=== PATIENT | male | born 1975 | race Caucasian/White ===

== ENCOUNTER 2016-04-17 16:54 | Inpatient (IN) | payer OTHER ==
[~2016-04-17] VITALS: Ht 180.3 cm; Wt 93.0 kg
[~2016-04-17 16:54] MED LIST: CYCL10TA6 PO; DIME1CAP2 PO; FLUO40CA8 PO; LEVE250T PO; PRED10TA PO; RXC30 PO
[2016-04-17] MEDS ORDERED: METHYLPREDNISOLONE 125 MG VIAL IV STA (17:21)
--- NOTE | 2016-04-17 17:25 | EMERGENCY ROOM VISIT NOTE ---
History Report prepared by Dory: Rebeca Carter Under the Supervision of: Dr. Isaak Benson M.D. First contact with patient: 17:09 Chief Complaint: DIZZY Stated Complaint: DIZZINESS History of Present Illness The patient is a 40 year old male who presents to the Emergency Room with complaints of persistent dizziness starting a few days REHAB THERAPIST. The patient's states that the patient has multiple sclerosis and is currently having a relapse. She states the patient is treated with solumedrol treatment about every 3-5 months as needed for his symptoms. The patient states that he has been having increase dizziness along with vision changes over the last few days causing him to fall today along with yesterday. He denies that he lost consciousness during his fall but states he did hit his head. The patient's states he has been sleeping more recently and that he has had increased weakness in his lower extremities compared to his baseline recently. She states his symptoms are similar to when he needs a solumedrol treatment in the past. The patient states that after receiving his solumedrol treatments his symptoms usually improve in about 3 days. The patient denies any current abdominal pain. Source of History: patient, spouse/significant other () Onset: few days REHAB THERAPIST Position: other (global) Timing: other (persistent) Associated Symptoms: + weakness (lower extermities), No LOC, No abdominal pain Note: Associated symptoms: vision changes Review of Systems All systems have been listed, reviewed, and are negative other than those previously mentioned. Please see Additional Medical History Sheet. Past Medical & Surgical Medical Problems: (1) RUBI (acute kidney injury) (2) Chronic pain syndrome (3) Depression (4) Encephalopathy (5) Exacerbation of multiple sclerosis (6) Hypercalcemia (7) Multiple sclerosis (8) Seizure disorder Family History Diabetes mellitus Hypertension Kidney stones Social History Smoking Status: Never Smoker Alcohol Use: none Drug Use: none Marital Status: Housing Status: lives with family Occupation Status: disabled Current/Historical Medications Scheduled Dimethyl Fumarate (Tecfidera), 240 MG PO Q12 Fluoxetine (Prozac), 40 MG PO DAILY Levetiracetam (Keppra), 2 TAB PO DAILY Oxycodone HCl (Oxycodone HCl), 30 MG PO Q6H Prednisone (Prednisone), 0 PO UD Scheduled PRN Cyclobenzaprine Hcl (Flexeril), 10 MG PO TID PRN for Pain Allergies Coded Allergies: Aspirin (Verified Allergy, Severe, HIVES/JES'S SYNDROME, 04/17/16) Given for fever while pt had varicella Physical Exam Vital Signs Date Time Temp Pulse Resp B/P Pulse Ox O2 Delivery O2 Flow Rate FiO2 04/17/16 21:37 Room Air 04/17/16 21:25 90 18 135/89 94 Room Air 04/17/16 19:51 81 16 143/98 95 Room Air 04/17/16 18:06 87 16 172/102 94 Room Air 04/17/16 17:52 88 04/17/16 17:00 36.8 87 20 140/88 97 Room Air Physical Exam GENERAL: Patient appears to be weak and slow to respond but is oriented and appropriate. SKIN: No erythema, pallor, cyanosis or rash HEENT: Normal head, pupils equal, reactive to light and accommodation. Ears normal. Oral cavity and posterior pharynx appear normal. Neck: Without adenopathy, no neck vein distention. LUNGS: Clear to auscultation. No wheezes, no rales, no rhonchi. HEART: No murmurs. No gallops. No rubs ABDOMEN: No masses, no rebound, no hepatomegaly or splenomegaly. EXTREMITIES: Patient has huma weakness in all four extremities, much more pronounced in lower extremities, and right arm is slightly stronger. NEUROLOGIC: Cranial nerves II-XII within normal limits. No gross motor sensory function deficits. Medical Decision & Procedures ER Provider Diagnostic Interpretation: X ray results are stated below per my interpretation and the radiologist's interpretation. CHEST ONE VIEW PORTABLE CLINICAL HISTORY: MS weakness dyspnea COMPARISON STUDY: January 2016 FINDINGS: Minimal infiltrate medial left base. Mild elevation left hemidiaphragm. Lungs otherwise appear clear. IMPRESSION: Small parenchymal infiltrate medial left base. Electronically signed by: Huma Dumont M.D. 04/17/2016 5:58 PM Dictated Date/Time: 04/17/2016 5:57 PM Laboratory Results 04/17/16 17:35 04/17/16 17:35 Test 04/17/16 17:35 04/17/16 18:50 04/17/16 22:16 Red Blood Count 4.66 M/uL (4.7-6.1) Mean Corpuscular Volume 86.5 fL (80-100) Mean Corpuscular Hemoglobin 30.0 pg (25-34) Mean Corpuscular Hemoglobin Concent 34.7 g/dl (32-36) RDW Standard Deviation 39.6 fL (36.4-46.3) RDW Coefficient of Variation 12.4 % (11.5-14.5) Mean Platelet Volume 10.3 fL (7.4-10.4) Anion Gap 9.0 mmol/L (3-11) Est Creatinine Clear Calc Drug Dose 78.2 ml/min Estimated GFR () 65.6 Estimated GFR (Non- 56.6 BUN/Creatinine Ratio 13.4 (10-20) Calcium Level 13.7 mg/dl (8.5-10.1) Total Bilirubin 0.7 mg/dl (0.2-1) Aspartate Amino Transf (AST/SGOT) 124 U/L (15-37) Alanine Aminotransferase (ALT/SGPT) 174 U/L (12-78) Troponin I < 0.015 ng/ml (0-0.045) Total Protein 7.8 gm/dl (6.4-8.2) Albumin 3.9 gm/dl (3.4-5.0) Globulin 3.9 gm/dl (2.5-4.0) Albumin/Globulin Ratio 1.0 (0.9-2) Urine Color DK YELLOW Urine Appearance CLEAR (CLEAR) Urine pH 6.5 (4.5-7.5) Urine Specific [place] 1.014 (1.000-1.030) Urine Protein NEG (NEG) Urine Glucose (UA) NEG (NEG) Urine Ketones TRACE (NEG) Urine Occult Blood NEG (NEG) Urine Nitrite NEG (NEG) Urine Bilirubin NEG (NEG) Urine Urobilinogen POS (NEG) Urine Leukocyte Esterase NEG (NEG) 25-Hydroxy Vitamin D Total 24.6 ng/ml (30-100) Parathyroid Hormone (Intact) 291.0 pg/mL (11.1-79.5) Hepatitis B Surface Antigen NEG (NEG) Hepatitis C Antibody NEG (NEG) Laboratory results as stated above per my review. Medications Administered Medications (Trade) Dose Ordered Sig/Jas Route Start Time Stop Time Status Last Admin Dose Admin Methylprednisolone Sodium Succinate (Solu-Medrol IV) 125 mg NOW STAT IV 04/17/16 17:21 04/17/16 17:22 DC 04/17/16 18:00 125 MG Ceftriaxone Sodium (Rocephin Inj) 1 gm NOW STAT IV 04/17/16 20:02 04/17/16 20:04 DC 04/17/16 20:41 1 GM ECG Indication: other (dizziness) Rate (beats per minute): 89 Rhythm: normal sinus Findings: no acute ischemic change, no ectopy, other (Minimum voltage criteria for LVH) ED Course 1708: Past medical records reviewed. The patient was evaluated in room B11. A complete history and physical examination was performed. 1720: Ordered Solu-Medrol IV 125 mg IV. 1847: I reevaluated the patient and he still appeared to be confused and the Solu-Medrol has not appeared to have any effect yet. 2001: Ordered Rocephin 1 gm IV. 2004: I reevaluated the patient and discussed his test results and that he would be admitted for further evaluation and management of his symptoms. 2039: I discussed the case with Dr. Perry VUONG Hospitalist. He agreed to evaluate the patient for further management and care. Medical Decision Nurses notes reviewed. Medical history sheet reviewed. Differential diagnosis includes but is not limited to: Metabolic disorder, infection and MS flair. Old records were reviewed. The patient has had multiple bouts similar to this in the past and has required admission with IV steroids. Multiple labs come imaging and EKG were obtained. The patient was given IV Solu -Medrol. Chest x-ray reveals a small left lower lobe infiltrate. White count is slightly elevated but less than it was in the past. Calcium is significantly elevated. The patient will require admission for the above problems. Case was discussed with the patient, and hospitalist. Consults Time Called: 1999 Consulting Physician: Dr. Perry VUONG Hospitalist Returned Call: 2039 I discussed the case with Dr. Perry VUONG Hospitalist. He agreed to evaluate the patient for further management and care. Impression Primary Impression: Exacerbation of multiple sclerosis Additional Impressions: Pneumonia Hyperkalemia Scribe Attestation The scribe's documentation has been prepared under my direction and personally reviewed by me in its entirety. I confirm that the note above accurately reflects all work, treatment, procedures, and medical decision making performed by me. Departure Information Dispostion Being Evaluated By Hospitalist Aryan Quintero M.D. (PCP) Patient Instructions My [facility] Problem Qualifiers
[2016-04-17 17:58] LABS: HEMATOCRIT 40.3 % (42-52); MEAN CELL VOLUME 86.5 fL (80-100); MEAN CORPUSCULAR HGB CONC 34.7 g/dl (32-36); MEAN PLATELET VOLUME 10.3 fL (7.4-10.4); PLATELET COUNT 326 K/uL (130-400); RED BLOOD COUNT 4.66 M/uL (4.7-6.1); WHITE BLOOD COUNT 11.86 K/uL (4.8-10.8)
--- NOTE | 2016-04-17 17:59 | DIAGNOSTIC IMAGING REPORT ---
CHEST ONE VIEW PORTABLE CLINICAL HISTORY: MS weakness dyspnea COMPARISON STUDY: January 2016 FINDINGS: Minimal infiltrate medial left base. Mild elevation left hemidiaphragm. Lungs otherwise appear clear. IMPRESSION: Small parenchymal infiltrate medial left base. Electronically signed by: Enrique Dumont M.D. 04/17/2016 5:58 PM Dictated Date/Time: 04/17/2016 5:57 PM
[2016-04-17] MEDS ORDERED: PRED10TA PO (18:12)
[2016-04-17 18:26] LABS: ALKALINE PHOSPHATASE 116 U/L (45-117); ALT/SGPT 174 U/L (12-78); AST/SGOT 124 U/L (15-37); BLOOD UREA NITROGEN 20 mg/dl (7-18); BUN/CREATININE RATIO 13.4 (10-20); CALCIUM 13.7 mg/dl (8.5-10.1); CARBON DIOXIDE 28 mmol/L (21-32); CHLORIDE 102 mmol/L (98-107); GLUCOSE 157 mg/dl (70-99); POTASSIUM 4.4 mmol/L (3.5-5.1); SODIUM 139 mmol/L (136-145)
[2016-04-17 19:03] LABS: URINE APPEARANCE CLEAR (CLEAR); URINE BILIRUBIN NEG (NEG); URINE COLOR DK YELLOW; URINE NITRITE NEG (NEG); URINE PH 6.5 (4.5-7.5); URINE SPECIFIC GRAVITY 1.014 (1.000-1.030); UROBILINOGEN POS (NEG); ZZUR CULT IF INDIC CLEAN CATCH NO
[2016-04-17 19:06] LABS: MANUAL MICROSCOPIC REQUIRED? NO; REVIEW REQ? NO
[2016-04-17] MEDS ORDERED: CEFTRIAXONE SOD INJ 1 GM ADDVIAL IV STA (20:02)
[2016-04-17 21:37] VITALS: Ht 180.3 cm; Wt 93.0 kg
[2016-04-17] MEDS ORDERED: ALUMINUM/MAGNESIUM/SIMETH (MAALOX MAX) 30 ML UDC PO PRN (22:15)
[2016-04-17] MEDS ORDERED: MAGNESIUM HYDROXIDE SUSP 30 ML UDC PO PRN (22:15)
[2016-04-17] MEDS ORDERED: ACETAMINOPHEN 325 MG TAB PO PRN (22:15)
[2016-04-17] MEDS ORDERED: POLYETHYLENE (MIRALAX) 17 GM PACK PO PRN (22:15)
[2016-04-17] MEDS ORDERED: ONDANSETRON INJ 2 MG/ML 2 ML VIAL IV PRN (22:15)
[2016-04-18] VITALS (7 sets, daily range): BP systolic 143–158; BP diastolic 71–94; PULSE 81–106; TEMP 36.5–37; O2SAT 93–97
--- NOTE | 2016-04-18 00:42 | History and Physical ---
History & Physical Date & Time of Service: Apr 18, 2016 at 00:30 Chief Complaint: Dizziness Primary Care Physician: Aryan Torres M.D. History of Present Illness Source: patient 40-year-old male, with a history of multiple sclerosis, who presents to the emergency department today with worsening lightheadedness and dizziness. He notes that this is been going on for the past 3 weeks, but got especially worse today which led him to come to the emergency department. He describes his dizziness, as "the room is spinning". He denies tinnitus, hearing changes. He notes that he has been having difficulty with balance. He notes that this does worsen with his MS flares. He does have some baseline gait disturbance at baseline, noting that when he walks he does tend to have some imbalance towards the left side. This is also worsened since the past 3 weeks. He does note that he has baseline left-sided weakness in both his upper and lower extremities at baseline. He denies any sensory impairment. With his dizziness, he also has blurred vision, but denies double vision. He feels that his speech is good, and has not had difficulty forming words, articulating words, or understanding speech. Prior to the onset of the symptoms, he feels that he was in his usual state of health. He denies any pain. He denies any fevers chills or night sweats He says that his appetite has been good. He has not had any difficulty with urination. He has not had any diarrhea or constipation. Past Medical/Surgical History Medical Problems: (1) Chronic pain syndrome Status: Chronic (2) Depression Status: Chronic (3) Multiple sclerosis Status: Chronic (4) Seizure disorder Status: Chronic Family History Diabetes mellitus Hypertension Kidney stones Social History Smoking Status: Never Smoker Smokeless Tobacco Use: No Alcohol Use: none Drug Use: none Marital Status: Housing status: lives with family Occupational Status: disabled Immunizations History of Influenza Vaccine: Yes History of Tetanus Vaccine?: UTD Tetanus Immunization Date: Feb 02, 2006 History of Pneumococcal: No History of Hepatitis B Vaccine: No Multi-Drug Resistant Organisms History of MDRO: No Allergies Coded Allergies: Aspirin (Verified Allergy, Severe, HIVES/JES'S SYNDROME, 04/17/16) Given for fever while pt had varicella Home Medications Scheduled Dimethyl Fumarate (Tecfidera), 240 MG PO Q12 Fluoxetine (Prozac), 40 MG PO DAILY Levetiracetam (Keppra), 2 TAB PO DAILY Oxycodone HCl (Oxycodone HCl), 30 MG PO Q6H Prednisone (Prednisone), 0 PO UD Scheduled PRN Cyclobenzaprine Hcl (Flexeril), 10 MG PO TID PRN for Pain Review of Systems A 10 point review of systems was negative unless stated above in the history of present illness Physical Exam Vital Signs Date Time Temp Pulse Resp B/P Pulse Ox O2 Delivery O2 Flow Rate FiO2 04/18/16 00:21 89 18 140/86 94 Room Air 04/17/16 22:38 93 16 147/86 94 Room Air 04/17/16 21:37 Room Air 04/17/16 21:25 90 18 135/89 94 Room Air 04/17/16 19:51 81 16 143/98 95 Room Air 04/17/16 18:06 87 16 172/102 94 Room Air 04/17/16 17:52 88 04/17/16 17:00 36.8 87 20 140/88 97 Room Air General Appearance: WD/WN, no apparent distress, + pertinent finding (patient is overall tired appearing, does fall asleep easily unless stimulated to stay awake but answers questions appropriately) Head: normocephalic, atraumatic Eyes: PERRL (no rapid afferent pupillary defect), + pertinent finding (patient tracks but I'm movements are quite slow and leg behind movement of finger, there is no nystagmus) ENT: hearing grossly normal, pharynx normal Neck: no adenopathy, no JVD Respiratory/Chest: chest non-tender, lungs clear, normal breath sounds Cardiovascular: regular rate, rhythm, no gallop, no murmur Abdomen/GI: normal bowel sounds, non tender, soft Back: normal inspection, no CVA tenderness, no muscle spasm Extremities/Musculoskelatal: no calf tenderness, no pedal edema, + pertinent finding (left-sided weakness in the lower extremity, normal sensation) Neurologic/Psych: alert, normal mood/affect, oriented x 3 (patient is slow to respond, but can eventually answer correctly), + abnormal cerebellar tests ( patient has past pointing, though this may be due to weakness rather than cerebellar dysfunction) Skin: warm/dry, + pallor Lymphatic: no adenopathy Diagnostics Laboratory Results Results Past 24 Hours Test 04/17/16 17:35 04/17/16 18:50 04/17/16 22:16 04/17/16 23:16 Range/Units White Blood Count 11.86 4.8-10.8 K/uL Red Blood Count 4.66 4.7-6.1 M/uL Hemoglobin 14.0 14.0-18.0 g/dL Hematocrit 40.3 42-52 % Mean Corpuscular Volume 86.5 80-100 fL Mean Corpuscular Hemoglobin 30.0 25-34 pg Mean Corpuscular Hemoglobin Concent 34.7 32-36 g/dl RDW Standard Deviation 39.6 36.4-46.3 fL RDW Coefficient of Variation 12.4 11.5-14.5 % Platelet Count 326 130-400 K/uL Mean Platelet Volume 10.3 7.4-10.4 fL Sodium Level 139 136-145 mmol/L Potassium Level 4.4 3.5-5.1 mmol/L Chloride Level 102 98-107 mmol/L Carbon Dioxide Level 28 21-32 mmol/L Anion Gap 9.0 3-11 mmol/L Blood Urea Nitrogen 20 7-18 mg/dl Creatinine 1.50 0.60-1.40 mg/dl Est Creatinine Clear Calc Drug Dose 78.2 ml/min Estimated GFR () 65.6 Estimated GFR (Non- 56.6 BUN/Creatinine Ratio 13.4 10-20 Random Glucose 157 70-99 mg/dl Calcium Level 13.7 8.5-10.1 mg/dl Total Bilirubin 0.7 0.2-1 mg/dl Aspartate Amino Transf (AST/SGOT) 124 15-37 U/L Alanine Aminotransferase (ALT/SGPT) 174 12-78 U/L Alkaline Phosphatase 116 45-117 U/L Troponin I < 0.015 0-0.045 ng/ml Total Protein 7.8 6.4-8.2 gm/dl Albumin 3.9 3.4-5.0 gm/dl Globulin 3.9 2.5-4.0 gm/dl Albumin/Globulin Ratio 1.0 0.9-2 Urine Color DK YELLOW Urine Appearance CLEAR CLEAR Urine pH 6.5 4.5-7.5 Urine Specific [place] 1.014 1.000-1.030 Urine Protein NEG NEG Urine Glucose (UA) NEG NEG Urine Ketones TRACE NEG Urine Occult Blood NEG NEG Urine Nitrite NEG NEG Urine Bilirubin NEG NEG Urine Urobilinogen POS NEG Urine Leukocyte Esterase NEG NEG 25-Hydroxy Vitamin D Total 24.6 30-100 ng/ml Parathyroid Hormone (Intact) 291.0 11.1-79.5 pg/mL Hepatitis B Surface Antigen NEG NEG Lactic Acid Level 1.0 0.4-2.0 mmol/L Ammonia 11.0 11-32 umol/L Microbiology Results 04/17/16 Blood Culture, Received Pending 04/17/16 Blood Culture, Received Pending Diagnostic Radiology CHEST ONE VIEW PORTABLE CLINICAL HISTORY: MS weakness dyspnea COMPARISON STUDY: January 2016 FINDINGS: Minimal infiltrate medial left base. Mild elevation left hemidiaphragm. Lungs otherwise appear clear. IMPRESSION: Small parenchymal infiltrate medial left base. Electronically signed by: Enrique Dumont M.D. 04/17/2016 5:58 PM Dictated Date/Time: 04/17/2016 5:57 PM Impression Assessment and Plan 40-year-old male, with weakness and vertigo He has a background of MS. He also presents with acute kidney injury, hypercalcemia, and transaminitis as well as new left lower lobe pneumonia. Our plan for him is as follows: Dizziness/vertigo - Likely multifactorial ?Demyelination? Patient notes frequent getting dizzy during his MS flares Infective: Left lower lobe pneumonia Metabolic/Endocrine: Uremia, Acute transaminitis, hypercalcemia 13.7, PTH 291 - Based on history, the dizziness can occur with MS flares. However there are other possible etiologies, and as such would hold off on administering high doses of systemic steroids until the patient has been evaluated by neurology. - Continue IV Solumedrol 125 mg until neurology evaluation. - Neurology consultation with Dr. Armijo, who has seen the patient prior Recommendations on whether additional imaging is indicated at this time is appreciated Recommendations on steroid dosing appreciated Multiple sclerosis - Patient takes cyclic prednisone. Currently on day 4/6 of 60 mg prednisone daily. Discontinue, as patient to be getting IV Solu-Medrol - Continue Tecfidera - Continue Keppra Keppra level has been ordered - Neurology consulted for further recommendations on imaging studies and steroid dosing Left lower lobe pneumonia - 1 dose of Rocephin given in the emergency department - We will continue with Rocephin and azithromycin daily - Patient currently saturating well on room air - Administer oxygen by nasal cannula as needed to keep saturations above 94% - Follow daily CBC Acute kidney injury - Creatinine 1.5 Baseline 0.8-0.9 - 1 L normal saline bolus Normal saline 125 ml/hr maintenance - Repeat daily BMP Hypercalcemia - Currently 13.7 Previous calcium levels were reviewed in the EMR. I have never been this high - PTH elevated 291; vitamin D low at 26 - Consistent with primary hyperparathyroidism (possibly secondary though unlikely that he has chronic kidney disease) - IV rehydration as above - Zoledronic acid 4 mg IV stat - Calcitonin 4 mg/kg every 12 hours 48 hours and reassess - Consult endocrinology for further recommendations Transaminitis - AST elevated at 124; ELT elevated at 174 - Normal serum ammonia - Patient denies alcohol use - Serum ammonia level within normal limits - Check hepatitis panel - Consider hepatic ultrasound DVT prophylaxis - Heparin 5000 units subcutaneous twice a day CODE STATUS - Level I full code - Patient has designated Dana Ramirez to make decisions for him if he cannot make him for himself Disposition - Patient requires telemetry monitoring due to elevated calcium levels - OT and PT orders have been placed Resident Physician Supervision Note: I was present with [Name of resident] during the history and exam. I discussed the case with the resident and agree with the findings and plan as documented in the note. Any exceptions or clarifications are listed here: Pt seen examined - case discussed with ER attending and resident He is currently being treated for an MS flare and has had progressive weakness and somnolence Initial labs revealed a calcium level of 13.7 and a markedly elevated PTH with RUBI PNM on initial imaging O/E AAO x 3 although lethargic S1.2 R CTAB NT, ND Globally weak P: Treat hypercalcemia and consult neuro - will hold off on treating an MS flare pending correction of his calcium as this may currently account for the majority of his symptoms IVF and trend BMP Treat for PNM as above Documented By: Lionel Amador Level of Care Telemetry Advanced Directives Existing Living Will: No Existing Power of V/Stol Landing Signal Officer: No Resuscitation Status FULL RESUSCITATION VTE Prophylaxis VTE Risk Assessment Done? Y/N: Yes Risk Level: Moderate Given or contraindicated: Unfractionated heparin SQ
[2016-04-18] MEDS ORDERED: ZOLEDRONIC ACID INJ 4 MG in SODIUM CHLORIDE 0.9% 100ML 100 ML IV ONE (00:45)
[2016-04-18] MEDS ORDERED: AZITHROMYCIN IV 500 MG in DEXTROSE 5% 250ML 250 ML IV ONE (00:45)
[2016-04-18] MEDS ORDERED: SODIUM CHLORIDE 0.9% 1000ML 1,000 ML IV SCH (00:45)
[2016-04-18] MEDS: SODIUM CHLORIDE 0.9% 1000ML 1,000 ML IV SCH ×3 (01:47→17:53)
[2016-04-18] MEDS ORDERED: CALCITONIN SALMON 400 INTER.UNIT/2 ML SQ ONE (04:17)
[2016-04-18 06:40] LABS: BASO % 0.1 %; BASO ABS # 0.01 K/uL (0-0.2); COMPLETE YES; HEMATOCRIT 36.2 % (42-52); IG% 0.6 %; LYMPH % 4.7 %; LYMPH ABS # 0.84 K/uL (1.2-3.4); MEAN CELL VOLUME 87.7 fL (80-100); MEAN CORPUSCULAR HEMOGLOBIN 29.5 pg (25-34); MEAN CORPUSCULAR HGB CONC 33.7 g/dl (32-36); MEAN PLATELET VOLUME 10.3 fL (7.4-10.4); MONO % 6.9 %; NEUT % 87.7 %; PLATELET COUNT 310 K/uL (130-400); RED BLOOD COUNT 4.13 M/uL (4.7-6.1); WHITE BLOOD COUNT 17.77 K/uL (4.8-10.8)
[2016-04-18 06:46] LABS: INR 0.9 (0.9-1.1)
[2016-04-18 07:19] LABS: ALB/GLOB RATIO 1.1 (0.9-2); BUN/CREATININE RATIO 12.6 (10-20); CALCIUM 12.5 mg/dl (8.5-10.1); CREATININE 1.4 mg/dl (0.60-1.40)
[2016-04-18] MEDS: CEFTRIAXONE SOD INJ 1 GM in DEXTROSE 5% ADD-VANTAGE 50ML 50 ML IV SCH (08:03)
[2016-04-18] MEDS: LEVETIRACETAM 250 MG TAB PO SCH (08:04)
[2016-04-18] MEDS: FLUOXETINE HCL 20 MG CAP PO SCH (08:04)
[2016-04-18] MEDS: DIMETHYL FUMARATE 240 MG PO SCH ×2 (08:05→21:02)
[2016-04-18] MEDS: CALCITONIN SALMON 400 INTER.UNIT/2 ML SQ SCH ×2 (08:19→21:02)
[2016-04-18] MEDS: HEPARIN SOD 5000 UNIT/0.5 ML CARP SQ SCH ×2 (08:22→21:00)
[2016-04-18] MEDS ORDERED: METHYLPREDNISOLONE IV 125 MG in SYRINGE 0 ML IV SCH (09:00)
[2016-04-18] MEDS ORDERED: METHYLPREDNISOLONE IV 1,000 MG in DEXTROSE 5% 250ML 250 ML IV SCH (09:00)
[2016-04-18] MEDS ORDERED: OXYCODONE HCL IR 30 MG TAB (IMMEDIATE RELEASE) PO PRN (14:15)
--- NOTE | 2016-04-18 15:42 | CONSULTATION REPORT ---
DATE OF CONSULTATION: 04/18/2016 NEUROLOGY CONSULTATION FOR: Lionel Amador MD. SUBJECTIVE: Mazin is 40 years old, is a former patient of my now retired partner, Dr. Nielson and is known into Dr. Torres's a medical practice in the [place] area. I have seen him episodically over the past [address] Nielson retired and have followed him for 2 problems, i.e., a seizure disorder that was manifested in the remote past and is still a little vague history nowak, but for which he is on Keppra and has done well without any recurrent events. The second and more important issue is his multiple sclerosis which is manifested by a chronic left hemiparesis and occasional flareups of symptoms of worsening hemiparesis and vague disequilibrium over the years, many of which are associated with acute medical illnesses such as infections. He has been on Tecfidera for about 2-3 years now. He has never had any laboratory issues, although unfortunately he is not really very compliant in follow up with outpatient visits or laboratory studies and he is now in for evaluation of disequilibrium, vertigo and apparently contacted his [place] primary care group last week and was placed on some oral prednisone. He has done this in the past, but I was not aware of this. He thinks he got a little better but not at the rate that he usually does on this treatment and brought himself into the ER because of real vertigo sensation without tinnitus, hearing loss, etc. It was felt this might be an MS flare, but again on laboratory studies he was found to have hypercalcemia and elevated PTH level, all consistent with hyperparathyroidism and a mild degree of renal failure and some hepatic dysfunction. Thereis a question of a pneumonia as well. He is now in the hospital on some low dose IV steroids treatment fot his hyperparathyroidism and on certriaxone for assumed pneumonia with an elevated wbc that might reflect eithter the infectionof recent ingestion of steroids. Neurology has been consulted regarding imaging studies and a number of other consultants are getting get involved including endocrinology. PAST MEDICAL HISTORY: Reveals some chronic pain issues due to, I believe lumbar spine surgery; depression, multiple sclerosis and now quiescent seizure disorder. FAMILY HISTORY: Positive for diabetes, hypertension, kidney disease. SOCIAL HISTORY: Reveals him to be a never smoker. He does not consume ethanol. He is . He lives with his family. He is disabled and has not worked in years. IMMUNIZATIONS: Up-to-date. He has no multidrug resistant organism history. ALLERGIES: HE LISTS ALLERGIES TO ASPIRIN. MEDICATIONS: Include Tecfidera 240/12 ours, he has really tolerated this well over the years; fluoxetine; Keppra 500 mg 2 tablets daily; oxycodone 30 mg every 6 hours and prednisone, apparently now on an oral taper, but also on Solu-Medrol, I believe 125 mg daily, after admission. REVIEW OF SYSTEMS: Reveals a vague malaise. No muscle cramping no real fever, sweats or chills. No recent bladder infections, no new issues ____ head, eyes, ears, nose and throat other than the vertigo; no cardiovascular, pulmonary, gastrointestinal, genitourinary, or musculoskeletal problems at least none that he will admit to other than his chronic back pain and left-sided weakness with a footdrop. PHYSICAL EXAMINATION: VITAL SIGNS: On admission, his blood pressure 140/86, pulse was 89 and regular, respirations were 18. He was afebrile. GENERAL: He was well developed, well nourished, appeared his stated age. He appeared to be somewhat fatigued and in the ER was falling asleep readily. HEENT: Revealed no particular nystagmus. I did not find a field cut. He was pretty lethargic last night, so the exam was limited. NECK: There were no carotid bruits. LUNGS: Clear. HEART: Had a regular rhythm. ABDOMEN: Soft, nontender. There is no organomegaly. BACK: Normal to inspection. EXTREMITIES: Free of edema. There was no arthropathy, rash or peripheral pulse issues. NEUROLOGIC: Today, he is awake, alert, has mild dysarthria of speech. No nystagmus. Normal visual gama. Normal facial motility and strength with the exception of perhaps a slight left facial asymmetry. There is no loss of facial sensation. Tongue protrudes in the midline. He has a left hemiparesis with a drift to his left arm and clumsiness and reduced facility of movements in the left leg. He has some hyperreflexia on that side. The toe side is upgoing, but it has been for years and there is increased tone, but none of this looks a whole lot of different than his baseline. On the right, I do not see any particular abnormalities. Reflexes are fine. Toes flexor strength is good. Sensation seems to be intact to all primary modalities with the possible exception of some vibratory loss distally over the left leg. Looking over the chart and the laboratory studies, at this point I am not going to recommend that we do an MRI with and without contrast and I would not even do a noncontrast MRI as I do not think it is going to change what we do. I doubt that this is a true flare of his MS, I think this is a flareup of his old symptoms related to the hypercalcemia. The vertigo however is new so at some point we will likely do imaging but even if that were an MS flare, I do not think there is much is going to take precedence over the hypercalcemia and hyperparathyroidism, at this point. I would not do an aggressive steroid course unless it is felt that part of the treatment of his hypercalcemia is going to be the use of prednisone or IV Solu-Medrol, and I would defer to the envelope sealing machine operator on this particular issue. If only treating assumed ms I would go with solumedrol 125, then 100, then 80, then 60, then 40 then 20 and stop over the next four to five days. The question of what is going on in his liver is not answered. I do not think this is a Tecfidera as he has never had this before, but it is possible that it could be. This needs assessed and if the liver enzymes continue to rise, we may end up having to stop the Tecfidera and see how things go. For now, I continue it, use steroids only as per the needs of endocrinology or as outlined above for his ms and hold imaging studies until renal function becomes more normal. I will check back with him periodically and certainly will see him every day while he is here in the hospital. ERIC
[2016-04-18] MEDS ORDERED: FUROSEMIDE INJ 20 MG in SYRINGE 0 ML IV SCH (18:00)
[2016-04-18 19:10] LABS: BUN/CREATININE RATIO 10.9 (10-20); CALCIUM 11.2 mg/dl (8.5-10.1); CREATININE 1.6 mg/dl (0.60-1.40); POTASSIUM 3.8 mmol/L (3.5-5.1)
--- NOTE | 2016-04-18 21:50 | Family Medicine Progress Note ---
Progress Note Date of Service Apr 18, 2016. Subjective Pt evaluation today including: conversation w/ patient, physical exam, chart review, lab review, review of studies, review of inpatient medication list Voiding: no voiding problems Mr Ramirez was unaware of why he was in hospital. He confirms he has felt dizzy for the last few days but cannot really remember anything. I called his in the evening who confirmed story of generalized muscle weakness, dizziness and they felt he was having another flare of his MS so brought him in to the ER. He has not been eating or drinking well for the last few days. No coughing or shortness of breath to suggest pneumonia. She was concerned about PML given he is on Tecfidera. Reassured that he is improving when she called him therefore much more likely due to hypercalcemia +/- MS. Lymphocytes >500mm3. Constitutional: No chills, No fever Respiratory: No cough All Other Systems: Reviewed and Negative Medications Current Inpatient Medications Medications (Trade) Dose Ordered Sig/Jas Route Start Time Stop Time Status Last Admin Dose Admin Acetaminophen (Tylenol Tab) 650 mg Q4H PRN PO 04/17/16 22:15 05/17/16 22:14 Al Hydrox/Mg Hydrox/Simethicone (Maalox Max Susp) 15 ml Q4H PRN PO 04/17/16 22:15 05/17/16 22:14 Magnesium Hydroxide (Milk Of Magnesia Susp) 30 ml Q6H PRN PO 04/17/16 22:15 05/17/16 22:14 Polyethylene (Miralax Powder Packet) 17 gm DAILY PRN PO 04/17/16 22:15 05/17/16 22:14 Ondansetron HCl (Zofran Inj) 4 mg Q6H PRN IV 04/17/16 22:15 05/17/16 22:14 Heparin Sodium (Porcine) (Heparin Sq 5000 Unit/0.5ml) 5,000 unit Q12 SQ 04/18/16 09:00 05/18/16 08:59 04/18/16 08:22 5,000 UNIT Fluoxetine HCl (Prozac Cap) 40 mg DAILY PO 04/18/16 09:00 05/18/16 08:59 04/18/16 08:04 40 MG Levetiracetam (Keppra Tab) 500 mg DAILY PO 04/18/16 09:00 05/18/16 08:59 04/18/16 08:04 500 MG Non-Formulary Medication 240 mg 240 mg Q12 PO 04/18/16 09:00 05/18/16 08:59 UNV Sodium Chloride 1,000 ml @ 125 mls/hr Q8H IV 04/18/16 01:45 05/18/16 01:44 04/18/16 10:21 125 MLS/HR Azithromycin 500 mg/Dextrose 255 ml @ 125 mls/hr DAILY@2200 IV 04/18/16 22:00 04/25/16 21:59 Ceftriaxone Sodium 1 gm/ Dextrose 50 ml @ 100 mls/hr Q24H IV 04/18/16 09:00 04/25/16 08:59 04/18/16 08:03 100 MLS/HR Methylprednisolone Sodium Succinate/ Syringe (Solu-Medrol IV/ Syringe) 2 ml @ 1.5 mls/min DAILY IV 04/18/16 09:00 05/18/16 08:59 04/18/16 08:03 1.5 MLS/MIN Calcitonin [place] ([place] Inj) 400 inter.unit BID SQ 04/18/16 09:00 04/20/16 09:01 04/18/16 08:19 400 INTER.UNIT Oxycodone HCl (Roxicodone Immediate Rel Tab) 30 mg Q4H PRN PO 04/18/16 14:15 05/02/16 14:14 Objective Vital Signs Date Time Temp Pulse Resp B/P Pulse Ox O2 Delivery O2 Flow Rate FiO2 04/18/16 16:15 36.7 93 16 152/90 94 Room Air 04/18/16 16:00 Room Air 04/18/16 12:04 Room Air 04/18/16 11:24 37.0 103 16 145/89 94 Room Air 04/18/16 08:07 36.7 91 16 156/71 97 Room Air 04/18/16 08:00 Room Air 04/18/16 04:00 Room Air 04/18/16 00:45 Room Air 04/18/16 00:38 36.5 93 16 158/94 93 Room Air 04/18/16 00:21 89 18 140/86 94 Room Air 04/17/16 22:38 93 16 147/86 94 Room Air 04/17/16 21:37 Room Air 04/17/16 21:25 90 18 135/89 94 Room Air 04/17/16 19:51 81 16 143/98 95 Room Air 04/17/16 18:06 87 16 172/102 94 Room Air 04/17/16 17:52 88 Physical Exam General Appearance: WD/WN, no apparent distress Eyes: EOMI (sarccadic movement with dizziness) Respiratory/Chest: chest non-tender, lungs clear, normal breath sounds, no respiratory distress, no accessory muscle use Cardiovascular: regular rate, rhythm, no murmur Abdomen: normal bowel sounds, non tender, soft Extremities: no pedal edema, no calf tenderness, normal capillary refill Neurologic/Psychiatric: senior integration developer II-XII nml as tested (sarccadic eye movements with associated dizziness, no facial numbness, no facial droop), + motor weakness ( left sided chronic upper and lower limbs), + sensory deficit (reduced sensation on left sided), + pertinent finding (chronic left sided foot droop) Skin: normal color, warm/dry, no rash Laboratory Results 04/18/16 06:00 Red Blood Count 4.13, Mean Corpuscular Volume 87.7, Mean Corpuscular Hemoglobin 29.5, Mean Corpuscular Hemoglobin Concent 33.7, Mean Platelet Volume 10.3, Neutrophils (%) (Auto) 87.7, Lymphocytes (%) (Auto) 4.7, Monocytes (%) (Auto) 6.9, Eosinophils (%) (Auto) 0.0, Basophils (%) (Auto) 0.1, Neutrophils # (Auto) 15.60, Lymphocytes # (Auto) 0.84, Monocytes # (Auto) 1.22, Eosinophils # (Auto) 0.00, Basophils # (Auto) 0.01 Test 04/17/16 17:35 04/17/16 18:50 04/17/16 22:16 04/17/16 23:16 Troponin I < 0.015 ng/ml (0-0.045) Urine Color DK YELLOW Urine Appearance CLEAR (CLEAR) Urine pH 6.5 (4.5-7.5) Urine Specific [place] 1.014 (1.000-1.030) Urine Protein NEG (NEG) Urine Glucose (UA) NEG (NEG) Urine Ketones TRACE (NEG) Urine Occult Blood NEG (NEG) Urine Nitrite NEG (NEG) Urine Bilirubin NEG (NEG) Urine Urobilinogen POS (NEG) Urine Leukocyte Esterase NEG (NEG) 25-Hydroxy Vitamin D Total 24.6 ng/ml (30-100) Parathyroid Hormone (Intact) 291.0 pg/mL (11.1-79.5) Hepatitis B Surface Antigen NEG (NEG) Hepatitis C Antibody NEG (NEG) Lactic Acid Level 1.0 mmol/L (0.4-2.0) Ammonia 11.0 umol/L (11-32) Test 04/18/16 06:00 04/18/16 17:23 White Blood Count 17.77 K/uL (4.8-10.8) Red Blood Count 4.13 M/uL (4.7-6.1) Hemoglobin 12.2 g/dL (14.0-18.0) Hematocrit 36.2 % (42-52) Mean Corpuscular Volume 87.7 fL (80-100) Mean Corpuscular Hemoglobin 29.5 pg (25-34) Mean Corpuscular Hemoglobin Concent 33.7 g/dl (32-36) Platelet Count 310 K/uL (130-400) Mean Platelet Volume 10.3 fL (7.4-10.4) Neutrophils (%) (Auto) 87.7 % Lymphocytes (%) (Auto) 4.7 % Monocytes (%) (Auto) 6.9 % Eosinophils (%) (Auto) 0.0 % Basophils (%) (Auto) 0.1 % Neutrophils # (Auto) 15.60 K/uL (1.4-6.5) Lymphocytes # (Auto) 0.84 K/uL (1.2-3.4) Monocytes # (Auto) 1.22 K/uL (0.11-0.59) Eosinophils # (Auto) 0.00 K/uL (0-0.5) Basophils # (Auto) 0.01 K/uL (0-0.2) RDW Standard Deviation 40.1 fL (36.4-46.3) RDW Coefficient of Variation 12.4 % (11.5-14.5) Immature Granulocyte % (Auto) 0.6 % Immature Granulocyte # (Auto) 0.10 K/uL (0.00-0.02) Prothrombin Time 10.0 SECONDS (9.0-12.0) Prothromb Time International Ratio 0.9 (0.9-1.1) Est Creatinine Clear Calc Drug Dose 83.8 ml/min Total Bilirubin 0.5 mg/dl (0.2-1) Aspartate Amino Transf (AST/SGOT) 67 U/L (15-37) Alanine Aminotransferase (ALT/SGPT) 165 U/L (12-78) Alkaline Phosphatase 97 U/L (45-117) Total Protein 6.6 gm/dl (6.4-8.2) Albumin 3.4 gm/dl (3.4-5.0) Globulin 3.2 gm/dl (2.5-4.0) Albumin/Globulin Ratio 1.1 (0.9-2) Assessment and Plan 40-year-old male with multiple sclerosis admitted for muscle weakness and vertigo. Hypercalcemia, PTH elevated suggestive of hyperparathyroidism (new diagnosis). RUBI and transaminitis and possible left lower lobe pneumonia on CXR. Primary hyperparathyroidism - Discussed with Dr Garcia who agreed with below plan. - Aim Ca <11.5 - Zoledronic acid given 04/18/16 - NSS 150 MLS/HR - Calcitonin 4 mg/kg every 12 hours 48 hours - Lasix 20mg IV Q8H (stopped after Ca coming down well) - serial Calcium, BMP measurements Dizziness/vertigo - Hypercalcemia vs. MS. Will treat hypercalcemia and if still present despite Ca coming down. Multiple sclerosis - Patient takes cyclic prednisone. Currently on day 4/6 of 60 mg prednisone daily. Discontinue, as patient to be getting IV Solu-Medrol - Appreciate neurology recommendations - Will taper dose of methylprednisone - solumedrol 125, then 100, then 80, then 60, then 40 then 20 - Continue Tecfidera - Continue Keppra Keppra level has been ordered Left lower lobe pneumonia - stop azithromycin will continue ceftriaxone. Unlikely pneumonia but given patient is immunosuppressed will treat for 5 days. - Patient currently saturating well on room air - Administer oxygen by nasal cannula as needed to keep saturations above 94% Acute kidney injury - Creatinine 1.5 Baseline 0.8-0.9 - Normal saline 150 ml/hr - Repeat daily BMP Transaminitis - AST elevated at 124; ELT elevated at 174 - coming down well. possibly from muscle breakdown from previous fall. Continue to trend. Will investigate further if not returning to normal. DVT prophylaxis - Heparin 5000 units SC switch from BID to TID CODE STATUS - Level I full code - Patient has designated Dana Ramirez (his ) to make decisions for him if he cannot make him for himself Disposition - Continued inpatient stay due to multiple IV medications used - PT and OT. Discharge planning. Resident Physician Supervision Note: I was present with PGY2 Dr. Jean Chau during the history and exam. I discussed the case with the resident and agree with the findings and plan as documented in the note. Any exceptions or clarifications are listed here: none. Pt feels "much better." Vertigo resolved. Eating well. Denies cough or sob. No fever. VSS, afebrile, mildly tachy gen - nad, looks well mouth - MMM heart - tachy, s1, s2 lungs - CTA b/l, scant dry rales left base abd - soft, NT neuro - baseline left foot drop; no tremors; strength 5/5 x 4 exts labs - Calcium now <12.5 PTH 291 A/P: 1. hypercalcemia - improved; looks to be 2nd to primary hyperparathyroidism. Agree with fluids. s/p bisphosphanate. 2. vertigo / dizziness - resolved. Unclear if 2nd to #1 or MS. 3. MS - on tapering IV steroids. 4. ? pneumonia - clinical picture not c/w such. Would d/c abx. Documented By: Jean Briceno MD Resident Tracking Resident Involvement: Resident Care Provided Care Provided: Adult [facility] Medicine
[2016-04-18] MEDS ORDERED: AZITHROMYCIN IV 500 MG in DEXTROSE 5% 250ML 250 ML IV SCH (22:00)
[2016-04-19] MEDS: SODIUM CHLORIDE 0.9% 1000ML 1,000 ML IV SCH ×4 (01:04→20:33)
[2016-04-19 04:10] VITALS: BP 142/81; PULSE 96; O2SAT 97
[2016-04-19 06:43] LABS: BASO % 0.1 %; BASO ABS # 0.02 K/uL (0-0.2); COMPLETE YES; EOS % 0.2 %; HEMATOCRIT 36.7 % (42-52); IG% 0.7 %; LYMPH ABS # 1.57 K/uL (1.2-3.4); MEAN CELL VOLUME 87.8 fL (80-100); MEAN CORPUSCULAR HEMOGLOBIN 30.1 pg (25-34); MEAN CORPUSCULAR HGB CONC 34.3 g/dl (32-36); MEAN PLATELET VOLUME 10.4 fL (7.4-10.4); MONO % 7.6 %; NEUT % 80.4 %; PLATELET COUNT 277 K/uL (130-400); RED BLOOD COUNT 4.18 M/uL (4.7-6.1); WHITE BLOOD COUNT 14.29 K/uL (4.8-10.8)
[2016-04-19 07:28] LABS: ALB/GLOB RATIO 1.1 (0.9-2); BUN/CREATININE RATIO 11.3 (10-20); CALCIUM 10.6 mg/dl (8.5-10.1); CREATININE 1.2 mg/dl (0.60-1.40); POTASSIUM 3.1 mmol/L (3.5-5.1)
[2016-04-19 07:58] VITALS: BP 144/87; PULSE 87; TEMP 36.5; O2SAT 97
[2016-04-19] MEDS: CEFTRIAXONE SOD INJ 1 GM in DEXTROSE 5% ADD-VANTAGE 50ML 50 ML IV SCH (08:12)
[2016-04-19] MEDS: LEVETIRACETAM 250 MG TAB PO SCH (08:19)
[2016-04-19] MEDS: DIMETHYL FUMARATE 240 MG PO SCH ×2 (08:19→20:34)
[2016-04-19] MEDS: FLUOXETINE HCL 20 MG CAP PO SCH (08:20)
[2016-04-19] MEDS: HEPARIN SOD 5000 UNIT/0.5 ML CARP SQ SCH ×2 (08:21→17:18)
[2016-04-19] MEDS: CALCITONIN SALMON 400 INTER.UNIT/2 ML SQ SCH ×2 (08:23→20:34)
[2016-04-19] MEDS ORDERED: METHYLPREDNISOLONE IV 100 MG in SYRINGE 0 ML IV ONE (09:00)
--- NOTE | 2016-04-19 10:35 | DIAGNOSTIC IMAGING REPORT ---
CHEST 2 VIEWS ROUTINE CLINICAL HISTORY: Possible left lower lobe pneumonia. Encephalopathy. COMPARISON STUDY: Chest radiograph April 17, 2016. FINDINGS: Lung volumes are normal. Lungs are clear. There is no pneumothorax or pleural effusion. Cardiac size is normal. Mediastinal contours are normal. Left basilar opacity shown on prior exam has likely resolved. IMPRESSION: No acute cardiopulmonary findings. Electronically signed by: Vinh Varela M.D. 04/19/2016 10:34 AM Dictated Date/Time: 04/19/2016 10:33 AM
--- NOTE | 2016-04-19 11:50 | PROGRESS NOTE ---
DATE: 04/19/2016 DATE: 04/19/2016. Mazin looks to me to be back almost to his baseline. He has had no more vertigo. His left-sided weakness is stable. He is able to ambulate around the room. He feels in general well. His hypercalcemia seems to be responding, and Dr. Garcia's on board. He still has a slight elevation of his creatinine above his normal baseline and until this comes down and the calcium gets more squared away I do not think we really need to do a contrast MRI but at some point during his hospital stay I think we can go ahead with one to settle the issue whether this was truly a flare of the MS or simply a toxic metabolic induced exacerbation of some of his old symptomatology. The vertigo is a little atypical for his typical flareups so I am not sure if it may not have another cause anyway. Whatever the case it is resolved. His exam is back to his baseline. There was some concern on his 's part about PML but I think this has been negated by his improvement and was highly unlikely anyway. While the risk for PML is present with Tecfidera. His last VIDA virus titer was normal and PML is probably not going to present in this fashion particularly with resolution of symptoms. He is on a prednisone taper. He is on IV Solu-Medrol, but this could easily be switched to oral prednisone 100 mg and 80, 60, 40, 20, 10 and stop. I will let this up to his primary care team. I am going to check back with him tomorrow and again if the creatinine gets into his more nearly normal baseline and the calcium level is reasonable then I will probably order and MRI with and without contrast. ERIC
[2016-04-19 12:28] VITALS: BP 143/91; PULSE 87; TEMP 36.8; O2SAT 96
[2016-04-19 15:38] VITALS: BP 156/93; PULSE 89; TEMP 36.5; O2SAT 97
[2016-04-19] MEDS ORDERED: POTASSIUM CHLORIDE 20 MEQ TABCR PO ONE (16:00)
--- NOTE | 2016-04-19 20:43 | Progress Note ---
Subjective Date of Service: Apr 19, 2016. Subjective Pt evaluation today including: conversation w/ patient, physical exam, chart review, lab review, review of inpatient medication list Pain: denies abd pain PO Intake: excellent Voiding: no voiding problems no issues overnight tele stable and w/o dysrhythmia "I feel good" denies any cough, congestion, sob, dyspnea, fever or chills dizziness/vertigo is resolved Problem List Medical Problems: (1) Exacerbation of multiple sclerosis Status: Acute (2) Hyperkalemia Status: Acute (3) Pneumonia Status: Acute Review of Systems Constitutional: No chills, No fever Respiratory: No cough, No sputum Cardiac: No chest pain Abdomen: No nausea, No pain, No vomiting Objective Vital Signs Date Time Temp Pulse Resp B/P Pulse Ox O2 Delivery O2 Flow Rate FiO2 04/19/16 19:47 Room Air 04/19/16 16:00 Room Air 04/19/16 15:38 36.5 89 18 156/93 97 Room Air 04/19/16 12:28 36.8 87 18 143/91 96 Room Air 04/19/16 12:00 Room Air 04/19/16 08:00 Room Air 04/19/16 07:58 36.5 87 18 144/87 97 Room Air 04/19/16 04:27 Room Air 04/19/16 04:10 96 18 142/81 97 Room Air 04/19/16 00:12 Room Air 04/18/16 23:48 36.8 81 18 146/89 97 Room Air Physical Exam General Appearance: no apparent distress ENT: pharynx normal Neck: no JVD Respiratory/Chest: lungs clear, no respiratory distress, no accessory muscle use Cardiovascular: regular rate, rhythm, no gallop, no murmur Abdomen: normal bowel sounds, non tender, soft, no organomegaly Extremities: no pedal edema Neurologic/Psychiatric: alert, oriented x 3, + motor weakness (left foot drop ) Laboratory Results Last 24 Hours Test 04/19/16 05:54 White Blood Count 14.29 K/uL Red Blood Count 4.18 M/uL Hemoglobin 12.6 g/dL Hematocrit 36.7 % Mean Corpuscular Volume 87.8 fL Mean Corpuscular Hemoglobin 30.1 pg Mean Corpuscular Hemoglobin Concent 34.3 g/dl Platelet Count 277 K/uL Mean Platelet Volume 10.4 fL Neutrophils (%) (Auto) 80.4 % Lymphocytes (%) (Auto) 11.0 % Monocytes (%) (Auto) 7.6 % Eosinophils (%) (Auto) 0.2 % Basophils (%) (Auto) 0.1 % Neutrophils # (Auto) 11.48 K/uL Lymphocytes # (Auto) 1.57 K/uL Monocytes # (Auto) 1.09 K/uL Eosinophils # (Auto) 0.03 K/uL Basophils # (Auto) 0.02 K/uL RDW Standard Deviation 41.2 fL RDW Coefficient of Variation 12.8 % Immature Granulocyte % (Auto) 0.7 % Immature Granulocyte # (Auto) 0.10 K/uL Sodium Level 147 mmol/L Potassium Level 3.1 mmol/L Chloride Level 111 mmol/L Carbon Dioxide Level 26 mmol/L Anion Gap 10.0 mmol/L Blood Urea Nitrogen 14 mg/dl Creatinine 1.20 mg/dl Est Creatinine Clear Calc Drug Dose 93.3 ml/min Estimated GFR () 85.9 Estimated GFR (Non- 74.1 BUN/Creatinine Ratio 11.3 Random Glucose 92 mg/dl Calcium Level 10.6 mg/dl Total Bilirubin 0.3 mg/dl Aspartate Amino Transf (AST/SGOT) 21 U/L Alanine Aminotransferase (ALT/SGPT) 119 U/L Alkaline Phosphatase 89 U/L Total Protein 6.8 gm/dl Albumin 3.6 gm/dl Globulin 3.2 gm/dl Albumin/Globulin Ratio 1.1 Assessment and Plan 40yo male: 1. hypercalcemia - labs consistent with primary hyperparathyroidism. Ca nearly normal today. Can cut fluid rate. Will need ENT f/u after discharge for surgical management. Review of the EMR shows his Ca has been high since 2013. He is s/p bisphosphonate therapy on day of admission. 2. acute kidney injury - resolving. Can cut fluid rate but repeat BMP in am. 3. hypokalemia - replace PO. Repeat K in am. 4. MS with ? of flare/exacerbation - defer management to neurology, Dr. Ruiz. He does remain on IV steroids. MRI brain being considered for tomorrow. 5. dizziness/vertigo - resolved. 2nd to #1? 2nd to #4? uncertain, but clearly resolved. 6. seizure d/o - controlled w/ keppra. 7. DVT proph - heparin TID. 8. chronic left foot drop 2nd to MS - continue AFO. PT, OT. 9. concern of LLL pneumonia - repeat cxr today normal. He has no symptoms to suggest pneumonia. d/c IV rocephin. re-eval in AM if Ca is normal and MS is stable consider d/c home with family Continued [facility] stay due to: multiple IV medications needed Discharge planning: home
[2016-04-20 00:29] VITALS: BP 149/81; PULSE 84; TEMP 36.5; O2SAT 96
[2016-04-20] MEDS: HEPARIN SOD 5000 UNIT/0.5 ML CARP SQ SCH ×2 (00:55→07:56)
[2016-04-20 06:45] LABS: BUN/CREATININE RATIO 9.8 (10-20); CALCIUM 10.2 mg/dl (8.5-10.1); CREATININE 1.1 mg/dl (0.60-1.40); POTASSIUM 3.8 mmol/L (3.5-5.1)
[2016-04-20 07:51] VITALS: BP 153/90; PULSE 88; TEMP 36.3; O2SAT 96
[2016-04-20] MEDS: FLUOXETINE HCL 20 MG CAP PO SCH (07:54)
[2016-04-20] MEDS: LEVETIRACETAM 250 MG TAB PO SCH (07:54)
[2016-04-20] MEDS: DIMETHYL FUMARATE 240 MG PO SCH (07:55)
[2016-04-20] MEDS: CALCITONIN SALMON 400 INTER.UNIT/2 ML SQ SCH (08:01)
[2016-04-20] MEDS ORDERED: METHYLPREDNISOLONE IV 80 MG in SYRINGE 0 ML IV ONE (09:00)
--- NOTE | 2016-04-20 11:12 | PROGRESS NOTE ---
DATE: 04/20/2016 DATE: 04/20/2016. Mazin looks back to his baseline and feels as well as he has. There is no more vertigo. He has no cervical paresis, this is stable. His calcium is down low 10s and his BUN and creatinine are now close to his baseline, so an MRI is being scheduled, but has not yet been done. At this point, he is going to need followup with neurology several weeks after the current hospitalization. I am going to check the MRI by computer, but there is nothing about the examination that is going to change our plans so probably discharge him today. He is going to need followup with endocrinology, his primary care group and have laboratory monitoring for calcium and his renal function. All of this can be arranged on an outpatient basis. Luckily, the transaminase levels are also falling and at this point I see no reason to consider stopping his Tecfidera as it is one of the agents that he was able to tolerate and I think we can simply just follow his transaminase levels on an outpatient basis. It is not clear what caused the elevation to begin with, but it seems to be trending downward very nicely. It would be hard to blame an agent that he has been taking for over 2 years for this transient elevation in the liver profile. In summary then from a neurologic point of view, he can be discharged after the MRI, the results of which I can review later but he should have an appointment to see me back in several weeks' time. Unfortunately, his compliance with returns has been less than stellar over the years. Hopefully, the weather will permit him to keep this when as the last one he claims was due to the fact that he did not have transportation in the snow.
[2016-04-20] MEDS ORDERED: GADAVIST IV PRN (13:00)
--- NOTE | 2016-04-20 13:51 | DIAGNOSTIC IMAGING REPORT ---
Brain MRI WITH AND WITHOUT CONTRAST HISTORY: Multiple sclerosis multiple sclerosis, eval for new lesions TECHNIQUE: Multiplanar multisequence MRI of the brain was performed both before and after the intravenous administration of contrast. COMPARISON STUDY: 11/12/2015 FINDINGS: Multiple foci of increased signal within the periventricular deep white matter regions remain stable. There is no evidence currently for postcontrast enhancement. There are findings of mild degree of cerebral atrophy unchanged from the prior study. There are no new or interval lesions. There is no significant postcontrast enhancement on the current study. Several foci of increased signal within the cerebellar and pontine regions are stable. Structures of the sella and parasellar region are unremarkable. Internal artery canals are symmetric. Optic nerves appear unremarkable. IMPRESSION: 1. Stable/slightly improved MRI of the brain compared to the prior study. 2. The number, size, and configuration of all foci of demyelination are unchanged. 3. There are no new or interval lesions. 4. No evidence on the current study for abnormal postcontrast enhancement Electronically signed by: Enrique Dumont M.D. 04/20/2016 1:49 PM Dictated Date/Time: 04/20/2016 1:43 PM
[2016-04-20] MEDS ORDERED: RXC30 PO (14:20)
[2016-04-20] MEDS ORDERED: PRED10TA PO (14:20)
--- NOTE | 2016-04-20 14:32 | Discharge Instructions ---
Discharge Instructions Admission Reason for Admission: Hypercalcemia (high calcium levels) Discharge Discharge Diagnosis / Problem: High calcium levels resolved. Etiology appears to be hyperparathyroidism. Discharge Goals Goal(s): Improve disease control, Learn about illness, Diagnostic testing, Therapeutic intervention Activity Recommendations Activity Limitations: resume your previous activity . Instructions / Follow-Up Instructions / Follow-Up From Dr. Briceno - 1. You were admitted for confusion, weakness, dizziness, and high calcium levels. It appears you may have a condition called "Hyperparathyroidism." In this condition your parathyroid glands (all humans have 4 of them, which sit on the front of the neck) are over-active. 1 or more of the parathyroids may be over-active. Your calcium level on day of discharge is essentially normal. The treatment of this condition is: 1. see ENT (ear/nose/throat) specialist as the primary mode of treatment is surgery. 2. stay well-hydrated day to day. Drink plenty of fluids (water, gatorade, etc). 3. avoid excessive amounts of caffeinated beverages as these dehydrate you. 4. you do not need to be overly restrictive of your calcium intake in your diet. However, I would recommend against taking dedicated calcium supplements/ medications (oscal, tums, etc). 2. You will need to see your family doctor this week to have your calcium level repeated. 3. If you experience any symptoms similar to what you had prior to this hospitalization (dizziness, confusion, abdominal pain, etc) please report back to [facility]. 4. Take prednisone as follows - * 40mg x 1 on 04/21/16 * 20mg x 1 on 04/22/16 * 10mg x 1 on 04/23/16 then stop. 5. MS - your MRI did NOT show any new or active MS lesions. 6. Please see Dr. Torres by Thursday of THIS WEEK to have your calcium level repeated. 7. We will set you up with an ENT appointment to address the parathyroid issue. Current Hospital Diet Patient's current hospital diet: Regular Diet Discharge Diet Recommended Diet: Regular Diet Procedures Procedures Performed: MRI brain with NO new MS lesions. Pending Studies Studies pending at discharge: no Medical Emergencies . Who to Call and When: Medical Emergencies: If at any time you feel your situation is an emergency, please call 911 immediately. . Non-Emergent Contact Non-Emergency issues call your: Primary Care Provider Call Non-Emergent contact if: temperature is above 100.5, your pain is concerning you, you have any medication questions . . "Provider Documentation" section prepared by Jean Briceno. VTE Core Measure Inpt VTE Proph given/why not?: Unfractionated heparin SQ
[2016-04-20 14:43] VITALS: BP 153/90; PULSE 88; TEMP 36.3; O2SAT 96
[2016-04-21] MEDS ORDERED: METHYLPREDNISOLONE IV 60 MG in SYRINGE 0 ML IV ONE (09:00)
--- NOTE | 2016-04-21 10:10 | Discharge Summary ---
Discharge Summary Admission Date: Apr 17, 2016 at 22:35 Discharge Date: Apr 20, 2016 Discharge Disposition: Home Principal Diagnosis: hypercalcemia, likely due to primary hyperparathyroidism Problems/Secondary Diagnoses: 1. acute kidney injury likely 2nd to hypercalcemia 2. multiple sclerosis 3. metabolic encephalopathy - resolved 4. abnormal LFTs - resolving, etiology uncertain 5. hypokalemia - resolved 6. seizure disorder 7. chronic pain syndrome 8. chronic left foot drop 2nd to MS Immunizations: Have You Had Influenza Vaccine: Yes History of Tetanus Vaccine?: UTD Tetanus Immunization Date: Feb 02, 2006 History of Pneumococcal: No History of Hepatitis B Vaccine: No Procedures: MRI brain w/ and w/o contrast: IMPRESSION: 1. Stable/slightly improved MRI of the brain compared to the prior study. 2. The number, size, and configuration of all foci of demyelination are unchanged. 3. There are no new or interval lesions. 4. No evidence on the current study for abnormal postcontrast enhancement Consultations: neurology - Ricky Ruiz MD PT, OT Medication Reconciliation Changed Medications: Oxycodone HCl (Oxycodone HCl) 30 Mg Tab 30 MG PO Q6H PRN for Pain, #1 (Medication details modified) Prednisone (Prednisone) 10 Mg Tab 10 MG PO DIRECTED, #7 TAB 0 Refills (Changed from: 0 ; UD; 1; Refills: ; STERAPRED 10MG 12 DAY) 04/21/16: take 4 tabs po x 1, 04/22/16: take 2 tabs po x 1, 04/23/16: take 1 tab po x 1 then stop. Continued Medications: Cyclobenzaprine Hcl (Flexeril) 10 Mg Tab 10 MG PO TID PRN for Pain, #21 TAB Dimethyl Fumarate (Tecfidera) 240 Mg Cap 240 MG PO Q12 Fluoxetine (Prozac) 40 Mg Cap 40 MG PO DAILY, CAP Levetiracetam (Keppra) 250 Mg Tab 2 TAB PO DAILY, TAB Referrals At Discharge Follow up Referrals: Physician Referral - Please Call For Appointment with Aryan Torres M.D. Discharge Exam Physical Exam: General Appearance: WD/WN, no apparent distress ENT: pharynx normal Neck: no JVD Respiratory/Chest: lungs clear, no respiratory distress, no accessory muscle use Cardiovascular: regular rate, rhythm, no gallop, no murmur, normal peripheral pulses Abdomen / GI: normal bowel sounds, non tender, soft, no organomegaly Extremities: no pedal edema Neurologic/Psychiatric: alert, oriented x 3, + motor weakness (left foot drop) Skin: no rash Hospital Course HISTORY OF PRESENT ILLNESS: 40-year-old male with a history of multiple sclerosis and seizure disorder who presented to the emergency department with worsening lightheadedness and dizziness. He noted that it had been going on for the past 3 weeks, but got especially worse on the day of presentation which led him to come to the emergency department. He describes his dizziness as "the room is spinning". He denied tinnitus, hearing changes. He noted that he had been having difficulty with balance. He noted that this does worsen with his MS flares. He does have some gait disturbance at baseline, noting that when he walks he does tend to have some imbalance towards the left side. This had also worsened over the past 3 weeks. There was some reports of confusion at home as well. He denied any pain, fevers, chills, cough, congestion, dyspnea, or sweats. At time of ER presentation his creatinine was noted to be 1.5 and his total calcium level was 13.7. HOSPITAL COURSE: The patient's intact PTH level was elevated to nearly 300. A review of the EMR showed that his total calcium level had been mildly elevated for the last 2-3 years. It was suspected that he had primary hyperparathyroidism. He was started on IV fluids, given IV bisphosphonate, and begun on calcitonin. With the above measures his calcium quickly improved and on day of discharge his total calcium level was 10.2 All of his presenting symptoms including his dizziness and mild confusion resolved with correction of the hypercalcemia. Furthermore, since his MRI of the brain showed stable MS, this was further evidence that his clinical presentation was due to the hypercalcemia and not MS. Along with the hypercalcemia his acute kidney injury resolved with IV hydration. Discharge creatinine was 1.1. The patient will be referred to [facility] for additional work-up and potential surgical management of his hyperparathyroidism. The patient's seizure disorder was stable while here. PT and OT saw the patient for therapy and he was felt to be at his pre-hospital baseline and thus cleared for home. Lastly, the patient had abnormal ast & alt at presentation. These improved and nearly normalized with supportive care measures. The exact etiology of this was uncertain. PCP: please repeat a BMP and ast/alt at time of hospital follow-up to ensure stability of creatinine, calcium, and ast/alt. Total Time Spent: Greater than 30 minutes This includes examination of the patient, discharge planning, medication reconciliation, and communication with other providers. Discharge Instructions Please refer to the electronic Patient Visit Report (Discharge Instructions) for additional information. Follow-Up 1. see Dr. Torres, PCP, within [address] Aryna Palomino, [facility], first available appointment - dx: primary hyperparathyroidism 3. see Dr. Ruiz in 2-3 weeks for multiple sclerosis Additional Copies To Aryan Palomino MD; Aryan Torres M.D.; Ricky Ruiz M.D. ( MEDICINE)
[2016-04-22] MEDS ORDERED: METHYLPREDNISOLONE IV 40 MG in SYRINGE 0 ML IV ONE (09:00)
[2016-04-23] MEDS ORDERED: METHYLPREDNISOLONE IV 20 MG in SYRINGE 0 ML IV ONE (09:00)
[2016-04-24 02:20] LABS: ALK PHOS ISO-INTESTINE 0 % (1-24); ALK PHOS ISO-LIVER 63 % (25-69); ALK PHOS ISO-PLACENTAL 0 % (<=0); ALK PHOS MACROHEPATIC 0 % (<=0); ALP (ALK P'TASE) 103 U/L (40-115)
[2016-04-25 11:29] LABS: PARATHYR RELATED PROT *34478X 11 pg/mL (14-27)
== END 2016-04-20 15:05 | disposition home or self-care (01) | DRG 643 ==
LOC: ENRESERVTM → CANRESERV → ENRESERVDT → C.EDB 16:58 → C.MED 22:35 → EDBEDREQSVC 23:52
PROVIDERS: ADMIT Student in an Organized Health Care Education/Training Program; ATTEND Internal Medicine
DX: E21.0 Primary hyperparathyroidism (principal); G93.41 Metabolic encephalopathy; N17.9 Acute kidney failure, unspecified; E83.52 Hypercalcemia; G35 Multiple sclerosis; G40.909 Epilepsy, unspecified, not intractable, without status epilepticus; G89.4 Chronic pain syndrome; M21.372 Foot drop, left foot; F32.9 Major depressive disorder, single episode, unspecified; Z83.3 Family history of diabetes mellitus; Z82.49 Family history of ischemic heart disease and other diseases of the circulatory system; Z84.1 Family history of disorders of kidney and ureter; Z79.899 Other long term (current) drug therapy; Z79.52 Long term (current) use of systemic steroids; Z79.891 Long term (current) use of opiate analgesic

== ENCOUNTER 2017-06-13 00:08 | Inpatient (IN) | payer OTHER ==
[~2017-06-13] VITALS: Ht 182.9 cm; Wt 87.8 kg
--- NOTE | 2017-06-13 00:21 | EMERGENCY ROOM VISIT NOTE ---
History Report prepared by Dory: Jeffry Galvan Under the Supervision of: Dr. Any Elias D.O. First contact with patient: 00:11 Chief Complaint: WEAKNESS Stated Complaint: DIZZINESS/LIGHTHEADED/VOMITING History of Present Illness The patient is a 41 year old male who presents to the Emergency Room brought in by EMS with complaints of persistent general vomiting since noon yesterday. He has a history of MS. He states his sister wanted to bring him to the ED earlier by car, but they could not carry him to the car. He notes that he has been vomiting all day. He states that he is also dry heaving. He reports walking when he tripped into a wall and hit his head. He has a brace on his left leg. He uses a cane to ambulate. He is unsure if the vomiting began before or after he hit his head. He denies any LOC. He states that he is treated every six months with Ocrevus IV for his MS. He states that he believes this is an MS flare up and notes that he has not had a flare up for two years since he has been on this treatment regimen. He is due for another treatment dose at the end of June 2017. He states that he has had MS for 10 years. He follows up with Dr. Ruiz of neurology. He reports weakness, blurry vision, dizziness, and soreness in both legs. He reports baseline weakness in his left leg. He denies any nausea or cough. He reports eating and drinking well. He reports living with his sister and notes that he never goes outside. He reports his left him several months ago. He has a history of steroid use. Source of History: patient Onset: noon yesterday Position: other (general ) Quality: other (vomiting) Timing: other (persistent) Associated Symptoms: + weakness, No LOC, No cough, No nausea Note: He notes dry heaving, head injury, blurry vision, dizziness, and soreness in both legs. Review of Systems See HPI for pertinent positives & negatives. A total of 10 systems reviewed and were otherwise negative. Past Medical & Surgical Medical Problems: (1) RUBI (acute kidney injury) (2) Chronic pain syndrome (3) Depression (4) Encephalopathy (5) Exacerbation of multiple sclerosis (6) Hypercalcemia (7) Multiple sclerosis (8) Seizure disorder Family History Diabetes mellitus Hypertension Kidney stones Social History Smoking Status: Never Smoker Alcohol Use: none Drug Use: none Marital Status: Housing Status: lives with family Occupation Status: disabled Current/Historical Medications Scheduled Fluoxetine (Prozac), 40 MG PO DAILY Levetiracetam (Keppra), 2 TAB PO DAILY Prednisone (Prednisone), 10 MG PO DIRECTED Scheduled PRN Cyclobenzaprine Hcl (Flexeril), 10 MG PO TID PRN for Pain Oxycodone HCl (Oxycodone HCl), 30 MG PO Q6H PRN for Pain Miscellaneous Medications Ocrelizumab (Ocrevus) Allergies Coded Allergies: No Known Allergies (Unverified , 06/13/17) Physical Exam Vital Signs Date Time Temp Pulse Resp B/P (MAP) Pulse Ox O2 Delivery O2 Flow Rate FiO2 06/13/17 04:06 99 06/13/17 03:40 103 16 123/82 97 Room Air 06/13/17 02:03 102 20 122/95 97 Room Air 06/13/17 00:15 111 06/13/17 00:15 37.0 111 20 156/107 97 Room Air Physical Exam HEENT: Head - normocephalic and atraumatic. psoriasis about his face. Pupils are equal, round, and reactive to light. Extraocular eye muscles are intact and sclera are anicteric. Ears - bilaterally patent canals with noninjected tympanic membranes and no evidence of hemotympanum. Nose - moist nasal mucosa without discharge. Mouth - moist buccal mucosa. Oropharynx is nonerythematous and there is no tonsillar exudate or edema noted. Neck: Supple; no JVD, nuchal rigidity, cervical lymphadenopathy, or auscultated bruits. Heart: Regular rate and rhythm. There is a normal S1 and S2 with no murmurs, clicks, or gallops appreciated. Lungs: Clear to auscultation bilaterally with no wheezes, rales, or rhonchi. Abdomen: Soft, completely nontender, nondistended, with good bowel sounds. There are no palpable pulsatile masses or hepatosplenomegaly. There is no guarding, rigidity, or rebound noted. Extremities: No evidence of cyanosis, clubbing, or edema. There are easily palpable peripheral pulses. Neuro:The patient is awake and alert, oriented to day, time, and place. Muscle strength is 3/5 in the left leg. Muscle strength is 4/5 in left arm. The right leg and right arm are normal. The patient has equal grades 1 6 tutor strength and equal pedal push and pull. There are no cerebellar signs. Medical Decision & Procedures ER Provider Diagnostic Interpretation: Radiology results as stated below per my review and the radiologist's interpretation: CT HEAD: No acute hemorrhage, hydrocephalus, or mass effect. Radiologist: Teofilo Ramirez MD Study ready at 01:27 and initial results transmitted at 01:28 Laboratory Results 06/13/17 01:58 Red Blood Count 4.43, Mean Corpuscular Volume 86.0, Mean Corpuscular Hemoglobin 29.8, Mean Corpuscular Hemoglobin Concent 34.6, Mean Platelet Volume 9.4, Neutrophils (%) (Auto) 89.1, Lymphocytes (%) (Auto) 5.5, Monocytes (%) (Auto) 4.9, Eosinophils (%) (Auto) 0.1, Basophils (%) (Auto) 0.2, Neutrophils # (Auto) 7.26, Lymphocytes # (Auto) 0.45, Monocytes # (Auto) 0.40, Eosinophils # (Auto) 0.01, Basophils # (Auto) 0.02 06/13/17 00:55 Test 06/13/17 00:55 06/13/17 01:58 06/13/17 02:10 Anion Gap 5.0 mmol/L (3-11) Est Creatinine Clear Calc Drug Dose 85.7 ml/min Estimated GFR () 83.6 Estimated GFR (Non- 72.2 BUN/Creatinine Ratio 10.6 (10-20) Calcium Level 11.6 mg/dl (8.5-10.1) Chemistry Specimen Hemolysis White Blood Count 8.16 K/uL (4.8-10.8) Red Blood Count 4.43 M/uL (4.7-6.1) Hemoglobin 13.2 g/dL (14.0-18.0) Hematocrit 38.1 % (42-52) Mean Corpuscular Volume 86.0 fL (80-100) Mean Corpuscular Hemoglobin 29.8 pg (25-34) Mean Corpuscular Hemoglobin Concent 34.6 g/dl (32-36) Platelet Count 296 K/uL (130-400) Mean Platelet Volume 9.4 fL (7.4-10.4) Neutrophils (%) (Auto) 89.1 % Lymphocytes (%) (Auto) 5.5 % Monocytes (%) (Auto) 4.9 % Eosinophils (%) (Auto) 0.1 % Basophils (%) (Auto) 0.2 % Neutrophils # (Auto) 7.26 K/uL (1.4-6.5) Lymphocytes # (Auto) 0.45 K/uL (1.2-3.4) Monocytes # (Auto) 0.40 K/uL (0.11-0.59) Eosinophils # (Auto) 0.01 K/uL (0-0.5) Basophils # (Auto) 0.02 K/uL (0-0.2) RDW Standard Deviation 39.1 fL (36.4-46.3) RDW Coefficient of Variation 12.5 % (11.5-14.5) Immature Granulocyte % (Auto) 0.2 % Immature Granulocyte # (Auto) 0.02 K/uL (0.00-0.02) Albumin 3.7 gm/dl (3.4-5.0) Urine Color YELLOW Urine Appearance CLOUDY (CLEAR) Urine pH 7.5 (4.5-7.5) Urine Specific Tillman 1.014 (1.000-1.030) Urine Protein NEG (NEG) Urine Glucose (UA) NEG (NEG) Urine Ketones 2+ (NEG) Urine Occult Blood 1+ (NEG) Urine Nitrite NEG (NEG) Urine Bilirubin NEG (NEG) Urine Urobilinogen NEG (NEG) Urine Leukocyte Esterase NEG (NEG) Urine WBC (Auto) 1-5 /hpf (0-5) Urine RBC (Auto) 5-10 /hpf (0-4) Urine Hyaline Casts (Auto) 1-5 /lpf (0-5) Urine Epithelial Cells (Auto) 10-20 /lpf (0-5) Urine Bacteria (Auto) NEG (NEG) Laboratory results per my review. Medications Administered Medications (Trade) Dose Ordered Sig/Jas Route Start Time Stop Time Status Last Admin Dose Admin Sodium Chloride 1,000 ml @ 999 mls/hr Q1H1M STAT IV 06/13/17 00:45 06/13/17 01:45 DC 06/13/17 01:00 999 MLS/HR Methylprednisolone Sodium Succinate (Solu-Medrol IV) 125 mg NOW STAT IV 06/13/17 00:45 06/13/17 00:46 DC 06/13/17 00:59 125 MG Hydromorphone HCl (Dilaudid Inj) 1 mg NOW STAT IV 06/13/17 00:45 06/13/17 00:46 DC 06/13/17 00:59 1 MG Ondansetron HCl (Zofran Inj) 4 mg NOW STAT IV 06/13/17 00:45 06/13/17 00:46 DC 06/13/17 00:59 4 MG Procedure 0045: Ordered Zofran 4 mg IV, Dilaudid 1 mg IV, Solu-Medrol 125 mg IV, and Sodium Chloride 1,000 ml @ 999 mls/hr IV. ED Course 0033: Past medical records reviewed. The patient was evaluated in room A4B. A complete history and physical exam was performed. IV lock was established. Laboratory studies were drawn as above. 0045: Ordered Zofran 4 mg IV, Dilaudid 1 mg IV, Solu-Medrol 125 mg IV, and Sodium Chloride 1,000 ml @ 999 mls/hr IV. He went for CT scan of the brain because of the reported head trauma. This was negative. 0345: I reassessed the patient at this time. I discussed the results and treatment plan with the patient. He states that he is not going home. I answered all pertaining questions that he had. He expressed understanding and verbalized agreement. The patient will be further evaluated. 0403: I spoke with Dr. Larsen, [facility]. We discussed the patient' s case. The patient will be evaluated by the [facility] for further management. Medical Decision The patient is a 41 year old male who presents to the ED with vomiting. Differential diagnosis includes MS flare, closed head injury, concussion, viral illness, and dehydration. Lab results showed: urine has 2+ ketones 1+ blood. No signs of infection. Normal renal function. Normal Glucose. Mildly anemic hemoglobin 13.2. Normal WBC. This is a 41-year-old male patient who presents to the emergency department having exacerbation of his MS. It seems that the patient may have developed an acute viral illness with vomiting. This may have exacerbated his MS symptoms. He has had moderate vomiting throughout the day today. The patient states that he has become quite weak on the left side of the body and is concerned that he will continue to stumble and fall. The patient was treated with IV steroids and saline. I discussed the case with the [facility] and they will evaluate him for further management Medication Reconcilliation Current Medication List: was personally reviewed by me Blood Pressure Screening Patient's blood pressure: Normal blood pressure Consults Time Called: 0350 Consulting Physician: Dr. Larsen [facility] Returned Call: [phone] Larsen, [facility]. We discussed the patient's case. The patient will be evaluated by the [facility] for further management. Impression Primary Impression: Exacerbation of multiple sclerosis Additional Impression: Vomiting Scribe Attestation The scribe's documentation has been prepared under my direction and personally reviewed by me in its entirety. I confirm that the note above accurately reflects all work, treatment, procedures, and medical decision making performed by me. Departure Information Dispostion Being Evaluated By Hospitalist Patient Instructions My [facility] Problem Qualifiers
[2017-06-13] MEDS ORDERED: [UNRECOGNIZED DRUG - OTHER] (00:26)
[2017-06-13] MEDS ORDERED: OCRE300I (00:29)
[2017-06-13] MEDS ORDERED: ONDANSETRON INJ 2 MG/ML 2 ML VIAL IV STA (00:45)
[2017-06-13] MEDS ORDERED: HYDROmorphone INJ 1 MG/ML SYR IV STA (00:45)
[2017-06-13] MEDS ORDERED: METHYLPREDNISOLONE 125 MG VIAL IV STA (00:45)
[2017-06-13] MEDS ORDERED: SODIUM CHLORIDE 0.9% 1000ML 1,000 ML IV STA (00:45)
[2017-06-13 01:50] LABS: CALCIUM 11.6 mg/dl (8.5-10.1); CREATININE 1.22 mg/dl (0.60-1.40); POTASSIUM 4.2 mmol/L (3.5-5.1)
[2017-06-13 02:17] LABS: BASO % 0.2 %; BASO ABS # 0.02 K/uL (0-0.2); EOS % 0.1 %; EOS ABS # 0.01 K/uL (0-0.5); HEMATOCRIT 38.1 % (42-52); HEMOGLOBIN 13.2 g/dL (14.0-18.0); IG# 0.02 K/uL (0.00-0.02); LYMPH % 5.5 %; LYMPH ABS # 0.45 K/uL (1.2-3.4); MEAN CORPUSCULAR HEMOGLOBIN 29.8 pg (25-34); MEAN CORPUSCULAR HGB CONC 34.6 g/dl (32-36); MEAN PLATELET VOLUME 9.4 fL (7.4-10.4); MONO % 4.9 %; NEUT % 89.1 %; NEUT ABS # 7.26 K/uL (1.4-6.5); PLATELET COUNT 296 K/uL (130-400); RED CELL DISTRIBUTION WIDTH CV 12.5 % (11.5-14.5); RED CELL DISTRIBUTION WIDTH SD 39.1 fL (36.4-46.3); WHITE BLOOD COUNT 8.16 K/uL (4.8-10.8)
--- NOTE | 2017-06-13 04:03 | History and Physical ---
History & Physical Date & Time of Service: Jun 13, 2017 at 04:03 Chief Complaint: Dizziness/Lightheaded/Vomiting Primary Care Physician: Solomon Lyons PA-C History of Present Illness Source: patient Patient is a 41-year-old male with past medical history of multiple sclerosis, depression, seizure disorder, chronic pain syndrome and other problems presents with history of nausea and vomiting, dizziness, left leg weakness, intermittent blurry vision and headache since yesterday. Patient was treated in Apr 2016 at [facility] for hypercalcemia which was thought to be secondary to primary hyperparathyroidism. Patient was advised to follow-up with the ENT for further management at the time but patient did not follow up as advised. He started noticing constant lightheadedness and dizziness since yesterday and also developed worsening left lower extremity weakness which resulted him to trip and hit his head to wall. He developed frontal and retrobulbar headache since after the fall. He states his MS has been very well controlled with IV Ocrevus which he takes every 6 months. Follows with as outpatient. CT head done today is normal. He states intermittent blurry vision and left leg weakness is chronic and the symptoms get worse in with his MS flare. Denies any history of chest pain, SOB, cough, fever, chills, numbness, tingling, slurred speech, facial deformity, abdominal pain, diarrhea, dysuria, sick contact, recent change in medications. Past Medical/Surgical History Medical Problems: (1) RUBI (acute kidney injury) (2) Chronic pain syndrome (3) Depression (4) Encephalopathy (5) Exacerbation of multiple sclerosis (6) Exacerbation of multiple sclerosis (7) Hypercalcemia (8) Hyperkalemia (9) Multiple sclerosis (10) Pneumonia (11) Seizure disorder Family History Diabetes mellitus Hypertension Kidney stones Not contributory Social History Smoking Status: Never Smoker Alcohol Use: none Drug Use: none Marital Status: Housing status: lives with family Occupational Status: disabled Immunizations History of Influenza Vaccine: Yes History of Tetanus Vaccine?: UTD Tetanus Immunization Date: Feb 02, 2006 History of Pneumococcal: No History of Hepatitis B Vaccine: No Allergies Coded Allergies: No Known Allergies (Unverified , 06/13/17) Home Medications Scheduled Fluoxetine (Prozac), 40 MG PO DAILY Levetiracetam (Keppra), 2 TAB PO DAILY Prednisone (Prednisone), 10 MG PO DIRECTED Scheduled PRN Cyclobenzaprine Hcl (Flexeril), 10 MG PO TID PRN for Pain Oxycodone HCl (Oxycodone HCl), 30 MG PO Q6H PRN for Pain Miscellaneous Medications Ocrelizumab (Ocrevus) Review of Systems See HPI for pertinent positives & negatives. A total of 10 systems reviewed and were otherwise negative. Physical Exam Vital Signs Date Time Temp Pulse Resp B/P (MAP) Pulse Ox O2 Delivery O2 Flow Rate FiO2 06/13/17 03:40 103 16 123/82 97 Room Air 06/13/17 02:03 102 20 122/95 97 Room Air 06/13/17 00:15 111 06/13/17 00:15 37.0 111 20 156/107 97 Room Air General Appearance: WD/WN, no apparent distress Head: normocephalic, atraumatic Eyes: normal inspection, PERRL, EOMI, sclerae normal ENT: normal ENT inspection, hearing grossly normal Neck: supple, trachea midline Respiratory/Chest: chest non-tender, lungs clear, normal breath sounds, no respiratory distress, no accessory muscle use Cardiovascular: regular rate, rhythm, no edema, no murmur, + tachycardia Abdomen/GI: normal bowel sounds, non tender, soft Back: normal inspection Extremities/Musculoskelatal: normal inspection, no pedal edema, + pertinent finding (LLE in brace) Neurologic/Psych: scorekeeper II-XII nml as tested, alert, oriented x 3, + pertinent finding (LLE strength 3/5, decreased ROM, Grossly no other focal deficits) Skin: normal color, warm/dry Diagnostics Laboratory Results Results Past 24 Hours Test 06/13/17 00:55 06/13/17 01:58 06/13/17 02:10 Range/Units Sodium Level 140 136-145 mmol/L Potassium Level 4.2 3.5-5.1 mmol/L Chloride Level 108 98-107 mmol/L Carbon Dioxide Level 27 21-32 mmol/L Anion Gap 5.0 3-11 mmol/L Blood Urea Nitrogen 13 7-18 mg/dl Creatinine 1.22 0.60-1.40 mg/dl Est Creatinine Clear Calc Drug Dose 85.7 ml/min Estimated GFR () 83.6 Estimated GFR (Non- 72.2 BUN/Creatinine Ratio 10.6 10-20 Random Glucose 98 70-99 mg/dl Calcium Level 11.6 8.5-10.1 mg/dl Chemistry Specimen Hemolysis White Blood Count 8.16 4.8-10.8 K/uL Red Blood Count 4.43 4.7-6.1 M/uL Hemoglobin 13.2 14.0-18.0 g/dL Hematocrit 38.1 42-52 % Mean Corpuscular Volume 86.0 80-100 fL Mean Corpuscular Hemoglobin 29.8 25-34 pg Mean Corpuscular Hemoglobin Concent 34.6 32-36 g/dl Platelet Count 296 130-400 K/uL Mean Platelet Volume 9.4 7.4-10.4 fL Neutrophils (%) (Auto) 89.1 % Lymphocytes (%) (Auto) 5.5 % Monocytes (%) (Auto) 4.9 % Eosinophils (%) (Auto) 0.1 % Basophils (%) (Auto) 0.2 % Neutrophils # (Auto) 7.26 1.4-6.5 K/uL Lymphocytes # (Auto) 0.45 1.2-3.4 K/uL Monocytes # (Auto) 0.40 0.11-0.59 K/uL Eosinophils # (Auto) 0.01 0-0.5 K/uL Basophils # (Auto) 0.02 0-0.2 K/uL RDW Standard Deviation 39.1 36.4-46.3 fL RDW Coefficient of Variation 12.5 11.5-14.5 % Immature Granulocyte % (Auto) 0.2 % Immature Granulocyte # (Auto) 0.02 0.00-0.02 K/uL Urine Color YELLOW Urine Appearance CLOUDY CLEAR Urine pH 7.5 4.5-7.5 Urine Specific Crosby 1.014 1.000-1.030 Urine Protein NEG NEG Urine Glucose (UA) NEG NEG Urine Ketones 2+ NEG Urine Occult Blood 1+ NEG Urine Nitrite NEG NEG Urine Bilirubin NEG NEG Urine Urobilinogen NEG NEG Urine Leukocyte Esterase NEG NEG Urine WBC (Auto) 1-5 0-5 /hpf Urine RBC (Auto) 5-10 0-4 /hpf Urine Hyaline Casts (Auto) 1-5 0-5 /lpf Urine Epithelial Cells (Auto) 10-20 0-5 /lpf Urine Bacteria (Auto) NEG NEG Diagnostic Radiology CT head: No acute findings on Preliminary reading Impression Assessment and Plan Hypercalcemia: Work up on prior admission consistent with Primary Hyperparathyroidism Start on IV fluids Check albumin, Ionized calcium, PTH Dehydration from nausea, vomiting could be contributing One dose of Zometa 4mg IV Needs follow up with ENT as outpatient Possible MS flare: Presents with intermittent blurry vision and worsening of chronic Left leg weakness Started on Solu-medrol On Ocrevus IV every 6 months, next dose due in June 2017 Well controlled since last 2 yrs per patient Neurology consulted MRI Brain done on 04/20/16 showed no signs of MS flare Headache: S/P Fall CT head: No acute process on preliminary reading monitor Depression: Continue Fluoxetine Seizure disorder: Previously on Keppra Currently not on any meds per patient Chronic pain syndrome Continue home meds DVT Px: SCDs Code Status: Full Code Resuscitation Status VTE Prophylaxis Will order VTE Prophylaxis: Yes
[2017-06-13] MEDS ORDERED: ACETAMINOPHEN 325 MG TAB PO PRN (04:45)
[2017-06-13] MEDS ORDERED: ONDANSETRON INJ 2 MG/ML 2 ML VIAL IV PRN (04:45)
[2017-06-13] MEDS ORDERED: CYCLOBENZAPRINE HCL 10 MG TAB PO PRN (04:45)
[2017-06-13] MEDS ORDERED: ZOLEDRONIC ACID INJ 4 MG in SODIUM CHLORIDE 0.9% 100ML 100 ML IV SCH (05:00)
--- NOTE | 2017-06-13 06:22 | DIAGNOSTIC IMAGING REPORT ---
CT HEAD WITHOUT CONTRAST (CT) CLINICAL HISTORY: Head trauma. Confusion. Vomiting. Dizziness. COMPARISON STUDY: 09/29/2013, MRI the brain dated 04/20/2016 TECHNIQUE: Axial CT of the brain is performed from the vertex to the skull base. IV contrast was not administered for this examination. A dose lowering technique was utilized adhering to the principles of ALARA. CT DOSE: 614.27 mGy.cm FINDINGS: No intra or extra-axial mass lesions are visualized. There is no CT evidence of acute cortical infarction. There is no evidence of midline shift. There is no acute hemorrhage. No calvarial fractures are visualized. There are patchy white matter hypodensities likely secondary to the patient's known multiple sclerosis. There is no evidence of pathologic ventricular dilatation. There is no evidence of acute sinusitis IMPRESSION: No acute intracranial findings Electronically signed by: Romeo Humphries M.D. 06/13/2017 6:20 AM Dictated Date/Time: 06/13/2017 6:17 AM
[2017-06-13] MEDS: SODIUM CHLORIDE 0.9% 1000ML 1,000 ML IV SCH ×3 (06:23→20:11)
[2017-06-13 06:32] VITALS: BP 144/87; PULSE 92; TEMP 36.6; Ht 182.9 cm; Wt 87.8 kg
[2017-06-13 07:32] VITALS: BP 133/83; PULSE 96; TEMP 36.5; O2SAT 96
[2017-06-13] MEDS: METHYLPREDNISOLONE IV 40 MG in SYRINGE 0 ML IV SCH (08:38)
[2017-06-13] MEDS: FLUOXETINE HCL 20 MG CAP PO SCH (08:38)
[2017-06-13] MEDS: OXYCODONE HCL IR 5 MG TAB (IMMEDIATE RELEASE) PO PRN ×2 (08:39→22:01)
[2017-06-13 10:34] LABS: CALCIUM 10.9 mg/dl (8.5-10.1); CREATININE 1.3 mg/dl (0.60-1.40); POTASSIUM 3.9 mmol/L (3.5-5.1)
[2017-06-13 12:29] VITALS: BP 135/81; PULSE 103; TEMP 36.6; O2SAT 94
--- NOTE | 2017-06-13 12:47 | NEUROLOGY CONSULTATION ---
DATE OF CONSULTATION: 06/13/2017 REASON FOR CONSULTATION: MS flare. HISTORY OF PRESENT ILLNESS: Ofrba[age]osfr[age]bq[age]-old right-handed male previously diagnosed with MS at age 30 also with depression, query seizure disorder and chronic pain syndrome, presented with increased dizziness, vertigo, instability and worsening left leg weakness. Patient denies any recent illness. He denies headache. In April of 2016, he was found to be mildly hypocalcemic and recommended further evaluation with ENT, but did not followup as advised. Prior to beginning Ocrevus which he has received 3 times and is due to receive his next dose in the coming weeks, he was on Tecfidera, but became JCC-virus antibody positive. He has generally done well since the institution of Ocrevus. His CT of the head noncontrast shows white matter changes. LABORATORY DATA: White count, H&H, platelet count, chemistry profile notable for a calcium of 11.6, chloride 108. Urinalysis, 2+ ketones, 1+ blood, 5-10 red cells, 1-5 whites, epithelial cells 10-20, bacteria negative, nitrite negative. Electrocardiogram: Normal sinus rhythm, prolonged QT. PAST MEDICAL HISTORY: Acute kidney injury, chronic pain, depression, encephalopathy, multiple sclerosis, hypercalcemia, hyperkalemia, pneumonia, seizure disorder. SURGICAL HISTORY: None. FAMILY HISTORY: Diabetes, hypertension, kidney stones. SOCIAL HISTORY: Nonsmoker, nondrinker. Lives with family in an upstairs apartment. ALLERGIES: None. HOME MEDICATIONS: Prozac 40, Keppra, it appears the patient is taking 500 every other day, prednisone as directed, scheduled p.r.n., Flexeril and oxycodone, Ocrevus q. 6 months. PHYSICAL EXAMINATION: VITAL SIGNS: 36.5, 96, 18, 133/83, 96%. GENERAL: The patient is awake and alert, spontaneous speech and language are unremarkable. NECK: Supple. There are no carotid bruits. HEART: No heart murmurs. Heart has regular rate and rhythm. NEUROLOGIC: Pupils are equal. I could not visualize the optic nerves. There is normal gama, motility, mild flattening of left nasolabial fold. MOTOR: Right upper extremity full. Left upper extremity 4/5 with left drift and decreased rapid alternating movements. Right lower extremity about 4/5, left lower extremity less than 3/5. Tone normal. There is dystaxia in bilateral [id number] and [id number]-[id number]. REFLEXES: Symmetric. Toes are mute. Feet were high arched. No sensory abnormalities are noted. IMPRESSION: Presumed flare of multiple sclerosis. PLAN: 1. Three days of IV steroids followed by oral steroid taper 80 mg for 2 days, 60 for 4 days, 40 for 4, 20 for 4, 10 for 4 and then off. Recommend PT and OT evaluation. The patient may well need inpatient rehabilitation. Workup of hypercalcemia recommended. 2. History of possible seizure. It does not appear that the patient is currently receiving Keppra. I will restart it on an every other day basis as he has been taking it and the patient can make a determination with Dr. Pereyra whether to continue on drug. MTDD
--- NOTE | 2017-06-13 12:53 | DIAGNOSTIC IMAGING REPORT ---
MRI OF THE BRAIN WITHOUT AND WITH IV CONTRAST CLINICAL HISTORY: Multiple sclerosis. Increasing symptoms. Dizziness, headaches, blurred vision. Left-sided weakness. COMPARISON STUDY: 04/20/2016 TECHNIQUE: MRI of the brain was performed from the vertex to the skull base utilizing various T1 and T2 weighted sequences. Following the IV administration of 8 mL of Gadavist contrast, additional enhanced images were obtained. FINDINGS: Sagittal T1, axial diffusion, proton density and T2 weighted axial, coronal FLAIR, and pre and post axial T1-weighted images were acquired. These were supplemented with post gadolinium coronal T1 weighted images. No intra or extra-axial mass lesions are visualized. Axial diffusion-weighted images reveal no evidence of acute or subacute infarction. There is no evidence of ventricular dilatation. Proton density T2-weighted and FLAIR images reveal multiple foci of increased T2 and FLAIR signal including lesions involving the cerebellum, javier, periventricular white matter and subcortical U fibers. Several lesions have orientation perpendicular to the ependymal surface, a finding typical for multiple sclerosis plaques. The number of lesions appears similar to the preceding study. There are no abnormal flow voids. Postcontrast images reveal no evidence of pathologic enhancement IMPRESSION: 1. Extensive white matter plaques, similar to the prior study. The findings are consistent with the clinical diagnosis of multiple sclerosis. There is no current evidence of pathologic enhancement. Electronically signed by: Romeo Humphries M.D. 06/13/2017 12:52 PM Dictated Date/Time: 06/13/2017 12:45 PM
[2017-06-13] MEDS: LEVETIRACETAM 500 MG TAB PO SCH (13:39)
[2017-06-13 16:11] VITALS: BP 115/69; PULSE 97; TEMP 36.5; O2SAT 97
[2017-06-13 20:00] VITALS: BP 112/73; PULSE 88; TEMP 36.5; O2SAT 96
[2017-06-14] VITALS (7 sets, daily range): BP systolic 96–123; BP diastolic 61–76; PULSE 72–88; TEMP 36.3–36.5; O2SAT 92–97
[2017-06-14] MEDS: SODIUM CHLORIDE 0.9% 1000ML 1,000 ML IV SCH ×4 (03:06→23:23)
[2017-06-14 07:45] LABS: HEMATOCRIT 36.2 % (42-52); MEAN CELL VOLUME 89.2 fL (80-100); MEAN CORPUSCULAR HEMOGLOBIN 29.6 pg (25-34); MEAN CORPUSCULAR HGB CONC 33.1 g/dl (32-36); MEAN PLATELET VOLUME 9.9 fL (7.4-10.4); PLATELET COUNT 263 K/uL (130-400); RED CELL DISTRIBUTION WIDTH CV 12.7 % (11.5-14.5); RED CELL DISTRIBUTION WIDTH SD 40.7 fL (36.4-46.3); WHITE BLOOD COUNT 11.78 K/uL (4.8-10.8)
[2017-06-14 08:13] LABS: CALCIUM 9.7 mg/dl (8.5-10.1); CREATININE 1.24 mg/dl (0.60-1.40); POTASSIUM 3.9 mmol/L (3.5-5.1)
[2017-06-14] MEDS: METHYLPREDNISOLONE IV 40 MG in SYRINGE 0 ML IV SCH (08:29)
[2017-06-14] MEDS: OXYCODONE HCL IR 5 MG TAB (IMMEDIATE RELEASE) PO PRN ×2 (08:29→19:42)
[2017-06-14] MEDS: FLUOXETINE HCL 20 MG CAP PO SCH (08:29)
--- NOTE | 2017-06-14 12:10 | PROGRESS NOTE ---
DATE: 06/14/2017 I am seeing Mr. Ramirez in followup of a flare of multiple sclerosis. His MRI of the brain showed no new or enhancing lesion, although it did show significant white matter changes. He is feeling much improved today. He has not had any lightheadedness, but he is still having ambulatory difficulty. Physical therapy wants to see him. PHYSICAL EXAM: VITAL SIGNS: 36.3, 72, 18, 115/76. NEUROLOGIC: The patient is awake, alert, minimally dysarthric. Mild flattening of the left nasal labial fold. Modest lower extremity weakness, left greater than right, although he is, which is improved. IMPRESSION: This patient has fairly significant multiple sclerosis, relapsing remitting. Continue steroid taper for three days followed by the previously mentioned oral taper. I believe the patient will need inpatient physical therapy and he is willing to pursue that. He should continue his outpatient therapy with Ocrevus. ERIC
--- NOTE | 2017-06-14 16:49 | Progress Note ---
Subjective Date of Service: Jun 14, 2017. Subjective Pt evaluation today including: conversation w/ patient, physical exam, lab review, review of studies, review of inpatient medication list Saw/examined the patient in room 277 He's doing well +weakness, especially on the L side persists Denies any shortness of breath/chest pain/palpitations Problem List Medical Problems: (1) Exacerbation of multiple sclerosis Status: Acute (2) Hyperkalemia Status: Acute (3) Pneumonia Status: Acute (4) Vomiting Status: Acute Review of Systems Constitutional: + weakness, + fatigue, No fever, No chills Respiratory: No cough, No sputum, No wheezing, No shortness of breath, No dyspnea on exertion, No dyspnea at rest, No hemoptysis Cardiac: No chest pain, No edema, No palpitations Abdomen: No pain, No nausea, No vomiting, No diarrhea, No constipation, No GI bleeding Medications Current Inpatient Medications Medications (Trade) Dose Ordered Sig/Jas Route Start Time Stop Time Status Last Admin Dose Admin Sodium Chloride 1,000 ml @ 150 mls/hr Q6H40M IV 06/13/17 07:00 07/13/17 06:59 06/14/17 08:30 150 MLS/HR Acetaminophen (Tylenol Tab) 650 mg Q4H PRN PO 06/13/17 04:45 07/13/17 04:44 06/13/17 06:27 650 MG Ondansetron HCl (Zofran Inj) 4 mg Q6H PRN IV 06/13/17 04:45 07/13/17 04:44 Methylprednisolone Sodium Succinate 40 mg/Syringe 0.64 ml @ 1.5 mls/min DAILY IV 06/13/17 09:00 07/13/17 08:59 06/14/17 08:29 1.5 MLS/MIN Cyclobenzaprine HCl (Flexeril Tab) 10 mg TID PRN PO 06/13/17 04:45 07/13/17 04:44 Fluoxetine HCl (Prozac Cap) 40 mg DAILY PO 06/13/17 09:00 07/13/17 08:59 06/14/17 08:29 40 MG Oxycodone HCl (Roxicodone Immediate Rel Tab) 30 mg TID PRN PO 06/13/17 04:45 06/27/17 04:44 06/14/17 08:29 30 MG Levetiracetam (Keppra Tab) 500 mg Q2D@0900 PO 06/13/17 12:15 07/13/17 12:14 06/13/17 13:39 500 MG Objective Vital Signs Date Time Temp Pulse Resp B/P (MAP) Pulse Ox O2 Delivery O2 Flow Rate FiO2 06/14/17 16:12 36.5 87 18 123/72 (89) 97 Room Air 06/14/17 16:00 Room Air 06/14/17 12:18 36.5 74 18 102/66 (78) 97 Room Air 06/14/17 12:00 Room Air 06/14/17 08:00 Room Air 06/14/17 07:31 36.3 72 18 115/76 (89) 92 Room Air 06/14/17 04:35 36.3 80 16 96/68 (77) 94 Room Air 06/14/17 04:00 Room Air 06/14/17 00:12 36.4 88 20 109/71 (84) 96 Room Air 06/14/17 00:00 Room Air 06/13/17 20:00 Room Air 06/13/17 20:00 36.5 88 20 112/73 (86) 96 Room Air Physical Exam General Appearance: no apparent distress Respiratory/Chest: lungs clear, normal breath sounds, no respiratory distress, no accessory muscle use Cardiovascular: regular rate, rhythm, no edema, no murmur Extremities: normal inspection, no pedal edema Neurologic/Psychiatric: alert, oriented x 3, + motor weakness Laboratory Results Last 24 Hours Test 06/14/17 07:02 06/14/17 11:38 White Blood Count 11.78 K/uL Red Blood Count 4.06 M/uL Hemoglobin 12.0 g/dL Hematocrit 36.2 % Mean Corpuscular Volume 89.2 fL Mean Corpuscular Hemoglobin 29.6 pg Mean Corpuscular Hemoglobin Concent 33.1 g/dl RDW Standard Deviation 40.7 fL RDW Coefficient of Variation 12.7 % Platelet Count 263 K/uL Mean Platelet Volume 9.9 fL Sodium Level 144 mmol/L Potassium Level 3.9 mmol/L Chloride Level 114 mmol/L Carbon Dioxide Level 27 mmol/L Anion Gap 3.0 mmol/L Blood Urea Nitrogen 15 mg/dl Creatinine 1.24 mg/dl Est Creatinine Clear Calc Drug Dose 84.3 ml/min Estimated GFR () 82.0 Estimated GFR (Non- 70.8 BUN/Creatinine Ratio 12.2 Random Glucose 85 mg/dl Calcium Level 9.7 mg/dl Magnesium Level 2.1 mg/dl Bedside Glucose 116 mg/dl Assessment and Plan This is a 41 year old male with a past medical history of multiple sclerosis, depression, hx. of seizures, chronic pain syndrome, and recurrent hypercalcemia - presents with elevated calcium levels and weakness Hypercalcemia in the setting of Primary Hyperparathyroidism - patient should follow-up with ENT as outpatient - received fluids and Zometa here with good improvement of calcium levels MS Flare - appreciate neurology input - will need one more day of IV steroids, then switch to an oral taper - will need rehab on discharge - [facility] - receives IV injections q6 months for MS Hx. of Seizures - continue Hawk Depression - continue Lexapro DVT ppx - SCDs FULL CODE
[2017-06-15] VITALS (8 sets, daily range): BP systolic 109–135; BP diastolic 68–80; PULSE 75–92; TEMP 36.3–36.5; O2SAT 96–97
[2017-06-15] MEDS: SODIUM CHLORIDE 0.9% 1000ML 1,000 ML IV SCH (05:54)
[2017-06-15] MEDS: LEVETIRACETAM 500 MG TAB PO SCH (07:52)
[2017-06-15] MEDS: METHYLPREDNISOLONE IV 40 MG in SYRINGE 0 ML IV SCH (07:52)
[2017-06-15] MEDS: FLUOXETINE HCL 20 MG CAP PO SCH (07:53)
--- NOTE | 2017-06-15 13:58 | Progress Note ---
Subjective Date of Service: Jun 15, 2017. Subjective Pt evaluation today including: conversation w/ patient, physical exam, lab review, review of studies, review of inpatient medication list Saw/examined the patient in room 277-1 He is doing well, did well with therapy this morning Eager to get to [facility] Problem List Medical Problems: (1) Exacerbation of multiple sclerosis Status: Acute (2) Hyperkalemia Status: Acute (3) Pneumonia Status: Acute (4) Vomiting Status: Acute Review of Systems Constitutional: + weakness, No fever, No chills Respiratory: No cough, No sputum, No shortness of breath Cardiac: No chest pain, No edema, No palpitations Abdomen: No pain, No nausea, No vomiting, No diarrhea Heme: No abnormal bleeding/bruising Medications Current Inpatient Medications Medications (Trade) Dose Ordered Sig/Jas Route Start Time Stop Time Status Last Admin Dose Admin Acetaminophen (Tylenol Tab) 650 mg Q4H PRN PO 06/13/17 04:45 07/13/17 04:44 06/13/17 06:27 650 MG Ondansetron HCl (Zofran Inj) 4 mg Q6H PRN IV 06/13/17 04:45 07/13/17 04:44 Cyclobenzaprine HCl (Flexeril Tab) 10 mg TID PRN PO 06/13/17 04:45 07/13/17 04:44 Fluoxetine HCl (Prozac Cap) 40 mg DAILY PO 06/13/17 09:00 07/13/17 08:59 06/15/17 07:53 40 MG Oxycodone HCl (Roxicodone Immediate Rel Tab) 30 mg TID PRN PO 06/13/17 04:45 06/27/17 04:44 06/14/17 19:42 30 MG Levetiracetam (Keppra Tab) 500 mg Q2D@0900 PO 06/13/17 12:15 07/13/17 12:14 06/15/17 07:52 500 MG Objective Vital Signs Date Time Temp Pulse Resp B/P (MAP) Pulse Ox O2 Delivery O2 Flow Rate FiO2 06/15/17 08:08 36.5 77 16 109/68 (82) 96 Room Air 06/15/17 08:00 97 Room Air 96 06/15/17 04:23 36.5 75 16 114/72 (86) 97 Room Air 06/15/17 04:00 Room Air 06/15/17 00:58 36.3 92 20 124/71 (88) 96 Room Air 06/15/17 00:00 Room Air 06/14/17 20:00 Room Air 06/14/17 19:53 36.3 82 20 120/73 (89) 97 Room Air 06/14/17 16:12 36.5 87 18 123/72 (89) 97 Room Air 06/14/17 16:00 Room Air Physical Exam General Appearance: no apparent distress Eyes: normal inspection Respiratory/Chest: lungs clear, normal breath sounds, no respiratory distress, no accessory muscle use Cardiovascular: regular rate, rhythm, no edema, no murmur Neurologic/Psychiatric: alert, + motor weakness (L side, LLE) Assessment and Plan This is a 41 year old male with a past medical history of multiple sclerosis, depression, hx. of seizures, chronic pain syndrome, and recurrent hypercalcemia - presents with elevated calcium levels and weakness Hypercalcemia in the setting of Primary Hyperparathyroidism 06/15 - calcium is much improved - will likely need vitamin D 400 international units daily on discharge - to stay well hydrated, moderate calcium diet, increase and persistent activity - outpatient ENT follow-up - may need cinacalcet if recurrent calcium 06/14 - patient should follow-up with ENT as outpatient - received fluids and Zometa here with good improvement of calcium levels MS Flare 06/15 - prednisone 80mg on 06/16, 06/17 - then prednisone 60mg x4 days, 40mg x4 days, 20mg x4 days, 10mg x4 days, then stop - outpatient neurology follow-up - continued PT/OT - d/c to rehab when able 06/14 - appreciate neurology input - will need one more day of IV steroids, then switch to an oral taper - will need rehab on discharge - [facility] - receives IV injections q6 months for MS Hx. of Seizures - Keppra every other day for now - outpatient neurology follow-up Depression - continue Lexapro DVT ppx - SCDs FULL CODE
--- NOTE | 2017-06-15 15:29 | Neurology Progress Notes ---
Neurology Progress Note Date of Service Jun 15, 2017. Oscar Retana is a 41 male PMH MS diagnosed at age 30 also with depression, seizure disorder and chronic pain syndrome, presented with increased dizziness, vertigo, instability and worsening left leg weakness. He denies headache. He is currently on Ocrevus which he has received 3 times and is due to receive his next dose next month. Previously he was on Tecfidera but was found to have the VIDA viruse antibody. Over all doing well on Ocrevus. Objective Date Time Temp Pulse Resp B/P (MAP) Pulse Ox O2 Delivery O2 Flow Rate FiO2 06/15/17 08:08 36.5 77 16 109/68 (82) 96 Room Air 06/15/17 08:00 97 Room Air 96 06/15/17 04:23 36.5 75 16 114/72 (86) 97 Room Air 06/15/17 04:00 Room Air 06/15/17 00:58 36.3 92 20 124/71 (88) 96 Room Air 06/15/17 00:00 Room Air 06/14/17 20:00 Room Air 06/14/17 19:53 36.3 82 20 120/73 (89) 97 Room Air 06/14/17 16:12 36.5 87 18 123/72 (89) 97 Room Air 06/14/17 16:00 Room Air no new labs Imaging: MRI brain with and without- . Extensive white matter plaques, similar to the prior study. The findings are consistent with the clinical diagnosis of multiple sclerosis. There is no current evidence of pathologic enhancement. Exam: Physical Exam: Constitutional: appearance nourished, healthy and normal Ears, Nose, Mouth and Throat: mucous membranes moist, no injection and skin normal, eyes normal Cardiovascular: normal S-1 and S-2 and regular rate and rhythm Respiratory: clear to auscultation (CTA) and no rales, rhonchi or wheeze Musculoskeletal: no peripheral edema and good distal pulses Skin: no stigmata of neurocutaneous disease noted and normal and intact Eyes: extraocular muscles intact (EOMI) and pupils equal, round and reactive to light (PERRL) NEUROLOGIC EXAMINATION: Mental status: Alert and interactive Oriented to full date and location Oriented to person Speech fluent with no evidence of aphasia Cranial Nerves smile eye brow raise symmetric Sensory: intact to light touch Coordination: finger to nose no bi pass Gait/Stance: Posture lying in bed Strength: biceps triceps hand solution director 5/5 bilaterally, left hip flex 3/5, plantar flex ext 0/ 5, right hip flex 5/5, plantar flex ext 5/5 Current Inpatient Medications Medications (Trade) Dose Ordered Sig/Jas Route Start Time Stop Time Status Last Admin Dose Admin Acetaminophen (Tylenol Tab) 650 mg Q4H PRN PO 06/13/17 04:45 07/13/17 04:44 06/13/17 06:27 650 MG Ondansetron HCl (Zofran Inj) 4 mg Q6H PRN IV 06/13/17 04:45 07/13/17 04:44 Cyclobenzaprine HCl (Flexeril Tab) 10 mg TID PRN PO 06/13/17 04:45 07/13/17 04:44 Fluoxetine HCl (Prozac Cap) 40 mg DAILY PO 06/13/17 09:00 07/13/17 08:59 06/15/17 07:53 40 MG Oxycodone HCl (Roxicodone Immediate Rel Tab) 30 mg TID PRN PO 06/13/17 04:45 06/27/17 04:44 06/14/17 19:42 30 MG Levetiracetam (Keppra Tab) 500 mg Q2D@0900 PO 06/13/17 12:15 07/13/17 12:14 06/15/17 07:52 500 MG Impression 41 year old male with multiple sclerosis and flare Plan 1. continue Ocrevus for his MS next appointment 06/2017 2. Keppra 500 mg every other day started as self reported 3. currently receiving 3 days IV steroids. He will be discharged on prednisone 60 mg x 4 days, then 40 mg x 4 days, then 20 mg x 4 days, then 10 mg x 4 days then stop 4. waiting for approval for inpatient rehab from insurance [email or web address] 5. chronically NS for appointments in neurology 6. continue mofit boot for left foot droop 7. hyper calcemia work up - elevated parathyroid hormone follow up appointment 2-3 weeks after discharge from rehab- Dr Ricky Ruiz or Rachel Rincon PAC schedule Pt seen and examined, as above. Pt can discuss ongoing anticonvulsant use with Dr Ruiz. RAMAN Olivares MD
[2017-06-15] MEDS ORDERED: CHOL400T PO (16:38)
[2017-06-15] MEDS ORDERED: PRED10TA PO (16:38)
[2017-06-15] MEDS ORDERED: LEVE250T PO (16:38)
--- NOTE | 2017-06-15 16:43 | Discharge Instructions ---
Discharge Instructions Date of Service Jun 15, 2017. Admission Reason for Admission: Exacerbation Of Multiple Sclerosis, Hypercalcemia Discharge Discharge Diagnosis / Problem: MS Flare, Elevated Calcium, Elevated parathyroid hormone levels Discharge Goals Goal(s): Decrease discomfort, Improve function, Diagnostic testing, Therapeutic intervention Activity Recommendations Activity Limitations: resume your previous activity . Instructions / Follow-Up Instructions / Follow-Up Please follow-up with your primary care physician after stay at [facility] Please follow-up with neurology in 2-3 weeks * Prednisone taper as follows * prednisone 80mg on 06/16, 06/17 * then prednisone 60mg x4 days, 40mg x4 days, 20mg x4 days, 10mg x4 days, then stop * Please take vitamin D 400 IU daily * To prevent elevated calcium levels - stay well hydrated, continue ambulation/ therapy, you should be on a moderate calcium diet * Outpatient ENT follow-up regarding elevated parathyroid hormone levels Current Hospital Diet Patient's current hospital diet: AHA Diet (Heart Healthy) Discharge Diet Recommended Diet: AHA Diet (Heart Healthy) Pending Studies Studies pending at discharge: no Medical Emergencies . Who to Call and When: Medical Emergencies: If at any time you feel your situation is an emergency, please call 911 immediately. . Non-Emergent Contact Non-Emergency issues call your: Primary Care Provider, Neurologist . . "Provider Documentation" section prepared by Pascale Esparza. .
[2017-06-15] MEDS: OXYCODONE HCL IR 5 MG TAB (IMMEDIATE RELEASE) PO PRN (16:49)
[2017-06-16] VITALS (11 sets, daily range): BP systolic 118–146; BP diastolic 74–81; PULSE 74–93; TEMP 36.4–36.7; O2SAT 93–100
[2017-06-16] MEDS: OXYCODONE HCL IR 5 MG TAB (IMMEDIATE RELEASE) PO PRN ×3 (06:16→22:32)
[2017-06-16 07:01] LABS: HEMATOCRIT 37.6 % (42-52); HEMOGLOBIN 12.6 g/dL (14.0-18.0); MEAN CELL VOLUME 88.7 fL (80-100); MEAN CORPUSCULAR HEMOGLOBIN 29.7 pg (25-34); MEAN CORPUSCULAR HGB CONC 33.5 g/dl (32-36); MEAN PLATELET VOLUME 9.9 fL (7.4-10.4); PLATELET COUNT 291 K/uL (130-400); RED CELL DISTRIBUTION WIDTH CV 12.7 % (11.5-14.5); RED CELL DISTRIBUTION WIDTH SD 40.5 fL (36.4-46.3); WHITE BLOOD COUNT 8.57 K/uL (4.8-10.8)
[2017-06-16 07:30] LABS: CALCIUM 9.8 mg/dl (8.5-10.1); CREATININE 1.19 mg/dl (0.60-1.40); POTASSIUM 3.1 mmol/L (3.5-5.1)
[2017-06-16 07:42] LABS: PHOSPHORUS 1.8 mg/dl (2.5-4.9)
[2017-06-16] MEDS: FLUOXETINE HCL 20 MG CAP PO SCH (07:54)
[2017-06-16] MEDS ORDERED: POTASSIUM PHOS 3 MMOL/1 ML INFUSION IV STA (10:15)
[2017-06-16] MEDS ORDERED: POTASSIUM CHLORIDE 20 MEQ TABCR PO STA (10:21)
[2017-06-16] MEDS ORDERED: POTASSIUM PHOSPHATE INJ 30 MMOL in SODIUM CHLORIDE 0.9% 500ML 500 ML IV ONE (10:30)
--- NOTE | 2017-06-16 15:21 | Progress Note ---
Internal Med Progress Note Date of Service: Jun 16, 2017. Provider Documentation: SUBJECTIVE: Patient has similar symptoms of left sided weakness as documented in the past and also shaking of left lower extremity which patient says is chronic due to the history of MS. Patient's labs noted for serum potassium of 3.1 and serum phosphate of 1.8. Patient was given 60 meq oral potassium and 30 mmol potassium phosphate. OBJECTIVE: General Appearance: no apparent distress Eyes: normal inspection, EOMI Neck: No JVD Respiratory/Chest: lungs clear, normal breath sounds, no respiratory distress, no accessory muscle use Cardiovascular: regular rate, rhythm, no edema, no murmur Abdomen: soft, nontender, nondistended, + bowel sounds Neurologic/Psychiatric: alert, awake, left sided weakness, shaking of left lower extremity ASSESSMENT & PLAN: This is a 41 year old male with a past medical history of multiple sclerosis, depression, hx. of seizures, chronic pain syndrome, and recurrent hypercalcemia - presents with elevated calcium levels and weakness Hospital Course and Discharge instructions Patient was admitted for correction of electrolytes and physical therapy and neurology evaluation of multiple scleroids flare Neurology service recommends continue Ocrevus for his MS next appointment 06/2017, Keppra 500 mg every other day, patient received IV steroids as inpatient and to discharge on prednisone taper, continue mofit boot for left foot droop, follow up appointment 2-3 weeks after discharge from rehab- Dr Ricky Ruiz or Rachel ZUÑIGA [facility] appointment line [phone] has reported that there is a scheduled appointment on August 13 2017 at 3:25 PM [facility] [address] 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 Patient was given 60 meq oral potassium and 30 mmol potassium phosphate Vital Signs: Date Time Temp Pulse Resp B/P (MAP) Pulse Ox O2 Delivery O2 Flow Rate FiO2 06/16/17 12:17 36.4 76 18 118/80 (93) 93 06/16/17 12:01 98 Room Air 06/16/17 08:00 98 Room Air 06/16/17 07:16 36.5 74 16 123/76 (92) 98 Room Air 06/16/17 04:00 Room Air 06/16/17 03:46 36.5 76 18 127/74 (91) 98 Room Air 06/16/17 00:00 36.7 85 20 125/74 (91) 97 Room Air 06/16/17 00:00 Room Air 06/15/17 20:00 Room Air 06/15/17 19:47 36.5 83 20 135/80 (98) 96 06/15/17 16:00 97 Room Air 96 06/15/17 15:52 36.4 82 20 128/79 (95) 97 Lab Results: Results Past 24 Hours Test 06/16/17 06:30 06/16/17 15:20 Range/Units White Blood Count 8.57 4.8-10.8 K/uL Red Blood Count 4.24 4.7-6.1 M/uL Hemoglobin 12.6 14.0-18.0 g/dL Hematocrit 37.6 42-52 % Mean Corpuscular Volume 88.7 80-100 fL Mean Corpuscular Hemoglobin 29.7 25-34 pg Mean Corpuscular Hemoglobin Concent 33.5 32-36 g/dl RDW Standard Deviation 40.5 36.4-46.3 fL RDW Coefficient of Variation 12.7 11.5-14.5 % Platelet Count 291 130-400 K/uL Mean Platelet Volume 9.9 7.4-10.4 fL Sodium Level 142 136-145 mmol/L Potassium Level 3.1 3.5-5.1 mmol/L Chloride Level 109 98-107 mmol/L Carbon Dioxide Level 31 21-32 mmol/L Anion Gap 2.0 3-11 mmol/L Blood Urea Nitrogen 16 7-18 mg/dl Creatinine 1.19 0.60-1.40 mg/dl Est Creatinine Clear Calc Drug Dose 87.9 ml/min Estimated GFR () 86.2 Estimated GFR (Non- 74.4 BUN/Creatinine Ratio 13.7 10-20 Random Glucose 85 70-99 mg/dl Calcium Level 9.8 8.5-10.1 mg/dl Phosphorus Level 1.8 2.5-4.9 mg/dl Magnesium Level 2.2 1.8-2.4 mg/dl 25-Hydroxy Vitamin D Total 14.0 30-100 ng/ml Thyroid Stimulating Hormone (TSH) 1.110 0.300-4.500 uIu/ml
--- NOTE | 2017-06-16 15:44 | Discharge Summary ---
Discharge Summary Date of Service Jun 16, 2017. Discharge Summary Admission Date: Jun 13, 2017 at 04:41 Discharge Date: Jun 15, 2017 Discharge Disposition: Home Principal Diagnosis: Multiple Sclerosis flare, Hypercalcemia with elevated parathyroid hormone and vitamin D insufficiency, Hypokalemia, Hypophosphatemia, Ambulatory dysfunction with history of falls Medication Reconciliation New Medications: Cholecalciferol (Vitamin D) 400 Unit Tab 400 INTER.UNIT PO DAILY for 30 Days, TABS Prednisone Tab (Prednisone) 10 Mg Tab 10 MG PO UD for 18 Days, #68 TAB Changed Medications: Levetiracetam (Keppra) 250 Mg Tab 2 TAB PO Q2D for 30 Days, #30 TAB (Changed from: DAILY) Continued Medications: Cyclobenzaprine Hcl (Flexeril) 10 Mg Tab 10 MG PO TID PRN for Pain, #21 TAB Fluoxetine (Prozac) 40 Mg Cap 40 MG PO DAILY, CAP Ocrelizumab (Ocrevus) 300 Mg/10 Ml Inj Oxycodone HCl (Oxycodone HCl) 30 Mg Tab 30 MG PO Q6H PRN for Pain, #1 Discontinued Medications: Prednisone (Prednisone) 10 Mg Tab 10 MG PO DIRECTED, #7 TAB 0 Refills 04/21/16: take 4 tabs po x 1, 04/22/16: take 2 tabs po x 1, 04/23/16: take 1 tab po x 1 then stop. Admission Information HPI (per Admitting provider): Patient is a 41-year-old male with past medical history of multiple sclerosis, depression, seizure disorder, chronic pain syndrome and other problems presents with history of nausea and vomiting, dizziness, left leg weakness, intermittent blurry vision and headache since yesterday. Patient was treated in Apr 2016 at [facility] for hypercalcemia which was thought to be secondary to primary hyperparathyroidism. Patient was advised to follow-up with the ENT for further management at the time but patient did not follow up as advised. He started noticing constant lightheadedness and dizziness since yesterday and also developed worsening left lower extremity weakness which resulted him to trip and hit his head to wall. He developed frontal and retrobulbar headache since after the fall. He states his MS has been very well controlled with IV Ocrevus which he takes every 6 months. Follows with as outpatient. CT head done today is normal. He states intermittent blurry vision and left leg weakness is chronic and the symptoms get worse in with his MS flare. Denies any history of chest pain, SOB, cough, fever, chills, numbness, tingling, slurred speech, facial deformity, abdominal pain, diarrhea, dysuria, sick contact, recent change in medications. Physical Exam (per Admitting): General Appearance: WD/WN, no apparent distress Head: normocephalic, atraumatic Eyes: normal inspection, PERRL, EOMI, sclerae normal ENT: normal ENT inspection, hearing grossly normal Neck: supple, trachea midline Respiratory/Chest: chest non-tender, lungs clear, normal breath sounds, no respiratory distress, no accessory muscle use Cardiovascular: regular rate, rhythm, no edema, no murmur, + tachycardia Abdomen/GI: normal bowel sounds, non tender, soft Back: normal inspection Extremities/Musculoskelatal: normal inspection, no pedal edema, + pertinent finding (LLE in brace) 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 of seizures, chronic pain syndrome, and recurrent hypercalcemia - presents with elevated calcium levels and weakness Hospital Course and Discharge instructions Patient was admitted for correction of electrolytes and physical therapy and neurology evaluation of multiple scleroids flare Neurology service recommends continue Ocrevus for his MS next appointment 06/2017, Keppra 500 mg every other day, patient received IV steroids as inpatient and to discharge on prednisone taper, continue mofit boot for left foot droop, follow up appointment 2-3 weeks after discharge from rehab- Dr Ricky Ruiz or Rachel ZUÑIGA [facility] appointment line [phone] has reported that there is a scheduled appointment on August 13 2017 at 3:[address] [facility] [address] 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 Patient was given 60 meq oral potassium and 30 mmol potassium phosphate Total time spent on discharge = 40 minutes This includes examination of the patient, discharge planning, medication reconciliation, and communication with other providers. Discharge Instructions Instructions / Follow-Up Please follow-up with your primary care physician after stay at [facility] Please follow-up with neurology in 2-3 weeks Prednisone taper as follows prednisone 80mg on 06/16, 06/17 then prednisone 60mg x4 days, 40mg x4 days, 20mg x4 days, 10mg x4 days, then stop Please take vitamin D 400 IU daily To prevent elevated calcium levels - stay well hydrated, continue ambulation/ therapy, you should be on a moderate calcium diet Outpatient ENT follow-up regarding elevated parathyroid hormone levels Addendum 06/16/17 This is a 41 year old male with a past medical history of multiple sclerosis, depression, hx. of seizures, chronic pain syndrome, and recurrent hypercalcemia - presents with elevated calcium levels and weakness Hospital Course and Discharge instructions Patient was admitted for correction of electrolytes and physical therapy and neurology evaluation of multiple scleroids flare Neurology service recommends continue Ocrevus for his MS next appointment 06/2017, Keppra 500 mg every other day, patient received IV steroids as inpatient and to discharge on prednisone taper, continue mofit boot for left foot droop, follow up appointment 2-3 weeks after discharge from rehab- Dr Ricky Ruiz or Rachel ZUÑIGA [facility] appointment line [phone] has reported that there is a scheduled appointment on August 13 2017 at 3:[address] [facility] [address] Ricky Ruiz at [address], [place] [address] Hypercalcemia with elevated parathyroid hormone and vitamin D insufficiency Patient's calcium levels treated with zoledronic acid and IV fluids Patient to be discharged with vitamin D supplements Patient will need to follow up with primary care physician on vitamin D management and hypercalcemia management Patient may need Ear/Nose/Throat (ENT) evaluation on whether a parathyroidectomy is needed to treat the hypercalcemia senior care AM labs on 06/16/17 discharge day: Patient's labs noted for serum potassium of 3.1 and serum phosphate of 1.8. Patient was given 60 meq oral potassium and 30 mmol potassium phosphate Vital Signs:
[2017-06-16 16:01] LABS: PHOSPHORUS 1.3 mg/dl (2.5-4.9); POTASSIUM 4.6 mmol/L (3.5-5.1)
[2017-06-16] MEDS ORDERED: SODIUM PHOSPHATE 3 MMOL/1 ML INFUSION IV STA (16:08)
[2017-06-16] MEDS ORDERED: SODIUM PHOSPHATE INJ 40 MMOL in SODIUM CHLORIDE 0.9% 1000ML 1,000 ML IV ONE (16:30)
[2017-06-16 23:04] LABS: ALBUMIN 3.5 gm/dl (3.4-5.0); CALCIUM 9.7 mg/dl (8.5-10.1); CREATININE 1.3 mg/dl (0.60-1.40); POTASSIUM 4.6 mmol/L (3.5-5.1)
[2017-06-16 23:13] LABS: PHOSPHORUS 2.8 mg/dl (2.5-4.9); TOTAL PROTEIN 6.5 gm/dl (6.4-8.2)
[2017-06-17 04:34] VITALS: BP 135/76; PULSE 73; TEMP 36.5; O2SAT 99
[2017-06-17 07:21] VITALS: BP 125/80; PULSE 76; TEMP 36.4; O2SAT 98
[2017-06-17 07:50] LABS: ALBUMIN 3.2 gm/dl (3.4-5.0); CALCIUM 8.8 mg/dl (8.5-10.1); CREATININE 1.07 mg/dl (0.60-1.40); PHOSPHORUS 2.8 mg/dl (2.5-4.9); POTASSIUM 3.6 mmol/L (3.5-5.1); TOTAL PROTEIN 5.8 gm/dl (6.4-8.2)
[2017-06-17] MEDS: LEVETIRACETAM 500 MG TAB PO SCH (07:50)
[2017-06-17] MEDS: FLUOXETINE HCL 20 MG CAP PO SCH (07:50)
[2017-06-17] MEDS: OXYCODONE HCL IR 5 MG TAB (IMMEDIATE RELEASE) PO PRN (07:51)
[2017-06-17 08:00] VITALS: O2SAT 98
[2017-06-17] MEDS ORDERED: POTASSIUM CHLORIDE 20 MEQ TABCR PO STA (08:08)
[2017-06-17 12:00] VITALS: O2SAT 98
--- NOTE | 2017-06-17 12:08 | Progress Note ---
Internal Med Progress Note Date of Service: Jun 17, 2017. Provider Documentation: SUBJECTIVE: Patient denies new concerns. The electrolytes (i.e serum phosphorous) is acceptable level or normal and patient ready for [facility] OBJECTIVE: General Appearance: no apparent distress Eyes: normal inspection, EOMI Neck: No JVD Respiratory/Chest: lungs clear, normal breath sounds, no respiratory distress, no accessory muscle use Cardiovascular: regular rate, rhythm, no edema, no murmur Abdomen: soft, nontender, nondistended, + bowel sounds Neurologic/Psychiatric: alert, awake, left sided weakness ASSESSMENT & PLAN: This is a 41 year old male with a past medical history of multiple sclerosis, depression, hx. of seizures, chronic pain syndrome, and recurrent hypercalcemia - presents with elevated calcium levels and weakness Hospital Course and Discharge instructions Patient was admitted for correction of electrolytes and physical therapy and neurology evaluation of multiple scleroids flare Neurology service recommends continue Ocrevus for his MS next appointment 06/2017, Keppra 500 mg every other day, patient received IV steroids as inpatient and to discharge on prednisone taper, continue mofit boot for left foot droop, follow up appointment 2-3 weeks after discharge from rehab- Dr Ricky Ruiz or Rachel Rincon PAC [facility] appointment line [phone] has reported that there is a scheduled appointment on August 13 2017 at 3:[address] [facility] [address] Ricky Ruiz at [address], [place] [address] Hypercalcemia with elevated parathyroid hormone and vitamin D insufficiency Patient's calcium levels treated with zoledronic acid and IV fluids Patient to be discharged with vitamin D supplements Patient will need to follow up with primary care physician on vitamin D management and hypercalcemia management Patient may need Ear/Nose/Throat (ENT) evaluation on whether a parathyroidectomy is needed to treat the hypercalcemia alf Labs on 06/16/17: Patient's labs noted for serum potassium of 3.1 and serum phosphate of 1.8. Patient was given 60 meq oral potassium and 30 mmol potassium phosphate. Discharge was held as patient's serum phosphate was 1.3 after he received IV phosphate earlier. This decrease in serum phosphate likley from previous use of zolendronic acid in the hospital for treating the hypercalcemia. Patient received additional IV phosphate as sodium phosphate 40 mmol and serum phosphate 2.8 Labs on 06/17/17 shows stable serum phosphate. serum sodium is borderline elevated at 145 likely from the recent IV fluids with sodium content Disposition: Patient is ready for discharge to [facility] Vital Signs: Date Time Temp Pulse Resp B/P (MAP) Pulse Ox O2 Delivery O2 Flow Rate FiO2 06/17/17 08:00 98 Room Air 06/17/17 07:21 36.4 76 18 125/80 (95) 98 Room Air 06/17/17 04:34 36.5 73 16 135/76 (95) 99 Room Air 06/17/17 04:00 Room Air 06/17/17 00:00 Room Air 06/16/17 23:21 36.7 90 18 146/81 (102) 100 Room Air 06/16/17 20:00 98 Room Air 06/16/17 16:00 98 Room Air 06/16/17 16:00 98 Room Air 06/16/17 15:30 36.5 93 18 144/79 (100) 97 Room Air 06/16/17 15:17 36.4 76 18 93 Room Air 06/16/17 12:17 36.4 76 18 118/80 (93) 93 Lab Results: Results Past 24 Hours Test 06/16/17 15:20 06/16/17 22:29 06/17/17 07:16 Range/Units Potassium Level 4.6 4.6 3.6 3.5-5.1 mmol/L Phosphorus Level 1.3 2.8 2.8 2.5-4.9 mg/dl Sodium Level 141 145 136-145 mmol/L Chloride Level 109 112 98-107 mmol/L Carbon Dioxide Level 28 27 21-32 mmol/L Anion Gap 4.0 5.0 3-11 mmol/L Blood Urea Nitrogen 16 13 7-18 mg/dl Creatinine 1.30 1.07 0.60-1.40 mg/dl Est Creatinine Clear Calc Drug Dose 80.4 97.7 ml/min Estimated GFR () 77.5 98.0 Estimated GFR (Non- 66.8 84.6 BUN/Creatinine Ratio 12.2 12.1 10-20 Random Glucose 121 81 70-99 mg/dl Calcium Level 9.7 8.8 8.5-10.1 mg/dl Total Bilirubin 0.2 0.1 0.2-1 mg/dl Aspartate Amino Transf (AST/SGOT) 7 4 15-37 U/L Alanine Aminotransferase (ALT/SGPT) 24 21 12-78 U/L Alkaline Phosphatase 68 58 45-117 U/L Total Protein 6.5 5.8 6.4-8.2 gm/dl Albumin 3.5 3.2 3.4-5.0 gm/dl Globulin 3.0 2.6 2.5-4.0 gm/dl Albumin/Globulin Ratio 1.2 1.2 0.9-2 Magnesium Level 2.1 1.8-2.4 mg/dl
[2017-06-17 12:12] VITALS: BP 127/75; PULSE 93; O2SAT 97
--- NOTE | 2017-06-17 12:17 | Discharge Instructions ---
Discharge Instructions Date of Service Jun 17, 2017. Admission Reason for Admission: Exacerbation Of Multiple Sclerosis, Hypercalcemia Discharge Discharge Diagnosis / Problem: MS Flare, Elevated Calcium, Elevated parathyroid hormone levels Discharge Goals Goal(s): Decrease discomfort, Improve function, Improve disease control, Diagnostic testing Activity Recommendations Activity Limitations: per Instructions/Follow-up section Shower/Bathe: no limitations . Instructions / Follow-Up Instructions / Follow-Up This is a 41 year old male with a past medical history of multiple sclerosis, depression, hx. of seizures, chronic pain syndrome, and recurrent hypercalcemia - presents with elevated calcium levels and weakness Hospital Course and Discharge instructions Patient was admitted for correction of electrolytes and physical therapy and neurology evaluation of multiple scleroids flare Neurology service recommends continue Ocrevus for his MS next appointment 06/2017, Keppra 500 mg every other day, patient received IV steroids as inpatient and to discharge on prednisone taper, continue mofit boot for left foot droop, follow up appointment 2-3 weeks after discharge from rehab- Dr Ricky Ruiz or Rachel ZUÑIGA [facility] appointment line [phone] has reported that there is a scheduled appointment on August 13 2017 at 3:25 PM [facility] Dr. Ricky Ruiz at [address], [place] [address] Hypercalcemia with elevated parathyroid hormone and vitamin D insufficiency Patient's calcium levels treated with zoledronic acid and IV fluids Patient to be discharged with vitamin D supplements Patient will need to follow up with primary care physician on vitamin D management and hypercalcemia management Patient may need Ear/Nose/Throat (ENT) evaluation on whether a parathyroidectomy is needed to treat the hypercalcemia [facility] Labs on 06/16/17: Patient's labs noted for serum potassium of 3.1 and serum phosphate of 1.8. Patient was given 60 meq oral potassium and 30 mmol potassium phosphate. Discharge was held as patient's serum phosphate was 1.3 after he received IV phosphate earlier. This decrease in serum phosphate likley from previous use of zolendronic acid in the hospital for treating the hypercalcemia. Patient received additional IV phosphate as sodium phosphate 40 mmol and serum phosphate 2.8 Labs on 06/17/17 shows stable serum phosphate. serum sodium is borderline elevated at 145 likely from the recent IV fluids with sodium content Disposition: Patient is ready for discharge to [facility] Diet Patient's current hospital diet: AHA Diet (Heart Healthy) Discharge Diet Recommended Diet: AHA Diet (Heart Healthy) Pending Studies Studies pending at discharge: no Laboratory Results 06/16/17 06:30 06/17/17 07:16 Test 06/13/17 00:55 06/13/17 01:58 06/13/17 02:10 06/13/17 09:53 Chemistry Specimen Hemolysis Immature Granulocyte % (Auto) 0.2 % White Blood Count 8.16 K/uL (4.8-10.8) Red Blood Count 4.43 M/uL (4.7-6.1) Hemoglobin 13.2 g/dL (14.0-18.0) Hematocrit 38.1 % (42-52) Mean Corpuscular Volume 86.0 fL (80-100) Mean Corpuscular Hemoglobin 29.8 pg (25-34) Mean Corpuscular Hemoglobin Concent 34.6 g/dl (32-36) Platelet Count 296 K/uL (130-400) Mean Platelet Volume 9.4 fL (7.4-10.4) Neutrophils (%) (Auto) 89.1 % Lymphocytes (%) (Auto) 5.5 % Monocytes (%) (Auto) 4.9 % Eosinophils (%) (Auto) 0.1 % Basophils (%) (Auto) 0.2 % Neutrophils # (Auto) 7.26 K/uL (1.4-6.5) Lymphocytes # (Auto) 0.45 K/uL (1.2-3.4) Monocytes # (Auto) 0.40 K/uL (0.11-0.59) Eosinophils # (Auto) 0.01 K/uL (0-0.5) Basophils # (Auto) 0.02 K/uL (0-0.2) Immature Granulocyte # (Auto) 0.02 K/uL (0.00-0.02) Urine Color YELLOW Urine Appearance CLOUDY (CLEAR) Urine pH 7.5 (4.5-7.5) Urine Specific [place] 1.014 (1.000-1.030) Urine Protein NEG (NEG) Urine Glucose (UA) NEG (NEG) Urine Ketones 2+ (NEG) Urine Occult Blood 1+ (NEG) Urine Nitrite NEG (NEG) Urine Bilirubin NEG (NEG) Urine Urobilinogen NEG (NEG) Urine Leukocyte Esterase NEG (NEG) Urine WBC (Auto) 1-5 /hpf (0-5) Urine RBC (Auto) 5-10 /hpf (0-4) Urine Hyaline Casts (Auto) 1-5 /lpf (0-5) Urine Epithelial Cells (Auto) 10-20 /lpf (0-5) Urine Bacteria (Auto) NEG (NEG) Ionized Calcium 1.48 mmol/l (1.12-1.32) Parathyroid Hormone (Intact) 203.1 pg/mL (18.4-80.1) Test 06/14/17 11:38 06/16/17 06:30 06/17/17 07:16 Bedside Glucose 116 mg/dl (70-99) Red Blood Count 4.24 M/uL (4.7-6.1) Mean Corpuscular Volume 88.7 fL (80-100) Mean Corpuscular Hemoglobin 29.7 pg (25-34) Mean Corpuscular Hemoglobin Concent 33.5 g/dl (32-36) RDW Standard Deviation 40.5 fL (36.4-46.3) RDW Coefficient of Variation 12.7 % (11.5-14.5) Mean Platelet Volume 9.9 fL (7.4-10.4) 25-Hydroxy Vitamin D Total 14.0 ng/ml (30-100) Thyroid Stimulating Hormone (TSH) 1.110 uIu/ml (0.300-4.500) Anion Gap 5.0 mmol/L (3-11) Est Creatinine Clear Calc Drug Dose 97.7 ml/min Estimated GFR () 98.0 Estimated GFR (Non- 84.6 BUN/Creatinine Ratio 12.1 (10-20) Calcium Level 8.8 mg/dl (8.5-10.1) Phosphorus Level 2.8 mg/dl (2.5-4.9) Magnesium Level 2.1 mg/dl (1.8-2.4) Total Bilirubin 0.1 mg/dl (0.2-1) Aspartate Amino Transf (AST/SGOT) 4 U/L (15-37) Alanine Aminotransferase (ALT/SGPT) 21 U/L (12-78) Alkaline Phosphatase 58 U/L (45-117) Total Protein 5.8 gm/dl (6.4-8.2) Albumin 3.2 gm/dl (3.4-5.0) Globulin 2.6 gm/dl (2.5-4.0) Albumin/Globulin Ratio 1.2 (0.9-2) Medical Emergencies . Who to Call and When: Medical Emergencies: If at any time you feel your situation is an emergency, please call 911 immediately. . Non-Emergent Contact Non-Emergency issues call your: Primary Care Provider Call Non-Emergent contact if: you have any medication questions . . "Provider Documentation" section prepared by Krish Nieto. .
--- NOTE | 2017-06-17 12:23 | Discharge Summary ---
Discharge Summary Date of Service Jun 17, 2017. Discharge Summary Admission Date: Jun 13, 2017 at 04:41 Discharge Date: Jun 15, 2017 Discharge Disposition: Rehab ([facility]) Principal Diagnosis: Multiple Sclerosis flare, Hypercalcemia with elevated parathyroid hormone and vitamin D insufficiency, Hypokalemia, Hypophosphatemia, Ambulatory dysfunction with history of falls Medication Reconciliation New Medications: Cholecalciferol (Vitamin D) 400 Unit Tab 400 INTER.UNIT PO DAILY for 30 Days, TABS Prednisone Tab (Prednisone) 10 Mg Tab 10 MG PO UD for 18 Days, #68 TAB Changed Medications: Levetiracetam (Keppra) 250 Mg Tab 2 TAB PO Q2D for 30 Days, #30 TAB (Changed from: DAILY) Continued Medications: Cyclobenzaprine Hcl (Flexeril) 10 Mg Tab 10 MG PO TID PRN for Pain, #21 TAB Fluoxetine (Prozac) 40 Mg Cap 40 MG PO DAILY, CAP Ocrelizumab (Ocrevus) 300 Mg/10 Ml Inj Oxycodone HCl (Oxycodone HCl) 30 Mg Tab 30 MG PO Q6H PRN for Pain, #1 Discontinued Medications: Prednisone (Prednisone) 10 Mg Tab 10 MG PO DIRECTED, #7 TAB 0 Refills 04/21/16: take 4 tabs po x 1, 04/22/16: take 2 tabs po x 1, 04/23/16: take 1 tab po x 1 then stop. Admission Information HPI (per Admitting provider): Patient is a 41-year-old male with past medical history of multiple sclerosis, depression, seizure disorder, chronic pain syndrome and other problems presents with history of nausea and vomiting, dizziness, left leg weakness, intermittent blurry vision and headache since yesterday. Patient was treated in Apr 2016 at [facility] for hypercalcemia which was thought to be secondary to primary hyperparathyroidism. Patient was advised to follow-up with the ENT for further management at the time but patient did not follow up as advised. He started noticing constant lightheadedness and dizziness since yesterday and also developed worsening left lower extremity weakness which resulted him to trip and hit his head to wall. He developed frontal and retrobulbar headache since after the fall. He states his MS has been very well controlled with IV Ocrevus which he takes every 6 months. Follows with as outpatient. CT head done today is normal. He states intermittent blurry vision and left leg weakness is chronic and the symptoms get worse in with his MS flare. Denies any history of chest pain, SOB, cough, fever, chills, numbness, tingling, slurred speech, facial deformity, abdominal pain, diarrhea, dysuria, sick contact, recent change in medications. Physical Exam (per Admitting): General Appearance: WD/WN, no apparent distress Head: normocephalic, atraumatic Eyes: normal inspection, PERRL, EOMI, sclerae normal ENT: normal ENT inspection, hearing grossly normal Neck: supple, trachea midline Respiratory/Chest: chest non-tender, lungs clear, normal breath sounds, no respiratory distress, no accessory muscle use Cardiovascular: regular rate, rhythm, no edema, no murmur, + tachycardia Abdomen/GI: normal bowel sounds, non tender, soft Back: normal inspection Extremities/Musculoskelatal: normal inspection, no pedal edema, + pertinent finding (LLE in brace) 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 of seizures, chronic pain syndrome, and recurrent hypercalcemia - presents with elevated calcium levels and weakness Hospital Course and Discharge instructions Patient was admitted for correction of electrolytes and physical therapy and neurology evaluation of multiple scleroids flare Neurology service recommends continue Ocrevus for his MS next appointment 06/2017, Keppra 500 mg every other day, patient received IV steroids as inpatient and to discharge on prednisone taper, continue mofit boot for left foot droop, follow up appointment 2-3 weeks after discharge from rehab- Dr Ricky Ruiz or Rachel Rincon PAC [facility] appointment line [phone] has reported that there is a scheduled appointment on August 13 2017 at 3:25 PM [facility] [address] Ricky Ruiz at [address], [place] [address] Hypercalcemia with elevated parathyroid hormone and vitamin D insufficiency Patient's calcium levels treated with zoledronic acid and IV fluids Patient to be discharged with vitamin D supplements Patient will need to follow up with primary care physician on vitamin D management and hypercalcemia management Patient may need Ear/Nose/Throat (ENT) evaluation on whether a parathyroidectomy is needed to treat the hypercalcemia [facility] Labs on 06/16/17: Patient's labs noted for serum potassium of 3.1 and serum phosphate of 1.8. Patient was given 60 meq oral potassium and 30 mmol potassium phosphate. Discharge was held as patient's serum phosphate was 1.3 after he received IV phosphate earlier. This decrease in serum phosphate likley from previous use of zolendronic acid in the hospital for treating the hypercalcemia. Patient received additional IV phosphate as sodium phosphate 40 mmol and serum phosphate 2.8 Labs on 06/17/17 shows stable serum phosphate. serum sodium is borderline elevated at 145 likely from the recent IV fluids with sodium content Disposition: Patient is ready for discharge to [facility] Total time spent on discharge = 40 minutes This includes examination of the patient, discharge planning, medication reconciliation, and communication with other providers. Discharge Instructions see above
[2017-06-17 12:58] VITALS: BP 127/75; PULSE 93; TEMP 36.4; O2SAT 97
== END 2017-06-17 14:13 | DRG 641 ==
LOC: EDBD 00:08 → C.EDA 00:10 → C.MED 04:41 → ENRESERV 05:06
PROVIDERS: ADMIT Internal Medicine; ATTEND Hospitalist
DX: E83.52 Hypercalcemia (principal); G35 Multiple sclerosis; F32.9 Major depressive disorder, single episode, unspecified; G40.909 Epilepsy, unspecified, not intractable, without status epilepticus; G89.4 Chronic pain syndrome; R42 Dizziness and giddiness; R11.2 Nausea with vomiting, unspecified; G83.14 Monoplegia of lower limb affecting left nondominant side; Z79.52 Long term (current) use of systemic steroids; Z79.899 Other long term (current) drug therapy; Z91.81 History of falling

== ENCOUNTER 2018-06-11 21:05 | Inpatient (IN) ==
[2018-06-11 21:42] LABS: Basophils # (auto) 0.03 K/uL (0-0.2); Basophils % (auto) 0.3 %; Eosinophils # (auto) 0.02 K/uL (0-0.5); Eosinophils % (auto) 0.2 %; Hematocrit (blood only) 40.2 % (42-52); Hemoglobin 14.4 g/dL (14.0-18.0); Immature Granulocytes # (auto) 0.03 K/uL (0.00-0.02); Immature Granulocytes % (auto) 0.3 %; Lymphocytes # (auto) 0.88 K/uL (1.2-3.4); Lymphocytes % (auto) 7.8 %; Mean Corpuscular Hgb Conc 35.8 g/dL (32-36); Mean Corpuscular Volume 85.9 fL (80-100); Mean Platelet Volume 10.8 fL (7.4-10.4); Monocytes # (auto) 1.03 K/uL (0.11-0.59); Monocytes % (auto) 9.1 %; Neutrophils # (auto) 9.31 K/uL (1.4-6.5); Neutrophils % (auto) 82.3 %; Platelet Count 293 K/uL (130-400); RDW Coefficient of Variation 12.5 % (11.5-14.5); Red Blood Count 4.68 M/uL (4.7-6.1)
[2018-06-11 22:05] LABS: Alanine Aminotransferase 21 U/L (12-78); Albumin Globulin Ratio 1.2 (0.9-2); Albumin Level 4.2 gm/dl (3.4-5.0); Alkaline Phosphatase 87 U/L (45-117); Aspartate Aminotransferase 12 U/L (15-37); BUN Creatinine Ratio 5.1 (10-20); Bilirubin,Total 0.5 mg/dl (0.2-1); Blood Urea Nitrogen 8 mg/dl (7-18); Calcium 12.5 mg/dl (8.5-10.1); Carbon Dioxide 25 mmol/L (21-32); Chloride 111 mmol/L (98-107); Creatinine Clr Calc Pharmacy 65.5 ml/min; Est GFR (African American) 60.8; Est GFR (Non-African American) 52.4; Globulin 3.5 gm/dl (2.5-4.0); Glucose 111 mg/dl (70-99); Magnesium 1.9 mg/dl (1.8-2.4); Potassium 2.9 mmol/L (3.5-5.1); Sodium 143 mmol/L (136-145); Total Protein 7.7 gm/dl (6.4-8.2); Troponin I < 0.015 ng/ml (0-0.045)
[2018-06-11] MEDS ORDERED: POTASSIUM CHLORIDE / WTR 10 MEQ/100 ML PLCT IV ONE (22:12)
[2018-06-11] MEDS ORDERED: SODIUM CHLORIDE 0.9% 1000ML 1,000 ML IV STA (22:12)
[2018-06-11] MEDS ORDERED: ONDANSETRON INJ 2 MG/ML 2 ML VIAL IV STA (22:12)
[2018-06-11] MEDS ORDERED: SODIUM CHLORIDE 0.9% 1000ML 1,000 ML IV SCH (22:15)
[2018-06-11] MEDS ORDERED: ACETAMINOPHEN 1,000 MG/100 ML VIAL IV STA (22:15)
--- NOTE | 2018-06-11 23:39 | CT Scan Report ---
CT SCAN OF THE ABDOMEN AND PELVIS WITHOUT IV CONTRAST CLINICAL HISTORY: Vomiting. Lower abdominal pain. COMPARISON STUDY: Radiographs of the lumbar spine dated 10/09/2008. TECHNIQUE: CT scan of the abdomen and pelvis is performed from the lung bases to the proximal femora. Images are reviewed in the axial, sagittal, and coronal planes. IV contrast was not administered for this examination as per the referring clinician. A dose lowering technique was utilized adhering to the principles of ALARA. CT DOSE: 416.73 mGy.cm FINDINGS: Lung bases: The heart is normal in size and without pericardial effusion. The lung bases are clear. T here is a tiny hiatal hernia. Liver: The unenhanced liver is normal in size, contour, and attenuation. There is no intrahepatic moncho iary ductal dilatation. Gallbladder: There are small layering calcified gallstones. There is no CT evidence of acute cholecys titis. Spleen: Normal in size and attenuation. Pancreas: The unenhanced pancreas is grossly unremarkable. Adrenal glands: Unremarkable. Kidneys: The unenhanced kidneys are normal in size. There is a 12 mm obstructing calculus in the left proximal ureter at the level of L2. This is best seen on image #177. There is no significant associa enoch hydronephrosis. There are at least 5 additional nonobstructing left renal calculi which measure u p to 10 mm. There are at least 4 nonobstructing right renal calculi which measure up to 5 mm. There i s no evidence of contour deforming renal mass lesion. Abdominal vasculature: The abdominal aorta is normal in course and caliber. Bowel: The small bowel and colon are normal in course and caliber. The appendix is well visualized a nd normal. Peritoneum: There is no intraperitoneal free air or abdominal ascites. Lymphadenopathy: None. Pelvic viscera: The bladder, prostate, and seminal vesicles are normal as imaged. Skeletal structures: There is a mild superior endplate compression deformity of T10. No lytic or roz tic lesions are seen. IMPRESSION: 1. There is a 12 mm obstructing calculus in the left proximal ureter at the level of L2. There is no significant associated hydronephrosis. 2. Additional bilateral nonobstructing calculi as above. 3. Cholelithiasis without CT evidence of acute cholecystitis. 4. Additional findings as above. Electronically signed by: Eris Guallpa M.D. 06/11/2018 11:38 PM
[2018-06-11 23:50] LABS: Appearance Urine Clear (Clear); Bilirubin Urine Negative (Negative); Blood Urine Negative (Negative); Color Urine Yellow; Glucose Urine UA Negative (Negative); Ketones Urine Trace (Negative); Leukocyte Esterase Urine Negative (Negative); Nitrite Urine Negative (Negative); Protein Urine Negative (Negative); Specific Gravity Urine 1.014 (1.000-1.030); Urobilinogen Urine Negative (Negative)
[2018-06-11] MEDS ORDERED: LACTATED RINGER'S 1,000 ML IV ONE (23:56)
[2018-06-11] MEDS ORDERED: POTASSIUM CHLORIDE 10 MEQ TABCR PO STA (23:56)
[2018-06-12 00:35] LABS: Phosphorus 0.8 mg/dl (2.5-4.9)
--- NOTE | 2018-06-12 02:03 | History & Physical Report ---
Date of Service June 12, 2018 Assessment & Plan (1) Hypercalcemia: History primary hyperparathyroidism as per records symptomatic with constipation, generalized weakness, urolithiasis Hypokalemia, ARF secondary to GI symptoms multiple sclerosis, deficits at baseline as per patient mood disorder, at baseline off maintenance Rx, chronic pain history seizures as per records Chronic anemia baseline hemoglobin of 12, hemoglobin better than baseline likely separate to hemoconcentration Chronic pain as per records GMF Monitor calcium, creatinine response to IV hydration Nephrology consult RE hypercalcemia Replace electrolytes Urology consult RE obstructive uropathy DVT prophylaxis. Heparin subcu Full code History of Present Illness Chief Complaint: Generalized weakness, abdominal pain Primary Care Provider: NO PCP History obtained from patient and records. Medical history significant for multiple sclerosis, primary hyperparathyroidism, mood disorder chronic pain, history seizures as per records. Recent confinement last year for multiple sclerosis flare up and hypercalcemia. Patient not feeling well the last week. Yesterday patient noted dizziness described as lightheadedness, nausea/emesis following fall from weakness, constipation, achy lower abdominal pain, no hematuria, no fever, no chills. 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 Beliefs That Will Affect Care: None Current Living Situation: Parent current occupational status: disabled Other Information That Helps Us Care for You: No Feels Safe at Home: Yes Safety Concerns: Feels Safe At This Time Smoking Status: Never smoker Hx Alcohol Use: No Hx Substance Use: No Review of Systems As per HPI, all 10 systems reviewed, all other ROS negative Physical Exam Vital Signs (Past 24 Hours): Last Vital Signs Temp 36.9 C 06/11/18 21:11 Pulse 80 06/12/18 00:00 Resp 14 06/12/18 00:00 BP 129/76 04/13/19 00:00 Pulse Ox 97 06/12/18 00:00 Physical Exam: GENERAL: Comfortable, loquacious, no respiratory distress SKIN: Pallor , warm HEENT: pale palpebral conjunctivae, no ptosis, ? Subtle L facial asymmetry on speech, dry buccal mucosa NECK : Supple, no tenderness CHEST : CTA, no tenderness HEART : RRR, no obvious murmurs ABDOMEN: Some distention, minimal hypogastric tenderness EXTREMITIES : No LE swelling/tenderness, no other conspicuous deformities noted NEUROLOGIC : Coherent, subtle facial asymmetry on speech, MMTS LUE/LLE 4/5 (chronic) Results & Data Laboratory Results Laboratory Results WBC 11.30 K/uL (4.8-10.8) H 06/11/18 21:14 RBC 4.68 M/uL (4.7-6.1) L 06/11/18 21:14 Hgb 14.4 g/dL (14.0-18.0) 06/11/18 21:14 Hct 40.2 % (42-52) L 06/11/18 21:14 MCV 85.9 fL (80-100) 06/11/18 21:14 MCH 30.8 pg (25-34) 06/11/18 21:14 MCHC 35.8 g/dL (32-36) 06/11/18 21:14 RDW Std Deviation 39.0 fL (36.4-46.3) 06/11/18 21:14 RDW Coeff of Bret 12.5 % (11.5-14.5) 06/11/18 21:14 Plt Count 293 K/uL (130-400) 06/11/18 21:14 MPV 10.8 fL (7.4-10.4) H 06/11/18 21:14 Immature Gran % (Auto) 0.3 % 06/11/18 21:14 Neut % (Auto) 82.3 % 06/11/18 21:14 Lymph % (Auto) 7.8 % 06/11/18 21:14 [place] % (Auto) 9.1 % 06/11/18 21:14 Eos % (Auto) 0.2 % 06/11/18 21:14 Baso % (Auto) 0.3 % 06/11/18 21:14 Immature Gran # (Auto) 0.03 K/uL (0.00-0.02) H 06/11/18 21:14 Neut # (Auto) 9.31 K/uL (1.4-6.5) H 06/11/18 21:14 Lymph # (Auto) 0.88 K/uL (1.2-3.4) L 06/11/18 21:14 [place] # (Auto) 1.03 K/uL (0.11-0.59) H 06/11/18 21:14 Eos # (Auto) 0.02 K/uL (0-0.5) 06/11/18 21:14 Baso # (Auto) 0.03 K/uL (0-0.2) 06/11/18 21:14 Sodium 143 mmol/L (136-145) 06/11/18 21:14 Potassium 2.9 mmol/L (3.5-5.1) L 06/11/18 21:14 Chloride 111 mmol/L (98-107) H 06/11/18 21:14 Carbon Dioxide 25 mmol/L (21-32) 06/11/18 21:14 Anion Gap 7.0 (3-11) 06/11/18 21:14 BUN 8 mg/dl (7-18) 06/11/18 21:14 Creatinine 1.58 mg/dl (0.6-1.4) H 06/11/18 21:14 Est Cr Clr Drug Dosing 65.5 ml/min 06/11/18 21:14 Est GFR ( Amer) 60.8 06/11/18 21:14 Est GFR (Non-Af Amer) 52.4 06/11/18 21:14 BUN/Creatinine Ratio 5.1 (10-20) L 06/11/18 21:14 Glucose 111 mg/dl (70-99) H 06/11/18 21:14 Calcium 12.5 mg/dl (8.5-10.1) H* 06/11/18 21:14 Phosphorus 0.8 mg/dl (2.5-4.9) L* 06/11/18 21:14 Magnesium 1.9 mg/dl (1.8-2.4) 06/11/18 21:14 Total Bilirubin 0.5 mg/dl (0.2-1) 06/11/18 21:14 AST 12 U/L (15-37) L 06/11/18 21:14 ALT 21 U/L (12-78) 06/11/18 21:14 Alkaline Phosphatase 87 U/L (45-117) 06/11/18 21:14 Troponin I < 0.015 ng/ml (0-0.045) 06/11/18 21:14 Total Protein 7.7 gm/dl (6.4-8.2) 06/11/18 21:14 Albumin 4.2 gm/dl (3.4-5.0) 06/11/18 21:14 Globulin 3.5 gm/dl (2.5-4.0) 06/11/18 21:14 Albumin/Globulin Ratio 1.2 (0.9-2) 06/11/18 21:14 TSH 1.650 uIu/ml (0.300-4.500) 06/11/18 21:14 Urine Color Yellow 06/11/18 Unknown Urine Appearance Clear (Clear) 06/11/18 Unknown Urine pH 8.0 (4.5-7.5) H 06/11/18 Unknown Ur Specific [place] 1.014 (1.000-1.030) 06/11/18 Unknown Urine Protein Negative (Negative) 06/11/18 Unknown Urine Glucose (UA) Negative (Negative) 06/11/18 Unknown Urine Ketones Trace (Negative) H 06/11/18 Unknown Urine Blood Negative (Negative) 06/11/18 Unknown Urine Nitrite Negative (Negative) 06/11/18 Unknown Urine Bilirubin Negative (Negative) 06/11/18 Unknown Urine Urobilinogen Negative (Negative) 06/11/18 Unknown Ur Leukocyte Esterase Negative (Negative) 06/11/[address] abdomen pelvis: 1. There is a 12 mm obstructing calculus in the left proximal ureter at the level of L2. There is no significant associated hydronephrosis. 2. Additional bilateral nonobstructing calculi as above. 3. Cholelithiasis without CT evidence of acute cholecystitis.
[2018-06-12] MEDS ORDERED: PROCHLORPERAZINE 5 MG in SYRINGE 4 ML IV PRN (02:05)
[2018-06-12] MEDS ORDERED: DOCUSATE SODIUM 100 MG CAP PO SCH (02:10)
[2018-06-12 02:16] LABS: BUN Creatinine Ratio 5.4 (10-20); Calcium 10.9 mg/dl (8.5-10.1); Creatinine Clr Calc Pharmacy 72.4 ml/min; Est GFR (African American) 68.5; Est GFR (Non-African American) 59.1; Potassium 3.2 mmol/L (3.5-5.1)
[2018-06-12] MEDS ORDERED: POTASSIUM PHOS 3 MMOL/1 ML INFUSION IV STA (02:21)
[2018-06-12] MEDS: HYDROmorphone INJ 0.5 MG/0.5 ML SYR IV PRN (02:38)
[2018-06-12] MEDS ORDERED: POLYETHYLENE (MIRALAX) 17 GM PACK PO STA (03:00)
[2018-06-12] MEDS ORDERED: POTASSIUM PHOSPHATE 40 MMOL in SODIUM CHLORIDE 0.9% 1000ML 1,000 ML IV ONE (03:15)
[2018-06-12] MEDS: LACTATED RINGER'S 1,000 ML IV SCH ×2 (03:20→08:15)
--- NOTE | 2018-06-12 03:40 | Emergency Department Note ---
Entered by Aleksandra Spencer acting as a scribe for Ricky Cuevas MD ED Provider Note CHIEF COMPLAINT: Weakness HISTORY OF PRESENT ILLNESS: The patient is a 42 year old male presenting to the Emergency Department complaining of persistent weakness starting 1 day ago. The patient reports that he has been nauseous, vomiting and is constipated. He states that he has lower abdominal pain and feels dehydrated but has been urinating more than normal. He notes that he does not remember the last time he had a bowel movement. He adds that he has been experiencing blurred vision but that this is normal. The patient reports that he tries to drink water but drinks a lot of Mountain Dew soda. 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 The patient notes that he has been admitted to the hospital before for these symptoms. He denies any abdominal surgeries or operations. The patient reports that he has MS and because of this experiences chronic left sided weakness. He states that he used to see Dr. Joseph Carter neurologist for his MS but that he has not seen Dr. Ruiz for months because he was recently homeless. He notes that [facility] to receive O crevus. The patient denies receiving any treatment KITCHEN AIDE. Pt denies LOC, headache, fevers, chills, diaphoresis, neck pain, chest pain, breathing difficulties, back pain, melena, hematochezia, lymphadenopathy, rash, or other complaints. REVIEW OF SYSTEMS: See HPI for pertinent positives and negatives. A total of ten systems were reviewed and were otherwise negative. PMHx/PSHx: Multiple sclerosis, Depression, Seizure disorder, Chronic pain syndrome. SOCIAL HISTORY: Patient lives at home. Never a smoker. PHYSICAL EXAM: GENERAL: Awake, alert, well-appearing, in no distress HENT: Normocephalic, atraumatic. Oropharynx unremarkable. EYES: Normal conjunctiva. Sclera non-icteric. NECK: Inspection normal. Non-tender. Supple. No nuchal rigidity. FROM. No masses. RESPIRATORY: Clear to auscultation. No wheezes. No rales. Normal respiratory effort. CARDIAC: Normal rate. Normal rhythm. No murmurs. No rubs. Extremities warm and well perfused. Pulses equal. No JVD. GI: Soft, non-distended. Bilateral lower abdominal tenderness. No rebound or guarding. No masses. RECTAL: Deferred. MUSCULOSKELETAL: Atraumatic. Chest examination reveals no tenderness. The back is symmetrical on inspection without obvious abnormality. There is no CVA tenderness to palpation. No joint edema. LOWER EXTREMITIES: Calves are equal size bilaterally and non-tender. No edema. No discoloration. NEURO: Normal sensorium. No sensory or motor deficits noted. 3/5 strength to upper left and lower left extremities. SKIN: No rash or jaundice noted. EMERGENCY DEPARTMENT COURSE: 2208: The patient was evaluated in room A3, and a complete history and physical examination were performed. 2348: I reviewed the patient's case with Dr. Sherita Carter Hospitalist. He will evaluate the patient for further management. MEDICAL DECISION MAKING: Nursing notes reviewed and agree them. The patient's history was concerning for weakness. Differential diagnosis: Etiologies such as metabolic, infection, hypo/hyperglycemia, electrolyte abnormalities, cardiac sources, intracerebral event, toxicologic, neurologic, as well as others were entertained. Physical examination: As above. ER treatment provided: IV Lock The patient did not want any narcotic analgesia IV Tylenol IV Zofran IV hydration with normal saline IV potassium On reassessment the patient felt better. Diagnostics interpretation by me: ECG: Normal The labs revealed a mild leukocytosis on CBC. The patient's chemistry panel revealed hypokalemia and hypercalcemia. Urinalysis without signs of infection. Imaging studies: CT imaging reveals a proximal left ureteral stone. Nephrolithiasis noted. No other acute pathology noted per radiology. The patient has hypokalemia, hypercalcemia, a proximal ureteral stone and weakness with a history of MS. Consultation: A consultation was placed with the hospitalist. The case was discussed and diagnostics were reviewed. The patient was evaluated in the ER for further treatment. IMPRESSION: Kidney stone, Vomiting, Hypercalcemia, Hypokalemia. PLAN: Being Evaluated by Hospitalist The scribe's documentation has been prepared under my direction and personally reviewed by me in its entirety. I confirm that the note above accurately reflects all work, treatment, procedures, and medical decision making performed by me. Impression & Plan Kidney stone, Hypercalcemia, Vomiting, Hypokalemia Past Med/Surg History Medical History Multiple sclerosis (Chronic) Depression (Chronic) Seizure disorder (Chronic) Chronic pain syndrome (Chronic) Social History Preferred Language: Portuguese Feels Safe at Home: Yes Smoking Status: Never smoker Results & Data Vital Signs Vital Signs - 24 hr 06/11/18 21:10 06/11/18 21:11 06/11/18 23:10 Temperature 36.9 C Temperature Source Oral Sepsis Recent Fever Within 48 Hours No Sepsis New/Unexplained Change in Mental Status No Sepsis Action Taken by Nursing No Action Required Pulse Rate 96 H Pulse Rate [Apical] 90 Pulse Rhythm Regular Pulse Strength Normal Respiratory Rate 15 18 Respiratory Effort / Characteristics Non-Labored Respiratory Depth Normal Respiratory Pattern Regular Blood Pressure 146/93 H Blood Pressure [Right Arm] 146/93 H 144/76 H Blood Pressure Mean 110 Blood Pressure Mean [Right Arm] 110 98 Blood Pressure Position Lying Blood Pressure Position [Right Arm] Lying Pulse Oximetry 96 95 94 Oxygen Delivery Method Room Air Room Air Room Air 06/12/18 00:00 Temperature Temperature Source Sepsis Recent Fever Within 48 Hours Sepsis New/Unexplained Change in Mental Status Sepsis Action Taken by Nursing Pulse Rate Pulse Rate [Apical] 80 Pulse Rhythm Pulse Strength Respiratory Rate 14 Respiratory Effort / Characteristics Respiratory Depth Respiratory Pattern Blood Pressure Blood Pressure [Right Arm] 129/76 Blood Pressure Mean Blood Pressure Mean [Right Arm] 93 Blood Pressure Position Blood Pressure Position [Right Arm] Lying Pulse Oximetry 97 Oxygen Delivery Method Home Medications Current Medication List: was personally reviewed by me Laboratory Data Attestation: I reviewed the patient's lab results. Result diagrams: 06/11/18 21:14 06/12/18 01:45 Lab Results 06/11/18 06/11/18 06/11/18 Range/Units 21:14 21:14 Unknown WBC 11.30 H (4.8-10.8) K/uL RBC 4.68 L (4.7-6.1) M/uL Hgb 14.4 (14.0-18.0) g/dL Hct 40.2 L (42-52) % MCV 85.9 (80-100) fL MCH 30.8 (25-34) pg MCHC 35.8 (32-36) g/dL RDW Std Deviation 39.0 (36.4-46.3) fL RDW Coeff of Bret 12.5 (11.5-14.5) % Plt Count 293 (130-400) K/uL MPV 10.8 H (7.4-10.4) fL Immature Gran % (Auto) 0.3 % Neut % (Auto) 82.3 % Lymph % (Auto) 7.8 % [place] % (Auto) 9.1 % Eos % (Auto) 0.2 % Baso % (Auto) 0.3 % Immature Gran # (Auto) 0.03 H (0.00-0.02) K/uL Neut # (Auto) 9.31 H (1.4-6.5) K/uL Lymph # (Auto) 0.88 L (1.2-3.4) K/uL Comal # (Auto) 1.03 H (0.11-0.59) K/uL Eos # (Auto) 0.02 (0-0.5) K/uL Baso # (Auto) 0.03 (0-0.2) K/uL Sodium 143 (136-145) mmol/L Potassium 2.9 L (3.5-5.1) mmol/L Chloride 111 H (98-107) mmol/L Carbon Dioxide 25 (21-32) mmol/L Anion Gap 7.0 (3-11) BUN 8 (7-18) mg/dl Creatinine 1.58 H (0.6-1.4) mg/dl Est Cr Clr Drug Dosing 65.5 ml/min Est GFR ( Amer) 60.8 Est GFR (Non-Af Amer) 52.4 BUN/Creatinine Ratio 5.1 L (10-20) Glucose 111 H (70-99) mg/dl Calcium 12.5 H* (8.5-10.1) mg/dl Phosphorus 0.8 L* (2.5-4.9) mg/dl Magnesium 1.9 (1.8-2.4) mg/dl Total Bilirubin 0.5 (0.2-1) mg/dl AST 12 L (15-37) U/L ALT 21 (12-78) U/L Alkaline Phosphatase 87 (45-117) U/L Troponin I < 0.015 (0-0.045) ng/ml Total Protein 7.7 (6.4-8.2) gm/dl Albumin 4.2 (3.4-5.0) gm/dl Globulin 3.5 (2.5-4.0) gm/dl Albumin/Globulin Ratio 1.2 (0.9-2) 25-OH Vitamin D Total (30-100) ng/ml TSH 1.650 (0.300-4.500) uIu/ml PTH Intact (18.4-80.1) pg/ml Urine Color Yellow Urine Appearance Clear (Clear) Urine pH 8.0 H (4.5-7.5) Ur Specific Velpen 1.014 (1.000-1.030) Urine Protein Negative (Negative) Urine Glucose (UA) Negative (Negative) Urine Ketones Trace H (Negative) Urine Blood Negative (Negative) Urine Nitrite Negative (Negative) Urine Bilirubin Negative (Negative) Urine Urobilinogen Negative (Negative) Ur Leukocyte Esterase Negative (Negative) 06/12/18 06/12/18 06/12/18 Range/Units 01:45 01:45 01:45 WBC (4.8-10.8) K/uL RBC (4.7-6.1) M/uL Hgb (14.0-18.0) g/dL Hct (42-52) % MCV (80-100) fL MCH (25-34) pg MCHC (32-36) g/dL RDW Std Deviation (36.4-46.3) fL RDW Coeff of Bret (11.5-14.5) % Plt Count (130-400) K/uL MPV (7.4-10.4) fL Immature Gran % (Auto) % Neut % (Auto) % Lymph % (Auto) % Com[place] % (Auto) % Eos % (Auto) % Baso % (Auto) % Immature Gran # (Auto) (0.00-0.02) K/uL Neut # (Auto) (1.4-6.5) K/uL Lymph # (Auto) (1.2-3.4) K/uL Comal # (Auto) (0.11-0.59) K/uL Eos # (Auto) (0-0.5) K/uL Baso # (Auto) (0-0.2) K/uL Sodium 143 (136-145) mmol/L Potassium 3.2 L (3.5-5.1) mmol/L Chloride 113 H (98-107) mmol/L Carbon Dioxide 24 (21-32) mmol/L Anion Gap 6.0 (3-11) BUN 8 (7-18) mg/dl Creatinine 1.43 H (0.6-1.4) mg/dl Est Cr Clr Drug Dosing 72.4 ml/min Est GFR ( Amer) 68.5 Est GFR (Non-Af Amer) 59.1 BUN/Creatinine Ratio 5.4 L (10-20) Glucose 98 (70-99) mg/dl Calcium 10.9 H (8.5-10.1) mg/dl Phosphorus (2.5-4.9) mg/dl Magnesium (1.8-2.4) mg/dl Total Bilirubin (0.2-1) mg/dl AST (15-37) U/L ALT (12-78) U/L Alkaline Phosphatase (45-117) U/L Troponin I (0-0.045) ng/ml Total Protein (6.4-8.2) gm/dl Albumin (3.4-5.0) gm/dl Globulin (2.5-4.0) gm/dl Albumin/Globulin Ratio (0.9-2) 25-OH Vitamin D Total 28.4 L (30-100) ng/ml TSH (0.300-4.500) uIu/ml PTH Intact 222.3 H (18.4-80.1) pg/ml Urine Color Urine Appearance (Clear) Urine pH (4.5-7.5) Ur Specific Velpen (1.000-1.030) Urine Protein (Negative) Urine Glucose (UA) (Negative) Urine Ketones (Negative) Urine Blood (Negative) Urine Nitrite (Negative) Urine Bilirubin (Negative) Urine Urobilinogen (Negative) Ur Leukocyte Esterase (Negative) Administered Medications Hydromorphone HCl (Dilaudid) 0.5 mg IV Q3H PRN PRN Reason: Pain Stop: 06/26/18 00:13 Last Admin: 06/12/18 02:38 Dose: 0.5 mg Documented by: [id number] Lactated Ringer's (Lr) 1,000 mls @ 200 mls/hr IV .Q5H MANJINDER Stop: 06/12/18 10:59 Last Admin: 06/12/18 03:20 Dose: 200 mls/hr Documented by: [id number] Discontinued Medications Potassium Chloride (K Alberto / Wtr) 10 meq in 100 mls @ 100 mls/hr IV ONE ONE Stop: 06/11/18 23:11 Last Infusion: 06/11/18 23:57 Dose: 0 mls/hr Documented by: [id number] Admin: 06/11/18 22:50 Dose: 100 mls/hr Documented by: [id number] Sodium Chloride (Nss 1000ml) 1,000 mls @ 999 mls/hr IV .Q1H1M MANJINDER Stop: 06/11/18 23:15 Last Infusion: 06/12/18 01:08 Dose: 0 mls/hr Documented by: [id number] Admin: 06/11/18 22:24 Dose: 999 mls/hr Documented by: [id number] Sodium Chloride (Nss 1000ml) 1,000 mls @ 125 mls/hr IV .Q8H STA Stop: 06/12/18 06:11 Last Infusion: 06/12/18 01:08 Dose: 500 mls/hr Documented by: [id number] Admin: 06/11/18 22:51 Dose: 125 mls/hr Documented by: [id number] Acetaminophen (Ofirmev) 1,000 mg in 100 mls @ 400 mls/hr IV NOW STA Stop: 06/11/18 22:29 Last Infusion: 06/11/18 22:50 Dose: 0 mls/hr Documented by: [id number] Admin: 06/11/18 22:23 Dose: 400 mls/hr Documented by: [id number] Lactated Ringer's (Lr) 1,000 mls @ 500 mls/hr IV .Q2H ONE Stop: 06/12/18 01:55 Last Admin: 06/12/18 01:08 Dose: 500 mls/hr Documented by: [id number] Ondansetron HCl (Zofran) 4 mg IV NOW STA Stop: 06/11/18 22:13 Last Admin: 06/11/18 22:24 Dose: 4 mg Documented by: [id number] Polyethylene Glycol (Miralax Powder Packet) 17 gm PO NOW STA Stop: 06/12/18 03:01 Last Admin: 06/12/18 03:13 Dose: 17 gm Documented by: [id number] Potassium Chloride (Klor-Con M10) 50 meq PO NOW STA Stop: 06/11/18 23:57 Last Admin: 06/12/18 00:56 Dose: 50 meq Documented by: [id number] Imaging Data Radiologist's Impression: Radiology results as stated below per my review and the radiologist's interpretation: CT SCAN OF THE ABDOMEN AND PELVIS WITHOUT IV CONTRAST CLINICAL HISTORY: Vomiting. Lower abdominal pain. COMPARISON STUDY: Radiographs of the lumbar spine dated 10/09/2008. TECHNIQUE: CT scan of the abdomen and pelvis is performed from the lung bases to the proximal femora. Images are reviewed in the axial, sagittal, and coronal planes. IV contrast was not administered for this examination as per the referring clinician. A dose lowering technique was utilized adhering to the principles of ALARA. CT DOSE: 416.73 mGy.cm FINDINGS: Lung bases: The heart is normal in size and without pericardial effusion. The lung bases are clear. There is a tiny hiatal hernia. Liver: The unenhanced liver is normal in size, contour, and attenuation. There is no intrahepatic biliary ductal dilatation. Gallbladder: There are small layering calcified gallstones. There is no CT evidence of acute cholecystitis. Spleen: Normal in size and attenuation. Pancreas: The unenhanced pancreas is grossly unremarkable. Adrenal glands: Unremarkable. Kidneys: The unenhanced kidneys are normal in size. There is a 12 mm obstructing calculus in the left proximal ureter at the level of L2. This is best seen on image #177. There is no significant associated hydronephrosis. There are at least 5 additional nonobstructing left renal calculi which measure up to 10 mm. There are at least 4 nonobstructing right renal calculi which measure up to 5 mm. There is no evidence of contour deforming renal mass lesion. Abdominal vasculature: The abdominal aorta is normal in course and caliber. Bowel: The small bowel and colon are normal in course and caliber. The appendix is well visualized and normal. Peritoneum: There is no intraperitoneal free air or abdominal ascites. Lymphadenopathy: None. Pelvic viscera: The bladder, prostate, and seminal vesicles are normal as imaged. Skeletal structures: There is a mild superior endplate compression deformity of T10. No lytic or blastic lesions are seen. IMPRESSION: 1. There is a 12 mm obstructing calculus in the left proximal ureter at the level of L2. There is no significant associated hydronephrosis. 2. Additional bilateral nonobstructing calculi as above. 3. Cholelithiasis without CT evidence of acute cholecystitis. 4. Additional findings as above. Electronically signed by: Eris Guallpa M.D. 06/11/2018 11:38 PM ECG Data Attestation: I personally reviewed and interpreted this ECG as follows: Indication: weakness Rate (beats per minute): 95 Rhythm: normal sinus Findings: no PAC, no PVC, no ST depression and no ST elevation Blood Pressure Blood Pressure Findings: Elevated blood pressure Blood Pressure Disposition: further management by hospitalist Discharge Plan Visit Data *Final* Discharge Date/Time: 06/12/18 02:34 Chief Complaint: Illness Stated Complaint: WEAKNESS, DIZZINESS, NAUSEA ED Provider: Ricky Cuevas Discharge Problem: Kidney stone, Hypercalcemia, Vomiting, Hypokalemia Patient Disposition: Admitted As Inpatient Discharge Instructions Interventions: ED Discharge Assessment Last Done: 06/12/18 02:34 Discharge Problem: Vomiting Qualifiers: Vomiting type: unspecified Vomiting Intractability: non-intractable Nausea presence: with nausea Qualified Code(s): R11.2 - Nausea with vomiting, unspecified The scribe's documentation has been prepared under my direction and personally reviewed by me in its entirety. I confirm that the note above accurately reflects all work, treatment, procedures, and medical decision making performed by me.
[2018-06-12 03:54] LABS: Prothrombin Time 9.9 Seconds (9.0-12.0)
[2018-06-12] MEDS: HEPARIN SOD 5,000 UNIT/0.5 ML VIAL SQ SCH ×3 (05:42→21:17)
[2018-06-12 06:40] LABS: Estimated Average Glucose 108 mg/dl; Hemoglobin A1C 5.4 % (4.5-5.6)
--- NOTE | 2018-06-12 08:28 | Nephrology Consultation ---
Date of Consultation June 12, 2018 Assessment & Plan (1) Hypercalcemia: calcium improving w/ aggressive fluid resuscitation; pt endorses he might be dehydrated; with impacted stone, would not continue aggressive fluid > we can resume after stone removed -PTH now back at 222; 25 ohd at 28; consistent with primary hyperparathyroidism versus much less likely famiilial hypercalcemic hypocalciuria> will need outpt ent eval for possible parathyroidecotmy -daily bmp Present on Admission?: Yes (2) Kidney stone: urology removing obstructed stone in am; so far no hydronephrosis, no renal faiure Present on Admission?: Yes History of Present Illness Reason for Consultation: hypercalcemia Requesting Physician: Dr Moreira Attending Physician: Leandro Larsen MD History of Present Illness 42 y/o M whom I'm asked to see for hypercalcemia after he was admitted for this, for low K and diarrhea after presenting w/ generalized weakness. PMH includes MS, reported past HPTH on PCP labs > found also on admission to have BL nephrolithiasis w/ obstructing L stone. Pt denies prior stone hx. His presenting calcium was 12.5 last evening; this am it is 10.9. One month back was in 8-9's. he is getting LR at 200 mL hourly. Also having IV K and phos repletion. Repeat Ca planned for 10 am and on that lab down to 10.5. no diuretics or Ca suppls as OP. Pt is for OR tomorrow to remove obstructing L ureteral stone. Pt came to er after falling in bathroom at home. He lives there w/ his father, acknowledges he might be dehydrated, states that had been told by pcp he might have HPTH based on labs in past but that he ( the pt ) subsequently became homeless and could not follow up on that eval. Denies any knowledge or episodes of stones before today. No hx of fractures ever. States no other falls in previous year. No tums use or high dairy intake. his only med is iv infusion q 6 mos for ms - has had 3 txs so far. 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 Beliefs That Will Affect Care: None Current Living Situation: Parent Other Information That Helps Us Care for You: No Feels Safe at Home: Yes Safety Concerns: Feels Safe At This Time Smoking Status: Never smoker Hx Alcohol Use: No Hx Substance Use: No Review of Systems Constitutional: + fatigue, + weakness and + anorexia; no fever and no body aches Eyes: no worsening vision Ear, Nose, Mouth, Throat: no dry mouth Respiratory: no cough and no dyspnea Cardiovascular: no chest pain, no palpitations and no edema Gastrointestinal: + constipation; no abdominal pain Genitourinary (Male): no dysuria, no difficulty urinating, no urinary frequency and no urinary hesitancy endorses chronic L sided pain from waist down and new bl lower body pain now Integumentary: + rash and + non-healing lesions Neurologic: + gait abnormality, + unsteadiness, + falls and + generalized weakness Psychiatric: no behavioral changes Endocrine: + fatigue Hematologic / Lymphatic: no easy bleeding Physical Exam Vital Signs (Past 24 Hours): Last Vital Signs Temp 36.7 C 06/12/18 02:50 Pulse 92 H 06/12/18 02:50 Resp 16 06/12/18 02:50 BP 131/87 06/12/18 02:50 Pulse Ox 99 06/12/18 02:50 Constitutional: well developed and well nourished on RA maneuvers readliy for exam Eyes: EOM intact bilaterally ENMT: Ears: no external ear abnormality Nose: no external nose abnormality Mouth: + dry oral mucous membranes Neck: no nuchal rigidity Respiratory: normal respiratory effort Auscultation: + diminished lung sounds Cardiovascular: RRR, no murmur, no edema Gastrointestinal (Abdomen): Inspection/Auscultation: normal bowel sounds Percussion/Palpation: abdomen soft; abdomen nontender Musculoskeletal: Extremities: strength 5/5 throughout BLE large mm atrophied; L ankle brace not on Skin: no rashes, warm and dry Neurologic: baker, fluent speech, no tremor; some issues w/ recall Results & Data Laboratory Results Abnormal lab results 06/11/18 06/11/18 06/11/18 Range/Units 21:14 21:14 Unknown WBC 11.30 H (4.8-10.8) K/uL RBC 4.68 L (4.7-6.1) M/uL Hgb (14.0-18.0) g/dL Hct 40.2 L (42-52) % MPV 10.8 H (7.4-10.4) fL Immature Gran # (Auto) 0.03 H (0.00-0.02) K/uL Neut # (Auto) 9.31 H (1.4-6.5) K/uL Lymph # (Auto) 0.88 L (1.2-3.4) K/uL Graham # (Auto) 1.03 H (0.11-0.59) K/uL Potassium 2.9 L (3.5-5.1) mmol/L Chloride 111 H (98-107) mmol/L Creatinine 1.58 H (0.6-1.4) mg/dl BUN/Creatinine Ratio 5.1 L (10-20) Glucose 111 H (70-99) mg/dl Calcium 12.5 H* (8.5-10.1) mg/dl Phosphorus 0.8 L* (2.5-4.9) mg/dl AST 12 L (15-37) U/L 25-OH Vitamin D Total (30-100) ng/ml PTH Intact (18.4-80.1) pg/ml Urine pH 8.0 H (4.5-7.5) Urine Ketones Trace H (Negative) 06/12/18 06/12/18 06/12/18 Range/Units 01:45 01:45 01:45 WBC (4.8-10.8) K/uL RBC (4.7-6.1) M/uL Hgb (14.0-18.0) g/dL Hct (42-52) % MPV (7.4-10.4) fL Immature Gran # (Auto) (0.00-0.02) K/uL Neut # (Auto) (1.4-6.5) K/uL Lymph # (Auto) (1.2-3.4) K/uL Graham # (Auto) (0.11-0.59) K/uL Potassium 3.2 L (3.5-5.1) mmol/L Chloride 113 H (98-107) mmol/L Creatinine 1.43 H (0.6-1.4) mg/dl BUN/Creatinine Ratio 5.4 L (10-20) Glucose (70-99) mg/dl Calcium 10.9 H (8.5-10.1) mg/dl Phosphorus (2.5-4.9) mg/dl AST (15-37) U/L 25-OH Vitamin D Total 28.4 L (30-100) ng/ml PTH Intact 222.3 H (18.4-80.1) pg/ml Urine pH (4.5-7.5) Urine Ketones (Negative) 06/12/18 06/12/18 Range/Units 09:54 09:54 WBC (4.8-10.8) K/uL RBC 3.89 L (4.7-6.1) M/uL Hgb 11.7 L (14.0-18.0) g/dL Hct 34.2 L (42-52) % MPV 10.6 H (7.4-10.4) fL Immature Gran # (Auto) (0.00-0.02) K/uL Neut # (Auto) (1.4-6.5) K/uL Lymph # (Auto) 1.18 L (1.2-3.4) K/uL Graham # (Auto) 0.73 H (0.11-0.59) K/uL Potassium (3.5-5.1) mmol/L Chloride 115 H (98-107) mmol/L Creatinine (0.6-1.4) mg/dl BUN/Creatinine Ratio 5.1 L (10-20) Glucose 106 H (70-99) mg/dl Calcium 10.6 H (8.5-10.1) mg/dl Phosphorus 2.0 L D (2.5-4.9) mg/dl AST (15-37) U/L 25-OH Vitamin D Total (30-100) ng/ml PTH Intact (18.4-80.1) pg/ml Urine pH (4.5-7.5) Urine Ketones (Negative) Diagnostic Findings noncon CT abd pelvis Lung bases: The heart is normal in size and without pericardial effusion. The lung bases are clear. There is a tiny hiatal hernia. Liver: The unenhanced liver is normal in size, contour, and attenuation. There is no intrahepatic biliary ductal dilatation. Gallbladder: There are small layering calcified gallstones. There is no CT evidence of acute cholecystitis. Spleen: Normal in size and attenuation. Pancreas: The unenhanced pancreas is grossly unremarkable. Adrenal glands: Unremarkable. Kidneys: The unenhanced kidneys are normal in size. There is a 12 mm obstructing calculus in the left proximal ureter at the level of L2. This is best seen on image #177. There is no significant associated hydronephrosis. There are at least 5 additional nonobstructing left renal calculi which measure up to 10 mm. There are at least 4 nonobstructing right renal calculi which measure up to 5 mm. There is no evidence of contour deforming renal mass lesion. Abdominal vasculature: The abdominal aorta is normal in course and caliber. Bowel: The small bowel and colon are normal in course and caliber. The appendix is well visualized and normal. Peritoneum: There is no intraperitoneal free air or abdominal ascites. Lymphadenopathy: None. Pelvic viscera: The bladder, prostate, and seminal vesicles are normal as imaged. Skeletal structures: There is a mild superior endplate compression deformity of T10. No lytic or blastic lesions are seen. IMPRESSION: 1. There is a 12 mm obstructing calculus in the left proximal ureter at the level of L2. There is no significant associated hydronephrosis. 2. Additional bilateral nonobstructing calculi as above. 3. Cholelithiasis without CT evidence of acute cholecystitis. 4. Additional findings as above.
--- NOTE | 2018-06-12 10:21 | Urology Consultation ---
Date of Consultation June 12, 2018 Assessment & Plan (1) Kidney stone: obstructing left ureteral calc - plan for cysto, stent - will need a secondary procedure at some point in the near future - risks, benefits, and alternatives discussed - consent on the chart History of Present Illness Attending Physician: Leandro Larsen MD History of Present Illness 42y/o male w/ MS and no previously known hx of nephrolithiasis - significant, chronic pain on his left side, back, and abdomen - exacerbation of this with associated nausea and vomiting earlier this week - prompted ER visit CT: renal stones (non-obstructing) with a left ureteral calculus causing obstruction - labs ok - afebrile - mild nausea Allergies Allergy/AdvReac Type Severity Reaction Status Date / Time No Known Allergies Allergy Verified 06/11/18 22:11 Home Medications Home Medications Medication Instructions Recorded Confirmed Type ocrelizumab 1 dose IV DIRECTED 06/11/18 06/11/18 History Patient History Medical History Multiple sclerosis (Chronic) Depression (Chronic) Seizure disorder (Chronic) Chronic pain syndrome (Chronic) Social History Preferred Language: Welsh Communication Ability: Effective 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 Beliefs That Will Affect Care: None Current Living Situation: Parent Other Information That Helps Us Care for You: No Feels Safe at Home: Yes Safety Concerns: Feels Safe At This Time Smoking Status: Never smoker Hx Alcohol Use: No Hx Substance Use: No Review of Systems Constitutional: as per Subjective / HPI; no fever, no chills and no sweats Respiratory: no cough and no dyspnea Cardiovascular: no chest pain and no dyspnea Gastrointestinal: no abdominal pain and no nausea Genitourinary (Male): + decreased urination; no dysuria and no hematuria Musculoskeletal: no back pain and no neck pain Integumentary: no rash Endocrine: no fatigue Physical Exam Vital Signs (Past 24 Hours): Last Vital Signs Temp 36.6 C 06/12/18 07:36 Pulse 73 06/12/18 07:36 Resp 16 06/12/18 07:36 BP 121/74 06/12/18 07:36 Pulse Ox 94 06/12/18 07:36 Physical Exam: AFVSS NAD AAOx3 some limited mobility no resp distress RRR abd soft, moderately tender on the left mild suprapubic tenderness - left leg brace (uses a wheel chair) no edema no rash no adenopathy
[2018-06-12 10:27] LABS: Basophils # (auto) 0.02 K/uL (0-0.2); Basophils % (auto) 0.3 %; Eosinophils # (auto) 0.05 K/uL (0-0.5); Eosinophils % (auto) 0.6 %; Hematocrit (blood only) 34.2 % (42-52); Hemoglobin 11.7 g/dL (14.0-18.0); Immature Granulocytes # (auto) 0.02 K/uL (0.00-0.02); Immature Granulocytes % (auto) 0.3 %; Lymphocytes # (auto) 1.18 K/uL (1.2-3.4); Lymphocytes % (auto) 15.3 %; Mean Corpuscular Hgb Conc 34.2 g/dL (32-36); Mean Corpuscular Volume 87.9 fL (80-100); Mean Platelet Volume 10.6 fL (7.4-10.4); Monocytes # (auto) 0.73 K/uL (0.11-0.59); Monocytes % (auto) 9.5 %; Platelet Count 232 K/uL (130-400); RDW Coefficient of Variation 12.7 % (11.5-14.5); RDW Standard Deviation 40.9 fL (36.4-46.3); Red Blood Count 3.89 M/uL (4.7-6.1)
[2018-06-12 10:51] LABS: BUN Creatinine Ratio 5.1 (10-20); Calcium 10.6 mg/dl (8.5-10.1); Creatinine Clr Calc Pharmacy 73.3 ml/min; Est GFR (African American) 71.6; Est GFR (Non-African American) 61.7; Potassium 3.5 mmol/L (3.5-5.1)
[2018-06-12] MEDS ORDERED: POLYETHYLENE (MIRALAX) 17 GM PACK PO PRN (13:57)
--- NOTE | 2018-06-12 14:04 | Hospitalist Progress Note ---
Date of Service June 12, 2018 Assessment & Plan (1) Hypercalcemia: Hypercalcemia H/O Primary hyperparathyroidism Symptomatic Hypercalcemia with constipation, generalized weakness, urolithiasis PTH levels elevated Low Vitamin D levels Continue IV fluids Nephrology Consulted Will need Parathyroid Surgery eventually Bowel regimen for constipation Avoid Calcium/Vit D supplements Hypokalemia Hypophosphatemia Replace electrolytes as needed Monitor electrolytes Obstructive Uropathy RUBI: --CT ABD:There is a 12 mm obstructing calculus in the left proximal ureter at the level of L2. There is no significant associated hydronephrosis. Additional bilateral nonobstructing calculi as above. Cholelithiasis without CT evidence of acute cholecystitis. Cr:1.58>>>1.38 Continue IV fluids Urology consulted for possible ureteral stent Nephrology consulted as well H/O Multiple sclerosis: Previously followed with On Ocrelizumab every 6 months--due in 1 month as per patient Chronic left sided weakness, dizziness, intermittent blurry vision Uses cane for ambulation at [facility] H/O Mood disorder Stable Currently not on meds chronic pain H/O seizures as per records Currently not on meds DVT Px: Heparin SQ Code Status Full code Subjective Patient is seen and examined at bedside Reports chronic left sided weakness, dizziness, nausea Denies chest pain, SOB Reports chronic lower quadrant abd pain which radiated down his legs No other complaints Physical Exam Vital Signs (Past 24 Hours): Last Vital Signs Temp 36.6 C 06/12/18 07:36 Pulse 73 06/12/18 07:36 Resp 16 06/12/18 07:36 BP 121/74 06/12/18 07:36 Pulse Ox 94 06/12/18 07:36 Physical Exam: Physical Exam: Vitals signs as noted above General Appearance:Moderately built and nourished, no apparent distress Head: normocephalic, Atraumatic Eyes: normal inspection, EOMI Neck: supple, Trachea midline Respiratory/Chest: Normal breath sounds, CTA Cardiovascular: S1, S2, No murmur Abdomen/GI:Soft, Non tender, Bowel sounds present Extremities/Musculoskelatal:normal inspection, no edema Neurologic/Psych:AAOX3, Chronic left sided weakness Skin: normal color, warm Results & Data Laboratory Results Short CBC 06/11/18 06/12/18 Range/Units 21:14 09:54 WBC 11.30 H 7.70 (4.8-10.8) K/uL Hgb 14.4 11.7 L (14.0-18.0) g/dL Hct 40.2 L 34.2 L (42-52) % Plt Count 293 232 (130-400) K/uL BMP 06/11/18 06/12/18 06/12/18 21:14 01:45 09:54 Sodium 143 143 145 Potassium 2.9 L 3.2 L 3.5 Chloride 111 H 113 H 115 H Carbon Dioxide 25 24 25 BUN 8 8 7 Creatinine 1.58 H 1.43 H 1.38 Glucose 111 H 98 106 H Calcium 12.5 H* 10.9 H 10.6 H Cardiac Enzymes 06/11/18 Range/Units 21:14 Troponin I < 0.015 (0-0.045) ng/ml Liver Function 06/11/18 Range/Units 21:14 Total Bilirubin 0.5 (0.2-1) mg/dl AST 12 L (15-37) U/L ALT 21 (12-78) U/L Alkaline Phosphatase 87 (45-117) U/L Albumin 4.2 (3.4-5.0) gm/dl Urine 06/11/18 Range/Units Unknown Urine Color Yellow Urine Appearance Clear (Clear) Urine pH 8.0 H (4.5-7.5) Ur Specific [place] 1.014 (1.000-1.030) Urine Protein Negative (Negative) Urine Glucose (UA) Negative (Negative) Diagnostic Findings CT ABD: 1. There is a 12 mm obstructing calculus in the left proximal ureter at the level of L2. There is no significant associated hydronephrosis. 2. Additional bilateral nonobstructing calculi as above. 3. Cholelithiasis without CT evidence of acute cholecystitis. 4. Additional findings as above.
[2018-06-12] MEDS ORDERED: INFLUENZA ADMINISTRATION CHARGE ONE (15:00)
[2018-06-12] MEDS ORDERED: INFLUENZA VIRUS QUAD VACCINE 0.5 ML SYR IM ONE (15:00)
[2018-06-12] MEDS: ACETAMINOPHEN 325 MG TAB PO PRN (15:38)
[2018-06-12] MEDS: DOCUSATE SODIUM 100 MG CAP PO SCH (21:18)
[2018-06-13] MEDS: SODIUM CHLOR 0.45% + 20MEQ KCL 20 MEQ/1,000 ML BAG IV SCH ×2 (00:44→18:53)
[2018-06-13] MEDS: HEPARIN SOD 5,000 UNIT/0.5 ML VIAL SQ SCH ×3 (05:41→21:44)
[2018-06-13 05:48] LABS: Hematocrit (blood only) 36.3 % (42-52); Hemoglobin 12.2 g/dL (14.0-18.0); Mean Corpuscular Hgb Conc 33.6 g/dL (32-36); Mean Corpuscular Volume 89.2 fL (80-100); Mean Platelet Volume 10.6 fL (7.4-10.4); Platelet Count 225 K/uL (130-400); RDW Coefficient of Variation 12.7 % (11.5-14.5); RDW Standard Deviation 41.2 fL (36.4-46.3); Red Blood Count 4.07 M/uL (4.7-6.1); White Blood Count 5.75 K/uL (4.8-10.8)
[2018-06-13] MEDS ORDERED: CIPROFLOXACIN 400 MG/200 ML BAG IV SCH (06:00)
[2018-06-13 06:25] LABS: Calcium 10.9 mg/dl (8.5-10.1); Creatinine Clr Calc Pharmacy 77.3 ml/min; Est GFR (African American) 76.2; Est GFR (Non-African American) 65.8; Magnesium 1.9 mg/dl (1.8-2.4); Phosphorus 2.4 mg/dl (2.5-4.9); Potassium 3.9 mmol/L (3.5-5.1)
--- NOTE | 2018-06-13 08:11 | Urology Progress Note ---
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
[2018-06-13] MEDS ORDERED: PROPOFOL IV EMULSION 10 MG/ML 20 ML VIAL IV ONE (08:46)
[2018-06-13] MEDS ORDERED: fentaNYL citrate 100 MCG/2 ML VIAL ONE ×2 (08:46→09:42)
[2018-06-13] MEDS ORDERED: LIDOCAINE HCL 2% 2 ML VIAL/AMP(20MG/ML) INFIL ONE (08:46)
[2018-06-13] MEDS ORDERED: ONDANSETRON INJ 2 MG/ML 2 ML VIAL ONE (08:46)
[2018-06-13] MEDS ORDERED: MIDAZOLAM HCL 1 MG/ML 2ML VIAL ONE (08:46)
--- NOTE | 2018-06-13 08:49 | Anesthesiology Consultation ---
Date of Service June 13, 2018 Assessment & Plan (1) Encounter for pre-operative examination: Chart Review Chart Review: Acceptable Risk for Surgery and Patient NOT seen in Pre Admission Testing Consults Requested none ASA ASA3 Proposed Anesthesia Anesthesia Type: MAC NPO Date Last Intake of Fluids: 06/12/18 Time Last Intake of Fluids: 18:00 Date Last Intake of Solids: 06/12/18 Time Last Intake of Solids: 18:00 History Surgery Operation Date: 06/12/18 12:00 Proposed Procedures p Cystoscopy - Demario Hernandes MD s Ureteral Stent Insertion/Removal(Left) - Demario Hernandes MD Operation Date: 06/13/18 09:00 Proposed Procedures p Cystoscopy - Demario Hernandes MD s Ureteral Stent Insertion/Removal(Left) - Demario Hernandes MD Height/Weight Height: 6 ft Weight: 75.9 kg Allergies Allergy/AdvReac Type Severity Reaction Status Date / Time No Known Allergies Allergy Verified 06/11/18 22:11 Medications Home Medications Medication Instructions Recorded Confirmed Last Taken ocrelizumab 1 dose IV DIRECTED 06/11/18 06/11/18 Unknown Active Medications Generic Name Dose Route Start Last Admin Trade Name Freq PRN Reason Stop Dose Admin Acetaminophen 650 mg 06/12/18 02:05 06/12/18 15:38 Tylenol PO 07/12/18 02:04 650 mg Q4H PRN Administration pain/fever Docusate Sodium 100 mg 06/12/18 21:00 06/12/18 21:18 Colace PO 07/12/18 20:59 100 mg BID MANJINDER Administration Heparin Sodium (Porcine) 5,000 units 06/12/18 06:00 06/13/18 05:41 Heparin Sodium (Porcine) SQ 07/12/18 05:59 5,000 units Q8 MANJINDER Administration Hydromorphone HCl 0.5 mg 06/12/18 00:14 06/12/18 02:38 Dilaudid IV 06/26/18 00:13 0.5 mg Q3H PRN Administration Pain Potassium Chloride/Sodium Chloride 20 meq in 1,000 mls @ 75 mls/hr 06/13/18 00:30 06/13/18 00:44 1/2 Nss + 20meq Kcl 1000ml IV 07/13/18 00:29 75 mls/hr .[id number] MANJINDER Administration Past Medical History Medical History Multiple sclerosis (Chronic) Depression (Chronic) Seizure disorder (Chronic) Chronic pain syndrome (Chronic) Past Family History Family History Other Hypertension Kidney stones Social History Smoking Status: Never smoker tobacco type: smokeless tobacco Do You Dip or Chew Tobacco: Yes (1 can every 3 weeks) Hx Alcohol Use: No Hx Substance Use: No Physical Exam Vital Signs Last Vital Signs Temp 36.6 C 06/13/18 07:51 Pulse 76 06/13/18 07:51 Resp 18 06/13/18 07:51 BP 124/80 06/13/18 07:51 Pulse Ox 98 06/13/18 07:51 Testing Laboratory Results 06/13/18 05:32 06/13/18 05:32 PT 9.9 Seconds (9.0-12.0) 06/11/18 21:14 INR 1.0 (0.9-1.1) 06/11/18 21:14 Hemoglobin A1c 5.4 % (4.5-5.6) 06/11/18 21:14 Urine Color Yellow 06/11/18 Unknown Urine Appearance Clear (Clear) 06/11/18 Unknown Urine pH 8.0 (4.5-7.5) H 06/11/18 Unknown Ur Specific [place] 1.014 (1.000-1.030) 06/11/18 Unknown Urine Protein Negative (Negative) 06/11/18 Unknown Urine Glucose (UA) Negative (Negative) 06/11/18 Unknown Urine Ketones Trace (Negative) H 06/11/18 Unknown Urine Nitrite Negative (Negative) 06/11/18 Unknown Ur Leukocyte Esterase Negative (Negative) 06/11/18 Unknown
[2018-06-13] MEDS ORDERED: KETAMINE HCL INJ 50 MG/ML 10 ML VIAL ONE (09:30)
--- NOTE | 2018-06-13 09:57 | Operative Report ---
Post Operative Report Pre & Post Diagnosis Operation Date: 06/12/18 12:00 <No data on this case meets the specified criteria> Operation Date: 06/13/18 09:00 <No data on this case meets the specified criteria> Procedure Operation Date: 06/12/18 12:00 <No data on this case meets the specified criteria> Operation Date: 06/13/18 09:00 <No data on this case meets the specified criteria> Surgeon Law Hernandes MD Decommissioning Well Site Manager none Estimated Blood Loss 0 Findings Consistent with Post-Op Diagnosis Specimens none Description of Procedure Patient was identified in the preoperative holding area, appropriate informed consents reviewed and completed and the patient was transported to the operating suite. Upon arrival he received appropriate preoperative antibiotics in the form of ciprofloxacin. Adequate sedation was achieved and the patient was placed in dorsal lithotomy position where sterilely prepped and draped in standard fashion. To begin the case I passed a 22 Syrian cystoscope with 30 degree lens. Inspection of the urethra revealed no evidence of stricture disease. Is a small prostate. Inspection of the bladder revealed healthy mucosa without gross abnormality. I turned my attention to the left ureteral orifice and cannulated with a sensor wire and a 5 Syrian open-ended catheter. I advanced the wire under fluoroscopy. Of note there is a large opacity visualized in the proximal ureter, fortunately I was able to easily bypass this with a wire. I then placed a 6 Syrian by 26 cm double-J ureteral stent over the wire seeing a good curl in the kidney as well as the bladder. Bladder was decompressed and the case concluded. Patient was reversed from anesthesia and taken to the PACU in stable condition. There were no complications. I attest to the content of the Intraoperative Record and any orders documented therein. Any exceptions are noted below.
--- NOTE | 2018-06-13 10:07 | Fluoroscopy Report ---
FL KUB CLINICAL HISTORY: RETROGRADEstent placement COMPARISON STUDY: CT 06/11/2018 FLUOROSCOPY TIME: 5 seconds NUMBER OF FLUOROSCOPIC IMAGES: 1 FINDINGS: Image intensifier utilized for left ureteral stent placement IMPRESSION: Image intensifier utilization for left ureteral stent placement The above report was generated using voice recognition software. It may contain grammatical, syntax or spelling errors. Electronically signed by: Enrique Dumont M.D. 06/13/2018 10:06 AM
[2018-06-13] MEDS ORDERED: fentaNYL citrate 100 MCG/2 ML VIAL IV PRN (10:25)
[2018-06-13] MEDS ORDERED: ATROPINE SULFATE 0.1 MG/ML 10ML SYR IV PRN (10:25)
[2018-06-13] MEDS ORDERED: ePHEDrine sulfate 50 MG/ML AMP IV PRN (10:25)
--- NOTE | 2018-06-13 10:25 | Anesthesiology Progress Note ---
Date of Service June 13, 2018 Anesthesia Post Procedure Vital Signs Vital Signs: Temp Pulse Pulse Resp BP BP Pulse Ox 06/13/18 10:15 63 16 115/84 98 06/13/18 10:05 75 16 130/90 98 06/13/18 09:57 36.3 C L 75 16 127/79 100 06/13/18 07:51 36.6 C 76 18 124/80 98 06/12/18 23:12 36.8 C 86 16 136/74 97 06/12/18 16:01 37.1 C 91 H 18 136/79 94 Pain Intensity Abdomen: Pain Intensity: 5 Bilateral Leg: Pain Intensity: 6 Notes Mental Status: alert / awake / arousable Patient Amnestic to Procedure: Yes Nausea / Vomiting: adequately controlled Pain: adequately controlled Airway Patency, RR, SpO2: stable & adequate BP & HR: stable & adequate Hydration State: stable & adequate Anesthetic Complications: no major complications apparent and Pt Satisfied with anesthetic care
[2018-06-13] MEDS: DOCUSATE SODIUM 100 MG CAP PO SCH ×2 (11:19→20:18)
[2018-06-13] MEDS: OXYBUTYNIN CHLORIDE XL 5 MG TABCR PO SCH (11:59)
[2018-06-13] MEDS: HYDROmorphone INJ 0.5 MG/0.5 ML SYR IV PRN (15:12)
--- NOTE | 2018-06-13 15:14 | Hospitalist Progress Note ---
Date of Service June 13, 2018 Assessment & Plan (1) Hypercalcemia: Hypercalcemia H/O Primary hyperparathyroidism Symptomatic Hypercalcemia with constipation, generalized weakness, urolithiasis PTH levels elevated Low Vitamin D levels Continue IV fluids Calcium levels:10.9 today Nephrology Consulted Will need Parathyroid Surgery eventually Bowel regimen for constipation Avoid Calcium/Vit D supplements Hypokalemia Hypophosphatemia Replace electrolytes as needed Monitor electrolytes Obstructive Uropathy RUBI: --CT ABD:There is a 12 mm obstructing calculus in the left proximal ureter at the level of L2. There is no significant associated hydronephrosis. Additional bilateral nonobstructing calculi as above. Cholelithiasis without CT evidence of acute cholecystitis. S/P Cysto and Stent placement Cr:1.58>>>1.38>>1.31 Continue IV fluids Appreciate Urology help Nephrology consulted as well H/O Multiple sclerosis: Previously followed with On Ocrelizumab every 6 months--due in 1 month as per patient Chronic left sided weakness, dizziness, intermittent blurry vision Uses cane for ambulation at baseline Currently not interested in rehab placement H/O Mood disorder Stable Currently not on meds chronic pain H/O seizures as per records Currently not on meds DVT Px: Heparin SQ Code Status Full code Subjective Patient is seen and examined at bedside Had transient hematuria after ureteral stent placement today Denies dysuria, hematuria Reports chronic left sided weakness Denies chest pain, SOB chronic lower quadrant abd pain which radiated down his legs No other complaints Physical Exam Vital Signs (Past 24 Hours): Last Vital Signs Temp 37.4 C 06/13/18 15:11 Pulse 79 06/13/18 15:11 Resp 18 06/13/18 15:11 BP 144/75 H 06/13/18 15:11 Pulse Ox 96 06/13/18 15:11 Physical Exam: Physical Exam: Vitals signs as noted above General Appearance:Moderately built and nourished, no apparent distress Head: normocephalic, Atraumatic Eyes: normal inspection, EOMI Neck: supple, Trachea midline Respiratory/Chest: Normal breath sounds, CTA Cardiovascular: S1, S2, No murmur Abdomen/GI:Soft, Non tender, Bowel sounds present Extremities/Musculoskelatal:normal inspection, no edema Neurologic/Psych:AAOX3, Chronic left sided weakness Skin: normal color, warm Results & Data Laboratory Results Short CBC 06/13/18 Range/Units 05:32 WBC 5.75 (4.8-10.8) K/uL Hgb 12.2 L (14.0-18.0) g/dL Hct 36.3 L (42-52) % Plt Count 225 (130-400) K/uL BMP 06/13/18 05:32 Sodium 147 H Potassium 3.9 Chloride 117 H Carbon Dioxide 26 BUN 11 D Creatinine 1.31 Glucose 86 Calcium 10.9 H
--- NOTE | 2018-06-13 18:52 | Nephrology Progress Note ---
Date of Service June 13, 2018 Assessment & Plan (1) Hypercalcemia: calcium improved but not normalized w/ aggressive fluid resuscitation; pt endorses he might be dehydrated; with impacted stone removed will intsensify fluid -PTH now back at 222; 25 ohd at 28; consistent with primary hyperparathyroidism versus much less likely famiilial hypercalcemic hypocalciuria> will need outpt ent eval for possible parathyroidecotmy > consider Dr Orozco -daily bmp -start 24 hr urine for Calcium and creat to evaluate for FHH (2) Kidney stone: urology placed stent 06/13; for stone removal next few wks Subjective seen on rounds this am at 1010; just back from stent placement; tolerated well; stable chronic Llower body pain; R improved; no sob, no constipation, no mm/joint pain that's new; no confusion Physical Exam Vital Signs (Past 24 Hours): Last Vital Signs Temp 37.4 C 06/13/18 15:11 Pulse 79 06/13/18 15:11 Resp 18 06/13/18 15:11 BP 144/75 H 06/13/18 15:11 Pulse Ox 96 06/13/18 15:11 Constitutional: well developed and well nourished on ra maneuvers readily for exam Eyes: EOM intact bilaterally ENMT: Ears: no external ear abnormality Nose: no external nose abnormality Mouth: + dry oral mucous membranes Neck: no nuchal rigidity Respiratory: normal respiratory effort Auscultation: + diminished lung sounds Cardiovascular: RRR, no murmur, no edema Gastrointestinal (Abdomen): Inspection/Auscultation: normal bowel sounds Percussion/Palpation: abdomen soft; abdomen nontender Musculoskeletal: Extremities: strength 5/5 throughout Skin: no rashes, warm and dry Neurologic: BLE atrophy Results & Data Laboratory Results Abnormal lab results 06/13/18 06/13/18 Range/Units 05:32 05:32 RBC 4.07 L (4.7-6.1) M/uL Hgb 12.2 L (14.0-18.0) g/dL Hct 36.3 L (42-52) % MPV 10.6 H (7.4-10.4) fL Sodium 147 H (136-145) mmol/L Chloride 117 H (98-107) mmol/L BUN/Creatinine Ratio 8.0 L (10-20) Calcium 10.9 H (8.5-10.1) mg/dl Phosphorus 2.4 L (2.5-4.9) mg/dl
[2018-06-13] MEDS: OXYCODONE/ACETAMINOPHEN 5mg/325mg TAB PO PRN (21:49)
[2018-06-14 05:51] LABS: Hematocrit (blood only) 36.9 % (42-52); Hemoglobin 12.5 g/dL (14.0-18.0); Mean Corpuscular Hgb Conc 33.9 g/dL (32-36); Mean Corpuscular Volume 88.9 fL (80-100); Mean Platelet Volume 10.6 fL (7.4-10.4); Platelet Count 205 K/uL (130-400); RDW Coefficient of Variation 12.6 % (11.5-14.5); RDW Standard Deviation 41.1 fL (36.4-46.3); Red Blood Count 4.15 M/uL (4.7-6.1); White Blood Count 6.61 K/uL (4.8-10.8)
[2018-06-14] MEDS: HEPARIN SOD 5,000 UNIT/0.5 ML VIAL SQ SCH ×3 (05:57→21:41)
[2018-06-14] MEDS: ACETAMINOPHEN 325 MG TAB PO PRN ×2 (05:59→20:42)
[2018-06-14 06:10] LABS: BUN Creatinine Ratio 7.7 (10-20); Calcium 10.6 mg/dl (8.5-10.1); Creatinine Clr Calc Pharmacy 72.8 ml/min; Est GFR (African American) 70.9; Est GFR (Non-African American) 61.2; Magnesium 1.9 mg/dl (1.8-2.4); Phosphorus 2.3 mg/dl (2.5-4.9)
--- NOTE | 2018-06-14 08:03 | Nephrology Progress Note ---
Date of Service June 14, 2018 Assessment & Plan (1) Hypercalcemia: calcium improved but not normalized despite aggressive fluid resuscitation -PTH 222; 25 ohd at 28; consistent with primary hyperparathyroidism versus much less likely famiilial hypercalcemic hypocalciuria -changed IVF to normosol > given hyeprcalcemia, using vitamin D contraindicated here; insurance not likely to cover sensipar as an outpatient which would likely treat this hypercalcemia/HPTH -given ongoing elevated calcium and few good outpt ways to treat, recommend INPATIENT ent eval for possible parathyroidecotmy > Dr Orozco; kidney stone event w/ HPTH meets guideline criteria for consideration of parathyroidectomy -daily bmp -started 24 hr urine for Calcium and creat to evaluate for FHH; low index of suspicion for this -will add PTHrp for completeness (2) Kidney stone: urology placed stent 06/13; for stone removal next few wks Subjective stable chronic L sided pain; 24 hr urine got interrupted; needs another collec tion which has been started. no sob, no edema, no gross hematuria or voiding sx, no n/v, no new/worse mm/joint pain Physical Exam Vital Signs (Past 24 Hours): Last Vital Signs Temp 36.7 C 06/14/18 03:29 Pulse 74 06/14/18 03:29 Resp 16 06/14/18 03:29 BP 117/70 06/14/18 03:29 Pulse Ox 97 06/14/18 03:29 Constitutional: well developed and well nourished on RA eating Eyes: EOM intact bilaterally ENMT: Ears: no external ear abnormality Nose: no external nose abnormality Mouth: + dry oral mucous membranes Neck: no nuchal rigidity Respiratory: normal respiratory effort Auscultation: + diminished lung sounds Cardiovascular: RRR, no murmur, no edema Gastrointestinal (Abdomen): Inspection/Auscultation: normal bowel sounds Percussion/Palpation: abdomen soft; abdomen nontender Musculoskeletal: Extremities: strength 5/5 throughout Skin: no rashes, warm and dry Results & Data Laboratory Results Abnormal lab results 06/14/18 06/14/18 Range/Units 05:37 05:37 RBC 4.15 L (4.7-6.1) M/uL Hgb 12.5 L (14.0-18.0) g/dL Hct 36.9 L (42-52) % MPV 10.6 H (7.4-10.4) fL Chloride 114 H (98-107) mmol/L BUN/Creatinine Ratio 7.7 L (10-20) Calcium 10.6 H (8.5-10.1) mg/dl Phosphorus 2.3 L (2.5-4.9) mg/dl
[2018-06-14] MEDS: OXYBUTYNIN CHLORIDE XL 5 MG TABCR PO SCH (08:36)
[2018-06-14] MEDS: DOCUSATE SODIUM 100 MG CAP PO SCH ×2 (08:37→20:38)
[2018-06-14] MEDS: NORMOSOL-R 1,000 ML IV SCH ×2 (08:50→20:39)
[2018-06-14] MEDS: OXYCODONE/ACETAMINOPHEN 5mg/325mg TAB PO PRN (09:04)
--- NOTE | 2018-06-14 10:22 | Urology Progress Note ---
Date of Service June 14, 2018 Assessment & Plan (1) Kidney stone: 42yo M POD #1 s/p cysto, L ureteral stent placement for 12mm obs L prox ureteral stone. Bilateral renal stones. Doing well today. VS and labs stable, tolerating ureteral stent well. No further intervention at this time. Appreciate nephrology's input as always. Plan for close outpatient f/u to discuss definitive stone management in 1-2 weeks. Okay to d/c home with tamsulosin, pain control and pyridium (recommend low dose, 100mg) if okay with nephrology. Thank you for allowing us to participate in the acute care of Mr. Ramirez. Please reconsult us with additional questions, concerns or changes in patient status. Subjective 42yo M POD #1 s/p cysto, L ureteral stent placement for 12mm obs L prox ureteral stone. Bilateral renal stones. Pt doing well today. No complaints of ureteral stent irritation. Denies urgency/frequency/suprapubic pressure. Denies hematuria/dysuria. Still surprised he has stones, states "I hardly had any pain". Son with multiple stones at a 9yr old, unsure of metabolic workup. Currently undergoing 24-hour urine collection. Urine is clear/jerman in urinal Review of Systems All systems reviewed & are unremarkable except as noted in HPI & below Physical Exam Vital Signs (Past 24 Hours): Last Vital Signs Temp 36.8 C 06/14/18 09:00 Pulse 65 06/14/18 09:00 Resp 24 06/14/18 09:00 BP 122/80 06/14/18 09:00 Pulse Ox 96 06/14/18 09:00 Physical Exam: A&Ox3 RRR abd soft, nontender no suprapubic tenderness on palpation : urine clear/jerman in urinal Results & Data Laboratory Results Laboratory Results - last 48 hr 06/12/18 06/12/18 06/13/18 09:54 09:54 05:32 WBC 7.70 5.75 RBC 3.89 L 4.07 L Hgb 11.7 L 12.2 L Hct 34.2 L 36.3 L MCV 87.9 89.2 MCH 30.1 30.0 MCHC 34.2 33.6 RDW Std Deviation 40.9 41.2 RDW Coeff of Bret 12.7 12.7 Plt Count 232 225 MPV 10.6 H 10.6 H Immature Gran % (Auto) 0.3 Neut % (Auto) 74.0 Lymph % (Auto) 15.3 [place] % (Auto) 9.5 Eos % (Auto) 0.6 Baso % (Auto) 0.3 Immature Gran # (Auto) 0.02 Neut # (Auto) 5.70 Lymph # (Auto) 1.18 L [place] # (Auto) 0.73 H Eos # (Auto) 0.05 Baso # (Auto) 0.02 Sodium 145 Potassium 3.5 Chloride 115 H Carbon Dioxide 25 Anion Gap 5.0 BUN 7 Creatinine 1.38 Est Cr Clr Drug Dosing 73.3 Est GFR ( Amer) 71.6 Est GFR (Non-Af Amer) 61.7 BUN/Creatinine Ratio 5.1 L Glucose 106 H Calcium 10.6 H Phosphorus 2.0 L D Magnesium Specimen Hemolysis 06/13/18 06/14/18 06/14/18 05:32 05:37 05:37 WBC 6.61 RBC 4.15 L Hgb 12.5 L Hct 36.9 L MCV 88.9 MCH 30.1 MCHC 33.9 RDW Std Deviation 41.1 RDW Coeff of Bret 12.6 Plt Count 205 MPV 10.6 H Immature Gran % (Auto) Neut % (Auto) Lymph % (Auto) [place] % (Auto) Eos % (Auto) Baso % (Auto) Immature Gran # (Auto) Neut # (Auto) Lymph # (Auto) [place] # (Auto) Eos # (Auto) Baso # (Auto) Sodium 147 H 145 Potassium 3.9 4.0 Chloride 117 H 114 H Carbon Dioxide 26 25 Anion Gap 5.0 6.0 BUN 11 D 11 Creatinine 1.31 1.39 Est Cr Clr Drug Dosing 77.3 72.8 Est GFR ( Amer) 76.2 70.9 Est GFR (Non-Af Amer) 65.8 61.2 BUN/Creatinine Ratio 8.0 L 7.7 L Glucose 86 89 Calcium 10.9 H 10.6 H Phosphorus 2.4 L 2.3 L Magnesium 1.9 1.9 Specimen Hemolysis
[2018-06-14] MEDS: SODIUM CHLOR 0.45% + 20MEQ KCL 20 MEQ/1,000 ML BAG IV SCH (11:52)
--- NOTE | 2018-06-14 14:53 | Hospitalist Progress Note ---
Date of Service June 14, 2018 Assessment & Plan (1) Hypercalcemia: Hypercalcemia H/O Primary hyperparathyroidism Symptomatic Hypercalcemia with constipation, generalized weakness, urolithiasis PTH levels elevated Low Vitamin D levels 24 Hr Urine for Calcium: Pending to r/o familial hypercalcemic hypocalciuria PTHrp: pending Continue IV fluids Calcium levels:10.6 today Appreciate Nephrology Input Consulted ENT for possible Parathyroidectomy Bowel regimen for constipation Avoid Calcium/Vit D supplements Hypokalemia Hypophosphatemia Replace electrolytes as needed Monitor electrolytes Obstructive Uropathy RUBI: --CT ABD:There is a 12 mm obstructing calculus in the left proximal ureter at the level of L2. There is no significant associated hydronephrosis. Additional bilateral nonobstructing calculi as above. Cholelithiasis without CT evidence of acute cholecystitis. S/P Cysto and Stent placement Cr:1.58>>>1.38>>1.39 Continue IV fluids Appreciate Urology help Started on flomax Appreciate Nephrology input Needs FU with Urology upon discharge H/O Multiple sclerosis: Previously followed with On Ocrelizumab every 6 months--due in 1 month as per patient Chronic left sided weakness, dizziness, intermittent blurry vision Uses cane for ambulation at baseline Currently not interested in rehab placement H/O Mood disorder Stable Currently not on meds chronic pain H/O seizures as per records Currently not on meds DVT Px: Heparin SQ Code Status Full code Subjective Patient is seen and examined at bedside Minimal hematuria this morning No other complaints Reports chronic left sided weakness Denies chest pain, SOB, dysuria chronic lower quadrant abd pain which radiated down his legs No other complaints Physical Exam Vital Signs (Past 24 Hours): Last Vital Signs Temp 36.9 C 06/14/18 12:25 Pulse 66 06/14/18 12:25 Resp 22 06/14/18 12:25 BP 120/82 06/14/18 12:25 Pulse Ox 98 06/14/18 12:25 Physical Exam: Physical Exam: Vitals signs as noted above General Appearance:Moderately built and nourished, no apparent distress Head: normocephalic, Atraumatic Eyes: normal inspection, EOMI Neck: supple, Trachea midline Respiratory/Chest: Normal breath sounds, CTA Cardiovascular: S1, S2, No murmur Abdomen/GI:Soft, Non tender, Bowel sounds present Extremities/Musculoskelatal:normal inspection, no edema Neurologic/Psych:AAOX3, Chronic left sided weakness Skin: normal color, warm Results & Data Laboratory Results Short CBC 06/14/18 Range/Units 05:37 WBC 6.61 (4.8-10.8) K/uL Hgb 12.5 L (14.0-18.0) g/dL Hct 36.9 L (42-52) % Plt Count 205 (130-400) K/uL BMP 06/14/18 05:37 Sodium 145 Potassium 4.0 Chloride 114 H Carbon Dioxide 25 BUN 11 Creatinine 1.39 Glucose 89 Calcium 10.6 H
[2018-06-15 05:33] LABS: Hematocrit (blood only) 35.1 % (42-52); Hemoglobin 11.9 g/dL (14.0-18.0); Mean Corpuscular Hgb Conc 33.9 g/dL (32-36); Mean Corpuscular Volume 87.5 fL (80-100); Mean Platelet Volume 10.5 fL (7.4-10.4); Platelet Count 197 K/uL (130-400); RDW Coefficient of Variation 12.4 % (11.5-14.5); RDW Standard Deviation 40.4 fL (36.4-46.3); Red Blood Count 4.01 M/uL (4.7-6.1); White Blood Count 6.48 K/uL (4.8-10.8)
[2018-06-15] MEDS: HEPARIN SOD 5,000 UNIT/0.5 ML VIAL SQ SCH ×3 (05:50→21:42)
[2018-06-15 05:54] LABS: BUN Creatinine Ratio 12.2 (10-20); Calcium 10.2 mg/dl (8.5-10.1); Creatinine Clr Calc Pharmacy 84.3 ml/min; Est GFR (African American) 84.7; Est GFR (Non-African American) 73.1; Phosphorus 1.8 mg/dl (2.5-4.9); Potassium 3.9 mmol/L (3.5-5.1)
[2018-06-15] MEDS: OXYBUTYNIN CHLORIDE XL 5 MG TABCR PO SCH (08:50)
[2018-06-15] MEDS: TAMSULOSIN HCL 0.4 MG CAP PO SCH (08:50)
[2018-06-15] MEDS: DOCUSATE SODIUM 100 MG CAP PO SCH ×2 (08:50→21:33)
[2018-06-15] MEDS ORDERED: SODIUM PHOSPHATE 3 MMOL/1 ML INFUSION IV STA (10:01)
[2018-06-15] MEDS ORDERED: SODIUM PHOSPHATE 15 MMOL in SODIUM CHLORIDE 0.9% 250 ML IV ONE (10:15)
[2018-06-15] MEDS: NORMOSOL-R 1,000 ML IV SCH ×2 (10:16→21:41)
[2018-06-15 15:00] LABS: Urine Calcium 8.9 mg/dl
[2018-06-15 15:05] LABS: Urine Creatinine 58.5 mg/dl
--- NOTE | 2018-06-15 19:42 | Hospitalist Progress Note ---
Date of Service June 15, 2018 Assessment & Plan (1) Hypercalcemia: Hypercalcemia H/O Primary hyperparathyroidism Symptomatic Hypercalcemia with constipation, generalized weakness, urolithiasis PTH levels elevated Low Vitamin D levels 24 Hr Urine for Calcium: 279.5 PTHrp: pending Continue IV fluids Calcium levels:10.2 today Appreciate Nephrology Input Discussed with ENT Dr.Mara Tracey for possible Parathyroidectomy Bowel regimen for constipation Avoid Calcium/Vit D supplements planning to arrange for outpatient appointment on 06/21/18 Requests copy chart faxed to her office: Patient agreed with the plan of further work up as outpatient and follow up with ENT as outpatient Hypokalemia Hypophosphatemia Replace electrolytes as needed Monitor electrolytes Obstructive Uropathy RUBI: --CT ABD:There is a 12 mm obstructing calculus in the left proximal ureter at the level of L2. There is no significant associated hydronephrosis. Additional bilateral nonobstructing calculi as above. Cholelithiasis without CT evidence of acute cholecystitis. S/P Cysto and Stent placement Cr:1.58>>>1.38>>1.39>>1.20 Continue IV fluids Appreciate Urology help Continue flomax Appreciate Nephrology input Needs FU with Urology upon discharge H/O Multiple sclerosis: Previously followed with On Ocrelizumab every 6 months--due in 1 month as per patient Chronic left sided weakness, dizziness, intermittent blurry vision Uses cane for ambulation at baseline Currently not interested in rehab placement Needs to re-establish Care with H/O Mood disorder Stable Currently not on meds chronic pain H/O seizures as per records Currently not on meds DVT Px: Heparin SQ Code Status Full code Disposition: Needs to re-establish care with [facility] PCP Subjective Patient is seen and examined at bedside Doing well No new complaints Reports chronic left sided weakness Denies chest pain, SOB, dysuria chronic lower quadrant abd pain which radiated down his legs Discussed with patient regarding possible parathyroidectomy as outpatient Physical Exam Vital Signs (Past 24 Hours): Last Vital Signs Temp 36.6 C 06/15/18 15:51 Pulse 91 H 06/15/18 15:51 Resp 18 06/15/18 15:51 BP 138/79 06/15/18 15:51 Pulse Ox 96 06/15/18 15:51 Physical Exam: Physical Exam: Vitals signs as noted above General Appearance:Moderately built and nourished, no apparent distress Head: normocephalic, Atraumatic Eyes: normal inspection, EOMI Neck: supple, Trachea midline Respiratory/Chest: Normal breath sounds, CTA Cardiovascular: S1, S2, No murmur Abdomen/GI:Soft, Non tender, Bowel sounds present Extremities/Musculoskelatal:normal inspection, no edema Neurologic/Psych:AAOX3, Chronic left sided weakness Skin: normal color, warm Results & Data Laboratory Results Short CBC 06/15/18 Range/Units 05:20 WBC 6.48 (4.8-10.8) K/uL Hgb 11.9 L (14.0-18.0) g/dL Hct 35.1 L (42-52) % Plt Count 197 (130-400) K/uL BMP 06/15/18 05:20 Sodium 144 Potassium 3.9 Chloride 115 H Carbon Dioxide 26 BUN 15 Creatinine 1.20 Glucose 91 Calcium 10.2 H
[2018-06-15] MEDS: ACETAMINOPHEN 325 MG TAB PO PRN (23:29)
[2018-06-15 23:40] VITALS: TEMP 97.7
[2018-06-16] MEDS: HEPARIN SOD 5,000 UNIT/0.5 ML VIAL SQ SCH ×2 (06:04→15:32)
--- NOTE | 2018-06-16 07:17 | Nephrology Progress Note ---
Date of Service June 16, 2018 Assessment & Plan (1) Hypercalcemia: calcium improved but not normalized despite aggressive fluid resuscitation -PTH 222; 25 ohd at 28; consistent with primary hyperparathyroidism versus much less likely famiilial hypercalcemic hypocalciuria -cont normosol while in house > given hypercalcemia, using vitamin D contraindicated here; insurance not likely to cover sensipar as an outpatient which would likely treat this hypercalcemia/HPTH -given ongoing elevated calcium, low phos and clear mechanism with few good outpt ways to treat, recommend INPATIENT ent eval for possible parathyroidecotmy > Dr Orozco; kidney stone event w/ HPTH meets guideline criteria for consideration of parathyroidectomy -daily bmp -24 hr urine for Calcium and other labs c/w primary hyperparathyroidism -PTHrp is pending (2) Kidney stone: urology placed stent 06/13; for stone removal next few wks Subjective seen on rounds 0700; no c/o n or change in pain or sob; denies voiding issues Physical Exam Vital Signs (Past 24 Hours): Last Vital Signs Temp 36.5 C 06/15/18 22:58 Pulse 78 06/15/18 22:58 Resp 16 06/15/18 22:58 BP 138/76 06/15/18 22:58 Pulse Ox 93 06/15/18 22:58 Constitutional: well developed and well nourished sitting in bed on ra Eyes: EOM intact bilaterally ENMT: Ears: no external ear abnormality Nose: no external nose abnormality Mouth: + dry oral mucous membranes Neck: no nuchal rigidity Respiratory: normal respiratory effort Auscultation: + diminished lung sounds Cardiovascular: RRR, no murmur, no edema Gastrointestinal (Abdomen): Inspection/Auscultation: normal bowel sounds Percussion/Palpation: abdomen soft; abdomen nontender Musculoskeletal: Extremities: strength 5/5 throughout Skin: no rashes, warm and dry Neurologic: jonathon baker speech
[2018-06-16 07:41] LABS: BUN Creatinine Ratio 13.1 (10-20); Calcium 10.2 mg/dl (8.5-10.1); Est GFR (African American) 85.6; Est GFR (Non-African American) 73.8; Potassium 3.8 mmol/L (3.5-5.1)
[2018-06-16] MEDS: OXYBUTYNIN CHLORIDE XL 5 MG TABCR PO SCH (08:46)
[2018-06-16] MEDS: TAMSULOSIN HCL 0.4 MG CAP PO SCH (08:46)
[2018-06-16] MEDS: DOCUSATE SODIUM 100 MG CAP PO SCH (08:46)
[2018-06-16] MEDS: NORMOSOL-R 1,000 ML IV SCH (11:42)
[2018-06-16 15:40] VITALS: BP 133/83; O2SAT 97
[2018-06-16 16:02] VITALS: PULSE 66
--- NOTE | 2018-06-16 16:23 | Hospitalist Progress Note ---
Date of Service June 16, 2018 Assessment & Plan (1) Hypercalcemia: Hypercalcemia H/O Primary hyperparathyroidism Symptomatic Hypercalcemia with constipation, generalized weakness, urolithiasis PTH levels elevated above 200 Low Vitamin D levels 24 Hr Urine for Calcium: 279.5 PTHrp: pending Patient's admission serum calcium have declined from 12.5 on admission to stabilize at 10.2 after IV fluids Patient was evaluated as inpatient by nephrology (given hypercalcemia, using vitamin D contraindicated here; insurance not likely to cover sensipar as an outpatient which would likely treat this hypercalcemia/HPTH) Plans have been made for patient to follow up as outpatient for ENT clinic Ear Nose Throat clinic will notify patient appointment time for possible parathyroid involvement in hypercalcemia Dr. Ann Marie Tracey Address: [address] [place] [address], [place] [address] Requests copy chart faxed to her office: Hypophosphatemia likely due to hypercalcemia Hypokalemia is resolved Obstructive Uropathy due to Left renal stone CT ABD:There is a 12 mm obstructing calculus in the left proximal ureter at the level of L2. There is no significant associated hydronephrosis. Additional bilateral nonobstructing calculi as above. Cholelithiasis without CT evidence of acute cholecystitis. S/P Cysto and Left ureteral stent placement for 12mm obs L prox ureteral stone by [facility] urology group patient will have outpatient [facility] urology clinic follow up discharge with tamsulosin Acute kidney injury resolved after IV fluids and stent placement History of Multiple sclerosis: Previously followed with On Ocrelizumab every 6 months--due in 1 month as per patient Chronic left sided weakness, dizziness, intermittent blurry vision Uses cane for ambulation at baseline patient is not interested in rehab placement has outpatient appointment with neurology clinic History of seizures as per records Currently not on medications no seizures on this hospital stay has outpatient appointment with neurology clinic History of Mood disorder / History of chronic pain Stable without medications pain appears controlled Primary care hospitalist have checked with [facility] appointment line and that patient has been discharged from [facility] primary care clinics due to missed appointments, patient explained that his insurance problems from the past prevented him from seeing physicians. He is interested in following with different medical group in the local area to establish primary care clinic DVT Px:Heparin SQ while inpatient Code Status Full code Discharge Diagnosis Multiple Sclerosis, obstructive uropathy, left renal calculus, Acute Kidney Injury, Hypercalcemia, Hypophosphatemia Discharge instructions Patient will need to establish with a primary care doctor Neurology clinic appointment for multiple sclerosis 06/17/2018 8:00 AM Provider Rachel Rincon PA-C Department Neurology [facility] Ear Nose Throat clinic will notify patient appointment time for possible parathyroid involvement in hypercalcemia Dr. Ann Marie Tracey Address: [address] [place] [address], [place] [address] [facility] FOLLOW UP Recommendations from your Urologist: Please take all medications as prescribed and keep all follow-ups as scheduled. Please call our office at [phone] with any questions, concerns or need to reschedule appointments for any reason. We are happy to assist you. While you have a ureteral stent in place: Some discomfort is normal. Certain movements may trigger pain or a feeling that you need to urinate. You may also feel mild soreness or pressure before or during urination. These symptoms should go away a few days after the stent is removed. Your urine may be slightly pink or red. This is due to bleeding caused by minor irritation from the stent. This may happen on and off while you have the stent, it is not harmful and is to be expected. Medication to help minimize discomfort or bladder spasms, or to prevent infection may be prescribed. Take this as directed. Drink plenty of fluids to help flush out your urinary tract. If you go home with a catheter, wash with soapy water and a fresh washcloth twice daily. We recommend mild bar soap such as Dial or Dove. How long will you need a stent? An appointment should already be made for you for stent removal, unless directed otherwise. The stent is often taken out after the blockage in the ureter is treated or the ureter has healed. This may take 1-2 weeks, or longer. If a stent is needed for a longer period of time, it may need to be exchanged every few months. Likely prior to your followup appointment you will be asked to get an X-ray, please complete this the night before or morning of your appointment. When to call [facility] Urology at [phone]: Your urine contains heavy blood clots You are constantly leaking urine Fever of 101F or higher, chills, nausea, or vomiting Your pain is not relieved with medication The end of the stent comes out of your urethra Subjective Patient denied constipation. denies confusion. denies abdominal pain. no chest pain. no shortness of breath. we discussed discharge plans and follow ups at length Physical Exam Constitutional: WD/WN, vitals as above Eyes: PERRL, conjunctivae normal, anicteric sclerae EOM intact bilaterally ENMT: external ear and nose normal, oropharynx normal Neck: trachea midline, no thyromegaly Respiratory: normal respiratory effort, lungs clear to auscultation Cardiovascular: Rate/Rhythm: regular rate and regular rhythm Gastrointestinal (Abdomen): normal bowel sounds, soft, nontender, no hepatosplenomegaly Musculoskeletal: no cyanosis or clubbing, extremities motor strength 5/5 Head/Neck/Chest: normocephalic and head atraumatic Neurologic: PERRL, EOMI, accommodation nl, no face palsy, no dysarthria CN's II-XI intact bilaterally Psychiatric: A+Ox3, euthymic affect Results & Data Vital Signs (Past 12 Hours) Vital Signs Temp Pulse Pulse Resp BP BP Pulse Ox 06/16/18 16:00 36.5 C 66 91 H 18 124/79 133/83 97 06/16/18 15:39 36.5 C 91 H 18 133/83 97 06/16/18 07:50 36.5 C 65 16 124/79 95
--- NOTE | 2018-06-16 16:38 | Discharge Summary ---
Date of Service June 16, 2018 Admission HPI Per Admitting Provider History obtained from patient and records. Medical history significant for multiple sclerosis, primary hyperparathyroidism, mood disorder chronic pain, history seizures as per records. Recent confinement last year for multiple sclerosis flare up and hypercalcemia. Patient not feeling well the last week. Yesterday patient noted dizziness described as lightheadedness, nausea/emesis following fall from weakness, constipation, achy lower abdominal pain, no hematuria, no fever, no chills. Admission Exam Per Admitting Provider Physical Exam: GENERAL: Comfortable, loquacious, no respiratory distress SKIN: Pallor , warm HEENT: pale palpebral conjunctivae, no ptosis, ? Subtle L facial asymmetry on speech, dry buccal mucosa NECK : Supple, no tenderness CHEST : CTA, no tenderness HEART : RRR, no obvious murmurs ABDOMEN: Some distention, minimal hypogastric tenderness EXTREMITIES : No LE swelling/tenderness, no other conspicuous deformities noted NEUROLOGIC : Coherent, subtle facial asymmetry on speech, MMTS LUE/LLE 4/5 (chronic) Principal Diagnosis Multiple Sclerosis, obstructive uropathy, left renal calculus, Acute Kidney Injury, Hypercalcemia, Hypophosphatemia Discharge Exam Constitutional WD/WN, vitals as above Eyes PERRL, conjunctivae normal, anicteric sclerae EOM intact bilaterally ENMT external ear and nose normal, oropharynx normal Neck trachea midline, no thyromegaly Respiratory normal respiratory effort, lungs clear to auscultation Cardiovascular Rate/Rhythm: regular rate and regular rhythm Gastrointestinal (Abdomen) normal bowel sounds, soft, nontender, no hepatosplenomegaly Musculoskeletal no cyanosis or clubbing, extremities motor strength 5/5 Head/Neck/Chest: normocephalic and head atraumatic Neurologic PERRL, EOMI, accommodation nl, no face palsy, no dysarthria CN's II-XI intact bilaterally Psychiatric A+Ox3, euthymic affect Discharge Data Allergies Allergy/AdvReac Type Severity Reaction Status Date / Time No Known Allergies Allergy Verified 06/11/18 22:11 Consultations 06/11/18 23:41 ED Decision to Admit Stat 06/12/18 02:05 Consult Nephrology Routine Consult Urology Routine Procedures Performed Operation Date: 06/12/18 12:00 <No data on this case meets the specified criteria> Operation Date: 06/13/18 09:00 Actual Procedures p Cystoscopy Ureteral Stent Insertion(Left) - Demario Hernandes MD Ordered Studies 06/11/18 22:12 CT abd pelvis wo con Stat 06/13/18 FL KUB Routine 06/13/18 09:25 FL fluoroscopy <1hr Routine Hospital Course (1) Hypercalcemia: Hypercalcemia H/O Primary hyperparathyroidism Symptomatic Hypercalcemia with constipation, generalized weakness, urolithiasis PTH levels elevated above 200 Low Vitamin D levels 24 Hr Urine for Calcium: 279.5 PTHrp: pending Patient's admission serum calcium have declined from 12.5 on admission to stabilize at 10.2 after IV fluids Patient was evaluated as inpatient by nephrology (given hypercalcemia, using vitamin D contraindicated here; insurance not likely to cover sensipar as an outpatient which would likely treat this hypercalcemia/HPTH) Plans have been made for patient to follow up as outpatient for ENT clinic Ear Nose Throat clinic will notify patient appointment time for possible parathyroid involvement in hypercalcemia Dr. Ann Marie Tracey Address: [address] [place] [id number] Requests copy chart faxed to her office: Hypophosphatemia likely due to hypercalcemia Hypokalemia is resolved Obstructive Uropathy due to Left renal stone CT ABD:There is a 12 mm obstructing calculus in the left proximal ureter at the level of L2. There is no significant associated hydronephrosis. Additional bilateral nonobstructing calculi as above. Cholelithiasis without CT evidence of acute cholecystitis. S/P Cysto and Left ureteral stent placement for 12mm obs L prox ureteral stone by [facility] urology group patient will have outpatient [facility] urology clinic follow up discharge with tamsulosin Acute kidney injury resolved after IV fluids and stent placement History of Multiple sclerosis: Previously followed with On Ocrelizumab every 6 months--due in 1 month as per patient Chronic left sided weakness, dizziness, intermittent blurry vision Uses cane for ambulation at baseline patient is not interested in rehab placement has outpatient appointment with neurology clinic History of seizures as per records Currently not on medications no seizures on this hospital stay has outpatient appointment with neurology clinic History of Mood disorder / History of chronic pain Stable without medications pain appears controlled Primary care hospitalist have checked with [facility] appointment line and that patient has been discharged from [facility] primary care clinics due to missed appointments, patient explained that his insurance problems from the past prevented him from seeing physicians. He is interested in following with different medical group in the local area to establish primary care clinic DVT Px:Heparin SQ while inpatient Code Status Full code Discharge Diagnosis Multiple Sclerosis, obstructive uropathy, left renal calculus, Acute Kidney Injury, Hypercalcemia, Hypophosphatemia Discharge instructions Patient will need to establish with a primary care doctor Neurology clinic appointment for multiple sclerosis 06/17/2018 8:00 AM Provider Rachel Rincon PA-C Department Neurology [facility] Ear Nose Throat clinic will notify patient appointment time for possible parathyroid involvement in hypercalcemia Dr. Ann Marie Tracey Address: [address] [place] [address], [place] [address] [facility] FOLLOW UP Recommendations from your Urologist: Please take all medications as prescribed and keep all follow-ups as scheduled. Please call our office at [phone] with any questions, concerns or need to reschedule appointments for any reason. We are happy to assist you. While you have a ureteral stent in place: Some discomfort is normal. Certain movements may trigger pain or a feeling that you need to urinate. You may also feel mild soreness or pressure before or during urination. These symptoms should go away a few days after the stent is removed. Your urine may be slightly pink or red. This is due to bleeding caused by minor irritation from the stent. This may happen on and off while you have the stent, it is not harmful and is to be expected. Medication to help minimize discomfort or bladder spasms, or to prevent infection may be prescribed. Take this as directed. Drink plenty of fluids to help flush out your urinary tract. If you go home with a catheter, wash with soapy water and a fresh washcloth twice daily. We recommend mild bar soap such as Dial or Dove. How long will you need a stent? An appointment should already be made for you for stent removal, unless directed otherwise. The stent is often taken out after the blockage in the ureter is treated or the ureter has healed. This may take 1-2 weeks, or longer. If a stent is needed for a longer period of time, it may need to be exchanged every few months. Likely prior to your followup appointment you will be asked to get an X-ray, please complete this the night before or morning of your appointment. When to call [facility] Urology at [phone]: Your urine contains heavy blood clots You are constantly leaking urine Fever of 101F or higher, chills, nausea, or vomiting Your pain is not relieved with medication The end of the stent comes out of your urethra Total Time Total Time Spent Total Time Spent (In Minutes): 40 minutes Total Time Includes: Examination of the Patient, Discharge Planning and Medication Reconciliation Discharge Plan Discharge Items Patient Disposition: Home - Self-Care Reason For Visit: HYPERCALECMIA Discharge Diagnosis: Multiple Sclerosis, obstructive uropathy, left renal calculus, Acute Kidney Injury, Hypercalcemia, Hypophosphatemia Condition: Good Discharge Goals: Improve disease control Activity: Resume your previous activity Non-emergency contact: Primary Care Provider and Specialist Call non-emergency contact if: you have any medication questions Follow-up/Referrals: PCP,NITESH [Primary Care Provider] - Addtl Provider Instructions: Patient will need to establish with a primary care doctor Neurology clinic appointment for multiple sclerosis 06/17/2018 8:00 AM Provider Rachel Rincon PA-C Department Neurology [facility] Ear Nose Throat clinic will notify patient appointment time for possible parathyroid involvement in hypercalcemia Dr. Ann Marie Tracey Address: [address] [place] [id number] [facility] FOLLOW UP Recommendations from your Urologist: Please take all medications as prescribed and keep all follow-ups as scheduled. Please call our office at [phone] with any questions, concerns or need to reschedule appointments for any reason. We are happy to assist you. While you have a ureteral stent in place: Some discomfort is normal. Certain movements may trigger pain or a feeling that you need to urinate. You may also feel mild soreness or pressure before or during urination. These symptoms should go away a few days after the stent is removed. Your urine may be slightly pink or red. This is due to bleeding caused by minor irritation from the stent. This may happen on and off while you have the stent, it is not harmful and is to be expected. Medication to help minimize discomfort or bladder spasms, or to prevent infection may be prescribed. Take this as directed. Drink plenty of fluids to help flush out your urinary tract. If you go home with a catheter, wash with soapy water and a fresh washcloth twice daily. We recommend mild bar soap such as Dial or Dove. How long will you need a stent? An appointment should already be made for you for stent removal, unless directed otherwise. The stent is often taken out after the blockage in the ureter is treated or the ureter has healed. This may take 1-2 weeks, or longer. If a stent is needed for a longer period of time, it may need to be exchanged every few months. Likely prior to your followup appointment you will be asked to get an X-ray, please complete this the night before or morning of your appointment. When to call [facility] Urology at [phone]: Your urine contains heavy blood clots You are constantly leaking urine Fever of 101F or higher, chills, nausea, or vomiting Your pain is not relieved with medication The end of the stent comes out of your urethra Prescriptions: New tamsulosin 0.4 mg Capsule 0.4 mg PO QAM 30 Days Qty: 30 RF: 0 Continued ocrelizumab 30 mg/mL Solution 1 dose IV DIRECTED RF: 0 Stand-Alone Forms: [facility] Discharge Orders: Discharge Order (Routine); Ordered 06/16/18 Ordered By: Krish Nieto Admission Data Admit Date/Time: 06/12/18 02:05 Attending Provider: Krish Nieto Admit Provider: Sonny Magallon Primary Care Provider: PCP,NO Other Providers: Sonny Magallon ; Jocy Jackson ; Yves Moreno ; Oralia Brady I ; Keke Herrera ; Delores Lundy ; Shirin Darling ; Phani Gil ; Ashwin Dorantes ; Sy Do I. ; Demario Hernandes ; Sol Maya ; Girma Bacon II ; Lynne Rascon Service: Surgical Services Other Interventions: Discharge Summary Assessment (RN) Last Done: 06/16/18 16:00
== END 2018-06-16 16:40 | disposition home or self-care (01) | DRG 660 ==
LOC: ED 21:05 → 3E 06-12 02:05 → SUATTDRO 06-12 02:05 → 3E 06-12 02:34

== ENCOUNTER 2020-04-26 18:14 | Inpatient (IN) ==
[2020-04-26] MEDS ORDERED: LOPERAMIDE LIQUID 120 ML BOTTLE PO PRN (18:44)
[2020-04-26] MEDS ORDERED: SODIUM CHLORIDE 0.9% 1000ML 1,000 ML IV SCH (18:45)
--- NOTE | 2020-04-26 18:53 | Emergency Department Note ---
History of Present Illness General Chief complaint: Illness Stated complaint: UNABLE TO AMBULATE Time Seen by Provider: 04/26/20 18:36 Source: patient Mode of arrival: EMS Limitations: no limitations History of Present Illness Provider complaint: Weakness and diarrhea This is a 44-year-old male who presents to the ED with a chief complaint of severe weakness as well as diarrhea and feeling dehydrated. The patient has a history of MS. He states that he is not taking any medication for. He states that beginning around 3 AM today he developed diarrhea. He has gone about 5 times. He is not sure why he has developed diarrhea. No one else in his family has diarrhea. He lives with his parents and brother. The patient denies any abdominal discomfort. The patient has chronic weakness in his left leg and left arm. He is mostly wheelchair-bound with exception of transfers which she can do on his own typically. He has been too weak to do that today. No fevers. No nausea vomiting. No chest pains or shortness of breath. Home Medications Medication Instructions Recorded Confirmed Type acetaminophen [Tylenol Extra 1,000 mg PO Q6H PRN 04/26/20 04/26/20 History Strength] Allergies Allergy/AdvReac Type Severity Reaction Status Date / Time No Known Allergies Allergy Verified 04/26/20 20:27 Past Med/Surg History Medical History (Updated 04/26/20 @ 18:52 by Eric Morin DO) Hypercalcemia Hyperparathyroidism Multiple sclerosis Obstructive uropathy 2/2 renal stone, caused RUBI, pt admitted for this and hypercalcemia 05/2018 Seizure disorder Many years ago may have had single episode, pt was never treated for this, no reoccurrence. Surgical History History of cystoscopy WITH STENT PLACEMENT 06/14/18 [facility] Family History Other Hypertension Kidney stones Social History Smoking Status: Never smoker Cigarettes Per Day: 0; Second Hand Exposure: No; Hx Alcohol Use: No Hx Substance Use: No Preferred Language: Icelandic Communication Ability: Effective Rad Tech Required: No Beliefs That Will Affect Care: None Current Living Situation: Family current occupational status: disabled Feels Safe at Home: Yes Assistive Devices: Cane and Wheelchair Review of Systems A total of 10 systems reviewed and were otherwise negative Physical Exam Vital Signs Vital Signs - 24 hr 04/26/20 18:32 04/26/20 18:35 04/26/20 18:36 Temperature 36.7 C Temperature Source Oral Pulse Rate 81 89 84 Pulse Rate from SpO2 Sensor 81 84 Respiratory Rate 16 18 14 Respiratory Effort / Characteristics Non-Labored Spontaneous Blood Pressure 136/88 147/81 H Blood Pressure Mean 104 103 Blood Pressure Position Lying Pulse Oximetry 98 98 99 Oxygen Delivery Method Room Air Sepsis Recent Fever Within 48 Hours No Sepsis New/Unexplained Change in Mental Status No Sepsis Action Taken by Nursing No Action Required 04/26/20 18:40 04/26/20 18:43 04/26/20 18:50 Temperature Temperature Source Pulse Rate 86 83 83 Pulse Rate from SpO2 Sensor 85 83 Respiratory Rate 13 20 15 Respiratory Effort / Characteristics Blood Pressure Blood Pressure Mean Blood Pressure Position Pulse Oximetry 99 97 99 Oxygen Delivery Method Room Air Sepsis Recent Fever Within 48 Hours Sepsis New/Unexplained Change in Mental Status Sepsis Action Taken by Nursing 04/26/20 19:00 04/26/20 19:10 04/26/20 19:20 Temperature Temperature Source Pulse Rate 82 82 82 Pulse Rate from SpO2 Sensor 83 83 81 Respiratory Rate 16 19 21 Respiratory Effort / Characteristics Blood Pressure Blood Pressure Mean Blood Pressure Position Pulse Oximetry 99 98 99 Oxygen Delivery Method Sepsis Recent Fever Within 48 Hours Sepsis New/Unexplained Change in Mental Status Sepsis Action Taken by Nursing 04/26/20 19:30 04/26/20 19:40 04/26/20 19:50 Temperature Temperature Source Pulse Rate 88 81 82 Pulse Rate from SpO2 Sensor 87 83 83 Respiratory Rate 15 17 17 Respiratory Effort / Characteristics Blood Pressure Blood Pressure Mean Blood Pressure Position Pulse Oximetry 99 99 99 Oxygen Delivery Method Sepsis Recent Fever Within 48 Hours Sepsis New/Unexplained Change in Mental Status Sepsis Action Taken by Nursing 04/26/20 20:00 04/26/20 20:10 04/26/20 20:20 Temperature Temperature Source Pulse Rate 82 85 89 Pulse Rate from SpO2 Sensor 84 85 87 Respiratory Rate 16 17 19 Respiratory Effort / Characteristics Blood Pressure Blood Pressure Mean Blood Pressure Position Pulse Oximetry 99 99 99 Oxygen Delivery Method Sepsis Recent Fever Within 48 Hours Sepsis New/Unexplained Change in Mental Status Sepsis Action Taken by Nursing 04/26/20 20:30 04/26/20 20:35 04/26/20 20:40 Temperature Temperature Source Pulse Rate 84 85 83 Pulse Rate from SpO2 Sensor 84 85 85 Respiratory Rate 16 24 19 Respiratory Effort / Characteristics Blood Pressure 135/79 Blood Pressure Mean 97 Blood Pressure Position Pulse Oximetry 98 99 98 Oxygen Delivery Method Sepsis Recent Fever Within 48 Hours Sepsis New/Unexplained Change in Mental Status Sepsis Action Taken by Nursing 04/26/20 20:50 04/26/20 21:00 04/26/20 21:10 Temperature Temperature Source Pulse Rate 79 83 82 Pulse Rate from SpO2 Sensor 78 83 83 Respiratory Rate 15 20 19 Respiratory Effort / Characteristics Blood Pressure 130/78 Blood Pressure Mean 95 Blood Pressure Position Pulse Oximetry 97 99 97 Oxygen Delivery Method Sepsis Recent Fever Within 48 Hours Sepsis New/Unexplained Change in Mental Status Sepsis Action Taken by Nursing 04/26/20 21:20 04/26/20 21:30 04/26/20 21:31 Temperature Temperature Source Pulse Rate Pulse Rate from SpO2 Sensor 89 87 86 Respiratory Rate Respiratory Effort / Characteristics Blood Pressure 136/78 Blood Pressure Mean 97 Blood Pressure Position Pulse Oximetry 97 97 96 Oxygen Delivery Method Sepsis Recent Fever Within 48 Hours Sepsis New/Unexplained Change in Mental Status Sepsis Action Taken by Nursing 04/26/20 21:40 04/26/20 21:50 04/26/20 22:00 Temperature Temperature Source Pulse Rate Pulse Rate from SpO2 Sensor 82 93 H 97 H Respiratory Rate Respiratory Effort / Characteristics Blood Pressure 118/82 Blood Pressure Mean 94 Blood Pressure Position Pulse Oximetry 97 95 99 Oxygen Delivery Method Sepsis Recent Fever Within 48 Hours Sepsis New/Unexplained Change in Mental Status Sepsis Action Taken by Nursing 04/26/20 22:11 04/26/20 22:20 04/26/20 22:30 Temperature Temperature Source Pulse Rate Pulse Rate from SpO2 Sensor 89 84 Respiratory Rate Respiratory Effort / Characteristics Blood Pressure 128/88 Blood Pressure Mean 101 Blood Pressure Position Pulse Oximetry 97 97 Oxygen Delivery Method Sepsis Recent Fever Within 48 Hours Sepsis New/Unexplained Change in Mental Status Sepsis Action Taken by Nursing 04/26/20 22:32 04/26/20 23:00 04/26/20 23:30 Temperature Temperature Source Pulse Rate Pulse Rate from SpO2 Sensor 85 85 96 H Respiratory Rate 20 20 Respiratory Effort / Characteristics Blood Pressure 135/59 L 136/80 Blood Pressure Mean 84 98 Blood Pressure Position Pulse Oximetry 97 97 97 Oxygen Delivery Method Sepsis Recent Fever Within 48 Hours Sepsis New/Unexplained Change in Mental Status Sepsis Action Taken by Nursing CONSTITUTIONAL/VITAL SIGNS: Reviewed / noted above. GENERAL: Non-toxic in appearance. Generalized weakness INTEGUMENTARY: Warm, dry, and [place]. HEAD: Normocephalic. EYES: without scleral icterus or trauma. ENT/OROPHARYNX: clear and moist. LYMPHADENOPATHY/NECK: Is supple without lymphadenopathy or meningismus. RESPIRATORY: Lungs clear and equal. CARDIOVASCULAR: Regular rate and rhythm. GI/ABDOMEN: Soft and nontender. No organomegaly or pulsatile mass. No rebound or guarding. Normal bowel sounds. EXTREMITIES: Warm and well perfused. BACK: No CVA tenderness. NEUROLOGICAL: Intact without focal deficits. PSYCHIATRIC: normal affect. MUSCULOSKELETAL: Normally developed with good muscle tone. TRIAGE NURSING DOCUMENTATION REVIEWED. Course Administered Medications Loperamide HCl (Loperamide Liquid 120 Ml Bottle) 2 mg PO PRN PRN PRN Reason: Diarrhea Stop: 05/26/20 18:43 Last Admin: 04/26/20 19:23 Dose: 2 mg Documented by: [id number] Discontinued Medications Cholestyramine Resin (Cholestyramine Light 4 Gm Pkt) 4 gm PO NOW STA Stop: 04/26/20 22:50 Last Admin: 04/26/20 23:22 Dose: 4 gm Documented by: [id number] Sodium Chloride (Nss 1000ml) 1,000 mls @ 999 mls/hr IV .Q1H1M MANJINDER Stop: 04/26/20 19:45 Last Infusion: 04/26/20 20:26 Dose: 0 mls/hr Documented by: [id number] Admin: 04/26/20 19:24 Dose: 999 mls/hr Documented by: [id number] Medical Decision Making Differential Diagnosis Differential includes acute coronary syndrome, myocardial infarction, CVA, TIA, anemia, infection, pneumonia, UTI, pyelonephritis, poor nutrition, dehydration, electrolyte disturbance,hypoglycemia. Medical Records Attestation: I reviewed the patient's medical records. Home Medications Current Medication List: was personally reviewed by me Laboratory Data Attestation: I reviewed the patient's lab results. Result diagrams: 04/26/20 19:32 04/26/20 19:32 Lab Results 04/26/20 04/26/20 04/26/20 Range/Units 19:30 19:30 19:30 WBC (4.8-10.8) K/uL RBC (4.7-6.1) M/uL Hgb (14.0-18.0) g/dL Hct (42-52) % MCV (80-100) fL MCH (25-34) pg MCHC (32-36) g/dL RDW Std Deviation (36.4-46.3) fL RDW Coeff of Bret (11.5-14.5) % Plt Count (130-400) K/uL MPV (7.4-10.4) fL Immature Gran % (Auto) % Neut % (Auto) % Lymph % (Auto) % [place] % (Auto) % Eos % (Auto) % Baso % (Auto) % Neut # (Auto) (1.4-6.5) K/uL Lymph # (Auto) (1.2-3.4) K/uL [place] # (Auto) (0.11-0.59) K/uL Eos # (Auto) (0-0.5) K/uL Baso # (Auto) (0-0.2) K/uL Immature Gran # (Auto) (0.00-0.02) K/uL Sodium (136-145) mmol/L Potassium (3.5-5.1) mmol/L Chloride (98-107) mmol/L Carbon Dioxide (21-32) mmol/L Anion Gap (3-11) BUN (7-18) mg/dl Creatinine (0.6-1.4) mg/dl Est Cr Clr Drug Dosing ml/min Est GFR ( Amer) Est GFR (Non-Af Amer) BUN/Creatinine Ratio (10-20) Glucose (70-99) mg/dl Calcium (8.5-10.1) mg/dl Magnesium (1.8-2.4) mg/dl Total Bilirubin (0.2-1) mg/dl AST (15-37) U/L ALT (12-78) U/L Alkaline Phosphatase (45-117) U/L Total Creatine Kinase (39-308) U/L Troponin I (0-0.045) ng/ml Total Protein (6.4-8.2) gm/dl Albumin (3.4-5.0) gm/dl Globulin (2.5-4.0) gm/dl Albumin/Globulin Ratio (0.9-2) Urine Color Urine Appearance (Clear) Urine pH (4.5-7.5) Ur Specific [place] (1.000-1.030) Urine Protein (Negative) Urine Glucose (UA) (Negative) Urine Ketones (Negative) Urine Blood (Negative) Urine Nitrite (Negative) Urine Bilirubin (Negative) Urine Urobilinogen (Negative) Ur Leukocyte Esterase (Negative) Stl C. diff Tox B Gene Negative Cdiff Gene (Neg) COVID-19 Eval Order Covid19 IDNow atMVTC SARS-CoV-2, RNA, NAAT NEGATIVE (NEGATIVE) 04/26/20 04/26/20 04/26/20 Range/Units 19:32 19:32 22:55 WBC 10.66 (4.8-10.8) K/uL RBC 4.28 L (4.7-6.1) M/uL Hgb 14.1 (14.0-18.0) g/dL Hct 41.3 L (42-52) % MCV 96.5 (80-100) fL MCH 32.9 (25-34) pg MCHC 34.1 (32-36) g/dL RDW Std Deviation 44.7 (36.4-46.3) fL RDW Coeff of Bret 12.8 (11.5-14.5) % Plt Count 248 (130-400) K/uL MPV 10.0 (7.4-10.4) fL Immature Gran % (Auto) 0.5 % Neut % (Auto) 80.1 % Lymph % (Auto) 9.4 % [place] % (Auto) 9.3 % Eos % (Auto) 0.5 % Baso % (Auto) 0.2 % Neut # (Auto) 8.55 H (1.4-6.5) K/uL Lymph # (Auto) 1.00 L (1.2-3.4) K/uL [place] # (Auto) 0.99 H (0.11-0.59) K/uL Eos # (Auto) 0.05 (0-0.5) K/uL Baso # (Auto) 0.02 (0-0.2) K/uL Immature Gran # (Auto) 0.05 H (0.00-0.02) K/uL Sodium 143 (136-145) mmol/L Potassium 3.9 (3.5-5.1) mmol/L Chloride 113 H (98-107) mmol/L Carbon Dioxide 26 (21-32) mmol/L Anion Gap 4.0 (3-11) BUN 13 (7-18) mg/dl Creatinine 1.16 (0.6-1.4) mg/dl Est Cr Clr Drug Dosing 79.5 ml/min Est GFR ( Amer) 87.0 Est GFR (Non-Af Amer) 75.1 BUN/Creatinine Ratio 11.0 (10-20) Glucose 84 (70-99) mg/dl Calcium 9.7 (8.5-10.1) mg/dl Magnesium 2.3 (1.8-2.4) mg/dl Total Bilirubin 0.4 (0.2-1) mg/dl AST 17 (15-37) U/L ALT 47 (12-78) U/L Alkaline Phosphatase 64 (45-117) U/L Total Creatine Kinase 124 (39-308) U/L Troponin I < 0.015 (0-0.045) ng/ml Total Protein 6.9 (6.4-8.2) gm/dl Albumin 3.6 (3.4-5.0) gm/dl Globulin 3.3 (2.5-4.0) gm/dl Albumin/Globulin Ratio 1.1 (0.9-2) Urine Color Yellow Urine Appearance Clear (Clear) Urine pH 8.0 H (4.5-7.5) Ur Specific [place] 1.015 (1.000-1.030) Urine Protein Negative (Negative) Urine Glucose (UA) Negative (Negative) Urine Ketones 2+ H (Negative) Urine Blood Negative (Negative) Urine Nitrite Negative (Negative) Urine Bilirubin Negative (Negative) Urine Urobilinogen Negative (Negative) Ur Leukocyte Esterase Negative (Negative) Stl C. diff Tox B Gene (Neg) COVID-19 Eval Order SARS-CoV-2, RNA, NAAT (NEGATIVE) Imaging Data Radiologist's Impression: SINGLE VIEW CHEST CLINICAL HISTORY: Generalized weakness. FINDINGS: An AP, portable, upright chest radiograph is compared to study dated 07/21/2018. The examination is mildly degraded by portable technique and patient rotation. The cardiomediastinal silhouette is unremarkable. The lungs and pleural spaces are clear. No pneumothorax is seen. The bony thorax is grossly intact. IMPRESSION: No active disease in the chest. ECG Data Attestation: I personally reviewed and interpreted this ECG as follows: Indication: + weakness Rate (beats per minute): 82 Rhythm: + normal sinus ECG Intervals/blocks: + Normal QT-c ECG ST segments: no ST elevation ECG Findings: no PVCs MDM Narrative Patient presents with generalized weakness and diarrhea that started at 3 AM today. Details listed above. His exam reveals generalized weakness. He is chronically disabled with MS and cannot move his left side very well. He is chronically wheelchair-bound but can do transfers. The patient's laboratory studies did not show any concerning abnormalities. EKG shows a normal sinus rhythm. His chest x-ray was clear. Covid test was negative. Urine showed 2+ ketones. C. difficile was negative. The patient was given some IV fluids. He was given p.o. loperamide. The patient feels too weak to go home. He has had several episodes of diarrhea here. He will be seen by the hospitalist for further evaluation and care. Impression & Plan Diarrhea, Generalized muscle weakness Discharge Plan Visit Data Chief Complaint: Illness Stated Complaint: UNABLE TO AMBULATE ED Provider: Eric Morin Discharge Problem: Diarrhea, Generalized muscle weakness Patient Disposition: Being Evaluated by Hospitalist Forms Stand Alone Forms: My [facility], Virtual Emergency Department, Important Visit Information Prescriptions Prescriptions: No Action acetaminophen [Tylenol Extra Strength] 500 mg Tablet 1,000 mg PO Q6H PRN (Reason: Pain) RF: 0 Referrals Referrals: PCP,NO [Primary Care Provider] -
--- NOTE | 2020-04-26 19:37 | XRay Report ---
SINGLE VIEW CHEST CLINICAL HISTORY: Generalized weakness. FINDINGS: An AP, portable, upright chest radiograph is compared to study dated 07/21/2018. The examina tion is mildly degraded by portable technique and patient rotation. The cardiomediastinal silhouette is unremarkable. The lungs and pleural spaces are clear. No pneumothorax is seen. The bony thorax is grossly intact. IMPRESSION: No active disease in the chest. ACT 112: Negative or not required by law. Electronically signed by: Eris Guallpa M.D. 04/26/2020 7:35 PM
[2020-04-26 19:50] LABS: Basophils # (auto) 0.02 K/uL (0-0.2); Basophils % (auto) 0.2 %; Eosinophils # (auto) 0.05 K/uL (0-0.5); Eosinophils % (auto) 0.5 %; Hematocrit (blood only) 41.3 % (42-52); Hemoglobin 14.1 g/dL (14.0-18.0); Immature Granulocytes # (auto) 0.05 K/uL (0.00-0.02); Immature Granulocytes % (auto) 0.5 %; Lymphocytes % (auto) 9.4 %; Mean Corpuscular Hemoglobin 32.9 pg (25-34); Mean Corpuscular Hgb Conc 34.1 g/dL (32-36); Mean Corpuscular Volume 96.5 fL (80-100); Monocytes # (auto) 0.99 K/uL (0.11-0.59); Monocytes % (auto) 9.3 %; Neutrophils # (auto) 8.55 K/uL (1.4-6.5); Neutrophils % (auto) 80.1 %; Platelet Count 248 K/uL (130-400); RDW Coefficient of Variation 12.8 % (11.5-14.5); RDW Standard Deviation 44.7 fL (36.4-46.3); Red Blood Count 4.28 M/uL (4.7-6.1); White Blood Count 10.66 K/uL (4.8-10.8)
[2020-04-26 20:17] LABS: Alanine Aminotransferase 47 U/L (12-78); Albumin Level 3.6 gm/dl (3.4-5.0); Blood Urea Nitrogen 13 mg/dl (7-18); Calcium 9.7 mg/dl (8.5-10.1); Carbon Dioxide 26 mmol/L (21-32); Chloride 113 mmol/L (98-107); Creatinine Clr Calc Pharmacy 79.5 ml/min; Est GFR (Non-African American) 75.1; Glucose 84 mg/dl (70-99); Sodium 143 mmol/L (136-145)
[2020-04-26 20:24] LABS: Albumin Globulin Ratio 1.1 (0.9-2); Alkaline Phosphatase 64 U/L (45-117); Bilirubin,Total 0.4 mg/dl (0.2-1); Globulin 3.3 gm/dl (2.5-4.0); Total Protein 6.9 gm/dl (6.4-8.2); Troponin I < 0.015 ng/ml (0-0.045)
[2020-04-26 20:39] LABS: Aspartate Aminotransferase 17 U/L (15-37); Magnesium 2.3 mg/dl (1.8-2.4); Potassium 3.9 mmol/L (3.5-5.1)
[2020-04-26 21:01] LABS: Creatine Kinase 124 U/L (39-308)
[2020-04-26] MEDS ORDERED: CHOLESTYRAMINE LIGHT 4 GM PKT PO STA (22:49)
--- NOTE | 2020-04-26 22:50 | History & Physical Report ---
Date of Service April 26, 2020 Assessment & Plan (1) Diarrhea: Stool negative for C. difficile. Stool culture pending. Was given loperamide by the ED. Give cholestyramine 4 g p.o. x1 tonight, then twice daily NSS + KCl 20 mEq at 60 mils per hour Present on Admission?: Yes (2) Paresis of left lower extremity: Patient reports that this is secondary to history of MS. Patient with 2 frequent stools to be able to be placed in the CT scan or MRI unit We will try to control his diarrhea overnight, and then with try to do imaging in the a.m. Present on Admission?: Yes (3) Depression: Not presently on any treatment Present on Admission?: Yes (4) Seizure disorder: Not on any present treatment, and no timing for most recent seizure Present on Admission?: Yes (5) Multiple sclerosis: Not on any treatment for at least 1 year Present on Admission?: Yes (6) Chronic pain syndrome: Takes Tylenol as needed at home Present on Admission?: Yes History of Present Illness Chief Complaint: The patient presents to the emergency department with complaint of severe lower extremity weakness that he feels has occurred since he has been having 6-8 loose stools since 3:00 AM. Primary Care Provider: NO PCP The patient is a 44-year-old male with a past medical history including depression, seizure disorder, chronic pain syndrome, RUBI, encephalopathy, multiple sclerosis, left lower extremity paresis, hypercalcemia, kidney stone and hypokalemia. The patient reports that he feels generally weak in his lower extremities since his head simply loose stools today. He is chronically not able to move his left lower extremity, but is able to move his right lower extremity while in exam room, but then reports that he has decreased sensation on that side. His history of multiple sclerosis involves treatments at the medical treatment unit by a [facility] neurologist that stopped last year for unknown reasons. The patient has not had a PCP in several years. He does live at home with family. He reports he is too weak to be able to go home and take care of himself. Allergies Allergy/AdvReac Type Severity Reaction Status Date / Time No Known Allergies Allergy Verified 04/26/20 20:27 Home Medications Medication Instructions Recorded Confirmed Type acetaminophen [Tylenol Extra 1,000 mg PO Q6H PRN 04/26/20 04/26/20 History Strength] Past Med/Surg History Medical History (Updated 04/26/20 @ 23:59 by Fer Cloud MD) Hypercalcemia Hyperparathyroidism Multiple sclerosis Obstructive uropathy 2/2 renal stone, caused RUBI, pt admitted for this and hypercalcemia 05/2018 Seizure disorder Many years ago may have had single episode, pt was never treated for this, no reoccurrence. Surgical History History of cystoscopy WITH STENT PLACEMENT 06/14/18 [facility] Family History Other Hypertension Kidney stones Social History Smoking Status: Never smoker Cigarettes Per Day: 0; Second Hand Exposure: No; Hx Alcohol Use: No Hx Substance Use: No Preferred Language: Croatian Communication Ability: Effective Supervisor Beam Department Required: No Beliefs That Will Affect Care: None Current Living Situation: Family current occupational status: disabled Feels Safe at Home: Yes Assistive Devices: Cane and Wheelchair Review of Systems Review of Systems: The patient denies chest pain, palpitations, shortness of breath, dyspnea on exertion, cough, lower extremity swelling, sore throat, fevers, chills, sweats, nausea, vomiting, diarrhea , constipation, abdominal pain, pelvic pain, blood in urine or stool, dysuria, lightheadedness, dizziness, headache, memory loss, loss of consciousness, rash, abnormal bruising or bleeding, focal or generalized weakness, numbness or tingling in arms, generalized arthralgias or myalgias, back or neck pain, or night sweats. The review of systems is otherwise negative other than for that already noted above, and at least 10 systems have been reviewed. Physical Exam Physical Exam: The patient is awake, alert and oriented 3, well developed and well nourished, normocephalic and atraumatic, lying in bed and in no acute distress. HEENT--PERRL, EOMI, mucous membranes and oropharynx dry. Neck--supple. No JVD. No bruits. Thyroid normal, trachea midline, no adenopathy. Heart--normal S1 and S2. No murmurs, rubs or gallops. Lungs--clear bilaterally, no respiratory distress, no accessory muscle use. Abdomen--normal bowel sounds and soft. Nontender. Nondistended, no hernias or masses, no organomegaly. Extremities--no cyanosis or clubbing. No edema. Dermatologic--normal skin turgor, normal color, no abnormal lymph nodes, no rash. Neurologic--cranial nerves II through XII grossly intact. Upper extremity exam normal bilaterally for sensation and motor. Left lower extremity paretic. Right lower extremity with normal movement and sensation Rheumatologic--limited range of motion Psychiatric--normal affect. Results & Data Results & Data ([facility]) Vital Signs (Past 12 Hours) Vital Signs Temp Pulse Resp BP Pulse Ox 04/26/20 22:32 97 04/26/20 22:30 128/88 04/26/20 22:20 97 04/26/20 22:11 97 04/26/20 22:00 118/82 99 04/26/20 21:50 95 04/26/20 21:40 97 04/26/20 21:31 136/78 96 04/26/20 21:30 97 04/26/20 21:20 97 04/26/20 21:10 82 19 97 04/26/20 21:00 83 20 130/78 99 04/26/20 20:50 79 15 97 04/26/20 20:40 83 19 98 04/26/20 20:35 85 24 135/79 99 04/26/20 20:30 84 16 98 04/26/20 20:20 89 19 99 04/26/20 20:10 85 17 99 04/26/20 20:00 82 16 99 04/26/20 19:50 82 17 99 04/26/20 19:40 81 17 99 04/26/20 19:30 88 15 99 04/26/20 19:20 82 21 99 04/26/20 19:10 82 19 98 04/26/20 19:00 82 16 99 04/26/20 18:50 83 15 99 04/26/20 18:43 83 20 97 04/26/20 18:40 86 13 99 04/26/20 18:36 84 14 99 04/26/20 18:35 98.1 F 89 18 147/81 H 98 04/26/20 18:32 81 16 136/88 98 Laboratory Results Laboratory Results WBC 10.66 K/uL (4.8-10.8) 04/26/20: RBC 4.28 M/uL (4.7-6.1) L 04/26/20: Hgb 14.1 g/dL (14.0-18.0) 04/26/20 19: Hct 41.3 % (42-52) L 04/26/20: MCV 96.5 fL (80-100) 04/26/20: MCH 32.9 pg (25-34) 04/26/20: MCHC 34.1 g/dL (32-36) 04/26/20: RDW Std Deviation 44.7 fL (36.4-46.3) 04/26/20: RDW Coeff of Bret 12.8 % (11.5-14.5) 04/26/20: Plt Count 248 K/uL (130-400) 04/26/20: MPV 10.0 fL (7.4-10.4) 04/26/20: Immature Gran % (Auto) 0.5 % 04/26/20: Neut % (Auto) 80.1 % 04/26/20: Lymph % (Auto) 9.4 % 04/26/20: [place] % (Auto) 9.3 % 04/26/20: Eos % (Auto) 0.5 % 04/26/20: Baso % (Auto) 0.2 % 04/26/20: Neut # (Auto) 8.55 K/uL (1.4-6.5) H 04/26/20: Lymph # (Auto) 1.00 K/uL (1.2-3.4) L 04/26/20: [place] # (Auto) 0.99 K/uL (0.11-0.59) H 04/26/20: Eos # (Auto) 0.05 K/uL (0-0.5) 04/26/20: Baso # (Auto) 0.02 K/uL (0-0.2) 04/26/20: Immature Gran # (Auto) 0.05 K/uL (0.00-0.02) H 04/26/20 19:32 Sodium 143 mmol/L (136-145) 04/26/20 19:32 Potassium 3.9 mmol/L (3.5-5.1) 04/26/20 19: Chloride 113 mmol/L (98-107) H 04/26/20 19:32 Carbon Dioxide 26 mmol/L (21-32) 04/26/20: Anion Gap 4.0 (3-11) 04/26/20 19:32 BUN 13 mg/dl (7-18) 04/26/20 19:32 Creatinine 1.16 mg/dl (0.6-1.4) 04/26/20 19:32 Est Cr Clr Drug Dosing 79.5 ml/min 04/26/20 19:32 Est GFR ( Amer) 87.0 04/26/20 19:32 Est GFR (Non-Af Amer) 75.1 04/26/20 19:32 BUN/Creatinine Ratio 11.0 (10-20) 04/26/20 19:32 Glucose 84 mg/dl (70-99) 04/26/20 19:32 Calcium 9.7 mg/dl (8.5-10.1) 04/26/20 19: Magnesium 2.3 mg/dl (1.8-2.4) 04/26/20 19:32 Total Bilirubin 0.4 mg/dl (0.2-1) 04/26/20 19:32 AST 17 U/L (15-37) 04/26/20:32 ALT 47 U/L (12-78) 04/26/20 19:32 Alkaline Phosphatase 64 U/L (45-117) 04/26/20 19:32 Total Creatine Kinase 124 U/L (39-308) 04/26/20 19:32 Troponin I < 0.015 ng/ml (0-0.045) 04/26/20 19:32 Total Protein 6.9 gm/dl (6.4-8.2) 04/26/20 19:32 Albumin 3.6 gm/dl (3.4-5.0) 04/26/20 19:32 Globulin 3.3 gm/dl (2.5-4.0) 04/26/20 19:32 Albumin/Globulin Ratio 1.1 (0.9-2) 04/26/20 19:32 Urine Color Yellow 04/26/20 22:55 Urine Appearance Clear (Clear) 04/26/20 22:55 Urine pH 8.0 (4.5-7.5) H 04/26/20 22:55 Ur Specific [place] 1.015 (1.000-1.030) 04/26/20 22:55 Urine Protein Negative (Negative) 04/26/20 22:55 Urine Glucose (UA) Negative (Negative) 04/26/20 22:55 Urine Ketones 2+ (Negative) H 04/26/20 22:55 Urine Blood Negative (Negative) 04/26/20 22:55 Urine Nitrite Negative (Negative) 04/26/20 22:55 Urine Bilirubin Negative (Negative) 04/26/20 22:55 Urine Urobilinogen Negative (Negative) 04/26/20 22:55 Ur Leukocyte Esterase Negative (Negative) 04/26/20 22:55 Stl C. diff Tox B Gene Negative Cdiff Gene (Neg) 04/26/20 19:30 COVID-19 Eval Order Covid19 IDNow [facility] 04/26/20 19:30 SARS-CoV-2, RNA, NAAT NEGATIVE (NEGATIVE) 04/26/20 19:30 Diagnostic Findings [facility], [id number] XRay Report Patient: JAD DICKINSON [facility] Date: 04/26/20MR#: [id number]: [address]Acct ID:[id number]: Date: 1975[facility] Zip: [place], [place] [address]Zkc: 44Location: EDSex: MRoom/Bed:Att Phy:Diagnosis: UNABLE TO AMBULATEPri Phy: PCP,NOService Date: 04/26/20Fa Phy:Interpreting Phy: Eris Guallpa [facility] Phy: Ordering Phy: Eric Morin D.O. cc: ~ SINGLE VIEW CHEST CLINICAL HISTORY: Generalized weakness. FINDINGS: An AP, portable, upright chest radiograph is compared to study dated 07/21/2018. The examination is mildly degraded by portable technique and patient rotation. The cardiomediastinal silhouette is unremarkable. The lungs and pleural spaces are clear. No pneumothorax is seen. The bony thorax is grossly intact. IMPRESSION: No active disease in the chest. ACT 112: Negative or not required by law. Electronically signed by: Eris Guallpa M.D. 04/26/2020 7:35 PM Dictated: 04/26/201934Transcribed: 04/26/201934 Code Status & VTE Plan Code Status Full code VTE Prophylaxis Plan VTE Prophylaxis will be ordered: Yes PG Care Time/CCT Total # of Minutes Spent Total Time Spent with Patient: Total time spent is greater than 50% in coordination of care (as documented) at patient's floor/unit and/or counseling patient: Coding Level of Care Code 09115 OBS Care - Level 3 Diagnoses Diarrhea R19.7 Diarrhea type: unspecified type Paresis of left lower extremity G83.14 Depression F32.9 Seizure disorder G40.909 Multiple sclerosis G35 Chronic pain syndrome G89.4 (1) Diarrhea Diarrhea type: unspecified type Qualified Code(s): R19.7 - Diarrhea, unspecified
[2020-04-26 23:08] LABS: Appearance Urine Clear (Clear); Bilirubin Urine Negative (Negative); Blood Urine Negative (Negative); Color Urine Yellow; Glucose Urine UA Negative (Negative); Ketones Urine 2+ (Negative); Leukocyte Esterase Urine Negative (Negative); Nitrite Urine Negative (Negative); Protein Urine Negative (Negative); Specific Gravity Urine 1.015 (1.000-1.030); Urobilinogen Urine Negative (Negative)
[2020-04-27] MEDS ORDERED: ONDANSETRON INJ 2 MG/ML 2 ML VIAL IV PRN (00:37)
[2020-04-27] MEDS ORDERED: INFLUENZA ADMINISTRATION CHARGE ONE (01:02)
[2020-04-27] MEDS ORDERED: INFLUENZA VIRUS QUAD VACCINE 0.5 ML SYR IM ONE (01:02)
[2020-04-27] MEDS: NSS + 20MEQ KCL 20 MEQ/1,000 ML BAG IV SCH ×2 (02:02→18:14)
[2020-04-27] MEDS: HEPARIN SOD 5,000 UNIT/0.5 ML VIAL SQ SCH ×3 (05:50→23:13)
[2020-04-27 06:17] LABS: Basophils # (auto) 0.02 K/uL (0-0.2); Basophils % (auto) 0.2 %; Eosinophils # (auto) 0.07 K/uL (0-0.5); Eosinophils % (auto) 0.9 %; Hematocrit (blood only) 38.9 % (42-52); Immature Granulocytes # (auto) 0.03 K/uL (0.00-0.02); Immature Granulocytes % (auto) 0.4 %; Lymphocytes # (auto) 1.07 K/uL (1.2-3.4); Lymphocytes % (auto) 13.2 %; Mean Corpuscular Hemoglobin 32.4 pg (25-34); Mean Corpuscular Hgb Conc 33.4 g/dL (32-36); Mean Platelet Volume 10.1 fL (7.4-10.4); Monocytes # (auto) 0.77 K/uL (0.11-0.59); Monocytes % (auto) 9.5 %; Neutrophils # (auto) 6.16 K/uL (1.4-6.5); Neutrophils % (auto) 75.8 %; Platelet Count 220 K/uL (130-400); RDW Coefficient of Variation 12.9 % (11.5-14.5); RDW Standard Deviation 45.9 fL (36.4-46.3); Red Blood Count 4.01 M/uL (4.7-6.1); White Blood Count 8.12 K/uL (4.8-10.8)
[2020-04-27 07:16] LABS: Albumin Level 3.1 gm/dl (3.4-5.0); BUN Creatinine Ratio 10.3 (10-20); Calcium 8.9 mg/dl (8.5-10.1); Creatinine Clr Calc Pharmacy 95.5 ml/min; Est GFR (African American) 113.7; Est GFR (Non-African American) 98.1; Magnesium 2.4 mg/dl (1.8-2.4); Potassium 3.9 mmol/L (3.5-5.1)
[2020-04-27 07:19] LABS: Albumin Globulin Ratio 1.1 (0.9-2); Bilirubin,Total 0.6 mg/dl (0.2-1); Globulin 2.8 gm/dl (2.5-4.0); Total Protein 5.9 gm/dl (6.4-8.2)
[2020-04-27] MEDS: CHOLESTYRAMINE LIGHT 4 GM PKT PO SCH ×2 (11:00→23:13)
--- NOTE | 2020-04-27 11:31 | Hospitalist Progress Note ---
Date of Service April 27, 2020 Assessment & Plan (1) Multiple sclerosis exacerbation: -Hospital day 2 -Patient with history of MS, previously receiving Ocrevus injections however has been lost to follow-up and has not received an injection since 2019 -Given increased weakness, will treat as MS flare -Discussed with neurology, Rachel Rincon PA-C - start Solu-Medrol 1 g IV daily x 3 days with taper to follow -will need follow-up with neurology after discharge -PT/OT (2) Diarrhea: -Resolved -C. difficile testing negative, awaiting stool culture -No further work-up at this time (3) Hyperparathyroidism: -History of hypercalcemia and hyperparathyroidism, was previously scheduled for parathyroidectomy however was lost to follow-up -Ca+ currently WNL -Outpatient follow-up with ENT/endocrine (4) DVT prophylaxis: -SQ heparin (5) Discharge planning issues: -Patient has been lost to follow-up with neurology and ENT -Needs to be established with PCP Admission and Anticipated Discharge Date Admission Date: April 26, 2020 Supervising Physician Co-Signing Physician Notes Pt was seen and examined. Agreed with Margaret REYEZ exam, assessment and plan. Neniat ng in bed with no distress. He said that he has not had any diarrhea since last night. He said that he continues to feel weak. He has not been followed with neuro since 2019 to arrange for the Ocrevus injection for the MS. He has not seen a PCP for years. His weakness seems to related with MS exacerbation. Neuro was consulted. case discussed with neurology team that recommended to start on IV solumedrol 1g daily x 3 days, then to taper with oral steroids 80 mg x 3 days, 60 mg x 3 days, 40 mg x 3 days, 30 mg x 3 days, 20 mg x 3 days then 10 mg x 3 days. Will get a MRI brain, C-spine, T- spine with and without contrast and CPK level as per neuro. Pt will need to follow with neuro in 4-6 weeks. He will need to follow as well wit endocrinology for his hyperparathyroid and with ENT to arrange for the parathyroidectomy. Continue PT/OT. fall precaution. Will continue monitor closely. MD Haley Subjective Patient seen and examined. Resting in bed, no acute distress. Reports no further episodes of diarrhea overnight. Poor appetite however tolerated some breakfast. Denies nausea, vomiting, abdominal pain. Chronic left hemiparesis from MS unchanged from baseline, increased RLE weakness continues. No chest pain or shortness of breath. Urinating without difficulty. Physical Exam Constitutional: WD/WN, vitals as above resting in bed, no acute distress Respiratory: normal respiratory effort, lungs clear to auscultation Cardiovascular: Rate/Rhythm: regular rate and regular rhythm Vessels: normal peripheral pulses Extremities: no edema Gastrointestinal (Abdomen): Inspection/Auscultation: normal bowel sounds Percussion/Palpation: abdomen soft; abdomen nontender Musculoskeletal: chronic left hemiparesis (strength 0/5 left leg, 3-4/5 left arm); right leg weakness strength 4/5 Psychiatric: Orientation: alert and oriented x 3 Results & Data Results & Data ([facility]) Vital Signs (Past 12 Hours) Vital Signs Temp Pulse Resp BP BP Pulse Ox 04/27/20 07:14 36.6 C 76 18 120/77 96 04/27/20 00:37 36.7 C 82 16 146/90 H 97 04/27/20 00:00 20 130/81 97 04/26/20 23:30 20 136/80 97 Laboratory Results Short CBC 04/26/20 04/27/20 Range/Units 19:32 05:38 WBC 10.66 8.12 (4.8-10.8) K/uL Hgb 14.1 13.0 L (14.0-18.0) g/dL Hct 41.3 L 38.9 L (42-52) % Plt Count 248 220 (130-400) K/uL BMP 04/26/20 04/27/20 19:32 05:38 Sodium 143 144 Potassium 3.9 3.9 Chloride 113 H 115 H Carbon Dioxide 26 22 BUN 13 10 Creatinine 1.16 0.93 Glucose 84 97 Calcium 9.7 8.9 Cardiac Enzymes 04/26/20 Range/Units 19:32 Total Creatine Kinase 124 (39-308) U/L Troponin I < 0.015 (0-0.045) ng/ml Liver Function 04/26/20 04/27/20 Range/Units 19:32 05:38 Total Bilirubin 0.4 0.6 (0.2-1) mg/dl AST 17 15 (15-37) U/L ALT 47 39 (12-78) U/L Alkaline Phosphatase 64 58 (45-117) U/L Albumin 3.6 3.1 L (3.4-5.0) gm/dl Urine 04/26/20 Range/Units 22:55 Urine Color Yellow Urine Appearance Clear (Clear) Urine pH 8.0 H (4.5-7.5) Ur Specific [place] 1.015 (1.000-1.030) Urine Protein Negative (Negative) Urine Glucose (UA) Negative (Negative) (1) Diarrhea Diarrhea type: unspecified type Qualified Code(s): R19.7 - Diarrhea, unspecified
[2020-04-27] MEDS: methylPREDNISolone 1,000 MG in DEXTROSE 5% 250 ML IV SCH (11:34)
--- NOTE | 2020-04-27 14:04 | Electrocardiogram Report ---
Test Reason : Blood Pressure : / mmHG Vent. Rate : 082 BPM Atrial Rate : 082 BPM P-R Int : 152 ms QRS Dur : 094 ms QT Int : 358 ms P-R-T Axes : 052 025 035 degrees QTc Int : 418 ms Normal sinus rhythm Incomplete right bundle branch block Borderline ECG When compared with ECG of 11-JUN-2018 21:12, Sinus rhythm is no longer with sinus pause Confirmed by Law Recinos ([id number]) on 04/27/2020 2:04:13 PM Referred By: REFERRED SELF Confirmed By:Camilo Recinos
--- NOTE | 2020-04-27 14:15 | Neurology Consultation ---
Date of Consultation April 27, 2020 Assessment & Plan (1) Multiple sclerosis exacerbation: 1. IV steroids 1 g daily x 3 days then taper with oral steroids 80 mg x 3 days, 60 mg x 3 days, 40 mg x 3 days, 30 mg x 3 days, 20 mg x 3 days then 10 mg x 3 days. 2. PT/OT for discharge needs 3. discussion for next disease modifying drug to use 4. depression needs to be addressed 5. MRIs brain, c spine, t spine - evaluate for further plaques 6. will need to return to neurology in 4-6 weeks after discharge or by video to discuss course of treatment. Present on Admission?: Yes (2) Diarrhea: 1. treat symptomatically Present on Admission?: Yes (3) Seizure disorder: 1. not on any current treatment - denies any break through seizure after 1 seizure many years ago Present on Admission?: Yes Supervising Physician Co-Signing Physician Notes Patient was seen and examined. I agree with Rachel Rincon PA-C as noted below. Mr. Ramirez is a 44 yo M with sadly significant disability due to multiple sclerosis. He is currently no longer on Ocrevus due to non compliance. He was admitted due to increased weakness in the setting of diarrhea. Differential diagnosis includes MS exacerbation Vs pseudo-exacerbation due to gastroenteritis / dehydration. On examine patient has left hemiparesis with spasticity which is chronic. Knee jerks are brisk and has a a few beats of ankle clonus. Has high arched feet. Sensation reduced on the left leg compared to right. No ataxia with finger to nose. Speech is clear. Agree with IVF and starting steroids for presumed MS exacerbation Vs progression. Would recommend MRI brain, cervical, and thoracic spine imaging with and without contrast. Neurology will continue to follow. History of Present Illness Reason for Consultation: MS flare Requesting Physician: Janice De Leon MD Attending Physician: Janice De Leon MD History of Present Illness Mazin is a 44 year old male with a PMH- depression, seizure disorder, chronic pain syndrome, RUBI, encephalopathy, MS, left sided paresis, hypercalcemia, kidney stone and hypokalemia. He has been feeling generally weak in his lower extremities when he started having loose bowels. He is chronically not able to move his left lower extremity, but is able to move his right lower extremity while in exam room, but then reports that he has decreased sensation on that side. He is know to our [facility] neurology group and was diagnosed in [address] Talley. He was on Ocrevus the last time we saw him in the office in 2019 but states he got frustrated with the infusion process and stopped going. He was homeless for a period of time but now lives at home with dad and brother. He reports he is too weak to be able to go home and take care of himself. he is basically wheelchair dependent He has had flairs of his MS in the past but not like this one. denies CP, SOB, abdominal pain, +chronic left sided weakness. Allergies Allergy/AdvReac Type Severity Reaction Status Date / Time No Known Allergies Allergy Verified 04/26/20 20:27 Home Medications Medication Instructions Recorded Confirmed Type acetaminophen [Tylenol Extra 1,000 mg PO Q6H PRN 04/26/20 04/26/20 History Strength] Patient History Medical History (Updated 04/27/20 @ 11:48 by AISSATOU Rodriguez) Chronic pain syndrome Depression Hypercalcemia Hyperparathyroidism Multiple sclerosis Obstructive uropathy 2/ renal stone, caused RUBI, pt admitted for this and hypercalcemia 05/2018 Seizure disorder Many years ago may have had single episode, pt was never treated for this, no reoccurrence. Surgical History History of cystoscopy WITH STENT PLACEMENT 06/14/18 [facility] Family History Other Hypertension Kidney stones Social History Smoking Status: Never smoker Cigarettes Per Day: 0; Second Hand Exposure: No; Hx Alcohol Use: Yes Alcohol type: beer Hx Substance Use: Yes Last Used Substance: Just Prior to Arrival Preferred Language: Tristanian Communication Ability: Effective Paper Final Inspector Required: No Beliefs That Will Affect Care: None Current Living Situation: Parent and Family current occupational status: disabled Other Information That Helps Us Care for You: No Feels Safe at Home: Yes Safety Concerns: Feels Safe At This Time Assistive Devices: Wheelchair Review of Systems Review of Systems: All systems reviewed & are unremarkable except as noted in HPI & below Physical Exam Physical Exam: Physical Exam: Constitutional: nourished, ill appearing Ears, Nose, Mouth and Throat: mucous membranes moist, no injection and skin normal, eyes normal Cardiovascular: normal S-1 and S-2 and regular rate and rhythm Respiratory: clear to auscultation (CTA) and no rales, ronchi or wheeze Musculoskeletal: no peripheral edema Skin: no stigmata of neurocutaneous disease noted and normal and intact Eyes: extraocular muscles intact (EOMI) and pupils equal, round and reactive to light (PERRL), nystagmus bilaterally L>R NEUROLOGIC EXAMINATION: Mental status: Alert and interactive Oriented to full date and location Oriented to person Speech fluent with no evidence of aphasia Cranial Nerves smile eye brow raise symmetric Reflexes: Deep tendon reflexes were Sensory: decreased sensation LLE with light cool touch Coordination: finger to nose unable on left Gait/Stance: Posture sitting in bed Motor: unable to lift left arm. Strength: hand loan auditor biceps triceps deltoid right 5/5, left hand loan auditor 4+/5, biceps triceps 3/5, deltoid 2/5 hip flex right 5/5, left 0/5, plantar flex ext right 5/5, left 0/5 Results & Data ([facility]) Vital Signs (Past 12 Hours) Vital Signs Temp Pulse Resp BP Pulse Ox 04/27/20 07:14 36.6 C 76 18 120/77 96 Laboratory Results Abnormal lab results 04/26/20 04/26/20 04/26/20 Range/Units 19:32 19:32 22:55 RBC 4.28 L (4.7-6.1) M/uL Hgb (14.0-18.0) g/dL Hct 41.3 L (42-52) % Neut # (Auto) 8.55 H (1.4-6.5) K/uL Lymph # (Auto) 1.00 L (1.2-3.4) K/uL [place] # (Auto) 0.99 H (0.11-0.59) K/uL Immature Gran # (Auto) 0.05 H (0.00-0.02) K/uL Chloride 113 H (98-107) mmol/L Total Protein (6.4-8.2) gm/dl Albumin (3.4-5.0) gm/dl Urine pH 8.0 H (4.5-7.5) Urine Ketones 2+ H (Negative) 04/27/20 04/27/20 Range/Units 05:38 05:38 RBC 4.01 L (4.7-6.1) M/uL Hgb 13.0 L (14.0-18.0) g/dL Hct 38.9 L (42-52) % Neut # (Auto) (1.4-6.5) K/uL Lymph # (Auto) 1.07 L (1.2-3.4) K/uL [place] # (Auto) 0.77 H (0.11-0.59) K/uL Immature Gran # (Auto) 0.03 H (0.00-0.02) K/uL Chloride 115 H (98-107) mmol/L Total Protein 5.9 L (6.4-8.2) gm/dl Albumin 3.1 L (3.4-5.0) gm/dl Urine pH (4.5-7.5) Urine Ketones (Negative) Diagnostic Findings no recent imaging (1) Diarrhea Diarrhea type: unspecified type Qualified Code(s): R19.7 - Diarrhea, unspecified
[2020-04-27] MEDS ORDERED: KETOROLAC 30 MG/ML VIAL IV ONE (21:43)
[2020-04-27] MEDS ORDERED: GADOBUTROL 65ML VIAL IV ONE (22:13)
[2020-04-27] MEDS: oxyCODONE HCL IR 5 MG TAB (IMMEDIATE RELEASE) PO PRN (22:19)
[2020-04-27] MEDS: LORazepam 0.5 MG/1 ML VIAL IV PRN (22:19)
[2020-04-28] MEDS: HEPARIN SOD 5,000 UNIT/0.5 ML VIAL SQ SCH ×3 (05:48→21:06)
[2020-04-28 07:19] LABS: Hematocrit (blood only) 39.6 % (42-52); Hemoglobin 13.5 g/dL (14.0-18.0); Immature Granulocytes # (auto) 0.04 K/uL (0.00-0.02); Immature Granulocytes % (auto) 0.3 %; Lymphocytes # (auto) 0.75 K/uL (1.2-3.4); Mean Corpuscular Hemoglobin 32.7 pg (25-34); Mean Corpuscular Hgb Conc 34.1 g/dL (32-36); Mean Corpuscular Volume 95.9 fL (80-100); Mean Platelet Volume 9.9 fL (7.4-10.4); Neutrophils # (auto) 13.01 K/uL (1.4-6.5); Neutrophils % (auto) 86.7 %; Platelet Count 254 K/uL (130-400); RDW Coefficient of Variation 12.6 % (11.5-14.5); RDW Standard Deviation 43.8 fL (36.4-46.3); Red Blood Count 4.13 M/uL (4.7-6.1)
[2020-04-28 07:56] LABS: Albumin Level 3.3 gm/dl (3.4-5.0); BUN Creatinine Ratio 15.8 (10-20); Calcium 9.5 mg/dl (8.5-10.1); Creatinine Clr Calc Pharmacy 77.9 ml/min; Est GFR (African American) 88.9; Est GFR (Non-African American) 76.7; Magnesium 2.5 mg/dl (1.8-2.4); Potassium 4.4 mmol/L (3.5-5.1)
[2020-04-28 07:58] LABS: Bilirubin,Total 0.3 mg/dl (0.2-1); Globulin 3.2 gm/dl (2.5-4.0); Total Protein 6.5 gm/dl (6.4-8.2)
--- NOTE | 2020-04-28 08:29 | Magnetic Resonance Report ---
MRI OF THE BRAIN WITH AND WITHOUT CONTRAST MULTIPLE SCLEROSIS PROTOCOL CLINICAL HISTORY: MS f/u COMPARISON STUDY: MRI of the brain June 13, 2017. TECHNIQUE: Utilizing a 1.5 Bijal magnet and dedicated coil, multiplanar, multiecho imaging of the bra in was performed pre and postcontrast administration following the multiple sclerosis protocol. Intra venous injection of 9.4 cc of Gadavist was uneventful. FINDINGS: There are no foci of restricted diffusion to suggest acute infarct. No acute intracranial h emorrhage, midline shift or mass effect is present. There is no intracranial mass or pathologic enhan cement. Extensive subcortical and periventricular white matter T2 hyperintense foci with atrophy are similar to MRI of June 13, 2017. The appearance of the brain is similar to prior exam. Basal cistern s are patent. There are no extra axial collections. Flow-voids for the major intracranial vessels are present. Calvarial signal is normal. There is no fluid within the sinuses or the mastoid air cells. Globes are intact. IMPRESSION: 1. No acute intracranial findings. 2. No significant change in extensive white matter T2 hyperintense foci since MRI of June 13, 2017 c onsistent with the history of multiple sclerosis. No new plaques. No evidence for active demyelinatio n. 3. Cerebral atrophy, similar to prior exam. ACT 112: Negative or not required by law. Electronically signed by: Vinh Varela M.D. 04/28/2020 8:28 AM
[2020-04-28] MEDS: CHOLESTYRAMINE LIGHT 4 GM PKT PO SCH ×2 (08:43→21:06)
[2020-04-28] MEDS: methylPREDNISolone 1,000 MG in DEXTROSE 5% 250 ML IV SCH (09:06)
[2020-04-28] MEDS: oxyCODONE HCL IR 5 MG TAB (IMMEDIATE RELEASE) PO PRN ×2 (10:23→19:52)
[2020-04-28] MEDS: ACETAMINOPHEN 325 MG TAB PO PRN (10:24)
[2020-04-28] MEDS: LORazepam 0.5 MG/1 ML VIAL IV PRN (10:39)
--- NOTE | 2020-04-28 10:48 | Progress Notes ---
DATE: 04/28/2020 NEUROLOGY PROGRESS NOTE A 44-year-old male. CHIEF COMPLAINT: Multiple sclerosis exacerbation. SUBJECTIVE: The patient is started on IV steroids for presumed multiple sclerosis flare. Underwent MRI cervical and brain imaging last night. No acute events overnight. OBJECTIVE: VITAL SIGNS: Blood pressure 135/79, pulse is 75, respiratory rate is 16, temperature is 36.7 degrees Celsius. GENERAL: This is a thin-appearing male, appears chronically ill. HEENT: His face is normocephalic and atraumatic. Normal eyelids, normal conjunctivae. NECK: Supple. LUNGS: Respiratory effort is normal. CARDIAC: Pulses normal. ABDOMEN: Nondistended. SKIN: No skin rash. NEUROPSYCHIATRIC: Keenan indifference. Otherwise, mood is normal. He appears in no acute distress. He is awake. He is alert and oriented to person, place and time. His attention is normal. His knowledge is normal. His comprehension is intact and he has no aphasia. Speech is clear. Pupils are symmetric. Extraocular muscles are intact. Facial sensation intact. Face is symmetric. Intact hearing. Palate is symmetric. Shoulder shrug is normal. Tongue is midline with no atrophy. Gait evaluation deferred due to chronic left-sided weakness and spasticity. Coordination: He has no ataxia with [id number] testing, no tremor. Sensation is reduced on the left leg to light touch. Muscle tone reveals that he has spasticity in the left arm and left leg. Muscle exam: Left hemiparesis, chronic. Reflexes show brisk knee jerks and positive ankle clonus. DIAGNOSTIC TESTING AND LABORATORIES: WBC 15, RBC is 4.13, hemoglobin is 13.5, platelet count 254. Sodium 142, potassium 4.4, chloride 116, carbon dioxide 19, BUN 18, creatinine 1.14, magnesium 2.5. AST is 10, ALT is 36. Urinalysis showed 2+ ketones. C. diff was negative. MRI imaging: MRI of the brain showed no acute intracranial findings. No significant change in extensive white matter T2 hyperintensities since the previous MRI in 2018. This is consistent with known history of multiple sclerosis. No new enhancing plaques. No evidence of active demyelination. There is cerebral atrophy similar to the previous exam. MRI of the cervical spine was performed with and without contrast; on my review, there is no evidence of enhancing demyelinating lesion in the cervical spine. There is evidence of T2 FLAIR signal changes in the cervical spine consistent with known history of multiple sclerosis. The final interpretation of the study is pending. MRI thoracic spine: Pending. ASSESSMENT AND PLAN: A 44-year-old male with known multiple sclerosis, previously on ocrelizumab with evidence of demyelinating lesions in the brain and cervical spine, admitted with a presumed multiple sclerosis exacerbation versus a pseudoexacerbation. Recent MRI of the brain as well as the cervical spinal cord was reviewed and shows no evidence of enhancing lesions. His diarrhea has resolved. On examination, he does have residual left-sided weakness. Recommend to continue current plan of IV Solu-Medrol 1000 mg daily for 3 days or 3 total doses. The patient will likely require acute rehabilitation. Otherwise, he can follow up with neurology as an outpatient. Of note, the MRI of the thoracic spine is still pending.
--- NOTE | 2020-04-28 11:07 | Magnetic Resonance Report ---
MRI OF THE CERVICAL SPINE COMBO CLINICAL HISTORY: Multiple sclerosis. COMPARISON STUDY: MRI of the cervical spine dated 11/12/2015. TECHNIQUE: MRI of the cervical spine is performed utilizing various T1 and T2-weighted sequences in t he axial and sagittal planes. Contrast-enhanced sequences were acquired following the IV administrati on of 9.4 cc of Gadavist. The examination is compromised by motion artifact. FINDINGS: Cervical spine: Vertebral body height and alignment are maintained throughout the cervical spine. The atlantodental articulation is preserved. Normal marrow signal intensity is maintained throughout the visualized bony structures. The spinous processes appear intact. No destructive bony lesion is seen. Intervertebral discs: There is mild degenerative disc desiccation throughout the cervical spine. The disc spaces are preserved. Spinal cord: The cervical spinal cord is normal in morphology. There are several T2 hyperintense lesi ons seen throughout the cervical cord. A 6 mm lesion is noted at the level of C2. Subtle lesions are seen at the level of C3 and at C6. These lesions are much less conspicuous as compared to the 2016 ex amination. No abnormal postcontrast enhancement is identified. C2-C3: Mild facet arthropathy is of no consequence. The central canal and neural foramina are patent. C3-C4: The central canal is clear. Uncovertebral and facet arthropathy contribute to mild left-sided neural foraminal stenosis. C4-C5: Uncovertebral and facet arthropathy contribute to mild neural foraminal stenosis. The central canal is clear. C5-C6: A posterior disc osteophyte complex eccentric to the right effaces the ventral subarachnoid sp martín. Uncovertebral and facet arthropathy contribute to moderate right and minimal left neural foramin al stenosis. C6-C7: A posterior disc osteophyte complex abuts the cord. Uncovertebral and facet arthropathy contri bute to moderate to severe left and moderate right neural foraminal stenosis. C7-T1: Unremarkable. Soft tissues: The prevertebral and paraspinous soft tissues are normal in appearance. Brain parenchyma: Small lesions are identified within the javier and the left cerebellar hemisphere, li berto related to the reported clinical history of multiple sclerosis. IMPRESSION: 1. The cervical spinal cord is normal in morphology. There are several T2 hyperintense plaques identi fied consistent with the reported clinical history of multiple sclerosis. These are significantly les s conspicuous as compared to the 11/12/2015 examination. There is no associated abnormal postcontrast enhancement. 2. Mild spondylotic change as above. 3. No destructive bony process is identified. Dictated: 04/28/2020 8:19 AM Transcribed: 04/28/2020 11:01 AM Rachel [id number] [facility] Electronically signed by: Eris Guallpa M.D. 04/28/2020 11:06 AM
[2020-04-28] MEDS ORDERED: GADOBUTROL 65ML VIAL IV ONE (12:00)
--- NOTE | 2020-04-28 12:13 | Magnetic Resonance Report ---
MRI OF THE THORACIC SPINE COMBO CLINICAL HISTORY: Multiple sclerosis. COMPARISON STUDY: MRI of the thoracic spine dated 10/01/2013. TECHNIQUE: MRI of the thoracic spine is performed using various T1 and T2-weighted sequences in the a xial and sagittal planes. Contrast-enhanced sequences are acquired following the IV administration of 9 cc of Gadavist. FINDINGS: There are numerous chronic compression deformities seen throughout the thoracic spine. Thes e involve T2, T3, T4, T5, T6, T7, T8, and T10. The majority of these were also present in 2014. There is no marrow edema to suggest acuity. Superior endplate sclerosis is noted involving T2 and T10. No retropulsed fragments are identified. The transverse and spinous processes appear intact. No destruct navi bony lesion is identified. A large Schmorl's node is seen in the superior endplate of T7. Degener ative disc desiccation and mild loss of height are seen throughout the thoracic spine. There is no di sc herniation or central canal stenosis. There is no evidence of high-grade neural foraminal stenosis throughout the thoracic spine. There is thinning of the thoracic cord seen at the level of T6. There are numerous subtle T2 hyperintense foci seen throughout the thoracic cord. The largest is at the le leo of T6. Tiny foci are also suggested at T3, T4, and T11. This is less conspicuous as compared to 2013 examination. No abnormal postcontrast enhancement is identified. The paraspinous soft tissues are normal in appearance. A sebaceous cyst is incidentally noted in the mid back. A 1.8 cm cyst is s een in the upper pole of the right kidney. The lung parenchyma is grossly unremarkable but not well e valuated by MRI. There is no pleural effusion. IMPRESSION: 1. There are numerous chronic thoracic compression deformities as above. No retropulsed fragments are identified. 2. There is no evidence of disc herniation, central canal stenosis, or significant neural foraminal n arrowing. 3. There is thinning of the thoracic cord with subtle T2 lesions identified as above. These lesions a re consistent with the reported history of multiple sclerosis and significantly less conspicuous when compared to the 10/01/2013 examination. There is no associated abnormal postcontrast enhancement. Dictated: 04/28/2020 11:29 AM Transcribed: 04/28/2020 12:09 PM Rachel [id number] [email or web address] Electronically signed by: Eris Guallpa M.D. 04/28/2020 12:12 PM
--- NOTE | 2020-04-28 15:50 | Hospitalist Progress Note ---
Date of Service April 28, 2020 Assessment & Plan (1) Multiple sclerosis exacerbation: Present on admission with diarrhea associated with weakness Possible related to MS exacerbation History of MS, previously receiving Ocrevus injections however has been lost to follow-up and has not received an injection since 2018 MRI of the head showed no significant change in extensive white matter T2 hyperintense foci since MRI of June 13, 2017 consistent with the history of multiple sclerosis. No new plaques. No evidence for active demyelination. MRI of cervical showed normalmorphology. There are several T2 hyperintense plaques identified consistent with the reported clinical history of multiple sclerosis. MRI thoracic showed thinning of the thoracic cord with subtle T2 lesions identified as above. These lesions are consistent with the reported history of multiple sclerosis and significantly less conspicuous when compared to the 10/01/2013 examination Neuro on board that recommended IV solumedrol 1 g daily for 3 days (On day 2), then taper with oral steroids 80 mg x 3 days, 60 mg x 3 days, 40 mg x 3 days, 30 mg x 3 days, 20 mg x 3 days then 10 mg x 3 days. Continue PT/OT on board and recommended inpatient rehab Fall precaution (2) Diarrhea: Stool for C. difficile testing negative Diarrhea resolved (3) Hyperparathyroidism: History of hypercalcemia and hyperparathyroidism, was previously scheduled for parathyroidectomy however was lost to follow-up Ca+ currently WNL will need Outpatient follow-up with ENT/endocrine Elevated WBC Mostly related to IV steroid Afebrile Continue monitor (4) DVT prophylaxis: SQ heparin (5) Discharge planning issues: Will need inpatient rehab Admission and Anticipated Discharge Date Admission Date: April 27, 2020 Subjective Pt was seen and examined for follow of weakness Lying in bed with no distress eating his breakfast Pt said that he feels much better He said that he does not have anymore diarrhea Denies any chest pain, palpitation, dizziness and SOB Physical Exam Physical Exam: General- No acute distress Head- atraumatic Eyes- PERRL, EOMI, ENT- oropharynx clear Neck- supple, no JVD Lungs- clear to auscultation Heart- regular rhythm; no murmur Abdomen- normal bowel sounds, soft, nontender Extremities- no calf tenderness Neuro- alert, oriented x 3; PERRL, EOMI; no facial palsy; no dysarthria, left lower extremity weakness Skin- warm & dry Results & Data Results & [facility] ([facility]) Vital Signs (Past 12 Hours) Vital Signs Temp Pulse Resp BP Pulse Ox 04/28/20 12:13 36.6 C 95 H 14 147/72 H 91 04/28/20 07:13 36.7 C 75 16 135/79 95 (1) Diarrhea Diarrhea type: unspecified type Qualified Code(s): R19.7 - Diarrhea, unspecified
[2020-04-28] MEDS: NSS + 20MEQ KCL 20 MEQ/1,000 ML BAG IV SCH (16:13)
[2020-04-29 06:10] LABS: Hematocrit (blood only) 39.1 % (42-52); Hemoglobin 13.2 g/dL (14.0-18.0); Immature Granulocytes # (auto) 0.05 K/uL (0.00-0.02); Immature Granulocytes % (auto) 0.3 %; Lymphocytes # (auto) 1.36 K/uL (1.2-3.4); Mean Corpuscular Hemoglobin 32.8 pg (25-34); Mean Corpuscular Hgb Conc 33.8 g/dL (32-36); Mean Platelet Volume 10.6 fL (7.4-10.4); Monocytes # (auto) 0.56 K/uL (0.11-0.59); Monocytes % (auto) 3.7 %; Platelet Count 280 K/uL (130-400); RDW Coefficient of Variation 12.8 % (11.5-14.5); Red Blood Count 4.03 M/uL (4.7-6.1); White Blood Count 15.07 K/uL (4.8-10.8)
[2020-04-29] MEDS: HEPARIN SOD 5,000 UNIT/0.5 ML VIAL SQ SCH ×3 (06:21→21:03)
[2020-04-29 06:38] LABS: Albumin Level 3.3 gm/dl (3.4-5.0); BUN Creatinine Ratio 18.6 (10-20); Calcium 9.7 mg/dl (8.5-10.1); Est GFR (Non-African American) 82.8; Magnesium 2.3 mg/dl (1.8-2.4); Potassium 4.1 mmol/L (3.5-5.1)
[2020-04-29 06:41] LABS: Albumin Globulin Ratio 1.1 (0.9-2); Bilirubin,Total 0.3 mg/dl (0.2-1); Globulin 2.9 gm/dl (2.5-4.0); Total Protein 6.2 gm/dl (6.4-8.2)
[2020-04-29] MEDS: methylPREDNISolone 1,000 MG in DEXTROSE 5% 250 ML IV SCH (08:28)
[2020-04-29] MEDS: CHOLESTYRAMINE LIGHT 4 GM PKT PO SCH ×2 (08:30→21:03)
[2020-04-29] MEDS: NSS + 20MEQ KCL 20 MEQ/1,000 ML BAG IV SCH (08:30)
[2020-04-29] MEDS: oxyCODONE HCL IR 5 MG TAB (IMMEDIATE RELEASE) PO PRN ×2 (10:15→18:20)
[2020-04-29] MEDS: ACETAMINOPHEN 325 MG TAB PO PRN ×2 (10:16→18:21)
--- NOTE | 2020-04-29 12:14 | Hospitalist Progress Note ---
Date of Service April 29, 2020 Assessment & Plan (1) Multiple sclerosis exacerbation: Present on admission with diarrhea associated with weakness Possible related to MS exacerbation History of MS, previously receiving Ocrevus injections however has been lost to follow-up and has not received an injection since 2018 MRI of the head showed no significant change in extensive white matter T2 hyperintense foci since MRI of June 13, 2017 consistent with the history of multiple sclerosis. No new plaques. No evidence for active demyelination. MRI of cervical showed normalmorphology. There are several T2 hyperintense plaques identified consistent with the reported clinical history of multiple sclerosis. MRI thoracic showed thinning of the thoracic cord with subtle T2 lesions identified as above. These lesions are consistent with the reported history of multiple sclerosis and significantly less conspicuous when compared to the 10/01/2013 examination Neuro on board that recommended IV solumedrol 1 g daily for 3 days (On day 3), then taper with oral steroids 80 mg x 3 days, 60 mg x 3 days, 40 mg x 3 days, 30 mg x 3 days, 20 mg x 3 days then 10 mg x 3 days. Continue PT/OT on board and recommended inpatient rehab Fall precaution (2) Diarrhea: Stool for C. difficile testing negative Will discontinue IVF Diarrhea resolved (3) Depression: Denies any suicidal thought Pt said that he used to be on Prozac few years ago then that was discontinued because insurance did not cover it Reviewed his record up to 2008, but did not see prozac, but i found that he was on amitriptyline for post herpes pain Will consider to start on a low dose SSRI (4) Hyperparathyroidism: History of hypercalcemia and hyperparathyroidism, was previously scheduled for parathyroidectomy however was lost to follow-up Ca+ currently WNL will need Outpatient follow-up with ENT/endocrine Elevated WBC WBC 15K today Mostly related to IV steroid Afebrile Continue monitor Stable (5) DVT prophylaxis: SQ heparin (6) Discharge planning issues: Will need inpatient rehab Admission and Anticipated Discharge Date Admission Date: April 27, 2020 Subjective Pt was seen and examined for follow of weakness Lying in bed with no distress watching TV Pt said that he feels much better He said that he would like to start on an antidepressant med because he has been feeling depressed He said that sometimes he starts crying. He said that he used to be prozac and that was changed because the insurance did not want to cover it He said that he has not been on any medication for his depression for years Denies any chest pain, palpitation, dizziness and SOB Physical Exam Physical Exam: General- No acute distress Head- atraumatic Eyes- PERRL, EOMI, ENT- oropharynx clear Neck- supple, no JVD Lungs- clear to auscultation Heart- regular rhythm; no murmur Abdomen- normal bowel sounds, soft, nontender Extremities- no calf tenderness Neuro- alert, oriented x 3; PERRL, EOMI; no facial palsy; no dysarthria, left lower extremity weakness Skin- warm & dry Results & Data Results & Data ([facility]) Vital Signs (Past 12 Hours) Vital Signs Temp Pulse Resp BP Pulse Ox 04/29/20 09:40 36.4 C L 89 18 127/72 96 (1) Diarrhea Diarrhea type: unspecified type Qualified Code(s): R19.7 - Diarrhea, unspecified
[2020-04-29] MEDS: FLUoxetine HCL 10 MG CAP PO SCH (13:02)
--- NOTE | 2020-04-29 17:04 | Neurology Progress Note ---
Date of Service April 29, 2020 Assessment & Plan (1) Multiple sclerosis exacerbation: A 44 year old M with presumed pseudo-exacerbation of MS due to recent diarrhea now resolved. Imaging remains stable with no ehancing lesions. On examine has chronic left sided weakness and spasticity. Patient completed 3 days of IV Steroids. Will likely benefit from inpatient rehab. Otherwise can follow up with Neurology in 4-6 weeks as outpatient. Please call with any additional questions or concerns. Admission and Anticipated Discharge Date Admission Date: April 27, 2020 Subjective Patient was seen and examined. Reports feeling better with improved strength. Denies any new complaints or concerns. Physical Exam Physical Exam: Awake alert. Speech is clear. Right sided weakness improved. Chronic left arm and leg weakness. Brisk reflexes at the knees. Sensation intact on the right. Results & Data ([facility]) Vital Signs (Past 12 Hours) Vital Signs Temp Pulse Resp BP Pulse Ox 04/29/20 15:00 36.8 C 81 16 126/73 94 04/29/20 09:40 36.4 C L 89 18 127/72 96
[2020-04-29] MEDS: DOCUSATE SODIUM 100 MG CAP PO SCH (21:03)
[2020-04-30] MEDS: NSS + 20MEQ KCL 20 MEQ/1,000 ML BAG IV SCH (02:10)
[2020-04-30] MEDS: HEPARIN SOD 5,000 UNIT/0.5 ML VIAL SQ SCH ×3 (05:24→21:20)
[2020-04-30] MEDS: POLYETHYLENE (MIRALAX) 17 GM PACK PO PRN (05:26)
[2020-04-30] MEDS: CHOLESTYRAMINE LIGHT 4 GM PKT PO SCH (08:36)
[2020-04-30] MEDS: FLUoxetine HCL 10 MG CAP PO SCH (08:36)
[2020-04-30] MEDS: DOCUSATE SODIUM 100 MG CAP PO SCH (08:36)
[2020-04-30] MEDS: ACETAMINOPHEN 325 MG TAB PO PRN ×3 (08:39→23:25)
[2020-04-30] MEDS: oxyCODONE HCL IR 5 MG TAB (IMMEDIATE RELEASE) PO PRN ×3 (08:39→23:24)
[2020-04-30] MEDS: predniSONE 20 MG TAB PO SCH (09:47)
--- NOTE | 2020-04-30 17:05 | Hospitalist Progress Note ---
Date of Service April 30, 2020 Assessment & Plan (1) Multiple sclerosis exacerbation: Present on admission with diarrhea associated with weakness Possible related to MS exacerbation History of MS, previously receiving Ocrevus injections however has been lost to follow-up and has not received an injection since 2018 MRI of the head showed no significant change in extensive white matter T2 hyperintense foci since MRI of June 13, 2017 consistent with the history of multiple sclerosis. No new plaques. No evidence for active demyelination. MRI of cervical showed normalmorphology. There are several T2 hyperintense plaques identified consistent with the reported clinical history of multiple sclerosis. MRI thoracic showed thinning of the thoracic cord with subtle T2 lesions identified as above. These lesions are consistent with the reported history of multiple sclerosis and significantly less conspicuous when compared to the 10/01/2013 examination Neuro on board that recommended IV solumedrol 1 g daily for 3 days, completed, then taper with oral steroids 80 mg x 3 days, 60 mg x 3 days, 40 mg x 3 days, 30 mg x 3 days, 20 mg x 3 days then 10 mg x 3 days. Continue PT/OT on board and recommended inpatient rehab Fall precaution (2) Diarrhea: Stool for C. difficile testing negative IVF discontinued Diarrhea resolved (3) Depression: Denies any suicidal thought Pt said that he used to be on Prozac few years ago then that was discontinued because insurance did not cover it Reviewed his record up to 2008, but did not see prozac, but i found that he was on amitriptyline for post herpes pain Case discussed with psych ( No official consult) and agreed to start on prozac Will need outpatient follow up with PCP to titrate the prozac (4) Hyperparathyroidism: History of hypercalcemia and hyperparathyroidism, was previously scheduled for parathyroidectomy however was lost to follow-up Ca+ currently WNL Will need Outpatient follow-up with ENT/endocrine Elevated WBC WBC 15K today Mostly related to IV steroid Afebrile Continue monitor Stable (5) DVT prophylaxis: SQ heparin (6) Discharge planning issues: Will need inpatient rehab Admission and Anticipated Discharge Date Admission Date: April 27, 2020 Subjective Pt was seen and examined for follow of weakness Lying in bed with no distress watching TV Pt said that he feels ok Denies any chest pain, palpitation, dizziness and SOB Review of Systems Review of Systems: All systems reviewed & are unremarkable except as noted in Subjective Physical Exam Physical Exam: General- No acute distress Head- atraumatic Eyes- PERRL, EOMI, ENT- oropharynx clear Neck- supple, no JVD Lungs- clear to auscultation Heart- regular rhythm; no murmur Abdomen- normal bowel sounds, soft, nontender Extremities- no calf tenderness Neuro- alert, oriented x 3; PERRL, EOMI; no facial palsy; no dysarthria, left lower extremity weakness Skin- warm & dry Results & Data Results & Data ([facility]) Vital Signs (Past 12 Hours) Vital Signs Temp Pulse Resp BP Pulse Ox 04/30/20 15:03 36.8 C 72 18 134/75 94 04/30/20 07:42 36.6 C 65 16 128/68 98 (1) Diarrhea Diarrhea type: unspecified type Qualified Code(s): R19.7 - Diarrhea, unspecified
[2020-05-01] MEDS: oxyCODONE HCL IR 5 MG TAB (IMMEDIATE RELEASE) PO PRN ×2 (05:39→14:45)
[2020-05-01] MEDS: HEPARIN SOD 5,000 UNIT/0.5 ML VIAL SQ SCH ×2 (06:23→14:39)
[2020-05-01] MEDS: DOCUSATE SODIUM 100 MG CAP PO SCH (07:17)
[2020-05-01] MEDS: predniSONE 20 MG TAB PO SCH (08:35)
[2020-05-01] MEDS: FLUoxetine HCL 10 MG CAP PO SCH (08:36)
[2020-05-01] MEDS: POLYETHYLENE (MIRALAX) 17 GM PACK PO PRN (11:04)
[2020-05-01] MEDS: ACETAMINOPHEN 325 MG TAB PO PRN (14:46)
--- NOTE | 2020-05-01 14:54 | Discharge Summary ---
Date of Service May 01, 2020 Admission HPI Per Admitting Provider The patient is a 44-year-old male with a past medical history including depression, seizure disorder, chronic pain syndrome, RUBI, encephalopathy, multiple sclerosis, left lower extremity paresis, hypercalcemia, kidney stone and hypokalemia. The patient reports that he feels generally weak in his lower extremities since his head simply loose stools today. He is chronically not able to move his left lower extremity, but is able to move his right lower extremity while in exam room, but then reports that he has decreased sensation on that side. His history of multiple sclerosis involves treatments at the medical treatment unit by a [facility] neurologist that stopped last year for unknown reasons. The patient has not had a PCP in several years. He does live at home with family. He reports he is too weak to be able to go home and take care of himself. Admission Exam Per Admitting Provider The patient is awake, alert and oriented 3, well developed and well nourished, normocephalic and atraumatic, lying in bed and in no acute distress. HEENT--PERRL, EOMI, mucous membranes and oropharynx dry. Neck--supple. No JVD. No bruits. Thyroid normal, trachea midline, no adenopathy. Heart--normal S1 and S2. No murmurs, rubs or gallops. Lungs--clear bilaterally, no respiratory distress, no accessory muscle use. Abdomen--normal bowel sounds and soft. Nontender. Nondistended, no hernias or masses, no organomegaly. Extremities--no cyanosis or clubbing. No edema. Dermatologic--normal skin turgor, normal color, no abnormal lymph nodes, no rash. Neurologic--cranial nerves II through XII grossly intact. Upper extremity exam normal bilaterally for sensation and motor. Left lower extremity paretic. Right lower extremity with normal movement and sensation Rheumatologic--limited range of motion Psychiatric--normal affect. Principal Diagnosis Multiple sclerosis exacerbation: Diarrhea: Depression: Seizure Hyperparathyroidism: Elevated WBC Discharge Exam General- No acute distress Head- atraumatic Eyes- PERRL, EOMI, ENT- oropharynx clear Neck- supple, no JVD Lungs- clear to auscultation Heart- regular rhythm; no murmur Abdomen- normal bowel sounds, soft, nontender Extremities- no calf tenderness Neuro- alert, oriented x 3; PERRL, EOMI; no facial palsy; no dysarthria, left lower extremity weakness Skin- warm & dry Discharge Data Allergies Allergy/AdvReac Type Severity Reaction Status Date / Time No Known Allergies Allergy Verified 04/26/20 20:27 Consultations 04/26/20 23:46 ED Decision to Admit Stat 04/27/20 09:50 Consult Neurology Routine Ordered Studies 04/27/20 17:41 MR brain MS wo/w con Routine MR cervical spine wo/w con Routine 04/28/20 17:41 MR thoracic spine wo/w con Routine MRI OF THE THORACIC SPINE COMBO CLINICAL HISTORY: Multiple sclerosis. COMPARISON STUDY: MRI of the thoracic spine dated 10/01/2013. TECHNIQUE: MRI of the thoracic spine is performed using various T1 and T2- weighted sequences in the axial and sagittal planes. Contrast-enhanced sequences are acquired following the IV administration of 9 cc of Gadavist. FINDINGS: There are numerous chronic compression deformities seen throughout the thoracic spine. These involve T2, T3, T4, T5, T6, T7, T8, and T10. The majority of these were also present in 2014. There is no marrow edema to suggest acuity. Superior endplate sclerosis is noted involving T2 and T10. No retropulsed fragments are identified. The transverse and spinous processes appear intact. No destructive bony lesion is identified. A large Schmorl's node is seen in the superior endplate of T7. Degenerative disc desiccation and mild loss of height are seen throughout the thoracic spine. There is no disc herniation or central canal stenosis. There is no evidence of high-grade neural foraminal stenosis throughout the thoracic spine. There is thinning of the thoracic cord seen at the level of T6. There are numerous subtle T2 hyperintense foci seen throughout the thoracic cord. The largest is at the level of T6. Tiny foci are also suggested at T3, T4, and T11. This is less conspicuous as compared to the 2014 examination. No abnormal postcontrast enhancement is identified. The paraspinous soft tissues are normal in appearance. A sebaceous cyst is incidentally noted in the mid back. A 1.8 cm cyst is seen in the upper pole of the right kidney. The lung parenchyma is grossly unremarkable but not well evaluated by MRI. There is no pleural effusion. IMPRESSION: 1. There are numerous chronic thoracic compression deformities as above. No retropulsed fragments are identified. 2. There is no evidence of disc herniation, central canal stenosis, or sig nificant neural foraminal narrowing. 3. There is thinning of the thoracic cord with subtle T2 lesions identified as above. These lesions are consistent with the reported history of multiple sclerosis and significantly less conspicuous when compared to the 10/01/2013 examination. There is no associated abnormal postcontrast enhancement. Dictated: 04/28/2020 11:29 AM Transcribed: 04/28/2020 12:09 PM Rachel [id number] [facility] Electronically signed by: Eris Guallpa M.D. 04/28/2020 12:12 PM Dictated: 04/28/20 1129Transcribed: 04/28/20 1209 MRI OF THE CERVICAL SPINE COMBO CLINICAL HISTORY: Multiple sclerosis. COMPARISON STUDY: MRI of the cervical spine dated 11/12/2015. TECHNIQUE: MRI of the cervical spine is performed utilizing various T1 and T2- weighted sequences in the axial and sagittal planes. Contrast-enhanced sequences were acquired following the IV administration of 9.4 cc of Gadavist. The examination is compromised by motion artifact. FINDINGS: Cervical spine: Vertebral body height and alignment are maintained throughout the cervical spine. The atlantodental articulation is preserved. Normal marrow signal intensity is maintained throughout the visualized bony structures. The spinous processes appear intact. No destructive bony lesion is seen. Intervertebral discs: There is mild degenerative disc desiccation throughout the cervical spine. The disc spaces are preserved. Spinal cord: The cervical spinal cord is normal in morphology. There are several T2 hyperintense lesions seen throughout the cervical cord. A 6 mm lesion is noted at the level of C2. Subtle lesions are seen at the level of C3 and at C6. These lesions are much less conspicuous as compared to the 2016 examination. No abnormal postcontrast enhancement is identified. C2-C3: Mild facet arthropathy is of no consequence. The central canal and neural foramina are patent. C3-C4: The central canal is clear. Uncovertebral and facet arthropathy contribute to mild left-sided neural foraminal stenosis. C4-C5: Uncovertebral and facet arthropathy contribute to mild neural foraminal stenosis. The central canal is clear. C5-C6: A posterior disc osteophyte complex eccentric to the right effaces the ventral subarachnoid space. Uncovertebral and facet arthropathy contribute to moderate right and minimal left neural foraminal stenosis. C6-C7: A posterior disc osteophyte complex abuts the cord. Uncovertebral and facet arthropathy contribute to moderate to severe left and moderate right neural foraminal stenosis. C7-T1: Unremarkable. Soft tissues: The prevertebral and paraspinous soft tissues are normal in appearance. Brain parenchyma: Small lesions are identified within the javier and the left cerebellar hemisphere, likely related to the reported clinical history of multiple sclerosis. IMPRESSION: 1. The cervical spinal cord is normal in morphology. There are several T2 hyperintense plaques identified consistent with the reported clinical history of multiple sclerosis. These are significantly less conspicuous as compared to the 11/12/2015 examination. There is no associated abnormal postcontrast enhancement. 2. Mild spondylotic change as above. 3. No destructive bony process is identified. Dictated: 04/28/2020 8:19 AM Transcribed: 04/28/2020 11:01 AM Rachel [id number] [facility] Electronically signed by: Eris Guallpa M.D. 04/28/2020 11:06 AM Dictated: 04/28/20 0819Transcribed: 04/28/20 1101 MRI OF THE BRAIN WITH AND WITHOUT CONTRAST MULTIPLE SCLEROSIS PROTOCOL CLINICAL HISTORY: MS f/u COMPARISON STUDY: MRI of the brain June 13, 2017. TECHNIQUE: Utilizing a 1.5 Bijal magnet and dedicated coil, multiplanar, multiecho imaging of the brain was performed pre and postcontrast administration following the multiple sclerosis protocol. Intravenous injection of 9.4 cc of Gadavist was uneventful. FINDINGS: There are no foci of restricted diffusion to suggest acute infarct. No acute intracranial hemorrhage, midline shift or mass effect is present. There is no intracranial mass or pathologic enhancement. Extensive subcortical and periventricular white matter T2 hyperintense foci with atrophy are similar to MRI of June 13, 2017. The appearance of the brain is similar to prior exam. Basal cisterns are patent. There are no extra axial collections. Flow-voids for the major intracranial vessels are present. Calvarial signal is normal. There is no fluid within the sinuses or the mastoid air cells. Globes are intact. IMPRESSION: 1. No acute intracranial findings. 2. No significant change in extensive white matter T2 hyperintense foci since MRI of June 13, 2017 consistent with the history of multiple sclerosis. No new plaques. No evidence for active demyelination. 3. Cerebral atrophy, similar to prior exam. ACT 112: Negative or not required by law. Electronically signed by: Vinh Varela M.D. 04/28/2020 8:28 AM Dictated: 04/28/20819Transcribed: 04/28/20819 SINGLE VIEW CHEST CLINICAL HISTORY: Generalized weakness. FINDINGS: An AP, portable, upright chest radiograph is compared to study dated 07/21/2018. The examination is mildly degraded by portable technique and patient rotation. The cardiomediastinal silhouette is unremarkable. The lungs and pleural spaces are clear. No pneumothorax is seen. The bony thorax is grossly intact. IMPRESSION: No active disease in the chest. ACT 112: Negative or not required by law. Electronically signed by: Eris Guallpa M.D. 04/26/2020 7:35 PM Dictated: 04/26/201934Transcribed: 04/26/201934 Hospital Course (1) Multiple sclerosis exacerbation: Present on admission with diarrhea associated with weakness Possible related to MS exacerbation History of MS, previously receiving Ocrevus injections however has been lost to follow-up and has not received an injection since 2018 MRI of the head showed no significant change in extensive white matter T2 hyperintense foci since MRI of June 13, 2017 consistent with the history of multiple sclerosis. No new plaques. No evidence for active demyelination. MRI of cervical showed normalmorphology. There are several T2 hyperintense plaques identified consistent with the reported clinical history of multiple sclerosis. MRI thoracic showed thinning of the thoracic cord with subtle T2 lesions identified as above. These lesions are consistent with the reported history of multiple sclerosis and significantly less conspicuous when compared to the 10/01/2013 examination Neuro on board that recommended IV solumedrol 1 g daily for 3 days, completed, then taper with oral steroids 80 mg x 3 days (completed 2 days), 60 mg x 3 days, 40 mg x 3 days, 30 mg x 3 days, 20 mg x 3 days then 10 mg x 3 days. Continue PT/OT on board and recommended inpatient rehab Fall precaution (2) Diarrhea: Stool for C. difficile testing negative IVF discontinued Diarrhea resolved (3) Depression: Denies any suicidal thought Pt said that he used to be on Prozac few years ago then that was discontinued because insurance did not cover it Reviewed his record up to 2008, but did not see prozac, but i found that he was on amitriptyline for post herpes pain Case discussed with psych ( No official consult) and agreed to start on prozac Will need outpatient follow up with PCP to titrate the prozac (4) Hyperparathyroidism: History of hypercalcemia and hyperparathyroidism, was previously scheduled for parathyroidectomy however was lost to follow-up Ca+ currently WNL Will need Outpatient follow-up with ENT/endocrine Elevated WBC WBC 15K today Mostly related to IV steroid Afebrile Continue monitor Stable (5) DVT prophylaxis: SQ heparin (6) Discharge planning issues: Will need inpatient rehab Total Time Total Time Spent Total Time Spent (In Minutes): 35 minutes Total Time Includes: Examination of the Patient Discharge Plan Discharge Items Patient Disposition: Transfer Inpatient Rehab Fac Reason For Visit: INTRACTABLE DIARRHEA, MS Discharge Diagnosis: Multiple sclerosis exacerbation: Diarrhea: Depression: Hyperparathyroidism: Elevated WBC Activity: Resume your previous activity Non-emergency contact: Primary Care Provider Call non-emergency contact if: you have any medication questions Follow-up/Referrals: PCP,NO [Primary Care Provider] - Diet: Regular Addtl Attending Provider Instructions: Follow up with your primary care provider once discharge from rehab Follow up with neurology with Dr. Ruiz or his colleagues in 4 to 6 weeks Follow up with ENT outpatient to arrange for your parathyroid surgery Continue physical and occupational therapy Continue prednisone taper course fall precaution Continue seizure precaution Do no drive or operate any machine while taking narcotic Please hold next dose of oxycodone if your become drowsy and lethargy Your physician can titrate the prozac in the next few weeks if needed Pending Studies at Discharge: No Stand-Alone Forms: My [facility] Skilled Items Patient informed of condition?: Yes DNR: No Discharge Level of Care: Acute rehab Communicable Disease: No Discharge Prognosis: Stable Lines: None Urinary Catheter: No Medications and DC Order Prescriptions: New fluoxetine 10 mg Capsule 10 mg PO QAM Qty: 30 RF: 0 oxycodone 5 mg Tablet 5 mg PO Q8H PRN (Reason: modera to severe pain) Qty: 10 RF: 0 polyethylene glycol 3350 [Miralax] 17 gram Powder In Packet 17 g PO DAILY PRN (Reason: constipation) Qty: 30 RF: 0 prednisone 20 mg Tablet 80 mg PO UD Qty: 30 RF: 0 docusate sodium 100 mg Capsule 100 mg PO DAILY PRN (Reason: constipation) Qty: 30 RF: 0 Continued acetaminophen [Tylenol Extra Strength] 500 mg Tablet 1,000 mg PO Q6H PRN (Reason: Pain) RF: 0 Discharge Orders: Discharge Order (Routine); Ordered 05/01/20 Ordered By: Janice De Leon Admission Data Admit Date/Time: 04/27/20 14:23 Attending Provider: Janice De Leon Admit Provider: Fer Cloud Primary Care Provider: PCP,NO Other Providers: Fer Cloud ; Haylee Lucio ; Ricky Ruiz ; [facility] Danielle Bah ; [facility] ; [facility], Other Interventions: Discharge Summary Assessment (RN) Last Done: 05/01/20 14:48
== END 2020-05-01 15:33 | DRG 60 ==
LOC: 3W 18:14 → ED 18:14 → SUATTDRO 22:48 → 3W 04-27 00:10

== ENCOUNTER 2020-05-27 13:45 | Inpatient (IN) ==
--- NOTE | 2020-05-27 14:13 | Emergency Department Note ---
Impression & Plan Weakness, Hypophosphatemia, Diarrhea, Exacerbation of multiple sclerosis ED Provider Note NAME: JAD DICKINSON AGE: 44 SEX: M : 1975 ARRIVES VIA: Ambulance INFORMANT: [Patient][ems] ED PROVIDER(S): [Eris Godoy MD] CHIEF COMPLAINT: Weakness HISTORY OF PRESENT ILLNESS: The patient is a 44-year-old male with MS. He was in our hospital and discharged in early April, around the second. He was in for weakness and a flare of MS. He was having diarrhea. The patient states he has had some loose stool ever since being discharged from the hospital. In the last week, he has noticed increasing weakness. He states he has tapered down off of his prednisone as instructed. He is no longer taking any prednisone. Patient states that last night, he lost his bowel and urine continence in bed. He was too weak to get out of bed and get to the bathroom to take care of himself. He laid there all night. This morning, his family found him, EMS was summoned. Patient denies fever, he denies any abdominal pain. There has been no vomiting, chest pain or shortness of breath. He has no known Covid exposures. The patient states that he is currently too weak to care for himself and cannot be discharged back into his current living situation. REVIEW OF SYSTEMS: See HPI for pertinent positives and negatives. A total of ten systems were reviewed and were otherwise negative. PMHx/PSHx: See Below SOCIAL HISTORY: See Below. PHYSICAL EXAM: GENERAL: Patient is in no acute distress. Patient was covered in stool from his abdomen to his toes. HEENT: No acute trauma, normocephalic atraumatic, mucous membranes moist, no nasal congestion, no scleral icterus. NECK: No stridor, no adenopathy, no meningismus, trachea is midline. LUNGS: Clear to auscultation bilaterally, no wheeze, no rhonchi, breath sounds equal. HEART: Without murmurs gallops or rubs, regular rate and rhythm. ABDOMEN: Soft, nontender, bowel sounds positive, no hernias, no peritonitis. EXTREMITIES: No cyanosis or edema, full range of motion of all the joints without pain or difficulty, no signs for acute trauma. NEUROLOGIC: Oriented x 3. The patient has decent strength of the right upper extremity and right lower extremity. He has minimal to no movement of the left leg spontaneously. Occasionally, the left leg seems to show spasticity. His left upper extremity can be controlled and moved actively but he is quite weak with my testing. SKIN: No rash, no jaundice, no diaphoresis. DIFFERENTIAL DIAGNOSIS: Infection, dehydration, metabolic abnormality, MS flare, hypo/hyperglycemia, electrolyte disturbance, anemia, hypoxia, cardiac sources, intracerebral event, toxicologic issues, stroke, TIA, as well as other pathologies. EMERGENCY DEPARTMENT COURSE/PROCEDURES: ECG: Indication was weakness. The ECG shows a normal sinus rhythm with a rate of 75. There is no ST elevation, no PVCs. The QTc is 413. Continuous Cardiac Monitoring: An order was placed for continuous cardiac mon itoring. The monitor shows a rate of 85 with normal sinus rhythm. MEDICAL DECISION MAKING: There is no leukocytosis or worrisome anemia. There is a normal platelet count. Phosphorus was quite low at 1.2, this was a critical value. Had no kidney failure. No concerning liver enzyme elevation. The patient appeared to be in a euthyroid state. ECG showed a sinus rhythm, no acute ischemia. Cardiac enzyme testing x1 is not consistent with acute cardiac injury. Urinalysis did not show infection. Covid and influenza testing returned negative. Chest x-ray did not show pneumonia or CHF. On exam, the patient was covered in stool from his chest to his toes. He had weakness on his left side consistent with his prior exams. The patient received IV potassium phosphate. He received IV saline for hydration. He was given IV Zofran for nausea. I did speak with neurology. As the patient is likely having an MS flare, Solu- Medrol was suggested. The patient was given 1 g IV. The patient is too weak to care for himself. He has a critically low phosphate level. He is suffering a flare of MS. He requires a hospital stay and possibly placement at rehab or a care facility. I spoke to the patient and case management. The on-call hospitalist was consulted. Past Med/Surg History Medical History Chronic pain syndrome Hypercalcemia Multiple sclerosis Obstructive uropathy 2/2 renal stone, caused RUBI, pt admitted for this and hypercalcemia 05/2018 Seizure disorder Many years ago may have had single episode, pt was never treated for this, no reoccurrence. Surgical History History of cystoscopy WITH STENT PLACEMENT 06/14/18 [facility] Family History (Updated 05/27/20 @ 17:35 by Quin Doherty PA-C) Father Stroke Thyroid disorder Other Hypertension Kidney stones Social History Smoking Status: Never smoker Cigarettes Per Day: 0; Second Hand Exposure: Yes; Do You Dip or Chew Tobacco: No; Tobacco Cessation Education Requested by Patient: No Hx Alcohol Use: Yes (social drinker) Alcohol type: beer Hx Substance Use: No Preferred Language: Romansh Communication Ability: Effective Senior Integration Architect Required: No Beliefs That Will Affect Care: None Current Living Situation: Family Current Living Situation Comment: brother and father at home current occupational status: disabled Other Information That Helps Us Care for You: Yes (R side weaker than L side= baseline) Feels Safe at Home: Yes Safety Concerns: Feels Safe At This Time Assistive Devices: Wheelchair Assistive Devices Comment: lift at home Allergies Allergies Allergy/AdvReac Type Severity Reaction Status Date / Time No Known Allergies Allergy Verified 05/27/20 14:18 Home Meds Home Medications Medication Instructions Recorded Confirmed No Known Home Medications 05/27/20 05/27/20 Results & Data (ED) Vital Signs Vital Signs - 24 hr 05/27/20 13:49 05/27/20 13:50 05/27/20 14:11 Temperature 36.5 C Temperature Source Oral Pulse Rate 86 85 81 Pulse Rate from SpO2 Sensor Pulse Rhythm Regular Pulse Strength Normal Respiratory Rate 21 20 22 Respiratory Effort / Characteristics Non-Labored Respiratory Depth Normal Respiratory Pattern Regular Blood Pressure 173/85 H 173/85 H Blood Pressure Mean 114 114 Blood Pressure Position Sitting Pulse Oximetry 97 Oxygen Delivery Method Room Air Sepsis Recent Fever Within 48 Hours No Sepsis New/Unexplained Change in Mental Status No Sepsis Action Taken by Nursing No Action Required 05/27/20 14:30 05/27/20 15:00 05/27/20 15:30 Temperature Temperature Source Pulse Rate 77 74 70 Pulse Rate from SpO2 Sensor Pulse Rhythm Pulse Strength Respiratory Rate 20 22 18 Respiratory Effort / Characteristics Respiratory Depth Respiratory Pattern Blood Pressure Blood Pressure Mean Blood Pressure Position Pulse Oximetry Oxygen Delivery Method Sepsis Recent Fever Within 48 Hours Sepsis New/Unexplained Change in Mental Status Sepsis Action Taken by Nursing 05/27/20 15:41 05/27/20 15:42 05/27/20 16:00 Temperature Temperature Source Pulse Rate 84 78 80 Pulse Rate from SpO2 Sensor 85 77 76 Pulse Rhythm Pulse Strength Respiratory Rate 24 21 23 Respiratory Effort / Characteristics Respiratory Depth Respiratory Pattern Blood Pressure 142/81 H 170/97 H Blood Pressure Mean 101 121 Blood Pressure Position Pulse Oximetry 98 98 100 Oxygen Delivery Method Sepsis Recent Fever Within 48 Hours Sepsis New/Unexplained Change in Mental Status Sepsis Action Taken by Nursing 05/27/20 16:01 05/27/20 16:25 05/27/20 16:30 Temperature Temperature Source Pulse Rate 67 73 78 Pulse Rate from SpO2 Sensor 69 77 Pulse Rhythm Pulse Strength Respiratory Rate 20 20 24 Respiratory Effort / Characteristics Respiratory Depth Respiratory Pattern Blood Pressure Blood Pressure Mean Blood Pressure Position Pulse Oximetry 99 98 98 Oxygen Delivery Method Room Air Sepsis Recent Fever Within 48 Hours Sepsis New/Unexplained Change in Mental Status Sepsis Action Taken by Nursing 05/27/20 16:36 05/27/20 16:37 05/27/20 17:00 Temperature Temperature Source Pulse Rate 76 73 68 Pulse Rate from SpO2 Sensor 74 73 68 Pulse Rhythm Pulse Strength Respiratory Rate 21 20 18 Respiratory Effort / Characteristics Respiratory Depth Respiratory Pattern Blood Pressure 160/74 H 137/80 Blood Pressure Mean 102 99 Blood Pressure Position Pulse Oximetry 97 97 97 Oxygen Delivery Method Sepsis Recent Fever Within 48 Hours Sepsis New/Unexplained Change in Mental Status Sepsis Action Taken by Nursing 05/27/20 17:01 05/27/20 17:30 05/27/20 17:31 Temperature Temperature Source Pulse Rate 72 74 76 Pulse Rate from SpO2 Sensor 76 73 76 Pulse Rhythm Pulse Strength Respiratory Rate 18 18 19 Respiratory Effort / Characteristics Respiratory Depth Respiratory Pattern Blood Pressure 139/74 Blood Pressure Mean 95 Blood Pressure Position Pulse Oximetry 97 98 97 Oxygen Delivery Method Sepsis Recent Fever Within 48 Hours Sepsis New/Unexplained Change in Mental Status Sepsis Action Taken by [facility] Medications Current Medication List: was personally reviewed by me Laboratory Data Attestation: I reviewed the patient's lab results. Result diagrams: 05/27/20 14:36 05/27/20 14:36 Lab Results 05/27/20 05/27/20 05/27/20 Range/Units 14:15 14:15 14:35 WBC (4.8-10.8) K/uL RBC (4.7-6.1) M/uL Hgb (14.0-18.0) g/dL Hct (42-52) % MCV (80-100) fL MCH (25-34) pg MCHC (32-36) g/dL RDW Std Deviation (36.4-46.3) fL RDW Coeff of Bret (11.5-14.5) % Plt Count (130-400) K/uL MPV (7.4-10.4) fL Immature Gran % (Auto) % Neut % (Auto) % Lymph % (Auto) % Riley % (Auto) % Eos % (Auto) % Baso % (Auto) % Neut # (Auto) (1.4-6.5) K/uL Lymph # (Auto) (1.2-3.4) K/uL Riley # (Auto) (0.11-0.59) K/uL Eos # (Auto) (0-0.5) K/uL Baso # (Auto) (0-0.2) K/uL Immature Gran # (Auto) (0.00-0.02) K/uL Sodium (136-145) mmol/L Potassium (3.5-5.1) mmol/L Chloride (98-107) mmol/L Carbon Dioxide (21-32) mmol/L Anion Gap (3-11) BUN (7-18) mg/dl Creatinine (0.6-1.4) mg/dl Est Cr Clr Drug Dosing ml/min Est GFR ( Amer) Est GFR (Non-Af Amer) BUN/Creatinine Ratio (10-20) Glucose (70-99) mg/dl Calcium (8.5-10.1) mg/dl Phosphorus (2.5-4.9) mg/dl Magnesium (1.8-2.4) mg/dl Total Bilirubin (0.2-1) mg/dl AST (15-37) U/L ALT (12-78) U/L Alkaline Phosphatase (45-117) U/L Total Creatine Kinase (39-308) U/L Troponin I (0-0.045) ng/ml Total Protein (6.4-8.2) gm/dl Albumin (3.4-5.0) gm/dl Globulin (2.5-4.0) gm/dl Albumin/Globulin Ratio (0.9-2) TSH (0.300-4.500) uIu/ml Specimen Hemolysis Urine Color Yellow Urine Appearance Turbid A (Clear) Urine pH 8.5 H (4.5-7.5) Ur Specific [place] 1.015 (1.000-1.030) Urine Protein Trace H (Negative) Urine Glucose (UA) Negative (Negative) Urine Ketones Negative (Negative) Urine Blood Negative (Negative) Urine Nitrite Negative (Negative) Urine Bilirubin Negative (Negative) Urine Urobilinogen Negative (Negative) Ur Leukocyte Esterase Negative (Negative) Urine WBC (Auto) 1-5 (0-5) /hpf Urine RBC (Auto) 0-4 (0-4) /hpf U Hyaline Cast (Auto) 1-5 (0-5) /lpf U Epithel Cells (Auto) 5-10 H (0-5) /lpf Urine Bacteria (Auto) Negative (Negative) Urine Sperm Present A (None Prsent) COVID-19 Eval Order CovFluRsv at [facility] SARS-CoV-2 (PCR) NEGATIVE (Negative) Influenza Type A (PCR) Negative (Neg) Influenza Type B (PCR) Negative (Neg) RSV (RT-PCR) Negative (Neg) 05/27/20 05/27/20 Range/Units 14:36 14:36 WBC 6.95 (4.8-10.8) K/uL RBC 3.96 L (4.7-6.1) M/uL Hgb 13.0 L (14.0-18.0) g/dL Hct 36.8 L (42-52) % MCV 92.9 (80-100) fL MCH 32.8 (25-34) pg MCHC 35.3 (32-36) g/dL RDW Std Deviation 41.1 (36.4-46.3) fL RDW Coeff of Bret 12.0 (11.5-14.5) % Plt Count 227 (130-400) K/uL MPV 9.9 (7.4-10.4) fL Immature Gran % (Auto) 0.3 % Neut % (Auto) 77.6 % Lymph % (Auto) 9.2 % Riley % (Auto) 12.2 % Eos % (Auto) 0.6 % Baso % (Auto) 0.1 % Neut # (Auto) 5.39 (1.4-6.5) K/uL Lymph # (Auto) 0.64 L (1.2-3.4) K/uL Riley # (Auto) 0.85 H (0.11-0.59) K/uL Eos # (Auto) 0.04 (0-0.5) K/uL Baso # (Auto) 0.01 (0-0.2) K/uL Immature Gran # (Auto) 0.02 (0.00-0.02) K/uL Sodium 142 (136-145) mmol/L Potassium 3.5 (3.5-5.1) mmol/L Chloride 111 H (98-107) mmol/L Carbon Dioxide 23 (21-32) mmol/L Anion Gap 8.0 (3-11) BUN 11 (7-18) mg/dl Creatinine 1.03 (0.6-1.4) mg/dl Est Cr Clr Drug Dosing 109.5 ml/min Est GFR ( Amer) 100.5 Est GFR (Non-Af Amer) 86.7 BUN/Creatinine Ratio 10.4 (10-20) Glucose 114 H (70-99) mg/dl Calcium 9.9 (8.5-10.1) mg/dl Phosphorus 1.2 L* (2.5-4.9) mg/dl Magnesium 1.9 (1.8-2.4) mg/dl Total Bilirubin 0.6 (0.2-1) mg/dl AST 37 (15-37) U/L ALT 68 (12-78) U/L Alkaline Phosphatase 65 (45-117) U/L Total Creatine Kinase 97 (39-308) U/L Troponin I < 0.015 (0-0.045) ng/ml Total Protein 5.7 L (6.4-8.2) gm/dl Albumin 3.1 L (3.4-5.0) gm/dl Globulin 2.6 (2.5-4.0) gm/dl Albumin/Globulin Ratio 1.2 (0.9-2) TSH 2.080 (0.300-4.500) uIu/ml Specimen Hemolysis Urine Color Urine Appearance (Clear) Urine pH (4.5-7.5) Ur Specific [place] (1.000-1.030) Urine Protein (Negative) Urine Glucose (UA) (Negative) Urine Ketones (Negative) Urine Blood (Negative) Urine Nitrite (Negative) Urine Bilirubin (Negative) Urine Urobilinogen (Negative) Ur Leukocyte Esterase (Negative) Urine WBC (Auto) (0-5) /hpf Urine RBC (Auto) (0-4) /hpf U Hyaline Cast (Auto) (0-5) /lpf U Epithel Cells (Auto) (0-5) /lpf Urine Bacteria (Auto) (Negative) Urine Sperm (None Prsent) COVID-19 Eval Order SARS-CoV-2 (PCR) (Negative) Influenza Type A (PCR) (Neg) Influenza Type B (PCR) (Neg) RSV (RT-PCR) (Neg) Administered Medications Acetaminophen (Acetaminophen 325 Mg Tab) 650 mg PO Q6H PRN PRN Reason: Fever Stop: 06/26/20 20:52 Last Admin: 05/27/20 21:06 Dose: 650 mg Documented by: [id number] Potassium Phosphate 21 mmol/ (Sodium Chloride) 507 mls @ 88 mls/hr IV ONE ONE Stop: 05/27/20 22:15 Last Admin: 05/27/20 16:18 Dose: 88 mls/hr Documented by: [id number] Discontinued Medications Sodium Chloride (Nss) 500 mls @ 999 mls/hr IV .Q31M MANJINDER Stop: 05/27/20 14:45 Last Infusion: 05/27/20 15:18 Dose: 0 mls/hr Documented by: [id number] Admin: 05/27/20 14:43 Dose: 999 mls/hr Documented by: [id number] Methylprednisolone 1,000 mg/ (Dextrose) 266 mls @ 266 mls/hr IV NOW STA Stop: 05/27/20 17:17 Last Infusion: 05/27/20 17:53 Dose: 0 mls/hr Documented by: [id number] Admin: 05/27/20 16:51 Dose: 266 mls/hr Documented by: [id number] Potassium Phosphate (Potassium Phos 3 Mmol/1 Ml Infusion) 21 mmol IV NOW STA Stop: 05/27/20 16:03 Last Admin: 05/27/20 16:24 Dose: Not Given Documented by: [id number] Imaging Data Radiologist's Impression: XR chest 1V portable HISTORY: 44 years-old Male weakness acute weakness COMPARISON: Chest radiograph 04/26/2020 TECHNIQUE: Portable FINDINGS: Cardiomediastinal and hilar silhouettes are within normal limits. No pneumothorax, pleural effusion, airspace consolidation or overt pulmonary edema. Bones of the chest appear grossly intact. IMPRESSION: No acute process. Discharge Plan Visit Data Chief Complaint: Leg Weakness, Bilateral ED Provider: Eris Godoy Discharge Problem: Weakness, Hypophosphatemia, Diarrhea, Exacerbation of multiple sclerosis Patient Disposition: Admitted As Inpatient Condition: Fair Discharge Instructions Interventions: ED Discharge Assessment Last Done: 05/27/20 18:24 Discharge Problem: Diarrhea Qualifiers: Diarrhea type: unspecified type Qualified Code(s): R19.7 - Diarrhea, unspecified
[2020-05-27] MEDS ORDERED: SODIUM CHLORIDE 0.9% 500 ML IV SCH (14:15)
[2020-05-27 14:48] LABS: Basophils # (auto) 0.01 K/uL (0-0.2); Basophils % (auto) 0.1 %; Eosinophils # (auto) 0.04 K/uL (0-0.5); Eosinophils % (auto) 0.6 %; Hematocrit (blood only) 36.8 % (42-52); Immature Granulocytes # (auto) 0.02 K/uL (0.00-0.02); Immature Granulocytes % (auto) 0.3 %; Lymphocytes # (auto) 0.64 K/uL (1.2-3.4); Lymphocytes % (auto) 9.2 %; Mean Corpuscular Hemoglobin 32.8 pg (25-34); Mean Corpuscular Hgb Conc 35.3 g/dL (32-36); Mean Corpuscular Volume 92.9 fL (80-100); Mean Platelet Volume 9.9 fL (7.4-10.4); Monocytes # (auto) 0.85 K/uL (0.11-0.59); Monocytes % (auto) 12.2 %; Neutrophils # (auto) 5.39 K/uL (1.4-6.5); Neutrophils % (auto) 77.6 %; Platelet Count 227 K/uL (130-400); RDW Standard Deviation 41.1 fL (36.4-46.3); Red Blood Count 3.96 M/uL (4.7-6.1); White Blood Count 6.95 K/uL (4.8-10.8)
[2020-05-27 14:52] LABS: Appearance Urine Turbid (Clear); Bacteria Urine Automated Negative (Negative); Bilirubin Urine Negative (Negative); Blood Urine Negative (Negative); Color Urine Yellow; Glucose Urine UA Negative (Negative); Ketones Urine Negative (Negative); Leukocyte Esterase Urine Negative (Negative); Nitrite Urine Negative (Negative); RBC Urine Automated 0-4 /hpf (0-4); Specific Gravity Urine 1.015 (1.000-1.030); Urobilinogen Urine Negative (Negative); pH Urine 8.5 (4.5-7.5)
[2020-05-27 14:54] LABS: Protein Urine Trace (Negative)
--- NOTE | 2020-05-27 14:54 | XRay Report ---
XR chest 1V portable HISTORY: 44 years-old Male weakness acute weakness COMPARISON: Chest radiograph 04/26/2020 TECHNIQUE: Portable FINDINGS: Cardiomediastinal and hilar silhouettes are within normal limits. No pneumothorax, pleural effusion, airspace consolidation or overt pulmonary edema. Bones of the chest appear grossly intact. IMPRESSION: No acute process. ACT 112: Negative or not required by law. The above report was generated using voice recognition software. It may contain grammatical, syntax o r spelling errors. Electronically signed by: Gideon Costello M.D. 05/27/2020 2:53 PM
[2020-05-27 15:02] LABS: Sperm Urine Present (None Prsent)
[2020-05-27 15:09] LABS: Influenza A virus by PCR Negative (Neg); Influenza B virus by PCR Negative (Neg); RSV by PCR Negative (Neg); SARS CoV2 RNA(COVID-19) InHosp NEGATIVE (Negative)
[2020-05-27 15:17] LABS: Alanine Aminotransferase 68 U/L (12-78); Albumin Level 3.1 gm/dl (3.4-5.0); Aspartate Aminotransferase 37 U/L (15-37); BUN Creatinine Ratio 10.4 (10-20); Blood Urea Nitrogen 11 mg/dl (7-18); Calcium 9.9 mg/dl (8.5-10.1); Carbon Dioxide 23 mmol/L (21-32); Chloride 111 mmol/L (98-107); Creatinine Clr Calc Pharmacy 109.5 ml/min; Est GFR (African American) 100.5; Est GFR (Non-African American) 86.7; Glucose 114 mg/dl (70-99); Magnesium 1.9 mg/dl (1.8-2.4); Potassium 3.5 mmol/L (3.5-5.1); Sodium 142 mmol/L (136-145)
[2020-05-27 15:45] LABS: Albumin Globulin Ratio 1.2 (0.9-2); Alkaline Phosphatase 65 U/L (45-117); Bilirubin,Total 0.6 mg/dl (0.2-1); Globulin 2.6 gm/dl (2.5-4.0); Phosphorus 1.2 mg/dl (2.5-4.9); Total Protein 5.7 gm/dl (6.4-8.2); Troponin I < 0.015 ng/ml (0-0.045)
[2020-05-27] MEDS ORDERED: POTASSIUM PHOS 3 MMOL/1 ML INFUSION IV STA (16:02)
[2020-05-27] MEDS ORDERED: methylPREDNISolone 1,000 MG in DEXTROSE 5% 250 ML IV STA (16:18)
[2020-05-27] MEDS ORDERED: POTASSIUM PHOSPHATE 21 MMOL in SODIUM CHLORIDE 0.9% 500 ML IV ONE (16:30)
--- NOTE | 2020-05-27 17:27 | History & Physical Report ---
Date of Service May 27, 2020 Assessment & Plan (1) Multiple sclerosis exacerbation: (2) Weakness: Patient presented to the ED with increased weakness from baseline and diarrhea. Patient has history of MS and does have recent history of MS flare. The patient has had diarrhea x 1 day which could be contributing to the weakness, but it sounds like this started prior to the diarrhea. He has had poor PO intake at home- likely contributing as well. Neurology consultation- Dr. Olivares aware. Recommended Solu-Medrol 1 g x 1 dose to start. PT/OT Patient likely will need inpatient rehab again. CM consulted Add on CK level with 12-14 hours of laying in bed unable to get up to ensure no signs of rhabdo (3) Hypophosphatemia: (4) Diarrhea: Patient with new onset severe diarrhea. Stool culture, C Diff, Giardia studies ordered. Hypophosphatemia. Started replacement in the ED. Repeat CBC, BMP, Calcium, Mag, and Phos in AM Regular diet as tolerated. Encourage PO intake (5) DVT prophylaxis: SCDs Heparin Q8h History of Present Illness Chief Complaint: Weakness Primary Care Provider: NO PCP Patient is a 44 yo male with history of MS who presented to the ED with concern of severe weakness and uncontrolled diarrhea. He notes that he has been prog ressively more weak than his baseline over the past 2 weeks. He finished a long tapering course of prednisone prior to his weakness progressing. He lives with his father and brother who found him this morning completely soiled in his bed, unable to get up for about 12 hours. The patient states that he hasn't slept for about 1 week because he was afraid that if he fell asleep, he would soil himself . The diarrhea is new as of yesterday. He has been unable to control it. He hasn't been eating well. Also for fear of moving his bowels without getting to the bathroom. He notes chronic LLE spasticity and LLE/LUE weakness chronically. He feels weak all over today though which is unusual for him. He typically is able to take care of himself for the most part. He was admitted to [facility] for rehab about 1 month ago. He stayed for 2 weeks and was discharged home. Since presentation here, his WBC count was normal. He has mild anemia. Renal function intact. Phosphorus very low at 1.2. Trop negative. TSH within norm. UA unrevealing other than concentrated. COVID Negative. CXR negative. The ED was in contact with Dr. Olivares from Neurology who recommended Solu- Medrol 1 g x 1 dose. Patient was given this. Allergies Allergy/AdvReac Type Severity Reaction Status Date / Time No Known Allergies Allergy Verified 05/27/20 14:18 Home Medications Medication Instructions Recorded Confirmed Type No Known Home Medications 05/27/20 05/27/20 History Past Med/Surg History Medical History (Updated 05/27/20 @ 17:34 by Quin Doherty PA-C) Chronic pain syndrome Hypercalcemia Multiple sclerosis Obstructive uropathy 2/ renal stone, caused RUBI, pt admitted for this and hypercalcemia 05/2018 Seizure disorder Many years ago may have had single episode, pt was never treated for this, no reoccurrence. Surgical History History of cystoscopy WITH STENT PLACEMENT 06/14/18 [facility] Family History (Updated 05/27/20 @ 17:35 by Quin Doherty PA-C) Father Stroke Thyroid disorder Other Hypertension Kidney stones Social History (Updated 05/27/20 @ 17:36 by Quin Doherty PA-C) Smoking Status: Never smoker Cigarettes Per Day: 0; Second Hand Exposure: No; Do You Dip or Chew Tobacco: Yes (once in a while- chewing tobacco); Hx Alcohol Use: No Hx Substance Use: No Preferred Language: Russian Communication Ability: Effective Sports Development Officer Required: No Beliefs That Will Affect Care: None Current Living Situation: Parent and Family current occupational status: disabled Feels Safe at Home: Yes Assistive Devices: Slide Board, Special Shoe and Walker Review of Systems Review of Systems: All systems reviewed & are unremarkable except as noted in HPI & below Physical Exam Constitutional: well developed and well nourished; no acute distress Eyes: PERRL, conjunctivae normal, anicteric sclerae ENMT: external ear and nose normal, oropharynx normal Neck: trachea midline, no thyromegaly Respiratory: normal respiratory effort; no respiratory distress, no labored breathing, does not use accessory muscles and no cough Auscultation: lungs clear to auscultation bilaterally Cardiovascular: RRR, no murmur, no edema Gastrointestinal (Abdomen): normal bowel sounds, soft, nontender, no hepatosplenomegaly Musculoskeletal: Note weakness of the upper and lower body. LUE notably much weaker than RUE to testing. Patient is unable to sit up in bed because of weakness at this time. Note spasticity in the LLE during exam. Skin: no rashes, warm and dry Psychiatric: Orientation: alert and cooperative Affect: + irritable affect Results & Data Results & Data ([facility]) Vital Signs (Past 12 Hours) Vital Signs Temp Pulse Resp BP Pulse Ox 05/27/20 17:01 72 18 97 05/27/20 17:00 68 18 137/80 97 05/27/20 16:37 73 20 97 05/27/20 16:36 76 21 160/74 H 97 05/27/20 16:30 78 24 98 05/27/20 16:25 73 20 98 05/27/20 16:01 67 20 99 05/27/20 16:00 80 23 170/97 H 100 05/27/20 15:42 78 21 98 05/27/20 15:41 84 24 142/81 H 98 05/27/20 15:30 70 18 05/27/20 15:00 74 22 05/27/20 14:30 77 20 05/27/20 14:11 81 22 05/27/20 13:50 36.5 C 85 20 173/85 H 97 05/27/20 13:49 86 21 173/85 H Laboratory Results Laboratory Results - last 24 hr 05/27/20 05/27/20 05/27/20 14:15 14:15 14:35 WBC RBC Hgb Hct MCV MCH MCHC RDW Std Deviation RDW Coeff of Bret Plt Count MPV Immature Gran % (Auto) Neut % (Auto) Lymph % (Auto) [place] % (Auto) Eos % (Auto) Baso % (Auto) Neut # (Auto) Lymph # (Auto) [place] # (Auto) Eos # (Auto) Baso # (Auto) Immature Gran # (Auto) Sodium Potassium Chloride Carbon Dioxide Anion Gap BUN Creatinine Est Cr Clr Drug Dosing Est GFR ( Amer) Est GFR (Non-Af Amer) BUN/Creatinine Ratio Glucose Calcium Phosphorus Magnesium Total Bilirubin AST ALT Alkaline Phosphatase Total Creatine Kinase Troponin I Total Protein Albumin Globulin Albumin/Globulin Ratio TSH Specimen Hemolysis Urine Color Yellow Urine Appearance Turbid A Urine pH 8.5 H Ur Specific [place] 1.015 Urine Protein Trace H Urine Glucose (UA) Negative Urine Ketones Negative Urine Blood Negative Urine Nitrite Negative Urine Bilirubin Negative Urine Urobilinogen Negative Ur Leukocyte Esterase Negative Urine WBC (Auto) 1-5 Urine RBC (Auto) 0-4 U Hyaline Cast (Auto) 1-5 U Epithel Cells (Auto) 5-10 H Urine Bacteria (Auto) Negative Urine Sperm Present A COVID-19 Eval Order CovFluRsv at [facility] SARS-CoV-2 (PCR) NEGATIVE Influenza Type A (PCR) Negative Influenza Type B (PCR) Negative RSV (RT-PCR) Negative 05/27/20 05/27/20 14:36 14:36 WBC 6.95 RBC 3.96 L Hgb 13.0 L Hct 36.8 L MCV 92.9 MCH 32.8 MCHC 35.3 RDW Std Deviation 41.1 RDW Coeff of Bret 12.0 Plt Count 227 MPV 9.9 Immature Gran % (Auto) 0.3 Neut % (Auto) 77.6 Lymph % (Auto) 9.2 [place] % (Auto) 12.2 Eos % (Auto) 0.6 Baso % (Auto) 0.1 Neut # (Auto) 5.39 Lymph # (Auto) 0.64 L [place] # (Auto) 0.85 H Eos # (Auto) 0.04 Baso # (Auto) 0.01 Immature Gran # (Auto) 0.02 Sodium 142 Potassium 3.5 Chloride 111 H Carbon Dioxide 23 Anion Gap 8.0 BUN 11 Creatinine 1.03 Est Cr Clr Drug Dosing 109.5 Est GFR ( Amer) 100.5 Est GFR (Non-Af Amer) 86.7 BUN/Creatinine Ratio 10.4 Glucose 114 H Calcium 9.9 Phosphorus 1.2 L* Magnesium 1.9 Total Bilirubin 0.6 AST 37 ALT 68 Alkaline Phosphatase 65 Total Creatine Kinase 97 Troponin I < 0.015 Total Protein 5.7 L Albumin 3.1 L Globulin 2.6 Albumin/Globulin Ratio 1.2 TSH 2.080 Specimen Hemolysis Urine Color Urine Appearance Urine pH Ur Specific [place] Urine Protein Urine Glucose (UA) Urine Ketones Urine Blood Urine Nitrite Urine Bilirubin Urine Urobilinogen Ur Leukocyte Esterase Urine WBC (Auto) Urine RBC (Auto) U Hyaline Cast (Auto) U Epithel Cells (Auto) Urine Bacteria (Auto) Urine Sperm COVID-19 Eval Order SARS-CoV-2 (PCR) Influenza Type A (PCR) Influenza Type B (PCR) RSV (RT-PCR) Diagnostic Findings CXR: IMPRESSION: No acute process. Supervising Physician Co-Signing Physician Notes I saw this patient with the physician assistant wrestling coach, I participated in the history, physical, review of systems, and physical exam. I reviewed the medications with the patient and the physician assistant wrestling coach and helped reconcile the medications. I helped take a detailed family and social history as well. I formulated the assessment and plan personally with the physician assistant wrestling coach and went over it with the patient. ROS-No Headache, No Visual Changes, No Nausea, No Vomiting, No Fever, No Chills, No Neck Pain or Stiffness, No Chest Pain, No Palpitations, No SOB, No SHEIKH, No Cough, No Sputum, No Wheezing, No Abdominal Pain, Positive Diarrhea, No He matemesis, No Hemoptysis, No Unexpected Weight Loss, No Flank pain, No Melena, No Hematochezia, No Frequency, No Urgency, No Burning, No Hematuria, No Rashes, No Diaphoresis. Appetite is Normal Physical Exam Gen-AAO x 3, NAD, Afebrile Head-NCAT, EOMI, PERRLA, Anicteric Sclera, No Posterior Pharyngeal Erythema Neck-Supple, No JVD, No Thyromegaly, No Masses, No LAD, No Bruits Lungs-Clear to Auscultation Bilaterally, No Rales, No Rhonchi, No Wheezing, No Crepitus Chest-No S4, +S1, +S2, No S3, No Murmurs, No Rubs, No Gallops, No Ectopy Abdomen-Soft, Bowel Sounds Present, Non Tender, Non Distended, No Hepatomegaly, No Splenomegaly, No Palpable Masses, No Rebound, No Rigidity, No Guarding Musculoskeletal-Full Range of Motion Bilaterally, No CVAT Extremities-No Cyanosis, No Clubbing, No Edema Nuero-Cranial Nerves II-XII grossly intact, weak LEs L>>R Psych-Normal Mood
[2020-05-27 17:31] LABS: Creatine Kinase 97 U/L (39-308)
[2020-05-27] MEDS ORDERED: ONDANSETRON INJ 2 MG/ML 2 ML VIAL IV PRN (19:08)
[2020-05-27] MEDS ORDERED: CHOLESTYRAMINE LIGHT 4 GM PKT PO PRN (19:08)
[2020-05-27] MEDS: ACETAMINOPHEN 325 MG TAB PO PRN (21:06)
[2020-05-27] MEDS: HEPARIN SOD 5,000 UNIT/0.5 ML VIAL SQ SCH (22:43)
[2020-05-28] MEDS: ACETAMINOPHEN 325 MG TAB PO PRN ×2 (03:04→16:59)
[2020-05-28] MEDS: HEPARIN SOD 5,000 UNIT/0.5 ML VIAL SQ SCH ×3 (05:27→21:16)
[2020-05-28 06:20] LABS: Hematocrit (blood only) 37.3 % (42-52); Mean Corpuscular Hemoglobin 32.4 pg (25-34); Mean Corpuscular Hgb Conc 34.9 g/dL (32-36); Mean Platelet Volume 10.3 fL (7.4-10.4); Platelet Count 203 K/uL (130-400); RDW Coefficient of Variation 11.9 % (11.5-14.5); RDW Standard Deviation 40.3 fL (36.4-46.3); Red Blood Count 4.01 M/uL (4.7-6.1); White Blood Count 11.57 K/uL (4.8-10.8)
[2020-05-28 06:51] LABS: BUN Creatinine Ratio 9.8 (10-20); Calcium 9.6 mg/dl (8.5-10.1); Creatinine Clr Calc Pharmacy 104.4 ml/min; Est GFR (African American) 94.9; Est GFR (Non-African American) 81.9; Magnesium 1.9 mg/dl (1.8-2.4); Potassium 3.7 mmol/L (3.5-5.1)
[2020-05-28 07:34] LABS: Phosphorus 2.2 mg/dl (2.5-4.9)
[2020-05-28] MEDS: FLUoxetine HCL 10 MG CAP PO SCH (08:27)
--- NOTE | 2020-05-28 12:01 | Hospitalist Progress Note ---
Date of Service May 28, 2020 Assessment & Plan (1) Multiple sclerosis exacerbation: (2) Weakness: Patient presented with worsening extremity weakness along with diarrhea he does have history of multiple sclerosis. Today he reports diarrhea is improved. Review of system is mainly negative except for left lower extremity weakness. Reports he is not back to his baseline yet. Appetite is improved now. Awaiting neurology input. Continue Solu-Medrol. Continue to work with PT/OT. CK of 97. (3) Hypophosphatemia: (4) Diarrhea: Patient with new onset severe diarrhea. C diff has been negative. stool cultures/giradia is pending. Hypophosphorous: repleted (5) DVT prophylaxis: SCDs Heparin Q8h Admission and Anticipated Discharge Date Admission Date: May 27, 2020 Subjective Patient reports he is doing okay but is about the same. He is currently not back to his baseline. Usually he can get out of the bed and move to his wheelchair but continues to have worsening left lower extremity weakness that has not improved since admission. Patient denies any chest pain, shortness of breath, abdominal pain, diarrhea or dysuria. Denies any visual changes. Rest of the review of system is negative. Review of Systems Review of Systems: All systems reviewed & are unremarkable except as noted in HPI & below Physical Exam Physical Exam: General: A&Ox3 HENT: NCAT, MMM, EOMI Eyes: PERRLA Neck: Supple, normal range of motion CVS: normal rate and rhythm Resp: b/l good breath sounds Abdomen: Soft, ND/NT, +BS Extremities: No c/c/e Neuro: face symmetric, LLE weakness>RLE Skin: warm and dry, no rashes/lesions/errythema MSK: normal ROM, no joint swelling/erythema Results & Data Results & Data ([facility]) Vital Signs (Past 12 Hours) Vital Signs Temp Pulse Resp BP Pulse Ox 05/28/20 07:39 36.6 C 75 18 137/77 96
--- NOTE | 2020-05-28 12:18 | Electrocardiogram Report ---
Test Reason : Blood Pressure : / mmHG Vent. Rate : 075 BPM Atrial Rate : 075 BPM P-R Int : 150 ms QRS Dur : 100 ms QT Int : 370 ms P-R-T Axes : 061 058 055 degrees QTc Int : 413 ms Normal sinus rhythm Incomplete right bundle branch block Borderline ECG When compared with ECG of 26-APR-2020 19:26, No significant change was found Confirmed by Pola Flynn ([id number]) on 05/28/2020 12:18:16 PM Referred By: REFERRED SELF Confirmed By:Pola Flynn
[2020-05-28] MEDS: POT PHOSPHATE MONOBASIC W/ SOD TAB PO SCH ×2 (15:00→21:14)
--- NOTE | 2020-05-28 15:59 | Neurology Consultation ---
Date of Consultation May 28, 2020 Assessment & Plan (1) Weakness: 1. appears to be pseudo exacerbation of MS flare 2. IV steroids 1g given would not continue 3. PT/OT for discharge needs 4. MRI brain, C T spine were done on last admission and reviewed. 5. will need follow up in our office in 4-6 weeks after discharge for further treatment of MS with Terra Esch 6. spastic LE Tizanidine 2 mg BID for now may increase after 5-7 days if needed. Present on Admission?: Yes (2) Diarrhea: 1. chronic diarrhea - no c diff will need further work up 2. possible work up for non infectious causes Present on Admission?: Yes Supervising Physician Co-Signing Physician Notes I have seen and discussed above patient with Dr Rachel Olivares, neurology Pt seen and examined recent admission for pseudoflare ms, tx with IV steroid, prednisone dc several days ago. Increased weakness bl LE, no back pain or change in continence. exam notable for nystagmus on left. LUE 3+/5 rue 5/5, rle 3+ marked increased bl le tone. Impression: I suspect decreased function ability is likely due to spasticity. Start tizanidine, monitor for orthostasis, monitor LFT. I dont think pt needs steroids again. Will likely need rehab with a focus on teaching family to manage care, such as ways to change pt while he is in bed. FU with neurology post dc. RAMAN Olivares MD History of Present Illness Reason for Consultation: diarrhea possible MS flare Requesting Physician: Jose Martinez MD Attending Physician: Jose Martinez MD History of Present Illness Mazin is a 44 year old male with PMH- MS who presented to the ED with concern of severe weakness and uncontrolled diarrhea. He has gotten progressively more weak than his baseline over the past 2 weeks. He finished a long tapering course of prednisone prior to his weakness progressing. He lives with his father and brother who found him this morning completely soiled in his bed, unable to get up for about 12 hours. He hasn't slept for about 1 week because he was afraid that if he fell asleep, he would soil himself. The diarrhea started about 1 week ago. he hasn't been eating much because he is afraid of moving his bowels without getting to the bathroom. He has chronic LLE spasticity and LLE/LUE weakness chronically. He feels weak all over today though which is unusual for him. He typically is able to take care of himself for the most part. He was admitted to [facility] for rehab about 1 month ago. He stayed for 2 weeks and was discharged home with no episodes of diarrhea while at [facility]. He has chronic left LE weakness but now the right is weaker and it is painful to move. He denies any falls with injury, N, V, SOB, CP. Allergies Allergy/AdvReac Type Severity Reaction Status Date / Time No Known Allergies Allergy Verified 05/27/20 14:18 Home Medications Medication Instructions Recorded Confirmed Type No Known Home Medications 05/27/20 05/27/20 History Patient History Medical History Chronic pain syndrome Hypercalcemia Multiple sclerosis Obstructive uropathy 2/ renal stone, caused RUBI, pt admitted for this and hypercalcemia 05/2018 Seizure disorder Many years ago may have had single episode, pt was never treated for this, no reoccurrence. Surgical History History of cystoscopy WITH STENT PLACEMENT 06/14/18 [facility] Family History (Updated 05/27/20 @ 17:35 by Quin Doherty PA-C) Father Stroke Thyroid disorder Other Hypertension Kidney stones Social History Smoking Status: Never smoker Cigarettes Per Day: 0; Second Hand Exposure: Yes; Do You Dip or Chew Tobacco: No; Tobacco Cessation Education Requested by Patient: No Hx Alcohol Use: Yes (social drinker) Alcohol type: beer Hx Substance Use: No Preferred Language: Argentine Communication Ability: Effective Rn Pain Management Required: No Beliefs That Will Affect Care: None Current Living Situation: Family Current Living Situation Comment: brother and father at home current occupational status: disabled Other Information That Helps Us Care for You: Yes (R side weaker than L side= baseline) Feels Safe at Home: Yes Safety Concerns: Feels Safe At This Time Assistive Devices: Brace/Splint/Immobilizer and Wheelchair Assistive Devices Comment: lift at home Physical Exam Physical Exam: Physical Exam: Constitutional: appearance ill appearing Ears, Nose, Mouth and Throat: mucous membranes moist, no injection and skin normal, eyes normal Cardiovascular: normal S-1 and S-2 and regular rate and rhythm Respiratory: course breath sounds Musculoskeletal: no peripheral edema Skin: no stigmata of neurocutaneous disease noted and normal and intact Eyes: extraocular muscles intact (EOMI) and pupils equal, round and reactive to light (PERRL) NEUROLOGIC EXAMINATION: Mental status: Alert and interactive Oriented to full date and location Oriented to person Speech fluent with no evidence of aphasia Cranial Nerves smile eye brow raise symmetric Reflexes: UE bilaterally 2/5, right LE hyper reflexic, downgoing toes, left decreased knee jerk ankle jerk Sensory: intact to light and cool touch Coordination: finger to nose on right unable to lift to finger on left. Gait/Stance: Posture lying in bed Motor: unable to lift arm on left Strength: hand belt cleaner biceps triceps bilaterally 4+/5, deltoid right 5/5, left 3/5, hip flex on right 4+/5, left 0/5 Results & Data ([facility]) Vital Signs (Past 12 Hours) Vital Signs Temp Pulse Resp BP Pulse Ox 05/28/20 15:43 36.7 C 111 H 16 157/74 H 94 05/28/20 07:39 36.6 C 75 18 137/77 96 Laboratory Results Abnormal lab results 05/28/20 05/28/20 Range/Units 05:42 05:42 WBC 11.57 H (4.8-10.8) K/uL RBC 4.01 L (4.7-6.1) M/uL Hgb 13.0 L (14.0-18.0) g/dL Hct 37.3 L (42-52) % Chloride 112 H (98-107) mmol/L Carbon Dioxide 20 L (21-32) mmol/L BUN/Creatinine Ratio 9.8 L (10-20) Glucose 161 H (70-99) mg/dl Phosphorus 2.2 L D (2.5-4.9) mg/dl Diagnostic Findings previous images reviewed from last hospitalization (1) Diarrhea Diarrhea type: unspecified type Qualified Code(s): R19.7 - Diarrhea, unspecified
[2020-05-28] MEDS ORDERED: methylPREDNISolone 1,000 MG in DEXTROSE 5% 250 ML IV SCH (18:00)
[2020-05-28] MEDS: tiZANidine HCL 4 MG TABLET PO SCH (21:15)
[2020-05-29] MEDS: HEPARIN SOD 5,000 UNIT/0.5 ML VIAL SQ SCH ×3 (05:27→22:14)
[2020-05-29] MEDS: FLUoxetine HCL 10 MG CAP PO SCH (07:29)
[2020-05-29] MEDS: ACETAMINOPHEN 325 MG TAB PO PRN (07:30)
[2020-05-29] MEDS: tiZANidine HCL 4 MG TABLET PO SCH ×2 (07:30→19:30)
[2020-05-29 07:52] LABS: Basophils # (auto) 0.01 K/uL (0-0.2); Basophils % (auto) 0.1 %; Eosinophils # (auto) 0.01 K/uL (0-0.5); Eosinophils % (auto) 0.1 %; Hematocrit (blood only) 38.5 % (42-52); Hemoglobin 13.3 g/dL (14.0-18.0); Immature Granulocytes # (auto) 0.05 K/uL (0.00-0.02); Immature Granulocytes % (auto) 0.5 %; Lymphocytes # (auto) 1.82 K/uL (1.2-3.4); Lymphocytes % (auto) 18.2 %; Mean Corpuscular Hemoglobin 32.4 pg (25-34); Mean Corpuscular Hgb Conc 34.5 g/dL (32-36); Mean Corpuscular Volume 93.7 fL (80-100); Mean Platelet Volume 10.3 fL (7.4-10.4); Monocytes # (auto) 0.73 K/uL (0.11-0.59); Monocytes % (auto) 7.3 %; Neutrophils % (auto) 73.8 %; Platelet Count 182 K/uL (130-400); RDW Coefficient of Variation 12.1 % (11.5-14.5); Red Blood Count 4.11 M/uL (4.7-6.1); White Blood Count 10.02 K/uL (4.8-10.8)
[2020-05-29 08:24] LABS: Albumin Level 3.2 gm/dl (3.4-5.0); BUN Creatinine Ratio 15.6 (10-20); Calcium 9.7 mg/dl (8.5-10.1); Creatinine Clr Calc Pharmacy 101.6 ml/min; Est GFR (African American) 91.8; Est GFR (Non-African American) 79.2; Potassium 3.6 mmol/L (3.5-5.1)
[2020-05-29 08:26] LABS: Albumin Globulin Ratio 1.1 (0.9-2); Bilirubin,Total 0.4 mg/dl (0.2-1); Globulin 2.8 gm/dl (2.5-4.0)
[2020-05-29] MEDS: POT PHOSPHATE MONOBASIC W/ SOD TAB PO SCH ×2 (08:43→19:30)
--- NOTE | 2020-05-29 14:52 | Hospitalist Progress Note ---
Date of Service May 29, 2020 Assessment & Plan (1) Multiple sclerosis exacerbation: (2) Weakness: Patient presented with worsening extremity weakness along with diarrhea he does have history of multiple sclerosis. Overall continues to do okay. Appreciate neurology input. Believed to be pseudoexhibition of MS flare. Steroids have been discontinued. Left lower extremity weakness is improved for persists. Patient was persistent that he cannot go home today because he is not ready yet. Reports he does not feel that he is back to his baseline yet. Currently on tizanidine 2 mg twice daily, can increase out of 5 to 7 days if needed for LE spasm. (3) Hypophosphatemia: (4) Diarrhea: Patient with new onset severe diarrhea. C diff has been negative. stool cultures/giradia is pending. Hypophosphorous: resolved (5) DVT prophylaxis: SCDs Heparin Q8h Admission and Anticipated Discharge Date Admission Date: May 27, 2020 Subjective Patient is doing okay this morning. Reports diarrhea is resolved. States he is lower extremity weakness is improving but still not back to his baseline. Still she is not ready for discharge because he will not be able to function at home with his current mental status. Denies any chest pain or abdominal pain. Denies any nausea or vomiting. Denies any dysuria. Physical Exam Physical Exam: General: A&Ox3 HENT: NCAT, MMM, EOMI Eyes: PERRLA Neck: Supple, normal range of motion CVS: normal rate and rhythm Resp: b/l good breath sounds Abdomen: Soft, ND/NT, +BS Extremities: No c/c/e Neuro: face symmetric, LLE weakness>RLE Skin: warm and dry, no rashes/lesions/errythema MSK: normal ROM, no joint swelling/erythema Results & Data Results & Data ([place]) Vital Signs (Past 12 Hours) Vital Signs Temp Pulse Resp BP Pulse Ox 05/29/20 11:00 131/69 05/29/20 07:35 36.5 C 80 14 162/79 H 97
--- NOTE | 2020-05-29 16:43 | Neurology Progress Note ---
Date of Service May 29, 2020 Assessment & Plan (1) Weakness: 1. appears to be pseudo exacerbation of MS flare 2. IV steroids 1g given would not continue 3. PT/OT for discharge needs 4. MRI brain, C T spine were done on last admission and reviewed. 5. will need follow up in our office in 4-6 weeks after discharge for further treatment of MS with Terra Morgan 6. spastic LE Tizanidine 2 mg BID for now may increase after 5-7 days if needed. - he feels this is helping 7. urology consult for bladder issues if not already seen. (2) Diarrhea: 1. chronic diarrhea - no c diff will need further work up 2. possible work up for non infectious causes Admission and Anticipated Discharge Date Admission Date: May 27, 2020 Supervising Physician Co-Signing Physician Notes I have seen and discussed above patient with Dr Rachel Olivares, neurology Patient seen and examined. He has marked improvement in strength in right lower extremity as well as less spasticity. Left leg remains unchanged in terms of spasticity. On exam right lower extremities greater than antigravity with markedly improved tone tone is still increased mildly left lower extremity minimal movement marked increase in tone. 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 Most recent decline I believe was related to spasticity and possibly diarrhea. Less than 1 month ago the patient was treated with oral and intravenous steroids. His MRI of the brain did not show any acute abnormality or enhancing lesions. I believe the patient should be discharged to rehabilitation see above regarding instructions of tizanidine will need repeat liver function testing. The patient's father and family should be taught how to change the sheets while the patient is in bed I would also recommend a hospital bed at home. Additionally recommend urology consult for nocturnal incontinence. He should see Rachel Rincon or one of our providers in follow-up. She plans to refer him to Dr. Terra Morgan the multiple sclerosis specialist and our practice. He apparently briefly had been on Ocrevus in the past and stopped using it when he became homeless. We will consult with her whether or not she would recommend restarting that. Rachel Olivares MD Oscar Retana is a 44 year old male with PMH- MS who presented to the ED with concern of severe weakness and uncontrolled diarrhea. He has gotten progressively more weak than his baseline over the past 2 weeks. He finished a long tapering course of prednisone prior to his weakness progressing. He lives with his father and brother who found him this morning completely soiled in his bed, unable to get up for about 12 hours. He hasn't slept for about 1 week because he was afraid that if he fell asleep, he would soil himself. The diarrhea started about 1 week ago. he hasn't been eating much because he is afraid of moving his bowels without getting to the bathroom. He has chronic LLE spasticity and LLE/LUE weakness chronically. He feels weak all over today though which is unusual for him. He typically is able to take care of himself for the most part. He was admitted to [facility] for rehab about 1 month ago. He stayed for 2 weeks and was discharged home with no episodes of diarrhea while at [facility]. He has chronic left LE weakness. He feels the Zanflex is helping with the spasms his right leg is not as painful today. He have a loss of urine again today when napping. He called [facility] and hopefully will be accepted back there for therapy which he feels did help. He denies any falls with injury, N, V, SOB, CP. Review of Systems Review of Systems: All systems reviewed & are unremarkable except as noted in HPI & below Physical Exam Physical Exam: Physical Exam: Constitutional: appearance ill appearing Ears, Nose, Mouth and Throat: mucous membranes moist, no injection and skin normal, eyes normal Cardiovascular: normal S-1 and S-2 and regular rate and rhythm Respiratory: course breath sounds Musculoskeletal: no peripheral edema Skin: no stigmata of neurocutaneous disease noted and normal and intact Eyes: extraocular muscles intact (EOMI) and pupils equal, round and reactive to light (PERRL) NEUROLOGIC EXAMINATION: Mental status: Alert and interactive Oriented to full date and location Oriented to person Speech fluent with no evidence of aphasia Cranial Nerves smile eye brow raise symmetric Reflexes: UE bilaterally 2/5, right LE hyper reflexic, downgoing toes, left decreased knee jerk ankle jerk Sensory: intact to light and cool touch Coordination: finger to nose on right unable to lift to finger on left. Gait/Stance: Posture lying in bed Motor: unable to lift arm on left Strength: hand quill cleaner biceps triceps bilaterally 4+/5, deltoid right 5/5, left 3/5, hip flex on right 4+/5, left 0/5 Results & Data ([facility]) Vital Signs (Past 12 Hours) Vital Signs Temp Pulse Resp BP Pulse Ox 05/29/20 15:06 36.8 C 73 16 147/78 H 96 05/29/20 11:00 131/69 05/29/20 07:35 36.5 C 80 14 162/79 H 97 (1) Diarrhea Diarrhea type: unspecified type Qualified Code(s): R19.7 - Diarrhea, unspecified
[2020-05-30] MEDS: HEPARIN SOD 5,000 UNIT/0.5 ML VIAL SQ SCH ×2 (05:18→14:23)
[2020-05-30] MEDS: tiZANidine HCL 4 MG TABLET PO SCH (08:05)
[2020-05-30] MEDS: POT PHOSPHATE MONOBASIC W/ SOD TAB PO SCH (08:05)
[2020-05-30] MEDS: FLUoxetine HCL 10 MG CAP PO SCH (08:05)
--- NOTE | 2020-05-30 09:00 | Hospitalist Progress Note ---
Date of Service May 30, 2020 Assessment & Plan (1) Multiple sclerosis exacerbation: (2) Weakness: Patient presented with worsening extremity weakness along with diarrhea he does have history of multiple sclerosis. Overall continues to do okay. Appreciate neurology input. Believed to be pseudoexhibition of MS flare. Steroids have been discontinued. Left lower extremity weakness is improved. Currently on tizanidine 2 mg twice daily, can increase out of 5 to 7 days if needed for LE spasm. (3) Hypophosphatemia: (4) Diarrhea: Patient with new onset severe diarrhea. C diff has been negative. stool cultures/giradia is pending. Hypophosphorous: resolved (5) DVT prophylaxis: SCDs Heparin Q8h Labs checked ROS-No Headache, No Visual Changes, No Nausea, No Vomiting, No Fever, No Chills, No Neck Pain or Stiffness, No Chest Pain, No Palpitations, No SOB, No SHEIKH, No Cough, No Sputum, No Wheezing, No Abdominal Pain, Positive Diarrhea, No Hematemesis, No Hemoptysis, No Unexpected Weight Loss, No Flank pain, No Melena, No Hematochezia, No Frequency, No Urgency, No Burning, No Hematuria, No Rashes, No Diaphoresis. Appetite is Normal, Weakness LLE, but improved Physical Exam Gen-AAO x 3, NAD, Afebrile Head-NCAT, EOMI, PERRLA, Anicteric Sclera, No Posterior Pharyngeal Erythema Neck-Supple, No JVD, No Thyromegaly, No Masses, No LAD, No Bruits Lungs-Clear to Auscultation Bilaterally, No Rales, No Rhonchi, No Wheezing, No Crepitus Chest-No S4, +S1, +S2, No S3, No Murmurs, No Rubs, No Gallops, No Ectopy Abdomen-Soft, Bowel Sounds Present, Non Tender, Non Distended, No Hepatomegaly, No Splenomegaly, No Palpable Masses, No Rebound, No Rigidity, No Guarding Musculoskeletal-Full Range of Motion Bilaterally, No CVAT Extremities-No Cyanosis, No Clubbing, No Edema Nuero-Cranial Nerves II-XII grossly intact, weak LEs L>>R Psych-Normal Mood Admission and Anticipated Discharge Date Admission Date: May 27, 2020 Results & Data Results & Data ([facility]) Vital Signs (Past 12 Hours) Vital Signs Temp Pulse Resp BP Pulse Ox 05/30/20 07:46 36.5 C 69 16 144/96 H 97 05/29/20 23:09 37.1 C 69 16 132/80 95
--- NOTE | 2020-05-30 13:46 | Discharge Summary ---
Date of Service May 30, 2020 Admission HPI Per Admitting Provider Patient is a 44 yo male with history of MS who presented to the ED with concern of severe weakness and uncontrolled diarrhea. He notes that he has been progressively more weak than his baseline over the past 2 weeks. He finished a long tapering course of prednisone prior to his weakness progressing. He lives with his father and brother who found him this morning completely soiled in his bed, unable to get up for about 12 hours. The patient states that he hasn't slept for about 1 week because he was afraid that if he fell asleep, he would soil himself. The diarrhea is new as of yesterday. He has been unable to control it. He hasn't been eating well. Also for fear of moving his bowels without getting to the bathroom. He notes chronic LLE spasticity and LLE/LUE weakness chronically. He feels weak all over today though which is unusual for him. He typically is able to take care of himself for the most part. He was admitted to [facility] for rehab about 1 month ago. He stayed for 2 weeks and was discharged home. Since presentation here, his WBC count was normal. He has mild anemia. Renal function intact. Phosphorus very low at 1.2. Trop negative. TSH within norm. UA unrevealing other than concentrated. COVID Negative. CXR negative. The ED was in contact with Dr. Olivares from Neurology who recommended Solu- Medrol 1 g x 1 dose. Patient was given this. Admission Exam Per Admitting Provider Constitutional: well developed and well nourished; no acute distress Eyes: PERRL, conjunctivae normal, anicteric sclerae ENMT: external ear and nose normal, oropharynx normal Neck: trachea midline, no thyromegaly Respiratory: normal respiratory effort; no respiratory distress, no labored breathing, does not use accessory muscles and no cough Auscultation: lungs clear to auscultation bilaterally Cardiovascular: RRR, no murmur, no edema Gastrointestinal (Abdomen): normal bowel sounds, soft, nontender, no hepatosplenomegaly Musculoskeletal: Note weakness of the upper and lower body. LUE notably much weaker than RUE to testing. Patient is unable to sit up in bed because of weakness at this time. Note spasticity in the LLE during exam. Skin: no rashes, warm and dry Psychiatric: Orientation: alert and cooperative Affect: + irritable affect Principal Diagnosis (1) Multiple sclerosis exacerbation: (2) Weakness: (3) Hypophosphatemia: (4) Diarrhea: Discharge Exam See below Discharge Data Allergies Allergy/AdvReac Type Severity Reaction Status Date / Time No Known Allergies Allergy Verified 05/27/20 14:18 Consultations 05/27/20 16:32 ED Decision to Admit Stat 05/27/20 17:38 Consult Neurology Routine 05/27/20 19:08 Consult Neurology Routine Current Diagnoses Other disorders of phosphorus metabolism (05/27/20) Multiple sclerosis (05/27/20) Diarrhea, unspecified (05/27/20) Weakness (05/27/20) Encounter for prophylactic measures, unspecified (05/27/20) Allergies No Known Allergies Allergy (Verified 05/27/20 14:18) Height/Weight/Isolation Height 6 ft Weight 99.5 kg Chemistry 05/29/20 07:26 Sodium 145 Potassium 3.6 Chloride 116 H Carbon Dioxide 23 Anion Gap 6.0 BUN 17 D Creatinine 1.11 Glucose 104 H Microbiology 05/28/20 14:12 Stool Escherichia coli Shiga Toxins Test - Preliminary 05/28/20 14:12 Stool Stool Culture - Preliminary No Salmonella isolated to date, No Shigella isolated to date, No Campylobacter jejuni isolated to date. Hospital Course (1) Multiple sclerosis exacerbation: (2) Weakness: Patient presented with worsening extremity weakness along with diarrhea he does have history of multiple sclerosis. Overall continues to do okay. Appreciate neurology input. Believed to be pseudoexhibition of MS flare. Steroids have been discontinued. Left lower extremity weakness is improved. Currently on tizanidine 2 mg twice daily, can increase in 5 to 7 days if needed for LE spasm. DC to [facility] today (3) Hypophosphatemia: (4) Diarrhea: Patient with new onset severe diarrhea. C diff has been negative. stool cultures/giradia is pending. Hypophosphorous: resolved (5) DVT prophylaxis: Rehab today Labs checked ROS-No Headache, No Visual Changes, No Nausea, No Vomiting, No Fever, No Chills, No Neck Pain or Stiffness, No Chest Pain, No Palpitations, No SOB, No SHEIKH, No Cough, No Sputum, No Wheezing, No Abdominal Pain, Positive Diarrhea, No Hematemesis, No Hemoptysis, No Unexpected Weight Loss, No Flank pain, No Melena, No Hematochezia, No Frequency, No Urgency, No Burning, No Hematuria, No Rashes, No Diaphoresis. Appetite is Normal, Weakness LLE, but improved Physical Exam Gen-AAO x 3, NAD, Afebrile Head-NCAT, EOMI, PERRLA, Anicteric Sclera, No Posterior Pharyngeal Erythema Neck-Supple, No JVD, No Thyromegaly, No Masses, No LAD, No Bruits Lungs-Clear to Auscultation Bilaterally, No Rales, No Rhonchi, No Wheezing, No Crepitus Chest-No S4, +S1, +S2, No S3, No Murmurs, No Rubs, No Gallops, No Ectopy Abdomen-Soft, Bowel Sounds Present, Non Tender, Non Distended, No Hepatomegaly, No Splenomegaly, No Palpable Masses, No Rebound, No Rigidity, No Guarding Musculoskeletal-Full Range of Motion Bilaterally, No CVAT Extremities-No Cyanosis, No Clubbing, No Edema Nuero-Cranial Nerves II-XII grossly intact, weak LEs L>>R Psych-Normal Mood Total Time Total Time Spent Total Time Spent (In Minutes): 45 min Total Time Includes: Examination of the Patient, Discharge Planning, Medication Reconciliation and Communication With Other Providers Discharge Plan Discharge Items Patient Disposition: Transfer Inpatient Rehab Fac Reason For Visit: DIARRHEA, MS FLAIR Discharge Diagnosis: (1) Multiple sclerosis exacerbation: (2) Weakness: (3) Hypophosphatemia: (4) Diarrhea: Condition on Discharge: Fair Activity: Resume your previous activity Lifting: Gradually increase as tolerated Bathing: No limitations Sexual Activity: When tolerated Exercise/Sports: Gradually increase as tolerated Driving/Machine Use: No limitations Weightbearing: Full weightbearing Non-emergency contact: Primary Care Provider and Neurologist Call non-emergency contact if: you have any medication questions Follow-up/Referrals: PCP,NO [Primary Care Provider] - Diet: Regular Addtl Attending Provider Instructions: May increase Tizanidine dose to 4 mg BID in 4 more days Pending Studies at Discharge: No Stand-Alone Forms: My [employer] Skilled Items Patient informed of condition?: Yes DNR: No Discharge Level of Care: Acute rehab Communicable Disease: No Discharge Prognosis: Improving Lines: None Urinary Catheter: No Medications and DC Order Prescriptions: New tizanidine 4 mg Tablet 2 mg PO BID Qty: 60 RF: 0 No Action No Known Home Medications RF: 0 Discharge Orders: Discharge Order (Routine); Ordered 05/30/20 Ordered By: Krish Dunaway Admission Data Admit Date/Time: 05/27/20 17:33 Attending Provider: Krish Dunaway Admit Provider: Krish Dunaway Primary Care Provider: PCP,NO Other Providers: Rachel Olivares ; Krish Dunwaay ; [facility] ; [place] ; [facility]
== END 2020-05-30 16:18 | DRG 60 ==
LOC: ED 13:45 → 2W 17:33 → SUATTDRO 17:33 → 2W 18:24 → 3W 22:19

== ENCOUNTER 2020-07-26 22:06 | Inpatient (IN) ==
[2020-07-26] MEDS ORDERED: HYDROmorphone INJ 0.5 MG/0.5 ML SYR IV STA (23:23)
[2020-07-26 23:33] LABS: Basophils # (auto) 0.04 K/uL (0-0.2); Basophils % (auto) 0.6 %; Eosinophils # (auto) 0.09 K/uL (0-0.5); Eosinophils % (auto) 1.5 %; Hematocrit (blood only) 37.3 % (42-52); Hemoglobin 12.5 g/dL (14.0-18.0); Immature Granulocytes # (auto) 0.09 K/uL (0.00-0.02); Immature Granulocytes % (auto) 1.5 %; Lymphocytes # (auto) 1.44 K/uL (1.2-3.4); Lymphocytes % (auto) 23.3 %; Mean Corpuscular Hemoglobin 33.1 pg (25-34); Mean Corpuscular Hgb Conc 33.5 g/dL (32-36); Mean Corpuscular Volume 98.7 fL (80-100); Mean Platelet Volume 9.9 fL (7.4-10.4); Monocytes # (auto) 0.74 K/uL (0.11-0.59); Neutrophils # (auto) 3.77 K/uL (1.4-6.5); Neutrophils % (auto) 61.1 %; Platelet Count 261 K/uL (130-400); RDW Coefficient of Variation 13.8 % (11.5-14.5); RDW Standard Deviation 49.2 fL (36.4-46.3); Red Blood Count 3.78 M/uL (4.7-6.1); White Blood Count 6.17 K/uL (4.8-10.8)
[2020-07-26 23:41] LABS: Albumin Level 3.4 gm/dl (3.4-5.0); BUN Creatinine Ratio 9.9 (10-20); Calcium 9.6 mg/dl (8.5-10.1); Creatinine Clr Calc Pharmacy 98.9 ml/min; Est GFR (African American) 85.3 ml/min; Est GFR (Non-African American) 73.6 ml/min; Potassium 3.9 mmol/L (3.5-5.1)
[2020-07-26 23:47] LABS: Appearance Urine Clear (Clear); Bilirubin Urine Negative (Negative); Blood Urine Negative (Negative); Color Urine Yellow; Glucose Urine UA Negative (Negative); Ketones Urine Negative (Negative); Leukocyte Esterase Urine Negative (Negative); Nitrite Urine Negative (Negative); Protein Urine Negative (Negative); Specific Gravity Urine 1.004 (1.000-1.030); Urobilinogen Urine Negative (Negative); pH Urine 6.5 (4.5-7.5)
[2020-07-26 23:51] LABS: Albumin Globulin Ratio 1.1 (0.9-2); Bilirubin,Total 0.2 mg/dl (0.2-1); Globulin 3.2 gm/dl (2.5-4.0); Thyroid Stimulating Hormone 3.28 uIu/ml (0.300-4.500); Total Protein 6.6 gm/dl (6.4-8.2)
[2020-07-27 01:26] LABS: Phosphorus 2.6 mg/dl (2.5-4.9)
--- NOTE | 2020-07-27 05:25 | History and Physical Report ---
DATE OF ADMISSION: 07/27/2020 CHIEF COMPLAINT: Lower extremity pain and swelling. HISTORY OF PRESENT ILLNESS: This is a 44-year-old male with past medical history significant for multiple sclerosis. He says he is bed bound for the last 10 years and not taking any medication because he does not believe they are helping him, history of depression, who lives with his brother and father, presents with lower extremity swelling and pain and found to have DVT in the left lower extremity and possible cellulitis. He was here in the hospital in April.At that time it was initially thought to be MS flare, but later thought to be pseudoflare of MS. At that time, he was discharged to rehab. He says he was in rehabilitation for a few weeks. He says he can transfer himself from bed to the wheelchair. Denies any other complaints. Denies any headache, no blurred vision, no earache, no runny nose, no sore throat, no cough, no fever, no chills, no chest pain, no shortness of breath, no nausea, no vomiting, no abdominal pain, no diarrhea. He says he is somewhat constipated. Normal bladder movements. Currently resting comfortably and hemodynamically stable. ALLERGIES: No known drug allergies. PAST MEDICAL HISTORY: As mentioned above. PAST SURGICAL HISTORY: Right wrist fracture treated with cast. MEDICATIONS: Tizanidine 2-4 mg p.o. b.i.d. p.r.n., fluoxetine 10 mg p.o. a.m., Tylenol as needed. FAMILY HISTORY: Significant for father has thyroid disorder, paternal grandmother had diabetes. SOCIAL HISTORY: Lives with brother and father. No smoking, no alcohol, no drug use. REVIEW OF SYSTEMS: As per HPI. Rest of the review of systems negative. PHYSICAL EXAMINATION: GENERAL: The patient is of moderate build, not in acute distress. VITAL SIGNS: Temperature afebrile, pulse 72, respiratory rate 16, blood pressure 118/67, oxygen 97% on room air. HEENT: Pupils equal, round, and reactive to light. Oral mucosa moist. NECK: No JVD. No neck masses. CARDIOVASCULAR: S1, S2 heard, regular rate and rhythm, no murmur, no gallop. RESPIRATORY SYSTEM: Normal AP diameter. No accessory muscle use. No wheezing, no crackles. ABDOMEN: Soft, bowel sounds present, nontender. No distention. CENTRAL NERVOUS SYSTEM: Alert and oriented. Speech is clear, no facial droop. Moves extremities. EXTREMITIES: Bilateral lower extremities erythematous and swollen and warm to palpation. LABORATORY DATA: WBC 6.1, hemoglobin 12.5, hematocrit 37.3, platelets 361. Sodium 137, potassium 3.9, chloride 108, bicarbonate 23, BUN 12, creatinine 1.1, serum glucose 81, calcium 9.6, phosphorus 2.6, total bilirubin 0.2, AST 14, ALT 27, alkaline phosphatase 72, TSH 3.2. Urinalysis negative. SARS-CoV-2 PCR negative. IMAGING DATA: Venous Doppler,Left calf DVT involving one of 2 posterior tibial veins. EKG: Normal sinus rhythm with a rate of 79, incomplete right bundle branch block, no significant change was found. ASSESSMENT AND PLAN: This is a 44-year-old male with history of multiple sclerosis, who presents with lower extremity edema, swelling and found to have deep venous thrombosis. 1. deep venous thrombosis in the left lower extremity: Starting on Iv heparin for now. Can consider novel agent. 2. Possible cellulitis of lower extremity: Outpatient started on Bactrim. We will place him on IV Rocephin here and follow the response. 3. Multiple sclerosis: Not taking any medications. We will consult neurology. 4. Depression: Continue fluoxetine. 5. Deep venous thrombosis prophylaxis: On IV heparin. DISPOSITION: Admit to medical floor. PT and OT prior to discharge. Social service to help with discharge planning. Level 1 full code. MTDD
[2020-07-27] MEDS ORDERED: tiZANidine HCL 4 MG TABLET PO PRN (05:44)
[2020-07-27] MEDS ORDERED: cefTRIAXone SODIUM 1,000 MG in DEXTROSE 5% 50 ML IV SCH (05:44)
[2020-07-27] MEDS ORDERED: PNEUMOCOCCAL POLYSACCHARIDES 25 MCG/0.5 ML VIAL/SYR IM ONE (06:00)
[2020-07-27] MEDS: cefTRIAXone SODIUM 2,000 MG in DEXTROSE 5% 50 ML IV SCH (06:05)
--- NOTE | 2020-07-27 06:08 | Emergency Department Note ---
Impression & Plan Exacerbation of multiple sclerosis, Weakness, DVT (deep venous thrombosis) ED Provider Note NAME: JAD DICKINSON AGE: 44 SEX: M ARRIVES VIA: Ambulance INFORMANT: Patient ED PROVIDER(S): Any Elias DO CHIEF COMPLAINT: Left leg swelling PLAN: Disposition: Admitted to the [facility] service Condition: Stable MEDICAL DECISION MAKING: This is a 44-year-old male patient with a history of MS who presents to the emergency department with significant left leg swelling for the past 4 days. Patient notes overall weakness and decline in the past month after being admitted to [facility] for rehab. Patient has significant difficulty with moving his left leg and his left arm. He is not currently taking any medications for his MS but follows with Dr. Rincon at [facility]. Both lower extremities are swollen but the left is larger than the right. Ultrasound of both legs revealed a DVT in the left calf. The patient describes significant decline in his overall condition after being discharged from [facility]. I discussed the case with the [facility] and they will evaluate for further management. Triage Nursing notes reviewed and agree them. Prior medical records reviewed Vital Signs: reviewed and unremarkable Differential diagnosis: DVT, superficial thrombophlebitis, cellulitis, ambulatory dysfunction, MS flare Diagnostics interpreted by me: ECG: Normal sinus rhythm at a rate of [address]/T wave changes. There is no ectopy. Cardiac Monitoring: Normal sinus rhythm at a rate of 79 Laboratory studies: See below Imaging studies: As per stat rad Ultrasound venous bilateral lower extremities: On the left there is a small thrombus seen within one of the posterior tibial veins in the proximal aspect of the left calf: Remainder of the left lower extremity ultrasound reveals no other sites for deep venous thrombosis. No deep venous dermatosis involving the right lower extremity. HPI: 44/M arrives for evaluation of left leg swelling. Patient presents to the emergency department complaining of swelling to his left leg over the past 4 days. Patient states that he has a history of stool incontinence and has been spending most of his time in a wheelchair. He does not typically lay down anymore to sleep for fear of stooling himself. Patient has noticed swelling in both legs but noted that the left leg is much more edematous than the right. He describes being discharged from [facility] sometime more than a month ago and having overall general decline since that discharge. He now requires full assist with ambulation. He states that he has to use his arms in order to move his left leg. He also shows me that he has difficulty with any type of movement of his left upper extremity. This is new for him over the past month. ROS: See above HPI for pertinent positives & negatives. A total of 10 systems reviewed and were otherwise negative. PAST MEDICAL HISTORY:See Below PAST SURGICAL HISTORY:See Below FAMILY HISTORY:See Below SOCIAL HISTORY:See Below HOME MEDICATIONS:See list ALLERGIES:None VITALS:See Below PHYSICAL EXAMINATION: HEENT: Head - normocephalic and atraumatic Pupils are equal, round, and reactive to light. Extraocular eye muscles are intact, and sclera are anicteric. Nose - moist nasal mucosa without discharge. Mouth - moist buccal mucosa. Oropharynx is nonerythematous and there is no tonsillar exudate or edema noted. Neck: Supple; no JVD, nuchal rigidity, cervical lymphadenopathy, or auscultated bruits. Heart: Regular rate and rhythm. There is a normal S1 and S2 with no murmurs, c licks, or gallops appreciated. Lungs: Clear to auscultation bilaterally with no wheezes, rales, or rhonchi. Abdomen: Soft, completely nontender, nondistended, with good bowel sounds. There are no palpable pulsatile masses or hepatosplenomegaly. There is no guarding, rigidity, or rebound noted. Extremities: There is significant edema and erythema to both lower extremities with the left being greater than the right. Pedal pulses are difficult to palpate. Patient has limited use and movement of the left upper extremity. I could not test any significant strength in the arms or legs. ED COURSE:2304: The patient was evaluated in room B2. A complete history and physical was performed. An order was placed for continuous cardiac monitoring. The patient was in a normal sinus rhythm at a rate of 79. A twelve-lead EKG was obtained. Patient requests something for pain in his left leg which is even tender with just light palpation. He was given 0.5 mg of IV Dilaudid gave him significant relief of his discomfort. The patient will go for bilateral lower extremity ultrasounds. Her extremity ultrasounds revealed evidence of a DVT in the left calf. Any Elias, Past Med/Surg History Medical History Chronic pain syndrome Hypercalcemia Multiple sclerosis Obstructive uropathy 2/2 renal stone, caused RUBI, pt admitted for this and hypercalcemia 05/2018 Seizure disorder Many years ago may have had single episode, pt was never treated for this, no reoccurrence. Surgical History History of cystoscopy WITH STENT PLACEMENT 06/14/18 [facility] Family History (Updated 05/27/20 @ 17:35 by Quin Doherty PA-C) Father Stroke Thyroid disorder Other Hypertension Kidney stones Social History Smoking Status: Never smoker Cigarettes Per Day: 0; Second Hand Exposure: Yes; Hx Alcohol Use: No Hx Substance Use: No Preferred Language: Hebrew Communication Ability: Effective Loan Services Professional Required: No Beliefs That Will Affect Care: None Current Living Situation: Parent Current Living Situation Comment: brother and father at home current occupational status: disabled Other Information That Helps Us Care for You: No Feels Safe at Home: Yes Safety Concerns: Feels Safe At This Time Assistive Devices: Brace/Splint/Immobilizer Allergies Allergies Allergy/AdvReac Type Severity Reaction Status Date / Time No Known Allergies Allergy Verified 07/26/20 23:28 Home Meds Home Medications Medication Instructions Recorded Confirmed acetaminophen [Tylenol Extra 1,000 mg PO DIRECTED PRN 07/26/20 07/26/20 Strength] tizanidine 2 - 4 mg PO BID PRN 07/26/20 07/26/20 Previous Rx's Medication Instructions Recorded fluoxetine 10 mg PO QAM #30 cap 05/30/20 Results & Data (ED) Vital Signs Vital Signs - 24 hr 07/26/20 22:13 07/26/20 22:15 07/26/20 22:25 Pulse Rate 64 61 Pulse Rate from SpO2 Sensor 63 62 Respiratory Rate 16 13 Blood Pressure 115/67 Blood Pressure Mean 83 Pulse Oximetry 99 99 Oxygen Delivery Method Sepsis Recent Fever Within 48 Hours No Sepsis New/Unexplained Change in Mental Status No Sepsis Action Taken by Nursing No Action Required 07/26/20 22:30 07/26/20 22:31 07/26/20 22:45 Pulse Rate 67 68 64 Pulse Rate from SpO2 Sensor 66 68 64 Respiratory Rate 17 18 17 Blood Pressure 116/68 Blood Pressure Mean 84 Pulse Oximetry 98 99 98 Oxygen Delivery Method Sepsis Recent Fever Within 48 Hours Sepsis New/Unexplained Change in Mental Status Sepsis Action Taken by Nursing 07/26/20 23:00 07/26/20 23:15 07/26/20 23:30 Pulse Rate 82 72 74 Pulse Rate from SpO2 Sensor 73 74 Respiratory Rate 18 16 19 Blood Pressure 102/62 Blood Pressure Mean 75 Pulse Oximetry 98 97 Oxygen Delivery Method Sepsis Recent Fever Within 48 Hours Sepsis New/Unexplained Change in Mental Status Sepsis Action Taken by Nursing 07/26/20 23:31 07/26/20 23:40 07/26/20 23:45 Pulse Rate 71 70 Pulse Rate from SpO2 Sensor 70 Respiratory Rate 18 14 Blood Pressure Blood Pressure Mean Pulse Oximetry 98 97 Oxygen Delivery Method Room Air Sepsis Recent Fever Within 48 Hours Sepsis New/Unexplained Change in Mental Status Sepsis Action Taken by Nursing 07/27/20 00:45 07/27/20 01:42 07/27/20 01:43 Pulse Rate 0 L 69 Pulse Rate from SpO2 Sensor 76 69 Respiratory Rate 19 Blood Pressure 115/53 L Blood Pressure Mean 73 Pulse Oximetry 96 96 Oxygen Delivery Method Sepsis Recent Fever Within 48 Hours Sepsis New/Unexplained Change in Mental Status Sepsis Action Taken by Nursing 07/27/20 01:45 07/27/20 02:00 07/27/20 02:30 Pulse Rate 68 72 75 Pulse Rate from SpO2 Sensor 68 71 76 Respiratory Rate 16 23 19 Blood Pressure 119/69 126/80 Blood Pressure Mean 85 95 Pulse Oximetry 96 97 96 Oxygen Delivery Method Sepsis Recent Fever Within 48 Hours Sepsis New/Unexplained Change in Mental Status Sepsis Action Taken by Nursing 07/27/20 03:00 07/27/20 03:30 07/27/20 04:00 Pulse Rate 66 80 72 Pulse Rate from SpO2 Sensor 66 75 72 Respiratory Rate 12 21 16 Blood Pressure 110/60 119/67 118/67 Blood Pressure Mean 76 84 84 Pulse Oximetry 96 97 97 Oxygen Delivery Method Sepsis Recent Fever Within 48 Hours Sepsis New/Unexplained Change in Mental Status Sepsis Action Taken by Nursing Laboratory Data Result diagrams: 07/26/20 22:40 07/26/20 22:40 Lab Results 07/26/20 07/26/20 07/26/20 Range/Units 22:40 22:40 23:37 WBC 6.17 (4.8-10.8) K/uL RBC 3.78 L (4.7-6.1) M/uL Hgb 12.5 L (14.0-18.0) g/dL Hct 37.3 L (42-52) % MCV 98.7 (80-100) fL MCH 33.1 (25-34) pg MCHC 33.5 (32-36) g/dL RDW Std Deviation 49.2 H (36.4-46.3) fL RDW Coeff of Bret 13.8 (11.5-14.5) % Plt Count 261 (130-400) K/uL MPV 9.9 (7.4-10.4) fL Immature Gran % (Auto) 1.5 % Neut % (Auto) 61.1 % Lymph % (Auto) 23.3 % [place] % (Auto) 12.0 % Eos % (Auto) 1.5 % Baso % (Auto) 0.6 % Neut # (Auto) 3.77 (1.4-6.5) K/uL Lymph # (Auto) 1.44 (1.2-3.4) K/uL [place] # (Auto) 0.74 H (0.11-0.59) K/uL Eos # (Auto) 0.09 (0-0.5) K/uL Baso # (Auto) 0.04 (0-0.2) K/uL Immature Gran # (Auto) 0.09 H (0.00-0.02) K/uL Sodium 137 (136-145) mmol/L Potassium 3.9 (3.5-5.1) mmol/L Chloride 108 H (98-107) mmol/L Carbon Dioxide 23 (21-32) mmol/L Anion Gap 6.0 (3-11) BUN 12 (7-18) mg/dl Creatinine 1.18 (0.6-1.4) mg/dl Est Cr Clr Drug Dosing 98.9 ml/min Est GFR ( Amer) 85.3 ml/min Est GFR (Non-Af Amer) 73.6 ml/min BUN/Creatinine Ratio 9.9 L (10-20) Glucose 81 (70-99) mg/dl Calcium 9.6 (8.5-10.1) mg/dl Phosphorus 2.6 (2.5-4.9) mg/dl Total Bilirubin 0.2 (0.2-1) mg/dl AST 14 L (15-37) U/L ALT 27 (12-78) U/L Alkaline Phosphatase 72 (45-117) U/L Total Protein 6.6 (6.4-8.2) gm/dl Albumin 3.4 (3.4-5.0) gm/dl Globulin 3.2 (2.5-4.0) gm/dl Albumin/Globulin Ratio 1.1 (0.9-2) TSH 3.280 (0.300-4.500) uIu/ml Urine Color Yellow Urine Appearance Clear (Clear) Urine pH 6.5 (4.5-7.5) Ur Specific [place] 1.004 (1.000-1.030) Urine Protein Negative (Negative) Urine Glucose (UA) Negative (Negative) Urine Ketones Negative (Negative) Urine Blood Negative (Negative) Urine Nitrite Negative (Negative) Urine Bilirubin Negative (Negative) Urine Urobilinogen Negative (Negative) Ur Leukocyte Esterase Negative (Negative) COVID-19 Eval Order SARS-CoV-2 (PCR) (Negative) 07/27/20 07/27/20 Range/Units 01:52 01:52 WBC (4.8-10.8) K/uL RBC (4.7-6.1) M/uL Hgb (14.0-18.0) g/dL Hct (42-52) % MCV (80-100) fL MCH (25-34) pg MCHC (32-36) g/dL RDW Std Deviation (36.4-46.3) fL RDW Coeff of Bret (11.5-14.5) % Plt Count (130-400) K/uL MPV (7.4-10.4) fL Immature Gran % (Auto) % Neut % (Auto) % Lymph % (Auto) % [place] % (Auto) % Eos % (Auto) % Baso % (Auto) % Neut # (Auto) (1.4-6.5) K/uL Lymph # (Auto) (1.2-3.4) K/uL [place] # (Auto) (0.11-0.59) K/uL Eos # (Auto) (0-0.5) K/uL Baso # (Auto) (0-0.2) K/uL Immature Gran # (Auto) (0.00-0.02) K/uL Sodium (136-145) mmol/L Potassium (3.5-5.1) mmol/L Chloride (98-107) mmol/L Carbon Dioxide (21-32) mmol/L Anion Gap (3-11) BUN (7-18) mg/dl Creatinine (0.6-1.4) mg/dl Est Cr Clr Drug Dosing ml/min Est GFR ( Amer) ml/min Est GFR (Non-Af Amer) ml/min BUN/Creatinine Ratio (10-20) Glucose (70-99) mg/dl Calcium (8.5-10.1) mg/dl Phosphorus (2.5-4.9) mg/dl Total Bilirubin (0.2-1) mg/dl AST (15-37) U/L ALT (12-78) U/L Alkaline Phosphatase (45-117) U/L Total Protein (6.4-8.2) gm/dl Albumin (3.4-5.0) gm/dl Globulin (2.5-4.0) gm/dl Albumin/Globulin Ratio (0.9-2) TSH (0.300-4.500) uIu/ml Urine Color Urine Appearance (Clear) Urine pH (4.5-7.5) Ur Specific [place] (1.000-1.030) Urine Protein (Negative) Urine Glucose (UA) (Negative) Urine Ketones (Negative) Urine Blood (Negative) Urine Nitrite (Negative) Urine Bilirubin (Negative) Urine Urobilinogen (Negative) Ur Leukocyte Esterase (Negative) COVID-19 Eval Order Covid19 at [facility] SARS-CoV-2 (PCR) NEGATIVE (Negative) Administered Medications Ceftriaxone Sodium 2,000 mg/ (Dextrose) 70 mls @ 140 mls/hr IV Q24H MANJINDER Stop: 08/03/20 05:59 Last Admin: 07/27/20 06:05 Dose: 140 mls/hr Documented by: [id number] Discontinued Medications Hydromorphone HCl (Hydromorphone Inj 0.5 Mg/0.5 Ml Syr) 0.5 mg IV NOW STA Stop: 07/26/20 23:24 Last Admin: 07/26/20 23:31 Dose: 0.5 mg Documented by: [id number] Imaging Data Radiologist's Impression: Venous Doppler Study 07/27/20 00:00 US venous doppler LE BI CLINICAL HISTORY: Bilateral leg swelling COMPARISON STUDY: No previous studies for comparison. FINDINGS: Real-time, color-flow, Doppler spectral waveform analysis was performed. In the right, no intraluminal thrombus is visualized. The common femoral superficial femoral and popliteal veins appeared patent. The proximal trifurcation veins of the right calf appear patent as visualized. In the left, the common femoral superficial femoral and popliteal veins appeared patent. There is thrombus within one of 2 posterior tibial veins. The peroneal and anterior tibial veins appeared patent as visualized. IMPRESSION: 1. No evidence of right lower extremity DVT 2. Left calf DVT involving one of 2 posterior tibial veins. ACT 112: Negative or not required by law. Electronically signed by: Romeo Humphries M.D. 07/27/2020 6:55 AM Discharge Plan Visit Data Chief Complaint: Leg Injury/Pain Stated Complaint: LEG PAIN ED Provider: Any Elias Discharge Problem: Exacerbation of multiple sclerosis, Weakness, DVT (deep venous thrombosis) Patient Disposition: Admitted As Inpatient Discharge Instructions Interventions: ED Discharge Assessment Last Done: 07/27/20 05:12 Discharge Problem: DVT (deep venous thrombosis) Qualifiers: DVT location: lower extremity Affected thrombotic vein of extremity: calf muscle vein Chronicity: acute Laterality: left Qualified Code(s): I82.462 - Acute embolism and thrombosis of left calf muscular vein
--- NOTE | 2020-07-27 06:56 | Ultrasound Report ---
US venous doppler LE BI CLINICAL HISTORY: Bilateral leg swelling COMPARISON STUDY: No previous studies for comparison. FINDINGS: Real-time, color-flow, Doppler spectral waveform analysis was performed. In the right, no intraluminal thrombus is visualized. The common femoral superficial femoral and popl iteal veins appeared patent. The proximal trifurcation veins of the right calf appear patent as visua lized. In the left, the common femoral superficial femoral and popliteal veins appeared patent. There is thr ombus within one of 2 posterior tibial veins. The peroneal and anterior tibial veins appeared patent as visualized. IMPRESSION: 1. No evidence of right lower extremity DVT 2. Left calf DVT involving one of 2 posterior tibial veins. ACT 112: Negative or not required by law. Electronically signed by: Romeo Humphries M.D. 07/27/2020 6:55 AM
[2020-07-27 07:04] LABS: Basophils # (auto) 0.03 K/uL (0-0.2); Basophils % (auto) 0.5 %; Eosinophils # (auto) 0.08 K/uL (0-0.5); Eosinophils % (auto) 1.2 %; Hematocrit (blood only) 36.6 % (42-52); Hemoglobin 12.3 g/dL (14.0-18.0); Immature Granulocytes # (auto) 0.09 K/uL (0.00-0.02); Immature Granulocytes % (auto) 1.4 %; Lymphocytes # (auto) 0.81 K/uL (1.2-3.4); Lymphocytes % (auto) 12.2 %; Mean Corpuscular Hemoglobin 32.5 pg (25-34); Mean Corpuscular Hgb Conc 33.6 g/dL (32-36); Mean Corpuscular Volume 96.6 fL (80-100); Mean Platelet Volume 9.8 fL (7.4-10.4); Monocytes # (auto) 0.84 K/uL (0.11-0.59); Monocytes % (auto) 12.7 %; Neutrophils # (auto) 4.77 K/uL (1.4-6.5); Platelet Count 240 K/uL (130-400); RDW Coefficient of Variation 13.8 % (11.5-14.5); RDW Standard Deviation 48.7 fL (36.4-46.3); Red Blood Count 3.79 M/uL (4.7-6.1); White Blood Count 6.62 K/uL (4.8-10.8)
[2020-07-27 07:24] LABS: BUN Creatinine Ratio 10.2 (10-20); Calcium 9.3 mg/dl (8.5-10.1); Creatinine Clr Calc Pharmacy 108.1 ml/min; Est GFR (African American) 94.9 ml/min; Est GFR (Non-African American) 81.9 ml/min; Magnesium 2.4 mg/dl (1.8-2.4); Potassium 4.3 mmol/L (3.5-5.1)
[2020-07-27 07:28] LABS: Partial Thromboplastin Ratio 0.9; Partial Thromboplastin Time 22.6 Seconds (21.0-31.0)
[2020-07-27] MEDS: HEPARIN SODIUM/DEXTROSE 25,000 UNITS/500 ML BAG IV SCH ×2 (07:51→14:55)
[2020-07-27] MEDS: Heparin IV Adult Wt-Based Standard *NO* Bolus Protocol IV SCH ×2 (07:51→19:25)
[2020-07-27] MEDS: ACETAMINOPHEN 325 MG TAB PO PRN (07:59)
[2020-07-27 08:06] LABS: Basophils # (auto) 0.02 K/uL (0-0.2); Basophils % (auto) 0.3 %; Eosinophils # (auto) 0.07 K/uL (0-0.5); Hematocrit (blood only) 36.3 % (42-52); Hemoglobin 12.3 g/dL (14.0-18.0); Immature Granulocytes # (auto) 0.08 K/uL (0.00-0.02); Immature Granulocytes % (auto) 1.1 %; Lymphocytes # (auto) 1.01 K/uL (1.2-3.4); Lymphocytes % (auto) 14.2 %; Mean Corpuscular Hemoglobin 32.8 pg (25-34); Mean Corpuscular Volume 96.8 fL (80-100); Mean Platelet Volume 9.6 fL (7.4-10.4); Monocytes # (auto) 0.67 K/uL (0.11-0.59); Monocytes % (auto) 9.4 %; Neutrophils # (auto) 5.25 K/uL (1.4-6.5); Platelet Count 243 K/uL (130-400); RDW Coefficient of Variation 13.8 % (11.5-14.5); RDW Standard Deviation 48.5 fL (36.4-46.3); Red Blood Count 3.75 M/uL (4.7-6.1)
[2020-07-27 08:14] LABS: Mean Corpuscular Hgb Conc 33.9 g/dL (32-36)
[2020-07-27 08:27] LABS: Partial Thromboplastin Ratio 0.9; Partial Thromboplastin Time 22.5 Seconds (21.0-31.0); Prothrombin Time 9.8 Seconds (9.0-12.0)
[2020-07-27] MEDS: FLUoxetine HCL 10 MG CAP PO SCH (09:01)
[2020-07-27] MEDS: HYDROmorphone INJ 0.5 MG/0.5 ML SYR IV PRN ×4 (09:17→23:06)
[2020-07-27 14:39] LABS: Partial Thromboplastin Ratio 1.7
--- NOTE | 2020-07-27 15:07 | Neurology Consultation ---
Date of Consultation July 27, 2020 Assessment & Plan (1) Exacerbation of multiple sclerosis: 1. no exacerbation of MS at current. no steroids needed 2. plan for appointment with Terra Morgan as out patient 3. tizanidine helps with muscle spasm - need requested by patient when needed 4. no modulating MS drugs at this time 5. will have images pushed to [facility] for review by Dr Morgan 6. PT/OT for discharge needs 7. GI may be helpful with diarrhea issue Present on Admission?: Yes (2) DVT (deep venous thrombosis): 1. primary team for treatment and assessment. Present on Admission?: Yes Supervising Physician Co-Signing Physician Notes I have seen and discussed above patient with Dr Rachel Olivares, neurology. Pt seen and examined. admitted for DVT. No new weakness. DVT occurreded in setting of pt sitting uprightfor 2 weeks to avoid the incontinence of bm that he exerpiences with lying down.Exam is notable for him being awake and alert, a lue 3/5 exception of we1/5 and lle with minimal movmt and incresed tone No evidence of new neurologic sx. resume tizanidine. Pt needs more assitsance at home for ADL. No disease modifiers at present. To see MS specialist upon dc. RAMAN Olivares md History of Present Illness Attending Physician: Shahriar Scott MD History of Present Illness Mazin is a 44 year old male with PMH of MS. He is primarily bed bound for the past 10 years and no longer on modulating medications for his MS. He was last seen in the hospital 05/30/2020 for a pseudo MS flare. He has a history of depression, he lives with his brother and father and presents with LE swelling and pain. He was found to have a DVT in the LLE and possible cellulites. In April he was discharged to rehab and was there for a few weeks. He was able to transfer himself from bed to wheelchair. At discharge a follow up was scheduled with neurology which he was a no show. history significant for multiple sclerosis. He says he is bed bound for the last 10 years and not taking any medication because he does not believe they are helping him, history of depression, who lives with his brother and father, presents with lower extremity swelling and pain and found to have DVT in the left lower extremity and possible cellulitis. He was here in the hospital in April.At that time it was initially thought to be MS flare, but later thought to be pseudo flare of MS. At that time, he was discharged to rehab. He says he was in rehabilitation for a few weeks. He says he can transfer himself from bed to the wheelchair. denies CP, SOB, abdominal pain, new bladder issues + bowel incontinence, left leg pain and spasticity. Allergies Allergy/AdvReac Type Severity Reaction Status Date / Time No Known Allergies Allergy Verified 07/26/20 23:28 Home Medications Medication Instructions Recorded Confirmed Type fluoxetine 10 mg PO QAM #30 cap 05/30/20 07/26/20 Rx acetaminophen [Tylenol Extra 1,000 mg PO DIRECTED PRN 07/26/20 07/26/20 History Strength] tizanidine 2 - 4 mg PO BID PRN 07/26/20 07/26/20 History Patient History Medical History Chronic pain syndrome Hypercalcemia Multiple sclerosis Obstructive uropathy / renal stone, caused RUBI, pt admitted for this and hypercalcemia 05/2018 Seizure disorder Many years ago may have had single episode, pt was never treated for this, no reoccurrence. Surgical History History of cystoscopy WITH STENT PLACEMENT 06/14/18 [facility] Family History (Updated 05/27/20 @ 17:35 by Quin Doherty PA-C) Father Stroke Thyroid disorder Other Hypertension Kidney stones Social History Smoking Status: Never smoker Cigarettes Per Day: 0; Second Hand Exposure: Yes; Hx Alcohol Use: No Hx Substance Use: No Preferred Language: Bolivian Communication Ability: Effective Gas Tender Required: No Beliefs That Will Affect Care: None marital status: Single Current Living Situation: Parent Current Living Situation Comment: brother and father at home current occupational status: disabled Other Information That Helps Us Care for You: No Feels Safe at Home: Yes Safety Concerns: Feels Safe At This Time Assistive Devices: Glasses Review of Systems Review of Systems: All systems reviewed & are unremarkable except as noted in HPI & below Physical Exam Physical Exam: Physical Exam: Constitutional: appearance nourished and normal Ears, Nose, Mouth and Throat: mucous membranes moist, no injection and skin normal, eyes normal Cardiovascular: normal S-1 and S-2 and regular rate and rhythm Respiratory: clear to auscultation (CTA) and no rales, rhonchi or wheeze Musculoskeletal: bilateral 2++pitting edema Skin: no stigmata of neurocutaneous disease noted and normal and intact Eyes: extraocular muscles intact (EOMI) and pupils equal, round and reactive to light (PERRL) NEUROLOGIC EXAMINATION: Mental status: Alert and interactive Oriented to full date and location Oriented to person Speech fluent with no evidence of aphasia Cranial Nerves smile eye brow raise symmetric Reflexes: Deep tendon reflexes not assessed LE due to pain Sensory: intact to light and cool touch Coordination: finger to nose on right dysmetric on left Gait/Stance: lying in bed gait not assess Strength: left hand contracted, deltoid weak 3/5, hip flex 0/5 on left 2/5 right due to pain and swelling. muscle contraction Results & Data ([facility]) Vital Signs (Past 12 Hours) Vital Signs Temp Pulse Pulse Resp BP BP Pulse Ox 07/27/20 07:04 36.6 C 86 16 108/62 95 07/27/20 05:44 36.4 C L 79 14 115/72 97 07/27/20 05:00 16 105/62 97 07/27/20 04:30 67 15 119/70 96 07/27/20 04:00 72 16 118/67 97 07/27/20 03:30 80 21 119/67 97 Laboratory Results Abnormal lab results 07/26/20 07/26/20 07/27/20 Range/Units 22:40 22:40 06:43 RBC 3.78 L 3.79 L (4.7-6.1) M/uL Hgb 12.5 L 12.3 L (14.0-18.0) g/dL Hct 37.3 L 36.6 L (42-52) % RDW Std Deviation 49.2 H 48.7 H (36.4-46.3) fL Lymph # (Auto) 0.81 L (1.2-3.4) K/uL [place] # (Auto) 0.74 H 0.84 H (0.11-0.59) K/uL Immature Gran # (Auto) 0.09 H 0.09 H (0.00-0.02) K/uL APTT (21.0-31.0) Seconds Chloride 108 H (98-107) mmol/L Anion Gap (3-11) BUN/Creatinine Ratio 9.9 L (10-20) AST 14 L (15-37) U/L 07/27/20 07/27/20 07/27/20 Range/Units 06:43 07:49 14:01 RBC 3.75 L (4.7-6.1) M/uL Hgb 12.3 L (14.0-18.0) g/dL Hct 36.3 L (42-52) % RDW Std Deviation 48.5 H (36.4-46.3) fL Lymph # (Auto) 1.01 L (1.2-3.4) K/uL [place] # (Auto) 0.67 H (0.11-0.59) K/uL Immature Gran # (Auto) 0.08 H (0.00-0.02) K/uL APTT 44.0 H (21.0-31.0) Seconds Chloride 114 H (98-107) mmol/L Anion Gap 2.0 L (3-11) BUN/Creatinine Ratio (10-20) AST (15-37) U/L Diagnostic Findings LE doppler-No evidence of right lower extremity DVT Left calf DVT involving one of 2 posterior tibial veins. (1) DVT (deep venous thrombosis) Affected thrombotic vein of extremity: calf muscle vein Chronicity: acute DVT location: lower extremity Laterality: left Qualified Code(s): I82.462 - Acute embolism and thrombosis of left calf muscular vein
--- NOTE | 2020-07-27 15:37 | Electrocardiogram Report ---
Test Reason : Blood Pressure : / mmHG Vent. Rate : 079 BPM Atrial Rate : 079 BPM P-R Int : 164 ms QRS Dur : 106 ms QT Int : 386 ms P-R-T Axes : 048 049 044 degrees QTc Int : 442 ms Normal sinus rhythm Incomplete right bundle branch block Borderline ECG When compared with ECG of 27-MAY-2020 14:24, No significant change was found Confirmed by Pola Flynn [id number]) on 07/27/2020 3:37:15 PM Referred By: REFERRED SELF Confirmed By:Pola Flynn
--- NOTE | 2020-07-27 16:41 | Hospitalist Progress Note ---
Date of Service July 27, 2020 Assessment & Plan (1) Cellulitis of left lower extremity: Presented with left lower extremity pain, swelling and redness Likely has cellulitis of the left lower extremity Has been on outpatient Bactrim Started on intravenous Rocephin Clinically better and will continue current medication (2) DVT (deep venous thrombosis): Has paraplegia secondary to multiple sclerosis Left leg ultrasound did show deep venous thrombosis involving 1 of 2 posterior tibial veins Has been on intravenous heparin Discussed about Eliquis and will put him on Eliquis on discharge (3) Exacerbation of multiple sclerosis: History of multiple sclerosis Complains to have little more weakness Appreciate neurology input and recommendation Multiple sclerosis flare has been ruled out Does not need to have any extra medication DVT prophylaxis IV heparin CODE STATUS Full Admission and Anticipated Discharge Date Admission Date: July 27, 2020 Subjective 07/27/2020 The patient was seen and examined in medical floor He has MS and is on no medication was admitted with left leg swelling, redness and tenderness He has been feeling much better since admission No fever and/or chills Review of Systems Review of Systems: All systems reviewed and are unremarkable except as noted below Neurologic: + paralysis (Bilateral leg paralysis due to multiple sclerosis) Physical Exam Physical Exam: Lying in bed comfortably Constitutional: well developed, well nourished and + ill appearing Eyes: PERRL, conjunctivae normal, anicteric sclerae ENMT: external ear and nose normal, oropharynx normal Neck: trachea midline, no thyromegaly Respiratory: no respiratory distress Auscultation: lungs clear to auscultation bilaterally Cardiovascular: Rate/Rhythm: regular rate and regular rhythm Heart Sounds: no murmur Extremities: + edema (Bilateral leg edema more on the left than the right with redness and tender) Gastrointestinal (Abdomen): Inspection/Auscultation: abdomen not distended Percussion/Palpation: abdomen soft; abdomen nontender Musculoskeletal: Has paraparesis but no acute arthritis involving any joint Skin: Redness, tenderness and increasing warmth over left lower extremity mainly the leg Neurologic: Alert, 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 Has multiple sclerosis with paraplegia Psychiatric: A+Ox3, euthymic affect Lymphatic: no cervical or axillary lymphadenopathy Results & Data Results & Data ([facility] [place]) Vital Signs (Past 12 Hours) Vital Signs Temp Pulse Resp BP BP Pulse Ox 07/27/20 15:44 36.8 C 85 16 127/79 95 05/28/21 07:04 36.6 C 86 16 108/62 95 07/27/20 05:44 36.4 C L 79 14 115/72 97 07/27/20 05:00 16 105/62 97 Laboratory Results Short CBC 07/26/20 07/27/20 07/27/20 Range/Units 22:40 06:43 07:49 WBC 6.17 6.62 7.10 (4.8-10.8) K/uL Hgb 12.5 L 12.3 L 12.3 L (14.0-18.0) g/dL Hct 37.3 L 36.6 L 36.3 L (42-52) % Plt Count 261 240 243 (130-400) K/uL BMP 07/26/20 07/27/20 22:40 06:43 Sodium 137 140 Potassium 3.9 4.3 Chloride 108 H 114 H Carbon Dioxide 23 24 BUN 12 11 Creatinine 1.18 1.08 Glucose 81 91 Calcium 9.6 9.3 Liver Function 07/26/20 Range/Units 22:40 Total Bilirubin 0.2 (0.2-1) mg/dl AST 14 L (15-37) U/L ALT 27 (12-78) U/L Alkaline Phosphatase 72 (45-117) U/L Albumin 3.4 (3.4-5.0) gm/dl Urine 07/26/20 Range/Units 23:37 Urine Color Yellow Urine Appearance Clear (Clear) Urine pH 6.5 (4.5-7.5) Ur Specific [place] 1.004 (1.000-1.030) Urine Protein Negative (Negative) Urine Glucose (UA) Negative (Negative) Medications Administered Current Inpatient Medications Acetaminophen (Acetaminophen 325 Mg Tab) 650 mg PO Q4H PRN PRN Reason: pain/fever Stop: 08/26/20 05:43 Last Admin: 07/27/20 07:59 Dose: 650 mg Documented by: Fluoxetine HCl (Fluoxetine Hcl 10 Mg Cap) [facility] [place] Stop: 08/26/20 08:59 Last Admin: 07/27/20 09:01 Dose: 10 mg Documented by: Hydromorphone HCl (Hydromorphone Inj 0.5 Mg/0.5 Ml Syr) 0.5 mg IV Q4H PRN PRN Reason: Pain Stop: 08/10/20 09:05 Last Admin: 07/27/20 14:58 Dose: 0.5 mg Documented by: Heparin Sodium/Dextrose (Heparin Sodium/Dextrose) 25,000 units in 500 mls @ 34 mls/hr IV .[id number] [facility]; Protocol Stop: 08/26/20 07:34 Last Admin: 07/27/20 14:55 Dose: 1,700 units/hr, 34 mls/hr Documented by: Ceftriaxone Sodium 2,000 mg/ (Dextrose) 70 mls @ 140 mls/hr IV Q24H [facility] Stop: 08/03/20 05:59 Last Infusion: 07/27/20 07:11 Dose: Infused Documented by: Polyethylene Glycol (Polyethylene (Miralax) 17 Gm Pack) 17 gm PO DAILY PRN PRN Reason: Constipation Stop: 08/26/20 05:43 Tizanidine HCl (Tizanidine Hcl 4 Mg Tablet) 2 mg PO BID PRN PRN Reason: MUSCLE SPASMS Stop: 08/26/20 05:43 (1) DVT (deep venous thrombosis) Affected thrombotic vein of extremity: calf muscle vein Chronicity: acute DVT location: lower extremity Laterality: left Qualified Code(s): I82.462 - Acute embolism and thrombosis of left calf muscular vein
[2020-07-27 22:53] LABS: Partial Thromboplastin Ratio 2.5
[2020-07-27 22:59] LABS: Partial Thromboplastin Time 65.9 Seconds (21.0-31.0)
[2020-07-28] MEDS: HYDROmorphone INJ 0.5 MG/0.5 ML SYR IV PRN ×5 (03:12→19:58)
[2020-07-28] MEDS: HEPARIN SODIUM/DEXTROSE 25,000 UNITS/500 ML BAG IV SCH ×2 (03:35→16:02)
[2020-07-28] MEDS: cefTRIAXone SODIUM 2,000 MG in DEXTROSE 5% 50 ML IV SCH (06:20)
[2020-07-28 06:52] LABS: Partial Thromboplastin Ratio 3.4
[2020-07-28 06:57] LABS: Partial Thromboplastin Time 90.6 Seconds (21.0-31.0)
[2020-07-28 07:05] LABS: BUN Creatinine Ratio 8.7 (10-20); Calcium 9.4 mg/dl (8.5-10.1); Creatinine Clr Calc Pharmacy 96.5 ml/min; Est GFR (African American) 82.7 ml/min; Est GFR (Non-African American) 71.4 ml/min; Magnesium 2.4 mg/dl (1.8-2.4)
[2020-07-28 07:09] LABS: Phosphorus 1.9 mg/dl (2.5-4.9)
[2020-07-28] MEDS: FLUoxetine HCL 10 MG CAP PO SCH (10:10)
--- NOTE | 2020-07-28 12:25 | Progress Notes ---
DATE: 07/28/2020 SUBJECTIVE: I am seeing Mr. Ramirez in followup. He has a history of what is likely a chronic progressive multiple sclerosis and has not been on medications for several years, mostly due to social reasons. He was admitted with left leg cellulitis and DVT and is currently on antibiotic and is going to be switching to Eliquis. He notes ongoing spasticity in the left lower extremity and suggests that he has been told he cannot take his tizanidine because of medication interaction. I clarified this with nursing and apparently he can take the tizanidine. He looks mildly red today, more so on his legs than his arms, and he indicates that is not his baseline, but he is not itching. He has no complaints. PHYSICAL EXAMINATION: VITAL SIGNS: 114/63, 72, 16, 36.6. He is awake and alert. Speech and language are normal and his affect is appropriate. Left upper extremity is about 3/5 with the wrist extensors being 1-2. Left lower extremity is trace with increased tone. The patient has a fairly confluent redness to his legs and to a certain extent his left arm, but not so much in the right arm. IMPRESSION AND PLAN: Secondarily progressive multiple sclerosis. No evidence of a new flare. The patient is hospitalized for cellulitis and deep vein thrombosis. I have made the nurse aware that the patient appears to have a rash. They will assess and advise the hospitalist as appropriate. This patient has increased in home needs and this will need to be addressed through social work. The patient will see our multiple sclerosis specialist, Dr. Terra Morgan, as an outpatient. We will sign off at present.
--- NOTE | 2020-07-28 13:50 | Hospitalist Progress Note ---
Date of Service July 28, 2020 Assessment & Plan (1) Cellulitis of left lower extremity: Presented with left lower extremity pain, swelling and redness Likely has cellulitis of the left lower extremity Has been on outpatient Bactrim Started on intravenous Rocephin Much better today with decreasing leg swelling and redness and pain Advised to keep the left lower extremity elevated while in bed (2) DVT (deep venous thrombosis): Has paraplegia secondary to multiple sclerosis Left leg ultrasound did show deep venous thrombosis involving 1 of 2 posterior tibial veins Has been on intravenous heparin Discussed about Eliquis and will put him on Eliquis on discharge Pain has been improving (3) Exacerbation of multiple sclerosis: History of multiple sclerosis Complains to have little more weakness Appreciate neurology input and recommendation Multiple sclerosis flare has been ruled out Does not need to have any extra medication DVT prophylaxis IV heparin CODE STATUS Full Admission and Anticipated Discharge Date Admission Date: July 27, 2020 Subjective 07/27/2020 The patient was seen and examined in medical floor He has MS and is on no medication was admitted with left leg swelling, redness and tenderness He has been feeling much better since admission No fever and/or chills 07/28/20 The patient was seen and examined in medical floor He has been feeling much better with decreasing left leg swelling and redness Still has pain in the left leg Review of Systems Review of Systems: All systems reviewed and are unremarkable except as noted below Neurologic: + paralysis (Bilateral leg paralysis due to multiple sclerosis) Physical Exam Physical Exam: Lying in bed comfortably Constitutional: well developed, well nourished and + ill appearing Eyes: PERRL, conjunctivae normal, anicteric sclerae ENMT: external ear and nose normal, oropharynx normal Neck: trachea midline, no thyromegaly Respiratory: no respiratory distress Auscultation: lungs clear to auscultation bilaterally Cardiovascular: Rate/Rhythm: regular rate and regular rhythm Heart Sounds: no murmur Extremities: + edema (Bilateral leg edema more on the left than the right with redness and tender) Gastrointestinal (Abdomen): Inspection/Auscultation: abdomen not distended Percussion/Palpation: abdomen soft; abdomen nontender Musculoskeletal: No acute arthritis in any joint Neurologic: Alert, 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 He has multiple sclerosis with complete paralysis of the left lower extremity and is wheelchair-bound Psychiatric: A+Ox3, euthymic affect Lymphatic: no cervical or axillary lymphadenopathy Results & Data Results & Data ([facility]) Vital Signs (Past 12 Hours) Vital Signs Temp Pulse Resp BP Pulse Ox 07/28/20 08:06 36.6 C 72 16 114/63 96 (1) DVT (deep venous thrombosis) Affected thrombotic vein of extremity: calf muscle vein Chronicity: acute DVT location: lower extremity Laterality: left Qualified Code(s): I82.462 - Acute embolism and thrombosis of left calf muscular vein
[2020-07-28 15:05] LABS: Partial Thromboplastin Ratio 2.2
[2020-07-28 15:08] LABS: Partial Thromboplastin Time 57.8 Seconds (21.0-31.0)
[2020-07-28] MEDS: Heparin IV Adult Wt-Based Standard *NO* Bolus Protocol IV SCH ×3 (20:45→20:47)
[2020-07-29] MEDS: HYDROmorphone INJ 0.5 MG/0.5 ML SYR IV PRN ×7 (00:07→23:37)
[2020-07-29] MEDS: cefTRIAXone SODIUM 2,000 MG in DEXTROSE 5% 50 ML IV SCH (05:52)
[2020-07-29] MEDS: POLYETHYLENE (MIRALAX) 17 GM PACK PO PRN (05:57)
[2020-07-29 06:26] LABS: Basophils # (auto) 0.04 K/uL (0-0.2); Basophils % (auto) 0.6 %; Eosinophils # (auto) 0.12 K/uL (0-0.5); Eosinophils % (auto) 1.9 %; Hematocrit (blood only) 38.6 % (42-52); Hemoglobin 12.8 g/dL (14.0-18.0); Immature Granulocytes # (auto) 0.06 K/uL (0.00-0.02); Lymphocytes # (auto) 1.03 K/uL (1.2-3.4); Lymphocytes % (auto) 16.7 %; Mean Corpuscular Hemoglobin 32.7 pg (25-34); Mean Corpuscular Hgb Conc 33.2 g/dL (32-36); Mean Corpuscular Volume 98.7 fL (80-100); Mean Platelet Volume 9.7 fL (7.4-10.4); Monocytes # (auto) 0.93 K/uL (0.11-0.59); Monocytes % (auto) 15.1 %; Neutrophils # (auto) 3.98 K/uL (1.4-6.5); Neutrophils % (auto) 64.7 %; Platelet Count 240 K/uL (130-400); RDW Coefficient of Variation 13.6 % (11.5-14.5); RDW Standard Deviation 48.7 fL (36.4-46.3); Red Blood Count 3.91 M/uL (4.7-6.1); White Blood Count 6.16 K/uL (4.8-10.8)
[2020-07-29 06:54] LABS: Partial Thromboplastin Ratio 2.2
[2020-07-29 07:00] LABS: Partial Thromboplastin Time 57.4 Seconds (21.0-31.0)
[2020-07-29] MEDS: HEPARIN SODIUM/DEXTROSE 25,000 UNITS/500 ML BAG IV SCH (07:39)
[2020-07-29] MEDS: FLUoxetine HCL 10 MG CAP PO SCH (08:26)
--- NOTE | 2020-07-29 16:23 | Hospitalist Progress Note ---
Date of Service July 29, 2020 Assessment & Plan (1) Cellulitis of left lower extremity: Presented with left lower extremity pain, swelling and redness Likely has cellulitis of the left lower extremity Has been on outpatient Bactrim Started on intravenous Rocephin Much better today with decreasing leg swelling and redness and pain Advised to keep the left lower extremity elevated while in bed Left lower extremity shows much improvement and almost at its baseline Minimal swelling and minimal warmth but no redness (2) DVT (deep venous thrombosis): Has paraplegia secondary to multiple sclerosis Left leg ultrasound did show deep venous thrombosis involving 1 of 2 posterior tibial veins Has been on intravenous heparin Discussed about Eliquis and will put him on Eliquis on discharge Pain has been improving We will give Eliquis on discharge (3) Exacerbation of multiple sclerosis: History of multiple sclerosis Complains to have little more weakness Appreciate neurology input and recommendation Multiple sclerosis flare has been ruled out Does not need to have any extra medication DVT prophylaxis IV heparin CODE STATUS Full Admission and Anticipated Discharge Date Admission Date: July 27, 2020 Subjective 07/27/2020 The patient was seen and examined in medical floor He has MS and is on no medication was admitted with left leg swelling, redness and tenderness He has been feeling much better since admission No fever and/or chills 07/28/20 The patient was seen and examined in medical floor He has been feeling much better with decreasing left leg swelling and redness Still has pain in the left leg 07/29/2020 The patient was seen and examined in medical floor He complains to have more pain in the left leg but otherwise stable No fever and/or chills Review of Systems Review of Systems: All systems reviewed and are unremarkable except as noted below Neurologic: + paralysis (Bilateral leg paralysis due to multiple sclerosis) Physical Exam Physical Exam: Lying in bed comfortably Constitutional: well developed, well nourished and + ill appearing Eyes: PERRL, conjunctivae normal, anicteric sclerae ENMT: external ear and nose normal, oropharynx normal Neck: trachea midline, no thyromegaly Respiratory: no respiratory distress Auscultation: lungs clear to auscultation bilaterally Cardiovascular: Rate/Rhythm: regular rate and regular rhythm Heart Sounds: no murmur Extremities: + edema (Bilateral leg edema more on the left than the right with redness and tender) Gastrointestinal (Abdomen): Inspection/Auscultation: abdomen not distended Percussion/Palpation: abdomen soft; abdomen nontender Musculoskeletal: No acute arthritis in any joint Neurologic: Alert, 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 Has complete paralysis of the left lower extremity secondary to MS Psychiatric: A+Ox3, euthymic affect Lymphatic: no cervical or axillary lymphadenopathy Results & Data Results & Data ([facility]) Vital Signs (Past 12 Hours) Vital Signs Temp Pulse Resp BP Pulse Ox 07/29/20 15:39 36.8 C 70 16 147/77 H 96 07/29/20 08:14 36.5 C 61 16 125/78 96 Laboratory Results Short CBC 07/29/20 Range/Units 06:11 WBC 6.16 (4.8-10.8) K/uL Hgb 12.8 L (14.0-18.0) g/dL Hct 38.6 L (42-52) % Plt Count 240 (130-400) K/uL Medications Administered Current Inpatient Medications Acetaminophen (Acetaminophen 325 Mg Tab) 650 mg PO Q4H PRN PRN Reason: pain/fever Stop: 08/26/20 05:43 Last Admin: 07/27/20 07:59 Dose: 650 mg Documented by: Fluoxetine HCl (Fluoxetine Hcl 10 Mg Cap) 10 mg PO QAM [facility] Stop: 08/26/20 08:59 Last Admin: 07/29/20 08:26 Dose: 10 mg Documented by: Hydromorphone HCl (Hydromorphone Inj 0.5 Mg/0.5 Ml Syr) 0.5 mg IV Q3H PRN PRN Reason: Pain Stop: 08/10/20 09:05 Last Admin: 07/29/20 14:28 Dose: 0.5 mg Documented by: Heparin Sodium/Dextrose (Heparin Sodium/Dextrose) 25,000 units in 500 mls @ 30 mls/hr IV .[id number] [facility]; Protocol Stop: 08/26/20 07:34 Last Admin: 07/29/20 07:39 Dose: 1,500 units/hr, 30 mls/hr Documented by: Ceftriaxone Sodium 2,000 mg/ (Dextrose) 70 mls @ 140 mls/hr IV Q24H [facility] Stop: 08/03/20 05:59 Last Infusion: 07/29/20 06:34 Dose: Infused Documented by: Polyethylene Glycol (Polyethylene (Miralax) 17 Gm Pack) 17 gm PO DAILY PRN PRN Reason: Constipation Stop: 08/26/20 05:43 Last Admin: 07/29/20 05:57 Dose: 17 gm Documented by: Tizanidine HCl (Tizanidine Hcl 4 Mg Tablet) 2 mg PO BID PRN PRN Reason: MUSCLE SPASMS Stop: 08/26/20 05:43 Last Admin: 07/28/20 12:35 Dose: 2 mg Documented by: (1) DVT (deep venous thrombosis) Affected thrombotic vein of extremity: calf muscle vein Chronicity: acute DVT location: lower extremity Laterality: left Qualified Code(s): I82.462 - Acute embolism and thrombosis of left calf muscular vein
[2020-07-30] MEDS: HEPARIN SODIUM/DEXTROSE 25,000 UNITS/500 ML BAG IV SCH ×2 (00:47→17:44)
[2020-07-30] MEDS: HYDROmorphone INJ 0.5 MG/0.5 ML SYR IV PRN ×3 (03:51→11:08)
[2020-07-30] MEDS: cefTRIAXone SODIUM 2,000 MG in DEXTROSE 5% 50 ML IV SCH (06:19)
[2020-07-30 06:21] LABS: Partial Thromboplastin Ratio 1.9
[2020-07-30 06:37] LABS: Partial Thromboplastin Time 49.4 Seconds (21.0-31.0)
[2020-07-30] MEDS: FLUoxetine HCL 10 MG CAP PO SCH (08:04)
[2020-07-30] MEDS ORDERED: oxyCODONE HCL SOLN 5 MG/5 ML UDC PO PRN (11:18)
--- NOTE | 2020-07-30 13:19 | Hospitalist Progress Note ---
Date of Service July 30, 2020 Assessment & Plan (1) Cellulitis of left lower extremity: Presented with left lower extremity pain, swelling and redness Likely has cellulitis of the left lower extremity Has been on outpatient Bactrim Started on intravenous Rocephin Much better today with decreasing leg swelling and redness and pain Advised to keep the left lower extremity elevated while in bed Left lower extremity shows much improvement and almost at its baseline Minimal swelling and minimal warmth but no redness No more redness and tenderness is minimal Increasing pain in the left lower extremity Has had similar pain before and required oxycodone for a penitentiary He has been getting Dilaudid intravenously every 3 hourly We will add oxycodone 5 mg every 4 hourly as needed Advised not to have/avoid narcotics for pain pain control The patient is agreeable to that He has been using marijuana to control pain as an outpatient (2) DVT (deep venous thrombosis): Has paraplegia secondary to multiple sclerosis Left leg ultrasound did show deep venous thrombosis involving 1 of 2 posterior tibial veins Has been on intravenous heparin Discussed about Eliquis and will put him on Eliquis on discharge Pain has been improving We will give Eliquis on discharge (3) Exacerbation of multiple sclerosis: History of multiple sclerosis Complains to have little more weakness Appreciate neurology input and recommendation Multiple sclerosis flare has been ruled out Does not need to have any extra medication DVT prophylaxis IV heparin CODE STATUS Full Admission and Anticipated Discharge Date Admission Date: July 27, 2020 Subjective 07/27/2020 The patient was seen and examined in medical floor He has MS and is on no medication was admitted with left leg swelling, redness and tenderness He has been feeling much better since admission No fever and/or chills 07/28/20 The patient was seen and examined in medical floor He has been feeling much better with decreasing left leg swelling and redness Still has pain in the left leg 07/29/2020 The patient was seen and examined in medical floor He complains to have more pain in the left leg but otherwise stable No fever and/or chills 07/30/2020 The patient was seen and examined in medical floor He complains to have severe pain in the left leg and has been requiring Dilaudid almost every 3 hours He was on oral oxycodone codon and he missed use the medication and later on off of the medications for the last 2 to 3 years He mentioned that he does not want to have oxycodone continuously He will get PT and OT evaluation tomorrow and was put on oxycodone temporarily for now Not yet ready to be discharged Review of Systems Review of Systems: All systems reviewed and are unremarkable except as noted below Musculoskeletal: Increasing pain in the left lower extremity Neurologic: + paralysis (Bilateral leg paralysis due to multiple sclerosis) Physical Exam Physical Exam: Lying in bed comfortably Constitutional: well developed, well nourished and + ill appearing Eyes: PERRL, conjunctivae normal, anicteric sclerae ENMT: external ear and nose normal, oropharynx normal Neck: trachea midline, no thyromegaly Respiratory: no respiratory distress Auscultation: lungs clear to auscultation bilaterally Cardiovascular: Rate/Rhythm: regular rate and regular rhythm Heart Sounds: no murmur Extremities: + edema (Bilateral leg edema more on the left than the right with redness and tender) Gastrointestinal (Abdomen): Inspection/Auscultation: abdomen not distended Percussion/Palpation: abdomen soft; abdomen nontender Musculoskeletal: No acute arthritis in any joint. Left lower extremity is almost normal in size but does have increasing warmth Psychiatric: A+Ox3, euthymic affect Lymphatic: no cervical or axillary lymphadenopathy Results & Data Results & Data ([facility]) Vital Signs (Past 12 Hours) Vital Signs Temp Pulse Resp BP Pulse Ox 07/30/20 07:35 36.5 C 64 15 111/68 96 Medications Administered Current Inpatient Medications Acetaminophen (Acetaminophen 325 Mg Tab) 650 mg PO Q4H PRN PRN Reason: pain/fever Stop: 08/26/20 05:43 Last Admin: 07/27/20 07:59 Dose: 650 mg Documented by: Fluoxetine HCl (Fluoxetine Hcl 10 Mg Cap) 10 mg PO QAM [facility] Stop: 08/26/20 08:59 Last Admin: 07/30/20 08:04 Dose: 10 mg Documented by: Hydromorphone HCl (Hydromorphone Inj 0.5 Mg/0.5 Ml Syr) 0.5 mg IV Q3H PRN PRN Reason: Pain Stop: 08/10/20 09:05 Last Admin: 07/30/20 11:08 Dose: 0.5 mg Documented by: Heparin Sodium/Dextrose (Heparin Sodium/Dextrose) 25,000 units in 500 mls @ 30 mls/hr IV .[id number] [facility]; Protocol Stop: 08/26/20 07:34 Last Titration: 07/30/20 07:03 Dose: 1,500 units/hr, 30 mls/hr Documented by: Ceftriaxone Sodium 2,000 mg/ (Dextrose) 70 mls @ 140 mls/hr IV Q24H [facility] Stop: 08/03/20 05:59 Last Infusion: 07/30/20 07:04 Dose: Infused Documented by: Oxycodone HCl (Oxycodone Hcl Soln 5 Mg/5 Ml Udc) 5 mg PO Q4H PRN PRN Reason: Pain Stop: 08/13/20 11:17 Polyethylene Glycol (Polyethylene (Miralax) 17 Gm Pack) 17 gm PO DAILY PRN PRN Reason: Constipation Stop: 08/26/20 05:43 Last Admin: 07/29/20 05:57 Dose: 17 gm Documented by: Tizanidine HCl (Tizanidine Hcl 4 Mg Tablet) 2 mg PO BID PRN PRN Reason: MUSCLE SPASMS Stop: 08/26/20 05:43 Last Admin: 07/28/20 12:35 Dose: 2 mg Documented by: (1) DVT (deep venous thrombosis) Affected thrombotic vein of extremity: calf muscle vein Chronicity: acute DVT location: lower extremity Laterality: left Qualified Code(s): I82.462 - Acute embolism and thrombosis of left calf muscular vein
[2020-07-30] MEDS: oxyCODONE HCL IR 5 MG TAB (IMMEDIATE RELEASE) PO PRN (19:40)
[2020-07-31] MEDS: cefTRIAXone SODIUM 2,000 MG in DEXTROSE 5% 50 ML IV SCH (05:19)
[2020-07-31 05:40] LABS: Basophils # (auto) 0.04 K/uL (0-0.2); Basophils % (auto) 0.5 %; Eosinophils # (auto) 0.14 K/uL (0-0.5); Eosinophils % (auto) 1.9 %; Hematocrit (blood only) 44.8 % (42-52); Hemoglobin 15.1 g/dL (14.0-18.0); Immature Granulocytes # (auto) 0.21 K/uL (0.00-0.02); Immature Granulocytes % (auto) 2.8 %; Lymphocytes # (auto) 1.31 K/uL (1.2-3.4); Lymphocytes % (auto) 17.4 %; Mean Corpuscular Hemoglobin 32.8 pg (25-34); Mean Corpuscular Hgb Conc 33.7 g/dL (32-36); Mean Corpuscular Volume 97.2 fL (80-100); Mean Platelet Volume 9.9 fL (7.4-10.4); Monocytes # (auto) 0.95 K/uL (0.11-0.59); Monocytes % (auto) 12.6 %; Neutrophils # (auto) 4.87 K/uL (1.4-6.5); Neutrophils % (auto) 64.8 %; Platelet Count 265 K/uL (130-400); RDW Coefficient of Variation 13.7 % (11.5-14.5); RDW Standard Deviation 48.2 fL (36.4-46.3); Red Blood Count 4.61 M/uL (4.7-6.1); White Blood Count 7.52 K/uL (4.8-10.8)
[2020-07-31] MEDS: oxyCODONE HCL IR 5 MG TAB (IMMEDIATE RELEASE) PO PRN ×4 (05:41→20:46)
[2020-07-31] MEDS: ACETAMINOPHEN 325 MG TAB PO PRN (07:19)
[2020-07-31] MEDS: FLUoxetine HCL 10 MG CAP PO SCH (08:50)
[2020-07-31] MEDS: HEPARIN SODIUM/DEXTROSE 25,000 UNITS/500 ML BAG IV SCH (10:30)
--- NOTE | 2020-07-31 12:47 | Hospitalist Progress Note ---
Date of Service July 31, 2020 Assessment & Plan (1) Cellulitis of left lower extremity: Presented with left lower extremity pain, swelling and redness Likely has cellulitis of the left lower extremity Has been on outpatient Bactrim Started on intravenous Rocephin Much better today with decreasing leg swelling and redness and pain Advised to keep the left lower extremity elevated while in bed Left lower extremity shows much improvement and almost at its baseline Minimal swelling and minimal warmth but no redness No more redness and tenderness is minimal We will start oral Keflex to continue for next 3 days Increasing pain in the left lower extremity Has had similar pain before and 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 He has been getting Dilaudid intravenously every 3 hourly We will add oxycodone 5 mg every 4 hourly as needed Advised not to have/avoid narcotics for pain pain control The patient is agreeable to that He has been using marijuana to control pain as an outpatient Pain seems to be worsening and will increase oxycodone to 10 mg every 6 hourly as needed and add gabapentin He strongly feels that the pain medications will be taken for a few days only (2) DVT (deep venous thrombosis): Has paraplegia secondary to multiple sclerosis Left leg ultrasound did show deep venous thrombosis involving 1 of 2 posterior tibial veins Has been on intravenous heparin Discussed about Eliquis and will put him on Eliquis on discharge Pain has been improving We will give Eliquis on discharge (3) Exacerbation of multiple sclerosis: History of multiple sclerosis Complains to have little more weakness Appreciate neurology input and recommendation Multiple sclerosis flare has been ruled out Does not need to have any extra medication DVT prophylaxis IV heparin CODE STATUS Full We will get PT and OT evaluation and possible discharge today and/or tomorrow Admission and Anticipated Discharge Date Admission Date: July 27, 2020 Subjective 07/27/2020 The patient was seen and examined in medical floor He has MS and is on no medication was admitted with left leg swelling, redness and tenderness He has been feeling much better since admission No fever and/or chills 07/28/20 The patient was seen and examined in medical floor He has been feeling much better with decreasing left leg swelling and redness Still has pain in the left leg 07/29/2020 The patient was seen and examined in medical floor He complains to have more pain in the left leg but otherwise stable No fever and/or chills 07/30/2020 The patient was seen and examined in medical floor He complains to have severe pain in the left leg and has been requiring Dilaudid almost every 3 hours He was on oral oxycodone codon and he missed use the medication and later on off of the medications for the last 2 to 3 years He mentioned that he does not want to have oxycodone continuously He will get PT and OT evaluation tomorrow and was put on oxycodone temporarily for now Not yet ready to be discharged 07/31/2020 The patient was seen and examined in medical floor He complains of increasing pain in the left lower extremity Denies any fever, chills and the redness and swelling in the left lower extremity has improved a lot He has not had any physical therapy yet and he does not have a ride to go home today Review of Systems Review of Systems: All systems reviewed and are unremarkable except as noted below Musculoskeletal: Increasing pain in the left lower extremity Neurologic: + paralysis (Bilateral leg paralysis due to multiple sclerosis) Physical Exam Physical Exam: Lying in bed comfortably Constitutional: well developed, well nourished and + ill appearing Eyes: PERRL, conjunctivae normal, anicteric sclerae ENMT: external ear and nose normal, oropharynx normal Neck: trachea midline, no thyromegaly Respiratory: no respiratory distress Auscultation: lungs clear to auscultation bilaterally Cardiovascular: Rate/Rhythm: regular rate and regular rhythm Heart Sounds: no murmur Extremities: no edema (Bilateral leg edema more on the left than the right with redness and tender) Gastrointestinal (Abdomen): Inspection/Auscultation: abdomen not distended Percussion/Palpation: abdomen soft; abdomen nontender Musculoskeletal: Has more pain in the left lower extremity. Left lower extremity remains in extended posture Neurologic: Alert, 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 Has MS with paraparesis with complete paralysis of the left lower extremity Psychiatric: A+Ox3, euthymic affect Lymphatic: no cervical or axillary lymphadenopathy Results & Data Results & Data ([facility]) Vital Signs (Past 12 Hours) Vital Signs Temp Pulse Resp BP Pulse Ox 07/31/20 07:44 36.4 C L 73 18 130/83 97 Laboratory Results Short CBC 07/31/20 Range/Units 05:25 WBC 7.52 (4.8-10.8) K/uL Hgb 15.1 (14.0-18.0) g/dL Hct 44.8 (42-52) % Plt Count 265 (130-400) K/uL Medications Administered Current Inpatient Medications Acetaminophen (Acetaminophen 325 Mg Tab) 650 mg PO Q4H PRN PRN Reason: pain/fever Stop: 08/26/20 05:43 Last Admin: 07/31/20 07:19 Dose: 650 mg Documented by: Fluoxetine HCl (Fluoxetine Hcl 10 Mg Cap) 10 mg PO QAM [facility] Stop: 08/26/20 08:59 Last Admin: 07/31/20 08:50 Dose: 10 mg Documented by: Gabapentin (Gabapentin 100 Mg Cap) 100 mg PO BID [facility] Stop: 08/30/20 11:44 Hydromorphone HCl (Hydromorphone Inj 0.5 Mg/0.5 Ml Syr) 0.5 mg IV Q3H PRN PRN Reason: Pain Stop: 08/10/20 09:05 Last Admin: 07/30/20 11:08 Dose: 0.5 mg Documented by: Heparin Sodium/Dextrose (Heparin Sodium/Dextrose) 25,000 units in 500 mls @ 30 mls/hr IV .[id number] [facility]; Protocol Stop: 08/26/20 07:34 Last Admin: 07/31/20 10:30 Dose: 1,500 units/hr, 30 mls/hr Documented by: Ceftriaxone Sodium 2,000 mg/ (Dextrose) 70 mls @ 140 mls/hr IV Q24H [facility] Stop: 08/03/20 05:59 Last Infusion: 07/31/20 05:50 Dose: Infused Documented by: Oxycodone HCl (Oxycodone Hcl Ir 5 Mg Tab (Immediate Release)) 10 mg PO Q6H PRN PRN Reason: Pain Stop: 08/13/20 15:09 Polyethylene Glycol (Polyethylene (Miralax) 17 Gm Pack) 17 gm PO DAILY PRN PRN Reason: Constipation Stop: 08/26/20 05:43 Last Admin: 07/29/20 05:57 Dose: 17 gm Documented by: Tizanidine HCl (Tizanidine Hcl 4 Mg Tablet) 2 mg PO BID PRN PRN Reason: MUSCLE SPASMS Stop: 08/26/20 05:43 Last Admin: 07/28/20 12:35 Dose: 2 mg Documented by: (1) DVT (deep venous thrombosis) Affected thrombotic vein of extremity: calf muscle vein Chronicity: acute DVT location: lower extremity Laterality: left Qualified Code(s): I82.462 - Acute embolism and thrombosis of left calf muscular vein
[2020-07-31] MEDS: GABAPENTIN 100 MG CAP PO SCH ×2 (14:36→21:34)
[2020-08-01] MEDS: HEPARIN SODIUM/DEXTROSE 25,000 UNITS/500 ML BAG IV SCH (01:34)
[2020-08-01] MEDS: oxyCODONE HCL IR 5 MG TAB (IMMEDIATE RELEASE) PO PRN ×4 (05:22→23:39)
[2020-08-01] MEDS: cefTRIAXone SODIUM 2,000 MG in DEXTROSE 5% 50 ML IV SCH (05:22)
[2020-08-01 06:51] LABS: Partial Thromboplastin Ratio 2.3
[2020-08-01 06:57] LABS: Partial Thromboplastin Time 59.6 Seconds (21.0-31.0)
[2020-08-01] MEDS: GABAPENTIN 100 MG CAP PO SCH ×2 (09:15→20:19)
[2020-08-01] MEDS: FLUoxetine HCL 10 MG CAP PO SCH (09:15)
[2020-08-01] MEDS: POLYETHYLENE (MIRALAX) 17 GM PACK PO PRN (09:23)
[2020-08-01] MEDS: ACETAMINOPHEN 325 MG TAB PO PRN (14:40)
--- NOTE | 2020-08-01 17:27 | Hospitalist Progress Note ---
Date of Service August 01, 2020 Assessment & Plan (1) Cellulitis of left lower extremity: Left lower extremity cellulitis Was on outpatient Bactrim Continue IV Rocephin Plan to transition to Keflex as able Clinically improved Left lower extremity Pain Likely secondary to cellulitis, DVT Pain control Minimize narcotic pain medications as able Uses marijuana to control pain as an outpatient Continue gabapentin (2) DVT (deep venous thrombosis): H/O paraplegia secondary to multiple sclerosis Venous Doppler: No evidence of right lower extremity DVT. Left calf DVT involving one of 2 posterior tibial veins. On IV heparin Plan to transition to Eliquis as per patient's preference (3) Exacerbation of multiple sclerosis: H/O Multiple sclerosis Appreciate neurology input Continue tizanidine Plan to follow-up with neurology, MS specialist as outpatient DVT Px: Eliquis CODE STATUS Full Code Admission and Anticipated Discharge Date Admission Date: July 27, 2020 Subjective Patient is seen and examined at bedside States having left leg pain Otherwise feels better Denies chest pain, dyspnea, dizziness, nausea, abdominal pain Offers no other complaints Review of Systems Review of Systems: All systems reviewed & are unremarkable except as noted in HPI & below Physical Exam Physical Exam: Physical Exam: Vitals signs as noted above General Appearance:Moderately built and nourished, no apparent distress Head: normocephalic, Atraumatic Eyes: normal inspection, EOMI Neck: supple, Trachea midline Respiratory/Chest: Normal breath sounds, CTA, No accessory muscle use Cardiovascular: S1, S2, No murmur Abdomen/GI:Soft, Non tender, Bowel sounds present Extremities/Musculoskeletal:normal inspection, no edema, Leg erythema improved Neurologic/Psych:AAOX3, Left LE paralyzed, LUE paresis Skin: normal color, warm Results & Data Results & Data ([facility]) Vital Signs (Past 12 Hours) Vital Signs Temp Pulse Resp BP Pulse Ox 08/01/20 15:14 36.6 C 66 18 134/76 96 08/01/20 07:23 36.6 C 64 16 123/70 95 (1) DVT (deep venous thrombosis) Affected thrombotic vein of extremity: calf muscle vein Chronicity: acute DVT location: lower extremity Laterality: left Qualified Code(s): I82.462 - Acute embolism and thrombosis of left calf muscular vein
[2020-08-01] MEDS ORDERED: HYDROmorphone INJ 0.5 MG/0.5 ML SYR IV PRN (17:46)
[2020-08-01] MEDS: APIXABAN 5 MG TABLET PO SCH (20:19)
[2020-08-02] MEDS: cefTRIAXone SODIUM 2,000 MG in DEXTROSE 5% 50 ML IV SCH (05:49)
[2020-08-02] MEDS: oxyCODONE HCL IR 5 MG TAB (IMMEDIATE RELEASE) PO PRN ×3 (05:56→18:42)
[2020-08-02 06:35] LABS: Basophils # (auto) 0.04 K/uL (0-0.2); Basophils % (auto) 0.7 %; Eosinophils % (auto) 1.7 %; Hematocrit (blood only) 43.4 % (42-52); Hemoglobin 14.8 g/dL (14.0-18.0); Immature Granulocytes % (auto) 1.7 %; Lymphocytes # (auto) 1.15 K/uL (1.2-3.4); Lymphocytes % (auto) 19.1 %; Mean Corpuscular Hemoglobin 33.3 pg (25-34); Mean Corpuscular Hgb Conc 34.1 g/dL (32-36); Mean Corpuscular Volume 97.7 fL (80-100); Mean Platelet Volume 10.1 fL (7.4-10.4); Monocytes # (auto) 0.87 K/uL (0.11-0.59); Monocytes % (auto) 14.5 %; Neutrophils # (auto) 3.75 K/uL (1.4-6.5); Neutrophils % (auto) 62.3 %; Platelet Count 295 K/uL (130-400); RDW Coefficient of Variation 13.6 % (11.5-14.5); RDW Standard Deviation 48.6 fL (36.4-46.3); Red Blood Count 4.44 M/uL (4.7-6.1); White Blood Count 6.01 K/uL (4.8-10.8)
[2020-08-02 07:03] LABS: BUN Creatinine Ratio 13.9 (10-20); Calcium 11.5 mg/dl (8.5-10.1); Creatinine Clr Calc Pharmacy 100.6 ml/min; Est GFR (Non-African American) 75.1 ml/min; Magnesium 2.4 mg/dl (1.8-2.4); Phosphorus 2.9 mg/dl (2.5-4.9); Potassium 4.1 mmol/L (3.5-5.1)
[2020-08-02 07:04] LABS: Partial Thromboplastin Time 25.6 Seconds (21.0-31.0)
[2020-08-02] MEDS: GABAPENTIN 100 MG CAP PO SCH ×2 (08:47→19:49)
[2020-08-02] MEDS: APIXABAN 5 MG TABLET PO SCH ×2 (08:47→19:49)
[2020-08-02] MEDS: FLUoxetine HCL 10 MG CAP PO SCH (08:47)
[2020-08-02] MEDS: ACETAMINOPHEN 325 MG TAB PO PRN (12:19)
[2020-08-02] MEDS ORDERED: MoRPHine SULFATE 2 MG/ML CARP IV ONE (14:07)
--- NOTE | 2020-08-02 17:36 | Hospitalist Progress Note ---
Date of Service August 02, 2020 Assessment & Plan (1) Cellulitis of left lower extremity: Left lower extremity cellulitis Was on outpatient Bactrim Continue IV Rocephin while hospitalized Plan to transition to Keflex as able Improved Left lower extremity Pain Likely secondary to cellulitis, DVT Pain control Minimize narcotic pain medications as able Uses marijuana to control pain as an outpatient Continue gabapentin (2) DVT (deep venous thrombosis): H/O paraplegia secondary to multiple sclerosis Venous Doppler: No evidence of right lower extremity DVT. Left calf DVT involving one of 2 posterior tibial veins. IV heparin discontinued Continue Eliquis as per patient's preference (3) Exacerbation of multiple sclerosis: H/O Multiple sclerosis Appreciate neurology input Continue tizanidine Plan to follow-up with neurology, MS specialist as outpatient DVT Px: Eliquis CODE STATUS Full Code Admission and Anticipated Discharge Date Admission Date: July 27, 2020 Subjective Patient is seen and examined at bedside Left leg pain is improved No new complaints Denies chest pain, dyspnea, dizziness, nausea, abdominal pain Review of Systems Review of Systems: All systems reviewed and are unremarkable except as noted below Physical Exam Physical Exam: Physical Exam: Vitals signs as noted above General Appearance:Moderately built and nourished, no apparent distress Head: normocephalic, Atraumatic Eyes: normal inspection, EOMI Neck: supple, Trachea midline Respiratory/Chest: Normal breath sounds, CTA, No accessory muscle use Cardiovascular: S1, S2, No murmur Abdomen/GI:Soft, Non tender, Bowel sounds present Extremities/Musculoskeletal:normal inspection, no edema, Leg erythema improved Neurologic/Psych:AAOX3, Left LE paralyzed, LUE paresis Skin: normal color, warm Results & Data Results & Data ([facility]) Vital Signs (Past 12 Hours) Vital Signs Temp Pulse Resp BP Pulse Ox 08/02/20 15:12 36.7 C 67 16 136/78 97 08/02/20 07:12 36.6 C 69 16 121/78 92 Laboratory Results Short CBC 08/02/20 Range/Units 05:46 WBC 6.01 (4.8-10.8) K/uL Hgb 14.8 (14.0-18.0) g/dL Hct 43.4 (42-52) % Plt Count 295 (130-400) K/uL BMP 08/02/20 05:46 Sodium 136 Potassium 4.1 Chloride 107 Carbon Dioxide 23 BUN 16 Creatinine 1.16 Glucose 99 Calcium 11.5 H (1) DVT (deep venous thrombosis) Affected thrombotic vein of extremity: calf muscle vein Chronicity: acute DVT location: lower extremity Laterality: left Qualified Code(s): I82.462 - Acute embolism and thrombosis of left calf muscular vein
[2020-08-03] MEDS: oxyCODONE HCL IR 5 MG TAB (IMMEDIATE RELEASE) PO PRN ×3 (00:29→12:32)
[2020-08-03 06:37] LABS: Partial Thromboplastin Time 25.4 Seconds (21.0-31.0)
[2020-08-03 07:01] LABS: BUN Creatinine Ratio 12.7 (10-20); Creatinine Clr Calc Pharmacy 93.4 ml/min; Est GFR (African American) 79.5 ml/min; Est GFR (Non-African American) 68.6 ml/min; Potassium 4.4 mmol/L (3.5-5.1)
[2020-08-03] MEDS: GABAPENTIN 100 MG CAP PO SCH (08:07)
[2020-08-03] MEDS: APIXABAN 5 MG TABLET PO SCH (08:07)
[2020-08-03] MEDS: FLUoxetine HCL 10 MG CAP PO SCH (08:07)
--- NOTE | 2020-08-03 13:03 | Hospitalist Progress Note ---
Date of Service August 03, 2020 Assessment & Plan (1) Cellulitis of left lower extremity: Left lower extremity cellulitis Was on outpatient Bactrim Completed 7 day course IV Rocephin Left lower extremity Pain Likely secondary to cellulitis, DVT Minimize narcotic pain medications as able Uses marijuana to control pain as an outpatient Continue gabapentin Pain improved (2) DVT (deep venous thrombosis): H/O paraplegia secondary to multiple sclerosis Venous Doppler: No evidence of right lower extremity DVT. Left calf DVT involving one of 2 posterior tibial veins. IV heparin discontinued Continue Eliquis as per patient's preference (3) Exacerbation of multiple sclerosis: H/O Multiple sclerosis Appreciate neurology input Continue tizanidine Plan to follow-up with neurology, MS specialist as outpatient DVT Px: Eliquis CODE STATUS Full Code Disposition Home with home health Admission and Anticipated Discharge Date Admission Date: July 27, 2020 Subjective Patient is seen and examined at bedside Left leg pain continues to improve Denies chest pain, dyspnea, dizziness, nausea, abdominal pain Offers no other complaints Review of Systems Review of Systems: All systems reviewed & are unremarkable except as noted in HPI & below Physical Exam Physical Exam: Physical Exam: Vitals signs as noted above General Appearance:Moderately built and nourished, no apparent distress Head: normocephalic, Atraumatic Eyes: normal inspection, EOMI Neck: supple, Trachea midline Respiratory/Chest: Normal breath sounds, CTA, No accessory muscle use Cardiovascular: S1, S2, No murmur Abdomen/GI:Soft, Non tender, Bowel sounds present Extremities/Musculoskeletal:normal inspection, no edema, Leg erythema improved Neurologic/Psych:AAOX3, Left LE paralyzed, LUE paresis Skin: normal color, warm Results & Data Results & Data ([facility]) Vital Signs (Past 12 Hours) Vital Signs Temp Pulse Resp BP Pulse Ox 08/03/20 08:12 36.5 C 70 16 137/72 96 Laboratory Results BMP 08/03/20 06:06 Sodium 137 Potassium 4.4 Chloride 107 Carbon Dioxide 24 BUN 16 Creatinine 1.25 Glucose 103 H Calcium 11.0 H (1) DVT (deep venous thrombosis) Affected thrombotic vein of extremity: calf muscle vein Chronicity: acute DVT location: lower extremity Laterality: left Qualified Code(s): I82.462 - Acute embolism and thrombosis of left calf muscular vein
--- NOTE | 2020-08-03 13:11 | Discharge Summary ---
Date of Service August 03, 2020 Admission HPI Per Admitting Provider CHIEF COMPLAINT: Lower extremity pain and swelling. HISTORY OF PRESENT ILLNESS: This is a 44-year-old male with past medical history significant for multiple sclerosis. He says he is bed bound for the last 10 years and not taking any medication because he does not believe they are helping him, history of depression, who lives with his brother and father, presents with lower extremity swelling and pain and found to have DVT in the left lower extremity and possible cellulitis. He was here in the hospital in April.At that time it was initially thought to be MS flare, but later thought to be pseudoflare of MS. At that time, he was discharged to rehab. He says he was in rehabilitation for a few weeks. He says he can transfer himself from bed to the wheelchair. Denies any other complaints. Denies any headache, no blurred vision, no earache, no runny nose, no sore throat, no cough, no fever, no chills, no chest pain, no shortness of breath, no nausea, no vomiting, no abdominal pain, no diarrhea. He says he is somewhat constipated. Normal bladder movements. Currently resting comfortably and hemodynamically stable. Admission Exam Per Admitting Provider PHYSICAL EXAMINATION: GENERAL: The patient is of moderate build, not in acute distress. VITAL SIGNS: Temperature afebrile, pulse 72, respiratory rate 16, blood pressure 118/67, oxygen 97% on room air. HEENT: Pupils equal, round, and reactive to light. Oral mucosa moist. NECK: No JVD. No neck masses. CARDIOVASCULAR: S1, S2 heard, regular rate and rhythm, no murmur, no gallop. RESPIRATORY SYSTEM: Normal AP diameter. No accessory muscle use. No wheezing, no crackles. ABDOMEN: Soft, bowel sounds present, nontender. No distention. CENTRAL NERVOUS SYSTEM: Alert and oriented. Speech is clear, no facial droop. Moves extremities. EXTREMITIES: Bilateral lower extremities erythematous and swollen and warm to palpation. Principal Diagnosis Left lower extremity cellulitis Left lower extremity deep vein thrombosis Discharge Data Allergies Allergy/AdvReac Type Severity Reaction Status Date / Time No Known Allergies Allergy Verified 07/26/20 23:28 Consultations 07/27/20 02:20 ED Decision to Admit Stat 07/27/20 08:00 Consult Neurology Routine Procedures Performed Venous Doppler: No evidence of right lower extremity DVT. Left calf DVT involving one of 2 posterior tibial veins. Ordered Studies 07/27/20 US venous doppler [facility] Urgent Hospital Course (1) Cellulitis of left lower extremity: Left lower extremity cellulitis Was on outpatient Bactrim Completed 7 day course IV Rocephin Left lower extremity Pain Likely secondary to cellulitis, DVT Minimize narcotic pain medications as able Uses marijuana to control pain as an outpatient Continue gabapentin Pain improved (2) DVT (deep venous thrombosis): H/O paraplegia secondary to multiple sclerosis Venous Doppler: No evidence of right lower extremity DVT. Left calf DVT involving one of 2 posterior tibial veins. IV heparin discontinued Continue Eliquis as per patient's preference (3) Exacerbation of multiple sclerosis: H/O Multiple sclerosis Appreciate neurology input Continue tizanidine Plan to follow-up with neurology, MS specialist as outpatient DVT Px: Eliquis CODE STATUS Full Code Disposition Home with home health Total Time Total Time Spent Total Time Spent (In Minutes): 43 MINUTES Total Time Includes: Examination of the Patient, Discharge Planning, Medication Reconciliation, Communication With Other Providers and Other Discharge Plan Discharge Items Patient Disposition: Home - Home Health Services Reason For Visit: LEG SWELLING/PAIN Discharge Diagnosis: Left lower extremity cellulitis Left lower extremity deep vein thrombosis Activity: Per Instructions section Exercise/Sports: Gradually increase as tolerated Non-emergency contact: Primary Care Provider Call non-emergency contact if: you have any medication questions, your symptoms worsen, your pain is not controlled, your pain is worsening, your pain is unusual for you, your pain is concerning for you and you have a fever Follow-up/Referrals: Jabari Pemberton [Primary Care Provider] - 08/07/20 3:15 pm ([facility] [address] [place] [address] ) Diet: Heart Healthy Addtl Attending Provider Instructions: Follow-up with your primary care physician on 08/07/20 at 3:15 PM as scheduled Follow-up with your neurologist for 4 weeks for further management of multiple sclerosis. Continue Apixaban (Eliquis) 10mg twice a day for 5 more days and then start taking 5mg twice a day. Duration of Eliquis treatment to be determined by your Primary Care Physician. Seek immediate medical attention if your symptoms reoccur or worsen Please take all medications as instructed on discharge list below. Please call if you have any questions or problems. You can reach a [facility] hospitalist on duty at [facility] 24 hours a day by calling [phone] Pending Studies at Discharge: No Stand-Alone Forms: My [facility], Opioid Pain Management, Smoking Cessation Medications and DC Order Prescriptions: New Eliquis 5 mg (74 tabs) tablets,dose pack 5 mg PO UD Qty: 74 RF: 0 gabapentin 100 mg Capsule 100 mg PO BID 10 Days Qty: 20 RF: 0 oxycodone 5 mg Tablet 5 mg PO Q8H PRN (Reason: pain) Qty: 6 RF: 0 Continued fluoxetine 10 mg Capsule 10 mg PO QAM Qty: 30 RF: 0 acetaminophen [Tylenol Extra Strength] 500 mg Tablet 1,000 mg PO DIRECTED PRN (Reason: Pain) RF: 0 tizanidine 4 mg tablet 2 - 4 mg PO BID PRN (Reason: MUSCLE SPASMS) RF: 0 Discharge Orders: Discharge Order (Routine); Ordered 08/03/20 Ordered By: Leandro Peacock/Other Patient Handouts: Discharge Instructions for Cellulitis Admission Data Admit Date/Time: 07/27/20 04:24 Attending Provider: Leandro Larsen Admit Provider: Artie Barbosa Primary Care Provider: Jabari Pemberton Other Providers: Artie Barbosa ; Rachel Olivares ; Tj Medrano [facility] Other Interventions: Discharge Summary Assessment (RN) Last Done: 08/03/20 12:01
== END 2020-08-03 14:20 | disposition home health service (06) | DRG 300 ==
LOC: ED 22:06 → 3N 07-27 04:24 → SUATTDRO 07-27 04:24 → 3N 07-27 05:12 → 3W 07-31 19:13

== ENCOUNTER 2020-08-08 16:33 | Observation (INO) ==
[2020-08-08] MEDS ORDERED: SODIUM CHLORIDE 0.9% 1000ML 1,000 ML IV STA (17:35)
--- NOTE | 2020-08-08 17:54 | Emergency Department Note ---
Impression & Plan Weakness, Diarrhea ED Provider Note NAME: JAD DICKINSON AGE: 44 SEX: M : 1975 ARRIVES VIA: Ambulance INFORMANT: Patient, ED PROVIDER(S): Pola Philippe DO CHIEF COMPLAINT: Diarrhea HPI: The patient is a 44-year-old male who presented to the emergency department for diarrhea. The patient had multiple episodes of diarrhea prior to arrival. The patient does not have any fever. He denies having any abdominal pain but d oes note some abdominal distention. He has a history of MS and is bedbound. He has not been taking pain medications recently. He notices no cough or chest pain. The patient was treated with IV fluids by the prehospital personnel prior to arrival. He did not see his family doctor for the symptoms. The patient states his symptoms have improved somewhat. ROS: See above HPI for pertinent positives & negatives. A total of 10 systems reviewed and were otherwise negative. PAST MEDICAL HISTORY: See Below PAST SURGICAL HISTORY: See Below FAMILY HISTORY: See Below SOCIAL HISTORY: See Below HOME MEDICATIONS: See Below ALLERGIES: See Below VITALS: See Below PHYSICAL EXAMINATION: GENERAL: Patient is awake alert in no acute distress patient is resting comfortably and showing no signs of anxiety EYES: The conjunctivae are clear. The pupils are round and reactive. EARS, NOSE, MOUTH AND THROAT: The nose is without any evidence of any deformity. NECK: The neck is nontender and supple. RESPIRATORY: Normal respiratory effort is noted there is no evidence of wheezing rhonchi or rales CARDIOVASCULAR: Regular rate and rhythm noted there no murmurs rubs or gallops normal S1 normal S2. GASTROINTESTINAL: The abdomen is mildly distended. There is no tenderness guar ding rigidity. MUSCULOSKELETAL/EXTREMITIES: There is no evidence of gross deformity full range of motion is noted in the hips and shoulders. SKIN: Skin is warm and dry. NEUROLOGIC: Patient is awake alert and oriented x3 MEDICAL DECISION MAKING: The patient is a 44-year-old male who presented to the emergency department for an evaluation after having multiple loose bowel movements. The patient reported no GI bleeding. He had multiple episodes and was very weak. He has underlying medical conditions and does not have much help at home right now. I discussed the patient's laboratory and radiographic studies with him. He was treated with IV fluids in the emergency department. He was evaluated by the emergency department case filler. At this time he does not appear to be able to manage at home. He requested that he be allowed to stay in the hospital for possible placement in personal mcc. I discussed his case with the on-call [facility] er hospitalist. They have agreed to evaluate the patient in the emergency department for further management and disposition. Triage Nursing notes reviewed. Prior medical records reviewed Vital Signs: reviewed and remarkable for elevated blood pressure. Differential diagnosis: Etiologies such as appendicitis, diverticulitis, obstruction, inflammatory bowel disease, renal colic, PUD, biliary pathology, pancreatitis, mesenteric ischemia, aortic pathology, infections, genitourinary, UTI, perforated viscus, as well as others were entertained. ER treatment provided: See below Diagnostics interpreted by me: ECG: none Laboratory studies: As stated above and show below. Imaging studies: See below Consultation(s): none Past Med/Surg History Medical History Chronic pain syndrome Hypercalcemia Multiple sclerosis Obstructive uropathy 2/2 renal stone, caused RUBI, pt admitted for this and hypercalcemia 05/2018 Seizure disorder Many years ago may have had single episode, pt was never treated for this, no reoccurrence. Surgical History History of cystoscopy WITH STENT PLACEMENT 06/14/18 [facility] Family History Father Stroke Thyroid disorder Other Hypertension Kidney stones Social History Smoking Status: Never smoker Cigarettes Per Day: 0; Second Hand Exposure: Yes; Hx Alcohol Use: No Hx Substance Use: No Preferred Language: Turkish Communication Ability: Effective Switchman Required: No Beliefs That Will Affect Care: None marital status: Single Current Living Situation: Parent Current Living Situation Comment: brother and father at home current occupational status: disabled Feels Safe at Home: Yes Assistive Devices: Wheelchair Allergies Allergies Allergy/AdvReac Type Severity Reaction Status Date / Time No Known Allergies Allergy Verified 08/08/20 17:04 Home Meds Home Medications Medication Instructions Recorded Confirmed acetaminophen [Tylenol Extra 1,000 mg PO DIRECTED PRN 07/26/20 08/08/20 Strength] tizanidine 2 - 4 mg PO BID PRN 07/26/20 08/08/20 Previous Rx's Medication Instructions Recorded fluoxetine 10 mg PO QAM #30 cap 05/30/20 apixaban [Eliquis] 5 mg PO UD #74 ea 08/01/20 gabapentin 100 mg PO BID 10 Days #20 cap 08/03/20 oxycodone 5 mg PO Q8H PRN #6 tab 08/03/20 Results & Data (ED) Vital Signs Vital Signs - 24 hr 08/08/20 16:55 08/08/20 17:00 08/08/20 17:30 Temperature 36.8 C Temperature Source Oral Pulse Rate 93 H 81 71 Pulse Rate from SpO2 Sensor 80 71 Respiratory Rate 14 16 14 Blood Pressure 146/95 H 131/82 125/71 Blood Pressure Mean 112 98 89 Pulse Oximetry 97 97 97 Oxygen Delivery Method Room Air Room Air Room Air Sepsis New/Unexplained Change in Mental Status No Sepsis Action Taken by Nursing No Action Required 08/08/20 17:52 08/08/20 18:00 08/08/20 18:31 Temperature Temperature Source Pulse Rate 77 86 Pulse Rate from SpO2 Sensor 78 Respiratory Rate 19 23 Blood Pressure 144/103 H 135/89 Blood Pressure Mean 116 104 Pulse Oximetry 99 Oxygen Delivery Method Room Air Room Air Sepsis New/Unexplained Change in Mental Status Sepsis Action Taken by Nursing 08/08/20 19:00 08/08/20 19:30 08/08/20 20:30 Temperature Temperature Source Pulse Rate 85 82 82 Pulse Rate from SpO2 Sensor Respiratory Rate 23 17 21 Blood Pressure 155/84 H 150/97 H 142/83 H Blood Pressure Mean 107 114 102 Pulse Oximetry Oxygen Delivery Method Room Air Sepsis New/Unexplained Change in Mental Status Sepsis Action Taken by Jail Medications Current Medication List: was personally reviewed by me Laboratory Data Attestation: I reviewed the patient's lab results. Result diagrams: 08/08/20 18:17 08/08/20 18:17 Lab Results 08/08/20 08/08/20 08/08/20 Range/Units 18:17 18:17 18:17 WBC 10.12 (4.8-10.8) K/uL RBC 3.94 L (4.7-6.1) M/uL Hgb 12.9 L (14.0-18.0) g/dL Hct 38.2 L (42-52) % MCV 97.0 (80-100) fL MCH 32.7 (25-34) pg MCHC 33.8 (32-36) g/dL RDW Std Deviation 46.1 (36.4-46.3) fL RDW Coeff of Bret 13.1 (11.5-14.5) % Plt Count 311 (130-400) K/uL MPV 9.9 (7.4-10.4) fL Immature Gran % (Auto) 0.5 % Neut % (Auto) 80.7 % Lymph % (Auto) 10.3 % Hopkins % (Auto) 8.0 % Eos % (Auto) 0.3 % Baso % (Auto) 0.2 % Neut # (Auto) 8.17 H (1.4-6.5) K/uL Lymph # (Auto) 1.04 L (1.2-3.4) K/uL Hopkins # (Auto) 0.81 H (0.11-0.59) K/uL Eos # (Auto) 0.03 (0-0.5) K/uL Baso # (Auto) 0.02 (0-0.2) K/uL Immature Gran # (Auto) 0.05 H (0.00-0.02) K/uL PT 10.2 (9.0-12.0) Seconds INR 1.0 (0.9-1.1) APTT 24.4 (21.0-31.0) Seconds PTT Ratio 0.9 Sodium 142 (136-145) mmol/L Potassium 4.1 (3.5-5.1) mmol/L Chloride 113 H (98-107) mmol/L Carbon Dioxide 24 (21-32) mmol/L Anion Gap 5.0 (3-11) BUN 13 (7-18) mg/dl Creatinine 0.98 (0.6-1.4) mg/dl Est Cr Clr Drug Dosing 112.7 ml/min Est GFR ( Amer) 106.7 ml/min Est GFR (Non-Af Amer) 92.1 ml/min BUN/Creatinine Ratio 13.0 (10-20) Glucose 83 (70-99) mg/dl Calcium 9.9 (8.5-10.1) mg/dl Total Bilirubin 0.5 (0.2-1) mg/dl AST 16 (15-37) U/L ALT 51 (12-78) U/L Alkaline Phosphatase 59 (45-117) U/L Total Protein 6.4 (6.4-8.2) gm/dl Albumin 3.5 (3.4-5.0) gm/dl Globulin 2.9 (2.5-4.0) gm/dl Albumin/Globulin Ratio 1.2 (0.9-2) Lipase 224 (73-393) U/L Urine Color Urine Appearance (Clear) Urine pH (4.5-7.5) Ur Specific [place] (1.000-1.030) Urine Protein (Negative) Urine Glucose (UA) (Negative) Urine Ketones (Negative) Urine Blood (Negative) Urine Nitrite (Negative) Urine Bilirubin (Negative) Urine Urobilinogen (Negative) Ur Leukocyte Esterase (Negative) Urine RBC (0-4) /hpf Urine WBC (0-5) /hpf Ur Epithelial Cells (0-5) /lpf Urine Bacteria (Negative) Stl C. diff Tox B Gene (Neg) 08/08/20 08/08/20 Range/Units 18:38 19:25 WBC (4.8-10.8) K/uL RBC (4.7-6.1) M/uL Hgb (14.0-18.0) g/dL Hct (42-52) % MCV (80-100) fL MCH (25-34) pg MCHC (32-36) g/dL RDW Std Deviation (36.4-46.3) fL RDW Coeff of Bret (11.5-14.5) % Plt Count (130-400) K/uL MPV (7.4-10.4) fL Immature Gran % (Auto) % Neut % (Auto) % Lymph % (Auto) % Hopkins % (Auto) % Eos % (Auto) % Baso % (Auto) % Neut # (Auto) (1.4-6.5) K/uL Lymph # (Auto) (1.2-3.4) K/uL Hopkins # (Auto) (0.11-0.59) K/uL Eos # (Auto) (0-0.5) K/uL Baso # (Auto) (0-0.2) K/uL Immature Gran # (Auto) (0.00-0.02) K/uL PT (9.0-12.0) Seconds INR (0.9-1.1) APTT (21.0-31.0) Seconds PTT Ratio Sodium (136-145) mmol/L Potassium (3.5-5.1) mmol/L Chloride (98-107) mmol/L Carbon Dioxide (21-32) mmol/L Anion Gap (3-11) BUN (7-18) mg/dl Creatinine (0.6-1.4) mg/dl Est Cr Clr Drug Dosing ml/min Est GFR ( Amer) ml/min Est GFR (Non-Af Amer) ml/min BUN/Creatinine Ratio (10-20) Glucose (70-99) mg/dl Calcium (8.5-10.1) mg/dl Total Bilirubin (0.2-1) mg/dl AST (15-37) U/L ALT (12-78) U/L Alkaline Phosphatase (45-117) U/L Total Protein (6.4-8.2) gm/dl Albumin (3.4-5.0) gm/dl Globulin (2.5-4.0) gm/dl Albumin/Globulin Ratio (0.9-2) Lipase (73-393) U/L Urine Color Yellow Urine Appearance Clear (Clear) Urine pH 7.0 (4.5-7.5) Ur Specific [place] 1.020 (1.000-1.030) Urine Protein Negative (Negative) Urine Glucose (UA) Negative (Negative) Urine Ketones Negative (Negative) Urine Blood 2+ H (Negative) Urine Nitrite Negative (Negative) Urine Bilirubin Negative (Negative) Urine Urobilinogen Negative (Negative) Ur Leukocyte Esterase Negative (Negative) Urine RBC 10-30 H (0-4) /hpf Urine WBC 0-5 (0-5) /hpf Ur Epithelial Cells 0-5 (0-5) /lpf Urine Bacteria Negative (Negative) Stl C. diff Tox B Gene Negative Cdiff Gene (Neg) Administered Medications Discontinued Medications Acetaminophen (Acetaminophen 500 Mg Tab) 1,000 mg PO NOW STA Stop: 08/08/20 19:58 Last Admin: 08/08/20 19:59 Dose: 1,000 mg Documented by: [id number] Diphenoxylate HCl/Atropine (Diphenoxylate/Atropine 2.5/0.025mg Tab) 1 tab PO NOW ONE Stop: 08/08/20 20:58 Last Admin: 08/08/20 21:23 Dose: 1 tab Documented by: [id number] Sodium Chloride (Nss 1000ml) 1,000 mls @ 999 mls/hr IV .Q1H1M STA Stop: 08/08/20 18:35 Last Infusion: 08/08/20 19:15 Dose: 0 mls/hr Documented by: [id number] Admin: 08/08/20 18:14 Dose: 999 mls/hr Documented by: [id number] Imaging Data Radiologist's Impression: Chest X-Ray 08/08/20 17:35 XR chest 1V portable, XR KUB/Abdomen 1 view HISTORY: 44 years-old Male diarrhea acute generalized chest and abdominal pain with diarrhea COMPARISON: Chest radiograph 05/27/2020, 04/26/2020 TECHNIQUE: Portable AP view of the chest with KUB radiograph FINDINGS: CHEST: The cardiac silhouette is within normal limits. No pneumothorax, pleural effusion, or overt pulmonary edema. Hazy right hip perihilar opacities are like ly secondary to summation density.. Bones of the chest appear grossly intact. KUB: Left nephrolithiasis measuring up to 12 mm. Probable punctate calculi of the ri ght kidney. No ureteral calculi identified. Pelvic basin calcifications suggestive of phleboliths. Nonobstructive bowel gas pattern. No pneumatosis or pneumoperitoneum. No acute fracture. IMPRESSION: 1. No acute processes of the chest. 2. Left greater then right nephrolithiasis. No ureteral calculi identified. 3. Nonobstructive bowel gas pattern. ACT 112: Negative or not required by law. The above report was generated using voice recognition software. It may contain grammatical, syntax or spelling errors. Electronically signed by: Dc Costello M.D. 08/08/2020 6:06 PM KUB X-Ray 08/08/20 17:35 XR chest 1V portable, XR KUB/Abdomen 1 view HISTORY: 44 years-old Male diarrhea acute generalized chest and abdominal pain with diarrhea COMPARISON: Chest radiograph 05/27/2020, 04/26/2020 TECHNIQUE: Portable AP view of the chest with KUB radiograph FINDINGS: CHEST: The cardiac silhouette is within normal limits. No pneumothorax, pleural effusion, or overt pulmonary edema. Hazy right hip perihilar opacities are likely secondary to summation density.. Bones of the chest appear grossly intact. KUB: Left nephrolithiasis measuring up to 12 mm. Probable punctate calculi of the right kidney. No ureteral calculi identified. Pelvic basin calcifications suggestive of phleboliths. Nonobstructive bowel gas pattern. No pneumatosis or pneumoperitoneum. No acute fracture. IMPRESSION: 1. No acute processes of the chest. 2. Left greater then right nephrolithiasis. No ureteral calculi identified. 3. Nonobstructive bowel gas pattern. ACT 112: Negative or not required by law. The above report was generated using voice recognition software. It may contain grammatical, syntax or spelling errors. Electronically signed by: Dc Costello M.D. 08/08/2020 6:06 PM Discharge Plan Visit Data Chief Complaint: Diarrhea ED Provider: Pola Philippe Discharge Problem: Weakness, Diarrhea Patient Disposition: Being Evaluated by Hospitalist Condition: Good Forms Stand Alone Forms: [facility] [employer] Prescriptions Prescriptions: No Action fluoxetine 10 mg Capsule 10 mg PO QAM Qty: 30 RF: 0 acetaminophen [Tylenol Extra Strength] 500 mg Tablet 1,000 mg PO DIRECTED PRN (Reason: Pain) RF: 0 tizanidine 4 mg tablet 2 - 4 mg PO BID PRN (Reason: MUSCLE SPASMS) RF: 0 Eliquis 5 mg (74 tabs) tablets,dose pack 5 mg PO UD Qty: 74 RF: 0 gabapentin 100 mg Capsule 100 mg PO BID 10 Days Qty: 20 RF: 0 oxycodone 5 mg Tablet 5 mg PO Q8H PRN (Reason: pain) Qty: 6 RF: 0 Referrals Referrals: Jabari Pemberton [Primary Care Provider] - Discharge Problem: Diarrhea Qualifiers: Diarrhea type: unspecified type Qualified Code(s): R19.7 - Diarrhea, unspecified
--- NOTE | 2020-08-08 18:08 | XRay Report ---
XR chest 1V portable, XR KUB/Abdomen 1 view HISTORY: 44 years-old Male diarrhea acute generalized chest and abdominal pain with diarrhea COMPARISON: Chest radiograph 05/27/2020, 04/26/2020 TECHNIQUE: Portable AP view of the chest with KUB radiograph FINDINGS: CHEST: The cardiac silhouette is within normal limits. No pneumothorax, pleural effusion, or overt pulmonary edema. Hazy right hip perihilar opacities are likely secondary to summation density.. Bones of the c hest appear grossly intact. KUB: Left nephrolithiasis measuring up to 12 mm. Probable punctate calculi of the right kidney. No uretera l calculi identified. Pelvic basin calcifications suggestive of phleboliths. Nonobstructive bowel gas pattern. No pneumatosis or pneumoperitoneum. No acute fracture. IMPRESSION: 1. No acute processes of the chest. 2. Left greater then right nephrolithiasis. No ureteral calculi identified. 3. Nonobstructive bowel gas pattern. ACT 112: Negative or not required by law. The above report was generated using voice recognition software. It may contain grammatical, syntax o r spelling errors. Electronically signed by: Dc Costello M.D. 08/08/2020 6:06 PM
[2020-08-08 18:32] LABS: Basophils # (auto) 0.02 K/uL (0-0.2); Basophils % (auto) 0.2 %; Eosinophils # (auto) 0.03 K/uL (0-0.5); Eosinophils % (auto) 0.3 %; Hematocrit (blood only) 38.2 % (42-52); Hemoglobin 12.9 g/dL (14.0-18.0); Immature Granulocytes # (auto) 0.05 K/uL (0.00-0.02); Immature Granulocytes % (auto) 0.5 %; Lymphocytes # (auto) 1.04 K/uL (1.2-3.4); Lymphocytes % (auto) 10.3 %; Mean Corpuscular Hemoglobin 32.7 pg (25-34); Mean Corpuscular Hgb Conc 33.8 g/dL (32-36); Mean Platelet Volume 9.9 fL (7.4-10.4); Monocytes # (auto) 0.81 K/uL (0.11-0.59); Neutrophils # (auto) 8.17 K/uL (1.4-6.5); Neutrophils % (auto) 80.7 %; Platelet Count 311 K/uL (130-400); RDW Coefficient of Variation 13.1 % (11.5-14.5); RDW Standard Deviation 46.1 fL (36.4-46.3); Red Blood Count 3.94 M/uL (4.7-6.1); White Blood Count 10.12 K/uL (4.8-10.8)
[2020-08-08 18:55] LABS: Albumin Level 3.5 gm/dl (3.4-5.0); Calcium 9.9 mg/dl (8.5-10.1); Creatinine Clr Calc Pharmacy 112.7 ml/min; Est GFR (African American) 106.7 ml/min; Est GFR (Non-African American) 92.1 ml/min; Potassium 4.1 mmol/L (3.5-5.1)
[2020-08-08 18:58] LABS: Albumin Globulin Ratio 1.2 (0.9-2); Bilirubin,Total 0.5 mg/dl (0.2-1); Globulin 2.9 gm/dl (2.5-4.0); Total Protein 6.4 gm/dl (6.4-8.2)
[2020-08-08 19:02] LABS: Partial Thromboplastin Ratio 0.9; Partial Thromboplastin Time 24.4 Seconds (21.0-31.0); Prothrombin Time 10.2 Seconds (9.0-12.0)
[2020-08-08] MEDS ORDERED: ACETAMINOPHEN 500 MG TAB PO STA (19:57)
[2020-08-08 20:06] LABS: Appearance Urine Clear (Clear); Bilirubin Urine Negative (Negative); Blood Urine 2+ (Negative); Color Urine Yellow; Glucose Urine UA Negative (Negative); Ketones Urine Negative (Negative); Leukocyte Esterase Urine Negative (Negative); Nitrite Urine Negative (Negative); Protein Urine Negative (Negative); Urobilinogen Urine Negative (Negative)
[2020-08-08 20:26] LABS: Bacteria Urine Negative (Negative); Epithelial Cell Urine 0-5 /lpf (0-5); WBC Urine 0-5 /hpf (0-5)
[2020-08-08] MEDS ORDERED: DIPHENOXYLATE/ATROPINE 2.5/0.025MG TAB PO ONE (20:57)
[2020-08-09] MEDS ORDERED: ONDANSETRON INJ 2 MG/ML 2 ML VIAL IV PRN (00:01)
[2020-08-09] MEDS ORDERED: tiZANidine HCL 4 MG TABLET PO PRN (00:01)
[2020-08-09] MEDS ORDERED: ACETAMINOPHEN 500 MG TAB PO PRN (00:08)
[2020-08-09] MEDS: D5W AND 1/2NSS 1,000 ML IV SCH ×2 (00:15→12:11)
--- NOTE | 2020-08-09 00:38 | History and Physical Report ---
DATE OF ADMISSION: 08/08/2020 CHIEF COMPLAINT: Diarrhea and weakness. HISTORY OF PRESENT ILLNESS: This is a 44-year-old male with past medical history significant for multiple sclerosis, bedbound since last 10 years, currently not taking any medications, history of depression, recently in the hospital with left lower extremity cellulitis and DVT, treated with Rocephin for his cellulitis, comes here because of diarrhea. The patient says in the last few days, he is having diarrhea. Because of his pain in his left lower extremity, he is not able to get up and go to the bathroom. Generally uses a wheelchair, but because of the pain in the leg, he is having diarrhea and has difficulty going to the bathroom and is feeling weak that is why he came here. C. diff is negative, but states his diarrhea is currently improved, but because of the weakness, he wants to go to rehab. Denies any fever or chills. No chest pain, no shortness of breath, no cough, no headache, no blurred vision, no earache, no runny nose, no sore throat, no nausea. Appetite is okay. Denies any blood in the stools. Normal bladder movements. Hemodynamically stable. ALLERGIES: ASPIRIN. PAST MEDICAL HISTORY: As mentioned above. PAST SURGICAL HISTORY: Right wrist fracture, treated with cast. MEDICATIONS: The patient is currently on Eliquis 5 mg p.o. b.i.d., Tylenol p.r.n., fluoxetine 10 mg p.o. a.m., gabapentin 100 mg p.o. b.i.d., oxycodone 5 mg p.o. q.8 hours p.r.n., tizanidine 2-4 mg p.o. b.i.d. p.r.n. FAMILY HISTORY: Significant for father has thyroid disorder. Paternal grandmother has diabetes. SOCIAL HISTORY: Currently lives with family. No alcohol use, no drug use. REVIEW OF SYMPTOMS: As per HPI. Rest of review of symptoms negative. PHYSICAL EXAMINATION: GENERAL: The patient is of moderate build, not in acute distress. VITAL SIGNS: Temperature 36.8, pulse 85, respiratory rate 14, blood pressure 122/71, oxygen 99% on room air. HEENT: Pupils equal, round, and reactive to light. Oral mucosa moist. NECK: No JVD. No neck masses. CARDIOVASCULAR: S1, S2 heard, regular rate and rhythm, no murmur, no gallop. RESPIRATORY SYSTEM: Normal AP diameter. No accessory muscle use. No wheezing, no crackles. ABDOMEN: Soft, bowel sounds present, nontender. No distention. CENTRAL NERVOUS SYSTEM: Alert and oriented. Speech is clear, no facial droop. Moves extremities. EXTREMITIES: No edema, no erythema. LABORATORY DATA: WBC is 10.1, hemoglobin 12.9, hematocrit 38.2, platelets 311. PT 10.2, INR 1, APTT 24.4. Sodium 142, potassium 4.1, chloride 113, CO2 24, BUN 13, creatinine 0.9, serum glucose 83, calcium 9.9, total bilirubin 0.5, AST 16, ALT 15, alkaline phosphatase 59, lipase 224. Urinalysis has 2 blood, otherwise unremarkable. KUB x-ray: Left greater than right nephrolithiasis, nonobstructive bowel gas pattern. Chest x-ray: No acute process in the chest. ASSESSMENT AND PLAN: This is a 44-year-old male who presents with ongoing diarrhea and weakness. 1. Diarrhea and weakness, history of multiple sclerosis, mostly bedbound, uses a wheelchair to move around, but because of recent deep vein thrombosis in the lower extremities, not even able to get into wheelchair. Clostridium difficile is negative in the Emergency Room. We will follow stool cultures. Currently says diarrhea is improved. We will place him on gentle fluids. Physical therapy and occupational therapy. The patient wants to go to rehabilitation. Social service to help with discharge planning. 2. History of left lower extremity deep vein thrombosis, on Eliquis. Follow up with primary care physician. 3. History of multiple sclerosis. On tizanidine. Follow up with Neurology outpatient. 4. Deep venous thrombosis prophylaxis, on Eliquis. DISPOSITION: Admit to observation in medical floor. PT and OT. Social service to help with discharge planning. The patient wants to go to rehab. Level 1 full code. MTDD
[2020-08-09] MEDS: oxyCODONE HCL IR 5 MG TAB (IMMEDIATE RELEASE) PO PRN ×3 (00:49→17:23)
[2020-08-09 06:16] LABS: Basophils # (auto) 0.03 K/uL (0-0.2); Basophils % (auto) 0.5 %; Eosinophils # (auto) 0.08 K/uL (0-0.5); Eosinophils % (auto) 1.3 %; Hemoglobin 12.2 g/dL (14.0-18.0); Immature Granulocytes # (auto) 0.03 K/uL (0.00-0.02); Immature Granulocytes % (auto) 0.5 %; Lymphocytes # (auto) 1.65 K/uL (1.2-3.4); Lymphocytes % (auto) 26.7 %; Mean Corpuscular Hemoglobin 32.5 pg (25-34); Mean Corpuscular Volume 98.7 fL (80-100); Mean Platelet Volume 10.1 fL (7.4-10.4); Monocytes # (auto) 0.63 K/uL (0.11-0.59); Monocytes % (auto) 10.2 %; Neutrophils # (auto) 3.75 K/uL (1.4-6.5); Neutrophils % (auto) 60.8 %; Platelet Count 308 K/uL (130-400); RDW Standard Deviation 46.9 fL (36.4-46.3); Red Blood Count 3.75 M/uL (4.7-6.1); White Blood Count 6.17 K/uL (4.8-10.8)
[2020-08-09 06:52] LABS: BUN Creatinine Ratio 11.5 (10-20); Calcium 9.3 mg/dl (8.5-10.1); Creatinine Clr Calc Pharmacy 117.8 ml/min; Est GFR (African American) 120.5 ml/min; Magnesium 2.4 mg/dl (1.8-2.4); Potassium 3.7 mmol/L (3.5-5.1)
[2020-08-09] MEDS: GABAPENTIN 100 MG CAP PO SCH ×2 (08:18→20:59)
[2020-08-09] MEDS: APIXABAN 5 MG TABLET PO SCH ×2 (08:18→20:59)
[2020-08-09] MEDS: FLUoxetine HCL 10 MG CAP PO SCH (08:20)
[2020-08-09] MEDS: ACETAMINOPHEN 325 MG TAB PO PRN (09:52)
--- NOTE | 2020-08-09 13:40 | Hospitalist Progress Note ---
Date of Service August 09, 2020 Assessment & Plan (1) Weakness: Patient is a 44 yr male who presents with ongoing diarrhea and weakness. Diarrhea Likely secondary to recent antibiotic use Stool for C. difficile negative Continue gentle IV fluids Advance diet as tolerated No diarrhea today Generalized weakness Likely secondary to above, with underlying MS PT OT eval Patient prefers to go to rehab facility Left lower extremity DVT Continue Eliquis H/O Multiple sclerosis On tizanidine Follow up with Neurology DVT Px: On Eliquis. CODE STATUS Full code Disposition PT/OT prior to discharge Admission and Anticipated Discharge Date Admission Date: August 08, 2020 Subjective Patient is seen and examined at bedside Denies any diarrhea since hospitalization Reports mild left leg pain Denies chest pain, shortness of breath, dizziness, nausea, abdominal pain States feeling weak Offers no other complaints Review of Systems Review of Systems: All systems reviewed & are unremarkable except as noted in HPI & below Physical Exam Physical Exam: Physical Exam: Vitals signs as noted above General Appearance:Moderately built and nourished, no apparent distress Head: normocephalic, Atraumatic Eyes: normal inspection, EOMI Neck: supple, Trachea midline Respiratory/Chest: Normal breath sounds, CTA Cardiovascular: S1, S2, No murmur Abdomen/GI:Soft, Non tender, Bowel sounds present Extremities/Musculoskeletal:normal inspection, LLE mild tender Neurologic/Psych:AAOX3, Left LE paralyzed, LUE paresis Skin: normal color, warm Results & Data Results & Data ([facility]) Vital Signs (Past 12 Hours) Vital Signs Temp Pulse Resp BP Pulse Ox 08/09/20 07:17 36.6 C 70 16 127/76 93 Laboratory Results Short CBC 08/08/20 08/09/20 Range/Units 18:17 05:24 WBC 10.12 6.17 (4.8-10.8) K/uL Hgb 12.9 L 12.2 L (14.0-18.0) g/dL Hct 38.2 L 37.0 L (42-52) % Plt Count 311 308 (130-400) K/uL BMP 08/08/20 08/09/20 18:17 05:24 Sodium 142 143 Potassium 4.1 3.7 Chloride 113 H 115 H Carbon Dioxide 24 22 BUN 13 10 Creatinine 0.98 0.86 Glucose 83 103 H Calcium 9.9 9.3 Liver Function 08/08/20 Range/Units 18:17 Total Bilirubin 0.5 (0.2-1) mg/dl AST 16 (15-37) U/L ALT 51 (12-78) U/L Alkaline Phosphatase 59 (45-117) U/L Albumin 3.5 (3.4-5.0) gm/dl Urine 08/08/20 Range/Units 19:25 Urine Color Yellow Urine Appearance Clear (Clear) Urine pH 7.0 (4.5-7.5) Ur Specific [place] 1.020 (1.000-1.030) Urine Protein Negative (Negative) Urine Glucose (UA) Negative (Negative)
[2020-08-10] MEDS: oxyCODONE HCL IR 5 MG TAB (IMMEDIATE RELEASE) PO PRN ×3 (02:49→19:49)
[2020-08-10] MEDS: FLUoxetine HCL 10 MG CAP PO SCH (10:14)
[2020-08-10] MEDS: GABAPENTIN 100 MG CAP PO SCH ×2 (10:14→20:43)
[2020-08-10] MEDS: APIXABAN 5 MG TABLET PO SCH ×2 (10:14→20:43)
--- NOTE | 2020-08-10 16:33 | Hospitalist Progress Note ---
Date of Service August 10, 2020 Assessment & Plan (1) Weakness: Patient is a 44 yr male who presents with ongoing diarrhea and weakness. Diarrhea Likely secondary to recent antibiotic use Stool for C. difficile negative Received IV fluids Tolerates regular diet Diarrhea resolved Generalized weakness Likely secondary to above, with underlying MS PT OT eval Waiting for rehab placement Left lower extremity DVT Continue Eliquis H/O Multiple sclerosis On tizanidine Follow up with Neurology DVT Px: On Eliquis. CODE STATUS Full code Disposition Rehab when arranged Admission and Anticipated Discharge Date Admission Date: August 08, 2020 Subjective Patient is seen and examined at bedside Diarrhea resolved No new complaints left leg pain is controlled Denies chest pain, shortness of breath, dizziness, nausea, abdominal pain Waiting for rehab placement Review of Systems Review of Systems: All systems reviewed & are unremarkable except as noted in HPI & below Physical Exam Physical Exam: Physical Exam: Vitals signs as noted above General Appearance:Moderately built and nourished, no apparent distress Head: normocephalic, Atraumatic Eyes: normal inspection, EOMI Neck: supple, Trachea midline Respiratory/Chest: Normal breath sounds, CTA Cardiovascular: S1, S2, No murmur Abdomen/GI:Soft, Non tender, Bowel sounds present Extremities/Musculoskeletal:normal inspection, LLE mild tender Neurologic/Psych:AAOX3, Left LE paralyzed, LUE paresis Skin: normal color, warm Results & Data Results & Data ([facility]) Vital Signs (Past 12 Hours) Vital Signs Temp Pulse Resp BP Pulse Ox 08/10/20 14:59 36.8 C 66 16 131/78 96 08/10/20 07:03 36.5 C 67 16 139/87 96
[2020-08-10] MEDS: ACETAMINOPHEN 325 MG TAB PO PRN (19:51)
[2020-08-11] MEDS: oxyCODONE HCL IR 5 MG TAB (IMMEDIATE RELEASE) PO PRN ×3 (04:49→21:45)
[2020-08-11 05:43] LABS: Hematocrit (blood only) 40.3 % (42-52); Hemoglobin 13.6 g/dL (14.0-18.0); Mean Corpuscular Hemoglobin 32.4 pg (25-34); Mean Corpuscular Hgb Conc 33.7 g/dL (32-36); Mean Platelet Volume 9.8 fL (7.4-10.4); Platelet Count 310 K/uL (130-400); RDW Coefficient of Variation 12.8 % (11.5-14.5); RDW Standard Deviation 44.2 fL (36.4-46.3); White Blood Count 7.66 K/uL (4.8-10.8)
[2020-08-11 06:03] LABS: BUN Creatinine Ratio 16.7 (10-20); Calcium 9.6 mg/dl (8.5-10.1); Creatinine Clr Calc Pharmacy 91.3 ml/min; Est GFR (African American) 91.8 ml/min; Est GFR (Non-African American) 79.2 ml/min; Magnesium 2.3 mg/dl (1.8-2.4); Potassium 3.8 mmol/L (3.5-5.1)
[2020-08-11] MEDS: APIXABAN 5 MG TABLET PO SCH ×2 (09:56→21:46)
[2020-08-11] MEDS: GABAPENTIN 100 MG CAP PO SCH ×2 (09:56→21:46)
[2020-08-11] MEDS: FLUoxetine HCL 10 MG CAP PO SCH (09:56)
--- NOTE | 2020-08-11 14:20 | Hospitalist Progress Note ---
Date of Service August 11, 2020 Assessment & Plan (1) Weakness: Patient is a 44 yr male who presents with ongoing diarrhea and weakness. possible vial gastroenteritis GI symptoms has resolved Diarrhea no further episode today Stool for C. difficile negative Tolerates regular diet Generalized weakness Likely secondary to above, with underlying MS PT OT nikki appreciated weakness has improved gradually after GI symptoms has resolved plan to dc home in am Left lower extremity DVT Continue Eliquis H/O Multiple sclerosis On tizanidine Follow up with Neurology DVT Px: On Eliquis. CODE STATUS Full code Disposition discharge to home tomorrow Admission and Anticipated Discharge Date Admission Date: August 08, 2020 Subjective follow up visit of diarrhea , worsening of weakness : pt reports of feeling fine Diarrhea resolved, no nausea or abdominal pain No new complaints still feels weak , but symptoms has improved since admission no fever or chills, no cough or SOB Review of Systems Review of Systems: All systems reviewed & are unremarkable except as noted in Subjective Physical Exam Physical Exam: Physical exam: General: No acute distress, alert awake oriented x3 HEENT: PERRLA, EOMI, Heart: Regular S1-S2, no carotid bruit, no JVD, no lower extremity edema Lungs: Clear to auscultate, no wheeze or rales Abdomen: Soft nontender, no organomegaly Extremity: No cyanosis, no deformity, generalized weakness Neuro: No focal neurological deficit normal speech, normal visual field, Psych: Alert awake oriented x3, normal affect Results & Data Results & Data ([facility]) Vital Signs (Past 12 Hours) Vital Signs Temp Pulse Resp BP Pulse Ox 08/11/20 07:06 36.5 C 60 16 121/78 96
[2020-08-12] MEDS: oxyCODONE HCL IR 5 MG TAB (IMMEDIATE RELEASE) PO PRN (05:38)
[2020-08-12] MEDS: ACETAMINOPHEN 325 MG TAB PO PRN (05:43)
[2020-08-12] MEDS: GABAPENTIN 100 MG CAP PO SCH (08:15)
[2020-08-12] MEDS: APIXABAN 5 MG TABLET PO SCH (08:15)
[2020-08-12] MEDS: FLUoxetine HCL 10 MG CAP PO SCH (08:15)
--- NOTE | 2020-08-12 17:23 | Hospitalist Progress Note ---
Date of Service August 12, 2020 Assessment & Plan (1) Weakness: Patient is a 44 yr male who presents with ongoing diarrhea and weakness. possible vial gastroenteritis GI symptoms has resolved Diarrhea no further episode Stool for C. difficile negative Tolerates regular diet Generalized weakness Likely secondary to above, with underlying MS PT OT nikki appreciated weakness has improved gradually after GI symptoms has resolved plan to dc home in am Left lower extremity DVT Continue Eliquis H/O Multiple sclerosis On tizanidine Follow up with Neurology DVT Px: On Eliquis. CODE STATUS Full code Disposition discharge to home today Admission and Anticipated Discharge Date Admission Date: August 11, 2020 Subjective follow up visit of diarrhea , worsening of weakness : symptoms has resolved ,no diarrhea or abdominal pain no fever or chills weakness has improved stable to be discharged home today Review of Systems Review of Systems: All systems reviewed & are unremarkable except as noted in Subjective Physical Exam Physical Exam: Physical exam: General: No acute distress, alert awake oriented x3 HEENT: PERRLA, EOMI, Heart: Regular S1-S2, no carotid bruit, no JVD, no lower extremity edema Lungs: Clear to auscultate, no wheeze or rales Abdomen: Soft nontender, no organomegaly Extremity: No cyanosis, no deformity, Neuro: No focal neurological deficit normal speech, normal visual field, Psych: Alert awake oriented x3, normal affect Results & Data Results & Data ([facility]) Vital Signs (Past 12 Hours) Vital Signs Temp Pulse Resp BP BP Pulse Ox 08/12/20 08:39 36.6 C 65 16 115/72 129/68 95 08/12/20 07:09 36.6 C 65 16 115/72 95
--- NOTE | 2020-08-12 17:53 | Discharge Summary ---
Date of Service August 12, 2020 Admission HPI Per Admitting Provider DICTATED BY: Artie Barbosa MD DATE OF ADMISSION: 08/08/2020 CHIEF COMPLAINT: Diarrhea and weakness. HISTORY OF PRESENT ILLNESS: This is a 44-year-old male with past medical history significant for multiple sclerosis, bedbound since last 10 years, currently not taking any medications, history of depression, recently in the hospital with left lower extremity cellulitis and DVT, treated with Rocephin for his cellulitis, comes here because of diarrhea. The patient says in the last few days, he is having diarrhea. Because of his pain in his left lower extremity, he is not able to get up and go to the bathroom. Generally uses a wheelchair, but because of the pain in the leg, he is having diarrhea and has difficulty going to the bathroom and is feeling weak that is why he came here. C. diff is negative, but states his diarrhea is currently improved, but because of the weakness, he wants to go to rehab. Denies any fever or chills. No chest pain, no shortness of breath, no cough, no headache, no blurred vision, no earache, no runny nose, no sore throat, no nausea. Appetite is okay. Denies any blood in the stools. Normal bladder movements. Hemodynamically stable. Principal Diagnosis Multiple sclerosis Generalized weakness Diarrhea: Symptom has resolved Lower extremity DVT on Eliquis Cellulitis of left lower extremity Discharge Exam Physical exam: General: No acute distress, alert awake oriented x3 HEENT: PERRLA, EOMI, Heart: Regular S1-S2, no carotid bruit, no JVD, no lower extremity edema Lungs: Clear to auscultate, no wheeze or rales Abdomen: Soft nontender, no organomegaly Extremity: No cyanosis, no deformity, Neuro: No focal neurological deficit normal speech, normal visual field, Psych: Alert awake oriented x3, normal affect Discharge Data Allergies Allergy/AdvReac Type Severity Reaction Status Date / Time No Known Allergies Allergy Verified 08/08/20 17:04 Consultations 08/08/20 21:30 ED Decision to Admit Stat Hospital Course (1) Weakness: Patient is a 44 yr male who presents with ongoing diarrhea and weakness. possible vial gastroenteritis GI symptoms has resolved Diarrhea no further episode Stool for C. difficile negative Tolerates regular diet Generalized weakness Likely secondary to above, with underlying MS PT OT nikki appreciated weakness has improved gradually after GI symptoms has resolved plan to dc home in am Left lower extremity DVT Continue Eliquis H/O Multiple sclerosis On tizanidine Follow up with Neurology DVT Px: On Eliquis. CODE STATUS Full code Disposition discharge to home today Total Time Total Time Spent Total Time Spent (In Minutes): 35 min Total Time Includes: Discharge Planning and Medication Reconciliation Discharge Plan Discharge Items Patient Disposition: Home - Home Health Services Reason For Visit: DIARRHEA Discharge Diagnosis: Multiple sclerosis Generalized weakness Diarrhea: Symptom has resolved Lower extremity DVT on Eliquis Cellulitis of left lower extremity Condition on Discharge: Good Activity: As commented below Activity Comment: As tolerated Non-emergency contact: Primary Care Provider Call non-emergency contact if: you have any medication questions Follow-up/Referrals: Jabari Pemberton [Primary Care Provider] - (Hospital follow-up with family physician in a week please call to schedule an appointment) Diet: Regular Addtl Attending Provider Instructions: Please take all medications as instructed on discharge list below. It is recommended that you follow-up with your primary care physician within 1-2 weeks of hospital discharge to ensure you are still doing well. Please call if you have any questions or problems. You can reach a [facility] hospitalist on duty at [facility] 24 hours a day by calling [phone] Pending Studies at Discharge: No Stand-Alone Forms: My [facility] [address], Smoking Cessation Medications and DC Order Prescriptions: New oxycodone 5 mg Tablet 5 mg PO Q8H PRN (Reason: pain) Qty: 10 RF: 0 Continued fluoxetine 10 mg Capsule 10 mg PO QAM Qty: 30 RF: 0 acetaminophen [Tylenol Extra Strength] 500 mg Tablet 1,000 mg PO DIRECTED PRN (Reason: Pain) RF: 0 tizanidine 4 mg tablet 2 - 4 mg PO BID PRN (Reason: MUSCLE SPASMS) RF: 0 Eliquis 5 mg (74 tabs) tablets,dose pack 5 mg PO UD Qty: 74 RF: 0 gabapentin 100 mg Capsule 100 mg PO BID 10 Days Qty: 20 RF: 0 oxycodone 5 mg Tablet 5 mg PO Q8H PRN (Reason: pain) Qty: 6 RF: 0 Discharge Orders: Discharge Order (Routine); Ordered 08/12/20 Ordered By: Marianne Peacock/Other Patient Handouts: Treating Diarrhea, ED Diarrhea, Unknown Cause Admission Data Admit Date/Time: 08/11/20 14:44 Attending Provider: Marianne Chavez Admit Provider: Artie Barbosa Primary Care Provider: Jabari Pemberton Other Providers: Artie Barbosa ; [facility] ; [facility] ; Leandro Larsen Other Interventions: Discharge Summary Assessment (RN) Last Done: 08/12/20 08:39
== END 2020-08-12 13:20 | disposition home health service (06) | DRG 392 ==
LOC: 3W 16:33 → ED 16:33 → SUATTDRO 22:45 → 3W 23:28

== ENCOUNTER 2020-09-11 05:12 | Inpatient (IN) ==
--- NOTE | 2020-09-11 05:22 | Emergency Department Note ---
History of Present Illness General Chief complaint: Weakness Stated complaint: WEAK/NAUSEA Time Seen by Provider: 09/11/20 05:18 Source: patient and RN notes reviewed Mode of arrival: EMS Limitations: no limitations History of Present Illness Provider complaint: While I am before so I still do not know how to-year-old [id number] his [address] as Patient is a 44-year-old male who presents emergency department with complaints of generalized weakness and bowel incontinence. Patient has a history of MS and DVT. He is complaining of left leg pain and left sided numbness. He states this is typical for his MS exacerbations. He is not able to wear the brace on his leg when he is supposed to due to lower extremity edema. He does take Eliquis for a history of DVT. Patient had an ultrasound of this lower extremity several weeks ago that indicates a chronic thrombus. He denies any fevers, chills, blood in the stool. He states he is unable to care for himself and he lives with his father who is not able to help. He is supposed to be having in- home care however this has not come to fruition. He states he is "waiting for the call." He did have some vomiting and dry heaving last evening. He denies any significant abdominal pain. Home Medications Medication Instructions Recorded Confirmed Type fluoxetine 10 mg PO QAM #30 cap 05/30/20 08/08/20 Rx acetaminophen [Tylenol Extra 1,000 mg PO DIRECTED PRN 07/26/20 08/08/20 History Strength] tizanidine 2 - 4 mg PO BID PRN 07/26/20 08/08/20 History Eliquis 5 mg PO UD #74 ea 08/01/20 08/08/20 Rx oxycodone 5 mg PO Q8H PRN #6 tab 08/03/20 08/08/20 Rx oxycodone 5 mg PO Q8H PRN #10 tab 08/12/20 Rx Allergies Allergy/AdvReac Type Severity Reaction Status Date / Time No Known Allergies Allergy Verified 08/08/20 17:04 Past Med/Surg History Medical History Chronic pain syndrome Hypercalcemia Multiple sclerosis Obstructive uropathy 2/2 renal stone, caused RUBI, pt admitted for this and hypercalcemia 05/2018 Seizure disorder Many years ago may have had single episode, pt was never treated for this, no reoccurrence. Surgical History History of cystoscopy WITH STENT PLACEMENT 06/14/18 [facility] Family History Father Stroke Thyroid disorder Other Hypertension Kidney stones Social History Smoking Status: Never smoker Cigarettes Per Day: 0; Second Hand Exposure: No; Hx Alcohol Use: No Hx Substance Use: No Preferred Language: Burkinan Communication Ability: Effective Pen Maker Required: No Beliefs That Will Affect Care: None marital status: Current Living Situation: Parent Current Living Situation Comment: brother and father at home current occupational status: disabled How many Children do You have: 2 Feels Safe at Home: Yes Assistive Devices: Wheelchair Review of Systems See HPI for pertinent positives & negatives. and A total of 10 systems reviewed and were otherwise negative Physical Exam Vital Signs Vital Signs - 24 hr 09/11/20 05:28 09/11/20 05:59 09/11/20 06:08 Temperature 36.6 C Temperature Source Temporal Artery Scan Pulse Rate 78 Pulse Rate [Left Finger] Pulse Rhythm [Left Finger] Pulse Strength [Left Finger] Respiratory Rate 20 Respiratory Effort / Characteristics Respiratory Depth Normal Blood Pressure 137/80 Blood Pressure [Left Arm] Blood Pressure Mean 99 Blood Pressure Mean [Left Arm] Blood Pressure Position Sitting Blood Pressure Position [Left Arm] Pulse Oximetry 98 98 Oxygen Delivery Method Room Air Room Air Room Air Sepsis Recent Fever Within 48 Hours No Sepsis New/Unexplained Change in Mental Status N/A Sepsis Action Taken by Nursing No Action Required 09/11/20 06:57 Temperature Temperature Source Pulse Rate Pulse Rate [Left Finger] 68 Pulse Rhythm [Left Finger] Regular Pulse Strength [Left Finger] Normal Respiratory Rate 20 Respiratory Effort / Characteristics Non-Labored Spontaneous Respiratory Depth Normal Blood Pressure Blood Pressure [Left Arm] 140/70 Blood Pressure Mean Blood Pressure Mean [Left Arm] 93 Blood Pressure Position Blood Pressure Position [Left Arm] Sitting Pulse Oximetry 96 Oxygen Delivery Method Room Air Sepsis Recent Fever Within 48 Hours Sepsis New/Unexplained Change in Mental Status Sepsis Action Taken by Nursing Vital signs reviewed. General: Chronically ill-appearing 44 yo male, in no significant distress. HEENT: No scleral icterus, PERRLA, neck supple. Atraumatic. Cardiovascular: Regular rate and rhythm, no extra sounds. Pulmonary: Clear to auscultation bilaterally, normal work of breathing. Abdomen: Soft, nontender, nondistended, positive bowel sounds. Musculoskeletal: Atraumatic, no peripheral edema. Generalized atrophy, pitting edema BLE, mild LLE erythema distally. Neurologic: Patient awake alert and oriented x 3 Skin: Warm, dry, no rash Course Administered Medications Sodium Chloride (Nss 1000ml) 1,000 mls @ 125 mls/hr IV .Q8H MANJINDER Stop: 09/11/20 14:14 Last Admin: 09/11/20 06:14 Dose: 125 mls/hr Documented by: [id number] Medical Decision Making Differential Diagnosis Gastroenteritis, food borne illness, infections, MS exacerbation, diverticulitis, inflammatory bowel disease, obstruction, GI bleed, biliary pathology, volvulus, as well as other pathologies. Medical Records Attestation: I reviewed the patient's medical records. Home Medications Current Medication List: was personally reviewed by me Laboratory Data Attestation: I reviewed the patient's lab results. Result diagrams: 09/11/20 06:00 09/11/20 06:00 Lab Results 09/11/20 09/11/20 09/11/20 Range/Units 06:00 06:00 06:00 WBC 9.42 (4.8-10.8) K/uL RBC 4.25 L (4.7-6.1) M/uL Hgb 13.7 L (14.0-18.0) g/dL Hct 41.1 L (42-52) % MCV 96.7 (80-100) fL MCH 32.2 (25-34) pg MCHC 33.3 (32-36) g/dL RDW Std Deviation 45.0 (36.4-46.3) fL RDW Coeff of Bret 12.8 (11.5-14.5) % Plt Count 278 (130-400) K/uL MPV 9.8 (7.4-10.4) fL Immature Gran % (Auto) 0.2 % Neut % (Auto) 78.8 % Lymph % (Auto) 10.0 % [place] % (Auto) 10.4 % Eos % (Auto) 0.4 % Baso % (Auto) 0.2 % Neut # (Auto) 7.42 H (1.4-6.5) K/uL Lymph # (Auto) 0.94 L (1.2-3.4) K/uL [place] # (Auto) 0.98 H (0.11-0.59) K/uL Eos # (Auto) 0.04 (0-0.5) K/uL Baso # (Auto) 0.02 (0-0.2) K/uL Immature Gran # (Auto) 0.02 (0.00-0.02) K/uL Sodium 139 (136-145) mmol/L Potassium 3.9 (3.5-5.1) mmol/L Chloride 107 (98-107) mmol/L Carbon Dioxide 29 (21-32) mmol/L Anion Gap 3.0 (3-11) BUN 13 (7-18) mg/dl Creatinine 0.99 (0.6-1.4) mg/dl Est Cr Clr Drug Dosing 111.9 ml/min Est GFR ( Amer) 105.4 ml/min Est GFR (Non-Af Amer) 91.0 ml/min BUN/Creatinine Ratio 13.0 (10-20) Glucose 99 (70-99) mg/dl Lactate (0.4-2.0) mmol/L Calcium 11.0 H (8.5-10.1) mg/dl Magnesium 2.3 (1.8-2.4) mg/dl Total Bilirubin 0.3 (0.2-1) mg/dl AST 12 L (15-37) U/L ALT 33 (12-78) U/L Alkaline Phosphatase 66 (45-117) U/L Total Protein 7.2 (6.4-8.2) gm/dl Albumin 4.0 (3.4-5.0) gm/dl Globulin 3.2 (2.5-4.0) gm/dl Albumin/Globulin Ratio 1.3 (0.9-2) Urine Color Yellow Urine Appearance Clear (Clear) Urine pH 7.0 (4.5-7.5) Ur Specific [place] 1.007 (1.000-1.030) Urine Protein Negative (Negative) Urine Glucose (UA) Negative (Negative) Urine Ketones Negative (Negative) Urine Blood 2+ H (Negative) Urine Nitrite Negative (Negative) Urine Bilirubin Negative (Negative) Urine Urobilinogen Negative (Negative) Ur Leukocyte Esterase Negative (Negative) Urine WBC (Auto) 1-5 (0-5) /hpf Urine RBC (Auto) 0-4 (0-4) /hpf U Hyaline Cast (Auto) 0 (0-5) /lpf U Epithel Cells (Auto) 5-10 H (0-5) /lpf Urine Bacteria (Auto) Negative (Negative) COVID-19 Eval Order 09/11/20 09/11/20 Range/Units 06:06 06:49 WBC (4.8-10.8) K/uL RBC (4.7-6.1) M/uL Hgb (14.0-18.0) g/dL Hct (42-52) % MCV (80-100) fL MCH (25-34) pg MCHC (32-36) g/dL RDW Std Deviation (36.4-46.3) fL RDW Coeff of Bret (11.5-14.5) % Plt Count (130-400) K/uL MPV (7.4-10.4) fL Immature Gran % (Auto) % Neut % (Auto) % Lymph % (Auto) % [place] % (Auto) % Eos % (Auto) % Baso % (Auto) % Neut # (Auto) (1.4-6.5) K/uL Lymph # (Auto) (1.2-3.4) K/uL [place] # (Auto) (0.11-0.59) K/uL Eos # (Auto) (0-0.5) K/uL Baso # (Auto) (0-0.2) K/uL Immature Gran # (Auto) (0.00-0.02) K/uL Sodium (136-145) mmol/L Potassium (3.5-5.1) mmol/L Chloride (98-107) mmol/L Carbon Dioxide (21-32) mmol/L Anion Gap (3-11) BUN (7-18) mg/dl Creatinine (0.6-1.4) mg/dl Est Cr Clr Drug Dosing ml/min Est GFR ( Amer) ml/min Est GFR (Non-Af Amer) ml/min BUN/Creatinine Ratio (10-20) Glucose (70-99) mg/dl Lactate 1.3 (0.4-2.0) mmol/L Calcium (8.5-10.1) mg/dl Magnesium (1.8-2.4) mg/dl Total Bilirubin (0.2-1) mg/dl AST (15-37) U/L ALT (12-78) U/L Alkaline Phosphatase (45-117) U/L Total Protein (6.4-8.2) gm/dl Albumin (3.4-5.0) gm/dl Globulin (2.5-4.0) gm/dl Albumin/Globulin Ratio (0.9-2) Urine Color Urine Appearance (Clear) Urine pH (4.5-7.5) Ur Specific [place] (1.000-1.030) Urine Protein (Negative) Urine Glucose (UA) (Negative) Urine Ketones (Negative) Urine Blood (Negative) Urine Nitrite (Negative) Urine Bilirubin (Negative) Urine Urobilinogen (Negative) Ur Leukocyte Esterase (Negative) Urine WBC (Auto) (0-5) /hpf Urine RBC (Auto) (0-4) /hpf U Hyaline Cast (Auto) (0-5) /lpf U Epithel Cells (Auto) (0-5) /lpf Urine Bacteria (Auto) (Negative) COVID-19 Eval Order Covid19 at [facility] Blood Pressure Blood Pressure Findings: Elevated blood pressure Blood Pressure Disposition: further management by hospitalist MDM Narrative This patient was evaluated and appeared to be in no significant distress. Patient was incontinent of stool upon arrival. He does appear to be chronically debilitated and has not been able to arrange in-home care through his insurance. States the patient was here for very similar circumstances at the end of July. He states he was vomiting/dry heaving and had bowel incontinence just prior to arrival. I do not think the patient is capable of ADLs sufficiently to care for himself as opposed to a true inability to control rectal sphincter tone. Stool sample has been ordered. Patient's laboratory work is fairly reassuring. Patient is currently receiving IV hydration with normal saline solution. He will be evaluated by the hospitalist service and will require case management involvement. Patient expressed understanding of the plan and agreed. Impression & Plan Diarrhea, Multiple sclerosis exacerbation Discharge Plan Visit Data Chief Complaint: Weakness Stated Complaint: WEAK/NAUSEA ED Provider: Tracey Bridges Discharge Problem: Diarrhea, Multiple sclerosis exacerbation Forms Stand Alone Forms: [facility] Prescriptions Prescriptions: No Action fluoxetine 10 mg Capsule 10 mg PO QAM Qty: 30 RF: 0 acetaminophen [Tylenol Extra Strength] 500 mg Tablet 1,000 mg PO DIRECTED PRN (Reason: Pain) RF: 0 tizanidine 4 mg tablet 2 - 4 mg PO BID PRN (Reason: MUSCLE SPASMS) RF: 0 Eliquis 5 mg (74 tabs) tablets,dose pack 5 mg PO UD Qty: 74 RF: 0 oxycodone 5 mg Tablet 5 mg PO Q8H PRN (Reason: pain) Qty: 6 RF: 0 oxycodone 5 mg Tablet 5 mg PO Q8H PRN (Reason: pain) Qty: 10 RF: 0 Discharge Problem: Diarrhea Qualifiers: Diarrhea type: unspecified type Qualified Code(s): R19.7 - Diarrhea, unspecified
[2020-09-11] MEDS ORDERED: SODIUM CHLORIDE 0.9% 1000ML 1,000 ML IV SCH ×2 (06:15→10:19)
[2020-09-11 06:30] LABS: Basophils # (auto) 0.02 K/uL (0-0.2); Basophils % (auto) 0.2 %; Eosinophils # (auto) 0.04 K/uL (0-0.5); Eosinophils % (auto) 0.4 %; Hematocrit (blood only) 41.1 % (42-52); Hemoglobin 13.7 g/dL (14.0-18.0); Immature Granulocytes # (auto) 0.02 K/uL (0.00-0.02); Immature Granulocytes % (auto) 0.2 %; Lymphocytes # (auto) 0.94 K/uL (1.2-3.4); Mean Corpuscular Hemoglobin 32.2 pg (25-34); Mean Corpuscular Hgb Conc 33.3 g/dL (32-36); Mean Corpuscular Volume 96.7 fL (80-100); Mean Platelet Volume 9.8 fL (7.4-10.4); Monocytes # (auto) 0.98 K/uL (0.11-0.59); Monocytes % (auto) 10.4 %; Neutrophils # (auto) 7.42 K/uL (1.4-6.5); Neutrophils % (auto) 78.8 %; Platelet Count 278 K/uL (130-400); RDW Coefficient of Variation 12.8 % (11.5-14.5); Red Blood Count 4.25 M/uL (4.7-6.1); White Blood Count 9.42 K/uL (4.8-10.8)
[2020-09-11 06:40] LABS: Appearance Urine Clear (Clear); Bacteria Urine Automated Negative (Negative); Bilirubin Urine Negative (Negative); Blood Urine 2+ (Negative); Cast Urine Automated 0 /lpf (0-5); Color Urine Yellow; Glucose Urine UA Negative (Negative); Ketones Urine Negative (Negative); Leukocyte Esterase Urine Negative (Negative); Nitrite Urine Negative (Negative); Protein Urine Negative (Negative); RBC Urine Automated 0-4 /hpf (0-4); Specific Gravity Urine 1.007 (1.000-1.030); Urobilinogen Urine Negative (Negative)
[2020-09-11 06:46] LABS: Creatinine Clr Calc Pharmacy 111.9 ml/min; Est GFR (African American) 105.4 ml/min; Magnesium 2.3 mg/dl (1.8-2.4); Potassium 3.9 mmol/L (3.5-5.1)
[2020-09-11 06:48] LABS: Albumin Globulin Ratio 1.3 (0.9-2); Bilirubin,Total 0.3 mg/dl (0.2-1); Globulin 3.2 gm/dl (2.5-4.0); Total Protein 7.2 gm/dl (6.4-8.2)
--- NOTE | 2020-09-11 07:57 | XRay Report ---
XR chest 1V portable CLINICAL HISTORY: weakness COMPARISON STUDY: Chest radiograph August 08, 2020. FINDINGS: Lung volumes are normal. Lungs are clear. There is no pneumothorax or pleural effusion. Car diac size is normal. Mediastinal contours are normal. There is no evidence for pulmonary edema. IMPRESSION: No acute cardiopulmonary findings. ACT 112: Negative or not required by law. Electronically signed by: Vinh Varela M.D. 09/11/2020 7:56 AM
--- NOTE | 2020-09-11 08:28 | History & Physical Report ---
Date of Service September 11, 2020 Assessment & Plan (1) Weakness: (2) Diarrhea: (3) Left leg pain: (4) Multiple sclerosis: This is a 44-year-old male who has history of longstanding MS and is wheelchair- bound with chronic left-sided weakness and pain, recent left lower extremity DVT anticoagulated on Eliquis, primary hyperparathyroidism, depression who presents to ED secondary to increasing left leg pain, weakness and bowel incontinence x1 day. Labs unremarkable, except for mild hypercalcemia. No evidence of dehydration or electrolyte abnormality. Unsure if pt history of diarrhea is accurate or if it is true bowel incontinence. No fever and no white count. Stool studies and stool for cdiff ordered. admit to med tele given increased weakness, reported bowel incontinence, worsening L leg pain and spasm will consult neurology for formal eval given hx of MS PT/OT gentle IVF 125cc/hr x 1 L give morphine 4mg x 1 now prn oxycodone and zanaflex for pain consider metamucil to help with stool incontinence 2/2 to MS pt may benefit for acute rehab (5) Lower extremity edema: likely dependent edema in nature given pt lack of mobility also contributing is LLE DVT consider low dose diuretic to alleviate swelling which may improve sx check pro bnp (6) Hypercalcemia: Ca 11 known hx of hyperparathyroidism currently not receiving active tx (7) DVT prophylaxis: eliquis dispo: med tele, likely 1-2 midnights, may need rehab placement PCP: Nilay FULL CODE Pt was seen and examined in collaboration with Dr. Scott, please see addendum History of Present Illness Chief Complaint: Left-sided leg pain, increasing weakness and bowel incontinence x1 day. Primary Care Provider: Jabari Pemberton This is a 44-year-old male who has history of longstanding MS and is wheelchair-bound with chronic left-sided weakness and pain, recent left lower extremity DVT anticoagulated on Eliquis, primary hyperparathyroidism, depression who presents to ED secondary to increasing left leg pain, weakness and bowel in continence x1 day. He lives at home with his father and patient states he is unable to care for self. He was doing well up until yesterday when he felt nauseated, dry heaves, decreased appetite and had stool incontinence. This persisted and he is unable to tell me how many bowel movements he had due to being incontinent. He chronically has incontinence with urine, but has been able to use urinal while in ED without difficulty. He states this happened approximately 1 month ago and symptoms resolved on their own despite being treated in hospital. He denies any recent fever, chills, sweats, lightheadedness, dizziness, syncope, fall, chest pain, shortness breath, cough, hemoptysis, hematemesis, URI symptoms, abdominal pain, dysuria, increased urgency or frequency with urination. He does have chronic lower extremity swelling which he feels is getting worse. He has had pain in his left leg secondary to MS but this has worsened since being diagnosed with DVT. He is wheelchair bound and spends most of the day in his wheelchair. He rarely gets in bed except to sleep. He has been compliant with his medications including Eliquis. His last dose was 4 PM yesterday. He denies any sick contacts. In ED patient made hemodynamically stable. His CBC and CMP was generally unremarkable. His calcium was elevated 11.0 in setting of known primary hyperparathyroidism. He has not followed neurology of recent. He states he is not undergoing any infusion therapy for his MS. He was started on gentle IV hydration while in ED. Allergies Allergy/AdvReac Type Severity Reaction Status Date / Time aspirin Allergy Severe airway Verified 09/11/20 08:18 edema; hives Home Medications Medication Instructions Recorded Confirmed Type acetaminophen [Tylenol Extra 1,000 mg PO DIRECTED PRN 07/26/20 09/11/20 History Strength] tizanidine [Zanaflex] 2 - 4 mg PO BID PRN 07/26/20 09/11/20 History Eliquis 5 mg PO BID 09/11/20 09/11/20 History fluoxetine [Prozac] 10 mg PO QAM 09/11/20 09/11/20 History Past Med/Surg History Medical History (Updated 09/11/20 @ 09:06 by Carlita Vo PA-C) Chronic pain syndrome Hypercalcemia Multiple sclerosis Obstructive uropathy 2/2 renal stone, caused RUBI, pt admitted for this and hypercalcemia 05/2018 Seizure disorder Many years ago may have had single episode, pt was never treated for this, no reoccurrence. Surgical History History of cystoscopy WITH STENT PLACEMENT 06/14/18 [facility] Family History Father Stroke Thyroid disorder Other Hypertension Kidney stones Social History Smoking Status: Never smoker Cigarettes Per Day: 0; Second Hand Exposure: Yes; Do You Dip or Chew Tobacco: Yes; Hx Alcohol Use: No Hx Substance Use: No Preferred Language: Monegasque Communication Ability: Effective Culled Fruit Packer Required: No Beliefs That Will Affect Care: None marital status: Current Living Situation: Parent Current Living Situation Comment: brother and father at home current occupational status: disabled How many Children do You have: 2 Feels Safe at Home: Yes Safety Concerns: Feels Safe At This Time Assistive Devices: Brace/Splint/Immobilizer and Wheelchair Review of Systems Review of Systems: All systems reviewed & are unremarkable except as noted in HPI & below Results & Data Results & Data ([facility]) Vital Signs (Past 12 Hours) Vital Signs Temp Pulse Pulse Resp BP BP Pulse Ox 09/11/20 06:57 68 20 140/70 96 09/11/20 06:08 98 09/11/20 05:28 36.6 C 78 20 137/80 98 Diagnostic Findings Chest X-Ray 09/11/20 06:05 XR chest 1V portable CLINICAL HISTORY: weakness COMPARISON STUDY: Chest radiograph August 08, 2020. FINDINGS: Lung volumes are normal. Lungs are clear. There is no pneumothorax or pleural effusion. Cardiac size is normal. Mediastinal contours are normal. There is no evidence for pulmonary edema. IMPRESSION: No acute cardiopulmonary findings. ACT 112: Negative or not required by law. Electronically signed by: Vinh Varela M.D. 09/11/2020 7:56 AM Medications Administered Medication List Sodium Chloride (Nss 1000ml) 1,000 mls @ 125 mls/hr IV .Q8H MANJINDER Stop: 09/11/20 14:14 Last Admin: 09/11/20 06:14 Dose: 125 mls/hr Documented by: [id number] ECG Rate (beats per minute): 73 Rhythm: normal sinus COVID-19 Results Results COVID-19 Adm Lab Results: RBC 4.25 M/uL (4.7-6.1) L 09/11/20 WBC 9.42 K/uL (4.8-10.8) 09/11/20 Hgb 13.7 g/dL (14.0-18.0) L 09/11/20 Hct 41.1 % (42-52) L 09/11/20 Plt Count 278 K/uL (130-400) 09/11/20 Neutrophils (%) (Auto) 78.8 % 09/11/20 Lymphocytes (%) (Auto) 10.0 % 09/11/20 Monocytes # (Auto) 0.98 K/uL (0.11-0.59) H 09/11/20 Eosinophils # (Auto) 0.04 K/uL (0-0.5) 09/11/20 Immature Granulocyte % (Auto) 0.2 % 09/11/20 Neutrophils # (Auto) 7.42 K/uL (1.4-6.5) H 09/11/20 Lymphocytes # (Auto) 0.94 K/uL (1.2-3.4) L 09/11/20 Monocytes # (Auto) 0.98 K/uL (0.11-0.59) H 09/11/20 Eosinophils # (Auto) 0.04 K/uL (0-0.5) 09/11/20 Basophils # (Auto) 0.02 K/uL (0-0.2) 09/11/20 Immature Granulocyte # (Auto) 0.02 K/uL (0.00-0.02) 09/11/20 Na 139 mmol/L (136-145) 09/11/20 K 3.9 mmol/L (3.5-5.1) 09/11/20 Cl 107 mmol/L (98-107) 09/11/20 CO2 29 mmol/L (21-32) 09/11/20 Anion Gap 3.0 (3-11) 09/11/20 BUN 13 mg/dl (7-18) 09/11/20 Creatinine 0.99 mg/dl (0.6-1.4) 09/11/20 BUN/Creatinine Ratio 13.0 (10-20) 09/11/20 Glucose Level 99 mg/dl (70-99) 09/11/20 Ca 11.0 mg/dl (8.5-10.1) H 09/11/20 Total Bilirubin 0.3 mg/dl (0.2-1) 09/11/20 AST/SGOT 12 U/L (15-37) L 09/11/20 ALT/SGPT 33 U/L (12-78) 09/11/20 Alkaline Phosphatase 66 U/L (45-117) 09/11/20 Total Protein 7.2 gm/dl (6.4-8.2) 09/11/20 Albumin 4.0 gm/dl (3.4-5.0) 09/11/20 Globulin 3.2 gm/dl (2.5-4.0) 09/11/20 Albumin/Globulin Ratio 1.3 (0.9-2) 09/11/20 BV-Wez-X-Type Natriuretic Pep 28 pg/ml (0-450) 09/11/20 COVID-19 PCR NEGATIVE (Negative) 09/11/20 Chest X-Ray 09/11/20 Code Status & VTE Plan Code Status Full Code VTE Prophylaxis Plan VTE Prophylaxis will be ordered: Yes Supervising Physician Co-Signing Physician Notes Attending addendum: The patient was seen and examined in medical telemetry unit He is a 44 years old male with significant past medical history of longstanding multiple sclerosis and is wheelchair-bound with chronic left-sided weakness and pain and also recent history of DVT involving the left lower extremity on Eliquis has been complaining of loose stool with incontinence and increasing pain at the left lower extremity since last night He denies any other symptoms during my examination On examination No apparent distress at rest Remains hemodynamically stable Chest-clear to auscultate bilaterally Heart-S1-S2, regular Abdomen-benign Extremities-bilateral leg edema more on the left than the right [employer]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 Has significant multiple sclerosis with paraparesis, weakness in left lower extremity worse than the right His admission labs, imaging studies reviewed Has diarrhea with bowel incontinence, increasing pain in the left lower extremity with longstanding history of multiple sclerosis and wheelchair-bound status We will check his stools for C. difficile and culture Will be given intravenous pain medications as needed, he does not want to have any oral narcotics on discharge We will get neurology evaluation while in the hospital Agree with assessment and plan as outlined above by ERUM [address] Dr (1) Diarrhea Diarrhea type: unspecified type Qualified Code(s): R19.7 - Diarrhea, unspecified
[2020-09-11] MEDS ORDERED: MoRPHine SULFATE 4 MG/ML 1 ML CARP\\VIAL IV STA (08:48)
[2020-09-11] MEDS ORDERED: ALUMINUM/MAGNESIUM SUSP 30 ML UDC PO PRN (10:19)
[2020-09-11] MEDS ORDERED: POLYETHYLENE (MIRALAX) 17 GM PACK PO PRN (10:19)
[2020-09-11] MEDS ORDERED: ONDANSETRON INJ 2 MG/ML 2 ML VIAL IV PRN (10:19)
[2020-09-11] MEDS ORDERED: ACETAMINOPHEN 325 MG TAB PO PRN (10:19)
[2020-09-11] MEDS: FLUoxetine HCL 10 MG CAP PO SCH (10:52)
[2020-09-11] MEDS: APIXABAN 5 MG TABLET PO SCH ×2 (11:46→21:09)
[2020-09-11] MEDS: oxyCODONE/ACETAMINOPHEN 5mg/325mg TAB PO PRN ×3 (11:46→21:09)
--- NOTE | 2020-09-11 17:51 | Progress Notes ---
DATE OF SERVICE: 09/11/2020. HISTORY OF PRESENT ILLNESS: The patient is known to me, we were asked to see him because of his hist ory of multiple sclerosis. He has been in the hospital frequently over the last several months with his last true apparent flare of multiple sclerosis being in April. He has had at least three admi ssions since that time and most recently was in for a DVT after which he indicates that he was refuse d for inpatient rehabilitation. The patient lives in his father's home, but is very hesitant to ask his father for help. He is essentially nonambulatory and is seated upright in a chair. He sleeps wi th his legs propped up on an oddment. He has intermittent bouts of incontinence. The patient has salas d episodic pain in his left lower extremity and this was worse on the day of admission, he describes it as a throbbing. He has taken gabapentin in the past for pain, but does not find that it is helpfu l. He has chronic spasticity and is taking tizanidine at home dose, possibly 4 mg twice a day. The patient also noted diarrheal stool and called 911 because of that. He denies to me that there is any new weakness, new numbness. He is currently being treated with oxy codone, which has been helpful. The patient had some home healthcare through which he received PT and OT and nursing several days a w circle, that has now ended. In terms of his history of multiple sclerosis, it sounds as if he had secondarily progressive multipl e sclerosis. His last MRI several months ago, the report of which I have reviewed, showed no new les ions in the brain, cervical or thoracic region. The patient has been on a variety of medications, I believe he was on Ocrevus but I believe he had difficulty obtaining it due to transportation issues. It is also unclear whether it was helpful. He is supposed to be seeing Dr. Terra Morgan our multiple sclerosis specialist. That has not yet happened. PAST MEDICAL HISTORY: Chronic pain, hypercalcemia, multiple sclerosis, obstructive uropathy, remote single seizure. SURGICAL HISTORY: Cystoscopy with stent placement. Father, stroke, seizures, thyroid, hypertension, kidney stones. SOCIAL HISTORY: The patient does not smoke, does not drink alcohol. HOME MEDICATIONS: Listed as Tylenol, Eliquis 5 mg b.i.d., Prozac, tizanidine 2-4 mg b.i.d. p.r.n. LABORATORY DATA: White count 9.4, H and H 13.7/41, platelet count 278. Chemistry profile unremarkab le. BUN and creatinine are normal. Calcium 11. Transaminases normal. Albumin 4. Urinalysis, 2+ b lood, 5-10 epithelial cells. Chest x-ray, no acute cardiopulmonary findings. PHYSICAL EXAMINATION: GENERAL: The patient is awake and alert. He is a good historian. Speech and language are normal. VITAL SIGNS: Blood pressure is 99/61. NECK: No carotid bruits are noted. CARDIOVASCULAR: No heart murmurs are appreciable. Heart is regular rate and rhythm. EXTREMITIES: There is mild bilateral left greater than right lower extremity edema. There is nystag mus on the extremes of lateral gaze. No facial asymmetry. Right upper and right lower are about 4/5 , left upper 3+, left lower 0 to trace. Tone is increased in both lower extremities, left greater th an right. Railmx-[id number] is not dystaxic. Qsyh-ik-igol cannot be performed reliably. Reflexes are diffusely brisk. IMPRESSION: No evidence of multiple sclerosis flare. Agree with evaluation for etiology of diarrhea . Unclear if it only represents incontinence of stool. For spasticity, we agree with tizanidine 4 m g to b.i.d. and pain medications at present. I am currently assuming that this is postphlebitic pain . The patient elects not to re-try gabapentin. This patient needs in home care. He indicates that he is currently approved and in the process of ge tting care in home, which could be up to 24 hours a day. I would recommend that he not be discharged until this is in place. We will follow with you. Job ID: [id number]
--- NOTE | 2020-09-11 18:27 | Electrocardiogram Report ---
Test Reason : Blood Pressure : / mmHG Vent. Rate : 073 BPM Atrial Rate : 073 BPM P-R Int : 164 ms QRS Dur : 102 ms QT Int : 394 ms P-R-T Axes : 038 034 039 degrees QTc Int : 434 ms Normal sinus rhythm Incomplete right bundle branch block Borderline ECG When compared with ECG of 26-JUL-2020 23:35, No significant change was found Confirmed by Law Recinos ([id number]) on 09/11/2020 6:27:04 PM Referred By: REFERRED SELF Confirmed By:Camilo Recinos
[2020-09-11] MEDS: tiZANidine HCL 4 MG TABLET PO PRN (21:41)
[2020-09-12] MEDS: oxyCODONE/ACETAMINOPHEN 5mg/325mg TAB PO PRN ×4 (03:15→19:35)
[2020-09-12 07:14] LABS: Hematocrit (blood only) 38.6 % (42-52); Hemoglobin 12.3 g/dL (14.0-18.0); Mean Corpuscular Hemoglobin 31.9 pg (25-34); Mean Corpuscular Hgb Conc 31.9 g/dL (32-36); Mean Corpuscular Volume 100.3 fL (80-100); Mean Platelet Volume 9.8 fL (7.4-10.4); Platelet Count 237 K/uL (130-400); RDW Coefficient of Variation 12.8 % (11.5-14.5); RDW Standard Deviation 47.3 fL (36.4-46.3); Red Blood Count 3.85 M/uL (4.7-6.1)
[2020-09-12 07:46] LABS: BUN Creatinine Ratio 11.9 (10-20); Calcium 9.8 mg/dl (8.5-10.1); Creatinine Clr Calc Pharmacy 106.9 ml/min; Est GFR (African American) 100.5 ml/min; Est GFR (Non-African American) 86.7 ml/min; Potassium 4.2 mmol/L (3.5-5.1)
[2020-09-12] MEDS: APIXABAN 5 MG TABLET PO SCH ×2 (08:30→20:43)
[2020-09-12] MEDS: tiZANidine HCL 4 MG TABLET PO PRN (08:31)
[2020-09-12] MEDS: FLUoxetine HCL 10 MG CAP PO SCH (08:34)
--- NOTE | 2020-09-12 11:09 | Hospitalist Progress Note ---
Date of Service September 12, 2020 Assessment & Plan (1) Weakness: (2) Diarrhea: (3) Left leg pain: (4) Multiple sclerosis: (5) Lower extremity edema: (6) Hypercalcemia: (7) DVT prophylaxis: Plan: (1) Weakness: (2) Diarrhea: (3) Left leg pain: (4) Multiple sclerosis: This is a 44-year-old male who has history of longstanding MS and is wheelchair- bound with chronic left-sided weakness and pain, recent left lower extremity DVT anticoagulated on Eliquis, primary hyperparathyroidism, depression who presents to ED secondary to increasing left leg pain, weakness and bowel incontinence x1 day. Labs unremarkable, except for mild hypercalcemia. No evidence of dehydration or electrolyte abnormality. Unsure if pt history of diarrhea is accurate or if it is true bowel incontinence. No fever and no white count. Stool studies and stool for cdiff negative. admit to med/surg given increased weakness, reported bowel incontinence, worsening L leg pain and spasm will consult neurology for formal eval given hx of MS PT/OT gentle IVF 125cc/hr x 1 L give morphine 4mg x 1 now prn oxycodone and zanaflex for pain consider metamucil to help with stool incontinence 2/2 to MS pt may benefit from acute rehab (5) Lower extremity edema: likely dependent edema in nature given pt lack of mobility also contributing is LLE DVT consider low dose diuretic to alleviate swelling which may improve sx check pro bnp (6) Hypercalcemia: Ca 11 known hx of hyperparathyroidism currently not receiving active tx (7) DVT prophylaxis: eliquis dispo: med tele, likely 1-2 midnights, may need rehab placement PCP: Nilay FULL CODE Labs checked ROS-No Headache, No Visual Changes, No Nausea, No Vomiting, No Fever, No Chills, No Neck Pain or Stiffness, No Chest Pain, No Palpitations, No SOB, No SHEIKH, No Cough, No Sputum, No Wheezing, No Abdominal Pain, No Diarrhea, No Hematemesis, No Hemoptysis, No Unexpected Weight Loss, No Flank pain, No Melena, No Hematochezia, No Frequency, No Urgency, No Burning, No Hematuria, No Rashes, No Diaphoresis. Appetite is Normal Physical Exam Gen-AAO x 3, NAD, Afebrile Head-NCAT, EOMI, PERRLA, Anicteric Sclera, No Posterior Pharyngeal Erythema Neck-Supple, No JVD, No Thyromegaly, No Masses, No LAD, No Bruits Lungs-Clear to Auscultation Bilaterally, No Rales, No Rhonchi, No Wheezing, No Crepitus Chest-No S4, +S1, +S2, No S3, No Murmurs, No Rubs, No Gallops, No Ectopy Abdomen-Soft, Bowel Sounds Present, Non Tender, Non Distended, No Hepatomegaly, No Splenomegaly, No Palpable Masses, No Rebound, No Rigidity, No Guarding Musculoskeletal-Full Range of Motion Bilaterally, No CVAT Extremities-No Cyanosis, No Clubbing, No Edema Nuero-Cranial Nerves II-XII grossly intact, Motor WNL, DTRs WNL, Strength WNL, Non Focal Psych-Normal Mood Admission and Anticipated Discharge Date Admission Date: September 11, 2020 Results & Data Results & Data ([facility]) Vital Signs (Past 12 Hours) Vital Signs Temp Pulse Pulse Resp BP BP Pulse Ox 09/12/20 08:00 65 09/12/20 07:04 36.6 C 64 16 113/76 95 09/12/20 05:17 83 09/12/20 04:00 36.5 C 61 20 108/70 97 09/11/20 23:30 36.7 C 71 18 113/70 97 (1) Diarrhea Diarrhea type: unspecified type Qualified Code(s): R19.7 - Diarrhea, unspecified
--- NOTE | 2020-09-12 17:08 | Progress Notes ---
DATE OF NOTE: 09/12/2020. SUBJECTIVE: I am seeing the patient in followup. He was admitted for diarrhea and pain in his left lower extremity. He speaks of the pain in his left lower extremity, at this point in his left knee. Narcotics are somewhat helpful. It is unclear if this is neuropathic pain. The patient has not not iced any new weakness or numbness. OBJECTIVE: Exam reveals markedly increased tone in the lowers, some redness and pretibial edema in b oth lowers. No armen tenderness of the left knee. IMPRESSION: 1. Secondarily progressive multiple sclerosis. The patient should see MS Neurology, Dr. Terra Morgan as an outpatient. 2. It is unclear whether the pain in the left leg is post-phlebitic or neuropathic. Consider adding gabapentin 300 mg at bedtime for 3 days and then 300 mg b.i.d., monitoring for increased fluid retent ion. 3. Continue tizanidine for spasticity. I strongly feel the patient needs home health 22/[address] he returns home. We will sign off at present. Job ID: [id number]
[2020-09-13] MEDS: oxyCODONE/ACETAMINOPHEN 5mg/325mg TAB PO PRN ×6 (00:14→23:40)
[2020-09-13] MEDS: tiZANidine HCL 4 MG TABLET PO PRN (00:14)
[2020-09-13 07:48] LABS: Hematocrit (blood only) 38.2 % (42-52); Hemoglobin 12.6 g/dL (14.0-18.0); Mean Platelet Volume 9.7 fL (7.4-10.4); Platelet Count 218 K/uL (130-400); RDW Coefficient of Variation 12.6 % (11.5-14.5); RDW Standard Deviation 44.9 fL (36.4-46.3); Red Blood Count 3.94 M/uL (4.7-6.1)
--- NOTE | 2020-09-13 08:10 | Hospitalist Progress Note ---
Date of Service September 13, 2020 Assessment & Plan (1) Weakness: (2) Diarrhea: (3) Left leg pain: (4) Multiple sclerosis: (5) Lower extremity edema: (6) Hypercalcemia: (7) DVT prophylaxis: Plan: (1) Weakness: (2) Diarrhea: (3) Left leg pain: (4) Multiple sclerosis: This is a 44-year-old male who has history of longstanding MS and is wheelchair- bound with chronic left-sided weakness and pain, recent left lower extremity DVT anticoagulated on Eliquis, primary hyperparathyroidism, depression who presents to ED secondary to increasing left leg pain, weakness and bowel incontinence x1 day. Labs unremarkable, except for mild hypercalcemia. No evidence of dehydration or electrolyte abnormality. Unsure if pt history of diarrhea is accurate or if it is true bowel incontinence. No fever and no white count. Stool studies and stool for cdiff negative. given increased weakness, reported bowel incontinence, worsening L leg pain and spasm will consult neurology for formal eval given hx of MS PT/OT gentle IVF 125cc/hr x 1 L give morphine 4mg x 1 now prn oxycodone and zanaflex for pain pt may benefit from acute rehab (5) Lower extremity edema: likely dependent edema in nature given pt lack of mobility also contributing is LLE DVT consider low dose diuretic to alleviate swelling which may improve sx check pro bnp (6) Hypercalcemia: Ca 11 known hx of hyperparathyroidism currently not receiving active tx (7) DVT prophylaxis: eliquis dispo:Needs 24H home care, [place] when this is set up PCP: Nilay FULL CODE Labs checked ROS-No Headache, No Visual Changes, No Nausea, No Vomiting, No Fever, No Chills, No Neck Pain or Stiffness, No Chest Pain, No Palpitations, No SOB, No SHEIKH, No Cough, No Sputum, No Wheezing, No Abdominal Pain, No Diarrhea, No Hematemesis, No Hemoptysis, No Unexpected Weight Loss, No Flank pain, No Melena, No Hematochezia, No Frequency, No Urgency, No Burning, No Hematuria, No Rashes, No Diaphoresis. Appetite is Normal, +Weakness, LLE Swelling Physical Exam Gen-AAO x 3, NAD, Afebrile Head-NCAT, EOMI, PERRLA, Anicteric Sclera, No Posterior Pharyngeal Erythema Neck-Supple, No JVD, No Thyromegaly, No Masses, No LAD, No Bruits Lungs-Clear to Auscultation Bilaterally, No Rales, No Rhonchi, No Wheezing, No Crepitus Chest-No S4, +S1, +S2, No S3, No Murmurs, No Rubs, No Gallops, No Ectopy Abdomen-Soft, Bowel Sounds Present, Non Tender, Non Distended, No Hepatomegaly, No Splenomegaly, No Palpable Masses, No Rebound, No Rigidity, No Guarding Musculoskeletal-Full Range of Motion Bilaterally, No CVAT, Weak Extremities-No Cyanosis, No Clubbing, LLE Edema Nuero-Cranial Nerves II-XII grossly intact, Motor Weak, DTRs WNL, Strength Weak, Non Focal Psych-Normal Mood Admission and Anticipated Discharge Date Admission Date: September 12, 2020 Results & Data Results & Data ([facility]) Vital Signs (Past 12 Hours) Vital Signs Temp Pulse Resp BP Pulse Ox 09/13/20 07:00 36.5 C 57 L 18 143/77 H 98 09/13/20 04:22 36.5 C 55 L 18 113/70 97 09/12/20 23:56 36.8 C 69 18 132/79 97 (1) Diarrhea Diarrhea type: unspecified type Qualified Code(s): R19.7 - Diarrhea, unspecified
[2020-09-13 08:23] LABS: Albumin Level 3.2 gm/dl (3.4-5.0); BUN Creatinine Ratio 10.4 (10-20); Calcium 9.3 mg/dl (8.5-10.1); Creatinine Clr Calc Pharmacy 103.7 ml/min; Est GFR (African American) 97.1 ml/min; Est GFR (Non-African American) 83.8 ml/min; Potassium 3.8 mmol/L (3.5-5.1)
[2020-09-13 08:26] LABS: Albumin Globulin Ratio 1.1 (0.9-2); Bilirubin,Total 0.2 mg/dl (0.2-1); Globulin 2.9 gm/dl (2.5-4.0); Total Protein 6.1 gm/dl (6.4-8.2)
[2020-09-13] MEDS: APIXABAN 5 MG TABLET PO SCH ×2 (08:42→21:03)
[2020-09-13] MEDS: FLUoxetine HCL 10 MG CAP PO SCH (08:43)
[2020-09-14] MEDS: oxyCODONE/ACETAMINOPHEN 5mg/325mg TAB PO PRN ×5 (06:01→23:23)
[2020-09-14] MEDS: tiZANidine HCL 4 MG TABLET PO PRN (06:01)
[2020-09-14 07:16] LABS: Hematocrit (blood only) 40.8 % (42-52); Hemoglobin 13.5 g/dL (14.0-18.0); Mean Corpuscular Hemoglobin 32.4 pg (25-34); Mean Corpuscular Hgb Conc 33.1 g/dL (32-36); Mean Corpuscular Volume 97.8 fL (80-100); Platelet Count 252 K/uL (130-400); RDW Coefficient of Variation 12.4 % (11.5-14.5); RDW Standard Deviation 44.7 fL (36.4-46.3); Red Blood Count 4.17 M/uL (4.7-6.1); White Blood Count 6.43 K/uL (4.8-10.8)
[2020-09-14 07:48] LABS: BUN Creatinine Ratio 12.5 (10-20); Calcium 9.9 mg/dl (8.5-10.1); Creatinine Clr Calc Pharmacy 109.9 ml/min; Est GFR (African American) 104.1 ml/min; Est GFR (Non-African American) 89.9 ml/min; Potassium 3.8 mmol/L (3.5-5.1)
[2020-09-14] MEDS: FLUoxetine HCL 10 MG CAP PO SCH (08:14)
[2020-09-14] MEDS: APIXABAN 5 MG TABLET PO SCH ×2 (08:14→20:16)
--- NOTE | 2020-09-14 14:09 | Hospitalist Progress Note ---
Date of Service September 14, 2020 Assessment & Plan (1) Left leg pain: Plan: Recent DVT left leg diagnosed in June 2020, on Eliquis. This in the setting of longstanding chronic leg pain which is now concentrated moreso in his knee. Start trial of gabapentin as recommended per neuro. Continue with tizanidine as needed. Other pain medications as needed. (2) Multiple sclerosis: Plan: Chronic with diagnosis greater than 10 years ago. Patient is wheelchair-bound and manages at home, lives with father and assisted with brother. (3) Diarrhea: Plan: No issues with diarrhea since admission. (4) Lower extremity edema: Plan: Improved. Monitor for worsening edema with gabapentin initiation. (5) Hypercalcemia: Plan: 11 on admission and improved to 9.9 after IVF. Continue to monitor this as outpatient. (6) DVT prophylaxis: Plan: Eliquis Full code Disposition-to home with [facility] home health. Would need to notify Adult Prot ective Services upon his discharge so to initiate further services in the home. Haylee Lucio DO [facility] Hospitalist Admission and Anticipated Discharge Date Admission Date: September 12, 2020 Subjective 44 yo MS patient presented with acute on chronic left knee pain. Wheelchair bound and independently transfers at home typically. Lives with his father. Pt ok to start gabapentin trial now. Reports he had taken this one month ago and it wasn't very helpful, however, he is willing to try it again now. No diarrhea episodes since admission. Review of Systems Review of Systems: All systems were reviewed and negative except as indicated in HPI above. Physical Exam Physical Exam: CONSTITUTIONAL: WNWD, vitals as above, generally well- appearing EYES: normal conjunctivae, no scleral icterus ENT: external ear and nose normal, MMM RESPIRATORY: clear to auscultation bilaterally, no crackles, rales or wheezes, normal respiratory effort CARDIOVASCULAR: regular rate and rhythm, S1 and 2 heard without murmurs, gallops or rubs, no JVD, no peripheral edema GASTROINTESTINAL: soft, nontender, nondistended. MUSCULOSKELETAL: generalized weakness on right side and in his legs. Head is normocephalic and atraumatic SKIN: warm and dry NEUROLOGIC: CN 2-12 grossly intact, normal cognition, normal speech, no tremor PSYCHIATRIC: alert cooperative and oriented to person, place and time. Results & Data Results & Data ([facility]) Vital Signs (Past 12 Hours) Vital Signs Temp Pulse Resp BP Pulse Ox 09/14/20 11:16 36.5 C 55 L 16 114/69 96 Laboratory Results Short CBC 09/14/20 Range/Units 06:39 WBC 6.43 (4.8-10.8) K/uL Hgb 13.5 L (14.0-18.0) g/dL Hct 40.8 L (42-52) % Plt Count 252 (130-400) K/uL BMP 09/14/20 06:39 Sodium 140 Potassium 3.8 Chloride 112 H Carbon Dioxide 24 BUN 13 Creatinine 1.00 Glucose 88 Calcium 9.9 Medications Administered Current Inpatient Medications Acetaminophen (Acetaminophen 325 Mg Tab) 650 mg PO Q4H PRN PRN Reason: Pain or Fever Stop: 10/11/20 10:18 Last Admin: 09/12/20 08:30 Dose: 650 mg Documented by: Al Hydrox/Mg Hydrox/Simethicone (Aluminum/Magnesium Susp 30 Ml Udc) 15 ml PO Q4H PRN PRN Reason: Dyspepsia Stop: 10/11/20 10:18 Apixaban (Apixaban 5 Mg Tablet) 5 mg PO BID [facility]; Protocol Stop: 10/11/20 10:59 Last Admin: 09/14/20 08:14 Dose: 5 mg Documented by: Fluoxetine HCl (Fluoxetine Hcl 10 Mg Cap) 10 mg PO QAM [facility] Stop: 10/11/20 10:18 Last Admin: 09/14/20 08:14 Dose: 10 mg Documented by: Ondansetron HCl (Ondansetron Inj 2 Mg/Ml 2 Ml Vial) 4 mg IV Q6H PRN PRN Reason: Nausea Stop: 10/11/20 10:18 Oxycodone/Acetaminophen (Oxycodone/Acetaminophen 5mg/325mg Tab) 1 tab PO Q4H PRN PRN Reason: Pain Stop: 09/25/20 10:18 Last Admin: 09/14/20 10:34 Dose: 1 tab Documented by: Polyethylene Glycol (Polyethylene (Miralax) 17 Gm Pack) 17 gm PO DAILY PRN PRN Reason: Constipation Stop: 10/11/20 10:18 Tizanidine HCl (Tizanidine Hcl 4 Mg Tablet) 4 mg PO BID PRN PRN Reason: MUSCLE SPASMS Stop: 10/11/20 10:18 Last Admin: 09/14/20 06:01 Dose: 4 mg Documented by: (1) Diarrhea Diarrhea type: unspecified type Qualified Code(s): R19.7 - Diarrhea, unspecified
[2020-09-14] MEDS: GABAPENTIN 300 MG CAP PO SCH (17:25)
[2020-09-15] MEDS: oxyCODONE/ACETAMINOPHEN 5mg/325mg TAB PO PRN ×5 (03:41→21:08)
[2020-09-15] MEDS: tiZANidine HCL 4 MG TABLET PO PRN (03:41)
[2020-09-15] MEDS: GABAPENTIN 300 MG CAP PO SCH ×2 (08:03→21:09)
[2020-09-15] MEDS: FLUoxetine HCL 10 MG CAP PO SCH (08:03)
[2020-09-15] MEDS: APIXABAN 5 MG TABLET PO SCH ×2 (08:03→21:10)
--- NOTE | 2020-09-15 14:15 | Hospitalist Progress Note ---
Date of Service September 15, 2020 Assessment & Plan (1) Left leg pain: Plan: Recent DVT left leg diagnosed in June 2020, on Eliquis. This in the setting of longstanding chronic leg pain which is now concentrated moreso in his knee. Also with recent DVT in Left calf in June 2020 so? post phlebitic inflammatory component contributing to pain. Start trial of gabapentin as recommended per neuro has been helpful overnight in addition to narcotics as needed. (2) Multiple sclerosis: Plan: Chronic with diagnosis greater than 10 years ago. Patient is wheelchair-bound and manages at home, lives with father and assisted with brother. h/o Ocrevus use but this was stopped for logistics issues. Peripherally discussed with neurologist the possible use of Baclofen for rigidity in this patient. Suggest ion was that an outpatient MS specialist (Dr. Morgan) should see him and weigh in as increased weakness can sometimes result. Defer to outpatient specialty provider. Patient has not established with her yet. (3) Diarrhea: Plan: No issues with diarrhea since admission. He has had fecal incontinence with lying flat, and therefore, sits up to sleep. This has been ongoing for the past 6 months. Per initial neurology evaluation this admission, his last MRI was severeal months ago and was reviewed by that provider, revealing no new MS lesions in the brain, cervical or thoracic region. Fecal incontinence may be related to MS, however, patient needs to see Dr. Terra Morgan (MS specialist with [facility]) which hasn't yet happened. (4) Lower extremity edema: Plan: Improved. Monitor for worsening edema with gabapentin initiation. (5) Hypercalcemia: Plan: h/o primary hyperparathyroidism. Was prepped for parathyroidectomy in Oct 2018 under the care of [facility] [employer] Nicholas Peterson MD and ENT physician Ann Marie Tracey MD. He was lost to followup. Ca was 11 on admission and improved to 9.9 after IVF. Continue to monitor this as outpatient and reconnect with ENT as outpatient. (6) DVT prophylaxis: Plan: Eliquis Full code Disposition-[facility]. Would need to notify Adult Protective Services upon his discharge so to initiate further services in the home. Haylee Lucio DO [facility] Hospitalist Admission and Anticipated Discharge Date Admission Date: September 12, 2020 Subjective 44 yo MS patient presented with acute on chronic left knee pain. Wheelchair bound and independently transfers at home typically. Lives with his father. Reports pain is improved with gabapentin started overnight-has received two doses. Discussed baclofen for rigidity in his left leg, and he reports he hasn't tried this in the past. Uses tizanadine and reports a history of using flexeril but doesn't like the side effects. Review of Systems Review of Systems: All systems were reviewed and negative except as indicated in HPI above. Physical Exam Physical Exam: CONSTITUTIONAL: WNWD, vitals as above, generally well- appearing EYES: normal conjunctivae, no scleral icterus ENT: external ear and nose normal, MMM RESPIRATORY: clear to auscultation bilaterally, no crackles, rales or wheezes, normal respiratory effort CARDIOVASCULAR: regular rate and rhythm, S1 and 2 heard without murmurs, gallops or rubs, no JVD, no peripheral edema GASTROINTESTINAL: soft, nontender, nondistended. MUSCULOSKELETAL: Generalized weakness on left side>right. Cannot move left leg and there is rigidity even with passive movement by examiner. Left hand remains in a fist position and has to be manually straightened. Left hemianesthesia reported. Cannot dorsi or plantarflex left foot. Right sided strength is 5/5 throughout. Head is normocephalic and atraumatic SKIN: warm and dry NEUROLOGIC: CN 2-12 grossly intact, normal cognition, normal speech, no tremor PSYCHIATRIC: alert cooperative and oriented to person, place and time. Results & Data Results & Data ([facility]) Vital Signs (Past 12 Hours) Vital Signs Temp Pulse Resp BP Pulse Ox 09/15/20 07:59 36.6 C 54 L 18 109/67 98 Medications Administered Current Inpatient Medications Acetaminophen (Acetaminophen 325 Mg Tab) 650 mg PO Q4H PRN PRN Reason: Pain or Fever Stop: 10/11/20 10:18 Last Admin: 09/12/20 08:30 Dose: 650 mg Documented by: Al Hydrox/Mg Hydrox/Simethicone (Aluminum/Magnesium Susp 30 Ml Udc) 15 ml PO Q4H PRN PRN Reason: Dyspepsia Stop: 10/11/20 10:18 Apixaban (Apixaban 5 Mg Tablet) 5 mg PO BID [facility]; Protocol Stop: 10/11/20 10:59 Last Admin: 09/15/20 08:03 Dose: 5 mg Documented by: Fluoxetine HCl (Fluoxetine Hcl 10 Mg Cap) 10 mg PO QAM [facility] Stop: 10/11/20 10:18 Last Admin: 09/15/20 08:03 Dose: 10 mg Documented by: Gabapentin (Gabapentin 300 Mg Cap) 300 mg PO Q12 [facility] Stop: 10/14/20 16:14 Last Admin: 09/15/20 08:03 Dose: 300 mg Documented by: Ondansetron HCl (Ondansetron Inj 2 Mg/Ml 2 Ml Vial) 4 mg IV Q6H PRN PRN Reason: Nausea Stop: 10/11/20 10:18 Oxycodone/Acetaminophen (Oxycodone/Acetaminophen 5mg/325mg Tab) 1 tab PO Q4H PRN PRN Reason: Pain Stop: 09/25/20 10:18 Last Admin: 09/15/20 12:28 Dose: 1 tab Documented by: Polyethylene Glycol (Polyethylene (Miralax) 17 Gm Pack) 17 gm PO DAILY PRN PRN Reason: Constipation Stop: 10/11/20 10:18 Tizanidine HCl (Tizanidine Hcl 4 Mg Tablet) 4 mg PO BID PRN PRN Reason: MUSCLE SPASMS Stop: 10/11/20 10:18 Last Admin: 09/15/20 03:41 Dose: 4 mg Documented by: (1) Diarrhea Diarrhea type: unspecified type Qualified Code(s): R19.7 - Diarrhea, unspecified
[2020-09-16] MEDS: oxyCODONE/ACETAMINOPHEN 5mg/325mg TAB PO PRN ×5 (01:06→19:29)
[2020-09-16] MEDS: tiZANidine HCL 4 MG TABLET PO PRN (01:06)
[2020-09-16] MEDS: GABAPENTIN 300 MG CAP PO SCH ×2 (07:22→20:56)
[2020-09-16] MEDS: APIXABAN 5 MG TABLET PO SCH ×2 (07:22→20:56)
[2020-09-16] MEDS: FLUoxetine HCL 10 MG CAP PO SCH (07:23)
[2020-09-16 07:28] LABS: Albumin Level 3.7 gm/dl (3.4-5.0); BUN Creatinine Ratio 15.6 (10-20); Calcium 10.5 mg/dl (8.5-10.1); Creatinine Clr Calc Pharmacy 97.4 ml/min; Est GFR (African American) 99.3 ml/min; Est GFR (Non-African American) 85.7 ml/min; Magnesium 2.4 mg/dl (1.8-2.4)
[2020-09-16 07:29] LABS: Phosphorus 1.9 mg/dl (2.5-4.9)
[2020-09-16] MEDS ORDERED: SODIUM PHOSPHATE 3 MMOL/1 ML 5 ML VIAL IV ONE (08:17)
[2020-09-16] MEDS ORDERED: SODIUM PHOSPHATE 30 MMOL in SODIUM CHLORIDE 0.9% 500 ML IV ONE (09:00)
--- NOTE | 2020-09-16 16:30 | Hospitalist Progress Note ---
Date of Service September 16, 2020 Assessment & Plan (1) Left leg pain: Plan: Recent DVT left leg diagnosed in June 2020, on Eliquis. This in the setting of longstanding chronic leg pain which is now concentrated moreso in his knee. Also with recent DVT in Left calf in June 2020 so? post phlebitic inflammatory component contributing to pain. Cont gabapentin at discharge with increase to 300mg TID in one week. Using oxycodone frequently and will switch to APAP and MJ vaping . I discussed in detail the dangers of vaping wtih him, and the issues with narcotic dependence. He reports wanting to continue with current regimen and is fine with the planned transition off narcotics at discharge. He declines Tylenol at this time. (2) Multiple sclerosis: Plan: Chronic with diagnosis greater than 10 years ago. Patient is wheelchair-bound and manages at home, lives with father and assisted with brother. h/o Ocrevus use but this was stopped for logistics issues. Peripherally discussed with neurologist the possible use of Baclofen for rigidity in this patient. Suggestion was that an outpatient MS specialist (Dr. Morgan) should see him and weigh in as increased weakness can sometimes result. Defer to outpatient specialty provider. Patient has not established with her yet. Working on transportation to and from appointments. (3) Diarrhea: Plan: No issues with diarrhea since admission. He has had fecal incontinence with lying flat, and therefore, sits up to sleep. This has been ongoing for the past 6 months. Per initial neurology evaluation this admission, his last MRI was several months ago and was reviewed by that provider, revealing no new MS lesions in the brain, cervical or thoracic region. Fecal incontinence may be related to MS, however, patient needs to see Dr. Terra Morgan (MS specialist with [facility]) which hasn't yet happened. (4) Lower extremity edema: Plan: Improved. Monitor for worsening edema with gabapentin initiation. (5) Primary hyperparathyroidism: Plan: h/o primary hyperparathyroidism. Was prepped for parathyroidectomy in Oct 2018 under the care of [facility] [employer] Nicholas Peterson MD and ENT physician Ann Marie Tracey MD. He was lost to followup. Ca was 11 on admission and improved to 9.9 after IVF. Vit D and intact PTH are still pending. Phos was low and replacement given. Reconnect with ENT as outpatient. (6) DVT prophylaxis: Plan: Zohrafauziabeatriz Full code Disposition-[facility]. Would need to notify Adult Protective Services upon his discharge so to initiate further services in the home. [facility] and Anticipated Discharge Date Admission Date: September 12, 2020 Subjective 44 yo MS patient presented with acute on chronic left knee pain. Wheelchair bound and independently transfers at home typically. Lives with his father. Doing well on gabapentin and frequent oxycodone. We discussed my concern over frequent oxycodone use not being continued at discharge in light of previous narcotic dependence issues. Offered scheduled Tylenol to help reduce amount of narcotic needed for pain control. Patient states he is not concerned about losing the oxycodone at discharge tomorrow. States he uses 3 Tylenol tablets in the morning and vapes marijuana to help with pain, which is what he will continue to rely on. He otherwise he is fine with staying with tizanidine. We did discuss some logistics issues related to transportation especially to new MS specialist which is strongly recommended. He is not able to get to [facility] but may be able to do a telehealth visit which he will look into. Transportation is very limited for him, and he will need to have a service through Adult Protective Services on discharge. Review of Systems Review of Systems: All systems were reviewed and negative except as indicated in HPI above. Physical Exam Physical Exam: CONSTITUTIONAL: WNWD, vitals as above, generally well- appearing EYES: normal conjunctivae, no scleral icterus ENT: external ear and nose normal, MMM RESPIRATORY: clear to auscultation bilaterally, no crackles, rales or wheezes, normal respiratory effort CARDIOVASCULAR: regular rate and rhythm, S1 and 2 heard without murmurs, gallops or rubs, no JVD, no peripheral edema GASTROINTESTINAL: soft, nontender, nondistended. MUSCULOSKELETAL: Generalized weakness on left side>right. Rigid left leg. Left hand remains in a fist position and has to be manually straightened. Left hemianesthesia reported. Cannot dorsi or plantarflex left foot. Right sided strength is 5/5 throughout. Head is normocephalic and atraumatic SKIN: warm and dry NEUROLOGIC: CN 2-12 grossly intact, normal cognition, normal speech, no tremor PSYCHIATRIC: alert cooperative and oriented to person, place and time. Results & Data Results & Data ([facility]) Vital Signs (Past 12 Hours) Vital Signs Temp Pulse Resp BP Pulse Ox 09/16/20 07:53 36.6 C 52 L 18 129/73 94 Laboratory Results BMP 09/16/20 05:58 Sodium 140 Potassium 4.0 Chloride 110 H Carbon Dioxide 25 BUN 16 Creatinine 1.04 Glucose 83 Calcium 10.5 H Liver Function 09/16/20 Range/Units 05:58 Albumin 3.7 (3.4-5.0) gm/dl Medications Administered Current Inpatient Medications Acetaminophen (Acetaminophen 325 Mg Tab) 650 mg PO Q4H PRN PRN Reason: Pain or Fever Stop: 10/11/20 10:18 Last Admin: 09/12/20 08:30 Dose: 650 mg Documented by: Al Hydrox/Mg Hydrox/Simethicone (Aluminum/Magnesium Susp 30 Ml Udc) 15 ml PO Q4H PRN PRN Reason: Dyspepsia Stop: 10/11/20 10:18 Apixaban (Apixaban 5 Mg Tablet) 5 mg PO BID [facility]; Protocol Stop: 10/11/20 10:59 Last Admin: 09/16/20 07:22 Dose: 5 mg Documented by: Fluoxetine HCl (Fluoxetine Hcl 10 Mg Cap) 10 mg PO QAM [facility] Stop: 10/11/20 10:18 Last Admin: 09/16/20 07:23 Dose: 10 mg Documented by: Gabapentin (Gabapentin 300 Mg Cap) 300 mg PO Q12 [facility] Stop: 10/14/20 16:14 Last Admin: 09/16/20 07:22 Dose: 300 mg Documented by: Ondansetron HCl (Ondansetron Inj 2 Mg/Ml 2 Ml Vial) 4 mg IV Q6H PRN PRN Reason: Nausea Stop: 10/11/20 10:18 Oxycodone/Acetaminophen (Oxycodone/Acetaminophen 5mg/325mg Tab) 1 tab PO Q4H PRN PRN Reason: Pain Stop: 09/25/20 10:18 Last Admin: 09/16/20 15:40 Dose: 1 tab Documented by: Polyethylene Glycol (Polyethylene (Miralax) 17 Gm Pack) 17 gm PO DAILY PRN PRN Reason: Constipation Stop: 10/11/20 10:18 Tizanidine HCl (Tizanidine Hcl 4 Mg Tablet) 4 mg PO BID PRN PRN Reason: MUSCLE SPASMS Stop: 10/11/20 10:18 Last Admin: 09/16/20 01:06 Dose: 4 mg Documented by: (1) Diarrhea Diarrhea type: unspecified type Qualified Code(s): R19.7 - Diarrhea, unspecified
[2020-09-17] MEDS: oxyCODONE/ACETAMINOPHEN 5mg/325mg TAB PO PRN ×6 (00:06→23:27)
[2020-09-17] MEDS: tiZANidine HCL 4 MG TABLET PO PRN (00:06)
[2020-09-17] MEDS: APIXABAN 5 MG TABLET PO SCH ×2 (08:18→21:44)
[2020-09-17] MEDS: GABAPENTIN 300 MG CAP PO SCH ×2 (08:18→21:44)
[2020-09-17] MEDS: FLUoxetine HCL 10 MG CAP PO SCH (08:18)
--- NOTE | 2020-09-17 12:30 | Discharge Summary ---
Date of Service September 17, 2020 Admission HPI Per Admitting Provider This is a 44-year-old male who has history of longstanding MS and is wheelchair- bound with chronic left-sided weakness and pain, recent left lower extremity DVT anticoagulated on Eliquis, primary hyperparathyroidism, depression who presents to ED secondary to increasing left leg pain, weakness and bowel incontinence x1 day. He lives at home with his father and patient states he is unable to care for self. He was doing well up until yesterday when he felt nauseated, dry heaves, decreased appetite and had stool incontinence. This persisted and he is unable to tell me how many bowel movements he had due to being incontinent. He chronically has incontinence with urine, but has been able to use urinal while in ED without difficulty. He states this happened approximately 1 month ago and symptoms resolved on their own despite being treated in hospital. He denies any recent fever, chills, sweats, lightheadedness, dizziness, syncope, fall, chest pain, shortness breath, cough, hemoptysis, hematemesis, URI symptoms, abdominal pain, dysuria, increased urgency or frequency with urination. He does have chronic lower extremity swelling which he feels is getting worse. He has had pain in his left leg secondary to MS but this has worsened since being diagnosed with DVT. He is wheelchair bound and spends most of the day in his wheelchair. He rarely gets in bed except to sleep. He has been compliant with his medications including Eliquis. His last dose was 4 PM yesterday. He denies any sick contacts. In ED patient made hemodynamically stable. His CBC and CMP was generally unremarkable. His calcium was elevated 11.0 in setting of known primary hyperparathyroidism. He has not followed neurology of recent. He states he is not undergoing any infusion therapy for his MS. He was started on gentle IV hydration while in ED. 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 Has significant multiple sclerosis with paraparesis, weakness in left lower extremity worse than the right Principal Diagnosis (1) Weakness: (2) Diarrhea: (3) Left leg pain: (4) Multiple sclerosis: (5) Lower extremity edema: (6) Hypercalcemia: (7) DVT prophylaxis: Discharge Exam ROS-No Headache, No Visual Changes, No Nausea, No Vomiting, No Fever, No Chills, No Neck Pain or Stiffness, No Chest Pain, No Palpitations, No SOB, No SHEIKH, No Cough, No Sputum, No Wheezing, No Abdominal Pain, No Diarrhea, No Hematemesis, No Hemoptysis, No Unexpected Weight Loss, No Flank pain, No Melena, No Hematochezia, No Frequency, No Urgency, No Burning, No Hematuria, No Rashes, No Diaphoresis. Appetite is Normal Physical Exam Gen-AAO x 3, NAD, Afebrile Head-NCAT, EOMI, PERRLA, Anicteric Sclera, No Posterior Pharyngeal Erythema Neck-Supple, No JVD, No Thyromegaly, No Masses, No LAD, No Bruits Lungs-Clear to Auscultation Bilaterally, No Rales, No Rhonchi, No Wheezing, No Crepitus Chest-No S4, +S1, +S2, No S3, No Murmurs, No Rubs, No Gallops, No Ectopy Abdomen-Soft, Bowel Sounds Present, Non Tender, Non Distended, No Hepatomegaly, No Splenomegaly, No Palpable Masses, No Rebound, No Rigidity, No Guarding Musculoskeletal-Full Range of Motion Bilaterally, No CVAT Extremities-No Cyanosis, No Clubbing, No Edema Nuero-Cranial Nerves II-XII grossly intact, Motor WNL, DTRs WNL, Strength WNL, Non Focal Psych-Normal Mood Discharge Data Allergies Allergy/AdvReac Type Severity Reaction Status Date / Time aspirin Allergy Severe airway Verified 09/11/20 08:18 edema; hives Consultations 09/11/20 07:29 ED Decision to Admit Stat 09/11/20 10:19 Consult Neurology Routine Current Diagnoses Primary hyperparathyroidism (09/12/20) Hypercalcemia (09/12/20) Multiple sclerosis (09/12/20) Pain in left leg (09/12/20) Diarrhea, unspecified (09/12/20) Weakness (09/12/20) Localized edema (09/12/20) Encounter for prophylactic measures, unspecified (09/12/20) Allergies aspirin Allergy (Severe, Verified 09/11/20 08:18) airway edema; hives Height/Weight/Isolation Height 6 ft Weight 88.8 kg Chemistry 09/16/20 05:58 Sodium 140 Potassium 4.0 Chloride 110 H Carbon Dioxide 25 Anion Gap 5.0 BUN 16 Creatinine 1.04 Glucose 83 Hospital Course (1) Left leg pain: Recent DVT left leg diagnosed in June 2020, on Eliquis. This in the setting of longstanding chronic leg pain which is now concentrate in his knee. Also with recent DVT in Left calf in June 2020 so? post phlebitic inflammatory component contributing to pain. Cont gabapentin at discharge with increase to 300mg TID in one week. Using oxycodone frequently and will switch to APAP and MJ vaping . Dr Lucio discussed in detail the dangers of vaping with him, and the issues with narcotic dependence. He reports wanting to continue with current regimen and is fine with the planned transition off narcotics at discharge. He declines Tylenol at this time. (2) Multiple sclerosis: Chronic with diagnosis greater than 10 years ago. Patient is wheelchair- bound and manages at home, lives with father and assisted with brother. h/o Ocrevus use but this was stopped for logistics issues. Peripherally discussed with neurologist the possible use of Baclofen for rigidity in this patient. Suggestion was that an outpatient MS specialist (Dr. Morgan) should see him and weigh in as increased weakness can sometimes result. Defer to outpatient specialty provider. Patient has not established with her yet. Working on transportation to and from appointments. (3) Diarrhea: No issues with diarrhea since admission. He has had fecal incontinence with lying flat, and therefore, sits up to sleep. This has been ongoing for the past 6 months. Per initial neurology evaluation this admission, his last MRI was several months ago and was reviewed by that provider, revealing no new MS lesions in the brain, cervical or thoracic region. Fecal incontinence may be related to MS, however, patient needs to see Dr. Terra Morgan (MS specialist with [facility]) which hasn't yet happened. (4) Lower extremity edema: Improved. Monitor for worsening edema with gabapentin initiation. (5) Primary hyperparathyroidism: h/o primary hyperparathyroidism. Was prepped for parathyroidectomy in Oct 2018 under the care of [facility] Local Sales Manager Nicholas Peterson MD and ENT physician Ann Marie Tracey MD. He was lost to followup. Ca was 11 on admission and improved to 9.9 after IVF. Vit D and intact PTH are still pending. Phos was low and replacement given. Reconnect with ENT as outpatient. (6) DVT prophylaxis: Edith Full code Disposition-to home with [facility] home health. Would need to notify Adult Protective Services upon his discharge so to initiate further services in the home. I certify that this patient is under my care and that I, or a physicians surgical supply assistant working with me, had a face to-face encounter that meets the home health [id number] encounter requirements with this patient. The encounter with the patient was in whole, or in part, for the following medical condition, which is the primary reason for home health care (list medical condition): MS I certify that, based on my findings, the following services are medically necessary home health services: My clinical findings support the need for the above services because: OT Assess ADL Status and Restore Function w ADLs PT Assessment for Endurance / Balance / Strength Skilled Nsg Assessment Further, I certify that my clinical findings support that this patient is homebound (i.e. absences from home require considerable and taxing effort and are for medical reasons or adventism services or infrequently or of short duration when for other reasons) because: Supportive Aid - Wheelchair Certification for Home Health Services: Based on the above findings, I certify that this patient is confined to the home and needs intermittent retirement care, physical therapy and/or speech therapy or continues to need occupational therapy. The patient is under my care, and I have initiated the establishment of the plan of care. This patient will be followed by a physician who will periodically review the plan of care. Total Time Total Time Spent Total Time Spent (In Minutes): 45 mins Total Time Includes: Examination of the Patient, Discharge Planning, Medication Reconciliation, Communication With Other Providers and Other Discharge Plan Discharge Items Patient Disposition: Home - Home Health Services Reason For Visit: WEAKNESS, DIARRHEA Discharge Diagnosis: (1) Weakness: (2) Diarrhea: (3) Left leg pain: (4) Multiple sclerosis: (5) Lower extremity edema: (6) Hypercalcemia: (7) DVT prophylaxis: Condition on Discharge: Fair Health Concerns: Compliance and Follow up with Dr Morgan in [place] MS specialist Activity: Resume your previous activity Lifting: Gradually increase as tolerated Bathing: No limitations Sexual Activity: When tolerated Exercise/Sports: Gradually increase as tolerated Weightbearing Comment: Wheel Chair Bound Non-emergency contact: Primary Care Provider, Surgeon and Specialist Call non-emergency contact if: you have any medication questions Follow-up/Referrals: Jabari Pemberton [Primary Care Provider] - SELF,REFERRED [Non-Staff] - (Dr Terra Morgan Neurologist in [place] Dr Nicholas Peterson Endocrine for Parathyroid Dr Ann Marie Tracey ENT for Parathyroid Call for first openings) Diet: Regular Addtl Attending Provider Instructions: Follow up with Dr Nicholas Peterson Endocrine Dr Ann Marie Tracey-ENT Dr Terra Morgan MS specialist in [place] Pending Studies at Discharge: No Stand-Alone Forms: My [facility] Finalta, Opioid Pain Management, Smoking Cessation Medications and DC Order Prescriptions: New gabapentin 300 mg Capsule 300 mg PO Q12 Qty: 90 RF: 0 oxycodone-acetaminophen [Percocet] 5-325 mg Tablet 1 tab PO Q4H PRN (Reason: pain) Qty: 30 RF: 0 Continued acetaminophen [Tylenol Extra Strength] 500 mg Tablet 1,000 mg PO DIRECTED PRN (Reason: Pain) RF: 0 tizanidine [Zanaflex] 4 mg tablet 2 - 4 mg PO BID PRN (Reason: MUSCLE SPASMS) RF: 0 fluoxetine [Prozac] 10 mg capsule 10 mg PO QAM RF: 0 Eliquis 5 mg (74 tabs) tablets,dose pack 5 mg PO BID RF: 0 Discharge Orders: Discharge Order (Routine); Ordered 09/17/20 Ordered By: Krish Dunaway Admission Data Admit Date/Time: 09/12/20 11:06 Attending Provider: Krish Dunaway Admit Provider: Shahriar Scott Primary Care Provider: Jabari Pemberton Other Providers: Marianne Chavez ; Rachel Olivares ; Ku,Home Health
[2020-09-17] MEDS: FUROSEMIDE 40 MG in SYRINGE 0 ML IV SCH (16:39)
[2020-09-17] MEDS: SODIUM CHLORIDE 0.9% 1000ML 1,000 ML IV SCH (16:44)
[2020-09-17] MEDS: POT PHOSPHATE MONOBASIC W/ SOD TAB PO SCH ×2 (17:03→21:44)
[2020-09-18] MEDS: SODIUM CHLORIDE 0.9% 1000ML 1,000 ML IV SCH (02:20)
[2020-09-18] MEDS: oxyCODONE/ACETAMINOPHEN 5mg/325mg TAB PO PRN ×4 (03:48→17:11)
[2020-09-18] MEDS: FUROSEMIDE 40 MG in SYRINGE 0 ML IV SCH (03:49)
[2020-09-18 06:28] LABS: Hematocrit (blood only) 46.2 % (42-52); Hemoglobin 15.4 g/dL (14.0-18.0); Mean Corpuscular Hemoglobin 32.4 pg (25-34); Mean Corpuscular Hgb Conc 33.3 g/dL (32-36); Mean Corpuscular Volume 97.1 fL (80-100); Mean Platelet Volume 10.4 fL (7.4-10.4); Platelet Count 268 K/uL (130-400); RDW Coefficient of Variation 12.6 % (11.5-14.5); RDW Standard Deviation 44.6 fL (36.4-46.3); Red Blood Count 4.76 M/uL (4.7-6.1); White Blood Count 6.24 K/uL (4.8-10.8)
[2020-09-18 07:09] LABS: Albumin Level 4.1 gm/dl (3.4-5.0); Calcium 10.1 mg/dl (8.5-10.1); Creatinine Clr Calc Pharmacy 84.4 ml/min; Est GFR (African American) 83.5 ml/min; Est GFR (Non-African American) 72.1 ml/min; Magnesium 2.3 mg/dl (1.8-2.4); Potassium 3.9 mmol/L (3.5-5.1)
[2020-09-18 07:11] LABS: Albumin Globulin Ratio 1.1 (0.9-2); Bilirubin,Total 0.3 mg/dl (0.2-1); Globulin 3.6 gm/dl (2.5-4.0); Phosphorus 2.3 mg/dl (2.5-4.9); Total Protein 7.7 gm/dl (6.4-8.2)
[2020-09-18 07:35] VITALS: O2SAT 97
[2020-09-18] MEDS: FLUoxetine HCL 10 MG CAP PO SCH (07:53)
[2020-09-18] MEDS: POT PHOSPHATE MONOBASIC W/ SOD TAB PO SCH ×3 (07:53→17:12)
[2020-09-18] MEDS: APIXABAN 5 MG TABLET PO SCH (07:54)
[2020-09-18] MEDS: GABAPENTIN 300 MG CAP PO SCH (07:54)
--- NOTE | 2020-09-18 11:14 | Hospitalist Progress Note ---
Date of Service September 17, 2020 Assessment & Plan (1) Left leg pain: Plan: Recent DVT left leg diagnosed in June 2020, on Eliquis. This in the setting of longstanding chronic leg pain which is now concentrate in his knee. Also with recent DVT in Left calf in June 2020 so? post phlebitic inflammatory component contributing to pain. Cont gabapentin at discharge with increase to 300mg TID in one week. Using oxycodone frequently and will switch to APAP and MJ vaping . Dr Lucio discussed in detail the dangers of vaping with him, and the issues with narcotic dependence. He reports wanting to continue with current regimen and is fine with the planned transition off narcotics at discharge. He declines Tylenol at this time. (2) Multiple sclerosis: Plan: Chronic with diagnosis greater than 10 years ago. Patient is wheelchair-bound and manages at home, lives with father and assisted with brother. h/o Ocrevus use but this was stopped for logistics issues. Peripherally discussed with neurologist the possible use of Baclofen for rigidity in this patient. Suggestion was that an outpatient MS specialist (Dr. Morgan) should see him and weigh in as increased weakness can sometimes result. Defer to outpatient specialty provider. Patient has not established with her yet. Working on transportation to and from appointments. (3) Diarrhea: Plan: No issues with diarrhea since admission. He has had fecal incontinence with lying flat, and therefore, sits up to sleep. This has been ongoing for the past 6 months. Per initial neurology evaluation this admission, his last MRI was several months ago and was reviewed by that provider, revealing no new MS lesions in the brain, cervical or thoracic region. Fecal incontinence may be related to MS, however, patient needs to see Dr. Terra Morgan (MS specialist with [facility]) which hasn't yet happened. (4) Lower extremity edema: Plan: Improved. Monitor for worsening edema with gabapentin initiation. (5) Primary hyperparathyroidism: Plan: h/o primary hyperparathyroidism. Was prepped for parathyroidectomy in Oct 2018 under the care of [facility] Supervising Chef Nicholas Peterson MD and ENT physician Ann Marie Tracey MD. He was lost to followup. Ca was 11 on admission and improved to 9.9 after IVF. Vit D and intact PTH are still pending. Phos was low and replacement given. Reconnect with ENT as outpatient. (6) DVT prophylaxis: Plan: Edith Full code Disposition-[facility]. Would need to notify Adult Protective Services upon his discharge so to initiate further services in the home. Plan: DC tomorrow, No Ride today Admission and Anticipated Discharge Date Admission Date: September 12, 2020 Subjective 44 yo MS patient presented with acute on chronic left knee pain. Wheelchair bound and independently transfers at home typically. Lives with his father. Doing well on gabapentin and frequent oxycodone. We discussed my concern over frequent oxycodone use not being continued at discharge in light of previous narcotic dependence issues. Offered scheduled Tylenol to help reduce amount of narcotic needed for pain control. Patient states he is not concerned about losing the oxycodone at discharge tomorrow. States he uses 3 Tylenol tablets in the morning and vapes marijuana to help with pain, which is what he will continue to rely on. He otherwise he is fine with staying with tizanidine. We did discuss some logistics issues related to transportation especially to new MS specialist which is strongly recommended. He is not able to get to [facility] but may be able to do a telehealth visit which he will look into. Transportation is very limited for him, and he will need to have a service through Adult Protective Services on discharge. Results & Data Results & Data ([facility]) Vital Signs (Past 12 Hours) Vital Signs Temp Pulse Resp BP Pulse Ox 09/18/20 07:34 36.5 C 65 18 115/63 97 (1) Diarrhea Diarrhea type: unspecified type Qualified Code(s): R19.7 - Diarrhea, unspecified
[2020-09-18 15:39] VITALS: BP 131/79; PULSE 61; TEMP 97.5
== END 2020-09-18 18:39 | disposition home health service (06) | DRG 392 ==
LOC: 2N 05:12 → ED 05:12 → SUATTDRO 08:26 → 2N 09:42 → SUATTDRO 09-12 11:06 → 3E 09-16 19:24

== ENCOUNTER 2021-02-13 22:30 | Observation (INO) ==
--- NOTE | 2021-02-13 22:53 | Emergency Department Note ---
Impression & Plan Multiple sclerosis, DVT (deep venous thrombosis), Weakness, Left leg pain, H/O poor personal hygiene ADMIT ED Provider Note Patient arrived to the ED via ambulance/EMS HPI: The patient is a 45-year-old male with history of multiple sclerosis, history of DVT, history of left-sided foot drop, presents emergency department with a chief complaint of left leg swelling that began today. Patient states that earlier today began to have some pain and swelling in his left foot. He denies any history of trauma. States that he was unable to get to the restroom and then he defecated and urinated on himself and therefore presented to the emergency department. He does have a history of similar presentations, does have chronic pain and chronic DVT in the left lower extremity. He is on Eliquis and states he has been compliant. Denies any chest pain or shortness of breath. On arrival here to the ED the patient has a brace on his left lower extremity which he wears daily for foot drop, he is slightly disheveled appearing and malodorous but otherwise hemodynamically stable, he is alert and in no acute physical distress on my initial assessment. ROS: -MSK: Left lower extremity swelling/pain, atraumatic in nature *10 point review systems was conducted and is otherwise negative unless stated above *Outpatient medications and allergy history reviewed PE: General: Alert, NAD, malodorous, disheveled appearing HEENT: Normocephalic, atraumatic, trachea midline Eyes: Extraocular eye movement is intact, no scleral erythema Pulmonary: Clear to auscultation bilaterally, no wheezing Cardio: Regular rate and rhythm GI: Abdomen is soft, nontender : No suprapubic tenderness MSK: There is moderate swelling in the proximal dorsal aspect of the left foot without any erythema, there are no open wounds or lacerations Skin: No evidence of rash Neuro: Alert, no new focal deficits, patient reports limited mobility of the left lower extremity at baseline secondary to MS Psychiatric: Cooperative ADDENDUM - Added by Batsheva Lewis MD on 02/14/2021 1:16 AM (-08:00) Nonspecific edema involving the left lower extremity. There is increased echogenicity within the lumen of bowel and the posterior tibial vein with absent compressibility suggestive of deep venous thrombosis at this level. Although images are not available, per history, these was reported on a previous exam dated 09/26/2020. Impression: Deep venous thrombosis in one of the posterior tibial veins in a similar distribution reported on previous exam dated 09/26/2020 per report. Medical Decision Making: Patient presented with multiple issues from home today, states he has some acute on chronic pain and swelling in his left lower extremity, states he was having issues with ambulation at home today and defecated on himself and urinated on himself, he was cleaned by the bedside RN on arrival here to the ED. Patient is otherwise hemodynamically stable and in no acute physical distress on arrival. Labwork was obtained and is largely unremarkable, stable hemoglobin, no leukocytosis, there are no critical electrolyte abnormalities. Renal function is intact without evidence of RUBI. Imaging was ordered including ultrasound imaging of the left lower extremity that shows evidence of what appears to be a chronic DVT in the posterior tibial vein that is similar in distribution to exam dated 09/26/2020. Patient is noted to be on Eliquis. On re-evaluation patient tells me that he does not feel comfortable going home, states he has an elderly father that is not able to assist him much at home, states he no longer has home nursing services. He is not clear on why this is. Case management was involved in the patient's disposition, given that it is currently the middle of the night would have difficulty arranging home nursing services so that the patient could be safely discharged. Patient states he would prefer to be admitted to get this arranged or possibly be admitted to a care facility. Given patient's repeat presentations in addition to his poor hydrating and inability to go to the restroom on his own with his acute on chronic pain in his left lower extremity I do think he needs to be admitted. I discussed this with the on-call hospitalist for [facility], Dr. Ivey, the patient was accepted to observation for further care. Diagnosis: 1. Ambulatory difficulty secondary to debilitating multiple sclerosis 2. Acute on chronic left lower extremity pain 3. Chronic DVT of the left lower extremity 4. Socioeconomic concern, poor personal hygiene, and ability to accomplish activities of daily living at home Disposition: Admission Enrique Romero DO Emergency Medicine Past Med/Surg History Medical History Chronic pain syndrome Hypercalcemia Multiple sclerosis Obstructive uropathy 2/2 renal stone, caused RUBI, pt admitted for this and hypercalcemia 05/2018 Primary hyperparathyroidism Seizure disorder Many years ago may have had single episode, pt was never treated for this, no reoccurrence. Surgical History History of cystoscopy WITH STENT PLACEMENT 06/14/18 [facility] Family History Father Stroke Thyroid disorder Other Hypertension Kidney stones Social History Smoking Status: Never smoker Tobacco Type: Smokeless Tobacco (Dip or Chew) Cigarettes Per Day: 0; Second Hand Exposure: Yes; Hx Alcohol Use: No Hx Substance Use: No Preferred Language: Mauritanian Communication Ability: Effective Manager Paper Required: No Beliefs That Will Affect Care: None marital status: Current Living Situation: Parent Current Living Situation Comment: brother and father at home current occupational status: disabled How many Children do You have: 2 Feels Safe at Home: Yes Assistive Devices: None Allergies Allergies Allergy/AdvReac Type Severity Reaction Status Date / Time aspirin Allergy Severe airway Verified 11/02/20 01:10 edema; hives Home Meds Home Medications Medication Instructions Recorded Confirmed apixaban 5 mg (74 tabs) tablets in 5 mg PO BID 09/11/20 11/02/20 a dose pack (Eliquis) fluoxetine 10 mg capsule (Prozac) 10 mg PO QAM 09/11/20 11/02/20 gabapentin 300 mg capsule 300 mg PO TID 09/25/20 11/02/20 tizanidine 2 mg tablet 2 mg PO BID PRN 09/25/20 11/02/20 acetaminophen 300 mg-codeine 30 mg 1 tab PO Q6 PRN 11/02/20 11/02/20 tablet furosemide 20 mg tablet 20 mg PO DAILY 11/02/20 11/02/20 lorazepam 0.5 mg tablet 0.5 mg PO HS PRN 11/02/20 11/02/20 Results & Data (ED) Vital Signs Vital Signs - 24 hr 02/13/21 22:52 Temperature 36.7 C Temperature Source Oral Pulse Rate 78 Pulse Rhythm Regular Respiratory Rate 18 Respiratory Effort / Characteristics Non-Labored Respiratory Depth Normal Blood Pressure 138/81 Blood Pressure Mean 100 Pulse Oximetry 98 Oxygen Delivery Method Room Air Sepsis Recent Fever Within 48 Hours No Sepsis New/Unexplained Change in Mental Status No Sepsis Action Taken by Nursing No Action Required Laboratory Data Result diagrams: 02/14/21 00:27 02/14/21 00:27 Lab Results 02/14/21 02/14/21 Range/Units 00:27 00:27 WBC 8.87 (4.8-10.8) K/uL RBC 4.46 L (4.7-6.1) M/uL Hgb 14.3 (14.0-18.0) g/dL Hct 43.5 (42-52) % MCV 97.5 (80-100) fL MCH 32.1 (25-34) pg MCHC 32.9 (32-36) g/dL RDW Std Deviation 44.8 (36.4-46.3) fL RDW Coeff of Bret 12.6 (11.5-14.5) % Plt Count 248 (130-400) K/uL MPV 10.2 (7.4-10.4) fL Immature Gran % (Auto) 0.6 % Neut % (Auto) 78.9 % Lymph % (Auto) 9.8 % [place] % (Auto) 10.0 % Eos % (Auto) 0.5 % Baso % (Auto) 0.2 % Neut # (Auto) 7.00 H (1.4-6.5) K/uL Lymph # (Auto) 0.87 L (1.2-3.4) K/uL [place] # (Auto) 0.89 H (0.11-0.59) K/uL Eos # (Auto) 0.04 (0-0.5) K/uL Baso # (Auto) 0.02 (0-0.2) K/uL Immature Gran # (Auto) 0.05 H (0.00-0.02) K/uL Sodium 141 (136-145) mmol/L Potassium (3.5-5.1) mmol/L Chloride 109 H (98-107) mmol/L Carbon Dioxide 27 (21-32) mmol/L Anion Gap 4.0 (3-11) BUN 14 (7-18) mg/dl Creatinine 1.09 (0.6-1.4) mg/dl Est Cr Clr Drug Dosing 86.5 ml/min Est GFR ( Amer) 93.2 ml/min Est GFR (Non-Af Amer) 80.4 ml/min BUN/Creatinine Ratio 13.2 (10-20) Glucose 99 (70-99) mg/dl Calcium 10.1 (8.5-10.1) mg/dl Total Bilirubin 0.6 (0.2-1) mg/dl AST (15-37) U/L ALT 37 (12-78) Alkaline Phosphatase 86 (45-117) U/L Total Protein 6.7 (6.4-8.2) gm/dl Albumin 3.2 L (3.4-5.0) gm/dl Globulin 3.5 (2.5-4.0) gm/dl Albumin/Globulin Ratio 0.9 (0.9-2) Discharge Plan Visit Data Chief Complaint: Leg Injury/Pain Stated Complaint: LEG PAIN ED Provider: Enrique Romero Discharge Problem: Multiple sclerosis, DVT (deep venous thrombosis), Weakness, Left leg pain, H/O poor personal hygiene Forms Stand Alone Forms: [facility] Prescriptions Prescriptions: No Action acetaminophen-codeine 300-30 mg tablet 1 tab PO Q6 PRN (Reason: Pain) RF: 0 lorazepam 0.5 mg tablet 0.5 mg PO HS PRN (Reason: Anxiety) RF: 0 furosemide 20 mg tablet 20 mg PO DAILY RF: 0 fluoxetine [Prozac] 10 mg capsule 10 mg PO QAM RF: 0 Eliquis 5 mg (74 tabs) tablets,dose pack 5 mg PO BID RF: 0 tizanidine 2 mg tablet 2 mg PO BID PRN (Reason: Muscle Spasm) RF: 0 gabapentin 300 mg capsule 300 mg PO TID RF: 0 Referrals Referrals: Jabari Pemberton [Primary Care Provider] - Discharge Problem: DVT (deep venous thrombosis) Qualifiers: DVT location: lower extremity Affected thrombotic vein of extremity: u nspecified vein of extremity Chronicity: chronic Laterality: left Qualified Code(s): I82.502 - Chronic embolism and thrombosis of unspecified deep veins of left lower extremity
[2021-02-14 00:38] LABS: Basophils # (auto) 0.02 K/uL (0-0.2); Basophils % (auto) 0.2 %; Eosinophils # (auto) 0.04 K/uL (0-0.5); Eosinophils % (auto) 0.5 %; Hematocrit (blood only) 43.5 % (42-52); Hemoglobin 14.3 g/dL (14.0-18.0); Immature Granulocytes # (auto) 0.05 K/uL (0.00-0.02); Immature Granulocytes % (auto) 0.6 %; Lymphocytes # (auto) 0.87 K/uL (1.2-3.4); Lymphocytes % (auto) 9.8 %; Mean Corpuscular Hemoglobin 32.1 pg (25-34); Mean Corpuscular Hgb Conc 32.9 g/dL (32-36); Mean Corpuscular Volume 97.5 fL (80-100); Mean Platelet Volume 10.2 fL (7.4-10.4); Monocytes # (auto) 0.89 K/uL (0.11-0.59); Neutrophils % (auto) 78.9 %; Platelet Count 248 K/uL (130-400); RDW Coefficient of Variation 12.6 % (11.5-14.5); RDW Standard Deviation 44.8 fL (36.4-46.3); Red Blood Count 4.46 M/uL (4.7-6.1); White Blood Count 8.87 K/uL (4.8-10.8)
[2021-02-14 01:08] LABS: Albumin Globulin Ratio 0.9 (0.9-2); Albumin Level 3.2 gm/dl (3.4-5.0); BUN Creatinine Ratio 13.2 (10-20); Bilirubin,Total 0.6 mg/dl (0.2-1); Calcium 10.1 mg/dl (8.5-10.1); Creatinine Clr Calc Pharmacy 86.5 ml/min; Est GFR (African American) 93.2 ml/min; Est GFR (Non-African American) 80.4 ml/min; Globulin 3.5 gm/dl (2.5-4.0); Total Protein 6.7 gm/dl (6.4-8.2)
[2021-02-14] MEDS ORDERED: ACETAMINOPHEN 325 MG TAB PO STA (02:17)
--- NOTE | 2021-02-14 02:18 | History & Physical Report ---
Date of Service February 14, 2021 Assessment & Plan (1) Left leg swelling: Plan: History venous insufficiency on chronic diuretic Rx Chronic DVT on initial ultrasound read hx DVT on Eliquis multiple sclerosis, deficits at baseline as per patient mood disorder, at baseline off maintenance Rx, History of primary hyperparathyroidism, need to reconnect with ENT outpatient history seizures as per records Chronic pain as per records Possible functional disability OBS GMF Lasix IV 1 dose Continue home diuretic Rx PT OT eval Social service RE discharge planning, patient needs home nursing. DVT prophylaxis. Eliquis Full code Text document was generated using [employer] voice recognition software. It may contain grammatical or spelling errors. Kindly contact undersigned for clarification of any documentation item in question. History of Present Illness Chief Complaint: Left leg swelling, pain Primary Care Provider: Jabari Pemberton History obtained from patient and records. Medical history significant for multiple sclerosis, history DVT on Eliquis, chronic venous insufficiency on diuretic Rx, primary hyperparathyroidism, mood disorder, chronic pain, history seizures as per records. Last confinement August 2020 for weakness and diarrhea symptoms. Patient discharged home with home health nursing which lapsed after a few months as per patient. Yesterday, patient noted increase in usual left leg swelling with some pain. No fever, no chills, no recent trauma. Patient unable to move around at home the last few months due to lack of home nursing. Patient compliant with home medications. Patient denies chest pain, S OB, fluid retention. Medical History as above Surgical History : Cystoscopy Family History : Hypertension, stroke Personal/Social history : Non-smoker, no EtOH intake, disabled Allergies Allergy/AdvReac Type Severity Reaction Status Date / Time aspirin Allergy Severe airway Verified 11/02/20 01:10 edema; hives Home Medications Medication Instructions Recorded Confirmed Type apixaban 5 mg (74 tabs) tablets in 5 mg PO BID 09/11/20 02/14/21 History a dose pack (Eliquis) fluoxetine 10 mg capsule (Prozac) 10 mg PO QAM 09/11/20 02/14/21 History furosemide 20 mg tablet 20 mg PO DAILY 11/02/20 02/14/21 History Past Med/Surg History Medical History Chronic pain syndrome Hypercalcemia Multiple sclerosis Obstructive uropathy 2/2 renal stone, caused RUBI, pt admitted for this and hypercalcemia 05/2018 Primary hyperparathyroidism Seizure disorder Many years ago may have had single episode, pt was never treated for this, no reoccurrence. Surgical History History of cystoscopy WITH STENT PLACEMENT 06/14/18 [facility] Family History Father Stroke Thyroid disorder Other Hypertension Kidney stones Social History Smoking Status: Never smoker Tobacco Type: Smokeless Tobacco (Dip or Chew) Cigarettes Per Day: 0; Second Hand Exposure: Yes; Do You Dip or Chew Tobacco: Yes; Tobacco Cessation Education Requested by Patient: No Hx Alcohol Use: Yes Alcohol type: beer Hx Substance Use: No Preferred Language: Tajik Communication Ability: Effective Head Automatic Sawyer Required: No Beliefs That Will Affect Care: None marital status: Current Living Situation: Parent Current Living Situation Comment: brother and father at home current occupational status: disabled How many Children do You have: 2 Other Information That Helps Us Care for You: No Feels Safe at Home: Yes Safety Concerns: Feels Safe At This Time Assistive Devices: Wheelchair Assistive Devices Comment: leg brace Review of Systems Review of Systems: As per HPI, all 10 systems reviewed, all other ROS negative Physical Exam Physical Exam: GENERAL: Comfortable, no respiratory distress SKIN: Normal color, warm HEENT: pale palpebral conjunctivae, no ptosis, dry buccal mucosa NECK : Supple, no tenderness CHEST : CTA, no tenderness HEART : RRR, no obvious murmurs ABDOMEN: Some distention, no tenderness EXTREMITIES : Bilateral LE swelling left greater than the right, minimal LLE tenderness NEUROLOGIC : Coherent, no facial asymmetry; MMTS BUE 4/5 (LUE slightly weaker than RUE), RLE 4/5, LLE 2/5 (chronic) Results & Data Results & Data ([facility]) Vital Signs (Past 12 Hours) Vital Signs Temp Pulse Resp BP Pulse Ox 02/14/21 01:43 70 16 147/86 H 98 02/13/21 23:31 65 19 168/84 H 98 02/13/21 22:52 36.7 C 78 18 138/81 98 Laboratory Results Laboratory Results WBC 8.87 K/uL (4.8-10.8) 02/14/21 00:27 RBC 4.46 M/uL (4.7-6.1) L 02/14/21 00:27 Hgb 14.3 g/dL (14.0-18.0) 02/14/21 00:27 Hct 43.5 % (42-52) 02/14/21 00: MCV 97.5 fL (80-100) 02/14/21 00: MCH 32.1 pg (25-34) 02/14/21 00: MCHC 32.9 g/dL (32-36) 02/14/21 00: RDW Std Deviation 44.8 fL (36.4-46.3) 02/14/21 00: RDW Coeff of Bret 12.6 % (11.5-14.5) 02/14/21 00: Plt Count 248 K/uL (130-400) 02/14/21 00: MPV 10.2 fL (7.4-10.4) 02/14/21 00:27 Immature Gran % (Auto) 0.6 % 02/14/21 00:27 Neut % (Auto) 78.9 % 02/14/21 00:27 Lymph % (Auto) 9.8 % 02/14/21 00:27 [place] % (Auto) 10.0 % 02/14/21 00:27 Eos % (Auto) 0.5 % 02/14/21 00:27 Baso % (Auto) 0.2 % 02/14/21 00:27 Neut # (Auto) 7.00 K/uL (1.4-6.5) H 02/14/21 00:27 Lymph # (Auto) 0.87 K/uL (1.2-3.4) L 02/14/21 00:27 [place] # (Auto) 0.89 K/uL (0.11-0.59) H 02/14/21 00:27 Eos # (Auto) 0.04 K/uL (0-0.5) 02/14/21 00:27 Baso # (Auto) 0.02 K/uL (0-0.2) 02/14/21 00:27 Immature Gran # (Auto) 0.05 K/uL (0.00-0.02) H 02/14/21 00: Sodium 141 mmol/L (136-145) 02/14/21: Potassium mmol/L (3.5-5.1) 02/14/21: Chloride 109 mmol/L (98-107) H 02/14/21: Carbon Dioxide 27 mmol/L (21-32) 02/14/21: Anion Gap 4.0 (3-11) 02/14/21: BUN 14 mg/dl (7-18) 02/14/21: Creatinine 1.09 mg/dl (0.6-1.4) 02/14/21: Est Cr Clr Drug Dosing 86.5 ml/min 02/14/21: Est GFR ( Amer) 93.2 ml/min 02/14/21: Est GFR (Non-Af Amer) 80.4 ml/min 02/14/21: BUN/Creatinine Ratio 13.2 (10-20) 02/14/21: Glucose 99 mg/dl (70-99) 02/14/21: Calcium 10.1 mg/dl (8.5-10.1) 02/14/21: Total Bilirubin 0.6 mg/dl (0.2-1) 02/14/21: AST U/L (15-37) 02/14/21: ALT 37 (12-78) 02/14/21: Alkaline Phosphatase 86 U/L (45-117) 02/14/21: Total Protein 6.7 gm/dl (6.4-8.2) 02/14/21: Albumin 3.2 gm/dl (3.4-5.0) L 02/14/21: Globulin 3.5 gm/dl (2.5-4.0) 02/14/21: Albumin/Globulin Ratio 0.9 (0.9-2) 02/14/21: Medications Administered LLE venous Dopplers initial read: Nonspecific edema involving the left lower extremity. There is increased echogenicitywithin the lumen of bowel and the posterior tibial vein with absent compressibilitysuggestive of deep venous thrombosis at this level. Although images are not available, per history, these was reported on a previous examdated 09/26/2020. Impression: Deep venous thrombosis in one of the posterior tibial veins in a similar distribution reported on previous examdated 09/26/2020 per report Left ankle x-ray as per my interpretation swelling Chest x-ray as per my interpretation no congestion
[2021-02-14] MEDS ORDERED: FUROSEMIDE 40 MG/4 ML VIAL IV STA (02:37)
[2021-02-14 03:32] LABS: Appearance Urine Clear (Clear); Bacteria Urine Automated Negative (Negative); Bilirubin Urine Negative (Negative); Blood Urine 3+ (Negative); Color Urine Dark Yellow; Glucose Urine UA Negative (Negative); Ketones Urine 1+ (Negative); Leukocyte Esterase Urine Trace (Negative); Nitrite Urine Negative (Negative); Protein Urine 1+ (Negative); RBC Urine Automated >30 /hpf (0-4); Urobilinogen Urine Negative (Negative); pH Urine 6.5 (4.5-7.5)
[2021-02-14 04:52] LABS: Potassium 3.9 mmol/L (3.5-5.1)
[2021-02-14] MEDS ORDERED: ACETAMINOPHEN 325 MG TAB PO PRN (06:42)
--- NOTE | 2021-02-14 07:09 | Ultrasound Report ---
LEFT LOWER EXTREMITY VENOUS DOPPLER HISTORY: Left leg pain and swelling. History of posterior tibial vein DVT. eval for dvt COMPARISON STUDY: Bilateral lower extremity venous Doppler 09/26/2020.. FINDINGS: The left common femoral, superficial femoral, popliteal, anterior tibial, posterior tibial veins are patent. There is thrombus seen within one of 2 proximal posterior tibial veins. This remain s unchanged. IMPRESSION: No change in the chronic DVT within one of 2 proximal posterior tibial veins. No acute DVT identified . ACT 112: Negative or not required by law. Electronically signed by: Nigel Talbot M.D. 02/14/2021 7:08 AM
[2021-02-14] MEDS ORDERED: PROMETHAZINE HCL 12.5 MG in SODIUM CHLORIDE 0.9% 50 ML IV PRN (07:17)
--- NOTE | 2021-02-14 07:48 | XRay Report ---
XR ankle LT 2V CLINICAL HISTORY: Left ankle pain and swelling. COMPARISON STUDY: None. FINDINGS: Soft tissue swelling within the left ankle and foot. The bones are osteopenic. No acute fra cture or dislocation. No radiopaque foreign bodies. IMPRESSION: Left ankle soft tissue swelling. No fractures. ACT 112: Negative or not required by law. Electronically signed by: Nigel Talbot M.D. 02/14/2021 7:47 AM
--- NOTE | 2021-02-14 07:59 | XRay Report ---
XR chest 1V portable HISTORY: leg swelling COMPARISON: Chest 09/11/2020. FINDINGS: The lungs are clear. Cardiac silhouette is normal in size. No pleural effusions. No pneumot horax. IMPRESSION: No acute process. ACT 112: Negative or not required by law. Electronically signed by: Nigel Talbot M.D. 02/14/2021 7:58 AM
[2021-02-14] MEDS: FLUoxetine HCL 10 MG CAP PO SCH (09:16)
[2021-02-14] MEDS: APIXABAN 5 MG TABLET PO SCH ×2 (09:16→20:21)
[2021-02-14] MEDS: POTASSIUM CHLORIDE CRTAB 20 MEQ TABCR PO SCH ×2 (09:16→20:21)
[2021-02-14] MEDS ORDERED: oxyCODONE HCL IR 5 MG TAB (IMMEDIATE RELEASE) PO PRN (13:49)
[2021-02-14] MEDS ORDERED: oxyCODONE HCL IR 5 MG TAB (IMMEDIATE RELEASE) PO STA (13:49)
--- NOTE | 2021-02-14 13:55 | Hospitalist Progress Note ---
Date of Service February 14, 2021 Assessment & Plan (1) Left leg pain: (2) Left leg swelling: (3) Chronic deep vein thrombosis (DVT) of distal vein of left lower extremity: (4) Multiple sclerosis: Plan: This is a 45-year-old male who has history of longstanding MS and is wheelchair- bound with chronic left-sided weakness and pain, Chronic LLE DVT anticoagulated on Eliquis, primary hyperparathyroidism, depression who presents to ED secondary to increasing left leg pain, weakness and bowel incontinence x1 day. L Leg Pain LLE Swelling Chronic LLE DVT admit to med/surg VDS: No change in the chronic DVT within one of 2 proximal posterior tibial veins Received IV lasix in ED which improved swelling obtain Arterial Doppler of LLE due to decreased peripheral pulse on exam add oxy IR for pain as pt not controlled with APAP PT/OT ordered - pt will need 24hr caregivers and HH, OT recommends acute rehab but pt declining at this time CM assisting with HH continue eliquis for chronic LLE DVT MS with chronic L hemiparesis wheel chair bound follows [facility] neuro currently no active tx DVT ppx: eliquis Dispo: med/surg, discharge home with HH when able, pt declining acute rehab, per PT feel pt back to baseline, OT recommending acute rehab FULL CODE PCP: Dr. Pemberton Pt was seen and examined in collaboration with Dr. Scott, please see addendum The chart was completed utilizing [employer] Speech voice recognition software. Grammatical errors, random word insertions, pronoun errors, and incomplete sentences are an occasional consequence of this system due to software limitations, ambient noise, and hardware issues. Any formal questions or concerns about the content, text, or information contained within the body of this dictation should be directly addressed to the provider for clarification. Admission and Anticipated Discharge Date Admission Date: February 14, 2021 Supervising Physician Co-Signing Physician Notes Attending addendum: The patient was seen and examined in medical floor He has been feeling a lot better with his left lower extremity Swelling has decreased and there is no pain Denies any shortness of breath, palpitation or chest pain On examination Remains stable in bed without any symptoms Hemodynamically stable Chest-clear to auscultate bilaterally Heart-S1, S2. No murmur Abdomen-benign Extremities-trace edema on the left side [employer] WRITER-alert, 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 Chronic left lower extremity weakness secondary to multiple sclerosis His admission labs, imaging studies reviewed Has chronic DVT involving left leg with recent swelling of the left leg Ultrasound did not show any new DVTs Condition has been improving-we will get PT and OT evaluation and possible discharge tomorrow Agree with assessment and plan as outlined above by Carlita Scott Subjective Patient was seen and examined in room 378-1. Follow-up of lower extremity pain and chronic left lower extremity DVT. He continues to complain of left lower extremity pain, feels her swelling is improved. He feels his left lower extremity pain is at baseline. He states yesterday his left leg swelled up so much he was unable to walk. Due to patient's MS he is mostly wheelchair-bound at baseline. He currently denies any fever, chills, sweats, lightheadedness, dizziness, chest pain, shortness of breath, nausea, vomiting, abdominal pain. Review of Systems Review of Systems: All systems reviewed & are unremarkable except as noted in HPI & below Physical Exam Physical Exam: Gen: WD/WN, NAD, A&O x3 HEENT: Normocephalic, atraumatic, conjunctivae moist, sclerae anicteric, mucous membranes moist. Lung: Clear to Auscultation bilaterally, no wheezes/rales/rhonchi Heart: Regular rate, regular rhythm, no murmurs, rubs, or gallops, decreased pedal pulse L > R Abdomen: Soft, NT, ND +BS x 4 Extremities: Trace left lower extremity edema, strength 2-5 left lower extremity which is chronic, 4-5 left upper extremity, 5 out of 5 on right upper and lower extremity Skin: Warm, no rash, negative turgor. Results & Data Results & Data ([facility]) Vital Signs (Past 12 Hours) Vital Signs Temp Pulse Pulse Resp BP BP Pulse Ox 02/14/21 07:37 36.7 C 71 16 118/68 98 02/14/21 05:46 36.6 C 16 119/76 92 02/14/21 01:43 70 16 147/86 H 98 Laboratory Results Short CBC 02/14/21 Range/Units 00:27 WBC 8.87 (4.8-10.8) K/uL Hgb 14.3 (14.0-18.0) g/dL Hct 43.5 (42-52) % Plt Count 248 (130-400) K/uL BMP 02/14/21 02/14/21 02/14/21 00:27 03:03 04:27 Sodium 141 Potassium Cancelled 3.9 Chloride 109 H Carbon Dioxide 27 BUN 14 Creatinine 1.09 Glucose 99 Calcium 10.1 Cardiac Enzymes 02/14/21 02/14/21 Range/Units 00:27 04:27 Total Creatine Kinase 36 L (39-308) U/L Liver Function 02/14/21 Range/Units 00:27 Total Bilirubin 0.6 (0.2-1) mg/dl AST (15-37) U/L ALT 37 (12-78) Alkaline Phosphatase 86 (45-117) U/L Albumin 3.2 L (3.4-5.0) gm/dl Urine 02/14/21 Range/Units Unknown Urine Color Dark Yellow Urine Appearance Clear (Clear) Urine pH 6.5 (4.5-7.5) Ur Specific [place] 1.020 (1.000-1.030) Urine Protein 1+ H (Negative) Urine Glucose (UA) Negative (Negative) Diagnostic Findings Venous Doppler Study 02/13/21 22:52 LEFT LOWER EXTREMITY VENOUS DOPPLER HISTORY: Left leg pain and swelling. History of posterior tibial vein DVT. eval for dvt COMPARISON STUDY: Bilateral lower extremity venous Doppler 09/26/2020.. FINDINGS: The left common femoral, superficial femoral, popliteal, anterior tibial, posterior tibial veins are patent. There is thrombus seen within one of 2 proximal posterior tibial veins. This remains unchanged. IMPRESSION: No change in the chronic DVT within one of 2 proximal posterior tibial veins. No acute DVT identified. ACT 112: Negative or not required by law. Electronically signed by: Nigel Talbot M.D. 02/14/2021 7:08 AM Ankle X-Ray 02/13/21 23:23 XR ankle LT 2V CLINICAL HISTORY: Left ankle pain and swelling. COMPARISON STUDY: None. FINDINGS: Soft tissue swelling within the left ankle and foot. The bones are osteopenic. No acute fracture or dislocation. No radiopaque foreign bodies. IMPRESSION: Left ankle soft tissue swelling. No fractures. ACT 112: Negative or not required by law. Electronically signed by: Nigel Talbot M.D. 02/14/2021 7:47 AM Chest X-Ray 02/14/21 02:17 XR chest 1V portable HISTORY: leg swelling COMPARISON: Chest 09/11/2020. FINDINGS: The lungs are clear. Cardiac silhouette is normal in size. No pleural effusions. No pneumothorax. IMPRESSION: No acute process. ACT 112: Negative or not required by law. Electronically signed by: Nigel Talbot M.D. 02/14/2021 7:58 AM Medications Administered Current Inpatient Medications Acetaminophen (Acetaminophen 325 Mg Tab) 650 mg PO Q6H PRN PRN Reason: Fever/pain Stop: 03/16/21 06:41 Last Admin: 02/14/21 12:32 Dose: 650 mg Documented by: Apixaban (Apixaban 5 Mg Tablet) 5 mg PO BID [facility] Stop: 03/16/21 08:59 Last Admin: 02/14/21 09:16 Dose: 5 mg Documented by: Fluoxetine HCl (Fluoxetine Hcl 10 Mg Cap) 10 mg PO QAM [facility] Stop: 03/16/21 08:59 Last Admin: 02/14/21 09:16 Dose: 10 mg Documented by: Furosemide (Furosemide 20 Mg Tab) 20 mg PO DAILY [facility] Stop: 03/17/21 08:59 Promethazine HCl 12.5 mg/ (Sodium Chloride) 50.5 mls @ 202 mls/hr IV Q6H PRN PRN Reason: Nausea And Vomiting Stop: 03/16/21 07:16 Potassium Chloride (Potassium Chloride Crtab 20 Meq Tabcr) 20 meq PO BID [facility] Stop: 03/16/21 08:59 Last Admin: 02/14/21 09:16 Dose: 20 meq Documented by:
[2021-02-14] MEDS ORDERED: IBUPROFEN 200 MG TAB PO STA (14:12)
--- NOTE | 2021-02-14 17:36 | Ultrasound Report ---
US arterial duplex LE LT HISTORY: 45 years-old Male decreased pedal pulse decreased pulses of the left lower leg COMPARISON: None TECHNIQUE: Multiple real-time sonographic images of the left lower extremity arterial structures were obtained assessing grayscale appearance, color and spectral flow FINDINGS: Minimal atherosclerotic plaque. Predominantly biphasic waveforms noted within the arterial structures of the thigh with monophasic and biphasic waveforms within the calf. No arterial occlusion or signif icantly elevated peak systolic velocities to suggest high-grade stenosis. Subcutaneous edema. IMPRESSION: 1. No arterial occlusion or elevated peak systolic velocities to suggest high-grade stenosis. 2. Monophasic and biphasic waveforms of the left lower extremity. ACT 112: Negative or not required by law. The above report was generated using voice recognition software. It may contain grammatical, syntax o r spelling errors. Electronically signed by: Dc Costello M.D. 02/14/2021 5:34 PM
[2021-02-14] MEDS: oxyCODONE HCL IR 5 MG TAB (IMMEDIATE RELEASE) PO PRN (23:04)
[2021-02-15] MEDS: oxyCODONE HCL IR 5 MG TAB (IMMEDIATE RELEASE) PO PRN ×3 (03:10→12:05)
[2021-02-15 07:44] LABS: Basophils # (auto) 0.02 K/uL (0-0.2); Basophils % (auto) 0.3 %; Eosinophils # (auto) 0.07 K/uL (0-0.5); Hematocrit (blood only) 42.8 % (42-52); Immature Granulocytes # (auto) 0.03 K/uL (0.00-0.02); Immature Granulocytes % (auto) 0.4 %; Lymphocytes # (auto) 1.37 K/uL (1.2-3.4); Lymphocytes % (auto) 19.9 %; Mean Corpuscular Hemoglobin 31.5 pg (25-34); Mean Corpuscular Hgb Conc 32.7 g/dL (32-36); Mean Corpuscular Volume 96.2 fL (80-100); Monocytes # (auto) 0.83 K/uL (0.11-0.59); Monocytes % (auto) 12.1 %; Neutrophils # (auto) 4.55 K/uL (1.4-6.5); Neutrophils % (auto) 66.3 %; Platelet Count 240 K/uL (130-400); RDW Coefficient of Variation 12.5 % (11.5-14.5); RDW Standard Deviation 43.8 fL (36.4-46.3); Red Blood Count 4.45 M/uL (4.7-6.1); White Blood Count 6.87 K/uL (4.8-10.8)
[2021-02-15 08:02] LABS: BUN Creatinine Ratio 12.3 (10-20); Calcium 10.3 mg/dl (8.5-10.1); Creatinine Clr Calc Pharmacy 86.5 ml/min; Est GFR (African American) 93.2 ml/min; Est GFR (Non-African American) 80.4 ml/min; Potassium 4.3 mmol/L (3.5-5.1)
[2021-02-15] MEDS: APIXABAN 5 MG TABLET PO SCH (08:12)
[2021-02-15] MEDS: POTASSIUM CHLORIDE CRTAB 20 MEQ TABCR PO SCH (08:12)
[2021-02-15] MEDS: FLUoxetine HCL 10 MG CAP PO SCH (08:12)
[2021-02-15] MEDS ORDERED: FUROSEMIDE 20 MG TAB PO SCH (09:00)
--- NOTE | 2021-02-15 10:48 | Discharge Summary ---
Date of Service February 15, 2021 Admission HPI Per Admitting Provider History obtained from patient and records. Medical history significant for multiple sclerosis, history DVT on Eliquis, chronic venous insufficiency on diuretic Rx, primary hyperparathyroidism, mood disorder, chronic pain, history seizures as per records. Last confinement August 2020 for weakness and diarrhea symptoms. Patient discharged home with home health nursing which lapsed after a few months as per patient. Yesterday, patient noted increase in usual left leg swelling with some pain. No fever, no chills, no recent trauma. Patient unable to move around at home the last few months due to lack of home nursing. Patient compliant with home medications. Patient denies chest pain, S OB, fluid retention. Medical History as above Surgical History : Cystoscopy Family History : Hypertension, stroke Personal/Social history : Non-smoker, no EtOH intake, disabled Admission Exam Per Admitting Provider GENERAL: Comfortable, no respiratory distress SKIN: Normal color, warm HEENT: pale palpebral conjunctivae, no ptosis, dry buccal mucosa NECK : Supple, no tenderness CHEST : CTA, no tenderness HEART : RRR, no obvious murmurs ABDOMEN: Some distention, no tenderness EXTREMITIES : Bilateral LE swelling left greater than the right, minimal LLE tenderness NEUROLOGIC : Coherent, no facial asymmetry; MMTS BUE 4/5 (LUE slightly weaker than RUE), RLE 4/5, LLE 2/5 (chronic) Principal Diagnosis Left Leg Pain - improved Chronic Left lower extremity DVT Multiple Sclerosis Discharge Exam Gen: WD/WN, NAD, A&O x3 HEENT: Normocephalic, atraumatic, conjunctivae moist, sclerae anicteric, mucous membranes moist. Lung: Clear to Auscultation bilaterally, no wheezes/rales/rhonchi Heart: Regular rate, regular rhythm, no murmurs, rubs, or gallops, Abdomen: Soft, NT, ND +BS x 4 Extremities: no edema, strength 2-5 left lower extremity which is chronic, 4-5 left upper extremity, 5 out of 5 on right upper and lower extremity Skin: Warm, no rash, negative turgor. Discharge Data Allergies Allergy/AdvReac Type Severity Reaction Status Date / Time aspirin Allergy Severe airway Verified 11/02/20 01:10 edema; hives Consultations 02/14/21 01:53 ED Decision to Admit Stat Ordered Studies Venous Doppler Study 02/13/21 22:52 LEFT LOWER EXTREMITY VENOUS DOPPLER HISTORY: Left leg pain and swelling. History of posterior tibial vein DVT. eval for dvt COMPARISON STUDY: Bilateral lower extremity venous Doppler 09/26/2020.. FINDINGS: The left common femoral, superficial femoral, popliteal, anterior tibial, posterior tibial veins are patent. There is thrombus seen within one of 2 proximal posterior tibial veins. This remains unchanged. IMPRESSION: No change in the chronic DVT within one of 2 proximal posterior tibial veins. No acute DVT identified. ACT 112: Negative or not required by law. Electronically signed by: Nigel Talbot M.D. 02/14/2021 7:08 AM Ankle X-Ray 02/13/21 23:23 XR ankle LT 2V CLINICAL HISTORY: Left ankle pain and swelling. COMPARISON STUDY: None. FINDINGS: Soft tissue swelling within the left ankle and foot. The bones are o steopenic. No acute fracture or dislocation. No radiopaque foreign bodies. IMPRESSION: Left ankle soft tissue swelling. No fractures. ACT 112: Negative or not required by law. Electronically signed by: Nigel Talbot M.D. 02/14/2021 7:47 AM Chest X-Ray 02/14/21 02:17 XR chest 1V portable HISTORY: leg swelling COMPARISON: Chest 09/11/2020. FINDINGS: The lungs are clear. Cardiac silhouette is normal in size. No pleural effusions. No pneumothorax. IMPRESSION: No acute process. ACT 112: Negative or not required by law. Electronically signed by: Nigel Talbot M.D. 02/14/2021 7:58 AM Duplex Scan Lower Extremity Artery 02/14/21 13:02 US arterial duplex LE LT HISTORY: 45 years-old Male decreased pedal pulse decreased pulses of the left lower leg COMPARISON: None TECHNIQUE: Multiple real-time sonographic images of the left lower extremity arterial structures were obtained assessing grayscale appearance, color and spectral flow FINDINGS: Minimal atherosclerotic plaque. Predominantly biphasic waveforms noted within the arterial structures of the thigh with monophasic and biphasic waveforms within the calf. No arterial occlusion or significantly elevated peak systolic velocities to suggest high-grade stenosis. Subcutaneous edema. IMPRESSION: 1. No arterial occlusion or elevated peak systolic velocities to suggest high- grade stenosis. 2. Monophasic and biphasic waveforms of the left lower extremity. ACT 112: Negative or not required by law. The above report was generated using voice recognition software. It may contain grammatical, syntax or spelling errors. Electronically signed by: Dc Costello M.D. 02/14/2021 5:34 PM Hospital Course (1) Left leg pain: (2) Left leg swelling: (3) Chronic deep vein thrombosis (DVT) of distal vein of left lower extremity: (4) Multiple sclerosis: This is a 45-year-old male who has history of longstanding MS and is wheelchair- bound with chronic left-sided weakness and pain, Chronic LLE DVT anticoagulated on Eliquis, primary hyperparathyroidism, depression who presents to ED secondary to increasing left leg pain, weakness and bowel incontinence x1 day. He underwent left lower extremity venous Doppler which revealed no change in chronic DVT within 1 of 2 proximal posterior tibial veins. He did have increased swelling from baseline so was given one-time dose of IV Lasix and resumed on his home dose of 20 mg daily. His swelling improved significantly and was back to baseline. He also underwent arterial Doppler due to increase in leg pain to rule out ischemia and this was negative for occlusive disease. His pain was controlled with supportive measures including leg elevation, ice and Tylenol. 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 He underwent PT OT evaluation. Physical therapy eval patient okay to return home and Occupational Therapy recommended discharging to rehab. Patient declined to discharge to rehab and home health was arranged. He lives at home with his father. On day of discharge patient was back to his baseline. He was free of pain to left lower extremity and without swelling. He was alert and oriented x3, tolerating regular diet and his mobility was at baseline. He is wheelchair dependent but is able to transfer. He does have chronic hemiparesis of left side secondary to multiple sclerosis. He'll follow up with PCP at discharge. He was found to have elevated calcium during hospital stay. This is a known concern with patient. He was dx with primary hyperparathyroidism 2/2 to 12mm parathyroid adenoma in left parathracheal region inferior to the lower pole of L thyroid lobe back in 2019. Recommendation is for surgical removal and pt should follow up with ENT Dr. Tracey and endocrinology. Total Time Total Time Spent Total Time Spent (In Minutes): 35 minutes Total Time Includes: Examination of the Patient, Discharge Planning, Medication Reconciliation, Communication With Other Providers and Other Discharge Plan Discharge Items Patient Disposition: Home - Home Health Services Reason For Visit: LLE SWELLING Discharge Diagnosis: Left Leg Pain - improved Chronic Left lower extremity DVT Multiple Sclerosis Condition on Discharge: Good Activity: Resume your previous activity Non-emergency contact: Primary Care Provider and Neurologist Call non-emergency contact if: you have any medication questions, your symptoms worsen, your pain is not controlled and your temperature is above 101 Follow-up/Referrals: Jabari Pemberton [Primary Care Provider] - 02/18/21 10:30 am Diet: Regular Addtl Attending Provider Instructions: RECOMMENDATIONS FOR FOLLOW-UP: Please follow up with Primary care Provider as scheduled. Please follow up with trae ENT Dr. Tracey and Endocrinology Dr. Chavez regarding hyperparathyroidism and elevated calcium levels. You need surgical evaluation to have parathyroid removed. Continue all home medications. Recommend compression stockings during the day when in wheel chair to help assist with chronic swelling. Recommend over the counter tylenol 500mg every 6 hours as needed for left leg pain. Keep left leg elevated when able. You may also use Ice to left leg when in pain. Avoid narcotic medications given prior history of addiction. Recommend avoiding anti inflammatory medications while taking blood thinners, including motrin, advil, ibuprofen, aleve, naproxen, naprosyn. OTHER INSTRUCTIONS: Seek medical attention if you have: * temperature above 101 * chest pain or trouble breathing * abdominal pain, nausea, vomiting * diarrhea, dark stools or bloody stools * any unanswered questions or concerns Call 911 if symptoms are severe. Please take good care of yourself. It has been a pleasure taking care of you. Please take care of yourself. If you have any questions regarding your recent hospitalization please contact [facility] and request [facility] @ [phone]. Carlita Ferreira PA-C Pending Studies at Discharge: No Stand-Alone Forms: My [facility], Smoking Cessation Medications and DC Order Prescriptions: Continued furosemide 20 mg tablet 20 mg PO DAILY RF: 0 fluoxetine [Prozac] 10 mg capsule 10 mg PO QAM RF: 0 Eliquis 5 mg (74 tabs) tablets,dose pack 5 mg PO BID RF: 0 Discharge Orders: Discharge Order (Routine); Ordered 02/15/21 Ordered By: Carlita Peacock/Other Patient Handouts: DVT Complications Admission Data Admit Date/Time: 02/14/21 03:07 Attending Provider: Haylee Lucio Admit Provider: Sonny Magallon Primary Care Provider: Jabari Pemberton Other Providers: Sonny Magallon ; Carlita Ferreira ; [facility],Home Healthcare Other Interventions: Discharge Summary Assessment (RN) Last Done: 02/15/21 12:36 Supervising Physician Co-Signing Physician Notes I have seen and examined the patient and have discussed the case with the provider above. I agree with the assessment and plan as stated. 45 yo M with MS who independently transfers presented with leg swelling which has resolved. Chronic DVT present and he is stable on anticoagulation. The patient reports no issues on day of discharge and is eager to return home. NAD on physical exam with stable vitals. Mentating clearly. Lungs clear to auscultation throughout, Cardiac auscultation reveals S1/2 heard without m/g/r, no peripheral edema. Lives with his father. Followup with ENT recommended, he verbalized understanding with intent to comply. Close primary care followup recommended. DO [facility] Attestation I certify that this patient is under my care and that I, or a physicians casino assistant manager working with me, had a face to-face encounter that meets the home health [id number] encounter requirements with this patient. The encounter with the patient was in whole, or in part, for the following medical condition, which is the primary reason for home health care (list medical condition): RN, PT, OT; MS exacerbation I certify that, based on my findings, the following services are medically necessary home health services: My clinical findings support the need for the above services because: OT Assess ADL Status and Restore Function w ADLs PT Assessment for Endurance / Balance / Strength PT Eval for Safety and Mobility PT Eval for Safety, Gait Training, Assistive Devices PT Gait and Balance Training, Strengthening and Safety Skilled Nsg Assessment Further, I certify that my clinical findings support that this patient is homebound (i.e. absences from home require considerable and taxing effort and a re for medical reasons or oriental orthodox services or infrequently or of short duration when for other reasons) because: Chair Bound; Requires Transfer Assist Supportive Aid - Wheelchair Certification for Home Health Services: Based on the above findings, I certify that this patient is confined to the home and needs intermittent correction care, physical therapy and/or speech therapy or continues to need occupational therapy. The patient is under my care, and I have initiated the establishment of the plan of care. This patient will be followed by a physician who will periodically review the plan of care.
== END 2021-02-15 13:17 | disposition home health service (06) ==
LOC: 3N 22:30 → ED 22:30 → SUATTDRO 02-14 03:07 → 3N 02-14 05:25
DX: G81.92 Hemiplegia, unspecified affecting left dominant side; E21.0 Primary hyperparathyroidism; Z99.3 Dependence on wheelchair; N13.9 Obstructive and reflux uropathy, unspecified; G89.4 Chronic pain syndrome; Z79.01 Long term (current) use of anticoagulants; G35 Multiple sclerosis; Z88.6 Allergy status to analgesic agent; I82.542 Chronic embolism and thrombosis of left tibial vein; Z79.899 Other long term (current) drug therapy; Z86.718 Personal history of other venous thrombosis and embolism

== ENCOUNTER 2021-02-21 09:01 | Inpatient (IN) ==
[2021-02-21] MEDS ORDERED: SODIUM CHLORIDE 0.9% 1000ML 1,000 ML IV ONE (09:28)
[2021-02-21] MEDS ORDERED: ACETAMINOPHEN 1,000 MG/100 ML VIAL IV STA (09:37)
--- NOTE | 2021-02-21 09:43 | Emergency Department Note ---
Impression & Plan Muscle spasm of left lower extremity, Multiple sclerosis, Stool incontinence, Hypophosphatemia, Serum calcium elevated ED Provider Note NAME: JAD DICKINSON AGE: 45 SEX: M ARRIVES VIA: Ambulance INFORMANT: Patient ED PROVIDER(S): Miguel Watson MD CHIEF COMPLAINT: Weakness, leg pain PLAN: Disposition: Admit MEDICAL DECISION MAKING: The patient is a pleasant 45-year-old gentleman with a past medical history of multiple sclerosis who presents to the emergency department from home after EMS was called due to the patient awaking to having stooled himself overnight and was unable to get up due to weakness/spasm in his left leg. He feels he may be having a flare of his MS. He reports he does not usually have incontinence of stool and so is unsure why this occurred. He was recently admitted to an [facility] on [place]/16-02/17 for left leg pain and had unremarkable work-up including stable venous Doppler of the left lower extremity showing chronic below the knee DVT but patient is on Eliquis as well as unremarkable arterial studies. The patient denies any falls. Denies any fevers, chills, cough, congestion, urinary symptoms. Per EMS they did find a home to have numerous cans of beer lying around and evidence of out heavy alcohol consumption. The patient reports that that is his father's and he does not drink alcohol heavily. When he was discharged from the hospital home services were arranged and he has PT/OT that come twice a week but he has yet to have a home fire alarm installer to help with ADLs as he feels he needs this. He would be open to going to a rehab facility but understands there are no openings at this time. On arrival patient is chronically ill-appearing but no acute distress, afebrile stable vital signs. He appears clinically dry. He has paresis of the left lower extremity with a degree of spasticity with 2+ reflexes. He has clonus of bilateral lower extremities in the setting of his MS. WBC, H/H and platelets within normal limits. Chemistry without metabolic acidosis. Phosphorus 1.6 with repletion initiated. Calcium is 10.3 in the setting of the patient's clinical dry appearance. Electrolytes otherwise withou t significant abnormality. LFTs are unremarkable. COVID-19, RNA, NAAT test was negative. Upon reevaluation the patient continued to have pain, spasm and weakness of his left lower extremity and so was determined that admission would be required given he does not have 24-hour care at home. Case was discussed with Raul Perry with Dr. Anitra vasquez who will evaluate the patient for admission. Triage Nursing notes reviewed and agree them. Prior medical records reviewed Vital Signs: reviewed and remarkable for no significant abnormalities Differential diagnosis: Infection, dehydration, metabolic abnormality, hypo/hyperglycemia, electrolyte disturbance, anemia, hypoxia, cardiac sources, intracerebral event, toxicologic, neurologic, as well as other pathologies. ER treatment provided: See below. Diagnostics interpreted by me: Cardiac Monitoring: An order for continuous cardiac monitoring was placed and demonstrated NSR, 74 bpm, no ectopy. Laboratory studies: See below Imaging studies: See below Consultation(s): Case was discussed with Raul Perry with Dr. Anitra vasquez who will evaluate the patient for admission. HPI: The patient is a pleasant 45-year-old gentleman with a past medical history of multiple sclerosis who presents to the emergency department from home after EMS was called due to the patient awaking to having stooled himself overnight a nd was unable to get up due to weakness/spasm in his left leg. He feels he may be having a flare of his MS. He reports he does not usually have incontinence of stool and so is unsure why this occurred. He was recently admitted to an [facility] on 02/16-02/17 for left leg pain and had unremarkable work-up including stable venous Doppler of the left lower extremity showing chronic below the knee DVT but patient is on Eliquis as well as unremarkable arterial studies. The patient denies any falls. Denies any fevers, chills, cough, congestion, urinary symptoms. Per EMS they did find a home to have numerous cans of beer lying around and evidence of out heavy alcohol consumption. The patient reports that that is his father's and he does not drink alcohol heavily. When he was discharged from the hospital home services were arranged and he has PT/OT that come twice a week but he has yet to have a home fire alarm installer to help with ADLs as he feels he needs this. He would be open to going to a rehab facility but understands there are no openings at this time. ROS: See above HPI for pertinent positives & negatives. A total of 10 systems reviewed and were otherwise negative. PAST MEDICAL HISTORY:See Below PAST SURGICAL HISTORY:See Below FAMILY HISTORY:See Below SOCIAL HISTORY:See Below HOME MEDICATIONS:See Below ALLERGIES:See Below VITALS:See Below PHYSICAL EXAMINATION: GENERAL: Awake, alert, unkempt, chronically ill-appearing, in no distress HENT: Normocephalic, atraumatic. Oropharynx with dry mucous membranes and otherwise unremarkable. EYES: Normal conjunctiva. Sclera non-icteric. NECK: Supple. No nuchal rigidity. FROM. No JVD. RESPIRATORY: Clear to auscultation. CARDIAC: Regular rate, normal rhythm. Extremities warm and well perfused. Pulses equal. ABDOMEN: Soft, non-distended. No tenderness to palpation. No rebound or guarding. No masses. RECTAL: Deferred. MUSCULOSKELETAL: Chest examination reveals no tenderness. The back is symmetrical on inspection without obvious abnormality. There is no CVA tenderness to palpation. No joint edema. LOWER EXTREMITIES: Calves are equal size bilaterally. No edema. No discoloration. Mild tenderness behind the left calf which is chronic. NEURO: Normal sensorium. No sensory or motor deficits noted. Paresis of the left lower extremity with a degree of spasticity with 2+ reflexes. He has clonus of bilateral lower extremities in the setting of his MS. SKIN: No rash or jaundice noted. Miguel Watson MD Past Med/Surg History Medical History Chronic pain syndrome Hypercalcemia Multiple sclerosis Obstructive uropathy 2/2 renal stone, caused RUBI, pt admitted for this and hypercalcemia 05/2018 Primary hyperparathyroidism Seizure disorder Many years ago may have had single episode, pt was never treated for this, no reoccurrence. Surgical History History of cystoscopy WITH STENT PLACEMENT 06/14/18 [facility] Family History Father Stroke Thyroid disorder Other Hypertension Kidney stones Social History Smoking Status: Never smoker Tobacco Type: Smokeless Tobacco (Dip or Chew) Cigarettes Per Day: 0; Second Hand Exposure: Yes; Do You Dip or Chew Tobacco: Yes; Tobacco Cessation Education Requested by Patient: No Hx Alcohol Use: Yes Alcohol type: beer Hx Substance Use: No Preferred Language: Hong Konger Communication Ability: Effective Player Services Representative Required: No Beliefs That Will Affect Care: None marital status: Current Living Situation: Parent Current Living Situation Comment: brother and father at home current occupational status: disabled How many Children do You have: 2 Feels Safe at Home: Yes Safety Concerns: Feels Safe At This Time Assistive Devices: Wheelchair Assistive Devices Comment: Leg brace Allergies Allergies Allergy/AdvReac Type Severity Reaction Status Date / Time aspirin Allergy Severe airway Verified 02/21/21 12:21 edema; hives Home Meds Home Medications Medication Instructions Recorded Confirmed apixaban 5 mg (74 tabs) tablets in 5 mg PO BID 09/11/20 02/21/21 a dose pack (Eliquis) fluoxetine 10 mg capsule (Prozac) 10 mg PO QAM 09/11/20 02/21/21 furosemide 20 mg tablet 20 mg PO DAILY 11/02/20 02/21/21 Results & Data (ED) Vital Signs Vital Signs - 24 hr 02/21/21 09:05 02/21/21 09:45 02/21/21 11:03 Pulse Rate 83 Pulse Rate [Right Finger] 84 80 Respiratory Rate 18 16 Respiratory Effort / Characteristics Non-Labored Spontaneous Respiratory Depth Normal Blood Pressure 145/88 H Blood Pressure [Right Arm] 145/88 H 134/68 Blood Pressure Mean 107 Blood Pressure Mean [Right Arm] 107 90 Blood Pressure Position Lying Pulse Oximetry 97 99 99 Oxygen Delivery Method Room Air Room Air Room Air Sepsis Recent Fever Within 48 Hours No Sepsis New/Unexplained Change in Mental Status No Sepsis Action Taken by Nursing No Action Required 02/21/21 12:26 Pulse Rate Pulse Rate [Right Finger] 82 Respiratory Rate 20 Respiratory Effort / Characteristics Non-Labored Respiratory Depth Normal Blood Pressure Blood Pressure [Right Arm] 134/80 Blood Pressure Mean Blood Pressure Mean [Right Arm] 98 Blood Pressure Position Pulse Oximetry 97 Oxygen Delivery Method Room Air Sepsis Recent Fever Within 48 Hours Sepsis New/Unexplained Change in Mental Status Sepsis Action Taken by Nursing Laboratory Data Attestation: I reviewed the patient's lab results. Result diagrams: 02/21/21 09:37 02/21/21 09:37 Lab Results 02/21/21 02/21/21 02/21/21 Range/Units 09:37 09:37 09:51 WBC 10.10 (4.8-10.8) K/uL RBC 4.83 (4.7-6.1) M/uL Hgb 15.4 (14.0-18.0) g/dL Hct 46.1 (42-52) % MCV 95.4 (80-100) fL MCH 31.9 (25-34) pg MCHC 33.4 (32-36) g/dL RDW Std Deviation 43.3 (36.4-46.3) fL RDW Coeff of Bret 12.4 (11.5-14.5) % Plt Count 266 (130-400) K/uL MPV 10.1 (7.4-10.4) fL Immature Gran % (Auto) 0.6 % Neut % (Auto) 76.7 % Lymph % (Auto) 10.1 % [place] % (Auto) 12.1 % Eos % (Auto) 0.2 % Baso % (Auto) 0.3 % Neut # (Auto) 7.75 H (1.4-6.5) K/uL Lymph # (Auto) 1.02 L (1.2-3.4) K/uL [place] # (Auto) 1.22 H (0.11-0.59) K/uL Eos # (Auto) 0.02 (0-0.5) K/uL Baso # (Auto) 0.03 (0-0.2) K/uL Immature Gran # (Auto) 0.06 H (0.00-0.02) K/uL Sodium 138 (136-145) mmol/L Potassium 3.9 (3.5-5.1) mmol/L Chloride 110 H (98-107) mmol/L Carbon Dioxide 24 (21-32) mmol/L Anion Gap 4.0 (3-11) BUN 11 (7-18) mg/dl Creatinine 1.09 (0.6-1.4) mg/dl Est Cr Clr Drug Dosing 97.4 ml/min Est GFR ( Amer) 93.2 ml/min Est GFR (Non-Af Amer) 80.4 ml/min BUN/Creatinine Ratio 9.7 L (10-20) Glucose 109 H (70-99) mg/dl Calcium 10.3 H (8.5-10.1) mg/dl Phosphorus 1.6 L (2.5-4.9) mg/dl Magnesium 2.6 H (1.8-2.4) mg/dl Total Bilirubin 0.4 (0.2-1) mg/dl AST 11 L (15-37) U/L ALT 32 (12-78) Alkaline Phosphatase 89 (45-117) U/L Total Protein 7.1 (6.4-8.2) gm/dl Albumin 3.5 (3.4-5.0) gm/dl Globulin 3.6 (2.5-4.0) gm/dl Albumin/Globulin Ratio 1.0 (0.9-2) SARS-CoV-2, RNA, NAAT NEGATIVE (NEGATIVE) Administered Medications Acetaminophen (Acetaminophen 325 Mg Tab) 650 mg PO Q4H PRN PRN Reason: pain/fever Stop: 03/23/21 16:40 Last Admin: 02/21/21 21:19 Dose: 650 mg Documented by: [id number] Apixaban (Apixaban 5 Mg Tablet) 5 mg PO BID [facility] Stop: 03/23/21 20:59 Last Admin: 02/21/21 21:20 Dose: 5 mg Documented by: [id number] Potassium Phosphate (Pot Phosphate Monobasic W/ Sod Tab) 2 tab PO QID MANJINDER Stop: 03/23/21 20:59 Last Admin: 02/21/21 21:21 Dose: 2 tab Documented by: [id number] Discontinued Medications Sodium Chloride (Nss 1000ml) 1,000 mls @ 999 mls/hr IV .Q1H1M ONE Stop: 02/21/21 10:28 Last Infusion: 02/21/21 12:27 Dose: 0 mls/hr Documented by: [id number] Admin: 02/21/21 09:52 Dose: 999 mls/hr Documented by: [id number] Acetaminophen (Ofirmev) 1,000 mg in 100 mls @ 400 mls/hr IV NOW STA Stop: 02/21/21 09:51 Last Infusion: 02/21/21 10:28 Dose: 0 mls/hr Documented by: [id number] Admin: 02/21/21 09:50 Dose: 400 mls/hr Documented by: [id number] Potassium Phosphate 9 mmol/ (Sodium Chloride) 253 mls @ 88 mls/hr IV ONE ONE Stop: 02/21/21 16:37 Last Infusion: 02/21/21 17:00 Dose: 0 mls/hr Documented by: [id number] Admin: 02/21/21 14:26 Dose: 88 mls/hr Documented by: [id number] Ketorolac Tromethamine (Ketorolac 30 Mg/Ml Vial) 30 mg IV NOW ONE Stop: 02/21/21 13:17 Last Admin: 02/21/21 13:23 Dose: 30 mg Documented by: [id number] Methocarbamol (Methocarbamol 750 Mg Tablet) 750 mg PO NOW STA Stop: 02/21/21 13:05 Last Admin: 02/21/21 13:23 Dose: 750 mg Documented by: [id number] Potassium Phosphate (Potassium Phos 3 Mmol/1 Ml Infusion) 9 mmol IV NOW STA Stop: 02/21/21 12:52 Last Admin: 02/21/21 14:26 Dose: 9 mmol Documented by: [id number] Potassium Phosphate (Pot Phosphate Monobasic W/ Sod Tab) 2 tab PO NOW STA Stop: 02/21/21 12:52 Last Admin: 02/21/21 13:23 Dose: 2 tab Documented by: [id number] Potassium Phosphate (Pot Phosphate Monobasic W/ Sod Tab) 1 tab PO TID MANJINDER Stop: 02/24/21 16:59 Last Admin: 02/21/21 17:58 Dose: 1 tab Documented by: [id number] Discharge Plan Visit Data Chief Complaint: Leg Injury/Pain Stated Complaint: LEG PAIN ED Provider: Miguel Watson Discharge Problem: Muscle spasm of left lower extremity, Multiple sclerosis, Stool incontinence, Hypophosphatemia, Serum calcium elevated Patient Disposition: Admitted As Inpatient Discharge Instructions Interventions: ED Discharge Assessment Last Done: 02/21/21 16:32 Discharge Problem: Stool incontinence Qualifiers: Fecal incontinence type: unspecified Qualified Code(s): R15.9 - Full incontinence of feces
[2021-02-21 09:58] LABS: Basophils # (auto) 0.03 K/uL (0-0.2); Basophils % (auto) 0.3 %; Eosinophils # (auto) 0.02 K/uL (0-0.5); Eosinophils % (auto) 0.2 %; Hematocrit (blood only) 46.1 % (42-52); Hemoglobin 15.4 g/dL (14.0-18.0); Immature Granulocytes # (auto) 0.06 K/uL (0.00-0.02); Immature Granulocytes % (auto) 0.6 %; Lymphocytes # (auto) 1.02 K/uL (1.2-3.4); Lymphocytes % (auto) 10.1 %; Mean Corpuscular Hemoglobin 31.9 pg (25-34); Mean Corpuscular Hgb Conc 33.4 g/dL (32-36); Mean Corpuscular Volume 95.4 fL (80-100); Mean Platelet Volume 10.1 fL (7.4-10.4); Monocytes # (auto) 1.22 K/uL (0.11-0.59); Monocytes % (auto) 12.1 %; Neutrophils # (auto) 7.75 K/uL (1.4-6.5); Neutrophils % (auto) 76.7 %; Platelet Count 266 K/uL (130-400); RDW Coefficient of Variation 12.4 % (11.5-14.5); RDW Standard Deviation 43.3 fL (36.4-46.3); Red Blood Count 4.83 M/uL (4.7-6.1)
[2021-02-21 10:18] LABS: Albumin Level 3.5 gm/dl (3.4-5.0); BUN Creatinine Ratio 9.7 (10-20); Calcium 10.3 mg/dl (8.5-10.1); Creatinine Clr Calc Pharmacy 97.4 ml/min; Est GFR (African American) 93.2 ml/min; Est GFR (Non-African American) 80.4 ml/min; Magnesium 2.6 mg/dl (1.8-2.4); Potassium 3.9 mmol/L (3.5-5.1)
[2021-02-21 10:21] LABS: Bilirubin,Total 0.4 mg/dl (0.2-1); Globulin 3.6 gm/dl (2.5-4.0); Phosphorus 1.6 mg/dl (2.5-4.9); Total Protein 7.1 gm/dl (6.4-8.2)
[2021-02-21] MEDS ORDERED: POT PHOSPHATE MONOBASIC W/ SOD TAB PO STA (12:51)
[2021-02-21] MEDS ORDERED: POTASSIUM PHOS 3 MMOL/1 ML INFUSION IV STA (12:51)
[2021-02-21] MEDS ORDERED: METHOCARBAMOL 750 MG TABLET PO STA (13:04)
[2021-02-21] MEDS ORDERED: KETOROLAC 30 MG/ML VIAL IV ONE (13:16)
--- NOTE | 2021-02-21 13:39 | History & Physical Report ---
Date of Service February 21, 2021 Assessment & Plan (1) Muscle spasm of left lower extremity: (2) Multiple sclerosis: (3) Stool incontinence: (4) Chronic deep vein thrombosis (DVT) of distal vein of left lower extremity: Plan: This is a 45-year-old male who has history of longstanding MS and is wheelchair- bound with chronic left-sided weakness and pain, Chronic LLE DVT anticoagulated on Eliquis, primary hyperparathyroidism, depression who presents to ED secondary to increasing left leg pain, weakness and bowel incontinence x1 day. L Leg Pain LLE weakness Ambulatory dysfunction Stool incontinence Chronic LLE DVT admit to med/surg Valium 2mg TID prn for leg spasm - pt prescribed tizanadine at home however doesn't use it due to fear or stool incontinence received skelaxin in ED He has freq bouts of stool incontinence per neuro evaluations in the past continue tylenol as needed Toradol 30mg x 1, avoid narcotics as much as possible due to prior hx of addiction pt reports 10 years ago previously has tried gabapentin and found not helpful consult neuro to eval for MS flare continue eliquis for chronic DVT MS with chronic L hemiparesis wheel chair bound follows [facility] neuro consult neuro no active treatment Hypophosphatemia received repletion in ED continue daily oral supplement x 3 days Hyperparathyroidism Chronic hypercalcemia dx with primary hyperparathyroidism 2/2 to 12mm parathyroid adenoma in left parathracheal region inferior to the lower pole of L thyroid lobe back in 2019. Recommendation is for surgical removal and pt should follow up with ENT Dr. Tracey and endocrinology. Pt needs OP follow up DVT ppx:eliquis Dispo: med/surg, pt amenable to rehab at this time; encourage acute rehab to help improve patient independence FULL CODE PCP: Dr. Pemberton Pt was seen and examined in collaboration with Dr. Ayoub, please see addendum History of Present Illness Chief Complaint: LLE Spasm, stool incontience x 1 day. Primary Care Provider: Jabari Pemberton This is a 45-year-old male who has history of longstanding MS and is wheelchair-bound with chronic left-sided weakness and pain, Chronic LLE DVT anticoagulated on Eliquis, primary hyperparathyroidism, depression who presents to ED secondary to increasing left leg pain, weakness and bowel incontinence x1 day. Of significance he was recently admitted 02/13-02/14 2/2 to increased LLE pain and swelling. He was treated with IV lasix and analgesia and sx improved. He was seen and eval by PT/OT. PT felt ok to be discharged home; however OT recommended rehab. He declined rehab at the time and was set up with home health services, PT/OT and [employer]. He states [employer] [facility] has yet to come to house due to their schedule. Per ED it was the patient who deferred [employer]. This morning pt woke up with stool incontinence and increasing pain to LLE and spasm. He was unable to move his leg because of the spasm so he had to call the ambulance. At this point he is interested in going to rehab to gain more independence. He lives at home with his father and has previously been able to transfer him self in and out of wheelchair. He denies any recent illness, f/c/s, chest pain, sob, n/v/d, abd pain, melena, hematochezia, urine incontinence. He denies any back pain or bowel or bladder anesthesia. In ED pt was hemodynamically stable. Lab showed hypophosphatemia, otherwise unremarkable. Pt is concerned about possible MS flare. He states typically his pain is improved with APAP, but did not help today. He avoids narcotic due to prior hx addiction 10 years ago. He has tizanidine at home, but is a afraid to use it b/c it causes stool incontinence as well. Although he has increased leg pain he denies any new weakness. He has loss of feeling to LLE which in unchanged for him. Allergies Allergy/AdvReac Type Severity Reaction Status Date / Time aspirin Allergy Severe airway Verified 02/21/21 12:21 edema; hives Home Medications Medication Instructions Recorded Confirmed Type apixaban 5 mg (74 tabs) tablets in 5 mg PO BID 09/11/20 02/21/21 History a dose pack (Eliquis) fluoxetine 10 mg capsule (Prozac) 10 mg PO QAM 09/11/20 02/21/21 History furosemide 20 mg tablet 20 mg PO DAILY 11/02/20 02/21/21 History Past Med/Surg History Medical History Chronic pain syndrome Hypercalcemia Multiple sclerosis Obstructive uropathy 2/2 renal stone, caused RUBI, pt admitted for this and hypercalcemia 05/2018 Primary hyperparathyroidism Seizure disorder Many years ago may have had single episode, pt was never treated for this, no reoccurrence. Surgical History History of cystoscopy WITH STENT PLACEMENT 06/14/18 [facility] Family History Father Stroke Thyroid disorder Other Hypertension Kidney stones Social History (Updated 02/21/21 @ 13:37 by Carlita Ferreira PA-C) Smoking Status: Never smoker Tobacco Type: Smokeless Tobacco (Dip or Chew) Cigarettes Per Day: 0; Second Hand Exposure: Yes; Do You Dip or Chew Tobacco: Yes; Tobacco Cessation Education Requested by Patient: No Hx Alcohol Use: Yes Alcohol type: beer Hx Substance Use: No Preferred Language: Iraqi Communication Ability: Effective Hemstitcher Required: No Beliefs That Will Affect Care: None marital status: Current Living Situation: Parent Current Living Situation Comment: brother and father at home current occupational status: disabled How many Children do You have: 2 Feels Safe at Home: Yes Safety Concerns: Feels Safe At This Time Assistive Devices: Wheelchair Assistive Devices Comment: Leg brace Review of Systems Review of Systems: All systems reviewed & are unremarkable except as noted in HPI & below Physical Exam Physical Exam: Gen: WD/WN, NAD, A&O x3 HEENT: Norm ocephalic, atrauma tic, conjunctivae moist, sclerae ani cteric, mucous mem branes moist. Neck : trachea midline, no adenopathy Rosalia g: Clear to Auscul tation bilaterally , no wheezes/rales /rhonchi Heart: Re gular rate, regula r rhythm, no murmu rs, rubs, or castellon ps, no edema Abdom en: Soft, NT, ND + BS x 4 Extremities : Inability to pas sively flex LLE, s trength 2-5 left l ower extremity whi ch is chronic, 4-5 left upper extrem ity, 5 out of 5 on right upper and l ower extremity Ski n: Warm, no rash, negative turgor. Results & Data Results & Data ([facility]) Vital Signs (Past 12 Hours) Vital Signs Pulse Pulse Resp BP BP Pulse Ox 02/21/21 12:26 82 20 134/80 97 02/21/21 11:03 80 16 134/68 99 02/21/21 09:45 99 02/21/21 09:05 83 84 18 145/88 H 145/88 H 97 Medications Administered Medication List Discontinued Medications Sodium Chloride (Nss 1000ml) 1,000 mls @ 999 mls/hr IV .Q1H1M ONE Stop: 02/21/21 10:28 Last Infusion: 02/21/21 12:27 Dose: 0 mls/hr Documented by: [id number] Admin: 02/21/21 09:52 Dose: 999 mls/hr Documented by: [id number] Acetaminophen (Ofirmev) 1,000 mg in 100 mls @ 400 mls/hr IV NOW STA Stop: 02/21/21 09:51 Last Infusion: 02/21/21 10:28 Dose: 0 mls/hr Documented by: [id number] Admin: 02/21/21 09:50 Dose: 400 mls/hr Documented by: [id number] Ketorolac Tromethamine (Ketorolac 30 Mg/Ml Vial) 30 mg IV NOW ONE Stop: 02/21/21 13:17 Last Admin: 02/21/21 13:23 Dose: 30 mg Documented by: [id number] Methocarbamol (Methocarbamol 750 Mg Tablet) 750 mg PO NOW STA Stop: 02/21/21 13:05 Last Admin: 02/21/21 13:23 Dose: 750 mg Documented by: [id number] Potassium Phosphate (Pot Phosphate Monobasic W/ Sod Tab) 2 tab PO NOW STA Stop: 02/21/21 12:52 Last Admin: 02/21/21 13:23 Dose: 2 tab Documented by: [id number] COVID-19 Results Results COVID-19 Adm Lab Results: RBC 4.83 M/uL (4.7-6.1) 02/21/21 WBC 10.10 K/uL (4.8-10.8) 02/21/21 Hgb 15.4 g/dL (14.0-18.0) 02/21/21 Hct 46.1 % (42-52) 02/21/21 Plt Count 266 K/uL (130-400) 02/21/21 Neutrophils (%) (Auto) 76.7 % 02/21/21 Lymphocytes (%) (Auto) 10.1 % 02/21/21 Monocytes # (Auto) 1.22 K/uL (0.11-0.59) H 02/21/21 Eosinophils # (Auto) 0.02 K/uL (0-0.5) 02/21/21 Immature Granulocyte % (Auto) 0.6 % 02/21/21 Neutrophils # (Auto) 7.75 K/uL (1.4-6.5) H 02/21/21 Lymphocytes # (Auto) 1.02 K/uL (1.2-3.4) L 02/21/21 Monocytes # (Auto) 1.22 K/uL (0.11-0.59) H 02/21/21 Eosinophils # (Auto) 0.02 K/uL (0-0.5) 02/21/21 Basophils # (Auto) 0.03 K/uL (0-0.2) 02/21/21 Immature Granulocyte # (Auto) 0.06 K/uL (0.00-0.02) H 02/21/21 Na 138 mmol/L (136-145) 02/21/21 K 3.9 mmol/L (3.5-5.1) 02/21/21 Cl 110 mmol/L (98-107) H 02/21/21 CO2 24 mmol/L (21-32) 02/21/21 Anion Gap 4.0 (3-11) 02/21/21 BUN 11 mg/dl (7-18) 02/21/21 Creatinine 1.09 mg/dl (0.6-1.4) 02/21/21 BUN/Creatinine Ratio 9.7 (10-20) L 02/21/21 Glucose Level 109 mg/dl (70-99) H 02/21/21 Ca 10.3 mg/dl (8.5-10.1) H 02/21/21 Phosphorus Level 1.6 mg/dl (2.5-4.9) L 02/21/21 Total Bilirubin 0.4 mg/dl (0.2-1) 02/21/21 AST/SGOT 11 U/L (15-37) L 02/21/21 ALT/SGPT 32 (12-78) 02/21/21 Alkaline Phosphatase 89 U/L (45-117) 02/21/21 Total Protein 7.1 gm/dl (6.4-8.2) 02/21/21 Albumin 3.5 gm/dl (3.4-5.0) 02/21/21 Globulin 3.6 gm/dl (2.5-4.0) 02/21/21 Albumin/Globulin Ratio 1.0 (0.9-2) 02/21/21 SARS-CoV-2, RNA, NAAT NEGATIVE (NEGATIVE) 02/21/21 Code Status & VTE Plan Code Status Full Code VTE Prophylaxis Plan VTE Prophylaxis will be ordered: No Supervising Physician Co-Signing Physician Notes Attending Addendum: care coordinated with EYAD Domingo please refer to her notes for full details, I agree with her notes patient seen and examined, records reviewed by myself as well on exam, patient seen resting in bed, comfortable, watching TV, not in distress States he feels improved compared to admission Left leg pain, spasms improving no chest pain, dyspnea, palpitations, dizziness no other symptoms VS noted and reviewed oriented x 3, not in distress, speaks in sentences with no effort nor accessory muscle use normal rate, regular rhythm, no murmurs clear breath sounds bilaterally non distended, soft, nontender no bipedal edema, erythema, warmth Left hemiparesis, otherwise no other gross neurological deficits WBC 10.1 Hg 15.4 Crea 1.09 Phosphorus 1.6 Calcium 10.3 ASSESSMENT AND PLAN Left leg pain, spasm, chronic left DVT MS, left hemiparesis Improving with tizanidine, continue as needed Neurology consultation Hypophosphatemia, mild hypercalcemia History of hyperparathyroidism Replace phosphorus Monitor calcium and phosphorus other diagnoses and plan of care as per EYAD Domingo's notes Sreedhar Ayoub MD
[2021-02-21] MEDS ORDERED: POTASSIUM PHOSPHATE 9 MMOL in SODIUM CHLORIDE 0.9% 250 ML IV ONE (13:45)
[2021-02-21] MEDS ORDERED: diazePAM 2 MG TABLET PO PRN (16:41)
[2021-02-21] MEDS ORDERED: ONDANSETRON INJ 2 MG/ML 2 ML VIAL IV PRN (16:41)
[2021-02-21] MEDS ORDERED: POLYETHYLENE (MIRALAX) 17 GM PACK PO PRN (16:41)
[2021-02-21] MEDS ORDERED: ALUMINUM/MAGNESIUM SUSP 30 ML UDC PO PRN (16:41)
[2021-02-21] MEDS ORDERED: POT PHOSPHATE MONOBASIC W/ SOD TAB PO SCH (17:00)
[2021-02-21] MEDS: ACETAMINOPHEN 325 MG TAB PO PRN (21:19)
[2021-02-21] MEDS: APIXABAN 5 MG TABLET PO SCH (21:20)
[2021-02-21] MEDS: POT PHOSPHATE MONOBASIC W/ SOD TAB PO SCH (21:21)
[2021-02-22 06:58] LABS: Hematocrit (blood only) 42.8 % (42-52); Hemoglobin 14.3 g/dL (14.0-18.0); Mean Corpuscular Hemoglobin 32.1 pg (25-34); Mean Corpuscular Hgb Conc 33.4 g/dL (32-36); Mean Corpuscular Volume 96.2 fL (80-100); Mean Platelet Volume 10.1 fL (7.4-10.4); Platelet Count 232 K/uL (130-400); RDW Coefficient of Variation 12.4 % (11.5-14.5); Red Blood Count 4.45 M/uL (4.7-6.1); White Blood Count 7.09 K/uL (4.8-10.8)
[2021-02-22 07:36] LABS: BUN Creatinine Ratio 9.5 (10-20); Calcium 9.4 mg/dl (8.5-10.1); Creatinine Clr Calc Pharmacy 99.2 ml/min; Est GFR (African American) 95.3 ml/min; Est GFR (Non-African American) 82.2 ml/min; Phosphorus 1.8 mg/dl (2.5-4.9); Potassium 3.8 mmol/L (3.5-5.1)
[2021-02-22] MEDS: POT PHOSPHATE MONOBASIC W/ SOD TAB PO SCH ×4 (08:34→20:29)
[2021-02-22] MEDS: FUROSEMIDE 20 MG TAB PO SCH (08:34)
[2021-02-22] MEDS: FLUoxetine HCL 10 MG CAP PO SCH (08:34)
[2021-02-22] MEDS: APIXABAN 5 MG TABLET PO SCH ×2 (10:41→20:29)
--- NOTE | 2021-02-22 15:21 | Consultation Report ---
DATE OF SERVICE: 02/22/2021 REASON FOR CONSULTATION: Increased weakness. HISTORY OF PRESENT ILLNESS: Mazin is well known to me. He is a 45-year-old presumed right-handed male with secondarily progressive multiple sclerosis. He was last on Ocrevus years ago, but discontinued I believe due to inconvenience, although it was an every 6 months drug. He has been in and out of the hospital. He has only been home a few days. He was admitted several days ago because of stool incontinence. When he is incontinent of stool in his sleep, he cannot clean himself up and he does not want his father to do so. Therefore, he calls an ambulance. He notes that he has felt weaker in his left lower extremity. The incontinence of stool happens at night while sleeping. It has been intermittent, but worse lately. He denies any spine pain. There have been no other new neurologic symptoms. He is continent of urine. He denies any urinary hesitancy. He has not recently been ill. His medicines have not recently been changed. The patient at baseline is able to transfer from bed to wheelchair. He typically uses a urinal to urinate. He has not had any fevers, chills, sweats, or weight loss. Denies spine pain. Diagnostically, on admission, his white count was 10, hemoglobin of 15.4, hematocrit 46.1, platelets 266. Chemistry notable for chloride of 110, glucose of 109, calcium 10.3 with a normal albumin, today it is 9.4, phosphorus is 1.6. No urinalysis was obtained. The patient has been afebrile. His blood pressure max was 145/88. The patient's past medical history as noted below for a DVT in the left lower extremity, chronic spasticity of the left lower extremity. The patient does not recall taking baclofen, but likely has. Tizanidine is felt to increase his incontinence. PAST MEDICAL HISTORY: He has hypophosphatemia, hyperparathyroidism and was to have parathyroid surgery, and the aforementioned DVT. 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 By report had a single seizure many years ago. PAST SURGICAL HISTORY: Notable for cystoscopy with stent placement. FAMILY HISTORY: Father has seizures, stroke, thyroid disease. Family history of hypertension and kidney stones. SOCIAL HISTORY: The patient does not smoke, occasionally drinks alcohol, occasionally uses marijuana for spasticity, which he finds to be helpful, although he does not get it from a dispensary. HOME MEDICATIONS: Eliquis, Prozac and furosemide. PHYSICAL EXAMINATION: VITAL SIGNS: 167/72, 74, 17, O2 sat 96%. The patient is awake and alert. He is an excellent historian. His spontaneous speech and language are normal. There is no spinal tenderness. No spinal level. There is some erythema between buttocks in the midline. No skin breakdown is appreciated. Pupils are equal and reactive. There are normal visual gama. There is horizontal nystagmus on left lateral gaze. No facial asymmetry. No dysarthria. Right arm and right leg are about 4/5, left arm at best 3/5, left lower extremity 0/5 with markedly increased tone. There is no sensory loss to light touch, temperature is symmetric. As stated previously, no trunk level. Yplzus-wv-pjhd is dystaxic on the right. Unable to perform on the left and is dystaxic in the right lower extremity. Reflexes are brisk in the lowers. Toes are mute. No carotid bruits, no heart murmurs. Abdomen is soft and nontender. IMPRESSION: 1. This patient has had multiple admissions and readmissions for fecal incontinence. It has intermittently been diarrheal. Defer to primary care regarding additional workup for diarrhea. 2. It would be unusual for tizanidine to worsen stool incontinence, although perhaps he is more sedated at night when he takes it and therefore is more likely to be incontinent. 3. The patient reports increased weakness and increased spasticity. For the most part, given the chronic and progressive nature of his disease, he is not likely to have flares; however, if no infectious etiology is found and parenthetically I would recommend urinalysis and urine culture, you could consider Solu-Medrol 1 gram over 1 hour daily for 3 days, followed by a steroid taper. RECOMMENDATIONS: Recommend MRI brain, cervical and thoracic spine with and without, although my index of suspicion to find a lesion other than multiple sclerosis is low. Recommend beginning baclofen 10 mg b.i.d. and discontinuing Valium. The patient has a history of oxycodone addiction and prefers non- addicting substances. It is unclear to me if he would be a good candidate for baclofen pump. Likely he would not as it is entirely possible that with the reduction of spasticity in the left leg that the right leg may feel weaker. I believe this patient needs some inpatient rehabilitation and possibly a bowel regimen. Things could be easier if he was able to evacuate his bowels before going to bed at night. In the absence of any significant improvement, this patient needs some type of placement where he can access 24-hour a day care if needed. We will follow with you. Job ID: [id number]
--- NOTE | 2021-02-22 15:45 | Hospitalist Progress Note ---
Date of Service February 22, 2021 Assessment & Plan (1) Muscle spasm of left lower extremity: (2) Multiple sclerosis: (3) Stool incontinence: (4) Chronic deep vein thrombosis (DVT) of distal vein of left lower extremity: Plan: per EYAD Carlita Domingo'adan notes with addendum: This is a 45-year-old male who has history of longstanding MS and is wheelchair- bound with chronic left-sided weakness and pain, Chronic LLE DVT anticoagulated on Eliquis, primary hyperparathyroidism, depression who presents to ED secondary to increasing left leg pain, weakness and bowel incontinence x1 day. L Leg Pain LLE weakness Ambulatory dysfunction Stool incontinence Chronic LLE DVT admit to med/surg Valium 2mg TID prn for leg spasm - pt prescribed tizanadine at home however doesn't use it due to fear or stool incontinence received skelaxin in ED He has freq bouts of stool incontinence per neuro evaluations in the past continue tylenol as needed Toradol 30mg x 1, avoid narcotics as much as possible due to prior hx of addiction pt reports 10 years ago previously has tried gabapentin and found not helpful consult neuro to eval for MS flare continue eliquis for chronic DVT 02/22 still having LLE spasms Valium changed to Baclofen BID MRI spine pending appreciate Neuro recommendations PT/OT ordered MS with chronic L hemiparesis wheel chair bound follows [facility] neuro consult neuro. appreciate the recommendations Hyperparathyroidism Chronic hypercalcemia Hypophosphatemia dx with primary hyperparathyroidism 2/2 to 12mm parathyroid adenoma in left parathracheal region inferior to the lower pole of L thyroid lobe back in 2019. Recommendation is for surgical removal and pt should follow up with ENT Dr. Tracey and endocrinology. Pt needs OP follow up -- continue Ph supplement monitor DVT ppx:eliquis Dispo: med/surg, pt amenable to rehab at this time; encourage acute rehab to help improve patient independence FULL CODE PCP: Dr. Pemberton plan of care discussed with patient in detail and at length all questions answered he is understanding, agreeable, comfortable with the plan of care Admission and Anticipated Discharge Date Admission Date: February 21, 2021 Subjective ff up for L leg spasms, MS, etc seen resting in bed, not in distress reports spasms on the left LE again RLE ok no other neuro symptoms no incontinence no chest pain, dyspnea, palpitations, dizziness no other symptoms Review of Systems Review of Systems: all noted and negative except for above Physical Exam Physical Exam: General- oriented x 3, not in distress, speaks in sentences with no effort or accessory muscle use Eyes- anicteric Neck- no JVD Lungs- clear breath sounds bilaterally, no rales/wheezes Heart- normal rate, regular rhythm; no murmurs Abdomen- normal bowel sounds, nondistended, soft, nontender Extremities- no pretibial edema, no calf tenderness Neuro- alert, oriented x 3; LLE strength 2-3/5 Skin- warm & dry Results & Data Results & [facility] ([facility]) Vital Signs (Past 12 Hours) Vital Signs Temp Pulse Resp BP Pulse Ox 02/22/21 08:05 36.7 C 74 17 167/72 H 96 all noted and reviewed including below (1) Stool incontinence Fecal incontinence type: unspecified Qualified Code(s): R15.9 - Full incontinence of feces
[2021-02-22] MEDS ORDERED: GADOBUTROL 10ML VIAL IV ONE (17:11)
[2021-02-22] MEDS ORDERED: traMADol HCL 50 MG TABLET PO STA (19:29)
--- NOTE | 2021-02-22 20:01 | Magnetic Resonance Report ---
MR brain wo/w con CLINICAL HISTORY: Patient reports increasing symptoms of focal sclerosis. Patient complains of leg p ain and inability to move the legs. Incontinence for 2 days.. COMPARISON STUDY: 04/27/2020 TECHNIQUE: Multiplanar multisequence images of the brain were performed before and after Gadavist, 9 .5 mL of IV contrast. Diffusion weighted imaging and ADC mapping was also performed. FINDINGS: Extra-axial space: There is no evidence for a subdural hematoma, There are no extra-axial fluid virginie ections. Ventricles and cisterns: The ventricles are normal in size and configuration. There is no evidence f or midline shift or mass effect. Parenchyma: On noncontrast images, there is no evidence for an acute hemorrhage or infarct. No acute diffusion abnormalities are noted on diffusion weighted imaging or ADC mapping. Compared to the prev ious examination, extensive T2 and FLAIR weighted foci are present throughout the brain which are not significantly changed from the previous examination. There is again cerebral cortical atrophy. The s ulci and gyri appear otherwise normal without effacement. The midline structures are unremarkable. Th e posterior fossa structures appear normal. On postcontrast images, there is no evidence for enhancing plaques are demonstrated with no evidence for active demyelination identified. Osseous structures: The paranasal sinuses are well aerated. The mastoid air cells are well aerated. Soft tissues: No focal soft tissue abnormalities are identified. IMPRESSION: 1. Compared to the previous examination, there is no significant interval change with no acute intrac erebral pathology.. 2. Extensive white matter T2 hyperintense foci and increased foci on FLAIR weighted imaging is again seen and essentially unchanged. 3. There are no enhancing plaques present with no MR evidence for active demyelination. 4. Cerebral cortical atrophy is again seen. ACT 112: Negative or not required by law. Electronically signed by: Giovanny Lizama M.D. 02/22/2021 8:00 PM
[2021-02-22] MEDS: BACLOFEN 10 MG TAB PO SCH (20:29)
[2021-02-22] MEDS: ACETAMINOPHEN 325 MG TAB PO PRN (21:52)
[2021-02-22] MEDS ORDERED: BACLOFEN 10 MG TAB PO STA (21:56)
--- NOTE | 2021-02-22 22:59 | Magnetic Resonance Report ---
MR cervical spine wo/w con CLINICAL HISTORY: Patient reports increasing symptoms of multiple sclerosis. Patient complains of le g pain and instability to move the legs. Incontinence for 2 days.. 04/27/2020 COMPARISON: 04/27/2020 TECHNIQUE: Multiplanar multisequence images of the Cervical Spine were performed were performed with and without IV contrast. Contrast Volume: 9.5 ml of Gadavist FINDINGS: There is no evidence for vertebral body fracture. The heights of the vertebral bodies are maintained. The vertebral bodies are in anatomic alignment. Homogeneous marrow signal seen without evidence for marrow edema or marrow replacement. The odontoid is intact and the atlantoaxial articulation is withi n normal limits. The craniocervical junction is within normal limits. Compared to the previous examination, there is increase in size and number of T2 hyperintense lesions seen throughout the cervical cord. Previously identified lesion at the C2 level now measures 9 mm. a more prominent lesion is now seen at C3 measuring 11 mm. There is also a more prominent lesion at th e C4-5 disc space level measuring 5 mm and at the C5-6 level measuring 7 mm. However, there is no abn ormal enhancement following contrast administration. C2-3: The disc space height is maintained. There are no focal disc protrusions or extrusions identi fied. The spinal canal is patent with no encroachment upon the spinal cord. The neural foramen are p atent bilaterally. There is no evidence for nerve root encroachment. The apophyseal joints are within normal limits. C3-4: The disc space height is maintained. There are no focal disc protrusions or extrusions identi fied. The spinal canal is patent with no encroachment upon the spinal cord. The neural foramen are p atent bilaterally. There is no evidence for nerve root encroachment. The apophyseal joints are within normal limits. C4-5: The disc space height is maintained. There are no focal disc protrusions or extrusions identi fied. The spinal canal is patent with no encroachment upon the spinal cord. The neural foramen are p atent bilaterally. There is no evidence for nerve root encroachment. The apophyseal joints are within normal limits. C5-6: The disc space height is maintained. There are no focal disc protrusions or extrusions identi fied. However, there is again asymmetric disc/osteophyte complex extending to the right, again effac ing the subarachnoid space. Uncovertebral spurring is also present and there is asymmetric right fora katerin encroachment compared to the left. There is no evidence for nerve root encroachment. The apophy seal joints are within normal limits. C6-7: The disc space height is maintained. There are no focal disc protrusions or extrusions identi fied. Posterior disc/osteophyte complex again abuts the spinal cord anteriorly without compressing o r deforming it. The neural foramen are patent bilaterally. There is no evidence for nerve root encroa chment. The apophyseal joints are within normal limits. C7-T1: The disc space height is maintained. There are no focal disc protrusions or extrusions ident ified. The spinal canal is patent with no encroachment upon the spinal cord. The neural foramen are patent bilaterally. There is no evidence for nerve root encroachment. The apophyseal joints are withi n normal limits. IMPRESSION: 1. Compared to the previous examination, there is increase in size and number of T2 hyperintense les ions throughout the cervical cord as described above. However, no enhancement is demonstrated with no evidence for active plaques present. 2. Degenerative disc disease again seen at C5-6 and C6-7. ACT 112: Negative or not required by law. Electronically signed by: Giovanny Lizama M.D. 02/22/2021 10:58 PM
[2021-02-23] MEDS: FLUoxetine HCL 10 MG CAP PO SCH (09:01)
[2021-02-23] MEDS: BACLOFEN 10 MG TAB PO SCH ×2 (09:01→21:29)
[2021-02-23] MEDS: FUROSEMIDE 20 MG TAB PO SCH (09:02)
[2021-02-23] MEDS: POT PHOSPHATE MONOBASIC W/ SOD TAB PO SCH ×4 (09:02→21:29)
[2021-02-23] MEDS: APIXABAN 5 MG TABLET PO SCH ×2 (09:02→21:29)
[2021-02-23 09:55] LABS: BUN Creatinine Ratio 9.1 (10-20); Calcium 10.1 mg/dl (8.5-10.1); Creatinine Clr Calc Pharmacy 84.3 ml/min; Est GFR (African American) 78.2 ml/min; Est GFR (Non-African American) 67.5 ml/min; Phosphorus 2.2 mg/dl (2.5-4.9); Potassium 4.2 mmol/L (3.5-5.1)
--- NOTE | 2021-02-23 10:20 | Magnetic Resonance Report ---
MR thoracic spine wo/w con CLINICAL HISTORY: increased sx of ms, increased incontinence TECHNIQUE: Multiplanar sequences through the thoracic spine were obtained, without intravenous contra st. Comparison: None available at the time of this dictation. FINDINGS: Exam is limited due to poor yewwga-xw-yozpc ratio. Multilevel compression deformities in the thoracic spine are similar in appearance to prior exam. Again seen are multifocal T2 hyperintense lesions in the thoracic spine, most prominent at T6-T7. There is suggestion of additional foci at T1 and T3. No abnormal enhancement is seen. The spinal ligaments are intact, without evidence of disruption or abnormal signal intensity. Partial visualization of a right renal cyst. IMPRESSION: Scattered foci of T2 hyperintensity, most prominent at T6-T7. Overall extent is similar in appearance to prior exam. ACT 112: Negative or not required by law. Electronically signed by: Benigno Munroe M.D. 02/23/2021 10:18 AM
--- NOTE | 2021-02-23 13:13 | Progress Notes ---
SUBJECTIVE: I am seeing the patient in followup of secondarily progressive MS with increased inconti nence and increased spasticity and left leg weakness. MRI of the brain and thoracic spine show no ac oral demyelinating lesions or other reasons for incontinence and both are stable. There are no enhanc ing lesions in the cervical spinal cord. The radiologist indicates that there are more lesions in th e cervical spine than there had been in 2020 earlier this year. I am not sure I agree with that. The patient is doing well. His left leg is much less stiff and he has a little bit more strength. H e was started on baclofen and Valium was discontinued. OBJECTIVE: Right upper and right lower about 4, left lower now is antigravity at the hip and tone is markedly reduced compared to what it had been, although it is still increased and left upper is abou t 3. IMPRESSION AND PLAN: This patient has had fluctuating spasticity and weakness many times, it has bee n unclear if it is a flare or a pseudo-flare. I am not convinced that there are new cervical spine c ord lesions compared to earlier this year and I will have another radiologist review the images. Eit her way, I would recommend 3 days of intravenous steroids, taking 1 g in 100 mL of D5W over 1 hour da keely for 3 days, followed by a steroid taper of prednisone 80 mg for 2 days, 60 mg per day for 4 days, 40 mg a day for 4 days, 20 mg a day for 4 days, and then 10 mg for 4 days, and then discontinue. Co ntinue baclofen at current dosing. Monitor for increased weakness which does not appear to have occu rred. Ongoing physical therapy and occupational therapy. I believe the patient will need inpatient r ehabilitation. Perhaps a bowel regime might be helpful with his incontinence, i.e., he is only incon tinent during sleep. So if he could evacuate his bowels prior to going to bed, this may solve some o f the problems. We discussed his last treatment, which was after this. He took several doses. He d oes not recall when he last took it, but he had significant personal stressors at this time and carolam e disgusted and did not reach out to reschedule. I am not sure that it should be restarted. We will see what the other radiologist thinks about the MRI of the cervical spine compared to earlier this y ear. In general, its reassuring that the patient looks better today. Job ID: [id number]
[2021-02-23] MEDS ORDERED: MAGNESIUM HYDROXIDE SUSP 30 ML UDC PO PRN (13:32)
--- NOTE | 2021-02-23 13:35 | Hospitalist Progress Note ---
Date of Service February 23, 2021 Assessment & Plan (1) Muscle spasm of left lower extremity: (2) Multiple sclerosis: (3) Stool incontinence: (4) Chronic deep vein thrombosis (DVT) of distal vein of left lower extremity: Plan: per EYAD Carlita Domingo'adan notes with addendum: This is a 45-year-old male who has history of longstanding MS and is wheelchair- bound with chronic left-sided weakness and pain, Chronic LLE DVT anticoagulated on Eliquis, primary hyperparathyroidism, depression who presents to ED secondary to increasing left leg pain, weakness and bowel incontinence x1 day. L Leg Pain LLE weakness Ambulatory dysfunction Stool incontinence Chronic LLE DVT admit to med/surg Valium 2mg TID prn for leg spasm - pt prescribed tizanadine at home however doesn't use it due to fear or stool incontinence received skelaxin in ED He has freq bouts of stool incontinence per neuro evaluations in the past continue tylenol as needed Toradol 30mg x 1, avoid narcotics as much as possible due to prior hx of addiction pt reports 10 years ago previously has tried gabapentin and found not helpful consult neuro to eval for MS flare continue eliquis for chronic DVT 02/22 still having LLE spasms Valium changed to Baclofen BID MRI spine pending appreciate Neuro recommendations PT/OT ordered 02/23 Leg pain and spasms on the left lower extremity much better Continue baclofen twice daily MRI of the brain, cervical, thoracic spine performed Further recommendations per neurology service Continue PT OT evaluation MS with chronic L hemiparesis wheel chair bound follows [facility] neuro consult neuro. appreciate the recommendations Hyperparathyroidism Chronic hypercalcemia Hypophosphatemia dx with primary hyperparathyroidism 2/2 to 12mm parathyroid adenoma in left parathracheal region inferior to the lower pole of L thyroid lobe back in 2019. Recommendation is for surgical removal and pt should follow up with ENT Dr. Tracey and endocrinology. Pt needs OP follow up -- continue Ph supplement monitor Constipation --Start MiraLAX daily DVT ppx:eliquis Dispo: med/surg, pt amenable to rehab at this time; encourage acute rehab to help improve patient independence FULL CODE PCP: Dr. Pemberton plan of care discussed with patient in detail and at length all questions answered he is understanding, agreeable, comfortable with the plan of care Admission and Anticipated Discharge Date Admission Date: February 23, 2021 Subjective Follow-up for leg pain/spasms, MS, etc. Seen resting in bed, watching TV,, not in distress In good spirits today States he feels better overall No leg pain or spasms since last night No other new neurological symptoms no chest pain, dyspnea, palpitations, dizziness Participating with PT and OT eval No other symptoms Review of Systems Review of Systems: all noted and negative except for above Physical Exam Physical Exam: General- oriented x 3, not in distress, speaks in sentences with no effort or accessory muscle use Eyes- anicteric Neck- no JVD Lungs- clear BS BL Heart- normal rate, regular rhythm; no murmurs Abdomen- normal bowel sounds, nondistended, soft, nontender Extremities- no pretibial edema, no calf tenderness Neuro- alert, oriented x 3; LL 3/5 motor strength, no gross focal neurologic deficits Skin- warm & dry Results & Data Results & Data ([facility]) Vital Signs (Past 12 Hours) Vital Signs Temp Pulse Resp BP Pulse Ox 02/23/21 06:03 36.4 C L 68 16 124/73 98 all noted and reviewed including below (1) Stool incontinence Fecal incontinence type: unspecified Qualified Code(s): R15.9 - Full incontinence of feces
[2021-02-23] MEDS: POLYETHYLENE (MIRALAX) 17 GM PACK PO SCH (14:45)
[2021-02-24] MEDS: POLYETHYLENE (MIRALAX) 17 GM PACK PO SCH (07:55)
[2021-02-24] MEDS: APIXABAN 5 MG TABLET PO SCH ×2 (07:55→20:57)
[2021-02-24] MEDS: POT PHOSPHATE MONOBASIC W/ SOD TAB PO SCH ×4 (07:55→20:58)
[2021-02-24] MEDS: FLUoxetine HCL 10 MG CAP PO SCH (07:56)
[2021-02-24] MEDS: FUROSEMIDE 20 MG TAB PO SCH (07:56)
[2021-02-24] MEDS: BACLOFEN 10 MG TAB PO SCH ×2 (07:56→20:57)
[2021-02-24 08:27] LABS: Calcium 9.5 mg/dl (8.5-10.1); Creatinine Clr Calc Pharmacy 97.4 ml/min; Est GFR (African American) 93.2 ml/min; Est GFR (Non-African American) 80.4 ml/min; Phosphorus 2.4 mg/dl (2.5-4.9)
[2021-02-24] MEDS: ACETAMINOPHEN 325 MG TAB PO PRN ×2 (09:43→21:29)
[2021-02-24] MEDS: methylPREDNISolone 1,000 MG in DEXTROSE 5% 250 ML IV SCH (10:06)
--- NOTE | 2021-02-24 13:49 | Progress Notes ---
DATE OF NOTE: 02/24/2021. SUBJECTIVE: I am seeing the patient in follow up with secondary progressive multiple sclerosis. Beth palma has been helpful for his spasticity. He started IV steroids, I believe yesterday and feels imp roved. OBJECTIVE: On exam, he is awake and alert. Speech and language are normal. Affect appropriate. Th ere is mild right sided weakness. At worst 4-4+/5 left upper is about 3-3+ left lower is antigravity . Tone is increased in the left lower, although certainly decreased from admission. There is dystax ia on sfyheg-xi-hdlr bilaterally. IMPRESSION: Secondarily progressive multiple sclerosis. Unclear if this is a flare or a pseudo flar e. I will review tomorrow with Radiology to see if they agree that there are more lesions in the cer vical spine on this study than there were in 04/2020. If indeed that is the case, I would likely ayan ch out to the MS specialist in our system and see if that would warrant any ongoing or reinstitution of Ocrevus or other medications. Continue current dose of baclofen. I feel strongly that the patien t needs inpatient rehabilitation. Social work needs to get involved. Due to his nocturnal incontinen ce, I think the patient will need to be placed in an environment that he would have access to 24-hour a day care as needed. We will sign off, but will check back with Radiology tomorrow. Job ID: [id number]
--- NOTE | 2021-02-24 15:00 | Hospitalist Progress Note ---
Date of Service February 24, 2021 Assessment & Plan (1) Muscle spasm of left lower extremity: (2) Multiple sclerosis: (3) Stool incontinence: (4) Chronic deep vein thrombosis (DVT) of distal vein of left lower extremity: Plan: per EYAD Domingo'adan notes with addendum: This is a 45-year-old male who has history of longstanding MS and is wheelchair- bound with chronic left-sided weakness and pain, Chronic LLE DVT anticoagulated on Eliquis, primary hyperparathyroidism, depression who presents to ED secondary to increasing left leg pain, weakness and bowel incontinence x1 day. L Leg Pain LLE weakness Ambulatory dysfunction Stool incontinence Chronic LLE DVT admit to med/surg Valium 2mg TID prn for leg spasm - pt prescribed tizanadine at home however doesn't use it due to fear or stool incontinence received skelaxin in ED He has freq bouts of stool incontinence per neuro evaluations in the past continue tylenol as needed Toradol 30mg x 1, avoid narcotics as much as possible due to prior hx of addiction pt reports 10 years ago previously has tried gabapentin and found not helpful consult neuro to eval for MS flare continue eliquis for chronic DVT 02/22 still having LLE spasms Valium changed to Baclofen BID MRI spine pending appreciate Neuro recommendations PT/OT ordered 02/23 Leg pain and spasms on the left lower extremity much better Continue baclofen twice daily MRI of the brain, cervical, thoracic spine performed Further recommendations per neurology service Continue PT OT evaluation 02/24 Seems to be improving overall Leg spasms have resolved, left lower extremity weakness also improving per patient per Dr. Renteria MS secondarily progressive Solu-Medrol 1 g IV x3 days started Then prednisone taper Continue baclofen MS with chronic L hemiparesis wheel chair bound follows the [facility] neuro consult neuro. appreciate the recommendations Hyperparathyroidism Chronic hypercalcemia Hypophosphatemia dx with primary hyperparathyroidism 2/2 to 12mm parathyroid adenoma in left parathracheal region inferior to the lower pole of L thyroid lobe back in 2019. Recommendation is for surgical removal and pt should follow up with ENT Dr. Tracey and endocrinology. Pt needs OP follow up -- continue Ph supplement monitor Constipation --MiraLAX daily As needed Milk of magnesium DVT ppx:eliquis Dispo: med/surg, pt amenable to rehab at this time; encourage acute rehab to help improve patient independence FULL CODE PCP: Dr. Pemberton plan of care discussed with patient in detail and at length all questions answered he is understanding, agreeable, comfortable with the plan of care Admission and Anticipated Discharge Date Admission Date: February 23, 2021 Subjective Follow-up for left leg weakness, spasms, multiple sclerosis, etc. Seen resting in bed, in good spirits States he continues to feel improved overall leg pain and spasms have resolved States left leg weakness is improving Able to raise up the leg against gravity today No other symptoms Review of Systems Review of Systems: all noted and negative except for above Physical Exam Physical Exam: General- oriented x 3, not in distress, speaks in sentences with no effort or accessory muscle use Eyes- anicteric Neck- no JVD Lungs- clear breath sounds, no crackles or wheezing bilaterally Heart- normal rate, regular rhythm; no murmurs Abdomen- normal bowel sounds, nondistended, soft, nontender Extremities- no pretibial edema, no calf tenderness Neuro- alert, oriented x 3; left lower extremity motor strength 1/5 Skin- warm & dry Results & Data Results & Data ([facility]) Vital Signs (Past 12 Hours) Vital Signs Temp Pulse Resp BP Pulse Ox 02/24/21 07:46 36.5 C 66 16 135/82 94 all noted and reviewed including below (1) Stool incontinence Fecal incontinence type: unspecified Qualified Code(s): R15.9 - Full incontinence of feces
[2021-02-25 08:38] LABS: BUN Creatinine Ratio 13.1 (10-20); Calcium 10.5 mg/dl (8.5-10.1); Creatinine Clr Calc Pharmacy 91.5 ml/min; Est GFR (African American) 86.4 ml/min; Est GFR (Non-African American) 74.6 ml/min
[2021-02-25] MEDS: methylPREDNISolone 1,000 MG in DEXTROSE 5% 250 ML IV SCH (08:43)
[2021-02-25] MEDS: POLYETHYLENE (MIRALAX) 17 GM PACK PO SCH ×2 (08:48→21:14)
[2021-02-25] MEDS: FUROSEMIDE 20 MG TAB PO SCH (08:48)
[2021-02-25] MEDS: FLUoxetine HCL 10 MG CAP PO SCH (08:48)
[2021-02-25] MEDS: POT PHOSPHATE MONOBASIC W/ SOD TAB PO SCH ×4 (08:48→21:13)
[2021-02-25] MEDS: BACLOFEN 10 MG TAB PO SCH ×2 (08:49→21:16)
[2021-02-25] MEDS: APIXABAN 5 MG TABLET PO SCH ×2 (08:49→21:14)
--- NOTE | 2021-02-25 15:01 | Hospitalist Progress Note ---
Date of Service February 25, 2021 Assessment & Plan (1) Muscle spasm of left lower extremity: (2) Multiple sclerosis: (3) Stool incontinence: (4) Chronic deep vein thrombosis (DVT) of distal vein of left lower extremity: Plan: This is a 45-year-old male who has history of longstanding MS and is wheelchair- bound with chronic left-sided weakness and pain, Chronic LLE DVT anticoagulated on Eliquis, primary hyperparathyroidism, depression who presented to ED tripp mcmanus to increasing left leg pain, weakness and bowel incontinence x1 day. MS flare LLE weakness Ambulatory dysfunction Initially given Valium 2mg TID prn for leg spasm --> changed to baclofen 10 mg twice daily per neurology. Prescribed tizanidine at home however doesn't use it due to fear or stool incontinence. Received Skelaxin in ED He has freq bouts of stool incontinence per neuro evaluations in the past Neurology consulted for MS flare -recommends Solu-Medrol 1 g IV x 3 days (day 2), then prolonged taper S/p brain, cervical spine, thoracic spine MRIs Will need outpatient follow-up with neurology Patient reports marked improvement in left lower extremity weakness History of DVT On Eliquis Hyperparathyroidism Chronic hypercalcemia Hypophosphatemia dx with primary hyperparathyroidism 2/2 to 12mm parathyroid adenoma in left parathracheal region inferior to the lower pole of L thyroid lobe back in 2019. Recommendation is for surgical removal and pt should follow up with ENT Dr. Tracey and endocrinology. Pt needs OP follow up Continue phosphorus supplement Constipation Started on MiraLAX, will add Colace today DVT ppx:eliquis Dispo: Improving, likely discharge in the next 1 to 2 days. Patient would like to return home with home health. Attending Addendum: delayed entry date of service noted above care coordinated with AISSATOU Nance please refer to her notes for full details, I agree with her notes patient seen and examined, records reviewed by myself as well on exam, patient seen resting in bed, in good spirits states he can move is L LE now still constipated no other symptoms VS noted and reviewed oriented x 3 , not in distress, speaks in sentences with no effort nor accessory muscle use normal rate, regular rhythm, no murmurs clear breath sounds bilaterally non distended, soft, nontender no bipedal edema, erythema, warmth L LE 2/5 motor strength, no new neuro deficits labs noted and reviewed ASSESSMENT AND PLAN MS FLARE continue Solumedrol, then Prednisone taper CONSTIPATION daily laxative other diagnoses and plan of care as per AISSATOU Nance's notes Sreedhar Ayoub MD Admission and Anticipated Discharge Date Admission Date: February 23, 2021 Subjective Patient seen and examined. Follow-up for weakness due to MS flare. Reports he has increased movement of his left leg which he has been unable to do for the past several years. Patient resting in bed, no acute distress. Reports ongoing constipation however no other complaints. Denies abdominal pain or nausea. No chest pain or shortness of breath. Review of Systems Review of Systems: ROS per HPI, all other systems reviewed and negative Physical Exam Constitutional: WD/WN, vitals as above Respiratory: normal respiratory effort, lungs clear to auscultation Cardiovascular: Rate/Rhythm: regular rate and regular rhythm Vessels: normal peripheral pulses Extremities: no edema Gastrointestinal (Abdomen): Percussion/Palpation: abdomen soft; abdomen nontender Musculoskeletal: Chronic lower extremity weakness Results & Data Results & Data ([facility]) Vital Signs (Past 12 Hours) Vital Signs Temp Pulse Resp BP Pulse Ox 02/25/21 07:51 36.6 C 76 16 130/76 94 Laboratory Results [facility] 02/25/21 07:32 Sodium 143 Potassium 4.0 Chloride 112 H Carbon Dioxide 25 BUN 15 Creatinine 1.16 Glucose 99 Calcium 10.5 H (1) Stool incontinence Fecal incontinence type: unspecified Qualified Code(s): R15.9 - Full incontinence of feces
--- NOTE | 2021-02-25 15:09 | Communication Note ---
Date of Service: February 25, 2021 Talked to Mazin by phone and gave him the update information on his MRIs brain, c spine, t spine. There are no new lesions, the exiting lesions look the same back to scans done in 2016. He is very appreciative of the baclofen his is able to move is left leg. he is not planning on going to rehab. he wants to go home with home healthy. all questions answered. will schedule a follow up in our clinic in 4- 6 weeks after discharge. Rachel Rincon [facility] neurology
[2021-02-25] MEDS: MAGNESIUM HYDROXIDE SUSP 30 ML UDC PO PRN (19:47)
[2021-02-25] MEDS: DOCUSATE SODIUM 100 MG CAP PO SCH (21:13)
[2021-02-25] MEDS: ACETAMINOPHEN 325 MG TAB PO PRN (21:16)
[2021-02-26 06:53] LABS: BUN Creatinine Ratio 16.1 (10-20); Creatinine Clr Calc Pharmacy 96.5 ml/min; Est GFR (African American) 92.2 ml/min; Est GFR (Non-African American) 79.5 ml/min
[2021-02-26 06:54] LABS: Phosphorus 3.2 mg/dl (2.5-4.9)
[2021-02-26] MEDS: APIXABAN 5 MG TABLET PO SCH ×2 (09:57→21:07)
[2021-02-26] MEDS: FUROSEMIDE 20 MG TAB PO SCH (09:57)
[2021-02-26] MEDS: DOCUSATE SODIUM 100 MG CAP PO SCH ×2 (09:57→21:07)
[2021-02-26] MEDS: FLUoxetine HCL 10 MG CAP PO SCH (09:57)
[2021-02-26] MEDS: POT PHOSPHATE MONOBASIC W/ SOD TAB PO SCH ×4 (09:57→21:06)
[2021-02-26] MEDS: BACLOFEN 10 MG TAB PO SCH ×2 (09:58→21:07)
[2021-02-26] MEDS: POLYETHYLENE (MIRALAX) 17 GM PACK PO SCH ×2 (10:00→21:08)
[2021-02-26] MEDS: methylPREDNISolone 1,000 MG in DEXTROSE 5% 250 ML IV SCH (10:03)
[2021-02-26] MEDS ORDERED: MAGNESIUM HYDROXIDE SUSP 30 ML UDC PO ONE (13:00)
--- NOTE | 2021-02-26 15:41 | Hospitalist Progress Note ---
Date of Service February 26, 2021 Assessment & Plan (1) Muscle spasm of left lower extremity: (2) Multiple sclerosis: (3) Stool incontinence: (4) Chronic deep vein thrombosis (DVT) of distal vein of left lower extremity: Plan: This is a 45-year-old male who has history of longstanding MS and is wheelchair- bound with chronic left-sided weakness and pain, Chronic LLE DVT anticoagulated on Eliquis, primary hyperparathyroidism, depression who presented to ED tripp mcmanus to increasing left leg pain, weakness and bowel incontinence x1 day. MS flare LLE weakness Ambulatory dysfunction Initially given Valium 2mg TID prn for leg spasm --> changed to baclofen 10 mg twice daily per neurology. Prescribed tizanidine at home however doesn't use it due to fear or stool incontinence. Received Skelaxin in ED He has freq bouts of stool incontinence per neuro evaluations in the past Neurology consulted for MS flare -recommends Solu-Medrol 1 g IV x 3 days (day 3), then prolonged taper S/p brain, cervical spine, thoracic spine MRIs -no new lesions, appear the same as scans in 2016 Will need outpatient follow-up with neurology Patient reports marked improvement in left lower extremity weakness History of DVT On Eliquis Hyperparathyroidism Chronic hypercalcemia Hypophosphatemia dx with primary hyperparathyroidism 2/2 to 12mm parathyroid adenoma in left parathracheal region inferior to the lower pole of L thyroid lobe back in 2019. Recommendation is for surgical removal and pt should follow up with ENT Dr. Tracey and endocrinology. Pt needs OP follow up Continue phosphorus supplement Constipation On MiraLAX and Colace twice daily Milk of magnesia x 1 dose today DVT ppx:eliquis Dispo: Improving, likely discharge home tomorrow with home health. Admission and Anticipated Discharge Date Admission Date: February 23, 2021 Supervising Physician Co-Signing Physician Notes delayed entry date of service noted above Attending Addendum: care coordinated with AISSATOU Nance please refer to her notes for full details, I agree with her notes patient seen and examined, records reviewed by myself as well on exam, patient seen resting in bed, comfortable in good spirits states he continues to feel improved able to move L LE better no other symptoms VS noted and reviewed oriented x 3 , not in distress, speaks in sentences with no effort nor accessory muscle use normal rate, regular rhythm, no murmurs clear breath sounds bilaterally non distended, soft, nontender no bipedal edema, erythema, warmth no new neuro deficits labs: all noted and reviewed including below ASSESSMENT AND PLAN possible MS Flare Solumedrol today, then Prednisone taper Constipation continue daily laxative other diagnoses and plan of care as per AISSATOU Nance's notes Sreedhar Ayoub MD Subjective Patient seen and examined. Follow-up for weakness due to MS flare. Patient continues to feel well. Eager to be discharged home tomorrow with home health. Reports he has increased movement of his left leg which he has been unable to do for the past several years. Reports flatus however no BM. Denies abdominal pain or nausea. No chest pain or shortness of breath. Review of Systems Review of Systems: ROS per HPI, all other systems reviewed and negative Physical Exam Constitutional: WD/WN, vitals as above no acute distress Respiratory: normal respiratory effort, lungs clear to auscultation Cardiovascular: Rate/Rhythm: regular rate and regular rhythm Vessels: normal peripheral pulses Extremities: no edema Gastrointestinal (Abdomen): Percussion/Palpation: abdomen soft; abdomen nontender Musculoskeletal: Chronic left hemiplegia, BLE weakness, L > R Skin: no rashes, warm and dry Neurologic: no focal motor deficits Psychiatric: A+Ox3, euthymic affect Results & Data Results & Data ([facility]) Vital Signs (Past 12 Hours) Vital Signs Temp Pulse Resp BP Pulse Ox 02/26/21 07:41 36.3 C L 69 16 146/88 H 94 Laboratory Results [facility] 02/26/21 06:01 Sodium 142 Potassium 4.0 Chloride 113 H Carbon Dioxide 25 BUN 18 Creatinine 1.10 Glucose 113 H Calcium 10.0 (1) Stool incontinence Fecal incontinence type: unspecified Qualified Code(s): R15.9 - Full incontinence of feces
[2021-02-26] MEDS: MAGNESIUM HYDROXIDE SUSP 30 ML UDC PO PRN (21:11)
[2021-02-27 07:09] LABS: BUN Creatinine Ratio 16.5 (10-20); Calcium 9.6 mg/dl (8.5-10.1); Creatinine Clr Calc Pharmacy 82.9 ml/min; Est GFR (African American) 76.7 ml/min; Est GFR (Non-African American) 66.2 ml/min; Potassium 3.6 mmol/L (3.5-5.1)
[2021-02-27 07:10] LABS: Phosphorus 3.3 mg/dl (2.5-4.9)
[2021-02-27] MEDS: FLUoxetine HCL 10 MG CAP PO SCH (08:53)
[2021-02-27] MEDS: FUROSEMIDE 20 MG TAB PO SCH (08:53)
[2021-02-27] MEDS: BACLOFEN 10 MG TAB PO SCH (08:53)
[2021-02-27] MEDS: POT PHOSPHATE MONOBASIC W/ SOD TAB PO SCH ×2 (08:54→12:42)
[2021-02-27] MEDS: DOCUSATE SODIUM 100 MG CAP PO SCH (08:54)
[2021-02-27] MEDS: APIXABAN 5 MG TABLET PO SCH (08:54)
[2021-02-27] MEDS: POLYETHYLENE (MIRALAX) 17 GM PACK PO SCH (08:54)
[2021-02-27] MEDS: methylPREDNISolone 1,000 MG in DEXTROSE 5% 250 ML IV SCH (09:04)
[2021-02-27] MEDS: MAGNESIUM HYDROXIDE SUSP 30 ML UDC PO PRN (12:42)
--- NOTE | 2021-02-27 16:24 | Discharge Summary ---
Date of Service February 27, 2021 Admission HPI Per Admitting Provider This is a 45-year-old male who has history of longstanding MS and is wheelchair- bound with chronic left-sided weakness and pain, Chronic LLE DVT anticoagulated on Eliquis, primary hyperparathyroidism, depression who presents to ED secondary to increasing left leg pain, weakness and bowel incontinence x1 day. Of significance he was recently admitted 02/13-02/14 04/03 to increased LLE pain and swelling. He was treated with IV lasix and analgesia and sx improved. He was seen and eval by PT/OT. PT felt ok to be discharged home; however OT recommended rehab. He declined rehab at the time and was set up with home health services, PT/OT and [facility]. He states [facility] has yet to come to house due to their schedule. Per ED it was the patient who deferred [facility]. This morning pt woke up with stool incontinence and increasing pain to LLE and spasm. He was unable to move his leg because of the spasm so he had to call the ambulance. At this point he is interested in going to rehab to gain more independence. He lives at home with his father and has previously been able to transfer him self in and out of wheelchair. He denies any recent illness, f/c/s, chest pain, sob, n/v/d, abd pain, melena, hematochezia, urine incontinence. He denies any back pain or bowel or bladder anesthesia. In ED pt was hemodynamically stable. Lab showed hypophosphatemia, otherwise unremarkable. Pt is concerned about possible MS flare. He states typically his pain is improved with APAP, but did not help today. He avoids narcotic due to prior hx addiction 10 years ago. He has tizanidine at home, but is a afraid to use it b/c it causes stool incontinence as well. Although he has increased leg pain he denies any new weakness. He has loss of feeling to LLE which in unchanged for him. Admission Exam Per Admitting Provider Gen: WD/WN, NAD,A&O x3 HEENT: Norm ocephalic, atraumatic, conjunctivae moist, sclerae anicteric, mucous membranes moist. Neck: trachea midline,no adenopathy Lung: Clear to Auscultation bilaterally, no wheezes/rales/rhonchi Heart: Regular rate, regular rhythm, no murmurs, rubs, or gallops, no edema Abdomen: Soft, NT, ND +BS x 4 Extremities: Inability to passively flex LLE, strength 2-5 left lower extremity which is chronic, 4-5left upper extremity, 5 out of 5 onright upper and lower extremity Skin: Warm, no rash,negative turgor. Principal Diagnosis Muscle spasm of left lower extremity: Multiple sclerosis: Stool incontinence: Chronic deep vein thrombosis (DVT) of distal vein of left lower extremity: Hyperparathyroidism, depression who presents to ED secondary to increasing left leg pain, weakness and bowel incontinence x1 day. Ambulatory dysfunction Discharge Exam Constitutional: WD/WN, vitals as above no acute distress Respiratory: normal respiratory effort, lungs clear to auscultation Cardiovascular: Rate/Rhythm: regular rate and regular rhythm Vessels: normal peripheral pulses Extremities: no edema Gastrointestinal (Abdomen): Percussion/Palpation: abdomen soft; abdomen nontender Musculoskeletal: Chronic left hemiplegia, BLE weakness, L > R Skin: no rashes, warm and dry Neurologic: no focal motor deficits Psychiatric: A+Ox3, euthymic affect Discharge Data Allergies Allergy/AdvReac Type Severity Reaction Status Date / Time aspirin Allergy Severe airway Verified 02/21/21 12:21 edema; hives Consultations 02/21/21 12:05 ED Decision to Admit Stat 02/21/21 12:59 Consult Neurology Routine Ordered Studies 02/22/21 14:56 MR brain wo/w con Routine MR cervical spine wo/w con Routine MRI Thoracic [MR thoracic spine wo/w con] Routine MR thoracic spine wo/w con CLINICAL HISTORY: increased sx of ms, increased incontinence TECHNIQUE: Multiplanar sequences through the thoracic spine were obtained, without intravenous contrast. Comparison: None available at the time of this dictation. FINDINGS: Exam is limited due to poor [id number] ratio. Multilevel compression deformities in the thoracic spine are similar in appearance to prior exam. Again seen are multifocal T2 hyperintense lesions in the thoracic spine, most prominent at T6-T7. There is suggestion of additional foci at T1 and T3. No abnormal enhancement is seen. The spinal ligaments are intact, without evidence of disruption or abnormal signal intensity. Partial visualization of a right renal cyst. IMPRESSION: Scattered foci of T2 hyperintensity, most prominent at T6-T7. Overall extent is similar in appearance to prior exam. ACT 112: Negative or not required by law. Electronically signed by: Benigno Munroe M.D. 02/23/2021 10:18 AM Dictated:02/23/21 1000 Transcribed: 02/23/21 1000 MR cervical spine wo/w con CLINICAL HISTORY: Patient reports increasing symptoms of multiple sclerosis. Patient complains of leg pain and instability to move the legs. Incontinence for 2 days.. 04/27/2020 COMPARISON: 04/27/2020 TECHNIQUE: Multiplanar multisequence images of the Cervical Spine were performed were performed with and without IV contrast. Contrast Volume: 9.5 ml of Gadavist FINDINGS: There is no evidence for vertebral body fracture. The heights of the vertebral bodies are maintained. The vertebral bodies are in anatomic alignment. Homogeneous marrow signal seen without evidence for marrow edema or marrow replacement. The odontoid is intact and the atlantoaxial articulation is within normal limits. The craniocervical junction is within normal limits. Compared to the previous examination, there is increase in size and number of T2 hyperintense lesions seen throughout the cervical cord. Previously identified lesion at the C2 level now measures 9 mm. a more prominent lesion is now seen at C3 measuring 11 mm. There is also a more prominent lesion at the C4-5 disc space level measuring 5 mm and at the C5-6 level measuring 7 mm. However, there is no abnormal enhancement following contrast administration. C2-3: The disc space height is maintained. There are no focal disc protrusions or extrusions identified. The spinal canal is patent with no encroachment upon the spinal cord. The neural foramen are patent bilaterally. There is no evidence for nerve root encroachment. The apophyseal joints are within normal limits. C3-4: The disc space height is maintained. There are no focal disc protrusions or extrusions identified. The spinal canal is patent with no encroachment upon the spinal cord. The neural foramen are patent bilaterally. There is no evidence for nerve root encroachment. The apophyseal joints are within normal limits. C4-5: The disc space height is maintained. There are no focal disc protrusions or extrusions identified. The spinal canal is patent with no encroachment upon the spinal cord. The neural foramen are patent bilaterally. There is no evidence for nerve root encroachment. The apophyseal joints are within normal limits. C5-6: The disc space height is maintained. There are no focal disc protrusions or extrusions identified. However, there is again asymmetric disc/osteophyte complex extending to the right, again effacing the subarachnoid space. Uncovertebral spurring is also present and there is asymmetric right foraminal encroachment compared to the left. There is no evidence for nerve root encroachment. The apophyseal joints are within normal limits. C6-7: The disc space height is maintained. There are no focal disc protrusions or extrusions identified. Posterior disc/osteophyte complex again abuts the spinal cord anteriorly without compressing or deforming it. The neural foramen are patent bilaterally. There is no evidence for nerve root encroachment. The apophyseal joints are within normal limits. C7-T1: The disc space height is maintained. There are no focal disc protrusions or extrusions identified. The spinal canal is patent with no encroachment upon the spinal cord. The neural foramen are patent bilaterally. There is no evidence for nerve root encroachment. The apophyseal joints are within normal limits. IMPRESSION: 1. Compared to the previous examination, there is increase in size and number of T2 hyperintense lesions throughout the cervical cord as described above. However, no enhancement is demonstrated with no evidence for active plaques present. 2. Degenerative disc disease again seen at C5-6 and C6-7. ACT 112: Negative or not required by law. Electronically signed by: Giovanny Lizama M.D. 02/22/2021 10:58 PM Dictated:02/22/212241 Transcribed: 02/22/212241 MR brain wo/w con CLINICAL HISTORY: Patient reports increasing symptoms of focal sclerosis. Patient complains of leg pain and inability to move the legs. Incontinence for 2 days.. COMPARISON STUDY: 04/27/2020 TECHNIQUE: Multiplanar multisequence images of the brain were performed before and after Gadavist, 9.5 mL of IV contrast. Diffusion weighted imaging and ADC mapping was also performed. FINDINGS: Extra-axial space: There is no evidence for a subdural hematoma, There are no extra-axial fluid collections. Ventricles and cisterns: The ventricles are normal in size and configuration. There is no evidence for midline shift or mass effect. Parenchyma: On noncontrast images, there is no evidence for an acute hemorrhage or infarct. No acute diffusion abnormalities are noted on diffusion weighted imaging or ADC mapping. Compared to the previous examination, extensive T2 and FLAIR weighted foci are present throughout the brain which are not significantly changed from the previous examination. There is again cerebral cortical atrophy. The sulci and gyri appear otherwise normal without effacement. The midline structures are unremarkable. The posterior fossa structures appear normal. On postcontrast images, there is no evidence for enhancing plaques are demonstrated with no evidence for active demyelination identified. Osseous structures: The paranasal sinuses are well aerated. The mastoid air cells are well aerated. Soft tissues: No focal soft tissue abnormalities are identified. IMPRESSION: 1. Compared to the previous examination, there is no significant interval change with no acute intracerebral pathology.. 2. Extensive white matter T2 hyperintense foci and increased foci on FLAIR weighted imaging is again seen and essentially unchanged. 3. There are no enhancing plaques present with no MR evidence for active demyelination. 4. Cerebral cortical atrophy is again seen. ACT 112: Negative or not required by law. Electronically signed by: Giovanny Lizama M.D. 02/22/2021 8:00 PM Dictated:02/22/211947 Transcribed: 02/22/211947 Hospital Course (1) Muscle spasm of left lower extremity: (2) Multiple sclerosis: (3) Stool incontinence: (4) Chronic deep vein thrombosis (DVT) of distal vein of left lower extremity: This is a 45-year-old male who has history of longstanding MS and is wheelchair-bound with chronic left-sided weakness and pain, Chronic LLE DVT anticoagulated on Eliquis, primary hyperparathyroidism, depression who presented to ED secondary to increasing left leg pain, weakness and bowel incontinence x1 day. MS flare LLE weakness Ambulatory dysfunction Initially given Valium 2mg TID prn for leg spasm --> changed to baclofen 10 mg twice daily per neurology. Prescribed tizanidine at home however doesn't use it due to fear or stool incontinence. Received Skelaxin in ED He has freq bouts of stool incontinence per neuro evaluations in the past Neurology consulted for MS flare -recommends Solu-Medrol 1 g IV x 3 days (day 3), then Continue taper of prednisone 80 mg daily for 2 days, 60 mg per day for 4 days, 40 mg a day for 4 days, 20 mg a day for 4 days, and then 10 mg for 4 days, and then discontinue. S/p brain, cervical spine, thoracic spine MRIs -no new lesions, appear the same as scans in 2016 Will need outpatient follow-up with neurology Patient reports marked improvement in left lower extremity weakness Follow up with neurology in 4 to 6 weeks History of DVT Continue Eliquis Hyperparathyroidism Chronic hypercalcemia Hypophosphatemia dx with primary hyperparathyroidism 2/2 to 12mm parathyroid adenoma in left parathracheal region inferior to the lower pole of L thyroid lobe back in 2019. Recommendation is for surgical removal and pt should follow up with ENT Dr. Tracey and endocrinology. Pt needs OP follow up Continue phosphorus supplement Constipation On MiraLAX and Colace twice daily Milk of magnesia x 1 dose today DVT ppx:eliquis Dispo: Improving, likely discharge home today with home health. Total Time Total Time Spent Total Time Spent (In Minutes): 35 minutes Discharge Plan Discharge Items Patient Disposition: Home - Home Health Services Reason For Visit: LLE WEAKNESS, MUSCLE SPASM Discharge Diagnosis: Muscle spasm of left lower extremity: Multiple sclerosis: Stool incontinence: Chronic deep vein thrombosis (DVT) of distal vein of left lower extremity: Hyperparathyroidism, depression who presents to ED secondary to increasing left leg pain, weakness and bowel incontinence x1 day. Ambulatory dysfunction Activity: Resume your previous activity Non-emergency contact: Primary Care Provider Call non-emergency contact if: you have any medication questions Follow-up/Referrals: Jabari Pemberton [Primary Care Provider] - 03/06/21 1:30 pm (APPT WITH LEONOR BENSON PA-C) Diet: Heart Healthy Addtl Attending Provider Instructions: Follow up with your primary care provider with Leonor Benson PA-C on 03/06/21 @ 1:30pm Follow up with neurology Dr. Faith or Sergey DANIELSON in 4 to 6 weeks Follow up with ENT Dr. Tracey and Endocrinology for the Parathyroid adenoma Continue physical and occupational therapy Fall precaution Continue taper of prednisone 80 mg daily for 2 days, 60 mg per day for 4 days, 40 mg a day for 4 days, 20 mg a day for 4 days, and then 10 mg for 4 days, and then discontinue. Pending Studies at Discharge: No Stand-Alone Forms: My [employer], Smoking Cessation Medications and DC Order Prescriptions: New baclofen 10 mg Tablet 10 mg PO BID 30 Days Qty: 60 RF: 0 prednisone 20 mg Tablet 20 mg PO UD Qty: 34 RF: 0 Continued furosemide 20 mg tablet 20 mg PO DAILY RF: 0 fluoxetine [Prozac] 10 mg capsule 10 mg PO QAM RF: 0 Eliquis 5 mg (74 tabs) tablets,dose pack 5 mg PO BID RF: 0 Discharge Orders: Discharge Order (Routine); Ordered 02/27/21 Ordered By: Janice De Leon Admission Data Admit Date/Time: 02/23/21 09:06 Attending Provider: Janice De Leon Admit Provider: Sreedhar Ayoub Primary Care Provider: Jabari Pemberton Other Providers: Sreedhar Ayoub ; Ricky Ruiz ; [facility],Referral Center ; [facility],Home Healthcare Other Interventions: Discharge Summary Assessment (RN) Last Done: 02/27/21 16:21
[2021-02-28] MEDS ORDERED: predniSONE 20 MG TAB PO SCH (09:00)
== END 2021-02-27 16:44 | disposition home health service (06) | DRG 59 ==
LOC: EDINP 09:01 → ED 09:01 → 3N 16:32 → SUATTDRO 02-23 09:06

== ENCOUNTER 2021-05-19 08:16 | Inpatient (IN) ==
[2021-05-19] MEDS ORDERED: SODIUM CHLORIDE 0.9% 500 ML IV SCH (08:30)
[2021-05-19] MEDS ORDERED: SODIUM CHLORIDE 0.9% 1000ML 1,000 ML IV SCH (08:30)
--- NOTE | 2021-05-19 08:35 | Emergency Department Note ---
Impression & Plan Generalized weakness, Multiple sclerosis, Stool incontinence ED Provider Note INFORMANT: Patient and EMS ED PROVIDER(S): Ricky Cuevas MD CHIEF COMPLAINT: Weakness PLAN: Disposition: Admitted Condition: Good Outpatient prescription management: none Referral: None MEDICAL DECISION MAKING: Patient presented to my department complaining of weakness and vomiting. He has history of MS. The patient was incontinent of stool. He had a similar visit about a month ago. The patient had an unremarkable ECG. His CBC, chemistries and troponin were negative. Alcohol level negative. The patient had a negative chest x-ray. Urinalysis negative. I did discuss case with Dr. Rachel herrera of neurology. We discussed the possibility of [facility] versus inpatient stay here. After discussion with case management the patient cannot [facility]. Neurology recommended 1 g of Solu-Medrol IV daily for 3 days secondary to the MS. [facility] The patient will be evaluated by the team in the ER and admitted for further management. IV Solu-Medrol first dose given in the ER. Triage Nursing notes reviewed and agree them. Vital Signs: reviewed and remarkable for no significant abnormalities Differential diagnosis: MS exacerbation, infection, dehydration, metabolic abnormality, hypo/hyperglycemia, electrolyte disturbance, anemia, hypoxia, cardiac sources, intracerebral event, toxicologic, neurologic, as well as other pathologies. Diagnostics interpreted by me: ECG: Twelve-lead ECG reveals normal sinus rhythm at 80 bpm. There is anterior Q waves present. When compared to 11 September 2020 the anterior Q waves is new. There is no ST elevation or depression. No PACs or PVCs. Cardiac Monitoring: Cardiac monitoring ordered by me: The patient was placed on continuous cardiac monitoring and observed. It revealed a normal sinus rhythm at 79 beats per minute without ectopy or evidence of dysrhythmia. Imaging studies: Chest x-ray. Findings: A chest x-ray was performed and revealed no pneumothorax, effusion, infiltrate, pulmonary edema, free air under the diaphragm, or wide mediastinum. Impression: No acute disease. HPI: The patient is a 45 year old male who presents to the Emergency Room with complaints of generalized weakness. This started few days ago and is persisting. Patient called EMS because he felt worse overnight. He has a history of MS. He notes chronic left leg pain and weakness which is unchanged. He has a history of DVT and is on Eliquis. EMS noted the patient had incontinence of stool. He was unable to clean himself up or care for himself due to the increased weakness and the ambulance was summoned. They did note the presence of multiple urinals by his bedside as well as several empty cans of beer. The patient also notes the following associated symptoms, vomiting x1 last night. Denies any flulike symptoms or Covid symptoms. Unimmunized. The patient has been given no medication prehospital for relieving factors. Current pain is rated as 4/10. Pt denies LOC, headache, fevers, chills, diaphoresis, visual changes, neck pain, chest pain, breathing difficulties, nausea, abdominal pain, back pain, melena, hematochezia, urinary symptoms, numbness, lymphadenopathy, rash, or other complaints. ROS: See above HPI for pertinent positives & negatives. A total of 10 systems reviewed and were otherwise negative. PAST MEDICAL HISTORY:See Below , multiple sclerosis PAST SURGICAL HISTORY:See Below, FAMILY HISTORY:See Below SOCIAL HISTORY:See Below, occasional alcohol HOME MEDICATIONS:See Below ALLERGIES:See Below VITALS:See Below PHYSICAL EXAMINATION: GENERAL: Awake, alert, generally weak-appearing, in no distress HENT: Normocephalic, atraumatic. Oropharynx unremarkable. EYES: Normal conjunctiva. Sclera non-icteric. NECK: Inspection normal. Non-tender. Supple. No nuchal rigidity. FROM. No masses. RESPIRATORY: Clear to auscultation. No wheezes. No rales. Normal respiratory effort. CARDIAC: Normal rate. Normal rhythm. No murmurs. No rubs. Extremities warm and well perfused. Pulses equal. No JVD. GI: Soft, non-distended. No tenderness to palpation. No rebound or guarding. No masses. RECTAL: Incontinence of brown stool. MUSCULOSKELETAL: Atraumatic. Chest examination reveals no tenderness. The back is symmetrical on inspection without obvious abnormality. There is no CVA tenderness to palpation. No joint edema. LOWER EXTREMITIES: Calves are equal size bilaterally and non-tender. No edema. No discoloration. NEURO: Normal sensorium. Patient has significant weakness of the left lower extremity and is unable to resist gravity but can move. 4 out of 5 strength in the upper and lower extremities otherwise. SKIN: No rash or jaundice noted. Ricky Cuevas MD Past Med/Surg History Medical History (Updated 05/19/21 @ 13:02 by Shelley Bunch PA-C) Chronic pain syndrome H/O poor personal hygiene Hypercalcemia Left leg pain Multiple sclerosis Obstructive uropathy 2/2 renal stone, caused RUBI, pt admitted for this and hypercalcemia 05/2018 Primary hyperparathyroidism Seizure disorder Many years ago may have had single episode, pt was never treated for this, no reoccurrence. Weakness Surgical History History of cystoscopy WITH STENT PLACEMENT 06/14/18 [facility] Family History Father Stroke Thyroid disorder Other Hypertension Kidney stones Social History Smoking Status: Never smoker Tobacco Type: Smokeless Tobacco (Dip or Chew) Cigarettes Per Day: 0; Second Hand Exposure: Yes; Hx Alcohol Use: Yes Alcohol type: beer Hx Substance Use: No Preferred Language: [place]i Communication Ability: Effective [employer] Required: No Beliefs That Will Affect Care: None marital status: Current Living Situation: Parent Current Living Situation Comment: brother and father at home current occupational status: disabled How many Children do You have: 2 Feels Safe at Home: Yes Assistive Devices: Wheelchair Allergies Allergies Allergy/AdvReac Type Severity Reaction Status Date / Time aspirin Allergy Severe airway Verified 05/19/21 09:00 edema; hives Home Meds Home Medications Medication Instructions Recorded Confirmed apixaban 5 mg (74 tabs) tablets in 5 mg PO BID 09/11/20 05/19/21 a dose pack (Eliquis) fluoxetine 10 mg capsule (Prozac) 10 mg PO QAM 09/11/20 05/19/21 furosemide 20 mg tablet 20 mg PO DAILY 11/02/20 05/19/21 Results & Data (ED) Vital Signs Vital Signs - 24 hr 05/19/21 08:16 05/19/21 08:28 05/19/21 08:43 Temperature 36.5 C Temperature Source Oral Pulse Rate 79 79 82 Pulse Rate from SpO2 Sensor 83 Pulse Rhythm Regular Regular Respiratory Rate 24 24 16 Respiratory Effort / Characteristics Non-Labored Respiratory Depth Normal Respiratory Pattern Regular Blood Pressure 133/60 Blood Pressure Mean 84 Pulse Oximetry 95 95 94 Oxygen Delivery Method Room Air Room Air Sepsis Recent Fever Within 48 Hours No Sepsis New/Unexplained Change in Mental Status No Sepsis Action Taken by Nursing No Action Required 05/19/21 09:00 05/19/21 09:30 05/19/21 10:00 Temperature Temperature Source Pulse Rate 74 77 77 Pulse Rate from SpO2 Sensor 74 78 78 Pulse Rhythm Respiratory Rate 29 H 17 18 Respiratory Effort / Characteristics Respiratory Depth Respiratory Pattern Blood Pressure 132/82 124/84 Blood Pressure Mean 98 97 Pulse Oximetry 95 97 96 Oxygen Delivery Method Sepsis Recent Fever Within 48 Hours Sepsis New/Unexplained Change in Mental Status Sepsis Action Taken by Nursing 05/19/21 11:00 05/19/21 11:30 05/19/21 12:00 Temperature Temperature Source Pulse Rate 95 H 85 97 H Pulse Rate from SpO2 Sensor Pulse Rhythm Respiratory Rate 18 17 21 Respiratory Effort / Characteristics Respiratory Depth Respiratory Pattern Blood Pressure 148/76 H 151/63 H Blood Pressure Mean 100 92 Pulse Oximetry Oxygen Delivery Method Sepsis Recent Fever Within 48 Hours Sepsis New/Unexplained Change in Mental Status Sepsis Action Taken by Nursing 05/19/21 12:30 05/19/21 12:52 Temperature Temperature Source Pulse Rate 78 87 Pulse Rate from SpO2 Sensor Pulse Rhythm Respiratory Rate 15 22 Respiratory Effort / Characteristics Respiratory Depth Respiratory Pattern Blood Pressure 131/78 Blood Pressure Mean 95 Pulse Oximetry 96 Oxygen Delivery Method Sepsis Recent Fever Within 48 Hours Sepsis New/Unexplained Change in Mental Status Sepsis Action Taken by Nursing Laboratory Data Result diagrams: 05/19/21 08:41 05/19/21 08:41 Lab Results 05/19/21 05/19/21 05/19/21 Range/Units 08:41 08:41 08:41 WBC 6.51 (4.8-10.8) K/uL RBC 4.98 (4.7-6.1) M/uL Hgb 16.0 (14.0-18.0) g/dL Hct 47.3 (42-52) % MCV 95.0 (80-100) fL MCH 32.1 (25-34) pg MCHC 33.8 (32-36) g/dL RDW Std Deviation 46.3 (36.4-46.3) fL RDW Coeff of Bret 13.4 (11.5-14.5) % Plt Count 257 (130-400) K/uL MPV 10.0 (7.4-10.4) fL Immature Gran % (Auto) 0.6 % Neut % (Auto) 71.3 % Lymph % (Auto) 14.9 % Summers % (Auto) 11.8 % Eos % (Auto) 1.1 % Baso % (Auto) 0.3 % Neut # (Auto) 4.64 (1.4-6.5) K/uL Lymph # (Auto) 0.97 L (1.2-3.4) K/uL Summers # (Auto) 0.77 H (0.11-0.59) K/uL Eos # (Auto) 0.07 (0-0.5) K/uL Baso # (Auto) 0.02 (0-0.2) K/uL Immature Gran # (Auto) 0.04 H (0.00-0.02) K/uL Sodium 138 (136-145) mmol/L Potassium 4.3 (3.5-5.1) mmol/L Chloride 110 H (98-107) mmol/L Carbon Dioxide 23 (21-32) mmol/L Anion Gap 5 (3-11) BUN 11 (6-23) mg/dl Creatinine 1.01 (0.6-1.4) mg/dl Est Cr Clr Drug Dosing 105.1 ml/min Est GFR ( Amer) 102.2 ml/min Est GFR (Non-Af Amer) 88.2 ml/min BUN/Creatinine Ratio 10.9 (10-20) Glucose 101 H (70-99(Fasting)) mg/dl Calcium 10.0 (8.5-10.1) mg/dl Magnesium 2.2 (1.7-2.4) mg/dl Total Bilirubin 0.5 (0.2-1.0) mg/dl AST 16 (13-39) U/L ALT 22 (7-52) U/L Alkaline Phosphatase 70 (34-104) U/L Total Protein 6.7 (6.0-8.3) gm/dl Albumin 4.0 (3.4-5.0) gm/dl Globulin 2.7 (2.5-4.0) gm/dl Albumin/Globulin Ratio 1.5 (0.9-2) TSH 2.831 (0.300-4.500) uIu/ml Urine Color Urine Appearance (Clear) Urine pH (4.5-7.5) Ur Specific [place] (1.000-1.030) Urine Protein (Negative) Urine Glucose (UA) (Negative) Urine Ketones (Negative) Urine Blood (Negative) Urine Nitrite (Negative) Urine Bilirubin (Negative) Urine Urobilinogen (Negative) Ur Leukocyte Esterase (Negative) Urine WBC (Auto) (0-5) /hpf Urine RBC (Auto) (0-4) /hpf U Hyaline Cast (Auto) (0-5) /lpf U Epithel Cells (Auto) (0-5) /lpf Urine Bacteria (Auto) (Negative) Ethyl Alcohol mg/dL (<10.0) mg/dl SARS-CoV-2, RNA, NAAT (NEGATIVE) 05/19/21 05/19/21 05/19/21 Range/Units 08:41 10:55 10:55 WBC (4.8-10.8) K/uL RBC (4.7-6.1) M/uL Hgb (14.0-18.0) g/dL Hct (42-52) % MCV (80-100) fL MCH (25-34) pg MCHC (32-36) g/dL RDW Std Deviation (36.4-46.3) fL RDW Coeff of Bret (11.5-14.5) % Plt Count (130-400) K/uL MPV (7.4-10.4) fL Immature Gran % (Auto) % Neut % (Auto) % Lymph % (Auto) % [place] % (Auto) % Eos % (Auto) % Baso % (Auto) % Neut # (Auto) (1.4-6.5) K/uL Lymph # (Auto) (1.2-3.4) K/uL [place]mers # (Auto) (0.11-0.59) K/uL Eos # (Auto) (0-0.5) K/uL Baso # (Auto) (0-0.2) K/uL Immature Gran # (Auto) (0.00-0.02) K/uL Sodium (136-145) mmol/L Potassium (3.5-5.1) mmol/L Chloride (98-107) mmol/L Carbon Dioxide (21-32) mmol/L Anion Gap (3-11) BUN (6-23) mg/dl Creatinine (0.6-1.4) mg/dl Est Cr Clr Drug Dosing ml/min Est GFR ( Amer) ml/min Est GFR (Non-Af Amer) ml/min BUN/Creatinine Ratio (10-20) Glucose (70-99(Fasting)) mg/dl Calcium (8.5-10.1) mg/dl Magnesium (1.7-2.4) mg/dl Total Bilirubin (0.2-1.0) mg/dl AST (13-39) U/L ALT (7-52) U/L Alkaline Phosphatase (34-104) U/L Total Protein (6.0-8.3) gm/dl Albumin (3.4-5.0) gm/dl Globulin (2.5-4.0) gm/dl Albumin/Globulin Ratio (0.9-2) TSH (0.300-4.500) uIu/ml Urine Color Yellow Urine Appearance Clear (Clear) Urine pH 6.0 (4.5-7.5) Ur Specific [place] 1.019 (1.000-1.030) Urine Protein Trace H (Negative) Urine Glucose (UA) Negative (Negative) Urine Ketones 1+ H (Negative) Urine Blood 3+ H (Negative) Urine Nitrite Negative (Negative) Urine Bilirubin Negative (Negative) Urine Urobilinogen Negative (Negative) Ur Leukocyte Esterase Negative (Negative) Urine WBC (Auto) 1-5 (0-5) /hpf Urine RBC (Auto) >30 H (0-4) /hpf U Hyaline Cast (Auto) 1-5 (0-5) /lpf U Epithel Cells (Auto) 5-10 H (0-5) /lpf Urine Bacteria (Auto) Negative (Negative) Ethyl Alcohol mg/dL < 10.0 (<10.0) mg/dl SARS-CoV-2, RNA, NAAT NEGATIVE (NEGATIVE) Administered Medications Sodium Chloride (Nss 1000ml) 1,000 mls @ 125 mls/hr IV .Q8H MANJINDER Stop: 05/19/21 16:29 Last Admin: 05/19/21 10:32 Dose: Not Given Documented by: [id number] Discontinued Medications Acetaminophen (Acetaminophen 500 Mg Tab) 1,000 mg PO NOW STA Stop: 05/19/21 09:14 Last Admin: 05/19/21 09:21 Dose: 1,000 mg Documented by: [id number] Sodium Chloride (Nss) 500 mls @ 999 mls/hr IV .Q31M MANJINDER Stop: 05/19/21 09:00 Last Infusion: 05/19/21 09:38 Dose: 0 mls/hr Documented by: [id number] Admin: 05/19/21 08:57 Dose: 999 mls/hr Documented by: [id number] Methylprednisolone 1,000 mg/ (Dextrose) 266 mls @ 266 mls/hr IV NOW STA Stop: 05/19/21 11:28 Last Infusion: 05/19/21 11:55 Dose: 0 mls/hr Documented by: [id number] Admin: 05/19/21 10:54 Dose: 266 mls/hr Documented by: [id number] Loperamide HCl (Loperamide Hcl 2 Mg Cap) 2 mg PO NOW STA Stop: 05/19/21 12:46 Last Admin: 05/19/21 13:00 Dose: 2 mg Documented by: [id number] Imaging Data Radiologist's Impression: Chest X-Ray 05/19/21 08:28 SINGLE VIEW CHEST CLINICAL HISTORY: Generalized weakness. FINDINGS: 2 AP, portable, upright chest radiographs are compared to study dated 02/14/2022. The cardiomediastinal silhouette is unremarkable. The lungs and ple ural spaces are clear. No pneumothorax is seen. The bony thorax is grossly intact. IMPRESSION: No active disease in the chest. ACT 112: Negative or not required by law. Electronically signed by: Eris Guallpa M.D. 05/19/2021 9:24 AM Discharge Plan Visit Data Chief Complaint: Weakness Stated Complaint: WEAKNESS EVAL ED Provider: Ricky Cuevas Discharge Problem: Generalized weakness, Multiple sclerosis, Stool incontinence Forms Stand Alone Forms: My [employer] Prescriptions Prescriptions: No Action furosemide 20 mg tablet 20 mg PO DAILY RF: 0 fluoxetine [Prozac] 10 mg capsule 10 mg PO QAM RF: 0 Eliquis 5 mg (74 tabs) tablets,dose pack 5 mg PO BID RF: 0 Referrals Referrals: Jabari Pemberton [Primary Care Provider] -
[2021-05-19 08:56] LABS: Basophils # (auto) 0.02 K/uL (0-0.2); Basophils % (auto) 0.3 %; Eosinophils # (auto) 0.07 K/uL (0-0.5); Eosinophils % (auto) 1.1 %; Hematocrit (blood only) 47.3 % (42-52); Immature Granulocytes # (auto) 0.04 K/uL (0.00-0.02); Immature Granulocytes % (auto) 0.6 %; Lymphocytes # (auto) 0.97 K/uL (1.2-3.4); Lymphocytes % (auto) 14.9 %; Mean Corpuscular Hemoglobin 32.1 pg (25-34); Mean Corpuscular Hgb Conc 33.8 g/dL (32-36); Monocytes # (auto) 0.77 K/uL (0.11-0.59); Monocytes % (auto) 11.8 %; Neutrophils # (auto) 4.64 K/uL (1.4-6.5); Neutrophils % (auto) 71.3 %; Platelet Count 257 K/uL (130-400); RDW Coefficient of Variation 13.4 % (11.5-14.5); RDW Standard Deviation 46.3 fL (36.4-46.3); Red Blood Count 4.98 M/uL (4.7-6.1); White Blood Count 6.51 K/uL (4.8-10.8)
[2021-05-19] MEDS ORDERED: ACETAMINOPHEN 500 MG TAB PO STA (09:13)
[2021-05-19 09:15] LABS: Albumin Globulin Ratio 1.5 (0.9-2); BUN Creatinine Ratio 10.9 (10-20); Bilirubin,Total 0.5 mg/dl (0.2-1.0); Creatinine Clr Calc Pharmacy 105.1 ml/min; Est GFR (African American) 102.2 ml/min; Est GFR (Non-African American) 88.2 ml/min; Globulin 2.7 gm/dl (2.5-4.0); Magnesium 2.2 mg/dl (1.7-2.4); Potassium 4.3 mmol/L (3.5-5.1); Total Protein 6.7 gm/dl (6.0-8.3)
--- NOTE | 2021-05-19 09:27 | XRay Report ---
SINGLE VIEW CHEST CLINICAL HISTORY: Generalized weakness. FINDINGS: 2 AP, portable, upright chest radiographs are compared to study dated 02/14/2022. The cardi omediastinal silhouette is unremarkable. The lungs and pleural spaces are clear. No pneumothorax is s een. The bony thorax is grossly intact. IMPRESSION: No active disease in the chest. ACT 112: Negative or not required by law. Electronically signed by: Eris Guallpa M.D. 05/19/2021 9:24 AM
[2021-05-19] MEDS ORDERED: methylPREDNISolone 1,000 MG in DEXTROSE 5% 250 ML IV STA (10:29)
--- NOTE | 2021-05-19 10:33 | Electrocardiogram Report ---
Test Reason : Blood Pressure : / mmHG Vent. Rate : 080 BPM Atrial Rate : 080 BPM P-R Int : 158 ms QRS Dur : 090 ms QT Int : 378 ms P-R-T Axes : 045 022 048 degrees QTc Int : 435 ms Normal sinus rhythm Incomplete right bundle branch block Abnormal ECG When compared with ECG of 11-SEP-2020 05:46, No significant change was found Confirmed by Law Recinos ([id number]) on 05/19/2021 10:32:39 AM Referred By: REFERRED SELF Confirmed By:Camilo Recinos
[2021-05-19 11:06] LABS: Appearance Urine Clear (Clear); Bacteria Urine Automated Negative (Negative); Bilirubin Urine Negative (Negative); Blood Urine 3+ (Negative); Color Urine Yellow; Glucose Urine UA Negative (Negative); Ketones Urine 1+ (Negative); Leukocyte Esterase Urine Negative (Negative); Nitrite Urine Negative (Negative); Protein Urine Trace (Negative); RBC Urine Automated >30 /hpf (0-4); Specific Gravity Urine 1.019 (1.000-1.030); Urobilinogen Urine Negative (Negative)
--- NOTE | 2021-05-19 12:12 | History & Physical Report ---
Date of Service May 19, 2021 Assessment & Plan (1) Generalized weakness: (2) Multiple sclerosis: Plan: -Admit to [facility] -Neurology consulted, Dr. Olivares -Administered 1 g Solu-Medrol IV in the ER, continue daily x3 days -PT/OT consults -Follow blood cultures, UA, urine culture for infectious work-up -No leukocytosis, afebrile -Negative Covid on admission -Case management to assist with home health arrangements, patient possibly needs PT/OT inpatient therapy versus SNF. (3) Diarrhea: Plan: -As per HPI, long standing issue -Check C. difficile and stools cultures for history of diarrhea and rule out infection versus acute gastritis -Received 1.5L NSS in the ER, loperamide, may continue antidiarrheal as needed -Likely adding to increased dehydration as well -Consider addition of a probiotic - Pt reports taking Lasix daily but was unsure of the dose- I called his pharmacy and discussed with them, he last filled this Rx in Dec 2020 for a 30 day supply for lasix 20 mg daily. Pt reports that "I think I have one pill left". Unknown if the pt is reliable regarding medication compliance. (4) Chronic deep vein thrombosis (DVT) of distal vein of left lower extremity: Plan: -History of such, continue Eliquis 5 mg twice daily -SCDs, Teds -Primarily wheelchair-bound due to MS, patient at baseline is able to transfer self from bed to wheelchair to chair, etc. however was unable to do so today due to weakness as described above. (5) Primary hyperparathyroidism: Plan: -TSH 2.831 DVT PPx: - teds, scds, Lovenox subcu CODE: Full code Dispo: From home, likely to remain in the hospital x 1-2 days. PT/OT evals, likely needs therapy and at minimum home health. History of Present Illness Chief Complaint: Weakness Primary Care Provider: Jabari Salinasoe This is a 45 yo M with PMHx of MS, chronic DVT of the LLE on eliquis, depression, obstructive uropathy, primary hyperparathyroidism and seizure disorder who presents to the ER with acute worsening weakness over the past 3 days. He notes that he has had diarrhea 15 times daily x 3 days which is watery, denies blood or dark tarry stools, abdominal pain. He admits to 2 episodes of nausea and vomiting, at bedside he has lunch delivered and is tolerating it without difficulty. Diarrhea is a longstanding issue for him, and attempts to limit food that make it worse, like high fiber. This morning he was unable to get himself transferred from bed to wheelchair due to weakness, resulting in inability to toilet himself today. He has had poor PO intake in the past 3 days because of not feeling well. He denies consumption of raw, undercooked, spoiled food, or bad water to his knowledge. Pt admits to having chronic difficulty with emptying his bladder, but denies dysuria or hematuria, and is trying to provide a urine sample to r/o infection. He denies fever, chest pain, sob, body aches or pains. He lives at home with his parent and reports being exposed to second hand smoke, however none of his household contacts have displayed infectious symptoms. Pt reports having home health scheduled to come to his house on this week, but has not been actively participating in therapy. Pt notes he is able to move his left lower extremity but not the right chronically. He feels like he is having more difficulty at home. He has not been on any medication for MS in a long time, at least 1 year. Previously has followed with neurology as an outpatient. He does not like to take extra medications because it makes him f eel "foggy". He is taking eliquis routinely for chronic LLE dvt and has been on this for about 1 year. Pt states he is taking lasix 20 mg daily for swelling. Allergies Allergy/AdvReac Type Severity Reaction Status Date / Time aspirin Allergy Severe airway Verified 05/19/21 09:00 edema; hives Home Medications Medication Instructions Recorded Confirmed Type apixaban 5 mg (74 tabs) tablets in 5 mg PO BID 09/11/20 05/19/21 History a dose pack (Eliquis) fluoxetine 10 mg capsule (Prozac) 10 mg PO QAM 09/11/20 05/19/21 History furosemide 20 mg tablet 20 mg PO DAILY 11/02/20 05/19/21 History Past Med/Surg History Medical History (Updated 05/19/21 @ 13:02 by Shelley Bunch PA-C) Chronic pain syndrome H/O poor personal hygiene Hypercalcemia Left leg pain Multiple sclerosis Obstructive uropathy 2/2 renal stone, caused RUBI, pt admitted for this and hypercalcemia 05/2018 Primary hyperparathyroidism Seizure disorder Many years ago may have had single episode, pt was never treated for this, no reoccurrence. Weakness Surgical History History of cystoscopy WITH STENT PLACEMENT 06/14/18 [facility] Family History Father Stroke Thyroid disorder Other Hypertension Kidney stones Social History Smoking Status: Never smoker Tobacco Type: Smokeless Tobacco (Dip or Chew) Cigarettes Per Day: 0; Second Hand Exposure: No; Do You Dip or Chew Tobacco: No; Tobacco Cessation Education Requested by Patient: No Hx Alcohol Use: Yes Alcohol type: beer Hx Substance Use: No Preferred Language: Yoruba Communication Ability: Effective Servicing Rep Required: No Beliefs That Will Affect Care: None marital status: Current Living Situation: Parent Current Living Situation Comment: Patient states he must do all of his own self care current occupational status: disabled How many Children do You have: 2 Other Information That Helps Us Care for You: No Feels Safe at Home: Yes Safety Concerns: Feels Safe At This Time Assistive Devices: Brace/Splint/Immobilizer and Wheelchair Assistive Devices Comment: Brace with patient/wheelchair at home Review of Systems Review of Systems: Constitutional: No fever, sweats or chills, + generalized weakness Eyes: No diplopia, no worsening or blurred vision ENT: normal hearing, no trouble swallowing Respiratory: No cough, sputum, dyspnea at rest or on exertion Cardiovascular: No chest pain, tightness or palpitations Abdomen: No pain, nausea, vomiting, or constipation + diarrhea as per HPI x 15 episodes daily Musculoskeletal: No joint pain, calf pain, swelling Neurologic: + generalized weakness, at baseline is unable to move the left leg without assistance, wheelchair bound Psychiatric:+ anxiety and depression on prozac Skin: No rash or itch Physical Exam Physical Exam: General: awake, alert, no apparent distress Head: Normocephalic, atraumatic ENT: PERRL, EOMI, no pharyngeal exudate, mucous membranes moist Chest: Clear to auscultation, on room air, no adventitious breath sounds Cardiac: Regular rate and rhythm, no murmur, no JVD, normal peripheral pulses, good capillary refill Abdominal: NABS x 4 quadrants, soft, nondistended, nontender to palpation, no rebound or guarding Extremities: LE atrophy, no peripheral edema or erythema, calfs nontender to palpation Psych: Sarcastic affect, Normal mood, eye contact is somewhat poor. Neuro: AAO x 3, strength rated 0/5 in the LLE, strength 3/5 in RLE, + spasticity of LE, Upper extremities with full strength and without motor deficits, speech is clear, no peripheral sensory deficits Results & Data Results & Data ([facility]) Vital Signs (Past 12 Hours) Vital Signs Temp Pulse Resp BP Pulse Ox 05/19/21 11:00 95 H 18 148/76 H 05/19/21 10:00 77 18 124/84 96 05/19/21 09:30 77 17 132/82 97 05/19/21 09:00 74 29 H 95 05/19/21 08:43 82 16 94 05/19/21 08:28 79 24 95 05/19/21 08:16 36.5 C 79 24 133/60 95 Laboratory Results 05/19/21 05/19/21 05/19/21 10:55 10:55 08:41 WBC RBC Hgb Hct MCV MCH MCHC RDW Std Deviation RDW Coeff of Bret Plt Count MPV Immature Gran % (Auto) Neut % (Auto) Lymph % (Auto) Vilas % (Auto) Eos % (Auto) Baso % (Auto) Neut # (Auto) Lymph # (Auto) Vilas # (Auto) Eos # (Auto) Baso # (Auto) Immature Gran # (Auto) Sodium Potassium Chloride Carbon Dioxide Anion Gap BUN Creatinine Est Cr Clr Drug Dosing Est GFR ( Amer) Est GFR (Non-Af Amer) BUN/Creatinine Ratio Glucose Calcium Magnesium Total Bilirubin AST ALT Alkaline Phosphatase Total Protein Albumin Globulin Albumin/Globulin Ratio TSH Urine Color Yellow Urine Appearance Clear Urine pH 6.0 Ur Specific Keavy 1.019 Urine Protein Trace H Urine Glucose (UA) Negative Urine Ketones 1+ H Urine Blood 3+ H Urine Nitrite Negative Urine Bilirubin Negative Urine Urobilinogen Negative Ur Leukocyte Esterase Negative Urine WBC (Auto) 1-5 Urine RBC (Auto) >30 H U Hyaline Cast (Auto) 1-5 U Epithel Cells (Auto) 5-10 H Urine Bacteria (Auto) Negative Ethyl Alcohol mg/dL < 10.0 SARS-CoV-2, RNA, NAAT NEGATIVE 05/19/21 05/19/21 05/19/21 08:41 08:41 08:41 WBC 6.51 RBC 4.98 Hgb 16.0 Hct 47.3 MCV 95.0 MCH 32.1 MCHC 33.8 RDW Std Deviation 46.3 RDW Coeff of Bret 13.4 Plt Count 257 MPV 10.0 Immature Gran % (Auto) 0.6 Neut % (Auto) 71.3 Lymph % (Auto) 14.9 Vilas % (Auto) 11.8 Eos % (Auto) 1.1 Baso % (Auto) 0.3 Neut # (Auto) 4.64 Lymph # (Auto) 0.97 L Vilas # (Auto) 0.77 H Eos # (Auto) 0.07 Baso # (Auto) 0.02 Immature Gran # (Auto) 0.04 H Sodium 138 Potassium 4.3 Chloride 110 H Carbon Dioxide 23 Anion Gap 5 BUN 11 Creatinine 1.01 Est Cr Clr Drug Dosing 105.1 Est GFR ( Amer) 102.2 Est GFR (Non-Af Amer) 88.2 BUN/Creatinine Ratio 10.9 Glucose 101 H Calcium 10.0 Magnesium 2.2 Total Bilirubin 0.5 AST 16 ALT 22 Alkaline Phosphatase 70 Total Protein 6.7 Albumin 4.0 Globulin 2.7 Albumin/Globulin Ratio 1.5 TSH 2.831 Urine Color Urine Appearance Urine pH Ur Specific Keavy Urine Protein Urine Glucose (UA) Urine Ketones Urine Blood Urine Nitrite Urine Bilirubin Urine Urobilinogen Ur Leukocyte Esterase Urine WBC (Auto) Urine RBC (Auto) U Hyaline Cast (Auto) U Epithel Cells (Auto) Urine Bacteria (Auto) Ethyl Alcohol mg/dL SARS-CoV-2, RNA, NAAT Diagnostic Findings Chest X-Ray 05/19/21 08:28 SINGLE VIEW CHEST CLINICAL HISTORY: Generalized weakness. FINDINGS: 2 AP, portable, upright chest radiographs are compared to study dated 02/14/2022. The cardiomediastinal silhouette is unremarkable. The lungs and pleural spaces are clear. No pneumothorax is seen. The bony thorax is grossly intact. IMPRESSION: No active disease in the chest. ACT 112: Negative or not required by law. Electronically signed by: Eris Guallpa M.D. 05/19/2021 9:24 AM ECG Additional Comments: Test Reason : Blood Pressure : / mmHG Vent. Rate : 080 BPM Atrial Rate : 080 BPM P-R Int : 158 ms QRS Dur : 090 ms QT Int : 378 ms P-R-T Axes : 045 022 048 degrees QTc Int : 435 ms Normal sinus rhythm Incomplete right bundle branch block Abnormal ECG When compared with ECG of 11-SEP-2020 05:46, No significant change was found Code Status & VTE Plan Code Status Full code, discussed with the patient at bedside VTE Prophylaxis Plan VTE Prophylaxis will be ordered: Yes Supervising Physician Co-Signing Physician Notes I have seen and examined the patient and have discussed the case with the provider above. I agree with the assessment and plan as stated. See attending addendum note written 05/19. DO Naveed
[2021-05-19] MEDS ORDERED: LOPERAMIDE HCL 2 MG CAP PO STA (12:45)
--- NOTE | 2021-05-19 12:59 | Communication Note ---
Date of Service: May 19, 2021 45 yo M with secondary progressive MS, followed by [facility] presents with worsening of generalized weakness for two days. This began yesterday and was associated wtih an increase in watery diarrhea and bowel incontinence as well as two episodes of vomiting. He is currently able to tolerate food today and denies any nausea. He has had long-standing issues with stool incontinence and diarrhea, and reports not trying agents such and fiber, Imodium or elimination diets to see if this will help. He was admitted at the end of 2020 for the same issue and was started on high dose steroids followed by a quick taper, and reports feeling better. Specifically, he is unable to ambulate at all but can independently transfer, describing full upper body strength. Today, he feels generally weak all over, including his arms, and cannot perform those functions. He has longstanding spasticity and was on Valium last admission, but reports not using this since discharge. He also reports not using Baclofen, possibly because he forgot about this. He is open to using this and also to getting back on Ocrevus which was stopped a few years ago. He denies any pain today. He has significant rigidity in his left lower leg, and the examiner is unable to bed the leg even passively. He cannot perform hip flexion, but can produce some hip extension. He cannot dorsi or plantarflex the left foot. Sensation is intact in the left leg, but is decreased compared with the right. Exam is otherwise normal, he is WNWD, mentating clearly, with a normal heart and lung exam. He examines as euvolemic. Labwork reveals a normal CBC, BMP and TSH. He has microscopic blood in urine specimen without evidence of infection. CXR is clear. EKG reveals sinus rhythm with a normal rate and incomplete RBBB. There is no evidence of active ischemia. His last MRI series was in Jan including MR brain, c-spine and t- spine. New lesions were seen on the c-spine imaging at that time. He did not followup with primary care or neurology since last discharge. Overall, his weakness and increased diarrhea may signal another flare of MS. Neurology has been contacted and he has been started on solumedrol 1gram IV x 3 days, which will likely be followed by another quick taper. Defer to neurology for discussion of restarted Ocrevus for management and Baclofen for help with rigidity. He has a h/o no-show and noncompliance in the past, so it would be helpful to have this plan figured out prior to discharge if at all possible. The patient lives alone, or with his father, "but basically on my own", and has little help with IADLs such as laundry, cooking, bathing, etc. He has refused SNF in the past, and he is young and likely to refuse this again. Would appreciate case management looking into additional help for this individual with needs. Patient states PT/OT have come before, but there may be additional support he could afford to help him with chores around the house, etc. Naveed, DO
[2021-05-19] MEDS ORDERED: ONDANSETRON INJ 2 MG/ML 2 ML VIAL IV PRN (14:10)
[2021-05-19] MEDS ORDERED: LOPERAMIDE HCL 2 MG CAP PO PRN (14:10)
[2021-05-19] MEDS: APIXABAN 5 MG TABLET PO SCH (20:08)
[2021-05-19] MEDS ORDERED: NON-FORMULARY MEDICATION (Apixaban [Eliquis] 5 mg (74 tabs) tablets,dose pack) PO SCH (21:00)
[2021-05-19] MEDS: ACETAMINOPHEN 325 MG TAB PO PRN (23:01)
[2021-05-20] MEDS: traMADol HCL 50 MG TABLET PO PRN ×2 (05:37→11:22)
[2021-05-20 07:14] LABS: Hematocrit (blood only) 45.1 % (42-52); Hemoglobin 15.5 g/dL (14.0-18.0); Mean Corpuscular Hgb Conc 34.4 g/dL (32-36); Mean Platelet Volume 10.2 fL (7.4-10.4); Platelet Count 299 K/uL (130-400); RDW Coefficient of Variation 13.2 % (11.5-14.5); RDW Standard Deviation 45.3 fL (36.4-46.3); Red Blood Count 4.85 M/uL (4.7-6.1)
[2021-05-20 07:44] LABS: Alanine Aminotransferase 18 U/L (7-52); Albumin Globulin Ratio 1.4 (0.9-2); Alkaline Phosphatase 64 U/L (34-104); Anion Gap 7 (3-11); BUN Creatinine Ratio 13.5 (10-20); Bilirubin,Total 0.4 mg/dl (0.2-1.0); Blood Urea Nitrogen 15 mg/dl (6-23); Calcium 9.9 mg/dl (8.5-10.1); Carbon Dioxide 19 mmol/L (21-32); Chloride 109 mmol/L (98-107); Creatinine Clr Calc Pharmacy 95.7 ml/min; Est GFR (African American) 91.2 ml/min; Est GFR (Non-African American) 78.7 ml/min; Globulin 2.8 gm/dl (2.5-4.0); Glucose 154 mg/dl (70-99(Fasting)); Sodium 135 mmol/L (136-145); Total Protein 6.8 gm/dl (6.0-8.3)
[2021-05-20] MEDS: ACETAMINOPHEN 325 MG TAB PO PRN ×2 (07:46→21:33)
[2021-05-20] MEDS ORDERED: ENOXAPARIN INJ 40 MG/0.4 ML SYR SQ SCH (09:00)
[2021-05-20] MEDS ORDERED: FUROSEMIDE 20 MG TAB PO SCH (09:00)
[2021-05-20] MEDS: APIXABAN 5 MG TABLET PO SCH ×2 (09:38→21:33)
[2021-05-20] MEDS: FLUoxetine HCL 10 MG CAP PO SCH (09:38)
[2021-05-20] MEDS: methylPREDNISolone 1,000 MG in DEXTROSE 5% 250 ML IV SCH (09:39)
[2021-05-20] MEDS: BACLOFEN 10 MG TAB PO SCH ×2 (13:14→21:33)
--- NOTE | 2021-05-20 14:04 | Neurology Consultation ---
Date of Consultation May 20, 2021 Assessment & Plan (1) Multiple sclerosis: 1. IV steroids x 3 days then 80 mg x 2 days, 60 mg x 3 days, 40 mg x 3 days, 30 mg x 3 days, 20 mg x 3 days, 10 mg x 3 days then stop 2. will refer to Dr Morgan for evaluation for start of Ocrevus 3. continue to follow with PCP as outpatient and management of DVT 4. home health for more help at home - has an evaluation ok to discharge once IV steroid x 3 days. and then taper at discharge as above (2) DVT (deep venous thrombosis): Supervising Physician Co-Signing Physician Notes I have seen and discussed above patient with Dr Rachel Olivares, neurology. Patient seen and examined patient is well-known to our service. He is marginally compensated in terms of his secondarily progressive multiple sclerosis. He has episodes of increased fecal incontinence and generalized weakness and when he cannot get up to help himself at home he calls an ambulance. He felt weaker for about 3 days prior to this admission without any infectious symptoms. Left leg felt stiffer and he was generally weaker. He is feeling improved today on Solu-Medrol. His last imaging in January 2021 showed a stable brain. Increased number of cervical plaques but none enhancing. Unchanged thoracic plaques nonenhancing Exam he is awake and alert speech is unremarkable mild flattening the left nasolabial fold upper extremity strength is symmetric right lower extremity about 4 left lower trace with marked increase in tone Impression probable pseudoflare of multiple sclerosis no obvious infection identified. This patient is very marginally compensated and I believe if he has a minor change he is no longer able to care for his activities of daily living. He does not rely on his father who lives in the same home to help him so when the situations arrive he calls an ambulance. No objection to 3 days of IV steroids followed by oral steroids. He should be seen as an outpatient by Dr. Terra Morgan to see if he should resume OCREVUSwhich I believe he stopped due to inconvenience/lack of regular follow-up I have no objection to the use of baclofen for spasticity though it can in decreasing spasticity make the patient think there feel they are weaker. This patient should not be discharged before he has reliable home health care on a daily basis. Another option would be personal-care. Rachel Olivares MD History of Present Illness Reason for Consultation: MS flare Requesting Physician: Sreedhar Ayoub MD Attending Physician: Sreedhar Ayoub MD History of Present Illness Mazin is a 45 year old male with PMH- MS, chronic DVT of the LLE on eliquis, depression, obstructive uropathy, primary hyperparathyroidism and seizure disorder who presents to the ER with acute worsening weakness over the past 3 days. He has had diarrhea 15 times daily x 3 days which is watery, denies blood or dark tarry stools, abdominal pain. He admits to 2 episodes of nausea and vomiting, at bedside he has lunch delivered and is tolerating it without difficulty. Diarrhea is a longstanding issue for him, and attempts to limit food that make it worse, like high fiber. This morning he was unable to get himself transferred from bed to wheelchair due to weakness, resulting in inability to toilet himself today. He has had poor PO intake in the past 3 days because of not feeling well.He has chronic difficulty with emptying his bladder, but denies dysuria or hematuria, and is trying to provide a urine sample to r/o infection.He lives at home with his father and reports being exposed to second hand smoke, however none of his household contacts have displayed infectious symptoms. Home health was scheduled to come to his house on this week, but has not been actively participating in therapy. He is able to move his left lower extremity but not the right chronically. He feels like he is having more difficulty at home. He has not been on any medication for MS in a long time, at least 1 year. He does not like to take extra medications because it makes him feel "foggy". He is taking eliquis routinely for chronic LLE dvt and has been on this for about 1 year. He is taking lasix 20 mg daily for swelling. He has an appointment for additional help at home. He is feeling better now with the steroids. he is also receiving Ultram in the hospital for his LE pain which he feels helps alot. denies CP, SOB, abdominal swallowing issue. Allergies Allergy/AdvReac Type Severity Reaction Status Date / Time aspirin Allergy Severe airway Verified 05/19/21 09:00 edema; hives Home Medications Medication Instructions Recorded Confirmed Type apixaban 5 mg (74 tabs) tablets in 5 mg PO BID 09/11/20 05/19/21 History a dose pack (Eliquis) fluoxetine 10 mg capsule (Prozac) 10 mg PO QAM 09/11/20 05/19/21 History furosemide 20 mg tablet 20 mg PO DAILY 11/02/20 05/19/21 History Patient History Medical History (Updated 05/19/21 @ 13:02 by Shelley Bunch PA-C) Chronic pain syndrome H/O poor personal hygiene Hypercalcemia Left leg pain Multiple sclerosis Obstructive uropathy 2/ renal stone, caused RUBI, pt admitted for this and hypercalcemia 05/2018 Primary hyperparathyroidism Seizure disorder Many years ago may have had single episode, pt was never treated for this, no reoccurrence. 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: No Beliefs That Will Affect Care: None marital status: Current Living Situation: Parent Current Living Situation Comment: Patient states he must do all of his own self care current occupational status: disabled How many Children do You have: 2 Other Information That Helps Us Care for You: No Feels Safe at Home: Yes Safety Concerns: Feels Safe At This Time Assistive Devices: Brace/Splint/Immobilizer and Wheelchair Assistive Devices Comment: Brace with patient/wheelchair at home Review of Systems Review of Systems: All systems reviewed & are unremarkable except as noted in HPI & below Physical Exam Physical Exam: Physical Exam: Constitutional: appearance nourished, healthy and normal Ears, Nose, Mouth and Throat: mucous membranes moist, no injection and skin normal, eyes normal Cardiovascular: normal S-1 and S-2 and regular rate and rhythm Respiratory: clear to auscultation (CTA) and no rales, ronchi or wheeze Musculoskeletal: no peripheral edema Skin: no stigmata of neurocutaneous disease noted and normal and intact Eyes: extraocular muscles intact (EOMI) and pupils equal, round and reactive to light (PERRL) NEUROLOGIC EXAMINATION: Mental status: Alert and interactive Oriented to full date and location Oriented to person Speech fluent with no evidence of aphasia Cranial Nerves smile eye brow raise symmetric Reflexes: Deep tendon reflexes are brisk. up going toes bilaterally Sensory: light and cool touch diminished on the left UE/LE Coordination: finger to nose left dysmetric, left shoulder limits movement Gait/Stance: Posture lying in bed Motor: unable to test Strength: hand supervisor harvesting biceps triceps right 5/5 left 4/5, hip flex 5/5 right left 4/5 left very spastic Results & Data ([facility]) Vital Signs (Past 12 Hours) Vital Signs Temp Pulse Resp BP Pulse Ox 05/20/21 07:37 36.6 C 80 16 141/88 H 95 Laboratory Results Abnormal lab results 05/20/21 05/20/21 Range/Units 06:48 06:48 WBC 14.10 H (4.8-10.8) K/uL Sodium 135 L (136-145) mmol/L Chloride 109 H (98-107) mmol/L Carbon Dioxide 19 L (21-32) mmol/L Glucose 154 H (70-99(Fasting)) mg/dl Diagnostic Findings CXR-No active disease in the chest. (1) DVT (deep venous thrombosis) Affected thrombotic vein of extremity: unspecified vein of extremity Chronicity: chronic DVT location: lower extremity Laterality: left Qualified Code(s): I82.502 - Chronic embolism and thrombosis of unspecified deep veins of left lower extremity
--- NOTE | 2021-05-20 14:57 | Hospitalist Progress Note ---
Date of Service May 20, 2021 Assessment & Plan (1) Generalized weakness: (2) Multiple sclerosis: Plan: MS Flare up no signs of infection at this time diarrhea has resolved on Solumedrol 1g IV daily #2 PT/OT eval Neurologist consulted (3) Diarrhea: Plan: resolved stool studies not collected continue to monitor (4) Chronic deep vein thrombosis (DVT) of distal vein of left lower extremity: Plan: continue Eliquis 5 mg twice daily -SCDs, Teds -Primarily wheelchair-bound due to MS, patient at baseline is able to transfer self from bed to wheelchair to chair, etc. however was unable to do so today due to weakness as described above. (5) Primary hyperparathyroidism: Plan: -TSH 2.831 DVT PPx: - teds, scds, on Eliquis CODE: Full code Dispo: pending may need Acute Rehab Admission and Anticipated Discharge Date Admission Date: May 19, 2021 Subjective ff up for MS flare up, etc seen resting in bed, comfortable states he feels ok overall minimal improvement of L leg weakness no diarrhea no chest pain, dyspnea, palpitations, dizziness no other symptoms Review of Systems Review of Systems: all noted and negative except for above Physical Exam Physical Exam: General- oriented x 3, not in distress, speaks in sentences with no effort or accessory muscle use Head- atraumatic Eyes- PERRL, EOMI, anicteric ENT- oropharynx clear Neck- supple, no JVD, no adenopathy, no thyromegaly; carotids +2/2, no bruits appreciated Lungs- clear to auscultation bilaterally, no rales/wheezes Heart- normal rate, regular rhythm; no murmur, no gallop, no rub appreciated Abdomen- normal bowel sounds, nondistended, soft, nontender, no masses or hepatosplenomegaly Extremities- no pretibial edema, no calf tenderness; peripheral pulses intact Neuro- alert, oriented x 3; CN 2-12 grossly intact; motor 5/5 bilaterally right side, 1/5 on the left side;sensation 100% R side, 50% on the left; no other gross focal neurologic deficits Skin- warm & dry Results & Data Results & Data ([facility]) Vital Signs (Past 12 Hours) Vital Signs Temp Pulse Resp BP Pulse Ox 05/20/21 14:21 36.6 C 95 H 16 153/84 H 95 05/20/21 07:37 36.6 C 80 16 141/88 H 95 all noted and reviewed including below
[2021-05-21] MEDS: FLUoxetine HCL 10 MG CAP PO SCH (09:16)
[2021-05-21] MEDS: BACLOFEN 10 MG TAB PO SCH ×2 (09:17→21:53)
[2021-05-21] MEDS: APIXABAN 5 MG TABLET PO SCH ×2 (09:17→21:58)
[2021-05-21] MEDS: methylPREDNISolone 1,000 MG in DEXTROSE 5% 250 ML IV SCH (09:18)
[2021-05-21] MEDS: traMADol HCL 50 MG TABLET PO PRN ×2 (09:33→21:52)
--- NOTE | 2021-05-21 12:50 | Neurology Progress Note ---
Date of Service May 21, 2021 Assessment & Plan (1) Multiple sclerosis: Plan: 1. IV steroids x 3 days then 80 mg x 2 days, 60 mg x 3 days, 40 mg x 3 days, 30 mg x 3 days, 20 mg x 3 days, 10 mg x 3 days then stop 2. will refer to Dr Morgan (MS specialist) for evaluation to restart of Ocrevus 3. continue to follow with PCP as outpatient and management of DVT 4. home health for more help at home - has an evaluation ok to discharge once IV steroid x 3 days. and then taper at discharge as above and home health is in place. (2) DVT (deep venous thrombosis): Plan: 1. continue Eliquis 5 mg BID Admission and Anticipated Discharge Date Admission Date: May 19, 2021 Supervising Physician Co-Signing Physician Notes I have seen and discussed above patient with Dr Rachel Olivares, neurology. pt seen and examined. notes less weakness and somewhat improved lle spasticity. exam reveals lle 2+ with increased tone imp sec progressive ms. increase baclofen to 10 mg tid. pt interested in restarting Ocrevus which was stopped mult years ago due to social issues. pt needs to see MS neurology Dr. Morgan as outpt. will sign off. MD Tony Oscar Retana is a 45 year old male with PMH- MS, chronic DVT of the LLE on eliquis, depression, obstructive uropathy, primary hyperparathyroidism and seizure disorder who presents to the ER with acute worsening weakness over the past 3 days. He has had diarrhea 15 times daily x 3 days which is watery, denies blood or dark tarry stools, abdominal pain. He admits to 2 episodes of nausea and vomiting, at bedside he has lunch delivered and is tolerating it without difficulty. Diarrhea is a longstanding issue for him, and attempts to limit food that make it worse, like high fiber. This morning he was unable to get himself transferred from bed to wheelchair due to weakness, resulting in inability to toilet himself today. He has had poor PO intake in the past 3 days because of not feeling well.He has chronic difficulty with emptying his bladder, but denies dysuria or hematuria, and is trying to provide a urine sample to r/o infection.He lives at home with his father and reports being exposed to second hand smoke, however none of his household contacts have displayed infectious symptoms. Home health was scheduled to come to his house on this week, but has not been actively participating in therapy. He is able to move his left lower extremity but not the right chronically. He feels like he is having more difficulty at home. He has not been on any medication for MS in a long time, at least 1 year. He does not like to take extra medications because it makes him feel "foggy". He is taking eliquis routinely for chronic LLE dvt and has been on this for about 1 year. He is taking lasix 20 mg daily for swelling. He has an appointment for additional help at home. He is feeling better now with the steroids. he is also receiving Ultram in the hospital for his LE pain which he feels helps alot. He feels his left leg is doing better. denies CP, SOB, abdominal swallowing issue. Review of Systems Review of Systems: All systems reviewed & are unremarkable except as noted in HPI & below Physical Exam Physical Exam: Physical Exam: Constitutional: appearance nourished, healthy and normal Ears, Nose, Mouth and Throat: mucous membranes moist, no injection and skin normal, eyes normal Cardiovascular: normal S-1 and S-2 and regular rate and rhythm Respiratory: clear to auscultation (CTA) and no rales, ronchi or wheeze Musculoskeletal: no peripheral edema Skin: no stigmata of neurocutaneous disease noted and normal and intact Eyes: extraocular muscles intact (EOMI) and pupils equal, round and reactive to light (PERRL) NEUROLOGIC EXAMINATION: Mental status: Alert and interactive Oriented to full date and location Oriented to person Speech fluent with no evidence of aphasia Cranial Nerves smile eye brow raise symmetric Reflexes: Deep tendon reflexes are brisk. up going toes bilaterally Sensory: light and cool touch diminished on the left UE/LE Coordination: finger to nose left dysmetric, left shoulder limits movement Gait/Stance: Posture lying in bed Motor: unable to test Strength: hand case therapist biceps triceps right 5/5 left 4/5, hip flex 5/5 right left 4/5 left very spastic lifts to gravity Results & Data ([facility]) Vital Signs (Past 12 Hours) Vital Signs Temp Pulse Resp BP Pulse Ox 05/21/21 07:43 36.4 C L 64 16 118/73 95 Laboratory Results no labs Diagnostic Findings no new imaging (1) DVT (deep venous thrombosis) Affected thrombotic vein of extremity: unspecified vein of extremity Chronicity: chronic DVT location: lower extremity Laterality: left Qualified Code(s): I82.502 - Chronic embolism and thrombosis of unspecified deep veins of left lower extremity
[2021-05-21] MEDS ORDERED: traMADol HCL 50 MG TABLET PO PRN (15:34)
--- NOTE | 2021-05-21 18:43 | Hospitalist Progress Note ---
Date of Service May 21, 2021 Assessment & Plan (1) Generalized weakness: (2) Multiple sclerosis: Plan: Neurologist consulted -Administered 1 g Solu-Medrol IV in the ER, continue daily x3 days Today the third day of Solu-Medrol 1 g IV Left lower extremity strength slowly improving Start prednisone taper tomorrow as follows for neurology service recommendations: 80 mg x 2 days, 60 mg x 3 days, 40 mg x 3 days, 30 mg x 3 days, 20 mg x 3 days, 10 mg x 3 days then stop Continue PT and OT evaluation Patient prefers to go home with home health services No focus of infection identified (3) Diarrhea: Plan: Stool for PCR: Pending Diarrhea has resolved (4) Chronic deep vein thrombosis (DVT) of distal vein of left lower extremity: Plan: -History of such, continue Eliquis 5 mg twice daily -SCDs, Teds -Primarily wheelchair-bound due to MS, patient at baseline is able to transfer self from bed to wheelchair to chair, etc. however was unable to do so during admission secondary to weakness as described above. (5) Primary hyperparathyroidism: Plan: -TSH 2.831 DVT PPx: - teds, scds, Lovenox subcu CODE: Full code Dispo: Lives at home Prefers to be discharged to home when medically stable PT and OT evaluation in progress plan of care discussed with patient in detail and at length all questions answered he is understanding, agreeable, comfortable with the plan of care Admission and Anticipated Discharge Date Admission Date: May 19, 2021 Subjective Follow-up for multiple sclerosis flareup, etc. Seen sitting up in bed, comfortable, not in distress States his left lower extremity strength is improved today Overall feels improved No fevers or chills, cough, nausea vomiting abdominal pain, problems with urination or bowel movement No other symptom Review of Systems Review of Systems: all noted and negative except for above Physical Exam Physical Exam: General- oriented x 3, not in distress, speaks in sentences with no effort or accessory muscle use Eyes- anicteric Neck- no JVD Lungs- clear breath sounds bilaterally, no rales/wheezes Heart- normal rate, regular rhythm; no murmurs Abdomen- normal bowel sounds, nondistended, soft, nontender Extremities- no pretibial edema, no calf tenderness Neuro- alert, oriented x 3; left lower extremity: 2-3 out of 5 motor strength, sensation 50% No other new focal neurologic deficits Skin- warm & dry Results & Data Results & Data ([facility]) Vital Signs (Past 12 Hours) Vital Signs Temp Pulse Resp BP Pulse Ox 05/21/21 14:20 36.6 C 95 H 16 135/76 95 05/21/21 07:43 36.4 C L 64 16 118/73 95 all noted and reviewed including below
[2021-05-21] MEDS: ACETAMINOPHEN 325 MG TAB PO PRN (19:17)
[2021-05-22] MEDS: BACLOFEN 10 MG TAB PO SCH ×2 (09:23→20:09)
[2021-05-22] MEDS: FLUoxetine HCL 10 MG CAP PO SCH (09:23)
[2021-05-22] MEDS: APIXABAN 5 MG TABLET PO SCH ×2 (09:23→20:09)
[2021-05-22] MEDS: predniSONE 20 MG TAB PO SCH (09:24)
[2021-05-22] MEDS: traMADol HCL 50 MG TABLET PO PRN ×2 (09:25→20:12)
--- NOTE | 2021-05-22 18:35 | Hospitalist Progress Note ---
Date of Service May 22, 2021 Assessment & Plan (1) Generalized weakness: Plan: (1) Generalized weakness: (2) Multiple sclerosis: Plan: Neurologist evaluated, initially on iv solumedrol high dose, f/b tapering s teroid from 05/22. Pt slowing moving towards his baseline Start prednisone taper tomorrow as follows for neurology service recommendations: 80 mg x 2 days, 60 mg x 3 days, 40 mg x 3 days, 30 mg x 3 days, 20 mg x 3 days, 10 mg x 3 days then stop Continue PT and OT evaluation Patient prefers to go home with home health services No focus of infection identified (3) Diarrhea: Diarrhea has resolved (4) Chronic deep vein thrombosis (DVT) of distal vein of left lower extremity: Plan: -History of such, continue Eliquis 5 mg twice daily -SCDs, Teds -Primarily wheelchair-bound due to MS, patient at baseline is able to transfer self from bed to wheelchair to chair, etc. however was unable to do so during admission secondary to weakness as described above. DVT PPx: - eliquis CODE: Full code Dispo: Lives at home Prefers to be discharged to home when medically stable Likely DC in next 1-2 days. Admission and Anticipated Discharge Date Admission Date: May 19, 2021 Subjective Patient seen and examined at bedside as a follow-up of generalized weakness and multiple sclerosis. Patient lying in bed, on room air, NAD, no new acute events overnight. Patient reports eating okay. Patient denies bowel movement since last few days. Patient denies fever/headache/chills/chest pain/sore throat/cough/belly pain/other review of symptoms. Patient reports improving left extremity weakness. Patient has chronically left foot drop. Physical Exam Physical Exam: GENERAL: Alert and 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 NAD, on RA. HEENT: No pallor, no icterus. Pupils equal, round and reactive to light. Oral mucosa moist. NECK: No JVD, no neck masses. HEART: S1 and S2 heard. Regular rate and rhythm. No murmur, no gallop. RESPIRATORY SYSTEM: Normal AP diameter. No accessory muscle use. No wheezing, no crackles. ABDOMEN: Soft, bowel sounds present, nontender, no distention. CENTRAL NERVOUS SYSTEM: No facial droop. Speech is clear. Obeys simple commands. Moves extremities. LLE 2-3/5, left foot drop noted. LUE 3/5 EXTREMITIES: No edema, no erythema seen. Results & Data Results & Data ([facility]) Vital Signs (Past 12 Hours) Vital Signs Temp Pulse Resp BP Pulse Ox 05/22/21 14:40 36.6 C 84 16 162/83 H 96 05/22/21 07:37 36.5 C 67 16 149/81 H 96
[2021-05-22] MEDS ORDERED: POLYETHYLENE (MIRALAX) 17 GM PACK PO SCH (18:45)
[2021-05-23] MEDS: traMADol HCL 50 MG TABLET PO PRN ×2 (04:57→08:05)
[2021-05-23 07:55] LABS: Hemoglobin 15.9 g/dL (14.0-18.0); Mean Corpuscular Hemoglobin 32.2 pg (25-34); Mean Corpuscular Hgb Conc 33.8 g/dL (32-36); Mean Corpuscular Volume 95.1 fL (80-100); Platelet Count 235 K/uL (130-400); RDW Coefficient of Variation 13.5 % (11.5-14.5); RDW Standard Deviation 47.1 fL (36.4-46.3); Red Blood Count 4.94 M/uL (4.7-6.1); White Blood Count 11.03 K/uL (4.8-10.8)
[2021-05-23] MEDS: APIXABAN 5 MG TABLET PO SCH (08:05)
[2021-05-23] MEDS: FLUoxetine HCL 10 MG CAP PO SCH (08:05)
[2021-05-23] MEDS: BACLOFEN 10 MG TAB PO SCH (08:05)
[2021-05-23] MEDS: predniSONE 20 MG TAB PO SCH (08:05)
[2021-05-23] MEDS: ACETAMINOPHEN 325 MG TAB PO PRN (08:10)
[2021-05-23 08:33] LABS: BUN Creatinine Ratio 23.7 (10-20); Calcium 9.3 mg/dl (8.5-10.1); Creatinine Clr Calc Pharmacy 109.5 ml/min; Est GFR (African American) 107.3 ml/min; Est GFR (Non-African American) 92.6 ml/min; Magnesium 2.4 mg/dl (1.7-2.4); Potassium 3.7 mmol/L (3.5-5.1)
--- NOTE | 2021-05-23 13:49 | Discharge Summary ---
Date of Service May 23, 2021 Admission HPI Per Admitting Provider This is a 45 yo M with PMHx of MS, chronic DVT of the LLE on eliquis, depression, obstructive uropathy, primary hyperparathyroidism and seizure disorder who presents to the ER with acute worsening weakness over the past 3 days. He notes that he has had diarrhea 15 times daily x 3 days which is watery, denies blood or dark tarry stools, abdominal pain. He admits to 2 episodes of nausea and vomiting, at bedside he has lunch delivered and is tolerating it without difficulty. Diarrhea is a longstanding issue for him, and attempts to limit food that make it worse, like high fiber. This morning he was unable to get himself transferred from bed to wheelchair due to weakness, resulting in inability to toilet himself today. He has had poor PO intake in the past 3 days because of not feeling well. He denies consumption of raw, undercooked, spoiled food, or bad water to his knowledge. Pt admits to having chronic difficulty with emptying his bladder, but denies dysuria or hematuria, and is trying to provide a urine sample to r/o infection. He denies fever, chest pain, sob, body aches or pains. He lives at home with his parent and reports being exposed to second hand smoke, however none of his household contacts have displayed infectious symptoms. Pt reports having home health scheduled to come to his house on this week, but has not been actively participating in therapy. Pt notes he is able to move his left lower extremity but not the right chronically. He feels like he is having more difficulty at home. He has not been on any medication for MS in a long time, at least 1 year. Previously has followed with neurology as an outpatient. He does not like to take extra medications because it makes him feel "foggy". He is taking eliquis routinely for chronic LLE dvt and has been on this for about 1 year. Pt states he is taking lasix 20 mg daily for swelling. Admission Exam Per Admitting Provider General: awake, alert, no apparent distress Head: Normocephalic, atraumatic ENT: PERRL, EOMI, no pharyngeal exudate, mucous membranes moist Chest: Clear to auscultation, on room air, no adventitious breath sounds Cardiac: Regular rate and rhythm, no murmur, no JVD, normal peripheral pulses, good capillary refill Abdominal: NABS x 4 quadrants, soft, nondistended, nontender to palpation, no rebound or guarding Extremities: LE atrophy, no peripheral edema or erythema, calfs nontender to palpation Psych: Sarcastic affect, Normal mood, eye contact is somewhat poor. Neuro: AAO x 3, strength rated 0/5 in the LLE, strength 3/5 in RLE, + spasticity of LE, Upper extremities with full strength and without motor deficits, speech is clear, no peripheral sensory deficits Principal Diagnosis MS flare Discharge Exam GENERAL: Alert and 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 NAD, on RA. HEENT: No pallor, no icterus. Pupils equal, round and reactive to light. Oral mucosa moist. NECK: No JVD, no neck masses. HEART: S1 and S2 heard. Regular rate and rhythm. No murmur, no gallop. RESPIRATORY SYSTEM: Normal AP diameter. No accessory muscle use. No wheezing, no crackles. ABDOMEN: Soft, bowel sounds present, nontender, no distention. CENTRAL NERVOUS SYSTEM: No facial droop. Speech is clear. Obeys simple commands. Moves extremities. LLE 2-3/5, left foot drop noted. LUE 3/5 EXTREMITIES: No edema, no erythema seen. Discharge Data Allergies Allergy/AdvReac Type Severity Reaction Status Date / Time aspirin Allergy Severe airway Verified 05/19/21 09:00 edema; hives Consultations 05/19/21 10:47 Consult Neurology Routine 05/19/21 11:12 ED Decision to Admit Stat Hospital Course (1) Generalized weakness: 45 yo gentleman w/ h/o MS was managed for the following: (1) Generalized weakness: (2) Multiple sclerosis: Plan: Neurologist evaluated, initially on iv solumedrol high dose, f/b tapering steroid from 05/22. Pt slowing moving towards his baseline Start prednisone taper 05/22 as follows per neurology service recommendations: 80 mg x 2 days, 60 mg x 3 days, 40 mg x 3 days, 30 mg x 3 days, 20 mg x 3 days, 10 mg x 3 days then stop Continue PT and OT ; OP f/u w/ PCP and neurology, neurology considering referring to MS specialist. Patient prefers to go home with home health services No focus of infection identified (3) Diarrhea: Diarrhea has resolved (4) Chronic deep vein thrombosis (DVT) of distal vein of left lower extremity: Plan: -History of such, continue Eliquis 5 mg twice daily -SCDs, Teds -Primarily wheelchair-bound due to MS, patient at baseline is able to transfer self from bed to wheelchair to chair, etc. however was unable to do so during admission secondary to weakness as described above. DVT PPx: - eliquis CODE: Full code Patient being discharged home with following instructions at the point of discharge: Follow-up with your primary care physician within a week time. You were on prednisone taper doses: On 05/23 you will be getting 60 mg daily for 3 days, then 40 mg daily for 3 days, then 30 mg daily for 3 days, then 20 mg daily for 3 days, then 10 mg daily for 3 days, finally stop. Continue with physical therapy at home. Maintain follow-up with neurology as an outpatient. Established with MS specialist Dr. Morgan for evaluation to restart Ocrevus. Take medications as prescribed. Total Time Total Time Spent Total Time Spent (In Minutes): 35 Discharge Plan Discharge Items Patient Disposition: Home - Home Health Services Reason For Visit: MS FLARE, WEAKNESS Discharge Diagnosis: MS flare Activity: Resume your previous activity Non-emergency contact: Primary Care Provider and Neurologist Call non-emergency contact if: you have any medication questions, your symptoms worsen and your temperature is above 101 Follow-up/Referrals: Jabari Pemberton [Primary Care Provider] - 05/29/21 9:15 am Diet: Regular Addtl Attending Provider Instructions: Follow-up with your primary care physician within a week time. You were on prednisone taper doses: On 05/23 you will be getting 60 mg daily for 3 days, then 40 mg daily for 3 days, then 30 mg daily for 3 days, then 20 mg daily for 3 days, then 10 mg daily for 3 days, finally stop. Continue with physical therapy at home. Maintain follow-up with neurology as an outpatient. Established with MS specialist Dr. Morgan for evaluation to restart Ocrevus. Take medications as prescribed. Pending Studies at Discharge: No Stand-Alone Forms: DaWanda, Smoking Cessation Medications and DC Order Prescriptions: New baclofen 10 mg Tablet 10 mg PO BID Qty: 60 RF: 0 tramadol 50 mg Tablet 50 mg PO Q8H PRN (Reason: pain) 7 Days Qty: 21 RF: 0 prednisone 20 mg Tablet 20 mg PO DAILY Qty: 21 RF: 0 Continued furosemide 20 mg tablet 20 mg PO DAILY RF: 0 fluoxetine [Prozac] 10 mg capsule 10 mg PO QAM RF: 0 Eliquis 5 mg (74 tabs) tablets,dose pack 5 mg PO BID RF: 0 Discharge Orders: Discharge Order (Routine); Ordered 05/23/21 Ordered By: Rafaela Lomeli Admission Data Admit Date/Time: 05/19/21 13:55 Attending Provider: Rafaela Lomeli Admit Provider: Sreedhar Ayoub Primary Care Provider: Jabari Pemberton Other Providers: Shelley Bunch ; Sreedhar Ayoub ; Haylee Lucio ; [facility] ; Rachel Olivares
[2021-05-24] MEDS ORDERED: predniSONE 20 MG TAB PO SCH (09:00)
== END 2021-05-23 19:01 | disposition home health service (06) | DRG 59 ==
LOC: ED 08:16 → 3E 13:31 → SUATTDRO 13:55 → 3E 13:55

== ENCOUNTER 2021-09-29 18:36 | Observation (INO) ==
[2021-09-29] MEDS ORDERED: ONDANSETRON INJ 2 MG/ML 2 ML VIAL IV STA (18:51)
[2021-09-29] MEDS ORDERED: ACETAMINOPHEN 500 MG TAB PO STA (18:51)
[2021-09-29] MEDS ORDERED: SODIUM CHLORIDE 0.9% 1000ML 1,000 ML IV SCH (19:00)
--- NOTE | 2021-09-29 19:05 | Emergency Department Note ---
Impression & Plan Multiple sclerosis, Primary hyperparathyroidism, Stool incontinence, Hypophosphatemia, Serum calcium elevated, Generalized weakness ED Provider Note NAME: JAD DICKINSON AGE: 45 SEX: M : 1975 ARRIVES VIA: Ambulance INFORMANT: Patient, ED PROVIDER(S): Jose Guadalupe Guzman MD Chief Complaint: Weakness HPI: Patient presents due to concern for weakness. The patient does live with his father but primarily lives on his own but does have a rental boats caretaker that comes in most of the week. The patient did not have anybody in today. Patient does have a history of MS and blood clots. Patient denies any fevers but may be felt a bit warm. Patient denies any cough or chest pain or shortness of breath. The patient has had occasional nausea with a dull frontal headache that is nonradiating. The patient does have chronic left-sided weakness which is unchanged from prior and otherwise just has generalized weakness. Patient denies any vomiting. Patient was incontinent of stool today. Patient denies any chills. Denies any sore throat congestion or cough. He denies any alcohol or tobacco use. ROS: See HPI for pertinent positives and negatives. A total of 10 systems were reviewed and otherwise negative. Past medical history: See below Surgical history: See below Social history: See below Physical Exam: GENERAL: NAD, wearing a mask, non-toxic. EYE EXAM: Normal conjunctiva. PERRL, no anisocoria and EOM's grossly intact w/o pain. NECK: Supple, no nuchal rigidity, no adenopathy, non-tender. No signs of meningismus. FROM of the neck with good chin to chest and neck extension. No stridor. LUNGS: Clear to auscultation. Normal chest wall mechanics. HEART: NSR, no MRG. ABDOMEN: Abdomen soft, non-tender, normo-active bowel sounds, no masses, no rebound or guarding. BACK: No CVA TTP. SKIN: No rashes and no bruising. UPPER EXTREMITIES: Upper extremities are grossly normal. LOWER EXTREMITIES: Grossly normal, no edema. NEURO EXAM: A&O x3, cranial nerves II-XII grossly intact, normal speech. Differential diagnoses: Infection, dehydration, metabolic abnormality, hypo/hyperglycemia, electrolyte disturbance, anemia, hypoxia, cardiac sources, intracerebral event, toxicologic, neurologic, as well as other pathologies. Course: Patient was seen and evaluated the bedside. Full history physical exam was performed. EKG interpreted by me Sinus rhythm, rate 94, normal intervals, normal axis, no obvious ST elevations or T WI. Imaging Studies: See Below Cardiac monitoring: An order was placed for continuous cardiac monitoring. The monitor shows a rate of 82 with sinus rhythm. MDM: Patient was seen due to concern for weakness. Blood work is obtained the patient was given IV fluids and antiemetics. Patient did have mild dull frontal headache but is not meningitic or encephalopathic. Patient denies any falls or trauma. Do not believe requires a CT that at this time. Patient's blood work shows a normal white count H&H and platelet count. The patient's kidney function is unremarkable. The patient does have hypercalcemia and more profound hypophosphatemia. Patient was ordered additional IV fluids as well as p.o. and IV replacement of the phosphorus. The patient does have a know n history of hyperparathyroidism and states that he was unable to get a parathyroidectomy during COVID. Given the patient's weakness and concern for possible MS flare I did speak with Dr. Gill who recommended 1 g of Solu- Medrol daily for 3 days. This was ordered. Given this along with the weakness and hypophosphatemia I did speak with the on-call hospitalist Dr. Arzola and the patient was admitted to the medicine service. Past Med/Surg History Medical History (Updated 09/29/21 @ 23:57 by Jose Guadalupe Guzman MD) Chronic pain syndrome H/O poor personal hygiene Hypercalcemia Left leg pain Multiple sclerosis Obstructive uropathy 2/2 renal stone, caused RUBI, pt admitted for this and hypercalcemia 05/2018 Primary hyperparathyroidism Seizure disorder Many years ago may have had single episode, pt was never treated for this, no reoccurrence. Weakness Surgical History History of cystoscopy WITH STENT PLACEMENT 06/14/18 [facility] Family History Father Stroke Thyroid disorder Other Hypertension Kidney stones Social History Smoking Status: Never smoker Tobacco Type: Smokeless Tobacco (Dip or Chew) Cigarettes Per Day: 0; Second Hand Exposure: No; Hx Alcohol Use: Yes Alcohol type: beer Hx Substance Use: No Preferred Language: Japanese Communication Ability: Effective Veterinary Laboratory Diagnostician Required: No Beliefs That Will Affect Care: None marital status: Current Living Situation: Parent Current Living Situation Comment: Patient states he must do all of his own self care current occupational status: disabled How many Children do You have: 2 Feels Safe at Home: Yes Assistive Devices: Wheelchair Allergies Allergies Allergy/AdvReac Type Severity Reaction Status Date / Time aspirin Allergy Severe airway Verified 05/19/21 09:00 edema; hives Home Meds Home Medications Medication Instructions Recorded Confirmed apixaban 5 mg (74 tabs) tablets in 5 mg PO BID 09/11/20 09/29/21 a dose pack (Eliquis) fluoxetine 10 mg capsule (Prozac) 10 mg PO QAM 09/11/20 09/29/21 furosemide 20 mg tablet 20 mg PO DAILY 11/02/20 09/29/21 tizanidine 2 mg tablet 2 mg Q8H PRN muscle spasms 09/29/21 09/29/21 Results & Data (ED) Vital Signs Vital Signs - 24 hr 09/29/21 19:02 09/29/21 19:50 09/29/21 19:01 Temperature 36.8 C Temperature Source Oral Pulse Rate 101 H Pulse Rate from SpO2 Sensor 100 H Respiratory Rate 20 Respiratory Effort / Characteristics Non-Labored Spontaneous Respiratory Depth Normal Respiratory Pattern Regular Blood Pressure 158/134 H 158/134 H Blood Pressure Mean 142 142 Blood Pressure Position Sitting Pulse Oximetry 97 97 98 Oxygen Delivery Method Room Air Room Air Sepsis Recent Fever Within 48 Hours No Sepsis New/Unexplained Change in Mental Status N/A Sepsis Action Taken by Nursing No Action Required 09/29/21 20:33 09/29/21 21:30 09/29/21 22:00 Temperature Temperature Source Pulse Rate 92 H 70 80 Pulse Rate from SpO2 Sensor 93 H Respiratory Rate 23 14 22 Respiratory Effort / Characteristics Respiratory Depth Respiratory Pattern Blood Pressure 144/96 H 124/86 129/76 Blood Pressure Mean 112 98 93 Blood Pressure Position Pulse Oximetry 98 95 96 Oxygen Delivery Method Sepsis Recent Fever Within 48 Hours Sepsis New/Unexplained Change in Mental Status Sepsis Action Taken by Nursing 09/29/21 22:30 Temperature Temperature Source Pulse Rate 93 H Pulse Rate from SpO2 Sensor Respiratory Rate 22 Respiratory Effort / Characteristics Respiratory Depth Respiratory Pattern Blood Pressure 133/86 Blood Pressure Mean 101 Blood Pressure Position Pulse Oximetry 97 Oxygen Delivery Method Sepsis Recent Fever Within 48 Hours Sepsis New/Unexplained Change in Mental Status Sepsis Action Taken by Nursing Laboratory Data Result diagrams: 09/29/21 19:36 09/29/21 19:36 Lab Results 09/29/21 09/29/21 09/29/21 Range/Units 19:36 19:36 19:36 WBC 8.09 (4.8-10.8) K/ul RBC 5.32 (4.63-6.08) M/uL Hgb 17.0 (14.0-18.0) g/dl Hct 49.8 (40.1-51.0) % MCV 93.6 (80.0-100.0) fL MCH 32.0 (25.0-34.0) pg MCHC 34.1 (32.0-36.0) g/dL RDW Std Deviation 42.3 (36.4-46.3) fL RDW Coeff of Bret 12.3 (11.5-14.5) % Plt Count 234 (130-400) K/uL MPV 10.1 (9.4-12.4) fL Immature Gran % (Auto) 0.6 % Neut % (Auto) 75.0 % Lymph % (Auto) 12.6 % [place] % (Auto) 9.6 % Eos % (Auto) 1.5 % Baso % (Auto) 0.7 % Neut # (Auto) 6.06 (1.4-6.5) K/uL Lymph # (Auto) 1.02 L (1.2-3.4) K/uL [place] # (Auto) 0.78 (0.24-0.82) K/uL Eos # (Auto) 0.12 (0-0.50) K/uL Baso # (Auto) 0.06 (0-0.2) K/uL Immature Gran # (Auto) 0.05 H (0.00-0.02) K/uL PT (9.0-12.0) Seconds INR (0.9-1.1) Sodium 140 (136-145) mmol/L Potassium 4.3 (3.5-5.1) mmol/L Chloride 110 H (98-107) mmol/L Carbon Dioxide 24 (21-32) mmol/L Anion Gap 6 (3-11) BUN 16 (6-23) mg/dl Creatinine 1.05 (0.6-1.4) mg/dl Est Cr Clr Drug Dosing 101.1 ml/min Est GFR ( Amer) 97.5 ml/min Est GFR (Non-Af Amer) 84.1 ml/min BUN/Creatinine Ratio 15.2 (10-20) Glucose 110 H (70-99(Fasting)) mg/dl Calcium 11.5 H (8.5-10.1) mg/dl Phosphorus 1.3 L* (2.5-4.9) mg/dl Magnesium 2.3 (1.7-2.4) mg/dl Total Bilirubin 0.4 (0.2-1.0) mg/dl AST 26 (13-39) U/L ALT 28 (7-52) U/L Alkaline Phosphatase 72 (34-104) U/L Total Protein 6.9 (6.0-8.3) gm/dl Albumin 4.1 (3.4-5.0) gm/dl Globulin 2.8 (2.5-4.0) gm/dl Albumin/Globulin Ratio 1.5 (0.9-2) TSH 3.139 (0.300-4.500) uIu/ml Urine Color Urine Appearance (Clear) Urine pH (4.5-7.5) Ur Specific [place] (1.000-1.030) Urine Protein (Negative) Urine Glucose (UA) (Negative) Urine Ketones (Negative) Urine Blood (Negative) Urine Nitrite (Negative) Urine Bilirubin (Negative) Urine Urobilinogen (Negative) Ur Leukocyte Esterase (Negative) Urine WBC (Auto) (0-5) /hpf Urine RBC (Auto) (0-4) /hpf U Hyaline Cast (Auto) (0-5) /lpf U Epithel Cells (Auto) (0-5) /lpf Urine Bacteria (Auto) (Negative) SARS-CoV-2, RNA, NAAT (NEGATIVE) 09/29/21 09/29/21 09/29/21 Range/Units 19:36 21:18 22:08 WBC (4.8-10.8) K/ul RBC (4.63-6.08) M/uL Hgb (14.0-18.0) g/dl Hct (40.1-51.0) % MCV (80.0-100.0) fL MCH (25.0-34.0) pg MCHC (32.0-36.0) g/dL RDW Std Deviation (36.4-46.3) fL RDW Coeff of Bret (11.5-14.5) % Plt Count (130-400) K/uL MPV (9.4-12.4) fL Immature Gran % (Auto) % Neut % (Auto) % Lymph % (Auto) % [place] % (Auto) % Eos % (Auto) % Baso % (Auto) % Neut # (Auto) (1.4-6.5) K/uL Lymph # (Auto) (1.2-3.4) K/uL [place] # (Auto) (0.24-0.82) K/uL Eos # (Auto) (0-0.50) K/uL Baso # (Auto) (0-0.2) K/uL Immature Gran # (Auto) (0.00-0.02) K/uL PT 9.8 (9.0-12.0) Seconds INR 0.9 (0.9-1.1) Sodium (136-145) mmol/L Potassium (3.5-5.1) mmol/L Chloride (98-107) mmol/L Carbon Dioxide (21-32) mmol/L Anion Gap (3-11) BUN (6-23) mg/dl Creatinine (0.6-1.4) mg/dl Est Cr Clr Drug Dosing ml/min Est GFR ( Amer) ml/min Est GFR (Non-Af Amer) ml/min BUN/Creatinine Ratio (10-20) Glucose (70-99(Fasting)) mg/dl Calcium (8.5-10.1) mg/dl Phosphorus (2.5-4.9) mg/dl Magnesium (1.7-2.4) mg/dl Total Bilirubin (0.2-1.0) mg/dl AST (13-39) U/L ALT (7-52) U/L Alkaline Phosphatase (34-104) U/L Total Protein (6.0-8.3) gm/dl Albumin (3.4-5.0) gm/dl Globulin (2.5-4.0) gm/dl Albumin/Globulin Ratio (0.9-2) TSH (0.300-4.500) uIu/ml Urine Color Yellow Urine Appearance Turbid A (Clear) Urine pH 7.5 (4.5-7.5) Ur Specific [place] 1.014 (1.000-1.030) Urine Protein Negative (Negative) Urine Glucose (UA) Negative (Negative) Urine Ketones 1+ H (Negative) Urine Blood Trace H (Negative) Urine Nitrite Negative (Negative) Urine Bilirubin Negative (Negative) Urine Urobilinogen Negative (Negative) Ur Leukocyte Esterase Negative (Negative) Urine WBC (Auto) 1-5 (0-5) /hpf Urine RBC (Auto) 0-4 (0-4) /hpf U Hyaline Cast (Auto) 1-5 (0-5) /lpf U Epithel Cells (Auto) 0-5 (0-5) /lpf Urine Bacteria (Auto) Negative (Negative) SARS-CoV-2, RNA, NAAT NEGATIVE (NEGATIVE) Administered Medications Potassium Phosphate 15 mmol/ (Dextrose) 255 mls @ 88 mls/hr IV NOW ONE Stop: 09/30/21 00:08 Last Admin: 09/29/21 21:14 Dose: 88 mls/hr Documented By: Discontinued Medications Acetaminophen (Acetaminophen 500 Mg Tab) 1,000 mg PO NOW STA Stop: 09/29/21 18:52 Last Admin: 09/29/21 19:41 Dose: 1,000 mg Documented By: Sodium Chloride (Nss 1000ml) 1,000 mls @ 999 mls/hr IV .Q1H1M MANJINDER Stop: 09/29/21 20:00 Last Infusion: 09/29/21 20:48 Dose: 0 mls/hr Documented By: Admin: 09/29/21 19:41 Dose: 999 mls/hr Documented By: Sodium Chloride (Nss 1000ml) 1,000 mls @ 999 mls/hr IV .Q1H1M ONE Stop: 09/29/21 21:51 Last Infusion: 09/29/21 22:34 Dose: 0 mls/hr Documented By: Admin: 09/29/21 21:14 Dose: 999 mls/hr Documented By: Methylprednisolone 1,000 mg/ (Dextrose) 266 mls @ 266 mls/hr IV NOW STA Stop: 09/29/21 22:50 Last Admin: 09/29/21 23:49 Dose: 266 mls/hr Documented By: COY Ondansetron HCl (Ondansetron Inj 2 Mg/Ml 2 Ml Vial) 4 mg IV NOW STA Stop: 09/29/21 18:52 Last Admin: 09/29/21 19:41 Dose: 4 mg Documented By: ALPHONSO Potassium Phosphate (Pot Phosphate Monobasic W/ Sod Tab) 2 tab PO NOW STA Stop: 09/29/21 20:52 Last Admin: 09/29/21 21:13 Dose: 2 tab Documented By: ALPHONSO Potassium Phosphate (Potassium Phos 3 Mmol/1 Ml Infusion) 15 mmol IV NOW STA Stop: 09/29/21 20:52 Last Admin: 09/29/21 21:39 Dose: Not Given Documented By: ALPHONSO Discharge Plan Visit Data Chief Complaint: Weakness ED Provider: Jose Guadalupe Guzman Discharge Problem: Multiple sclerosis, Primary hyperparathyroidism, Stool incontinence, Hypophosphatemia, Serum calcium elevated, Generalized weakness Forms Stand Alone Forms: [facility] Prescriptions Prescriptions: No Action furosemide 20 mg tablet 20 mg PO DAILY fluoxetine [Prozac] 10 mg capsule 10 mg PO QAM Eliquis 5 mg (74 tabs) tablets,dose pack 5 mg PO BID tizanidine 2 mg tablet 2 mg Q8H PRN (Reason: muscle spasms) Referrals Referrals: PCP,NO [Physician] -
[2021-09-29 19:47] LABS: Basophils # (auto) 0.06 K/uL (0-0.2); Basophils % (auto) 0.7 %; Eosinophils # (auto) 0.12 K/uL (0-0.50); Eosinophils % (auto) 1.5 %; Hematocrit (blood only) 49.8 % (40.1-51.0); Immature Granulocytes # (auto) 0.05 K/uL (0.00-0.02); Immature Granulocytes % (auto) 0.6 %; Lymphocytes # (auto) 1.02 K/uL (1.2-3.4); Lymphocytes % (auto) 12.6 %; Mean Corpuscular Hgb Conc 34.1 g/dL (32.0-36.0); Mean Corpuscular Volume 93.6 fL (80.0-100.0); Mean Platelet Volume 10.1 fL (9.4-12.4); Monocytes # (auto) 0.78 K/uL (0.24-0.82); Monocytes % (auto) 9.6 %; Neutrophils # (auto) 6.06 K/uL (1.4-6.5); Platelet Count 234 K/uL (130-400); RDW Coefficient of Variation 12.3 % (11.5-14.5); RDW Standard Deviation 42.3 fL (36.4-46.3); Red Blood Count 5.32 M/uL (4.63-6.08); White Blood Count 8.09 K/ul (4.8-10.8)
[2021-09-29 20:12] LABS: BUN Creatinine Ratio 15.2 (10-20); Calcium 11.5 mg/dl (8.5-10.1); Creatinine Clr Calc Pharmacy 101.1 ml/min; Est GFR (African American) 97.5 ml/min; Est GFR (Non-African American) 84.1 ml/min; Potassium 4.3 mmol/L (3.5-5.1)
[2021-09-29 20:22] LABS: Albumin Globulin Ratio 1.5 (0.9-2); Albumin Level 4.1 gm/dl (3.4-5.0); Bilirubin,Total 0.4 mg/dl (0.2-1.0); Globulin 2.8 gm/dl (2.5-4.0); Magnesium 2.3 mg/dl (1.7-2.4); Phosphorus 1.3 mg/dl (2.5-4.9); Total Protein 6.9 gm/dl (6.0-8.3)
[2021-09-29] MEDS ORDERED: SODIUM CHLORIDE 0.9% 1000ML 1,000 ML IV ONE (20:51)
[2021-09-29] MEDS ORDERED: POT PHOSPHATE MONOBASIC W/ SOD TAB PO STA (20:51)
[2021-09-29] MEDS ORDERED: POTASSIUM PHOS 3 MMOL/1 ML INFUSION IV STA (20:51)
[2021-09-29] MEDS ORDERED: POTASSIUM PHOSPHATE 15 MMOL in DEXTROSE 5% 250 ML IV ONE (21:15)
[2021-09-29] MEDS ORDERED: methylPREDNISolone 1,000 MG in DEXTROSE 5% 250 ML IV STA (21:51)
--- NOTE | 2021-09-29 22:02 | History & Physical Report ---
Date of Service September 29, 2021 Assessment & Plan (1) Generalized weakness: Plan: 45yo male with a history of multiple sclerosis, left leg DVT, hypercalcemia due to primary hyperparathyroidism, bowel incontinence, and depression presents with a two-day history of weakness, mild nausea, and one episode of bowel incontinence, all consistent with patient's prior MS flares. Weakness suspected secondary to multiple sclerosis flare Upon arrival to [facility], vitals were notable for mild hypertension, mild tachycardia (101) which has since improved; no tachypneia, patient afebrile, SpO2 adequate on room air Labs were notable for hypercalcemia (11.5) and hypophosphatemia (1.3). No luekocytosis, anemia, thrombocytopenia/thrombocytosis, creatinine not elevated, magnesium wnl, LFTs not elevated, TSH wnl Symptoms consistent with multiple sclerosis flare given few other symptoms beyond weakness and patient noting this episode is similar to prior MS flares; labs not suggestive of infection In the ED, patient received NSS bolus 1L (x2), solumedrol 1000mg IV (x1), potassium phosphate PO 2 tabs (x1), potassium phosphate 15mmol IV (x1), zofran, and acetaminophen, resulting an an improvement in symptoms No imaging indicated at this time Continue methylprednisolone 1000mg IV daily (x2 more days) for a three-day steroid course to treat MS flare Consider neurology consult Zofran prn nausea Trend daily CBC, BMP Hypophosphatemia, hypercalcemia, hyperparathyroidism Labs done in April at [facility] were notable for hypercalcemia (12.0) and hyperparathyroidism (184.7) Patient was scheduled to have a parathyroidectomy though this was canceled due to pandemic-related delays Received potassium phosphate PO (x2 tabs) and potassium phospate 15mmol IV (x1) in ED Trend serum phosphate and iCa in AM, treat/replete as indicated Recommend PCP follow-up for reconsideration of elective parathyroidectomy Bowel incontinence Secondary to MS; patient has 10+ year history of bowel incontinence which started around the time of his MS diagnosis Per patient, would like to avoid antispasmodics as they make his bowel incontinence worse (only uses his as-needed tizanidine 1-2 times per week) Anticipate improvement in symptoms with steroid therapy noted above Consider fecal diversion if symptoms worsen, though at the time of admission, patient was not having further incontinence since the episode last night Consider stool culture with C. diff if symptoms worsen Headache Acetaminophen 1000mg q8h prn pain Of note, patient requests NO escalation of pain meds beyond acetaminophen History of DVT Signs/symptoms not suggestive of DVT/PE Continue home eliquis Depression Continue home prozac FEN: regular diet, NSS @ 80mL/hr (x2 bags ordered) Code status: full code DVT ppx: home eliquis Consults: consider neurology consult PT/OT: ordered Case management: consulted for home safety assessment Dispo: med/surg (2) Multiple sclerosis: (3) Primary hyperparathyroidism: (4) Stool incontinence: (5) Chronic deep vein thrombosis (DVT) of distal vein of left lower extremity: (6) Serum calcium elevated: (7) Hypophosphatemia: History of Present Illness Primary Care Provider: NO PCP 45yo male with a history of multiple sclerosis, left leg DVT, vitamin D deficiency, hypercalcemia secondary to hyperparathyroidism, bowel incontinence, and depression presents with a two-day history of weakness, mild nausea, and one episode of bowel incontinence. Also notes a mild dull frontal headache and mild lightheadedness. Notes one episode of bowel incontinence last night, but also notes this has been an intermittent issue since he was diagnosed with MS about ten years ago. Patient is typically able to make it to the restroom in time but the episode of incontinence occurred while he was asleep. Patient says his symptoms feel very similar to prior MS flares. Denies fever, chills, congestion, sore throat, cough, CP, SOB, vomiting, abdominal pain, dysuria, hematuria, pain with bowel movements, hematochezia, melena, vertigo, or other symptoms. No recent illnesses. Denies alcohol or nicotine product use. Patient lives with his father though he is not always able to help take care of patient, and so patient has a metal dresser that comes in most days each week. Upon arrival to [facility], vitals were notable for mild hypertension, mild tachycardia (101) which has since improved; no tachypneia, patient afebrile, SpO2 adequate on room air. Labs were notable for hypercalcemia (11.5) and hypophosphatemia (1.3). No luekocytosis, anemia, thrombocytopenia/thrombocytosis, creatinine not elevated, magnesium wnl, LFTs not elevated, TSH wnl. In the ED, patient received NSS bolus 1L (x2), solumedrol 1000mg IV (x1), potassium phosphate PO 2 tabs (x1), potassium phosphate 15mmol IV (x1), zofran, and acetaminophen. Patient notes his symptoms have improved since arrival. Surrogate decision maker in case of an emergency: Eric Ramirez (patient's father - cell: [phone]) Allergies Allergy/AdvReac Type Severity Reaction Status Date / Time aspirin Allergy Severe airway Verified 05/19/21 09:00 edema; hives Home Medications Medication Instructions Recorded Confirmed Type apixaban 5 mg (74 tabs) tablets in 5 mg PO BID 09/11/20 09/29/21 History a dose pack (Eliquis) fluoxetine 10 mg capsule (Prozac) 10 mg PO QAM 09/11/20 09/29/21 History furosemide 20 mg tablet 20 mg PO DAILY 11/02/20 09/29/21 History tizanidine 2 mg tablet 2 mg Q8H PRN muscle spasms 09/29/21 09/29/21 History Past Med/Surg History Medical History (Updated 09/29/21 @ 23:57 by Jose Guadalupe Guzman MD) Chronic pain syndrome H/O poor personal hygiene Hypercalcemia Left leg pain Multiple sclerosis Obstructive uropathy 2/2 renal stone, caused RUBI, pt admitted for this and hypercalcemia 05/2018 Primary hyperparathyroidism Seizure disorder Many years ago may have had single episode, pt was never treated for this, no reoccurrence. Weakness Surgical History History of cystoscopy WITH STENT PLACEMENT 06/14/18 [facility] Family History Father Stroke Thyroid disorder Other Hypertension Kidney stones Social History Smoking Status: Never smoker Tobacco Type: Smokeless Tobacco (Dip or Chew) Cigarettes Per Day: 0; Second Hand Exposure: No; Hx Alcohol Use: Yes Alcohol type: beer Hx Substance Use: No Preferred Language: Occitan Communication Ability: Effective Waredresser Required: No Beliefs That Will Affect Care: None marital status: Current Living Situation: Parent Current Living Situation Comment: Patient states he must do all of his own self care current occupational status: disabled How many Children do You have: 2 Feels Safe at Home: Yes Assistive Devices: Wheelchair Physical Exam Physical Exam: Constitutional: well-appearing, no acute distress HEENT: NCAT, no conjunctival injection, MMM CV: regular rhythm, no murmur appreciated, extremities well-perfused, no LE edema Resp: CTABL, no wheezes/rales/rhonchi appreciated, no increased work of breathing GI: soft, nondistended, nontender, BS normoactive MSK: no calf tenderness, no flank tenderness Skin: warm, dry, no rash appreciated Neuro: alert, oriented, RUE and RLE strength 5/5, LUE strength 3/5, LLE strength 0/5, no additional focal deficit appreciated Results & Data Results & Data ([facility]) Vital Signs (Past 12 Hours) Vital Signs Temp Pulse Resp BP Pulse Ox O2 Del Method 09/29/21 21:30 70 14 124/86 95 09/29/21 20:33 92 H 23 144/96 H 98 09/29/21 19:01 158/134 H 98 09/29/21 19:50 97 Room Air 09/29/21 19:02 36.8 C 101 H 20 158/134 H 97 Room Air Supervising Physician Co-Signing Physician Notes Patient seen and examined, chart reviewed, case discussed with Dr. Metzger and I agree with the assessment and plan as above. In brief, patient is a 45yo male with MS presenting with 2 days of weakness, incontinence and nausea. Symptoms similar to prior MS flare. On exam patient is afebrile, mildly hypertensive and tachycardic now resolved, non-toxic in appearance Skin - intact HEENT - MMM, Neck supple Heart - +S1/S2, regular Lungs - CTA Abd - soft, NT/ND Ext- no edema Neuro - unable to move LLE Labs and images reviewed Assessment/plan - Suspect acute MS flare -Solumedrol 1gm IV daily -Electrolyte repletion -Neurology consultation appreciated -Remainder of plan as above Resident Activity Tracking Resident Involvement: Resident Care Provided and Kidney Trimmer Coverage Note Care Provided: Adult Hospital Medicine
[2021-09-29 22:23] LABS: Appearance Urine Turbid (Clear); Bacteria Urine Automated Negative (Negative); Bilirubin Urine Negative (Negative); Blood Urine Trace (Negative); Color Urine Yellow; Epithelial Cell Urine Auto 0-5 /lpf (0-5); Glucose Urine UA Negative (Negative); Ketones Urine 1+ (Negative); Leukocyte Esterase Urine Negative (Negative); Nitrite Urine Negative (Negative); Protein Urine Negative (Negative); RBC Urine Automated 0-4 /hpf (0-4); Specific Gravity Urine 1.014 (1.000-1.030); Urobilinogen Urine Negative (Negative); pH Urine 7.5 (4.5-7.5)
[2021-09-29 22:55] LABS: INR 0.9 (0.9-1.1); Prothrombin Time 9.8 Seconds (9.0-12.0)
[2021-09-30] MEDS ORDERED: ONDANSETRON INJ 2 MG/ML 2 ML VIAL IV PRN (00:37)
[2021-09-30] MEDS ORDERED: MELATONIN 3 MG TAB PO PRN (00:37)
[2021-09-30] MEDS ORDERED: tiZANidine HCL 4 MG TABLET PO PRN (01:11)
[2021-09-30] MEDS: APIXABAN 5 MG TABLET PO SCH ×3 (01:14→20:37)
--- NOTE | 2021-09-30 01:16 | Billing Data ---
Date of Service September 29, 2021 Coding Level of Care Code INT OBSERVATION CARE 50M LVL 2
[2021-09-30] MEDS: SODIUM CHLORIDE 0.9% 1000ML 1,000 ML IV SCH ×2 (01:22→11:31)
[2021-09-30 08:01] LABS: Hemoglobin 15.2 g/dl (14.0-18.0); Mean Corpuscular Hemoglobin 31.8 pg (25.0-34.0); Mean Corpuscular Hgb Conc 33.8 g/dL (32.0-36.0); Mean Corpuscular Volume 94.1 fL (80.0-100.0); Mean Platelet Volume 10.4 fL (9.4-12.4); Platelet Count 216 K/uL (130-400); RDW Coefficient of Variation 11.9 % (11.5-14.5); RDW Standard Deviation 41.8 fL (36.4-46.3); Red Blood Count 4.78 M/uL (4.63-6.08); White Blood Count 6.12 K/ul (4.8-10.8)
[2021-09-30] MEDS: FUROSEMIDE 20 MG TAB PO SCH (08:01)
[2021-09-30] MEDS: FLUoxetine HCL 10 MG CAP PO SCH (08:01)
[2021-09-30 08:22] LABS: Basophils # (auto) 0.01 K/uL (0-0.2); Basophils % (auto) 0.2 %; Immature Granulocytes # (auto) 0.03 K/uL (0.00-0.02); Immature Granulocytes % (auto) 0.5 %; Lymphocytes # (auto) 0.36 K/uL (1.2-3.4); Lymphocytes % (auto) 5.9 %; Monocytes # (auto) 0.04 K/uL (0.24-0.82); Monocytes % (auto) 0.7 %; Neutrophils # (auto) 5.68 K/uL (1.4-6.5); Neutrophils % (auto) 92.7 %
[2021-09-30 08:24] LABS: Estimated Average Glucose 91 mg/dl; Hemoglobin A1C 4.8 % (4.5-5.6)
[2021-09-30 08:38] LABS: BUN Creatinine Ratio 12.4 (10-20); Calcium 9.7 mg/dl (8.5-10.1); Chol HDL Ratio 3.4 (0-5); Creatinine Clr Calc Pharmacy 101.1 ml/min; Est GFR (African American) 97.5 ml/min; Est GFR (Non-African American) 84.1 ml/min; Magnesium 1.9 mg/dl (1.7-2.4); Phosphorus 1.7 mg/dl (2.5-4.9); Potassium 4.2 mmol/L (3.5-5.1)
[2021-09-30] MEDS: CHOLECALCIFEROL 5,000 UNITS 125 MCG TAB PO SCH (09:00)
[2021-09-30] MEDS ORDERED: POTASSIUM PHOS 3 MMOL/1 ML INFUSION IV STA (09:34)
--- NOTE | 2021-09-30 09:42 | Hospitalist Progress Note ---
Date of Service September 30, 2021 Assessment & Plan (1) Generalized weakness: Plan: 45yo male with a history of multiple sclerosis, left leg DVT, hypercalcemia due to primary hyperparathyroidism, bowel incontinence, and depression presents with a two-day history of weakness, mild nausea, and one episode of bowel incontinence, all consistent with patient's prior MS flares. Multiple sclerosis flare Symptoms consistent with multiple sclerosis flare given few other symptoms beyond weakness and patient noting this episode is similar to prior MS flares; labs not suggestive of infection No imaging indicated at this time. Deferring neurology consult Continue methylprednisolone 1000mg IV daily- day 2/3. Anticipate discharge upon completion of steroid course tomorrow Trend daily CBC, BMP while on steroid treatment Hypophosphatemia and hypercalcemia in setting of hyperparathyroidism Labs done in April at [facility] were notable for hypercalcemia (12.0) and hyperparathyroidism (184.7) Patient was scheduled to have a parathyroidectomy though this was canceled due to pandemic-related delays Repleting PO4 as needed- PO4 1.7 today, repleting Trend BMP, ionized Ca, serum phosphate Recommend PCP follow-up for reconsideration of elective parathyroidectomy Bowel incontinence Secondary to MS; patient has 10+ year history of bowel incontinence which started around the time of his MS diagnosis Per patient, would like to avoid antispasmodics as they make his bowel incontinence worse (only uses his as-needed tizanidine 1-2 times per week) Has appeared to resolve after steroids started Consider stool culture with C. diff if symptoms worsen Headache Acetaminophen 1000mg q8h prn pain Of note, patient requests NO escalation of pain meds beyond acetaminophen History of DVT Signs/symptoms not suggestive of DVT/PE at this time Continue home Eliquis Depression Continue home Prozac FEN: regular diet Code status: full code DVT ppx: home Eliquis PT/OT: ordered, evaluation pending Dispo: med/surg (2) Multiple sclerosis: (3) Primary hyperparathyroidism: (4) Stool incontinence: (5) Chronic deep vein thrombosis (DVT) of distal vein of left lower extremity: (6) Serum calcium elevated: (7) Hypophosphatemia: Admission and Anticipated Discharge Date Admission Date: September 29, 2021 Supervising Physician Co-Signing Physician Notes I also saw the patient and confirmed toribio portions of the history and exam. I agree with the impression and plan as noted in the resident documentation. Patient reports improvement in his symptoms; feeling better overall. VS as noted, slightly hypertensive and tachycardic, likely secondary to steroids. Calcium improved, 11.5 to 9.7 Sdiuim 136, potassium 4.2 BUN 13, Cr 1.05 Generalized weakness, improved Hyperparathyroidism with hypercalcemia Continue IV steroids Trend BMP Parathyroidectomy was planned but canceled by pandemic, may be time to reconsider Else per resident documentation Subjective No acute events overnight. Pt reports feeling much better from admission since his steroid treatment began. Denies any further bowel incontinence, states his weakness has improved somewhat. Denies any headache, chest pain, numbness or other acute complaints. Review of Systems Review of Systems: Per Subjective Physical Exam Physical Exam: Constitutional: well-appearing, no acute distress HEENT: NCAT, PERRLA, EOMI, no conjunctival injection, moist mucous membranes CV: regular rhythm, no murmur appreciated, extremities well-perfused, no LE edema Resp: CTAB, no wheezes/rales/rhonchi appreciated, no increased work of breathing GI: soft, nondistended, nontender Skin: warm, dry, no rash appreciated Neuro: grossly alert and oriented, RUE and RLE strength 5/5, LUE strength 3/5, LLE strength 0/5, reduced sensation on L > R UE and LE, no additional focal motor or sensory deficits appreciated Results & Data Results & Data ([facility]) Vital Signs (Past 12 Hours) Vital Signs Temp Pulse Pulse Pulse Resp BP BP 09/30/21 07:38 36.3 C L 62 16 127/74 09/30/21 01:00 09/30/21 01:00 36.7 C 71 18 141/82 H 09/30/21 00:37 36.7 C 71 18 141/82 H 09/29/21 23:59 76 18 118/80 09/29/21 22:30 93 H 22 133/86 09/29/21 22:00 80 22 129/76 Pulse Ox O2 Del Method 09/30/21 07:38 95 Room Air 09/30/21 01:00 Room Air 09/30/21 01:00 99 Room Air 09/30/21 00:37 99 Room Air 09/29/21 23:59 98 Room Air 09/29/21 22:30 97 09/29/21 22:00 96 Resident Activity Tracking Resident Involvement: Resident Care Provided Care Provided: Adult Hospital Medicine
[2021-09-30] MEDS ORDERED: POTASSIUM PHOSPHATE 21 MMOL in DEXTROSE 5% 500 ML IV ONE (09:45)
--- NOTE | 2021-09-30 12:31 | Electrocardiogram Report ---
Test Reason : Blood Pressure : / mmHG Vent. Rate : 094 BPM Atrial Rate : 094 BPM P-R Int : 162 ms QRS Dur : 094 ms QT Int : 342 ms P-R-T Axes : 050 002 049 degrees QTc Int : 427 ms Normal sinus rhythm Incomplete right bundle branch block Cannot rule out Anterior infarct (cited on or before 29-SEP-2021) Abnormal ECG Confirmed by Law Recinos ([id number]) on 09/30/2021 12:31:33 PM Referred By: REFERRED SELF Confirmed By:Camilo Recinos
[2021-09-30] MEDS: ACETAMINOPHEN 500 MG TAB PO PRN ×2 (13:12→22:34)
[2021-09-30] MEDS ORDERED: methylPREDNISolone 1,000 MG in DEXTROSE 5% 250 ML IV SCH (21:00)
--- NOTE | 2021-10-01 07:20 | Discharge Summary ---
Date of Service October 01, 2021 Admission HPI Per Admitting Provider 45yo male with a history of multiple sclerosis, left leg DVT, vitamin D deficiency, hypercalcemia secondary to hyperparathyroidism, bowel incontinence, and depression presents with a two-day history of weakness, mild nausea, and one episode of bowel incontinence. Also notes a mild dull frontal headache and mild lightheadedness. Notes one episode of bowel incontinence last night, but also notes this has been an intermittent issue since he was diagnosed with MS about ten years ago. Patient is typically able to make it to the restroom in time but the episode of incontinence occurred while he was asleep. Patient says his symptoms feel very similar to prior MS flares. Denies fever, chills, congestion, sore throat, cough, CP, SOB, vomiting, abdominal pain, dysuria, hematuria, pain with bowel movements, hematochezia, melena, vertigo, or other symptoms. No recent illnesses. Denies alcohol or nicotine product use. Patient lives with his father though he is not always able to help take care of patient, and so patient has a drum puller that comes in most days each week. Upon arrival to [facility], vitals were notable for mild hypertension, mild tachycardia (101) which has since improved; no tachypneia, patient afebrile, SpO2 adequate on room air. Labs were notable for hypercalcemia (11.5) and hypophosphatemia (1.3). No luekocytosis, anemia, thrombocytopenia/thrombocytosis, creatinine not elevated, magnesium wnl, LFTs not elevated, TSH wnl. In the ED, patient received NSS bolus 1L (x2), solumedrol 1000mg IV (x1), potassium phosphate PO 2 tabs (x1), potassium phosphate 15mmol IV (x1), zofran, and acetaminophen. Patient notes his symptoms have improved since arrival. Surrogate decision maker in case of an emergency: Eric Ramirez (patient's father - cell: [phone]) Admission Exam Per Admitting Provider Constitutional: well-appearing, no acute distress HEENT: NCAT, no conjunctival injection, MMM CV: regular rhythm, no murmur appreciated, extremities well-perfused, no LE edema Resp: CTABL, no wheezes/rales/rhonchi appreciated, no increased work of breathing GI: soft, nondistended, nontender, BS normoactive MSK: no calf tenderness, no flank tenderness Skin: warm, dry, no rash appreciated Neuro: alert, oriented, RUE and RLE strength 5/5, LUE strength 3/5, LLE strength 0/5, no additional focal deficit appreciated Principal Diagnosis Multiple sclerosis flare Discharge Exam Constitutional: well-appearing, no acute distress HEENT: NCAT, PERRLA, EOMI, no conjunctival injection, moist mucous membranes CV: regular rhythm, no murmur appreciated, extremities well-perfused, no LE edema Resp: CTAB, no wheezes/rales/rhonchi appreciated, no increased work of breathing GI: soft, nondistended, nontender Skin: warm, dry, no rash appreciated Neuro: grossly alert and oriented, RUE and RLE strength 5/5, LUE strength 3/5, LLE strength 0/5, reduced sensation on L > R UE and LE, no additional focal motor or sensory deficits appreciated Discharge Data Allergies Allergy/AdvReac Type Severity Reaction Status Date / Time aspirin Allergy Severe airway Verified 05/19/21 09:00 edema; hives Consultations 09/29/21 21:51 ED Decision to Admit Stat Hospital Course (1) Generalized weakness: 45yo male with a history of multiple sclerosis, left leg DVT, hypercalcemia due to primary hyperparathyroidism, bowel incontinence, and depression presents with a two-day history of weakness, mild nausea, and one episode of bowel incontinence, all consistent with patient's prior MS flares. Multiple sclerosis flare Symptoms consistent with multiple sclerosis flare given few other symptoms beyond weakness and patient noting this episode is similar to prior MS flares; labs not suggestive of infection No imaging done during stay Completed methylprednisolone 1000mg IV- day 05/02. Discharged on prednisone taper- 12 days- and f/u with neurology in 10/2021 Hypophosphatemia and hypercalcemia in setting of hyperparathyroidism Labs done in April at [facility] were notable for hypercalcemia (12.0) and hyperparathyroidism (184.7) Patient was scheduled to have a parathyroidectomy though this was canceled due to pandemic-related delays Repleting PO4 as needed- PO4 1.9 today on day of discharge, repleted once more Recommend checking BMP, ionized Ca, phosphorus at f/u visit Recommend PCP follow-up for reconsideration of elective parathyroidectomy Bowel incontinence Secondary to MS; patient has 10+ year history of bowel incontinence which started around the time of his MS diagnosis Per patient, would like to avoid antispasmodics as they make his bowel incontinence worse (only uses his as-needed tizanidine 1-2 times per week) Has appeared to resolve after steroids started Headache Acetaminophen 1000mg q8h prn pain was effective for pain relief History of DVT Signs/symptoms not suggestive of DVT/PE at this time Continued home Eliquis Depression Continued home Prozac (2) Multiple sclerosis: (3) Primary hyperparathyroidism: (4) Stool incontinence: (5) Chronic deep vein thrombosis (DVT) of distal vein of left lower extremity: (6) Serum calcium elevated: (7) Hypophosphatemia: Total Time Total Time Spent Total Time Spent (In Minutes): <30 Discharge Plan Discharge Items Patient Disposition: Home - Self-Care Reason For Visit: WEAKNESS Discharge Diagnosis: Multiple sclerosis flare Activity: Resume your previous activity Non-emergency contact: Primary Care Provider and Neurologist Call non-emergency contact if: you have any medication questions and your symptoms worsen Follow-up/Referrals: Louis Hale [Primary Care Provider] - 10/09/21 12:50 pm Diet: Regular Addtl Attending Provider Instructions: You were admitted to the hospital for a flare of multiple sclerosis. You were treated with IV steroids. Please continue to take prednisone after discharge in order to successfully taper the steroids. Prednisone 60 mg for 4 days Then prednisone 40 mg for 4 days Lastly prednisone 20 mg for 4 days Prednisone comes in 20 mg tablets. So please take 3, 2 and 1 tablets to get the 60, 40 and 20 mg doses. Please follow up with your PCP in September prior to your neurology appointment in October. Pending Studies at Discharge: No Stand-Alone Forms: My [facility] [id number], Smoking Cessation Medications and DC Order Prescriptions: New prednisone 20 mg tablet 20 mg PO DAILY Qty: 24 0RF Rx Instructions: Please take 60 mg (3 tablets) daily for 4 days. Then take 40 mg (2 tablets) daily for 4 days. Then take 20 mg (1 tablet) daily for 4 days. Continued furosemide 20 mg tablet 20 mg PO DAILY fluoxetine [Prozac] 10 mg capsule 10 mg PO QAM Eliquis 5 mg (74 tabs) tablets,dose pack 5 mg PO BID tizanidine 2 mg tablet 2 mg Q8H PRN (Reason: muscle spasms) Discharge Orders: Discharge Order (Routine); Ordered 10/01/21 Ordered By: Ivonne Tapia Admission Data Admit Date/Time: 09/29/21 22:38 Attending Provider: Dayo Anderson Admit Provider: Jose Guadalupe Metzger Primary Care Provider: Louis Hale Other Providers: Loulou Arzola ; [facility] Other Interventions: Discharge Summary Assessment (RN) Last Done: 10/01/21 11:36 Supervising Physician Co-Signing Physician Notes I personally examined the patient and verified all toribio points of history and exam, discussed case, and agree with decision making with Dr Tapia feeling better feeling up to getting home vitals noted nad heent nc at mmm breathing unlabored MS flare - stable for home. outpt PCP and neuro follow up otherwise as above Resident Activity Tracking Resident Involvement: Resident Care Provided Care Provided: Adult Hospital Medicine
[2021-10-01 07:22] LABS: Hematocrit (blood only) 44.7 % (40.1-51.0); Mean Corpuscular Hemoglobin 31.8 pg (25.0-34.0); Mean Corpuscular Hgb Conc 33.6 g/dL (32.0-36.0); Mean Corpuscular Volume 94.7 fL (80.0-100.0); Mean Platelet Volume 10.1 fL (9.4-12.4); Platelet Count 244 K/uL (130-400); RDW Coefficient of Variation 12.1 % (11.5-14.5); RDW Standard Deviation 42.4 fL (36.4-46.3); Red Blood Count 4.72 M/uL (4.63-6.08); White Blood Count 17.07 K/ul (4.8-10.8)
[2021-10-01 07:38] LABS: BUN Creatinine Ratio 13.4 (10-20); Calcium 10.3 mg/dl (8.5-10.1); Creatinine Clr Calc Pharmacy 79.2 ml/min; Est GFR (African American) 72.6 ml/min; Est GFR (Non-African American) 62.6 ml/min; Magnesium 1.9 mg/dl (1.7-2.4); Phosphorus 1.9 mg/dl (2.5-4.9)
[2021-10-01] MEDS: ACETAMINOPHEN 500 MG TAB PO PRN (07:46)
[2021-10-01] MEDS: CHOLECALCIFEROL 5,000 UNITS 125 MCG TAB PO SCH (07:47)
[2021-10-01] MEDS: APIXABAN 5 MG TABLET PO SCH (07:47)
[2021-10-01] MEDS: FLUoxetine HCL 10 MG CAP PO SCH (07:47)
[2021-10-01] MEDS: FUROSEMIDE 20 MG TAB PO SCH (07:47)
[2021-10-01] MEDS ORDERED: methylPREDNISolone 1,000 MG in DEXTROSE 5% 250 ML IV ONE (10:30)
--- NOTE | 2021-10-01 14:03 | Billing Data ---
Date of Service October 01, 2021 Coding Level of Care Code 11467 OBS Care - Discharge
--- NOTE | 2021-10-01 19:20 | Billing Data ---
Date of Service October 01, 2021 Coding Level of Care Code 46065 OBS Care - Discharge
== END 2021-10-01 17:15 | disposition home or self-care (01) ==
LOC: 3W 18:36 → ED 18:36 → SUATTDRO 22:38 → 3W 23:59

== ENCOUNTER 2021-10-05 22:01 | Observation (INO) ==
[2021-10-06 00:27] LABS: Appearance Urine Clear (Clear); Bacteria Urine Automated Negative (Negative); Bilirubin Urine Negative (Negative); Blood Urine Trace (Negative); Cast Urine Automated 0 /lpf (0-5); Color Urine Yellow; Epithelial Cell Urine Auto 0-5 /lpf (0-5); Glucose Urine UA Negative (Negative); Ketones Urine Negative (Negative); Leukocyte Esterase Urine Negative (Negative); Nitrite Urine Negative (Negative); Protein Urine Negative (Negative); RBC Urine Automated 0-4 /hpf (0-4); Specific Gravity Urine 1.008 (1.000-1.030); Urobilinogen Urine Negative (Negative)
[2021-10-06] MEDS: SODIUM CHLORIDE 0.9% 1000ML 1,000 ML IV SCH ×3 (00:27→10:24)
[2021-10-06 00:29] LABS: Hematocrit (blood only) 47.5 % (40.1-51.0); Hemoglobin 16.4 g/dl (14.0-18.0); Mean Corpuscular Hgb Conc 34.5 g/dL (32.0-36.0); Mean Corpuscular Volume 92.8 fL (80.0-100.0); Mean Platelet Volume 10.1 fL (9.4-12.4); Platelet Count 238 K/uL (130-400); RDW Coefficient of Variation 11.9 % (11.5-14.5); RDW Standard Deviation 41.3 fL (36.4-46.3); Red Blood Count 5.12 M/uL (4.63-6.08); White Blood Count 12.25 K/ul (4.8-10.8)
[2021-10-06 00:40] LABS: INR 0.9 (0.9-1.1); Partial Thromboplastin Ratio 0.8; Prothrombin Time 9.7 Seconds (9.0-12.0)
[2021-10-06 00:48] LABS: BUN Creatinine Ratio 14.8 (10-20); Calcium 11.3 mg/dl (8.5-10.1); Creatinine Clr Calc Pharmacy 92.3 ml/min; Est GFR (African American) 87.3 ml/min; Est GFR (Non-African American) 75.4 ml/min; Potassium 4.4 mmol/L (3.5-5.1)
[2021-10-06 00:50] LABS: Basophils # (auto) 0.02 K/uL (0-0.2); Basophils % (auto) 0.2 %; Eosinophils # (auto) 0.01 K/uL (0-0.50); Eosinophils % (auto) 0.1 %; Immature Granulocytes # (auto) 0.17 K/uL (0.00-0.02); Immature Granulocytes % (auto) 1.4 %; Lymphocytes # (auto) 0.59 K/uL (1.2-3.4); Lymphocytes % (auto) 4.8 %; Monocytes % (auto) 1.6 %; Neutrophils # (auto) 11.26 K/uL (1.4-6.5); Neutrophils % (auto) 91.9 %
[2021-10-06 00:56] LABS: Albumin Globulin Ratio 1.7 (0.9-2); Albumin Level 4.1 gm/dl (3.4-5.0); Bilirubin,Total 0.4 mg/dl (0.2-1.0); Globulin 2.4 gm/dl (2.5-4.0); Magnesium 2.4 mg/dl (1.7-2.4); Phosphorus 1.4 mg/dl (2.5-4.9); Total Protein 6.5 gm/dl (6.0-8.3)
--- NOTE | 2021-10-06 02:15 | History & Physical Report ---
Date of Service October 06, 2021 Assessment & Plan (1) Ambulatory dysfunction: Plan: 45 year old male w/ multiple sclerosis, primary hyperparathyroidism, chronic DVT, stool incontinence, who presents brought in by EMS from home for ambulatory decline since the afternoon. - may be 2/2 hypophosphatemia. treating as per below. less likely from exac of MS as he completed high dose pulse methylpred 1 week ago. Lower suspicion for GI/diarrheal illness as primary cause. - PT and OT evals (2) Serum calcium elevated: Plan: 2/2 presumed primary hyperparathyroidism. - NSS 250mL/hr x 2 bags. Consider Cinacalcet. Replete gently w/ PO phos. - ordered ecg to check for changes (3) Primary hyperparathyroidism: Plan: Chronic. PTH 184.7 on 05/30/21 ([facility]). Has been persistently elevated since at least 2018. PTH-related protein in past was low; less likely malignancy etiology. - Replete phos cautiously as may increase risk of kidney stones. 2 tabs of PO Phospha 250 neutral x5 doses for 1 day. Starting Cinacalcet. Continue daily vit D supplementation as level was <4 in 04/2021. Recheck vit D level. - thyroid US to r/o parathyroid adenoma as patient would potentitally be surgical candidate (4) Hypophosphatemia: Plan: See above. (5) Multiple sclerosis: Plan: Chronic, w/ LLE weakness since 2009. Wheelchairbound. S/p 3 days of 1g methylpred pulse dose at last admission. Follows [facility] Neuro, has appointment next month. Encourage patient to discuss MS medications. He was on Ocrevu in past w/ good relief of symptoms. - continue steroid taper, currently at 40mg prednisone daily. (6) Chronic deep vein thrombosis (DVT) of distal vein of left lower extremity: Plan: Continue home Eliquis. Plan Diet, fluids: regular diet. NSS 250/hr; tentative stop 5pm of 10/06/21. anticoag: Eliquis code: full dispo: med/surg History of Present Illness Chief Complaint: ambulatory dysfunction Primary Care Provider: Louis Hale 45 year old male w/ multiple sclerosis, primary hyperparathyroidism, chronic DVT, stool incontinence, who presents brought in by EMS from home for ambulatory decline. This was new vs the previous days as he had tolerated home PT and felt good after leaving the hospital. He was recently admitted to [facility] from 09/29/21- 10/01/21 for MS flare and was treated w/ 3 days of 1g IV methylpred. He states he has MS flares a few times a year. Follows Dr. Orozco neuro at [facility]. Was on Ocrevus 1-2 years ago. Considering getting back on. Stool incontinence at baseline, no new worsening. Denies dysuria. States was tolerating the 3x/wk home PT. Denies constipation. Loose stools just today. He feel weak, run down, and has had loose stool. Symptoms started noon 10/05/21. He has had lightheadedness and dizzy today. ED course: NSS 250mL/hr. VSS. wbc 12.25, on corticosteroids. Na, K wnl. Cr 1.15. Ca 11.3 (albumin 4.1). Phos 1.4. Mag 2.4 Allergies Allergy/AdvReac Type Severity Reaction Status Date / Time aspirin Allergy Severe airway Verified 10/05/21 23:45 edema; hives Home Medications Medication Instructions Recorded Confirmed Type fluoxetine 10 mg capsule (Prozac) 10 mg PO QAM 09/11/20 10/05/21 History tizanidine 2 mg tablet 2 mg PO Q8H PRN muscle spasms 09/29/21 10/05/21 History apixaban 5 mg tablet (Eliquis) 5 mg PO BID 10/05/21 10/05/21 History cholecalciferol (vitamin D3) 25 25 mcg PO DAILY 10/05/21 10/05/21 History mcg (1,000 unit) capsule (Vitamin D3) prednisone 20 mg tablet See Rx Instructions .Route .COMPLEX 10/05/21 10/05/21 History Past Med/Surg History Medical History Chronic pain syndrome H/O poor personal hygiene Hypercalcemia Left leg pain Multiple sclerosis Obstructive uropathy 2/2 renal stone, caused RUBI, pt admitted for this and hypercalcemia 05/2018 Primary hyperparathyroidism Seizure disorder Many years ago may have had single episode, pt was never treated for this, no reoccurrence. Weakness Surgical History History of cystoscopy WITH STENT PLACEMENT 06/14/18 [facility] Family History Father Stroke Thyroid disorder Other Hypertension Kidney stones Social History Smoking Status: Never smoker Tobacco Type: Smokeless Tobacco (Dip or Chew) Cigarettes Per Day: 0; Second Hand Exposure: Yes (family); Hx Alcohol Use: Yes Alcohol type: beer Hx Substance Use: No Preferred Language: Yoruba Communication Ability: Effective Heat Treatment Technician Required: No Beliefs That Will Affect Care: None marital status: Current Living Situation: Parent Current Living Situation Comment: Patient states he must do all of his own self care current occupational status: disabled How many Children do You have: 2 Other Information That Helps Us Care for You: No Feels Safe at Home: Yes Safety Concerns: Feels Safe At This Time Assistive Devices: Brace/Splint/Immobilizer and Wheelchair Assistive Devices Comment: Left leg braces Immunizations: 2 beers a week. wheelchair bound. Staying w/ father. Review of Systems Review of Systems: All systems reviewed & are unremarkable except as noted in HPI & below Physical Exam Physical Exam: General: A&Ox4. NAD. Cooperative. Conversational. HEENT: Atraumatic, normocephalic. EOMI Pulm: CTAB. -wheezes, -rales, -rhonchi. No respiratory distress. Cardiac: RRR, -mrg. Radial pulses intact and symmetrical. Abdominal: Nontender, nondistended, soft. Integ: Warm, dry, intact. Neuro: LUE has slightly reduced soap grinder strength 3/5. LLE has 0/5 strength, chronic. Sensation of LUE and LLE decreased/delayed vs right. Results & Data Results & Data ([facility]) Vital Signs (Past 12 Hours) Vital Signs Temp Pulse Resp BP Pulse Ox O2 Del Method 10/06/21 01:00 89 18 135/84 96 Room Air 10/06/21 00:01 85 19 142/115 H 96 Room Air 10/05/21 23:00 75 19 165/111 H 96 Room Air 10/05/21 22:24 Room Air 10/05/21 22:17 36.9 C 91 H 10 L 170/103 H 97 Room Air Laboratory Results Cardiac Enzymes 10/06/21 Range/Units 00:13 AST 19 (13-39) U/L Coagulation 10/06/21 Range/Units 00:13 PT 9.7 (9.0-12.0) Seconds APTT 22.0 (21.0-31.0) Seconds CBC 10/06/21 Range/Units 00:13 WBC 12.25 H (4.8-10.8) K/ul RBC 5.12 (4.63-6.08) M/uL Hgb 16.4 (14.0-18.0) g/dl Hct 47.5 (40.1-51.0) % Plt Count 238 (130-400) K/uL Neut # (Auto) 11.26 H (1.4-6.5) K/uL Lymph # (Auto) 0.59 L (1.2-3.4) K/uL [place] # (Auto) 0.20 L (0.24-0.82) K/uL Eos # (Auto) 0.01 (0-0.50) K/uL Baso # (Auto) 0.02 (0-0.2) K/uL Comprehensive Metabolic Panel 10/06/21 Range/Units 00:13 Sodium 136 (136-145) mmol/L Potassium 4.4 (3.5-5.1) mmol/L Chloride 106 (98-107) mmol/L Carbon Dioxide 23 (21-32) mmol/L BUN 17 (6-23) mg/dl Creatinine 1.15 (0.6-1.4) mg/dl Glucose 113 H (70-99(Fasting)) mg/dl Calcium 11.3 H (8.5-10.1) mg/dl AST 19 (13-39) U/L ALT 35 (7-52) U/L Alkaline Phosphatase 57 (34-104) U/L Total Protein 6.5 (6.0-8.3) gm/dl Albumin 4.1 (3.4-5.0) gm/dl Intake and Output 10/05/21 10/05/21 10/06/21 14:59 22:59 06:59 Other: Weight 87.3 kg Weight Measurement Method Built in Bedscale Patient Weight 10/06/21 06:59 Weight 87.3 kg Diagnostic Findings no imaging ordered ECG Additional Comments: ordered, pending Code Status & VTE Plan Code Status full VTE Prophylaxis Plan VTE Prophylaxis will be ordered: Yes Supervising Physician Co-Signing Physician Notes Attending addendum: I have physically seen this patient, have supervised the medical residents ac tivities, and agree with the H&P unless as otherwise noted. Assessment and Plan: Multiple sclerosis/ambulatory dysfunction- Patient reports he woke up in a soiled himself Cleaned in the ED Wheelchair-bound Follows with [facility] neurology Consult [facility] neurology for any other suggestions Had completed 3 days of methylprednisolone 1 g IV daily at last admission Continue current prednisone taper No stress testing at this time Primary hyperparathyroidism- Calcium increased to 11.3 and phosphorus decreased to 1.4 Interventions as noted with single set, IV fluids and management of calcium p hosphorus as noted Patient reportedly was being considered for surgery, however, has been delayed due to the COVID-19 pandemic Chronic DVT left lower extremity- Continue Eliquis Remaining orders and notations as noted Resident Activity Tracking Resident Involvement: Resident Care Provided Care Provided: Adult Hospital Medicine
[2021-10-06] MEDS ORDERED: ACETAMINOPHEN 325 MG TAB PO STA (03:31)
[2021-10-06] MEDS ORDERED: POT PHOSPHATE MONOBASIC W/ SOD TAB PO STA (05:13)
[2021-10-06 05:52] LABS: Hematocrit (blood only) 44.1 % (40.1-51.0); Mean Corpuscular Hemoglobin 31.9 pg (25.0-34.0); Mean Corpuscular Volume 93.8 fL (80.0-100.0); Mean Platelet Volume 10.1 fL (9.4-12.4); Platelet Count 240 K/uL (130-400); RDW Coefficient of Variation 11.9 % (11.5-14.5); RDW Standard Deviation 41.5 fL (36.4-46.3); White Blood Count 11.37 K/ul (4.8-10.8)
[2021-10-06 06:14] LABS: Albumin Globulin Ratio 1.6 (0.9-2); Albumin Level 3.6 gm/dl (3.4-5.0); BUN Creatinine Ratio 15.5 (10-20); Bilirubin,Total 0.4 mg/dl (0.2-1.0); Calcium 10.1 mg/dl (8.5-10.1); Creatinine Clr Calc Pharmacy 96.5 ml/min; Est GFR (African American) 92.2 ml/min; Est GFR (Non-African American) 79.5 ml/min; Globulin 2.3 gm/dl (2.5-4.0); Magnesium 2.2 mg/dl (1.7-2.4); Phosphorus 2.3 mg/dl (2.5-4.9); Potassium 4.5 mmol/L (3.5-5.1); Total Protein 5.9 gm/dl (6.0-8.3)
--- NOTE | 2021-10-06 09:22 | Electrocardiogram Report ---
Test Reason : Blood Pressure : / mmHG Vent. Rate : 068 BPM Atrial Rate : 068 BPM P-R Int : 164 ms QRS Dur : 086 ms QT Int : 388 ms P-R-T Axes : 043 006 030 degrees QTc Int : 412 ms Normal sinus rhythm Normal ECG When compared with ECG of 29-SEP-2021 19:27, No significant change Confirmed by Edin Schwartz ([id number]) on 10/06/2021 9:22:03 AM Referred By: REFERRED SELF Confirmed By:Edin Schwartz
[2021-10-06] MEDS ORDERED: POT PHOSPHATE MONOBASIC W/ SOD TAB PO SCH (09:30)
--- NOTE | 2021-10-06 10:07 | Hospitalist Progress Note ---
Date of Service October 06, 2021 Assessment & Plan (1) Ambulatory dysfunction: Plan: 45 year old male w/ multiple sclerosis, primary hyperparathyroidism, chronic DVT, stool incontinence, who presents brought in by EMS from home for ambulatory dysfunction. - Likely multifactorial- chronic weakness from multiple sclerosis and electrolyte imbalances secondary to primary hyperparathyroidism, recent acute MS flare with 4 days removed from high dose IV steroid therapy - Will likely improve with supportive care, I do not suspect an acute process underlying his weakness - PT/OT ordered (2) Primary hyperparathyroidism: Plan: -Chronic. PTH 184.7 in 04/2021, persistent elevation since 2018 -Phosphorus 2.3 on admission, repleting -Calcium 10.1, ionized Ca 1.39 on admission. IVF given, Cinacalcet initiated -EKG wnl -Continue vitamin D supplementation as inpatient -Vitamin D level 19.7 on admission -Trend BMP, Phosphorus, ionized Ca (3) Multiple sclerosis: Plan: -Chronic, w/ LLE weakness since 2009, wheelchair bound -Follows with [facility] neurology, appointment in 10/2021 -Completed 1 mg Solumedrol course 09/29 - 10/01 on last admission -Continue steroid taper at present, prednisone 40 mg daily (10/06 - 10/09) (4) Chronic deep vein thrombosis (DVT) of distal vein of left lower extremity: Plan: Continue home Eliquis. Plan Diet: regular DVT prophylaxis: Eliquis code: full dispo: medical/surgical Admission and Anticipated Discharge Date Admission Date: October 06, 2021 Supervising Physician Co-Signing Physician Notes I personally examined the patient and verified all toribio points of history and exam, discussed case, and agree with decision making with Dr Tapia. seen in f/u from early AM admit feels like he's probably feeling a bit better hypophos - replace weakness - multifactorial but hopefully will improve w lyte replacement otherwise as above Subjective No acute events overnight. Pt reports still feeling generalized weakness that's greatest in LLE, did have some loose stools. Denies any other acute complaints. Review of Systems Review of Systems: Per subjective Physical Exam Physical Exam: Constitutional: well-appearing, no acute distress HEENT: NCAT, PERRLA, EOMI, no conjunctival injection, moist mucous membranes CV: regular rhythm, no murmur appreciated, extremities well-perfused, no LE edema Resp: CTAB, no wheezes/rales/rhonchi appreciated, no increased work of breathing GI: soft, nondistended, nontender Skin: warm, dry, no rash appreciated Neuro: grossly alert and oriented, RUE and RLE strength 5/5, LUE strength 3/5, LLE strength 0/5, reduced sensation on L > R UE and LE, no additional focal motor or sensory deficits appreciated Results & Data Results & Data ([facility]) Vital Signs (Past 12 Hours) Vital Signs Temp Pulse Pulse Resp BP BP Pulse Ox 10/06/21 08:40 36.3 C L 69 16 133/77 97 10/06/21 07:00 96 10/06/21 07:00 117/81 10/06/21 06:00 97 10/06/21 06:00 125/90 10/06/21 05:30 96 10/06/21 05:01 109/78 96 10/06/21 04:45 133/78 97 10/06/21 03:00 98 H 19 130/78 99 10/06/21 02:01 88 16 134/67 99 10/06/21 01:00 89 18 135/84 96 10/06/21 00:01 85 19 142/115 H 96 10/05/21 23:00 75 19 165/111 H 96 10/05/21 22:24 10/05/21 22:17 36.9 C 91 H 10 L 170/103 H 97 O2 Del Method 10/06/21 08:40 Room Air 10/06/21 07:00 10/06/21 07:00 10/06/21 06:00 10/06/21 06:00 10/06/21 05:30 10/06/21 05:01 10/06/21 04:45 10/06/21 03:00 Room Air 10/06/21 02:01 Room Air 10/06/21 01:00 Room Air 10/06/21 00:01 Room Air 10/05/21 23:00 Room Air 10/05/21 22:24 Room Air 10/05/21 22:17 Room Air Resident Activity Tracking Resident Involvement: Resident Care Provided Care Provided: Adult Hospital Medicine
[2021-10-06] MEDS ORDERED: ERGOCALCIFEROL 50,000 UNITS 1250 MCG CAP PO ONE (10:15)
[2021-10-06] MEDS: predniSONE 20 MG TAB PO SCH (10:20)
[2021-10-06] MEDS: FLUoxetine HCL 10 MG CAP PO SCH (10:20)
[2021-10-06] MEDS: CINACALCET HCL 30 MG TAB PO SCH ×2 (10:21→20:05)
[2021-10-06] MEDS: APIXABAN 5 MG TABLET PO SCH ×2 (10:21→20:05)
[2021-10-06 15:58] LABS: Albumin Globulin Ratio 1.5 (0.9-2); Albumin Level 3.5 gm/dl (3.4-5.0); BUN Creatinine Ratio 12.3 (10-20); Bilirubin,Total 0.3 mg/dl (0.2-1.0); Calcium 9.2 mg/dl (8.5-10.1); Creatinine Clr Calc Pharmacy 62.1 ml/min; Est GFR (African American) 54.1 ml/min; Est GFR (Non-African American) 46.6 ml/min; Globulin 2.4 gm/dl (2.5-4.0); Phosphorus 1.9 mg/dl (2.5-4.9); Potassium 3.9 mmol/L (3.5-5.1); Total Protein 5.9 gm/dl (6.0-8.3)
[2021-10-06] MEDS: ACETAMINOPHEN 500 MG TAB PO PRN (17:32)
--- NOTE | 2021-10-06 20:13 | Billing Data ---
Date of Service October 06, 2021 Coding Level of Care Code 94512 Initial Inpt Care Lvl 3
[2021-10-07] MEDS ORDERED: POTASSIUM PHOS 3 MMOL/1 ML INFUSION IV STA (07:08)
[2021-10-07] MEDS ORDERED: POTASSIUM PHOSPHATE 21 MMOL in SODIUM CHLORIDE 0.9% 500 ML IV ONE (07:15)
[2021-10-07] MEDS: SODIUM CHLORIDE 0.9% 1000ML 1,000 ML IV SCH ×2 (07:18→15:28)
[2021-10-07] MEDS: CHOLECALCIFEROL 5,000 UNITS 125 MCG TAB PO SCH (08:00)
[2021-10-07] MEDS: CINACALCET HCL 30 MG TAB PO SCH ×2 (08:00→20:47)
[2021-10-07] MEDS: predniSONE 20 MG TAB PO SCH (08:01)
[2021-10-07] MEDS: FLUoxetine HCL 10 MG CAP PO SCH (08:01)
[2021-10-07] MEDS: APIXABAN 5 MG TABLET PO SCH ×2 (08:02→20:47)
[2021-10-07 08:06] LABS: Hematocrit (blood only) 43.4 % (40.1-51.0); Hemoglobin 14.7 g/dl (14.0-18.0); Mean Corpuscular Hemoglobin 31.9 pg (25.0-34.0); Mean Corpuscular Hgb Conc 33.9 g/dL (32.0-36.0); Mean Corpuscular Volume 94.1 fL (80.0-100.0); Platelet Count 223 K/uL (130-400); RDW Standard Deviation 41.7 fL (36.4-46.3); Red Blood Count 4.61 M/uL (4.63-6.08); White Blood Count 12.54 K/ul (4.8-10.8)
[2021-10-07 08:25] LABS: BUN Creatinine Ratio 17.5 (10-20); Calcium 8.9 mg/dl (8.5-10.1); Creatinine Clr Calc Pharmacy 88.5 ml/min; Est GFR (Non-African American) 71.6 ml/min; Potassium 3.2 mmol/L (3.5-5.1)
[2021-10-07 08:54] LABS: Phosphorus 2.3 mg/dl (2.5-4.9)
[2021-10-07] MEDS ORDERED: ERGOCALCIFEROL 50,000 UNITS 1250 MCG CAP PO SCH (09:00)
--- NOTE | 2021-10-07 09:39 | Hospitalist Progress Note ---
Date of Service October 07, 2021 Assessment & Plan (1) Ambulatory dysfunction: Plan: 45 year old male w/ multiple sclerosis, primary hyperparathyroidism, chronic DVT, stool incontinence, who presents brought in by EMS from home for ambulatory dysfunction. - Likely multifactorial- chronic weakness from multiple sclerosis and electrolyte imbalances secondary to primary hyperparathyroidism, recent acute MS flare with 4 days removed from high dose IV steroid therapy - Will likely improve with supportive care, I do not suspect an acute process underlying his weakness - PT/OT ordered, evaluations pending - Pt would prefer d/c back to home with home PT/OT rather than rehab (2) Primary hyperparathyroidism: Plan: -Chronic. PTH 184.7 in 04/2021, persistent elevation since 2018 -Phosphorus 1.9 today, repleting -Calcium 10.1, ionized Ca 1.39 on admission. IVF given, Cinacalcet initiated- calcium 8.9 today -EKG wnl -Continue vitamin D supplementation as inpatient -Vitamin D level 19.7 on admission -Trend BMP, Phosphorus, ionized Ca (3) Multiple sclerosis: Plan: -Chronic, w/ LLE weakness since 2009, wheelchair bound -Follows with [facility] neurology, appointment in 10/2021 -Completed 1 mg Solumedrol course 09/29 - 10/01 on last admission -Continue steroid taper at present, prednisone 40 mg daily (10/06 - 10/09) -Neurology consulted (4) Acute kidney injury: Plan: -Cr 1.1 -> 1.7 since admission -Repleting with IVF -Trend BMP (5) Chronic deep vein thrombosis (DVT) of distal vein of left lower extremity: Plan: Continue home Eliquis. Plan Diet: regular DVT prophylaxis: Eliquis code: full dispo: medical/surgical Admission and Anticipated Discharge Date Admission Date: October 06, 2021 Supervising Physician Co-Signing Physician Notes I also saw the patient confirmed toribio portions of the history and physical examination. I agree with the impression plan as noted in the resident documentation. Upon our morning exam, the patient was semireclined in bed without new complaints. In general, he does feel better as opposed to admission but not at his baseline in terms of strength. Exam 136/86, 59, 16, 36.4, 96% on room air Alert and oriented. No complaints at present. Cardiovascular regular Respirations unlabored Data WBC 12.54, hemoglobin 14.7, platelet 223 Sodium 138, Tessman 3.2, chloride 110, BUN 21, creatinine 1.2 Calcium 10.1 on presentation, now 8.9 Phosphorus 2.3 upon admission, 1.9 upon repeat, 2.3 at present Impression Multiple sclerosis Hyperparathyroidism Generalized weakness secondary to combination of above Consult neurology Replete electrolytes; monitor Sensipar added Patient was pursuing plans for a parathyroidectomy in 2019 but this was postponed due to the onset of the pandemic; discussed with patient that may need to revisit this plan. Subjective No acute events overnight. Pt reports his weakness is improving, feels better than yesterday. Denies any other acute complaints. Does plan on following up with neurology in October to discuss restarting Ocrevus. Review of Systems Review of Systems: Per subjective Physical Exam Physical Exam: Constitutional: well-appearing, no acute distress HEENT: NCAT, PERRLA, EOMI, no conjunctival injection, moist mucous membranes CV: regular rhythm, no murmur appreciated, extremities well-perfused, no LE edema Resp: CTAB, no wheezes/rales/rhonchi appreciated, no increased work of breathing GI: soft, nondistended, nontender Skin: warm, dry, no rash appreciated Neuro: grossly alert and oriented, RUE and RLE strength 5/5, LUE strength 3/5, LLE strength 0/5, reduced sensation on L > R UE and LE, no additional focal motor or sensory deficits appreciated Results & Data Results & Data ([facility]) Vital Signs (Past 12 Hours) Vital Signs Temp Pulse Resp BP Pulse Ox O2 Del Method 10/07/21 08:16 36.4 C L 59 L 16 136/86 96 Room Air 10/06/21 22:06 36.7 C 80 16 153/86 H 95 Room Air Resident Activity Tracking Resident Involvement: Resident Care Provided Care Provided: Adult Hospital Medicine
--- NOTE | 2021-10-07 11:49 | Neurology Consultation ---
Date of Consultation October 07, 2021 Assessment & Plan (1) Demyelinating disease: (2) Multiple sclerosis: Plan 45-year-old male with a stated history of multiple sclerosis, diagnosed in 2009, presenting with left-sided weakness. In speaking with the patient, he has not had any relapses and he has been essentially wheelchair-bound for at least the past 7-8 years. He denies experiencing a significant decline in his overall functioning. Available imaging at [facility] has not demonstrated clear progression in his demyelinating disease. However, primary progressive or secondary progressive multiple sclerosis certainly not excluded. Another potential diagnosis here could be ADEM/acute disseminated encephalomyelitis. Patient does not think he has ever had a lumbar puncture completed. I would not recommend additional corticosteroids at this time as patient just completed a 3-day course of IV Solu-Medrol 1 week ago. I would recommend obtaining up-to-date MRIs of the brain, cervical, and thoracic spine. Studies should be done with and without gadolinium enhancement. Brain MRI should be done with MS protocol. Would also recommend lab evaluation for potential MS mimics, ESR, CRP, BRANDY 12, Sjogren's antibody evaluation, rheumatoid factor, lupus anticoagulant Would also consider obtaining a lumbar puncture with MS panel. I am uncertain about having this patient restart Ocrevus at this point in time given my reservations about his diagnosis. He should have an assessment with Dr. Terra Morgan at [facility] to assist in his diagnosis and management although he does cite logistical difficulties in making this appointment. Perhaps a telehealth appointment could be arranged as an alternative. Patient may continue to follow with the local [facility] neurology group as well. History of Present Illness Reason for Consultation: MS, possible flare Requesting Physician: Ivonne Tapia MD Attending Physician: Tunde Rothman DO History of Present Illness The patient is a 45-year-old male with a history of multiple sclerosis, diagnosed in 2009, presenting with left-sided weakness. He follows with [facility] neurology, was initially evaluated by Dr. Nielson. Treatments have included Betaseron, Copaxone, Tecfidera, and Ocrevus. He has not taken disease modifying therapy for a few years, last treatment was Ocrevus. The patient states that his left-sided weakness never really resolved ever since its onset in 2009. He denies a history of relapses and remissions. He denies a history of optic neuritis. No history of right-sided symptoms. 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 He has been confined to a wheelchair for the past 7 years. He does remark that his overall symptoms have not really progressed or changed. He is followed inconsistently with [facility] neurology and has not shown up for multiple follow-up appointments including an appointment with Dr. Terra Morgan, and MS specialist at [facility]. He was recently admitted to the [facility], from September 29 through October 01 for a presumed MS flare characterized by generalized weakness, but occurring in the context of mild hypertension, mild tachycardia, hypercalcemia, hypophosphatemia, hyperparathyroidism, chronic bowel incontinence, for which he received IV Solu- Medrol. He presented again to [facility], yesterday, for further evaluation and management of ambulatory decline. He remarks that he had been doing reasonably well after his recent discharge from the [facility] on October 01. He then began to notice lightheadedness, dizziness, and a feeling of generalized weakness. Current presentation felt to be potentially due to metabolic factors rather than an MS exacerbation. He has an elevated calcium, primary hyperparathyroidism, hypophosphatemia. History also notable for chronic deep vein thrombosis of the left lower extremity, on Eliquis. I note that he was seen by the [facility] neurology service this past April during an admission to the [facility] for generalized weakness in the context of what has been felt to be secondary progressive multiple sclerosis. He was treated with IV Solu-Medrol at that time as well. I see that he was also seen by the [facility] neurology service during an admission to the [facility] this past January for generalized weakness, also treated with intravenous corticosteroids. Patient's last set of MRIs completed at [facility] was done February 22, 2021. Brain MRI did reveal extensive white matter T2 hyperintense foci and cerebral cortical atrophy, not significantly changed compared with the previous study done in April 2020. A C-spine MRI did reveal increase in size and number of T2 hyperintense lesions throughout the cervical spinal cord compared with April 2020. No abnormal postcontrast enhancement, however. The thoracic spine MRI at that time revealed scattered T2 hyperintensities, most prominent at T6-T7, similar to prior examination. I did independently review these images I was able to appreciate the rather extensive, chronic, demyelinating lesions throughout the brain and spinal cord. However, I do not think the cervical spine MRI findings look significantly different compared with the prior study done in April 2020. Allergies Allergy/AdvReac Type Severity Reaction Status Date / Time aspirin Allergy Severe airway Verified 10/05/21 23:45 edema; hives Home Medications Medication Instructions Recorded Confirmed Type fluoxetine 10 mg capsule (Prozac) 10 mg PO QAM 09/11/20 10/05/21 History tizanidine 2 mg tablet 2 mg PO Q8H PRN muscle spasms 09/29/21 10/05/21 History apixaban 5 mg tablet (Eliquis) 5 mg PO BID 10/05/21 10/05/21 History cholecalciferol (vitamin D3) 25 25 mcg PO DAILY 10/05/21 10/05/21 History mcg (1,000 unit) capsule (Vitamin D3) prednisone 20 mg tablet See Rx Instructions .Route .COMPLEX 10/05/21 10/05/21 History Patient History Medical History Chronic pain syndrome H/O poor personal hygiene Hypercalcemia Left leg pain Multiple sclerosis Obstructive uropathy 2/2 renal stone, caused RUBI, pt admitted for this and hypercalcemia 05/2018 Primary hyperparathyroidism Seizure disorder Many years ago may have had single episode, pt was never treated for this, no reoccurrence. 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 Beliefs That Will Affect Care: None marital status: Current Living Situation: Parent Current Living Situation Comment: Patient states he must do all of his own self care current occupational status: disabled How many Children do You have: 2 Other Information That Helps Us Care for You: No Feels Safe at Home: Yes Safety Concerns: Feels Safe At This Time Assistive Devices: Brace/Splint/Immobilizer and Wheelchair Assistive Devices Comment: Left leg braces Review of Systems Constitutional: + fatigue; no fever and no chills Eyes: no blind spots, no diplopia and no eye pain Ear, Nose, Mouth, Throat: no hearing loss Respiratory: no cough and no dyspnea Cardiovascular: no chest pain and no palpitations Gastrointestinal: as per Subjective / HPI and + fecal incontinence; no abdominal pain, no nausea and no vomiting Genitourinary: no urinary incontinence Musculoskeletal: no myalgia Integumentary: no rash Neurologic: as per Subjective / HPI Psychiatric: no depression and no anxiety Hematologic / Lymphatic: no easy bleeding and no easy bruising Exam (Neuro) Constitutional: well developed and well nourished; no acute distress Eyes: normal visual gama by confrontation, PERRL, normal accommodation and EOM intact bilaterally; no fundoscopic abnormality, no nystagmus and no papilledema Cardiovascular: Vessels: normal carotid upstroke; no carotid bruit Neurologic: Oriented to:: Person, Place and Time Memory: Short Term Intact and Remote Intact Attention: Span Intact and Concentration Intact Language: Naming Objects and Repeating Phrases Speech Fluency: negative Dysarthria Speech Aphasia: negative Aphasia Fund of Knowledge: Current Events, Past History and Vocabulary Cranial Nerves: Normal II (Visual gama full to confrontation, visual acuity normal), III, IV, (Pupils equal round reactive to light and accommodation, eye movements normal), VII (There is no facial droop or weakness), VIII (Hearing intact), IX, X (Palate elevates to midline), XI (Shoulder shrug intact) and XII (Tongue protrudes to midline); Abnorm V (Decreased sensation for the left side of the face noted) Motor S trength: Pronator Drift Laterality: Left and Hemiparesis Laterality: Left; negative Normal Lower Extremities or Normal Upper Extremities Motor Tone: negative Normal Lower Extremities or Normal Upper Extremities Spasticity: Arms Laterality: Left and Legs Laterality: Left Muscle Bulk/Involuntary Movements: No Involuntary Movements; negative Muscle Atrophy Sensation: Light Touch Intact, Pain/Temperature Intact, Vibration Intact and Proprioception Intact Coordination: Dysdiadochokinesia, Finger-Nose Abnormal Laterality: Left and Heel-Nuno Abnormal Laterality: Left Deep Tendon Reflexes: Rt Triceps: 2+, Lt Triceps: 3+, Rt Biceps: 2+, Lt Biceps: 3+, Rt Brachioradialis: 2+, Lt Brachioradialis: 3+, Rt Patellar: 2+, Lt Patellar: 3+, Rt Ankle: 1+ and Lt Ankle: 2+ Special Tests: Babinski Present (bilateral) Details: Gait cannot be tested, patient nonambulatory Results & Data ([facility]) Vital Signs (Past 12 Hours) Vital Signs Temp Pulse Resp BP Pulse Ox O2 Del Method 10/07/21 08:16 36.4 C L 59 L 16 136/86 96 Room Air Laboratory Results WBC 12.54, hemoglobin 14.7, hematocrit 43.4, MCV 94.1, platelet count 223, sodium 138, potassium 3.2, BUN 21, creatinine 1.20, glucose 95, calcium 8.9, phosphorus 2.3, was 1.9 yesterday, AST 23, ALT 35, vitamin D 19.7, TSH 2.573. Diagnostic Findings Results of previous imaging including MRI of the brain, cervical spine, and thoracic spine are as described in the history of present illness. An electrocardiogram completed October 06, 2021 revealed a normal sinus rhythm, 68 bpm. Coding Level of Care Code 39920 Initial Inpt Care Lvl 3 Diagnoses Demyelinating disease G37.9 Multiple sclerosis G35
[2021-10-07] MEDS ORDERED: GADOBUTROL 65ML VIAL IV ONE (19:27)
--- NOTE | 2021-10-07 20:24 | Magnetic Resonance Report ---
MR cervical spine wo/w con CLINICAL HISTORY: multiple sclerosis/demyelinating disease. Weakness and dizziness for a few days. COMPARISON: 02/22/2021 TECHNIQUE: Multiplanar multisequence images of the Cervical Spine were performed were performed with and without IV contrast. Contrast Volume: 8.5 ml of Gadavist FINDINGS: This is a limited examination as patient had difficulty holding still due to reported pain. There is no evidence for vertebral body fracture. The heights of the vertebral bodies are maintained. The vertebral bodies are in anatomic alignment. Homogeneous marrow signal seen without evidence for marrow edema or marrow replacement. The odontoid is intact and the atlantoaxial articulation is withi n normal limits. The craniocervical junction is within normal limits. Homogeneous signal is seen within the spinal cor d. There is no abnormal enhancement following contrast administration. IMPRESSION: 1. Compared to the previous study, there is normal signal identified within the spinal cord with no enhancing plaques demonstrated. ACT 112: Negative or not required by law. Electronically signed by: Giovanny Lizama M.D. 10/07/2021 8:22 PM
--- NOTE | 2021-10-07 20:29 | Magnetic Resonance Report ---
MR thoracic spine wo/w con CLINICAL HISTORY: multiple sclerosis/demyelinating disease. Weakness and dizziness for a few days. COMPARISON: 02/22/2021 TECHNIQUE: Multiplanar multisequence images of the Thoracic Spine were performed with and without IV contrast. No axial sequences were performed due to the patient's pain. Contrast Volume: 8.5 ml of Gadavist FINDINGS: Bones: There is no evidence for vertebral body fracture. The heights of the vertebral bodies are main tained. The vertebral bodies are in anatomic alignment. Homogeneous marrow signal is seen without maria fernanda dence for marrow edema or marrow replacement. There is no abnormal marrow enhancement. Disc spaces: There are no focal disc protrusions or herniations identified. There is no significant s [place] canal stenosis or neural foraminal narrowing present. Soft tissues: Compared to the previous examination, minimal increased signal is again seen at the T6- 7 level. There are no paraspinal fluid collections or soft tissue masses identified. There is minimal enhancement seen at this site following contrast administration characteristic of an active plaque. IMPRESSION: 1. Minimal increased signal is again seen at the T6-7 level with minimal enhancement present followin g contrast administration characteristic of an active plaque. Electronically signed by: Giovanny Lizama M.D. 10/07/2021 8:27 PM
--- NOTE | 2021-10-07 20:46 | Magnetic Resonance Report ---
MR brain MS wo/w con CLINICAL HISTORY: multiple sclerosis/demyelinating disease. Weakness and dizziness for a few days COMPARISON STUDY: 02/23/2020 TECHNIQUE: Multiplanar multisequence images of the brain were performed before and after Gadavist, 8 .5 mL of IV contrast. Diffusion weighted imaging and ADC mapping was also performed. FINDINGS: Extra-axial space: There is no evidence for a subdural hematoma, There are no extra-axial fluid virginie ections. Ventricles and cisterns: The ventricles are normal in size and configuration. There is no evidence f or midline shift or mass effect. Parenchyma: On noncontrast images, there is no evidence for an acute hemorrhage or infarct. No acute diffusion abnormalities are noted on diffusion weighted imaging or ADC mapping. There is normal ricketts -white differentiation. Compared to the previous examination, extensive T2 and FLAIR weighted foci are again present througho ut the brain. These are again not significantly changed from the previous examination. There is again mild cerebral cortical atrophy. The sulci and gyri appear normal without effacement. The midline str uctures are unremarkable. The posterior fossa structures appear normal. On postcontrast images, there is again no evidence for enhancing plaque present. No evidence for acti ve lesion. Osseous structures: The paranasal sinuses are well aerated. The mastoid air cells are well aerated. Soft tissues: No focal soft tissue abnormalities are identified. IMPRESSION: 1. Compared to the previous examination, there is no significant interval change with no acute intrac erebral pathology. 2. Extensive white matter T2 hyperintense foci and increase foci on FLAIR weighted imaging is again s een and essentially unchanged. 3. There are no enhancing plaques present with no MR evidence for active demyelination. 4. Mild cerebral cortical atrophy is again seen. ACT 112: Negative or not required by law. Electronically signed by: Giovanny Lizama M.D. 10/07/2021 8:44 PM
[2021-10-07] MEDS: ACETAMINOPHEN 500 MG TAB PO PRN (20:47)
--- NOTE | 2021-10-07 22:58 | Emergency Department Note ---
History of Present Illness General Chief complaint: Weakness Stated complaint: D/N/V, weakness, leg pain Time Seen by Provider: 10/06/21 00:05 Source: patient Mode of arrival: EMS Limitations: no limitations History of Present Illness Provider complaint: weakness, diarrhea Onset (ago): week(s) Maximum Pain Intensity: 3 Treatments prior to arrival: none This is a 45 yo male with a hx of MS who presents due to worsening weakness and diarrhea. Patient states he was recently admitted to the hospital with the same symptoms, was given IV Solu-Medrol and discharged on prednisone. He states he has been taking this as well as his other usual medications. Patient states he has been so weak it is difficult for him to get to the restroom. He states he has had poor oral intake. He denies any fevers. Denies noting any blood in the stool. Denies any history of IBS or IBD. Denies any known sick contacts. No recent antibiotics or prior history of C. difficile. Of note nursing staff states on arrival here patient was still in the same ramirez rgical scrubs he was discharged on 3 days ago that were now caked with a paste like a pale stool. Pt seen during a time of high acuity and national emergency pandemic while wearing PPE. Home Medications Medication Instructions Recorded Confirmed Type fluoxetine 10 mg capsule (Prozac) 10 mg PO QAM 09/11/20 10/05/21 History tizanidine 2 mg tablet 2 mg PO Q8H PRN muscle spasms 09/29/21 10/05/21 History apixaban 5 mg tablet (Eliquis) 5 mg PO BID 10/05/21 10/05/21 History cholecalciferol (vitamin D3) 25 25 mcg PO DAILY 10/05/21 10/05/21 History mcg (1,000 unit) capsule (Vitamin D3) prednisone 20 mg tablet See Rx Instructions .Route .COMPLEX 10/05/21 10/05/21 History Allergies Allergy/AdvReac Type Severity Reaction Status Date / Time aspirin Allergy Severe airway Verified 10/05/21 23:45 edema; hives Past Med/Surg History Medical History Chronic pain syndrome H/O poor personal hygiene Hypercalcemia Left leg pain Multiple sclerosis Obstructive uropathy 2/2 renal stone, caused RUBI, pt admitted for this and hypercalcemia 05/2018 Primary hyperparathyroidism Seizure disorder Many years ago may have had single episode, pt was never treated for this, no reoccurrence. Weakness Surgical History History of cystoscopy WITH STENT PLACEMENT 06/14/18 [facility] Family History Father Stroke Thyroid disorder Other Hypertension Kidney stones Social History Smoking Status: Never smoker Tobacco Type: Smokeless Tobacco (Dip or Chew) Cigarettes Per Day: 0; Second Hand Exposure: Yes (family); Hx Alcohol Use: Yes Alcohol type: beer Hx Substance Use: No Preferred Language: Vietnamese Communication Ability: Effective Screen Vent Binder Required: No Beliefs That Will Affect Care: None marital status: Current Living Situation: Parent Current Living Situation Comment: Patient states he must do all of his own self care current occupational status: disabled How many Children do You have: 2 Other Information That Helps Us Care for You: No Feels Safe at Home: Yes Safety Concerns: Feels Safe At This Time Assistive Devices: Wheelchair Assistive Devices Comment: Left leg braces Review of Systems A total of 10 systems reviewed and were otherwise negative All systems reviewed & are unremarkable except as noted in HPI & below Physical Exam GENERAL: alert, unwell appearing, well nourished, no distress, non-toxic EYE EXAM: normal conjunctiva, PERRL and EOM's grossly intact OROPHARYNX: no exudate, no erythema, lips, buccal mucosa, and tongue normal and mucous membranes are moist NECK: supple, no nuchal rigidity, no adenopathy, non-tender LUNGS: Clear to auscultation. Normal chest wall mechanics, no w/r/r HEART: no murmurs, S1 normal and S2 normal ABDOMEN: abdomen soft, non-tender, normo-active bowel sounds, no masses, no rebound or guarding. BACK: Back is symmetrical on inspection and there is no deformity, no midline tenderness, no CVA tenderness. SKIN: no rashes and no bruising UPPER EXTREMITIES: upper extremities are grossly normal. FROM, nml pulses b/l. LOWER EXTREMITIES: No pitting edema. FROM, nml pulses b/l. NEURO EXAM: Normal sensorium, cranial nerves II-XII grossly intact, normal speech, no gross weakness of arms, no gross weakness of legs. Gross sensation intact. Course Administered Medications Acetaminophen (Acetaminophen 500 Mg Tab) 1,000 mg PO Q8H PRN PRN Reason: Pain Stop: 11/05/21 16:50 Last Admin: 10/07/21 20:47 Dose: 1,000 mg Documented By: Admin: 10/06/21 17:32 Dose: 1,000 mg Documented By: NEEL Apixaban (Apixaban 5 Mg Tablet) 5 mg PO BID [facility] Stop: 11/05/21 09:29 Last Admin: 10/07/21 20:47 Dose: 5 mg Documented By: Admin: 10/07/21 08:02 Dose: 5 mg Documented By: Admin: 10/06/21 20:05 Dose: 5 mg Documented By: Admin: 10/06/21 10:21 Dose: 5 mg Documented By: NEEL Cinacalcet (Cinacalcet Hcl 30 Mg Tab) 30 mg PO BID [facility] Stop: 11/05/21 09:29 Last Admin: 10/07/21 20:47 Dose: 30 mg Documented By: Admin: 10/07/21 08:00 Dose: 30 mg Documented By: Admin: 10/06/21 20:05 Dose: 30 mg Documented By: Admin: 10/06/21 10:21 Dose: 30 mg Documented By: NEEL Ergocalciferol (Ergocalciferol 50,000 Units 1250 Mcg Cap) 50,000 units PO Q7D [facility] Stop: 11/06/21 08:59 Last Admin: 10/07/21 08:01 Dose: 50,000 units Documented By: QUANG Fluoxetine HCl (Fluoxetine Hcl 10 Mg Cap) 10 mg PO QAM MANJINDER Stop: 11/05/21 09:29 Last Admin: 10/07/21 08:01 Dose: 10 mg Documented By: Admin: 10/06/21 10:20 Dose: 10 mg Documented By: NEEL Sodium Chloride (Nss 1000ml) 1,000 mls @ 125 mls/hr IV .Q8H MANJINDER Stop: 11/06/21 07:14 Last Infusion: 10/08/21 00:40 Dose: 125 mls/hr Documented By: Infusion: 10/07/21 21:35 Dose: 125 mls/hr Documented By: Infusion: 10/07/21 17:51 Dose: 0 mls/hr Documented By: Admin: 10/07/21 15:28 Dose: 125 mls/hr Documented By: Infusion: 10/07/21 15:18 Dose: 125 mls/hr Documented By: Admin: 10/07/21 07:18 Dose: 125 mls/hr Documented By: QUANG Vitamin D (Cholecalciferol 5,000 Units 125 Mcg Tab) 5,000 units PO QAM MANJINDER Stop: 11/06/21 08:59 Last Admin: 10/07/21 08:00 Dose: 5,000 units Documented By: QUANG Discontinued Medications Acetaminophen (Acetaminophen 325 Mg Tab) 650 mg PO NOW STA Stop: 10/06/21 03:32 Last Admin: 10/06/21 05:15 Dose: 650 mg Documented By: ALEXANDER Ergocalciferol (Ergocalciferol 50,000 Units 1250 Mcg Cap) 50,000 units PO ONE ONE Stop: 10/06/21 10:16 Last Admin: 10/06/21 10:46 Dose: 50,000 units Documented By: NEEL Gadobutrol (Gadobutrol 65ml Vial) 8.5 ml IV ONCE ONE Stop: 10/07/21 19:28 Last Admin: 10/07/21 19:27 Dose: 8.5 ml Documented By: SURYA Sodium Chloride (Nss 1000ml) 1,000 mls @ 250 mls/hr IV .Q4H MANJINDER Stop: 10/06/21 12:14 Last Infusion: 10/06/21 14:29 Dose: 0 mls/hr Documented By: Admin: 10/06/21 10:24 Dose: 250 mls/hr Documented By: Infusion: 10/06/21 09:19 Dose: 250 mls/hr Documented By: Infusion: 10/06/21 08:40 Dose: 250 mls/hr Documented By: Admin: 10/06/21 05:19 Dose: 250 mls/hr Documented By: Infusion: 10/06/21 04:27 Dose: 250 mls/hr Documented By: Admin: 10/06/21 00:27 Dose: 250 mls/hr Documented By: LIV Potassium Phosphate 21 mmol/ (Sodium Chloride) 507 mls @ 88 mls/hr IV ONE ONE Stop: 10/07/21 13:00 Last Infusion: 10/07/21 13:45 Dose: 0 mls/hr Documented By: Admin: 10/07/21 07:27 Dose: 88 mls/hr Documented By: QUANG Potassium Phosphate (Pot Phosphate Monobasic W/ Sod Tab) 2 tab PO ONE STA Stop: 10/06/21 05:14 Last Admin: 10/06/21 05:50 Dose: 2 tab Documented By: ALEXANDER Potassium Phosphate (Pot Phosphate Monobasic W/ Sod Tab) 2 tab PO QID MANJINDER Stop: 10/06/21 09:31 Last Admin: 10/06/21 10:20 Dose: 2 tab Documented By: NEEL Prednisone (Prednisone 20 Mg Tab) 40 mg PO DAILY MANJINDER Stop: 11/05/21 09:29 Last Admin: 10/07/21 08:01 Dose: 40 mg Documented By: Admin: 10/06/21 10:20 Dose: 40 mg Documented By: NEEL Medical Decision Making Differential Diagnosis Differential Diagnosis includes but is not limited to dehydration, stroke, anemia, hypoglycemia, hyponatremia, hypernatremia, urinary tract infection, pneumonia, bronchitis, sepsis, gastroenteritis, additional abdominal pathology, metabolic abnormalities and infections. Medical Records Attestation: I reviewed the patient's medical records. Home Medications Current Medication List: was personally reviewed by me Laboratory Data Attestation: I reviewed the patient's lab results. Result diagrams: 10/07/21 07:26 10/07/21 07:26 Lab Results 10/05/21 10/06/21 10/06/21 Range/Units 23:56 00:13 00:13 WBC 12.25 H (4.8-10.8) K/ul RBC 5.12 (4.63-6.08) M/uL Hgb 16.4 (14.0-18.0) g/dl Hct 47.5 (40.1-51.0) % MCV 92.8 (80.0-100.0) fL MCH 32.0 (25.0-34.0) pg MCHC 34.5 (32.0-36.0) g/dL RDW Std Deviation 41.3 (36.4-46.3) fL RDW Coeff of Bret 11.9 (11.5-14.5) % Plt Count 238 (130-400) K/uL MPV 10.1 (9.4-12.4) fL Immature Gran % (Auto) 1.4 % Neut % (Auto) 91.9 % Lymph % (Auto) 4.8 % Whitley % (Auto) 1.6 % Eos % (Auto) 0.1 % Baso % (Auto) 0.2 % Neut # (Auto) 11.26 H (1.4-6.5) K/uL Lymph # (Auto) 0.59 L (1.2-3.4) K/uL Whitley # (Auto) 0.20 L (0.24-0.82) K/uL Eos # (Auto) 0.01 (0-0.50) K/uL Baso # (Auto) 0.02 (0-0.2) K/uL Immature Gran # (Auto) 0.17 H (0.00-0.02) K/uL PT 9.7 (9.0-12.0) Seconds INR 0.9 (0.9-1.1) APTT 22.0 (21.0-31.0) Seconds PTT Ratio 0.8 Sodium (136-145) mmol/L Potassium (3.5-5.1) mmol/L Chloride (98-107) mmol/L Carbon Dioxide (21-32) mmol/L Anion Gap (3-11) BUN (6-23) mg/dl Creatinine (0.6-1.4) mg/dl Est Cr Clr Drug Dosing ml/min Est GFR ( Amer) ml/min Est GFR (Non-Af Amer) ml/min BUN/Creatinine Ratio (10-20) Glucose (70-99(Fasting)) mg/dl Calcium (8.5-10.1) mg/dl Phosphorus (2.5-4.9) mg/dl Magnesium (1.7-2.4) mg/dl Total Bilirubin (0.2-1.0) mg/dl AST (13-39) U/L ALT (7-52) U/L Alkaline Phosphatase (34-104) U/L Total Protein (6.0-8.3) gm/dl Albumin (3.4-5.0) gm/dl Globulin (2.5-4.0) gm/dl Albumin/Globulin Ratio (0.9-2) Lipase (11-82) U/L TSH (0.300-4.500) uIu/ml Urine Color Yellow Urine Appearance Clear (Clear) Urine pH 7.0 (4.5-7.5) Ur Specific [place] 1.008 (1.000-1.030) Urine Protein Negative (Negative) Urine Glucose (UA) Negative (Negative) Urine Ketones Negative (Negative) Urine Blood Trace H (Negative) Urine Nitrite Negative (Negative) Urine Bilirubin Negative (Negative) Urine Urobilinogen Negative (Negative) Ur Leukocyte Esterase Negative (Negative) Urine WBC (Auto) 1-5 (0-5) /hpf Urine RBC (Auto) 0-4 (0-4) /hpf U Hyaline Cast (Auto) 0 (0-5) /lpf U Epithel Cells (Auto) 0-5 (0-5) /lpf Urine Bacteria (Auto) Negative (Negative) 10/06/21 10/06/21 Range/Units 00:13 00:13 WBC (4.8-10.8) K/ul RBC (4.63-6.08) M/uL Hgb (14.0-18.0) g/dl Hct (40.1-51.0) % MCV (80.0-100.0) fL MCH (25.0-34.0) pg MCHC (32.0-36.0) g/dL RDW Std Deviation (36.4-46.3) fL RDW Coeff of Bret (11.5-14.5) % Plt Count (130-400) K/uL MPV (9.4-12.4) fL Immature Gran % (Auto) % Neut % (Auto) % Lymph % (Auto) % Whitley % (Auto) % Eos % (Auto) % Baso % (Auto) % Neut # (Auto) (1.4-6.5) K/uL Lymph # (Auto) (1.2-3.4) K/uL Whitley # (Auto) (0.24-0.82) K/uL Eos # (Auto) (0-0.50) K/uL Baso # (Auto) (0-0.2) K/uL Immature Gran # (Auto) (0.00-0.02) K/uL PT (9.0-12.0) Seconds INR (0.9-1.1) APTT (21.0-31.0) Seconds PTT Ratio Sodium 136 (136-145) mmol/L Potassium 4.4 (3.5-5.1) mmol/L Chloride 106 (98-107) mmol/L Carbon Dioxide 23 (21-32) mmol/L Anion Gap 7 (3-11) BUN 17 (6-23) mg/dl Creatinine 1.15 (0.6-1.4) mg/dl Est Cr Clr Drug Dosing 92.3 ml/min Est GFR ( Amer) 87.3 ml/min Est GFR (Non-Af Amer) 75.4 ml/min BUN/Creatinine Ratio 14.8 (10-20) Glucose 113 H (70-99(Fasting)) mg/dl Calcium 11.3 H (8.5-10.1) mg/dl Phosphorus 1.4 L* (2.5-4.9) mg/dl Magnesium 2.4 (1.7-2.4) mg/dl Total Bilirubin 0.4 (0.2-1.0) mg/dl AST 19 (13-39) U/L ALT 35 (7-52) U/L Alkaline Phosphatase 57 (34-104) U/L Total Protein 6.5 (6.0-8.3) gm/dl Albumin 4.1 (3.4-5.0) gm/dl Globulin 2.4 L (2.5-4.0) gm/dl Albumin/Globulin Ratio 1.7 (0.9-2) Lipase 60 (11-82) U/L TSH 2.573 (0.300-4.500) uIu/ml Urine Color Urine Appearance (Clear) Urine pH (4.5-7.5) Ur Specific [place] (1.000-1.030) Urine Protein (Negative) Urine Glucose (UA) (Negative) Urine Ketones (Negative) Urine Blood (Negative) Urine Nitrite (Negative) Urine Bilirubin (Negative) Urine Urobilinogen (Negative) Ur Leukocyte Esterase (Negative) Urine WBC (Auto) (0-5) /hpf Urine RBC (Auto) (0-4) /hpf U Hyaline Cast (Auto) (0-5) /lpf U Epithel Cells (Auto) (0-5) /lpf Urine Bacteria (Auto) (Negative) MDM Narrative An order was placed for continuous cardiac monitoring. The monitor shows a rate of _70_ with _normal sinus_ rhythm. This is a 45-year-old male who presents emergency department with concern for weakness and diarrhea. Patient did have a bowel movement while here which was not diarrhea. Patient does appear weak and states this is worse than his usual weakness secondary to his MS. Repeat labs drawn and sent, patient started on IV fluids. Mild hypokalemia was noted. Patient was afebrile and hemodynamically stable. Due to obvious worsening weakness, dehydration, inability to ambulate and care for himself, case discussed with hospitalist for additional evaluation and management. Mild leukocytosis may be from evolving infection versus secondary to use of steroids. Impression & Plan Generalized weakness, Hypokalemia Discharge Plan Visit Data Chief Complaint: Weakness Stated Complaint: D/N/V, weakness, leg pain ED Provider: Rosario Garcia Discharge Problem: Generalized weakness, Hypokalemia Patient Disposition: Admitted As Inpatient Condition: Good Discharge Instructions Interventions: ED Discharge Assessment Last Done: 10/06/21 08:28
[2021-10-08] MEDS: SODIUM CHLORIDE 0.9% 1000ML 1,000 ML IV SCH ×3 (02:06→11:12)
[2021-10-08 06:31] LABS: Hematocrit (blood only) 42.4 % (40.1-51.0); Hemoglobin 13.9 g/dl (14.0-18.0); Mean Corpuscular Hemoglobin 31.3 pg (25.0-34.0); Mean Corpuscular Hgb Conc 32.8 g/dL (32.0-36.0); Mean Corpuscular Volume 95.5 fL (80.0-100.0); Mean Platelet Volume 9.8 fL (9.4-12.4); Platelet Count 207 K/uL (130-400); RDW Coefficient of Variation 12.1 % (11.5-14.5); Red Blood Count 4.44 M/uL (4.63-6.08); White Blood Count 9.67 K/ul (4.8-10.8)
[2021-10-08 06:52] LABS: Alanine Aminotransferase 40 U/L (7-52); Albumin Globulin Ratio 1.5 (0.9-2); Albumin Level 3.4 gm/dl (3.4-5.0); Alkaline Phosphatase 42 U/L (34-104); Anion Gap 5 (3-11); Aspartate Aminotransferase 17 U/L (13-39); BUN Creatinine Ratio 16.7 (10-20); Bilirubin,Total 0.4 mg/dl (0.2-1.0); Blood Urea Nitrogen 19 mg/dl (6-23); C Reactive Protein < 0.50 mg/dl (0-0.5); Calcium 8.2 mg/dl (8.5-10.1); Carbon Dioxide 21 mmol/L (21-32); Chloride 112 mmol/L (98-107); Creatinine Clr Calc Pharmacy 93.1 ml/min; Est GFR (African American) 88.3 ml/min; Est GFR (Non-African American) 76.2 ml/min; Globulin 2.2 gm/dl (2.5-4.0); Glucose 86 mg/dl (70-99(Fasting)); Magnesium 1.9 mg/dl (1.7-2.4); Phosphorus 2.3 mg/dl (2.5-4.9); Potassium 3.6 mmol/L (3.5-5.1); Sodium 138 mmol/L (136-145); Total Protein 5.6 gm/dl (6.0-8.3)
--- NOTE | 2021-10-08 07:07 | Hospitalist Progress Note ---
Date of Service October 08, 2021 Assessment & Plan (1) Ambulatory dysfunction: Plan: 45 year old male w/ multiple sclerosis, primary hyperparathyroidism, chronic DVT, stool incontinence, who presents brought in by EMS from home for ambulatory dysfunction. - Likely multifactorial- chronic weakness from multiple sclerosis and electrolyte imbalances secondary to primary hyperparathyroidism, recent acute MS flare with 4 days removed from high dose IV steroid therapy - Will likely improve with supportive care, I do not suspect an acute process underlying his weakness - PT/OT ordered, evaluations pending - Pt would prefer d/c back to home with home PT/OT rather than rehab (2) Primary hyperparathyroidism: Plan: -Chronic. PTH 184.7 in 04/2021, persistent elevation since 2018 -Phosphorus 1.9 today, repleting -Calcium 10.1, ionized Ca 1.39 on admission. IVF given, Cinacalcet initiated- calcium 8.9 today -EKG wnl -Continue vitamin D supplementation as inpatient -Vitamin D level 19.7 on admission -Trend BMP, Phosphorus, ionized Ca (3) Multiple sclerosis: Plan: -Chronic, w/ LLE weakness since 2009, wheelchair bound -Follows with [facility] neurology, appointment in 10/2021 -Completed 1 mg Solumedrol course 09/29 - 10/01 on last admission -Continue steroid taper at present, prednisone 40 mg daily (10/06 - 10/09) -Neurology consulted (4) Acute kidney injury: Plan: -Cr 1.1 -> 1.7 since admission -Repleting with IVF -Trend BMP (5) Chronic deep vein thrombosis (DVT) of distal vein of left lower extremity: Plan: Continue home Eliquis. Plan Diet: regular DVT prophylaxis: Eliquis code: full dispo: medical/surgical Admission and Anticipated Discharge Date Admission Date: October 06, 2021 Subjective No acute events overnight. Pt reports his weakness is improving, feels better than yesterday. Denies any other acute complaints. Does plan on following up with neurology in October to discuss restarting Ocrevus. Review of Systems Review of Systems: Per subjective Physical Exam Physical Exam: Constitutional: well-appearing, no acute distress HEENT: NCAT, PERRLA, EOMI, no conjunctival injection, moist mucous membranes CV: regular rhythm, no murmur appreciated, extremities well-perfused, no LE edema Resp: CTAB, no wheezes/rales/rhonchi appreciated, no increased work of breathing GI: soft, nondistended, nontender Skin: warm, dry, no rash appreciated Neuro: grossly alert and oriented, RUE and RLE strength 5/5, LUE strength 3/5, LLE strength 0/5, reduced sensation on L > R UE and LE, no additional focal motor or sensory deficits appreciated Results & Data Results & Data ([facility]) Vital Signs (Past 12 Hours) Vital Signs Temp Pulse Resp BP Pulse Ox O2 Del Method 10/08/21 06:22 36.3 C L 60 18 132/87 97 Room Air 10/07/21 20:45 Room Air 10/07/21 22:07 36.8 C 68 16 142/82 H 94 Room Air Resident Activity Tracking Resident Involvement: Resident Care Provided Care Provided: Adult Hospital Medicine
[2021-10-08] MEDS: CINACALCET HCL 30 MG TAB PO SCH (08:06)
[2021-10-08] MEDS: FLUoxetine HCL 10 MG CAP PO SCH (08:06)
[2021-10-08] MEDS: APIXABAN 5 MG TABLET PO SCH (08:06)
[2021-10-08] MEDS: CHOLECALCIFEROL 5,000 UNITS 125 MCG TAB PO SCH (08:07)
[2021-10-08] MEDS: POT PHOSPHATE MONOBASIC W/ SOD TAB PO SCH ×2 (08:49→12:55)
[2021-10-08] MEDS ORDERED: PANTOprazole 40 MG TAB PO SCH (09:00)
--- NOTE | 2021-10-08 10:18 | Neurology Progress Note ---
Date of Service October 08, 2021 Assessment & Plan (1) Multiple sclerosis: Plan 45-year-old male with a history of multiple sclerosis diagnosed in 2009, presenting with left-sided weakness. In speaking with the patient further today, it sounds like his condition significantly progressed within the first few years of his diagnosis. Again, however, for the past 7 years, he has been confined to a wheelchair and denies experiencing significant change in his chronic left-sided weakness or development of other symptoms, in spite of multiple admissions for exacerbations. I suspect he has primary progressive MS. An episode of ADEM occurring 2009 may not be completely excluded, however. Nonetheless, he did report feeling somewhat improved while on Ocrevus a few years ago and it may not be unreasonable to restart this treatment. Recent inflammatory markers normal, BRANDY screen, Sjogren's, rheumatoid factor pending although clinical suspicion for underlying systemic rheumatologic disorder low at this time. Again, I would not recommend additional treatment with IV corticosteroids as he just completed a 3-day course of IV Solu-Medrol 1 week ago. Patient may follow-up with a local [facility] neurology group. He should also attempt to reschedule his appointment with Dr. Terra Morgan, at [facility] for second opinion regarding his demyelinating disease. Perhaps this appointment could be done through telehealth given logistical difficulties with transportation. No further immediate neurologic recommendations. Admission and Anticipated Discharge Date Admission Date: October 06, 2021 Subjective Follow-up for multiple sclerosis The patient reports improvement in his generalized weakness compared with yesterday. No significant change in his chronic left arm and leg weakness, but probably at baseline per patient. No headache or spinal pain. No urinary incontinence but does have chronic incontinence of stool. Up-to-date MRI of the brain, C-spine, and T-spine completed yesterday. I did independently review these images. Overall, not much change compared with the previous MRIs done in January 2021. I do note that although the interpreting radiologist felt that the cervical spine MRI had a normal signal, I was able to appreciate subtle T2 hyperintensities corresponding to the previous C-spine MRI findings. I was also able to appreciate the lesion at T6-7 which has been identified previously as well. Although, there is perhaps subtle or minimal postcontrast enhancement on the most recent T-spine MRI. These changes observed on patient's spinal imaging are quite minimal and of uncertain clinical significance. No significant change in the previously observed extensive chronic demyelinating plaques on brain MRI. No new or active lesions. Additional labs have been ordered as well looking for potential MS mimics. ESR 2, CRP less than 0.50, BRANDY screen, rheumatoid factor, Sjogren's antibodies pending. Review of Systems Constitutional: + fatigue; no fever and no chills Eyes: no blind spots, no diplopia and no eye pain Neurologic: + gait abnormality, + localized weakness and + loss of sensation; no headache(s) Results & Data ([facility]) Vital Signs (Past 12 Hours) Vital Signs Temp Pulse Resp BP Pulse Ox O2 Del Method 10/08/21 06:22 36.3 C L 60 18 132/87 97 Room Air 10/07/21 22:07 36.8 C 68 16 142/82 H 94 Room Air Exam (Neuro) Neurologic: Oriented to:: Person, Place and Time Memory: Short Term Intact and Remote Intact Attention: Span Intact and Concentration Intact Speech Fluency: negative Dysarthria or Dysfluency Fund of Knowledge: Current Events, Past History and Vocabulary Cranial Nerves: Normal II, III, IV, , V, VII, VIII, IX, X, XI and XII Motor Strength: Hemiparesis Laterality: Left Muscle Bulk/Involuntary Movements: No Involuntary Movements Coding Level of Care Code 74473 Subseq Hosp Care Lvl 2 Diagnoses Multiple sclerosis G35
--- NOTE | 2021-10-08 11:40 | Discharge Summary ---
Date of Service October 08, 2021 Admission HPI Per Admitting Provider 45 year old male w/ multiple sclerosis, primary hyperparathyroidism, chronic DVT, stool incontinence, who presents brought in by EMS from home for ambulatory decline. This was new vs the previous days as he had tolerated home PT and felt good after leaving the hospital. He was recently admitted to [facility] from 09/29/21- 10/01/21 for MS flare and was treated w/ 3 days of 1g IV methylpred. He states he has MS flares a few times a year. Follows Dr. Orozco neuro at [facility]. Was on Ocrevus 1-2 years ago. Considering getting back on. Stool incontinence at baseline, no new worsening. Denies dysuria. States was tolerating the 3x/wk home PT. Denies constipation. Loose stools just today. He feel weak, run down, and has had loose stool. Symptoms started noon 10/05/21. He has had lightheadedness and dizzy today. ED course: NSS 250mL/hr. VSS. wbc 12.25, on corticosteroids. Na, K wnl. Cr 1.15. Ca 11.3 (albumin 4.1). Phos 1.4. Mag 2.4 Admission Exam Per Admitting Provider General: A&Ox4. NAD. Cooperative. Conversational. HEENT: Atraumatic, normocephalic. EOMI Pulm: CTAB. -wheezes, -rales, -rhonchi. No respiratory distress. Cardiac: RRR, -mrg. Radial pulses intact and symmetrical. Abdominal: Nontender, nondistended, soft. Integ: Warm, dry, intact. 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 LLE has 0/5 strength, chronic. Sensation of LUE and LLE decreased/delayed vs right. Principal Diagnosis Multiple sclerosis, primary hyperparathyroidism Discharge Exam Constitutional: well-appearing, no acute distress HEENT: NCAT, PERRLA, EOMI, no conjunctival injection, moist mucous membranes CV: regular rhythm, no murmur appreciated, extremities well-perfused, no LE edema Resp: CTAB, no wheezes/rales/rhonchi appreciated, no increased work of breathing GI: soft, nondistended, nontender Skin: warm, dry, no rash appreciated Neuro: grossly alert and oriented, RUE and RLE strength 5/5, LUE strength 3/5, LLE strength 0/5, reduced sensation on L > R UE and LE, no additional focal motor or sensory deficits appreciated Discharge Data Allergies Allergy/AdvReac Type Severity Reaction Status Date / Time aspirin Allergy Severe airway Verified 10/05/21 23:45 edema; hives Consultations 10/06/21 01:41 ED Decision to Admit Stat 10/07/21 10:29 Consult Neurology Routine Ordered Studies 10/07/21 15:19 MRI Brain [MR brain MS wo/w con] Routine MRI Cervical [MR cervical spine wo/w con] Routine MRI Thoracic [MR thoracic spine wo/w con] Routine Hospital Course (1) Ambulatory dysfunction: (1) Ambulatory dysfunction: Plan: 45 year old male w/ multiple sclerosis, primary hyperparathyroidism, chronic DVT, stool incontinence, who presents brought in by EMS from home for ambulatory dysfunction. - Likely multifactorial- chronic weakness from multiple sclerosis and e lectrolyte imbalances secondary to primary hyperparathyroidism, recent acute MS flare with 4 days removed from high dose IV steroid therapy - Has improved with supportive care, electrolyte repletion - Pt would prefer d/c back to home with home PT/OT rather than rehab - Weakness resolved to baseline by time of discharge (2) Primary hyperparathyroidism: Plan: -Chronic. PTH 184.7 in 04/2021, persistent elevation since 2017 -Calcium 10.1, ionized Ca 1.39 on admission. IVF given, Cinacalcet initiated on admission -Calcium 8.7 today, ionized Ca 1.17, phosphorus 2.3- repleted with KPO4 -EKG wnl -Continue vitamin D supplementation as inpatient -Vitamin D level 19.7 on admission -Discharged on Cinacalcet 30 mg BID -PCP to recheck BMP, Phos at 1 week f/u (3) Multiple sclerosis: Plan: -Chronic, w/ LLE weakness since 2009, wheelchair bound -Follows with [facility] neurology, appointment in 10/2021 -Completed 1 mg Solumedrol course 09/29 - 10/01 on last admission -Neurology consulted -Suspect primary progressive MS -Repeat MRI brain/cervical/thoracic this admission essentially unchanged from 01/2021 studies -Alternative workup for rheumatologic disease pending- ESR, CRP negative but BRANDY, lupus AC, RF pending -Consider outpatient LP for evaluation of MS progression (4) Acute kidney injury: Plan: -Cr 1.1 -> 1.7 since admission -Repleting with IVF -Cr 1.14 at time of discharge (5) Chronic deep vein thrombosis (DVT) of distal vein of left lower extremity: Plan: Continue home Eliquis. (2) Primary hyperparathyroidism: (3) Multiple sclerosis: (4) Acute kidney injury: (5) Chronic deep vein thrombosis (DVT) of distal vein of left lower extremity: Total Time Total Time Spent Total Time Spent (In Minutes): 30 Discharge Plan Discharge Items Patient Disposition: Home - Self-Care Reason For Visit: AMBULATORY DYSFUNCTION, HYPOPHOSPHATEMIA Discharge Diagnosis: Multiple sclerosis, hyperparathyroidism Condition on Discharge: Good Activity: Resume your previous activity Non-emergency contact: Primary Care Provider and Neurologist Call non-emergency contact if: your symptoms worsen and your pain is worsening Follow-up/Referrals: Louis Hale [Primary Care Provider] - 10/09/21 12:50 pm Diet: Regular Addtl Attending Provider Instructions: You were admitted to the hospital for weakness. This was likely chronic from multiple sclerosis and hyperparathyroidism. We treated you with electrolyte replacement to restore your phosphate levels and reduce your calcium levels. Your PCP will recheck your labs to see where the levels are at and treat accordingly. A discharge summary will be sent to your primary care physician to ensure continuity of care. Please bring this discharge summary with you to your next office appointment so that your provider can review it at that time. Follow-up appointments: Make a follow-up appointment with your PCP within the next week. It is very important that you follow up with them shortly after discharge from the hospital. Medications: Your medication list has been reviewed and reconciled upon discharge to ensure accuracy and continuity of care. An updated list of all your medications is included with your hospital discharge paperwork. Please review this list closely, and make note of any changes. We sent a new medication called Cinacalcet. This will keep your calcium levels stable. Please take it twice a day Take your medications as instructed; do not skip a dose of your medicines. Make sure all of your doctors know every medicine you are taking (including [id number] medicines, vitamins, and supplements). Call your primary care provider before taking any new medicines (including [id number] medicines, vitamins, and supplements), because some of these may interact with your current medications, or may make your symptoms worse. Tell your primary care provider if you cannot afford your medications. CALL 911 OR GO TO THE EMERGENCY DEPARTMENT if you experience any of the following: Sudden, severe abdominal pain or nausea/vomiting Severe chest pain, or chest pain that radiates (moves) to your jaw or arm Sudden, severe shortness of breath or difficulty breathing Thank you for allowing us to participate in your care. Pending Studies at Discharge: Yes Studies:: Rheumatologic labs Stand-Alone Forms: My [facility] Medications and DC Order Prescriptions: New cinacalcet 30 mg tablet 30 mg PO BID 30 Days Qty: 60 0RF Continued fluoxetine [Prozac] 10 mg capsule 10 mg PO QAM Rx Instructions: LAST FILLED 05/30/21 FOR 90 DAYS/90 CAPS. tizanidine 2 mg tablet 2 mg PO Q8H PRN (Reason: muscle spasms) Eliquis 5 mg tablet 5 mg PO BID Rx Instructions: LAST FILLED 05/30/21 FOR 90 DAYS/180 TABS. prednisone 20 mg tablet See Rx Instructions .ROUTE .COMPLEX Rx Instructions: STARTED 10/01/21 FOR 12 DAYS-- Please take 60 mg (3 tablets) daily for 4 days. Then take 40 mg (2 tablets) daily for 4 days.Then take 20 mg (1 tablet) daily for 4 days. cholecalciferol (vitamin D3) [Vitamin D3] 25 mcg (1,000 unit) Capsule 25 mcg PO DAILY Rx Instructions: LAST FILLED 05/30/21 FOR 90 DAYS/90 CAPS. Discharge Orders: Discharge Order (Routine); Ordered 10/08/21 Ordered By: Ivonne Tapia Admission Data Admit Date/Time: 10/06/21 04:49 Attending Provider: Tunde Rothman Admit Provider: Shaan John Primary Care Provider: Louis Hale Other Providers: Fer Cloud ; Fabrice Polanco Supervising Physician Co-Signing Physician Notes I also saw the patient confirmed toribio portions of the history and physical examination. I agree with the impression plan as noted in the resident documentation. Exam 132/87, 60, 18, 36.3, 97% on room air Alert and oriented. No complaints at present. Cardiovascular regular Respirations unlabored Data Hemoglobin 13.9 Sodium 138, potassium 3.6, BUN 19, creatinine 1.14. Calcium 8.2 Phosphorus 2.3 Impression Multiple sclerosis Hyperparathyroidism Generalized weakness secondary to combination of above Neurology consultation appreciated; outpatient follow-up as recommended Will need BMP at the end of this week or early next week; could consider reducing the cinacalcet to 30 mg daily based on repeat calcium Ultimately will need to reestablish with endocrine surgery with regards to his previously planned parathyroidectomy
[2021-10-11 07:32] LABS: Anti Nuclear Antibody Screen NEGATIVE (NEGATIVE); Anti-SS-A <1.0 NEG AI (<1.0 NEG); Anti-SS-B <1.0 NEG AI (<1.0 NEG); Rheumatoid Factor <14 IU/mL (<14)
== END 2021-10-08 15:11 | disposition home health service (06) | DRG 59 ==
LOC: ED 22:01 → 3W 10-06 04:49 → INTOOBSV 10-06 04:49 → SUATTDRO 10-06 04:49 → 3W 10-06 08:28

== ENCOUNTER 2022-04-07 09:49 | Inpatient (IN) ==
[2022-04-07 11:10] LABS: Basophils # (auto) 0.04 K/uL (0-0.2); Basophils % (auto) 0.3 %; Eosinophils # (auto) 0.02 K/uL (0-0.50); Eosinophils % (auto) 0.2 %; Hematocrit (blood only) 45.1 % (42.0-52.0); Hemoglobin 15.7 g/dl (14.0-18.0); Immature Granulocytes # (auto) 0.06 K/uL (0.01-0.20); Immature Granulocytes % (auto) 0.5 %; Lymphocytes # (auto) 1.19 K/uL (1.2-3.4); Lymphocytes % (auto) 10.3 %; Mean Corpuscular Hemoglobin 31.8 pg (25.0-34.0); Mean Corpuscular Hgb Conc 34.8 g/dL (32.0-36.0); Mean Corpuscular Volume 91.5 fL (80.0-100.0); Mean Platelet Volume 10.6 fL (9.4-12.4); Monocytes % (auto) 8.7 %; Platelet Count 271 K/uL (130-400); RDW Coefficient of Variation 12.5 % (11.5-14.5); RDW Standard Deviation 41.8 fL (36.4-46.3); Red Blood Count 4.93 M/uL (4.70-6.10); White Blood Count 11.51 K/ul (4.8-10.8)
[2022-04-07] MEDS ORDERED: SODIUM CHLORIDE 0.9% 1000ML 1,000 ML IV ONE (11:15)
[2022-04-07 11:20] LABS: INR 0.9 (0.9-1.1); Partial Thromboplastin Ratio 0.9; Partial Thromboplastin Time 23.6 Seconds (21.0-31.0); Prothrombin Time 9.9 Seconds (9.0-12.0)
[2022-04-07 11:25] LABS: Albumin Globulin Ratio 1.4 (0.9-2); Albumin Level 4.2 gm/dl (3.4-5.0); BUN Creatinine Ratio 13.8 (10-20); Bilirubin,Total 0.6 mg/dl (0.2-1.0); Calcium 10.6 mg/dl (8.5-10.1); Creatinine Clr Calc Pharmacy 90.5 ml/min; Est GFR (African American) 85.8 ml/min; Est GFR (Non-African American) 74.1 ml/min; Globulin 3.1 gm/dl (2.5-4.0); Potassium 3.9 mmol/L (3.5-5.1); Total Protein 7.3 gm/dl (6.0-8.3)
[2022-04-07 11:29] LABS: Troponin I High Sensitivity 2.5 pg/ml (0-20)
[2022-04-07] MEDS ORDERED: ACETAMINOPHEN 1,000 MG/100 ML VIAL IV STA (11:29)
--- NOTE | 2022-04-07 12:27 | Electrocardiogram Report ---
Test Reason : Blood Pressure : / mmHG Vent. Rate : 087 BPM Atrial Rate : 087 BPM P-R Int : 164 ms QRS Dur : 084 ms QT Int : 352 ms P-R-T Axes : 054 002 042 degrees QTc Int : 423 ms Normal sinus rhythm Nondiagnostic inferior Q waves Borderline ECG When compared with ECG of 28-NOV-2021 20:31, No significant change Confirmed by Edin Schwartz ([id number]) on 04/07/2022 12:27:39 PM Referred By: REFERRED SELF Confirmed By:Edin Schwartz
[2022-04-07] MEDS ORDERED: OPTIRAY 350 100ml IV ONE (12:28)
--- NOTE | 2022-04-07 12:56 | CT Scan Report ---
ABDOMEN AND PELVIS CT WITH IV CONTRAST CT DOSE: 915.20 mGycm HISTORY: Acute low back pain with diarrhea abd/low back pain, diarrhea, MS TECHNIQUE: Multiaxial CT images of the abdomen and pelvis were performed following the IV administrat ion of 94 cc of Optiray, A dose lowering technique was utilized adhering to the principles of ALARA. COMPARISON STUDY: 01/11/2022 FINDINGS: No acute process of the imaged lower chest. 3 mm fissural nodule of the right lung base on image 19 series 3 is suggestive of a benign lymph node. No pneumatosis or pneumoperitoneum. Unremarkable spleen, pancreas and adrenal glands. Cholelithiasis without CT evidence of acute cholecy stitis. No biliary ductal dilation. Unremarkable liver. Patent portal vein. 4 mm nonobstructing calculus of the inferior pole right kidney. 2.1 cm cyst of the superior pole righ t kidney with mild layering milk of calcium. Numerous calculi of the left kidney measure up to 1.9 cm in the inferior pole. 2.1 cm calculus of the left renal pelvis is similar to prior with similar appe arance of the left-sided pelvocaliectasis with urothelial thickening. Additionally, there is mild dil ation of the proximal to mid left ureter without obstructing ureteral calculus identified. Prostamega ly. Unremarkable urinary bladder. No abdominal aortic aneurysm or lymphadenopathy. No bowel obstruction or bowel wall thickening. Normal appendix. No ascites or mesenteric inflammation . Scattered small bowel air-fluid levels. Mild colonic fecal retention. Unremarkable soft tissues. Ch ronic T8 and T10 compression deformities. No acute fracture or suspicious bone lesion. IMPRESSION: 1. No bowel obstruction or bowel wall thickening. Normal appendix. 2. Left greater than right bilateral nephrolithiasis redemonstrated. 2.1 cm calculus of the left rashaad l pelvis is similar to prior again resulting in mild pyelocaliectasis with mild urothelial thickening . Correlate with urinalysis to exclude infection. 3. Cholelithiasis. 4. Prostamegaly. 5. Additional findings as above. ACT 112: Negative or not required by law. The above report was generated using voice recognition software. It may contain grammatical, syntax o r spelling errors. Electronically signed by: Dc Costello M.D. 04/07/2022 12:54 PM
[2022-04-07 13:07] LABS: Magnesium 2.2 mg/dl (1.7-2.4); Phosphorus 1.4 mg/dl (2.5-4.9)
[2022-04-07] MEDS ORDERED: POTASSIUM PHOS 3 MMOL/1 ML INFUSION IV STA (14:42)
[2022-04-07] MEDS ORDERED: POT PHOSPHATE MONOBASIC W/ SOD TAB PO STA (14:42)
[2022-04-07] MEDS ORDERED: POTASSIUM PHOSPHATE 9 MMOL in SODIUM CHLORIDE 0.9% 250 ML IV ONE (15:00)
--- NOTE | 2022-04-07 15:10 | Emergency Department Note ---
Impression & Plan Multiple sclerosis, Chronic deep vein thrombosis (DVT) of distal vein of left lower extremity, Hypophosphatemia ED Provider Note NAME: JAD DICKINSON AGE: 46 SEX: M ARRIVES VIA: Ambulance INFORMANT: Patient ED PROVIDER(S): Miguel Watson MD CHIEF COMPLAINT: Back pain, left pain. PLAN: Disposition: Admit MEDICAL DECISION MAKING: The patient is a pleasant 46-year-old gentleman with a past medical history of MS with chronic left-sided hemiparesis, nonambulatory at baseline who presents to the emergency department for evaluation of worsening low back pain and incontinence of stool as well as palpitations that have been ongoing for the past several days and worsened this morning. He also reports pain related to skin irritation of his sacral area. He denies any fevers, chills, cough, congestion, vomiting. He reports he has not had incontinence of urine or urine retention. He denies any blood in his urine. On arrival the patient is in no acute distress, afebrile with stable vital signs. He appears clinically dry. His neurologic exam is at his baseline for his MS. He has moderate skin excoriation of his sacral region. EKG without overt acute ischemia. WBC 11.5K nonspecific. H/H and platelets within normal limits. Chemistry without metabolic acidosis. Phosphorus 1.4 and electrolytes otherwise unremarkable. LFTs unremarkable. High-sensitivity troponin 2.5, within normal limits. COVID-19 RNA, NAAT test was negative. CT of the abdomen pelvis was performed and did not demonstrate acute findings. Note is made of similar left-sided pelviectasis and urothelial thickening that is unchanged from December. Upon evaluation patient did feel some improvement after IV fluid duration IV APAP. Potassium and phosphorus supplementation was initiated. Given his worsening symptoms we agreed to proceed with plan for admission. Case was discussed with Dr. Conn, [facility] hospitalist, who will evaluate the patient for admission. UA without convincing evidence of infection. Stool studies pending. Triage Nursing notes reviewed and agree them. Prior/outside medical records reviewed Vital Signs: reviewed Differential diagnosis: Infection, dehydration, metabolic abnormality, hypo/hyperglycemia, electrolyte disturbance, anemia, hypoxia, cardiac sources, intracerebral event, toxicologic, neurologic, as well as other pathologies. ER treatment provided: See below. Diagnostics interpreted by me: ECG: Normal sinus rhythm, 87 bpm, no overt ST elevation or depression, QTc 423, QRS 84 Cardiac Monitoring: An order for continuous cardiac monitoring was placed and demonstrated normal sinus rhythm, 87 bpm, no ectopy Laboratory studies: See below Imaging studies: See below Consultation(s): Case was discussed with Dr. Conn, [facility] hospitalist, who will evaluate the patient for admission. HPI: The patient is a pleasant 46-year-old gentleman with a past medical history of MS with chronic left-sided hemiparesis, nonambulatory at baseline who presents to the emergency department for evaluation of worsening low back pain and incontinence of stool as well as palpitations that have been ongoing for the past several days and worsened this morning. He also reports pain related to skin irritation of his sacral area. He denies any fevers, chills, cough, betzaida estion, vomiting. He reports he has not had incontinence of urine or urine retention. He denies any blood in his urine. ROS: See above HPI for pertinent positives & negatives. A total of 10 systems reviewed and were otherwise negative. VITALS:See Below PHYSICAL EXAMINATION: GENERAL: Awake, alert, fatigued-appearing, in no distress HENT: Normocephalic, atraumatic. Oropharynx with dry mucous membranes and otherwise unremarkable. EYES: Normal conjunctiva. Sclera non-icteric. NECK: Supple. No nuchal rigidity. FROM. No JVD. RESPIRATORY: Clear to auscultation. CARDIAC: Regular rate, normal rhythm. Extremities warm and well perfused. Pulses equal. ABDOMEN: Soft, non-distended. No tenderness to palpation. No rebound or guarding. No masses. RECTAL: Deferred. MUSCULOSKELETAL: Chest examination reveals no tenderness. The back is symmetrical on inspection without obvious abnormality. There is no CVA tenderness to palpation. No joint edema. LOWER EXTREMITIES: Calves are equal size bilaterally and non-tender. No edema. No discoloration. NEURO: Baseline left hemiparesis in setting of MS. SKIN: Moderate skin excoriation of his sacral region. No jaundice noted. Miguel Watson MD Past Med/Surg History Medical History Chronic pain syndrome H/O poor personal hygiene Hypercalcemia Left leg pain Multiple sclerosis Obstructive uropathy 2/2 renal stone, caused RUBI, pt admitted for this and hypercalcemia 05/2018 Primary hyperparathyroidism Seizure disorder Many years ago may have had single episode, pt was never treated for this, no reoccurrence. Weakness Surgical History History of cystoscopy WITH STENT PLACEMENT 06/14/18 [facility] Family History Father Stroke Thyroid disorder Other Hypertension Kidney stones Social History Smoking Status: Never smoker Tobacco Type: Smokeless Tobacco (Dip or Chew) Cigarettes Per Day: 0; Second Hand Exposure: Yes; Do You Dip or Chew Tobacco: No; Hx Alcohol Use: Yes Alcohol type: beer Hx Substance Use: Yes Last Used Substance: Days (ago) Preferred Language: Gibraltarian Communication Ability: Effective [employer] Required: No Beliefs That Will Affect Care: None marital status: Current Living Situation: Parent Current Living Situation Comment: Patient states he must do all of his own self care current occupational status: disabled How many Children do You have: 2 Other Information That Helps Us Care for You: No Feels Safe at Home: Yes Safety Concerns: Feels Safe At This Time Assistive Devices: Hospital Bed and Wheelchair Allergies Allergies Allergy/AdvReac Type Severity Reaction Status Date / Time aspirin Allergy Severe airway Verified 04/07/22 15:02 edema; hives Home Meds Home Medications Medication Instructions Recorded Confirmed tizanidine 2 mg tablet 2 mg PO DAILY PRN muscle spasms 09/29/21 04/07/22 apixaban 5 mg tablet (Eliquis) 5 mg PO BID 10/05/21 04/07/22 cholecalciferol (vitamin D3) 25 25 mcg PO DAILY 10/05/21 04/07/22 mcg (1,000 unit) capsule (Vitamin D3) cinacalcet 30 mg tablet 30 mg PO BID 04/07/22 04/07/22 fluoxetine 20 mg capsule 20 mg PO DAILY 04/07/22 04/07/22 Results & Data (ED) Vital Signs Vital Signs - 24 hr 04/07/22 09:39 04/07/22 10:13 04/07/22 10:07 Temperature 36.8 C Temperature Source Oral Pulse Rate 89 Pulse Rate [Apical] Pulse Rate from SpO2 Sensor 94 H Respiratory Rate 20 20 Respiratory Effort / Characteristics Non-Labored Spontaneous Respiratory Depth Normal Blood Pressure 129/87 129/83 Blood Pressure [Left Arm] Blood Pressure Mean 101 98 Blood Pressure Mean [Left Arm] Blood Pressure Position Lying Pulse Oximetry 98 98 99 Oxygen Delivery Method Room Air Room Air Sepsis Recent Fever Within 48 Hours No Sepsis New/Unexplained Change in Mental Status No Sepsis Action Taken by Nursing No Action Required 04/07/22 13:17 04/07/22 13:17 04/07/22 15:00 Temperature Temperature Source Pulse Rate Pulse Rate [Apical] 75 83 Pulse Rate from SpO2 Sensor Respiratory Rate 16 18 Respiratory Effort / Characteristics Respiratory Depth Blood Pressure Blood Pressure [Left Arm] 131/84 107/66 Blood Pressure Mean Blood Pressure Mean [Left Arm] 99 79 Blood Pressure Position Pulse Oximetry 96 96 97 Oxygen Delivery Method Sepsis Recent Fever Within 48 Hours Sepsis New/Unexplained Change in Mental Status Sepsis Action Taken by Nursing Laboratory Data Attestation: I reviewed the patient's lab results. 04/07/22 10:15 04/07/22 10:15 Lab Results 04/07/22 04/07/22 04/07/22 Range/Units 10:15 10:15 10:15 WBC 11.51 H (4.8-10.8) K/ul RBC 4.93 (4.70-6.10) M/uL Hgb 15.7 (14.0-18.0) g/dl Hct 45.1 (42.0-52.0) % MCV 91.5 (80.0-100.0) fL MCH 31.8 (25.0-34.0) pg MCHC 34.8 (32.0-36.0) g/dL RDW Std Deviation 41.8 (36.4-46.3) fL RDW Coeff of Bret 12.5 (11.5-14.5) % Plt Count 271 (130-400) K/uL MPV 10.6 (9.4-12.4) fL Immature Gran % (Auto) 0.5 % Neut % (Auto) 80.0 % Lymph % (Auto) 10.3 % Nash % (Auto) 8.7 % Eos % (Auto) 0.2 % Baso % (Auto) 0.3 % Neut # (Auto) 9.20 H (1.40-6.50) K/uL Lymph # (Auto) 1.19 L (1.2-3.4) K/uL Nash # (Auto) 1.00 H (0.11-0.59) K/uL Eos # (Auto) 0.02 (0-0.50) K/uL Baso # (Auto) 0.04 (0-0.2) K/uL Immature Gran # (Auto) 0.06 (0.01-0.20) K/uL PT 9.9 (9.0-12.0) Seconds INR 0.9 (0.9-1.1) APTT 23.6 (21.0-31.0) Seconds PTT Ratio 0.9 Sodium 139 (136-145) mmol/L Potassium 3.9 (3.5-5.1) mmol/L Chloride 110 H (98-107) mmol/L Carbon Dioxide 22 (21-32) mmol/L Anion Gap 7 (3-11) BUN 16 (6-23) mg/dl Creatinine 1.16 (0.6-1.4) mg/dl Est Cr Clr Drug Dosing 90.5 ml/min Est GFR ( Amer) 85.8 ml/min Est GFR (Non-Af Amer) 74.1 ml/min BUN/Creatinine Ratio 13.8 (10-20) Glucose 105 H (70-99(Fasting)) mg/dl Calcium 10.6 H (8.5-10.1) mg/dl Phosphorus 1.4 L* (2.5-4.9) mg/dl Magnesium 2.2 (1.7-2.4) mg/dl Total Bilirubin 0.6 (0.2-1.0) mg/dl AST 13 (13-39) U/L ALT 20 (7-52) U/L Alkaline Phosphatase 73 (34-104) U/L Troponin I High Sens 2.5 (0-20) pg/ml Total Protein 7.3 (6.0-8.3) gm/dl Albumin 4.2 (3.4-5.0) gm/dl Globulin 3.1 (2.5-4.0) gm/dl Albumin/Globulin Ratio 1.4 (0.9-2) 04/07/22 Range/Units 10:15 WBC (4.8-10.8) K/ul RBC (4.70-6.10) M/uL Hgb (14.0-18.0) g/dl Hct (42.0-52.0) % MCV (80.0-100.0) fL MCH (25.0-34.0) pg MCHC (32.0-36.0) g/dL RDW Std Deviation (36.4-46.3) fL RDW Coeff of Bret (11.5-14.5) % Plt Count (130-400) K/uL MPV (9.4-12.4) fL Immature Gran % (Auto) % Neut % (Auto) % Lymph % (Auto) % Nash % (Auto) % Eos % (Auto) % Baso % (Auto) % Neut # (Auto) (1.40-6.50) K/uL Lymph # (Auto) (1.2-3.4) K/uL Nash # (Auto) (0.11-0.59) K/uL Eos # (Auto) (0-0.50) K/uL Baso # (Auto) (0-0.2) K/uL Immature Gran # (Auto) (0.01-0.20) K/uL PT (9.0-12.0) Seconds INR (0.9-1.1) APTT (21.0-31.0) Seconds PTT Ratio Sodium (136-145) mmol/L Potassium (3.5-5.1) mmol/L Chloride (98-107) mmol/L Carbon Dioxide (21-32) mmol/L Anion Gap (3-11) BUN (6-23) mg/dl Creatinine (0.6-1.4) mg/dl Est Cr Clr Drug Dosing ml/min Est GFR ( Amer) ml/min Est GFR (Non-Af Amer) ml/min BUN/Creatinine Ratio (10-20) Glucose (70-99(Fasting)) mg/dl Calcium (8.5-10.1) mg/dl Phosphorus Cancelled (2.5-4.9) mg/dl Magnesium Cancelled (1.7-2.4) mg/dl Total Bilirubin (0.2-1.0) mg/dl AST (13-39) U/L ALT (7-52) U/L Alkaline Phosphatase (34-104) U/L Troponin I High Sens (0-20) pg/ml Total Protein (6.0-8.3) gm/dl Albumin (3.4-5.0) gm/dl Globulin (2.5-4.0) gm/dl Albumin/Globulin Ratio (0.9-2) Administered Medications Acetaminophen (Acetaminophen 325 Mg Tab) 650 mg PO Q4H PRN PRN Reason: Pain (1,2,3) Or Fever Stop: 05/07/22 18:38 Last Admin: 04/07/22 23:28 Dose: 650 mg Documented By: ALFIE Apixaban (Apixaban 5 Mg Tablet) 5 mg PO BID MANJINDER Stop: 05/07/22 20:59 Last Admin: 04/07/22 20:00 Dose: 5 mg Documented By: ALFIE Cinacalcet (Cinacalcet Hcl 30 Mg Tab) 30 mg PO BIDM MANJINDER Stop: 05/07/22 18:59 Last Admin: 04/07/22 20:00 Dose: 30 mg Documented By: ALFIE Methylprednisolone 1,000 mg/ (Dextrose) 266 mls @ 266 mls/hr IV DAILY MANJINDER Stop: 04/10/22 18:29 Last Infusion: 04/07/22 21:25 Dose: 0 mls/hr Documented By: Admin: 04/07/22 20:01 Dose: 266 mls/hr Documented By: ALFIE Discontinued Medications Sodium Chloride (Nss 1000ml) 1,000 mls @ 999 mls/hr IV .Q1H1M ONE Stop: 04/07/22 12:15 Last Infusion: 04/07/22 15:43 Dose: 0 mls/hr Documented By: Admin: 04/07/22 11:40 Dose: 999 mls/hr Documented By: CRISTÓBAL Acetaminophen (Ofirmev) 1,000 mg in 100 mls @ 400 mls/hr IV NOW STA Stop: 04/07/22 11:43 Last Infusion: 04/07/22 13:19 Dose: 0 mls/hr Documented By: Admin: 04/07/22 11:40 Dose: 400 mls/hr Documented By: CRISTÓBAL Potassium Phosphate 9 mmol/ (Sodium Chloride) 253 mls @ 170 mls/hr IV ONE ONE Stop: 04/07/22 16:29 Last Infusion: 04/07/22 17:12 Dose: 0 mls/hr Documented By: Admin: 04/07/22 15:24 Dose: 170 mls/hr Documented By: MARLI Ioversol (Optiray 350 100ml) 94 ml IV ONCE ONE Stop: 04/07/22 12:29 Last Admin: 04/07/22 12:28 Dose: 94 ml Documented By: JAZ Potassium Phosphate (Pot Phosphate Monobasic W/ Sod Tab) 2 tab PO NOW STA Stop: 04/07/22 14:43 Last Admin: 04/07/22 15:23 Dose: 2 tab Documented By: MARLI Imaging Data Radiologist's Impression: Abdomen/Pelvis CT 04/07/22 11:[address] WITH IV CONTRAST CT DOSE: 915.20 mGycm HISTORY: Acute low back pain with diarrhea abd/low back pain, diarrhea, MS TECHNIQUE: Multiaxial CT images of the abdomen and pelvis were performed following the IV administration of 94 cc of Optiray, A dose lowering technique was utilized adhering to the principles of ALARA. COMPARISON STUDY: 01/11/2022 FINDINGS: No acute process of the imaged lower chest. 3 mm fissural nodule of the right lung base on image 19 series 3 is suggestive of a benign lymph node. No pneumatosis or pneumoperitoneum. Unremarkable spleen, pancreas and adrenal glands. Cholelithiasis without CT evidence of acute cholecystitis. No biliary ductal dilation. Unremarkable liver. Patent portal vein. 4 mm nonobstructing calculus of the inferior pole right kidney. 2.1 cm cyst of the superior pole right kidney with mild layering milk of calcium. Numerous calculi of the left kidney measure up to 1.9 cm in the inferior pole. 2.1 cm calculus of the left renal pelvis is similar to prior with similar appearance of the left-sided pelvocaliectasis with urothelial thickening. Additionally, there is mild dilation of the proximal to mid left ureter without obstructing ureteral calculus identified. Prostamegaly. Unremarkable urinary bladder. No abdominal aortic aneurysm or lymphadenopathy. No bowel obstruction or bowel wall thickening. Normal appendix. No ascites or mesenteric inflammation. Scattered small bowel air-fluid levels. Mild colonic fecal retention. Unremarkable soft tissues. Chronic T8 and T10 compression deformities. No acute fracture or suspicious bone lesion. IMPRESSION: 1. No bowel obstruction or bowel wall thickening. Normal appendix. 2. Left greater than right bilateral nephrolithiasis redemonstrated. 2.1 cm calculus of the left renal pelvis is similar to prior again resulting in mild p yelocaliectasis with mild urothelial thickening. Correlate with urinalysis to exclude infection. 3. Cholelithiasis. 4. Prostamegaly. 5. Additional findings as above. ACT 112: Negative or not required by law. The above report was generated using voice recognition software. It may contain grammatical, syntax or spelling errors. Electronically signed by: Dc Costello M.D. 04/07/2022 12:54 PM Discharge Plan Visit Data Chief Complaint: Arrhythmia/Palpitations ED Provider: Miguel Watson Discharge Problem: Multiple sclerosis, Chronic deep vein thrombosis (DVT) of distal vein of left lower extremity, Hypophosphatemia Patient Disposition: Admitted As Inpatient Discharge Instructions Interventions: ED Discharge Assessment Last Done: 04/07/22 18:14
--- NOTE | 2022-04-07 15:28 | History & Physical Report ---
Date of Service April 07, 2022 Assessment & Plan (1) Generalized weakness: Plan: -Admit to med/tele -The patient is currently afebrile, hemodynamically stable, and stable on RA -The patient has experienced progress weakness in all extremities consistent with previous MS flares -No red flag symptoms such as loss of bowel or bladder function while awake, saddle anesthesia, vision changes or respiratory distress -Patient no longer able to transfer himself out of bed like at baseline -Neurology consult placed, appreciate their assistance, they will see him shortly and provider recommendations -Monitor on tele and pulse oximetry, q4h neuro checks, fall precautions -His low phos today is also likely contributing to his generalized weakness -Will obtain PT/OT consults -Will repeat his phos level later tonight to see where his levels are at after his initial doses of Phos in the ED -AM CBC, BMP, mag, and phos (2) Hypophosphatemia: Plan: -Noted today to be 1.4 -Likely due to his known hyperparathyroidism and his recent increased loos bowel movements -Patient was given 9 mmol of IV potassium phosphate and 2 tabs of PO potassium phosphate prior to admission -Will repeat his levels this evening and replete as needed -Monitor am levels -Continue to monitor on tele, continue vit D and cinacalcet (3) DVT (deep venous thrombosis): Plan: -Continue eliquis (4) Multiple sclerosis: Plan: -See generalized weakness (5) Hypercalcemia: Plan: -Likely due to dehydration and his hyperparathyroidism -S/P 1L NSS in the ED -Continue vitamin D and Cinacalcet Plan The patient was discussed with Dr. Conn at the time of the admission History of Present Illness Chief Complaint: Low back pain, incontinence, palpitations Primary Care Provider: Louis Geoffrey Retana is a 46 year old male w/ multiple sclerosis, primary hyperparathyroidism, chronic DVT, and stool incontinence who presented to the [facility] ED on 04/07/22 with complaints of low back pain, stool incontinence, and palpitations. In the ED the patient was found to be afebrile, hemodynamically stable, and stable on RA. Labs were remarkable for a leukocytosis of 11.51 with a left shift of 9.2, stable hgb and platelets, stable cr at 1.16, phosphorus of 1.4, calcium of 10.6, otherwise stable electrolytes, LFTs WNL, initial high sensitivity trop of 2.5, and covid negative. CT of the abdomen/pelvis with IV contrast was read as "No bowel obstruction or bowel wall thickening. Normal appendix. 2. Left greater than right bilateral nephrolithiasis redemonstrated. 2.1 cm calculus of the left renal pelvis is similar to prior again resulting in mild pyelocaliectasis with mild urothelial thickening. Correlate with urinalysis to exclude infection. 3. Cholelithiasis. 4. Prostamegaly. 5. Additional findings as above.". Prior to admission the patient was given 1L NSS, 1g IV tylenol, 9mmol of Potassium phosphate, and 2 tabs of PO potassium phosphate. At the time of the exam the patient was resting comfortably in bed in no acute distress. He states that since last night he has experienced increased weakness, especially in his lower extremities. When asked, he confirms that this is consistent with his typical MS flares. He explains that at baseline he has left-sided weakness but is normally able to transition himself to his wheelchair. Since last night he has had progressive lower extremity weakness and upper extremity weakness to the point where he cannot transfer himself at this time. He notes some increased soreness in his buttocks from lying in bed over the past 24 hours but denies any recent ulcers or sores. While sleeping he has had multiple loose bowel movements. When asked, he denies recent incontinence of his bowels or bladder while awake. He also denies recent saddle anesthesia. He is not currently on medication for MS and follows with Dr. Graf of [facility]. He denies recent fevers, chills, changes in vision, hearing, taste, and smell, chest pain, SOB, cough, abdominal pain, nausea, vomiting, dysuria, hematuria, and recent falls. When asked about heart palpitations he states that he does not think that he actually had any today. He was angry/frustrated this morning when he could not transfer himself to his wheelchair and thinks this caused his symptoms. At rest he has not had any other palpitations and denies any recent chest pain. Please refer to Dr. Conn's attestation for any changes to the treatment plan Allergies Allergy/AdvReac Type Severity Reaction Status Date / Time aspirin Allergy Severe airway Verified 04/07/22 15:02 edema; hives Home Medications Medication Instructions Recorded Confirmed Type tizanidine 2 mg tablet 2 mg PO DAILY PRN muscle spasms 09/29/21 04/07/22 History apixaban 5 mg tablet (Eliquis) 5 mg PO BID 10/05/21 04/07/22 History cholecalciferol (vitamin D3) 25 25 mcg PO DAILY 10/05/21 04/07/22 History mcg (1,000 unit) capsule (Vitamin D3) cinacalcet 30 mg tablet 30 mg PO BID 04/07/22 04/07/22 History fluoxetine 20 mg capsule 20 mg PO DAILY 04/07/22 04/07/22 History Past Med/Surg History Medical History Chronic pain syndrome H/O poor personal hygiene Hypercalcemia Left leg pain Multiple sclerosis Obstructive uropathy 2/ renal stone, caused RUBI, pt admitted for this and hypercalcemia 05/2018 Primary hyperparathyroidism Seizure disorder Many years ago may have had single episode, pt was never treated for this, no reoccurrence. 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 All systems have been reviewed and are otherwise negative. Physical Exam Physical Exam: Physical Exam: General: In no acute distress, stated age, well-nourished, non-toxic appearing HEENT: Normocephalic, atraumatic, no scleral icterus, pupils around round, symmetrical, and reactive to light, moist mucus membranes, trachea midline, no thyromegaly Chest/Pulm: No respiratory distress, symmetrical chest expansion, clear breath sounds throughout Cardiac: RRR, no murmurs noted Abdomen: Negative for ascites and bruising, normoactive bowel sounds, soft, non-tender to palpation throughout Musculoskeletal: Patient without acute trauma noted on exam, patient with weakness in the left extremities compared to right Extremities: Radial, dorsalis pedis, and posterior tibial pulses are intact and symmetrical, no edema noted in the BL LE's Skin: Warm, dry, no rashes , lesions, or scars noted Neuro: Alert and oriented to person, place, month, year, and president, CN II-XII tested and intact, Patient with decreased strength and distal reflexes in the left lower extremity compared to the right Psych: No acute distress, calm and cooperative during the exam Results & Data Results & Data ([facility]) Vital Signs (Past 12 Hours) Vital Signs Temp Pulse Pulse Resp BP BP Pulse Ox 04/07/22 15:00 83 18 107/66 97 04/07/22 13:17 96 04/07/22 13:17 75 16 131/84 96 04/07/22 10:07 20 129/83 99 04/07/22 10:13 98 04/07/22 09:39 36.8 C 89 20 129/87 98 O2 Del Method 04/07/22 15:00 04/07/22 13:17 04/07/22 13:17 04/07/22 10:07 04/07/22 10:13 Room Air 04/07/22 09:39 Room Air Laboratory Results Abnormal lab results 04/07/22 04/07/22 Range/Units 10:15 10:15 WBC 11.51 H (4.8-10.8) K/ul Neut # (Auto) 9.20 H (1.40-6.50) K/uL Lymph # (Auto) 1.19 L (1.2-3.4) K/uL [place] # (Auto) 1.00 H (0.11-0.59) K/uL Chloride 110 H (98-107) mmol/L Glucose 105 H (70-99(Fasting)) mg/dl Calcium 10.6 H (8.5-10.1) mg/dl Phosphorus 1.4 L* (2.5-4.9) mg/dl Diagnostic Findings Abdomen/Pelvis CT 04/07/22 11:[address] WITH IV CONTRAST CT DOSE: 915.20 mGycm HISTORY: Acute low back pain with diarrhea abd/low back pain, diarrhea, MS TECHNIQUE: Multiaxial CT images of the abdomen and pelvis were performed following the IV administration of 94 cc of Optiray, A dose lowering technique was utilized adhering to the principles of ALARA. COMPARISON STUDY: 01/11/2022 FINDINGS: No acute process of the imaged lower chest. 3 mm fissural nodule of the right lung base on image 19 series 3 is suggestive of a benign lymph node. No pneumatosis or pneumoperitoneum. Unremarkable spleen, pancreas and adrenal glands. Cholelithiasis without CT evidence of acute cholecystitis. No biliary ductal dilation. Unremarkable liver. Patent portal vein. 4 mm nonobstructing calculus of the inferior pole right kidney. 2.1 cm cyst of the superior pole right kidney with mild layering milk of calcium. Numerous calculi of the left kidney measure up to 1.9 cm in the inferior pole. 2.1 cm calculus of the left renal pelvis is similar to prior with similar appearance of the left-sided pelvocaliectasis with urothelial thickening. Additionally, there is mild dilation of the proximal to mid left ureter without obstructing ureteral calculus identified. Prostamegaly. Unremarkable urinary bladder. No abdominal aortic aneurysm or lymphadenopathy. No bowel obstruction or bowel wall thickening. Normal appendix. No ascites or mesenteric inflammation. Scattered small bowel air-fluid levels. Mild colonic fecal retention. Unremarkable soft tissues. Chronic T8 and T10 compression deformities. No acute fracture or suspicious bone lesion. IMPRESSION: 1. No bowel obstruction or bowel wall thickening. Normal appendix. 2. Left greater than right bilateral nephrolithiasis redemonstrated. 2.1 cm calculus of the left renal pelvis is similar to prior again resulting in mild pyelocaliectasis with mild urothelial thickening. Correlate with urinalysis to exclude infection. 3. Cholelithiasis. 4. Prostamegaly. 5. Additional findings as above. ACT 112: Negative or not required by law. The above report was generated using voice recognition software. It may contain grammatical, syntax or spelling errors. Electronically signed by: Dc Costello M.D. 04/07/2022 12:54 PM ECG Additional Comments: Normal sinus rhythm Nondiagnostic inferior Q waves Borderline ECG When compared with ECG of 28-NOV-2021 20:31, No significant change Confirmed by Edin Schwartz ([id number]) on 04/07/2022 12:27:39 PM Code Status & VTE Plan Code Status Full code VTE Prophylaxis Plan VTE Prophylaxis will be ordered: Yes Supervising Physician Co-Signing Physician Notes Patient seen and examined, chart reviewed, case discussed with Eric Fontanez PA-C and I agree with the assessment and plan as above except as otherwise noted Labs and images reviewed Mazin Ramirez is a 46-year-old male with a history of MS, hyperparathyroidism, chronic DVT, and stool incontinence who presented with low back pain, status, incontinence and feeling of unwellness similar to prior MS flares. Seen at bedside after transfer to [facility], pt is comfortable, agrees with plan and reports 'I've been through this many times before.' symmetrical chest rise, breathing unlabored, LLE weakness > RLE weakness. Case was discussed and reviewed with neurology, patient will be placed on 1 g Solu-Medrol daily x3 days. Follow clinically. Weakness is likely multifactorial with low phosphorus, repleted. Agree with assessment and management as documented above. PG Care Time/CCT Total # of Minutes Spent Total Time Spent with Patient: Total time spent is greater than 50% in coordination of care (as documented) at patient's floor/unit and/or counseling patient: Coding [place] [address] INT INP/OBS CARE 3/75MIN Patient Type Established Medical Decision Making High Complexity Diagnoses Generalized weakness R53.1 Hypophosphatemia E83.39 DVT (deep venous thrombosis) I82.502 Affected thrombotic vein of extremity: unspecified vein of extremity Chronicity: chronic DVT location: lower extremity Laterality: left Multiple sclerosis G35 Hypercalcemia E83.52 (1) DVT (deep venous thrombosis) Affected thrombotic vein of extremity: unspecified vein of extremity Chronicity: chronic DVT location: lower extremity Laterality: left Qualified Code(s): I82.502 - Chronic embolism and thrombosis of unspecified deep veins of left lower extremity
--- NOTE | 2022-04-07 18:09 | Neurology Consultation ---
Date of Consultation April 07, 2022 Assessment & Plan (1) Demyelinating disease: Impression: The patient was diagnosed with multiple sclerosis in 2009. Since then, he has been having progressive symptoms. He does not want to be on disease modifying treatment. His last treatment was Ocrevus infusion few years ago. He has been wheelchair-bound, but was able to move to bed and commode on his own until this morning. He has had similar worsening symptoms in the past, which was responsive to pulse steroid treatment. His last hospitalization was in September 2021, and imaging studies reportedly did not show new lesions. Laboratory work-up in emergency department showed low phosphorus level but otherwise unremarkable. The patient reports worsening weakness in lower extremities as well as generalized fatigue and weakness. Recommendations/plan: The patient is not interested in disease modifying treatment and we will not repeat MRI studies at this time unless he does not improve back to his baseline after pulse Solu-Medrol treatment. Solu-Medrol 1 g daily infusions for 3 days. Management of electrolyte abnormalities. Physical therapy and Occupational Therapy evaluations. The patient should be on vitamin D supplements, 5000 international units daily. Follow-up with [facility] neurology as scheduled before. (2) Generalized weakness: Impression: As seen above. (3) Hypophosphatemia: Impression: As seen above. History of Present Illness Reason for Consultation: Generalized weakness, worse in legs Requesting Physician: Eric Fontanez History of Present Illness The patient is a 46-year-old gentleman, with established diagnosis of multiple sclerosis, who presented to the emergency department, after he woke up with worsening leg weakness bilaterally, inability to ambulate, and generalized weakness with fatigue. The patient was diagnosed with multiple sclerosis in 2009. He has had left-sided weakness, and wheelchair-bound for many years. On his baseline, he was able to move from wheelchair to bed and commode. Since this morning, he has not been able to move from his wheelchair, and decided to come to the emergency department. He used to be treated on Betaseron, Copaxone, and Tecfidera. Because of progressive symptoms, eventually, he was started on Ocrevus. However, he was not compliant with this treatment, and he has not been on any disease modifying treatment for last few years. He has not been missing appointments with neurology clinic. During last hospitalization, an appointment was also made with MS specialist, but apparently, the patient does not want to follow them either. He is not interested in starting on any disease modifying treatment at this time. In emergency department, laboratory work-up was unremarkable other than significantly low level of phosphorus. The patient denies using any new medications, supplements, and his nutrition has been the same. The patient has no urinary incontinence but occasional, nocturnal bowel incontinence for a long time. He has been admitted multiple times in the past, with similar symptoms, and each time, he experienced benefit from pulse steroid treatment. Brain and whole spine MRI with and without contrast was done during the last hospitalization in September 2021, which showed chronic, extensive subcortical cerebral demyelinating plaques but also chronic demyelinating lesions of the cervical and thoracic spine. Based on radiology report, there was no contrast-enhancement then, but according to Dr. Polanco, there was some faint contrast enhancement of some of cervical and thoracic demyelinating plaques. The patient denies any fall and trauma. His mental status has not been changed. He has history of a single remote seizure-like activity but has not been treated for antiepileptic medications and denies recurrence. I have reviewed the patient's chart including imaging studies and visualized them personally. I have discussed the case with the patient and answered his questions in detail. Allergies Allergy/AdvReac Type Severity Reaction Status Date / Time aspirin Allergy Severe airway Verified 04/07/22 15:02 edema; hives Home Medications Medication Instructions Recorded Confirmed Type tizanidine 2 mg tablet 2 mg PO DAILY PRN muscle spasms 09/29/21 04/07/22 History apixaban 5 mg tablet (Eliquis) 5 mg PO BID 10/05/21 04/07/22 History cholecalciferol (vitamin D3) 25 25 mcg PO DAILY 10/05/21 04/07/22 History mcg (1,000 unit) capsule (Vitamin D3) cinacalcet 30 mg tablet 30 mg PO BID 04/07/22 04/07/22 History fluoxetine 20 mg capsule 20 mg PO DAILY 04/07/22 04/07/22 History Patient History Medical History Chronic pain syndrome H/O poor personal hygiene Hypercalcemia Left leg pain Multiple sclerosis Obstructive uropathy 2/2 renal stone, caused RUBI, pt admitted for this and hypercalcemia 05/2018 Primary hyperparathyroidism Seizure disorder Many years ago may have had single episode, pt was never treated for this, no reoccurrence. Weakness Surgical History History of cystoscopy WITH STENT PLACEMENT 06/14/18 [facility] Family History Father Stroke Thyroid disorder Other Hypertension Kidney stones Social History Smoking Status: Never smoker Tobacco Type: Smokeless Tobacco (Dip or Chew) Cigarettes Per Day: 0; Second Hand Exposure: Yes (family); Hx Alcohol Use: Yes Alcohol type: beer Hx Substance Use: No Preferred Language: Swedish Communication Ability: Effective Pocket Operator Required: No Beliefs That Will Affect Care: None marital status: Current Living Situation: Parent Current Living Situation Comment: Patient states he must do all of his own self care current occupational status: disabled How many Children do You have: 2 Feels Safe at Home: Yes Assistive Devices: Wheelchair Review of Systems Review of Systems: All systems reviewed & are unremarkable except as noted in HPI & below Physical Exam Physical Exam: General Examination: Constitutional: Well developed person in no acute distress. HENT: Normal exam with inspection. CV: Hearth rhythm is regular. Neck: Supple, no carotid bruits. Lungs: Non-labored and comfortable breathing. Abdomen: Soft, non-tender, non-distended. Skin: No rash or ecchymosis. Extremities: No edema or cyanosis NEUROLOGICAL EXAMINATION: Mental Status: Alert and oriented to place, person and time. Cranial Nerves: II-XII are intact. No nystagmus. Funduscopy: Normal looking optic discs. Motor: 5/5 in right upper and 5-/5 in left upper extremities. 4/5 in right lower and 2+to 3-/5 in left lower extremities. Tone: Increased in legs Sensory: Intact grossly. No sensary leveling or saddle anesthesia. Coordination: No dysmetria with FTN testing. Speech: Fluent. Comprehension is intact. Gait: Unable to assess. DTRs: 2+ in upper extremities, 3+ in knees and 4+ in ankles with ankle clonus. Left Babinsky. Results & Data ([facility]) Vital Signs (Past 12 Hours) Vital Signs Temp Pulse Pulse Resp BP BP Pulse Ox 04/07/22 16:02 66 18 105/87 96 04/07/22 15:00 83 18 107/66 97 04/07/22 13:17 96 04/07/22 13:17 75 16 131/84 96 04/07/22 10:07 20 129/83 99 04/07/22 10:13 98 04/07/22 09:39 36.8 C 89 20 129/87 98 O2 Del Method 04/07/22 16:02 04/07/22 15:00 04/07/22 13:17 04/07/22 13:17 04/07/22 10:07 04/07/22 10:13 Room Air 04/07/22 09:39 Room Air Laboratory Results Laboratory Results - last 24 hr 04/07/22 04/07/22 04/07/22 10:15 10:15 10:15 WBC 11.51 H RBC 4.93 Hgb 15.7 Hct 45.1 MCV 91.5 MCH 31.8 MCHC 34.8 RDW Std Deviation 41.8 RDW Coeff of Bret 12.5 Plt Count 271 MPV 10.6 Immature Gran % (Auto) 0.5 Neut % (Auto) 80.0 Lymph % (Auto) 10.3 [place] % (Auto) 8.7 Eos % (Auto) 0.2 Baso % (Auto) 0.3 Neut # (Auto) 9.20 H Lymph # (Auto) 1.19 L [place] # (Auto) 1.00 H Eos # (Auto) 0.02 Baso # (Auto) 0.04 Immature Gran # (Auto) 0.06 PT 9.9 INR 0.9 APTT 23.6 PTT Ratio 0.9 Sodium 139 Potassium 3.9 Chloride 110 H Carbon Dioxide 22 Anion Gap 7 BUN 16 Creatinine 1.16 Est Cr Clr Drug Dosing 90.5 Est GFR ( Amer) 85.8 Est GFR (Non-Af Amer) 74.1 BUN/Creatinine Ratio 13.8 Glucose 105 H Calcium 10.6 H Phosphorus 1.4 L* Magnesium 2.2 Total Bilirubin 0.6 AST 13 ALT 20 Alkaline Phosphatase 73 Troponin I High Sens 2.5 Total Protein 7.3 Albumin 4.2 Globulin 3.1 Albumin/Globulin Ratio 1.4 SARS-CoV-2, RNA, NAAT 04/07/22 04/07/22 10:15 Unknown WBC RBC Hgb Hct MCV MCH MCHC RDW Std Deviation RDW Coeff of Bret Plt Count MPV Immature Gran % (Auto) Neut % (Auto) Lymph % (Auto) [place] % (Auto) Eos % (Auto) Baso % (Auto) Neut # (Auto) Lymph # (Auto) [place] # (Auto) Eos # (Auto) Baso # (Auto) Immature Gran # (Auto) PT INR APTT PTT Ratio Sodium Potassium Chloride Carbon Dioxide Anion Gap BUN Creatinine Est Cr Clr Drug Dosing Est GFR ( Amer) Est GFR (Non-Af Amer) BUN/Creatinine Ratio Glucose Calcium Phosphorus Cancelled Magnesium Cancelled Total Bilirubin AST ALT Alkaline Phosphatase Troponin I High Sens Total Protein Albumin Globulin Albumin/Globulin Ratio SARS-CoV-2, RNA, NAAT NEGATIVE Diagnostic Findings Abdomen/Pelvis CT 04/07/22 11:[address] WITH IV CONTRAST CT DOSE: 915.20 mGycm HISTORY: Acute low back pain with diarrhea abd/low back pain, diarrhea, MS TECHNIQUE: Multiaxial CT images of the abdomen and pelvis were performed following the IV administration of 94 cc of Optiray, A dose lowering technique was utilized adhering to the principles of ALARA. COMPARISON STUDY: 01/11/2022 FINDINGS: No acute process of the imaged lower chest. 3 mm fissural nodule of the right lung base on image 19 series 3 is suggestive of a benign lymph node. No pneumatosis or pneumoperitoneum. Unremarkable spleen, pancreas and adrenal glands. Cholelithiasis without CT evidence of acute cholecystitis. No biliary ductal dilation. Unremarkable liver. Patent portal vein. 4 mm nonobstructing calculus of the inferior pole right kidney. 2.1 cm cyst of the superior pole right kidney with mild layering milk of calcium. Numerous calculi of the left kidney measure up to 1.9 cm in the inferior pole. 2.1 cm calculus of the left renal pelvis is similar to prior with similar appearance of the left-sided pelvocaliectasis with urothelial thickening. Additionally, there is mild dilation of the proximal to mid left ureter without obstructing ureteral calculus identified. Prostamegaly. Unremarkable urinary bladder. No abdominal aortic aneurysm or lymphadenopathy. No bowel obstruction or bowel wall thickening. Normal appendix. No ascites or mesenteric inflammation. Scattered small bowel air-fluid levels. Mild colonic fecal retention. Unremarkable soft tissues. Chronic T8 and T10 compression deformities. No acute fracture or suspicious bone lesion. IMPRESSION: 1. No bowel obstruction or bowel wall thickening. Normal appendix. 2. Left greater than right bilateral nephrolithiasis redemonstrated. 2.1 cm calculus of the left renal pelvis is similar to prior again resulting in mild pyelocaliectasis with mild urothelial thickening. Correlate with urinalysis to exclude infection. 3. Cholelithiasis. 4. Prostamegaly. 5. Additional findings as above. ACT 112: Negative or not required by law. The above report was generated using voice recognition software. It may contain grammatical, syntax or spelling errors. Electronically signed by: Dc Costello M.D. 04/07/2022 12:54 PM Brain MRI--1. Compared to the previous examination, there is no significant interval change with no acute intracerebral pathology. 2. Extensive white matter T2 hyperintense foci and increase foci on FLAIR weighted imaging is again seen and essentially unchanged. 3. There are no enhancing plaques present with no MR evidence for active demyelination. 4. Mild cerebral cortical atrophy is again seen. Electronically signed by: Giovanny Lizama M.D. 10/07/2021 C-spine MRI-1. Compared to the previous study, there is normal signal identified within the spinal cord with no enhancing plaques demonstrated. Electronically signed by: Giovanny Lizama M.D. 10/07/2021 T spine MRI--1. Minimal increased signal is again seen at the T6-7 level with minimal enhancement present following contrast administration characteristic of an active plaque. Electronically signed by: Giovanny Lizama M.D. 10/07/2021
[2022-04-07] MEDS: APIXABAN 5 MG TABLET PO SCH (20:00)
[2022-04-07] MEDS: CINACALCET HCL 30 MG TAB PO SCH (20:00)
[2022-04-07] MEDS: methylPREDNISolone 1,000 MG in DEXTROSE 5% 250 ML IV SCH (20:01)
[2022-04-07] MEDS: ACETAMINOPHEN 325 MG TAB PO PRN (23:28)
[2022-04-07 23:56] LABS: Appearance Urine Cloudy (Clear); Bacteria Urine Automated Negative (Negative); Bilirubin Urine Negative (Negative); Blood Urine 3+ (Negative); Cast Urine Automated 0 /lpf (0-5); Color Urine Yellow; Glucose Urine UA Negative (Negative); Ketones Urine 1+ (Negative); Leukocyte Esterase Urine Negative (Negative); Nitrite Urine Negative (Negative); Protein Urine 1+ (Negative); RBC Urine Automated >30 /hpf (0-4); Specific Gravity Urine 1.031 (1.000-1.030); Urobilinogen Urine Negative (Negative); pH Urine 6.5 (4.5-7.5)
[2022-04-08 03:08] LABS: Adenovirus F 40/41 PCR Not Detected (NotDetected); Astrovirus PCR Not Detected (NotDetected); Campylobacter PCR Not Detected (NotDetected); Cryptosporidium PCR Not Detected (NotDetected); Cyclospora cayetanensis PCR Not Detected (NotDetected); Entamoeba histolytica PCR Not Detected (NotDetected); Enteroaggregative E.coli(EAEC) Not Detected (NotDetected); Enteropathogenic E.coli (EPEC) Not Detected (NotDetected); Enterotoxigenic E.coli (ETEC) Not Detected (NotDetected); Giardia lamblia PCR Not Detected (NotDetected); Norovirus GI/GII PCR Not Detected (NotDetected); Plesiomonas shigelloides PCR Not Detected (NotDetected); Rotavirus A PCR Not Detected (NotDetected); Salmonella PCR Not Detected (NotDetected); Sapovirus PCR Not Detected (NotDetected); Shiga-like Toxin E.coli (STEC) Not Detected (NotDetected); Shigella/Enteroinvasive E.coli Not Detected (NotDetected); Vibrio cholerae PCR Not Detected (NotDetected); Vibrio species PCR Not Detected (NotDetected); Yersinia enterocolitica PCR Not Detected (NotDetected)
[2022-04-08] MEDS: ACETAMINOPHEN 325 MG TAB PO PRN ×3 (05:58→20:23)
[2022-04-08 06:32] LABS: Hematocrit (blood only) 41.9 % (42.0-52.0); Hemoglobin 14.5 g/dl (14.0-18.0); Mean Corpuscular Hemoglobin 31.9 pg (25.0-34.0); Mean Corpuscular Hgb Conc 34.6 g/dL (32.0-36.0); Mean Corpuscular Volume 92.3 fL (80.0-100.0); Mean Platelet Volume 10.2 fL (9.4-12.4); Platelet Count 243 K/uL (130-400); RDW Coefficient of Variation 12.3 % (11.5-14.5); RDW Standard Deviation 41.4 fL (36.4-46.3); Red Blood Count 4.54 M/uL (4.70-6.10); White Blood Count 6.24 K/ul (4.8-10.8)
[2022-04-08 06:59] LABS: BUN Creatinine Ratio 11.8 (10-20); Calcium 9.9 mg/dl (8.5-10.1); Creatinine Clr Calc Pharmacy 95.7 ml/min; Est GFR (African American) 83.2 ml/min; Est GFR (Non-African American) 71.8 ml/min; Magnesium 2.1 mg/dl (1.7-2.4); Potassium 4.6 mmol/L (3.5-5.1)
[2022-04-08] MEDS: FLUoxetine HCL 20 MG CAP PO SCH (08:24)
[2022-04-08] MEDS: APIXABAN 5 MG TABLET PO SCH ×2 (08:25→20:23)
[2022-04-08] MEDS: CINACALCET HCL 30 MG TAB PO SCH ×2 (08:26→17:01)
[2022-04-08] MEDS: CHOLECALCIFEROL 5,000 UNITS 125 MCG TAB PO SCH (08:26)
[2022-04-08] MEDS: methylPREDNISolone 1,000 MG in DEXTROSE 5% 250 ML IV SCH (08:27)
[2022-04-08] MEDS ORDERED: PNEUMOCOCCAL POLYSACCHARIDES 25 MCG/0.5 ML VIAL/SYR IM ONE (09:00)
--- NOTE | 2022-04-08 15:51 | Hospitalist Progress Note ---
Date of Service April 08, 2022 Assessment & Plan (1) Generalized weakness: Plan: -Admitted to the hospital on account of weakness and pain -The patient has experienced progress weakness in all extremities consistent with previous MS flares -No red flag symptoms such as loss of bowel or bladder function while awake, saddle anesthesia, vision changes or respiratory distress -Patient no longer able to transfer himself out of bed like at baseline -Neurology on consult has been started on Pulse Steroids, IV Solumedrol 1g daily for 3 days -Continue PT/OT -Patient also complains of pain on his left side (2) Hypophosphatemia: Plan: -Replaced (3) DVT (deep venous thrombosis): Plan: -Continue eliquis (4) Multiple sclerosis: Plan: -See generalized weakness (5) Hypercalcemia: Plan: Resolved Plan continue hospitalization, follow up with [facility] neurology upon d/c Admission and Anticipated Discharge Date Admission Date: April 07, 2022 Subjective patient seen and examined, very cranky and complaining of left sided pain and weakness Review of Systems Review of Systems: All systems reviewed are negative, apart from the ones contained in the history. Physical Exam Physical Exam: The patient is awake, alert and oriented 3, well developed and well nourished, normocephalic and atraumatic, lying in bed and in no acute distress. HEENT--PERRL, EOMI, mucous membranes and oropharynx mildly dry Neck--supple. No JVD. No bruits. Thyroid normal, trachea midline, no adenopathy. Heart--normal S1 and S2. No murmurs, rubs or gallops. Lungs--clear bilaterally, no respiratory distress, no accessory muscle use. Abdomen--normal bowel sounds and soft. Mild epigastric and left sided abdominal pain Extremities--left hemiparesis Dermatologic--normal skin turgor, normal color, no abnormal lymph nodes, no rash. Neurologic--cranial nerves II through XII grossly intact. Rheumatologic--normal range of motion. Psychiatric--normal affect. Results & Data Results & Data ([facility]) Vital Signs (Past 12 Hours) Vital Signs Temp Pulse Pulse Pulse Resp BP Pulse Ox 04/08/22 15:32 97.5 F L 65 16 140/78 98 04/08/22 15:28 107 H 04/08/22 11:11 98.1 F 102 H 12 148/76 H 96 04/08/22 07:55 96.8 F L 90 12 144/76 H 96 O2 Del Method 04/08/22 15:32 Room Air 04/08/22 15:28 04/08/22 11:11 Room Air 04/08/22 07:55 Room Air PG Care Time/CCT Total # of Minutes Spent Total Time Spent with Patient: Total time spent is greater than 50% in coordination of care (as documented) at patient's floor/unit and/or counseling patient: Coding Level of Care Code 34055 SUB INP/OBS CARE 2/35MIN Diagnoses Generalized weakness R53.1 Hypophosphatemia E83.39 DVT (deep venous thrombosis) I82.502 Affected thrombotic vein of extremity: unspecified vein of extremity Chronicity: chronic DVT location: lower extremity Laterality: left Multiple sclerosis G35 Hypercalcemia E83.52 Time Spent (min) 35 (1) DVT (deep venous thrombosis) Affected thrombotic vein of extremity: unspecified vein of extremity Chronicity: chronic DVT location: lower extremity Laterality: left Qualified Code(s): I82.502 - Chronic embolism and thrombosis of unspecified deep veins of left lower extremity
[2022-04-08] MEDS ORDERED: TAMSULOSIN HCL 0.4 MG CAP PO ONE (16:03)
[2022-04-08] MEDS: tiZANidine HCL 4 MG TABLET PO PRN (21:16)
[2022-04-09 08:15] LABS: Hematocrit (blood only) 39.6 % (42.0-52.0); Hemoglobin 13.6 g/dl (14.0-18.0); Mean Corpuscular Hemoglobin 31.4 pg (25.0-34.0); Mean Corpuscular Hgb Conc 34.3 g/dL (32.0-36.0); Mean Corpuscular Volume 91.5 fL (80.0-100.0); Mean Platelet Volume 10.1 fL (9.4-12.4); Platelet Count 256 K/uL (130-400); RDW Coefficient of Variation 12.5 % (11.5-14.5); RDW Standard Deviation 41.3 fL (36.4-46.3); Red Blood Count 4.33 M/uL (4.70-6.10); White Blood Count 16.05 K/ul (4.8-10.8)
[2022-04-09 08:30] LABS: Calcium 9.9 mg/dl (8.5-10.1); Creatinine Clr Calc Pharmacy 84.4 ml/min; Est GFR (African American) 71.4 ml/min; Est GFR (Non-African American) 61.6 ml/min; Magnesium 2.2 mg/dl (1.7-2.4); Phosphorus 1.7 mg/dl (2.5-4.9); Potassium 3.8 mmol/L (3.5-5.1)
[2022-04-09] MEDS: CINACALCET HCL 30 MG TAB PO SCH ×2 (08:31→16:58)
[2022-04-09] MEDS: CHOLECALCIFEROL 5,000 UNITS 125 MCG TAB PO SCH (08:31)
[2022-04-09] MEDS: TAMSULOSIN HCL 0.4 MG CAP PO SCH (08:31)
[2022-04-09] MEDS: APIXABAN 5 MG TABLET PO SCH ×2 (08:31→20:40)
[2022-04-09] MEDS: FLUoxetine HCL 20 MG CAP PO SCH (08:31)
[2022-04-09] MEDS: ACETAMINOPHEN 325 MG TAB PO PRN ×2 (08:34→17:00)
[2022-04-09] MEDS: methylPREDNISolone 1,000 MG in DEXTROSE 5% 250 ML IV SCH (09:06)
--- NOTE | 2022-04-09 11:34 | Hospitalist Progress Note ---
Date of Service April 09, 2022 Assessment & Plan (1) Generalized weakness: Plan: -Admitted to the hospital on account of weakness and pain -The patient has experienced progress weakness in all extremities consistent with previous MS flares -No red flag symptoms such as loss of bowel or bladder function while awake, saddle anesthesia, vision changes or respiratory distress -Patient no longer able to transfer himself out of bed like at baseline -Neurology on consult has been started on Pulse Steroids, IV Solumedrol 1g daily for 3 days, today is day 3 -Continue PT/OT -Patient feels much improved today (2) Hematuria: Plan: urinalysis showed 3+ RBC Due to kidney stone patient aware he has a stone, but its non obstructive and it does not bother him (3) Hypophosphatemia: Plan: -Replaced (4) DVT (deep venous thrombosis): Plan: -Continue eliquis (5) Multiple sclerosis: Plan: -See generalized weakness (6) Hypercalcemia: Plan: Resolved Plan d/c tomorrow, follow up with [facility] neurology upon d/c Admission and Anticipated Discharge Date Admission Date: April 07, 2022 Subjective patient seen and examined, feels much improved, although complained of dark colored urine Review of Systems Review of Systems: All systems reviewed are negative, apart from the ones contained in the history. Physical Exam Physical Exam: The patient is awake, alert and oriented 3, well developed and well nourished, normocephalic and atraumatic, lying in bed and in no acute distress. HEENT--PERRL, EOMI, mucous membranes and oropharynx mildly dry Neck--supple. No JVD. No bruits. Thyroid normal, trachea midline, no adenopathy. Heart--normal S1 and S2. No murmurs, rubs or gallops. Lungs--clear bilaterally, no respiratory distress, no accessory muscle use. Abdomen--normal bowel sounds and soft. Mild epigastric and left sided abdominal pain Extremities--left hemiparesis Dermatologic--normal skin turgor, normal color, no abnormal lymph nodes, no rash. Neurologic--cranial nerves II through XII grossly intact. Rheumatologic--normal range of motion. Psychiatric--normal affect. Results & Data Results & Data ([facility]) Vital Signs (Past 12 Hours) Vital Signs Temp Pulse Pulse Resp BP Pulse Ox O2 Del Method 04/09/22 09:57 Room Air 04/09/22 07:59 98.6 F 87 20 133/75 94 Room Air 04/09/22 07:56 81 04/09/22 02:57 97.7 F 75 18 112/65 96 Room Air 04/08/22 23:57 72 PG Care Time/CCT Total # of Minutes Spent Total Time Spent with Patient: Total time spent is greater than 50% in coordination of care (as documented) at patient's floor/unit and/or counseling patient: Coding Level of Care Code 39825 SUB INP/OBS CARE 2/35MIN Diagnoses Generalized weakness R53.1 Hematuria R31.9 Hypophosphatemia E83.39 DVT (deep venous thrombosis) I82.502 Affected thrombotic vein of extremity: unspecified vein of extremity Chronicity: chronic DVT location: lower extremity Laterality: left Multiple sclerosis G35 Hypercalcemia E83.52 Time Spent (min) 35 (1) DVT (deep venous thrombosis) Affected thrombotic vein of extremity: unspecified vein of extremity Chronicity: chronic DVT location: lower extremity Laterality: left Qualified Code(s): I82.502 - Chronic embolism and thrombosis of unspecified deep veins of left lower extremity
--- NOTE | 2022-04-09 13:45 | Neurology Progress Note ---
Date of Service April 09, 2022 Assessment & Plan (1) Demyelinating disease: Plan: Impression: The patient was diagnosed with multiple sclerosis in 2009. Since then, he has been having progressive symptoms. He has not been on disease modifying treatment. His last treatment was Ocrevus infusion few years ago. He has been wheelchair-bound, but was able to move to bed and commode on his own until admission date. He has had similar worsening symptoms in the past, which was responsive to pulse steroid treatment. His last hospitalization was in September 2021, and imaging studies reportedly did not show new lesions. Laboratory work-up in emergency department showed low phosphorus level but otherwise unremarkable. The patient reports worsening weakness in lower extremities as well as generalized fatigue and weakness. He has responded well to pulse steroid treatment and he believes he is very close to his baseline. Received 3rd dose of solu medrol infusion today. Recommendations/plan: The patient is willing to restart on disease modifying treatment based on our conversation and has already contacted with [facility] neurology to restrt on Ocrevus infusion. Solu-Medrol 1 g daily infusions for 3 days is completed. The patient should continue using vitamin D supplements, 5000 international units daily. Continue on tizanidine for spasticity as before. Continue apixaban as before, for DVTs. Medrol Dosepak starting tomorrow. If the patient stays stable, then he can be discharged home tomorrow. Follow-up with [facility] neurology as scheduled before. (2) Generalized weakness: Plan: Impression: As seen above. (3) Hypophosphatemia: Plan: Impression: As seen above. Admission and Anticipated Discharge Date Admission Date: April 07, 2022 Subjective The patient reports improvement of strength. He is very close to his baseline. He cooperated with physical therapy. He received third dose of1 g Solu-Medrol today. He contacted with his neurologist and set up a follow-up appointment to restart on Ocrevus infusion. He denies any new neurological symptoms. Review of Systems Review of Systems: All systems reviewed & are unremarkable except as noted in Subjective Physical Exam Physical Exam: General Examination: Constitutional: Well developed person in no acute distress. HENT: Normal exam with inspection. CV: Hearth rhythm is regular. Neck: Supple, no carotid bruits. Lungs: Non-labored and comfortable breathing. Abdomen: Soft, non-tender, non-distended. Skin: No rash or ecchymosis. Extremities: No edema or cyanosis NEUROLOGICAL EXAMINATION: Mental Status: Alert and oriented to place, person and time. Cranial Nerves: II-XII are intact. No nystagmus. Funduscopy: Normal looking optic discs. Motor: 5/5 in right upper and 5-/5 in left upper extremities. 4/5 in right lower and 3-/5 in left lower extremities. Tone: Increased in legs Sensory: Intact grossly. No sensory leveling or saddle anesthesia. Coordination: No dysmetria with FTN testing. Speech: Fluent. Comprehension is intact. Gait: Unable to assess. DTRs: 2+ in upper extremities, 3+ in knees and 4+ in ankles with ankle clonus. Left Babinsky. Results & Data ([facility]) Vital Signs (Past 12 Hours) Vital Signs Temp Pulse Pulse Resp BP Pulse Ox O2 Del Method 04/09/22 11:31 36.5 C 75 20 149/73 H 96 Room Air 04/09/22 09:57 Room Air 04/09/22 07:59 37 C 87 20 133/75 94 Room Air 04/09/22 07:56 81 04/09/22 02:57 36.5 C 75 18 112/65 96 Room Air Laboratory Results Laboratory Results - last 24 hr 04/09/22 04/09/22 07:49 07:49 WBC 16.05 H RBC 4.33 L Hgb 13.6 L Hct 39.6 L MCV 91.5 MCH 31.4 MCHC 34.3 RDW Std Deviation 41.3 RDW Coeff of Bret 12.5 Plt Count 256 MPV 10.1 Sodium 138 Potassium 3.8 Chloride 112 H Carbon Dioxide 20 L Anion Gap 6 BUN 27 H Creatinine 1.35 Est Cr Clr Drug Dosing 84.4 Est GFR ( Amer) 71.4 Est GFR (Non-Af Amer) 61.6 BUN/Creatinine Ratio 20.0 Glucose 141 H Calcium 9.9 Phosphorus 1.7 L Magnesium 2.2 Diagnostic Findings Abdomen/Pelvis CT 04/07/22 11:[address] WITH IV CONTRAST CT DOSE: 915.20 mGycm HISTORY: Acute low back pain with diarrhea abd/low back pain, diarrhea, MS TECHNIQUE: Multiaxial CT images of the abdomen and pelvis were performed following the IV administration of 94 cc of Optiray, A dose lowering technique was utilized adhering to the principles of ALARA. COMPARISON STUDY: 01/11/2022 FINDINGS: No acute process of the imaged lower chest. 3 mm fissural nodule of the right lung base on image 19 series 3 is suggestive of a benign lymph node. No pneumatosis or pneumoperitoneum. Unremarkable spleen, pancreas and adrenal glands. Cholelithiasis without CT evidence of acute cholecystitis. No biliary ductal dilation. Unremarkable liver. Patent portal vein. 4 mm nonobstructing calculus of the inferior pole right kidney. 2.1 cm cyst of the superior pole right kidney with mild layering milk of calcium. Numerous calculi of the left kidney measure up to 1.9 cm in the inferior pole. 2.1 cm calculus of the left renal pelvis is similar to prior with similar appearance of the left-sided pelvocaliectasis with urothelial thickening. Additionally, there is mild dilation of the proximal to mid left ureter without obstructing ureteral calculus identified. Prostamegaly. Unremarkable urinary bladder. No abdominal aortic aneurysm or lymphadenopathy. No bowel obstruction or bowel wall thickening. Normal appendix. No ascites or mesenteric inflammation. Scattered small bowel air-fluid levels. Mild colonic fecal retention. Unremarkable soft tissues. Chronic T8 and T10 compression deformities. No acute fracture or suspicious bone lesion. IMPRESSION: 1. No bowel obstruction or bowel wall thickening. Normal appendix. 2. Left greater than right bilateral nephrolithiasis redemonstrated. 2.1 cm calculus of the left renal pelvis is similar to prior again resulting in mild pyelocaliectasis with mild urothelial thickening. Correlate with urinalysis to exclude infection. 3. Cholelithiasis. 4. Prostamegaly. 5. Additional findings as above. ACT 112: Negative or not required by law. The above report was generated using voice recognition software. It may contain grammatical, syntax or spelling errors. Electronically signed by: Dc Costello M.D. 04/07/2022 12:54 PM
[2022-04-09] MEDS: tiZANidine HCL 4 MG TABLET PO PRN (17:31)
[2022-04-10 07:32] LABS: Hematocrit (blood only) 38.3 % (42.0-52.0); Hemoglobin 13.4 g/dl (14.0-18.0); Mean Corpuscular Hemoglobin 32.2 pg (25.0-34.0); Mean Corpuscular Volume 92.1 fL (80.0-100.0); Mean Platelet Volume 10.4 fL (9.4-12.4); Platelet Count 269 K/uL (130-400); RDW Coefficient of Variation 12.8 % (11.5-14.5); RDW Standard Deviation 42.6 fL (36.4-46.3); Red Blood Count 4.16 M/uL (4.70-6.10); White Blood Count 15.77 K/ul (4.8-10.8)
[2022-04-10] MEDS: FLUoxetine HCL 20 MG CAP PO SCH (07:53)
[2022-04-10] MEDS: TAMSULOSIN HCL 0.4 MG CAP PO SCH (07:53)
[2022-04-10] MEDS: APIXABAN 5 MG TABLET PO SCH (07:53)
[2022-04-10] MEDS: CINACALCET HCL 30 MG TAB PO SCH (07:53)
[2022-04-10] MEDS: CHOLECALCIFEROL 5,000 UNITS 125 MCG TAB PO SCH (07:54)
[2022-04-10 07:56] LABS: BUN Creatinine Ratio 21.3 (10-20); Creatinine Clr Calc Pharmacy 89.8 ml/min; Est GFR (African American) 76.9 ml/min; Est GFR (Non-African American) 66.4 ml/min; Potassium 3.8 mmol/L (3.5-5.1)
[2022-04-10 08:00] LABS: Phosphorus 1.5 mg/dl (2.5-4.9)
[2022-04-10] MEDS: ACETAMINOPHEN 325 MG TAB PO PRN (08:04)
[2022-04-10] MEDS: methylPREDNISolone 1,000 MG in DEXTROSE 5% 250 ML IV SCH (08:05)
--- NOTE | 2022-04-10 13:15 | Discharge Summary ---
Date of Service April 10, 2022 Admission HPI Per Admitting Provider Mazin is a 46 year old male w/ multiple sclerosis, primary hyperparathyroidism, chronic DVT, and stool incontinence who presented to the [facility] ED on 04/07/22 with complaints of low back pain, stool incontinence, and pal pitations. In the ED the patient was found to be afebrile, hemodynamically stable, and stable on RA. Labs were remarkable for a leukocytosis of 11.51 with a left shift of 9.2, stable hgb and platelets, stable cr at 1.16, phosphorus of 1.4, calcium of 10.6, otherwise stable electrolytes, LFTs WNL, initial high sensitivity trop of 2.5, and covid negative. CT of the abdomen/pelvis with IV contrast was read as "No bowel obstruction or bowel wall thickening. Normal appendix. 2. Left greater than right bilateral nephrolithiasis redemonstrated. 2.1 cm calculus of the left renal pelvis is similar to prior again resulting in mild pyelocaliectasis with mild urothelial thickening. Correlate with urinalysis to exclude infection. 3. Cholelithiasis. 4. Prostamegaly. 5. Additional findings as above.". Prior to admission the patient was given 1L NSS, 1g IV tylenol, 9mmol of Potassium phosphate, and 2 tabs of PO potassium phosphate. At the time of the exam the patient was resting comfortably in bed in no acute distress. He states that since last night he has experienced increased weakness, especially in his lower extremities. When asked, he confirms that this is consistent with his typical MS flares. He explains that at baseline he has left-sided weakness but is normally able to transition himself to his wheelchair. Since last night he has had progressive lower extremity weakness and upper extremity weakness to the point where he cannot transfer himself at this time. He notes some increased soreness in his buttocks from lying in bed over the past 24 hours but denies any recent ulcers or sores. While sleeping he has had multiple loose bowel movements. When asked, he denies recent incontinence of his bowels or bladder while awake. He also denies recent saddle anesthesia. He is not currently on medication for MS and follows with Dr. Graf of [facility]. He denies recent fevers, chills, changes in vision, hearing, taste, and smell, chest pain, SOB, cough, abdominal pain, nausea, vomiting, dysuria, hematuria, and recent falls. When asked about heart palpitations he states that he does not think that he actually had any today. He was angry/frustrated this morning when he could not transfer himself to his wheelchair and thinks this caused his symptoms. At rest he has not had any other palpitations and denies any recent chest pain. Principal Diagnosis MS flare Discharge Exam The patient is awake, alert and oriented 3, well developed and well nourished, normocephalic and atraumatic, lying in bed and in no acute distress. HEENT--PERRL, EOMI, mucous membranes and oropharynx mildly dry Neck--supple. No JVD. No bruits. Thyroid normal, trachea midline, no ad enopathy. Heart--normal S1 and S2. No murmurs, rubs or gallops. Lungs--clear bilaterally, no respiratory distress, no accessory muscle use. Abdomen--normal bowel sounds and soft. Mild epigastric and left sided abdominal pain Extremities--left hemiparesis Dermatologic--normal skin turgor, normal color, no abnormal lymph nodes, no rash. Neurologic--cranial nerves II through XII grossly intact. Rheumatologic--normal range of motion. Psychiatric--normal affect. Discharge Data Allergies Allergy/AdvReac Type Severity Reaction Status Date / Time aspirin Allergy Severe airway Verified 04/07/22 15:02 edema; hives Consultations 04/07/22 15:04 ED Decision to Admit Stat 04/07/22 15:48 Consult Neurology Routine Ordered Studies 04/07/22 11:29 CT abd pelvis IV con only Stat Hospital Course (1) Generalized weakness: -Admitted to the hospital on account of weakness and pain -The patient has experienced progress weakness in all extremities consistent with previous MS flares -No red flag symptoms such as loss of bowel or bladder function while awake, saddle anesthesia, vision changes or respiratory distress -Patient no longer able to transfer himself out of bed like at baseline -Neurology on consult -Completed Pulse Steroids, -Continue PT/OT -Patient feels much improved today D/C on Medrol dose jeyson (2) Hematuria: urinalysis showed 3+ RBC Due to kidney stone patient aware he has a stone, but its non obstructive and it does not bother him Outpatient follow up with urology (3) Hypophosphatemia: -Replaced (4) DVT (deep venous thrombosis): -Continue eliquis (5) Multiple sclerosis: -See generalized weakness Patient has now agreed to start the disease modifying medication To follow up with [facility] (6) Hypercalcemia: Resolved Plan d/c home, follow up with [facility] neurology Total Time Total Time Spent Total Time Spent (In Minutes): 35 Discharge Plan Discharge Items Patient Disposition: Home - Self-Care Reason For Visit: PALPITATIONS, LOW BACK PAIN Discharge Diagnosis: MS flare Activity: Resume your previous activity Non-emergency contact: Primary Care Provider and Neurologist Call non-emergency contact if: you have any medication questions Follow-up/Referrals: Louis Hale [Primary Care Provider] - 04/11/22 2:45 pm Diet: Regular Addtl Attending Provider Instructions: please make appointment to follow up with [facility] neurology Pending Studies at Discharge: No Stand-Alone Forms: My Busap, Smoking Cessation Medications and DC Order Prescriptions: New cholecalciferol (vitamin D3) 125 mcg (5,000 unit) Tablet 5,000 unit PO QAM 30 Days Qty: 30 0RF methylprednisolone [Medrol (Jeyson)] 4 mg tablets,dose pack 4 mg PO TID Qty: 21 0RF Continued tizanidine 2 mg tablet 2 mg PO DAILY PRN (Reason: muscle spasms) Eliquis 5 mg tablet 5 mg PO BID fluoxetine 20 mg capsule 20 mg PO DAILY cinacalcet 30 mg tablet 30 mg PO BID Discontinued cholecalciferol (vitamin D3) [Vitamin D3] 25 mcg (1,000 unit) Capsule 25 mcg PO DAILY Discharge Orders: Discharge Order (Routine); Ordered 04/10/22 Ordered By: Walter Pena Admission Data Admit Date/Time: 04/07/22 15:32 Attending Provider: Walter Pena Admit Provider: Filiberto Conn Primary Care Provider: Louis Hale Other Providers: Filiberto Conn ; Forrest Coley Other Interventions: Discharge Summary Assessment (RN) Last Done: 04/10/22 11:58 Coding Level of Care Code HOSP INP/OBS DISCH >30 MIN Diagnoses Generalized weakness R53.1 Hematuria R31.9 Hypophosphatemia E83.39 DVT (deep venous thrombosis) I82.502 Affected thrombotic vein of extremity: unspecified vein of extremity Chronicity: chronic DVT location: lower extremity Laterality: left Multiple sclerosis G35 Hypercalcemia E83.52 Time Spent (min) 35
== END 2022-04-10 14:10 | disposition home or self-care (01) | DRG 642 ==
LOC: ED 09:49 → SUATTDRO 15:32 → 2N 15:32

== ENCOUNTER 2022-05-01 13:25 | Inpatient (IN) ==
[2022-05-01 16:11] LABS: Basophils # (auto) 0.05 K/uL (0-0.2); Basophils % (auto) 0.5 %; Eosinophils # (auto) 0.04 K/uL (0-0.50); Eosinophils % (auto) 0.4 %; Hematocrit (blood only) 47.4 % (42.0-52.0); Hemoglobin 16.1 g/dl (14.0-18.0); Immature Granulocytes # (auto) 0.13 K/uL (0.01-0.20); Immature Granulocytes % (auto) 1.2 %; Lymphocytes # (auto) 1.07 K/uL (1.2-3.4); Lymphocytes % (auto) 10.2 %; Mean Corpuscular Hemoglobin 31.9 pg (25.0-34.0); Mean Corpuscular Volume 93.9 fL (80.0-100.0); Mean Platelet Volume 10.4 fL (9.4-12.4); Monocytes # (auto) 0.68 K/uL (0.11-0.59); Monocytes % (auto) 6.5 %; Neutrophils # (auto) 8.47 K/uL (1.40-6.50); Neutrophils % (auto) 81.2 %; Platelet Count 232 K/uL (130-400); RDW Standard Deviation 44.5 fL (36.4-46.3); Red Blood Count 5.05 M/uL (4.70-6.10); White Blood Count 10.44 K/ul (4.8-10.8)
[2022-05-01 16:38] LABS: Albumin Globulin Ratio 1.6 (0.9-2); Albumin Level 4.6 gm/dl (3.4-5.0); BUN Creatinine Ratio 14.8 (10-20); Bilirubin,Total 0.6 mg/dl (0.2-1.0); Calcium 11.6 mg/dl (8.5-10.1); Creatinine Clr Calc Pharmacy 97.3 ml/min; Est GFR (African American) 93.6 ml/min; Est GFR (Non-African American) 80.7 ml/min; Globulin 2.9 gm/dl (2.5-4.0); Potassium 4.4 mmol/L (3.5-5.1); Total Protein 7.5 gm/dl (6.0-8.3)
--- NOTE | 2022-05-01 16:41 | Emergency Department Note ---
History of Present Illness General Chief complaint: Weakness Stated complaint: unable to ambulate Time Seen by Provider: 05/01/22 16:20 Source: patient, RN notes reviewed and old records reviewed (I have reviewed the EMS notes from his transport) Mode of arrival: ambulatory Limitations: no limitations History of Present Illness Maximum Pain Intensity: 6 This patient is a 46-year-old male who comes in after feeling severely weak and having some bowel incontinence. He has MS and lives at home he has had multiple presentations for similar complaints in the past. He says he is typically is incontinent of stool at night but today on the toilet he became incontinent. He denies any injuries no fever no fall or trauma his bladder has been normal he feels diffusely weak in both the arms and legs. Left leg is normally very weak. Denies chest pain or shortness of breath no dysuria hematuria no headache neck pain or stiffness. No back pain. He says he had multiple MRIs in the past. He said this is his typical presentation the ER. In the past he has been resistant to placement but now he feels that he needs placement and cannot live at home like this. No sick contacts. Home Medications Medication Instructions Recorded Confirmed Type tizanidine 2 mg tablet 2 mg PO DAILY PRN muscle spasms 09/29/21 05/01/22 History apixaban 5 mg tablet (Eliquis) 5 mg PO BID 10/05/21 05/01/22 History cinacalcet 30 mg tablet 30 mg PO BID 04/07/22 05/01/22 History fluoxetine 20 mg capsule 20 mg PO DAILY 04/07/22 05/01/22 History cholecalciferol (vitamin D3) 125 5,000 unit PO QAM 30 days #30 tabs 04/10/22 05/01/22 Rx mcg (5,000 unit) tablet Allergies Allergy/AdvReac Type Severity Reaction Status Date / Time aspirin Allergy Severe airway Verified 05/01/22 19:29 edema; hives Past Med/Surg History Medical History Chronic pain syndrome Depression H/O poor personal hygiene Hypercalcemia Hyperparathyroidism Left leg pain Multiple sclerosis Multiple sclerosis exacerbation Obstructive uropathy 2/2 renal stone, caused RUBI, pt admitted for this and hypercalcemia 05/2018 Primary hyperparathyroidism Seizure disorder Many years ago may have had single episode, pt was never treated for this, no reoccurrence. Weakness Surgical History History of cystoscopy WITH STENT PLACEMENT 06/14/18 [facility] Family History Father Stroke Thyroid disorder Other Hypertension Kidney stones Social History Smoking Status: Never smoker Tobacco Type: Smokeless Tobacco (Dip or Chew) Cigarettes Per Day: 0; Second Hand Exposure: Yes; Hx Alcohol Use: Yes Alcohol type: beer Hx Substance Use: Yes Last Used Substance: Days (ago) Preferred Language: Belarusian Communication Ability: Effective Comic Book Writer Required: No Beliefs That Will Affect Care: None marital status: Current Living Situation: Parent Current Living Situation Comment: Patient states he must do all of his own self care current occupational status: disabled How many Children do You have: 2 Feels Safe at Home: Yes Assistive Devices: Hospital Bed and Wheelchair Review of Systems A total of 10 systems reviewed and were otherwise negative Physical Exam Vital Signs Vital Signs - 24 hr 05/01/22 14:03 05/01/22 16:59 05/01/22 17:00 Temperature 36.3 C L Temperature Source Temporal Artery Scan Pulse Rate 79 88 Pulse Rate [Apical] 82 Pulse Rhythm Regular Pulse Rhythm [Apical] Pulse Strength Normal Pulse Strength [Apical] Respiratory Rate 18 18 Respiratory Effort / Characteristics Non-Labored Spontaneous Non-Labored Spontaneous Respiratory Depth Normal Normal Respiratory Pattern Regular Blood Pressure 125/86 Blood Pressure [Right Arm] 146/84 H Blood Pressure Mean 99 Blood Pressure Mean [Right Arm] 104 Blood Pressure Position Sitting Blood Pressure Position [Right Arm] Lying Pulse Oximetry 99 98 Oxygen Delivery Method Room Air Room Air Sepsis Recent Fever Within 48 Hours No Sepsis New/Unexplained Change in Mental Status No Sepsis Action Taken by Nursing No Action Required 05/01/22 18:00 05/01/22 19:54 Temperature Temperature Source Pulse Rate Pulse Rate [Apical] 81 77 Pulse Rhythm Pulse Rhythm [Apical] Regular Pulse Strength Pulse Strength [Apical] Normal Respiratory Rate 18 18 Respiratory Effort / Characteristics Non-Labored Spontaneous Non-Labored Respiratory Depth Normal Normal Respiratory Pattern Regular Blood Pressure Blood Pressure [Right Arm] 140/87 108/60 Blood Pressure Mean Blood Pressure Mean [Right Arm] 104 76 Blood Pressure Position Blood Pressure Position [Right Arm] Pulse Oximetry 99 97 Oxygen Delivery Method Room Air Sepsis Recent Fever Within 48 Hours Sepsis New/Unexplained Change in Mental Status Sepsis Action Taken by Nursing General: Well developed well nourished middle-age male who appears in no acute distress, breathing comfortably on room air. Normal speech HEENT: Normal cephalic atraumatic. Pupils are equal round and reactive to light. Extraocular movements are intact. Oropharynx is pink with moist mucous membranes. No swelling of the mouth lips or tongue. Neck: Supple with a midline trachea. No meningeal signs or stiffness, no JVD or bruits. No Stridor. Chest: Clear to auscultation bilaterally. No wheezes or rhonchi. No increased work of breathing. Heart: Regular rate and rhythm without murmurs or gallops. Abdomen: Soft nontender, nondistended without rebound guarding or rigidity. Extremities: No cyanosis clubbing or edema. No calf tenderness or assymetry Spine/Back. Non tender to palpation. No CVA tenderness Skin: Good turgor without rashes. Neurologic exam: Cranial nerves two through 12 are intact. He is mildly weak in her arm arms bilaterally. He has significant weakness in the left leg and moderate recruitment weakness in the right leg. He says this is baseline. Course Administered Medications Acetaminophen (Acetaminophen 500 Mg Tab) 1,000 mg PO Q8H PRN PRN Reason: pain/fever Stop: 05/31/22 22:14 Last Admin: 05/01/22 23:08 Dose: 1,000 mg Documented By: DARLIN Apixaban (Apixaban 5 Mg Tablet) 5 mg PO BID [facility] Stop: 05/31/22 22:14 Last Admin: 05/01/22 23:08 Dose: 5 mg Documented By: DARLIN Cinacalcet (Cinacalcet Hcl 30 Mg Tab) 30 mg PO BID [facility] Stop: 05/31/22 22:14 Last Admin: 05/01/22 23:08 Dose: 30 mg Documented By: DARLIN Sodium Chloride (Nss 1000ml) 500 mls @ 80 mls/hr IV .[id number] [facility] Stop: 05/02/22 04:44 Last Admin: 05/01/22 23:08 Dose: 80 mls/hr Documented By: DARLIN Medical Decision Making Differential Diagnosis MS, exacerbation, electrolyte or metabolic abnormality, UTI, infection, intracranial process, neurologic process, spinal process, COVID Medical Records Attestation: I reviewed the patient's medical records. Home Medications Current Medication List: was personally reviewed by me Laboratory Data Attestation: I reviewed the patient's lab results. 05/01/22 15:14 05/01/22 15:14 Lab Results 05/01/22 05/01/22 05/01/22 Range/Units 15:13 15:14 15:14 WBC 10.44 (4.8-10.8) K/ul RBC 5.05 (4.70-6.10) M/uL Hgb 16.1 (14.0-18.0) g/dl Hct 47.4 (42.0-52.0) % MCV 93.9 (80.0-100.0) fL MCH 31.9 (25.0-34.0) pg MCHC 34.0 (32.0-36.0) g/dL RDW Std Deviation 44.5 (36.4-46.3) fL RDW Coeff of Bret 13.0 (11.5-14.5) % Plt Count 232 (130-400) K/uL MPV 10.4 (9.4-12.4) fL Immature Gran % (Auto) 1.2 % Neut % (Auto) 81.2 % Lymph % (Auto) 10.2 % Terrell % (Auto) 6.5 % Eos % (Auto) 0.4 % Baso % (Auto) 0.5 % Neut # (Auto) 8.47 H (1.40-6.50) K/uL Lymph # (Auto) 1.07 L (1.2-3.4) K/uL Terrell # (Auto) 0.68 H (0.11-0.59) K/uL Eos # (Auto) 0.04 (0-0.50) K/uL Baso # (Auto) 0.05 (0-0.2) K/uL Immature Gran # (Auto) 0.13 (0.01-0.20) K/uL Sodium 141 (136-145) mmol/L Potassium 4.4 (3.5-5.1) mmol/L Chloride 110 H (98-107) mmol/L Carbon Dioxide 25 (21-32) mmol/L Anion Gap 6 (3-11) BUN 16 (6-23) mg/dl Creatinine 1.08 (0.6-1.4) mg/dl Est Cr Clr Drug Dosing 97.3 ml/min Est GFR ( Amer) 93.6 ml/min Est GFR (Non-Af Amer) 80.7 ml/min BUN/Creatinine Ratio 14.8 (10-20) Glucose 104 H (70-99(Fasting)) mg/dl Calcium 11.6 H (8.5-10.1) mg/dl Magnesium 2.1 (1.7-2.4) mg/dl Total Bilirubin 0.6 (0.2-1.0) mg/dl AST 14 (13-39) U/L ALT 19 (7-52) U/L Alkaline Phosphatase 61 (34-104) U/L Troponin I High Sens 2.5 (0-20) pg/ml Total Protein 7.5 (6.0-8.3) gm/dl Albumin 4.6 (3.4-5.0) gm/dl Globulin 2.9 (2.5-4.0) gm/dl Albumin/Globulin Ratio 1.6 (0.9-2) Urine Color Urine Appearance (Clear) Urine pH (4.5-7.5) Ur Specific Julian (1.000-1.030) Urine Protein (Negative) Urine Glucose (UA) (Negative) Urine Ketones (Negative) Urine Blood (Negative) Urine Nitrite (Negative) Urine Bilirubin (Negative) Urine Urobilinogen (Negative) Ur Leukocyte Esterase (Negative) Urine WBC (Auto) (0-5) /hpf Urine RBC (Auto) (0-4) /hpf U Hyaline Cast (Auto) (0-5) /lpf U Epithel Cells (Auto) (0-5) /lpf Urine Bacteria (Auto) (Negative) SARS-CoV-2, RNA, NAAT NEGATIVE (NEGATIVE) 05/01/22 Range/Units 17:03 WBC (4.8-10.8) K/ul RBC (4.70-6.10) M/uL Hgb (14.0-18.0) g/dl Hct (42.0-52.0) % MCV (80.0-100.0) fL MCH (25.0-34.0) pg MCHC (32.0-36.0) g/dL RDW Std Deviation (36.4-46.3) fL RDW Coeff of Bret (11.5-14.5) % Plt Count (130-400) K/uL MPV (9.4-12.4) fL Immature Gran % (Auto) % Neut % (Auto) % Lymph % (Auto) % Terrell % (Auto) % Eos % (Auto) % Baso % (Auto) % Neut # (Auto) (1.40-6.50) K/uL Lymph # (Auto) (1.2-3.4) K/uL Terrell # (Auto) (0.11-0.59) K/uL Eos # (Auto) (0-0.50) K/uL Baso # (Auto) (0-0.2) K/uL Immature Gran # (Auto) (0.01-0.20) K/uL Sodium (136-145) mmol/L Potassium (3.5-5.1) mmol/L Chloride (98-107) mmol/L Carbon Dioxide (21-32) mmol/L Anion Gap (3-11) BUN (6-23) mg/dl Creatinine (0.6-1.4) mg/dl Est Cr Clr Drug Dosing ml/min Est GFR ( Amer) ml/min Est GFR (Non-Af Amer) ml/min BUN/Creatinine Ratio (10-20) Glucose (70-99(Fasting)) mg/dl Calcium (8.5-10.1) mg/dl Magnesium (1.7-2.4) mg/dl Total Bilirubin (0.2-1.0) mg/dl AST (13-39) U/L ALT (7-52) U/L Alkaline Phosphatase (34-104) U/L Troponin I High Sens (0-20) pg/ml Total Protein (6.0-8.3) gm/dl Albumin (3.4-5.0) gm/dl Globulin (2.5-4.0) gm/dl Albumin/Globulin Ratio (0.9-2) Urine Color [place] Urine Appearance Clear (Clear) Urine pH 6.0 (4.5-7.5) Ur Specific Julian 1.011 (1.000-1.030) Urine Protein 1+ H (Negative) Urine Glucose (UA) Negative (Negative) Urine Ketones Trace H (Negative) Urine Blood 3+ H (Negative) Urine Nitrite Negative (Negative) Urine Bilirubin Negative (Negative) Urine Urobilinogen Negative (Negative) Ur Leukocyte Esterase Trace H (Negative) Urine WBC (Auto) 5-10 H (0-5) /hpf Urine RBC (Auto) >30 H (0-4) /hpf U Hyaline Cast (Auto) 1-5 (0-5) /lpf U Epithel Cells (Auto) 10-20 H (0-5) /lpf Urine Bacteria (Auto) Negative (Negative) SARS-CoV-2, RNA, NAAT (NEGATIVE) Imaging Data Attestation: I personally reviewed and interpreted this imaging study as follows: My Impression: Chest x-rayno acute infiltrate, failure, pneumothorax Head CTI do not appreciate any mass effect or hemorrhage Radiologist's Impression: Chest X-Ray 05/01/22 16:36 XR chest 1V portable CLINICAL HISTORY: weakness TECHNIQUE: Single frontal radiograph of the chest was obtained. Comparison: Comparison is made to chest radiograph 05/19/2021 FINDINGS: No lines and tubes are seen. The cardiomediastinal silhouette is normal. The lungs are clear. No evidence of pleural effusion or pneumothorax. IMPRESSION: No acute chest disease. ACT 112: Negative or not required by law. Electronically signed by: Benigno Munroe M.D. 05/01/2022 5:[address] 05/01/22 16:36 CT head/brain wo con CLINICAL HISTORY: weakness Technique: Contiguous axial CT images of the head were acquired from the base of the skull to the vertex without intravenous contrast administration. Images were viewed in brain, subdural and bone windows. Automated dose lowering techniques and/or adjustment according to patient size were utilized for this exam. Comparison: Comparison is made to CT head 06/13/2017 Findings: Areas of decreased attenuation are present in the periventricular and subcortical white matter bilaterally consistent with small vessel ischemic disease. Generalized cerebral atrophy with commensurate enlargement of the ventricles, sulci, and cisterns is also present. There is no acute intracranial hemorrhage or evidence of acute territorial infarction. No shift of the midline structures, mass effect, or extra-axial abnormalities are shown. Atherosclerotic calcifications are present in the intracranial segments of the internal carotid arteries. Imaged portions of the paranasal sinuses and mastoid air cells are clear. The orbits appear normal. There are no acute fractures of the calvaria or scalp swelling. Impression: No acute intracranial hemorrhage, no evidence of acute territorial infarction or other acute intracranial disease process. ACT 112: Negative or not required by law. Electronically signed by: Benigno Munroe M.D. 05/01/2022 6:00 PM ECG Data Attestation: I personally reviewed and interpreted this ECG as follows: Indication: + weakness Rate (beats per minute): 77 Rhythm: + normal sinus ECG Intervals/blocks: + Normal QRS, + Normal QT and + Normal NE ECG Billings: + Normal ECG ST segments: + Normal ST segments ECG Findings: no PACs or no PVCs Comparison ECG Date: from (04/07/22) Change: no significant change MDM Narrative This patient comes in as described above. He was placed on a personnel monitor in room C4. IV access was established, blood work obtained. he had a weakness type work-up. Looking back through his chart and talking with the patient sounds like this has been an ongoing issue. There is nothing particularly different today than previous presentations he tells me but except for the fact that he feels he cannot care for himself at home anymore. On my exam, he is weak in the legs but says that is unchanged. IV access will established and blood work was obtained. I also order EKG, COVID testing , chest x-ray ,urinalysis and head CT. COVID testing was negative. He has no fever or white count to suggest infection. No significant anemia. No significant electrolyte or metabolic abnormalities. Chest x-ray was unremarkable shows no congestive heart failure, pneumonia, pneumothorax. Head CT was unremarkable. The patient is remained stable he has ongoing weakness and does not feel he can take care of himself at home take care of himself at home and feels that he needs to be placed. I have consulted the medical team and talk to Dr. Reynaga and his resident about this patient and he will be admitted/observed for further treatment and evaluation and placement Continuous cardiac monitoring: An order was placed in EMR for continuous personnel monitor. Upon my interpretation the patient was noted to be in normal sinus with a rate of 80 Impression & Plan Weakness, Multiple sclerosis, Unable to care for self, Lab test negative for COVID-19 virus, Current use of long term care phlebotomist anticoagulation Discharge Plan Visit Data Chief Complaint: Weakness Stated Complaint: unable to ambulate ED Provider: Fabrice Wilcox Discharge Problem: Weakness, Multiple sclerosis, Unable to care for self, Lab test negative for COVID-19 virus, Current use of alf anticoagulation Patient Disposition: Admitted As Inpatient Discharge Instructions Interventions: ED Discharge Assessment Last Done: 05/01/22 21:38
[2022-05-01 17:14] LABS: Magnesium 2.1 mg/dl (1.7-2.4)
[2022-05-01 17:26] LABS: Troponin I High Sensitivity 2.5 pg/ml (0-20)
--- NOTE | 2022-05-01 17:35 | XRay Report ---
XR chest 1V portable CLINICAL HISTORY: weakness TECHNIQUE: Single frontal radiograph of the chest was obtained. Comparison: Comparison is made to chest radiograph 05/19/2021 FINDINGS: No lines and tubes are seen. The cardiomediastinal silhouette is normal. The lungs are clear. No evid ence of pleural effusion or pneumothorax. IMPRESSION: No acute chest disease. ACT 112: Negative or not required by law. Electronically signed by: Benigno Munroe M.D. 05/01/2022 5:33 PM
[2022-05-01 17:38] LABS: Appearance Urine Clear (Clear); Bacteria Urine Automated Negative (Negative); Bilirubin Urine Negative (Negative); Blood Urine 3+ (Negative); Color Urine Orange; Glucose Urine UA Negative (Negative); Ketones Urine Trace (Negative); Leukocyte Esterase Urine Trace (Negative); Nitrite Urine Negative (Negative); Protein Urine 1+ (Negative); RBC Urine Automated >30 /hpf (0-4); Specific Gravity Urine 1.011 (1.000-1.030); Urobilinogen Urine Negative (Negative)
--- NOTE | 2022-05-01 18:01 | CT Scan Report ---
CT head/brain wo con CLINICAL HISTORY: weakness Technique: Contiguous axial CT images of the head were acquired from the base of the skull to the hardeep major without intravenous contrast administration. Images were viewed in brain, subdural and [facility]. Automated dose lowering techniques and/or adjustment according to patient size were utilized for this exam. Comparison: Comparison is made to CT head 06/13/2017 Findings: Areas of decreased attenuation are present in the periventricular and subcortical white matter bilate rally consistent with small vessel ischemic disease. Generalized cerebral atrophy with commensurate e nlargement of the ventricles, sulci, and cisterns is also present. There is no acute intracranial hem orrhage or evidence of acute territorial infarction. No shift of the midline structures, mass effect, or extra-axial abnormalities are shown. Atherosclerotic calcifications are present in the intracran ial segments of the internal carotid arteries. Imaged portions of the paranasal sinuses and mastoid air cells are clear. The orbits appear normal. There are no acute fractures of the calvaria or scalp swelling. Impression: No acute intracranial hemorrhage, no evidence of acute territorial infarction or other acute intracra nial disease process. ACT 112: Negative or not required by law. Electronically signed by: Benigno Munroe M.D. 05/01/2022 6:00 PM
--- NOTE | 2022-05-01 19:47 | History & Physical Report ---
Date of Service May 01, 2022 Assessment & Plan (1) Weakness: Plan: -Significant inability to care for self secondary to physical limitations from multiple sclerosis -I do not believe pt can adequately care for himself at home safely at this time and recommend placement -PT/OT evaluations requested, case management to facilitate placement search (2) Multiple sclerosis: Plan: -Chronic, w/ LLE weakness since 2009, wheelchair bound -Follows with [facility] neurology -Last MRI in 09/2021 unchanged from previous -I do not suspect an acute flare at this time, will hold off on repeat MRI, steroid treatment and neurology consult (3) Stool incontinence: Plan: -Likely secondary to neurologic dysfunction from multiple sclerosis, lower suspicion for infectious cause -Chronic issue over past few months -Deferring stool testing at this time (4) Primary hyperparathyroidism: Plan: -Chronic. PTH 184.7 in 04/2021, persistent elevation since 2017 -Calcium 11.6 on admission, administered 500cc NSS mIVF -Continue home cinacalcet, vitamin D supplementation -EKG on admission normal -Trend BMP, phosphorus. Repeat Vit D level ordered for AM (5) Chronic deep vein thrombosis (DVT) of distal vein of left lower extremity: Plan: Continue home Eliquis. Plan Diet: regular DVT prophylaxis: Eliquis code: full dispo: medical/surgical Admission and Anticipated Discharge Date Admission Date: October 06, 2021 History of Present Illness Chief Complaint: Inability to care for self Primary Care Provider: Louis Hale 45 year old male w/ multiple sclerosis, primary hyperparathyroidism, chronic DVT, stool incontinence presenting with weakness. Pt came to ED today due to progressive weakness and bowel incontinence. Pt lives at home with father as his main caregiver and uncle as well over last few months. He has been admitted multiple times for weakness typically due to MS flares. Pt states he has been incontinent of stool at night over past few months but it occurred during the daytime today. He denies any particular symptoms/complaints aside from generalized weakness per his baseline. He is frustrated because his father and uncle are working very hard to care for him and he "does not want to do that to them anymore". Pt has been resistant to placement in the past but feels he is no longer able to care for himself at home. He reports feeling like a burden to his family. Pt is interested in placement at this time. He denies feeling similar to his condition during previous MS flares and generally denies any acute issues at present. Pt arrived to ER hemodynamically stable. Labwork largely unremarkable, Ca 11.6. Head CT, CXR normal. EKG normal. Pt given Tylenol for headache in ER. Allergies Allergy/AdvReac Type Severity Reaction Status Date / Time aspirin Allergy Severe airway Verified 05/01/22 19:29 edema; hives Home Medications Medication Instructions Recorded Confirmed Type tizanidine 2 mg tablet 2 mg PO DAILY PRN muscle spasms 09/29/21 05/01/22 History apixaban 5 mg tablet (Eliquis) 5 mg PO BID 10/05/21 05/01/22 History cinacalcet 30 mg tablet 30 mg PO BID 04/07/22 05/01/22 History fluoxetine 20 mg capsule 20 mg PO DAILY 04/07/22 05/01/22 History cholecalciferol (vitamin D3) 125 5,000 unit PO QAM 30 days #30 tabs 04/10/22 05/01/22 Rx mcg (5,000 unit) tablet Past Med/Surg History Medical History Chronic pain syndrome Depression H/O poor personal hygiene Hypercalcemia Hyperparathyroidism Left leg pain Multiple sclerosis Multiple sclerosis exacerbation Obstructive uropathy 2/2 renal stone, caused RUBI, pt admitted for this and hypercalcemia 05/2018 Primary hyperparathyroidism Seizure disorder Many years ago may have had single episode, pt was never treated for this, no reoccurrence. Weakness Surgical History History of cystoscopy WITH STENT PLACEMENT 06/14/18 [facility] Family History Father Stroke Thyroid disorder Other Hypertension Kidney stones Social History Smoking Status: Never smoker Tobacco Type: Smokeless Tobacco (Dip or Chew) Cigarettes Per Day: 0; Second Hand Exposure: Yes; Hx Alcohol Use: Yes Alcohol type: beer Hx Substance Use: Yes Last Used Substance: Days (ago) Preferred Language: Tristanian Communication Ability: Effective Branch Officer Required: No Beliefs That Will Affect Care: None marital status: Current Living Situation: Parent Current Living Situation Comment: Patient states he must do all of his own self care current occupational status: disabled How many Children do You have: 2 Feels Safe at Home: Yes Assistive Devices: Hospital Bed and Wheelchair Review of Systems Review of Systems: Per HPI Physical Exam Physical Exam: Constitutional: well-appearing, no acute distress, laying in bed HEENT: NCAT, PERRLA, EOMI, no conjunctival injection, moist mucous membranes CV: regular rate and rhythm, normal S1 and S2, no murmur appreciated, extremities well-perfused, no LE edema Resp: CTAB, no wheezes/rales/rhonchi appreciated, no increased work of breathing GI: soft, nondistended, nontender, normal bowel sounds Skin: warm, dry, no rash appreciated Neuro: grossly alert and oriented, RUE and RLE strength 5/5, LUE strength 3/5, LLE strength 3/5, reduced sensation on L > R UE and LE, no additional focal motor or sensory deficits appreciated Results & Data Results & Data ([facility]) Vital Signs (Past 12 Hours) Vital Signs Temp Pulse Pulse Resp BP BP Pulse Ox 05/01/22 18:00 81 18 140/87 99 05/01/22 17:00 88 05/01/22 16:59 82 18 146/84 H 98 05/01/22 14:03 36.3 C L 79 18 125/86 99 O2 Del Method 05/01/22 18:00 Room Air 05/01/22 17:00 05/01/22 16:59 Room Air 05/01/22 14:03 Room Air Resident Activity Tracking Resident Involvement: Resident Care Provided Care Provided: Adult Hospital Medicine
[2022-05-01] MEDS ORDERED: tiZANidine HCL 4 MG TABLET PO PRN (22:15)
[2022-05-01] MEDS ORDERED: ONDANSETRON INJ 2 MG/ML 2 ML VIAL IV PRN (22:15)
[2022-05-01] MEDS ORDERED: SODIUM CHLORIDE 0.9% 1000ML 500 ML IV SCH (22:30)
[2022-05-01] MEDS: CINACALCET HCL 30 MG TAB PO SCH (23:08)
[2022-05-01] MEDS: APIXABAN 5 MG TABLET PO SCH (23:08)
[2022-05-01] MEDS: ACETAMINOPHEN 500 MG TAB PO PRN (23:08)
[2022-05-02 07:10] LABS: Hematocrit (blood only) 38.8 % (42.0-52.0); Hemoglobin 13.1 g/dl (14.0-18.0); Mean Corpuscular Hgb Conc 33.8 g/dL (32.0-36.0); Mean Corpuscular Volume 94.9 fL (80.0-100.0); Mean Platelet Volume 10.4 fL (9.4-12.4); Platelet Count 202 K/uL (130-400); RDW Coefficient of Variation 12.9 % (11.5-14.5); RDW Standard Deviation 44.9 fL (36.4-46.3); Red Blood Count 4.09 M/uL (4.70-6.10); White Blood Count 7.73 K/ul (4.8-10.8)
--- NOTE | 2022-05-02 07:39 | Hospitalist Progress Note ---
Date of Service May 02, 2022 Assessment & Plan (1) Weakness: Plan: 45 year old male w/ multiple sclerosis, primary hyperparathyroidism, chronic DVT, stool incontinence presenting with progressive weakness. -Hx of multiple admission for similar. -Significant inability to care for self secondary to physical limitations from multiple sclerosis -PT/OT evals recommend SNF (2) Multiple sclerosis: Plan: -Chronic, w/ LLE weakness since 2009, wheelchair bound -Followed with [facility] neurology, but has not recently seen. Per special needs caregiver, no show in 01/2022, last seen 2018. Patient had inpatient [facility] neuro consult early Apr 2021; plan at that time was outpatient f/u to discuss Ocrevus. -Last MRI in 09/2021 unchanged from previous -Lower suspicion for emergent pathology such as cauda equina at this time. will hold off on repeat MRI or steroid treatment -Will discuss w/ special needs caregiver for assistance in helping patient arrange f/u w/ neuro (3) Stool incontinence: Plan: -Likely secondary to neurologic dysfunction from multiple sclerosis, chronic (4) CKD (chronic kidney disease): Plan: Stage 2. Cr 1.21 near baseline of 1.1s. Follow BMP. (5) Primary hyperparathyroidism: Plan: -Chronic. PTH 184.7 in 04/2021, persistent elevation since 2018 -Calcium 11.6 on admission, administered 500cc NSS mIVF -Continue home cinacalcet, vitamin D supplementation (6) Chronic deep vein thrombosis (DVT) of distal vein of left lower extremity: Plan: -Continue home Eliquis. Plan Diet: regular anticoag: Eliquis code: full dispo: med surg Admission and Anticipated Discharge Date Admission Date: May 01, 2022 Supervising Physician Co-Signing Physician Notes I personally examined the patient and verified all toribio points of history and exam, discussed case, and agree with decision making with Dr John No acute complaints. Vitals noted, in general he is awake and alert pleasant no distress. HEENT normocephalic atraumatic mucous membranes moist. Breathing unlabored no accessory muscle use good effort. Skin shows no rashes no pallor or icterus. MSwork on placement for ongoing care for now. Notes that it has been several difficulties with outpatient neurology follow-up but [facility] with [facility]. Otherwise as above. Subjective Ongoing LLE weakness, worsening. He states his LLE is the chronically weak one secondary to his multiple sclerosis. No infectious symptoms. No falls. States has upcoming appointment w/ [facility] neuro to get back on biologic. Has been off for 2 years. Later, patient states that his insurance actually does not cover [facility] and he is looking for a new neuro provider. He states he is trying to get into [facility], but would not be opposed to establishing / [facility] neuro as he is interesting in getting back on Ocrevus. Review of Systems Review of Systems: All systems reviewed & are unremarkable except as noted in HPI & below Physical Exam Physical Exam: General: Grossly A&O. NAD. Cooperative. HEENT: Atraumatic, normocephalic. Pulm: CTAB. -wheezes, -rales, -rhonchi. No respiratory distress. Cardiac: RRR, -mrg. Abdominal: Nontender, nondistended, soft. Neuro: Bilateral lower extremities w/ intact sensation to light touch. Results & Data Results & Data ([facility]) Vital Signs (Past 12 Hours) Vital Signs Temp Pulse Pulse Pulse Resp BP BP 05/02/22 07:18 36.7 C 73 16 111/71 05/01/22 21:55 05/01/22 21:55 05/01/22 21:55 36.7 C 71 16 130/80 05/01/22 21:38 73 16 122/73 05/01/22 21:00 73 18 115/71 05/01/22 20:58 77 05/01/22 19:54 77 18 108/60 Pulse Ox O2 Del Method 05/02/22 07:18 99 Room Air 05/01/22 21:55 Room Air 05/01/22 21:55 Room Air 05/01/22 21:55 97 Room Air 05/01/22 21:38 97 Room Air 05/01/22 21:00 96 Room Air 05/01/22 20:58 05/01/22 19:54 97 Resident Activity Tracking Resident Involvement: Resident Care Provided Care Provided: Adult Hospital Medicine
[2022-05-02 07:52] LABS: Albumin Globulin Ratio 1.6 (0.9-2); Albumin Level 3.6 gm/dl (3.4-5.0); Bilirubin,Total 0.5 mg/dl (0.2-1.0); Creatinine Clr Calc Pharmacy 86.8 ml/min; Est GFR (African American) 81.6 ml/min; Est GFR (Non-African American) 70.4 ml/min; Globulin 2.3 gm/dl (2.5-4.0); Phosphorus 2.8 mg/dl (2.5-4.9); Potassium 3.7 mmol/L (3.5-5.1); Total Protein 5.9 gm/dl (6.0-8.3)
[2022-05-02 08:15] LABS: Basophils # (auto) 0.06 K/uL (0-0.2); Basophils % (auto) 0.8 %; Eosinophils # (auto) 0.12 K/uL (0-0.50); Eosinophils % (auto) 1.6 %; Immature Granulocytes % (auto) 1.3 %; Lymphocytes % (auto) 24.2 %; Monocytes # (auto) 0.89 K/uL (0.11-0.59); Monocytes % (auto) 11.9 %; Neutrophils # (auto) 4.48 K/uL (1.40-6.50); Neutrophils % (auto) 60.2 %
[2022-05-02] MEDS: CINACALCET HCL 30 MG TAB PO SCH ×2 (08:24→20:34)
[2022-05-02] MEDS: APIXABAN 5 MG TABLET PO SCH ×2 (08:24→20:34)
[2022-05-02] MEDS: FLUoxetine HCL 20 MG CAP PO SCH (08:24)
[2022-05-02] MEDS: CHOLECALCIFEROL 5,000 UNITS 125 MCG TAB PO SCH (08:24)
[2022-05-02] MEDS: ACETAMINOPHEN 500 MG TAB PO PRN (10:11)
--- NOTE | 2022-05-02 11:32 | Electrocardiogram Report ---
Test Reason : Blood Pressure : / mmHG Vent. Rate : 077 BPM Atrial Rate : 077 BPM P-R Int : 160 ms QRS Dur : 088 ms QT Int : 364 ms P-R-T Axes : 053 006 042 degrees QTc Int : 411 ms Normal sinus rhythm Cannot rule out Inferior infarct (cited on or before 01-MAY-2022) Abnormal ECG When compared with ECG of 07-APR-2022 10:05, No significant change was found Confirmed by Pola Flynn ([id number]) on 05/02/2022 11:32:01 AM Referred By: REFERRED SELF Confirmed By:Pola Flynn
--- NOTE | 2022-05-02 19:58 | Billing Data ---
Date of Service May 02, 2022 Attending addendum: I have physically seen this patient, have supervised the medical residents activities, and agree with the H&P unless as otherwise noted. Assessment and Plan: Generalized weakness- Patient having difficulty with ADLs at home He does not look to be able to take care of himself properly at home, and he seems to have reached a conclusion as well. Consult PT/OT Consult case management for consideration for placement Multiple sclerosis- Wheelchair-bound Following with [facility] neurology Does not have an acute flare Would not benefit from IV steroids Chronic stool incontinence- Likely secondary to multiple sclerosis Primary hyperparathyroidism- Calcium 11.6 on admission Continue Cinacalcet Giving 500 cc normal saline bolus Recheck laboratories in a.m. If calcium still elevated, consider pamidronate and then longer-term adjustment of treatment Chronic DVT left lower extremity- Continue Eliquis Remaining orders and notations as noted Coding Level of Care Code 98165 INT INP/OBS CARE 3/75MIN
--- NOTE | 2022-05-02 20:08 | Billing Data ---
Date of Service May 02, 2022 Coding Level of Care Code 04166 SUB INP/OBS CARE
[2022-05-03 06:57] LABS: Hematocrit (blood only) 39.2 % (42.0-52.0); Hemoglobin 13.3 g/dl (14.0-18.0); Mean Corpuscular Hemoglobin 31.5 pg (25.0-34.0); Mean Corpuscular Hgb Conc 33.9 g/dL (32.0-36.0); Mean Corpuscular Volume 92.9 fL (80.0-100.0); Mean Platelet Volume 10.3 fL (9.4-12.4); Platelet Count 212 K/uL (130-400); RDW Coefficient of Variation 12.8 % (11.5-14.5); Red Blood Count 4.22 M/uL (4.70-6.10); White Blood Count 8.03 K/ul (4.8-10.8)
[2022-05-03] MEDS: FLUoxetine HCL 20 MG CAP PO SCH (08:01)
[2022-05-03] MEDS: APIXABAN 5 MG TABLET PO SCH ×2 (08:01→20:42)
[2022-05-03] MEDS: CINACALCET HCL 30 MG TAB PO SCH ×2 (08:01→20:42)
[2022-05-03] MEDS: CHOLECALCIFEROL 5,000 UNITS 125 MCG TAB PO SCH (08:01)
[2022-05-03 08:24] LABS: Calcium 9.5 mg/dl (8.5-10.1); Magnesium 1.9 mg/dl (1.7-2.4); Potassium 3.8 mmol/L (3.5-5.1)
[2022-05-03 08:30] LABS: BUN Creatinine Ratio 10.4 (10-20); Creatinine Clr Calc Pharmacy 78.4 ml/min; Est GFR (African American) 72.1 ml/min; Est GFR (Non-African American) 62.2 ml/min
[2022-05-03] MEDS ORDERED: POTASSIUM CHLORIDE CRTAB 20 MEQ TABCR PO STA (08:43)
--- NOTE | 2022-05-03 08:45 | Hospitalist Progress Note ---
Date of Service May 03, 2022 Assessment & Plan (1) Weakness: Plan: 45 year old male w/ multiple sclerosis, primary hyperparathyroidism, chronic DVT, stool incontinence presenting with progressive weakness. -Hx of multiple admission for similar. -Significant inability to care for self secondary to physical limitations from multiple sclerosis -PT/OT evals recommend SNF (2) Multiple sclerosis: Plan: -Chronic, w/ LLE weakness since 2009, wheelchair bound -Followed with [facility] neurology, but has not recently seen. Per child care sitter, no show in 01/2022, last seen 2018. Patient had inpatient [facility] neuro consult early Apr 2021; plan at that time was outpatient f/u to discuss Ocrevus. -Last MRI in 09/2021 unchanged from previous -Lower suspicion for emergent pathology such as cauda equina at this time. will hold off on repeat MRI or steroid treatment -Will discuss w/ child care sitter for assistance in helping patient arrange f/u w/ neuro (3) Stool incontinence: Plan: -Likely secondary to neurologic dysfunction from multiple sclerosis, chronic (4) CKD (chronic kidney disease): Plan: Stage 2. Cr baseline of 1.1s. slight uptrending to 1.34. Gentle IV fluids. Follow BMP. (5) Primary hyperparathyroidism: Plan: -Chronic. PTH 184.7 in 04/2021, persistent elevation since 2018 -Continue home cinacalcet, vitamin D supplementation (6) Chronic deep vein thrombosis (DVT) of distal vein of left lower extremity: Plan: -Continue home Eliquis. Plan Diet: regular. NSS 80/hr. anticoag: Eliquis code: full dispo: med surg Admission and Anticipated Discharge Date Admission Date: May 01, 2022 Supervising Physician Co-Signing Physician Notes I personally examined the patient and verified all toribio points of history and exam, discussed case, and agree with decision making with Dr John No acute complaints. no needs. Vitals noted, in general he is awake and alert pleasant no distress. HEENT normocephalic atraumatic mucous membranes moist. Breathing unlabored no accessory muscle use good effort. Skin shows no rashes no pallor or icterus. MSwork on placement for ongoing care for now. continue current medical care. Notes that it has been several difficulties with outpatient neurology follow-up but he would really like to do [facility] navigator to help with this. Otherwise as above. Subjective Patient states he is doing well, no new complaints. Review of Systems Review of Systems: All systems reviewed & are unremarkable except as noted in HPI & below Physical Exam Physical Exam: General: Grossly A&Ox3. NAD. Cooperative. HEENT: Atraumatic, normocephalic. Pulm: CTAB. -wheezes, -rales, -rhonchi. No respiratory distress. Cardiac: RRR, -mrg. Abdominal: Nontender, nondistended, soft. Neuro: Bilateral lower extremities w/ intact sensation to light touch. L lower extremity 1/5 strength, at baseline. Results & Data Results & Data ([facility]) Vital Signs (Past 12 Hours) Vital Signs Temp Pulse Resp BP Pulse Ox O2 Del Method 05/03/22 07:18 36.4 C L 66 16 131/85 95 Room Air 05/02/22 22:15 36.8 C 62 18 124/76 96 Room Air Resident Activity Tracking Resident Involvement: Resident Care Provided Care Provided: Adult Hospital Medicine
[2022-05-03] MEDS: ACETAMINOPHEN 500 MG TAB PO PRN ×2 (14:00→22:30)
[2022-05-03] MEDS: SODIUM CHLORIDE 0.9% 1000ML 1,000 ML IV SCH (17:27)
--- NOTE | 2022-05-03 19:08 | Billing Data ---
Date of Service May 03, 2022 Coding Level of Care Code 69130 SUB INP/OBS CARE
[2022-05-04] MEDS: SODIUM CHLORIDE 0.9% 1000ML 1,000 ML IV SCH ×2 (05:38→18:03)
--- NOTE | 2022-05-04 09:05 | Hospitalist Progress Note ---
Date of Service May 04, 2022 Assessment & Plan (1) Weakness: Plan: 45 year old male w/ multiple sclerosis, primary hyperparathyroidism, chronic DVT, stool incontinence presenting with progressive weakness. -Hx of multiple admission for similar. -Significant inability to care for self secondary to physical limitations from multiple sclerosis -PT/OT evals recommend SNF (2) Multiple sclerosis: Plan: -Chronic, w/ LLE weakness since 2009, wheelchair bound -Followed with [facility] neurology, but has not recently seen. Per manager urgent care, no show in 01/2022, last seen 2018. Patient had inpatient [facility] neuro consult early Apr 2021; plan at that time was outpatient f/u to discuss Ocrevus. -Last MRI in 09/2021 unchanged from previous -Lower suspicion for emergent pathology such as cauda equina at this time. will hold off on repeat MRI or steroid treatment -Will discuss w/ manager urgent care for assistance in helping patient arrange f/u w/ neuro (3) Primary hyperparathyroidism: Plan: -Chronic. PTH 184.7 in 04/2021, persistent elevation since 2017 -Continue home cinacalcet -vit D borderline low at 25.2. assess 5000IU daily vit d supplement compliance; increase if needed (4) CKD (chronic kidney disease): Plan: Stage 2. Cr baseline of 1.1s. slight uptrending to 1.34. Gentle IV fluids. Follow BMP. (5) Stool incontinence: Plan: -Likely secondary to neurologic dysfunction from multiple sclerosis, chronic (6) Chronic deep vein thrombosis (DVT) of distal vein of left lower extremity: Plan: -Continue home Eliquis. Plan Diet: regular. NSS 80/hr. anticoag: Eliquis code: full dispo: med surg Admission and Anticipated Discharge Date Admission Date: May 01, 2022 Supervising Physician Co-Signing Physician Notes I personally examined the patient and verified all toribio points of history and exam, discussed case, and agree with decision making with Dr John No acute complaints. no needs. awaiting placement Vitals noted, in general he is awake and alert pleasant no distress. HEENT normocephalic atraumatic mucous membranes moist. Breathing unlabored no accessory muscle use good effort. Skin shows no rashes no pallor or icterus. MSwork on placement for ongoing care for now. continue current medical care. Notes that it has been several difficulties with outpatient neurology follow-up but he would really like to do [facility] navigator to help with this - referral placed. stable pending placement Otherwise as above. Subjective No complaints. Doing well. Had BM yesterday. Review of Systems Review of Systems: All systems reviewed & are unremarkable except as noted in HPI & below Physical Exam Physical Exam: General: Grossly A&Ox3. NAD. Cooperative. HEENT: Atraumatic, normocephalic. Pulm: CTAB. -wheezes, -rales, -rhonchi. No accessory muscle use. Cardiac: RRR, -mrg. Abdominal: Nontender, nondistended, soft. Neuro: Bilateral lower extremities w/ intact sensation to light touch. L lower extremity 1/5 strength (baseline). R lower extremity 5/5 strength. Results & Data Results & Data ([facility]) Vital Signs (Past 12 Hours) Vital Signs Temp Pulse Resp BP Pulse Ox O2 Del Method 05/04/22 07:51 36.4 C L 67 18 131/80 96 Room Air Resident Activity Tracking Resident Involvement: Resident Care Provided Care Provided: Adult Hospital Medicine
[2022-05-04] MEDS: CINACALCET HCL 30 MG TAB PO SCH ×2 (09:27→20:38)
[2022-05-04] MEDS: FLUoxetine HCL 20 MG CAP PO SCH (09:27)
[2022-05-04] MEDS: CHOLECALCIFEROL 5,000 UNITS 125 MCG TAB PO SCH (09:27)
[2022-05-04] MEDS: APIXABAN 5 MG TABLET PO SCH ×2 (09:27→20:38)
[2022-05-04] MEDS: ACETAMINOPHEN 500 MG TAB PO PRN (09:33)
--- NOTE | 2022-05-04 21:04 | Billing Data ---
Date of Service May 04, 2022 Coding Level of Care Code 94860 SUB INP/OBS CARE
[2022-05-05] MEDS: CINACALCET HCL 30 MG TAB PO SCH ×2 (07:45→21:31)
[2022-05-05] MEDS: APIXABAN 5 MG TABLET PO SCH ×2 (07:46→21:31)
[2022-05-05] MEDS: FLUoxetine HCL 20 MG CAP PO SCH (07:46)
[2022-05-05] MEDS: CHOLECALCIFEROL 5,000 UNITS 125 MCG TAB PO SCH (07:46)
--- NOTE | 2022-05-05 15:32 | Hospitalist Progress Note ---
Medical Student Supervision Note: I was personally present during medical student patient encounter and independently interviewed and examined the patient and verified the toribio history and physical, reviewed labs and image studies, discussed the case with Marlen Alfaro and agree with the findings and care plan. Denied any concerns. waiting to hear regarding rehab placement. no new changes o/e - No distress. pleasant. AAOx3, no respiratory distress neuro - no changes from baseline. a/p - Weakness with h/o multiple sclerosis -Wheel chair bound -MRI with no new changes -in process of getting [facility]. new insurance doesn't cover [facility] -PT/OT - recommend SNF. case mx working on plan Hyperparathyroidism - primary -outpatient follow up -continue home cinacalcet 30 mg BID -vitamin D insufficiency - 25 - increased D3 dose from 1000 to 5000U. Elevation in creatinine - Tita -gentle hydration. follow chronic DVT -continue eliquis Date of Service May 05, 2022 Assessment & Plan (1) Weakness: Plan: 45 year old male w/ multiple sclerosis, primary hyperparathyroidism, chronic DVT, stool incontinence presenting with progressive weakness. - Multiple previous admissions for similar complaint, last one in April. Did not go to rehab at this time. - Inability to care for himself due to significant physical limitations from multiple sclerosis. - Weakness secondary to MS, has not been on an MS medication in some time. - PT/OT recommend SNF, patient would like to go to [place] if possible because has received quality care there in the past. (2) Multiple sclerosis: Plan: -Chronic, w/ Left LE weakness since 2009, wheelchair bound -Followed with [facility] neurology, but has not recently seen. Per care transition manager, no show in 01/2022, last seen 2018. Patient had inpatient [facility] neuro consult early Apr 2021; plan at that time was outpatient f/u to discuss Ocrevus. Has had good success with Ocrevus in the past but has not been on it for some time. -Last MRI in 09/2021 unchanged from previous -Lower suspicion for emergent pathology such as cauda equina at this time. will hold off on repeat MRI or steroid treatment -Will discuss w/ care transition manager for assistance in helping patient arrange f/u w/ neuro. His insurance was no longer going to cover [facility] visits; appreciate an appointment to establish care with neurologist visit that would be covered. (3) Primary hyperparathyroidism: Plan: -Chronic. PTH 184.7 in 04/2021, persistent elevation since 2018 -Continue home cinacalcet 30 mg BID -Vitamin D borderline low at 25.2. Patient was previously taking 1000 IU but had switched himself to 5000 IU dose for past 1 week. Continue 5000 IU daily. (4) CKD (chronic kidney disease): Plan: Stage 2. Cr baseline of 1.1s. slight uptrending to 1.34. Gentle IV fluids. Follow BMP. (5) Stool incontinence: Plan: -Likely secondary to neurologic dysfunction from multiple sclerosis, chronic (6) Chronic deep vein thrombosis (DVT) of distal vein of left lower extremity: Plan: -Continue home Eliquis 5 mg BID. Plan Diet: regular anticoag: (Eliquis) apixaban code: full dispo: med surg Admission and Anticipated Discharge Date Admission Date: May 01, 2022 Oscar Heath is a 46 y.o. male w/ PMH multiple sclerosis, primary hypertension, chronic DVT, stool incontinence, who presented with progressive weakness. Today he is overall feeling well and has no acute complaints. He believes he would benefit most from rehab to become more competent with activities of daily living and reports increasing instability and weakness. Review of Systems Review of Systems: All systems reviewed & are unremarkable except as noted in HPI & below Physical Exam Physical Exam: General: Alert and Oriented to person, place, and time. No Acute Distress. Pulmonary: Normal respiratory effort. Clear to auscultation bilaterally. No wheezes, rales, or rhonchi. Cardiac: Normal rate and rhythm. No murmurs, rubs, or gallops. Abdominal: Normoactive Bowel sounds. Nontender, nondistended. No masses. Neuro: Cranial nerves II_XII intact. Significant left lower extremity weakness compared to right. Results & Data Results & Data ([facility]) Vital Signs (Past 12 Hours) Vital Signs Temp Pulse Resp BP Pulse Ox O2 Del Method 05/05/22 07:46 Room Air 05/05/22 07:07 36.6 C 70 16 127/75 97 Room Air 05/04/22 22:05 36.8 C 71 16 129/75 98 Room Air
[2022-05-05] MEDS: ACETAMINOPHEN 500 MG TAB PO PRN (17:11)
[2022-05-06] MEDS: CINACALCET HCL 30 MG TAB PO SCH ×2 (08:05→21:46)
[2022-05-06] MEDS: FLUoxetine HCL 20 MG CAP PO SCH (08:05)
[2022-05-06] MEDS: APIXABAN 5 MG TABLET PO SCH ×2 (08:05→21:46)
[2022-05-06] MEDS: CHOLECALCIFEROL 5,000 UNITS 125 MCG TAB PO SCH (08:05)
--- NOTE | 2022-05-06 08:50 | Hospitalist Progress Note ---
Medical Student Supervision Note: I was personally present during medical student patient encounter and independently interviewed and examined the patient and verified the toribio history and physical, reviewed labs and image studies, discussed the case with Marlen Alfaro and agree with the findings and care plan. No concerns. waiting to hear regarding rehab placement. o/e - No distress. pleasant. AAOx3, no respiratory distress neuro - no changes from baseline. a/p - Weakness with h/o multiple sclerosis -Wheel chair bound -MRI with no new changes -in process of getting [facility]. new insurance doesn't cover [facility] -PT/OT - recommend SNF. case mx working on plan Hyperparathyroidism - primary -outpatient follow up -continue home cinacalcet 30 mg BID -vitamin D insufficiency - 25 - increased D3 dose from 1000 to 5000U. Tita -received IV hydration. chronic DVT -continue eliquis Date of Service May 06, 2022 Assessment & Plan (1) Weakness: Plan: 45 year old male w/ multiple sclerosis, primary hyperparathyroidism, chronic DVT, stool incontinence presenting with progressive weakness. - Multiple previous admissions for similar complaint, last one in April. Did not go to rehab at this time. - Inability to care for himself due to significant physical limitations from multiple sclerosis. - Weakness secondary to MS, has not been on an MS medication in some time. - PT/OT recommend SNF, patient would like to go to [place] if possible because has received quality care there in the past. manager actuarial has reached out to [place] swing bed unit; awaiting news for available space. (2) Multiple sclerosis: Plan: -Chronic, w/ Left LE weakness since 2009, wheelchair bound -Followed with [facility] neurology, but has not recently seen. Per manager primary care, no show in 01/2022, last seen 2018. Patient had inpatient [facility] neuro consult early Apr 2021; plan at that time was outpatient f/u to discuss Ocrevus. Has had good success with Ocrevus in the past but has not been on it for some time. -Last MRI in 09/2021 unchanged from previous -Lower suspicion for emergent pathology such as cauda equina at this time. will hold off on repeat MRI or steroid treatment -Will discuss w/ manager primary care for assistance in helping patient arrange f/u w/ neuro. His insurance was no longer going to cover [facility] visits; appreciate an appointment to establish care with neurologist visit that would be covered. (3) Primary hyperparathyroidism: Plan: -Chronic. PTH 184.7 in 04/2021, persistent elevation since 2018 -Continue home cinacalcet 30 mg BID -Vitamin D borderline low at 25.2. Patient was previously taking 1000 IU but had switched himself to 5000 IU dose for past 1 week. Continue 5000 IU daily. (4) CKD (chronic kidney disease): Plan: Stage 2. Cr baseline of 1.1s. slight uptrending to 1.34. Gentle IV fluids. Follow BMP. (5) Stool incontinence: Plan: -Likely secondary to neurologic dysfunction from multiple sclerosis, chronic (6) Chronic deep vein thrombosis (DVT) of distal vein of left lower extremity: Plan: -Continue home Eliquis 5 mg BID. Plan Diet: regular anticoag: (Eliquis) apixaban code: full dispo: med surg Admission and Anticipated Discharge Date Admission Date: May 01, 2022 Supervising Physician Co-Signing Physician Notes I personally examined the patient and verified all toribio points of history and exam, discussed case, and agree with decision making with Dr John No acute complaints. no needs. awaiting placement Vitals noted, in general he is awake and alert pleasant no distress. HEENT normocephalic atraumatic mucous membranes moist. Breathing unlabored no accessory muscle use good effort. Skin shows no rashes no pallor or icterus. MSwork on placement for ongoing care for now. continue current medical care. Notes that it has been several difficulties with outpatient neurology follow-up but he would really like to do [facility] navigator to help with this - referral placed. stable pending placement Otherwise as above. Oscar Heath is a 46 y.o. male w/ PMH multiple sclerosis, primary hypertension, chronic DVT, stool incontinence, who presented with progressive weakness. Today he is doing well. He has no acute concerns. He has a good appetite and is voiding well. Having appropriate bowel movements. Review of Systems Review of Systems: All systems reviewed & are unremarkable except as noted in HPI & below Physical Exam Physical Exam: General: Alert and Oriented to person, place, and time. No Acute Distress. Pulmonary: Normal respiratory effort. Clear to auscultation bilaterally. Cardiac: Normal rate and rhythm. No murmurs, rubs, or gallops auscultated. Abdominal: Normoactive Bowel sounds. Nontender, nondistended. No masses. Neuro: Cranial nerves intact. Significant left lower extremity weakness compared to right. Results & Data Results & Data ([facility]) Vital Signs (Past 12 Hours) Vital Signs Temp Pulse Resp BP Pulse Ox O2 Del Method 05/06/22 06:59 36.5 C 60 16 119/71 97 Room Air 05/05/22 22:18 36.6 C 66 18 130/73 97 Room Air
[2022-05-06] MEDS: ACETAMINOPHEN 500 MG TAB PO PRN (21:46)
[2022-05-07] MEDS: CINACALCET HCL 30 MG TAB PO SCH ×2 (08:09→20:36)
[2022-05-07] MEDS: CHOLECALCIFEROL 5,000 UNITS 125 MCG TAB PO SCH (08:09)
[2022-05-07] MEDS: APIXABAN 5 MG TABLET PO SCH ×2 (08:09→20:36)
[2022-05-07] MEDS: FLUoxetine HCL 20 MG CAP PO SCH (08:09)
--- NOTE | 2022-05-07 09:33 | Hospitalist Progress Note ---
Date of Service May 07, 2022 Assessment & Plan (1) Weakness: Plan: 45 year old male w/ multiple sclerosis, primary hyperparathyroidism, chronic DVT, stool incontinence presenting with progressive weakness. - Multiple previous admissions for similar complaint, last one in April. Did not go to rehab at this time. - Inability to care for himself due to significant physical limitations from multiple sclerosis. - Weakness secondary to MS, has not been on an MS medication in some time. - PT/OT recommend SNF, patient would like to go to [facility] if possible because has received quality care there in the past. managed care manager has reached out to [facility] swing bed unit; they have beds available. Awaiting appropriate approvals from insurance. (2) Multiple sclerosis: Plan: -Chronic, w/ Left LE weakness since 2009, wheelchair bound -Followed with [facility] neurology, but has not recently seen. Per manager managed care, no show in 01/2022, last seen 2018. Patient had inpatient [facility] neuro consult early Apr 2021; plan at that time was outpatient f/u to discuss Ocrevus. Has had good success with Ocrevus in the past but has not been on it for some time. -Last MRI in 09/2021 unchanged from previous -Lower suspicion for emergent pathology such as cauda equina at this time. will hold off on repeat MRI or steroid treatment -Will discuss w/ manager managed care for assistance in helping patient arrange f/u w/ neuro. His insurance was no longer going to cover [facility] visits; appreciate an appointment to establish care with neurologist visit that would be covered. (3) Primary hyperparathyroidism: Plan: -Chronic. PTH 184.7 in 04/2021, persistent elevation since 2018 -Continue home cinacalcet 30 mg BID -Continue 5000 IU daily. (4) CKD (chronic kidney disease): Plan: Stage 2. Cr baseline of 1.1s. (5) Stool incontinence: Plan: -Likely secondary to neurologic dysfunction from multiple sclerosis, chronic (6) Chronic deep vein thrombosis (DVT) of distal vein of left lower extremity: Plan: -Continue home Eliquis 5 mg BID. Plan Diet: regular anticoag: (Eliquis) apixaban code: full dispo: med surg Admission and Anticipated Discharge Date Admission Date: May 01, 2022 Supervising Physician Co-Signing Physician Notes Medical Student Supervision Note: I was personally present during medical student patient encounter and valery amin interviewed and examined the patient and verified the toribio history and physical, reviewed labs and image studies, discussed the case with Marlen Alfaro and agree with the findings and care plan. No concerns today. waiting to hear regarding rehab placement. o/e - No distress. pleasant. AAOx3, no respiratory distress neuro - no changes from baseline. a/p - Weakness with h/o multiple sclerosis -Wheel chair bound -MRI with no new changes -in process of getting outpatient follow up with neuro with [facility]. new insurance doesn't cover [facility] -PT/OT - recommend SNF. case mx working on plan Hyperparathyroidism - primary -outpatient follow up -continue home cinacalcet 30 mg BID -vitamin D insufficiency - 25 - increased D3 dose from 1000 to 5000U. Tita -received IV hydration. chronic DVT -continue eliquis Subjective Mazin Heath is a 46 y.o. male w/ PMH multiple sclerosis, primary hypertension, chronic DVT, stool incontinence, who presented with progressive weakness. Mazin is feeling well today. He does not have any acute complaints. Appropriate appetite and bowel movements. Review of Systems Review of Systems: All systems reviewed & are unremarkable except as noted in HPI & below Physical Exam Physical Exam: General: In no acute distress. Alert and Oriented x3. Pulmonary: Normal respiratory effort. Breath sounds clear to auscultation bilaterally. Cardiac: Normal rate and rhythm. No murmurs, rubs, or gallops auscultated. Abdominal: Normoactive Bowel sounds. No masses palpated. Neuro: Cranial nerves II-XII intact. Significant left lower extremity weakness compared to right. Results & Data Results & Data ([facility]) Vital Signs (Past 12 Hours) Vital Signs Temp Pulse Resp BP Pulse Ox O2 Del Method 05/07/22 07:33 36.4 C L 70 16 121/79 96 Room Air 05/06/22 21:46 Room Air
[2022-05-07] MEDS: ACETAMINOPHEN 500 MG TAB PO PRN (16:59)
[2022-05-08] MEDS: ACETAMINOPHEN 500 MG TAB PO PRN ×2 (01:57→20:24)
--- NOTE | 2022-05-08 07:42 | Hospitalist Progress Note ---
Date of Service May 08, 2022 Assessment & Plan (1) Weakness: Plan: 45 year old male w/ multiple sclerosis, primary hyperparathyroidism, chronic DVT, stool incontinence presenting with progressive weakness. Weakness: - Multiple previous admissions for similar complaint, last one in April. Did not go to rehab at this time. - Inability to care for himself due to significant physical limitations from multiple sclerosis. - Weakness secondary to MS, has not been on an MS medication in some time. - PT/OT recommend SNF, Patient to go to [facility] once they call patient's father. Multiple Sclerosis: -Chronic, w/ Left LE weakness since 2009, wheelchair bound -Followed with [facility] neurology, last seen 2018. Patient had inpatient [facility] neuro consult early Apr 2021; plan at that time was outpatient f/u to discuss Ocrevus. Has had good success with Ocrevus in the past but has not been on it for some time. -Last MRI in 09/2021 unchanged from previous scan. -Lower suspicion for emergent pathology such as cauda equina at this time. will hold off on repeat MRI or steroid treatment -Will discuss w/ regular senior care provider for assistance in helping patient arrange f/u w/ neuro. -His insurance was no longer going to cover [facility] visits; will try to set up with [facility] neurology. Primary hyperparathyroidism: -Chronic. PTH 184.7 in 04/2021, persistent elevation since 2018 -Continue home cinacalcet -vit D borderline low at 25.2. assess 5000IU daily vit d supplement compliance; increase if needed. CKD: -Stage 2. Cr baseline of 1.1. downtrending, latest 1.24. Stool Incontinence: -Likely secondary to neurologic dysfunction from multiple sclerosis, chronic. Chronic DVT LLE: -Continue home Eliquis. Diet: regular. anticoag: Eliquis code: full code. dispo: med/surg. (2) Multiple sclerosis: (3) Primary hyperparathyroidism: (4) CKD (chronic kidney disease): (5) Stool incontinence: (6) Chronic deep vein thrombosis (DVT) of distal vein of left lower extremity: Admission and Anticipated Discharge Date Admission Date: May 01, 2022 Supervising Physician Co-Signing Physician Notes Resident Physician Supervision Note: I independently interviewed and examined the patient and verified the toribio history and physical, reviewed labs and image studies and agree with resident findings and care plan. Subjective Patient seen at the bedside this morning feeling good saying he's ready to go to the rehab facility. He said that it always happens where there is a delay because the accepting facility has to double check he is going back with his dad. He lives with his father and him and his father are on really good terms, his father helps him out when he gets back from the rehab facilities. Review of Systems Review of Systems: Per HPI Physical Exam Constitutional: WD/WN, vitals as above Eyes: PERRL, conjunctivae normal, anicteric sclerae Respiratory: normal respiratory effort, lungs clear to auscultation Cardiovascular: RRR, no murmur, no edema Psychiatric: A+Ox3, euthymic affect Results & Data Results & Data ([facility]) Vital Signs (Past 12 Hours) Vital Signs Temp Pulse Resp BP Pulse Ox O2 Del Method 05/08/22 07:29 36.6 C 78 18 133/86 98 Room Air 05/07/22 20:36 Room Air 05/07/22 20:34 36.6 C 78 16 133/70 97 Room Air Resident Activity Tracking Resident Involvement: Resident Care Provided Care Provided: Adult Hospital Medicine
[2022-05-08] MEDS: APIXABAN 5 MG TABLET PO SCH ×2 (09:11→20:23)
[2022-05-08] MEDS: CINACALCET HCL 30 MG TAB PO SCH ×2 (09:11→20:23)
[2022-05-08] MEDS: FLUoxetine HCL 20 MG CAP PO SCH (09:11)
[2022-05-08] MEDS: CHOLECALCIFEROL 5,000 UNITS 125 MCG TAB PO SCH (09:11)
[2022-05-08 09:48] LABS: Hematocrit (blood only) 40.4 % (42.0-52.0); Hemoglobin 13.8 g/dl (14.0-18.0); Mean Corpuscular Hemoglobin 31.6 pg (25.0-34.0); Mean Corpuscular Hgb Conc 34.2 g/dL (32.0-36.0); Mean Corpuscular Volume 92.4 fL (80.0-100.0); Mean Platelet Volume 10.1 fL (9.4-12.4); Platelet Count 211 K/uL (130-400); RDW Coefficient of Variation 12.8 % (11.5-14.5); RDW Standard Deviation 43.8 fL (36.4-46.3); Red Blood Count 4.37 M/uL (4.70-6.10); White Blood Count 6.36 K/ul (4.8-10.8)
[2022-05-08 10:06] LABS: BUN Creatinine Ratio 15.3 (10-20); Calcium 9.2 mg/dl (8.5-10.1); Creatinine Clr Calc Pharmacy 84.7 ml/min; Est GFR (African American) 79.2 ml/min; Est GFR (Non-African American) 68.3 ml/min; Potassium 3.9 mmol/L (3.5-5.1)
[2022-05-09] MEDS: CINACALCET HCL 30 MG TAB PO SCH ×2 (07:38→19:58)
[2022-05-09] MEDS: APIXABAN 5 MG TABLET PO SCH ×2 (07:38→19:58)
[2022-05-09] MEDS: CHOLECALCIFEROL 5,000 UNITS 125 MCG TAB PO SCH (07:39)
[2022-05-09] MEDS: FLUoxetine HCL 20 MG CAP PO SCH (07:39)
[2022-05-09] MEDS: ACETAMINOPHEN 500 MG TAB PO PRN ×2 (09:18→22:33)
--- NOTE | 2022-05-09 11:46 | Hospitalist Progress Note ---
Date of Service May 09, 2022 Assessment & Plan (1) Weakness: Plan: 45 year old male w/ multiple sclerosis, primary hyperparathyroidism, chronic DVT, stool incontinence presenting with progressive weakness. Weakness: - Multiple previous admissions for similar complaint, last one in April. Did not go to rehab at this time. - Inability to care for himself due to significant physical limitations from multiple sclerosis. - Weakness secondary to MS, has not been on an MS medication in some time. - PT/OT recommend SNF, Multiple Sclerosis: -Chronic, w/ Left LE weakness since 2009, wheelchair bound -Followed with [facility] neurology, last seen 2018. Patient had inpatient [facility] neuro consult early Apr 2021; plan at that time was outpatient f/u to discuss Ocrevus. Has had good success with Ocrevus in the past but has not been on it for some time. -Last MRI in 09/2021 unchanged from previous scan. -Lower suspicion for emergent pathology such as cauda equina at this time. will hold off on repeat MRI or steroid treatment -Will discuss w/ daycare director for assistance in helping patient arrange f/u w/ neuro w/ [facility] (insurance no longer covers [facility]) Primary hyperparathyroidism: -Chronic. PTH 184.7 in 04/2021, persistent elevation since 2018 -Continue home cinacalcet -vit D borderline low at 25.2. assess 5000IU daily vit d supplement compliance; increase if needed. CKD: -Stage 2. Cr baseline of 1.1. downtrending, latest 1.24. Stool Incontinence: -Likely secondary to neurologic dysfunction from multiple sclerosis, chronic. Chronic DVT LLE: -Continue home Eliquis. Diet: regular. anticoag: Eliquis code: full code. dispo: med/surg. awaiting placement (2) Multiple sclerosis: (3) Primary hyperparathyroidism: (4) CKD (chronic kidney disease): (5) Stool incontinence: (6) Chronic deep vein thrombosis (DVT) of distal vein of left lower extremity: Admission and Anticipated Discharge Date Admission Date: May 01, 2022 Supervising Physician Co-Signing Physician Notes Resident Physician Supervision Note: I independently interviewed and examined the patient and verified the toribio history and physical, reviewed labs and image studies and agree with resident findings and care plan. Subjective Patient states that she is doing well. Chronic pain 5-6/10 throbbing w/ occasional shooting at L knee down, unchanged. Denies ROS symptoms. Review of Systems Review of Systems: All systems reviewed & are unremarkable except as noted in HPI & below Physical Exam Physical Exam: General: Grossly A&O. NAD. Cooperative. HEENT: Atraumatic, normocephalic. EOMI Pulm: CTAB. -wheezes, -rales, -rhonchi. No respiratory distress. Cardiac: RRR, -mrg. No LE edema. Abdominal: Nontender, nondistended, soft. Neuro: Sensation intact of all 4 extrem. Results & Data Results & Data ([facility]) Vital Signs (Past 12 Hours) Vital Signs Temp Pulse Resp BP Pulse Ox O2 Del Method 05/09/22 07:53 36.3 C L 59 L 18 113/71 95 Room Air Resident Activity Tracking Resident Involvement: Resident Care Provided Care Provided: Adult Hospital Medicine
--- NOTE | 2022-05-10 07:05 | Hospitalist Progress Note ---
Date of Service May 10, 2022 Assessment & Plan (1) Weakness: Plan: 45 year old male w/ multiple sclerosis, primary hyperparathyroidism, chronic DVT, stool incontinence presenting with progressive weakness. Weakness: - Multiple previous admissions for similar complaint, last one in April. Did not go to rehab at this time. - Inability to care for himself due to significant physical limitations from multiple sclerosis. - Weakness secondary to MS, has not been on an MS medication in some time. - PT/OT recommend SNF, Multiple Sclerosis: -Chronic, w/ Left LE weakness since 2009, wheelchair bound -Followed with [facility] neurology, last seen 2018. Patient had inpatient [facility] neuro consult early Apr 2021; plan at that time was outpatient f/u to discuss Ocrevus. Has had good success with Ocrevus in the past but has not been on it for some time. -Last MRI in 09/2021 unchanged from previous scan. -Lower suspicion for emergent pathology such as cauda equina at this time. will hold off on repeat MRI or steroid treatment -Will discuss w/ respiratory care faculty for assistance in helping patient arrange f/u w/ neuro w/ [facility] (insurance no longer covers [facility]) Primary hyperparathyroidism: -Chronic. PTH 184.7 in 04/2021, persistent elevation since 2018 -Continue home cinacalcet -vit D borderline low at 25.2. assess 5000IU daily vit d supplement compliance; increase if needed. CKD: -Stage 2. Cr baseline of 1.1. downtrending, latest 1.24. Stool Incontinence: -Likely secondary to neurologic dysfunction from multiple sclerosis, chronic. Chronic DVT LLE: -Continue home Eliquis. Diet: regular. anticoag: Eliquis code: full code. dispo: continue hospitalization on med/surg; awaiting placement (2) Multiple sclerosis: (3) Primary hyperparathyroidism: (4) CKD (chronic kidney disease): (5) Stool incontinence: (6) Chronic deep vein thrombosis (DVT) of distal vein of left lower extremity: Admission and Anticipated Discharge Date Admission Date: May 01, 2022 Supervising Physician Co-Signing Physician Notes Resident Physician Supervision Note: I independently interviewed and examined the patient and verified the toribio history and physical, reviewed labs and image studies and agree with resident findings and care plan. Subjective Patient seen and evaluated at bedside this morning. States that he is overall doing well and has no acute concerns; awaiting placement for rehab. Reports sleeping well and eating well. Mood is good. No concerns for constipation; last BM was yesterday. Review of Systems Review of Systems: Per HPI Physical Exam Physical Exam: GENERAL: No acute distress. Well developed and well nourished. Vital signs reviewed as above. EYES: Anicteric sclerae. HENT: Moist mucous membranes. RESPIRATORY: Clear to auscultation bilaterally. No wheezing, rales, or rhonchi. CARDIOVASCULAR: Regular rate and rhythm. No murmurs. ABDOMEN: Soft, non-tender and non-distended. Normal bowel sounds. SKIN: Warm, dry. NEUROLOGIC: A/O x3. Normal speech. PSYCHIATRIC: Cooperative. Appropriate mood and affect. Results & Data Results & Data ([facility]) Vital Signs (Past 12 Hours) Vital Signs Temp Pulse Resp BP Pulse Ox O2 Del Method 05/10/22 07:03 36.5 C 64 16 130/72 96 Room Air 05/09/22 22:20 36.6 C 65 16 123/71 95 Room Air Resident Activity Tracking Resident Involvement: Resident Care Provided Care Provided: Adult Hospital Medicine
[2022-05-10] MEDS: CINACALCET HCL 30 MG TAB PO SCH ×2 (08:42→20:00)
[2022-05-10] MEDS: APIXABAN 5 MG TABLET PO SCH ×2 (08:42→20:00)
[2022-05-10] MEDS: FLUoxetine HCL 20 MG CAP PO SCH (08:43)
[2022-05-10] MEDS: CHOLECALCIFEROL 5,000 UNITS 125 MCG TAB PO SCH (08:43)
--- NOTE | 2022-05-11 07:05 | Hospitalist Progress Note ---
Date of Service May 11, 2022 Assessment & Plan (1) Weakness: Plan: 45 year old male w/ multiple sclerosis, primary hyperparathyroidism, chronic DVT, stool incontinence presenting with progressive weakness. Weakness: - Multiple previous admissions for similar complaint, last one in April. Did not go to rehab at that time. - Inability to care for himself due to significant physical limitations from multiple sclerosis. - Weakness secondary to MS, has not been on an MS medication in some time. - PT/OT recommend SNF, placement pending Multiple Sclerosis: -Chronic, w/ Left LE weakness since 2009, wheelchair bound -Followed with [facility] neurology, last seen 2018. Patient had inpatient [facility] neuro consult early Apr 2021; plan at that time was outpatient f/u to discuss Ocrevus. Has had good success with Ocrevus in the past but has not been on it for some time. -Last MRI in 09/2021 unchanged from previous scan. -Lower suspicion for emergent pathology such as cauda equina at this time. will hold off on repeat MRI or steroid treatment -Will discuss w/ group care worker for assistance in helping patient arrange f/u w/ neuro w/ [facility] (insurance no longer covers [facility]) Primary hyperparathyroidism: -Chronic. PTH 184.7 in 04/2021, persistent elevation since 2018 -Continue home cinacalcet -vit D borderline low at 25.2. assess 5000IU daily vit d supplement compliance; increase if needed. CKD: -Stage 2. Cr baseline of 1.1. downtrending, latest 1.24. Stool Incontinence: -Likely secondary to neurologic dysfunction from multiple sclerosis, chronic. Chronic DVT LLE: -Continue home Eliquis. Diet: regular. anticoag: Eliquis code: full code. dispo: continue hospitalization on med/surg; awaiting placement (2) Multiple sclerosis: (3) Primary hyperparathyroidism: (4) CKD (chronic kidney disease): (5) Stool incontinence: (6) Chronic deep vein thrombosis (DVT) of distal vein of left lower extremity: Admission and Anticipated Discharge Date Admission Date: May 01, 2022 Supervising Physician Co-Signing Physician Notes Resident Physician Supervision Note: I independently interviewed and examined the patient and verified the toribio history and physical, reviewed labs and image studies and agree with resident findings and care plan. Subjective Patient seen and evaluated at bedside this morning. No acute events reported overnight. Patient sitting in bed, eating breakfast. He has no new concerns or questions this morning. He is eating well and sleeping well. Review of Systems Review of Systems: Per HPI Physical Exam Physical Exam: GENERAL: No acute distress. Well developed and well nourished. Vital signs reviewed as above. EYES: Anicteric sclerae. HENT: Moist mucous membranes. RESPIRATORY: Unlabored respirations. No conversational dyspnea. SKIN: Warm, dry. NEUROLOGIC: A/O x3. Normal speech. PSYCHIATRIC: Cooperative. Appropriate mood and affect. Results & Data Results & Data ([facility]) Vital Signs (Past 12 Hours) Vital Signs Temp Pulse Pulse Resp BP Pulse Ox O2 Del Method 05/11/22 06:55 36.5 C 64 16 113/73 98 Room Air 05/10/22 22:15 37.1 C 73 16 113/72 94 Room Air Resident Activity Tracking Resident Involvement: Resident Care Provided Care Provided: Adult Hospital Medicine
[2022-05-11] MEDS: CINACALCET HCL 30 MG TAB PO SCH ×2 (08:21→20:55)
[2022-05-11] MEDS: CHOLECALCIFEROL 5,000 UNITS 125 MCG TAB PO SCH (08:22)
[2022-05-11] MEDS: FLUoxetine HCL 20 MG CAP PO SCH (08:22)
[2022-05-11] MEDS: APIXABAN 5 MG TABLET PO SCH ×2 (08:22→20:55)
[2022-05-11] MEDS: ACETAMINOPHEN 500 MG TAB PO PRN (18:21)
--- NOTE | 2022-05-12 07:07 | Hospitalist Progress Note ---
Date of Service May 12, 2022 Assessment & Plan (1) Weakness: Plan: 45 year old male w/ multiple sclerosis, primary hyperparathyroidism, chronic DVT, stool incontinence presenting with progressive weakness. Weakness: - Multiple previous admissions for similar complaint, last one in April. Did not go to rehab at that time. - Inability to care for himself due to significant physical limitations from multiple sclerosis. - Weakness secondary to MS, has not been on an MS medication in some time. - PT/OT recommend SNF. * Insurance denied request for SNF placement on the basis that patient was currently at clinical baseline. Spoke with medical lab tech instructor, Dr. Perez, who reiterated the same. He mentioned 3 possible alternatives: Returning home with additional home health therapy, a stay in an assisted living facility, a nd a short-term LTC stay with intermittent therapy. Explained to medical lab tech instructor of plan to schedule patient for close follow-up with neurology which necessitated SNF for optimal conditioning. Indicated to medical lab tech instructor that we would likely prefer the short-term LTC option. Plan to discuss with case management tomorrow. Multiple Sclerosis: -Chronic, w/ Left LE weakness since 2009, wheelchair bound -Followed with [facility] neurology, last seen 2018. Patient had inpatient [facility] neuro consult early Apr 2021; plan at that time was outpatient f/u to discuss Ocrevus. Has had good success with Ocrevus in the past but has not been on it for some time. -Last MRI in 09/2021 unchanged from previous scan. -Lower suspicion for emergent pathology such as cauda equina at this time. will hold off on repeat MRI or steroid treatment -Will discuss w/ cna caregiver for assistance in helping patient arrange f/u w/ neuro w/ [facility]. Patient's transportation service will only cover trips to providers within [facility], eliminating [facility] as an option despite established multiple sclerosis practice. Primary hyperparathyroidism: -Chronic. PTH 184.7 in 04/2021, persistent elevation since 2018 -Continue home cinacalcet -Vit D borderline low at 25.2. assess 5000IU daily Vit d supplement compliance; increase if needed. CKD: -Stage 2. Cr baseline of 1.1. downtrending, latest 1.24. Stool Incontinence: -Likely secondary to neurologic dysfunction from multiple sclerosis, chronic. Chronic DVT LLE: -Continue home Eliquis. Code: Full code Dispo: Med-Surg FEN/GI: Regular DVT Prophylaxis: Eliquis PT/OT: Yes Consults: None (2) Multiple sclerosis: (3) Primary hyperparathyroidism: (4) CKD (chronic kidney disease): (5) Stool incontinence: (6) Chronic deep vein thrombosis (DVT) of distal vein of left lower extremity: Admission and Anticipated Discharge Date Admission Date: May 01, 2022 Supervising Physician Co-Signing Physician Notes I personally examined the patient and verified all toribio points of history and exam, discussed case, and agree with decision making with Dr Jain feeling OK. denied [facility] swing after i saw him. peer to peer denied. vitals noted nad heent nc at mmm breathing unlabored no accessory muscles good effort skin no rashes no pallor or icterus neuro no new deficits MS - denied rehab. to have more continuous neuro follow up, which may help baseline disease process. in the meantime, will need to work with pt/family/case management for safe dispo since rehab denied Subjective No acute events overnight. Resting comfortably in bed on arrival. He has no acute complaints at this time. Review of Systems Review of Systems: All systems reviewed & are unremarkable except as noted in HPI & below Physical Exam Physical Exam: General: No acute distress HEENT: PERRLA. Normal conjunctiva, anicteric sclera. Oropharynx normal. Respiratory: Normal respiratory effort, CTABL. Cardiovascular: RRR without murmurs, gallops, or rubs. No edema. GI: Soft abdomen with normal bowel sounds heard on auscultation. Nontender x4 quadrants Neuro: Alert and 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 Results & Data Results & Data ([facility]) Vital Signs (Past 12 Hours) Vital Signs Temp Pulse Resp BP Pulse Ox O2 Del Method 05/11/22 21:52 36.8 C 74 16 134/65 95 Room Air Resident Activity Tracking Resident Involvement: Resident Care Provided Care Provided: Adult Hospital Medicine
[2022-05-12] MEDS: FLUoxetine HCL 20 MG CAP PO SCH (07:33)
[2022-05-12] MEDS: APIXABAN 5 MG TABLET PO SCH ×2 (07:33→21:15)
[2022-05-12] MEDS: CINACALCET HCL 30 MG TAB PO SCH ×2 (07:33→21:15)
[2022-05-12] MEDS: CHOLECALCIFEROL 5,000 UNITS 125 MCG TAB PO SCH (07:34)
--- NOTE | 2022-05-12 18:30 | Billing Data ---
Date of Service May 12, 2022 Coding Level of Care Code 64489 SUB INP/OBS CARE
[2022-05-13] MEDS: ACETAMINOPHEN 500 MG TAB PO PRN ×2 (01:48→19:19)
[2022-05-13 08:02] LABS: Basophils # (auto) 0.05 K/uL (0-0.2); Basophils % (auto) 0.8 %; Eosinophils # (auto) 0.09 K/uL (0-0.50); Eosinophils % (auto) 1.4 %; Hematocrit (blood only) 39.2 % (42.0-52.0); Hemoglobin 13.6 g/dl (14.0-18.0); Immature Granulocytes # (auto) 0.05 K/uL (0.01-0.20); Immature Granulocytes % (auto) 0.8 %; Lymphocytes # (auto) 1.57 K/uL (1.2-3.4); Lymphocytes % (auto) 23.7 %; Mean Corpuscular Hemoglobin 32.2 pg (25.0-34.0); Mean Corpuscular Hgb Conc 34.7 g/dL (32.0-36.0); Mean Corpuscular Volume 92.7 fL (80.0-100.0); Mean Platelet Volume 10.1 fL (9.4-12.4); Monocytes # (auto) 0.68 K/uL (0.11-0.59); Monocytes % (auto) 10.3 %; Neutrophils # (auto) 4.18 K/uL (1.40-6.50); Platelet Count 240 K/uL (130-400); RDW Coefficient of Variation 12.6 % (11.5-14.5); RDW Standard Deviation 43.3 fL (36.4-46.3); Red Blood Count 4.23 M/uL (4.70-6.10); White Blood Count 6.62 K/ul (4.8-10.8)
--- NOTE | 2022-05-13 08:10 | Hospitalist Progress Note ---
Date of Service May 13, 2022 Assessment & Plan (1) Weakness: Plan: 45 year old male w/ multiple sclerosis, primary hyperparathyroidism, chronic DVT, stool incontinence presenting with progressive weakness. Weakness: - Multiple previous admissions for similar complaint, last one in April. Did not go to rehab at that time. - Inability to care for himself due to significant physical limitations from multiple sclerosis. - Weakness secondary to MS, has not been on an MS medication in some time. - PT/OT recommend SNF. * Insurance denied request for SNF placement on the basis that patient was currently at clinical baseline. Spoke with biomedical technician, Dr. Perez, who reiterated the same. He mentioned 3 possible alternatives: Returning home with additional home health therapy, a stay in an assisted living facility, a nd a short-term LTC stay with intermittent therapy. Explained to biomedical technician of plan to schedule patient for close follow-up with neurology which necessitated SNF for optimal conditioning. Indicated to biomedical technician that we would likely prefer the short-term LTC option. Plan to discuss with case management tomorrow. Multiple Sclerosis: -Chronic, w/ Left LE weakness since 2009, wheelchair bound -Followed with [facility] neurology, last seen 2018. Patient had inpatient [facility] neuro consult early Apr 2021; plan at that time was outpatient f/u to discuss Ocrevus. Has had good success with Ocrevus in the past but has not been on it for some time. -Last MRI in 09/2021 unchanged from previous scan. -Lower suspicion for emergent pathology such as cauda equina at this time. will hold off on repeat MRI or steroid treatment -Will discuss w/ animal care giver for assistance in helping patient arrange f/u w/ neuro w/ [facility]. Patient's transportation service will only cover trips to providers within [facility], eliminating [facility] as an option despite established multiple sclerosis practice. Primary hyperparathyroidism: -Chronic. PTH 184.7 in 04/2021, persistent elevation since 2018 -Continue home cinacalcet -Vit D borderline low at 25.2. assess 5000IU daily Vit d supplement compliance; increase if needed. CKD: -Stage 2. Cr baseline of 1.1. downtrending, latest 1.24. Stool Incontinence: -Likely secondary to neurologic dysfunction from multiple sclerosis, chronic. Chronic DVT LLE: -Continue home Eliquis. Code: Full code Dispo: Med-Surg FEN/GI: Regular DVT Prophylaxis: Eliquis PT/OT: Yes Consults: None (2) Multiple sclerosis: (3) Primary hyperparathyroidism: (4) CKD (chronic kidney disease): (5) Stool incontinence: (6) Chronic deep vein thrombosis (DVT) of distal vein of left lower extremity: Admission and Anticipated Discharge Date Admission Date: May 01, 2022 Subjective No acute events overnight. Review of Systems Review of Systems: All systems reviewed & are unremarkable except as noted in HPI & below Physical Exam Physical Exam: General: No acute distress HEENT: PERRLA. Normal conjunctiva, anicteric sclera. Oropharynx normal. Respiratory: Normal respiratory effort, CTABL. Cardiovascular: RRR without murmurs, gallops, or rubs. No edema. GI: Soft abdomen with normal bowel sounds heard on auscultation. Nontender x4 quadrants Neuro: Alert and 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 Results & Data Results & Data ([facility]) Vital Signs (Past 12 Hours) Vital Signs Temp Pulse Resp BP Pulse Ox O2 Del Method 05/12/22 21:13 36.8 C 76 16 130/74 96 Room Air
[2022-05-13 08:17] LABS: BUN Creatinine Ratio 15.2 (10-20); Calcium 9.3 mg/dl (8.5-10.1); Est GFR (African American) 78.4 ml/min; Est GFR (Non-African American) 67.7 ml/min; Phosphorus 2.5 mg/dl (2.5-4.9); Potassium 4.1 mmol/L (3.5-5.1)
[2022-05-13] MEDS: FLUoxetine HCL 20 MG CAP PO SCH (08:26)
[2022-05-13] MEDS: CHOLECALCIFEROL 5,000 UNITS 125 MCG TAB PO SCH (08:26)
[2022-05-13] MEDS: APIXABAN 5 MG TABLET PO SCH ×2 (08:26→20:28)
[2022-05-13] MEDS: CINACALCET HCL 30 MG TAB PO SCH ×2 (09:04→20:28)
--- NOTE | 2022-05-13 12:28 | Discharge Summary ---
Date of Service May 13, 2022 Admission HPI Per Admitting Provider 45 year old male w/ multiple sclerosis, primary hyperparathyroidism, chronic DVT, stool incontinence presenting with weakness. Pt came to ED today due to progressive weakness and bowel incontinence. Pt lives at home with father as his main caregiver and uncle as well over last few months. He has been admitted multiple times for weakness typically due to MS flares. Pt states he has been incontinent of stool at night over past few months but it occurred during the daytime today. He denies any particular symptoms/complaints aside from generalized weakness per his baseline. He is frustrated because his father and uncle are working very hard to care for him and he "does not want to do that to them anymore". Pt has been resistant to placement in the past but feels he is no longer able to care for himself at home. He reports feeling like a burden to his family. Pt is interested in placement at this time. He denies feeling similar to his condition during previous MS flares and generally denies any acute issues at present. Pt arrived to ER hemodynamically stable. Labwork largely unremarkable, Ca 11.6. Head CT, CXR normal. EKG normal. Pt given Tylenol for headache in ER. Admission Exam Per Admitting Provider Constitutional: well-appearing, no acute distress, laying in bed HEENT: NCAT, PERRLA, EOMI, no conjunctival injection, moist mucous membranes CV: regular rate and rhythm, normal S1 and S2, no murmur appreciated, extremities well-perfused, no LE edema Resp: CTAB, no wheezes/rales/rhonchi appreciated, no increased work of breathing GI: soft, nondistended, nontender, normal bowel sounds Skin: warm, dry, no rash appreciated Neuro: grossly alert and oriented, RUE and RLE strength 5/5, LUE strength 3/5, LLE strength 3/5, reduced sensation on L > R UE and LE, no additional focal motor or sensory deficits appreciated Principal Diagnosis MS Discharge Exam General: No acute distress HEENT: PERRLA. Normal conjunctiva, anicteric sclera. Oropharynx normal. Respiratory: Normal respiratory effort, CTABL. Cardiovascular: RRR without murmurs, gallops, or rubs. No edema. GI: Soft abdomen with normal bowel sounds heard on auscultation. Nontender x4 quadrants Neuro: Alert and 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 Discharge Data Allergies Allergy/AdvReac Type Severity Reaction Status Date / Time aspirin Allergy Severe airway Verified 05/01/22 19:29 edema; hives Consultations 05/01/22 19:12 ED Decision to Admit Stat Ordered Studies 05/01/22 16:36 CT head/brain wo con Stat Hospital Course (1) Weakness: 45 year old male w/ multiple sclerosis, primary hyperparathyroidism, chronic DVT, stool incontinence presenting with progressive weakness. Weakness: - Multiple previous admissions for similar complaint, last one in April. Did not go to rehab at that time. - Inability to care for himself due to significant physical limitations from m ultiple sclerosis. - Weakness secondary to MS, has not been on an MS medication in some time. - PT/OT recommend SNF. * Insurance denied request for SNF placement on the basis that patient was currently at clinical baseline. Spoke with medical social consultant, Dr. Perez, who reiterated the same. He mentioned 3 possible alternatives: Returning home with additional home health therapy, a stay in an assisted living facility, and a short-term LTC stay with intermittent therapy. Explained to medical social consultant of plan to schedule patient for close follow-up with neurology which necessitated SNF for optimal conditioning. Opted to set up additional home therapy covered by insurance. This is completely assessed successfully by case management and patient was prepped for discharge. Multiple Sclerosis: -Chronic, w/ Left LE weakness since 2009, wheelchair bound -Followed with [facility] neurology, last seen 2018. Patient had inpatient [facility] neuro consult early Apr 2021; plan at that time was outpatient f/u to discuss Ocrevus. Has had good success with Ocrevus in the past but has not been on it for some time. -Last MRI in 09/2021 unchanged from previous scan. -Lower suspicion for emergent pathology such as cauda equina at this time. will hold off on repeat MRI or steroid treatment -Will discuss w/ animal caregiver for assistance in helping patient arrange f/u w/ neuro w/ [facility]. Patient's transportation service will only cover trips to providers within [facility], eliminating [facility] as an option despite established multiple sclerosis practice. -Messaged Dr. Fabrice Polanco directly regarding scheduling patient for earlier outpatient follow-up, as opposed to waiting until November, which is earliest outpatient appointment time . Expect outpatient follow-up in a few weeks to 1 month at [facility]. Primary hyperparathyroidism: -Chronic. PTH 184.7 in 04/2021, persistent elevation since 2018 -Continue home cinacalcet -Vit D borderline low at 25.2. assess 5000IU daily Vit d supplement compliance; increase if needed. CKD: -Stage 2. Cr baseline of 1.1. downtrending, latest 1.24. Stool Incontinence: -Likely secondary to neurologic dysfunction from multiple sclerosis, chronic. Chronic DVT LLE: -Continue home Eliquis. (2) Multiple sclerosis: (3) Primary hyperparathyroidism: (4) CKD (chronic kidney disease): (5) Stool incontinence: (6) Chronic deep vein thrombosis (DVT) of distal vein of left lower extremity: Total Time Total Time Spent Total Time Spent (In Minutes): <30 Discharge Plan Discharge Items Patient Disposition: Home - Home Health Services Reason For Visit: INABILITY TO CARE FOR SELF, PROGRESSIVE WEAKNESS Discharge Diagnosis: Multiple sclerosis, progressive weakness Activity: Per Instructions section Non-emergency contact: Primary Care Provider Call non-emergency contact if: you have any medication questions, your pain is not controlled and your pain is unusual for you Follow-up/Referrals: Fabrice Polanco MD [Physician] - 12/11/22 2:00 pm Louis Hale [Primary Care Provider] - 05/19/22 2:05 pm (WITH DR KEBEDE) Diet: Regular Addtl Attending Provider Instructions: You were admitted to the hospital for progressive weakness. You were treated with IV fluids and physical therapy. A discharge summary will be sent to your primary care physician to ensure continuity of care. Please bring this discharge summary with you to your next office appointment so that your provider can review it at that time. Follow-up appointments: * We have requested a follow-up appointment with your primary care physician within one week of discharge. Please call their office if you do not hear from them. * We have scheduled home health therapy to provide additional care for you at home. * You have an appointment with [facility] on _ at _. If you are unable to make this appointment, or have any other questions, their office can be reached at _. * Keep all your follow-up appointments as already scheduled. If you cannot make an appointment, notify your provider. Medications: Your medication list has been reviewed and reconciled upon discharge to ensure accuracy and continuity of care. An updated list of all your medications is included with your hospital discharge paperwork. Please review this list closely, and make note of any changes. * We added no new medications to your medication list. Take your medications as instructed; do not skip a dose of your medicines. Make sure all of your doctors know every medicine you are taking (including skoa-jxm-wyctcet medicines, vitamins, and supplements). Call your primary care provider before taking any new medicines (including nfed-qnu-zpqodme medicines, vitamins, and supplements), because some of these may interact with your current medications, or may make your symptoms worse. Tell your primary care provider if you cannot afford your medications. CONTACT YOUR PRIMARY CARE PROVIDER if you experience any of the following: * Increased weakness * Increased shortness of breath * Difficulty following your treatment plan, or difficulty taking medications CALL 911 OR GO TO THE EMERGENCY DEPARTMENT if you experience any of the following: * Sudden, severe abdominal pain or nausea/vomiting * Severe chest pain, or chest pain that radiates (moves) to your jaw or arm * Sudden, severe shortness of breath or difficulty breathing Thank you for allowing us to participate in your care. Pending Studies at Discharge: No Stand-Alone Forms: My [facility], Smoking Cessation Medications and DC Order Prescriptions: Continued tizanidine 2 mg tablet 2 mg PO DAILY PRN (Reason: muscle spasms) Eliquis 5 mg tablet 5 mg PO BID fluoxetine 20 mg capsule 20 mg PO DAILY cinacalcet 30 mg tablet 30 mg PO BID cholecalciferol (vitamin D3) 125 mcg (5,000 unit) Tablet 5,000 unit PO QAM 30 Days Qty: 30 0RF Krames/Other Patient Handouts: Multiple Sclerosis Dc Admission Data Admit Date/Time: 05/01/22 20:08 Attending Provider: Dayo Anderson Admit Provider: Ivonne Tapia Primary Care Provider: Louis Hale Other Providers: Fer Cloud ; Ivonne Tapia ; Dayo Anderson ; [facility],Referral Center ; [facility],Home Healthcare Other Interventions: Discharge Summary Assessment (RN) Last Done: 05/13/22 12:15 Supervising Physician Co-Signing Physician Notes I personally examined the patient and verified all toribio points of history and exam, discussed case, and agree with decision making with Dr Jain since rehab denied - home w home PT/support. outpt neurology follow up being coordinated. he is comfortable with the plan vitals noted nad heent nc at mmm breathing unlabored no accessory muscles good effort skin no rashes no pallor or icterus neuro no new deficits MS - denied rehab.home, home support, outpt PT, neuro and PCP f/u. otherwise as above Resident Activity Tracking Resident Involvement: Resident Care Provided Care Provided: Adult Hospital Medicine
--- NOTE | 2022-05-13 13:04 | Billing Data ---
Date of Service May 13, 2022 Coding Level of Care Code 30310 IN/OBS DISCH 30 MIN/LESS
[2022-05-14] MEDS: APIXABAN 5 MG TABLET PO SCH (08:19)
[2022-05-14] MEDS: CHOLECALCIFEROL 5,000 UNITS 125 MCG TAB PO SCH (08:19)
[2022-05-14] MEDS: CINACALCET HCL 30 MG TAB PO SCH (08:19)
[2022-05-14] MEDS: FLUoxetine HCL 20 MG CAP PO SCH (08:19)
--- NOTE | 2022-05-14 09:23 | Hospitalist Progress Note ---
Date of Service May 14, 2022 Assessment & Plan (1) Weakness: Plan: 45 year old male w/ multiple sclerosis, primary hyperparathyroidism, chronic DVT, stool incontinence presenting with progressive weakness. Weakness: - Multiple previous admissions for similar complaint, last one in April. Did not go to rehab at that time. - Inability to care for himself due to significant physical limitations from multiple sclerosis. - Weakness secondary to MS, has not been on an MS medication in some time. - PT/OT recommend SNF. * Insurance denied request for SNF placement on the basis that patient was currently at clinical baseline. Spoke with medical terminologist, Dr. Perez, who reiterated the same. He mentioned 3 possible alternatives: Returning home with additional home health therapy, a stay in an assisted living facility, and a short-term LTC stay with intermittent therapy. Explained to medical terminologist of plan to schedule patient for close follow-up with neurology which necessitated SNF for optimal conditioning. Opted to set up additional home therapy covered by insurance. This is completely assessed successfully by case management and patient was prepped for discharge. Multiple Sclerosis: -Chronic, w/ Left LE weakness since 2009, wheelchair bound -Followed with [facility] neurology, last seen 2018. Patient had inpatient [facility] neuro consult early Apr 2021; plan at that time was outpatient f/u to discuss Ocrevus. Has had good success with Ocrevus in the past but has not been on it for some time. -Last MRI in 09/2021 unchanged from previous scan. -Lower suspicion for emergent pathology such as cauda equina at this time. will hold off on repeat MRI or steroid treatment -Will discuss w/ care giver for assistance in helping patient arrange f/u w/ neuro w/ [facility]. Patient's transportation service will only cover trips to providers within [facility], eliminating [facility] as an option despite established multiple sclerosis practice. -Messaged Dr. Fabrice Polanco directly regarding scheduling patient for earlier outpatient follow-up, as opposed to waiting until November, which is earliest outpatient appointment time . Expect outpatient follow-up in a few weeks to 1 month at [facility]. Primary hyperparathyroidism: -Chronic. PTH 184.7 in 04/2021, persistent elevation since 2017 -Continue home cinacalcet -Vit D borderline low at 25.2. assess 5000IU daily Vit d supplement compliance; increase if needed. CKD: -Stage 2. Cr baseline of 1.1. downtrending, latest 1.24. Stool Incontinence: -Likely secondary to neurologic dysfunction from multiple sclerosis, chronic. Chronic DVT LLE: -Continue home Eliquis. (2) Multiple sclerosis: (3) Primary hyperparathyroidism: (4) CKD (chronic kidney disease): (5) Stool incontinence: (6) Chronic deep vein thrombosis (DVT) of distal vein of left lower extremity: Admission and Anticipated Discharge Date Admission Date: May 01, 2022 Supervising Physician Co-Signing Physician Notes I personally examined the patient and verified all toribio points of history and exam, discussed case, and agree with decision making with Dr Jain for home today - could not get ride yesterday vitals noted nad heent nc at mmm breathing unlabored no accessory muscles good effort skin no rashes no pallor or icterus neuro no new deficits MS - denied rehab.home, home support, outpt PT, neuro and PCP f/u. otherwise as above Subjective No acute events overnight. Patient's agitation unable to pick him up yesterday so he stayed overnight. Denies acute complaints today. Review of Systems Review of Systems: All systems reviewed & are unremarkable except as noted in HPI & below Physical Exam Physical Exam: General: No acute distress HEENT: PERRLA. Normal conjunctiva, anicteric sclera. Oropharynx normal. Respiratory: Normal respiratory effort, CTABL. Cardiovascular: RRR without murmurs, gallops, or rubs. No edema. GI: Soft abdomen with normal bowel sounds heard on auscultation. Nontender x4 quadrants Neuro: Alert and 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 Results & Data Results & Data ([facility]) Vital Signs (Past 12 Hours) Vital Signs Temp Pulse Resp BP Pulse Ox O2 Del Method 05/14/22 08:19 Room Air 05/14/22 07:28 36.4 C L 70 18 125/78 95 Room Air
[2022-05-14] MEDS: ACETAMINOPHEN 500 MG TAB PO PRN (11:40)
--- NOTE | 2022-05-14 18:50 | Billing Data ---
Date of Service May 14, 2022 Coding Level of Care Code 04606 SUB INP/OBS CARE
--- NOTE | 2022-05-14 18:50 | Billing Data ---
Date of Service May 14, 2022 Coding Level of Care Code 69351 SUB INP/OBS CARE
== END 2022-05-14 12:15 | disposition home health service (06) | DRG 59 ==
LOC: ED 13:25 → SUATTDRO 20:08 → 3N 20:08

== ENCOUNTER 2022-10-02 12:02 | Inpatient (IN) ==
--- NOTE | 2022-10-02 12:33 | Emergency Department Note ---
ED Provider Note History of Present Illness Chief Complaint: Weakness Stated Complaint: Weakness Time Seen by Provider: 10/02/22 12:21 This patient is a 46-year-old male who presents to the emergency department for evaluation of right-sided weakness. Patient states that he has a history of MS and has chronic weakness of the left side, however today is having weakness of the right side which is new for him. He states this has been ongoing for 3 days. He fell while going to the bathroom today and had a hard time getting up. He reports diffuse numbness and tingling which is not unusual for him. He denies striking his head, loss of consciousness or headache. He does state that he has not slept over the past 3 days due to financial stress. He reports pain in the right ankle due to the fall. Patient currently is not taking any treatment for MS. Home Medications Medication Instructions Recorded Confirmed Type tizanidine 2 mg tablet 2 mg PO DAILY PRN muscle spasms 09/29/21 10/02/22 History apixaban 5 mg tablet (Eliquis) 5 mg PO BID 10/05/21 10/02/22 History cinacalcet 30 mg tablet 30 mg PO BID 04/07/22 10/02/22 History fluoxetine 20 mg capsule 20 mg PO DAILY 04/07/22 10/02/22 History Allergies Allergy/AdvReac Type Severity Reaction Status Date / Time aspirin Allergy Severe airway Verified 10/02/22 15:46 edema; hives Past Med/Surg History Medical History Chronic pain syndrome CKD (chronic kidney disease) Depression H/O poor personal hygiene Hypercalcemia Hyperparathyroidism Left leg pain Multiple sclerosis Multiple sclerosis exacerbation Obstructive uropathy 2/2 renal stone, caused RUBI, pt admitted for this and hypercalcemia 05/2018 Osteoporosis Primary hyperparathyroidism Seizure disorder Many years ago may have had single episode, pt was never treated for this, no reoccurrence. Weakness Surgical History History of cystoscopy WITH STENT PLACEMENT 06/14/18 [facility] Family History Father Stroke Thyroid disorder Other Hypertension Kidney stones Social History Smoking Status: Never smoker Tobacco Type: Smokeless Tobacco (Dip or Chew) Cigarettes Per Day: 0; Second Hand Exposure: No; Do You Dip or Chew Tobacco: Yes; Hx Alcohol Use: Yes Alcohol type: beer Hx Substance Use: No Preferred Language: Palauan Communication Ability: Effective Axle Inspector Required: No Beliefs That Will Affect Care: None marital status: Current Living Situation: Family Current Living Situation Comment: father and uncle current occupational status: disabled How many Children do You have: 2 Feels Safe at Home: Yes Safety Concerns: Feels Safe At This Time Assistive Devices: Brace/Splint/Immobilizer and Wheelchair Physical Exam Vital Signs Vital Signs - 24 hr 10/02/22 12:31 10/02/22 12:45 10/02/22 13:54 Temperature 36.6 C Temperature Source Oral Pulse Rate 84 78 Pulse Rate [Apical] Respiratory Rate 16 Respiratory Effort / Characteristics Non-Labored Spontaneous Respiratory Depth Normal Blood Pressure 127/92 Blood Pressure [Right Arm] Blood Pressure Mean 103 Blood Pressure Mean [Right Arm] Blood Pressure Position Lying Blood Pressure Position [Right Arm] Pulse Oximetry 96 96 Oxygen Delivery Method Room Air Room Air Oxygen Flow Rate 0 Sepsis Recent Fever Within 48 Hours No Sepsis New/Unexplained Change in Mental Status No Sepsis Action Taken by Nursing No Action Required 10/02/22 14:35 Temperature Temperature Source Pulse Rate Pulse Rate [Apical] 71 Respiratory Rate 18 Respiratory Effort / Characteristics Respiratory Depth Blood Pressure Blood Pressure [Right Arm] 145/89 H Blood Pressure Mean Blood Pressure Mean [Right Arm] 107 Blood Pressure Position Blood Pressure Position [Right Arm] Semi-fowlers Pulse Oximetry 98 Oxygen Delivery Method Room Air Oxygen Flow Rate Sepsis Recent Fever Within 48 Hours Sepsis New/Unexplained Change in Mental Status Sepsis Action Taken by Nursing VITALS: Vitals are noted on the nurse's note and reviewed by myself. GENERAL: This is a 46-year-old male, in no acute distress, well-developed well- nourished. SKIN: The skin was without rashes. EYES: Pupils equal round and reactive to light and accommodation. MOUTH: Mucous membranes moist. NECK: Supple without nuchal rigidity. HEART: Regular rate and rhythm without murmurs gallops or rubs. LUNGS: Clear to auscultation bilaterally without wheezes, rales or rhonchi. ABDOMEN: Positive bowel sounds x 4. Soft, nontender to palpation. MUSCULOSKELETAL: Patient unable to perform range of motion of the left lower extremity. Right lower extremity range of motion is intact, 4/5 strength. NEURO: Patient was alert and oriented to person place and time. Distal sensation intact. Course Administered Medications Apixaban (Apixaban 5 Mg Tablet) 5 mg PO BID [facility] Stop: 11/01/22 20:59 Last Admin: 10/02/22 20:41 Dose: 5 mg Documented By: BRITT Cinacalcet (Cinacalcet Hcl 30 Mg Tab) 30 mg PO BIDM MANJINDER Stop: 11/01/22 16:59 Last Admin: 10/02/22 20:31 Dose: 30 mg Documented By: BRITT Hydromorphone HCl (Hydromorphone Inj 0.5 Mg/0.5 Ml Syr) 0.5 mg IV Q3H PRN PRN Reason: Moderate Pain (4,5,6) on NRS Stop: 10/16/22 15:05 Last Admin: 10/02/22 17:21 Dose: 0.5 mg Documented By: COLEEN Sodium Chloride (Nss 1000ml) 1,000 mls @ 80 mls/hr IV .[id number] MANJINDER Stop: 11/01/22 15:14 Last Admin: 10/02/22 15:47 Dose: 80 mls/hr Documented By: RAE Discontinued Medications Gadobutrol (Gadobutrol 65ml Vial) 8.5 ml IV ONCE ONE Stop: 10/02/22 19:06 Last Admin: 10/02/22 19:09 Dose: 8.5 ml Documented By: BRANDEN Sodium Chloride (Nss 1000ml) 1,000 mls @ 999 mls/hr IV .[id number] ONE Stop: 10/02/22 14:51 Last Infusion: 10/02/22 15:12 Dose: 0 mls/hr Documented By: Admin: 10/02/22 13:59 Dose: 999 mls/hr Documented By: Zoledronic Acid 4 mg/ Sodium (Chloride) 105 mls @ 210 mls/hr IV ONE ONE Stop: 10/02/22 15:59 Last Infusion: 10/02/22 16:23 Dose: 0 mls/hr Documented By: Admin: 10/02/22 15:47 Dose: 210 mls/hr Documented By: RAE Medical Decision Making Differential Diagnosis Infection, dehydration, metabolic abnormality, hypo/hyperglycemia, electrolyte disturbance, anemia, hypoxia, cardiac sources, intracerebral event, toxicologic, neurologic, as well as other pathologies. Home Medications was personally reviewed by me Laboratory Data Attestation: I reviewed the patient's lab results. 10/02/22 12:27 10/02/22 12:27 Lab Results 10/02/22 10/02/22 10/02/22 Range/Units 12:27 12:27 14:02 WBC 7.91 (4.8-10.8) K/ul RBC 5.35 (4.70-6.10) M/uL Hgb 17.0 (14.0-18.0) g/dl Hct 49.5 (42.0-52.0) % MCV 92.5 (80.0-100.0) fL MCH 31.8 (25.0-34.0) pg MCHC 34.3 (32.0-36.0) g/dL RDW Std Deviation 40.7 (36.4-46.3) fL RDW Coeff of Bret 11.9 (11.5-14.5) % Plt Count 216 (130-400) K/uL MPV 10.5 (9.4-12.4) fL Immature Gran % (Auto) 0.5 % Neut % (Auto) 80.8 % Lymph % (Auto) 10.5 % Wallace % (Auto) 7.2 % Eos % (Auto) 0.5 % Baso % (Auto) 0.5 % Neut # (Auto) 6.39 (1.40-6.50) K/uL Lymph # (Auto) 0.83 L (1.2-3.4) K/uL Wallace # (Auto) 0.57 (0.11-0.59) K/uL Eos # (Auto) 0.04 (0-0.50) K/uL Baso # (Auto) 0.04 (0-0.2) K/uL Immature Gran # (Auto) 0.04 (0.01-0.20) K/uL Sodium 139 (136-145) mmol/L Potassium 4.3 (3.5-5.1) mmol/L Chloride 109 H (98-107) mmol/L Carbon Dioxide 25 (21-32) mmol/L Anion Gap 5 (3-11) BUN 18 (6-23) mg/dl Creatinine 1.34 (0.6-1.4) mg/dl Est Cr Clr Drug Dosing 78.4 ml/min Est GFR ( Amer) 72.1 ml/min Est GFR (Non-Af Amer) 62.2 ml/min BUN/Creatinine Ratio 13.4 (10-20) Glucose 94 (70-99(Fasting)) mg/dl Calcium 12.2 H* (8.6-10.3) mg/dl Phosphorus (2.5-4.9) mg/dl Magnesium 2.1 (1.7-2.4) mg/dl Total Bilirubin 0.6 (0.2-1.0) mg/dl AST 16 (13-39) U/L ALT 21 (7-52) U/L Alkaline Phosphatase 71 (34-104) U/L Total Protein 7.4 (6.0-8.3) gm/dl Albumin 4.5 (3.4-5.0) gm/dl Globulin 2.9 (2.5-4.0) gm/dl Albumin/Globulin Ratio 1.6 (0.9-2) PTH Intact (12.0-88.0) pg/ml Urine Color Yellow Urine Appearance Clear (Clear) Urine pH 6.5 (4.5-7.5) Ur Specific [place] 1.016 (1.000-1.030) Urine Protein 1+ H (Negative) Urine Glucose (UA) Negative (Negative) Urine Ketones 1+ H (Negative) Urine Blood 3+ H (Negative) Urine Nitrite Negative (Negative) Urine Bilirubin Negative (Negative) Urine Urobilinogen Negative (Negative) Ur Leukocyte Esterase 1+ H (Negative) Urine WBC (Auto) 10-30 H (0-5) /hpf Urine RBC (Auto) >30 H (0-4) /hpf U Hyaline Cast (Auto) 1-5 (0-5) /lpf U Epithel Cells (Auto) 20-30 H (0-5) /lpf Urine Bacteria (Auto) Negative (Negative) Urine Crystals Not Reportable Other Crystals Talc (None Prsent) Urine Mucus Present A (None Prsent) 10/02/22 10/02/22 Range/Units 14:12 14:12 WBC (4.8-10.8) K/ul RBC (4.70-6.10) M/uL Hgb (14.0-18.0) g/dl Hct (42.0-52.0) % MCV (80.0-100.0) fL MCH (25.0-34.0) pg MCHC (32.0-36.0) g/dL RDW Std Deviation (36.4-46.3) fL RDW Coeff of Bret (11.5-14.5) % Plt Count (130-400) K/uL MPV (9.4-12.4) fL Immature Gran % (Auto) % Neut % (Auto) % Lymph % (Auto) % Wallace % (Auto) % Eos % (Auto) % Baso % (Auto) % Neut # (Auto) (1.40-6.50) K/uL Lymph # (Auto) (1.2-3.4) K/uL Wallace # (Auto) (0.11-0.59) K/uL Eos # (Auto) (0-0.50) K/uL Baso # (Auto) (0-0.2) K/uL Immature Gran # (Auto) (0.01-0.20) K/uL Sodium (136-145) mmol/L Potassium (3.5-5.1) mmol/L Chloride (98-107) mmol/L Carbon Dioxide (21-32) mmol/L Anion Gap (3-11) BUN (6-23) mg/dl Creatinine (0.6-1.4) mg/dl Est Cr Clr Drug Dosing ml/min Est GFR ( Amer) ml/min Est GFR (Non-Af Amer) ml/min BUN/Creatinine Ratio (10-20) Glucose (70-99(Fasting)) mg/dl Calcium (8.6-10.3) mg/dl Phosphorus 1.4 L* (2.5-4.9) mg/dl Magnesium (1.7-2.4) mg/dl Total Bilirubin (0.2-1.0) mg/dl AST (13-39) U/L ALT (7-52) U/L Alkaline Phosphatase (34-104) U/L Total Protein (6.0-8.3) gm/dl Albumin (3.4-5.0) gm/dl Globulin (2.5-4.0) gm/dl Albumin/Globulin Ratio (0.9-2) PTH Intact 212.3 H (12.0-88.0) pg/ml Urine Color Urine Appearance (Clear) Urine pH (4.5-7.5) Ur Specific [place] (1.000-1.030) Urine Protein (Negative) Urine Glucose (UA) (Negative) Urine Ketones (Negative) Urine Blood (Negative) Urine Nitrite (Negative) Urine Bilirubin (Negative) Urine Urobilinogen (Negative) Ur Leukocyte Esterase (Negative) Urine WBC (Auto) (0-5) /hpf Urine RBC (Auto) (0-4) /hpf U Hyaline Cast (Auto) (0-5) /lpf U Epithel Cells (Auto) (0-5) /lpf Urine Bacteria (Auto) (Negative) Urine Crystals Other Crystals (None Prsent) Urine Mucus (None Prsent) Imaging Data Attestation: I personally reviewed and interpreted this imaging study as follows: Radiologist's Impression: Ankle X-Ray 10/02/22 12:37 XR ankle RT min 3V routine CLINICAL HISTORY: right ankle injury, fall COMPARISON: None FINDINGS: Alignment of the right ankle is anatomic. There is no acute fracture. Talar dome is intact. There is no osseous lesion. IMPRESSION: No acute fracture or dislocation within the right ankle. ACT 112: Negative or not required by law. Electronically signed by: Vinh Varela M.D. 10/02/2022 12:58 PM Chest X-Ray 10/02/22 12:37 SINGLE VIEW CHEST CLINICAL HISTORY: Generalized weakness. FINDINGS: An AP, portable, upright chest radiograph is compared to study dated 05/01/2022. The cardiomediastinal silhouette is unremarkable. The lungs and pleural spaces are clear. No pneumothorax is seen. The bony thorax is grossly intact. IMPRESSION: No active disease in the chest. ACT 112: Negative or not required by law. Electronically signed by: Eris Guallpa M.D. 10/02/2022 12:51 PM Brain MRI 10/02/22 15:06 Exam(s): MRI HEAD W/WO Contrast IV Amt: 8.5mL Gadavist given IV EXAM: MR Head Without and With Intravenous Contrast CLINICAL HISTORY: Reason for exam: weakness, hx MS. TECHNIQUE: Magnetic resonance images of the head/brain without and with intravenous contrast in multiple planes. CONTRAST: Patient received 8.5mL Gadavist given IV of IV contrast COMPARISON: 10/07/21 FINDINGS: Brain: redemonstration of diffuse bilateral subcortical, callosal, pericallosal, periventricular and brainstem lesions as before. No enhancing lesions noted to suggest active disease/active plaque. No midline shift. Ventricles: No hydrocephalus. Bones/joints: Unremarkable. Sinuses: Unremarkable as visualized. No acute sinusitis. Mastoid air cells: Unremarkable as visualized. No mastoid effusion. Orbits: Unremarkable as visualized. IMPRESSION: Redemonstration of diffuse bilateral subcortical, callosal, pericallosal, periventricular and brainstem lesions as before. No enhancing lesions noted to suggest active disease/active plaque. Electronically signed by: Solis Gar M.D. 10/02/22 19:53 PM Cervical Spine MRI 10/02/22 15:06 Exam(s): MRI C SPINE IV Amt: 8.5mL Gadavist given IV EXAM: MR Cervical Spine With Intravenous Contrast CLINICAL HISTORY: Reason for exam: weakness, hx MS. TECHNIQUE: Magnetic resonance images of the cervical spine with intravenous contrast in multiple planes. CONTRAST: Patient received 8.5mL Gadavist given IV of IV contrast COMPARISON: 10/07/21 FINDINGS: Vertebrae: Mild multilevel cervical spondylosis and ligamentum flavum thickening. Spinal cord: No enhancing cord lesions to suggest active disease. Soft tissues: Unremarkable. Vasculature: Nonenhancing intracranial plaques/lesions. IMPRESSION: No enhancing cord lesions to suggest active disease. Electronically signed by: Solis Gar M.D. 10/02/22 19:58 PM ECG Data Attestation: I personally reviewed and interpreted this ECG as follows: Indication: + weakness Rate (beats per minute): 79 Rhythm: + sinus with SA ECG Intervals/blocks: + Normal QRS ECG ST segments: + Normal ST segments Change: no significant change MDM Narrative Continuous equipment monitor phototypesetting: Order was placed for continuous equipment monitor phototypesetting. Patient was placed on the equipment monitor phototypesetting. Patient was noted to be in normal sinus rhythm at an initial rate of 65 bpm. The patient is a 46-year-old male who presents today complaining of increasing right-sided weakness. Patient has history of MS with chronic left-sided wea kness, however the right-sided weakness is new for him. Labs revealed hypercalcemia with a calcium of 12.2 which may be causing the patient's weakness. Does have a history of hyperparathyroidism. He was hydrated with a liter of normal saline. Case was then discussed with the [facility] service, who agreed to evaluate the patient for further care Impression Generalized weakness, Hypercalcemia Discharge Plan Visit Data Chief Complaint: Weakness Stated Complaint: Weakness ED Provider: Ashwin Gentile ED Midlevel Provider: Beverly Oro Discharge Problem: Generalized weakness, Hypercalcemia Patient Disposition: Admitted As Inpatient Discharge Instructions Interventions: ED Discharge Assessment Last Done: 10/02/22 16:27
--- NOTE | 2022-10-02 12:52 | XRay Report ---
SINGLE VIEW CHEST CLINICAL HISTORY: Generalized weakness. FINDINGS: An AP, portable, upright chest radiograph is compared to study dated 05/01/2022. The cardiome diastinal silhouette is unremarkable. The lungs and pleural spaces are clear. No pneumothorax is seen . The bony thorax is grossly intact. IMPRESSION: No active disease in the chest. ACT 112: Negative or not required by law. Electronically signed by: Eris Guallpa M.D. 10/02/2022 12:51 PM
--- NOTE | 2022-10-02 12:59 | XRay Report ---
XR ankle RT min 3V routine CLINICAL HISTORY: right ankle injury, fall COMPARISON: None FINDINGS: Alignment of the right ankle is anatomic. There is no acute fracture. Talar dome is intact . There is no osseous lesion. IMPRESSION: No acute fracture or dislocation within the right ankle. ACT 112: Negative or not required by law. Electronically signed by: Vinh Varela M.D. 10/02/2022 12:58 PM
[2022-10-02 13:15] LABS: Basophils # (auto) 0.04 K/uL (0-0.2); Basophils % (auto) 0.5 %; Eosinophils # (auto) 0.04 K/uL (0-0.50); Eosinophils % (auto) 0.5 %; Hematocrit (blood only) 49.5 % (42.0-52.0); Immature Granulocytes # (auto) 0.04 K/uL (0.01-0.20); Immature Granulocytes % (auto) 0.5 %; Lymphocytes # (auto) 0.83 K/uL (1.2-3.4); Lymphocytes % (auto) 10.5 %; Mean Corpuscular Hemoglobin 31.8 pg (25.0-34.0); Mean Corpuscular Hgb Conc 34.3 g/dL (32.0-36.0); Mean Corpuscular Volume 92.5 fL (80.0-100.0); Mean Platelet Volume 10.5 fL (9.4-12.4); Monocytes # (auto) 0.57 K/uL (0.11-0.59); Monocytes % (auto) 7.2 %; Neutrophils # (auto) 6.39 K/uL (1.40-6.50); Neutrophils % (auto) 80.8 %; Platelet Count 216 K/uL (130-400); RDW Coefficient of Variation 11.9 % (11.5-14.5); RDW Standard Deviation 40.7 fL (36.4-46.3); Red Blood Count 5.35 M/uL (4.70-6.10); White Blood Count 7.91 K/ul (4.8-10.8)
[2022-10-02 13:30] LABS: Albumin Globulin Ratio 1.6 (0.9-2); Albumin Level 4.5 gm/dl (3.4-5.0); BUN Creatinine Ratio 13.4 (10-20); Bilirubin,Total 0.6 mg/dl (0.2-1.0); Calcium 12.2 mg/dl (8.6-10.3); Creatinine Clr Calc Pharmacy 78.4 ml/min; Est GFR (African American) 72.1 ml/min; Est GFR (Non-African American) 62.2 ml/min; Globulin 2.9 gm/dl (2.5-4.0); Magnesium 2.1 mg/dl (1.7-2.4); Potassium 4.3 mmol/L (3.5-5.1); Total Protein 7.4 gm/dl (6.0-8.3)
[2022-10-02] MEDS ORDERED: SODIUM CHLORIDE 0.9% 1000ML 1,000 ML IV ONE (13:51)
--- NOTE | 2022-10-02 14:46 | History & Physical Report ---
Date of Service October 02, 2022 Assessment & Plan (1) Weakness: Plan: Weakness, acute R sided suspect due to MS flare DDx includes hypercalcemia MRI pending - No headache, dysarthria, aphasia. Defer CT due to similar to prior sx, onset >24 hours, and risk of cumulative CTs for recurrent flares. Steroids pending MRI results If MRI consistent with MS flare, start 1 g Methylpred IV daily x3 days for induction, and follow-up with Medrol Dosepak taper. Discussed with neurology, formal consult deferred. If MRI is normal/unchanged then symptoms may be due to his hyper calcemia. We will treat this primarily and defer steroids to see if he clinically improves c alcium treatment, if he does recommend he follow-up more urgently for parathyroidectomy/definitive management Hypercalcemia Patient was pending parathyroidectomy during COVID, was lost to follow-up due to pandemic We will need rescheduled follow-up with ENT/surgical Endo at [facility] for this Is relatively euvolemic on admission, calcium is 12.2 despite taking his Cinacalcet as directed Continue vitamin D supplementation, repeat levels pending Patient reports he thinks he may have been on a bisphosphonate once in the past, has not been on this recently Will add Zometa 4 mg x 1 Continue IV FM overnight Trend for stability Renal function is normal, admitting creatinine 1.34 History of DVT Continue Eliquis Diet: Regular Disposition: Medical telemetry CODE STATUS: Full code DVT prophylaxis: Anticoagulated for history of DVT (2) Generalized weakness: (3) Demyelinating disease: (4) DVT (deep venous thrombosis): (5) Primary hyperparathyroidism: History of Present Illness Primary Care Provider: Louis Hale Acute R weakness since he woke up this morning, notice d alittle last 2 days but much worse today. Slightly numb, but mostly just weakness. Lower back and R foot throb and are painful. Low back pain is chronic and unchanged No fevers, chills or sweats No chest pain or chest pressure Intermittent headache chronically, none at admit Blurry vision which is worse than usual today, is intermittent and commonw ith his MS since 2009. Left side is chronically ', nostrength never changes.' QUalitative feeling of delayed sensationin L side, feels soft and sharp touch but feelslike it is slightly delayed and has been told this is common with MS. Is not currently on any treatment for MS. Follows with [facility] DR. Graf at [facility]. Has not been on seroidsin a few months. Calcium due to hyperparathyroid. Taking cinacalcet, reports he has been taking medications relabiliy, misses maybe one a week or every other. Has not seen anyone for it recently, hasn't been able to followup. Was originally going to see [facility] Dr. Romano for parathyroidectomy with ENT but this was lost due to covid pandemic and never rescheduled. Eating and dirnking OK last few days. No nausea/vomiting. +Chronic diarrhea and intermittent constipation. Takes eliquis 5mg PO BID for history of LE DVT, several years ago but continued for chronic risk Medical History: Reviewed Medications: Reviewed Surgical History: Reviewed Family history: Reviewed Allergies: Reviewed Social History: Snuff. Rare social etoh. Rare marijuana, none in years. Code Status: Full Code Allergies Allergy/AdvReac Type Severity Reaction Status Date / Time aspirin Allergy Severe airway Verified 07/24/22 08:24 edema; hives Home Medications Medication Instructions Recorded Confirmed Type tizanidine 2 mg tablet 2 mg PO DAILY PRN muscle spasms 09/29/21 09/08/22 History apixaban 5 mg tablet (Eliquis) 5 mg PO BID 10/05/21 09/08/22 History cinacalcet 30 mg tablet 30 mg PO BID 04/07/22 09/08/22 History fluoxetine 20 mg capsule 20 mg PO DAILY 04/07/22 09/08/22 History cholecalciferol (vitamin D3) 1,250 1,250 mcg PO MO 09/08/22 09/08/22 History mcg (50,000 unit) capsule Past Med/Surg History Medical History Chronic pain syndrome CKD (chronic kidney disease) Depression H/O poor personal hygiene Hypercalcemia Hyperparathyroidism Left leg pain Multiple sclerosis Multiple sclerosis exacerbation Obstructive uropathy 2/2 renal stone, caused RUBI, pt admitted for this and hypercalcemia 05/2018 Osteoporosis Primary hyperparathyroidism Seizure disorder Many years ago may have had single episode, pt was never treated for this, no reoccurrence. Weakness Surgical History History of cystoscopy WITH STENT PLACEMENT 06/14/18 [facility] Family History Father Stroke Thyroid disorder Other Hypertension Kidney stones Social History Smoking Status: Never smoker Tobacco Type: Smokeless Tobacco (Dip or Chew) Cigarettes Per Day: 0; Second Hand Exposure: No; Do You Dip or Chew Tobacco: Yes; Hx Alcohol Use: Yes Alcohol type: beer Hx Substance Use: Yes Last Used Substance: Unknown Last Used Substance Other:: Patient stated he quit months ago. Too expensive. Preferred Language: Prydeinig Communication Ability: Effective Cooking Chef Required: No Beliefs That Will Affect Care: None marital status: Current Living Situation: Parent Current Living Situation Comment: Patient states he must do all of his own self care current occupational status: disabled How many Children do You have: 2 Feels Safe at Home: Yes Assistive Devices: Hospital Bed and Wheelchair Review of Systems Review of Systems: All systems reviewed & are unremarkable except as noted in HPI & below Physical Exam Physical Exam: General: A&Ox3. NAD. Cooperative. HEENT: Atraumatic, normocephalic. Vision/hearing grossly intact although vision is blurry per patient. Pulm: CTAB A&P. -wheezes, -rales, -rhonchi. Symmetrical chest rise. No increased work of breathing. No respiratory distress. Cardiac: RRR, -mrg. Radial pulses intact and symmetrical. Abdominal: Nontender, nondistended, soft. BS present. Extremities: Minimal activation of finger flexion/elbow flexion/hip flexion/ankle dorsiflexion/plantarflexion on left side. Sensation intact to soft touch in left arm and leg, but endorses he gets feeling at a delay. No tenderness. 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 Patient is tender to palpation at the medial malleolus. No crepitus, no laceration, no swelling or edema. Results & Data Results & Data Vital Signs (Past 12 Hours) Vital Signs Temp Pulse Pulse Resp BP BP Pulse Ox 10/02/22 14:35 71 18 145/89 H 98 10/02/22 13:54 78 08/03/23 12:45 96 10/02/22 12:31 36.6 C 84 16 127/92 96 O2 Del Method O2 Flow Rate 10/02/22 14:35 Room Air 10/02/22 13:54 10/02/22 12:45 Room Air 0 10/02/22 12:31 Room Air PG Care Time/CCT Total # of Minutes Spent Total Time Spent with Patient: Total time spent is greater than 50% in coordination of care (as documented) at patient's floor/unit and/or counseling patient: Coding Level of Care Code 07374 INT INP/OBS CARE 3/75MIN Diagnoses Weakness R53.1 Generalized weakness R53.1 Demyelinating disease G37.9 DVT (deep venous thrombosis) I82.502 Affected thrombotic vein of extremity: unspecified vein of extremity Chronicity: chronic DVT location: lower extremity Laterality: left Primary hyperparathyroidism E21.0 (4) DVT (deep venous thrombosis) Affected thrombotic vein of extremity: unspecified vein of extremity Chronicity: chronic DVT location: lower extremity Laterality: left Qualified Code(s): I82.502 - Chronic embolism and thrombosis of unspecified deep veins of left lower extremity
[2022-10-02 14:59] LABS: Appearance Urine Clear (Clear); Bacteria Urine Automated Negative (Negative); Bilirubin Urine Negative (Negative); Blood Urine 3+ (Negative); Color Urine Yellow; Epithelial Cell Urine Auto 20-30 /lpf (0-5); Glucose Urine UA Negative (Negative); Ketones Urine 1+ (Negative); Leukocyte Esterase Urine 1+ (Negative); Nitrite Urine Negative (Negative); Protein Urine 1+ (Negative); RBC Urine Automated >30 /hpf (0-4); Specific Gravity Urine 1.016 (1.000-1.030); Urobilinogen Urine Negative (Negative); pH Urine 6.5 (4.5-7.5)
[2022-10-02] MEDS ORDERED: ACETAMINOPHEN 325 MG TAB PO PRN (15:06)
[2022-10-02 15:26] LABS: Mucus Urine Present (None Prsent)
[2022-10-02] MEDS ORDERED: ZOLEDRONIC ACID 4 MG in 0.9 % SODIUM CHLORIDE 100 ML IV ONE (15:30)
[2022-10-02] MEDS: SODIUM CHLORIDE 0.9% 1000ML 1,000 ML IV SCH (15:47)
[2022-10-02] MEDS ORDERED: tiZANidine HCL 4 MG TABLET PO PRN (16:56)
[2022-10-02] MEDS: HYDROmorphone INJ 0.5 MG/0.5 ML SYR IV PRN (17:21)
[2022-10-02] MEDS ORDERED: GADOBUTROL 65ML VIAL IV ONE (19:05)
--- NOTE | 2022-10-02 19:55 | Magnetic Resonance Report ---
Exam(s): MRI HEAD W/WO Contrast IV Amt: 8.5mL Gadavist given IV EXAM: MR Head Without and With Intravenous Contrast CLINICAL HISTORY: Reason for exam: weakness, hx MS. TECHNIQUE: Magnetic resonance images of the head/brain without and with intravenous contrast in multiple planes. CONTRAST: Patient received 8.5mL Gadavist given IV of IV contrast COMPARISON: 10/07/21 FINDINGS: Brain: redemonstration of diffuse bilateral subcortical, callosal, pericallosal, periventricular and brainstem lesions as before. No enhancing lesions noted to suggest active disease/active plaque. No midline shift. Ventricles: No hydrocephalus. Bones/joints: Unremarkable. Sinuses: Unremarkable as visualized. No acute sinusitis. Mastoid air cells: Unremarkable as visualized. No mastoid effusion. Orbits: Unremarkable as visualized. IMPRESSION: Redemonstration of diffuse bilateral subcortical, callosal, pericallosal, periventricular and brainstem lesions as before. No enhancing lesions noted to suggest active disease/active plaque. Electronically signed by: Solis Gar M.D. 10/02/22 19:53 PM
--- NOTE | 2022-10-02 19:59 | Magnetic Resonance Report ---
Exam(s): MRI C SPINE IV Amt: 8.5mL Gadavist given IV EXAM: MR Cervical Spine With Intravenous Contrast CLINICAL HISTORY: Reason for exam: weakness, hx MS. TECHNIQUE: Magnetic resonance images of the cervical spine with intravenous contrast in multiple planes. CONTRAST: Patient received 8.5mL Gadavist given IV of IV contrast COMPARISON: 10/07/21 FINDINGS: Vertebrae: Mild multilevel cervical spondylosis and ligamentum flavum thickening. Spinal cord: No enhancing cord lesions to suggest active disease. Soft tissues: Unremarkable. Vasculature: Nonenhancing intracranial plaques/lesions. IMPRESSION: No enhancing cord lesions to suggest active disease. Electronically signed by: Solis aGr M.D. 10/02/22 19:58 PM
[2022-10-02] MEDS: CINACALCET HCL 30 MG TAB PO SCH (20:31)
[2022-10-02] MEDS: APIXABAN 5 MG TABLET PO SCH (20:41)
[2022-10-03] MEDS: SODIUM CHLORIDE 0.9% 1000ML 1,000 ML IV SCH ×4 (03:52→14:47)
[2022-10-03 07:28] LABS: Basophils # (auto) 0.03 K/uL (0-0.2); Basophils % (auto) 0.4 %; Eosinophils # (auto) 0.09 K/uL (0-0.50); Eosinophils % (auto) 1.3 %; Hematocrit (blood only) 42.7 % (42.0-52.0); Hemoglobin 14.7 g/dl (14.0-18.0); Immature Granulocytes # (auto) 0.03 K/uL (0.01-0.20); Immature Granulocytes % (auto) 0.4 %; Lymphocytes # (auto) 1.46 K/uL (1.2-3.4); Lymphocytes % (auto) 21.9 %; Mean Corpuscular Hemoglobin 31.7 pg (25.0-34.0); Mean Corpuscular Hgb Conc 34.4 g/dL (32.0-36.0); Mean Platelet Volume 10.7 fL (9.4-12.4); Monocytes # (auto) 0.63 K/uL (0.11-0.59); Monocytes % (auto) 9.4 %; Neutrophils # (auto) 4.44 K/uL (1.40-6.50); Neutrophils % (auto) 66.6 %; Platelet Count 176 K/uL (130-400); RDW Coefficient of Variation 12.1 % (11.5-14.5); RDW Standard Deviation 40.8 fL (36.4-46.3); Red Blood Count 4.64 M/uL (4.70-6.10); White Blood Count 6.68 K/ul (4.8-10.8)
[2022-10-03] MEDS: HYDROmorphone INJ 0.5 MG/0.5 ML SYR IV PRN (07:41)
[2022-10-03] MEDS: APIXABAN 5 MG TABLET PO SCH ×2 (07:42→20:45)
[2022-10-03] MEDS: FLUoxetine HCL 20 MG CAP PO SCH (07:42)
[2022-10-03] MEDS: CINACALCET HCL 30 MG TAB PO SCH ×2 (07:42→17:23)
[2022-10-03 08:04] LABS: Calcium 9.6 mg/dl (8.6-10.3); Creatinine Clr Calc Pharmacy 89.8 ml/min; Est GFR (African American) 84.9 ml/min; Est GFR (Non-African American) 73.3 ml/min; Magnesium 1.8 mg/dl (1.7-2.4); Phosphorus 1.6 mg/dl (2.5-4.9); Potassium 3.6 mmol/L (3.5-5.1)
--- NOTE | 2022-10-03 11:52 | Hospitalist Progress Note ---
Date of Service October 03, 2022 Assessment & Plan (1) Weakness: Plan: Patient presents with right-sided weakness, initially thought to be due to MS flareup However MRI C-spine and brain did not show any evidence of flareups or acute disease -Patient states his weakness is much improved this morning (2) Demyelinating disease: Plan: History of multiple sclerosis MRI brain did not show any evidence of acute disease (3) DVT (deep venous thrombosis): Plan: History of DVT Continue Eliquis (4) Primary hyperparathyroidism: Plan: Hypercalcemia Patient was pending parathyroidectomy during COVID, was lost to follow-up due to pandemic We will need rescheduled follow-up with ENT/surgical End[place] [facility] [place] this Is relatively euvolemic on admission, calcium is 12.2 despite taking his Cinacalcet as directed Continue vitamin D supplementation, -Repeat calcium is now within normal limits We will urged him to make his outpatient follow-up with ENT for parathyroidectomy (5) Right ankle strain: Plan: Patient said he sprained his right ankle. X-ray did not show any evidence of fracture However said he is unable to put weight on it Consult PT (6) Generalized weakness: Plan: Chronic left sided paresis However patient said his weakness worsened a couple of days prior to presentation No evidence of MS flareup Consult PT Plan Diet: Regular Disposition: Medical telemetry CODE STATUS: Full code DVT prophylaxis: Anticoagulated for history of DVT We will await evaluation by PT, patient may require SNF Admission and Anticipated Discharge Date Admission Date: October 02, 2022 Subjective Patient seen and examined today, still complains of weakness but his main concern is the right ankle pain, he states he cannot put his weight on it Review of Systems Review of Systems: All systems reviewed are negative, apart from the ones contained in the history. Physical Exam Physical Exam: The patient is awake, alert and oriented 3, well developed and well nourished, normocephalic and atraumatic, lying in bed and in no acute distress. HEENT--PERRL, EOMI, mucous membranes and oropharynx mildly dry Neck--supple. No JVD. No bruits. Thyroid normal, trachea midline, no adenopathy. Heart--normal S1 and S2. No murmurs, rubs or gallops. Lungs--clear bilaterally, no respiratory distress, no accessory muscle use. Abdomen--normal bowel sounds and soft. Mild epigastric and left sided abdominal pain Extremities--no cyanosis or clubbing. No edema. Dermatologic--normal skin turgor, normal color, no abnormal lymph nodes, no rash. Neurologic--left hemiparesis Rheumatologic--normal range of motion. Psychiatric--normal affect. Results & Data Results & Data Vital Signs (Past 12 Hours) Vital Signs Temp Pulse Resp BP Pulse Ox O2 Del Method 10/03/22 07:35 97.5 F L 64 18 115/73 97 Room Air PG Care Time/CCT Total # of Minutes Spent Total Time Spent with Patient: Total time spent is greater than 50% in coordination of care (as documented) at patient's floor/unit and/or counseling patient: Coding Level of Care Code 04179 SUB INP/OBS CARE 2/35MIN Diagnoses Weakness R53.1 Demyelinating disease G37.9 DVT (deep venous thrombosis) I82.502 Affected thrombotic vein of extremity: unspecified vein of extremity Chronicity: chronic DVT location: lower extremity Laterality: left Primary hyperparathyroidism E21.0 Right ankle strain S96.911A Generalized weakness R53.1 Time Spent (min) 35 (3) DVT (deep venous thrombosis) Affected thrombotic vein of extremity: unspecified vein of extremity Chronicity: chronic DVT location: lower extremity Laterality: left Qualified Code(s): I82.502 - Chronic embolism and thrombosis of unspecified deep veins of left lower extremity
[2022-10-03] MEDS: traMADol HCL 50 MG TABLET PO PRN ×2 (13:24→21:38)
--- NOTE | 2022-10-03 22:36 | Electrocardiogram Report ---
Test Reason : Blood Pressure : / mmHG Vent. Rate : 079 BPM Atrial Rate : 079 BPM P-R Int : 174 ms QRS Dur : 082 ms QT Int : 344 ms P-R-T Axes : 044 004 063 degrees QTc Int : 394 ms Normal sinus rhythm with sinus arrhythmia Cannot rule out Inferior infarct Normal ECG When compared with ECG of 01-MAY-2022 16:49, No significant change was found Confirmed by Avery Le ([id number]) on 10/03/2022 10:35:51 PM Referred By: REFERRED SELF Confirmed By:Avery Le
[2022-10-04] MEDS: SODIUM CHLORIDE 0.9% 1000ML 1,000 ML IV SCH ×2 (02:08→14:41)
[2022-10-04 06:06] LABS: Basophils # (auto) 0.05 K/uL (0-0.2); Basophils % (auto) 0.6 %; Eosinophils # (auto) 0.11 K/uL (0-0.50); Eosinophils % (auto) 1.2 %; Hematocrit (blood only) 40.6 % (42.0-52.0); Immature Granulocytes # (auto) 0.04 K/uL (0.01-0.20); Immature Granulocytes % (auto) 0.4 %; Lymphocytes # (auto) 1.87 K/uL (1.2-3.4); Lymphocytes % (auto) 20.9 %; Mean Corpuscular Hemoglobin 31.6 pg (25.0-34.0); Mean Corpuscular Hgb Conc 34.5 g/dL (32.0-36.0); Mean Corpuscular Volume 91.6 fL (80.0-100.0); Mean Platelet Volume 10.4 fL (9.4-12.4); Monocytes % (auto) 10.1 %; Neutrophils # (auto) 5.96 K/uL (1.40-6.50); Neutrophils % (auto) 66.8 %; Platelet Count 177 K/uL (130-400); RDW Coefficient of Variation 11.9 % (11.5-14.5); RDW Standard Deviation 40.2 fL (36.4-46.3); Red Blood Count 4.43 M/uL (4.70-6.10); White Blood Count 8.93 K/ul (4.8-10.8)
[2022-10-04 06:30] LABS: BUN Creatinine Ratio 9.8 (10-20); Calcium 8.4 mg/dl (8.6-10.3); Creatinine Clr Calc Pharmacy 85.4 ml/min; Potassium 3.7 mmol/L (3.5-5.1)
[2022-10-04] MEDS: APIXABAN 5 MG TABLET PO SCH ×2 (08:41→20:28)
[2022-10-04] MEDS: FLUoxetine HCL 20 MG CAP PO SCH (08:42)
[2022-10-04] MEDS: CINACALCET HCL 30 MG TAB PO SCH ×2 (08:42→16:54)
[2022-10-04 12:20] LABS: Phosphorus 1.7 mg/dl (2.5-4.9)
[2022-10-04] MEDS ORDERED: POTASSIUM PHOS 3 MMOL/1 ML INFUSION IV STA (14:38)
[2022-10-04] MEDS: HYDROmorphone INJ 0.5 MG/0.5 ML SYR IV PRN ×2 (14:43→20:29)
[2022-10-04] MEDS ORDERED: POTASSIUM PHOSPHATE 15 MMOL in SODIUM CHLORIDE 0.9% 250 ML IV ONE (15:15)
--- NOTE | 2022-10-04 17:03 | Hospitalist Progress Note ---
Date of Service October 04, 2022 Assessment & Plan (1) Weakness: Plan: Patient presents with right-sided weakness, initially thought to be due to MS flareup However MRI C-spine and brain did not show any evidence of flareups or acute disease -Patient states his weakness is much improved this morning, just concerned about his right ankle PT ordered (2) Demyelinating disease: Plan: History of multiple sclerosis MRI brain did not show any evidence of acute disease (3) DVT (deep venous thrombosis): Plan: History of DVT Continue Eliquis (4) Primary hyperparathyroidism: Plan: Hypercalcemia Patient was pending parathyroidectomy during COVID, was lost to follow-up due to pandemic We will need [place]ched[place] [facility] [place] Is relatively euvolemic on admission, calcium 12.2 despite taking his Cinacalcet as directed Continue vitamin D supplementation We will urged him to make his outpatient follow-up with ENT for parathyroidectomy -Ca actually low this morning - will continue monitoring (5) Right ankle strain: Plan: Patient said he sprained his right ankle. X-ray did not show any evidence of fracture However said he is unable to put weight on it Consult PT Ordered ankle brace (6) Generalized weakness: Plan: Chronic left sided paresis However patient said his weakness worsened a couple of days prior to presentation No evidence of MS flareup Consult PT (7) Hypophosphatemia: Plan: Monitor and replete as necessary Plan Diet: Regular Disposition: Medical telemetry CODE STATUS: Full code DVT prophylaxis: Anticoagulated for history of DVT We will await evaluation by PT, patient may require SNF Admission and Anticipated Discharge Date Admission Date: October 02, 2022 Subjective Main concern is right ankle discomfort. He is concerned with the pain in his right ankle that he was at risk for recurrent falls. He does not feel comfortable go home today. Reports his weakness has improved. Overall no other significant concerns this morning Physical Exam Physical Exam: General: Well-appearing, NAD Cardiovascular: RRR, no M/R/G Pulmonary: CTAB, no W/R/R MSK: R ankle of concern with TTP of lateral and medial ligamentous structures, no distal syndesmosis tenderness to palpation, limited range of motion in the ankle in all planes especially stiffness with dorsiflexion, negative syndesmotic squeeze, negative anterior drawer Integumentary: No suspicious rash or lesion on exposed skin Neurologic: AAOx3, no focal deficits Psychiatric: Appropriate mood/affect Results & Data Results & Data Vital Signs (Past 12 Hours) Vital Signs Temp Pulse Resp BP BP Pulse Ox O2 Del Method 10/04/22 15:52 61 118/73 10/04/22 15:20 36.6 C 74 18 170/82 H 96 Room Air 10/04/22 07:19 36.4 C L 70 16 111/69 96 Room Air Laboratory Results Unremarkable CBC, calcium low at 8.4, phosphorus low at 1.7 Diagnostic Findings Right ankle x-rays again reviewed from 10/02 imaging no acute fracture or dislocation PG Care Time/CCT Total # of Minutes Spent Total Time Spent with Patient: Total time spent is greater than 50% in coordination of care (as documented) at patient's floor/unit and/or counseling patient: Coding Level of Care Code 27983 SUB INP/OBS CARE 2/35MIN Diagnoses Weakness R53.1 Demyelinating disease G37.9 DVT (deep venous thrombosis) I82.502 Affected thrombotic vein of extremity: unspecified vein of extremity Chronicity: chronic DVT location: lower extremity Laterality: left Primary hyperparathyroidism E21.0 Right ankle strain S96.911A Generalized weakness R53.1 Hypophosphatemia E83.39 (3) DVT (deep venous thrombosis) Affected thrombotic vein of extremity: unspecified vein of extremity Chronicity: chronic DVT location: lower extremity Laterality: left Qualified Code(s): I82.502 - Chronic embolism and thrombosis of unspecified deep veins of left lower extremity
[2022-10-05] MEDS: HYDROmorphone INJ 0.5 MG/0.5 ML SYR IV PRN ×2 (01:36→07:35)
[2022-10-05] MEDS: SODIUM CHLORIDE 0.9% 1000ML 1,000 ML IV SCH ×2 (05:59→17:07)
[2022-10-05 06:21] LABS: Basophils # (auto) 0.06 K/uL (0-0.2); Basophils % (auto) 0.8 %; Eosinophils # (auto) 0.13 K/uL (0-0.50); Eosinophils % (auto) 1.7 %; Hematocrit (blood only) 38.8 % (42.0-52.0); Hemoglobin 13.4 g/dl (14.0-18.0); Immature Granulocytes # (auto) 0.03 K/uL (0.01-0.20); Immature Granulocytes % (auto) 0.4 %; Lymphocytes % (auto) 23.9 %; Mean Corpuscular Hemoglobin 32.2 pg (25.0-34.0); Mean Corpuscular Hgb Conc 34.5 g/dL (32.0-36.0); Mean Corpuscular Volume 93.3 fL (80.0-100.0); Mean Platelet Volume 10.7 fL (9.4-12.4); Monocytes # (auto) 0.74 K/uL (0.11-0.59); Monocytes % (auto) 9.8 %; Neutrophils # (auto) 4.77 K/uL (1.40-6.50); Neutrophils % (auto) 63.4 %; Platelet Count 169 K/uL (130-400); RDW Coefficient of Variation 11.9 % (11.5-14.5); RDW Standard Deviation 40.8 fL (36.4-46.3); Red Blood Count 4.16 M/uL (4.70-6.10); White Blood Count 7.53 K/ul (4.8-10.8)
[2022-10-05 06:30] LABS: BUN Creatinine Ratio 8.8 (10-20); Calcium 8.1 mg/dl (8.6-10.3); Creatinine Clr Calc Pharmacy 92.1 ml/min; Est GFR (African American) 87.7 ml/min; Est GFR (Non-African American) 75.6 ml/min; Phosphorus 2.7 mg/dl (2.5-4.9); Potassium 3.8 mmol/L (3.5-5.1)
[2022-10-05] MEDS: FLUoxetine HCL 20 MG CAP PO SCH (08:12)
[2022-10-05] MEDS: CINACALCET HCL 30 MG TAB PO SCH ×2 (08:12→17:04)
[2022-10-05] MEDS: APIXABAN 5 MG TABLET PO SCH ×2 (08:12→21:29)
[2022-10-05] MEDS: oxyCODONE HCL IR 5 MG TAB (IMMEDIATE RELEASE) PO PRN ×2 (13:20→21:29)
--- NOTE | 2022-10-05 17:38 | Hospitalist Progress Note ---
Date of Service October 05, 2022 Assessment & Plan (1) Weakness: Plan: Patient presents with right-sided weakness, initially thought to be due to MS flareup However MRI C-spine and brain did not show any evidence of flareups or acute disease -Patient states his weakness continues to improve, just concerned about his right ankle PT evaluated and recommended rehab - Discontinued IVF (2) Demyelinating disease: Plan: History of multiple sclerosis MRI brain did not show any evidence of acute disease (3) DVT (deep venous thrombosis): Plan: History of DVT Continue Eliquis (4) Primary hyperparathyroidism: Plan: Hypercalcemia Patient was pending parathyroidectomy during COVID, was lost to follow-up due to pandemic We will need [place]cheduled [place] [facility] [place] Is relatively euvolemic on admission, calcium 12.2, PTH 212.3; despite taking his Cinacalcet as directed Continue vitamin D supplementation We will urged him to make his outpatient follow-up with ENT for parathyroidectomy - Ca actually low this morning - will continue monitoring and check ionized calcium in the morning (5) Right ankle strain: Plan: Patient said he sprained his right ankle. X-ray did not show any evidence of fracture PT eval and recommends rehab Ankle brace ordered (6) Generalized weakness: Plan: Chronic left sided paresis However patient said his weakness worsened a couple of days prior to presentation No evidence of MS flareup PT eval and recommends rehab (7) Hypophosphatemia: Plan: Monitor and replete as necessary, normal this morning (8) Anemia: Plan: Normocytic anemia, has had mild anemia previously in the past, recommend monitoring and consider further outpatient with Plan Diet: Regular Disposition: Medical telemetry, SNF on discharge - will attempt to pursue on 10/06. Otherwise patient open to as alternative. CODE STATUS: Full code DVT prophylaxis: Anticoagulated for history of DVT Admission and Anticipated Discharge Date Admission Date: October 02, 2022 Subjective Reports R ankle pain slightly improved. Worked with PT and is interested in rehab post-hospitalization. Still feels a little weak but slightly improved since admission. Denies any fevers or chills, lightheadedness or dizziness, chest pain, shortness of breath. Physical Exam Physical Exam: General: Well-appearing, NAD Cardiovascular: RRR, no M/R/G Pulmonary: CTAB, no W/R/R MSK: R ankle of concern with no significant edema or ecchymosis, still with TTP of lateral and medial ligamentous structures limited range of motion in the ankle in all planes especially stiffness with dorsiflexion Integumentary: No suspicious rash or lesion on exposed skin Neurologic: AAOx3, no focal deficits Psychiatric: Appropriate mood/affect Results & Data Results & Data Vital Signs (Past 12 Hours) Vital Signs Temp Pulse Resp BP Pulse Ox O2 Del Method 10/05/22 16:10 36.4 C L 67 16 131/71 96 Room Air 10/05/22 05:56 36.3 C L 61 18 108/67 98 Room Air Laboratory Results Reviewed all labs from today notable for mild decrease in hemoglobin to 13.4, continues with normal creatinine, calcium low at 8.1, phosphorus normalized to 2.7 PG Care Time/CCT Total # of Minutes Spent Total Time Spent with Patient: Total time spent is greater than 50% in coordination of care (as documented) at patient's floor/unit and/or counseling patient: Coding Level of Care Code 88468 SUB INP/OBS CARE 03/26MIN Diagnoses Weakness R53.1 Demyelinating disease G37.9 DVT (deep venous thrombosis) I82.502 Affected thrombotic vein of extremity: unspecified vein of extremity Chronicity: chronic DVT location: lower extremity Laterality: left Primary hyperparathyroidism E21.0 Right ankle strain S96.911A Generalized weakness R53.1 Hypophosphatemia E83.39 Anemia D64.9 (3) DVT (deep venous thrombosis) Affected thrombotic vein of extremity: unspecified vein of extremity Chronicity: chronic DVT location: lower extremity Laterality: left Qualified Code(s): I82.502 - Chronic embolism and thrombosis of unspecified deep veins of left lower extremity
[2022-10-06 06:43] LABS: Creatinine Clr Calc Pharmacy 82.7 ml/min; Est GFR (African American) 76.9 ml/min; Est GFR (Non-African American) 66.4 ml/min
[2022-10-06] MEDS: APIXABAN 5 MG TABLET PO SCH ×2 (07:56→21:09)
[2022-10-06] MEDS: FLUoxetine HCL 20 MG CAP PO SCH (07:57)
[2022-10-06] MEDS: CINACALCET HCL 30 MG TAB PO SCH ×2 (07:57→16:08)
[2022-10-06] MEDS: oxyCODONE HCL IR 5 MG TAB (IMMEDIATE RELEASE) PO PRN ×2 (07:58→16:09)
--- NOTE | 2022-10-06 14:27 | Hospitalist Progress Note ---
Date of Service October 06, 2022 Assessment & Plan (1) Weakness: Plan: Mild right hemiparesis present on admission. The patient believes this has improved since admission. MRI scan negative for CVA and did not show any evidence of MS flare. Continue OT and PT (2) Demyelinating disease: Plan: History of multiple sclerosis. MRI brain did not show any evidence of acute disease (3) DVT (deep venous thrombosis): Plan: History of DVT. Continue Eliquis (4) Primary hyperparathyroidism: Plan: Hypercalcemia noted in the past. Patient was pending parathyroidectomy during COVID, was lost to follow-up due to pandemic. Will need rescheduled follow-up with ENT/surgical Endo at [facility]. Ccalcium 12.2, PTH 212.3. Taking Cinacalcet as directed. (5) Right ankle strain: Plan: X-ray did not show any evidence of fracture. Ankle brace. Supportive care. Pain control measures. (6) Generalized weakness: Plan: weakness worsened a couple of days prior to presentation. No evidence of MS flareup seen on MRI scan. (7) Hypophosphatemia: Plan: Monitor and replete as necessary (8) Anemia: Plan: Normocytic anemia. Has had mild anemia previously in the past. Serial labs Plan Awaiting final arrangements for discharge to [facility] bed Admission and Anticipated Discharge Date Admission Date: October 02, 2022 Subjective Alert and oriented. No new problems. Medically stable. Awaiting final arrangements for discharge to [facility] bed. Mild right-sided weakness persists Review of Systems Review of Systems: Constitutional-no fever or chills ENT-no blurred vision, no double vision, no epistaxis, no sore throat Respiratory-no cough, no wheezing, no shortness of breath Cardiac-no palpitations, no chest pain, no syncope GI-no nausea, vomiting, diarrhea, melena, hematochezia -no urinary retention, no urinary incontinence, no dysuria, no hematuria Musculoskeletal-no joint pain, no muscle tenderness Skin-no bruising, no rashes, no pruritus Neuro-mild right-sided weakness persists Psych-no depression, no anxiety Physical Exam Physical Exam: General-alert and oriented x3, no fevers, no chills HEENT-head atraumatic and normocephalic, pupils equal and reactive to light, extraocular muscles intact Neck-no lymphadenopathy or thyromegaly, trachea midline Chest-clear to auscultation percussion. No rales wheezing or rhonchi Cardiac-regular rate and rhythm, normal S1 and S2, no murmurs Abdomen-normal bowel sounds, nontender, no hepatosplenomegaly Extremities-no cyanosis, clubbing, or edema Neuro-cranial nerves II through XII intact, mild right hemiparesis. Psych-normal affect, normal mood Results & Data Results & Data Vital Signs (Past 12 Hours) Vital Signs Temp Pulse Resp BP Pulse Ox O2 Del Method 10/06/22 08:02 36.3 C L 61 16 104/65 95 Room Air Laboratory Results 10/05/22 05:37 10/06/22 05:55 PG Care Time/CCT Total # of Minutes Spent Total Time Spent with Patient: Total time spent is greater than 50% in coordination of care (as documented) at patient's floor/unit and/or counseling patient: Coding Level of Care Code 93035 SUB INP/OBS CARE 3/50MIN Diagnoses Weakness R53.1 Demyelinating disease G37.9 DVT (deep venous thrombosis) I82.502 Affected thrombotic vein of extremity: unspecified vein of extremity Chronicity: chronic DVT location: lower extremity Laterality: left Primary hyperparathyroidism E21.0 Right ankle strain S96.911A Generalized weakness R53.1 Hypophosphatemia E83.39 Anemia D64.9 (3) DVT (deep venous thrombosis) Affected thrombotic vein of extremity: unspecified vein of extremity Chronicity: chronic DVT location: lower extremity Laterality: left Qualified Code(s): I82.502 - Chronic embolism and thrombosis of unspecified deep veins of left lower extremity
[2022-10-07] MEDS: oxyCODONE HCL IR 5 MG TAB (IMMEDIATE RELEASE) PO PRN ×2 (06:20→16:42)
[2022-10-07] MEDS: APIXABAN 5 MG TABLET PO SCH (08:06)
[2022-10-07] MEDS: CINACALCET HCL 30 MG TAB PO SCH ×2 (08:06→16:42)
[2022-10-07] MEDS: FLUoxetine HCL 20 MG CAP PO SCH (08:07)
--- NOTE | 2022-10-07 11:51 | Discharge Summary ---
Date of Service October 07, 2022 Admission HPI Per Admitting Provider Acute R weakness since he woke up this morning, notice d alittle last 2 days but much worse today. Slightly numb, but mostly just weakness. Lower back and R foot throb and are painful. Low back pain is chronic and unc hanged No fevers, chills or sweats No chest pain or chest pressure Intermittent headache chronically, none at admit Blurry vision which is worse than usual today, is intermittent and commonw ith his MS since 2009. Left side is chronically ', nostrength never changes.' QUalitative feeling of delayed sensationin L side, feels soft and sharp touch but feelslike it is slightly delayed and has been told this is common with MS. Is not currently on any treatment for MS. Follows with [facility] [place]. Graf at [facility]. Has not been on seroidsin a few months. Calcium due to hyperparathyroid. Taking cinacalcet, reports he has been taking medications relabiliy, misses maybe one a week or every other. Has not seen anyone for it recently, hasn't been able to followup. Was originally going to see [facility] [place] Dr. Romano for parathyroidectomy with ENT but this was lost due to covid pandemic and never rescheduled. Eating and dirnking OK last few days. No nausea/vomiting. +Chronic diarrhea and intermittent constipation. Takes eliquis 5mg PO BID for history of LE DVT, several years ago but continued for chronic risk Medical History: Reviewed Medications: Reviewed Surgical History: Reviewed Family history: Reviewed Allergies: Reviewed Social History: Snuff. Rare social etoh. Rare marijuana, none in years. Code Status: Full Code Principal Diagnosis Right hemiparesis, recent right ankle sprain Discharge Exam General-alert and oriented x3, no fevers, no chills HEENT-head atraumatic and normocephalic, pupils equal and reactive to light, extraocular muscles intact Neck-no lymphadenopathy or thyromegaly, trachea midline Chest-clear to auscultation percussion. No rales wheezing or rhonchi Cardiac-regular rate and rhythm, normal S1 and S2, no murmurs Abdomen-normal bowel sounds, nontender, no hepatosplenomegaly Extremities-no cyanosis, clubbing, or edema Neuro-cranial nerves II through XII intact, mild right hemiparesis. Psych-normal affect, normal mood Discharge Data Allergies Allergy/AdvReac Type Severity Reaction Status Date / Time aspirin Allergy Severe airway Verified 10/02/22 15:46 edema; hives Consultations 10/02/22 14:51 ED Decision to Admit Stat Ordered Studies 10/02/22 15:06 MR brain MS wo/w con Urgent MRI Cervical [MR cervical spine wo/w con] Urgent Hospital Course (1) Weakness: Mild right hemiparesis present on admission. The patient believes this has improved since admission. MRI scan negative for CVA and did not show any evidence of MS flare. Continue OT and PT (2) Demyelinating disease: History of multiple sclerosis. MRI brain did not show any evidence of acute disease (3) DVT (deep venous thrombosis): History of DVT. Continue Eliquis (4) Primary hyperparathyroidism: Hypercalcemia noted in the past. Patient was pending parathyroidectomy during COVID, was lost to follow-up due to pandemic. Will need rescheduled follow-up with ENT/surgical Endo at [facility] [place]. Ccalcium 12.2, PTH 212.3. Taking Cinacalcet as directed. (5) Right ankle strain: X-ray did not show any evidence of fracture. Ankle brace. Supportive care. Pain control measures. (6) Generalized weakness: weakness worsened a couple of days prior to presentation. No evidence of MS flareup seen on MRI scan. (7) Hypophosphatemia: Monitor and replete as necessary (8) Anemia: Normocytic anemia. Has had mild anemia previously in the past. Serial labs Plan Swing bed placement denied by insurance. He will go home today, October 07, with home health services awaiting final arrangements for discharge to [place] [facility] bed Total Time Total Time Spent Total Time Spent (In Minutes): 45 minutes Discharge Plan Discharge Items Patient Disposition: Home - Home Health Services Reason For Visit: WEAKNESS, MS VS HYPERCALCEMIA Discharge Diagnosis: Right hemiparesis, right ankle sprain Activity: Resume your previous activity Non-emergency contact: Primary Care Provider and Neurologist Call non-emergency contact if: you have any medication questions and your symptoms worsen Follow-up/Referrals: Louis Hale [Primary Care Provider] - Diet: Regular Addtl Attending Provider Instructions: please make appointment to follow up with your regular doctors, including ENT surgery for your hyperparathyroidism Pending Studies at Discharge: No Stand-Alone Forms: My [facility], Smoking Cessation Medications and DC Order Prescriptions: Continued tizanidine 2 mg tablet 2 mg PO DAILY PRN (Reason: muscle spasms) Eliquis 5 mg tablet 5 mg PO BID fluoxetine 20 mg capsule 20 mg PO DAILY cinacalcet 30 mg tablet 30 mg PO BID Discharge Orders: Discharge Order (Routine); Ordered 10/07/22 Ordered By: Jai Bautista Admission Data Admit Date/Time: 10/02/22 15:10 Attending Provider: Jai Bautista Admit Provider: Filiberto Conn Primary Care Provider: Louis Hale Other Providers: Filiberto Conn Coding Level of Care Code 97427 INP/OBS DISCH >30 MIN Diagnoses Weakness R53.1 Demyelinating disease G37.9 DVT (deep venous thrombosis) I82.502 Affected thrombotic vein of extremity: unspecified vein of extremity Chronicity: chronic DVT location: lower extremity Laterality: left Primary hyperparathyroidism E21.0 Right ankle strain S96.911A Generalized weakness R53.1 Hypophosphatemia E83.39 Anemia D64.9
== END 2022-10-07 17:10 | disposition home health service (06) | DRG 57 ==
LOC: ED 12:02 → 3E 15:10 → SUATTDRO 15:10 → 3E 16:27

== ENCOUNTER 2023-03-04 13:37 | Observation (INO) ==
--- NOTE | 2023-03-04 13:51 | ED Triage Note ---
Date of Service March 04, 2023 Provider in Triage Author: Harrison Childers History of Present Illness This patient was briefly evaluated while in triage. An abbreviated physical exam was performed. This patient is a 47-year-old Male who presents to the ED for evaluation of via EMS fall from wheelchair earlier today, helped by EMS back into chair, no reported injury called back for buttocks pain "my ass crack is on fire" possibly related to bowel incontinence Physical Exam GENERAL: NAD in WC CARDIOVASCULAR: RRR RESPIRATORY: CTA Initial orders for labs and / or imaging were placed and patient was placed in the waiting area until a bed is available. Please see further documentation for the full ED course. MDM / Impression Impression Impression: Cellulitis of multiple sites of buttock, Fecal incontinence, History of multiple sclerosis
[2023-03-04] MEDS ORDERED: cefTRIAXone SODIUM 2,000 MG/50 ML BAG IV STA (14:22)
[2023-03-04] MEDS ORDERED: VANCOMYCIN HCL 2,250 MG in SODIUM CHLORIDE 0.9% 500 ML IV STA (14:22)
[2023-03-04] MEDS ORDERED: VANCOMYCIN CONSULT ACTIVE PRN (14:27)
[2023-03-04] MEDS ORDERED: MoRPHine SULFATE 4 MG/ML 1 ML CARP\\VIAL IV STA (14:27)
--- NOTE | 2023-03-04 15:14 | Emergency Department Note ---
ED Provider Note History of Present Illness Chief Complaint: Rash Stated Complaint: BUTT CRACK HURTS FEELS LIKE ON FIRE Time Seen by Provider: 03/04/23 14:05 47-year-old male, history of multiple sclerosis, who presents to the emergency department via ambulance for evaluation of severe buttock pain. The patient reports that he has been bed for the past week because of this discomfort. He does report a prior history of skin infections secondary to stool incontinence. He does use Lotrimin at home. The patient reports that when the pain progressively worsened, he thought he should come to the emergency department for further evaluation. He does have a home health nurse who comes to his house daily. He reports that his symptoms significantly worsened this morning, therefore calling 911. Patient has not had any chills at home. He denies any difficulty urinating, abdominal or lower back pain. Patient denies history of antibiotic resistant infections. The patient rates his discomfort a 10 out of 10. Home Medications Medication Instructions Recorded Confirmed Type ondansetron 4 mg disintegrating 4 mg PO Q6H PRN nausea and 02/13/23 Rx tablet vomiting #15 tabs tizanidine 2 mg tablet 2 mg PO DAILY PRN Muscle Spasm 02/13/23 02/13/23 History Allergies Allergy/AdvReac Type Severity Reaction Status Date / Time aspirin Allergy Severe airway Verified 02/13/23 00:52 edema; hives Past Med/Surg History Medical History Osteoporosis CKD (chronic kidney disease) H/O poor personal hygiene Primary hyperparathyroidism Left leg pain Weakness Multiple sclerosis exacerbation Obstructive uropathy 2/2 renal stone, caused RUBI, pt admitted for this and hypercalcemia 05/2018 Hyperparathyroidism Hypercalcemia Chronic pain syndrome Seizure disorder Many years ago may have had single episode, pt was never treated for this, no reoccurrence. Depression Multiple sclerosis Surgical History History of cystoscopy WITH STENT PLACEMENT 06/14/18 [facility] Family History Father Stroke Thyroid disorder Other Hypertension Kidney stones Social History Smoking Status: Never smoker Tobacco Type: Smokeless Tobacco (Dip or Chew) Cigarettes Per Day: 0; Second Hand Exposure: No; Do You Dip or Chew Tobacco: Yes; Hx Alcohol Use: Yes Alcohol type: beer Hx Substance Use: No Preferred Language: Gambian Communication Ability: Effective [employer] Required: No Beliefs That Will Affect Care: None marital status: Current Living Situation: Family Current Living Situation Comment: father and uncle current occupational status: disabled How many Children do You have: 2 Feels Safe at Home: Yes Assistive Devices: Hospital Bed and Wheelchair Physical Exam Vital Signs Vital Signs - 24 hr 03/04/23 14:01 03/04/23 15:57 03/04/23 15:57 Temperature 36.2 C L Temperature Source Temporal Artery Scan Pulse Rate 106 H 84 82 Pulse Rhythm Regular Pulse Strength Normal Respiratory Rate 20 17 Respiratory Effort / Characteristics Non-Labored Spontaneous Respiratory Depth Normal Respiratory Pattern Regular Blood Pressure Blood Pressure Mean Blood Pressure Position Sitting Pulse Oximetry 94 Oxygen Delivery Method Room Air Sepsis Recent Fever Within 48 Hours No Sepsis New/Unexplained Change in Mental Status No Sepsis Action Taken by Nursing No Action Required 03/04/23 16:00 03/04/23 16:00 03/04/23 16:08 Temperature Temperature Source Pulse Rate 83 77 Pulse Rhythm Pulse Strength Respiratory Rate 18 17 Respiratory Effort / Characteristics Respiratory Depth Respiratory Pattern Blood Pressure 132/79 Blood Pressure Mean 94 Blood Pressure Position Pulse Oximetry Oxygen Delivery Method Sepsis Recent Fever Within 48 Hours Sepsis New/Unexplained Change in Mental Status Sepsis Action Taken by Nursing 03/04/23 16:30 Temperature Temperature Source Pulse Rate Pulse Rhythm Pulse Strength Respiratory Rate Respiratory Effort / Characteristics Respiratory Depth Respiratory Pattern Blood Pressure 121/78 Blood Pressure Mean 85 Blood Pressure Position Pulse Oximetry Oxygen Delivery Method Sepsis Recent Fever Within 48 Hours Sepsis New/Unexplained Change in Mental Status Sepsis Action Taken by Nursing CONSTITUTIONAL: Healthy and well nourished. Alert and oriented X 3. Patient appears in mild discomfort. HEENT: Normocephalic, atraumatic. NECK: Full active range of motion without discomfort. LYMPHATICS: No cervical chain adenopathy. RESPIRATORY: Clear to auscultation bilaterally with no wheezing, crackles, rhonchi or stridor. CARDIOVASCULAR: Regular rate and rhythm with no murmurs, rubs or gallops. GASTROINTESTINAL: Bowel sounds present in all quadrants. Abdomen is soft and nontender to palpation. MUSCULOSKELETAL: The patient's left lower extremity is flaccid, and support with a brace. INTEGUMENTARY: After transferring the patient to his examination bed, examination shows notable skin sloughing of bilateral medial buttocks. He also has erythema extending onto the right lower buttock and posterior thigh region. Mild induration is noted. No obvious tunneling. Further examination does not show any perianal erythema or tenderness to palpation. HEMATOLOGIC: No ecchymosis or petechiae. PSYCHIATRIC: Positive affect. NEUROLOGIC: No focal neurologic deficits noted. Course Course When I presented to the examination room, the patient was still sitting in a wheelchair. It took 6 providers to move him from the wheelchair over onto his examination bed. When he was rolled over, his diaper was noted to be significantly soiled. Removing the diaper showed skin breakdown of bilateral buttocks, with concern for cellulitis extending onto the left inferior buttock and posterior thigh region. IV access was established, and labs were drawn. The patient was hydrated with a liter normal saline, and administered IV vancomycin and Rocephin. He was also administered IV morphine for pain. Review of labs does not show any leukocytosis. He does have a mild neutrophilic shift without bandemia. CMP was otherwise grossly normal. After discussing the case further with Dr. Cuevas, ED team physician, CT with IV contrast of the abdomen and pelvis did not show evidence for abscess or obvious tunneling. The case was also discussed with Dr. Cuevas, ED attending physician, as well as the [facility] hospitalist service. The patient does agree to be admitted for IV antibiotics. Please see hospitalist dictations for further treatment and final disposition. Administered Medications Discontinued Medications Vancomycin HCl 2,250 mg/ (Sodium Chloride) 545 mls @ 200 mls/hr IV NOW STA Stop: 03/04/23 16:51 Last Admin: 03/04/23 15:36 Dose: 200 mls/hr Documented By: KENDY Ceftriaxone Sodium (Rocephin) 2,000 mg in 50 mls @ 100 mls/hr IV NOW STA Stop: 03/04/23 14:51 Last Infusion: 03/04/23 16:20 Dose: Infused Documented By: Admin: 03/04/23 15:25 Dose: 100 mls/hr Documented By: KENDY Ioversol (Optiray 320 500ml) 95 ml IV ONCE ONE Stop: 03/04/23 17:00 Last Admin: 03/04/23 16:59 Dose: 95 ml Documented By: ZEHRA Morphine Sulfate (Morphine Sulfate 4 Mg/Ml 1 Ml Carp\Vial) 4 mg IV NOW STA Stop: 03/04/23 14:28 Last Admin: 03/04/23 15:25 Dose: 4 mg Documented By: KENDY Risk - Pediatric Head Injury Age Age: >/= 2 GCS </= 14: No Basal Skull Fracture: No AMS (Agitated/Somnolent/Repetitive Questions/Slow Response): No Hx of LOC: No Hx of Vomiting or Severe Headache: No Severe Mechanism of Injury: Yes Results Recommendation: Observation v CT Risk of ciTBI: 0.8% Risk of ciTBI Medical Decision Making Medical Records Attestation: I reviewed the patient's medical records. Home Medications was personally reviewed by me Laboratory Data Attestation: I reviewed the patient's lab results. 03/04/23 14:58 03/04/23 14:58 Lab Results 03/04/23 Range/Units 14:58 WBC 9.74 (4.8-10.8) K/ul RBC 5.09 (4.70-6.10) M/uL Hgb 16.3 (14.0-18.0) g/dl Hct 47.2 (42.0-52.0) % MCV 92.7 (80.0-100.0) fL MCH 32.0 (25.0-34.0) pg MCHC 34.5 (32.0-36.0) g/dL RDW Std Deviation 41.8 (36.4-46.3) fL RDW Coeff of Bret 12.1 (11.5-14.5) % Plt Count 254 (130-400) K/uL MPV 10.1 (9.4-12.4) fL Immature Gran % (Auto) 0.8 % Neut % (Auto) 78.4 % Lymph % (Auto) 12.0 % [place] % (Auto) 8.1 % Eos % (Auto) 0.3 % Baso % (Auto) 0.4 % Neut # (Auto) 7.63 H (1.40-6.50) K/uL Lymph # (Auto) 1.17 L (1.20-3.40) K/uL [place] # (Auto) 0.79 H (0.11-0.59) K/uL Eos # (Auto) 0.03 (0.00-0.50) K/uL Baso # (Auto) 0.04 (0.00-0.20) K/uL Immature Gran # (Auto) 0.08 (0.01-0.20) K/uL Sodium 138 (136-145) mmol/L Potassium 3.6 (3.5-5.1) mmol/L Chloride 108 H (98-107) mmol/L Carbon Dioxide 18 L (21-32) mmol/L Anion Gap 12 H (3-11) BUN 12 (6-23) mg/dl Creatinine 0.95 (0.6-1.4) mg/dl Est Cr Clr Drug Dosing 109.4 ml/min Est GFR ( Amer) 108.5 ml/min Est GFR (Non-Af Amer) 93.6 ml/min BUN/Creatinine Ratio 12.6 (10-20) Glucose 86 (70-99(Fasting)) mg/dl Calcium 11.1 H (8.6-10.3) mg/dl Total Bilirubin 0.4 (0.2-1.0) mg/dl AST 18 (13-39) U/L ALT 32 (7-52) U/L Alkaline Phosphatase 67 (34-104) U/L Total Protein 7.3 (6.0-8.3) gm/dl Albumin 4.4 (3.4-5.0) gm/dl Globulin 2.9 (2.5-4.0) gm/dl Albumin/Globulin Ratio 1.5 (0.9-2) Imaging Data Attestation: I personally reviewed and interpreted this imaging study as follows: My Impression: My interpretation of the CT with IV contrast of the abdomen and pelvis does not show evidence for abscess formation or tunneling. Additional radiologist findings are also shown in the following port, which was also reviewed. Radiologist's Impression: Abdomen/Pelvis CT 03/04/23 14:27 CT SCAN OF THE ABDOMEN AND PELVIS WITH IV CONTRAST CLINICAL HISTORY: Buttock pain. Cellulitis. COMPARISON STUDY: Abdominal CT dated 02/13/2023. TECHNIQUE: Following the IV administration of 95 cc of Optiray 320, CT scan of the abdomen and pelvis is performed from the lung bases to the proximal femora. Images are reviewed in the axial, sagittal, and coronal planes. IV contrast was administered without complication. A dose lowering technique was utilized adhering to the principles of ALARA. CT DOSE: 1370.17 mGy.cm FINDINGS: Lung bases: The heart is normal in size and without pericardial effusion. The lung bases are clear noting dependent atelectasis. Liver: The contrast-enhanced liver is normal in size, contour, and attenuation. There is no intrahepatic biliary ductal dilatation. The hepatic veins and portal veins are patent. Gallbladder: There are numerous gallstones with no CT evidence of acute cholecystitis. Spleen: Normal in size and attenuation. Pancreas: Unremarkable. Adrenal glands: Unremarkable. Kidneys: The contrast enhanced kidneys are normal in size. There are staghorn calculi of the left kidney. The largest stone is seen in the renal pelvis and measures up to 3.1 cm. Lower lobe calculi measure up to 2.2 cm in aggregate dimension. There is mild left-sided hydronephrosis, with significant urothelial thickening and enhancement of the left renal pelvis and proximal ureter with surrounding inflammation. No ureteral stone is seen. The kidneys enhance symmetrically. A 5 mm nonobstructing calculus is seen in the right kidney. There is no right-sided hydronephrosis. A 2.2 cm cyst is noted in the right upper pole. Abdominal vasculature: The abdominal aorta is normal in course and caliber. Bowel: There is no bowel obstruction. The appendix is well-visualized and normal. Peritoneum: There is no intraperitoneal free air or abdominal ascites. There is a small fat-containing umbilical hernia. Lymphadenopathy: None. Pelvic viscera: The bladder wall appears mildly thickened. The prostate and seminal vesicles are normal as visualized. The perianal soft tissues are normal in appearance. The soft tissues of the buttock are within normal limits. Skeletal structures: No lytic or blastic lesions are seen. IMPRESSION: 1. The soft tissues of the buttock are normal in appearance. There is no CT evidence of cellulitis or abscess. 2. There are staghorn calculi of the left kidney with mild left-sided hydronephrosis. Follow up with urology is recommended. 3. There is urothelial thickening and enhancement involving the left renal pelvis and left proximal ureter with surrounding inflammation. Correlate with clinical findings and urinalysis for evidence of infection. 4. The bladder wall appears mildly thickened. This should also be correlated with clinical findings and urinalysis. 5. There is a small nonobstructing right renal calculus. 6. Cholelithiasis. 7. Additional findings as above. ACT 112: Negative or not required by law. Electronically signed by: Eris Guallpa M.D. 03/04/2023 5:11 PM MDM Narrative See ED Course section for further details of today's visit. The patient presents with complaint of severe buttock pain. The patient does have a history of MS, and frequent bowel incontinence. He has had prior yeast infections, and does have Lotrimin cream at home that he usually uses. The patient reports that his current infection got out of control, and presents for further evaluation. Examination is concerning for cellulitis now extending to the right lower buttock and posterior thigh region. It is noted that the patient is afebrile. He does not have any leukocytosis, therefore I do not suspect sepsis. Vital signs are also otherwise normal. CT imaging did not show evidence for abscess or tunneling. I did discuss the case with the [facility] hospitalist, who will evaluate the patient for admission for IV antibiotics. Impression Cellulitis of multiple sites of buttock, Fecal incontinence, History of multiple sclerosis Discharge Plan Visit Data Chief Complaint: Rash Stated Complaint: BUTT CRACK HURTS FEELS LIKE ON FIRE ED Provider: Ricky Cuevas ED Midlevel Provider: Julian Keyes Discharge Problem: Cellulitis of multiple sites of buttock, Fecal incontinence, History of multiple sclerosis Forms Stand Alone Forms: My [facility] Prescriptions Prescriptions: No Action tizanidine 2 mg tablet 2 mg PO DAILY PRN (Reason: Muscle Spasm) ondansetron 4 mg tablet,disintegrating 4 mg PO Q6H PRN (Reason: nausea and vomiting) Qty: 15 0RF Referrals Referrals: Louis Hale [Primary Care Provider] -
[2023-03-04 15:40] LABS: Basophils # (auto) 0.04 K/uL (0.00-0.20); Basophils % (auto) 0.4 %; Eosinophils # (auto) 0.03 K/uL (0.00-0.50); Eosinophils % (auto) 0.3 %; Hematocrit (blood only) 47.2 % (42.0-52.0); Hemoglobin 16.3 g/dl (14.0-18.0); Immature Granulocytes # (auto) 0.08 K/uL (0.01-0.20); Immature Granulocytes % (auto) 0.8 %; Lymphocytes # (auto) 1.17 K/uL (1.20-3.40); Mean Corpuscular Hgb Conc 34.5 g/dL (32.0-36.0); Mean Corpuscular Volume 92.7 fL (80.0-100.0); Mean Platelet Volume 10.1 fL (9.4-12.4); Monocytes # (auto) 0.79 K/uL (0.11-0.59); Monocytes % (auto) 8.1 %; Neutrophils # (auto) 7.63 K/uL (1.40-6.50); Neutrophils % (auto) 78.4 %; Platelet Count 254 K/uL (130-400); RDW Coefficient of Variation 12.1 % (11.5-14.5); RDW Standard Deviation 41.8 fL (36.4-46.3); Red Blood Count 5.09 M/uL (4.70-6.10); White Blood Count 9.74 K/ul (4.8-10.8)
[2023-03-04 16:03] LABS: Alanine Aminotransferase 32 U/L (7-52); Albumin Globulin Ratio 1.5 (0.9-2); Albumin Level 4.4 gm/dl (3.4-5.0); Alkaline Phosphatase 67 U/L (34-104); Anion Gap 12 (3-11); Aspartate Aminotransferase 18 U/L (13-39); BUN Creatinine Ratio 12.6 (10-20); Bilirubin,Total 0.4 mg/dl (0.2-1.0); Blood Urea Nitrogen 12 mg/dl (6-23); Calcium 11.1 mg/dl (8.6-10.3); Carbon Dioxide 18 mmol/L (21-32); Chloride 108 mmol/L (98-107); Creatinine Clr Calc Pharmacy 109.4 ml/min; Est GFR (African American) 108.5 ml/min; Est GFR (Non-African American) 93.6 ml/min; Globulin 2.9 gm/dl (2.5-4.0); Glucose 86 mg/dl (70-99(Fasting)); Potassium 3.6 mmol/L (3.5-5.1); Sodium 138 mmol/L (136-145); Total Protein 7.3 gm/dl (6.0-8.3)
[2023-03-04] MEDS ORDERED: OPTIRAY 320 500ml IV ONE (16:59)
--- NOTE | 2023-03-04 17:12 | CT Scan Report ---
CT SCAN OF THE ABDOMEN AND PELVIS WITH IV CONTRAST CLINICAL HISTORY: Buttock pain. Cellulitis. COMPARISON STUDY: Abdominal CT dated 02/13/2023. TECHNIQUE: Following the IV administration of 95 cc of Optiray 320, CT scan of the abdomen and pelvi s is performed from the lung bases to the proximal femora. Images are reviewed in the axial, sagittal , and coronal planes. IV contrast was administered without complication. A dose lowering technique wa s utilized adhering to the principles of ALARA. CT DOSE: 1370.17 mGy.cm FINDINGS: Lung bases: The heart is normal in size and without pericardial effusion. The lung bases are clear no ting dependent atelectasis. Liver: The contrast-enhanced liver is normal in size, contour, and attenuation. There is no intrahepa tic biliary ductal dilatation. The hepatic veins and portal veins are patent. Gallbladder: There are numerous gallstones with no CT evidence of acute cholecystitis. Spleen: Normal in size and attenuation. Pancreas: Unremarkable. Adrenal glands: Unremarkable. Kidneys: The contrast enhanced kidneys are normal in size. There are staghorn calculi of the left kid jamal. The largest stone is seen in the renal pelvis and measures up to 3.1 cm. Lower lobe calculi arie ure up to 2.2 cm in aggregate dimension. There is mild left-sided hydronephrosis, with significant ur othelial thickening and enhancement of the left renal pelvis and proximal ureter with surrounding inf lammation. No ureteral stone is seen. The kidneys enhance symmetrically. A 5 mm nonobstructing calcul us is seen in the right kidney. There is no right-sided hydronephrosis. A 2.2 cm cyst is noted in the right upper pole. Abdominal vasculature: The abdominal aorta is normal in course and caliber. Bowel: There is no bowel obstruction. The appendix is well-visualized and normal. Peritoneum: There is no intraperitoneal free air or abdominal ascites. There is a small fat-containin g umbilical hernia. Lymphadenopathy: None. Pelvic viscera: The bladder wall appears mildly thickened. The prostate and seminal vesicles are norm al as visualized. The perianal soft tissues are normal in appearance. The soft tissues of the buttock are within normal limits. Skeletal structures: No lytic or blastic lesions are seen. IMPRESSION: 1. The soft tissues of the buttock are normal in appearance. There is no CT evidence of cellulitis or abscess. 2. There are staghorn calculi of the left kidney with mild left-sided hydronephrosis. Follow up with urology is recommended. 3. There is urothelial thickening and enhancement involving the left renal pelvis and left proximal u reter with surrounding inflammation. Correlate with clinical findings and urinalysis for evidence of infection. 4. The bladder wall appears mildly thickened. This should also be correlated with clinical findings a nd urinalysis. 5. There is a small nonobstructing right renal calculus. 6. Cholelithiasis. 7. Additional findings as above. ACT 112: Negative or not required by law. Electronically signed by: Eris Guallpa M.D. 03/04/2023 5:11 PM
--- NOTE | 2023-03-04 17:23 | History & Physical Report ---
Date of Service March 04, 2023 Assessment & Plan (1) Cellulitis: Plan: Gluteal cleft erysipelas With history of incontinence, mild right hemiparesis, limited ambulation at baseline Patient has a daily caregiver which can normally help him at home however due to his buttock pain and limitations due to his acute cellulitis current needs exceed daily caregiver ability is recommended for admission with PT/OT and treatment of cellulitis On exam gluteal cleft with bright red very tender demarcated erythema without purulence or ulceration. Suspicious for erysipelas, patient treated with ceftriaxone/vancomycin. Given no purulence/abscess vancomycin discontinued and Rocephin continued CTA/P without evidence of deeper cellulitis/abscess. Staghorn calculi of the left kidney with mild left-sided hydro is noted, urology consulted. Bladder wall is thickened, patient is covered empirically with antibiotics as noted and denies urinary symptoms. He does not have an RUBI and creatinine is 0.95 on admit CRP added and trended (2) History of multiple sclerosis: Plan: MS, mild right hemiparesis Chronic, no change in baseline strength however limitations due to cellulitic pain limits his ability to sit and roll at home with the assistance of his caregiver PT/OT and active exercises as tolerated. CM consulted. (3) DVT (deep venous thrombosis): Plan: History of DVT On Eliquis 5 mg twice daily, continued. Patient denies acute leg swelling or shortness of breath (4) Demyelinating disease: (5) Staghorn calculus: Plan: Staghorn calculi, hydronephrosis CT has noted No RUBI Urology consulted Plan DVT prophylaxis: Anticoagulated Diet: Regular Disposition: Medical surgical CODE STATUS: Full History of Present Illness Primary Care Provider: Louis Hale Mazin is a 47-year-old male with a past medical history of MS with mild right hemiparesis and limited ambulation at baseline, DVT on Eliquis, rectal incontinence who presents with 24 to 36 hours of rapidly worsening severe pain at the gluteal cleft without fever/chills/sweats but which limits his limited ambulation at home and ability to self-care. Reports he is generally incontinent of stool at baseline, and sometimes has irritation at the buttocks but this seems much worse in the last 24 to 36 hours. Pain has sharply increased up to a 9/10 and is incredibly tender anytime he tries to roll over or bear weight on his low back/buttock. Denies fever, chills or rigors. No nausea/vomiting. No dysuria. No hematuria. No abdominal pain. No chest pain or shortness of breath. Reports other than the severe pain in his buttock has had no new or changing symptoms Medical History: Reviewed Medications: Reviewed Surgical History: Reviewed Family history: Reviewed Allergies: Reviewed Social History: Reviewed Code Status: Full Allergies Allergy/AdvReac Type Severity Reaction Status Date / Time aspirin Allergy Severe airway Verified 02/13/23 00:52 edema; hives Home Medications Medication Instructions Recorded Confirmed Type ondansetron 4 mg disintegrating 4 mg PO Q6H PRN nausea and 02/13/23 Rx tablet vomiting #15 tabs tizanidine 2 mg tablet 2 mg PO DAILY PRN Muscle Spasm 02/13/23 02/13/23 History Past Med/Surg History Medical History Osteoporosis CKD (chronic kidney disease) H/O poor personal hygiene Primary hyperparathyroidism Left leg pain Weakness Multiple sclerosis exacerbation Obstructive uropathy 04/03 renal stone, caused RUBI, pt admitted for this and hypercalcemia 05/2018 Hyperparathyroidism Hypercalcemia Chronic pain syndrome Seizure disorder Many years ago may have had single episode, pt was never treated for this, no reoccurrence. Depression Multiple sclerosis Surgical History History of cystoscopy WITH STENT PLACEMENT 06/14/18 [facility] Family History Father Stroke Thyroid disorder Other Hypertension Kidney stones Social History Smoking Status: Never smoker Tobacco Type: Smokeless Tobacco (Dip or Chew) Cigarettes Per Day: 0; Second Hand Exposure: No; Do You Dip or Chew Tobacco: Yes; Hx Alcohol Use: Yes Alcohol type: beer Hx Substance Use: No Preferred Language: Upper Sorbian Communication Ability: Effective Yacht Hand Required: No Beliefs That Will Affect Care: None marital status: Current Living Situation: Family Current Living Situation Comment: father and uncle current occupational status: disabled How many Children do You have: 2 Feels Safe at Home: Yes Assistive Devices: Hospital Bed and Wheelchair Physical Exam Physical Exam: General: A&Ox3. NAD. Cooperative. HEENT: Atraumatic, normocephalic. Vision and hearing grossly intact Pulm: CTAB A&P. -wheezes, -rales, -rhonchi. Symmetrical chest rise. No increased work of breathing. No respiratory distress. Cardiac: RRR, -mrg. Radial pulses intact and symmetrical. Abdominal: Nontender, nondistended, soft. BS present. Skin: Gluteal cleft and surrounding buttock bilaterally with demarcated, tender/warm bright red erythema without purulence or ulceration Results & Data Results & Data Vital Signs (Past 12 Hours) Vital Signs Temp Pulse Resp BP Pulse Ox O2 Del Method 03/04/23 16:30 121/78 03/04/23 16:08 77 17 03/04/23 16:00 132/79 03/04/23 16:00 83 18 03/04/23 15:57 82 17 03/04/23 15:57 84 03/04/23 14:01 36.2 C L 106 H 20 94 Room Air PG Care Time/CCT Total # of Minutes Spent Total Time Spent with Patient: Total time spent is greater than 50% in coordination of care (as documented) at patient's floor/unit and/or counseling patient: Coding Level of Care Code 13309 INT INP/OBS CARE MIN Diagnoses Cellulitis L03.90 History of multiple sclerosis G35 DVT (deep venous thrombosis) I82.502 Affected thrombotic vein of extremity: unspecified vein of extremity Chronicity: chronic DVT location: lower extremity Laterality: left Demyelinating disease G37.9 Staghorn calculus N20.0 (3) DVT (deep venous thrombosis) Affected thrombotic vein of extremity: unspecified vein of extremity Chronicity: chronic DVT location: lower extremity Laterality: left Qualified Code(s): I82.502 - Chronic embolism and thrombosis of unspecified deep veins of left lower extremity
[2023-03-04] MEDS ORDERED: ACETAMINOPHEN 500 MG TAB PO PRN (17:34)
[2023-03-04] MEDS: MoRPHine SULFATE 2 MG/ML CARP IV PRN ×2 (17:42→22:40)
--- NOTE | 2023-03-04 21:54 | Urology Consultation ---
Date of Consultation March 04, 2023 Assessment & Plan (1) Staghorn calculus: Patient has been admitted on the hospitalist service due to underlying cellulitis of his gluteal cleft. Treatment of this condition will be deferred to the medical service Concerning patient's left staghorn calculus we recommend the following: At the present time the patient is afebrile and hemodynamically stable. He does not have leukocytosis or acute kidney injury. Therefore, not feel any acute urologic intervention is required The patient's CT scan will be reviewed by our attending urologist the morning of 03/05/2023 and a determination was made if patient requires any further treatment of this staghorn calculus. History of Present Illness Reason for Consultation: Left-sided staghorn kidney stone History of Present Illness This is a 47-year-old male who presented to the emergency department secondary to pain in his buttocks. Patient notes that he is incontinent of stool and was concerned he was developing infection of his gluteal region. The patient denies any fevers, shakes, or chills. Due to the worsening pain he did present to the emergency department. I n the emergency department the patient has had labs and imaging which independent reviewed. He had a CBC were white blood cell count, hemoglobin, hematocrit, platelet count all within normal range. Chemistry profile showed sodium and potassium are normal. His BUN and creatinine were also normal. He also underwent a CT scan of the abdomen and pelvis. This showed the patient had a staghorn calculus of the left kidney. Mild left-sided hydronephrosis was noted with some urothelial thickening. No ureteral stones were noted. Because of the finding of kidney stone urology was asked to see the patient. Marshall perez says that he does not have any back or flank pain. He denies any dysuria or hematuria. Again, he denies any fevers, shakes, or chills. He also denies any urinary frequency. The patient does report that he has a known history of this staghorn calculi. He says that a few years ago he did have a cystoscopy with a stent placed. Review of records does show that he has been seen in the past by Dr. Law Hernandes of [facility] urology. On 06/12/2018 Dr. Hernandes performed a cystoscopy with left ureteral stent placement. The patient was tentatively scheduled for laser lithotripsy in June 2018 but review of patient's chart reveals that is unclear if he ever had this procedure done. At the present time the patient says that the stone is not giving him any troubles Allergies Allergy/AdvReac Type Severity Reaction Status Date / Time aspirin Allergy Severe airway Verified 03/04/23 19:11 edema; hives Home Medications Medication Instructions Recorded Confirmed Type ondansetron 4 mg disintegrating 4 mg PO Q6H PRN nausea and 02/13/23 03/04/23 Rx tablet vomiting #15 tabs tizanidine 2 mg tablet 2 mg PO DAILY PRN Muscle Spasm 02/13/23 03/04/23 History apixaban 5 mg tablet (Eliquis) 5 mg PO BID 03/04/23 03/04/23 History cinacalcet 30 mg tablet 30 mg PO BID 03/04/23 03/04/23 History fluoxetine 20 mg capsule 20 mg PO DAILY 03/04/23 03/04/23 History Patient History Medical History Osteoporosis CKD (chronic kidney disease) H/O poor personal hygiene Primary hyperparathyroidism Left leg pain Weakness Multiple sclerosis exacerbation Obstructive uropathy 2/ renal stone, caused RUBI, pt admitted for this and hypercalcemia 05/2018 Hyperparathyroidism Hypercalcemia Chronic pain syndrome Seizure disorder Many years ago may have had single episode, pt was never treated for this, no reoccurrence. Depression Multiple sclerosis Surgical History History of cystoscopy WITH STENT PLACEMENT 06/14/18 [facility] Family History Father Stroke Thyroid disorder Other Hypertension Kidney stones Social History Smoking Status: Never smoker Tobacco Type: Smokeless Tobacco (Dip or Chew) Cigarettes Per Day: 0; Second Hand Exposure: No; Do You Dip or Chew Tobacco: Yes; Hx Alcohol Use: Yes Alcohol type: beer Hx Substance Use: No Preferred Language: Slovak Communication Ability: Effective Compliance Director Required: No Beliefs That Will Affect Care: None marital status: Current Living Situation: Family Current Living Situation Comment: father and uncle current occupational status: disabled How many Children do You have: 2 Feels Safe at Home: Yes Assistive Devices: Hospital Bed and Wheelchair Review of Systems Constitutional: no fever and no chills Ear, Nose, Mouth, Throat: no hearing loss Respiratory: no cough Cardiovascular: no chest pain Gastrointestinal: no abdominal pain Genitourinary: + as per Subjective / HPI Musculoskeletal: no back pain Integumentary: as per Subjective / HPI Neurologic: + generalized weakness Physical Exam Constitutional: WD/WN, vitals as above Eyes: no conjunctival abnormality ENMT: Ears: no hearing impairment and no external ear abnormality Mouth: no oropharynx abnormality Neck: trachea midline Respiratory: normal respiratory effort; no respiratory distress and no labored breathing Cardiovascular: Rate/Rhythm: regular rate and regular rhythm Gastrointestinal (Abdomen): Soft and nontender. No pain with palpation Musculoskeletal: No calf tenderness Skin: Patient had significant erythema in the gluteal cleft and surrounding buttock tissue bilaterally. There is no crepitus in the soft tissue. I did not appreciate any purulence or drainage. Neurologic: Patient is able to move all 4 extremities and follows simple commands but has generalized weakness secondary to his underlying multiple sclerosis Psychiatric: A+Ox3, euthymic affect Results & Data Vital Signs (Past 12 Hours) Vital Signs Temp Pulse Resp BP Pulse Ox O2 Del Method 03/04/23 20:50 76 15 03/04/23 20:40 71 13 03/04/23 20:31 83 21 03/04/23 20:31 127/79 03/04/23 20:30 67 17 03/04/23 20:20 85 15 03/04/23 20:10 80 16 03/04/23 20:00 140/74 03/04/23 20:00 74 16 03/04/23 19:50 76 15 03/04/23 19:45 68 03/04/23 19:40 68 16 03/04/23 19:31 71 16 03/04/23 19:31 151/99 H 03/04/23 19:30 73 23 03/04/23 19:20 72 14 03/04/23 19:10 71 16 03/04/23 19:00 133/82 03/04/23 19:00 68 19 03/04/23 18:50 89 29 H 03/04/23 18:40 71 14 03/04/23 18:30 147/74 H 03/04/23 18:30 72 14 03/04/23 18:20 74 16 03/04/23 18:10 77 18 03/04/23 18:01 74 16 03/04/23 18:01 140/96 03/04/23 18:00 75 15 03/04/23 17:50 77 17 03/04/23 17:40 72 18 03/04/23 17:30 73 18 03/04/23 17:30 122/81 03/04/23 17:20 71 17 03/04/23 17:10 76 15 03/04/23 17:05 81 21 03/04/23 16:30 121/78 03/04/23 16:08 77 17 03/04/23 16:00 132/79 03/04/23 16:00 83 18 03/04/23 15:57 82 17 03/04/23 15:57 84 03/04/23 14:01 36.2 C L 106 H 20 94 Room Air PG Care Time/CCT Total # of Minutes Spent Total Time Spent with Patient: Total time spent is greater than 50% in coordination of care (as documented) at patient's floor/unit and/or counseling patient: Coding Level of Care Code 53297 IN/OBS CONSULT LVL 5,80M Diagnoses Staghorn calculus N20.0
[2023-03-04] MEDS ORDERED: ACETAMINOPHEN 325 MG TAB PO PRN (22:12)
[2023-03-04 22:35] LABS: C Reactive Protein < 0.50 mg/dl (0-0.5)
[2023-03-04] MEDS: APIXABAN 5 MG TABLET PO SCH (22:52)
--- OUTSIDE RECORDS SUMMARY | 2023-03-04 23:42 | External Medical Summary | Summary of Care ---
Author Name Unknown Organization [facility] Address [address] [place] [address] Phone [phone] Care Team Providers Care Acidizer Water Well Name Role Phone Louis Hale MD Primary Care Provider [phone] Reason for Visit * Reason Onset Date Comments Referral 02/13/2023 MS Encounter Details Date Type Department Care Team ([facility] st Contact Info) Description [facility] [address] [place] [address] Terra Morgan MD [address] [place] [address] Referral (MS) Allergies Active Allergy Reactions Criticality Noted Date Comments Salicylates Edema airway High 07/20/2006 Hives as well documented as of this encounter (statuses as of 02/13/2023) Medications Medication Sig Dispensed Refills Start Date End Date Status ocrelizumab (OCREVUS) 300 MG/10ML SOLN Administer intravenously. 0 Active Vitamin D, Cholecalciferol, 400 units CAPS Takes 2 tablets daily. 60 Cap 3 12/10/2018 Active documented as of this encounter (statuses as of 02/13/2023) Active Problems Problem Noted Date Diagnosed Date Primary hyperparathyroidism 11/29/2018 TERMINATED MEDICATION USAGE AGREEMENT 02/21/2014 Overview: Failed urine drug test x2 12/03/13 02/16/14 Major depressive disorder 08/15/2013 Overview: ICD-10 update of inactive term Exacerbation of multiple sclerosis 08/12/2012 Near syncope 06/01/2012 Left arm numbness 06/01/2012 Screening for cardiovascular condition 3 EKG, abnormal 05/24/2012 Headache 12/10/2010 Overview: ICD-10 update of inactive term Multiple sclerosis 07/23/2009 Backache 11/29/2007 Vitamin D deficiency documented as of this encounter (statuses as of 02/13/2023) Resolved Problems Problem Noted Date Diagnosed Date Resolved Date TERMINATED MEDICATION USAGE AGREEMENT 09/08/2008 09/25/2008 MEDICATION USE AGREEMENT 07/26/2008 Overview: Managed by [employer]. To view the Medication Usage Agreement, go to Action, Patient Files. documented as of this encounter (statuses as of 02/13/2023) Immunizations Name Administration Dates Next Due Seasonal Influenza, Split, I IV3, With Preserve, Inj 11/16/2013,03/03/2013,11/20/2011, 0 11,12/05/2009 TDAP (age 11 and older)(Adacel) 07/26/2008 documented as of this encounter Social History Tobacco Use Types Packs/Day Years Used Date Smoking Tobacco: Never Smokeless Tobacco: Current Snuff Comments:occasional use of s nuff-started age 4 Alcohol Use Standard Drinks/Week Comments No 0 (1 standard drink = 0.6 oz pur e alcohol) very rare AUDIT-C Answer Date Recorded Frequency of Alcohol Consumption Never 06/17/2018 Average Number of Drinks Not on file 019 Frequency of Binge Drinking Not on file 05/31 Hunger Vital Sign Answer Date Recorded Worried About Running Out of Food in the Last Ye ar Never true 11/29/2018 Ran Out of Food in the Last Year Never true 11/29/2018 Sex and Gender Information Value Date Recorded Sex Assigned at Not on file Gender Identity Not on file Sexual Orientation Not on file documented as of this encounter Miscellaneous Notes * Telephone Encounter - Bety Hallman OSA - 02/13/2023 9:38 AM EST Pt needs an appt in [place] due to no transportation. He uses local transport services. Nothing coming up for 2023. Please advise documented in this encounter Plan of Treatment Health Maintenance Due Date Last Done Comments Hepatitis B (1 of 3 - 3-dose series) 1973 Lipid Panel 1973 COVID-19 Vaccine (#1) 1978 Depression Screening 1985 HIV Screening 1988 Hepatitis C Screening 11/12/1991 DTaP,Tdap,and Td Vaccines (2 - Td or Tdap) 07/26/2018 07/26/2008 Cologuard 2018 Colonoscopy 2018 Colorectal Cancer Screening 2018 Fecal Occult Blood Test 2018 Sigmoidoscopy 2018 Pneumococcal Vaccine: Pediatrics (0 to 5 Years) and At-Risk Patients (6 to 64 Years) (2 - PCV) 07/27/2021 07/27/2020 Influenza Vaccine (FLU shot) (#1) 2022 11/16/2013, 03/03/2013, 10/31/2012, Additional history exists GARDASIL-HPV IMMUNIZATION SERIES Aged Out No longer eligible based on patient's age to complete this topic MENINGOCOCCAL (MENACTRA/MENVEO) Aged Out No longer eligible based on patient's age to complete this topic documented as of this encounter Medical Devices Not on filedocumented as of this encounter Care Teams Acidizer Water Well Relationship Specialty Start Date End Date Louis Hale MD [address] [address] PCP - General Family Medicine 09/10/22 documented as of this encounter
--- OUTSIDE RECORDS SUMMARY | 2023-03-04 23:42 | External Medical Summary | Summary of Care ---
Author Name Unknown Organization [facility] Address [address] [place] [address] Phone [phone] Care Team Providers Care Fisheries Diver Name Role Phone Louis Hale MD Primary Care Provider [phone] Reason for Visit * Reason Onset Date Comments Referral 02/13/2023 MS Encounter Details Date Type Department Care Team ([facility] st Contact Info) Description [facility] [address] [place] [address] Terra Morgan MD [address] [place] [address] Referral (MS) Allergies Active Allergy [...] MEDICATION USE AGREEMENT 07/26/2008 Overview: Managed by [employer]. To view the Medication Usage Agreement, go [...] Encounter - Bety Hallman OSA - 02/13/2023 1:37 PM EST Scheduled Cannot leave message no mailbox set up * Telephone Encounter - Bety Hallman OSA - 02/13/2023 9:38 AM EST Pt needs an appt in [place] due to no transportation. He uses local transport services. Nothing coming up for 2023. Please advise documented in this encounter Plan of Treatment Upcoming Encounters Date Type Department Care Team (Late st Contact Info) Description 06/11/2023 4:25 PM EDT Telemedicine Neurology, [place] [address] [place] [address] Lan Younger MD [address] [place] [address] Health Maintenance Due Date Last Done Comments [...] filedocumented as of this encounter Care Teams Fisheries Diver Relationship Specialty Start Date End Date Louis Hale MD [address] [address] PCP - General Family Medicine 09/10/22 documented as of this encounter
--- OUTSIDE RECORDS SUMMARY | 2023-03-04 23:42 | External Medical Summary | Continuity of Care Document ---
Author Name Unknown Organization [facility] [address] [place] [address] [address] [place] [phone] Care Team Providers Care Submarine Element Coordinator Name Role Phone Louis Hale Primary Care Physician [phone] Encounter [facility] [id number] Date(s): 02/12/23 - 02/12/[address] [facility] [address] [place] [phone] Encounter Diagnosis Foot pain, bilateral(Discharge Diagnosis) - 02/12/23 Onychomycosis(Discharge Diagnosis) - 02/12/23 Multiple sclerosis(Discharge Diagnosis) - 02/12/23 Depression(Discharge Diagnosis) - 02/12/23 Fecal incontinence(Discharge Diagnosis) - 02/12/23 Hypercalcemia(Discharge Diagnosis) - 02/12/23 Left leg DVT(Discharge Diagnosis) - 02/12/23 MS (multiple sclerosis)(Discharge Diagnosis) - 02/12/23 Muscle spasm(Discharge Diagnosis) - 02/12/23 Vitamin D deficiency(Discharge Diagnosis) - 02/12/23 Discharge Disposition: Home or Self Care Attending Physician: MD Mariza, Leslie Singh Allergies, Adverse Reactions, Alerts Substance Reaction Severity Status aspirin Hives Active Assessment and Plan Extracted from: Title:Office Visit Note Author:DO Liz Audrey Date:02/12/23 1.Foot pain, bilateral Given significant onychomycosis and foot pain, ordered right foot XR 3 view and placed consult to podiatry. Some suspicion of foot fracture given non weight bearing status. Will f/u in 1 month 2.Onychomycosis 3.Multiple sclerosis Patient needs neurologist for his MS, placed neurology consult. Medications cinacalcet 30 mg oral tablet Start: 02/12/23 10:49:00 EST, 1 tab, PO, bid, Disp# 180 tab, Refills: 1, Pharmacy: [id number] Start Date: 02/12/23 Stop Date: 08/11/23 Status: Ordered Eliquis 5 mg oral tablet Start: 04/01/22 9:22:00 EST, 1 tab, PO, bid, Disp# 180 tab, Refills: 1, [id number] Start Date: 04/01/22 Stop Date: 09/28/22 Status: Ordered FLUoxetine 20 mg oral capsule Start: 02/12/23 10:48:00 EST, 1 cap, PO, Daily, Disp# 30 cap, Refills: 2, Pharmacy: [id number] Start Date: 02/12/23 Stop Date: 05/13/23 Status: Ordered naproxen 500 mg (as sodium) oral tablet, extended release Start: 02/12/23 10:47:00 EST, 1 tab, PO, Daily, Disp# 10 tab, Take with food do not chew or break tablets, PRN: as needed for inflammation, [id number] Start Date: 02/12/23 Stop Date: 02/22/23 Status: Ordered tiZANidine 2 mg oral tablet Start: 04/01/22 9:22:00 EST, 1 tab, PO, Daily, Disp# 20 tab, PRN: muscle spasm, Pharmacy: [id number] Start Date: 04/01/22 Stop Date: 05/01/22 Status: Ordered Vitamin D3 1000 intl units (25 mcg) oral capsule Start: 04/01/22 9:22:00 EST, 1 cap, PO, Daily, Disp# 90 cap, Refills: 1, [id number] Start Date: 04/01/22 Stop Date: 09/28/22 Status: Ordered Mental Status 02/12/23 Barriers to Learning one year None evide nt Mandatory Health Literacy Documentation Yes Health Literacy Communication Barriers N ever Primary Language Danish Problem List Condition Confirmation Course Effective Dates Status H ealth Status Informant Left leg DVT Confirmed Active Vitamin D deficiency Confirmed Active Depression Confirmed Active Hypercalcemia Confirmed Active Fecal incontinence Confirmed Active MS (multiple sclerosis) Confirmed Active Muscle spasm Confirmed Active Tobacco user Confirmed Active Diagnosis Diagnosis Type Effective Dates Health Status Clinical Service Informant Multiple sclerosis Discharge Diagnosis 02/12/23 Non-Specified Depression Discharge Diagnosis 02/12/23 Non-Specified Left leg DVT Discharge Diagnosis 02/12/23 Non-Specified MS (multiple sclerosis) Discharge Diagnosis 02/12/23 Non-Specified Fecal incontinence Discharge Diagnosis 02/12/23 Non-Specified Hypercalcemia Discharge Diagnosis 02/12/23 Non-Specified Muscle spasm Discharge Diagnosis 02/12/23 Non-Specified Vitamin D deficiency Discharge Diagnosis 02/12/23 Non-Specified Foot pain, bilateral Discharge Diagnosis 02/12/23 Non-Specified Onychomycosis Discharge Diagnosis 02/12/23 Non-Specified Procedures Procedure Date Related Diagnosis Body Site Status Chest X-ray 1 05/01/[address] of head 2 05/01/[address] of abdomen and pelvis wit h contrast 3 01/11/22 Completed MRI of brain 4 10/07/21 Completed MRI of cervical spine 5 10/07/21 C ompleted MRI of thoracic spine 6 10/07/21 C ompleted 1Impression: No acute chest disease 2Impression: No acute intracranial hemorrhage, no evidence of acute territorial infarction or other acute intracranial disease process 3Impression: 1. Large/staghorn nonobstructing left renal calculi as above. These have significantly increased insize as compared to 2019 and cause fullness of the left renal collecting system. There is urothelial thickening in the left renal pelvis with surrounding inflammation. This may simply be related to the presence of large calculi. Correlate with urinalysis for evidence of superimosed urinary tract infection. 2. Additional smaller calculi are seen bilaterally. No ureteral stone is seen. 3. Cholelithiasis 4. Rectosigmoid fecal retention and mild to moderate constipation 5. Additional findings as above. 41. Compared to the previous examination, there is no significant interval change with no acute intracerebral pathology. 2. Extensive white matter T2 hyperintense foci and increase foci on FLAIR weighted imaging is againseen and essentially unchanged. 3. There are no enhancing plaques present with no MR evidence for active demyelination. 4. Mild cerebral cortical atrophy is again seen. 5Compared to the previous study, there is normal signal identified within the spinal cord with no enhancing plaques demonstrated. 6Minimal increased signal is again seen at the T6-7 level with minimal enhancement present followingcontrast administration characteristic of an active plaque. Vital Signs Most recent to oldest [Reference Range]: 1 Temperature [36.5-37.9 DegC] 36.7 DegC (02/12/23 10:21 AM) Heart Rate 97 bpm (02/12/23 10:21 AM) Respiratory Rate 18 br/min (02/12/23 10:21 AM) Blood Pressure 118/80mmHg (02/12/23 10:21 AM) Cuff Pulse Pressure 38 mmHg (02/12/23 10:21 AM) Social History Social History Type Response Smoking Status Never smoked cigaret alfred Sex FCM Outpt Note * MD Dawkins Amy L: MODIFY MD Dawkins Amy L: MODIFY Event Display: FCM Outpt Note Authored Date: Chief Complaint throbbing pain in both feet x 2 months History of Present Illness 47yo Male here for b/l throbbing foot pain. Right foot ache all the time, left foot delayed pain Pain throughout both feed, no specific tenderpoint, mainly across top of foot, thumping pain on both big toes PMH: MS, L leg DVT, hypercalcemia, left side delay lacking feeling occasionally No change in medications, no injuries, no rashes. Not using to help with the pain Needs a new neurologist in [facility] Tylenol helps with pain in feet a bit Physical Exam Vitals & Measurements T:36.7C HR:97(Monitored) RR:18 BP:118/80 SpO2:95% PHQ2 Data(Data Documented on:02/12/2023 10:19) Emotional health assessment NEGATIVE General: wheel chair bound well appearing Resp: normal respiratory effort Skin: dry skin noted on b/l feet, onychomycosis noted on b/l 1st toes and 2nd toes Extremities: some pain on pal ankle, pain on palpation around right medial and lateral ankle, pain on palpation of top of right foot, area of erythema on top of right foot and on DIP on toes 1-4 2/2 abrasion from sock Assessment/Plan 1.Foot pain, bilateral Given significant onychomycosis and foot pain, ordered right foot XR 3 view and placed consult to podiatry. Some suspicion of foot fracture given non weight bearing status. Will f/u in 1 month 2.Onychomycosis 3.Multiple sclerosis Patient needs neurologist for his MS, placed neurology consult. Attestation Attestation -I discussed and evaluated this patient with Dr. Liz. Discussed possibility of osteoporosis, due to non-weight bearing, which could put him at risk for stress fx. The assessment and plan was developed with her and carried out at my direction. I have read and agree with her note. Problem List/Past Medical History Ongoing Depression Fecal incontinence Hypercalcemia Left leg DVT MS (multiple sclerosis) Muscle spasm Tobacco user Vitamin D deficiency Procedure/Surgical History CT of head (05/01/2022)Chest X-ray (05/01/2022)CT of abdomen and pelvis with contrast (01/11/2022)MRI of thoracic spine (10/07/2021)MRI of brain (10/07/2021)MRI of cervical spine (10/07/2021) Medications apixaban(Eliquis 5 mg oral tablet), 5 mg= 1 tab, PO, bid, 1 refills cholecalciferol(Vitamin D3 1000 intl units (25 mcg) oral capsule), 25 mcg= 1 cap, PO, Daily, 1 refills cinacalcet(cinacalcet 30 mg oral tablet), 30 mg= 1 tab, PO, bid, 1 refills FLUoxetine(FLUoxetine 20 mg oral capsule), 20 mg= 1 cap, PO, Daily, 2 refills naproxen(naproxen 500 mg (as sodium) oral tablet, extended release), 500 mg= 1 tab, PO, Daily, PRN tiZANidine(tiZANidine 2 mg oral tablet), 2 mg= 1 tab, PO, Daily, PRN Allergies aspirinHives Social History Smoking Status Never smoked cigarettes Alcohol Use:Current Type:Beer Frequency:1-2 times per week Employment/School Status:Unemployed Exercise Times per week:3-4 times/week Home/Environment Lives with:Father Nutrition/Health Type of diet:Regular Sexual Sexually active:No Substance Abuse - No Risk Tobacco Use:Never smoker Type:Oral Family History Seizure: Father. Health Status Family Member(s) Mother: History is negative Sister: History is unknown Brother: History is unknown Recommendations Health Maintenance Pending(in the next year) OverDue Adult Influenza Vaccine due08/30/22and every 1year Due Adult COVID-19 Vaccination due02/12/23Unknown Frequency Adult Tdap/Td Vaccine due02/12/23Unknown Frequency Body Mass Index due02/12/23Unknown Frequency Colorectal Cancer Screening due02/12/23Unknown Frequency Hepatitis C Screening due02/12/23One-time only Pneumococcal Vaccine Adults and Adolescents with Chronic Illness due02/12/23One-time only Satisfied(in the past 1 year) There are no satisfied recommendations within the defined date range Electronic Signature on File Electronically Reviewed/Signed by: Frieda Liz DO Author Signature Dt/Tm:02/12/2023 11:54 AM Resident Department of Family Medicine Electronically Reviewed/Signed by: Leslie Dawkins MD Cosigner Signature Dt/Tm: 02/12/2023 08:52 PM [facility] [address], [address] [place] [address] AD Patient Care team information Care Team Personnel Name: MD Geoffrey, Louis Position: Physician - Family Med Member Role: Primary Care Provider Address: Address: [address] [place] [address]
--- OUTSIDE RECORDS SUMMARY | 2023-03-04 23:42 | External Medical Summary | Summary of Care ---
Author Name Unknown Organization [facility] Address [address] [place] [address] Phone [phone] Care Team Providers Care Sexual Assault Nurse Name Role Phone Louis Hale MD Primary Care Provider [phone] Reason for Visit * Reason Onset Date Comments Referral 02/13/2023 MS Encounter Details Date Type Department Care Team ([facility] st Contact Info) Description [facility] [address] [place] [address] Terra Morgan MD [address] [place] [address] Referral (MS) Allergies Active Allergy [...] MEDICATION USE AGREEMENT 07/26/2008 Overview: Managed by [facility]. To view the Medication Usage Agreement, go [...] AM EST Pt needs an appt in [place] due to no transportation. He uses local [...] filedocumented as of this encounter Care Teams Sexual Assault Nurse Relationship Specialty Start Date End Date Louis Hale MD [address] [address] PCP - General Family Medicine 09/10/22 documented as of this encounter
--- OUTSIDE RECORDS SUMMARY | 2023-03-04 23:42 | External Medical Summary | Summary of Care ---
Author Name Unknown Organization [facility] Address [address] [place] [address] Phone [phone] Care Team Providers Care Developmental Education Instructor Name Role Phone Louis Hale MD Primary Care Provider [phone] Reason for Visit * Reason Onset Date Comments Referral 02/13/2023 MS Encounter Details Date Type Department Care Team ([facility] st Contact Info) Description [facility] [address] [place], [place] [phone] Terra Morgan MD [address] [place] [address] Referral (MS) Allergies Active Allergy Reactions Criticality Noted Date Comments Salicylates Edema airway High 07/20/2006 Hives as well documented as of this encounter (statuses as of 02/18/2023) Medications Medication Sig Dispensed Refills Start Date End Date Status ocrelizumab (OCREVUS) 300 MG/10ML SOLN Administer intravenously. 0 Active Vitamin D, Cholecalciferol, 400 units CAPS Takes 2 tablets daily. 60 Cap 3 12/10/2018 Active documented as of this encounter (statuses as of 02/18/2023) Active Problems Problem Noted Date Diagnosed Date [...] as of this encounter (statuses as of 02/18/2023) Resolved Problems Problem Noted Date Diagnosed Date Resolved Date TERMINATED MEDICATION USAGE AGREEMENT 09/08/2008 09/25/2008 MEDICATION USE AGREEMENT 07/26/2008 Overview: Managed by [facility]. To view the Medication Usage Agreement, go to Action, Patient Files. documented as of this encounter (statuses as of 02/18/2023) Immunizations Name Administration Dates Next Due Seasonal [...] Telephone Encounter - Bety Hallman OSA - 02/18/2023 1:13 PM EST Sent letter * Telephone Encounter - Bety Hallman OSA - 02/13/2023 1:37 PM EST Scheduled Cannot leave message no mailbox set up * Telephone Encounter - Bety Hallman OSA - 02/13/2023 9:38 AM EST Pt needs an appt in [place] due to no transportation. He uses local transport services. Nothing coming up for 2023. Please advise documented in this encounter Plan of Treatment Upcoming Encounters Date Type Department Care Team (Late st Contact Info) Description 06/11/2023 4:25 PM EDT Telemedicine Neurology, [place] [address] [place] [address] Lan Younger MD [address] [place] [address] Health Maintenance Due Date Last [...] filedocumented as of this encounter Care Teams Developmental Education Instructor Relationship Specialty Start Date End Date Louis Hale MD [address] [place] [address] PCP - General Family Medicine 09/10/22 documented as of this encounter
[2023-03-05] MEDS: MoRPHine SULFATE 2 MG/ML CARP IV PRN ×3 (02:56→11:45)
[2023-03-05 02:58] LABS: Appearance Urine Clear (Clear); Bacteria Urine Automated Negative (Negative); Bilirubin Urine Negative (Negative); Blood Urine 2+ (Negative); Color Urine Yellow; Epithelial Cell Urine Auto 20-30 /lpf (0-5); Glucose Urine UA Negative (Negative); Ketones Urine 1+ (Negative); Leukocyte Esterase Urine Negative (Negative); Nitrite Urine Negative (Negative); Protein Urine 1+ (Negative); RBC Urine Automated >30 /hpf (0-4); Urobilinogen Urine Negative (Negative); pH Urine 6.5 (4.5-7.5)
[2023-03-05 07:23] LABS: Anion Gap 7 (3-11); BUN Creatinine Ratio 12.2 (10-20); Blood Urea Nitrogen 12 mg/dl (6-23); C Reactive Protein < 0.50 mg/dl (0-0.5); Calcium 9.4 mg/dl (8.6-10.3); Carbon Dioxide 21 mmol/L (21-32); Chloride 109 mmol/L (98-107); Est GFR (African American) 104.5 ml/min; Est GFR (Non-African American) 90.2 ml/min; Glucose 76 mg/dl (70-99(Fasting)); Potassium 3.7 mmol/L (3.5-5.1); Sodium 137 mmol/L (136-145)
[2023-03-05 07:28] LABS: Basophils # (auto) 0.04 K/uL (0.00-0.20); Basophils % (auto) 0.6 %; Eosinophils # (auto) 0.09 K/uL (0.00-0.50); Eosinophils % (auto) 1.3 %; Hemoglobin 14.8 g/dl (14.0-18.0); Immature Granulocytes # (auto) 0.05 K/uL (0.01-0.20); Immature Granulocytes % (auto) 0.7 %; Lymphocytes # (auto) 1.43 K/uL (1.20-3.40); Lymphocytes % (auto) 20.1 %; Mean Corpuscular Hemoglobin 32.1 pg (25.0-34.0); Mean Corpuscular Hgb Conc 34.4 g/dL (32.0-36.0); Mean Corpuscular Volume 93.3 fL (80.0-100.0); Mean Platelet Volume 10.1 fL (9.4-12.4); Monocytes # (auto) 0.83 K/uL (0.11-0.59); Monocytes % (auto) 11.7 %; Neutrophils # (auto) 4.67 K/uL (1.40-6.50); Neutrophils % (auto) 65.6 %; Platelet Count 223 K/uL (130-400); RDW Coefficient of Variation 12.3 % (11.5-14.5); RDW Standard Deviation 42.2 fL (36.4-46.3); Red Blood Count 4.61 M/uL (4.70-6.10); White Blood Count 7.11 K/ul (4.8-10.8)
[2023-03-05] MEDS: APIXABAN 5 MG TABLET PO SCH ×2 (07:43→21:23)
[2023-03-05] MEDS: FLUoxetine HCL 20 MG CAP PO SCH (07:43)
--- NOTE | 2023-03-05 08:02 | Urology Progress Note ---
<Statement entered by Sammy Goodwin MD - 03/05/23 12:35> I have discussed Mr. Ramirez's case with AISSATOU Hernandez and agree with the above documentation. No indication for urgent urologic intervention. He will likely require either multiple staged procedures to address kidney stone or possible referral to a center for percutaneous nephrolithotomy. These can be coordinated as an outpatient. -Sammy Goodwin MD. Date of Service March 05, 2023 Assessment & Plan (1) Staghorn calculus: Plan: Follow-up of left staghorn calculus Afebrile, VS and labs stable Patient asymptomatic, no flank pain UA was not suggestive of infection, on antibiotics for cellulitis No acute intervention at this time We discussed outpatient follow-up to discuss definitive stone management All questions answered Will arrange outpatient f/u with our service will sign off Admission and Anticipated Discharge Date Admission Date: March 04, 2023 Subjective Patient seen and examined at bedside this morning, chart reviewed No acute issues overnight, denies flank pain Voiding spontaneously, no dysuria Notes occasional dark-colored urine, but no gross hematuria No nausea or vomiting No fever or chills Review of Systems Constitutional: as per Subjective / HPI Gastrointestinal: as per Subjective / HPI Genitourinary: + as per Subjective / HPI Physical Exam Constitutional: well developed and well nourished; no acute distress Neck: normal visual inspection Respiratory: normal respiratory effort; no respiratory distress and no labored breathing Gastrointestinal (Abdomen): Inspection/Auscultation: abdomen normal to inspection Percussion/Palpation: abdomen soft; abdomen nontender Musculoskeletal: Head/Neck/Chest: normocephalic Neurologic: awake Psychiatric: Orientation: alert and oriented x 3 Genitourinary: no CVA tenderness Results & Data Vital Signs (Past 12 Hours) Vital Signs Temp Pulse Pulse Pulse Resp BP BP 03/05/23 07:29 36.4 C L 59 L 16 115/66 03/04/23 23:30 36.5 C 65 16 139/85 03/04/23 21:52 71 16 122/86 03/04/23 20:50 76 15 03/04/23 20:40 71 13 03/04/23 20:31 83 21 03/04/23 20:31 127/79 03/04/23 20:30 67 17 03/04/23 20:20 85 15 03/04/23 20:10 80 16 03/04/23 20:00 140/74 03/04/23 20:00 74 16 Pulse Ox O2 Del Method 03/05/23 07:29 96 Room Air 03/04/23 23:30 97 Room Air 03/04/23 21:52 94 Room Air 03/04/23 20:50 03/04/23 20:40 03/04/23 20:31 03/04/23 20:31 03/04/23 20:30 03/04/23 20:20 03/04/23 20:10 03/04/23 20:00 03/04/23 20:00 PG Care Time/CCT Total # of Minutes Spent Total Time Spent with Patient: Total time spent is greater than 50% in coordination of care (as documented) at patient's floor/unit and/or counseling patient: Coding Level of Care Code 06401 SUB INP/OBS CARE 1/25MIN Diagnoses Staghorn calculus N20.0
[2023-03-05] MEDS: HYDROCODONE/ACETAMOPHEN 5/325MG TAB PO PRN ×3 (15:39→23:41)
--- NOTE | 2023-03-05 17:24 | Hospitalist Progress Note ---
Date of Service March 05, 2023 Assessment & Plan (1) Cellulitis: Plan: Gluteal cleft erysipelas-very mild, no evidence of sepsis With history of incontinence to stool Patient has a daily caregiver which can normally help him at home however due to his buttock pain and limitations due to his acute cellulitis current needs exceed daily caregiver ability On exam gluteal cleft with bright red very tender demarcated erythema without purulence or ulceration. Suspicious for erysipelas, patient treated with ceftriaxone/vancomycin. Given no purulence/abscess vancomycin discontinued and Rocephin continued CTA/P without evidence of deeper cellulitis/abscess. Staghorn calculi of the left kidney with mild left-sided hydro is noted, urology consulted. Bladder wall is thickened, patient is covered empirically with antibiotics as noted and denies urinary symptoms. CRP added and trended-remains undetectable -Continue ceftriaxone and Will discharged home on cephalexin -Discontinue IV morphine and start hydrocodone as needed on top of Tylenol as needed (2) History of multiple sclerosis: Plan: MS, mild left hemiparesis Chronic, no change in baseline strength however limitations due to cellulitic pain limits his ability to sit and roll at home with the assistance of his caregiver PT/OT He has 24/7 caretakers at home (3) DVT (deep venous thrombosis): Plan: History of DVT On Eliquis 5 mg twice daily, continued. Patient denies acute leg swelling or shortness of breath (4) Staghorn calculus: Plan: Staghorn calculi, hydronephrosis CT has noted No RUBI Urology consulted-no acute intervention, may need referral to tertiary care facility as outpt for nephrolithotomy vs staged procedure locally for stones treatment (5) Primary hyperparathyroidism: Plan: Recommended he follow-up with endocrinology and/or ENT as previously directed Parathyroid hormone, phosphorus, vitamin D25-OH and 1, 25-OH, calcium, and magnesium levels ordered for tomorrow (6) Onychomycosis: Plan: Recommended outpatient follow-up with podiatry Plan DVT prophylaxis: Anticoagulated with Eliquis Disposition: Medical surgical continued stay but likely discharge home tomorrow CODE STATUS: Full Admission and Anticipated Discharge Date Admission Date: March 04, 2023 Subjective Patient requiring frequent morphine for pain in his bottom. Also complains of chronic what sounds like neuropathic pain in the feet and infection in the toenails which is fungus. He is okay with stopping morphine and going to hydrocodone. Admits that he has multiple family members with drug abuse and his sister overdosed. He denies any other issues and has incontinence to stool. Physical Exam Constitutional: WD/WN, vitals as above Respiratory: normal respiratory effort, lungs clear to auscultation Cardiovascular: RRR, no murmur, no edema Gastrointestinal (Abdomen): normal bowel sounds, soft, nontender, no hepatosplenomegaly Skin: + erythema (Very mild erythema in glutea l cleft superiorly, no open wounds or drainage) Great toenail and first and second on both feet with significantly thickened yellow toenails with almost complete avulsion of great toenails Neurologic: Left-sided contractures and atrophy of muscles Results & Data Results & Data Vital Signs (Past 12 Hours) Vital Signs Temp Pulse Resp BP Pulse Ox O2 Del Method 03/05/23 14:38 36.6 C 68 16 120/65 97 Room Air 03/05/23 07:29 36.4 C L 59 L 16 115/66 96 Room Air Laboratory Results CBC, BMP negative Wound culture with pinpoint growth PG Care Time/CCT Total # of Minutes Spent Total Time Spent with Patient: Total time spent is greater than 50% in coordination of care (as documented) at patient's floor/unit and/or counseling patient: Coding Level of Care Code 05076 SUB INP/OBS CARE 235MIN Diagnoses Cellulitis L03.90 History of multiple sclerosis G35 DVT (deep venous thrombosis) I82.502 Affected thrombotic vein of extremity: unspecified vein of extremity Chronicity: chronic DVT location: lower extremity Laterality: left Staghorn calculus N20.0 Primary hyperparathyroidism E21.0 Onychomycosis B35.1 (3) DVT (deep venous thrombosis) Affected thrombotic vein of extremity: unspecified vein of extremity Chronicity: chronic DVT location: lower extremity Laterality: left Qualified Code(s): I82.502 - Chronic embolism and thrombosis of unspecified deep veins of left lower extremity
[2023-03-05] MEDS ORDERED: cefTRIAXone SODIUM 2,000 MG in DEXTROSE 5 % MINI-B 50 ML IV SCH (17:30)
[2023-03-06] MEDS: HYDROCODONE/ACETAMOPHEN 5/325MG TAB PO PRN ×2 (03:39→09:48)
[2023-03-06 07:04] LABS: Albumin Globulin Ratio 1.5 (0.9-2); Albumin Level 3.9 gm/dl (3.4-5.0); BUN Creatinine Ratio 12.7 (10-20); Bilirubin,Total 0.5 mg/dl (0.2-1.0); Calcium 9.4 mg/dl (8.6-10.3); Creatinine Clr Calc Pharmacy 101.9 ml/min; Est GFR (African American) 99.6 ml/min; Est GFR (Non-African American) 85.9 ml/min; Globulin 2.6 gm/dl (2.5-4.0); Magnesium 2.1 mg/dl (1.7-2.4); Potassium 3.6 mmol/L (3.5-5.1); Total Protein 6.5 gm/dl (6.0-8.3)
[2023-03-06 07:18] LABS: Thyroid Stimulating Hormone 3.438 uIu/ml (0.300-4.500)
[2023-03-06] MEDS ORDERED: ERGOCALCIFEROL 50,000 UNITS 1250 MCG CAP PO SCH (09:30)
[2023-03-06] MEDS: APIXABAN 5 MG TABLET PO SCH (09:45)
[2023-03-06] MEDS: FLUoxetine HCL 20 MG CAP PO SCH (09:45)
[2023-03-06] MEDS ORDERED: ONDANSETRON INJ 2 MG/ML 2 ML VIAL IV PRN (11:08)
[2023-03-06] MEDS ORDERED: bisacodyL 10 MG SUPP PR STA (11:38)
--- NOTE | 2023-03-06 11:57 | Discharge Summary ---
Discharge Summary Date of Service March 06, 2023 Notes For Next Care Provider Needs follow up with Neurology, ENT, Urology, and Podiatry Medication Changes From Visit Keflex 500mg po qid x 5 days Barrier cream for gluteal cleft Vitamin D2 98965 units twice weekly x 6 weeks Admission HPI Per Admitting Provider Mazin is a 47-year-old male with a past medical history of MS with mild right hemiparesis and limited ambulation at baseline, DVT on Eliquis, rectal incontinence who presents with 24 to 36 hours of rapidly worsening severe pain at the gluteal cleft without fever/chills/sweats but which limits his limited ambulation at home and ability to self-care. Reports he is generally incontinent of stool at baseline, and sometimes has irritation at the buttocks but this seems much worse in the last 24 to 36 hours. Pain has sharply increased up to a 9/10 and is incredibly tender anytime he tries to roll over or bear weight on his low back/buttock. Denies fever, chills or rigors. No nausea/vomiting. No dysuria. No hematuria. No abdominal pain. No chest pain or shortness of breath. Reports other than the severe pain in his buttock has had no new or changing symptoms Medical History: Reviewed Medications: Reviewed Surgical History: Reviewed Family history: Reviewed Allergies: Reviewed Social History: Reviewed Code Status: Full Principal Dx & Hospital Course #1 = Principal Diagnosis (1) Cellulitis: Gluteal cleft erysipelas-very mild, no evidence of sepsis. Seems to be more likely just intertrigo from skin friction, pressure With history of incontinence to stool Patient has a daily caregiver M-F which can normally help him at home however he came to hospital due to his buttock pain On exam gluteal cleft with bright red very tender demarcated erythema without purulence or ulceration. Suspicious for erysipelas, patient treated with ceftr iaxone. Given no purulence/abscess vancomycin discontinued and Rocephin continued and will go home on Keflex po to finish out 7 days of treatment -erythema very mild and improved from previous CTA/P without evidence of deeper cellulitis/abscess. Staghorn calculi of the left kidney with mild left-sided hydro is noted, urology consulted. Bladder wall is thickened, patient is covered empirically with antibiotics as noted and denies urinary symptoms. CRP remained undetectable -while here, he frequently requested IV morphine and then hydrocodone, became constipated, nauseated--> stopped hydrocodone and gave bisacodyl [place] x 1, Zofran (2) History of multiple sclerosis: MS, mild left hemiparesis Chronic, no change in baseline strength however limitations due to cellulitic pain limits his ability to sit and roll at home with the assistance of his caregiver PT/OT He has 24/7 caretakers at home (3) DVT (deep venous thrombosis): History of DVT On Eliquis 5 mg twice daily, continued. Patient denies acute leg swelling or shortness of breath (4) Staghorn calculus: Staghorn calculi, hydronephrosis mild seen on CT No RUBI Urology consulted-no acute intervention, may need referral to tertiary care facility as outpt for nephrolithotomy vs staged procedure locally for stones treatment (5) Primary hyperparathyroidism: Recommended he follow-up with endocrinology and/or ENT as previously directed Parathyroid hormone remains significantly elevated at 279, phosphorus low at 2.0,, vitamin D25-OH low at 11, and 1, 25-OH pending at time of discharge calcium 11.1 on admission and 9.4 on day of discharge magnesium level normal Started Vitamin D2 17534 units twice a week x 6 weeks-question if he will be compliant with this, but first dose at least was given while he was in hospital (6) Onychomycosis: Recommended outpatient follow-up with podiatry Plan DVT prophylaxis: Anticoagulated with Eliquis Disposition: dc to home with home health to be arranged in addition to his private waiver caregivers Pt has a long history of social issues and difficulty managing his healthcare whether it be by choice or not is debatable Discharge Exam Constitutional WD/WN, vitals as above Respiratory normal respiratory effort, lungs clear to auscultation Cardiovascular RRR, no murmur, no edema Gastrointestinal (Abdomen) normal bowel sounds, soft, nontender, no hepatosplenomegaly Skin + erythema (Very mild erythema in gluteal cleft superiorly, no open wounds or drainage) Updated Medication List Medication Instructions Recorded Confirmed Type ondansetron 4 mg disintegrating 4 mg PO Q6H PRN nausea and 02/13/23 03/04/23 Rx tablet vomiting #15 tabs tizanidine 2 mg tablet 2 mg PO DAILY PRN Muscle Spasm 02/13/23 03/04/23 History apixaban 5 mg tablet (Eliquis) 5 mg PO BID 03/04/23 03/04/23 History cinacalcet 30 mg tablet 30 mg PO BID 03/04/23 03/04/23 History fluoxetine 20 mg capsule 20 mg PO DAILY 03/04/23 03/04/23 History acetaminophen 325 mg tablet 650 mg (2 x 325 mg) PO Q4H PRN 03/06/23 Rx pain #30 tabs cephalexin 500 mg capsule 500 mg PO Q6H 5 days #20 caps 03/06/23 Rx ergocalciferol (vitamin D2) 1,250 50,000 unit PO TuFr@0900 #12 caps 03/06/23 Rx mcg (50,000 unit) capsule Hospital Stay Data Consultations 03/04/23 17:21 ED Decision to Admit Stat 03/04/23 19:10 Consult Urology Routine Diagnostic Imagining Performed 03/04/23 14:27 CT abd pelvis IV con only Stat Pending Results Patient Have Any Pending Studies at Discharge: Yes (Vitamin D 1,25-OH level) Discharge Instructions Given to Patient (Per Discharging Provider) Please finish out 5 more days of the antibiotic called cephalexin, four times a day for the skin infection in your bottom. Continue to apply the barrier cream between your butt cheeks twice a day or as needed if it is washed off. You can take acetaminophen as needed for pain. Your vitamin D level is severely low and you were started on Vitamin D to be taken twice a week for 6 weeks. You need to follow up with the ENT Surgeon to arrange for your parathyroid gland to be removed. You will need to follow up with Urology for your large kidney stones. You need to follow up with Podiatry for your toenail fungus. Total Time Total Time Spent Total Time Spent (In Minutes): 35 min Coding Level of Care Code 61040 INP/OBS DISCH >30 MIN Diagnoses Cellulitis L03.90 History of multiple sclerosis G35 DVT (deep venous thrombosis) I82.502 Affected thrombotic vein of extremity: unspecified vein of extremity Chronicity: chronic DVT location: lower extremity Laterality: left Staghorn calculus N20.0 Primary hyperparathyroidism E21.0 Onychomycosis B35.1
== END 2023-03-06 13:48 | disposition home health service (06) ==
LOC: EDINP 13:37 → ED 13:37 → SUATTDRO 17:27 → EDINP 22:12 → 3W 23:46

== ENCOUNTER 2023-05-26 15:28 | Inpatient (IN) ==
[2023-05-26 16:53] LABS: Influenza A virus by PCR Negative (Neg); Influenza B virus by PCR Negative (Neg); RSV by PCR Negative (Neg); SARS CoV2 RNA(COVID-19) Ceph NEGATIVE (Negative)
--- NOTE | 2023-05-26 17:04 | Emergency Department Note ---
History of Present Illness General Chief complaint: Illness Time Seen by Provider: 05/26/23 16:47 History of Present Illness Maximum Pain Intensity: 8 47-year-old male presents emergency department with a 1 day history of nausea vomiting diarrhea and generalized weakness. Patient has a history of MS. Patient states it has started with diarrhea last evening. Patient states generalized weakness in the right and right arm. Patient normally has weakness in the left upper extremity and left lower extremity which is unchanged. Patient does use a wheelchair and pivots using his right leg. Patient denies any specific abdominal pain denies fever denies sick contacts. Denies recent antibiotic use. Patient's had a history of the same and had multiple emergency department evaluations for similar according to the patient. Patient is followed by neurology from [facility] Dr. Orozco; there are no other mitigating or alleviating factors Home Medications Medication Instructions Recorded Confirmed Type ondansetron 4 mg disintegrating 4 mg PO Q6H PRN nausea and 02/13/23 05/26/23 Rx tablet vomiting #15 tabs tizanidine 2 mg tablet 2 mg PO DAILY PRN Muscle Spasm 02/13/23 05/26/23 History apixaban 5 mg tablet (Eliquis) 5 mg PO BID 03/04/23 05/26/23 History cinacalcet 30 mg tablet 30 mg PO BID 03/04/23 05/26/23 History fluoxetine 20 mg capsule 20 mg PO DAILY 03/04/23 05/26/23 History acetaminophen 500 mg tablet 1,000 mg PO Q6H PRN PAIN/FEVER 05/26/23 05/26/23 History (Tylenol Extra Strength) Allergies Allergy/AdvReac Type Severity Reaction Status Date / Time aspirin Allergy Severe airway Verified 03/04/23 19:11 edema; hives Past Med/Surg History Medical History Onychomycosis Osteoporosis CKD (chronic kidney disease) H/O poor personal hygiene Primary hyperparathyroidism Left leg pain Weakness Multiple sclerosis exacerbation Obstructive uropathy 2/2 renal stone, caused RUBI, pt admitted for this and hypercalcemia 05/2018 Hyperparathyroidism Hypercalcemia Chronic pain syndrome Seizure disorder Many years ago may have had single episode, pt was never treated for this, no reoccurrence. 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 current occupational status: disabled How many Children do You have: 2 Feels Safe at Home: Yes Assistive Devices: Cane, Hospital Bed, Walker and Wheelchair Review of Systems A total of 10 systems reviewed and were otherwise negative Constitutional: + weakness Cardiovascular: no chest pain Gastrointestinal: + nausea and + diarrhea/loose stools Physical Exam Vital Signs Vital Signs - 24 hr 05/26/23 15:50 05/26/23 18:20 05/26/23 18:21 Temperature 37.2 C Temperature Source Temporal Artery Scan Pulse Rate 119 H 99 H 101 H Respiratory Rate 14 24 Blood Pressure 142/60 H 133/88 Blood Pressure Mean 87 103 Pulse Oximetry 98 97 Oxygen Delivery Method Room Air Room Air Sepsis Recent Fever Within 48 Hours No Sepsis New/Unexplained Change in Mental Status No Sepsis Action Taken by Nursing No Action Required 05/26/23 18:30 Temperature Temperature Source Pulse Rate 92 H Respiratory Rate 21 Blood Pressure 140/90 Blood Pressure Mean 106 Pulse Oximetry 96 Oxygen Delivery Method Room Air Sepsis Recent Fever Within 48 Hours Sepsis New/Unexplained Change in Mental Status Sepsis Action Taken by Nursing GENERAL: Patient is awake alert in no acute distress patient is resting comfortably and showing no signs of anxiety EYES: The conjunctivae are clear. The pupils are round and reactive. EARS, NOSE, MOUTH AND THROAT: The nose is without any evidence of any deformity. Mucous membranes are moist. Tongue is midline. NECK: The neck is nontender and supple. RESPIRATORY: Normal respiratory effort is noted there is no evidence of wheezing rhonchi or rales CARDIOVASCULAR: Tachycardic, regular rhythm GASTROINTESTINAL: The abdomen is soft. Abdomen is nontender. PELVIS: The Pelvis is stable. No tenderness to palpation is noted. BACK: No midline tenderness or or step-off noted range of motion in flexion extension as well as rotation no signs of muscle spasm noted MUSCULOSKELETAL/EXTREMITIES: Patient has extreme weakness to the left upper and left lower extremity he has a clenched hand in the left upper extremity which he states that this is chronic for him. Patient does have mild weakness but has 5 out of 5 strength and 4 out of 5 strength in the right upper and right lower extremities patient is able to stand and pivot onto the bed. SKIN: There is no obvious evidence of any rash. There are no petechiae, pallor or cyanosis noted. NEUROLOGIC: Patient is awake alert and oriented x3 Course Reevaluation(s) Reevaluation #1: Patient started on IV fluids, IV antibiotics, patient remained hemodynamically stable in the emergency department Time: 19:53 Consultations Consultation #1: Spoke with [facility] neurology regarding this patient's presentation and a consult for the use of IV Solu-Medrol. It is not recommended for this patient to receive IV Solu-Medrol per neurology Time: 17:43 Consultation #2: [facility] Time: 19:53 Administered Medications Discontinued Medications Sodium Chloride (Nss) 1,000 mls @ 999 mls/hr IV .Q1H1M MANJINDER Stop: 05/26/23 19:00 Last Admin: 05/26/23 18:13 Dose: 999 mls/hr Documented By: Infusion: 05/26/23 18:13 Dose: Infused Documented By: Admin: 05/26/23 17:20 Dose: 999 mls/hr Documented By: MAXIME Sodium Chloride (Nss) 1,000 mls @ 999 mls/hr IV .Q1H1M ONE Stop: 05/26/23 18:59 Last Admin: 05/26/23 18:14 Dose: 999 mls/hr Documented By: ALY Acetaminophen (Ofirmev) 1,000 mg in 100 mls @ 400 mls/hr IV NOW STA Stop: 05/26/23 18:35 Last Admin: 05/26/23 18:27 Dose: 400 mls/hr Documented By: ALY Critical Care Time Critical Care Time: Yes Total Critical Care Time: 40 I have personally spent greater than 40 minutes of critical care time in the direct management of this patient. This includes bedside care, interpretation of diagnostic studies, and testing, discussion with consultants, patient, and family members, and other required patient management activities. These minutes are in excess of all separately billable procedures. Medical Decision Making Medical Records Attestation: I reviewed the patient's medical records. Home Medications Current Medication List: was personally reviewed by nv Laboratory Data Attestation: I reviewed the patient's lab results. Labs interpreted by me patient has leukocytosis and an elevated lactic acid level 05/26/23 16:44 05/26/23 16:44 Lab Results 05/26/23 05/26/23 05/26/23 Range/Units 15:59 16:44 17:15 WBC 22.03 H (4.8-10.8) K/ul RBC 5.12 (4.70-6.10) M/uL Hgb 16.5 (14.0-18.0) g/dl Hct 47.5 (42.0-52.0) % MCV 92.8 (80.0-100.0) fL MCH 32.2 (25.0-34.0) pg MCHC 34.7 (32.0-36.0) g/dL RDW Std Deviation 43.4 (36.4-46.3) fL RDW Coeff of Bret 12.6 (11.5-14.5) % Plt Count 244 (130-400) K/uL MPV 9.3 L (9.4-12.4) fL Immature Gran % (Auto) 1.0 % Neut % (Auto) 85.0 % Lymph % (Auto) 4.9 % [place] % (Auto) 8.9 % Eos % (Auto) 0.0 % Baso % (Auto) 0.2 % Neut # (Auto) 18.69 H (1.40-6.50) K/uL Lymph # (Auto) 1.09 L (1.20-3.40) K/uL [place] # (Auto) 1.96 H (0.11-0.59) K/uL Eos # (Auto) 0.01 (0.00-0.50) K/uL Baso # (Auto) 0.05 (0.00-0.20) K/uL Immature Gran # (Auto) 0.23 H (0.01-0.20) K/uL PT 10.1 (9.0-12.0) Seconds INR 0.9 (0.9-1.1) APTT 26 (21-31) Seconds PTT Ratio 0.9 Sodium 134 L (136-145) mmol/L Potassium 3.4 L (3.5-5.1) mmol/L Chloride 104 (98-107) mmol/L Carbon Dioxide 17 L (21-32) mmol/L Anion Gap 13 H (3-11) BUN 9 (6-23) mg/dl Creatinine 1.02 (0.6-1.4) mg/dl Est Cr Clr Drug Dosing Not Reportable Est GFR ( Amer) 99.6 ml/min Est GFR (Non-Af Amer) 85.9 ml/min BUN/Creatinine Ratio 8.8 L (10-20) Glucose 101 H (70-99(Fasting)) mg/dl Lactate 2.9 H* (0.4-2.0) mmol/L Calcium 11.4 H (8.6-10.3) mg/dl Magnesium 2.2 (1.7-2.4) mg/dl Total Bilirubin 0.9 (0.2-1.0) mg/dl AST 17 (13-39) U/L ALT 26 (7-52) U/L Alkaline Phosphatase 74 (34-104) U/L Total Protein 7.9 (6.0-8.3) gm/dl Albumin 4.6 (3.4-5.0) gm/dl Globulin 3.3 (2.5-4.0) gm/dl Albumin/Globulin Ratio 1.4 (0.9-2) SARS-CoV-2 (PCR) NEGATIVE (Negative) Influenza Type A (PCR) Negative (Neg) Influenza Type B (PCR) Negative (Neg) RSV (RT-PCR) Negative (Neg) 05/26/23 Range/Units 19:43 WBC (4.8-10.8) K/ul RBC (4.70-6.10) M/uL Hgb (14.0-18.0) g/dl Hct (42.0-52.0) % MCV (80.0-100.0) fL MCH (25.0-34.0) pg MCHC (32.0-36.0) g/dL RDW Std Deviation (36.4-46.3) fL RDW Coeff of Bret (11.5-14.5) % Plt Count (130-400) K/uL MPV (9.4-12.4) fL Immature Gran % (Auto) % Neut % (Auto) % Lymph % (Auto) % [place] % (Auto) % Eos % (Auto) % Baso % (Auto) % Neut # (Auto) (1.40-6.50) K/uL Lymph # (Auto) (1.20-3.40) K/uL [place] # (Auto) (0.11-0.59) K/uL Eos # (Auto) (0.00-0.50) K/uL Baso # (Auto) (0.00-0.20) K/uL Immature Gran # (Auto) (0.01-0.20) K/uL PT (9.0-12.0) Seconds INR (0.9-1.1) APTT (21-31) Seconds PTT Ratio Sodium (136-145) mmol/L Potassium (3.5-5.1) mmol/L Chloride (98-107) mmol/L Carbon Dioxide (21-32) mmol/L Anion Gap (3-11) BUN (6-23) mg/dl Creatinine (0.6-1.4) mg/dl Est Cr Clr Drug Dosing Est GFR ( Amer) ml/min Est GFR (Non-Af Amer) ml/min BUN/Creatinine Ratio (10-20) Glucose (70-99(Fasting)) mg/dl Lactate 1.5 (0.4-2.0) mmol/L Calcium (8.6-10.3) mg/dl Magnesium (1.7-2.4) mg/dl Total Bilirubin (0.2-1.0) mg/dl AST (13-39) U/L ALT (7-52) U/L Alkaline Phosphatase (34-104) U/L Total Protein (6.0-8.3) gm/dl Albumin (3.4-5.0) gm/dl Globulin (2.5-4.0) gm/dl Albumin/Globulin Ratio (0.9-2) SARS-CoV-2 (PCR) (Negative) Influenza Type A (PCR) (Neg) Influenza Type B (PCR) (Neg) RSV (RT-PCR) (Neg) Imaging Data Attestation: I personally reviewed and interpreted this imaging study as follows: My Impression: Chest x-ray interpreted by me negative for infiltrate Radiologist's Impression: Chest X-Ray 05/26/23 16:01 XR chest 1V not portable CLINICAL HISTORY: chest pain TECHNIQUE: Single frontal radiograph of the chest was obtained. Comparison: Comparison is made to chest radiograph 10/29/2022 FINDINGS: No lines and tubes are seen. The cardiomediastinal silhouette is normal. The lungs are clear. No evidence of pleural effusion or pneumothorax. IMPRESSION: No acute chest disease. ACT 112: Negative or not required by law. Electronically signed by: Benigno Munroe M.D. 05/26/2023 5:15 PM Abdomen/Pelvis CT 05/26/23 17:41 Exam(s): CT ABDOMEN + PELVIS Without Contrast EXAM: CT Abdomen and Pelvis Without Intravenous Contrast CLINICAL HISTORY: Reason for exam: diarrhea. TECHNIQUE: Axial computed tomography images of the abdomen and pelvis without intravenous contrast. CTDI is 24.82 mGy and DLP is 1359.86 mGy-cm. Automated exposure control was utilized for the study. A dose lowering technique was utilized adhering to the principles of ALARA. COMPARISON: CT 03/04/2023 FINDINGS: ABDOMEN: Liver: Unremarkable. Gallbladder and bile ducts: Cholelithiasis without cholecystitis. Pancreas: Unremarkable. Spleen: Unremarkable. Adrenals: Unremarkable. Kidneys and ureters: Similar-appearing partial staghorn calculus within the left renal pelvis with urothelial thickening along the left ureter. No ureteral stone. No hydronephrosis. Stomach and bowel: No acute abnormality along the GI tract. PELVIS: Appendix: No findings to suggest acute appendicitis. Bladder: Unremarkable. Reproductive: Unremarkable as visualized. ABDOMEN and PELVIS: Intraperitoneal space: Unremarkable. No free air. No significant fluid collection. Bones/joints: No acute fracture. Soft tissues: Unremarkable. Vasculature: Unremarkable. Lymph nodes: Unremarkable. IMPRESSION: 1. No acute abnormality along the GI tract. 2. Similar-appearing partial staghorn calculus within the left renal pelvis with urothelial thickening along the left ureter. No ureteral stone. 3. Cholelithiasis without cholecystitis. Electronically signed by: Cordell Infante MD 05/26/23 19:21 PM ECG Data Attestation: I personally reviewed and interpreted this ECG as follows: MDM Narrative Medical decision making differential diagnosis includes viral syndrome gastroenteritis gastritis dehydration electrolyte abnormality metabolic derangement sepsis, exacerbation of MS Plan is to check sepsis labs, give IV fluids I have reviewed multiple emergency department notes regarding this patient's presentation over the past 2 years in which she has MS and diarrhea Patient has an elevated white blood cell count, elevated lactate, diarrhea, the concern is for sepsis. Patient was given empiric IV antibiotics during the emergency department evaluation Patient remained hemodynamically stable. Patient will be admitted for weakness, diarrhea, sepsis I did speak with the neurologist on-call and he stated do not use steroids in this case Impression & Plan Sepsis, Generalized weakness, Diarrhea, Multiple sclerosis Discharge Plan Visit Data Chief Complaint: Illness ED Provider: Ashwin Gentile Discharge Problem: Sepsis, Generalized weakness, Diarrhea, Multiple sclerosis Patient Disposition: Admitted As Inpatient Forms Stand Alone Forms: My [facility] Prescriptions Prescriptions: No Action tizanidine 2 mg tablet 2 mg PO DAILY PRN (Reason: Muscle Spasm) ondansetron 4 mg tablet,disintegrating 4 mg PO Q6H PRN (Reason: nausea and vomiting) Qty: 15 0RF cinacalcet 30 mg tablet 30 mg PO BID fluoxetine 20 mg capsule 20 mg PO DAILY Eliquis 5 mg tablet 5 mg PO BID acetaminophen [Tylenol Extra Strength] 500 mg Tablet 1,000 mg PO Q6H PRN (Reason: PAIN/FEVER) Referrals Referrals: Louis Hale [Primary Care Provider] -
[2023-05-26 17:10] LABS: Basophils # (auto) 0.05 K/uL (0.00-0.20); Basophils % (auto) 0.2 %; Eosinophils # (auto) 0.01 K/uL (0.00-0.50); Hematocrit (blood only) 47.5 % (42.0-52.0); Hemoglobin 16.5 g/dl (14.0-18.0); Immature Granulocytes # (auto) 0.23 K/uL (0.01-0.20); Lymphocytes # (auto) 1.09 K/uL (1.20-3.40); Lymphocytes % (auto) 4.9 %; Mean Corpuscular Hemoglobin 32.2 pg (25.0-34.0); Mean Corpuscular Hgb Conc 34.7 g/dL (32.0-36.0); Mean Corpuscular Volume 92.8 fL (80.0-100.0); Mean Platelet Volume 9.3 fL (9.4-12.4); Monocytes # (auto) 1.96 K/uL (0.11-0.59); Monocytes % (auto) 8.9 %; Neutrophils # (auto) 18.69 K/uL (1.40-6.50); Platelet Count 244 K/uL (130-400); RDW Coefficient of Variation 12.6 % (11.5-14.5); RDW Standard Deviation 43.4 fL (36.4-46.3); Red Blood Count 5.12 M/uL (4.70-6.10); White Blood Count 22.03 K/ul (4.8-10.8)
--- NOTE | 2023-05-26 17:16 | XRay Report ---
XR chest 1V not portable CLINICAL HISTORY: chest pain TECHNIQUE: Single frontal radiograph of the chest was obtained. Comparison: Comparison is made to chest radiograph 10/29/2022 FINDINGS: No lines and tubes are seen. The cardiomediastinal silhouette is normal. The lungs are clear. No evid ence of pleural effusion or pneumothorax. IMPRESSION: No acute chest disease. ACT 112: Negative or not required by law. Electronically signed by: Benigno Munroe M.D. 05/26/2023 5:15 PM
[2023-05-26 17:18] LABS: Alanine Aminotransferase 26 U/L (7-52); Albumin Globulin Ratio 1.4 (0.9-2); Albumin Level 4.6 gm/dl (3.4-5.0); Alkaline Phosphatase 74 U/L (34-104); Anion Gap 13 (3-11); Aspartate Aminotransferase 17 U/L (13-39); BUN Creatinine Ratio 8.8 (10-20); Bilirubin,Total 0.9 mg/dl (0.2-1.0); Blood Urea Nitrogen 9 mg/dl (6-23); Calcium 11.4 mg/dl (8.6-10.3); Carbon Dioxide 17 mmol/L (21-32); Chloride 104 mmol/L (98-107); Est GFR (African American) 99.6 ml/min; Est GFR (Non-African American) 85.9 ml/min; Globulin 3.3 gm/dl (2.5-4.0); Glucose 101 mg/dl (70-99(Fasting)); Potassium 3.4 mmol/L (3.5-5.1); Sodium 134 mmol/L (136-145); Total Protein 7.9 gm/dl (6.0-8.3)
[2023-05-26] MEDS: SODIUM CHLORIDE 0.9% 1,000 ML IV SCH (17:20)
[2023-05-26 17:33] LABS: INR 0.9 (0.9-1.1); Partial Thromboplastin Ratio 0.9; Partial Thromboplastin Time 26 Seconds (21-31); Prothrombin Time 10.1 Seconds (9.0-12.0)
[2023-05-26 18:10] LABS: Magnesium 2.2 mg/dl (1.7-2.4)
[2023-05-26] MEDS: SODIUM CHLORIDE 0.9% 1,000 ML IV ONE (18:14)
[2023-05-26] MEDS: ACETAMINOPHEN 1,000 MG/100 ML VIAL IV STA (18:27)
--- NOTE | 2023-05-26 19:22 | CT Scan Report ---
Exam(s): CT ABDOMEN + PELVIS Without Contrast EXAM: CT Abdomen and Pelvis Without Intravenous Contrast CLINICAL HISTORY: Reason for exam: diarrhea. TECHNIQUE: Axial computed tomography images of the abdomen and pelvis without intravenous contrast. CTDI is 24.82 mGy and DLP is 1359.86 mGy-cm. Automated exposure control was utilized for the study. A dose lowering technique was utilized adhering to the principles of ALARA. COMPARISON: CT 03/04/2023 FINDINGS: ABDOMEN: Liver: Unremarkable. Gallbladder and bile ducts: Cholelithiasis without cholecystitis. Pancreas: Unremarkable. Spleen: Unremarkable. Adrenals: Unremarkable. Kidneys and ureters: Similar-appearing partial staghorn calculus within the left renal pelvis with urothelial thickening along the left ureter. No ureteral stone. No hydronephrosis. Stomach and bowel: No acute abnormality along the GI tract. PELVIS: Appendix: No findings to suggest acute appendicitis. Bladder: Unremarkable. Reproductive: Unremarkable as visualized. ABDOMEN and PELVIS: Intraperitoneal space: Unremarkable. No free air. No significant fluid collection. Bones/joints: No acute fracture. Soft tissues: Unremarkable. Vasculature: Unremarkable. Lymph nodes: Unremarkable. IMPRESSION: 1. No acute abnormality along the GI tract. 2. Similar-appearing partial staghorn calculus within the left renal pelvis with urothelial thickening along the left ureter. No ureteral stone. 3. Cholelithiasis without cholecystitis. Electronically signed by: Cordell Infante MD 05/26/23 19:21 PM
--- NOTE | 2023-05-26 21:00 | History & Physical Report ---
Date of Service May 26, 2023 Assessment & Plan (1) SIRS (systemic inflammatory response syndrome): Plan: Patient is a 47-year-old male with past medical history of MS, chronic deep vein thrombosis, primary hyperparathyroidism, and osteoporosis who presents to the hospital for evaluation of vomiting. Patient without known source of infection at this time. Patient to be admitted for fluid resuscitation for dehydration secondary to nausea and vomiting. -Admit to [facility] under observation, no indication for telemetry at this time -Patient SIRS criteria is a heart rate of greater than 90+ a white count of 22 but patient is currently without source, therefore not meeting sepsis criteria -Chest x-ray negative, blood cultures taken prior to initiation of antibiotics (pending), UA pending, patient without diarrhea present -Suspect tachycardia due to dehydration and elevated white blood cell count likely secondary to stress-induced from vomiting and dehydration -Add procalcitonin, CRP, ESR (pending) (2) Nausea and vomiting: Plan: - Based on history and physical exam, suspect foodborne illness (Staph aureus toxin) as cause of nausea and vomiting -Last episode of vomiting was at 1 PM this afternoon patient did ask for coffee prior to me leaving the room -Antiemetics as needed -Clear liquid diet and advance as tolerated -For now LR at 125 cc/h for dehydration, status post 2 boluses of NS in ED -Start on Protonix 40 mg orally daily for gastroprotection -Without abdominal pain on exam, no indication for additional imaging (3) Hypercalcemia: Plan: -Secondary to primary hyperparathyroidism plus dehydration. Mild as it is less than 12 -Recheck calcium level in a.m. with ionized calcium level to check for correction, patient is currently asymptomatic -Avoid calcium containing agents (4) Primary hyperparathyroidism: Plan: - As above, previous workup has shown elevated PTH on top of elevated calcium levels indicative of primary hyperparathyroidism (5) Chronic deep vein thrombosis (DVT) of distal vein of left lower extremity: Plan: - Continue Eliquis (6) Multiple sclerosis: Plan: - Without MS exacerbation, no indication for steroids at this time per discussion with neurology -Continue cinacalcet, tizanidine -PT and OT consulted, appreciate recommendations Plan Disposition: Admit to [facility] for IV fluids and symptom control DVT prophylaxis: Eliquis Diet: Clear liquids and advance as tolerated with IV LR at 125 cc/h CODE STATUS: Full code as discussed with patient History of Present Illness Chief Complaint: Vomiting Primary Care Provider: Agustolili Geoffrey Patient is a 47-year-old male with past medical history of MS, chronic deep vein thrombosis, primary hyperparathyroidism, and osteoporosis who presents to the hospital for evaluation of vomiting. It seems since yesterday, patient has had 7 episodes of vomiting that started at approximately 6 PM on 05/25/2023. His last episode of vomiting occurred at 1 PM at 05/26/2023. He does recall having an Egg McMuffin from [employer] on the morning his symptoms started. Nobody else at home seems to be having symptoms. Denies any episodes of diarrhea or having a bowel movement within the past 24 hours. Occasionally is nauseous but is not currently nauseous now. He was having difficulty with keeping down fluids over the past 12 hours since his symptoms have started which was the biggest reason for coming to the emergency room tonight. In terms of his MS, patient chronically has left-sided weakness more so in the left lower extremity than the upper extremity that has been worse since this had started. He is typically wheelchair-bound and today was unable to pivot on his left side indicating to him that he is getting somewhat weaker since this started. No recent travel. No abdominal pain but does have the sensation of abdominal fullness. No other complaints at this time ED course: Patient evaluated by provider. CT scan of the abdomen pelvis without new abnormalities noted. Blood work indicative of elevated white blood cell count of 22, sodium of 134, potassium 3.4, anion gap of 13, initial lactate of 11.4 that was rechecked after fluid resuscitation and decreased to 1.5, urinalysis ordered but not collected at time of writing this note. Chest x-ray taken without any evidence of acute process. Emergency department concern for sepsis, so hospitalist service was consulted for further management recommendations. Patient was given IV fluids as well as an initial dose of Zosy n. Allergies Allergy/AdvReac Type Severity Reaction Status Date / Time aspirin Allergy Severe airway Verified 03/04/23 19:11 edema; hives Home Medications Medication Instructions Recorded Confirmed Type ondansetron 4 mg disintegrating 4 mg PO Q6H PRN nausea and 02/13/23 05/26/23 Rx tablet vomiting #15 tabs tizanidine 2 mg tablet 2 mg PO DAILY PRN Muscle Spasm 02/13/23 05/26/23 History apixaban 5 mg tablet (Eliquis) 5 mg PO BID 03/04/23 05/26/23 History cinacalcet 30 mg tablet 30 mg PO BID 03/04/23 05/26/23 History fluoxetine 20 mg capsule 20 mg PO DAILY 03/04/23 05/26/23 History acetaminophen 500 mg tablet 1,000 mg PO Q6H PRN PAIN/FEVER 05/26/23 05/26/23 History (Tylenol Extra Strength) Past Med/Surg History Medical History Onychomycosis Osteoporosis CKD (chronic kidney disease) H/O poor personal hygiene Primary hyperparathyroidism Left leg pain Weakness Multiple sclerosis exacerbation Obstructive uropathy 2/ renal stone, caused RUBI, pt admitted for this and hypercalcemia 05/2018 Hyperparathyroidism Hypercalcemia Chronic pain syndrome Seizure disorder Many years ago may have had single episode, pt was never treated for this, no reoccurrence. Depression Multiple sclerosis Surgical History History of cystoscopy WITH STENT PLACEMENT 06/14/18 [facility] Family History Father Stroke Thyroid disorder Other Hypertension Kidney stones Social History Smoking Status: Never smoker Tobacco Type: Smokeless Tobacco (Dip or Chew) Cigarettes Per Day: 0; Second Hand Exposure: No; Do You Dip or Chew Tobacco: Yes; Tobacco Cessation Education Requested by Patient: No Hx Alcohol Use: Yes Alcohol type: beer Hx Substance Use: No Preferred Language: Afghan Communication Ability: Effective Rn Postpartum Required: No Beliefs That Will Affect Care: None marital status: Current Living Situation: Parent Current Living Situation Comment: lives with father at home current occupational status: disabled How many Children do You have: 2 Other Information That Helps Us Care for You: No Feels Safe at Home: Yes Safety Concerns: Feels Safe At This Time Assistive Devices: Hospital Bed and Wheelchair Review of Systems Review of Systems: All systems reviewed & are unremarkable except as noted in HPI & below Physical Exam Constitutional: WD/WN, vitals as above Eyes: + anicteric sclerae Respiratory: normal respiratory effort, lungs clear to auscultation Cardiovascular: RRR, no murmur, no edema Gastrointestinal (Abdomen): Inspection/Auscultation: abdomen normal to inspection Hyperactive bowel sounds noted in all 4 quadrants Musculoskeletal: Head/Neck/Chest: normocephalic and head atraumatic Weakness noted in the left upper and lower extremity with mild atrophy in the left lower extremity in the quadriceps. Skin: no rashes, warm and dry Psychiatric: A+Ox3, euthymic affect Lymphatic: no cervical or axillary lymphadenopathy Results & Data Results & Data Vital Signs (Past 12 Hours) Vital Signs Temp Pulse Pulse Resp BP BP Pulse Ox 05/26/23 20:07 92 H 16 149/86 H 95 05/26/23 20:00 93 H 20 05/26/23 20:00 149/86 H 05/26/23 19:48 97 05/26/23 19:48 152/96 H 05/26/23 19:47 94 05/26/23 18:30 92 H 21 140/90 96 05/26/23 18:21 101 H 05/26/23 18:20 99 H 24 133/88 97 05/26/23 15:50 37.2 C 119 H 14 142/60 H 98 O2 Del Method 05/26/23 20:07 Room Air 05/26/23 20:00 05/26/23 20:00 05/26/23 19:48 Room Air 05/26/23 19:48 05/26/23 19:47 Room Air 05/26/23 18:30 Room Air 05/26/23 18:21 05/26/23 18:20 Room Air 05/26/23 15:50 Room Air Code Status & VTE Plan VTE Prophylaxis Plan VTE Prophylaxis will be ordered: Yes Supervising Physician Co-Signing Physician Notes Patient seen and examined, chart reviewed, case discussed with Dr. Slater and I agree with the assessment and plan as above
[2023-05-26] MEDS: PIPERACILLIN/TAZOBACTAM 4.5 GM/100 ML BAG IV ONE (21:19)
[2023-05-26] MEDS: PIPERACILLIN/TAZOBACTAM 4.5 GM/100ML D5W IV ONE (21:21)
[2023-05-26 21:22] LABS: C Reactive Protein 13.88 mg/dl (0-0.5)
[2023-05-26] MEDS: MoRPHine SULFATE 2 MG/ML CARP IV STA (21:24)
[2023-05-26] MEDS: PANTOprazole 40 MG TAB PO STA (21:24)
[2023-05-26] MEDS ORDERED: ACETAMINOPHEN 325 MG TAB PO PRN (22:04)
[2023-05-26 22:27] LABS: Appearance Urine Clear (Clear); Bilirubin Urine Negative (Negative); Blood Urine Trace (Negative); Color Urine Yellow; Glucose Urine UA Negative (Negative); Ketones Urine Trace (Negative); Leukocyte Esterase Urine 2+ (Negative); Nitrite Urine Negative (Negative); Protein Urine Negative (Negative); Specific Gravity Urine 1.005 (1.000-1.030); Urobilinogen Urine Negative (Negative); pH Urine 6.5 (4.5-7.5)
[2023-05-26 22:44] LABS: RBC Urine Automated 0-4 /hpf (0-4)
[2023-05-26] MEDS: LACTATED RINGER'S 1,000 ML IV SCH (22:44)
[2023-05-26 22:45] LABS: Bacteria Urine Automated 1+ (Negative); Cast Urine Automated 0 /lpf (0-5); Epithelial Cell Urine Auto 0-5 /lpf (0-5)
[2023-05-26] MEDS: CINACALCET HCL 30 MG TAB PO SCH (23:15)
[2023-05-26] MEDS: APIXABAN 5 MG TABLET PO SCH (23:15)
--- NOTE | 2023-05-27 06:06 | Billing Data ---
Date of Service May 26, 2023 Coding Level of Care Code 39960 INT INP/OBS CARE
[2023-05-27 06:30] LABS: Hematocrit (blood only) 40.8 % (42.0-52.0); Hemoglobin 13.7 g/dl (14.0-18.0); Mean Corpuscular Hemoglobin 31.9 pg (25.0-34.0); Mean Corpuscular Hgb Conc 33.6 g/dL (32.0-36.0); Mean Corpuscular Volume 95.1 fL (80.0-100.0); Mean Platelet Volume 9.5 fL (9.4-12.4); Platelet Count 184 K/uL (130-400); RDW Coefficient of Variation 12.6 % (11.5-14.5); RDW Standard Deviation 43.8 fL (36.4-46.3); Red Blood Count 4.29 M/uL (4.70-6.10); White Blood Count 14.97 K/ul (4.8-10.8)
[2023-05-27 06:49] LABS: Albumin Globulin Ratio 1.3 (0.9-2); Albumin Level 3.3 gm/dl (3.4-5.0); BUN Creatinine Ratio 8.4 (10-20); Bilirubin,Total 0.8 mg/dl (0.2-1.0); Creatinine Clr Calc Pharmacy 109.4 ml/min; Est GFR (African American) 108.5 ml/min; Est GFR (Non-African American) 93.6 ml/min; Globulin 2.5 gm/dl (2.5-4.0); Magnesium 1.9 mg/dl (1.7-2.4); Potassium 3.9 mmol/L (3.5-5.1); Total Protein 5.8 gm/dl (6.0-8.3)
--- OUTSIDE RECORDS SUMMARY | 2023-05-27 07:43 | External Medical Summary | Continuity of Care Document ---
Author Name Unknown Organization [facility] [address] [place] [address] DR Address [address], [place] [id number] Care Team Providers Care Surface Ship Usw Supervisor Name Role Phone Louis Hale Primary Care Physician [phone] [id number] Date(s): 05/14/23 - 05/14/[address] [facility] [address], [address] [place] [address] [phone] Discharge Disposition: Home or Self Care Attending Physician: DO Egan Kristen M Allergies, Adverse Reactions, Alerts Substance Reaction Severity Status aspirin Hives Active Immunizations Given and Recorded Vaccine Date Status Refusal Reason pneumococcal 23-valent vaccine 04/08/22 Recorded pneumococcal 23-valent vaccine 07/27/20 Recorded tetanus/diphtheria/pertuss, acel (Tdap) 07/26/08 R ecorded Medications cinacalcet 30 mg oral tablet Start: 02/12/23 10:49:00 EST, 1 tab, PO, bid, Disp# 180 tab, Refills: 1, Pharmacy: [facility]/pharmacy #[id number] Start Date: 02/12/23 Stop Date: 08/11/23 Status: Ordered Eliquis 5 mg oral tablet Start: 04/01/22 9:22:00 EST, 1 tab, PO, bid, Disp# 180 tab, Refills: 1, Pharmacy: [facility]/pharmacy #[id number] Start Date: 04/01/22 Stop Date: 09/28/22 Status: Ordered FLUoxetine 20 mg oral capsule Start: 05/07/23 14:18:00 EST, 1 cap, PO, Daily, Disp# 30 cap, Refills: 2, Pharmacy: [facility]/pharmacy #[id number] Start Date: 05/07/23 Stop Date: 08/05/23 Status: Ordered naproxen 500 mg (as sodium) oral tablet, extended release Start: 02/12/23 10:47:00 EST, 1 tab, PO, Daily, Disp# 10 tab, Take with food do not chew or break tablets, PRN: as needed for inflammation, Pharmacy: [id number] Start Date: 02/12/23 Stop Date: 02/22/23 Status: Ordered tiZANidine 2 mg oral tablet Start: 04/01/22 9:22:00 EST, 1 tab, PO, Daily, Disp# 20 tab, PRN: muscle spasm, Pharmacy: [id number] Start Date: 04/01/22 Stop Date: 05/01/22 Status: Ordered Vitamin D3 1000 intl units (25 mcg) oral capsule Start: 04/01/22 9:22:00 EST, 1 cap, PO, Daily, Disp# 90 cap, Refills: 1, Pharmacy: [id number] Start Date: 04/01/22 Stop Date: 09/28/22 Status: Ordered Problem List Condition Confirmation Course Effective Dates Status H ealth Status Informant Left leg DVT Confirmed Active Vitamin D deficiency Confirmed Active Depression Confirmed Active Hypercalcemia Confirmed Active Fecal incontinence Confirmed Active MS (multiple sclerosis) Confirmed Active Muscle spasm Confirmed Active Tobacco user Confirmed Active Procedures Procedure Date Related Diagnosis Body Site [...] followingcontrast administration characteristic of an active plaque. Social History Social History Type Response Smoking Status Never smoked cigaret alfred Sex Patient Care team information Care Team Personnel Name: MD Hale Dongsheng Position: Physician - Family Med Member Role: Primary Care Provider Address: Address: [facility] [address] [address] [place]
[2023-05-27] MEDS: PANTOprazole 40 MG TAB PO SCH (08:08)
[2023-05-27] MEDS: FLUoxetine HCL 20 MG CAP PO SCH (08:08)
[2023-05-27] MEDS: ACETAMINOPHEN 500 MG TAB PO PRN (09:33)
[2023-05-27] MEDS: ONDANSETRON INJ 2 MG/ML 2 ML VIAL IV PRN (10:42)
[2023-05-27 10:56] LABS: Adenovirus F 40/41 PCR Not Detected (NotDetected); Astrovirus PCR Not Detected (NotDetected); Campylobacter PCR Not Detected (NotDetected); Cryptosporidium PCR Not Detected (NotDetected); Cyclospora cayetanensis PCR Not Detected (NotDetected); Entamoeba histolytica PCR Not Detected (NotDetected); Enteroaggregative E.coli(EAEC) Not Detected (NotDetected); Enteropathogenic E.coli (EPEC) Not Detected (NotDetected); Enterotoxigenic E.coli (ETEC) Not Detected (NotDetected); Giardia lamblia PCR Not Detected (NotDetected); Norovirus GI/GII PCR Not Detected (NotDetected); Plesiomonas shigelloides PCR Not Detected (NotDetected); Rotavirus A PCR Not Detected (NotDetected); Salmonella PCR Not Detected (NotDetected); Sapovirus PCR Not Detected (NotDetected); Shiga-like Toxin E.coli (STEC) Not Detected (NotDetected); Shigella/Enteroinvasive E.coli Not Detected (NotDetected); Vibrio cholerae PCR Not Detected (NotDetected); Vibrio species PCR Not Detected (NotDetected); Yersinia enterocolitica PCR Not Detected (NotDetected)
[2023-05-27] MEDS: oxyCODONE HCL IR 5 MG TAB (IMMEDIATE RELEASE) PO STA (12:01)
--- NOTE | 2023-05-27 12:59 | Hospitalist Progress Note ---
Date of Service May 27, 2023 Assessment & Plan (1) Abdominal pain: Plan: hopefully this is 2nd to UTI, but need to r/o cholecystitis given the gallstones seen on CT. thus, check RUQ u/s. while awaiting u/s place on rocephin/flagyl. the rocephin will cover the urine. add pepcid IV and carafate in the event he has gastritis. full liquids for now. IVF. (2) UTI (urinary tract infection): Plan: 2nd GNR in the setting of a large staghorn kidney stone. start rocephin. follow cultures. (3) Gallstones: Plan: check RUQ u/s - r/o cholecystitis. LFTs normal. check a lipase level. (4) Staghorn calculus: Plan: large, left-sided if he cont with frequent UTIs he should see urology to discuss Rx options (5) SIRS (systemic inflammatory response syndrome): Plan: likely 2nd to UTI (6) Nausea and vomiting: Plan: stool biofire negative see #1 above (7) Hypercalcemia: Plan: 2nd to primary hyperparathyroidism plus dehydration calcium level improved today cont cinacalcet (8) Primary hyperparathyroidism: Plan: mild cont cinacalcet (9) Chronic deep vein thrombosis (DVT) of distal vein of left lower extremity: Plan: Continue Eliquis (10) Multiple sclerosis: Plan: he is not on disease-controlling agents no MS flare at this time will need to see when he last saw neurology in clinic will follow carefully his b/l arm complaints (numbness) Admission and Anticipated Discharge Date Admission Date: May 26, 2023 Subjective patient complains of "gagging" most of the night, emesis, upper abd pain pain has been relatively constant for the last 2 days no pain in the lower quadrants did have diarrhea this am no fevers or chills no respiratory symptoms no one else in his household has had similar symptoms no recent travel denies flank pain he is aware of the large staghorn kidney stone that is present on the left denies alcohol use denies heavy NSAID use denies heavy caffeine consumption reports multiple brief episodes of numbness of his b/l arms these last for just a few seconds then resolve has never had such before he reports chronic b/l leg pains from his MS Review of Systems Review of Systems: cv - no chest pain pulm - no dyspnea - voids spontaneously (no neurogenic bladder), denies foul-smelling urine Physical Exam Physical Exam: gen - laying in bed watching TV, a little agitated but comfortable, NAD mouth - MMM neck - no JVD heart - RRR, s1 s2, no murmur lungs - CTA b/l back - no flank pain b/l to palpation abd - tender high epigastric region, BS+, no HSM, ND, soft ext - no edema, pulses 2+ b/l psych - a/o x 3 Results & Data Results & Data Vital Signs (Past 12 Hours) Vital Signs Temp Pulse Resp BP Pulse Ox O2 Del Method 05/27/23 07:29 36.5 C 81 16 130/84 97 Room Air Laboratory Results Laboratory Results - last 48 hr 05/26/23 05/26/23 05/26/23 15:59 16:44 17:15 WBC 22.03 H RBC 5.12 Hgb 16.5 Hct 47.5 MCV 92.8 MCH 32.2 MCHC 34.7 RDW Std Deviation 43.4 RDW Coeff of Bret 12.6 Plt Count 244 MPV 9.3 L Immature Gran % (Auto) 1.0 Neut % (Auto) 85.0 Lymph % (Auto) 4.9 Vilas % (Auto) 8.9 Eos % (Auto) 0.0 Baso % (Auto) 0.2 Neut # (Auto) 18.69 H Lymph # (Auto) 1.09 L Vil[place] # (Auto) 1.96 H Eos # (Auto) 0.01 Baso # (Auto) 0.05 Immature Gran # (Auto) 0.23 H ESR 35 H PT 10.1 INR 0.9 APTT 26 PTT Ratio 0.9 Sodium 134 L Potassium 3.4 L Chloride 104 Carbon Dioxide 17 L Anion Gap 13 H BUN 9 Creatinine 1.02 Est Cr Clr Drug Dosing Not Reportable Est GFR ( Amer) 99.6 Est GFR (Non-Af Amer) 85.9 BUN/Creatinine Ratio 8.8 L Glucose 101 H Lactate 2.9 H* Calcium 11.4 H Ionized Calcium Magnesium 2.2 Total Bilirubin 0.9 AST 17 ALT 26 Alkaline Phosphatase 74 C-Reactive Protein 13.88 H Total Protein 7.9 Albumin 4.6 Globulin 3.3 Albumin/Globulin Ratio 1.4 Procalcitonin 0.14 Urine Color Urine Appearance Urine pH Ur Specific [place] Urine Protein Urine Glucose (UA) Urine Ketones Urine Blood Urine Nitrite Urine Bilirubin Urine Urobilinogen Ur Leukocyte Esterase Urine WBC (Auto) Urine RBC (Auto) U Hyaline Cast (Auto) U Epithel Cells (Auto) Urine Bacteria (Auto) Ur Renal Epithelial Cell Stl C. cayetanensis PCR Stool Rotavirus A PCR Stl Adenov F 40 PCR Stool Astrovirus (PCR) Stool Campylobacter PCR Stool Cryptosporidium PCR Stl E.coli Shiga Tox PCR Stl Enterotoxigenic E PCR Stool EPEC (PCR) Stool EAEC (PCR) Stl E. histolytica PCR Stool Giardia Lamblia PCR Stool Salmonella PCR Stool Sapovirus (PCR) Stl P. shigelloides PCR Stl Shigella/EIEC PCR St Y.enterocolitica PCR Stool Vibrio (PCR) Stl Vibrio cholerae PCR Stl Norovirus GI/GII PCR SARS-CoV-2 (PCR) NEGATIVE Influenza Type A (PCR) Negative Influenza Type B (PCR) Negative RSV (RT-PCR) Negative 05/26/23 05/26/23 05/27/23 19:43 22:00 06:02 WBC 14.97 H RBC 4.29 L Hgb 13.7 L Hct 40.8 L MCV 95.1 MCH 31.9 MCHC 33.6 RDW Std Deviation 43.8 RDW Coeff of Bret 12.6 Plt Count 184 MPV 9.5 Immature Gran % (Auto) Neut % (Auto) Lymph % (Auto) [place] % (Auto) Eos % (Auto) Baso % (Auto) Neut # (Auto) Lymph # (Auto) [place] # (Auto) Eos # (Auto) Baso # (Auto) Immature Gran # (Auto) ESR PT INR APTT PTT Ratio Sodium 136 Potassium 3.9 Chloride 110 H Carbon Dioxide 21 Anion Gap 5 BUN 8 Creatinine 0.95 Est Cr Clr Drug Dosing 109.4 Est GFR ( Amer) 108.5 Est GFR (Non-Af Amer) 93.6 BUN/Creatinine Ratio 8.4 L Glucose 95 Lactate 1.5 Calcium 9.0 D Ionized Calcium 1.24 Magnesium 1.9 Total Bilirubin 0.8 AST 14 ALT 19 Alkaline Phosphatase 50 C-Reactive Protein Total Protein 5.8 L D Albumin 3.3 L Globulin 2.5 Albumin/Globulin Ratio 1.3 Procalcitonin Urine Color Yellow Urine Appearance Clear Urine pH 6.5 Ur Specific [place] 1.005 Urine Protein Negative Urine Glucose (UA) Negative Urine Ketones Trace H Urine Blood Trace H Urine Nitrite Negative Urine Bilirubin Negative Urine Urobilinogen Negative Ur Leukocyte Esterase 2+ H Urine WBC (Auto) 10-30 H Urine RBC (Auto) 0-4 U Hyaline Cast (Auto) 0 U Epithel Cells (Auto) 0-5 Urine Bacteria (Auto) 1+ H Ur Renal Epithelial Cell Not Reportable Stl C. cayetanensis PCR Stool Rotavirus A PCR Stl Adenov F PCR Stool Astrovirus (PCR) Stool Campylobacter PCR Stool Cryptosporidium PCR Stl E.coli Shiga Tox PCR Stl Enterotoxigenic E PCR Stool EPEC (PCR) Stool EAEC (PCR) Stl E. histolytica PCR Stool Giardia Lamblia PCR Stool Salmonella PCR Stool Sapovirus (PCR) Stl P. shigelloides PCR Stl Shigella/EIEC PCR St Y.enterocolitica PCR Stool Vibrio (PCR) Stl Vibrio cholerae PCR Stl Norovirus GI/GII PCR SARS-CoV-2 (PCR) Influenza Type A (PCR) Influenza Type B (PCR) RSV (RT-PCR) 05/27/23 Unknown WBC RBC Hgb Hct MCV MCH MCHC RDW Std Deviation RDW Coeff of Bret Plt Count MPV Immature Gran % (Auto) Neut % (Auto) Lymph % (Auto) [place] % (Auto) Eos % (Auto) Baso % (Auto) Neut # (Auto) Lymph # (Auto) [place] # (Auto) Eos # (Auto) Baso # (Auto) Immature Gran # (Auto) ESR PT INR APTT PTT Ratio Sodium Potassium Chloride Carbon Dioxide Anion Gap BUN Creatinine Est Cr Clr Drug Dosing Est GFR ( Amer) Est GFR (Non-Af Amer) BUN/Creatinine Ratio Glucose Lactate Calcium Ionized Calcium Magnesium Total Bilirubin AST ALT Alkaline Phosphatase C-Reactive Protein Total Protein Albumin Globulin Albumin/Globulin Ratio Procalcitonin Urine Color Urine Appearance Urine pH Ur Specific [place] Urine Protein Urine Glucose (UA) Urine Ketones Urine Blood Urine Nitrite Urine Bilirubin Urine Urobilinogen Ur Leukocyte Esterase Urine WBC (Auto) Urine RBC (Auto) U Hyaline Cast (Auto) U Epithel Cells (Auto) Urine Bacteria (Auto) Ur Renal Epithelial Cell Stl C. cayetanensis PCR Not Detected Stool Rotavirus A PCR Not Detected Stl Adenov PCR Not Detected Stool Astrovirus (PCR) Not Detected Stool Campylobacter PCR Not Detected Stool Cryptosporidium PCR Not Detected Stl E.coli Shiga Tox PCR Not Detected Stl Enterotoxigenic E PCR Not Detected Stool EPEC (PCR) Not Detected Stool EAEC (PCR) Not Detected Stl E. histolytica PCR Not Detected Stool Giardia Lamblia PCR Not Detected Stool Salmonella PCR Not Detected Stool Sapovirus (PCR) Not Detected Stl P. shigelloides PCR Not Detected Stl Shigella/EIEC PCR Not Detected St Y.enterocolitica PCR Not Detected Stool Vibrio (PCR) Not Detected Stl Vibrio cholerae PCR Not Detected Stl Norovirus GI/GII PCR Not Detected SARS-CoV-2 (PCR) Influenza Type A (PCR) Influenza Type B (PCR) RSV (RT-PCR) PG Care Time/CCT Total # of Minutes Spent Total Time Spent with Patient: Total time spent is greater than 50% in coordination of care (as documented) at patient's floor/unit and/or counseling patient: Coding Level of Care Code 47252 SUB INP/OBS CARE 3/50MIN Diagnoses Abdominal pain R10.9 UTI (urinary tract infection) N39.0 Gallstones K80.20 Staghorn calculus N20.0 SIRS (systemic inflammatory response syndrome) R65.10 Nausea and vomiting R11.2 Hypercalcemia E83.52 Primary hyperparathyroidism E21.0 Chronic deep vein thrombosis (DVT) of distal vein of left lower extremity I82.5Z2 Multiple sclerosis G35
[2023-05-27] MEDS: FAMOTIDINE 20MG IV PUSH 20 MG/5 ML SYR IV STA (13:45)
[2023-05-27] MEDS: SUCRALFATE 1 GM/10 ML UDC PO SCH (13:45)
[2023-05-27] MEDS: cefTRIAXone SODIUM 2,000 MG in DEXTROSE 5 % MINI-B 50 ML IV SCH (13:46)
[2023-05-27] MEDS: metroNIDAZOLE 500 MG/100 ML BAG IV SCH (15:11)
--- NOTE | 2023-05-27 15:57 | Ultrasound Report ---
US gallbladder CLINICAL HISTORY: RUQ pain, N/V, gallstones COMPARISON STUDY: CT of the abdomen and pelvis May 26, 2023. FINDINGS: No hepatic lesions are identified. There is no biliary ductal dilatation. There are multipl e gallstones within the gallbladder. There is no gallbladder wall thickening. No sonographic Oconnell s ign was elicited. The pancreas is unremarkable by sonography. There is no right hydronephrosis. IMPRESSION: 1. Cholelithiasis. No evidence for acute cholecystitis. 2. No biliary ductal dilatation. ACT 112: Negative or not required by law. Electronically signed by: Vinh Varela M.D. 05/27/2023 3:55 PM
--- NOTE | 2023-05-27 16:01 | Electrocardiogram Report ---
Test Reason : Blood Pressure : / mmHG Vent. Rate : 119 BPM Atrial Rate : 119 BPM P-R Int : 164 ms QRS Dur : 086 ms QT Int : 320 ms P-R-T Axes : 056 012 066 degrees QTc Int : 450 ms Sinus tachycardia Anterior infarct (cited on or before 13-FEB-2023) Abnormal ECG When compared with ECG of 13-FEB-2023 01:19, No significant change was found Confirmed by Pola Flynn ([id number]) on 05/27/2023 4:01:14 PM Referred By: REFERRED SELF Confirmed By:Pola Flynn
[2023-05-27] MEDS: oxyCODONE HCL IR 5 MG TAB (IMMEDIATE RELEASE) PO PRN (17:04)
[2023-05-28 07:51] LABS: BUN Creatinine Ratio 6.4 (10-20); Creatinine Clr Calc Pharmacy 94.4 ml/min; Est GFR (African American) 90.9 ml/min; Est GFR (Non-African American) 78.4 ml/min; Potassium 3.6 mmol/L (3.5-5.1)
[2023-05-28] MEDS: tiZANidine HCL 4 MG TABLET PO PRN (08:00)
[2023-05-28] MEDS: AMPICILLIN/SULBACTAM SOD 3,000 MG in SODIUM CHLOR 0.9% MINI-B 100 ML IV SCH (10:34)
--- NOTE | 2023-05-28 13:22 | Hospitalist Progress Note ---
Date of Service May 28, 2023 Assessment & Plan (1) UTI (urinary tract infection): Plan: 2nd acinetobacter. this is in the setting of a large staghorn kidney stone. stop rocephin. change to IV unasyn. should be able to transition to PO augmentin at time of discharge. overall clinically improved. (2) Abdominal pain: Plan: likely 2nd to UTI although he has gallstones there was no evidence of acute cholecystitis on RUQ u/s can't rule out gastritis but less likely pain is improved today cont to Rx the UTI cont PPI cont carafate stop flagyl - no evidence of cholecystitis stop rocephin as UTI will need a different abx (3) Gallstones: Plan: checked RUQ u/s - NO cholecystitis. LFTs normal. lipase wnl. (4) Staghorn calculus: Plan: large, left-sided if he cont with frequent UTIs he should see urology to discuss Rx options (5) SIRS (systemic inflammatory response syndrome): Plan: likely 2nd to UTI SIRS resolved (6) Nausea and vomiting: Plan: stool biofire negative N/V resolved likely was 2nd to UTI (7) Hypercalcemia: Plan: 2nd to primary hyperparathyroidism plus dehydration calcium level normalized cont cinacalcet (8) Primary hyperparathyroidism: Plan: mild cont cinacalcet (9) Chronic deep vein thrombosis (DVT) of distal vein of left lower extremity: Plan: Continue Eliquis (10) Multiple sclerosis: Plan: he is not on disease-controlling agents due to his complaints of b/l arm numbness will obtain CT cervical spine w/ and w/o contrast to r/o active MS lesions may need MR brain as well needs to re-establish care with neurology for his progressive MS Plan progressing nicely possibly home tomorrow Admission and Anticipated Discharge Date Admission Date: May 26, 2023 Subjective pt feels much better today no further "gagging" no further nausea or vomiting upper abd pain improved - nearly resolved actually tolerating regular diet no flank pain still having b/l arm numbness from the elbows to the hands chronic burning of his feet and legs - took gabapentin years ago for this - did fine on it states he does not walk - only uses wheelchair for locomotion previously did stand and pivot/transfer but not doing this regularly now - people are "picking him up" to transfer him Review of Systems Review of Systems: gen - no fevers or chills cv - no chest pain pulm - no cough or dyspnea GI - no pain with eating Physical Exam Physical Exam: gen - laying in bed, looks good today, NAD mouth - MMM neck - no JVD heart - RRR, s1 s2, no murmur lungs - CTA b/l back - no flank pain b/l to palpation abd - soft, NT today, BS+, no HSM, ND ext - no edema, pulses 2+ b/l psych - a/o x 3 neuro - left sided weakness, left hand contracture - baseline Results & Data Results & Data Vital Signs (Past 12 Hours) Vital Signs Temp Pulse Resp BP Pulse Ox O2 Del Method 05/28/23 07:06 37 C 76 18 122/77 95 Room Air Laboratory Results Laboratory Results 05/27/23 05/28/23 Unknown 06:29 Sodium 134 L Potassium 3.6 Chloride 106 Carbon Dioxide 23 Anion Gap 5 BUN 7 Creatinine 1.10 Est Cr Clr Drug Dosing 94.4 Est GFR ( Amer) 90.9 Est GFR (Non-Af Amer) 78.4 BUN/Creatinine Ratio 6.4 L Glucose 108 H Calcium 8.0 L Lipase 20 Stl C. cayetanensis PCR Not Detected Stool Rotavirus A PCR Not Detected Stl Adenov F 40/41 PCR Not Detected Stool Astrovirus (PCR) Not Detected Stool Campylobacter PCR Not Detected Stool Cryptosporidium PCR Not Detected Stl E.coli Shiga Tox PCR Not Detected Stl Enterotoxigenic E PCR Not Detected Stool EPEC (PCR) Not Detected Stool EAEC (PCR) Not Detected Stl E. histolytica PCR Not Detected Stool Giardia Lamblia PCR Not Detected Stool Salmonella PCR Not Detected Stool Sapovirus (PCR) Not Detected Stl P. shigelloides PCR Not Detected Stl Shigella/EIEC PCR Not Detected St Y.enterocolitica PCR Not Detected Stool Vibrio (PCR) Not Detected Stl Vibrio cholerae PCR Not Detected Stl Norovirus GI/GII PCR Not Detected Diagnostic Findings Microbiology 05/26/23 17:23 Blood Aerobic Blood Culture - Preliminary No growth in Aerobic bottle after 48 hours. 05/26/23 17:23 Blood Anaerobic Blood Culture - Preliminary No growth in Anaerobic bottle after 48 hours. 05/26/23 17:15 Blood Aerobic Blood Culture - Preliminary No growth in Aerobic bottle after 48 hours. 05/26/23 17:15 Blood Anaerobic Blood Culture - Preliminary No growth in Anaerobic bottle after 48 hours. 05/26/23 22:00 Urine,Clean Catch Urine Culture - Final Acinetobacter baumannii/haemol PG Care Time/CCT Total # of Minutes Spent Total Time Spent with Patient: Total time spent is greater than 50% in coordination of care (as documented) at patient's floor/unit and/or counseling patient: Coding Level of Care Code 75480 SUB INP/OBS CARE 2/35MIN Diagnoses UTI (urinary tract infection) N39.0 Abdominal pain R10.9 Gallstones K80.20 Staghorn calculus N20.0 SIRS (systemic inflammatory response syndrome) R65.10 Nausea and vomiting R11.2 Hypercalcemia E83.52 Primary hyperparathyroidism E21.0 Chronic deep vein thrombosis (DVT) of distal vein of left lower extremity I82.5Z2 Multiple sclerosis G35
[2023-05-28] MEDS: GABAPENTIN 100 MG CAP PO SCH (14:07)
[2023-05-28] MEDS: GADOBUTROL 65ML VIAL IV ONE (23:25)
--- NOTE | 2023-05-29 01:26 | Magnetic Resonance Report ---
Exam(s): MRI C SPINE EXAM: MR Cervical Spine Without Intravenous Contrast CLINICAL HISTORY: Reason for exam: multiple sclerosis, b/l arm numbness. TECHNIQUE: Magnetic resonance images of the cervical spine without intravenous contrast in multiple planes. COMPARISON: No relevant prior studies available. FINDINGS: This study is suboptimal secondary to motion artifact. Vertebrae: There are 7 cervical type vertebral bodies with a mild generalized curve to the left and straightening the normal cervical lordosis. There is normal vertebral body height and alignment. The bone marrow signal is heterogeneous with reactive endplate changes. No acute fracture. Spinal cord: There are numerous cord lesions with lesions in the medulla and javier without evidence of abnormal enhancement to suggest active demyelination. Soft tissues: The cervical flow voids are intact. IMPRESSION: Findings concerning for demyelinating disease with lesions in the javier, medulla and cervical cord without evidence of abnormal enhancement to suggest active demyelination. Recommend MRI of the brain with and without contrast for further evaluation. Electronically signed by: Neelima Cardona MD 05/29/23 01:24 AM
[2023-05-29 06:42] LABS: BUN Creatinine Ratio 7.2 (10-20); Creatinine Clr Calc Pharmacy 93.6 ml/min; Est GFR (African American) 89.9 ml/min; Est GFR (Non-African American) 77.6 ml/min; Potassium 3.4 mmol/L (3.5-5.1)
[2023-05-29] MEDS: POTASSIUM CHLORIDE CRTAB 20 MEQ TABCR PO STA (11:04)
[2023-05-29] MEDS ORDERED: methylPREDNISolone 125 MG/2 ML VIAL IV STA (11:25)
--- NOTE | 2023-05-29 11:26 | Hospitalist Progress Note ---
Date of Service May 29, 2023 Assessment & Plan (1) UTI (urinary tract infection): Plan: 2nd acinetobacter. this is in the setting of a large staghorn kidney stone. received IV zosyn in the ER, then was on rocephin, then changed to IV unasyn on 05/27. will transition to PO augmentin at time of discharge. overall clinically improved. CT a/p at admission had urothelial thickening -- could have had ascending infection. thus, plan 14 days in total of abx. (2) Abdominal pain: Plan: likely 2nd to UTI although he has gallstones there was no evidence of acute cholecystitis on RUQ u/s can't rule out gastritis but less likely pain resolved cont to Rx the UTI cont PPI - plan for 2 weeks more at discharge cont carafate (while here, stop at d/c) (3) Gallstones: Plan: checked RUQ u/s - NO cholecystitis. LFTs normal. lipase wnl. (4) Staghorn calculus: Plan: large, left-sided if he cont with frequent UTIs he should see urology to discuss Rx options (5) SIRS (systemic inflammatory response syndrome): Plan: likely 2nd to UTI SIRS resolved (6) Nausea and vomiting: Plan: stool biofire negative N/V resolved likely was 2nd to UTI (7) Hypercalcemia: Plan: 2nd to primary hyperparathyroidism plus dehydration calcium level normalized cont cinacalcet (8) Primary hyperparathyroidism: Plan: mild cont cinacalcet (9) Chronic deep vein thrombosis (DVT) of distal vein of left lower extremity: Plan: Continue Eliquis (10) Multiple sclerosis: Plan: he is not on disease-controlling agents due to his complaints of b/l arm numbness obtained CT cervical spine w/ and w/o contrast to r/o active MS lesions - numerous MS lesions but no enhancement MRI brain also obtained - numerous MS lesions but also no enhancement spoke with neuro - in light of mild symptoms (paresthesias, etc) will give medrol dose pack at d/c and f/u with neuro after d/c to re-establish care will give solumedrol 30mg IV x 1 today ask rack puncher to get him f/u appt with [facility] cont gabapentin 100mg TID for b/l leg neuropathic pains Plan progressing nicely home tomorrow Admission and Anticipated Discharge Date Admission Date: May 28, 2023 Subjective no events overnight nausea resolved abd pain resolved no further diarrhea still with numbness in b/l arms - not as frequent eating well feels much better overall Review of Systems Review of Systems: cv - no chest pain pulm - no dyspnea or cough GI - no vomiting Physical Exam Physical Exam: gen - laying in bed, NAD mouth - MMM neck - no JVD heart - RRR, s1 s2, no murmur lungs - CTA b/l back - no flank pain b/l to palpation abd - soft, NT, BS+, no HSM, ND ext - no edema, pulses 2+ b/l psych - a/o x 3 neuro - left sided hemiparesis, left hand contracture - baseline Results & Data Results & Data Vital Signs (Past 12 Hours) Vital Signs Temp Pulse Resp BP Pulse Ox O2 Del Method 05/29/23 07:43 36.6 C 87 18 149/92 H 99 Room Air Laboratory Results Laboratory Results - last 24 hr 05/29/23 05:44 Sodium 136 Potassium 3.4 L Chloride 107 Carbon Dioxide 23 Anion Gap 6 BUN 8 Creatinine 1.11 Est Cr Clr Drug Dosing 93.6 Est GFR ( Amer) 89.9 Est GFR (Non-Af Amer) 77.6 BUN/Creatinine Ratio 7.2 L Glucose 104 H Calcium 8.0 L Diagnostic Findings Microbiology 05/26/23 17:23 Blood Aerobic Blood Culture - Preliminary No growth in Aerobic bottle after 48 hours. 05/26/23 17:23 Blood Anaerobic Blood Culture - Preliminary No growth in Anaerobic bottle after 48 hours. 05/26/23 17:15 Blood Aerobic Blood Culture - Preliminary No growth in Aerobic bottle after 48 hours. 05/26/23 17:15 Blood Anaerobic Blood Culture - Preliminary No growth in Anaerobic bottle after 48 hours. 05/26/23 22:00 Urine,Clean Catch Urine Culture - Final Acinetobacter baumannii/haemol PG Care Time/CCT Total # of Minutes Spent Total Time Spent with Patient: Total time spent is greater than 50% in coordination of care (as documented) at patient's floor/unit and/or counseling patient: Coding Level of Care Code 98599 SUB INP/OBS CARE 2/35MIN Diagnoses UTI (urinary tract infection) N39.0 Abdominal pain R10.9 Gallstones K80.20 Staghorn calculus N20.0 SIRS (systemic inflammatory response syndrome) R65.10 Nausea and vomiting R11.2 Hypercalcemia E83.52 Primary hyperparathyroidism E21.0 Chronic deep vein thrombosis (DVT) of distal vein of left lower extremity I82.5Z2 Multiple sclerosis G35
[2023-05-29] MEDS: methylPREDNISolone 30 MG in SYRINGE 0 ML IV ONE (12:08)
[2023-05-29] MEDS: GADOBUTROL 65ML VIAL IV ONE (15:06)
--- NOTE | 2023-05-29 15:36 | Magnetic Resonance Report ---
Brain MRI WITH AND WITHOUT CONTRAST HISTORY: MS; b/l arm paresthesias, L sided hemiplegia TECHNIQUE: Multiplanar multisequence MRI of the brain was performed both before and after the intrave nous administration of contrast. COMPARISON STUDY: Cervical spine MRI 05/28/2023. Brain MRI 10/02/2022. FINDINGS: No areas of restricted diffusion to suggest an acute infarction. The midline structures are intact. There is no mass, hematoma, midline shift. There are mild atrophic changes within the brain. The orbits are unremarkable. The paranasal sinuses and mastoid air cells are clear. The major vascul ar flow-voids are well-maintained. Extensive scattered white matter plaques are again seen throughout the brain including the brainstem and cerebellar hemispheres. These are similar in size, number, and distribution compared to the prior study. This is consistent with the patient's known history of mul tiple sclerosis. No definite new white matter plaques identified. Postcontrast sequences show no area s of abnormal enhancement to suggest active demyelination. IMPRESSION: 1. Redemonstration of the extensive white matter plaques seen throughout the brain including the brai nstem consistent with the patient's known history of multiple sclerosis. This is similar to the prior study. 2. No abnormal enhancement to suggest active demyelination. 3. No acute infarct or intracranial hemorrhage. ACT 112: Negative or not required by law. Electronically signed by: Nigel Talbot M.D. 05/29/2023 3:34 PM
[2023-05-30 08:25] LABS: Hemoglobin 13.9 g/dl (14.0-18.0); Mean Corpuscular Hemoglobin 31.2 pg (25.0-34.0); Mean Corpuscular Hgb Conc 33.1 g/dL (32.0-36.0); Mean Corpuscular Volume 94.4 fL (80.0-100.0); Mean Platelet Volume 9.4 fL (9.4-12.4); Platelet Count 206 K/uL (130-400); RDW Coefficient of Variation 12.3 % (11.5-14.5); RDW Standard Deviation 42.9 fL (36.4-46.3); Red Blood Count 4.45 M/uL (4.70-6.10); White Blood Count 8.05 K/ul (4.8-10.8)
[2023-05-30 08:31] LABS: BUN Creatinine Ratio 13.1 (10-20); Calcium 8.3 mg/dl (8.6-10.3); Creatinine Clr Calc Pharmacy 97.1 ml/min; Est GFR (Non-African American) 81.1 ml/min; Potassium 3.6 mmol/L (3.5-5.1)
[2023-05-30 08:49] LABS: Ferritin 131.7 ng/ml (8-388)
[2023-05-30] MEDS ORDERED: GABAPENTIN 100 MG CAP PO SCH ×2 (11:15→14:00)
[2023-05-30] MEDS ORDERED: AMOXICILLIN/CLAVULANATE 875 MG TAB PO SCH ×2 (11:15→17:00)
[2023-05-30] MEDS: predniSONE 10 MG TABLET PO STA (11:58)
[2023-05-30] MEDS: CYANOCOBALAMIN (B-12) 500 MCG TABLET PO SCH (13:16)
[2023-05-30] MEDS: POLYETHYLENE (MIRALAX) 17 GM PACK PO SCH (13:17)
--- NOTE | 2023-05-30 13:23 | XRay Report ---
KUB HISTORY: central abd pain, constipation; assess fecal load COMPARISON: Abdomen and pelvis CT 05/26/2023. FINDINGS: The bowel gas pattern is unremarkable. There are no dilated loops of small bowel to suggest an obstruction. No ureteral calculi. No pneumoperitoneum or pneumatosis. Mild fecal retention again noted. Left-sided nephrolithiasis, unchanged. IMPRESSION: 1. Nonobstructive bowel gas pattern. 2. Mild fecal retention. 3. Left-sided nephrolithiasis, unchanged. No ureteral calculi ACT 112: Negative or not required by law. Electronically signed by: Nigel Talbot M.D. 05/30/2023 1:22 PM
--- NOTE | 2023-05-30 18:35 | Hospitalist Progress Note ---
Date of Service May 30, 2023 Assessment & Plan (1) UTI (urinary tract infection): Plan: 2nd acinetobacter. this is in the setting of a large staghorn kidney stone. received IV zosyn in the ER, then was on rocephin, then changed to IV unasyn on 05/27. will transition to PO augmentin. overall clinically improved. leukocytosis resolved. CT a/p at admission had urothelial thickening -- could have had ascending infection. thus, plan 14 days in total of abx. (2) Abdominal pain: Plan: acute - thought 2nd to UTI although he has gallstones there was no evidence of acute cholecystitis on RUQ u/s can't rule out gastritis but less likely - cont PPI with carafate now stating he has chronic pain for 5+ years constipation? hypercalcemia? ( spasm? IBS? celiac? other? check KUB x-ray for stool load assessment check a TTG cont to Rx the UTI cont PPI - plan for 2 weeks more at discharge cont carafate while here, then stop at d/c (3) Gallstones: Plan: checked RUQ u/s - NO cholecystitis. LFTs normal. lipase wnl. (4) Staghorn calculus: Plan: large, left-sided if he cont with frequent UTIs he should see urology to discuss Rx options (5) SIRS (systemic inflammatory response syndrome): Plan: likely 2nd to UTI SIRS resolved (6) Nausea and vomiting: Plan: stool biofire negative N/V resolved likely was 2nd to UTI (7) Hypercalcemia: Plan: 2nd to primary hyperparathyroidism plus dehydration calcium level normalized cont cinacalcet (8) Primary hyperparathyroidism: Plan: mild cont cinacalcet (9) Chronic deep vein thrombosis (DVT) of distal vein of left lower extremity: Plan: Continue Eliquis (10) Multiple sclerosis: Plan: he is not on disease-controlling agents due to his complaints of b/l arm numbness obtained CT cervical spine w/ and w/o contrast to r/o active MS lesions - numerous MS lesions but no enhancement MRI brain also obtained - numerous MS lesions but also no enhancement spoke with neuro - in light of mild symptoms (paresthesias, etc) will give medrol dose pack at d/c and f/u with neuro after d/c to re-establish care will give solumedrol 30mg IV x 1 today ask placement secretary to get him f/u appt with [facility] cont gabapentin 100mg TID for b/l leg neuropathic pains (11) Vitamin B12 deficiency: Plan: start vit b12 1000mcg daily check a B1 level and folate level tomorrow am Plan hold off on d/c today due to abd pain if pain persists then GI consult for ?consideration of EGD? Admission and Anticipated Discharge Date Admission Date: May 28, 2023 Subjective no events overnight had a stool yesterday had a stool this am patient reports he wouldn't be able to get his prescriptions until Thursday - no ride to the pharmacy he then states that he feels that if he is discharged he would be right back in the hospital due to abdominal pain states he has had the abd pain for 5 years doesn't hurt always, but hurts most days having a bowel movement makes it feel better eating does not worsen the pain no nausea no gagging no vomiting no blood per rectum Review of Systems Review of Systems: gen - no fevers or chills musculo - no leg pain today cv - no cp pulm - no dyspnea Physical Exam Physical Exam: gen - laying in bed, NAD, looks same as yesterday; agitated mouth - MMM neck - no JVD heart - RRR, s1 s2, no murmur lungs - CTA b/l abd - soft, NT, BS+, no HSM, ND, no peritoneal signs ext - no edema, pulses 2+ b/l psych - a/o x 3 neuro - left sided hemiparesis, left hand contracture - baseline Results & Data Results & Data Vital Signs (Past 12 Hours) Vital Signs Temp Pulse Resp BP Pulse Ox O2 Del Method 05/30/23 15:16 36.4 C L 60 16 131/84 97 Room Air 05/30/23 08:27 Room Air 05/30/23 08:00 36.5 C 65 16 129/80 98 Room Air Laboratory Results Laboratory Results - last 24 hr 05/30/23 07:56 WBC 8.05 RBC 4.45 L Hgb 13.9 L Hct 42.0 MCV 94.4 MCH 31.2 MCHC 33.1 RDW Std Deviation 42.9 RDW Coeff of Bret 12.3 Plt Count 206 MPV 9.4 Sodium 139 Potassium 3.6 Chloride 110 H Carbon Dioxide 23 Anion Gap 6 BUN 14 Creatinine 1.07 Est Cr Clr Drug Dosing 97.1 Est GFR ( Amer) 94.0 Est GFR (Non-Af Amer) 81.1 BUN/Creatinine Ratio 13.1 Glucose 117 H Calcium 8.3 L Iron 69 TIBC 277 Unsaturated IBC 208 Transferrin % Sat 25 Ferritin 131.7 Vitamin B12 140 L PG Care Time/CCT Total # of Minutes Spent Total Time Spent with Patient: Total time spent is greater than 50% in coordination of care (as documented) at patient's floor/unit and/or counseling patient: Coding Level of Care Code 27803 SUB INP/OBS CARE 2/35MIN Diagnoses UTI (urinary tract infection) N39.0 Abdominal pain R10.9 Gallstones K80.20 Staghorn calculus N20.0 SIRS (systemic inflammatory response syndrome) R65.10 Nausea and vomiting R11.2 Hypercalcemia E83.52 Primary hyperparathyroidism E21.0 Chronic deep vein thrombosis (DVT) of distal vein of left lower extremity I82.5Z2 Multiple sclerosis G35 Vitamin B12 deficiency E53.8
[2023-05-31] MEDS: SULFAMETHOXAZOLE/TRIMETHOPRIM DS 800/160MG TAB PO SCH (08:49)
[2023-05-31] MEDS: SENNA 8.6 MG TAB PO SCH (08:50)
[2023-05-31] MEDS ORDERED: predniSONE 5 MG TAB PO SCH (09:00)
[2023-05-31] MEDS ORDERED: predniSONE 5 MG TAB PO ONE (09:00)
[2023-05-31] MEDS ORDERED: PANTOprazole 40 MG TAB PO SCH ×2 (09:00)
--- NOTE | 2023-05-31 11:07 | Discharge Summary ---
Date of Service May 31, 2023 Admission HPI Per Admitting Provider Patient is a 47-year-old male with past medical history of MS, chronic deep vein thrombosis, primary hyperparathyroidism, and osteoporosis who presents to the hospital for evaluation of vomiting. It seems since yesterday, patient has had 7 episodes of vomiting that started at approximately 6 PM on 05/25/2023. His last episode of vomiting occurred at 1 PM at 05/26/2023. He does recall having an Egg McMuffin from [employer] on the morning his symptoms started. Nobody else at home seems to be having symptoms. Denies any episodes of diarrhea or having a bowel movement within the past 24 hours. Occasionally is nauseous but is not currently nauseous now. He was having difficulty with keeping down fluids over the past 12 hours since his symptoms have started which was the biggest reason for coming to the emergency room tonight. In terms of his MS, patient chronically has left-sided weakness more so in the left lower extremity than the upper extremity that has been worse since this had started. He is typi jayson wheelchair-bound and today was unable to pivot on his left side indicating to him that he is getting somewhat weaker since this started. No recent travel. No abdominal pain but does have the sensation of abdominal fullness. No other complaints at this time ED course: Patient evaluated by provider. CT scan of the abdomen pelvis without new abnormalities noted. Blood work indicative of elevated white blood cell count of 22, sodium of 134, potassium 3.4, anion gap of 13, initial lactate of 11.4 that was rechecked after fluid resuscitation and decreased to 1.5, urinalysis ordered but not collected at time of writing this note. Chest x-ray taken without any evidence of acute process. Emergency department concern for sepsis, so hospitalist service was consulted for further management recommendations. Patient was given IV fluids as well as an initial dose of Zosyn. Discharge Exam gen - laying in bed, NAD, looks same as yesterday; agitated mouth - MMM neck - no JVD heart - RRR, s1 s2, no murmur lungs - CTA b/l abd - soft, NT, BS+, no HSM, ND, no peritoneal signs ext - no edema, pulses 2+ b/l psych - a/o x 3 neuro - left sided hemiparesis, left hand contracture - baseline Discharge Data Allergies Allergy/AdvReac Type Severity Reaction Status Date / Time aspirin Allergy Severe airway Verified 03/04/23 19:11 edema; hives Consultations 05/26/23 19:50 ED Decision to Admit Stat Ordered Studies 05/26/23 17:41 CT abd pelvis wo con Stat 05/27/23 12:53 US gallbladder Urgent 05/28/23 19:37 MR cervical spine wo/w con Routine 05/29/23 06:29 MR brain MS wo/w con Routine Hospital Course (1) UTI (urinary tract infection): 2nd acinetobacter. this is in the setting of a large staghorn kidney stone. received IV zosyn in the ER, then was on rocephin, then changed to IV unasyn on 05/27. will transition to PO augmentin. overall clinically improved. leukocytosis resolved. CT a/p at admission had urothelial thickening -- could have had ascending infection. thus, plan 14 days in total of abx. (2) Sepsis: (3) Abdominal pain: acute - thought 2nd to UTI although he has gallstones there was no evidence of acute cholecystitis on RUQ u/s can't rule out gastritis but less likely - cont PPI with carafate now stating he has chronic pain for 5+ years constipation? hypercalcemia? ( spasm? IBS? celiac? other? check KUB x-ray for stool load assessment check a TTG cont to Rx the UTI cont PPI - plan for 2 weeks more at discharge cont carafate while here, then stop at d/c (4) Gallstones: checked RUQ u/s - NO cholecystitis. LFTs normal. lipase wnl. (5) Staghorn calculus: large, left-sided if he cont with frequent UTIs he should see urology to discuss Rx options (6) SIRS (systemic inflammatory response syndrome): likely 2nd to UTI SIRS resolved (7) Nausea and vomiting: stool biofire negative N/V resolved likely was 2nd to UTI (8) Hypercalcemia: 2nd to primary hyperparathyroidism plus dehydration calcium level normalized cont cinacalcet (9) Primary hyperparathyroidism: mild cont cinacalcet (10) Chronic deep vein thrombosis (DVT) of distal vein of left lower extremity: Continue Eliquis (11) Multiple sclerosis: he is not on disease-controlling agents due to his complaints of b/l arm numbness obtained CT cervical spine w/ and w/o contrast to r/o active MS lesions - numerous MS lesions but no enhancement MRI brain also obtained - numerous MS lesions but also no enhancement spoke with neuro - in light of mild symptoms (paresthesias, etc) will give medrol dose pack at d/c and f/u with neuro after d/c to re-establish care will give solumedrol 30mg IV x 1 today ask medical assistant secretary to get him f/u appt with [facility] cont gabapentin 100mg TID for b/l leg neuropathic pains (12) Vitamin B12 deficiency: start vit b12 1000mcg daily check a B1 level and folate level tomorrow am Plan hold off on d/c today due to abd pain if pain persists then GI consult for ?consideration of EGD? Home Health Attestation I certify that this patient is under my care and that I, or a physicians distribution center assistant working with me, had a face to-face encounter that meets the home health [id number] encounter requirements with this patient. The encounter with the patient was in whole, or in part, for the following medical condition, which is the primary reason for home health care (list medical condition): I certify that, based on my findings, the following services are medically necessary home health services: My clinical findings support the need for the above services because: Further, I certify that my clinical findings support that this patient is homebound (i.e. absences from home require considerable and taxing effort and are for medical reasons or druze services or infrequently or of short duration when for other reasons) because: Certification for Home Health Services: Based on the above findings, I certify that this patient is confined to the home and needs intermittent intermediate care, physical therapy and/or speech therapy or continues to need occupational therapy. The patient is under my care, and I have initiated the establishment of the plan of care. This patient will be followed by a physician who will periodically review the plan of care. Discharge Plan Discharge Items Patient Disposition: Home - Home Health Services Reason For Visit: VOMITING Discharge Diagnosis: 1. vomiting - likely due to urinary tract infection - resolved 2. urinary tract infection - resolving 3. chronic, left sided, large kidney stone 4. chronic abdominal pain 5. vitamin B12 deficiency 6. neuropathic pain of legs 7. multiple sclerosis (MS) 8. gallstones, but no signs of acute cholecystitis (sick gall bladder) 9. bilateral arm numbness - due to your MS Activity: Resume your previous activity Non-emergency contact: Primary Care Provider and Neurologist Call non-emergency contact if: you have any medication questions, your symptoms worsen, your pain is not controlled and you have a fever Follow-up/Referrals: James Gamez ElfegoDO Lucero [Physician] - (we will help coordinate a gastroenterology appointment for you for your chronic abdominal pains) Ricky Flowers MD [Physician] - 06/01/23 2:00 pm (W/ MARK- Emily Garces) Louis Hale [Primary Care Provider] - (1 week ) Diet: Regular Addtl Attending Provider Instructions: Mr Ramirez, You were hospitalized for vomiting and abdominal pain. CT scan of the abdomen showed gallstones as well as a chronic left-sided kidney stone. Ultrasound of the gall bladder showed the gallstones but the gall bladder was not "sick" (no cholecystitis). Your urine culture grew bacteria - thus you had a urinary tract infection. The urinary infection was the likely cause of your vomiting and other symptoms. You improved with the use of antibiotics. If you were to start having recurrent UTIs you would need to see urology to determine the best course of action for your kidney stone on the left. The large kidney stone is a risk factor for UTIs. In addition you complained of numbness episodes in both arms. These symptoms are likely from your MS. MRIs of the brain and cervical spine show numerous MS spots. It will be very important for you to get re-established with [facility] to treat your MS. We started you on some steroids for the MS and your arm symptoms. The numbness improved while here. Other issues addressed - 1. vitamin B12 deficiency - your B12 level was 140 (normal is >180). This could be contributing to your nerve pain symptoms in the legs, mood changes, etc. 2. chronic abdominal pain - would recommend follow-up with [facility] for this. We will help you get an appointment with that office. Recommendations - 1. antibiotics for your urinary tract infection - * trimethoprim/sulfa - 1 tablet twice daily x 10 days, first dose TONIGHT * we are providing you a 2-day supply from the hospital * the other 8 days will be available at [facility] pharmacy for you 2. prednisone for your MS symptoms - * we are providing you 25mg of prednisone to take upon return home today * the other days of prednisone will be at [facility] pharmacy for you 3. 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 vitamin B12 deficiency - * take grgs-hhf-zijyyct vitamin B12 1000mcg (1mg) daily * you can find this in any vitamin section at [facility], [place], [employer], etc * take for at least 6 months to replenish your low B12 5. for constipation - * consider taking gktr-zxr-dozvmay senna (senokot) 2 tablets once daily 6. for bilateral leg pains and intermittent arm numbness - * gabapentin 100mg three times daily * this medicine is to treat nerve pain and numbness from the MS Follow-up - * see your family doctor in about 1 week * we have you scheduled to see neurology tomorrow - we will reschedule this for you * we will help you get an appointment to see gastroenterology Return to [facility] if - * you have fevers over 100 degrees * you have worsening MS symptoms * you have worsening abdominal pains * you develop severe diarrhea * you develop recurrent, severe vomiting * any other concerns It was our pleasure to care for you! -Dr Briceno Pending Studies at Discharge: No Stand-Alone Forms: My [facility] [employer], Smoking Cessation Medications and DC Order Prescriptions: New gabapentin 100 mg Capsule 100 mg PO TID Qty: 90 2RF pantoprazole 40 mg Tablet,Delayed Release (Dr/Ec) 40 mg PO DAILY Qty: 30 1RF sulfamethoxazole-trimethoprim [Bactrim DS] 800-160 mg tablet 1 tab PO BID Qty: 16 0RF cyanocobalamin (vitamin B-12) 1,000 mcg tablet 1,000 mcg PO DAILY Qty: 90 1RF Rx Instructions: purchase inrj-prb-zlkaiuj sennosides [Senokot] 8.6 mg Tablet 17.2 mg PO QAM Qty: 30 0RF Rx Instructions: purchase anfa-ang-zbuycpf prednisone 5 mg tablet 5 mg PO DIRECTED Qty: 10 0RF Rx Instructions: start 05/31, take with food. Take 4 tabs day 1; 3 tabs day 2; 2 tabs day 3; 1 tab day 4. Continued tizanidine 2 mg tablet 2 mg PO DAILY PRN (Reason: Muscle Spasm) ondansetron 4 mg tablet,disintegrating 4 mg PO Q6H PRN (Reason: nausea and vomiting) Qty: 15 0RF cinacalcet 30 mg tablet 30 mg PO BID fluoxetine 20 mg capsule 20 mg PO DAILY Eliquis 5 mg tablet 5 mg PO BID acetaminophen [Tylenol Extra Strength] 500 mg Tablet 1,000 mg PO Q6H PRN (Reason: PAIN/FEVER) Discharge Orders: Discharge Order (Routine); Ordered 05/31/23 Ordered By: Jean Briceno Admission Data Admit Date/Time: 05/28/23 13:21 Attending Provider: Jean Briceno Admit Provider: Krish Slater Primary Care Provider: Louis Hale Other Providers: Loulou Arzola Coding Diagnoses UTI (urinary tract infection) N39.0 Sepsis A41.9 Abdominal pain R10.9 Gallstones K80.20 Staghorn calculus N20.0 SIRS (systemic inflammatory response syndrome) R65.10 Nausea and vomiting R11.2 Hypercalcemia E83.52 Primary hyperparathyroidism E21.0 Chronic deep vein thrombosis (DVT) of distal vein of left lower extremity I82.5Z2 Multiple sclerosis G35 Vitamin B12 deficiency E53.8
--- NOTE | 2023-05-31 20:07 | Hospitalist Progress Note ---
Date of Service May 31, 2023 Assessment & Plan (1) UTI (urinary tract infection): Plan: 2nd acinetobacter. this is in the setting of a large staghorn kidney stone. received IV zosyn in the ER, then was on rocephin, then changed to IV unasyn on 05/27. will transition to PO bactrim today. overall clinically improved. leukocytosis resolved. CT a/p at admission had urothelial thickening -- could have had ascending infection. thus, plan 14 days in total of abx between IV/PO. (2) Sepsis: Plan: 2nd to #1 resolved (3) Abdominal pain: Plan: acute - thought 2nd to UTI although he has gallstones there was no evidence of acute cholecystitis on RUQ u/s can't rule out gastritis but less likely - cont PPI with carafate now stating he has chronic pain for 5+ years constipation? hypercalcemia? spasm? IBS? celiac? other? checked KUB x-ray for stool load - only mild fecal load checked a TTG cont to Rx the UTI cont PPI - plan for 2 weeks more at discharge cont carafate while here, then stop at d/c will send to GI post-d/c for evaluation (4) Gallstones: Plan: checked RUQ u/s - NO cholecystitis. LFTs normal. lipase wnl. (5) Staghorn calculus: Plan: large, left-sided if he cont with frequent UTIs he should see urology to discuss Rx options (6) Nausea and vomiting: Plan: stool biofire negative N/V resolved likely was 2nd to UTI (7) Hypercalcemia: Plan: 2nd to primary hyperparathyroidism plus dehydration calcium level normalized cont cinacalcet (8) Primary hyperparathyroidism: Plan: mild cont cinacalcet (9) Chronic deep vein thrombosis (DVT) of distal vein of left lower extremity: Plan: Continue Eliquis (10) Multiple sclerosis: Plan: he is not on disease-controlling agents due to his complaints of b/l arm numbness obtained CT cervical spine w/ and w/o contrast to r/o active MS lesions - numerous MS lesions but no enhancement MRI brain also obtained - numerous MS lesions but also no enhancement spoke with neuro - in light of mild symptoms (paresthesias, etc) will give medrol dose pack at d/c and f/u with neuro after d/c to re-establish care will give solumedrol 30mg IV x 1 today ask admin secretary to get him f/u appt with [facility] Neurology cont gabapentin 100mg TID for b/l leg neuropathic pains (11) Vitamin B12 deficiency: Plan: started vit b12 1000mcg daily check a B1 level folate level wnl Plan unfortunately no ride to get home today - social work unable to get transportation will shoot for tomorrow Admission and Anticipated Discharge Date Admission Date: May 28, 2023 Subjective no new issues overnight abd pain improved no N/V eating 100% of meals no symptoms unfortunately SW unable to get transportation for him back to [place] we discussed his B12 def Review of Systems Review of Systems: gen - no fevers or chills cv - no chest pain pulm - no cough or dyspnea GI - no further gagging Physical Exam Physical Exam: gen - laying in bed, NAD, looks very good today mouth - MMM neck - no JVD heart - RRR, s1 s2, no murmur lungs - CTA b/l abd - soft, NT, BS+, no HSM, ND ext - no edema, pulses 2+ b/l psych - a/o x 3 neuro - left sided hemiparesis, left hand contracture - baseline Results & Data Results & Data Vital Signs (Past 12 Hours) Laboratory Results - last 48 hr 05/30/23 05/31/23 07:56 07:29 Sodium Potassium Chloride Carbon Dioxide Anion Gap BUN Creatinine Est Cr Clr Drug Dosing Est GFR ( Amer) Est GFR (Non-Af Amer) BUN/Creatinine Ratio Glucose Calcium Vitamin B12 140 L Folate 11.04 PG Care Time/CCT Total # of Minutes Spent Total Time Spent with Patient: Total time spent is greater than 50% in coordination of care (as documented) at patient's floor/unit and/or counseling patient: Coding Level of Care Code 08166 SUB INP/OBS CARE 2/35MIN Diagnoses UTI (urinary tract infection) N39.0 Sepsis A41.9 Abdominal pain R10.9 Gallstones K80.20 Staghorn calculus N20.0 Nausea and vomiting R11.2 Hypercalcemia E83.52 Primary hyperparathyroidism E21.0 Chronic deep vein thrombosis (DVT) of distal vein of left lower extremity I82.5Z2 Multiple sclerosis G35 Vitamin B12 deficiency E53.8
[2023-05-31] MEDS ORDERED: SULFAMETHOXAZOLE/TRIMETHOPRIM DS 800/160MG TAB PO SCH (21:00)
[2023-06-01] MEDS ORDERED: SULFAMETHOXAZOLE/TRIMETHOPRIM DS 800/160MG TAB PO SCH
[2023-06-01 08:38] LABS: Calcium 8.9 mg/dl (8.6-10.3); Creatinine Clr Calc Pharmacy 85.9 ml/min; Est GFR (Non-African American) 69.9 ml/min; Potassium 3.5 mmol/L (3.5-5.1)
== END 2023-06-01 15:13 | disposition home or self-care (01) | DRG 872 ==
LOC: ED 15:28 → 3E 15:28 → SUATTDRO 20:23 → 3E 21:41

== ENCOUNTER 2023-06-09 18:57 | Inpatient (IN) ==
[2023-06-09] MEDS: SODIUM CHLORIDE 0.9% 2,000 ML IV ONE (19:55)
[2023-06-09] MEDS: ONDANSETRON INJ 2 MG/ML 2 ML VIAL ONE (19:55)
[2023-06-09 19:57] LABS: Basophils # (auto) 0.11 K/uL (0.00-0.20); Basophils % (auto) 0.5 %; Eosinophils # (auto) 0.03 K/uL (0.00-0.50); Eosinophils % (auto) 0.1 %; Hematocrit (blood only) 47.2 % (42.0-52.0); Hemoglobin 15.6 g/dl (14.0-18.0); Immature Granulocytes # (auto) 0.36 K/uL (0.01-0.20); Immature Granulocytes % (auto) 1.7 %; Lymphocytes # (auto) 0.99 K/uL (1.20-3.40); Lymphocytes % (auto) 4.7 %; Mean Corpuscular Hemoglobin 31.6 pg (25.0-34.0); Mean Corpuscular Hgb Conc 33.1 g/dL (32.0-36.0); Mean Corpuscular Volume 95.7 fL (80.0-100.0); Mean Platelet Volume 9.7 fL (9.4-12.4); Monocytes # (auto) 1.59 K/uL (0.11-0.59); Monocytes % (auto) 7.5 %; Neutrophils # (auto) 18.17 K/uL (1.40-6.50); Neutrophils % (auto) 85.5 %; Platelet Count 353 K/uL (130-400); RDW Coefficient of Variation 12.7 % (11.5-14.5); RDW Standard Deviation 45.3 fL (36.4-46.3); Red Blood Count 4.93 M/uL (4.70-6.10); White Blood Count 21.25 K/ul (4.8-10.8)
[2023-06-09] MEDS: ONDANSETRON INJ 2 MG/ML 2 ML VIAL IV STA (20:12)
--- NOTE | 2023-06-09 20:16 | Emergency Department Note ---
Impression & Plan Abdominal pain, RUQ, Nausea & vomiting, Leukocytosis, Elevated lactic acid level ED Provider Note HISTORY OF PRESENT ILLNESS: Patient is a 47-year-old male presenting with vomiting and right upper quadrant pain. Patient reports symptoms started acutely at 1600 this evening. Reports has had multiple episodes of vomiting and dry heaving. Reports generalized abdominal pain, but reports it is worse in his right upper quadrant. Denies any history of abdominal surgeries. Denies any recent diarrhea. Denies any fevers. Denies any dysuria or hematuria. Denies any recent sick contact exposures. Denies any chest pain or shortness of breath. ROS: as above PHYSICAL EXAM: Constitutional: Patient appears in no acute distress. HENT: Head: Normocephalic and atraumatic. Eyes: EOMI, PERRL Mouth/Throat: Mucous membranes moist. Neck: Trachea midline. Neck supple. Cardiovascular: RRR, No murmurs, rubs or gallops. Intact distal pulses. Pulmonary/Chest: No respiratory distress. Breath sounds clear and equal bilaterally. No wheezes or rales. Abdominal: Abdomen soft, no rebound or guarding. RUQ TTP Musculoskeletal: No edema, tenderness or deformity noted. Skin: Warm and dry. No rash, erythema, pallor or cyanosis Psychiatric: Appropriate mood and affect for situation. Neurological: Alert and keenly responsive. CN II-XII grossly intact, moving all extremities equally and fully. MDM: - Vitals signs stable - History obtained via patient. History as above. - Chronic conditions affecting care: CKD; hypercalcemia; hyperparathyroidism; multiple sclerosis - Differential diagnoses include, but are not limited to: Biliary colic; cholangitis; cholecystitis; hepatitis; right lower lobe pneumonia; pulmonary embolism; pyelonephritis; herpes zoster; perforated duodenal ulcer - Order placed for continuous cardiac monitoring. At this time, monitor showed rate of 80 bpm with normal sinus rhythm, per my interpretation. - External medical records reviewed. Discharge summary dated 05/31/2023 was reviewed. Patient was admitted at that time for vomiting due to a UTI. He had sepsis secondary to UTI as well. - Laboratory workup interpreted by myself showed leukocytosis (WBC 21.25) with left shift; stable electrolytes; elevated anion gap (16 - likely from vomiting); elevated lactate (4.0); hypercalcemia (Ca 11.9); normal lipase; normal liver function; normal lactate - UA negative for infection - CT abdomen/pelvis with IV contrast showed noncalcified subcentimeter gallstones layering posterior in the gallbladder. No evidence of gallbladder wall thickening or pericholecystic fluid. No evidence of bowel obstruction. - Patient given 2L NS, 4 mg IV zofran and 50 mcg IV fentanyl in ER. - On reassessment, patient still complaining pain and again vomiting. On repeat abdominal examination, patient is still TTP in RUQ. - Discussed case with general surgeon, Dr. Carreon at 23:06. Discussed concern for patient's leukocytosis and CT scan questionable findings. RUQ US ordered. Agrees with medicine admission and surgery consult. - Discussion was had with pillowcase sewer about patient's case and need for admission - Hospitalist consulted for admission - Patient admitted to [facility] for further evaluation and management. ASSESSMENT AND PLAN: Diagnosis: RUQ abdominal pain; leukocytosis; elevated lactic acid; nausea and vomiting Plan: admit Past Med/Surg History Medical History Onychomycosis Osteoporosis CKD (chronic kidney disease) H/O poor personal hygiene Primary hyperparathyroidism Left leg pain Weakness Multiple sclerosis exacerbation Obstructive uropathy 2/2 renal stone, caused RUBI, pt admitted for this and hypercalcemia 05/2018 Hyperparathyroidism Hypercalcemia Chronic pain syndrome Seizure disorder Many years ago may have had single episode, pt was never treated for this, no reoccurrence. Depression Multiple sclerosis Surgical History History of cystoscopy WITH STENT PLACEMENT 06/14/18 [facility] Family History Father Stroke Thyroid disorder Other Hypertension Kidney stones Social History Smoking Status: Never smoker Tobacco Type: Smokeless Tobacco (Dip or Chew) Cigarettes Per Day: 0; Second Hand Exposure: No; Do You Dip or Chew Tobacco: Yes; Hx Alcohol Use: Yes Alcohol type: beer Hx Substance Use: No Preferred Language: P[place]in[place] Communication Ability: Effective Doper Operator Required: No Beliefs That Will Affect Care: None marital status: Current Living Situation: Parent Current Living Situation Comment: lives with father at home current occupational status: disabled How many Children do You have: 2 Feels Safe at Home: Yes Assistive Devices: Hospital Bed, Walker and Wheelchair Allergies Allergies Allergy/AdvReac Type Severity Reaction Status Date / Time aspirin Allergy Severe airway Verified 03/04/23 19:11 edema; hives Home Meds Home Medications Medication Instructions Recorded Confirmed tizanidine 2 mg tablet 2 mg PO DAILY PRN Muscle Spasm 02/13/23 05/26/23 apixaban 5 mg tablet (Eliquis) 5 mg PO BID 03/04/23 05/26/23 cinacalcet 30 mg tablet 30 mg PO BID 03/04/23 06/09/23 fluoxetine 20 mg capsule 20 mg PO DAILY 03/04/23 06/09/23 acetaminophen 500 mg tablet 1,000 mg PO Q6H PRN PAIN/FEVER 05/26/23 06/09/23 (Tylenol Extra Strength) Previous Rx's Medication Instructions Recorded ondansetron 4 mg disintegrating 4 mg PO Q6H PRN nausea and 02/13/23 tablet vomiting #15 tabs cyanocobalamin (vitamin B-12) 1,000 mcg PO DAILY #90 tabs 05/31/23 1,000 mcg tablet gabapentin 100 mg capsule 100 mg PO TID #90 caps 05/31/23 pantoprazole 40 mg tablet,delayed 40 mg PO DAILY #30 tabs 05/31/23 release sennosides 8.6 mg tablet (Senokot) 17.2 mg (2 x 8.6 mg) PO QAM #30 05/31/23 tabs Results & Data (ED) Vital Signs Vital Signs - 24 hr 06/09/23 19:31 06/09/23 19:56 06/09/23 19:56 Temperature 36.7 C 36.7 C Temperature Source Oral Oral Pulse Rate 91 H 80 Pulse Rate [Apical] 80 Respiratory Rate 16 16 Blood Pressure 139/82 Blood Pressure [Right Arm] 139/82 Blood Pressure Mean 101 Blood Pressure Mean [Right Arm] 101 Pulse Oximetry 95 95 Oxygen Delivery Method Room Air Room Air Sepsis Recent Fever Within 48 Hours No Sepsis New/Unexplained Change in Mental Status No Sepsis Action Taken by Nursing No Action Required 06/09/23 19:56 06/09/23 22:21 Temperature Temperature Source Pulse Rate Pulse Rate [Apical] 80 Respiratory Rate 16 Blood Pressure Blood Pressure [Right Arm] 143/77 H Blood Pressure Mean Blood Pressure Mean [Right Arm] 99 Pulse Oximetry 95 94 Oxygen Delivery Method Room Air Room Air Sepsis Recent Fever Within 48 Hours Sepsis New/Unexplained Change in Mental Status Sepsis Action Taken by Nursing Laboratory Data 06/09/23 19:20 06/09/23 19:20 Lab Results 06/09/23 06/09/23 Range/Units 19:20 20:53 WBC 21.25 H (4.8-10.8) K/ul RBC 4.93 (4.70-6.10) M/uL Hgb 15.6 (14.0-18.0) g/dl Hct 47.2 (42.0-52.0) % MCV 95.7 (80.0-100.0) fL MCH 31.6 (25.0-34.0) pg MCHC 33.1 (32.0-36.0) g/dL RDW Std Deviation 45.3 (36.4-46.3) fL RDW Coeff of Bret 12.7 (11.5-14.5) % Plt Count 353 (130-400) K/uL MPV 9.7 (9.4-12.4) fL Immature Gran % (Auto) 1.7 % Neut % (Auto) 85.5 % Lymph % (Auto) 4.7 % [place] % (Auto) 7.5 % Eos % (Auto) 0.1 % Baso % (Auto) 0.5 % Neut # (Auto) 18.17 H (1.40-6.50) K/uL Lymph # (Auto) 0.99 L (1.20-3.40) K/uL [place] # (Auto) 1.59 H (0.11-0.59) K/uL Eos # (Auto) 0.03 (0.00-0.50) K/uL Baso # (Auto) 0.11 (0.00-0.20) K/uL Immature Gran # (Auto) 0.36 H (0.01-0.20) K/uL PT 9.5 (9.0-12.0) Seconds INR 0.9 (0.9-1.1) Sodium 141 (136-145) mmol/L Potassium 3.8 (3.5-5.1) mmol/L Chloride 108 H (98-107) mmol/L Carbon Dioxide 17 L (21-32) mmol/L Anion Gap 16 H (3-11) BUN 19 (6-23) mg/dl Creatinine 1.15 (0.6-1.4) mg/dl Est Cr Clr Drug Dosing 90.3 ml/min Est GFR ( Amer) 86.1 ml/min Est GFR (Non-Af Amer) 74.3 ml/min BUN/Creatinine Ratio 16.5 (10-20) Glucose 115 H (70-99(Fasting)) mg/dl Lactate 4.0 H* (0.4-2.0) mmol/L Calcium 11.9 H (8.6-10.3) mg/dl Total Bilirubin 0.3 (0.2-1.0) mg/dl AST 23 (13-39) U/L ALT 43 (7-52) U/L Alkaline Phosphatase 52 (34-104) U/L Troponin I High Sens < 2.3 (0-20) pg/ml Total Protein 7.6 (6.0-8.3) gm/dl Albumin 4.5 (3.4-5.0) gm/dl Globulin 3.1 (2.5-4.0) gm/dl Albumin/Globulin Ratio 1.5 (0.9-2) Lipase 63 (11-82) U/L Procalcitonin 0.36 (0-0.5) ng/ml Urine Color Yellow Urine Appearance Clear (Clear) Urine pH 6.0 (4.5-7.5) Ur Specific [place] 1.008 (1.000-1.030) Urine Protein Trace H (Negative) Urine Glucose (UA) Negative (Negative) Urine Ketones Negative (Negative) Urine Blood 3+ H (Negative) Urine Nitrite Negative (Negative) Urine Bilirubin Negative (Negative) Urine Urobilinogen Negative (Negative) Ur Leukocyte Esterase Trace H (Negative) Urine WBC (Auto) 0-5 (0-5) /hpf Urine RBC (Auto) >20 H (0-2) /hpf U Hyaline Cast (Auto) 0-2 (0-2) /lpf U Epithel Cells (Auto) 0-2 (0-2) /hpf Urine Bacteria (Auto) None Seen (None Seen) Administered Medications Discontinued Medications Fentanyl Citrate (Fentanyl Citrate Pf 100 Mcg/2 Ml Vial) 50 mcg IV NOW STA Stop: 04/09/24 23:05 Last Admin: 06/09/23 23:09 Dose: 50 mcg Documented By: MASON Sodium Chloride (Nss) 2,000 mls @ 999 mls/hr IV .Q2H1M ONE Stop: 06/09/23 21:30 Last Infusion: 06/09/23 22:09 Dose: Infused Documented By: Admin: 06/09/23 19:55 Dose: 999 mls/hr Documented By: MASON Ioversol (Optiray 320 100ml) 93 ml IV ONCE ONE Stop: 06/09/23 21:22 Last Admin: 06/09/23 21:21 Dose: 93 ml Documented By: KLEBER Ondansetron HCl (Ondansetron Inj 2 Mg/Ml 2 Ml Vial) Confirm Administered Dose 4 mg .ROUTE .STK-MED ONE Stop: 06/09/23 19:19 Last Admin: 06/09/23 19:55 Dose: Not Given Documented By: MASON Ondansetron HCl (Ondansetron Inj 2 Mg/Ml 2 Ml Vial) 4 mg IV NOW STA Stop: 06/09/23 19:57 Last Admin: 06/09/23 20:12 Dose: 4 mg Documented By: MASON Imaging Data Radiologist's Impression: Abdomen/Pelvis CT 06/09/23 19:56 Exam(s): CT ABDOMEN + PELVIS With Contrast IV Amt: 93 ml opti 320 EXAM: CT Abdomen and Pelvis With Intravenous Contrast CLINICAL HISTORY: RUQ abdominal pain; vomiting. TECHNIQUE: Axial computed tomography images of the abdomen and pelvis with intravenous contrast. CTDI is 27.3 mGy and DLP is 1475.83 mGy-cm. Automated exposure control was utilized for the study. A dose lowering technique was utilized adhering to the principles of ALARA. CONTRAST: Patient received 93 ml opti 320 of IV contrast COMPARISON: CT abdomen and pelvis without contrast dated 05/26/2023 FINDINGS: Limitations: There is respiratory artifact, which degrades image quality on multiple image slices. Lung bases: Unremarkable. No mass. No consolidation. ABDOMEN: Liver: Unremarkable. No mass. Gallbladder and bile ducts: Noncalcified subcentimeter gallstones again noted layering posteriorly in the gallbladder. No CT evidence for gallbladder wall thickening or pericholecystic fluid. No biliary dilatation or evidence to suggest choledocholithiasis. Pancreas: Unremarkable. No mass. No ductal dilation. Spleen: Unremarkable. No splenomegaly. Adrenals: Unremarkable. No mass. Kidneys and ureters: The left kidney is stable in appearance with mild hydronephrosis and stable appearing stone burden, most prominent in the renal pelvis. Similar appearance of the proximal left ureter without ureterectasis. Subcentimeter nonobstructive nephrolithiasis inferiorly on the right. There is a cortical cyst involving the superior medial aspect of the right kidney, measuring 2 cm with subtle rim age felt type calcification. No obvious enhancing solid components. No right-sided hydronephrosis. Stomach and bowel: Stomach is decompressed with minimal gas and fluid. No gastric mucosal thickening. No evidence for bowel obstruction. No asymmetric bowel mucosal abnormality. Mild stool burden. No diverticulitis. PELVIS: Appendix: A normal retrocecal appendix is noted. Bladder: Unremarkable. No mass. Reproductive: Unremarkable as visualized. ABDOMEN and PELVIS: Intraperitoneal space: Unremarkable. No free air. No significant fluid collection. Bones/joints: No acute fracture. No dislocation. Soft tissues: Unremarkable. Vasculature: Unremarkable. No abdominal aortic aneurysm. Lymph nodes: Unremarkable. No enlarged lymph nodes. IMPRESSION: 1. Noncalcified subcentimeter gallstones again noted layering posteriorly in the gallbladder. No CT evidence for gallbladder wall thickening or pericholecystic fluid. No biliary dilatation or evidence to suggest choledocholithiasis. 2. No evidence for bowel obstruction. No asymmetric bowel mucosal abnormality. Mild stool burden. No diverticulitis. No free intraperitoneal fluid or pneumoperitoneum. Incidental normal caliber appendix. 3. Stable appearance of the kidneys, as detailed above, with bilateral nephrolithiasis, left greater than right. No evidence for pyelonephritis. Electronically signed by: Nagi Man MD 06/09/23 21:50 PM Discharge Plan Visit Data Chief Complaint: Vomiting Stated Complaint: VOMITING, L SIDED PAIN ED Provider: Carol Bermeo Discharge Problem: Abdominal pain, RUQ, Nausea & vomiting, Leukocytosis, Elevated lactic acid level Forms Stand Alone Forms: [facility] [employer] Prescriptions Prescriptions: No Action tizanidine 2 mg tablet 2 mg PO DAILY PRN (Reason: Muscle Spasm) ondansetron 4 mg tablet,disintegrating 4 mg PO Q6H PRN (Reason: nausea and vomiting) Qty: 15 0RF cinacalcet 30 mg tablet 30 mg PO BID fluoxetine 20 mg capsule 20 mg PO DAILY Eliquis 5 mg tablet 5 mg PO BID acetaminophen [Tylenol Extra Strength] 500 mg Tablet 1,000 mg PO Q6H PRN (Reason: PAIN/FEVER) gabapentin 100 mg Capsule 100 mg PO TID Qty: 90 2RF pantoprazole 40 mg Tablet,Delayed Release (Dr/Ec) 40 mg PO DAILY Qty: 30 1RF cyanocobalamin (vitamin B-12) 1,000 mcg tablet 1,000 mcg PO DAILY Qty: 90 1RF Rx Instructions: purchase [id number] sennosides [Senokot] 8.6 mg Tablet 17.2 mg PO QAM Qty: 30 0RF Rx Instructions: purchase [id number] Referrals Referrals: Louis Hale [Primary Care Provider] -
[2023-06-09 20:19] LABS: Alanine Aminotransferase 43 U/L (7-52); Albumin Globulin Ratio 1.5 (0.9-2); Albumin Level 4.5 gm/dl (3.4-5.0); Alkaline Phosphatase 52 U/L (34-104); Anion Gap 16 (3-11); Aspartate Aminotransferase 23 U/L (13-39); BUN Creatinine Ratio 16.5 (10-20); Bilirubin,Total 0.3 mg/dl (0.2-1.0); Blood Urea Nitrogen 19 mg/dl (6-23); Calcium 11.9 mg/dl (8.6-10.3); Carbon Dioxide 17 mmol/L (21-32); Chloride 108 mmol/L (98-107); Creatinine Clr Calc Pharmacy 90.3 ml/min; Est GFR (African American) 86.1 ml/min; Est GFR (Non-African American) 74.3 ml/min; Globulin 3.1 gm/dl (2.5-4.0); Glucose 115 mg/dl (70-99(Fasting)); Lipase 63 U/L (11-82); Potassium 3.8 mmol/L (3.5-5.1); Sodium 141 mmol/L (136-145); Total Protein 7.6 gm/dl (6.0-8.3)
[2023-06-09 20:21] LABS: INR 0.9 (0.9-1.1); Prothrombin Time 9.5 Seconds (9.0-12.0)
[2023-06-09 20:25] LABS: Troponin I High Sensitivity < 2.3 pg/ml (0-20)
[2023-06-09] MEDS: OPTIRAY 320 100ml IV ONE (21:21)
[2023-06-09 21:37] LABS: Appearance Urine Clear (Clear); Bacteria Urine Automated None Seen (None Seen); Bilirubin Urine Negative (Negative); Blood Urine 3+ (Negative); Cast Urine Automated 0-2 /lpf (0-2); Color Urine Yellow; Epithelial Cell Urine Auto 0-2 /hpf (0-2); Glucose Urine UA Negative (Negative); Ketones Urine Negative (Negative); Leukocyte Esterase Urine Trace (Negative); Nitrite Urine Negative (Negative); Protein Urine Trace (Negative); RBC Urine Automated >20 /hpf (0-2); Specific Gravity Urine 1.008 (1.000-1.030); Urobilinogen Urine Negative (Negative); WBC Urine Automated 0-5 /hpf (0-5)
--- NOTE | 2023-06-09 21:51 | CT Scan Report ---
Exam(s): CT ABDOMEN + PELVIS With Contrast IV Amt: 93 ml opti 320 EXAM: CT Abdomen and Pelvis With Intravenous Contrast CLINICAL HISTORY: RUQ abdominal pain; vomiting. TECHNIQUE: Axial computed tomography images of the abdomen and pelvis with intravenous contrast. CTDI is 27.3 mGy and DLP is 1475.83 mGy-cm. Automated exposure control was utilized for the study. A dose lowering technique was utilized adhering to the principles of ALARA. CONTRAST: Patient received 93 ml opti 320 of IV contrast COMPARISON: CT abdomen and pelvis without contrast dated 05/26/2023 FINDINGS: Limitations: There is respiratory artifact, which degrades image quality on multiple image slices. Lung bases: Unremarkable. No mass. No consolidation. ABDOMEN: Liver: Unremarkable. No mass. Gallbladder and bile ducts: Noncalcified subcentimeter gallstones again noted layering posteriorly in the gallbladder. No CT evidence for gallbladder wall thickening or pericholecystic fluid. No biliary dilatation or evidence to suggest choledocholithiasis. Pancreas: Unremarkable. No mass. No ductal dilation. Spleen: Unremarkable. No splenomegaly. Adrenals: Unremarkable. No mass. Kidneys and ureters: The left kidney is stable in appearance with mild hydronephrosis and stable appearing stone burden, most prominent in the renal pelvis. Similar appearance of the proximal left ureter without ureterectasis. Subcentimeter nonobstructive nephrolithiasis inferiorly on the right. There is a cortical cyst involving the superior medial aspect of the right kidney, measuring 2 cm with subtle rim age felt type calcification. No obvious enhancing solid components. No right-sided hydronephrosis. Stomach and bowel: Stomach is decompressed with minimal gas and fluid. No gastric mucosal thickening. No evidence for bowel obstruction. No asymmetric bowel mucosal abnormality. Mild stool burden. No diverticulitis. PELVIS: Appendix: A normal retrocecal appendix is noted. Bladder: Unremarkable. No mass. Reproductive: Unremarkable as visualized. ABDOMEN and PELVIS: Intraperitoneal space: Unremarkable. No free air. No significant fluid collection. Bones/joints: No acute fracture. No dislocation. Soft tissues: Unremarkable. Vasculature: Unremarkable. No abdominal aortic aneurysm. Lymph nodes: Unremarkable. No enlarged lymph nodes. IMPRESSION: 1. Noncalcified subcentimeter gallstones again noted layering posteriorly in the gallbladder. No CT evidence for gallbladder wall thickening or pericholecystic fluid. No biliary dilatation or evidence to suggest choledocholithiasis. 2. No evidence for bowel obstruction. No asymmetric bowel mucosal abnormality. Mild stool burden. No diverticulitis. No free intraperitoneal fluid or pneumoperitoneum. Incidental normal caliber appendix. 3. Stable appearance of the kidneys, as detailed above, with bilateral nephrolithiasis, left greater than right. No evidence for pyelonephritis. Electronically signed by: Nagi Man MD 06/09/23 21:50 PM
[2023-06-09] MEDS: fentaNYL citrate PF 100 MCG/2 ML VIAL IV STA (23:09)
--- NOTE | 2023-06-09 23:59 | History & Physical Report ---
Date of Service June 09, 2023 Assessment & Plan (1) Nausea & vomiting: Plan: 47-year-old male presenting with nausea, vomiting, diarrhea. Ongoing symptoms for the last several days with acute worsening today around 1500. Patient afebrile with stable. Nontoxic in appearance. He does have significant leukocytosis with WBC = 21.25. Lactate initially elevated at 4 which improved to 2.3 after IV fluid resuscitation. CT of the abdomen pelvis as above notes presence of gallstones with no CT evidence of acute cholecystitis or choledocholithiasis. Gallbladder ultrasound confirms the same. No evidence of acute cholecystitis. Possible gastroenteritis, possible abdominal complaints from hypercalcemia? Admit to medical telemetry check stool PCR -Follow cultures sent from the ER Continue IV fluids with normal saline at 125 mL/h x 2 L -Continue empiric Zosyn for now General surgery has been consulted from the ER -appreciate assistance Tylenol and morphine as needed for pain Zofran as needed for nausea (2) Primary hyperparathyroidism: Plan: Patient with primary hyperparathyroidism. Has had hypercalcemia in the past. He is on Cinacalcet 30 mg p.o. twice daily. Mild hypercalcemia today with calcium = 11.9 -Continue IV fluids, normal saline at 125 mL/h x 2 L Continue Cinacalcet Repeat chemistry in the morning. (3) CKD (chronic kidney disease): Plan: BUN/creatinine near baseline Avoid nephrotoxic agents Repeat chemistry in the morning (4) DVT (deep venous thrombosis): Plan: Patient is on anticoagulation with Eliquis for DVT Continue home Eliquis (5) Multiple sclerosis: Plan: Patient with MS. Chronic left-sided weakness, wheelchair-bound Turning position as needed Continue tizanidine History of Present Illness Chief Complaint: Nausea, vomiting, diarrhea and abdominal pain. Primary Care Provider: Louis Hale Mazin Ramirez is a pleasant 47-year-old male presenting with acute onset of nausea, vomiting and diarrhea. Patient with history of MS with chronic left- sided deficit, wheelchair-bound, seizure disorder, CKD and prior DVT on Eliquis anticoagulation. He reports over the last couple of days he has felt generally weak with waves of nausea, poor appetite and decreased oral intake. Today around 1500 he developed severe nausea with multiple episodes of nonbloody/nonbilious emesis. Patient reports at least 15 episodes of vomiting. He also had several episodes of nonbloody diarrhea as well as diffuse abdominal pain. His nausea has persisted throughout the day. Has not been able to eat much. Possibly with fevers some cold sweats. Denies cough, shortness of breath, chest pain, palpitations. Denies rash or urinary complaints Denies right upper quadrant pain or postprandial symptoms. Patient recently restarted his home gabapentin. Also recently diagnosed with a UTI and just completed his antibiotics In the ER patient is afebrile, hemodynamically stable, ongoing nausea and abdominal pain ER course: Normal saline x 2 L Zofran 4 mg IV Extra 50 mcg IV Zosyn 4.5 g IV Morphine 4 mg IV Allergies Allergy/AdvReac Type Severity Reaction Status Date / Time aspirin Allergy Severe airway Verified 03/04/23 19:11 edema; hives Home Medications Medication Instructions Recorded Confirmed Type tizanidine 2 mg tablet 2 mg PO DAILY PRN Muscle Spasm 02/13/23 06/09/23 History apixaban 5 mg tablet (Eliquis) 5 mg PO BID 03/04/23 06/09/23 History cinacalcet 30 mg tablet 30 mg PO BID 03/04/23 06/09/23 History fluoxetine 20 mg capsule 20 mg PO HS 03/04/23 06/09/23 History acetaminophen 500 mg tablet 1,000 mg PO Q6H PRN PAIN/FEVER 05/26/23 06/09/23 History (Tylenol Extra Strength) gabapentin 100 mg capsule 100 mg PO TID #90 caps 05/31/23 06/09/23 Rx sennosides 8.6 mg tablet (Senokot) 17.2 mg (2 x 8.6 mg) PO QAM #30 05/31/23 06/09/23 Rx tabs pantoprazole 40 mg tablet,delayed 40 mg PO HS 06/09/23 06/09/23 History release Past Med/Surg History Medical History Onychomycosis Osteoporosis CKD (chronic kidney disease) H/O poor personal hygiene Primary hyperparathyroidism Left leg pain Weakness Multiple sclerosis exacerbation Obstructive uropathy 2/2 renal stone, caused RUBI, pt admitted for this and hypercalcemia 05/2018 Hyperparathyroidism Hypercalcemia Chronic pain syndrome Seizure disorder Many years ago may have had single episode, pt was never treated for this, no reoccurrence. Depression Multiple sclerosis Surgical History History of cystoscopy WITH STENT PLACEMENT 06/14/18 [facility] Family History Father Stroke Thyroid disorder Other Hypertension Kidney stones Social History Smoking Status: Never smoker Tobacco Type: Smokeless Tobacco (Dip or Chew) Cigarettes Per Day: 0; Second Hand Exposure: No; Do You Dip or Chew Tobacco: Yes; Hx Alcohol Use: Yes Alcohol type: beer Hx Substance Use: No Preferred Language: Croatian Communication Ability: Effective Food Supervisor Required: No Beliefs That Will Affect Care: None marital status: Current Living Situation: Parent Current Living Situation Comment: lives with father at home current occupational status: disabled How many Children do You have: 2 Feels Safe at Home: Yes Assistive Devices: Hospital Bed, Walker and Wheelchair Review of Systems Review of Systems: All systems reviewed & are unremarkable except as noted in HPI & below Physical Exam Physical Exam: General: patient resting comfortably, NAD, non-toxic in appearance, AA&O x 4 Skin: warm, dry, intact, no rashes or lesions HEENT: NC/AT, PERRL, EOMI, anicteric sclera, conjunctiva without injection, external ear normal to inspection and nontender, nares patent, moist mucus membranes, dentition intact, no oropharyngeal lesions, neck supple, trachea midline, no LAD, no thyromegaly, no JVD Heart: +S1/S2, regular, no m/r/g Lungs: equal air entry bilaterally, no rales/rhonchi/wheezes Abd: +BS, soft, ND, diffusely tender mostly in epigastric area, RUQ and RLQ, no rebound/guarding, no masses/organomegaly/ascites Ext: warm, 2+ pulses in UE/LE bilaterally, no clubbing/cyanosis or edema Neuro: nonfocal, patient AA&O x 4, speech intact, no facial droop, moving all extremities, chronic left sided weakness 3/5 Results & Data Results & Data Vital Signs (Past 12 Hours) Vital Signs Temp Pulse Pulse Resp BP BP Pulse Ox 06/09/23 23:22 88 06/09/23 22:21 80 16 143/77 H 94 06/09/23 19:56 95 06/09/23 19:56 36.7 C 80 16 139/82 95 06/09/23 19:56 36.7 C 80 16 139/82 95 06/09/23 19:31 91 H O2 Del Method 06/09/23 23:22 06/09/23 22:21 Room Air 06/09/23 19:56 Room Air 06/09/23 19:56 Room Air 06/09/23 19:56 Room Air 06/09/23 19:31 Laboratory Results Laboratory Results WBC 21.25 K/ul (4.8-10.8) H 06/09/23 19:20 RBC 4.93 M/uL (4.70-6.10) 06/09/23 19:20 Hgb 15.6 g/dl (14.0-18.0) 06/09/23 19:20 Hct 47.2 % (42.0-52.0) 06/09/23 19:20 MCV 95.7 fL (80.0-100.0) 06/09/23 19:20 MCH 31.6 pg (25.0-34.0) 06/09/23 19:20 MCHC 33.1 g/dL (32.0-36.0) 06/09/23 19:20 RDW Std Deviation 45.3 fL (36.4-46.3) 06/09/23 19:20 RDW Coeff of Bret 12.7 % (11.5-14.5) 06/09/23 19:20 Plt Count 353 K/uL (130-400) 06/09/23 19:20 MPV 9.7 fL (9.4-12.4) 06/09/23 19:20 Immature Gran % (Auto) 1.7 % 06/09/23 19:20 Neut % (Auto) 85.5 % 06/09/23 19:20 Lymph % (Auto) 4.7 % 06/09/23 19:20 [place] % (Auto) 7.5 % 06/09/23 19:20 Eos % (Auto) 0.1 % 06/09/23 19:20 Baso % (Auto) 0.5 % 06/09/23 19:20 Neut # (Auto) 18.17 K/uL (1.40-6.50) H 06/09/23 19:20 Lymph # (Auto) 0.99 K/uL (1.20-3.40) L 06/09/23 19:20 [place] # (Auto) 1.59 K/uL (0.11-0.59) H 06/09/23 19:20 Eos # (Auto) 0.03 K/uL (0.00-0.50) 06/09/23 19:20 Baso # (Auto) 0.11 K/uL (0.00-0.20) 06/09/23 19:20 Immature Gran # (Auto) 0.36 K/uL (0.01-0.20) H 06/09/23 19:20 PT 9.5 Seconds (9.0-12.0) 06/09/23 19:20 INR 0.9 (0.9-1.1) 06/09/23 19:20 Sodium 141 mmol/L (136-145) 06/09/23 19:20 Potassium 3.8 mmol/L (3.5-5.1) 06/09/23 19:20 Chloride 108 mmol/L (98-107) H 06/09/23 19:20 Carbon Dioxide 17 mmol/L (21-32) L 06/09/23 19:20 Anion Gap 16 (3-11) H 06/09/23 19:20 BUN 19 mg/dl (6-23) 06/09/23 19:20 Creatinine 1.15 mg/dl (0.6-1.4) 06/09/23 19:20 Est Cr Clr Drug Dosing 90.3 ml/min 06/09/23 19:20 Est GFR ( Amer) 86.1 ml/min 06/09/23 19:20 Est GFR (Non-Af Amer) 74.3 ml/min 06/09/23 19:20 BUN/Creatinine Ratio 16.5 (10-20) 06/09/23 19:20 Glucose 115 mg/dl (70-99(Fasting)) H 06/09/23 19:20 Lactate 2.3 mmol/L (0.4-2.0) H* 06/09/23 23:27 Calcium 11.9 mg/dl (8.6-10.3) H 06/09/23 19:20 Total Bilirubin 0.3 mg/dl (0.2-1.0) 06/09/23 19:20 AST 23 U/L (13-39) 06/09/23 19:20 ALT 43 U/L (7-52) 06/09/23 19:20 Alkaline Phosphatase 52 U/L (34-104) 06/09/23 19:20 Troponin I High Sens < 2.3 pg/ml (0-20) 06/09/23 19:20 Total Protein 7.6 gm/dl (6.0-8.3) 06/09/23 19:20 Albumin 4.5 gm/dl (3.4-5.0) 06/09/23 19:20 Globulin 3.1 gm/dl (2.5-4.0) 06/09/23 19:20 Albumin/Globulin Ratio 1.5 (0.9-2) 06/09/23 19:20 Lipase 63 U/L (11-82) 06/09/23 19:20 Procalcitonin 0.36 ng/ml (0-0.5) 06/09/23 19:20 Urine Color Yellow 06/09/23 20:53 Urine Appearance Clear (Clear) 06/09/23 20:53 Urine pH 6.0 (4.5-7.5) 06/09/23 20:53 Ur Specific [place] 1.008 (1.000-1.030) 06/09/23 20:53 Urine Protein Trace (Negative) H 06/09/23 20:53 Urine Glucose (UA) Negative (Negative) 06/09/23 20:53 Urine Ketones Negative (Negative) 06/09/23 20:53 Urine Blood 3+ (Negative) H 06/09/23 20:53 Urine Nitrite Negative (Negative) 06/09/23 20:53 Urine Bilirubin Negative (Negative) 06/09/23 20:53 Urine Urobilinogen Negative (Negative) 06/09/23 20:53 Ur Leukocyte Esterase Trace (Negative) H 06/09/23 20:53 Urine WBC (Auto) 0-5 /hpf (0-5) 06/09/23 20:53 Urine RBC (Auto) >20 /hpf (0-2) H 06/09/23 20:53 U Hyaline Cast (Auto) 0-2 /lpf (0-2) 06/09/23 20:53 U Epithel Cells (Auto) 0-2 /hpf (0-2) 06/09/23 20:53 Urine Bacteria (Auto) None Seen (None Seen) 06/09/23 20:53 Impressions Abdomen/Pelvis CT 06/09/23 19:56 Exam(s): CT ABDOMEN + PELVIS With Contrast IV Amt: 93 ml opti 320 EXAM: CT Abdomen and Pelvis With Intravenous Contrast CLINICAL HISTORY: RUQ abdominal pain; vomiting. TECHNIQUE: Axial computed tomography images of the abdomen and pelvis with intravenous contrast. CTDI is 27.3 mGy and DLP is 1475.83 mGy-cm. Automated exposure control was utilized for the study. A dose lowering technique was utilized adhering to the principles of ALARA. CONTRAST: Patient received 93 ml opti 320 of IV contrast COMPARISON: CT abdomen and pelvis without contrast dated 05/26/2023 FINDINGS: Limitations: There is respiratory artifact, which degrades image quality on multiple image slices. Lung bases: Unremarkable. No mass. No consolidation. ABDOMEN: Liver: Unremarkable. No mass. Gallbladder and bile ducts: Noncalcified subcentimeter gallstones again noted layering posteriorly in the gallbladder. No CT evidence for gallbladder wall thickening or pericholecystic fluid. No biliary dilatation or evidence to suggest choledocholithiasis. Pancreas: Unremarkable. No mass. No ductal dilation. Spleen: Unremarkable. No splenomegaly. Adrenals: Unremarkable. No mass. Kidneys and ureters: The left kidney is stable in appearance with mild hydronephrosis and stable appearing stone burden, most prominent in the renal pelvis. Similar appearance of the proximal left ureter without ureterectasis. Subcentimeter nonobstructive nephrolithiasis inferiorly on the right. There is a cortical cyst involving the superior medial aspect of the right kidney, measuring 2 cm with subtle rim age felt type calcification. No obvious enhancing solid components. No right-sided hydronephrosis. Stomach and bowel: Stomach is decompressed with minimal gas and fluid. No gastric mucosal thickening. No evidence for bowel obstruction. No asymmetric bowel mucosal abnormality. Mild stool burden. No diverticulitis. PELVIS: Appendix: A normal retrocecal appendix is noted. Bladder: Unremarkable. No mass. Reproductive: Unremarkable as visualized. ABDOMEN and PELVIS: Intraperitoneal space: Unremarkable. No free air. No significant fluid collection. Bones/joints: No acute fracture. No dislocation. Soft tissues: Unremarkable. Vasculature: Unremarkable. No abdominal aortic aneurysm. Lymph nodes: Unremarkable. No enlarged lymph nodes. IMPRESSION: 1. Noncalcified subcentimeter gallstones again noted layering posteriorly in the gallbladder. No CT evidence for gallbladder wall thickening or pericholecystic fluid. No biliary dilatation or evidence to suggest choledocholithiasis. 2. No evidence for bowel obstruction. No asymmetric bowel mucosal abnormality. Mild stool burden. No diverticulitis. No free intraperitoneal fluid or pneumoperitoneum. Incidental normal caliber appendix. 3. Stable appearance of the kidneys, as detailed above, with bilateral nephrolithiasis, left greater than right. No evidence for pyelonephritis. Electronically signed by: Nagi Man MD 06/09/23 21:50 PM Gallbladder Ultrasound 06/09/23 23:12 Exam(s): US GALLBLADDER EXAM: US Abdomen Limited, Gallbladder CLINICAL HISTORY: RUQ abdominal pain; vomiting. TECHNIQUE: Real-time ultrasound of the right upper quadrant with image documentation. COMPARISON: CT abdomen and pelvis with contrast performed at 2114 hrs. FINDINGS: Liver: The liver is enlarged measuring 18.5 cm in length. The portal vein is pain with flow directed towards the liver. Gallbladder: The gallstones noted on the CT examination are identified sonographically with posterior shadowing. The gallbladder wall measures only 1.8 mm. No pericholecystic fluid. Evaluation for a sonographic Oconnell sign is reportedly not possible secondary to the patient's medication status. Common bile duct: The common bile duct measures 2.8 mm. No stones. No dilation. Pancreas: The pancreas is obscured by bowel gas pattern. Right kidney: The right kidney measures 10.8 x 5.3 x 4.9 cm. The cortical cyst noted posterior medially is not clearly delineated on submitted imaging. Free fluid: No free fluid. IMPRESSION: The gallstones noted on the CT examination are identified sonographically with posterior shadowing. No gallbladder wall thickening or pericholecystic fluid. Evaluation for a sonographic Oconnell sign is reportedly not possible secondary to the patient's medication status. No biliary dilatation. Electronically signed by: Nagi Man MD 06/10/23 01:26 AM ECG Additional Comments: EKG per my interpretation shows sinus tachycardia with rate of 119 bpm, normal axis, KS = 164, QRS = 86, QTc = 454 R wave progression, no acute ischemic changes present Code Status & VTE Plan VTE Prophylaxis Plan VTE Prophylaxis will be ordered: Yes PG Care Time/CCT Total # of Minutes Spent Total Time Spent with Patient: Total time spent is greater than 50% in coordination of care (as documented) at patient's floor/unit and/or counseling patient: Coding Level of Care Code 09075 INT INP/OBS CARE 2/55MIN Diagnoses Nausea & vomiting R11.2 Primary hyperparathyroidism E21.0 CKD (chronic kidney disease) N18.9 DVT (deep venous thrombosis) I82.502 Affected thrombotic vein of extremity: unspecified vein of extremity Chronicity: chronic DVT location: lower extremity Laterality: left Multiple sclerosis G35 (4) DVT (deep venous thrombosis) Affected thrombotic vein of extremity: unspecified vein of extremity Chronicity: chronic DVT location: lower extremity Laterality: left Qualified Code(s): I82.502 - Chronic embolism and thrombosis of unspecified deep veins of left lower extremity
[2023-06-10] MEDS ORDERED: MoRPHine SULFATE 2 MG/ML CARP IV PRN (00:49)
[2023-06-10] MEDS ORDERED: POLYETHYLENE (MIRALAX) 17 GM PACK PO PRN (00:49)
[2023-06-10] MEDS ORDERED: ONDANSETRON INJ 2 MG/ML 2 ML VIAL IV PRN (00:49)
[2023-06-10] MEDS ORDERED: ACETAMINOPHEN 500 MG TAB PO PRN (00:49)
[2023-06-10] MEDS ORDERED: tiZANidine HCL 4 MG TABLET PO PRN (00:49)
[2023-06-10] MEDS: PIPERACILLIN/TAZOBACTAM 4.5 GM/100 ML BAG IV ONE ×2 (00:59→01:07)
--- NOTE | 2023-06-10 01:27 | Ultrasound Report ---
Exam(s): US GALLBLADDER EXAM: US Abdomen Limited, Gallbladder CLINICAL HISTORY: RUQ abdominal pain; vomiting. TECHNIQUE: Real-time ultrasound of the right upper quadrant with image documentation. COMPARISON: CT abdomen and pelvis with contrast performed at 2114 hrs. FINDINGS: Liver: The liver is enlarged measuring 18.5 cm in length. The portal vein is pain with flow directed towards the liver. Gallbladder: The gallstones noted on the CT examination are identified sonographically with posterior shadowing. The gallbladder wall measures only 1.8 mm. No pericholecystic fluid. Evaluation for a sonographic Oconnell sign is reportedly not possible secondary to the patient's medication status. Common bile duct: The common bile duct measures 2.8 mm. No stones. No dilation. Pancreas: The pancreas is obscured by bowel gas pattern. Right kidney: The right kidney measures 10.8 x 5.3 x 4.9 cm. The cortical cyst noted posterior medially is not clearly delineated on submitted imaging. Free fluid: No free fluid. IMPRESSION: The gallstones noted on the CT examination are identified sonographically with posterior shadowing. No gallbladder wall thickening or pericholecystic fluid. Evaluation for a sonographic Oconnell sign is reportedly not possible secondary to the patient's medication status. No biliary dilatation. Electronically signed by: Nagi Man MD 06/10/23 01:26 AM
[2023-06-10] MEDS: MoRPHine SULFATE 4 MG/ML 1 ML CARP\\VIAL IV PRN (01:29)
[2023-06-10] MEDS: SODIUM CHLORIDE 0.9% 1,000 ML IV SCH (04:43)
[2023-06-10 06:58] LABS: Hemoglobin 13.4 g/dl (14.0-18.0); Mean Corpuscular Hemoglobin 31.6 pg (25.0-34.0); Mean Corpuscular Hgb Conc 33.5 g/dL (32.0-36.0); Mean Corpuscular Volume 94.3 fL (80.0-100.0); Mean Platelet Volume 9.6 fL (9.4-12.4); Platelet Count 320 K/uL (130-400); RDW Coefficient of Variation 12.9 % (11.5-14.5); RDW Standard Deviation 44.4 fL (36.4-46.3); Red Blood Count 4.24 M/uL (4.70-6.10); White Blood Count 15.59 K/ul (4.8-10.8)
[2023-06-10] MEDS: PIPERACILLIN/TAZOBACTAM 4.5 GM in DEXTROSE 5% MINI-B 100 ML IV SCH (07:02)
[2023-06-10 07:21] LABS: Albumin Level 3.8 gm/dl (3.4-5.0); BUN Creatinine Ratio 14.6 (10-20); Bilirubin Direct 0.1 mg/dl (0-0.2); Bilirubin,Total 0.6 mg/dl (0.2-1.0); Calcium 10.3 mg/dl (8.6-10.3); Creatinine Clr Calc Pharmacy 79.9 ml/min; Est GFR (African American) 74.3 ml/min; Est GFR (Non-African American) 64.1 ml/min; Potassium 4.9 mmol/L (3.5-5.1); Total Protein 6.3 gm/dl (6.0-8.3)
--- NOTE | 2023-06-10 09:10 | Surgery Consultation ---
Date of Consultation June 10, 2023 Assessment & Plan (1) Elevated lactic acid level: (2) Leukocytosis: (3) Nausea & vomiting: (4) Abdominal pain, RUQ: Plan 47 year-old male with nausea, vomiting, diarrhea, and abdominal pain, Leukocytosis of 22,00 and elevated lactic acid at 4 now 2.[address] scan abd/pelvis and Ultrasound showing gallstones with no evidence of cholecystitis. similar presentation mid april with elevation in leukocytosis and lactic acid but negative imaging. Given persistent gastrointestinal symptoms needs GI evaluation. Could consider HIDA scan with EF as outpatient pending further Gi work-up. No surgical intervention recommended at this time. Dr. Do has seen patient and agrees with above. Supervising Physician Co-Signing Physician Notes I have seen and examined the patient personally and agree with the above assessment and plan. In brief, 2-day history of nausea vomiting and diarrhea associated with abdominal pain. Elevated white blood cell count and lactic acid, now decreasing. CT scan and ultrasound demonstrating gallstones with no evidence of cholecystitis. He has had a prior episode in the past. He was set up to see gastroenterology for further evaluation but has not seen them yet. No surgical indication at this time. I would recommend GI evaluation and outpatient follow-up for potential HIDA scan. Will continue to follow. History of Present Illness Reason for Consultation: RUQ abdominal pain, gallstones Requesting Physician: Carol Bermeo MD Attending Physician: Arina Demarco MD History of Present Illness Mazin Ramirez is a pleasant 47-year-old male presenting with acute onset of nausea, vomiting and diarrhea. Patient has history of MS with chronic left- sided deficit, wheelchair-bound, seizure disorder, CKD and prior DVT on Eliquis anticoagulation. He reports over the last couple of days he has felt generally weak with waves of nausea, poor appetite and decreased oral intake. Then he developed severe nausea with multiple episodes of nonbloody/nonbilious emesis yesterday. About 15 episodes of vomiting. He also had several episodes of nonbloody diarrhea as well as diffuse abdominal pain. Er work-up showed leukocytosis of 22k and lactic acid elevated at [address] scan of abdomen and pelvis with no acute findings. Ultrasound with gallstones however no evidence of acute cholecystitis. In review of record from last admission he had similar GI symptoms with nausea, vomiting, diarrhea with leukocytosis of 20K and lactic acid elevation. Normal imaging at that time. Has not had evaluation by gastroenterology. States he will be incontinent of stool at times. Has never had a colonoscopy, unsure if he has had upper endoscopy. Currently states she is feeling better, no abdominal pain but soreness likely from the vomiting. Vomiting has subsided. No issues with postprandial abdominal pain, nausea, vomiting, or bloatin at baseline, No history of gallbladder issues. Allergies Allergy/AdvReac Type Severity Reaction Status Date / Time aspirin Allergy Severe airway Verified 03/04/23 19:11 edema; hives Home Medications Medication Instructions Recorded Confirmed Type tizanidine 2 mg tablet 2 mg PO DAILY PRN Muscle Spasm 02/13/23 06/09/23 History apixaban 5 mg tablet (Eliquis) 5 mg PO BID 03/04/23 06/09/23 History cinacalcet 30 mg tablet 30 mg PO BID 03/04/23 06/09/23 History fluoxetine 20 mg capsule 20 mg PO HS 03/04/23 06/09/23 History acetaminophen 500 mg tablet 1,000 mg PO Q6H PRN PAIN/FEVER 05/26/23 06/09/23 History (Tylenol Extra Strength) gabapentin 100 mg capsule 100 mg PO TID #90 caps 05/31/23 06/09/23 Rx sennosides 8.6 mg tablet (Senokot) 17.2 mg (2 x 8.6 mg) PO QAM #30 05/31/23 06/09/23 Rx tabs pantoprazole 40 mg tablet,delayed 40 mg PO HS 06/09/23 06/09/23 History release Patient History Medical History Onychomycosis Osteoporosis CKD (chronic kidney disease) H/O poor personal hygiene Primary hyperparathyroidism Left leg pain Weakness Multiple sclerosis exacerbation Obstructive uropathy 2/2 renal stone, caused RUBI, pt admitted for this and hypercalcemia 05/2018 Hyperparathyroidism Hypercalcemia Chronic pain syndrome Seizure disorder Many years ago may have had single episode, pt was never treated for this, no reoccurrence. Depression Multiple sclerosis Surgical History History of cystoscopy WITH STENT PLACEMENT 06/14/18 [facility] Family History Father Stroke Thyroid disorder Other Hypertension Kidney stones Social History Smoking Status: Never smoker Tobacco Type: Smokeless Tobacco (Dip or Chew) Cigarettes Per Day: 0; Second Hand Exposure: No; Do You Dip or Chew Tobacco: Yes; Hx Alcohol Use: Yes Alcohol type: beer Hx Substance Use: No Preferred Language: Haitian Communication Ability: Effective Living Supervisor Required: No Beliefs That Will Affect Care: None marital status: Current Living Situation: Family Current Living Situation Comment: Father and Uncle current occupational status: disabled How many Children do You have: 2 Other Information That Helps Us Care for You: No Feels Safe at Home: Yes Safety Concerns: Feels Safe At This Time Assistive Devices: Wheelchair Review of Systems Review of Systems: All systems reviewed & are unremarkable except as noted in HPI & below Physical Exam Constitutional: WD/WN, vitals as above cooperative and comfortable; no acute distress and not ill appearing Respiratory: normal respiratory effort; no respiratory distress Gastrointestinal (Abdomen): Inspection/Auscultation: abdomen normal to inspection and normal bowel sounds; abdomen not distended Percussion/Palpation: + abdomen tender (Right upper quadrant on deep palpation and negative murphys) and abdomen soft; no guarding, abdomen not rigid and abdomen not firm Skin: no rashes, warm and dry no jaundice Psychiatric: A+Ox3, euthymic affect Results & Data Vital Signs (Past 12 Hours) Vital Signs Temp Pulse Pulse Pulse Resp BP Pulse Ox 06/10/23 08:08 36.5 C 66 16 119/71 95 06/10/23 07:45 66 06/10/23 04:00 64 16 120/70 96 06/10/23 03:00 73 19 124/80 97 06/10/23 02:50 36.7 C 76 16 141/63 H 95 06/10/23 01:00 76 16 141/63 H 95 06/09/23 23:22 88 06/09/23 22:21 80 16 143/77 H 94 O2 Del Method 06/10/23 08:08 Room Air 06/10/23 07:45 06/10/23 04:00 Room Air 06/10/23 03:00 Room Air 06/10/23 02:50 Room Air 06/10/23 01:00 Room Air 06/09/23 23:22 06/09/23 22:21 Room Air Laboratory Results 06/10/23 06/09/23 06/09/23 Range/Units 06:34 23:27 20:53 WBC 15.59 H (4.8-10.8) K/ul RBC 4.24 L (4.70-6.10) M/uL Hgb 13.4 L (14.0-18.0) g/dl Hct 40.0 L (42.0-52.0) % MCV 94.3 (80.0-100.0) fL MCH 31.6 (25.0-34.0) pg MCHC 33.5 (32.0-36.0) g/dL RDW Std Deviation 44.4 (36.4-46.3) fL RDW Coeff of Bret 12.9 (11.5-14.5) % Plt Count 320 (130-400) K/uL MPV 9.6 (9.4-12.4) fL Immature Gran % (Auto) % Neut % (Auto) % Lymph % (Auto) % [place] % (Auto) % Eos % (Auto) % Baso % (Auto) % Neut # (Auto) (1.40-6.50) K/uL Lymph # (Auto) (1.20-3.40) K/uL [place] # (Auto) (0.11-0.59) K/uL Eos # (Auto) (0.00-0.50) K/uL Baso # (Auto) (0.00-0.20) K/uL Immature Gran # (Auto) (0.01-0.20) K/uL PT (9.0-12.0) Seconds INR (0.9-1.1) Sodium 140 (136-145) mmol/L Potassium 4.9 D (3.5-5.1) mmol/L Chloride 108 H (98-107) mmol/L Carbon Dioxide 27 (21-32) mmol/L Anion Gap 5 (3-11) BUN 19 (6-23) mg/dl Creatinine 1.30 (0.6-1.4) mg/dl Est Cr Clr Drug Dosing 79.9 ml/min Est GFR ( Amer) 74.3 ml/min Est GFR (Non-Af Amer) 64.1 ml/min BUN/Creatinine Ratio 14.6 (10-20) Glucose 89 (70-99(Fasting)) mg/dl Lactate 2.3 H* 4.0 H* (0.4-2.0) mmol/L Calcium 10.3 (8.6-10.3) mg/dl Total Bilirubin 0.6 (0.2-1.0) mg/dl Direct Bilirubin 0.1 (0-0.2) mg/dl AST 15 (13-39) U/L ALT 31 (7-52) U/L Alkaline Phosphatase 43 (34-104) U/L Troponin I High Sens (0-20) pg/ml Total Protein 6.3 (6.0-8.3) gm/dl Albumin 3.8 (3.4-5.0) gm/dl Globulin (2.5-4.0) gm/dl Albumin/Globulin Ratio (0.9-2) Lipase (11-82) U/L Procalcitonin (0-0.5) ng/ml Urine Color Yellow Urine Appearance Clear (Clear) Urine pH 6.0 (4.5-7.5) Ur Specific [place] 1.008 (1.000-1.030) Urine Protein Trace H (Negative) Urine Glucose (UA) Negative (Negative) Urine Ketones Negative (Negative) Urine Blood 3+ H (Negative) Urine Nitrite Negative (Negative) Urine Bilirubin Negative (Negative) Urine Urobilinogen Negative (Negative) Ur Leukocyte Esterase Trace H (Negative) Urine WBC (Auto) 0-5 (0-5) /hpf Urine RBC (Auto) >20 H (0-2) /hpf U Hyaline Cast (Auto) 0-2 (0-2) /lpf U Epithel Cells (Auto) 0-2 (0-2) /hpf Urine Bacteria (Auto) None Seen (None Seen) 06/09/23 Range/Units 19:20 WBC 21.25 H (4.8-10.8) K/ul RBC 4.93 (4.70-6.10) M/uL Hgb 15.6 (14.0-18.0) g/dl Hct 47.2 (42.0-52.0) % MCV 95.7 (80.0-100.0) fL MCH 31.6 (25.0-34.0) pg MCHC 33.1 (32.0-36.0) g/dL RDW Std Deviation 45.3 (36.4-46.3) fL RDW Coeff of Bret 12.7 (11.5-14.5) % Plt Count 353 (130-400) K/uL MPV 9.7 (9.4-12.4) fL Immature Gran % (Auto) 1.7 % Neut % (Auto) 85.5 % Lymph % (Auto) 4.7 % [place] % (Auto) 7.5 % Eos % (Auto) 0.1 % Baso % (Auto) 0.5 % Neut # (Auto) 18.17 H (1.40-6.50) K/uL Lymph # (Auto) 0.99 L (1.20-3.40) K/uL [place] # (Auto) 1.59 H (0.11-0.59) K/uL Eos # (Auto) 0.03 (0.00-0.50) K/uL Baso # (Auto) 0.11 (0.00-0.20) K/uL Immature Gran # (Auto) 0.36 H (0.01-0.20) K/uL PT 9.5 (9.0-12.0) Seconds INR 0.9 (0.9-1.1) Sodium 141 (136-145) mmol/L Potassium 3.8 (3.5-5.1) mmol/L Chloride 108 H (98-107) mmol/L Carbon Dioxide 17 L (21-32) mmol/L Anion Gap 16 H (3-11) BUN 19 (6-23) mg/dl Creatinine 1.15 (0.6-1.4) mg/dl Est Cr Clr Drug Dosing 90.3 ml/min Est GFR ( Amer) 86.1 ml/min Est GFR (Non-Af Amer) 74.3 ml/min BUN/Creatinine Ratio 16.5 (10-20) Glucose 115 H (70-99(Fasting)) mg/dl Lactate (0.4-2.0) mmol/L Calcium 11.9 H (8.6-10.3) mg/dl Total Bilirubin 0.3 (0.2-1.0) mg/dl Direct Bilirubin (0-0.2) mg/dl AST 23 (13-39) U/L ALT 43 (7-52) U/L Alkaline Phosphatase 52 (34-104) U/L Troponin I High Sens < 2.3 (0-20) pg/ml Total Protein 7.6 (6.0-8.3) gm/dl Albumin 4.5 (3.4-5.0) gm/dl Globulin 3.1 (2.5-4.0) gm/dl Albumin/Globulin Ratio 1.5 (0.9-2) Lipase 63 (11-82) U/L Procalcitonin 0.36 (0-0.5) ng/ml Urine Color Urine Appearance (Clear) Urine pH (4.5-7.5) Ur Specific [place] (1.000-1.030) Urine Protein (Negative) Urine Glucose (UA) (Negative) Urine Ketones (Negative) Urine Blood (Negative) Urine Nitrite (Negative) Urine Bilirubin (Negative) Urine Urobilinogen (Negative) Ur Leukocyte Esterase (Negative) Urine WBC (Auto) (0-5) /hpf Urine RBC (Auto) (0-2) /hpf U Hyaline Cast (Auto) (0-2) /lpf U Epithel Cells (Auto) (0-2) /hpf Urine Bacteria (Auto) (None Seen) Diagnostic Findings Exam(s): CT ABDOMEN + PELVIS With Contrast IV Amt: 93 ml opti 320 EXAM: CT Abdomen and Pelvis With Intravenous Contrast CLINICAL HISTORY: RUQ abdominal pain; vomiting. TECHNIQUE: Axial computed tomography images of the abdomen and pelvis with intravenous contrast. CTDI is 27.3 mGy and DLP is 1475.83 mGy-cm. Automated exposure control was utilized for the study. A dose lowering technique was utilized adhering to the principles of ALARA. CONTRAST: Patient received 93 ml opti 320 of IV contrast COMPARISON: CT abdomen and pelvis without contrast dated 05/26/2023 FINDINGS: Limitations: There is respiratory artifact, which degrades image quality on multiple image slices. Lung bases: Unremarkable. No mass. No consolidation. ABDOMEN: Liver: Unremarkable. No mass. Gallbladder and bile ducts: Noncalcified subcentimeter gallstones again noted layering posteriorly in the gallbladder. No CT evidence for gallbladder wall thickening or pericholecystic fluid. No biliary dilatation or evidence to suggest choledocholithiasis. Pancreas: Unremarkable. No mass. No ductal dilation. Spleen: Unremarkable. No splenomegaly. Adrenals: Unremarkable. No mass. Kidneys and ureters: The left kidney is stable in appearance with mild hydronephrosis and stable appearing stone burden, most prominent in the renal pelvis. Similar appearance of the proximal left ureter without ureterectasis. Subcentimeter nonobstructive nephrolithiasis inferiorly on the right. There is a cortical cyst involving the superior medial aspect of the right kidney, measuring 2 cm with subtle rim age felt type calcification. No obvious enhancing solid components. No right-sided hydronephrosis. Stomach and bowel: Stomach is decompressed with minimal gas and fluid. No gastric mucosal thickening. No evidence for bowel obstruction. No asymmetric bowel mucosal abnormality. Mild stool burden. No diverticulitis. PELVIS: Appendix: A normal retrocecal appendix is noted. Bladder: Unremarkable. No mass. Reproductive: Unremarkable as visualized. ABDOMEN and PELVIS: Intraperitoneal space: Unremarkable. No free air. No significant fluid collection. Bones/joints: No acute fracture. No dislocation. Soft tissues: Unremarkable. Vasculature: Unremarkable. No abdominal aortic aneurysm. Lymph nodes: Unremarkable. No enlarged lymph nodes. IMPRESSION: 1. Noncalcified subcentimeter gallstones again noted layering posteriorly in the gallbladder. No CT evidence for gallbladder wall thickening or pericholecystic fluid. No biliary dilatation or evidence to suggest choledocholithiasis. 2. No evidence for bowel obstruction. No asymmetric bowel mucosal abnormality. Mild stool burden. No diverticulitis. No free intraperitoneal fluid or pneumoperitoneum. Incidental normal caliber appendix. 3. Stable appearance of the kidneys, as detailed above, with bilateral nephrolithiasis, left greater than right. No evidence for pyelonephritis. Exam(s): US GALLBLADDER EXAM: US Abdomen Limited, Gallbladder CLINICAL HISTORY: RUQ abdominal pain; vomiting. TECHNIQUE: Real-time ultrasound of the right upper quadrant with image documentation. COMPARISON: CT abdomen and pelvis with contrast performed at 2114 hrs. FINDINGS: Liver: The liver is enlarged measuring 18.5 cm in length. The portal vein is pain with flow directed towards the liver. Gallbladder: The gallstones noted on the CT examination are identified sonographically with posterior shadowing. The gallbladder wall measures only 1.8 mm. No pericholecystic fluid. Evaluation for a sonographic Oconnell sign is reportedly not possible secondary to the patient's medication status. Common bile duct: The common bile duct measures 2.8 mm. No stones. No dilation. Pancreas: The pancreas is obscured by bowel gas pattern. Right kidney: The right kidney measures 10.8 x 5.3 x 4.9 cm. The cortical cyst noted posterior medially is not clearly delineated on submitted imaging. Free fluid: No free fluid. IMPRESSION: The gallstones noted on the CT examination are identified sonographically with posterior shadowing. No gallbladder wall thickening or pericholecystic fluid. Evaluation for a sonographic Oconnell sign is reportedly not possible secondary to the patient's medication status. No biliary dilatation.
[2023-06-10] MEDS: APIXABAN 5 MG TABLET PO SCH (09:38)
[2023-06-10] MEDS: CINACALCET HCL 30 MG TAB PO SCH (09:38)
[2023-06-10] MEDS: SENNA 8.6 MG TAB PO SCH (09:38)
[2023-06-10] MEDS: GABAPENTIN 100 MG CAP PO SCH (09:38)
--- NOTE | 2023-06-10 12:47 | Gastrointestinal Consultation ---
Date of Consultation June 10, 2023 Assessment & Plan (1) Nausea & vomiting: Symptoms have seemed to have resolved. This was possibly something viral in nature. He is planned for outpatient work up of gallbladder by surgery. In light of resolution of his symptoms, no need for inpatient GI work up at this time. Would recommend he follow up as an outpatient. Discussed case with Dr. Gamez who also saw and examined patient. - recommend continuation of protonix 40mg once daily. - f/u as outpatient. Supervising Physician Co-Signing Physician Notes Agree with ZARA Farr as above Interviewed and examined patient and agree with above Abd: Soft, NT, ND, +BS GI symptoms have resolved as of this time Continue current therapy and supportive care History of Present Illness Reason for Consultation: vomiting Requesting Physician: Arina Demarco MD Attending Physician: Arina Demarco MD History of Present Illness Patient is a 47 year old male presenting with nausea, vomiting, diarrhea. Ongoing symptoms for the last several days with acute worsening yesterday and patient presented to the ED. During work up he had US and CT 06/08 that had shown gallstones. Surgery is recommending outpatient HIDA scan and GI work up. Patient tells me that since admission he has been feeling well and he has had resolution of his symptoms. Currently, GI ROS unremarkable. he has never had GI work up in the past. Allergies Allergy/AdvReac Type Severity Reaction Status Date / Time aspirin Allergy Severe airway Verified 03/04/23 19:11 edema; hives Home Medications Medication Instructions Recorded Confirmed Type tizanidine 2 mg tablet 2 mg PO DAILY PRN Muscle Spasm 02/13/23 06/09/23 History apixaban 5 mg tablet (Eliquis) 5 mg PO BID 03/04/23 06/09/23 History cinacalcet 30 mg tablet 30 mg PO BID 03/04/23 06/09/23 History fluoxetine 20 mg capsule 20 mg PO HS 03/04/23 06/09/23 History acetaminophen 500 mg tablet 1,000 mg PO Q6H PRN PAIN/FEVER 05/26/23 06/09/23 History (Tylenol Extra Strength) gabapentin 100 mg capsule 100 mg PO TID #90 caps 05/31/23 06/09/23 Rx sennosides 8.6 mg tablet (Senokot) 17.2 mg (2 x 8.6 mg) PO QAM #30 05/31/23 06/09/23 Rx tabs pantoprazole 40 mg tablet,delayed 40 mg PO HS 06/09/23 06/09/23 History release Patient History Medical History Onychomycosis Osteoporosis CKD (chronic kidney disease) H/O poor personal hygiene Primary hyperparathyroidism Left leg pain Weakness Multiple sclerosis exacerbation Obstructive uropathy 2/ renal stone, caused RUBI, pt admitted for this and hypercalcemia 05/2018 Hyperparathyroidism Hypercalcemia Chronic pain syndrome Seizure disorder Many years ago may have had single episode, pt was never treated for this, no reoccurrence. 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 Beliefs That Will Affect Care: None marital status: Current Living Situation: Family Current Living Situation Comment: Father and Uncle current occupational status: disabled How many Children do You have: 2 Other Information That Helps Us Care for You: No Feels Safe at Home: Yes Safety Concerns: Feels Safe At This Time Assistive Devices: Wheelchair Review of Systems Review of Systems: All systems reviewed & are unremarkable except as noted in HPI & below Physical Exam Constitutional: WD/WN, vitals as above Respiratory: normal respiratory effort, lungs clear to auscultation Cardiovascular: RRR, no murmur, no edema Gastrointestinal (Abdomen): normal bowel sounds, soft, nontender, no hepatosplenomegaly Psychiatric: Orientation: alert and oriented x 3 Affect: euthymic affect Results & Data Vital Signs (Past 12 Hours) Vital Signs Temp Pulse Pulse Pulse Resp BP Pulse Ox 06/10/23 11:51 97.5 F L 61 16 111/65 95 06/10/23 09:30 06/10/23 08:08 97.7 F 66 16 119/71 95 06/10/23 07:45 66 06/10/23 04:00 64 16 120/70 96 06/10/23 03:00 73 19 124/80 97 06/10/23 02:50 98.1 F 76 16 141/63 H 95 06/10/23 01:00 76 16 141/63 H 95 O2 Del Method 06/10/23 11:51 Room Air 06/10/23 09:30 Room Air 06/10/23 08:08 Room Air 06/10/23 07:45 06/10/23 04:00 Room Air 06/10/23 03:00 Room Air 06/10/23 02:50 Room Air 06/10/23 01:00 Room Air Coding Level of Care Code 57397 IN/OBS CONSULT LVL 3,45M Diagnoses Nausea & vomiting R11.2
--- NOTE | 2023-06-10 17:07 | Hospitalist Progress Note ---
Date of Service June 10, 2023 Assessment & Plan (1) Nausea & vomiting: Plan: 47-year-old male presenting with nausea, vomiting, diarrhea. Ongoing symptoms for the last several days with acute worsening today around 1500. Patient afebrile with stable. Nontoxic in appearance. He does have significant leukocytosis with WBC = 21.25. Lactate initially elevated at 4 which improved to 2.3 after IV fluid resuscitation. CT of the abdomen pelvis as above notes presence of gallstones with no CT evidence of acute cholecystitis or choledocholithiasis. Gallbladder ultrasound confirms the same. No evidence of acute cholecystitis. Possible gastroenteritis, possible abdominal complaints from hypercalcemia? Admit to medical telemetry check stool PCR -Follow cultures sent from the ER Continue IV fluids with normal saline at 125 mL/h x 2 L -Continue empiric Zosyn for now General surgery has been consulted from the ER -appreciate assistance, no signs of acute cholecystitis diet as tolerated GI input appreciated, PPI outpatient follow up Tylenol and morphine as needed for pain Zofran as needed for nausea (2) Primary hyperparathyroidism: Plan: Patient with primary hyperparathyroidism. Has had hypercalcemia in the past. He is on Cinacalcet 30 mg p.o. twice daily. Mild hypercalcemia today with calcium = 11.9 -Continue IV fluids, normal saline at 125 mL/h x 2 L Continue Cinacalcet Repeat chemistry in the morning. (3) CKD (chronic kidney disease): Plan: BUN/creatinine near baseline Avoid nephrotoxic agents Repeat chemistry in the morning (4) DVT (deep venous thrombosis): Plan: Patient is on anticoagulation with Eliquis for DVT Continue home Eliquis (5) Multiple sclerosis: Plan: Patient with MS. Chronic left-sided weakness, wheelchair-bound Turning position as needed Continue tizanidine Admission and Anticipated Discharge Date Admission Date: June 09, 2023 Subjective reports feeling better, denies abdominal pain Review of Systems Review of Systems: All systems reviewed & are unremarkable except as noted in HPI & below Physical Exam Physical Exam: head atraumatic neck supple chest CTA heart S1S2 regular abdomen soft, nt, nd, BS present extremities lower weakness Results & Data Results & Data Vital Signs (Past 12 Hours) Vital Signs Temp Pulse Pulse Resp BP Pulse Ox O2 Del Method 06/10/23 15:55 36.4 C L 72 16 124/70 97 Room Air 06/10/23 15:00 61 04/10/24 11:51 36.4 C L 61 16 111/65 95 Room Air 06/10/23 09:30 Room Air 06/10/23 08:08 36.5 C 66 16 119/71 95 Room Air 06/10/23 07:45 66 PG Care Time/CCT Total # of Minutes Spent Total Time Spent with Patient: Total time spent is greater than 50% in coordination of care (as documented) at patient's floor/unit and/or counseling patient: Coding Level of Care Code 19623 SUB INP/OBS CARE 2/35MIN Diagnoses Nausea & vomiting R11.2 Primary hyperparathyroidism E21.0 CKD (chronic kidney disease) N18.9 DVT (deep venous thrombosis) I82.502 Affected thrombotic vein of extremity: unspecified vein of extremity Chronicity: chronic DVT location: lower extremity Laterality: left Multiple sclerosis G35 (4) DVT (deep venous thrombosis) Affected thrombotic vein of extremity: unspecified vein of extremity Chronicity: chronic DVT location: lower extremity Laterality: left Qualified Code(s): I82.502 - Chronic embolism and thrombosis of unspecified deep veins of left lower extremity
[2023-06-10] MEDS: PANTOprazole 40 MG TAB PO SCH (20:51)
[2023-06-10] MEDS: FLUoxetine HCL 20 MG CAP PO SCH (20:51)
[2023-06-11 06:12] LABS: Basophils # (auto) 0.06 K/uL (0.00-0.20); Basophils % (auto) 0.6 %; Eosinophils # (auto) 0.11 K/uL (0.00-0.50); Eosinophils % (auto) 1.2 %; Hematocrit (blood only) 39.6 % (42.0-52.0); Hemoglobin 12.9 g/dl (14.0-18.0); Immature Granulocytes # (auto) 0.12 K/uL (0.01-0.20); Immature Granulocytes % (auto) 1.3 %; Lymphocytes # (auto) 1.58 K/uL (1.20-3.40); Lymphocytes % (auto) 16.7 %; Mean Corpuscular Hemoglobin 31.6 pg (25.0-34.0); Mean Corpuscular Hgb Conc 32.6 g/dL (32.0-36.0); Mean Corpuscular Volume 97.1 fL (80.0-100.0); Mean Platelet Volume 9.6 fL (9.4-12.4); Monocytes # (auto) 0.65 K/uL (0.11-0.59); Monocytes % (auto) 6.9 %; Neutrophils # (auto) 6.92 K/uL (1.40-6.50); Neutrophils % (auto) 73.3 %; Platelet Count 272 K/uL (130-400); RDW Coefficient of Variation 12.5 % (11.5-14.5); RDW Standard Deviation 44.6 fL (36.4-46.3); Red Blood Count 4.08 M/uL (4.70-6.10); White Blood Count 9.44 K/ul (4.8-10.8)
[2023-06-11 06:27] LABS: Albumin Globulin Ratio 1.4 (0.9-2); Albumin Level 3.5 gm/dl (3.4-5.0); BUN Creatinine Ratio 10.3 (10-20); Bilirubin,Total 0.5 mg/dl (0.2-1.0); Calcium 8.9 mg/dl (8.6-10.3); Creatinine Clr Calc Pharmacy 82.5 ml/min; Est GFR (African American) 77.1 ml/min; Est GFR (Non-African American) 66.5 ml/min; Globulin 2.5 gm/dl (2.5-4.0); Potassium 4.2 mmol/L (3.5-5.1)
--- NOTE | 2023-06-11 09:35 | Surgery Progress Note ---
Date of Service June 11, 2023 Assessment & Plan (1) Elevated lactic acid level: Plan: resolved with IV fluid hydration (2) Leukocytosis: Plan: resolved (3) Nausea & vomiting: Plan: resolved (4) Abdominal pain, RUQ: Plan: resolved Plan 47 year-old male with nausea, vomiting, diarrhea, and abdominal pain, Leukocytosis of 22,00 and elevated lactic acid at [address] scan abd/pelvis and Ultrasound showing gallstones with no evidence of cholecystitis. similar presentation mid april with elevation in leukocytosis and lactic acid but negative imaging. Given persistent gastrointestinal symptoms needs GI evaluation. Could consider HIDA scan with EF as outpatient pending further Gi work-up. No surgical intervention recommended at this time. Recommend low fat diet. Our services signing off, call with questions/concerns. Discussed with Dr. Do who agrees with above. Admission and Anticipated Discharge Date Admission Date: June 09, 2023 Subjective feeling good today no abdominal pain no nausea or vomiting tolerated diet without any pain, nausea, vomiting or bloating Physical Exam Constitutional: WD/WN, vitals as above cooperative and comfortable; no acute distress and not ill appearing Gastrointestinal (Abdomen): Inspection/Auscultation: abdomen normal to inspection; abdomen not distended Percussion/Palpation: abdomen soft; abdomen nontender, no guarding, abdomen not rigid and abdomen not firm Skin: no rashes, warm and dry Psychiatric: A+Ox3, euthymic affect Results & Data Vital Signs (Past 12 Hours) Vital Signs Temp Pulse Pulse Resp BP Pulse Ox O2 Del Method 06/11/23 07:39 36.5 C 64 14 120/72 94 Room Air 06/11/23 07:27 63 06/11/23 03:04 36.6 C 63 20 129/74 95 Room Air 06/11/23 00:09 60 06/10/23 23:47 36.5 C 67 20 127/77 95 Room Air Laboratory Results 06/11/23 06/10/23 Range/Units 05:33 06:34 WBC 9.44 (4.8-10.8) K/ul RBC 4.08 L (4.70-6.10) M/uL Hgb 12.9 L (14.0-18.0) g/dl Hct 39.6 L (42.0-52.0) % MCV 97.1 (80.0-100.0) fL MCH 31.6 (25.0-34.0) pg MCHC 32.6 (32.0-36.0) g/dL RDW Std Deviation 44.6 (36.4-46.3) fL RDW Coeff of Bret 12.5 (11.5-14.5) % Plt Count 272 (130-400) K/uL MPV 9.6 (9.4-12.4) fL Immature Gran % (Auto) 1.3 % Neut % (Auto) 73.3 % Lymph % (Auto) 16.7 % [place] % (Auto) 6.9 % Eos % (Auto) 1.2 % Baso % (Auto) 0.6 % Neut # (Auto) 6.92 H (1.40-6.50) K/uL Lymph # (Auto) 1.58 (1.20-3.40) K/uL [place] # (Auto) 0.65 H (0.11-0.59) K/uL Eos # (Auto) 0.11 (0.00-0.50) K/uL Baso # (Auto) 0.06 (0.00-0.20) K/uL Immature Gran # (Auto) 0.12 (0.01-0.20) K/uL Sodium 138 (136-145) mmol/L Potassium 4.2 (3.5-5.1) mmol/L Chloride 107 (98-107) mmol/L Carbon Dioxide 28 (21-32) mmol/L Anion Gap 3 (3-11) BUN 13 (6-23) mg/dl Creatinine 1.26 (0.6-1.4) mg/dl Est Cr Clr Drug Dosing 82.5 ml/min Est GFR ( Amer) 77.1 ml/min Est GFR (Non-Af Amer) 66.5 ml/min BUN/Creatinine Ratio 10.3 (10-20) Glucose 87 (70-99(Fasting)) mg/dl Calcium 8.9 (8.6-10.3) mg/dl Total Bilirubin 0.5 (0.2-1.0) mg/dl AST 20 (13-39) U/L ALT 32 (7-52) U/L Alkaline Phosphatase 37 (34-104) U/L Total Protein 6.0 (6.0-8.3) gm/dl Albumin 3.5 (3.4-5.0) gm/dl Globulin 2.5 (2.5-4.0) gm/dl Albumin/Globulin Ratio 1.4 (0.9-2) Lipase 27 (11-82) U/L
--- NOTE | 2023-06-11 12:44 | Discharge Summary ---
Date of Service June 11, 2023 Admission HPI Per Admitting Provider Mazin Ramirez is a pleasant 47-year-old male presenting with acute onset of nausea, vomiting and diarrhea. Patient with history of MS with chronic left- sided deficit, wheelchair-bound, seizure disorder, CKD and prior DVT on Eliquis anticoagulation. He reports over the last couple of days he has felt generally weak with waves of nausea, poor appetite and decreased oral intake. Today around 1500 he developed severe nausea with multiple episodes of nonbloody/nonbilious emesis. Patient reports at least 15 episodes of vomiting. He also had several episodes of nonbloody diarrhea as well as diffuse abdominal pain. His nausea has persisted throughout the day. Has not been able to eat much. Possibly with fevers some cold sweats. Denies cough, shortness of breath, chest pain, palpitations. Denies rash or urinary complaints Denies right upper quadrant pain or postprandial symptoms. Patient recently restarted his home gabapentin. Also recently diagnosed with a UTI and just completed his antibiotics In the ER patient is afebrile, hemodynamically stable, ongoing nausea and abdominal pain ER course: Normal saline x 2 L Zofran 4 mg IV Extra 50 mcg IV Zosyn 4.5 g IV Morphine 4 mg IV Principal Diagnosis intractable nausea, vomiting Discharge Exam head atraumatic neck supple chest CTA heart S1S2 regular abdomen soft, nt, nd, BS present extremities lower weakness Discharge Data Allergies Allergy/AdvReac Type Severity Reaction Status Date / Time aspirin Allergy Severe airway Verified 03/04/23 19:11 edema; hives Consultations 06/09/23 23:12 Consult General Surgery Stat 06/09/23 23:19 ED Decision to Admit Stat 06/10/23 10:56 Consult Gastroenterology Routine Ordered Studies 06/09/23 19:56 CT Abd and Pelvis [CT abd pelvis IV con only] Stat 06/09/23 23:12 US gallbladder Stat Hospital Course (1) Nausea & vomitin-year-old male presenting with nausea, vomiting, diarrhea. Ongoing symptoms for the last several days with acute worsening today around 1500. Patient afebrile with stable. Nontoxic in appearance. He does have significant leukocytosis with WBC = 21.25. Lactate initially elevated at 4 which improved to 2.3 after IV fluid resuscitation. CT of the abdomen pelvis as above notes presence of gallstones with no CT evidence of acute cholecystitis or choledocholithiasis. Gallbladder ultrasound confirms the same. No evidence of acute cholecystitis. Possible gastroenteritis, possible abdominal complaints from hypercalcemia? Admit to medical telemetry check stool PCR -Follow cultures sent from the ER Continue IV fluids with normal saline at 125 mL/h x 2 L -Continue empiric Zosyn for now General surgery has been consulted from the ER -appreciate assistance, no signs of acute cholecystitis diet as tolerated GI input appreciated, PPI outpatient follow up Tylenol and morphine as needed for pain Zofran as needed for nausea 06/10 nausea, vomiting resolved, tolerating diet all tests are negative advance diet as tolerated, stable for discharge (2) Primary hyperparathyroidism: Patient with primary hyperparathyroidism. Has had hypercalcemia in the past. He is on Cinacalcet 30 mg p.o. twice daily. Mild hypercalcemia today with calcium = 11.9 -Continue IV fluids, normal saline at 125 mL/h x 2 L Continue Cinacalcet Repeat chemistry in the morning. 06/10 blood work normalized, tolerating diet, stable for discharge (3) CKD (chronic kidney disease): BUN/creatinine near baseline Avoid nephrotoxic agents Repeat chemistry in the morning (4) DVT (deep venous thrombosis): Patient is on anticoagulation with Eliquis for DVT Continue home Eliquis (5) Multiple sclerosis: Patient with MS. Chronic left-sided weakness, wheelchair-bound Turning position as needed Continue tizanidine Total Time Total Time Spent Total Time Spent (In Minutes): 40 minutes Discharge Plan Discharge Items Patient Disposition: Home - Self-Care Reason For Visit: ABDOMINAL PAIN, NAUSEA / VOMITING / DIARRHEA Discharge Diagnosis: viral gastroeneteritis Activity: Resume your previous activity Non-emergency contact: Primary Care Provider Call non-emergency contact if: your symptoms worsen Follow-up/Referrals: Louis Hale [Primary Care Provider] - 06/23/23 3:25 pm (WITH DR LEE) Diet: Regular Addtl Attending Provider Instructions: follow up with PCP in 7 days Pending Studies at Discharge: No Stand-Alone Forms: [employer] Videos, Smoking Cessation Medications and DC Order Prescriptions: New polyethylene glycol 3350 [Miralax] 17 gram Powder In Packet 17 g PO DAILY PRN (Reason: constipation) Qty: 30 0RF Continued tizanidine 2 mg tablet 2 mg PO DAILY PRN (Reason: Muscle Spasm) cinacalcet 30 mg tablet 30 mg PO BID fluoxetine 20 mg capsule 20 mg PO HS Eliquis 5 mg tablet 5 mg PO BID acetaminophen [Tylenol Extra Strength] 500 mg Tablet 1,000 mg PO Q6H PRN (Reason: PAIN/FEVER) gabapentin 100 mg Capsule 100 mg PO TID Qty: 90 2RF sennosides [Senokot] 8.6 mg Tablet 17.2 mg PO QAM Qty: 30 0RF Rx Instructions: purchase [id number] Changed pantoprazole 40 mg tablet,delayed release (DR/EC) 40 mg PO HS Qty: 30 0RF Discharge Orders: Discharge Order (Routine); Ordered 06/11/23 Ordered By: Arina Demarco Admission Data Admit Date/Time: 06/09/23 23:59 Attending Provider: Arina Demarco Admit Provider: Loulou Arzola Primary Care Provider: Louis Hale Other Providers: Yasemin Carreon; Loulou Arzola; Tez Delong; James Gamez; Violetta Mills; Patricia Montalvo; Viki Krueger; Zaina Montero; Estela Clark; Kevin Nowak; Jabari Moe; Nanda Carreon; Steve Portillo; Puneet Griffith; Layla Schaeffer; Gretchen Rodríguez; Linda Frederick; Molly Tomlinson; Yessica Andrew; Ramesh Charles; Shorty Saravia; Kandi Hillman; Karen Dominique Jr Other Interventions: Discharge Summary Assessment (RN) Last Done: 06/11/23 12:37 Coding Level of Care Code 96037 INP/OBS DISCH >30 MIN Diagnoses Nausea & vomiting R11.2 Primary hyperparathyroidism E21.0 CKD (chronic kidney disease) N18.9 DVT (deep venous thrombosis) I82.502 Affected thrombotic vein of extremity: unspecified vein of extremity Chronicity: chronic DVT location: lower extremity Laterality: left Multiple sclerosis G35
== END 2023-06-11 13:24 | disposition home or self-care (01) | DRG 392 ==
LOC: ED 18:57 → EDINP 23:59 → SUATTDRO 23:59 → EDINP 06-10 00:50 → 2N 06-10 06:22

== ENCOUNTER 2023-06-13 15:00 | Inpatient (IN) ==
[2023-06-13] MEDS: PROMETHAZINE 6.25 MG/50.25 ML BAG IV STA (15:47)
[2023-06-13] MEDS: ONDANSETRON INJ 2 MG/ML 2 ML VIAL IV STA (15:47)
[2023-06-13] MEDS: MoRPHine SULFATE 4 MG/ML 1 ML CARP\\VIAL IV STA (15:47)
[2023-06-13] MEDS: SODIUM CHLORIDE 0.9% 1,000 ML IV SCH (15:47)
--- NOTE | 2023-06-13 15:55 | Emergency Department Note ---
Impression & Plan Acute dehydration, Leukocytosis, Elevated lactic acid level, Vomiting and diarrhea, Diffuse abdominal pain ED Provider Note NAME: JAD DICKINSON AGE: 47 SEX: M : 1975 ARRIVES VIA: Ambulance INFORMANT: [Patient] ED PROVIDER(S): [Eris Godoy MD] CHIEF COMPLAINT: Vomiting HISTORY OF PRESENT ILLNESS: The patient is a 47-year-old male with MS who left our hospital 2 days ago for vomiting, diarrhea and abdominal pain. The patient states that he had about 24 hours of no symptoms upon discharge and now is again vomiting with diarrhea and has diffuse abdominal pain. There has been no fever, no blood in the vomit or diarrhea. He has not had any sick contacts. He is not sure why this restarted. He presents for evaluation, he is concerned for dehydration. PMHx/PSHx/Social Hx: See Below PHYSICAL EXAM: GENERAL: Patient is in no acute distress. HEENT: No acute trauma, normocephalic atraumatic, mucous membranes moist, no nasal congestion. NECK: No stridor, no adenopathy, no meningismus, trachea is midline. LUNGS: Clear to auscultation bilaterally, no wheeze, no rhonchi, breath sounds equal. HEART: Mildly tachycardic, regular rhythm, no murmurs. ABDOMEN: Soft, mildly diffusely tender, no significant distention. No peritonitis. EXTREMITIES: No cyanosis, full range of motion of all the joints without pain or difficulty. NEUROLOGIC: Oriented x 3, his left arm and leg are both weak consistent with his past history. SKIN: No jaundice, no diaphoresis. DIFFERENTIAL DIAGNOSIS: Dehydration, viral illness, foodborne illness, electrolyte imbalance, among others. EMERGENCY DEPARTMENT PROCEDURES: MEDICAL DECISION MAKING: There is a moderate leukocytosis, this could be consistent with infection or potentially just his vomiting. There was a normal hemoglobin and platelet count. No renal failure. Initial lactic acid level was somewhat elevated, consistent with infection or just dehydration. No concerning liver enzyme elevation. The patient appeared to be in a euthyroid state. ECG shows a sinus rhythm, no obvious acute ischemia. Cardiac enzyme testing x 1 is not consistent with acute cardiac injury. On exam, patient was not toxic, he was not febrile. The patient was given IV saline 1 L. He was given IV lactated Ringer's 1 L. He received IV Zofran and IV Phenergan. He was given IV morphine. I do think the patient requires hospitalization. He is vomiting with diarrhea, he is dehydrated. He has a leukocytosis and elevated lactic acid level, he just left our hospital with similar symptoms. I did speak with case management, the on-call hospitalist was consulted. Of note, the patient had a prolonged pause on his cardiac monitoring. Nursing staff went into his room and he awoke easily, this monitoring issue was passed onto the admitting hospitalist. Prior/Outside records/notes reviewed: Discharge summary note from 06/11/2023 discussing his presentation, care and eventual discharge. ECG per my interpretation: Indication was vomiting. The ECG shows a normal sinus rhythm with a rate of 86. There is poor R wave progression and a potential old anterior infarct noted. There is no ST elevation, no PVCs. The QTc is 428. Continuous Cardiac Monitoring per my interpretation: An order was placed for continuous cardiac monitoring. The monitor shows a rate of 92 with normal sinus rhythm. Imaging/x-ray results per my interpretation: Chronic Medical/Social conditions affecting care: MS, wheelchair-bound. Care/Management discussed with: Case management, the on-call hospitalist Level of care consideration(s): After review of the information above and other included data: --I believe the patient requires escalation of care to admission DISPOSITION: Admission Past Med/Surg History Medical History Onychomycosis Osteoporosis CKD (chronic kidney disease) H/O poor personal hygiene Primary hyperparathyroidism Left leg pain Weakness Multiple sclerosis exacerbation Obstructive uropathy 2/2 renal stone, caused RUBI, pt admitted for this and hypercalcemia 05/2018 Hyperparathyroidism Hypercalcemia Chronic pain syndrome Seizure disorder Many years ago may have had single episode, pt was never treated for this, no reoccurrence. Depression Multiple sclerosis Surgical History History of cystoscopy WITH STENT PLACEMENT 06/14/18 [facility] Family History Father Stroke Thyroid disorder Other Hypertension Kidney stones Social History Smoking Status: Never smoker Tobacco Type: Smokeless Tobacco (Dip or Chew) Cigarettes Per Day: 0; Second Hand Exposure: No; Do You Dip or Chew Tobacco: Yes; Hx Alcohol Use: Yes Alcohol type: beer Hx Substance Use: No Preferred Language: Senegalese Communication Ability: Effective Bilingual Executive Assistant Required: No Beliefs That Will Affect Care: None marital status: Current Living Situation: Family Current Living Situation Comment: Father and Uncle current occupational status: disabled How many Children do You have: 2 Feels Safe at Home: Yes Assistive Devices: Wheelchair Allergies Allergies Allergy/AdvReac Type Severity Reaction Status Date / Time aspirin Allergy Severe airway Verified 06/13/23 15:44 edema; hives Home Meds Home Medications Medication Instructions Recorded Confirmed tizanidine 2 mg tablet 2 mg PO DAILY PRN Muscle Spasm 02/13/23 06/13/23 apixaban 5 mg tablet (Eliquis) 5 mg PO BID 03/04/23 06/13/23 cinacalcet 30 mg tablet 30 mg PO BID 03/04/23 06/13/23 fluoxetine 20 mg capsule 20 mg PO HS 03/04/23 06/13/23 acetaminophen 500 mg tablet 1,000 mg PO Q6H PRN PAIN/FEVER 05/26/23 06/13/23 (Tylenol Extra Strength) Previous Rx's Medication Instructions Recorded gabapentin 100 mg capsule 100 mg PO TID #90 caps 05/31/23 sennosides 8.6 mg tablet (Senokot) 17.2 mg (2 x 8.6 mg) PO QAM #30 05/31/23 tabs pantoprazole 40 mg tablet,delayed 40 mg PO HS #30 tabs 06/11/23 release polyethylene glycol 3350 17 gram 17 g PO DAILY PRN constipation #30 06/11/23 oral powder packet (Miralax) ea Results & Data (ED) Vital Signs Vital Signs - 24 hr 06/13/23 15:08 06/13/23 16:32 06/13/23 16:55 Temperature 36.7 C Temperature Source Oral Pulse Rate 92 H 73 Pulse Rate [Apical] 75 Respiratory Rate 16 18 Respiratory Effort / Characteristics Non-Labored Spontaneous Respiratory Depth Normal Normal Respiratory Pattern Regular Blood Pressure 151/99 H Blood Pressure [Right Arm] 133/78 Blood Pressure Mean 116 Blood Pressure Mean [Right Arm] 96 Blood Pressure Position [Right Arm] Lying Pulse Oximetry 96 95 Oxygen Delivery Method Room Air Room Air Sepsis Recent Fever Within 48 Hours No Sepsis New/Unexplained Change in Mental Status N/A Sepsis Action Taken by Nursing No Action Required 06/13/23 17:01 06/13/23 18:00 06/13/23 18:30 Temperature Temperature Source Pulse Rate 74 Pulse Rate [Apical] 75 80 Respiratory Rate 18 Respiratory Effort / Characteristics Non-Labored Spontaneous Respiratory Depth Normal Respiratory Pattern Regular Blood Pressure Blood Pressure [Right Arm] 126/81 123/83 Blood Pressure Mean Blood Pressure Mean [Right Arm] 96 96 Blood Pressure Position [Right Arm] Lying Lying Pulse Oximetry 95 97 96 Oxygen Delivery Method Room Air Room Air Room Air Sepsis Recent Fever Within 48 Hours Sepsis New/Unexplained Change in Mental Status Sepsis Action Taken by Snf Medications Current Medication List: was personally reviewed by me Laboratory Data Attestation: I reviewed the patient's lab results. 06/13/23 15:43 06/13/23 15:43 Lab Results 06/13/23 06/13/23 06/13/23 Range/Units 15:43 16:25 19:33 WBC 15.75 H (4.8-10.8) K/ul RBC 5.01 (4.70-6.10) M/uL Hgb 16.2 (14.0-18.0) g/dl Hct 46.1 (42.0-52.0) % MCV 92.0 D (80.0-100.0) fL MCH 32.3 (25.0-34.0) pg MCHC 35.1 (32.0-36.0) g/dL RDW Std Deviation 41.9 (36.4-46.3) fL RDW Coeff of Bret 12.4 (11.5-14.5) % Plt Count 355 (130-400) K/uL MPV 9.9 (9.4-12.4) fL Immature Gran % (Auto) 1.1 % Neut % (Auto) 90.8 % Lymph % (Auto) 3.7 % [place] % (Auto) 4.1 % Eos % (Auto) 0.0 % Baso % (Auto) 0.3 % Neut # (Auto) 14.31 H (1.40-6.50) K/uL Lymph # (Auto) 0.58 L (1.20-3.40) K/uL [place] # (Auto) 0.65 H (0.11-0.59) K/uL Eos # (Auto) 0.00 (0.00-0.50) K/uL Baso # (Auto) 0.04 (0.00-0.20) K/uL Immature Gran # (Auto) 0.17 (0.01-0.20) K/uL Sodium 138 (136-145) mmol/L Potassium 4.1 (3.5-5.1) mmol/L Chloride 105 (98-107) mmol/L Carbon Dioxide 23 (21-32) mmol/L Anion Gap 10 (3-11) BUN 16 (6-23) mg/dl Creatinine 1.12 (0.6-1.4) mg/dl Est Cr Clr Drug Dosing 92.8 ml/min Est GFR ( Amer) 88.9 ml/min Est GFR (Non-Af Amer) 76.7 ml/min BUN/Creatinine Ratio 14.3 (10-20) Glucose 144 H (70-99(Fasting)) mg/dl Lactate 2.1 H* 2.0 (0.4-2.0) mmol/L Calcium 11.1 H (8.6-10.3) mg/dl Magnesium 2.3 (1.7-2.4) mg/dl Total Bilirubin 0.6 (0.2-1.0) mg/dl AST 18 (13-39) U/L ALT 35 (7-52) U/L Alkaline Phosphatase 61 (34-104) U/L Troponin I High Sens 3.8 (0-20) pg/ml Total Protein 7.8 (6.0-8.3) gm/dl Albumin 4.5 (3.4-5.0) gm/dl Globulin 3.3 (2.5-4.0) gm/dl Albumin/Globulin Ratio 1.4 (0.9-2) TSH 2.881 (0.300-4.500) uIu/ml Administered Medications Discontinued Medications Sodium Chloride (Nss) 1,000 mls @ 999 mls/hr IV .Q1H1M MANJINDER Stop: 06/13/23 16:45 Last Infusion: 06/13/23 17:04 Dose: Infused Documented By: Admin: 06/13/23 15:47 Dose: 999 mls/hr Documented By: ACC Promethazine HCl (Phenergan) 6.25 mg in 50.25 mls @ 201 mls/hr IV NOW STA Stop: 06/13/23 15:51 Last Infusion: 06/13/23 17:04 Dose: Infused Documented By: Admin: 06/13/23 15:47 Dose: 201 mls/hr Documented By: ACC Lactated Ringer's (Lr) 1,000 mls @ 999 mls/hr IV .Q1H1M ONE Stop: 06/13/23 18:03 Last Infusion: 06/13/23 20:25 Dose: Infused Documented By: Admin: 06/13/23 17:08 Dose: 999 mls/hr Documented By: TNK Acetaminophen (Ofirmev) 1,000 mg in 100 mls @ 400 mls/hr IV NOW STA Stop: 06/13/23 18:59 Last Infusion: 06/13/23 20:25 Dose: Infused Documented By: Admin: 06/13/23 19:57 Dose: 400 mls/hr Documented By: ACC Morphine Sulfate (Morphine Sulfate 4 Mg/Ml 1 Ml Carp\Vial) 4 mg IV NOW STA Stop: 06/13/23 15:38 Last Admin: 06/13/23 15:47 Dose: 4 mg Documented By: ACC Ondansetron HCl (Ondansetron Inj 2 Mg/Ml 2 Ml Vial) 4 mg IV NOW STA Stop: 06/13/23 15:38 Last Admin: 06/13/23 15:47 Dose: 4 mg Documented By: ACC Discharge Plan Visit Data Chief Complaint: Vomiting Stated Complaint: NAUSEA, VOMITING, DIARRHEA ED Provider: Eris Godoy Discharge Problem: Acute dehydration, Leukocytosis, Elevated lactic acid level, Vomiting and diarrhea, Diffuse abdominal pain Patient Disposition: Admitted As Inpatient Condition: Fair Discharge Instructions Interventions: ED Discharge Assessment Last Done: 06/13/23 20:27 Forms Stand Alone Forms: [employer] Prescriptions Prescriptions: No Action tizanidine 2 mg tablet 2 mg PO DAILY PRN (Reason: Muscle Spasm) cinacalcet 30 mg tablet 30 mg PO BID fluoxetine 20 mg capsule 20 mg PO HS Eliquis 5 mg tablet 5 mg PO BID acetaminophen [Tylenol Extra Strength] 500 mg Tablet 1,000 mg PO Q6H PRN (Reason: PAIN/FEVER) gabapentin 100 mg Capsule 100 mg PO TID Qty: 90 2RF sennosides [Senokot] 8.6 mg Tablet 17.2 mg PO QAM Qty: 30 0RF Rx Instructions: purchase [id number] polyethylene glycol 3350 [Miralax] 17 gram Powder In Packet 17 g PO DAILY PRN (Reason: constipation) Qty: 30 0RF pantoprazole 40 mg tablet,delayed release (DR/EC) 40 mg PO HS Qty: 30 0RF Referrals Referrals: Louis Hale [Primary Care Provider] - Discharge Problem: Leukocytosis Qualifiers: Leukocytosis type: unspecified Qualified Code(s): D72.829 - Elevated white blood cell count, unspecified
[2023-06-13 16:29] LABS: Hematocrit (blood only) 46.1 % (42.0-52.0); Hemoglobin 16.2 g/dl (14.0-18.0); Mean Corpuscular Hemoglobin 32.3 pg (25.0-34.0); Mean Corpuscular Hgb Conc 35.1 g/dL (32.0-36.0); Mean Platelet Volume 9.9 fL (9.4-12.4); Platelet Count 355 K/uL (130-400); RDW Coefficient of Variation 12.4 % (11.5-14.5); RDW Standard Deviation 41.9 fL (36.4-46.3); Red Blood Count 5.01 M/uL (4.70-6.10); White Blood Count 15.75 K/ul (4.8-10.8)
[2023-06-13 16:43] LABS: Basophils # (auto) 0.04 K/uL (0.00-0.20); Basophils % (auto) 0.3 %; Immature Granulocytes # (auto) 0.17 K/uL (0.01-0.20); Immature Granulocytes % (auto) 1.1 %; Lymphocytes # (auto) 0.58 K/uL (1.20-3.40); Lymphocytes % (auto) 3.7 %; Monocytes # (auto) 0.65 K/uL (0.11-0.59); Monocytes % (auto) 4.1 %; Neutrophils # (auto) 14.31 K/uL (1.40-6.50); Neutrophils % (auto) 90.8 %
[2023-06-13 16:52] LABS: Albumin Globulin Ratio 1.4 (0.9-2); Albumin Level 4.5 gm/dl (3.4-5.0); BUN Creatinine Ratio 14.3 (10-20); Bilirubin,Total 0.6 mg/dl (0.2-1.0); Calcium 11.1 mg/dl (8.6-10.3); Creatinine Clr Calc Pharmacy 92.8 ml/min; Est GFR (African American) 88.9 ml/min; Est GFR (Non-African American) 76.7 ml/min; Globulin 3.3 gm/dl (2.5-4.0); Magnesium 2.3 mg/dl (1.7-2.4); Potassium 4.1 mmol/L (3.5-5.1); Total Protein 7.8 gm/dl (6.0-8.3)
[2023-06-13 17:03] LABS: Thyroid Stimulating Hormone 2.881 uIu/ml (0.300-4.500); Troponin I High Sensitivity 3.8 pg/ml (0-20)
[2023-06-13] MEDS: LACTATED RINGER'S 1,000 ML IV ONE (17:08)
--- NOTE | 2023-06-13 18:23 | History & Physical Report ---
Date of Service June 13, 2023 Assessment & Plan (1) Sinus pause: Plan: While in the ED, patient had a 6-second heart pause, then a beat, then another 3-second heart pause while in bed When nursing staff checked on him, he was initially lethargic/unresponsive, but then startled and woke up Unclear etiology; ? electrolyte abnormalities Continuous telemetry monitoring Atropine as needed A.m. CBC, BMP (2) Nausea & vomiting: Plan: N/V and abdominal cramping that began around 0500 on 06/12 Hx of recent [place] admission from 06/08-06/10 for similar Leukocytosis of 15.75 with neutrophil predominance; afebrile On last admission, GI viral etiology suspected CT A/P 06/08 revealed gallstones; no evidence of choledocholithiasis or biliary dilation; low fat diet for now Blood cultures no growth x2 on 06/09 Will defer abx at this time Patient received NS 1000 mL + LR 1000 mL in the ED Continue Plasma-Lyte at 125mL/hr x 2L (Caution LR use in the setting of mild hypercalcemia) Zofran as needed for nausea/vomiting If intractable, consider adding Reglan for gastroparesis (3) Primary hyperparathyroidism: Plan: Mild; hypercalcemia today 11.1 on arrival Given this is mild and lower than on 06/08, unclear if this is contributing to N/V Continue Cinacalcet 30 mg p.o. BID Plasma-Lyte (as above) A.m. chemistries (4) Multiple sclerosis: Plan: Chronic left-sided weakness, wheelchair-bound at baseline Continue tizanidine as needed for muscle spasms (5) Elevated lactic acid level: Plan: Lactate mildly elevated at 2.1-->2.0 on arrival (6) Chronic deep vein thrombosis (DVT) of distal vein of left lower extremity: Plan: Continue Eliquis (7) Paraplegia, unspecified: (8) Hypercalcemia: Plan Disposition: Admit to PCU telemetry Full code Full liquid, low-fat diet; advance diet as tolerated VTE PPx: On Eliquis History of Present Illness Chief Complaint: Intractable nausea/vomiting Primary Care Provider: Louis Geoffrey Retana is a 47-year-old male with PMH of MS, primary hyperparathyroidism, chronic DVT in LLE, and osteoporosis. He presented for N/V/D that began around 0500 on 06/12. Recent [place] hospitalization from 06/08 - 06/10 for similar. He reports that the nausea and vomiting was constant this morning; woke him from sleep. Multiple episodes this morning, but then subsided. He denies hematemesis. He did not take his regular morning medication today; no recent change in medication. Last took Eliquis the evening of 06/11. He has not been tolerating solids or fluids, but has not tried eating since his resolution of na usea/vomiting. He does report that he was drinking beer last night; 3 drinks. He reports he usually averages about a 12 pack/week. No history of seizures or alcohol withdrawal. Patient is wheelchair-bound at baseline. Patient endorses bilateral, throbbing leg pain, which she rates 7/10 at present. This has been an ongoing issue. He denies leg swelling. No radiation above the knee; pain is mainly in the calf/weaver. Vital stable at time of admission. ED course: NSS 1000 mL IV Zofran 4 mg IV Phenergan 6.25 mg IV Morphine sulfate 4 mg IV LR 1000 mL IV ROS: Patient endorses changes in vision (blurry vision), abdominal cramping, N/V, and occassional numbness/tingling/pain in the arms & legs. Patient denies fever, chills, nightsweats, dizziness, lightheadedness, headache, fainting, chest pain, chest palpitations, cough, SOB, hematemesis, change in urinary or bowel habits, burning with urination, or blood in the urine/stool. Note: ED reported that the patient did have a 6-second heart pause, then a beat, then another 3-second heart pause while in bed on telemetry. When nursing staff checked on him, he was initially lethargic/unresponsive, but then startled and woke up. Allergies Allergy/AdvReac Type Severity Reaction Status Date / Time aspirin Allergy Severe airway Verified 06/13/23 15:44 edema; hives Home Medications Medication Instructions Recorded Confirmed Type tizanidine 2 mg tablet 2 mg PO DAILY PRN Muscle Spasm 02/13/23 06/13/23 History apixaban 5 mg tablet (Eliquis) 5 mg PO BID 03/04/23 06/13/23 History cinacalcet 30 mg tablet 30 mg PO BID 03/04/23 06/13/23 History fluoxetine 20 mg capsule 20 mg PO HS 03/04/23 06/13/23 History acetaminophen 500 mg tablet 1,000 mg PO Q6H PRN PAIN/FEVER 05/26/23 06/13/23 History (Tylenol Extra Strength) gabapentin 100 mg capsule 100 mg PO TID #90 caps 05/31/23 06/13/23 Rx sennosides 8.6 mg tablet (Senokot) 17.2 mg (2 x 8.6 mg) PO QAM #30 05/31/23 06/13/23 Rx tabs pantoprazole 40 mg tablet,delayed 40 mg PO HS #30 tabs 06/11/23 06/13/23 Rx release polyethylene glycol 3350 17 gram 17 g PO DAILY PRN constipation #30 06/11/23 06/13/23 Rx oral powder packet (Miralax) ea Past Med/Surg History Medical History Onychomycosis Osteoporosis CKD (chronic kidney disease) H/O poor personal hygiene Primary hyperparathyroidism Left leg pain Weakness Multiple sclerosis exacerbation Obstructive uropathy 2/ renal stone, caused RUBI, pt admitted for this and hypercalcemia 05/2018 Hyperparathyroidism Hypercalcemia Chronic pain syndrome Seizure disorder Many years ago may have had single episode, pt was never treated for this, no reoccurrence. Depression Multiple sclerosis Surgical History History of cystoscopy WITH STENT PLACEMENT 06/14/18 [facility] Family History Father Stroke Thyroid disorder Other Hypertension Kidney stones Social History Smoking Status: Never smoker Tobacco Type: Smokeless Tobacco (Dip or Chew) Cigarettes Per Day: 0; Second Hand Exposure: No; Do You Dip or Chew Tobacco: No; Tobacco Cessation Education Requested by Patient: No Hx Alcohol Use: Yes Alcohol type: beer Hx Substance Use: No Preferred Language: Armenian Communication Ability: Effective Liquid Sugar Fortifier Required: No Beliefs That Will Affect Care: None marital status: Current Living Situation: Family Current Living Situation Comment: father and uncle current occupational status: disabled How many Children do You have: 2 Other Information That Helps Us Care for You: No Feels Safe at Home: Yes Safety Concerns: Feels Safe At This Time Assistive Devices: Wheelchair Review of Systems Review of Systems: See HPI above Physical Exam Physical Exam: General: no acute distress; pleasant affect; non-toxic appearing; well- nourished; cooperative; SpO2 97% on RA HEENT: normocephalic, atraumatic; no scleral icterus; PERRLA w/ EOMs intact; moist mucus membrane; vision and hearing grossly intact Neck: supple; no lymphadenopathy; trachea midline Skin: warm, dry without signs of tenting; no cyanosis; no rashes, bruising, lesions, or erythema noted CV: chest wall NTP; RRR; S1/S2 normal; no murmurs/rubs/gallops; pulses intact and symmetric at radial, DP, and PT Lungs: no acute respiratory distress; symmetrical chest wall expansion; clear breath sounds across all lung gama w/o adventitious sounds; no wheezing ABD: Soft; RUQ and RLQ mildly tender to palpation; BS present; no rebound/guarding; no distention MSK: no tics or fasciculations; no edema noted in the LEs b/l, nonerythematous; lower extremities are nontender to palpation Neuro: A&Ox3; normal mood and affect; fluent speech; no focal deficits; sensation intact in the face/UEs B/L; no sensation in the left lower extremity Results & Data Results & Data Vital Signs (Past 12 Hours) Vital Signs Temp Pulse Pulse Resp BP BP Pulse Ox 06/13/23 18:00 75 18 126/81 97 06/13/23 17:01 74 95 06/13/23 16:55 75 18 133/78 95 06/13/23 16:32 73 06/13/23 15:08 36.7 C 92 H 16 151/99 H 96 O2 Del Method 06/13/23 18:00 Room Air 06/13/23 17:01 Room Air 06/13/23 16:55 Room Air 06/13/23 16:32 06/13/23 15:08 Room Air Laboratory Results Abnormal lab results 06/13/23 06/13/23 Range/Units 15:43 16:25 WBC 15.75 H (4.8-10.8) K/ul Neut # (Auto) 14.31 H (1.40-6.50) K/uL Lymph # (Auto) 0.58 L (1.20-3.40) K/uL Hardy # (Auto) 0.65 H (0.11-0.59) K/uL Glucose 144 H (70-99(Fasting)) mg/dl Lactate 2.1 H* (0.4-2.0) mmol/L Calcium 11.1 H (8.6-10.3) mg/dl ECG Additional Comments: ECG revealed NSR at 86 bpm; QTc 428 Code Status & VTE Plan Code Status Full code VTE Prophylaxis Plan VTE Prophylaxis will be ordered: Yes Supervising Physician Co-Signing Physician Notes Patient seen and examined, chart reviewed, case discussed with Nigel Rodriguez and I agree with the assessment and plan as above except as otherwise noted Labs and images reviewed Mazin is a 47-year-old male with past medical history of chronic DVT, MS, hyperparathyroidism, recurrent nausea/vomiting/diarrhea presents to the ER with recurrent nausea/emesis diarrhea approximately 1 day. Patient was recently seen for similar 06/2023 and discharged on 06/10. Workup at that time did not show any evidence of choledocholithiasis, bacterial infection, or obstruction. Patient was suspected to have viral etiology versus gastroparesis, clinically improved and was discharged after his diet was advanced. He reports at his symptoms did improve after his last discharge however recurred this morning with multiple episodes. He has not taken his daily medications due to nausea. No hematemesis, no melena/hematochezia. No fever, chills, sweats. Suspect that his leukocytosis which is without a left shift is most likely demargination. His abdomen is nontender/nonacute. Does not show any evidence of acute hepatic or renal disease. Lactate initially elevated at 4.0 without abdominal pain, at this normalized following IV fluids. Suspect volume contraction. Follow fever curve overnight. No respiratory symptoms. Patient did have a several second pause while on telemetry without a prior history of heart disease or bradycardia. EKG is normal sinus rhythm without ischemic change. She does drink alcohol regularly but does not generally binge drink and is without cardiomyopathy. No known tick bites; given current leukocytosis Lyme serology has been ordered. Follow fever curve. If abdominal pains developed obtain CT at that time. Patient follow on telemetry due to his pause. Troponin is normal. Echo is pending. Pacer pads at bedside. Optimize electrolytes with goal potassium 4.0 and magnesium 2.0. No repletion indicated at time of admission Does have a history of MS with chronic left-sided weakness. He reports that recently he has had bilateral increased leg weakness, and some bilateral blurry vision although this has not changed since last hospitalization and was also present at his recent MRIs. He reports no change in strength, sens ation, vision and no other neurologic changes since his last MRI/admission. No chest pain/chest pressure and he was unaware that he had a heart pause until he was told. Denies recent chest pain or anginal symptoms leading to admission. Agree with assessment and management above PG Care Time/CCT Total # of Minutes Spent Total Time Spent with Patient: Total time spent is greater than 50% in coordination of care (as documented) at patient's floor/unit and/or counseling patient: Coding [place] [address] INT INP/OBS CARE 3/75MIN Patient Type Established History Comprehensive Exam Comprehensive Medical Decision Making High Complexity Diagnoses Sinus pause I45.5 Nausea & vomiting R11.2 Primary hyperparathyroidism E21.0 Multiple sclerosis G35 Elevated lactic acid level R79.89 Chronic deep vein thrombosis (DVT) of distal vein of left lower extremity I82.5Z2 Paraplegia, unspecified G82.20 Hypercalcemia E83.52
[2023-06-13] MEDS ORDERED: ATROPINE SULFATE 0.1 MG/ML 10ML SYR IV PRN (19:57)
[2023-06-13] MEDS: ACETAMINOPHEN 1,000 MG/100 ML VIAL IV STA (19:57)
[2023-06-13 20:36] LABS: Appearance Urine Clear (Clear); Bacteria Urine Automated None Seen (None Seen); Bilirubin Urine Negative (Negative); Blood Urine 3+ (Negative); Cast Urine Automated 0-2 /lpf (0-2); Color Urine Yellow; Epithelial Cell Urine Auto 0-2 /hpf (0-2); Glucose Urine UA Negative (Negative); Ketones Urine Negative (Negative); Leukocyte Esterase Urine Trace (Negative); Nitrite Urine Negative (Negative); Protein Urine Trace (Negative); RBC Urine Automated >20 /hpf (0-2); Specific Gravity Urine 1.012 (1.000-1.030); Urobilinogen Urine Negative (Negative); pH Urine 8.5 (4.5-7.5)
[2023-06-13 21:04] LABS: Amphetamines+Metham, Urine Neg (Neg); Barbiturates, Urine Neg (Neg); Benzodiazepine, Urine Neg (Neg); Cocaine, Urine Neg (Neg); MDMA (Ecstacy), Urine Neg (Neg); Marijuana, Urine Pos (Neg); Methadone, Urine Neg (Neg); Opiate, Urine Pos (Neg); Phencyclidine, Urine Neg (Neg)
[2023-06-13] MEDS ORDERED: POLYETHYLENE (MIRALAX) 17 GM PACK PO PRN (21:07)
[2023-06-13] MEDS: PLASMA-LYTE A 1,000 ML IV SCH (21:09)
[2023-06-13] MEDS: FLUoxetine HCL 20 MG CAP PO SCH (21:47)
[2023-06-13] MEDS: GABAPENTIN 100 MG CAP PO SCH (21:47)
[2023-06-13] MEDS: APIXABAN 5 MG TABLET PO SCH (21:47)
[2023-06-13] MEDS: PANTOprazole 40 MG TAB PO SCH (21:47)
[2023-06-13] MEDS: CINACALCET HCL 30 MG TAB PO SCH (21:47)
[2023-06-13] MEDS: tiZANidine HCL 4 MG TABLET PO PRN (21:48)
[2023-06-14] MEDS: HYDROmorphone INJ 0.5 MG/0.5 ML SYR IV ONE ×2 (01:33→21:25)
[2023-06-14] MEDS: ACETAMINOPHEN 500 MG TAB PO PRN (05:04)
--- NOTE | 2023-06-14 07:10 | Electrocardiogram Report ---
Test Reason : Blood Pressure : / mmHG Vent. Rate : 086 BPM Atrial Rate : 086 BPM P-R Int : 162 ms QRS Dur : 090 ms QT Int : 358 ms P-R-T Axes : 041 027 011 degrees QTc Int : 428 ms Normal sinus rhythm Poor R wave progression, consider anterior UT vs. lead placement vs. LVH Abnormal ECG When compared with ECG of 26-MAY-2023 16:39, No significant change was found Confirmed by Law Recinos ([id number]) on 06/14/2023 7:09:48 AM Referred By: Confirmed By:Camilo Recinos
--- NOTE | 2023-06-14 07:13 | Electrocardiogram Report ---
Test Reason : Blood Pressure : / mmHG Vent. Rate : 071 BPM Atrial Rate : 071 BPM P-R Int : 166 ms QRS Dur : 088 ms QT Int : 380 ms P-R-T Axes : 044 028 032 degrees QTc Int : 412 ms Normal sinus rhythm Incomplete right bundle branch block Abnormal ECG Confirmed by Law Recinos ([id number]) on 06/14/2023 7:13:13 AM Referred By: REFERRED SELF Confirmed By:Camilo Recinos
[2023-06-14 07:27] LABS: Basophils # (auto) 0.03 K/uL (0.00-0.20); Basophils % (auto) 0.3 %; Eosinophils # (auto) 0.08 K/uL (0.00-0.50); Eosinophils % (auto) 0.7 %; Hemoglobin 13.4 g/dl (14.0-18.0); Immature Granulocytes # (auto) 0.12 K/uL (0.01-0.20); Immature Granulocytes % (auto) 1.1 %; Lymphocytes # (auto) 1.41 K/uL (1.20-3.40); Lymphocytes % (auto) 12.3 %; Mean Corpuscular Hemoglobin 31.4 pg (25.0-34.0); Mean Corpuscular Hgb Conc 32.7 g/dL (32.0-36.0); Mean Platelet Volume 9.7 fL (9.4-12.4); Monocytes # (auto) 0.92 K/uL (0.11-0.59); Monocytes % (auto) 8.1 %; Neutrophils # (auto) 8.86 K/uL (1.40-6.50); Neutrophils % (auto) 77.5 %; Platelet Count 249 K/uL (130-400); RDW Coefficient of Variation 12.6 % (11.5-14.5); RDW Standard Deviation 44.2 fL (36.4-46.3); Red Blood Count 4.27 M/uL (4.70-6.10); White Blood Count 11.42 K/ul (4.8-10.8)
[2023-06-14 07:42] LABS: BUN Creatinine Ratio 11.7 (10-20); Calcium 9.4 mg/dl (8.6-10.3); Creatinine Clr Calc Pharmacy 93.6 ml/min; Est GFR (African American) 89.9 ml/min; Est GFR (Non-African American) 77.6 ml/min
--- NOTE | 2023-06-14 08:01 | XRay Report ---
XR chest 1V portable HISTORY: 47 years-old Male Leukocytosis COMPARISON: 05/26/2023 TECHNIQUE: AP view of the chest FINDINGS: Cardiac silhouette is normal. Linear bibasilar opacities. No pneumothorax, pleural effusion or pulmon nica edema. Bones of the chest appear grossly intact. IMPRESSION: Linear bibasilar opacities favor atelectasis. Pneumonia considered less likely. ACT 112: Negative or not required by law. The above report was generated using voice recognition software. It may contain grammatical, syntax o r spelling errors. Electronically signed by: Dc Costello M.D. 06/14/2023 8:00 AM
[2023-06-14] MEDS: ONDANSETRON INJ 2 MG/ML 2 ML VIAL IV PRN (08:27)
[2023-06-14] MEDS: SENNA 8.6 MG TAB PO SCH (08:29)
[2023-06-14] MEDS: LORazepam 1 MG TAB PO STA (09:05)
[2023-06-14] MEDS: PANTOprazole 40 MG in SYRINGE 0 ML IV SCH (10:48)
--- NOTE | 2023-06-14 14:51 | Hospitalist Progress Note ---
Date of Service June 14, 2023 Assessment & Plan (1) Sinus pause: Plan: While in the ED, patient had a 6-second heart pause, then a beat, then another 3-second heart pause while in bed When nursing staff checked on him, he was initially lethargic/unresponsive, but then startled and woke up Unclear etiology; ? electrolyte abnormalities Continuous telemetry monitoring Atropine as needed A.m. CBC, BMP (2) Nausea & vomiting: Plan: N/V and abdominal cramping that began around 0500 on 06/12 Hx of recent [place]08-[place]/10 for similar Leukocytosis of 15.75 with neutrophil predominance; afebrile On last admission, GI viral etiology suspected CT A/P 06/08 revealed gallstones; no evidence of choledocholithiasis or biliary dilation; low fat diet for now Blood cultures no growth x2 on 06/09 Will defer abx at this time Patient received NS 1000 mL + LR 1000 mL in the ED Continue Plasma-Lyte at 125mL/hr x 2L (Caution LR use in the setting of mild hypercalcemia) Zofran as needed for nausea/vomiting If intractable, consider adding Reglan for gastroparesis 06/13 urine drug screen is positive for THS, opiates, suspect cyclical vomiting syndrome due to THC use , discussed with patient , avoid narcotics use , diet as tolerated (3) Primary hyperparathyroidism: Plan: Mild; hypercalcemia today 11.1 on arrival Given this is mild and lower than on 06/08, unclear if this is contributing to N/V Continue Cinacalcet 30 mg p.o. BID Plasma-Lyte (as above) A.m. chemistries (4) Multiple sclerosis: Plan: Chronic left-sided weakness, wheelchair-bound at baseline Continue tizanidine as needed for muscle spasms (5) Elevated lactic acid level: Plan: Lactate mildly elevated at 2.1-->2.0 on arrival (6) Chronic deep vein thrombosis (DVT) of distal vein of left lower extremity: Plan: Continue Eliquis (7) Paraplegia, unspecified: (8) Hypercalcemia: Plan Disposition: Admit to PCU telemetry Full code Full liquid, low-fat diet; advance diet as tolerated VTE PPx: On Eliquis Admission and Anticipated Discharge Date Admission Date: June 13, 2023 Subjective reports abdominal pain, nausea, does not want to eat , reports legs legs pain, chronic Review of Systems Review of Systems: head atraumatic neck supple chest CTA b/l heart S2S2 regular abdomen tender, soft, nondistended extremities no edema, atrophic muscles neuro alert, awake, oriented times 3, lower extremities paralysis Results & Data Results & Data Vital Signs (Past 12 Hours) Vital Signs Temp Pulse Pulse Resp BP Pulse Ox O2 Del Method 06/14/23 10:56 36.4 C L 67 18 150/68 H 96 Room Air 06/14/23 07:58 69 06/14/23 07:20 36.5 C 77 18 132/78 94 Room Air 06/14/23 03:00 36.7 C 70 18 132/76 98 Room Air PG Care Time/CCT Total # of Minutes Spent Total Time Spent with Patient: Total time spent is greater than 50% in coordination of care (as documented) at patient's floor/unit and/or counseling patient: Coding Level of Care Code 88030 SUB INP/OBS CARE 2/35MIN Diagnoses Sinus pause I45.5 Nausea & vomiting R11.2 Primary hyperparathyroidism E21.0 Multiple sclerosis G35 Elevated lactic acid level R79.89 Chronic deep vein thrombosis (DVT) of distal vein of left lower extremity I82.5Z2 Paraplegia, unspecified G82.20 Hypercalcemia E83.52
[2023-06-15 06:16] LABS: Basophils # (auto) 0.05 K/uL (0.00-0.20); Basophils % (auto) 0.6 %; Eosinophils % (auto) 1.2 %; Hematocrit (blood only) 39.4 % (42.0-52.0); Hemoglobin 12.9 g/dl (14.0-18.0); Immature Granulocytes # (auto) 0.09 K/uL (0.01-0.20); Immature Granulocytes % (auto) 1.1 %; Lymphocytes # (auto) 1.35 K/uL (1.20-3.40); Mean Corpuscular Hemoglobin 31.5 pg (25.0-34.0); Mean Corpuscular Hgb Conc 32.7 g/dL (32.0-36.0); Mean Corpuscular Volume 96.1 fL (80.0-100.0); Monocytes # (auto) 0.87 K/uL (0.11-0.59); Monocytes % (auto) 10.3 %; Neutrophils # (auto) 5.98 K/uL (1.40-6.50); Neutrophils % (auto) 70.8 %; Platelet Count 216 K/uL (130-400); RDW Coefficient of Variation 12.2 % (11.5-14.5); RDW Standard Deviation 43.4 fL (36.4-46.3); White Blood Count 8.44 K/ul (4.8-10.8)
[2023-06-15 06:22] LABS: BUN Creatinine Ratio 7.9 (10-20); Calcium 8.6 mg/dl (8.6-10.3); Creatinine Clr Calc Pharmacy 82.5 ml/min; Est GFR (African American) 77.1 ml/min; Est GFR (Non-African American) 66.5 ml/min; Potassium 3.7 mmol/L (3.5-5.1)
--- NOTE | 2023-06-15 13:19 | XCELERA ---
[id number]
[2023-06-15] MEDS: HYDROmorphone INJ 0.5 MG/0.5 ML SYR IV STA (13:39)
--- NOTE | 2023-06-15 14:16 | XRay Report ---
KUB CLINICAL HISTORY: Abdominal pain. COMPARISON STUDY: CT of the abdomen and pelvis June 09, 2023. FINDINGS: Moderate small bowel dilatation has developed since CT of June 09, 2023. Multiple left rashaad l calculi measure up to 3.2 cm. These are similar to prior CT. There is no evidence for free air on s upine exam. IMPRESSION: 1. Interval development of small bowel dilatation suggestive of a small bowel obstruction. This findi ng will be called/faxed to the ordering provider at time of dictation . 2. Left-sided nephrolithiasis. ACT 112: Negative or not required by law. Electronically signed by: Vinh Varela M.D. 06/15/2023 2:15 PM
[2023-06-15] MEDS: POLYETHYLENE (MIRALAX) 17 GM PACK PO ONE (15:04)
--- NOTE | 2023-06-15 15:45 | Hospitalist Progress Note ---
Date of Service June 15, 2023 Assessment & Plan (1) Nausea & vomiting: Plan: Recent onset, but now several admissions surrounding intractable nausea and vomiting. Initially suspected to be viral. Given the ongoing recurrenceobviously this is now far less likely to be the case. Symptoms have currently improved. His gaseous distention on x-ray (consistent with small bowel obstruction, but his symptoms are not exactly consistent with such) and stool on prior CT, combined with constipation history suggests constipation/a degree of ileus type physiology would be most likely; less likely could be MS related motility issues (which appear to be rare, but his MS does appear to be fairly severe), versus less likely atypical presentation of common illnesses (this does not fit with PUD or biliary dysfunction, but certainly should remain on the differential simply because these are common processes at play, and could be showing up with atypical manifestations because of his MS) - doubt cannabis hyperemesis given the infrequent nature of this until recently, given the lack of any history consistent with hot showers/hot water/etc., and what sounds to be fairly intermittent rather than constant use of cannabis ---> discussed differential and stepwise approach with patienthe expresses appreciation and understandingwill start with bowel regimen gently and advance dietMiraLAX 17 g 3 times daily, goal of regular bowel movements. If this does not improve his symptoms, or is impossible to achieve, then would move to a motility workup (such as gastric emptying study and small bowel follow-through), and if these are all of no yield, then would pursue "atypical presentation of common pathology" (such as with a HIDA scan or an EGD) before moving to a more purely functional pathology such as functional dyspepsia, or more rare pathology such as abdominal wall trigger points. --->advance diet, miralax 17g TID, serial exams, time. (2) Sinus pause: Plan: Reviewed telemetry7-second pause, a beat, then a 4-second pausehowever, no pauses, no bradycardia and has been sinus rhythm (with occasional ectopy) since. Echo very reassuring, TSH 2.9almost certainly was a vagal. Continue to follow. (3) Primary hyperparathyroidism: Plan: calcium normalized. was likely up more due to dehydration. outpt f/u, periodic labs for this (4) Multiple sclerosis: Plan: Chronic left-sided weakness, wheelchair-bound at baseline Continue tizanidine as needed for muscle spasms, for now dilauded 0.25 q4 prn breakthrough pain (5) Chronic deep vein thrombosis (DVT) of distal vein of left lower extremity: Plan: Continue Eliquis (6) Paraplegia, unspecified: (7) Hypercalcemia: Plan Disposition: Admit to PCU telemetry Full code Full liquid, low-fat diet; advance diet as tolerated VTE PPx: On Eliquis Admission and Anticipated Discharge Date Admission Date: June 13, 2023 Subjective Feeling better today. Has only had liquid diet. Notes that he only has a bowel movement every couple days. Nausea and vomiting the first time woke him from sleep, this most recent time was also rather random. Has diffuse belly pain. No real focal abdominal pain. Other than his recent admissions, he almost cannot remember the last time he vomited. No need for hot showers/hot water/hot baths. Review of Systems Review of Systems: All systems reviewed & are unremarkable except as noted in HPI & below Physical Exam Physical Exam: In general he is awake and alert pleasant no distress. HEENT normocephalic atraumatic mucous membranes moist. Breathing unlabored no accessory muscle use good effort. Abdomen soft but mild to moderately distended mild to moderate diffuse tenderness no guarding rebound or rigidity. Gaseous distention noted on KUB, some degree of stool noted on previous CT scan. Results & Data Results & Data Vital Signs (Past 12 Hours) Vital Signs Temp Pulse Pulse Resp BP Pulse Ox O2 Del Method 06/15/23 15:14 71 06/15/23 11:57 98.6 F 56 L 16 121/70 94 Room Air 06/15/23 07:27 63 06/15/23 07:25 97.7 F 62 18 123/71 96 Room Air 06/15/23 03:57 97.5 F L 63 20 133/80 95 Room Air PG Care Time/CCT Total # of Minutes Spent Total Time Spent with Patient: Total time spent is greater than 50% in coordination of care (as documented) at patient's floor/unit and/or counseling patient: Coding Level of Care Code 68562 SUB INP/OBS CARE 3/50MIN Diagnoses Nausea & vomiting R11.2 Sinus pause I45.5 Primary hyperparathyroidism E21.0 Multiple sclerosis G35 Chronic deep vein thrombosis (DVT) of distal vein of left lower extremity I82.5Z2 Paraplegia, unspecified G82.20 Hypercalcemia E83.52
[2023-06-15] MEDS: POLYETHYLENE (MIRALAX) 17 GM PACK PO SCH (20:47)
[2023-06-15] MEDS: HYDROmorphone INJ 0.5 MG/0.5 ML SYR IV PRN (20:57)
[2023-06-16 06:52] LABS: Basophils # (auto) 0.05 K/uL (0.00-0.20); Basophils % (auto) 0.5 %; Eosinophils # (auto) 0.09 K/uL (0.00-0.50); Hematocrit (blood only) 40.4 % (42.0-52.0); Hemoglobin 13.4 g/dl (14.0-18.0); Immature Granulocytes # (auto) 0.09 K/uL (0.01-0.20); Lymphocytes # (auto) 1.64 K/uL (1.20-3.40); Lymphocytes % (auto) 17.8 %; Mean Corpuscular Hemoglobin 31.8 pg (25.0-34.0); Mean Corpuscular Hgb Conc 33.2 g/dL (32.0-36.0); Monocytes % (auto) 11.9 %; Neutrophils # (auto) 6.26 K/uL (1.40-6.50); Neutrophils % (auto) 67.8 %; Platelet Count 211 K/uL (130-400); RDW Coefficient of Variation 12.2 % (11.5-14.5); Red Blood Count 4.21 M/uL (4.70-6.10); White Blood Count 9.23 K/ul (4.8-10.8)
[2023-06-16 07:12] LABS: BUN Creatinine Ratio 10.3 (10-20); Calcium 8.5 mg/dl (8.6-10.3); Creatinine Clr Calc Pharmacy 82.5 ml/min; Est GFR (African American) 77.1 ml/min; Est GFR (Non-African American) 66.5 ml/min; Potassium 3.5 mmol/L (3.5-5.1)
--- NOTE | 2023-06-16 14:11 | Discharge Summary ---
Date of Service June 16, 2023 Admission HPI Per Admitting Provider Mazin is a 47-year-old male with PMH of MS, primary hyperparathyroidism, chronic DVT in LLE, and osteoporosis. He presented for N/V/D that began around 0500 on 06/12. Recent [place] hospitalization from 06/08 - 06/10 for similar. He reports that the nausea and vomiting was constant this morning; woke him from sleep. Multiple episodes this morning, but then subsided. He denies hematemesis. He did not take his regular morning medication today; no recent change in medication. Last took Eliquis the evening of 06/11. He has not been tolerating solids or fluids, but has not tried eating since his resolution of nausea/v omiting. He does report that he was drinking beer last night; 3 drinks. He reports he usually averages about a 12 pack/week. No history of seizures or alcohol withdrawal. Patient is wheelchair-bound at baseline. Patient endorses bilateral, throbbing leg pain, which she rates 7/10 at present. This has been an ongoing issue. He denies leg swelling. No radiation above the knee; pain is mainly in the calf/weaver. Vital stable at time of admission. ED course: NSS 1000 mL IV Zofran 4 mg IV Phenergan 6.25 mg IV Morphine sulfate 4 mg IV LR 1000 mL IV ROS: Patient endorses changes in vision (blurry vision), abdominal cramping, N/V, and occassional numbness/tingling/pain in the arms & legs. Patient denies fever, chills, nightsweats, dizziness, lightheadedness, headache, fainting, chest pain, chest palpitations, cough, SOB, hematemesis, change in urinary or bowel habits, burning with urination, or blood in the urine/stool. Note: ED reported that the patient did have a 6-second heart pause, then a beat, then another 3-second heart pause while in bed on telemetry. When nursing staff checked on him, he was initially lethargic/unresponsive, but then startled and woke up. Principal Diagnosis nausea and vomiting Discharge Exam The patient is awake, alert and oriented 3, well developed and well nourished, normocephalic and atraumatic, lying in bed and in no acute distress. HEENT--PERRL, EOMI, mucous membranes and oropharynx mildly dry Neck--supple. No JVD. No bruits. Thyroid normal, trachea midline, no adenopathy. Heart--normal S1 and S2. No murmurs, rubs or gallops. Lungs--clear bilaterally, no respiratory distress, no accessory muscle use. Abdomen--normal bowel sounds and soft. Extremities--poor muscle tone lower extremities Dermatologic--normal skin turgor, normal color, no abnormal lymph nodes, no rash. Neurologic--cranial nerves II through XII grossly intact. Rheumatologic--normal range of motion. Psychiatric--normal affect. Discharge Data Allergies Allergy/AdvReac Type Severity Reaction Status Date / Time aspirin Allergy Severe airway Verified 06/13/23 15:44 edema; hives Consultations 06/13/23 18:06 ED Decision to Admit Stat Hospital Course (1) Nausea & vomiting: Now resolved, patient says he wanted to go home Recent onset, but now several admissions surrounding intractable nausea and vomiting. Initially suspected to be viral. Given the ongoing recurrenceobviously this is now far less likely to be the case. Symptoms have currently improved. His gaseous distention on x-ray (consistent with small bowel obstruction, but his symptoms are not exactly consistent with such) and stool on prior CT, combined with constipation history suggests constipation/a degree of ileus type physiology would be most likely; less likely could be MS related motility issues (which appear to be rare, but his MS does appear to be fairly severe), versus less likely atypical presentation of common illnesses (this does not fit with PUD or biliary dysfunction, but certainly should remain on the differential simply because these are common processes at play, and could be showing up with atypical manifestations because of his MS) - doubt cannabis hyperemesis given the infrequent nature of this until recently, given the lack of any history consistent with hot showers/hot water/etc., and what sounds to be fairly intermittent rather than constant use of cannabis ---> discussed differential and stepwise approach with patienthe expresses appreciation and understandingwill start with bowel regimen gently and advance dietMiraLAX 17 g 3 times daily, goal of regular bowel movements. If this does not improve his symptoms, or is impossible to achieve, then would move to a motility workup (such as gastric emptying study and small bowel follow-through), and if these are all of no yield, then would pursue "atypical presentation of common pathology" (such as with a HIDA scan or an EGD) before moving to a more purely functional pathology such as functional dyspepsia, or more rare pathology such as abdominal wall trigger points. --->advance diet, miralax 17g TID, serial exams, time. (2) Sinus pause: Reviewed telemetry7-second pause, a beat, then a 4-second pausehowever, no pauses, no bradycardia and has been sinus rhythm (with occasional ectopy) since. Echo very reassuring, TSH 2.9almost certainly was a vagal. Continue to follow. (3) Primary hyperparathyroidism: calcium normalized. was likely up more due to dehydration. outpt f/u, periodic labs for this (4) Multiple sclerosis: Chronic left-sided weakness, wheelchair-bound at baseline Continue tizanidine as needed for muscle spasms, for now dilauded 0.25 q4 prn breakthrough pain (5) Chronic deep vein thrombosis (DVT) of distal vein of left lower extremity: Continue Eliquis (6) Paraplegia, unspecified: (7) Hypercalcemia: Plan Disposition: Discharge home Full code Full liquid, low-fat diet; advance diet as tolerated VTE PPx: On Eliquis Total Time Total Time Spent Total Time Spent (In Minutes): 35 Discharge Plan Discharge Items Patient Disposition: Home - Self-Care Reason For Visit: INTRACTABLE NAUSEA AND VOMITING Discharge Diagnosis: nausea and vomiting Condition on Discharge: Fair Activity: Resume your previous activity Non-emergency contact: Primary Care Provider and Neurologist Call non-emergency contact if: you have any medication questions Follow-up/Referrals: Bro Degroot DO [Resident] - 06/18/23 11:05 am Diet: Regular Addtl Attending Provider Instructions: Please make appointment to follow-up with a neurologist as scheduled Pending Studies at Discharge: No Stand-Alone Forms: [employer] Smoking Cessation Medications and DC Order Prescriptions: Continued tizanidine 2 mg tablet 2 mg PO DAILY PRN (Reason: Muscle Spasm) cinacalcet 30 mg tablet 30 mg PO BID fluoxetine 20 mg capsule 20 mg PO HS Eliquis 5 mg tablet 5 mg PO BID acetaminophen [Tylenol Extra Strength] 500 mg Tablet 1,000 mg PO Q6H PRN (Reason: PAIN/FEVER) gabapentin 100 mg Capsule 100 mg PO TID Qty: 90 2RF sennosides [Senokot] 8.6 mg Tablet 17.2 mg PO QAM Qty: 30 0RF Rx Instructions: purchase [id number] polyethylene glycol 3350 [Miralax] 17 gram Powder In Packet 17 g PO DAILY PRN (Reason: constipation) Qty: 30 0RF pantoprazole 40 mg tablet,delayed release (DR/EC) 40 mg PO HS Qty: 30 0RF Discharge Orders: Discharge Order (Routine); Ordered 06/16/23 Ordered By: Walter Pena Admission Data Admit Date/Time: 06/13/23 18:57 Attending Provider: Walter Pena Admit Provider: Filiberto Conn Primary Care Provider: Louis Hale Other Providers: Filiberto Conn Other Interventions: Discharge Summary Assessment (RN) Last Done: 06/16/23 14:06 Coding Level of Care Code 06515 INP/OBS DISCH >30 MIN Diagnoses Nausea & vomiting R11.2 Sinus pause I45.5 Primary hyperparathyroidism E21.0 Multiple sclerosis G35 Chronic deep vein thrombosis (DVT) of distal vein of left lower extremity I82.5Z2 Paraplegia, unspecified G82.20 Hypercalcemia E83.52 Time Spent (min) 35
[2023-06-17 12:28] LABS: Codeine Urine NEGATIVE ng/mL (<50); Hydrocodone Urine NEGATIVE ng/mL (<50); Hydromor Urine NEGATIVE ng/mL (<50); Marijuana Quant, GCMS Urine 561 ng/mL (<5); Morphine Urine 2070 ng/mL (<50); Norhydrocodone Conf Ur NEGATIVE ng/mL (<50); Noroxycodone Urine NEGATIVE ng/mL (<50); Oxycodone Urine NEGATIVE ng/mL (<50); Oxymorph Urine NEGATIVE ng/mL (<50)
== END 2023-06-16 16:15 | disposition home or self-care (01) | DRG 309 ==
LOC: SUATTDRO → ED 15:00 → SUATTDRO 18:57 → 2S 18:57

== ENCOUNTER 2023-09-14 10:42 | Inpatient (IN) ==
--- NOTE | 2023-09-14 11:09 | Emergency Department Note ---
Impression & Plan Acute hypotension, Cellulitis of left leg, Skin ulcer of multiple sites of buttock, limited to breakdown of skin, Vomiting ED Provider Note Name: JAD DICKINSON Age: 47 Sex: Male Arrives Via: Ambulance Informant: Patient ED Provider: Sammy Hill MD Chief Complaint: Vomiting Impression: as per impressions above Medical Decision Makin-year-old gentleman arrives for evaluation of vomiting. Patient with a history of MS bedbound/wheelchair-bound. He admits that he had been laying in his bed for roughly 2 weeks without getting up and then got in his wheelchair for the last 5 days without really transferring at all since then. Arrives with significant skin breakdown bilateral buttock and posterior thigh. No deep ulcerations fortunately at this point. He does have a cellulitis of the left foot extending up the medial left leg and possibly left medial thigh though it is difficult to tell where confluence with candidal type infection throughout the groin. Given his history of severe sepsis with similar symptoms as initial presenting along with the moderate hypotension he has on arrival a septic workup was initiated. He was given IV fluids some pain medications as well as some IV nausea meds. Blood pressure improved quickly with this. After discussing with him he admits he has not been eating or drinking well the last few weeks either. Suspect he is quite dehydrated as cause of hypotension rather than this being sepsis. I do not feel at this point he has evidence of severe sepsis though he does clearly have a cellulitis that is extending up the leg. White count and lactate are unremarkable. He was given empiric MRSA coverage vancomycin as well as some IV Rocephin. Patient is feeling improved. Given his history and findings I think hospitalization would be indicated. Patient feels he is able to care for himself at home but admits he does not transfer much leading to the skin breakdown. Hospitalist consulted for further management. Triage/Nursing Notes reviewed by Me Differential:Infection, dehydration, metabolic abnormality, hypo/hyperglycemia, electrolyte disturbance, anemia, hypoxia, cardiac sources, intracerebral event, toxicologic, neurologic, as well as other pathologies. Vital Signs: reviewed and remarkable for no significant abnormalities Interventions: Normal saline bolus, Dilaudid IV, Zofran IV, vancomycin IV, Rocephin IV Labs:ED labs Reviewed by me and remarkable for no significant abnormalities Imagin view chest x-ray as per my interpretation no infiltrate or effusion appreciated EKG:There as per my interpretation. Indication vomiting. Normal sinus rhythm at 74 bpm QTc of 417. There is no ectopy nor ischemia. Cardiac/Tele Monitoring: Cardiac Monitoring: An Order was placed for continuous cardiac monitoring. The monitor shows a rate of 70 with a normal sinus rhythm. Consults:I discussed case with Dr. Chau of the hospitalist service who will evaluate for further management. Plan: Disposition:Hospitalization. Condition: Good History of Present Illness: 47-year-old gentleman arrives for evaluation of severe nausea, vomiting and bodyaches starting last evening. Associated with some pain in bilateral legs. Patient has a history of MS admits he has been feeling pretty weak for the last few weeks. He has been laying in his bed for 2 weeks and thus 2 days ago moved to his wheelchair where he has been sitting on moving for the last 4 days. Admits he does not often transfer move weight off his buttocks. Due to worsening vomiting and weakness 9 1 was called today. Patient states he just feels very ill. He denies any actual fevers though EMS reports a temperature of 99.2. His blood pressure in route was 92/40. No medications or fluids given prior to arrival. Past Medical History:See Below Home Medications:See Below Allergies:aspirin Vitals:Blood Pressure: 92/58, Pulse 92, RR 20, T 99.2 F, O2 94% on RA Physical Exam: GENERAL: Patient is chronically unwell appearing and in mild distress. RESPIRATORY: No dyspnea. Clear to auscultation and equal bilaterally. CARDIOVASCULAR: Regular rate and rhythm.No murmur appreciated. GASTROINTESTINAL: Abdomen soft, non-tender, no peritonitis. EXTREMITIES: Muscle wasting, no cyanosis, mild edema top of feet. NEUROLOGIC: Alert and oriented. Diffuse weakness all extremities SKIN: Skin breakdown over bilateral buttocks and thighs with some excoriations. Erythema bilateral groin. Cellulitis over the top of the left foot warm to touch no crepitus, erythema then runs up over the left lateral calf and slightly over the medial left thigh. Mild swelling of the left foot as well. PSYCH: Appropriate GCS: 15 ED Course: Times/Reassessments: Stable. Patient does not have evidence of severe sepsis at this time. Sammy Hill MD Past Med/Surg History Problem List (Updated 09/14/23 @ 15:44 by Sammy Hill MD) Vomiting (Acute) Skin ulcer of multiple sites of buttock, limited to breakdown of skin (Acute) Cellulitis of left leg (Acute) Acute hypotension (Acute) Pressure ulcer, stage 1 Hyperparathyroidism Chronic deep vein thrombosis (DVT) of distal vein of left lower extremity Diffuse abdominal pain (Acute) Vomiting and diarrhea (Acute) Elevated lactic acid level (Acute) Leukocytosis (Acute) Acute dehydration (Acute) Sinus pause Elevated lactic acid level (Acute) Leukocytosis (Acute) Nausea & vomiting (Acute) Abdominal pain, RUQ (Acute) Paraplegia, unspecified Sepsis Onychomycosis Cellulitis History of multiple sclerosis (Acute) Fecal incontinence (Acute) Anemia Hypophosphatemia Right ankle strain Osteoporosis Low vitamin D level CKD (chronic kidney disease) Unable to care for self (Acute) Lab test negative for COVID-19 virus (Acute) Current use of [facility] antico[facility] (Acute) Hematuria Hypercalcemia Generalized weakness (Acute) Hypokalemia (Acute) Demyelinating disease Acute kidney injury Ambulatory dysfunction DVT (deep venous thrombosis) (Acute) H/O poor personal hygiene Muscle spasm of left lower extremity (Acute) Stool incontinence (Acute) Hypophosphatemia (Acute) Serum calcium elevated (Acute) Generalized weakness (Acute) Medical History Onychomycosis Osteoporosis CKD (chronic kidney disease) H/O poor personal hygiene Primary hyperparathyroidism Left leg pain Weakness Multiple sclerosis exacerbation Obstructive uropathy 2/2 renal stone, caused RUBI, pt admitted for this and hypercalcemia 05/2018 Hyperparathyroidism Hypercalcemia Chronic pain syndrome Seizure disorder Many years ago may have had single episode, pt was never treated for this, no reoccurrence. Depression Multiple sclerosis Surgical History History of cystoscopy WITH STENT PLACEMENT 06/14/18 [facility] Family History Father Stroke Thyroid disorder Other Hypertension Kidney stones Social History Smoking Status: Current every day smoker Tobacco Type: Smokeless Tobacco (Dip or Chew) Cigarettes Per Day: 0; Second Hand Exposure: No; Do You Dip or Chew Tobacco: No; Hx Alcohol Use: Yes Alcohol type: beer Hx Substance Use: No Preferred Language: Stateless Communication Ability: Effective Melon Packer Required: No Beliefs That Will Affect Care: None marital status: Current Living Situation: Family Current Living Situation Comment: father and uncle current occupational status: disabled How many Children do You have: 2 Feels Safe at Home: Yes Assistive Devices: Hospital Bed, Walker, Wheelchair and Other Allergies Allergies Allergy/AdvReac Type Severity Reaction Status Date / Time aspirin Allergy Severe airway Verified 09/14/23 13:33 edema; hives Home Meds Home Medications Medication Instructions Recorded Confirmed tizanidine 2 mg tablet 2 mg PO DAILY PRN Muscle Spasm 02/13/23 09/14/23 apixaban 5 mg tablet (Eliquis) 5 mg PO BID 03/04/23 09/14/23 cinacalcet 30 mg tablet 30 mg PO BID 03/04/23 09/14/23 fluoxetine 20 mg capsule 20 mg PO HS 03/04/23 09/14/23 acetaminophen 500 mg tablet 1,000 mg PO Q6H PRN PAIN/FEVER 05/26/23 09/14/23 (Tylenol Extra Strength) Previous Rx's Medication Instructions Recorded gabapentin 100 mg capsule 100 mg PO TID #90 caps 05/31/23 Results & Data (ED) Vital Signs Vital Signs - 24 hr 09/14/23 10:33 09/14/23 12:31 09/14/23 12:31 Temperature 37.6 C Temperature Source Oral Pulse Rate 92 H 89 Pulse Rate [Right Finger] 84 Pulse Rhythm Regular Pulse Strength Normal Respiratory Rate 20 18 Respiratory Effort / Characteristics Non-Labored Spontaneous Respiratory Depth Normal Respiratory Pattern Regular Regular Blood Pressure 96/61 L Blood Pressure [Right Arm] 124/77 Blood Pressure Mean 72 Blood Pressure Mean [Right Arm] 92 Blood Pressure Position Sitting Pulse Oximetry 98 97 Oxygen Delivery Method Room Air Room Air Sepsis Recent Fever Within 48 Hours No Sepsis New/Unexplained Change in Mental Status No Sepsis Action Taken by Nursing No Action Required Laboratory Data 09/14/23 11:28 09/14/23 11:28 Lab Results 09/14/23 09/14/23 09/14/23 Range/Units 11:28 11:35 11:38 WBC 10.36 (4.8-10.8) K/ul RBC 4.70 (4.70-6.10) M/uL Hgb 15.1 (14.0-18.0) g/dl Hct 44.2 (42.0-52.0) % MCV 94.0 (80.0-100.0) fL MCH 32.1 (25.0-34.0) pg MCHC 34.2 (32.0-36.0) g/dL RDW Std Deviation 42.1 (36.4-46.3) fL RDW Coeff of Bret 12.0 (11.5-14.5) % Plt Count 225 (130-400) K/uL MPV 10.3 (9.4-12.4) fL Immature Gran % (Auto) 0.5 % Neut % (Auto) 79.7 % Lymph % (Auto) 9.2 % [place] % (Auto) 8.8 % Eos % (Auto) 1.4 % Baso % (Auto) 0.4 % Neut # (Auto) 8.26 H (1.40-6.50) K/uL Lymph # (Auto) 0.95 L (1.20-3.40) K/uL [place] # (Auto) 0.91 H (0.11-0.59) K/uL Eos # (Auto) 0.15 (0.00-0.50) K/uL Baso # (Auto) 0.04 (0.00-0.20) K/uL Immature Gran # (Auto) 0.05 (0.01-0.20) K/uL Sodium 135 L (136-145) mmol/L Potassium 4.2 (3.5-5.1) mmol/L Chloride 105 (98-107) mmol/L Carbon Dioxide 25 (21-32) mmol/L Anion Gap 5 (3-11) BUN 17 (6-23) mg/dl Creatinine 1.11 (0.6-1.4) mg/dl Est Cr Clr Drug Dosing 93.7 ml/min Est GFR ( Amer) 89.9 ml/min Est GFR (Non-Af Amer) 77.6 ml/min BUN/Creatinine Ratio 15.3 (10-20) Glucose 119 H (70-99(Fasting)) mg/dl Lactate 1.5 (0.4-2.0) mmol/L Calcium 11.4 H (8.6-10.3) mg/dl Magnesium 2.3 (1.7-2.4) mg/dl Total Bilirubin 0.4 (0.2-1.0) mg/dl Direct Bilirubin 0.1 (0-0.2) mg/dl AST 17 (13-39) U/L ALT 32 (7-52) U/L Alkaline Phosphatase 64 (34-104) U/L Total Creatine Kinase 67 (30-223) U/L Troponin I High Sens 2.4 (0-20) pg/ml C-Reactive Protein 0.93 H (0-0.5) mg/dl Total Protein 7.0 (6.0-8.3) gm/dl Albumin 4.1 (3.4-5.0) gm/dl Procalcitonin 0.07 (0-0.5) ng/ml Urine Color Yellow Urine Appearance Clear (Clear) Urine pH 6.0 (4.5-7.5) Ur Specific [place] 1.017 (1.000-1.030) Urine Protein Trace H (Negative) Urine Glucose (UA) Negative (Negative) Urine Ketones Negative (Negative) Urine Blood 1+ H (Negative) Urine Nitrite Negative (Negative) Urine Bilirubin Negative (Negative) Urine Urobilinogen Negative (Negative) Ur Leukocyte Esterase 1+ H (Negative) Urine WBC (Auto) 11-20 H (0-5) /hpf Urine RBC (Auto) 11-20 H (0-2) /hpf U Hyaline Cast (Auto) 0-2 (0-2) /lpf U Epithel Cells (Auto) 0-2 (0-2) /hpf Urine Bacteria (Auto) None Seen (None Seen) Administered Medications Parenteral Electrolytes (Plasma-Lyte A Ph 7.4) 1,000 mls @ 125 mls/hr IV .Q8H MANJINDER Stop: 09/15/23 13:29 Last Admin: 09/14/23 15:44 Dose: 125 mls/hr Documented By: JOSETTE Discontinued Medications Hydromorphone HCl (Hydromorphone Inj 0.5 Mg/0.5 Ml Syr) 0.5 mg IV NOW [facility] Stop: 09/14/23 11:07 Last Admin: 09/14/23 12:24 Dose: 0.5 mg Documented By: MR Sodium Chloride (Nss) 1,000 mls @ 999 mls/hr IV .Q1H1M MANJINDER Stop: 09/14/23 12:15 Last Infusion: 09/14/23 13:33 Dose: Infused Documented By: Admin: 09/14/23 12:22 Dose: 999 mls/hr Documented By: Sodium Chloride (Nss) 1,000 mls @ 999 mls/hr IV .Q1H1M ONE Stop: 09/14/23 13:51 Last Infusion: 09/14/23 14:56 Dose: Infused Documented By: Admin: 09/14/23 13:33 Dose: 999 mls/hr Documented By: FLORECITA Vancomycin HCl 2,000 mg/ (Sodium Chloride) 540 mls @ 200 mls/hr IV NOW ONE Stop: 09/14/23 15:32 Last Admin: 09/14/23 15:01 Dose: 200 mls/hr Documented By: Ceftriaxone Sodium (Rocephin) 2,000 mg in 50 mls @ 100 mls/hr IV NOW STA Stop: 09/14/23 13:20 Last Infusion: 09/14/23 14:22 Dose: Infused Documented By: Admin: 09/14/23 13:33 Dose: 100 mls/hr Documented By: FLORECITA Ondansetron HCl (Ondansetron Inj 2 Mg/Ml 2 Ml Vial) 4 mg IV NOW STA Stop: 09/14/23 11:07 Last Admin: 09/14/23 12:22 Dose: 4 mg Documented By: Imaging Data Radiologist's Impression: Chest X-Ray 09/14/23 11:06 XR chest 1V portable CLINICAL HISTORY: Sepsis TECHNIQUE: Single frontal radiograph of the chest was obtained. Comparison: Comparison is made to chest radiograph 06/13/2023 FINDINGS: No lines and tubes are seen. The cardiomediastinal silhouette is normal. The lungs are clear. No evidence of pleural effusion or pneumothorax. IMPRESSION: No acute abnormalities and in particular no radiographic evidence of pneumonia. ACT 112: Negative or not required by law. Electronically signed by: Benigno Munroe M.D. 09/14/2023 11:28 AM Discharge Plan Visit Data Chief Complaint: Skin Problem Stated Complaint: ILLNESS ED Provider: Sammy Hill Discharge Problem: Acute hypotension, Cellulitis of left leg, Skin ulcer of multiple sites of buttock, limited to breakdown of skin, Vomiting Discharge Problem: Vomiting Qualifiers: Vomiting type: unspecified Nausea presence: with nausea Qualified Code(s): R 11.2 - Nausea with vomiting, unspecified
--- NOTE | 2023-09-14 11:29 | XRay Report ---
XR chest 1V portable CLINICAL HISTORY: Sepsis TECHNIQUE: Single frontal radiograph of the chest was obtained. Comparison: Comparison is made to chest radiograph 06/13/2023 FINDINGS: No lines and tubes are seen. The cardiomediastinal silhouette is normal. The lungs are clear. No evid ence of pleural effusion or pneumothorax. IMPRESSION: No acute abnormalities and in particular no radiographic evidence of pneumonia. ACT 112: Negative or not required by law. Electronically signed by: Benigno Munroe M.D. 09/14/2023 11:28 AM
[2023-09-14 12:08] LABS: Appearance Urine Clear (Clear); Bacteria Urine Automated None Seen (None Seen); Bilirubin Urine Negative (Negative); Blood Urine 1+ (Negative); Cast Urine Automated 0-2 /lpf (0-2); Color Urine Yellow; Epithelial Cell Urine Auto 0-2 /hpf (0-2); Glucose Urine UA Negative (Negative); Ketones Urine Negative (Negative); Leukocyte Esterase Urine 1+ (Negative); Nitrite Urine Negative (Negative); Protein Urine Trace (Negative); Specific Gravity Urine 1.017 (1.000-1.030); Urobilinogen Urine Negative (Negative)
[2023-09-14 12:08] LABS: Basophils # (auto) 0.04 K/uL (0.00-0.20); Basophils % (auto) 0.4 %; Eosinophils # (auto) 0.15 K/uL (0.00-0.50); Eosinophils % (auto) 1.4 %; Hematocrit (blood only) 44.2 % (42.0-52.0); Hemoglobin 15.1 g/dl (14.0-18.0); Immature Granulocytes # (auto) 0.05 K/uL (0.01-0.20); Immature Granulocytes % (auto) 0.5 %; Lymphocytes # (auto) 0.95 K/uL (1.20-3.40); Lymphocytes % (auto) 9.2 %; Mean Corpuscular Hemoglobin 32.1 pg (25.0-34.0); Mean Corpuscular Hgb Conc 34.2 g/dL (32.0-36.0); Mean Platelet Volume 10.3 fL (9.4-12.4); Monocytes # (auto) 0.91 K/uL (0.11-0.59); Monocytes % (auto) 8.8 %; Neutrophils # (auto) 8.26 K/uL (1.40-6.50); Neutrophils % (auto) 79.7 %; Platelet Count 225 K/uL (130-400); RDW Standard Deviation 42.1 fL (36.4-46.3); White Blood Count 10.36 K/ul (4.8-10.8)
[2023-09-14] MEDS: SODIUM CHLORIDE 0.9% 1,000 ML IV SCH (12:22)
[2023-09-14] MEDS: ONDANSETRON INJ 2 MG/ML 2 ML VIAL IV STA (12:22)
[2023-09-14] MEDS: HYDROmorphone INJ 0.5 MG/0.5 ML SYR IV STA ×2 (12:24→16:40)
[2023-09-14 12:34] LABS: Albumin Level 4.1 gm/dl (3.4-5.0); BUN Creatinine Ratio 15.3 (10-20); Bilirubin Direct 0.1 mg/dl (0-0.2); Bilirubin,Total 0.4 mg/dl (0.2-1.0); C Reactive Protein 0.93 mg/dl (0-0.5); Calcium 11.4 mg/dl (8.6-10.3); Creatinine Clr Calc Pharmacy 93.7 ml/min; Est GFR (African American) 89.9 ml/min; Est GFR (Non-African American) 77.6 ml/min; Magnesium 2.3 mg/dl (1.7-2.4); Potassium 4.2 mmol/L (3.5-5.1)
[2023-09-14 12:41] LABS: Troponin I High Sensitivity 2.4 pg/ml (0-20)
[2023-09-14] MEDS ORDERED: VANCOMYCIN CONSULT ACTIVE PRN ×2 (12:51→15:43)
--- NOTE | 2023-09-14 12:57 | History & Physical Report ---
Date of Service September 14, 2023 Assessment & Plan (1) Vomiting and diarrhea: Plan: Acute onset of nausea, vomiting, and diarrhea on the evening of 09/12 History of sepsis with prior initial presentation; hypotensive on arrival, but BP quickly came up with fluid resuscitation No leukocytosis; afebrile Blood cultures drawn in the ED Lactate and procalcitonin are both WNL Acetaminophen as needed for pain/fever Zofran as needed for nausea/vomiting IVF resuscitation with Plasma-Lyte at 125 mL/hr x 3 L A.m. CBC, BMP, CRP (2) Cellulitis: Plan: Left lower extremity is erythematous and warm to touch CRP is mildly elevated at 0.93 ESR ordered, pending Vancomycin 1500 mg IV q12h Rocephin 2000 mg IV q24h Follow blood cx (3) Alcohol use: Plan: Patient does endorse daily alcohol use; ~3 beers per day Last drink was the evening of 09/12 prior to coming into the hospital He denies history of alcohol withdrawal or seizures Medical alcohol level ordered, pending Does not appear to be going through alcohol withdrawal at this time AWSS at risk protocol with Ativan as needed Continuous telemetry monitoring (4) Hypercalcemia: Plan: Calcium 11.4 on arrival Suspect secondary to primary hyperparathyroidism, and under removal to take p.o. medications over the past couple days Continue Cinacalcet BID Follow daily calcium levels (5) Pressure ulcer, stage 1: Plan: Skin is intact on the lower back and posterior thighs However, pressure ulcer noted on the left posterior thigh just below the buttocks Daily wound care (6) Paraplegia, unspecified: Plan: Left lower extremity (7) Chronic deep vein thrombosis (DVT) of distal vein of left lower extremity: Plan: Continue Eliquis (8) History of multiple sclerosis: (9) Hyperparathyroidism: Plan Disposition: Admit to [facility] telemetry Full code Regular diet as tolerated VTE PPx: Continue Eliquis History of Present Illness Chief Complaint: N/V/D, skin problem Primary Care Provider: Louis Hale Mazin is a 47yo male with PMH of MS, primary hyperparathyroidism, chronic DVT in LLE, and osteoporosis. He presented for acute onset of vomiting and diarrhea that began the evening of 09/12. Patient reports he started vomiting at 4 PM yesterday; no recent change in diet; he is unsure what triggered it. He denies fevers, but does endorse some chills; he did not take his temperature at home as he does not have a thermometer. He endorses associated diarrhea and stomach discomfort that began yesterday around the same time. Patient first noted erythema on his left lower extremity yesterday, which was not there earlier in the week. Patient did not take his regular morning medications secondary to vomiting; he manages his own medicine at home; no recent change in medications. No history of cellulitis in the lower extremities, but he does have a history of a blood clot in his left leg. Patient did not take his Eliquis this morning or last night; takes it for history of DVT. Patient is normally in a wheelchair at baseline secondary to his MS. He does report everyday alcohol use; 3 beers per day; last drink was last night. He denies history of alcohol withdrawal or seizures. Patient denies smoking, but does use chewing tobacco/snuff. He was hypotensive on arrival at 96/61, but his vitals are stable at time of admission; BP 132/74 after fluid resuscitation in the ED. ED Course: Ceftriaxone 2000mg IV Vancomycin IV NSS 1000 mL IV Zofran 4 mg IV Dilaudid 0.5 mg IV ROS: Patient endorses chills, lightheadedness (resolved), stomach discomfort, N/V/D, and left leg erythema/swelling. Patient denies fever, headache, chest pain, SOB, hematemesis, blood in urine/stool, or numbness/tingling in the arms or legs. Allergies Allergy/AdvReac Type Severity Reaction Status Date / Time aspirin Allergy Severe airway Verified 09/14/23 13:33 edema; hives Home Medications Medication Instructions Recorded Confirmed Type tizanidine 2 mg tablet 2 mg PO DAILY PRN Muscle Spasm 02/13/23 09/14/23 History apixaban 5 mg tablet (Eliquis) 5 mg PO BID 03/04/23 09/14/23 History cinacalcet 30 mg tablet 30 mg PO BID 03/04/23 09/14/23 History fluoxetine 20 mg capsule 20 mg PO HS 03/04/23 09/14/23 History acetaminophen 500 mg tablet 1,000 mg PO Q6H PRN PAIN/FEVER 05/26/23 09/14/23 History (Tylenol Extra Strength) gabapentin 100 mg capsule 100 mg PO TID #90 caps 05/31/23 09/14/23 Rx Past Med/Surg History Problem List (Updated 09/14/23 @ 15:44 by Sammy Hill MD) Vomiting (Acute) Skin ulcer of multiple sites of buttock, limited to breakdown of skin (Acute) Cellulitis of left leg (Acute) Acute hypotension (Acute) Pressure ulcer, stage 1 Hyperparathyroidism Chronic deep vein thrombosis (DVT) of distal vein of left lower extremity Diffuse abdominal pain (Acute) Vomiting and diarrhea (Acute) Elevated lactic acid level (Acute) Leukocytosis (Acute) Acute dehydration (Acute) Sinus pause Elevated lactic acid level (Acute) Leukocytosis (Acute) Nausea & vomiting (Acute) Abdominal pain, RUQ (Acute) Paraplegia, unspecified Sepsis Onychomycosis Cellulitis History of multiple sclerosis (Acute) Fecal incontinence (Acute) Anemia Hypophosphatemia Right ankle strain Osteoporosis Low vitamin D level CKD (chronic kidney disease) Unable to care for self (Acute) Lab test negative for COVID-19 virus (Acute) Current use of prison anticoagulation (Acute) Hematuria Hypercalcemia Generalized weakness (Acute) Hypokalemia (Acute) Demyelinating disease Acute kidney injury Ambulatory dysfunction DVT (deep venous thrombosis) (Acute) H/O poor personal hygiene Muscle spasm of left lower extremity (Acute) Stool incontinence (Acute) Hypophosphatemia (Acute) Serum calcium elevated (Acute) Generalized weakness (Acute) Medical History Onychomycosis Osteoporosis CKD (chronic kidney disease) H/O poor personal hygiene Primary hyperparathyroidism Left leg pain Weakness Multiple sclerosis exacerbation Obstructive uropathy 2/2 renal stone, caused RUBI, pt admitted for this and hypercalcemia 05/2018 Hyperparathyroidism Hypercalcemia Chronic pain syndrome Seizure disorder Many years ago may have had single episode, pt was never treated for this, no reoccurrence. Depression Multiple sclerosis Surgical History History of cystoscopy WITH STENT PLACEMENT 06/14/18 [facility] Family History Father Stroke Thyroid disorder Other Hypertension Kidney stones Social History Smoking Status: Never smoker Tobacco Type: Smokeless Tobacco (Dip or Chew) Cigarettes Per Day: 0; Second Hand Exposure: No; Do You Dip or Chew Tobacco: No; Hx Alcohol Use: Yes Alcohol type: beer Hx Substance Use: No Preferred Language: Vietnamese Communication Ability: Effective Continuous Improvement Facilitator Required: No Beliefs That Will Affect Care: None marital status: Current Living Situation: Parent Current Living Situation Comment: father and uncle current occupational status: disabled How many Children do You have: 2 Other Information That Helps Us Care for You: No Feels Safe at Home: Yes Safety Concerns: Feels Safe At This Time Assistive Devices: Wheelchair Review of Systems 2 Review of Systems: See HPI above Physical Exam 2 Physical Exam: General: no acute distress; non-toxic appearing; well-nourished; cooperative; SpO2 97% on RA HEENT: normocephalic, atraumatic; no scleral icterus; PERRLA w/ EOMs intact; moist mucus membrane; vision and hearing grossly intact Neck: supple; no lymphadenopathy; trachea midline Skin: warm, dry without signs of tenting; no cyanosis; no bruising; excoriations noted on the abdomen CV: chest wall NTP; RRR; S1/S2 normal; no murmurs/rubs/gallops; pulses intact and symmetric at radial, DP, and PT Lungs: no acute respiratory distress; symmetrical chest wall expansion; clear breath sounds across all lung gama w/o adventitious sounds; no wheezing ABD: Soft, NTP; BS present; no rebound/guarding; no distention MSK: no tics or fasciculations; no edema noted in the LEs b/l : Erythematous rash and excoriations around the genitals LLE: Left lower extremity is erythematous and warm to touch when compared to the right; noncircumferential and mainly on the posterior leg extending up towards the buttocks (see photos below); superficial pressure ulcer noted on the left posterior thigh Neuro: A&Ox3; normal mood and affect; fluent speech; no focal deficits; patient reports diminished sensation in his left lower extremity, when compared to the right Results & Data Results & Data Vital Signs (Past 12 Hours) Vital Signs Temp Pulse Pulse Resp BP BP Pulse Ox 09/14/23 12:31 89 09/14/23 12:31 84 18 124/77 97 09/14/23 10:33 37.6 C 92 H 20 96/61 L 98 O2 Del Method 09/14/23 12:31 09/14/23 12:31 Room Air 09/14/23 10:33 Room Air Laboratory Results Abnormal lab results 09/14/23 09/14/23 Range/Units 11:28 11:38 Neut # (Auto) 8.26 H (1.40-6.50) K/uL Lymph # (Auto) 0.95 L (1.20-3.40) K/uL [place] # (Auto) 0.91 H (0.11-0.59) K/uL Sodium 135 L (136-145) mmol/L Glucose 119 H (70-99(Fasting)) mg/dl Calcium 11.4 H (8.6-10.3) mg/dl C-Reactive Protein 0.93 H (0-0.5) mg/dl Urine Protein Trace H (Negative) Urine Blood 1+ H (Negative) Ur Leukocyte Esterase 1+ H (Negative) Urine WBC (Auto) 11-20 H (0-5) /hpf Urine RBC (Auto) 11-20 H (0-2) /hpf Diagnostic Findings Chest X-Ray 09/14/23 11:06 XR chest 1V portable CLINICAL HISTORY: Sepsis TECHNIQUE: Single frontal radiograph of the chest was obtained. Comparison: Comparison is made to chest radiograph 06/13/2023 FINDINGS: No lines and tubes are seen. The cardiomediastinal silhouette is normal. The lungs are clear. No evidence of pleural effusion or pneumothorax. IMPRESSION: No acute abnormalities and in particular no radiographic evidence of pneumonia. ACT 112: Negative or not required by law. Electronically signed by: Benigno Munroe M.D. 09/14/2023 11:28 AM ECG Additional Comments: ECG revealed NSR at 74 bpm; QTc 417 Code Status & VTE Plan Code Status Full code VTE Prophylaxis Plan VTE Prophylaxis will be ordered: Yes Supervising Physician Co-Signing Physician Notes I personally saw and examined the patient. I independently reviewed the labs, EKG, imaging, problem list, medication list, past medical history and family history. I verified all toribio points and agree with Nigel Rodriguez PA-C with the following exceptions and/or additions: 47 year old male presents to the ER with nausea, vomiting, diarrhea that started last night. He has had the symptoms on prior occasions usually when he has infection. He currently has an open area on his left buttocks with surrounding erythema and swelling. He reports feeling pain over this area just in the last day. O/E HS RRR, no murmurs, Chest CTAB, Abdo SNT, multiple areas of swelling and erythema as can be seen in pictures in additional to large area on left buttocks surrounding open, tinea in groin A/P Cellulitis - vancomycin + ceftriaxone, wound care consult Hypercalcemia - due to not able to take Sensipar and dehydration - agree with plasma-lyte for rehydration as above Kaya brennonuris - clotrimazole BID PG Care Time/CCT Total # of Minutes Spent Total Time Spent with Patient: Total time spent is greater than 50% in coordination of care (as documented) at patient's floor/unit and/or counseling patient: [place] [address] INT INP/OBS CARE 3/75MIN Patient Type Established Medical Decision Making High Complexity Diagnoses Vomiting and diarrhea R11.10; R19.7 Cellulitis L03.90 Alcohol use Z72.89 Hypercalcemia E83.52 Pressure ulcer, stage 1 L89.91 Paraplegia, unspecified G82.20 Chronic deep vein thrombosis (DVT) of distal vein of left lower extremity I82.5Z2 History of multiple sclerosis G35 Hyperparathyroidism E21.3
--- NOTE | 2023-09-14 13:09 | Electrocardiogram Report ---
Test Reason : Blood Pressure : / mmHG Vent. Rate : 074 BPM Atrial Rate : 074 BPM P-R Int : 162 ms QRS Dur : 090 ms QT Int : 376 ms P-R-T Axes : 026 -06 032 degrees QTc Int : 417 ms Normal sinus rhythm Inferior infarct , age undetermined Abnormal ECG When compared with ECG of 13-JUN-2023 18:12, Inferior infarct is now Present Confirmed by Pola Flynn ([id number]) on 09/14/2023 1:09:28 PM Referred By: REFERRED SELF Confirmed By:Pola Flynn
[2023-09-14] MEDS ORDERED: LORazepam 1 MG in SYRINGE 0.5 ML IV PRN (13:15)
[2023-09-14] MEDS: SODIUM CHLORIDE 0.9% 1,000 ML IV ONE (13:33)
[2023-09-14] MEDS: cefTRIAXone SODIUM 2,000 MG/50 ML BAG IV STA (13:33)
[2023-09-14] MEDS: VANCOMYCIN HCL 2,000 MG in SODIUM CHLORIDE 0.9% 500 ML IV ONE (15:01)
[2023-09-14] MEDS ORDERED: ONDANSETRON INJ 2 MG/ML 2 ML VIAL IV PRN (15:43)
[2023-09-14] MEDS ORDERED: ACETAMINOPHEN 325 MG TAB PO PRN (15:43)
[2023-09-14] MEDS: PLASMA-LYTE A 1,000 ML IV SCH (15:44)
[2023-09-14 15:48] LABS: INR 0.9 (0.9-1.1); Prothrombin Time 9.8 Seconds (9.0-12.0)
[2023-09-14] MEDS: GABAPENTIN 100 MG CAP PO SCH (16:35)
--- NOTE | 2023-09-14 17:36 | Ultrasound Report ---
ULTRASOUND LEFT LOWER EXTREMITY VENOUS CLINICAL HISTORY: Leg pain and swelling. Erythema. COMPARISON STUDY: Left lower extremity venous ultrasound dated 02/13/2021 TECHNIQUE: Real-time, grayscale, and color Doppler sonography of the deep veins of the left lower ext remity was performed from the inguinal crease to the calf. Compression and augmentation were utilized . FINDINGS: There is no sonographic evidence of deep venous thrombosis identified in the left lower ext remity. The common femoral, superficial femoral, and popliteal veins are patent and normally compress ible. The greater saphenous vein and the profunda femoris vein at the junction with the common femora l vein are clear. The visualized calf veins are patent. Soft tissue edema is noted in the left leg. IMPRESSION: There is no sonographic evidence of deep venous thrombosis identified in the left lower e xtremity. ACT 112: Negative or not required by law. Electronically signed by: Eris Guallpa M.D. 09/14/2023 5:34 PM
[2023-09-14] MEDS: APIXABAN 5 MG TABLET PO SCH (20:45)
[2023-09-14] MEDS: FLUoxetine HCL 20 MG CAP PO SCH (20:45)
[2023-09-14] MEDS: CINACALCET HCL 30 MG TAB PO SCH (20:45)
[2023-09-14] MEDS: VANCOMYCIN HCL 1,250 MG in SODIUM CHLORIDE 0.9% 250 ML IV SCH (22:27)
[2023-09-14] MEDS: KETOROLAC TROMETHAMINE 15 MG/ML VIAL IV STA (22:27)
[2023-09-14] MEDS: CLOTRIMAZOLE 1% CR 15 GM TUBE EXT SCH (22:59)
[2023-09-15] MEDS: KETOROLAC TROMETHAMINE 15 MG/ML VIAL IV PRN (05:22)
[2023-09-15 07:31] LABS: Basophils # (auto) 0.04 K/uL (0.00-0.20); Basophils % (auto) 0.6 %; Eosinophils # (auto) 0.22 K/uL (0.00-0.50); Eosinophils % (auto) 3.4 %; Hematocrit (blood only) 40.4 % (42.0-52.0); Hemoglobin 13.6 g/dl (14.0-18.0); Immature Granulocytes # (auto) 0.04 K/uL (0.01-0.20); Immature Granulocytes % (auto) 0.6 %; Lymphocytes # (auto) 1.06 K/uL (1.20-3.40); Lymphocytes % (auto) 16.6 %; Mean Corpuscular Hemoglobin 32.3 pg (25.0-34.0); Mean Corpuscular Hgb Conc 33.7 g/dL (32.0-36.0); Mean Platelet Volume 10.1 fL (9.4-12.4); Monocytes # (auto) 0.74 K/uL (0.11-0.59); Monocytes % (auto) 11.6 %; Neutrophils # (auto) 4.29 K/uL (1.40-6.50); Neutrophils % (auto) 67.2 %; Platelet Count 159 K/uL (130-400); RDW Standard Deviation 42.2 fL (36.4-46.3); Red Blood Count 4.21 M/uL (4.70-6.10); White Blood Count 6.39 K/ul (4.8-10.8)
[2023-09-15 07:51] LABS: BUN Creatinine Ratio 12.5 (10-20); C Reactive Protein 0.81 mg/dl (0-0.5); Calcium 8.8 mg/dl (8.6-10.3); Est GFR (African American) 97.3 ml/min; Est GFR (Non-African American) 83.9 ml/min; Potassium 4.1 mmol/L (3.5-5.1)
--- NOTE | 2023-09-15 09:09 | Medical Student Progress Note ---
Date of Service September 15, 2023 Assessment & Plan (1) Cellulitis: Plan: Left lower extremity is mildly erythematous and warm to touch. Areas of erythema have significantly improved from images taken in ED. There is no purulence. Possibility these areas of erythema could be due to underlying cellulitis. However, also possible these findings could be due to early onset of venous stasis. Patient is not septic, remains afebrile, CRP was minimally elevated on arrival and has trended down, procalcitonin level normal. Patient is wheelchair bound at baseline so elevation of legs in bed while in hospital could be contributing to improvement in overall symptoms since arriving. DVT unlikely due to negative Doppler U/S. Status: acute, stable. - Stop Vancomycin 1500 mg IV q12h - Stop Rocephin 2000 mg IV q24h. - Follow blood cx - Follow MRSA nares culture (2) Vomiting and diarrhea: Plan: KUB x-ray showed evidence of mild to moderate fecal retention in the colon. Likely patient has overflow diarrhea from chronic constipation. Status: acute, stable. - Miralax 85mg PO - Zofran prn for n/v - Acetaminophen prn for pain control (3) Hypercalcemia: Plan: Calcium 11.4 on arrival. Likely secondary to primary hyperparathyroidism. Calcium level has trended down to within normal range. Status: Chronic, stable. - Continue Cinacalcet BID - Follow daily calcium levels (4) Chronic deep vein thrombosis (DVT) of distal vein of left lower extremity: Plan: Patient has a history of DVT. Venous Doppler U/S of LLE was negative for recurrence. Status: Chronic, stable. - Continue Eliquis. (5) History of multiple sclerosis: Plan: Status: chronic, stable. - Continue Tizanidine Plan Disposition: [facility] telemetry Code: Full code Diet: Regular as tolerated DVT Prophylaxis: Eliquis Admission and Anticipated Discharge Date Admission Date: September 14, 2023 Supervising Attestation I personally examined the patient and verified all toribio points of history and exam, discussed case, and agree with decision making with Dr Dayron Gudino and [place] MS4 feeling better than yesterday. Leg redness has totally resolved. Belly pain better. Does not have bowel movements often. Notes that this predates his MS diagnosis. Vitals noted, in general he is awake and alert pleasant no distress. HEENT normocephalic atraumatic mucous membranes moist. Abdomen is soft mildly distended nontender no guarding rebound or rigidity. Extremities show no cyanosis clubbing or edema no erythema the outlined areas have now resolved to totally normal. Nausea/vomitingas I have suspected before, his situation as well as his KUB appear consistent with constipationreaddressed the need for chronic bowel regimen. 85 g of MiraLAX x 1 now, and then discussed utilizing daily MiraLAX titrating to a goal of bowel movement every day. Lower extremity skin changesno sepsis, no leukocytosis, inflammatory markers extremely reassuring, resolved essentially immediately, sounds like there was not really any new pain or tendernessnonspecific, not entirely clear what the etiology was, but highly unlikely to have been infectious. DC antibiotics and follow. Anticoagulated. Hopefully home tomorrow. Subjective Patient is a 47y/o male with a past medical history of multiple sclerosis (wheel chair bound), hyperparathyroidism, and DVT on Eliquis who presented to the ED on 09/14/23 for vomiting, chills, and diarrhea. Patient states these symptoms began on 09/13/23. He was hypotensive on arrival but this corrected with fluids. Erythema over the LLE was found upon arrival. Patient states he was not aware of this prior. Patient states he is compliant with medications, taking Eliquis daily. Patient denies pain outside of normal baseline. Patient states his ankles swell occasionally however he denies discoloration or seeping of the skin in his lower extremities. Patient states he has not been in the villarreal recently and does not go outside unless he has to. Patient had a mildly elevated CRP in ED and procalcitonin level was normal. Calcium level elevated 11.4. Chest radiograph was negative for any abnormalities or consolidation. Venous Doppler U/S of LLE was also negative. Today patient states he is feeling better. There were no acute events overnight. He endorses some lingering fatigue. Patient is no longer nauseous and has not vomited since arrival to the ED. Patient states diarrhea has improved. Patient denies fever, chills, CP, palpitations, abdominal pain, n/v, lightheadedness, or dizziness. Review of Systems Review of Systems: As per above. Physical Exam Constitutional: Patient sitting upright in bed. Alert and oriented, in no acute distress. Eyes: PEERL, EOMI, anicteric sclera, no conjunctival injection. Respiratory: Breath sounds equal bilaterally. Lungs clear to auscultation. No wheezes, rales, or rhonchi. Cardiovascular: Regular rate and rhythm. No murmurs, rubs, or gallops. No peripheral edema. Capillary refill <2sec. Gastrointestinal (Abdomen): Bowel sounds normal. Abdomen soft and nondistended. No tenderness to palpation. No hepatosplenomegaly. No guarding or rebound. Musculoskeletal: LLE: areas of mild erythema and warmth with indistinct borders over dorsum of distal foot, medial and lateral weaver, and posterolateral thigh. These areas have not extended past purple outline placed in the ED. Negative purulence. No peripheral edema. Negative Homans sign. Neurologic: CN II-XII intact. No focal deficits. Results & Data Vital Signs (Past 12 Hours) Vital Signs Temp Pulse Pulse Resp BP Pulse Ox O2 Del Method 09/15/23 07:37 36.5 C 81 14 139/83 97 Room Air 09/15/23 04:23 36.3 C L 78 18 125/82 96 Room Air 09/14/23 23:31 36.5 C 91 H 20 119/73 94 Room Air 09/14/23 21:58 79 Resident Activity Tracking Resident Involvement: Resident Care Provided Care Provided: Adult Hospital Medicine
[2023-09-15] MEDS: oxyCODONE HCL IR 5 MG TAB (IMMEDIATE RELEASE) PO PRN ×2 (09:49→17:11)
--- NOTE | 2023-09-15 09:51 | Pharmacy Report ---
Pharmacy PK ABX Note - Date of Service September 15, 2023 - Assessment and Plan Assessment 47 year old M receiving ceftriaxone/vancomycin for treatment of cellulitis. Pertinent microbiologic data includes: blood cultures and urine culture pending. Day # 1 of antimicrobial therapy. Plan Vancomycin * Loading dose: 2000 mg IV x 1 * Maintenance dose: 1250 mg IV every 12 hours * Regimen is predicted to achieve target AUC/DOMENIC of 400-600 mg/L.hr * Random level ordered for: 09/16/23 with AM labs Pharmacy will continue to follow and will adjust dose/frequency as necessary. Thank you. Pharmacy has transitioned to AUC monitoring for vancomycin. AUC/DOMENIC is the preferred PK/PD target and is associated with decreased risk of nephrotoxicity compared to traditional trough targets.
[2023-09-15] MEDS: cephALEXin 500 MG CAP PO SCH (12:45)
--- NOTE | 2023-09-15 13:58 | XRay Report ---
KUB CLINICAL HISTORY: Constipation. FINDINGS: 2 AP supine abdominal radiographs are compared to study dated 06/14/2023 and correlated with abdominal CT dated 06/09/2023. There is a nonobstructed abdominal bowel gas pattern. [id number] fecal retention is seen throughout the colon. There is a 3.3 cm staghorn calculus projecting over the left renal pelvis. Additional calculi projecting over the left lower pole measure up to 13 mm. A pun ctate calculus projects over the right lower pole. There is no radiographic evidence of ureteral ston e. Pelvic phleboliths are similar to previous. The bony structures appear intact. IMPRESSION: 1. Nonobstructed abdominal bowel gas pattern. 2. Nephrolithiasis as above. Electronically signed by: Eris Guallpa M.D. 09/15/2023 1:56 PM
[2023-09-15] MEDS ORDERED: cefTRIAXone SODIUM 2,000 MG/50 ML BAG IV SCH (14:00)
[2023-09-15] MEDS: POLYETHYLENE (MIRALAX) 17 GM PACK PO ONE (16:18)
--- NOTE | 2023-09-15 17:04 | Billing Data ---
Date of Service September 15, 2023 Coding Level of Care Code 28441 SUB INP/OBS CARE MIN
[2023-09-15 23:44] LABS: A calco-baum cmplx NotReported Not Detected (NotDetected); Bact fragilis Not Reported Not Detected (NotDetected); Blood Culture Id Panel PCR Panel Negative (NotDetected); C auris Not Reported Not Detected (NotDetected); Calbicans Not Reported Not Detected (NotDetected); Candida glabrata Not Reported Not Detected (NotDetected); Candida krusei Not Reported Not Detected (NotDetected); Cneoformans/gatti Not Reported Not Detected (NotDetected); Cparapsilosis Not Reported Not Detected (NotDetected); E cloacae compx Not Reported Not Detected (NotDetected); Efaecalis Not Reported Not Detected (NotDetected); Efaecium Not Reported Not Detected (NotDetected); Enterobacterales Not Reported Not Detected (NotDetected); Escherichia coli Not Reported Not Detected (NotDetected); H influenzae Not Reported Not Detected (NotDetected); K aerogenes Not Reported Not Detected (NotDetected); Koxytoca Not Reported Not Detected (NotDetected); Kpneumoniae grp Not Reported Not Detected (NotDetected); Lmonocyt Not Reported Not Detected (NotDetected); N meningitidis Not Reported Not Detected (NotDetected); P aeruginosa Not Reported Not Detected (NotDetected); Proteus spp Not Reported Not Detected (NotDetected); Salmonella spp Not Reported Not Detected (NotDetected); Staph lugdunensis Not Reported Not Detected (NotDetected); Staph spp. Not Reported Not Detected (NotDetected); Staphaureus Not Reported Not Detected (NotDetected); Staphepi Not Reported Not Detected (NotDetected); Stenmaltophilia Not Reported Not Detected (NotDetected); Strep agal(GrpB) Not Reported Not Detected (NotDetected); Strep pneum Not Reported Not Detected (NotDetected); Strep pyog (GrpA) Not Reported Not Detected (NotDetected); Strep spp Not Reported Not Detected (NotDetected)
[2023-09-16] MEDS ORDERED: VANCOMYCIN CONSULT ACTIVE PRN (01:51)
[2023-09-16] MEDS: VANCOMYCIN HCL 1,250 MG in SODIUM CHLORIDE 0.9% 250 ML IV SCH (02:43)
[2023-09-16] MEDS: cefTRIAXone SODIUM 2,000 MG/50 ML BAG IV SCH (02:43)
[2023-09-16 07:39] LABS: Basophils # (auto) 0.04 K/uL (0.00-0.20); Basophils % (auto) 0.6 %; Eosinophils # (auto) 0.22 K/uL (0.00-0.50); Eosinophils % (auto) 3.2 %; Hematocrit (blood only) 39.1 % (42.0-52.0); Hemoglobin 13.2 g/dl (14.0-18.0); Immature Granulocytes # (auto) 0.03 K/uL (0.01-0.20); Immature Granulocytes % (auto) 0.4 %; Lymphocytes # (auto) 1.18 K/uL (1.20-3.40); Lymphocytes % (auto) 17.3 %; Mean Corpuscular Hemoglobin 32.3 pg (25.0-34.0); Mean Corpuscular Hgb Conc 33.8 g/dL (32.0-36.0); Mean Corpuscular Volume 95.6 fL (80.0-100.0); Mean Platelet Volume 9.6 fL (9.4-12.4); Monocytes # (auto) 0.62 K/uL (0.11-0.59); Monocytes % (auto) 9.1 %; Neutrophils # (auto) 4.73 K/uL (1.40-6.50); Neutrophils % (auto) 69.4 %; Platelet Count 179 K/uL (130-400); RDW Coefficient of Variation 11.9 % (11.5-14.5); RDW Standard Deviation 41.2 fL (36.4-46.3); Red Blood Count 4.09 M/uL (4.70-6.10); White Blood Count 6.82 K/ul (4.8-10.8)
[2023-09-16 07:56] LABS: Anion Gap 4 (3-11); BUN Creatinine Ratio 10.9 (10-20); Blood Urea Nitrogen 11 mg/dl (6-23); C Reactive Protein < 0.50 mg/dl (0-0.5); Calcium 8.6 mg/dl (8.6-10.3); Carbon Dioxide 26 mmol/L (21-32); Chloride 109 mmol/L (98-107); Est GFR (African American) 100.8 ml/min; Est GFR (Non-African American) 86.9 ml/min; Glucose 93 mg/dl (70-99(Fasting)); Potassium 3.8 mmol/L (3.5-5.1); Sodium 139 mmol/L (136-145)
--- NOTE | 2023-09-16 09:00 | Pharmacy Report ---
Pharmacy PK ABX Note - Date of Service September 16, 2023 - Assessment and Plan Assessment 09/15: Vancomycin discontinued yesterday afternoon, blood cultures returned positive yesterday for gram + bacilli and gram negative bacilli (BioFire ID negative) and vancomycin subsequently restarted. Also on ceftriaxone, likely to cover the gram negative bacilli. Patient is stable and improving. 09/14: 47 year old M receiving ceftriaxone/vancomycin for treatment of cellulitis. Pertinent microbiologic data includes: blood cultures and urine culture pending. Day # 1 of antimicrobial therapy. Plan Vancomycin * Loading dose: 2000 mg IV x 1 * Maintenance dose: 1250 mg IV every 12 hours * Regimen is predicted to achieve target AUC/DOMENIC of 400-600 mg/L.hr * Random level ordered for: 09/17/23 @1200 Pharmacy will continue to follow and will adjust dose/frequency as necessary. Thank you. Pharmacy has transitioned to AUC monitoring for vancomycin. AUC/DOMENIC is the preferred PK/PD target and is associated with decreased risk of nephrotoxicity compared to traditional trough targets.
[2023-09-16] MEDS ORDERED: LAVAGE SOLUTION 4000ML PO SCH (10:15)
--- NOTE | 2023-09-16 10:17 | Medical Student Progress Note ---
Date of Service September 16, 2023 Assessment & Plan (1) Cellulitis: Plan: Areas of erythema over LLE are much improved. Patient remains afebrile, WBC count normal, CRP trended into normal range. Blood cultures positive for gram positive bacilli and gram negative bacilli. Status: acute, stable. - Continue Vancomycin - Continue Ceftriaxone - Infectious Disease consulted and recommended repeat blood culture - Continue to follow blood culture and adjust antibiotics as needed (2) Positive blood cultures: Plan: Blood cultures positive for gram positive bacilli and gram negative bacilli. Patient remains afebrile, WBC count normal, CRP trended into normal range. Status: acute, controlled. - Continue Vancomycin - Continue Ceftriaxone - Infectious disease consulted and recommended repeat blood culture - Continue to follow blood culture and adjust antibiotics as needed (3) Vomiting and diarrhea: Plan: KUB x-ray showed evidence of mild to moderate fecal retention in the colon. Likely patient has overflow diarrhea from chronic constipation. Status: acute, stable. - Continue polyethylene glycol - Zofran prn for n/v - Acetaminophen prn for pain control (4) Hypercalcemia: Plan: Calcium 11.4 on arrival. Likely secondary to primary hyperparathyroidism. Calcium level has trended down to within normal range. Status: Chronic, stable. - Continue Cinacalcet BID - Follow daily calcium levels (5) Chronic deep vein thrombosis (DVT) of distal vein of left lower extremity: Plan: Patient has a history of DVT. Venous Doppler U/S of LLE was negative for recurrence. Status: Chronic, stable. - Continue Eliquis. (6) History of multiple sclerosis: Plan: Status: chronic, stable. - Continue Tizanidine Plan Disposition: [facility] telemetry Code: Full code Diet: Regular as tolerated DVT Prophylaxis: Eliquis Admission and Anticipated Discharge Date Admission Date: September 14, 2023 Supervising Attestation I personally examined the patient and verified all toribio points of history and exam, discussed case, and agree with decision making with Dr Dayron Gudino and [place] MS4 Feels okay overall. Expresses an understandable reticence about going home with the concern of fecal incontinence as we are getting his bowels moving and his overall immobility. No other new complaints.. Vitals noted, in general he is awake and alert pleasant no distress. HEENT normocephalic atraumatic mucous membranes moist. Abdomen is soft mildly distended nontender no guarding rebound or rigidity. Extremities show no cyanosis clubbing or edema no erythema the outlined areas have remained resolved to totally normal. Nausea/vomitingas I have suspected before, his situation as well as his KUB appear consistent with constipationreaddressed the need for chronic bowel regimen. no significant results after 85 g of MiraLAXand after discussion with patient, he is hesitant to go home in the "cleanout" phase of getting his bowels moving given risk of fecal incontinence due to his immobilitythis is quite reasonable. To that end we discussed the situation and will try to proceed more quickly with GoLytely prep today positive blood culturesreally nothing about his situation appears consistent with sepsis or infection, but at the same time it is somewhat difficult to write off gram-negatives on any blood culture or 2/2 of gram-positives on blood culture is contaminantagree with continuing antibiotics for now, ask infectious disease for input. Repeat cultures, await speciation. Lower extremity skin changesno sepsis, no leukocytosis, inflammatory markers extremely reassuring, resolved essentially immediately, sounds like there was not really any new pain or tendernessnonspecific, not entirely clear what the etiology was, but highly unlikely to have been infectious. See abovethe main reason he is now back on antibiotics is because of his positive blood cultures not any concern on lower extremity cellulitis Anticoagulated. Subjective Today patient states he continues to feel better. Patient states Miralax has been working and he has been passing stool. Patient denies fever, chills, CP, palpitations, abdominal pain, n/v, lightheadedness, or dizziness. Blood cultures came back positive over night for gram positive bacilli and gram negative bacilli. Patient was started on ceftriaxone and vancomycin. Patient is tolerating these medications well at this time. Review of Systems Review of Systems: As per HPI. Physical Exam Constitutional: Patient sitting upright in bed. Alert and oriented, in no acute distress. Eyes: PEERL, EOMI, anicteric sclera, no conjunctival injection. Respiratory: Breath sounds equal bilaterally. Lungs clear to auscultation. No wheezes, rales, or rhonchi. Cardiovascular: Regular rate and rhythm. No murmurs, rubs, or gallops. No peripheral edema. Capillary refill <2sec. Gastrointestinal (Abdomen): Normal bowel sounds. Abdomen soft and nondistended. No tenderness to palpation. No hepatosplenomegaly. No guarding or rebound. Musculoskeletal: LLE: Areas of mild erythema with some warmth over dorsum of L foot and posterolateral L thigh. No erythema over lateral or medial lower extremity. Negative Homans sign. Neurologic: CN II-XII. No focal deficits. Results & Data Vital Signs (Past 12 Hours) Vital Signs Temp Pulse Pulse Resp BP Pulse Ox O2 Del Method 09/16/23 07:59 36.8 C 71 16 144/90 H 96 Room Air 09/16/23 03:17 36.8 C 70 20 143/76 H 97 Room Air 09/15/23 22:57 36.6 C 82 20 145/86 H 96 Room Air 09/15/23 22:11 75 Resident Activity Tracking Resident Involvement: Resident Care Provided Care Provided: Adult Hospital Medicine Resident Supervision Co-Signing Physician Notes Patient seen and examined with [place] MS4. Agree with documented findings as noted with any exception noted here Patient seen this am. Refers nausea is improving. Had BM in the morning. Still with his chronic leg pain. Nausea/vomiting/ constipation: resolving. Miralax and Golytely ordered. Blood culture positive gram positive bacilli in 2 bottles and 1 positive gram negative bacilli in one bottle. Patient was placed back to IV Ceftriaxone and IV vancomycin as empiric treatment. No leukocytosis. Vitals signs stable, n signs of SIRS. ID consulted due to possible gram positive bacteremia. Will follow official result and change abx as needed. Will repeat Bcx today. Skin changes: Improving.
[2023-09-16] MEDS: LAVAGE SOLUTION 4000ML PO SCH (14:18)
--- NOTE | 2023-09-16 15:02 | Infectious Disease Consult ---
Date of Consultation September 16, 2023 Assessment & Plan (1) Positive blood cultures: (2) Cellulitis of left leg: (3) Skin ulcer of multiple sites of buttock, limited to breakdown of skin: (4) Vomiting and diarrhea: Plan ID Problem List: 1. LLE cellulitis, improving 2. GPR and GNR bacteremia 3. Diarrhea, felt to be 2/2 overflow from constipation, improving on bowel regimen 4. MS Impression: Mazin Ramirez is a 47-year-old man with history of MS, primary hyperparathyroidism, chronic DVT in LLE on Eliquis, and osteoporosis, who presents to [facility] on 09/12 for acute vomiting and diarrhea. Found to have LLE erythema c/f cellulitis, and 09/13 BCx + GPRs and GNRs. ID is consulted for bacteremia and cellulitis. The patient began vomiting around 4 pm on 09/12. He also had diarrhea and abdominal discomfort that started around the same time. No fevers, but did report chills. He also noted LLE erythema starting on 09/12. He is normally in a wheelchair for his MS. He reports daily EtOH use (3 beers/day) and uses chewing tobacco. In the ED, BP 96/61 (to 132/74 after IV fluids). WBC 10.36. Cr 1.11. LFTs wnl. CRP 0.93. Procal 0.07. UA with 11-20 WBCs, 11-20 RBCs. In the ED, noted to have LLE erythema and warmth in the posterior leg toward the buttocks. No wounds or purulence noted. He was started on vancomycin and ceftriaxone. LLE duplex negative for DVT. KUB with mild-moderate fecal retention in the colon currently pts diarrhea has been attributed to constipation with overflow and pt was started on a bowel regimen. 09/13 BCx later with GPRs and GNRs (BCID negative), awaiting speciation. At the time of evaluation, the patient reports that he feels much better. He is still weaker than baseline otherwise his abdominal discomfort, vomiting, and diarrhea have resolved. He denies any hardware/implants/cardiac devices. His LLE erythema has nearly completely resolved. Discussion Patient presenting with GI symptoms and LLE erythema. GI symptoms have been attributed to constipation (KUB with fecal retention) and haves resolved while on a bowel regimen. LLE erythema and warmth felt to be c/w cellulitis, and has nearly completely resolved as of 09/15 while on abx. MRSA nares neg. Patient also found to have GPR and GNR bacteremia on initial 09/13 BCx. This is of unclear source. BCID negative. May be skin contamination or possibly GI translocation in the setting of fecal retention) awaiting speciation for clinical significance. Has shallow sacral pressure ulcers with skin flaking though this seems less likely the source. Will repeat BCx (ordered on 09/15) to confirm clearance. The patient has been afebrile and with normal WBC count, and his cellulitis has nearly completely resolved on abx. Has improved on vancomycin and ceftriaxone and thus can continue for now. If clinical worsening, can b roaden from ceftriaxone to cefepime. Recommendations: - Continue vancomycin (dosing per Rx) and ceftriaxone 2g IV q24h for now - Repeat BCx to confirm clearance (ordered for 09/15) - F/u 09/13 BCx speciation of GNRs and GPRs ID will continue to follow. Marianna Holm MD, MHS Infectious Diseases [facility] direct line: [phone] Consultation Information Consultation was provided via telemedicine using two-way real-time interactive telecommunication between the patient and the telemedicine provider. For the duration of the visit, the provider was performing the assessment from a different facility than the patient. This includesuse of bluetooth stethoscope forauscultationperformed by the telepresenter that the telemedicine provider can hear if described in the physical exam. [employer] contact information: Please call [facility] Call Center [phone]. (Phone Number For Physician Use Only) After establishing a telemedicine visit, patient was: Patient was verified with two unique identifiers, Patient/authorized rep acknowledged consent and understanding and Gave permission to continue telehealth session Time Spent with Patient: Initial => 75 min History of Present Illness Reason for Consultation: GPR and GNR bacteremia, LLE cellulitis Attending Physician: Dayo Anderson DO History of Present Illness Mazin Ramirez is a 47-year-old man with history of MS, primary hyperparathyroidism, chronic DVT in LLE on Eliquis, and osteoporosis, who presents to [facility] on 09/12 for acute vomiting and diarrhea. Found to have LLE erythema c/f cellulitis, and 09/13 BCx + GPRs and GNRs. ID is consulted for bacteremia and cellulitis. The patient began vomiting around 4 pm on 09/12. He also had diarrhea and abdominal discomfort that started around the same time. No fevers, but did report chills. He also noted LLE erythema starting on 09/12. He is normally in a wheelchair for his MS. He reports daily EtOH use (3 beers/day) and uses chewing tobacco. In the ED, BP 96/61 (to 132/74 after IV fluids). WBC 10.36. Cr 1.11. LFTs wnl. CRP 0.93. Procal 0.07. UA with 11-20 WBCs, 11-20 RBCs. In the ED, noted to have LLE erythema and warmth in the posterior leg toward the buttocks. No wounds or purulence noted. He was started on vancomycin and ceftriaxone. LLE duplex negative for DVT. KUB with mild-moderate fecal retention in the colon currently pts diarrhea has been attributed to constipation with overflow and pt was started on a bowel regimen. 09/13 BCx later with GPRs and GNRs (BCID negative), awaiting speciation. At the time of evaluation, the patient reports that he feels much better. He is still weaker than baseline otherwise his abdominal discomfort, vomiting, and diarrhea have resolved. He denies any hardware/implants/cardiac devices. His LLE erythema has nearly completely resolved. Allergies Allergy/AdvReac Type Severity Reaction Status Date / Time aspirin Allergy Severe airway Verified 09/14/23 13:33 edema; hives Home Medications Medication Instructions Recorded Confirmed Type tizanidine 2 mg tablet 2 mg PO DAILY PRN Muscle Spasm 02/13/23 09/14/23 History apixaban 5 mg tablet (Eliquis) 5 mg PO BID 03/04/23 09/14/23 History cinacalcet 30 mg tablet 30 mg PO BID 03/04/23 09/14/23 History fluoxetine 20 mg capsule 20 mg PO HS 03/04/23 09/14/23 History acetaminophen 500 mg tablet 1,000 mg PO Q6H PRN PAIN/FEVER 05/26/23 09/14/23 History (Tylenol Extra Strength) gabapentin 100 mg capsule 100 mg PO TID #90 caps 05/31/23 09/14/23 Rx Patient History Medical History Onychomycosis Osteoporosis CKD (chronic kidney disease) H/O poor personal hygiene Primary hyperparathyroidism Left leg pain Weakness Multiple sclerosis exacerbation Obstructive uropathy 2/2 renal stone, caused RUBI, pt admitted for this and hypercalcemia 05/2018 Hyperparathyroidism Hypercalcemia Chronic pain syndrome Seizure disorder Many years ago may have had single episode, pt was never treated for this, no reoccurrence. Depression Multiple sclerosis Surgical History History of cystoscopy WITH STENT PLACEMENT 06/14/18 [facility] Family History Father Stroke Thyroid disorder Other Hypertension Kidney stones Social History Smoking Status: Never smoker Tobacco Type: Smokeless Tobacco (Dip or Chew) Cigarettes Per Day: 0; Second Hand Exposure: No; Do You Dip or Chew Tobacco: No; Hx Alcohol Use: Yes Alcohol type: beer Hx Substance Use: No Preferred Language: Tunisian Communication Ability: Effective Grain Thresher Required: No Beliefs That Will Affect Care: None marital status: Current Living Situation: Parent Current Living Situation Comment: father and uncle current occupational status: disabled How many Children do You have: 2 Other Information That Helps Us Care for You: No Feels Safe at Home: Yes Safety Concerns: Feels Safe At This Time Assistive Devices: Brace/Splint/Immobilizer, Hospital Bed, Walker and Wheelchair Physical Exam Physical Exam: Exam obtained with aid of in-person telepresenter. General: Well-appearing, no acute distress HEENT: Conjunctivae non-injected, sclerae anicteric, MMM, OP clear. Resp: Respirations nonlabored. Abd: Soft, nontender, nondistended. Ext: No joint warmth or effusions noted. Skin: Circled regions in LLE previously with erythema erythema has now completely resolved Neuro: Alert & interactive. Grossly non-focal. Psych: Pleasant, appropriate. Results & Data Vital Signs (Past 12 Hours) Vital Signs Temp Pulse Pulse Resp BP Pulse Ox O2 Del Method 09/16/23 14:47 73 09/16/23 11:42 36.7 C 80 16 148/63 H 96 Room Air 09/16/23 07:59 36.8 C 71 16 144/90 H 96 Room Air 09/16/23 07:00 67 09/16/23 03:17 36.8 C 70 20 143/76 H 97 Room Air Diagnostic Findings Diagnostics: 09/14 KUB 1. Nonobstructed abdominal bowel gas pattern. 2. Nephrolithiasis as above. 09/13 LLE duplex There is no sonographic evidence of deep venous thrombosis identified in the left lower extremity. 09/13 CXR No acute abnormalities and in particular no radiographic evidence of pneumonia. Micro Data: 09/15 BCx x2: PEND 09/14 MRSA nares: neg 09/13 UCx: pinpoint growth, reincubating 09/13 BCx x2: GPRs in 2 of 4 bottles, GNRs in 1 of 4 bottles (BCID PCR panel neg) Antibiotic Summary: vancomycin (09/13 present) ceftriaxone (09/13 present) cephalexin (09/14)
--- NOTE | 2023-09-16 16:23 | Billing Data ---
Date of Service September 16, 2023 Coding Level of Care Code 44419 SUB INP/OBS CARE MIN
[2023-09-16] MEDS: tiZANidine HCL 4 MG TABLET PO PRN (21:09)
[2023-09-16 23:47] LABS: Appearance Urine Clear (Clear); Bacteria Urine Automated None Seen (None Seen); Bilirubin Urine Negative (Negative); Blood Urine 3+ (Negative); Cast Urine Automated 0-2 /lpf (0-2); Color Urine Red; Epithelial Cell Urine Auto 0-2 /hpf (0-2); Glucose Urine UA Negative (Negative); Ketones Urine Negative (Negative); Leukocyte Esterase Urine Trace (Negative); Nitrite Urine Negative (Negative); Protein Urine Trace (Negative); RBC Urine Automated >20 /hpf (0-2); Specific Gravity Urine 1.012 (1.000-1.030); Urobilinogen Urine Negative (Negative); WBC Urine Automated 0-5 /hpf (0-5)
[2023-09-17 07:56] LABS: Basophils # (auto) 0.05 K/uL (0.00-0.20); Basophils % (auto) 0.6 %; Eosinophils # (auto) 0.18 K/uL (0.00-0.50); Eosinophils % (auto) 2.2 %; Hematocrit (blood only) 40.8 % (42.0-52.0); Hemoglobin 13.7 g/dl (14.0-18.0); Immature Granulocytes # (auto) 0.04 K/uL (0.01-0.20); Immature Granulocytes % (auto) 0.5 %; Lymphocytes # (auto) 1.12 K/uL (1.20-3.40); Lymphocytes % (auto) 13.7 %; Mean Corpuscular Hemoglobin 31.8 pg (25.0-34.0); Mean Corpuscular Hgb Conc 33.6 g/dL (32.0-36.0); Mean Corpuscular Volume 94.7 fL (80.0-100.0); Mean Platelet Volume 9.5 fL (9.4-12.4); Monocytes # (auto) 0.68 K/uL (0.11-0.59); Monocytes % (auto) 8.3 %; Neutrophils # (auto) 6.11 K/uL (1.40-6.50); Neutrophils % (auto) 74.7 %; Platelet Count 194 K/uL (130-400); RDW Coefficient of Variation 11.6 % (11.5-14.5); RDW Standard Deviation 40.4 fL (36.4-46.3); Red Blood Count 4.31 M/uL (4.70-6.10); White Blood Count 8.18 K/ul (4.8-10.8)
[2023-09-17 08:18] LABS: Anion Gap 8 (3-11); BUN Creatinine Ratio 10.8 (10-20); Blood Urea Nitrogen 11 mg/dl (6-23); C Reactive Protein < 0.50 mg/dl (0-0.5); Calcium 8.4 mg/dl (8.6-10.3); Carbon Dioxide 23 mmol/L (21-32); Chloride 109 mmol/L (98-107); Creatinine Clr Calc Pharmacy 102.2 ml/min; Est GFR (African American) 99.6 ml/min; Est GFR (Non-African American) 85.9 ml/min; Glucose 92 mg/dl (70-99(Fasting)); Potassium 3.7 mmol/L (3.5-5.1); Sodium 140 mmol/L (136-145)
--- NOTE | 2023-09-17 09:07 | CT Scan Report ---
CT abd pelvis wo con CLINICAL HISTORY: Kidney stones TECHNIQUE: Helical axial images of the abdomen and pelvis were obtained. Automated dose lowering tech niques and/or adjustment according to patient size were utilized for this exam. This exam was perfor med without intravenous contrast. CT DOSE: 1498.82 mGy.cm COMPARISON: Comparison is made to CT abdomen pelvis 06/09/2023 FINDINGS: Lower chest: Bibasilar atelectasis versus scarring is seen. Liver: Hepatic steatosis is noted. Gallbladder and biliary tree: Calcified No intra- or extrahepatic biliary ductal dilation. Pancreas: Unremarkable, no focal lesions. Spleen: Splenule is incidentally noted. Adrenals: Unremarkable. Kidneys and ureters: Numerous bilateral renal stones are seen including a large stone in the left kunal al pelvis. No ureteral stones are seen. Bladder: Unremarkable. Reproductive organs: Unremarkable. Bowel: The appendix is normal. A small hiatal hernia is seen. Lymph nodes Retroperitoneal: Unremarkable. Pelvic: Unremarkable. Mesenteric: Unremarkable. Peritoneum: Normal. Vessels: Unremarkable. Abdominal wall: Unremarkable. Bones: Degenerative changes in the visualized spine. IMPRESSION: 1. Multiple renal stones are again seen without evidence of ureteral stone. 2. Nephrolithiasis. 3. Additional findings as above. ACT 112: Negative or not required by law. Electronically signed by: Benigno Munroe M.D. 09/17/2023 9:05 AM
--- NOTE | 2023-09-17 10:16 | Medical Student Progress Note ---
Date of Service September 17, 2023 Assessment & Plan (1) Cellulitis: Plan: Areas of erythema over LLE have resolved. Blood cultures positive for corynebacterium- probably skin contamination. Gram negative bacilli unspeciated at this time. Awaiting results from repeat blood cultures. Patient remains afebrile, WBC count normal, CRP trended into normal range. Status: acute, stable. - Continue Vancomycin as per ID recommendation - Continue Ceftriaxone as per ID recommendation - Continue to follow blood culture and adjust antibiotics as needed. ID consulted. (2) Positive blood cultures: Plan: Blood cultures positive for corynebacterium- probably skin contamination. Gram negative bacilli unspeciated at this time. Awaiting results from repeat blood cultures. Patient remains afebrile, WBC count normal, CRP trended into normal range. Status: acute, controlled. - Continue Vancomycin as per ID recommendation - Continue Ceftriaxone as per ID recommendation - Continue to follow blood culture and adjust antibiotics as needed. ID consulted. (3) Vomiting and diarrhea: Plan: KUB x-ray showed evidence of mild to moderate fecal retention in the colon. Likely patient has overflow diarrhea from chronic constipation. Patient has been passing bowel movements more frequently and his abdominal pain is much improved. Status: acute, stable. - Continue polyethylene glycol - Zofran prn for n/v - Acetaminophen prn for pain control (4) Hematuria: Plan: UA shoed blood 3+, RBC >20/hpf, negative nitrites, and trace leukocyte esterase. KUB x-ray revealed 3.3cm staghorn calculi in L renal pelvis. Patient denies urgency, frequency or dysuria. Status: acute, stable. - CT abdomen (5) Hypercalcemia: Plan: Calcium 11.4 on arrival. Likely secondary to primary hyperparathyroidism. Calcium level has trended down to within normal range. Status: Chronic, stable. - Continue Cinacalcet BID - Follow daily calcium levels (6) Chronic deep vein thrombosis (DVT) of distal vein of left lower extremity: Plan: Patient has a history of DVT. Venous Doppler U/S of LLE was negative for recurrence. Status: Chronic, stable. - Continue Eliquis. (7) History of multiple sclerosis: Plan: Status: chronic, stable. - Continue Tizanidine Plan Disposition: [facility] telemetry Code: Full code Diet: Regular as tolerated DVT Prophylaxis: Eliquis Admission and Anticipated Discharge Date Admission Date: September 14, 2023 Supervising Attestation I personally examined the patient and verified all toribio points of history and exam, discussed case, and agree with decision making with Dr Dayron Gudino and [place] MS4 Has had copious bowel movements. Belly is still rumbling but overall feels better. No other new complaints. Updated on status of blood cultures and working diagnosis. He expresses understanding. Vitals noted, in general he is awake and alert pleasant no distress. HEENT normocephalic atraumatic mucous membranes moist. Breathing unlabored no accessory muscle use good effort. Skin shows no rashes no pallor or icterus. Neuro without focal deficits. Abdominal pain/nausea and vomitinghas improved. Seems to be due to constipation (could have some degree of GI/motility involvement from his MSbut I would initially manage this like constipation anyway)bowel prep has moved his bowels wellmoved to maintenance regimen tomorrow. Continue to follow symptoms. Positive blood culturescorynebacterium gram-positive, gram-negative still awaiting speciation. Continue vancomycin and ceftriaxone. appreciate infectious disease assistance. Anticoagulated otherwise as above Subjective Today patient states he continues to feel better. He states he has been passing bowel movements frequently. His abdominal pain is much improved. Patient notes he is having some pain in his back and L leg this morning. However, he states this pain is "normal" for him. Blood was noted in urine overnight. UA showed blood 3+, RBC >20/hpf, negative nitrites, and trace leukocyte esterase. KUB x-ray revealed 3.3cm staghorn calculi in L renal pelvis. Patient denies urgency, frequency or dysuria. Patient denies fever, chills, CP, palpitations, abdominal pain, n/v, lightheadedness, or dizziness. Review of Systems Review of Systems: As per HPI. Physical Exam Physical Exam: General: Sitting upright in bed. Alert and oriented, in no acute distress. HEENT: PEERL, EOMI, anicteric sclera, no conjunctival injection. Abd: Normal bowel sounds. Abdomen soft and nondistended. No tenderness to palpation. No hepatosplenomegaly. No guarding or rebound. Ext: No joint warmth or effusions noted. Skin: Circled regions in LLE previously with erythema erythema has now completely resolved Neuro: CN II-XII. No focal deficits. Psych: Pleasant, appropriate. Results & Data Vital Signs (Past 12 Hours) Vital Signs Temp Pulse Pulse Resp BP Pulse Ox O2 Del Method 09/17/23 07:34 36.6 C 72 20 147/80 H 98 Room Air 09/17/23 07:26 67 09/17/23 02:54 36.5 C 69 18 128/72 98 Room Air 09/17/23 02:42 61 09/16/23 23:19 36.4 C L 75 18 123/75 96 Room Air Resident Activity Tracking Resident Involvement: Resident Care Provided Care Provided: Adult [facility] Medicine Resident Supervision Co-Signing Physician Notes I also saw the patient and confirmed toribio portions of the history and exam. I agree with the impression and plan in the student documentation, and as summarized below. Patient seem this am. Had an episode of hematuria, no pain, good voiding output. Refers leg and lower back pain that is his usual chronic pain -Bacteremia: gram positive resulted for Corynebacterium spp, gram negative pending speciation and sensitivities. ID following, aprec recommendations. IV antibiotics: Vancomycin and Ceftriaxone. Afebrile, No leukocytosis. Pending repeat of Bcx -Constipation: Golyetely given yesterday, Had good BMs - Nephrolithiasis/hematuria: Patient has hx of hematuria episode due staghorn on kidney. CT Abdomen/Pelvic: no hydronephrosis or stone Multiple renal stones are again seen without evidence of ureteral stone.
--- NOTE | 2023-09-17 13:11 | Pharmacy Report ---
Pharmacy PK ABX Note - Date of Service September 17, 2023 - Assessment and Plan Assessment 09/16: Random vancomycin level this afternoon was ~14.3 mcg/ml - current dosing associated with goal AUC/DOMENIC, therefore will continue current regimen 09/15: Vancomycin discontinued yesterday afternoon, blood cultures returned positive yesterday for gram + bacilli and gram negative bacilli ([employer] ID negative) and vancomycin subsequently restarted. Also on ceftriaxone, likely to cover the gram negative bacilli. Patient is stable and improving. 09/14: 47 year old M receiving ceftriaxone/vancomycin for treatment of cellulitis. Pertinent microbiologic data includes: blood cultures and urine culture pending. Day # 1 of antimicrobial therapy. Plan Vancomycin * Continue vancomycin 1250 mg iv q 12 hours * Prelim repeat blood cultures negative thus far * ID consulted Pharmacy will continue to follow and will adjust dose/frequency as necessary. Thank you. Pharmacy has transitioned to AUC monitoring for vancomycin. AUC/DOMENIC is the prefe rred PK/PD target and is associated with decreased risk of nephrotoxicity compared to traditional trough targets.
--- NOTE | 2023-09-17 13:55 | Infectious Disease Progress Nt ---
Date of Service September 17, 2023 Assessment & Plan (1) Positive blood cultures: (2) Cellulitis of left leg: (3) Skin ulcer of multiple sites of buttock, limited to breakdown of skin: (4) Vomiting and diarrhea: Plan ID Problem List: 1. LLE cellulitis, improving 2. Corynebacterium spp and GNR bacteremia 3. Diarrhea, felt to be 2/2 overflow from constipation, improving on bowel regimen 4. MS Impression: Mazin Ramirez is a 47-year-old man with history of MS, primary hyperparathyroidism, chronic DVT in LLE on Eliquis, and osteoporosis, who presents to [facility] on 09/12 for acute vomiting and diarrhea. Found to have LLE erythema c/f cellulitis, and 09/13 BCx + Corynebacterium spp and GNRs. ID is consulted for bacteremia and cellulitis. The patient began vomiting around 4 pm on 09/12. He also had diarrhea and abdominal discomfort that started around the same time. No fevers, but did report chills. He also noted LLE erythema starting on 09/12. He is normally in a wheelchair for his MS. He reports daily EtOH use (3 beers/day) and uses chewing tobacco. In the ED, BP 96/61 (to 132/74 after IV fluids). WBC 10.36. Cr 1.11. LFTs wnl. CRP 0.93. Procal 0.07. UA with 11-20 WBCs, 11-20 RBCs. In the ED, noted to have LLE erythema and warmth in the posterior leg toward the buttocks. No wounds or purulence noted. He was started on vancomycin and ceftriaxone. LLE duplex negative for DVT. KUB with mild-moderate fecal retention in the colon curren tly pts diarrhea has been attributed to constipation with overflow and pt was started on a bowel regimen. 09/13 BCx later with GPRs and GNRs (BCID negative), awaiting speciation. At the time of evaluation, the patient reports that he feels much better. He is still weaker than baseline otherwise his abdominal discomfort, vomiting, and diarrhea have resolved. He denies any hardware/implants/cardiac devices. His LLE erythema has nearly completely resolved. Discussion Patient presenting with GI symptoms and LLE erythema. GI symptoms have been attributed to constipation (KUB with fecal retention) and haves resolved while on a bowel regimen. LLE erythema and warmth felt to be c/w cellulitis, and has nearly completely resolved as of 09/15 while on abx. MRSA nares neg. Patient also found to have Corynebacterium spp and GNR bacteremia on initial 09/13 BCx. BCID negative. Corynebacterium may be from skin contamination. GNR of unclear source or clinical significance at this time, possibly GI translocation in the setting of fecal retention awaiting speciation. Has shallow sacral pressure ulcers with skin flaking though this seems less likely the source. Repeat BCx (ordered on 09/15) to confirm clearance, thus far NGTD. The patient has been afebrile and with normal WBC count, and his cellulitis has nearly completely resolved on abx. Has improved on vancomycin and ceftriaxone and thus can continue for now. If clinical worsening, can broaden from ceftriaxone to cefepime. Recommendations: - Continue vancomycin (dosing per Rx) and ceftriaxone 2g IV q24h for now - If clinical worsening, can broaden from ceftriaxone to cefepime - F/u 09/15 BCx until finalized to confirm clearance - F/u 09/13 BCx speciation of GNRs ID will continue to follow. Marianna Holm MD, MHS Infectious Diseases [facility]/ID Connect ID Connect direct line: [phone] Admission and Anticipated Discharge Date Admission Date: September 14, 2023 Subjective This patient recommendation is based on a telemedicine consult request which was completed asynchronously through chart review and information provided by the primary physician. The patient was not seen or examined today. The evaluation is consultative in nature and all patient care and treatment decisions can either be accepted or rejected by the patient's primary hospital-based treating physician using their own independent medical judgment for their patient. Time Spent Reviewing Chart: 21 - 30 minutes - Remains afebrile, WBC 8.18 - 09/13 BCx speciated to Corynebacterium spp, GNR speciation still pending (likely tomorrow per micro) Results & Data Vital Signs (Past 12 Hours) Vital Signs Temp Pulse Pulse Resp BP Pulse Ox O2 Del Method 09/17/23 12:13 36.7 C 75 18 121/72 94 Room Air 09/17/23 07:34 36.6 C 72 20 147/80 H 98 Room Air 09/17/23 07:26 67 09/17/23 02:54 36.5 C 69 18 128/72 98 Room Air 09/17/23 02:42 61 Diagnostic Findings Diagnostics: 09/14 KUB 1. Nonobstructed abdominal bowel gas pattern. 2. Nephrolithiasis as above. 09/13 LLE duplex There is no sonographic evidence of deep venous thrombosis identified in the left lower extremity. 09/13 CXR No acute abnormalities and in particular no radiographic evidence of pneumonia. Micro Data: 09/15 BCx x2: NGTD 09/14 MRSA nares: neg 09/13 UCx: pinpoint growth, reincubating 09/13 BCx x2: Corynebacterium spp in 2 of 4 bottles, GNRs in 1 of 4 bottles (BCID PCR panel neg) Antibiotic Summary: vancomycin (09/13 present) ceftriaxone (09/13 present) cephalexin (09/14)
[2023-09-17] MEDS: VANCOMYCIN LEVEL ONE (14:52)
--- NOTE | 2023-09-17 18:50 | Billing Data ---
Date of Service September 17, 2023 Coding Level of Care Code 50547 SUB INP/OBS CARE MIN
--- NOTE | 2023-09-18 14:07 | Infectious Disease Progress Nt ---
Date of Service September 18, 2023 Assessment & Plan (1) Positive blood cultures: (2) Cellulitis of left leg: (3) Skin ulcer of multiple sites of buttock, limited to breakdown of skin: (4) Vomiting and diarrhea: Plan ID Problem List: 1. LLE cellulitis, improving 2. Corynebacterium spp and GNR bacteremia 3. Diarrhea, felt to be 2/2 overflow from constipation, improving on bowel regimen 4. MS Impression: Mazin Ramirez is a 47-year-old man with history of MS, primary hyperparathyroidism, chronic DVT in LLE on Eliquis, and osteoporosis, who presents to [facility] on 09/12 for acute vomiting and diarrhea. Found to have LLE erythema c/f cellulitis, and 09/13 BCx + Corynebacterium spp and GNRs. ID is consulted for bacteremia and cellulitis. The patient began vomiting around 4 pm on 09/12. He also had diarrhea and abdominal discomfort that started around the same time. No fevers, but did report chills. He also noted LLE erythema starting on 09/12. He is normally in a wheelchair for his MS. He reports daily EtOH use (3 beers/day) and uses chewing tobacco. In the ED, BP 96/61 (to 132/74 after IV fluids). WBC 10.36. Cr 1.11. LFTs wnl. CRP 0.93. Procal 0.07. UA with 11-20 WBCs, 11-20 RBCs. In the ED, noted to have LLE erythema and warmth in the posterior leg toward the buttocks. No wounds or purulence noted. He was started on vancomycin and ceftriaxone. LLE duplex negative for DVT. KUB with mild-moderate fecal retention in the colon currently pts diarrhea has been attributed to constipation with overflow and pt was started on a bowel regimen. 09/13 BCx later with GPRs and GNRs (BCID negative), awaiting speciation. At the time of evaluation, the patient reports that he feels much better. He is still weaker than baseline otherwise his abdominal discomfort, vomiting, and diarrhea have resolved. He denies any hardware/implants/cardiac devices. His LLE erythema has nearly completely resolved. Discussion Patient presenting with GI symptoms and LLE erythema. GI symptoms have been attributed to constipation (KUB with fecal retention) and have resolved while on a bowel regimen. LLE erythema and warmth felt to be c/w cellulitis, and has nearly completely resolved as of 09/15 while on abx. MRSA nares neg. Patient also found to have Corynebacterium spp and GNR bacteremia on initial 09/13 BCx. BCID negative. Corynebacterium may be from skin contamination. GNR of unclear source and uncertain clinical significance at this time, possibly GI translocation in the setting of fecal retention awaiting speciation. Has shallow sacral pressure ulcers with skin flaking though this seems less likely t he source. Repeat BCx (ordered on 09/15) to confirm clearance, thus far NGTD which is reassuring against persistent/deep-seated source. The patient has been afebrile and with normal WBC count, and his cellulitis has nearly completely resolved on abx. The GNRs will be sent out to [place] for identification, and therefore likely pending for several more days and will be pending at time of discharge. Please ensure results are followed by PCP evaluate clinical significance pending organism ID, and ensure abx are changed if needed. Can stop vancomycin. Can continue ceftriaxone while inpatient. Upon discharge, out of caution, can transition to cefpodoxime 400 mg PO BID to complete a 14-day course (or abx to be changed pending speciation/susceptibilities of GNR, as above). Recommendations: - Can stop vancomycin - Continue ceftriaxone 2g IV q24h while inpatient - Upon discharge, can change to cefpodoxime 400 mg PO BID to complete a 14-day total course (09/1309/27/23, or abx to be changed pending speciation/susceptibilities of GNR). - F/u 09/15 BCx until finalized to confirm clearance - F/u 09/13 BCx speciation of GNRs - send-out to [place], and therefore likely pending for several more days and will be pending at time of discharge. Please ensure results are followed by PCP evaluate clinical significance pending organism ID, and ensure abx are changed if needed. - Ensure close follow-up with primary care Plan discussed with Dr. Anderson and Dr. Dayron Gudino Thank you for letting ID participate in the care of this patient. ID will sign off at this time. If questions, please contact the [facility] call center at [phone]. Marianna Holm MD, MHS Infectious Diseases [facility]/ID Connect ID Connect direct line: [phone] Admission and Anticipated Discharge Date Admission Date: September 14, 2023 Subjective This patient recommendation is based on a telemedicine consult request which was completed asynchronously through chart review and information provided by the primary physician. The patient was not seen or examined today. The evaluation is consultative in nature and all patient care and treatment decisions can either be accepted or rejected by the patient's primary hospital-based treating physician using their own independent medical judgment for their patient. Time Spent Reviewing Chart: 31+ minutes - Limited EMR access and limited access to new labs/vitals today due to [employer] downtime. Discussed with Dr. Anderson and Dr. Dayron Gudino - Pts GNR from 09/13 will be a send-out to [place], and therefore likely pending for several more days and will be pending at time of discharge - Patient to discharge today Results & Data Diagnostic Findings Diagnostics: 09/14 KUB 1. Nonobstructed abdominal bowel gas pattern. 2. Nephrolithiasis as above. 09/13 LLE duplex There is no sonographic evidence of deep venous thrombosis identified in the lef t lower extremity. 09/13 CXR No acute abnormalities and in particular no radiographic evidence of pneumonia. Micro Data: 09/15 BCx x2: NGTD 09/14 MRSA nares: neg 09/13 UCx: mixed organisms, moderate counts, probable mixed skin monika 09/13 BCx x2: Corynebacterium spp in 2 of 4 bottles, GNRs in 1 of 4 bottles (BCID PCR panel neg) per Dr. Dayron Gudino on 09/17, the GNRs will be sent out to [place] for identification, PENDING at this time Antibiotic Summary: vancomycin (09/13 present) ceftriaxone (09/13 present) cephalexin (09/14)
--- NOTE | 2023-09-18 18:46 | Billing Data ---
Date of Service September 18, 2023 Coding Level of Care Code 10264 IN/OBS DISCH 30 MIN/LESS
== END 2023-09-18 20:13 | disposition home or self-care (01) | DRG 603 ==
LOC: ED 10:42 → 2W 13:25 → SUATTDRO 13:25 → 2W 17:53

== ENCOUNTER 2024-03-29 12:25 | Observation (INO) ==
--- NOTE | 2024-03-29 12:54 | Emergency Department Note ---
Impression & Plan Hypophosphatemia, Paraplegia, unspecified, Coronavirus infection, unspecified, Acute viral syndrome ED Provider Note NAME: JAD DICKINSON AGE: 48 SEX: M : 1975 ARRIVES VIA: Ambulance INFORMANT: Patient ED PROVIDER(S): Miguel Watson MD CHIEF COMPLAINT: Cough, nausea, bodyaches PLAN: Disposition: Admit MEDICAL DECISION MAKING: The patient is a pleasant 48-year-old gentleman with a past medical history of MS who is nonambulatory, primary hyperparathyroidism, chronic DVT in LLE on Eliquis, and osteoporosis who presents to the emergency department via EMS for worsening generalized weakness, lightheadedness since last night where he is felt feverishness and chills. He reports cough and congestion. He reports nausea but denies vomiting. He denies diarrhea. He has had poor oral intake. He denies chest pain or shortness of breath. On evaluation the patient is acute on chronically ill-appearing but in no acute distress, afebrile heart in the 100s and blood pressure 150s/90s and vital signs otherwise stable. He appears clinically dry. He has boggy nasal turbinates. Lungs are clear. Abdomen is nontender. EKG without overt acute ischemia. CXR with suspected 1 cm right midlung nodular density that is suspected to be artifactual though infection cannot appear similar. WBC and platelets within normal limits. H/H 17.5/50.1 consistent with the patient's clinically dry appearance. Chemistry without metabolic acidosis. Patient's phosphorus is notably low at 1.2 with IV repletion initiated. LFTs are unremarkable. CPK is not elevated. High-sensitivity troponin is 2.6, within normal limits. Lipase is normal. Procalcitonin is not elevated. Respiratory BioFire was positive for coronavirus NL63. Patient was treated with IV fluid hydration, IV APAP, famotidine, Zofran in addition to potassium phosphate repletion. The patient reported continued to feel unwell and requested admission to the hospital given his MS. Case was discussed with YEVGENIY Madrigal PAC, with YEVGENIY Chau hospitalist who will evaluate the patient for admission. Further management per admitting team. Triage Nursing notes reviewed and agree them. Prior/external medical records reviewed Vital Signs: reviewed Differential diagnosis: Infection, dehydration, metabolic abnormality, hypo/hyperglycemia, electrolyte disturbance, anemia, hypoxia, cardiac sources, intracerebral event, toxicologic, neurologic, as well as other pathologies. ER treatment provided: See below. Diagnostics interpreted by me: ECG: Normal sinus rhythm, 96 bpm, no ectopy, no overt ST elevation or depression, QTc 434, QRS 88. Cardiac Monitoring: An order for continuous cardiac monitoring was placed and demonstrated normal sinus rhythm, 96 bpm, no ectopy. Laboratory studies: See below Imaging studies: See below Consultation(s): Case was discussed with YEVGENIY Madrigal PAC, with YEVGENIY Chau hospitalist who will evaluate the patient for admission. HPI: The patient is a pleasant 48-year-old gentleman with a past medical history of MS who is nonambulatory, primary hyperparathyroidism, chronic DVT in LLE on Eliquis, and osteoporosis who presents to the emergency department via EMS for worsening generalized weakness, lightheadedness since last night where he is felt feverishness and chills. He reports cough and congestion. He reports nausea but denies vomiting. He denies diarrhea. He has had poor oral intake. He denies chest pain or shortness of breath. ROS: See above HPI for pertinent positives & negatives. A total of 10 systems reviewed and were otherwise negative. VITALS:See Below PHYSICAL EXAMINATION: GENERAL: Awake, alert, acute on chronically ill-appearing, in no distress HENT: Normocephalic, atraumatic. Boggy nasal turbinates. Oropharynx with dry mucous membranes and otherwise unremarkable. EYES: Normal conjunctiva. Sclera non-icteric. NECK: Supple. No nuchal rigidity. FROM. No JVD. RESPIRATORY: Clear to auscultation. CARDIAC: Tachycardic rate, normal rhythm. Extremities warm and well perfused. Pulses equal. ABDOMEN: Soft, non-distended. No tenderness to palpation. No rebound or guarding. No masses. MUSCULOSKELETAL: Chest examination reveals no tenderness. The back is symmetrical on inspection without obvious abnormality. There is no CVA tenderness to palpation. No joint edema. LOWER EXTREMITIES: Calves are equal size bilaterally and non-tender. Chronic 1+ BLE edema. No discoloration. NEURO: Baseline paraplegia for MS. SKIN: No rash or jaundice noted. Miguel Watson MD Past Med/Surg History Problem List Acute viral syndrome (Acute) Coronavirus infection, unspecified (Acute) Primary hyperparathyroidism Coronavirus infection Hematuria (Acute) Positive blood cultures Vomiting (Acute) Skin ulcer of multiple sites of buttock, limited to breakdown of skin (Acute) Cellulitis of left leg (Acute) Acute hypotension (Acute) Pressure ulcer, stage 1 Hyperparathyroidism Chronic deep vein thrombosis (DVT) of distal vein of left lower extremity Diffuse abdominal pain (Acute) Vomiting and diarrhea (Acute) Elevated lactic acid level (Acute) Leukocytosis (Acute) Acute dehydration (Acute) Sinus pause Elevated lactic acid level (Acute) Leukocytosis (Acute) Nausea & vomiting (Acute) Abdominal pain, RUQ (Acute) Paraplegia, unspecified (Acute) Sepsis Onychomycosis Cellulitis History of multiple sclerosis (Acute) Fecal incontinence (Acute) Anemia Hypophosphatemia (Acute) Right ankle strain Osteoporosis Low vitamin D level CKD (chronic kidney disease) Unable to care for self (Acute) Lab test negative for COVID-19 virus (Acute) Current use of [facility] anticoagulation (Acute) Hematuria (Acute) Hypercalcemia Generalized weakness (Acute) Hypokalemia (Acute) Demyelinating disease Acute kidney injury Ambulatory dysfunction DVT (deep venous thrombosis) (Acute) H/O poor personal hygiene Muscle spasm of left lower extremity (Acute) Stool incontinence (Acute) Hypophosphatemia (Acute) Serum calcium elevated (Acute) Generalized weakness (Acute) Medical History Vitamin B12 deficiency Gallstones UTI (urinary tract infection) Staghorn calculus Hypercalcemia Left leg pain Weakness Multiple sclerosis exacerbation Obstructive uropathy 2/2 renal stone, caused RUBI, pt admitted for this and hypercalcemia 05/2018 Hypercalcemia Chronic pain syndrome Seizure disorder Many years ago may have had single episode, pt was never treated for this, no reoccurrence. 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: No Beliefs That Will Affect Care: None marital status: Current Living Situation: Parent Current Living Situation Comment: father and uncle current occupational status: disabled How many Children do You have: 2 Feels Safe at Home: Yes Assistive Devices: Brace/Splint/Immobilizer, Hospital Bed, Walker and Wheelchair Allergies Allergies Allergy/AdvReac Type Severity Reaction Status Date / Time aspirin Allergy Severe airway Verified 03/29/24 16:58 edema; hives Home Meds Home Medications Medication Instructions Recorded Confirmed apixaban 5 mg tablet (Eliquis) 5 mg PO BID 03/04/23 03/29/24 fluoxetine 20 mg capsule 20 mg PO HS 03/04/23 03/29/24 acetaminophen 500 mg tablet 1,000 mg PO Q6H PRN PAIN/FEVER 05/26/23 03/29/24 (Tylenol Extra Strength) Previous Rx's Medication Instructions Recorded gabapentin 100 mg capsule 100 mg PO TID #90 caps 05/31/23 Results & Data (ED) Vital Signs Vital Signs - 24 hr 03/29/24 12:40 03/29/24 12:51 03/29/24 12:51 Temperature 37.5 C Temperature Source Oral Pulse Rate 100 H 99 H 100 H Pulse Rate [Apical] Pulse Rate from SpO2 Sensor Pulse Strength [Apical] Respiratory Rate 15 20 Respiratory Effort / Characteristics Non-Labored Spontaneous Respiratory Depth Normal Respiratory Pattern Regular Blood Pressure 159/99 H Blood Pressure [Right Arm] Blood Pressure Mean 119 Blood Pressure Mean [Right Arm] Pulse Oximetry 95 96 Oxygen Delivery Method Room Air Room Air Sepsis Recent Fever Within 48 Hours No Sepsis New/Unexplained Change in Mental Status N/A Sepsis Action Taken by Nursing No Action Required 03/29/24 13:00 03/29/24 13:15 03/29/24 13:30 Temperature Temperature Source Pulse Rate 91 H 104 H 89 Pulse Rate [Apical] Pulse Rate from SpO2 Sensor 90 Pulse Strength [Apical] Respiratory Rate 19 15 19 Respiratory Effort / Characteristics Respiratory Depth Respiratory Pattern Blood Pressure 153/94 H 151/86 H Blood Pressure [Right Arm] Blood Pressure Mean 113 107 Blood Pressure Mean [Right Arm] Pulse Oximetry 95 96 Oxygen Delivery Method Room Air Room Air Sepsis Recent Fever Within 48 Hours Sepsis New/Unexplained Change in Mental Status Sepsis Action Taken by Nursing 03/29/24 13:51 03/29/24 14:20 03/29/24 14:21 Temperature Temperature Source Pulse Rate 90 105 H Pulse Rate [Apical] Pulse Rate from SpO2 Sensor Pulse Strength [Apical] Respiratory Rate 19 22 Respiratory Effort / Characteristics Respiratory Depth Respiratory Pattern Blood Pressure 144/89 H Blood Pressure [Right Arm] Blood Pressure Mean 117 Blood Pressure Mean [Right Arm] Pulse Oximetry 97 Oxygen Delivery Method Room Air Sepsis Recent Fever Within 48 Hours Sepsis New/Unexplained Change in Mental Status Sepsis Action Taken by Nursing 03/29/24 14:30 03/29/24 14:33 03/29/24 15:00 Temperature Temperature Source Pulse Rate 101 H 96 H Pulse Rate [Apical] Pulse Rate from SpO2 Sensor Pulse Strength [Apical] Respiratory Rate 17 21 Respiratory Effort / Characteristics Respiratory Depth Respiratory Pattern Blood Pressure 143/86 H Blood Pressure [Right Arm] Blood Pressure Mean 101 Blood Pressure Mean [Right Arm] Pulse Oximetry Oxygen Delivery Method Sepsis Recent Fever Within 48 Hours Sepsis New/Unexplained Change in Mental Status Sepsis Action Taken by Nursing 03/29/24 15:12 03/29/24 15:36 03/29/24 16:00 Temperature Temperature Source Pulse Rate 93 H 98 H Pulse Rate [Apical] Pulse Rate from SpO2 Sensor Pulse Strength [Apical] Respiratory Rate 20 18 Respiratory Effort / Characteristics Respiratory Depth Respiratory Pattern Blood Pressure 139/80 Blood Pressure [Right Arm] Blood Pressure Mean 89 Blood Pressure Mean [Right Arm] Pulse Oximetry Oxygen Delivery Method Sepsis Recent Fever Within 48 Hours Sepsis New/Unexplained Change in Mental Status Sepsis Action Taken by Nursing 03/29/24 16:03 03/29/24 16:10 03/29/24 16:57 Temperature Temperature Source Pulse Rate 93 H 110 H Pulse Rate [Apical] 90 Pulse Rate from SpO2 Sensor Pulse Strength [Apical] Normal Respiratory Rate 18 19 Respiratory Effort / Characteristics Non-Labored Spontaneous Respiratory Depth Normal Respiratory Pattern Regular Blood Pressure Blood Pressure [Right Arm] 139/80 Blood Pressure Mean Blood Pressure Mean [Right Arm] 99 Pulse Oximetry 92 93 Oxygen Delivery Method Room Air Room Air Sepsis Recent Fever Within 48 Hours Sepsis New/Unexplained Change in Mental Status Sepsis Action Taken by Nursing 03/29/24 17:00 03/29/24 17:12 03/29/24 17:15 Temperature Temperature Source Pulse Rate 96 H 99 H 94 H Pulse Rate [Apical] Pulse Rate from SpO2 Sensor 98 H 100 H Pulse Strength [Apical] Respiratory Rate 21 23 19 Respiratory Effort / Characteristics Respiratory Depth Respiratory Pattern Blood Pressure Blood Pressure [Right Arm] Blood Pressure Mean Blood Pressure Mean [Right Arm] Pulse Oximetry 95 95 95 Oxygen Delivery Method Room Air Room Air Room Air Sepsis Recent Fever Within 48 Hours Sepsis New/Unexplained Change in Mental Status Sepsis Action Taken by Nursing 03/29/24 17:18 03/29/24 17:21 03/29/24 17:30 Temperature Temperature Source Pulse Rate 93 H Pulse Rate [Apical] Pulse Rate from SpO2 Sensor Pulse Strength [Apical] Respiratory Rate 18 Respiratory Effort / Characteristics Respiratory Depth Respiratory Pattern Blood Pressure 148/101 H 135/93 Blood Pressure [Right Arm] Blood Pressure Mean 108 102 Blood Pressure Mean [Right Arm] Pulse Oximetry Oxygen Delivery Method Sepsis Recent Fever Within 48 Hours Sepsis New/Unexplained Change in Mental Status Sepsis Action Taken by Nursing Laboratory Data Attestation: I reviewed the patient's lab results. 03/29/24 12:45 03/29/24 12:45 Lab Results 03/29/24 03/29/24 03/29/24 Range/Units 12:45 13:09 13:14 WBC 9.61 (4.8-10.8) K/ul RBC 5.32 (4.70-6.10) M/uL Hgb 17.5 (14.0-18.0) g/dl POC Hgb 16.7 (14.0-18.0) g/dl Hct 50.1 (42.0-52.0) % POC Hct 49 (42-52) % MCV 94.2 (80.0-100.0) fL MCH 32.9 (25.0-34.0) pg MCHC 34.9 (32.0-36.0) g/dL RDW Std Deviation 42.2 (36.4-46.3) fL RDW Coeff of Bret 12.2 (11.5-14.5) % Plt Count 213 (130-400) K/uL MPV 9.9 (9.4-12.4) fL Immature Gran % (Auto) 0.4 % Neut % (Auto) 86.4 % Lymph % (Auto) 5.2 % [place] % (Auto) 7.1 % Eos % (Auto) 0.5 % Baso % (Auto) 0.4 % Neut # (Auto) 8.30 H (1.40-6.50) K/uL Lymph # (Auto) 0.50 L (1.20-3.40) K/uL [place] # (Auto) 0.68 H (0.11-0.59) K/uL Eos # (Auto) 0.05 (0.00-0.50) K/uL Baso # (Auto) 0.04 (0.00-0.20) K/uL Immature Gran # (Auto) 0.04 (0.01-0.20) K/uL PT 10.0 (9.0-12.0) Seconds INR 0.9 (0.9-1.1) POC Sodium 139 (135-144) mmol/L Sodium 138 (136-145) mmol/L POC Potassium 4.2 (3.3-5.0) mmol/L Potassium 4.0 (3.5-5.1) mmol/L POC Chloride 107 (101-112) mmol/L Chloride 107 (98-107) mmol/L Carbon Dioxide 23 (21-32) mmol/L POC Total CO2 22 L (24-31) mmol/L Anion Gap 8 (3-11) POC Anion Gap 14.0 L (16-25) mmol/L POC BUN 9 (7-18) mg/dl BUN 9 (6-23) mg/dl Creatinine 1.21 (0.6-1.4) mg/dl POC Creatinine 1.2 (0.6-1.3) mg/dl Est Cr Clr Drug Dosing 92.1 ml/min eGFR 72.94 BUN/Creatinine Ratio 7.4 L (10-20) Glucose 112 H (70-99(Fasting)) mg/dl POC Glucose (other) 104 H (70-99) mg/dl Calcium 10.9 H (8.6-10.3) mg/dl POC Ioniz Calcium Camille 1.36 H (1.12-1.32) mmol/l Phosphorus 1.2 L* (2.5-4.9) mg/dl Magnesium 2.0 (1.7-2.4) mg/dl Total Bilirubin 0.6 (0.2-1.0) mg/dl AST 28 (13-39) U/L ALT 51 (7-52) U/L Alkaline Phosphatase 69 (34-104) U/L Total Creatine Kinase 27 L (30-223) U/L Troponin I High Sens 2.6 (0-20) pg/ml Total Protein 7.2 (6.0-8.3) gm/dl Albumin 4.3 (3.4-5.0) gm/dl Globulin 2.9 (2.5-4.0) gm/dl Albumin/Globulin Ratio 1.5 (0.9-2) Lipase 46 (11-82) U/L Procalcitonin 0.07 (0-0.5) ng/ml Adenovirus (PCR) Not Detected (NotDetected) B. pertussis DNA (PCR) Not Detected (NotDetected) B.parapertussis DNA PCR Not Detected (NotDetected) C. pneumoniae DNA (PCR) Not Detected (NotDetected) Coronavirus OC43 (PCR) Not Detected (NotDetected) Coronavirus HKU1 (PCR) Not Detected (NotDetected) Coronavirus 229E (PCR) Not Detected (NotDetected) SARS-CoV-2 (PCR) Not Detected (NotDetected) Coronavirus NL63 (PCR) DETECTED A (NotDetected) Human Metapneumovir PCR Not Detected (NotDetected) Influenza Type A (PCR) Not Detected (NotDetected) Influenza Type B (PCR) Not Detected (NotDetected) M. pneumoniae (PCR) Not Detected (NotDetected) Parainfluenza 1 (PCR) Not Detected (NotDetected) Parainfluenza 2 (PCR) Not Detected (NotDetected) Parainfluenza 3 (PCR) Not Detected (NotDetected) Parainfluenza 4 (PCR) Not Detected (NotDetected) RSV (PCR) Not Detected (NotDetected) Entero/Rhino (PCR) Not Detected (NotDetected) Administered Medications Apixaban (Apixaban 5 Mg Tablet) 5 mg PO BID [facility] Stop: 04/28/24 20:59 Last Admin: 03/29/24 21:56 Dose: 5 mg Documented By: DN Cinacalcet (Cinacalcet Hcl 30 Mg Tab) 30 mg PO BID [facility] Stop: 04/28/24 20:59 Last Admin: 03/29/24 21:56 Dose: 30 mg Documented By: MAXIMILIANO Fluoxetine HCl (Fluoxetine Hcl 20 Mg Cap) 20 mg PO HS MANJINDER Stop: 04/28/24 20:59 Last Admin: 03/29/24 21:56 Dose: 20 mg Documented By: MAXIMILIANO Gabapentin (Gabapentin 100 Mg Cap) 100 mg PO TID MANJINDER Stop: 04/28/24 20:59 Last Admin: 03/29/24 21:55 Dose: Not Given Documented By: MAXIMILIANO Sodium Chloride (Nss) 1,000 mls @ 80 mls/hr IV .[id number] MANJINDER Stop: 03/30/24 06:14 Last Admin: 03/29/24 18:26 Dose: 80 mls/hr Documented By: ALY Discontinued Medications Gabapentin (Gabapentin 100 Mg Cap) 100 mg PO ONE STA Stop: 03/29/24 19:51 Last Admin: 03/29/24 21:56 Dose: 100 mg Documented By: MAXIMILIANO Guaifenesin (Guaifenesin 600 Mg Tabcr) 600 mg PO NOW STA Stop: 03/29/24 17:57 Last Admin: 03/29/24 18:25 Dose: 600 mg Documented By: ALY Sodium Chloride (Nss) 1,000 mls @ 999 mls/hr IV .Q1H1M ONE Stop: 03/29/24 13:57 Last Infusion: 03/29/24 14:20 Dose: Infused Documented By: [facility] Admin: 03/29/24 13:19 Dose: 999 mls/hr Documented By: ALY Sodium Chloride (Nss) 1,000 mls @ 999 mls/hr IV .Q1H1M ONE Stop: 03/29/24 14:51 Last Infusion: 03/29/24 17:20 Dose: Infused Documented By: [facility] Admin: 03/29/24 14:13 Dose: 999 mls/hr Documented By: ALY Acetaminophen (Ofirmev) 1,000 mg in 100 mls @ 400 mls/hr IV NOW STA Stop: 03/29/24 14:05 Last Infusion: 03/29/24 14:52 Dose: Infused Documented By: [facility] Admin: 03/29/24 14:13 Dose: 400 mls/hr Documented By: ALY Famotidine (Pepcid 20mg Iv Push) 20 mg in 5 mls @ 2.5 mls/min IV NOW STA Stop: 03/29/24 13:52 Last Admin: 03/29/24 14:08 Dose: 2.5 mls/min Documented By: ALY Potassium Phosphate 9 mmol/ (Sodium Chloride) 253 mls @ 126.5 mls/hr IV ONE ONE Stop: 03/29/24 16:29 Last Infusion: 03/29/24 17:19 Dose: Infused Documented By: Admin: 03/29/24 15:08 Dose: 126.5 mls/hr Documented By: ALY Ketorolac Tromethamine (Ketorolac Tromethamine 15 Mg/Ml Vial) 15 mg IV NOW ONE Stop: 03/29/24 19:53 Last Admin: 03/29/24 20:04 Dose: 15 mg Documented By: KENDALL Ondansetron HCl (Ondansetron Inj 2 Mg/Ml 2 Ml Vial) 4 mg IV NOW STA Stop: 03/29/24 13:52 Last Admin: 03/29/24 14:08 Dose: 4 mg Documented By: ALY Potassium Phosphate (Potassium Phos 3 Mmol/1 Ml Infusion) 9 mmol IV NOW STA Stop: 03/29/24 14:05 Last Admin: 03/29/24 14:52 Dose: Not Given Documented By: ALY Imaging Data Radiologist's Impression: Chest X-Ray 03/29/24 12:56 XR chest 1V portable CLINICAL HISTORY: Chest pain, nonspecific COMPARISON STUDY: Chest radiograph September 14, 2023. FINDINGS: Lung volumes are normal. No consolidation is identified. 1 cm right midlung nodular density is present. There is no pneumothorax or pleural effusion. Cardiac size is normal. Mediastinal contours are normal. There is no evidence for pulmonary edema. IMPRESSION: 1. No definite acute cardiopulmonary findings. 2. 1 cm right midlung nodular density. This is likely artifactual. However, a mild infectious process or a pulmonary nodule cannot be excluded. PA and lateral chest radiographs are recommended for further evaluation. ACT 112: Negative or not required by law. Electronically signed by: Vinh Varela M.D. 03/29/2024 1:22 PM Chest X-Ray 03/29/24 17:19 Exam(s): XR CXR 2 VIEWS EXAM: XR Chest, 2 Views CLINICAL HISTORY: Reason for exam: 1cm right midlung nodular density. TECHNIQUE: Frontal and lateral views of the chest. COMPARISON: Chest radiograph On 03/29/2024 FINDINGS: Hardware: None. Lungs/pleura: Normal. No focal consolidation. No pleural effusion or pneumothorax. Heart/mediastinum: Normal. No cardiomegaly. Soft tissues: Unremarkable. Bones: No acute fracture. Upper abdomen: Normal. IMPRESSION: No acute disease identified. No nodular density seen. Electronically signed by: Natalya De La Vega M.D. 03/29/24 19:38 PM Discharge Plan Visit Data Chief Complaint: Weakness ED Provider: Miguel Watson Discharge Problem: Hypophosphatemia, Paraplegia, unspecified, Coronavirus infection, unspecified, Acute viral syndrome Patient Disposition: Admitted As Inpatient Discharge Instructions Interventions: ED Discharge Assessment Last Done: 03/29/24 19:55
[2024-03-29] MEDS: SODIUM CHLORIDE 0.9% 1,000 ML IV ONE ×2 (13:19→14:13)
--- NOTE | 2024-03-29 13:23 | XRay Report ---
XR chest 1V portable CLINICAL HISTORY: Chest pain, nonspecific COMPARISON STUDY: Chest radiograph September 14, 2023. FINDINGS: Lung volumes are normal. No consolidation is identified. 1 cm right midlung nodular density is present. There is no pneumothorax or pleural effusion. Cardiac size is normal. Mediastinal contou rs are normal. There is no evidence for pulmonary edema. IMPRESSION: 1. No definite acute cardiopulmonary findings. 2. 1 cm right midlung nodular density. This is likely artifactual. However, a mild infectious process or a pulmonary nodule cannot be excluded. PA and lateral chest radiographs are recommended for [facility] er evaluation. ACT 112: Negative or not required by law. Electronically signed by: Vinh Varela M.D. 03/29/2024 1:22 PM
[2024-03-29 13:25] LABS: iSTAT Creatinine 1.2 mg/dl (0.6-1.3); iSTAT Hemoglobin 16.7 g/dl (14.0-18.0); iSTAT Ionized Calcium 1.36 mmol/l (1.12-1.32); iSTAT Potassium 4.2 mmol/L (3.3-5.0)
[2024-03-29 13:35] LABS: Basophils # (auto) 0.04 K/uL (0.00-0.20); Basophils % (auto) 0.4 %; Eosinophils # (auto) 0.05 K/uL (0.00-0.50); Eosinophils % (auto) 0.5 %; Hematocrit (blood only) 50.1 % (42.0-52.0); Hemoglobin 17.5 g/dl (14.0-18.0); Immature Granulocytes # (auto) 0.04 K/uL (0.01-0.20); Immature Granulocytes % (auto) 0.4 %; Lymphocytes % (auto) 5.2 %; Mean Corpuscular Hemoglobin 32.9 pg (25.0-34.0); Mean Corpuscular Hgb Conc 34.9 g/dL (32.0-36.0); Mean Corpuscular Volume 94.2 fL (80.0-100.0); Mean Platelet Volume 9.9 fL (9.4-12.4); Monocytes # (auto) 0.68 K/uL (0.11-0.59); Monocytes % (auto) 7.1 %; Neutrophils % (auto) 86.4 %; Platelet Count 213 K/uL (130-400); RDW Coefficient of Variation 12.2 % (11.5-14.5); RDW Standard Deviation 42.2 fL (36.4-46.3); Red Blood Count 5.32 M/uL (4.70-6.10); White Blood Count 9.61 K/ul (4.8-10.8)
[2024-03-29 13:47] LABS: BUN Creatinine Ratio 7.4 (10-20); Calcium 10.9 mg/dl (8.6-10.3); Creatinine Clr Calc Pharmacy 92.1 ml/min
[2024-03-29 13:53] LABS: Troponin I High Sensitivity 2.6 pg/ml (0-20)
[2024-03-29 13:54] LABS: Albumin Globulin Ratio 1.5 (0.9-2); Albumin Level 4.3 gm/dl (3.4-5.0); Bilirubin,Total 0.6 mg/dl (0.2-1.0); Globulin 2.9 gm/dl (2.5-4.0); Phosphorus 1.2 mg/dl (2.5-4.9); Total Protein 7.2 gm/dl (6.0-8.3)
[2024-03-29 13:56] LABS: INR 0.9 (0.9-1.1)
[2024-03-29] MEDS: ONDANSETRON INJ 2 MG/ML 2 ML VIAL IV STA (14:08)
[2024-03-29] MEDS: FAMOTIDINE 20MG IV PUSH 20 MG/5 ML SYR IV STA (14:08)
[2024-03-29 14:10] LABS: Adenovirus PCR Not Detected (NotDetected); Bordetella parapertussis PCR Not Detected (NotDetected); Bordetella pertussis PCR Not Detected (NotDetected); Chlamydia pneumoniae PCR Not Detected (NotDetected); Coronavirus 229E PCR Not Detected (NotDetected); Coronavirus CoV-2 (COVID19)PCR Not Detected (NotDetected); Coronavirus HKU1 PCR Not Detected (NotDetected); Coronavirus NL63 PCR DETECTED (NotDetected); Coronavirus OC43PCR Not Detected (NotDetected); Human Metapneumovirus PCR Not Detected (NotDetected); Influenza A PCR Not Detected (NotDetected); Influenza B PCR Not Detected (NotDetected); Mycoplasma pneumoniae PCR Not Detected (NotDetected); Parainfluenza Virus 1 PCR Not Detected (NotDetected); Parainfluenza Virus 2 PCR Not Detected (NotDetected); Parainfluenza Virus 3 PCR Not Detected (NotDetected); Parainfluenza Virus 4 PCR Not Detected (NotDetected); Respiratory Syncytial VirusPCR Not Detected (NotDetected); Rhinovirus/Enterovirus PCR Not Detected (NotDetected)
[2024-03-29] MEDS: ACETAMINOPHEN 1,000 MG/100 ML VIAL IV STA (14:13)
[2024-03-29] MEDS: POTASSIUM PHOS 3 MMOL/1 ML INFUSION IV STA (14:52)
[2024-03-29] MEDS: POTASSIUM PHOSPHATE 9 MMOL in SODIUM CHLORIDE 0.9% 250 ML IV ONE (15:08)
[2024-03-29 16:51] LABS: Appearance Urine Clear (Clear); Bacteria Urine Automated None Seen (None Seen); Bilirubin Urine Negative (Negative); Blood Urine Trace (Negative); Cast Urine Automated 0-2 /lpf (0-2); Color Urine Yellow; Epithelial Cell Urine Auto 0-2 /hpf (0-2); Glucose Urine UA Negative (Negative); Ketones Urine Negative (Negative); Leukocyte Esterase Urine Negative (Negative); Nitrite Urine Negative (Negative); Protein Urine Negative (Negative); Specific Gravity Urine 1.014 (1.000-1.030); Urobilinogen Urine Negative (Negative); WBC Urine Automated 0-5 /hpf (0-5)
--- NOTE | 2024-03-29 17:07 | History & Physical Report ---
Date of Service March 29, 2024 Assessment & Plan (1) Hypophosphatemia: (2) Coronavirus infection: (3) Primary hyperparathyroidism: (4) Paraplegia, unspecified: Ignacia Retana is a 48-year-old male with PMH of MS, paraplegia, fecal incontinence, hypophosphatemia, pressure ulcers, DVT, and CKD. He presented via EMS on 03/29 for generalized weakness. Patient is nonambulatory at baseline due to his MS. Around midnight last night, he noticed weakness, "thumping" headache, and fever. He did not take his temperature at home, but believes he might of had fever, chills, and bodyaches. He also endorses dry cough and congestion that began last night. #Coronavirus Coronavirus (+) on arrival Nonhypoxic on arrival Respiratory isolation precautions Supportive care Acetaminophen as needed for pain/fever Guaifenesin BID for cough #Hypophosphatemia Phosphorus low at 1.2 on arrival Potassium phosphate 9mmol IV x 2 ? Secondary to primary hyperparathyroidism and not taking Cinacalcet PTH ordered, pending Trend phosphorus level # Primary hyperparathyroidism; hypercalcemia Mild; calcium 10.9 on arrival NSS 2000 mL IV x 1 Continue IVF resuscitation with NSS ? Cinacalcet fell off patient's med list Per patient, he has not been taking it over the past several days due to its side effects: Nausea and dry heaving He is amenable to restarting it while inpatient Cinacalcet 30 mg p.o. BID IV antiemetics as needed # MS/paraplegia Noted; chronic left-sided weakness Disposition: Obs - admit to [facility] Full code Regular diet VTE PPx: Continue Eliquis History of Present Illness Chief Complaint: Weakness Primary Care Provider: Louis Hale Mazin is a 48-year-old male with PMH of MS, paraplegia, fecal incontinence, hypophosphatemia, pressure ulcers, DVT, and CKD. He presented via EMS on 03/29 for generalized weakness. Patient is nonambulatory at baseline due to his MS. Around midnight last night, he noticed weakness, "thumping" headache, and fever. He did not take his temperature at home, but believes he might of had fever, chills, and bodyaches. He also endorses dry cough and congestion that began last night. He does not believe he has been around any sick contacts recently. No prior history of coronavirus infections. He has not had any vaccinations or boosters. Patient did not take his regular morning medicine today; he manages his own medicine at home. Of note, the patient has been out of his Prozac for the past month, but wants to restart it in the hospital. He also reports he has not been taking his Cinacalcet over the past several days, as it causes nausea and dry heaving at home; he is amenable to restarting it with IV antiemetics as needed. Patient not on supplemental oxygen at baseline or CPAP at night. He takes Eliquis for history of a DVT in his left calf. While he does not smoke, he has been around secondhand cigarette smoking all of his life. He does endorse occasional alcohol use, but denies history of alcohol withdrawal. His last drink was yesterday around noon time; reports he drank 1 beer. Patient's vitals are stable at time of admission. ED course: NSS 1000 L IV x 2 Acetaminophen 1000 mg IV Famotidine 20 mg IV Zofran 4 mg IV Potassium phosphate 9 mmol IV ROS: Patient endorses fever, chills, night-sweats, body aches, dizziness, lightheadedness, PIMENTEL, blurry vision (chronic; attributes to MS), dry cough, chest palpitations, nausea, abd cramping, dry heaving, diarrhea / bowel incontinence, Patient denies chest pain, SOB, pleuritic CP, hemoptysis, vomiting, burning with urination, or blood in the urine/stool. Allergies Allergy/AdvReac Type Severity Reaction Status Date / Time aspirin Allergy Severe airway Verified 03/29/24 16:58 edema; hives Home Medications Medication Instructions Recorded Confirmed Type apixaban 5 mg tablet (Eliquis) 5 mg PO BID 03/04/23 03/29/24 History fluoxetine 20 mg capsule 20 mg PO HS 03/04/23 03/29/24 History acetaminophen 500 mg tablet 1,000 mg PO Q6H PRN PAIN/FEVER 05/26/23 03/29/24 History (Tylenol Extra Strength) gabapentin 100 mg capsule 100 mg PO TID #90 caps 05/31/23 03/29/24 Rx Past Med/Surg History Problem List (Updated 03/29/24 @ 17:59 by Nigel Rodriguez PA-C) Primary hyperparathyroidism Coronavirus infection Hematuria (Acute) Positive blood cultures Vomiting (Acute) Skin ulcer of multiple sites of buttock, limited to breakdown of skin (Acute) Cellulitis of left leg (Acute) Acute hypotension (Acute) Pressure ulcer, stage 1 Hyperparathyroidism Chronic deep vein thrombosis (DVT) of distal vein of left lower extremity Diffuse abdominal pain (Acute) Vomiting and diarrhea (Acute) Elevated lactic acid level (Acute) Leukocytosis (Acute) Acute dehydration (Acute) Sinus pause Elevated lactic acid level (Acute) Leukocytosis (Acute) Nausea & vomiting (Acute) Abdominal pain, RUQ (Acute) Paraplegia, unspecified Sepsis Onychomycosis Cellulitis History of multiple sclerosis (Acute) Fecal incontinence (Acute) Anemia Hypophosphatemia Right ankle strain Osteoporosis Low vitamin D level CKD (chronic kidney disease) Unable to care for self (Acute) Lab test negative for COVID-19 virus (Acute) Current use of exterminator helper anticoagulation (Acute) Hematuria (Acute) Hypercalcemia Generalized weakness (Acute) Hypokalemia (Acute) Demyelinating disease Acute kidney injury Ambulatory dysfunction DVT (deep venous thrombosis) (Acute) H/O poor personal hygiene Muscle spasm of left lower extremity (Acute) Stool incontinence (Acute) Hypophosphatemia (Acute) Serum calcium elevated (Acute) Generalized weakness (Acute) Medical History Vitamin B12 deficiency Gallstones UTI (urinary tract infection) Staghorn calculus Hypercalcemia Primary hyperparathyroidism Left leg pain Weakness Multiple sclerosis exacerbation Obstructive uropathy 2/2 renal stone, caused RUBI, pt admitted for this and hypercalcemia 05/2018 Hypercalcemia Chronic pain syndrome Seizure disorder Many years ago may have had single episode, pt was never treated for this, no reoccurrence. Depression Multiple sclerosis Surgical History History of cystoscopy WITH STENT PLACEMENT 06/14/18 [facility] Family History Father Stroke Thyroid disorder Other Hypertension Kidney stones Social History Smoking Status: Never smoker Tobacco Type: Smokeless Tobacco (Dip or Chew) Cigarettes Per Day: 0; Second Hand Exposure: No; Do You Dip or Chew Tobacco: No; Hx Alcohol Use: Yes Alcohol type: beer Hx Substance Use: No Preferred Language: Czech Communication Ability: Effective Data Management Specialist Required: No Beliefs That Will Affect Care: None marital status: Current Living Situation: Parent Current Living Situation Comment: father and uncle current occupational status: disabled How many Children do You have: 2 Feels Safe at Home: Yes Assistive Devices: Brace/Splint/Immobilizer, Hospital Bed, Walker and Wheelchair Review of Systems Review of Systems: See HPI above Physical Exam Physical Exam: General: no acute distress; pleasant affect; non-toxic appearing; well- nourished; cooperative; SpO2 95% on RA HEENT: normocephalic, atraumatic; no scleral icterus; PERRLA; vision and hearing grossly intact Neck: supple; trachea midline Skin: warm, dry without signs of tenting; no cyanosis; no rashes, bruising, lesions, or erythema noted CV: chest wall NTP; RRR; S1/S2 normal; no murmurs/rubs/gallops; pulses intact and symmetric at radial, DP, and PT Lungs: no acute respiratory distress; hacking dry cough with deep breaths; symmetrical chest wall expansion; clear breath sounds across all lung gama w/o adventitious sounds; no wheezing ABD: Soft, NTP; BS present; no rebound/guarding; no distention MSK: no tics or fasciculations; no edema noted in the LEs b/l, nonerythematous Neuro: A&Ox3; normal mood and affect; fluent speech; patient is able to wiggle his right toes, but no movement in his left lower extremity; he does report that sensation is intact in the lower extremities bilaterally Results & Data Results & Data Vital Signs (Past 12 Hours) Vital Signs Temp Pulse Pulse Resp BP BP Pulse Ox 03/29/24 17:00 96 H 21 95 03/29/24 16:57 110 H 03/29/24 16:10 90 19 139/80 93 03/29/24 16:03 93 H 18 92 03/29/24 16:00 139/80 03/29/24 15:36 98 H 18 03/29/24 15:12 93 H 20 03/29/24 15:00 96 H 21 03/29/24 14:33 101 H 17 03/29/24 14:30 143/86 H 03/29/24 14:21 105 H 22 03/29/24 14:20 144/89 H 03/29/24 13:51 90 19 97 03/29/24 13:30 89 19 151/86 H 96 03/29/24 13:15 104 H 15 03/29/24 13:00 91 H 19 153/94 H 95 03/29/24 12:51 100 H 20 96 03/29/24 12:51 99 H 03/29/24 12:40 37.5 C 100 H 15 159/99 H 95 O2 Del Method 03/29/24 17:00 Room Air 03/29/24 16:57 03/29/24 16:10 Room Air 03/29/24 16:03 Room Air 03/29/24 16:00 03/29/24 15:36 03/29/24 15:12 03/29/24 15:00 03/29/24 14:33 03/29/24 14:30 03/29/24 14:21 03/29/24 14:20 03/29/24 13:51 Room Air 03/29/24 13:30 Room Air 03/29/24 13:15 03/29/24 13:00 Room Air 03/29/24 12:51 Room Air 03/29/24 12:51 03/29/24 12:40 Room Air Laboratory Results Abnormal lab results 03/29/24 03/29/24 03/29/24 Range/Units 12:45 13:09 13:14 Neut # (Auto) 8.30 H (1.40-6.50) K/uL Lymph # (Auto) 0.50 L (1.20-3.40) K/uL [place] # (Auto) 0.68 H (0.11-0.59) K/uL POC Total CO2 22 L (24-31) mmol/L POC Anion Gap 14.0 L (16-25) mmol/L BUN/Creatinine Ratio 7.4 L (10-20) Glucose 112 H (70-99(Fasting)) mg/dl POC Glucose (other) 104 H (70-99) mg/dl Calcium 10.9 H (8.6-10.3) mg/dl POC Ioniz Calcium Camille 1.36 H (1.12-1.32) mmol/l Phosphorus 1.2 L* (2.5-4.9) mg/dl Total Creatine Kinase 27 L (30-223) U/L Urine Blood (Negative) Urine RBC (Auto) (0-2) /hpf Coronavirus NL63 (PCR) DETECTED A (NotDetected) 03/29/24 Range/Units Unknown Neut # (Auto) (1.40-6.50) K/uL Lymph # (Auto) (1.20-3.40) K/uL [place] # (Auto) (0.11-0.59) K/uL POC Total CO2 (24-31) mmol/L POC Anion Gap (16-25) mmol/L BUN/Creatinine Ratio (10-20) Glucose (70-99(Fasting)) mg/dl POC Glucose (other) (70-99) mg/dl Calcium (8.6-10.3) mg/dl POC Ioniz Calcium Camille (1.12-1.32) mmol/l Phosphorus (2.5-4.9) mg/dl Total Creatine Kinase (30-223) U/L Urine Blood Trace H (Negative) Urine RBC (Auto) 3-5 H (0-2) /hpf Coronavirus NL63 (PCR) (NotDetected) Diagnostic Findings Chest X-Ray 03/29/24 12:56 XR chest 1V portable CLINICAL HISTORY: Chest pain, nonspecific COMPARISON STUDY: Chest radiograph September 14, 2023. FINDINGS: Lung volumes are normal. No consolidation is identified. 1 cm right midlung nodular density is present. There is no pneumothorax or pleural effusion. Cardiac size is normal. Mediastinal contours are normal. There is no evidence for pulmonary edema. IMPRESSION: 1. No definite acute cardiopulmonary findings. 2. 1 cm right midlung nodular density. This is likely artifactual. However, a mild infectious process or a pulmonary nodule cannot be excluded. PA and lateral chest radiographs are recommended for further evaluation. ACT 112: Negative or not required by law. Electronically signed by: Vinh Varela M.D. 03/29/2024 1:22 PM ECG Additional Comments: ECG revealed NSR at 96 bpm; QTc 434 Code Status & VTE Plan Code Status Full code VTE Prophylaxis Plan VTE Prophylaxis will be ordered: Yes PG Care Time/CCT Total # of Minutes Spent Total Time Spent with Patient: Total time spent is greater than 50% in coordination of care (as documented) at patient's floor/unit and/or counseling patient: C[place] [address] INT INP/OBS CARE MIN Patient Type Established History Comprehensive Exam Comprehensive Medical Decision Making High Complexity Diagnoses Hypophosphatemia E83.39 Coronavirus infection B34.2 Primary hyperparathyroidism E21.0 Paraplegia, unspecified G82.20
[2024-03-29] MEDS: guaiFENesin 600 MG TABCR PO STA (18:25)
[2024-03-29] MEDS: SODIUM CHLORIDE 0.9% 1,000 ML IV SCH (18:26)
--- NOTE | 2024-03-29 19:40 | XRay Report ---
Exam(s): XR CXR 2 VIEWS EXAM: XR Chest, 2 Views CLINICAL HISTORY: Reason for exam: 1cm right midlung nodular density. TECHNIQUE: Frontal and lateral views of the chest. COMPARISON: Chest radiograph On 03/29/2024 FINDINGS: Hardware: None. Lungs/pleura: Normal. No focal consolidation. No pleural effusion or pneumothorax. Heart/mediastinum: Normal. No cardiomegaly. Soft tissues: Unremarkable. Bones: No acute fracture. Upper abdomen: Normal. IMPRESSION: No acute disease identified. No nodular density seen. Electronically signed by: Natalya De La Vega M.D. 03/29/24 19:38 PM
[2024-03-29] MEDS: KETOROLAC TROMETHAMINE 15 MG/ML VIAL IV ONE (20:04)
[2024-03-29] MEDS ORDERED: PROMETHAZINE HCL 25 MG TAB PO PRN (20:32)
[2024-03-29] MEDS ORDERED: MELATONIN 3 MG TAB PO PRN (20:32)
[2024-03-29] MEDS: GABAPENTIN 100 MG CAP PO SCH (21:55)
[2024-03-29] MEDS: GABAPENTIN 100 MG CAP PO STA (21:56)
[2024-03-29] MEDS: APIXABAN 5 MG TABLET PO SCH (21:56)
[2024-03-29] MEDS: CINACALCET HCL 30 MG TAB PO SCH (21:56)
[2024-03-29] MEDS: FLUoxetine HCL 20 MG CAP PO SCH (21:56)
[2024-03-30] MEDS: ACETAMINOPHEN 325 MG TAB PO PRN (02:02)
[2024-03-30 07:51] LABS: Hematocrit (blood only) 40.3 % (42.0-52.0); Hemoglobin 13.7 g/dl (14.0-18.0); Mean Corpuscular Hemoglobin 32.3 pg (25.0-34.0); Mean Platelet Volume 9.7 fL (9.4-12.4); Platelet Count 157 K/uL (130-400); RDW Coefficient of Variation 12.3 % (11.5-14.5); RDW Standard Deviation 43.3 fL (36.4-46.3); Red Blood Count 4.24 M/uL (4.70-6.10); White Blood Count 5.22 K/ul (4.8-10.8)
[2024-03-30 08:04] LABS: BUN Creatinine Ratio 6.5 (10-20); Calcium 8.9 mg/dl (8.6-10.3); Creatinine Clr Calc Pharmacy 90.7 ml/min; Phosphorus 1.7 mg/dl (2.5-4.9); Potassium 3.8 mmol/L (3.5-5.1)
[2024-03-30] MEDS: guaiFENesin 600 MG TABCR PO SCH (08:38)
[2024-03-30] MEDS: ONDANSETRON INJ 2 MG/ML 2 ML VIAL IV PRN (08:52)
--- NOTE | 2024-03-30 09:30 | Electrocardiogram Report ---
Test Reason : Blood Pressure : */* mmHG Vent. Rate : 96 BPM Atrial Rate : 96 BPM P-R Int : 166 ms QRS Dur : 88 ms QT Int : 344 ms P-R-T Axes : 56 44 56 degrees QTcB Int : 434 ms Normal sinus rhythm Poor R wave progression, consider anterior PR vs. lead placement vs. LVH Abnormal ECG When compared with ECG of 12-Nov-2023 03:15, No significant change was found Confirmed by Pola Flynn ([id number]) on 03/30/2024 9:30:14 AM Referred By: REFERRED SELF Confirmed By: Pola Flynn
--- NOTE | 2024-03-30 10:56 | Medical Student Progress Note ---
Date of Service March 30, 2024 Assessment & Plan (1) Coronavirus infection: (2) Hypophosphatemia: (3) Primary hyperparathyroidism: (4) Paraplegia, unspecified: Plan Mazin is a 48-year-old male with PMH of MS, paraplegia, fecal incontinence, hypophosphatemia, pressure ulcers, DVT, and CKD. He presented via EMS on 03/29 for generalized weakness. Patient is nonambulatory at baseline due to his MS. Around midnight last night, he noticed weakness, "thumping" headache, and fever. He did not take his temperature at home, but believes he might of had fever, chills, and bodyaches. He also endorses dry cough and congestion that began last night. #Coronavirus -Coronavirus (+) on arrival -Acetaminophen as needed for pain/fever -Guaifenesin BID for cough -mildly tachy and hypertensive, otherwise vitals including O2 sat and exam reassuring #Hypophosphatemia -Phosphorus low at 1.2 on arrival, 1.7 today (03/30) -Potassium phosphate 9mmol IV x 2 -likely 2/2 primary hyperparathyroidism and not taking Cinacalcet -PTH ordered, pending -continue trending phosphorus # Primary hyperparathyroidism; hypercalcemia -Mild; calcium 10.9 on arrival, 8.9 today (03/30) -NSS 2000 mL IV x 1 -Continue IVF resuscitation with NSS -Per patient, he has not been taking Cinacalcet it over the past several days due to its side effects: Nausea and dry heaving -Cinacalcet 30 mg p.o. BID -IV antiemetics as needed #MS/paraplegia -spastic paralysis b/l lower legs; bowel incontinence at baseline. has a home health aide -states he doesn't have a neurologist and would like to be set up with [facility], was seeing [facility] neurology several years ago but says they no longer take his insurance. Has not been on DMT for several years #nail discoloration -suggestive of onychomycosis -follow up with podiatry for nail care Disposition: Obs - admit to [facility] Full code Regular diet VTE PPx: Continue Eliquis Admission and Anticipated Discharge Date Admission Date: March 29, 2024 Supervising Attestation I personally examined the patient and verified all toribio points of history and exam, discussed case, and agree with decision making with Dr Lira and Gabrielle Flowers MS4 Main complaint is neuropathic pain in his feetnotes it is quite severe right now. Vitals noted, in general he is awake and alert fatigued. Breathing unlabored no accessory muscle use good effort. Skin without rashes pallor or icterus. Neuro with Chronic appearing deficits. Viral infectionsupportive care. Fortunately quite stable. Feels very lousy though, however, continue supportive care. Neuropathic painon a very low-dose of gabapentinincrease and follow. [id number] Tylenol and Toradol for now. Anticoagulated. Otherwise as above. Subjective Today, endorsing pain from his head to his feet. normally has pain from L knee to foot but today having pain b/l legs and feet. says he feels SOB with talking Review of Systems Review of Systems: as per HPI Physical Exam Respiratory: normal respiratory effort, lungs clear to auscultation endorses subjective feelings of SOB with talking but has no change in vitals Cardiovascular: RRR, no murmur, no edema Gastrointestinal (Abdomen): normal bowel sounds, soft, nontender, no hepatosplenomegaly Skin: + nails discolored suggestive on onychomycosis, b/l great toes Neurologic: b/l legs increased tone, joint contractures. spastic paralysis from MS - wheelchair bound at home Results & Data Vital Signs (Past 12 Hours) Vital Signs Temp Pulse Resp BP Pulse Ox O2 Del Method 03/30/24 07:55 Room Air 03/30/24 07:32 36.7 C 78 18 157/96 H 95 Room Air Laboratory Results Laboratory Results - last 24 hr 03/29/24 03/29/24 03/29/24 12:45 13:09 13:14 WBC 9.61 RBC 5.32 Hgb 17.5 POC Hgb 16.7 Hct 50.1 POC Hct 49 MCV 94.2 MCH 32.9 MCHC 34.9 RDW Std Deviation 42.2 RDW Coeff of Bret 12.2 Plt Count 213 MPV 9.9 Immature Gran % (Auto) 0.4 Neut % (Auto) 86.4 Lymph % (Auto) 5.2 Ray % (Auto) 7.1 Eos % (Auto) 0.5 Baso % (Auto) 0.4 Neut # (Auto) 8.30 H Lymph # (Auto) 0.50 L Ray # (Auto) 0.68 H Eos # (Auto) 0.05 Baso # (Auto) 0.04 Immature Gran # (Auto) 0.04 PT 10.0 INR 0.9 POC Sodium 139 Sodium 138 POC Potassium 4.2 Potassium 4.0 POC Chloride 107 Chloride 107 Carbon Dioxide 23 POC Total CO2 22 L Anion Gap 8 POC Anion Gap 14.0 L POC BUN 9 BUN 9 Creatinine 1.21 POC Creatinine 1.2 Est Cr Clr Drug Dosing 92.1 eGFR 72.94 BUN/Creatinine Ratio 7.4 L Glucose 112 H POC Glucose (other) 104 H Calcium 10.9 H POC Ioniz Calcium Camille 1.36 H Phosphorus 1.2 L* Magnesium 2.0 Total Bilirubin 0.6 AST 28 ALT 51 Alkaline Phosphatase 69 Total Creatine Kinase 27 L Troponin I High Sens 2.6 Total Protein 7.2 Albumin 4.3 Globulin 2.9 Albumin/Globulin Ratio 1.5 Lipase 46 Procalcitonin 0.07 PTH Intact Urine Color Urine Appearance Urine pH Ur Specific [place] Urine Protein Urine Glucose (UA) Urine Ketones Urine Blood Urine Nitrite Urine Bilirubin Urine Urobilinogen Ur Leukocyte Esterase Urine WBC (Auto) Urine RBC (Auto) U Hyaline Cast (Auto) U Epithel Cells (Auto) Urine Bacteria (Auto) Adenovirus (PCR) Not Detected B. pertussis DNA (PCR) Not Detected B.parapertussis DNA PCR Not Detected C. pneumoniae DNA (PCR) Not Detected Coronavirus OC43 (PCR) Not Detected Coronavirus HKU1 (PCR) Not Detected Coronavirus 229E (PCR) Not Detected SARS-CoV-2 (PCR) Not Detected Coronavirus NL63 (PCR) DETECTED A Human Metapneumovir PCR Not Detected Influenza Type A (PCR) Not Detected Influenza Type B (PCR) Not Detected M. pneumoniae (PCR) Not Detected Parainfluenza 1 (PCR) Not Detected Parainfluenza 2 (PCR) Not Detected Parainfluenza 3 (PCR) Not Detected Parainfluenza 4 (PCR) Not Detected RSV (PCR) Not Detected Entero/Rhino (PCR) Not Detected 03/29/24 03/29/24 03/30/24 18:17 Unknown 06:56 WBC 5.22 RBC 4.24 L Hgb 13.7 L D POC Hgb Hct 40.3 L POC Hct MCV 95.0 MCH 32.3 MCHC 34.0 RDW Std Deviation 43.3 RDW Coeff of Bret 12.3 Plt Count 157 MPV 9.7 Immature Gran % (Auto) Neut % (Auto) Lymph % (Auto) Ray % (Auto) Eos % (Auto) Baso % (Auto) Neut # (Auto) Lymph # (Auto) Ray # (Auto) Eos # (Auto) Baso # (Auto) Immature Gran # (Auto) PT INR POC Sodium Sodium 139 POC Potassium Potassium 3.8 POC Chloride Chloride 113 H Carbon Dioxide 21 POC Total CO2 Anion Gap 5 POC Anion Gap POC BUN BUN 8 Creatinine 1.23 POC Creatinine Est Cr Clr Drug Dosing 90.7 eGFR 71.52 BUN/Creatinine Ratio 6.5 L Glucose 121 H POC Glucose (other) Calcium 8.9 D POC Ioniz Calcium Camille Phosphorus 1.7 L Magnesium Total Bilirubin AST ALT Alkaline Phosphatase Total Creatine Kinase Troponin I High Sens Total Protein Albumin Globulin Albumin/Globulin Ratio Lipase Procalcitonin PTH Intact 134.8 H Urine Color Yellow Urine Appearance Clear Urine pH 7.0 Ur Specific [place] 1.014 Urine Protein Negative Urine Glucose (UA) Negative Urine Ketones Negative Urine Blood Trace H Urine Nitrite Negative Urine Bilirubin Negative Urine Urobilinogen Negative Ur Leukocyte Esterase Negative Urine WBC (Auto) 0-5 Urine RBC (Auto) 3-5 H U Hyaline Cast (Auto) 0-2 U Epithel Cells (Auto) 0-2 Urine Bacteria (Auto) None Seen Adenovirus (PCR) B. pertussis DNA (PCR) B.parapertussis DNA PCR C. pneumoniae DNA (PCR) Coronavirus OC43 (PCR) Coronavirus HKU1 (PCR) Coronavirus 229E (PCR) SARS-CoV-2 (PCR) Coronavirus NL63 (PCR) Human Metapneumovir PCR Influenza Type A (PCR) Influenza Type B (PCR) M. pneumoniae (PCR) Parainfluenza 1 (PCR) Parainfluenza 2 (PCR) Parainfluenza 3 (PCR) Parainfluenza 4 (PCR) RSV (PCR) Entero/Rhino (PCR)
[2024-03-30] MEDS ORDERED: ACETAMINOPHEN 500 MG TAB PO PRN (11:01)
[2024-03-30] MEDS: KETOROLAC TROMETHAMINE 15 MG/ML VIAL IV ONE (11:36)
[2024-03-30] MEDS: COUGH DROP (SUGAR FREE) LOZ 24 LOZ/1 BOX BUCCAL ONE ×2 (11:41→22:07)
[2024-03-30] MEDS: GABAPENTIN 100 MG CAP PO STA (16:02)
[2024-03-30] MEDS: KETOROLAC TROMETHAMINE 15 MG/ML VIAL IV SCH (16:03)
--- NOTE | 2024-03-30 16:44 | Billing Data ---
Date of Service March 30, 2024 Coding Level of Care Code 21414 SUB INP/OBS CARE MIN
[2024-03-30] MEDS: ACETAMINOPHEN 500 MG TAB PO SCH (20:08)
[2024-03-30] MEDS: GABAPENTIN 300 MG CAP PO SCH (20:14)
--- NOTE | 2024-03-31 12:10 | Medical Student Progress Note ---
Date of Service March 31, 2024 Assessment & Plan (1) Coronavirus infection: (2) Hypophosphatemia: (3) Primary hyperparathyroidism: (4) Paraplegia, unspecified: Plan Mazin is a 48-year-old male with PMH of MS, paraplegia, fecal incontinence, hypophosphatemia, pressure ulcers, DVT, and CKD. He presented via EMS on 03/29 for generalized weakness. Patient is nonambulatory at baseline due to his MS. Around midnight last night, he noticed weakness, "thumping" headache, and fever. He did not take his temperature at home, but believes he might of had fever, chills, and bodyaches. He also endorses dry cough and congestion that began last night. #Coronavirus -Coronavirus (+) on arrival -Acetaminophen as needed for pain/fever -Guaifenesin BID for cough -exam and vitals reassuring #Hypophosphatemia -Phosphorus low at 1.2 on arrival, improving -Potassium phosphate 9mmol IV x 2 -likely 2/2 primary hyperparathyroidism and not taking Cinacalcet -PTH ordered, 134.8 -continue trending phosphorus # Primary hyperparathyroidism; hypercalcemia -Mild; calcium 10.9 on arrival, improving -NSS 2000 mL IV x 1 -Continue IVF resuscitation with NSS -Per patient, he has not been taking Cinacalcet it over the past several days due to its side effects: Nausea and dry heaving -Cinacalcet 30 mg p.o. BID -IV antiemetics as needed #MS/paraplegia -spastic paralysis b/l lower legs; bowel incontinence at baseline. has a home health aide -states he doesn't have a neurologist and would like to be set up with [facility], was seeing [facility] neurology several years ago but says they no longer take his insurance. Has not been on DMT for several years #nail discoloration -suggestive of onychomycosis -follow up with podiatry for nail care Disposition: Obs - admit to [facility] Full code Regular diet VTE PPx: Continue Eliquis Admission and Anticipated Discharge Date Admission Date: March 29, 2024 Supervising Attestation I personally examined the patient and verified all toribio points of history and exam, discussed case, and agree with decision making with Dr Lira and Gabrielle Flowers MS4 still just feeling weak and lousy. Vitals noted, in general he is awake and alert fatigued. Breathing unlabored no accessory muscle use good effort. Skin without rashes pallor or icterus. Neuro with Chronic appearing deficits. Viral infectionsupportive care. Fortunately quite stable. continues to feel too unwell to feel safe at home, however, so continue supportive care. Neuropathic painwas on a very low-dose of gabapentinincrease and follow. [id number] Tylenol and Toradol for now. Anticoagulated. Otherwise as above. Subjective feeling better today but still feels too weak to go home Results & Data Vital Signs (Past 12 Hours) Vital Signs Temp Pulse Resp BP Pulse Ox O2 Del Method 03/31/24 07:00 36.5 C 74 18 148/87 H 96 Room Air
--- NOTE | 2024-03-31 13:27 | Billing Data ---
Date of Service March 31, 2024 Coding Level of Care Code 56162 SUB INP/OBS CARE
[2024-03-31] MEDS: COUGH DROP (SUGAR FREE) LOZ 24 LOZ/1 BOX BUCCAL ONE (22:15)
[2024-03-31 23:14] VITALS: O2SAT 97
[2024-04-01 08:12] VITALS: RESP 18; TEMP 97.7
[2024-04-01 08:46] LABS: Basophils # (auto) 0.03 K/uL (0.00-0.20); Basophils % (auto) 0.4 %; Eosinophils # (auto) 0.19 K/uL (0.00-0.50); Eosinophils % (auto) 2.8 %; Hematocrit (blood only) 43.5 % (42.0-52.0); Immature Granulocytes # (auto) 0.06 K/uL (0.01-0.20); Immature Granulocytes % (auto) 0.9 %; Lymphocytes # (auto) 1.05 K/uL (1.20-3.40); Lymphocytes % (auto) 15.6 %; Mean Corpuscular Hemoglobin 32.5 pg (25.0-34.0); Mean Corpuscular Hgb Conc 34.5 g/dL (32.0-36.0); Mean Corpuscular Volume 94.4 fL (80.0-100.0); Mean Platelet Volume 9.7 fL (9.4-12.4); Monocytes # (auto) 0.68 K/uL (0.11-0.59); Monocytes % (auto) 10.1 %; Neutrophils # (auto) 4.71 K/uL (1.40-6.50); Neutrophils % (auto) 70.2 %; Platelet Count 164 K/uL (130-400); RDW Coefficient of Variation 12.2 % (11.5-14.5); RDW Standard Deviation 42.3 fL (36.4-46.3); Red Blood Count 4.61 M/uL (4.70-6.10); White Blood Count 6.72 K/ul (4.8-10.8)
[2024-04-01 08:51] LABS: BUN Creatinine Ratio 14.6 (10-20); Calcium 8.3 mg/dl (8.6-10.3); Creatinine Clr Calc Pharmacy 90.7 ml/min; Potassium 3.9 mmol/L (3.5-5.1)
--- NOTE | 2024-04-01 08:56 | Med Student Discharge Summary ---
Date of Service April 01, 2024 Admission HPI Per Admitting Provider Mazin is a 48-year-old male with PMH of MS, paraplegia, fecal incontinence, hypophosphatemia, pressure ulcers, DVT, and CKD. He presented via EMS on 03/29 for generalized weakness. Patient is nonambulatory at baseline due to his MS. Around midnight last night, he noticed weakness, "thumping" headache, and fever. He did not take his temperature at home, but believes he might of had fever, chills, and bodyaches. He also endorses dry cough and congestion that began last night. He does not believe he has been around any sick contacts recently. No prior history of coronavirus infections. He has not had any vaccinations or boosters. Patient did not take his regular morning medicine today; he manages his own medicine at home. Of note, the patient has been out of his Prozac for the past month, but wants to restart it in the hospital. He also reports he has not been taking his Cinacalcet over the past several days, as it causes nausea and dry heaving at home; he is amenable to restarting it with IV antiemetics as needed. Patient not on supplemental oxygen at baseline or CPAP at night. He takes Eliquis for history of a DVT in his left calf. While he does not smoke, he has been around secondhand cigarette smoking all of his life. He does endorse occasional alcohol use, but denies history of alcohol withdrawal. His last drink was yesterday around noon time; reports he drank 1 beer. Patient's vitals are stable at time of admission. ED course: NSS 1000 L IV x 2 Acetaminophen 1000 mg IV Famotidine 20 mg IV Zofran 4 mg IV Potassium phosphate 9 mmol IV ROS: Patient endorses fever, chills, night-sweats, body aches, dizziness, lightheadedness, PIMENTEL, blurry vision (chronic; attributes to MS), dry cough, chest palpitations, nausea, abd cramping, dry heaving, diarrhea / bowel incontinence, Patient denies chest pain, SOB, pleuritic CP, hemoptysis, vomiting, burning with urination, or blood in the urine/stool. Admission Exam (Per Admitting) Constitutional General: no acute distress; pleasant affect; non-toxic appearing; well- nourished; cooperative; SpO2 95% on RA HEENT: normocephalic, atraumatic; no scleral icterus; PERRLA; vision and hearing grossly intact Neck: supple; trachea midline Skin: warm, dry without signs of tenting; no cyanosis; no rashes, bruising, lesions, or erythema noted CV: chest wall NTP; RRR; S1/S2 normal; no murmurs/rubs/gallops; pulses intact and symmetric at radial, DP, and PT Lungs: no acute respiratory distress; hacking dry cough with deep breaths; symmetrical chest wall expansion; clear breath sounds across all lung gama w/o adventitious sounds; no wheezing ABD: Soft, NTP; BS present; no rebound/guarding; no distention MSK: no tics or fasciculations; no edema noted in the LEs b/l, nonerythematous Neuro: A&Ox3; normal mood and affect; fluent speech; patient is able to wiggle his right toes, but no movement in his left lower extremity; he does report that sensation is intact in the lower extremities bilaterally Discharge Exam Constitutional well appearing, comfortable, pleasant Skin b/l toe nail discoloratoin suggestive of onychomycosis Discharge Data Consultations 03/29/24 16:43 ED Decision to Admit Stat Hospital Course (1) Coronavirus infection: (2) Hypophosphatemia: (3) Primary hyperparathyroidism: (4) Paraplegia, unspecified: Ignacia Retana is a 48-year-old male with PMH of MS, paraplegia, fecal incontinence, hypophosphatemia, pressure ulcers, DVT, and CKD. He presented via EMS on 03/29 for generalized weakness. Patient is nonambulatory at baseline due to his MS. Around midnight last night, he noticed weakness, "thumping" headache, and fever. He did not take his temperature at home, but believes he might of had fever, chills, and bodyaches. He also endorses dry cough and congestion that began last night. #Coronavirus -Coronavirus (+) on arrival -Acetaminophen as needed for pain/fever -Guaifenesin BID for cough -exam and vitals reassuring -f/u with PCP #Hypophosphatemia -Phosphorus low at 1.2 on arrival, improving -Potassium phosphate 9mmol IV x 2 -likely 2/2 primary hyperparathyroidism and not taking Cinacalcet -PTH ordered, 134.8 -resolved, f/u with PCP # Primary hyperparathyroidism; hypercalcemia -Mild; calcium 10.9 on arrival, improving -NSS 2000 mL IV x 1 -Continue IVF resuscitation with NSS -Per patient, he has not been taking Cinacalcet it over the past several days due to its side effects: Nausea and dry heaving -continue home Cinacalcet #MS/paraplegia -spastic paralysis b/l lower legs; bowel incontinence at baseline. has a home health aide -states he doesn't have a neurologist and would like to be set up with [facility], was seeing [facility] neurology several years ago but says they no longer take his insurance. Has not been on DMT for several years #nail discoloration -suggestive of onychomycosis -follow up with podiatry for nail care Disposition: Obs - admit to [facility] Full code Regular diet VTE PPx: Continue Eliquis Discharge Plan Discharge Items Patient Disposition: Home - Self-Care Reason For Visit: CORONAVIRUS, HYPOPHOSPHATEMIA Discharge Diagnosis: coronavirus Activity: Resume your previous activity Non-emergency contact: Primary Care Provider Call non-emergency contact if: you have any medication questions, your pain is concerning for you and your temperature is above 101.5 Follow-up/Referrals: [facility] Neu[facility] [Provider Group] Louis Hale [Primary Care Provider] - 04/07/24 1:00 pm () Diet: Regular Addtl Attending Provider Instructions: You were admitted to the hospital for Coronavirus. A discharge summary will be sent to your primary care physician to ensure continuity of care. Please bring this discharge summary with you to your next office appointment so that your provider can review it at that time. Follow-up appointments: * Make a follow-up appointment with your PCP within the next week. It is very important that you follow up with them shortly after discharge from the hospital. * We have requested an appointment with Neurology. Their addres is [address], [place] [address]. Their number is [phone]. * Keep all your follow-up appointments as already scheduled. If you cannot make an appointment, notify your provider. Medications: Your medication list has been reviewed and reconciled upon discharge to ensure accuracy and continuity of care. An updated list of all your medications is included with your hospital discharge paperwork. Please review this list closely, and make note of any changes. * We increased your gabapentin from 100mg three times a day, to 300mg three times a day. This change was sent to your pharmacy. * If you have any issues filling these prescriptions, please call [phone] and ask to leave a message for Dr. Skinner. * Take your medications as instructed; do not skip a dose of your medicines. Make sure all of your doctors know every medicine you are taking (including [id number] medicines, vitamins, and supplements). Call your primary care provider before taking any new medicines (including over- the-counter medicines, vitamins, and supplements), because some of these may interact with your current medications, or may make your symptoms worse. Tell your primary care provider if you cannot afford your medications. CONTACT YOUR PRIMARY CARE PROVIDER if you experience any of the following: * Worsening of symptoms * Fever, chills, or fatigue * Difficulty following your treatment plan, or difficulty taking medications CALL 911 OR GO TO THE EMERGENCY DEPARTMENT if you experience any of the following: * Sudden, severe abdominal pain or nausea/vomiting * Severe chest pain, or chest pain that radiates (moves) to your jaw or arm * Sudden, severe shortness of breath or difficulty breathing Thank you for allowing us to participate in your care. Pending Studies at Discharge: No Stand-Alone Forms: My [facility], Smoking Cessation Medications and DC Order Prescriptions: Continued fluoxetine 20 mg capsule 20 mg PO HS Rx Instructions: PATIENT CURRENTLY RAN OUT Eliquis 5 mg tablet 5 mg PO BID acetaminophen [Tylenol Extra Strength] 500 mg Tablet 1,000 mg PO Q6H PRN (Reason: PAIN/FEVER) Changed gabapentin 100 mg Capsule 300 mg PO TID 30 Days Qty: 270 1RF Discharge Orders: Discharge Order (Routine); Ordered 04/01/24 Ordered By: Eris Skinner Admission Data Admit Date/Time: 03/29/24 17:42 Attending Provider: Dayo Anderson Admit Provider: Jean Chau Primary Care Provider: Louis Hale Other Providers: Jean Chau Supervising Attestation I personally examined the patient and verified all toribio points of history and exam, discussed case, and agree with decision making with Dr Skinner and Gabrielle Flowers MS4 feeling better feels up to going home Vitals noted, in general he is awake and alert nad. Breathing unlabored no accessory muscle use good effort. Skin without rashes pallor or icterus. Neuro with Chronic appearing deficits. Viral infectionsupportive care. Fortunately quite stable. was in the hospital for several days largely because of feeling too unwell to feel safe at homeshe is now improved. Safe/stable for home. Neuropathic painwas on a very low-dose of gabapentin This was increased to 300 mg 3 times dailywill continue this for now. Discussed that this could continue to be titrated as an outpatient. MSchronic, at current baseline. Asked for referral to neurologydiscussed that he is at risk of being dismissed from the practice due to no-shows; he noted difficulty with transportation issuesI empathized with this, but implored him to call 24 hours ahead of time to cancel or reschedule if he cannot make an appointment, given that he already is not able to see [facility] and if he were to be dismissed from [facility], he would not have any local neurology he could follow-up with. nurse navigator setting up appointment Anticoagulated. Otherwise as above.
--- NOTE | 2024-04-01 13:50 | Billing Data ---
Date of Service April 01, 2024 Coding Level of Care Code 99001 IN/OBS DISCH 30 MIN/LESS
[2024-04-01 13:59] VITALS: BP 139/80; PULSE 81
== END 2024-04-01 15:24 | disposition home or self-care (01) ==
LOC: ED 12:25 → 3W 12:25 → SUATTDRO 17:42 → 3W 19:55